=== PATIENT | female | born 1940 | race Caucasian/White ===

== ENCOUNTER 2017-09-25 08:08 | Outpatient (RCR) | payer MEDICARE, OTHER, SELFPAY ==
[2017-09-25 08:54] LABS: AST(SGOT) 23 U/L (15-37); Alanine Aminotransfer ALT/SGPT 28 U/L (13-56); Albumin, Serum 3.4 g/dL (3.2-5.0); Alkaline Phosphatase 61 U/L (45-117); Bilirubin, Direct 0.13 mg/dL (0.00-0.30); Cholesterol 127 mg/dL (200); Globulin 3.4 g/dL (2.2-4.2); High Density Lipoprotein 52 mg/dL; Protein, Total 6.8 g/dL (6.4-8.2); Triglycerides 181 mg/dL; Very Low Density Lipoprotein 36 mg/dL (5-40)
== END 2017-09-25 09:00 | disposition home or self-care (01) ==
LOC: LAB 08:08
PROVIDERS: Family Provider Family Medicine; PCP Family Medicine; Visit Provider Internal Medicine Cardiovascular Disease
DX: E78.5 Hyperlipidemia, unspecified (principal); Z79.899 Other long term (current) drug therapy
CPT/HCPCS: 36415; 80061; 80076

== ENCOUNTER → 2018-04-02 07:56 | Outpatient (CLI) | payer MEDICARE, OTHER, SELFPAY ==
[2018-04-02 09:03] LABS: AST(SGOT) 22 U/L (15-37); Alanine Aminotransfer ALT/SGPT 29 U/L (13-56); Albumin, Serum 3.4 g/dL (3.2-5.0); Alkaline Phosphatase 55 U/L (45-117); Bilirubin, Direct 0.14 mg/dL (0.00-0.30); Cholesterol 119 mg/dL (200); Globulin 3.1 g/dL (2.2-4.2); High Density Lipoprotein 54 mg/dL; Protein, Total 6.5 g/dL (6.4-8.2); Triglycerides 173 mg/dL; Very Low Density Lipoprotein 35 mg/dL (5-40)
== END ==
PROVIDERS: Family Provider Family Medicine; PCP Family Medicine; Referring Provider Internal Medicine Cardiovascular Disease; Visit Provider Internal Medicine Cardiovascular Disease
DX: E78.5 Hyperlipidemia, unspecified (principal)
CPT/HCPCS: 36415; 80061; 80076

== ENCOUNTER 2018-05-19 09:49 | Inpatient (IN) | payer MEDICARE, OTHER, SELFPAY ==
[2018-05-19] VITALS (12 sets, daily range): BP systolic 117–160; BP diastolic 43–78; PULSE 67–89; RESP 16–23; TEMP 36.7–38.6; O2SAT 89–95; BMI 34.3; BMI 37.5; BMI 37.6
--- NOTE | 2018-05-19 10:48 | RAD_ITS ---
STUDY: X-RAY CHEST REASON FOR EXAM: Female, 77 years old. Fever, UTI TECHNIQUE: AP COMPARISON: 11/21/2015 FINDINGS: The lungs are clear and expanded. There is no demonstrated pleural abnormality. There is mild cardiac enlargement. Sternal wires and mediastinal surgical clips compatible with prior CABG. Normal visualized pulmonary arteries. There is atherosclerotic calcification of the aortic arch with tortuosity. No acute bony process. There is no demonstrated abnormality of the visualized soft tissue structures of the upper abdomen. RAD/Chest 1 View (Portable) IMPRESSION: 1. No acute cardiopulmonary process. 2. Mild cardiomegaly. CABG. Electronically Signed: Nasim Cates MD at 11:09 EST , Service support ,
[2018-05-19 10:50] LABS: Absolute Lymphocyte Count 0.46 X10^3/ul (0.83-4.51); Absolute Neutrophil Count 9.7 X10^3/uL (2.0-7.7); Basophil# 0.01 X10^3/uL; Basophil% 0.1 % (0-1); Differential Indicated SCAN CRITERIA MET; Hematocrit 44.3 % (37-47); Hemoglobin 14.2 g/dl (12.0-15.0); Lymphocyte # 0.46 X10^3/ul (4.0); Lymphocyte % 4.5 % (19-41); Mean Corp Hgb Conc 32.1 g/gl (32-36); Mean Corpuscular Hgb 27.5 pg (27.0-32.0); Mean Corpuscular Volume 85.9 fL (81-99); Mean Platelet Vol. 11.3 fl (6.2-12.0); Neutrophil # 9.71 X10^3/uL (2.7-7.7); Neutrophil % 94.2 % (47-70); POSITIVE COUNT NO; POSITIVE DIFFERENTIAL YES; POSITIVE MORPHOLOGY NO; Platelet Count 200 K/mm3 (150-450); RBC Distribution Width CV 13.5 % (11.6-14.6); RBC Distribution Width SD 41.9 fl (35.1-43.9); Red Blood Count 5.16 M/mm3 (4.2-5.4); White Blood Count 10.3 K/mm3 (4.4-11.0)
[2018-05-19 10:52] LABS: International Normalized Ratio 2.9; Prothrombin Time (Protime)PT. 30.5 SECONDS (11.7-14.9)
[2018-05-19] MEDS: Ondansetron 4 MG/2 ML Vial IV (10:55)
[2018-05-19 11:09] LABS: Anion Gap 9 (5-15); BUN 21 mg/dL (7-18); BUN/Creat Ratio 20.2 RATIO (10-20); Calcium,Total 9.1 mg/dL (8.5-10.1); Chloride 107 mmol/L (98-107); Creatinine, Serum 1.04 mg/dL (0.55-1.02); EST Glomerular Filtration Rate 55 mL/min (>60); Est Glom Filt Rate - Afr Amer 66 mL/min (>60); Estimated Creatinine Clearance 39.12 ml/min; Glucose 111 mg/dL (74-106); Potassium 3.1 mmol/L (3.5-5.1); Sodium Level 142 mmol/L (136-145)
--- NOTE | 2018-05-19 11:22 | ED.VISSUMM ---
- ER Visit Summary Date of Service: 05/19/18 Chief Complaint: Generalized weakness History of Present Illness: The patient is a 77 F presenting with generalized weakness and fatigue. Patient went to urgent care this morning and sent into the ED for further evaluation. She was found to have a infection in urine at urgent care and was sent due to concern for pyelonephritis. She had a temperature up to 102.4 at urgent care. She complains of lower back pain. She has generalized weakness and fatigue. She has nausea. She has had diarrhea. She has shortness of breath and nonproductive cough. She denies chest pain. Physical Examination: Vitals are stable. Patient is afebrile. 89% on room air. Alert no acute distress. HEENT exam dry mucous membranes. Neck is supple. Lungs are clear and equal bilaterally. Heart is regular rate and rhythm. Abdomen is soft nontender nondistended. Back: right CVA tenderness Extremities are unremarkable. Skin is warm and dry. No focal neurologic deficit. Remainder of exam is unremarkable. Emergency Department Course and Treatment: Chest x-ray shows no acute process. EKG is sinus rate of 81 with LVH. CBC unremarkable. Chemistries show potassium 3.1, glucose 111, BUN 21, creatinine 1.04. INR is 2.9. Influenza negative. Lactic acid 2.5. She was given IV fluids. Urine culture was sent. She was given Rocephin IV. Discussed with the hospitalist for admission. Disposition: Admission Impression: Pyelonephritis This note was generated with [employer] dictation software. It may contain incorrect words, spelling, and punctuation that were not noted in review of the chart prior to signing ED Disposition - Plan for ED Patient: Chief Complaint: Complaint Referrals: Rolf Reyes MD [Primary Care Provider] -
[2018-05-19 11:40] LABS: Lactic Acid 2.5 mmol/L (0.4-2.0)
--- NOTE | 2018-05-19 11:40 | ED.RN ---
Lactic acid level of 2.5 called to this nurse from [facility] in lab. Dr Shayne carr.
[2018-05-19 11:51] LABS: Mucous, Urine 0 SEEN /hpf (<or=2+); Squamous Epithelial Cells - UA 0 SEEN /hpf (5-10)
[2018-05-19 11:52] LABS: Color, Urine Yellow (Yellow); Glucose, Dipstick Normal (Normal); Ketone-Dipstick Negative (Negative); Leukocyte Esterase-Dipstick 500 /ul (Negative); Nitrite-Dipstick Positive (Negative); Occult Blood-Urine 250 /ul (Negative); Protein-Dipstick 30 mg/dl (Negative); Urine Bilirubin Dipstick Negative (Negative); Urine Clarity Sl. Cloudy (Clear); Urine Urobilinogen Normal (Normal)
[2018-05-19 12:00] LABS: Bacteria 2+ /hpf (None Seen); Red Blood Cells-Urine 5-10 SEEN /hpf (0-5); White Blood Cells >100 SEEN /hpf (0-5)
[2018-05-19] MEDS: 0.9% Normal Saline 1,000 ML 999 ML IV (13:02)
[2018-05-19] MEDS: Ceftriaxone 1 GM/50 ML BAG IV (13:02)
--- NOTE | 2018-05-19 13:47 | HP.PCM_ITS ---
Problem List (1) Left-sided pyelonephritis Status: Acute (2) History of acute myocardial infarction of anterolateral wall Status: Chronic (3) History of pulmonary embolism Status: Chronic (4) History of DVT (deep vein thrombosis) Status: Chronic (5) Stented coronary artery Status: Chronic Comment: PTCA LAD X w stents 03/06/06, 10/18/07 (6) Paroxysmal atrial fibrillation Status: Chronic (7) Atherosclerotic heart disease of [place] coronary artery without angina pectoris Status: Chronic Qualifiers: Comment: S/P bypass surgery in 1999 with PATINO to LAD and SVG to diagonal; stenting x2 to LAD in February 2006 and September 2007; (8) H/O coronary artery bypass surgery Status: Chronic Comment: CABG PATINO graft LAD, pericardial drainage/window for pericardial effusion March 2000, saphenous vein graft to Diag 26 February 2000 (9) Ovarian cancer Status: Chronic (10) Wide-complex tachycardia Status: Chronic (11) Hypertension Status: Chronic Qualifiers: (12) GERD (gastroesophageal reflux disease) Status: Chronic (13) Hypothyroid Status: Chronic (14) Hyperlipidemia Status: Chronic Qualifiers: History of Present Illness Date of Admission: 05/19/18 Chief Complaint: Left-sided flank pain for about 3 days The patient is a 77 year old F with history of coronary artery disease status post CABG and stent, EF 65% as per stress echo on September 2015 paroxysmal A. fib on Coumadin came to ER with left-sided flank pain for 2-3 days. She also complains of burning micturition, increased frequency and urgency and dribbling of urine for about 2-3 days although she has chronic urinary incontinence. She went to urgent care today and was temperature noted 102.4 Fahrenheit. She has nausea but denies vomiting. She has mild shortness of breath and a chronic nonproductive cough mostly secondary to COPD. She has about 40 pack years of smoking and chronic cough for more than 6 months. Pulse ox in ER 89% on room air, 93% on 2 L of oxygen EKG shows normal sinus rhythm at 81 bpm with LVH and repolarization abnormality. Chest x-ray no acute abnormality [] Past Medical History Past Medical History (Chronic Problems): Chronic Problems (Last Reviewed 02/11/18 @ 13:42 by Alina Harris) 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) History of pulmonary embolism (Chronic) History of DVT (deep vein thrombosis) (Chronic) Stented coronary artery (Chronic 10/18/07) PTCA LAD X w stents 03/06/06, 10/18/07 Paroxysmal atrial fibrillation (Chronic) Atherosclerotic heart disease of [place] coronary artery without angina pectoris (Chronic) S/P bypass surgery in 1999 with PATINO to LAD and SVG to diagonal; stenting x2 to LAD in February 2006 and September 2007; H/O coronary artery bypass surgery (Chronic) CABG PATINO graft LAD, pericardial drainage/window for pericardial effusion March 2000, saphenous vein graft to Diag 26 February 2000 Ovarian cancer (Chronic) Wide-complex tachycardia (Chronic) Hypertension (Chronic) GERD (gastroesophageal reflux disease) (Chronic) Hypothyroid (Chronic) Hyperlipidemia (Chronic) Medical History: Medical History (Last Reviewed 02/11/18 @ 13:42 by Alina Harris) History of acute myocardial infarction of anterolateral wall (Chronic) Onset Date: 02/2000 I25.2 History of pulmonary embolism (Chronic) Z86.711 History of DVT (deep vein thrombosis) (Chronic) Z86.718 Paroxysmal atrial fibrillation (Chronic) I48.0 Atherosclerotic heart disease of [place] coronary artery without angina pectoris (Chronic) I25.10 S/P bypass surgery in 1999 with PATINO to LAD and SVG to diagonal; stenting x2 to LAD in February 2006 and September 2007; Wide-complex tachycardia (Chronic) I47.2 Hypertension (Chronic) I10 GERD (gastroesophageal reflux disease) (Chronic) K21.9 Hypothyroid (Chronic) E03.9 Hyperlipidemia (Chronic) E78.5 History of hysterectomy Z98.890, Z90.710 Other intermediate (current) drug therapy Z79.899 Ovarian cancer C56.9 Stress incontinence N39.3 ivc filter retreval Abnormal dobutamine stress echocardiogram R94.39 DVT (deep venous thrombosis) I82.409 Dyspnea on exertion (Resolved) R06.09 Pericardial effusion I31.3 s/p CABG march 2000 Pulmonary emboli (Resolved) I26.99 Allergies streptokinase [Streptokinase] Allergy (Verified 05/19/18 10:07) Hives Home Medications: Ambulatory Orders Medication Instructions Recorded Aspirin E.C. [Ecotrin] 81 mg PO DAILY@0800 04/03/13 Nitroglycerin [Nitrostat] 0.4 mg SUBLINGUAL Q5M PRN 04/03/13 Calcium (Elemental) [Os-Shalom 500] 500 mg PO BID 01/28/14 Sucralfate [Carafate] 1 gm PO 4X/DAY 01/28/14 Albuterol IH (ProAir) [Proair Hfa] 2 puff INHALATION Q6H PRN 11/09/15 ergocalciferol (vitamin D2) 50,000 50,000 unit PO QWEEK 07/17/17 unit capsule niacin ER 500 mg tablet,extended 500 mg PO BID #60 tab 10/19/17 release 24 hr ramipril 10 mg capsule 20 mg PO DAILY #60 cap 12/14/17 rosuvastatin 40 mg tablet 40 mg PO QHS #30 tab 12/14/17 atenolol 50 mg tablet 50 mg PO BID #60 tab 02/01/18 hydrochlorothiazide 12.5 mg capsule 12.5 mg PO DAILY #90 cap 02/11/18 warfarin 5 mg tablet 5 mg PO .COMPLEX 02/11/18 Lansoprazole [Prevacid] 30 mg PO DAILY 05/19/18 Levothyroxine [Synthroid] 112 mcg PO DAILY 05/19/18 [place]-3 Acid Ethyl Esters [Lovaza] 2 cap PO DAILY 05/19/18 Surgical History: Surgical History (Last Reviewed 02/11/18 @ 13:42 by Alina Harris) Stented coronary artery (Chronic) Onset Date: 10/18/07 Z95.5 PTCA LAD X w stents 03/06/06, 10/18/07 H/O coronary artery bypass surgery (Chronic) Z95.1 CABG PATINO graft LAD, pericardial drainage/window for pericardial effusion March 2000, saphenous vein graft to Diag 26 February 2000 History of back surgery Z98.890 History of thyroidectomy E89.0 Hx of appendectomy Z98.890, Z90.49 Smoking Status: Former smoker - *Family History Paternal Family History: Family History (Last Reviewed 02/11/18 @ 13:42 by Alina Harris) Brother Hypertension Cancer Mother CVA (cerebral vascular accident) Review of Systems Constitutional: Denies: Chills, Fever, Weight Change HEENT: Denies: Head Aches, Sinus Congestion, Sinus Drainage Cardiovascular: Denies: Chest Pain, Palpitations Respiratory: Reports: Cough, Shortness of Breath, Shortness of breath upon exertion. Denies: Shortness of breath at rest, Sputum production Gastrointestinal: Reports: Abdominal Pain, Nausea, - - Left flank pain. Denies: Vomiting Genitourinary: Reports: Dysuria, Frequency, Incontinence, Urgency Musculoskeletal: Reports: Back Pain, Joint Pain. Denies: Joint Tenderness Skin: Denies: Rash, Wounds Neurological: Denies: Numbness, Tingling, Focal weakness Psychiatric: Denies: Anxiety, Depression, Homicidal Ideations, Suicidal Ideations Hematologic/ Lymphatic: Denies: Easy Bruising, Easy Bleeding VTE Information - Inpt Only VTE Present on Admission: No Reason prophylaxis not ordered:: Procedure Not Indicated - On Coumadin Patient Problems: Active and Suspected Problems (Last Reviewed 02/11/18 @ 13:42 by Alina Harris) Left-sided pyelonephritis (Acute) - Physical Exam General: Alert, Oriented x3, Cooperative HEENT: Atraumatic, PERRLA, EOMI, Normocephalic Neck: Supple, No JVD, Negative Carotid Bruits Lungs: Clear to auscultation, No rales, Diminished, Rhonchi Cardiovascular: Normal S1, Normal S2, No murmurs, Irregular Rate, - - Multiple PVCs Abdomen: Bowel Sounds Present, Soft, Non-Distended, Tender - Tenderness over left renal angle and left flank. No guarding/rigidity Extremities: Capillary Refill Less than 3 Seconds, Edema Skin: No rashes, No breakdown Musculoskeletal: No Tenderness to Palpation of Joints or Extremities, Arthritic Changes, Muscle Wasting Neurological: Cranial nerves II-XII grossly intact Psych/Mental Status: Normal Affect, Appropriate Vital Signs Temp Pulse Resp BP Pulse Ox 98.1 F 71 18 137/71 H 93 05/19/18 13:30 05/19/18 13:30 05/19/18 13:30 05/19/18 10:53 05/19/18 13:30 Oxygen Flow Rate (L/min) 2 Oxygen Delivery Method Nasal Cannula Weight: 200 lb Body Mass Index (BMI) 34.3 Microbiology Past 72 Hours 05/19/18 10:55 Influenza Types A,B Direct FA ([facility]) - Final Mucosa - Nose Laboratory Tests Past 24 Hrs 05/19/18 05/19/18 05/19/18 10:34 10:34 10:34 WBC 10.3 RBC 5.16 Hgb 14.2 Hct 44.3 MCV 85.9 MCH 27.5 MCHC 32.1 RDW 13.5 RDW Differential 41.9 Plt Count 200 MPV 11.3 Immature Gran % (Auto) 0.200 Neut % (Auto) 94.2 H Lymph % (Auto) 4.5 L [place] % (Auto) 1.0 Eos % (Auto) 0.0 Baso % (Auto) 0.1 Absolute Neuts (auto) 9.7 H Absolute Lymphs (auto) 0.46 L Total Counted Not Reportable PT 30.5 H INR 2.9 Sodium 142 Potassium 3.1 L Chloride 107 Carbon Dioxide 26.0 Anion Gap 9 BUN 21 H Creatinine 1.04 H Estim Creat Clear Calc 39.12 Est GFR (MDRD) Af Amer 66 Est GFR (MDRD) Non-Af 55 L BUN/Creatinine Ratio 20.2 H Glucose 111 H Lactic Acid Calcium 9.1 Urine Color Urine Clarity Urine pH Ur Specific [place] Urine Protein Urine Glucose (UA) Urine Ketones Urine Occult Blood Urine Nitrite Urine Bilirubin Urine Urobilinogen Ur Leukocyte Esterase Urine RBC Urine WBC Ur Squamous Epith Cells Urine Bacteria Urine Mucus 05/19/18 05/19/18 10:34 11:45 WBC RBC Hgb Hct MCV MCH MCHC RDW RDW Differential Plt Count MPV Immature Gran % (Auto) Neut % (Auto) Lymph % (Auto) [place] % (Auto) Eos % (Auto) Baso % (Auto) Absolute Neuts (auto) Absolute Lymphs (auto) Total Counted PT INR Sodium Potassium Chloride Carbon Dioxide Anion Gap BUN Creatinine Estim Creat Clear Calc Est GFR (MDRD) Af Amer Est GFR (MDRD) Non-Af BUN/Creatinine Ratio Glucose Lactic Acid 2.5 H Calcium Urine Color Yellow Urine Clarity Sl. Cloudy Urine pH 6.0 Ur Specific [place] 1.010 Urine Protein 30 H Urine Glucose (UA) Normal Urine Ketones Negative Urine Occult Blood 250 H Urine Nitrite Positive H Urine Bilirubin Negative Urine Urobilinogen Normal Ur Leukocyte Esterase 500 H Urine RBC 5-10 SEEN Urine WBC >100 SEEN Ur Squamous Epith Cells 0 SEEN Urine Bacteria 2+ Urine Mucus 0 SEEN Assessment/Plan All Active Problems (Last Reviewed 02/11/18 @ 13:42 by Alina Harris) Left-sided pyelonephritis (Acute) Dyspnea on exertion (Resolved) Pulmonary emboli (Resolved) The patient is a 77 year old F with history of coronary artery disease status post CABG and stent, EF 65% as per stress echo on September 2015 paroxysmal A. fib on Coumadin came to ER with left-sided flank pain for 2-3 days. She also complains of burning micturition, increased frequency and urgency and dribbling of urine for about 2-3 days although she has chronic urinary incontinence. She went to urgent care today and was temperature noted 102.4 Fahrenheit. She has nausea but denies vomiting. She has mild shortness of breath and a chronic nonproductive cough mostly secondary to COPD. She has about 40 pack years of smoking and chronic cough for more than 6 months. Pulse ox in ER 89% on room air, 93% on 2 L of oxygen EKG shows normal sinus rhythm at 81 bpm with LVH and repolarization abnormality. Chest x-ray no acute abnormality. UA shows WBC more than 100 cells, bacteria 2+, LE and nitrite positive. Lactic acid 2.5 1. Severe sepsis secondary to left-sided pyelonephritis: Patient is being admitted on regular MedSurg floor. On IV fluid normal saline. Started on IV ceftriaxone. Monitor intake and output. Kidneys and bladder ultrasound tomorrow a.m. Urine culture and blood cultures ordered. Repeat lactic acid. 2. COPD: Continue bronchodilator every 6 hourly. At home, patient is on pro- air inhaler but no maintenance inhaler. Patient was suggested outpatient PFT in 3-4 weeks and maintenance inhaler. 3. Acute hypoxic respiratory failure secondary to COPD exacerbation: Patient pulse ox was 89% on room air with respiratory rate 23. Influenza test is negative. Chest x-ray shows chronic interstitial prominence but no acute infiltrate. Wean oxygen gradually. He also suspicion of possible obstructive sleep apnea with regard to morbid obesity. Outpatient sleep study. 4. Coronary artery status post CABG and stents: Continue cardiac medication. Patient had last stress test and then subsequent cardiac cath in October 2015. EF was noted 65%. Medical management was recommended at that time. Her web[employer] consultant is Dr. Gorman. 5. Other cardiovascular conditions: paroxysmal A. Fib, PVCs and history of wide-complex tachycardia, history of DVT and PE on Coumadin: INR is 2.9. Repeat INR tomorrow a.m. hold Coumadin if INR more than 2.5. 6. Hypothyroidism, dyslipidemia and morbid obesity: Multiple comorbidities complicates the present care and expect difficult and delay recovery Microbiology Past 72 Hours 05/19/18 10:55 Mucosa - Nose Influenza Types A,B Direct FA ([facility]) - Final Laboratory Results 05/19/18 10:34: WBC 10.3, RBC 5.16, Hgb 14.2, Hct 44.3, MCV 85.9, MCH 27.5, MCHC 32.1, RDW 13.5, RDW Differential 41.9, Plt Count 200, MPV 11.3, Immature Gran % (Auto) 0.200, Neut % (Auto) 94.2 H, Lymph % (Auto) 4.5 L, [place] % (Auto) 1.0, Eos % (Auto) 0.0, Baso % (Auto) 0.1, Absolute Neuts (auto) 9.7 H, Absolute Lymphs (auto) 0.46 L, Total Counted Not Reportable 05/19/18 10:34: PT 30.5 H, INR 2.9 05/19/18 10:34: Sodium 142, Potassium 3.1 L, Chloride 107, Carbon Dioxide 26.0, Anion Gap 9, BUN 21 H, Creatinine 1.04 H, Estim Creat Clear Calc 39.12, Est GFR (MDRD) Af Amer 66, Est GFR (MDRD) Non-Af 55 L, BUN/Creatinine Ratio 20.2 H, Glucose 111 H, Calcium 9.1 05/19/18 10:34: Lactic Acid 2.5 H 05/19/18 11:45: Urine Color Yellow, Urine Clarity Sl. Cloudy, Urine pH 6.0, Ur Specific [place] 1.010, Urine Protein 30 H, Urine Glucose (UA) Normal, Urine Ketones Negative, Urine Occult Blood 250 H, Urine Nitrite Positive H, Urine Bilirubin Negative, Urine Urobilinogen Normal, Ur Leukocyte Esterase 500 H, Urine RBC 5-10 SEEN, Urine WBC >100 SEEN, Ur Squamous Epith Cells 0 SEEN, Urine Bacteria 2+, Urine Mucus 0 SEEN Clinical Impression(s) from Imaging Studies Chest X-Ray 05/19/18 10:48 IMPRESSION: 1. No acute cardiopulmonary process. 2. Mild cardiomegaly. CABG. Code Visit Inpatient E&M: 01296 Init Hosp L3
[2018-05-19] MEDS: 0.9% Normal Saline 1,000 ML 75 ML IV (14:33)
[2018-05-19 14:38] LABS: Reflex Lactate? Y
[2018-05-19] MEDS: Sucralfate 1 GM Tablet PO ×2 (15:08→20:47)
[2018-05-19] MEDS: Calcium (Elemental) 500 MG Tablet PO (15:08)
[2018-05-19 15:57] LABS: Lactic Acid 2.3 mmol/L (0.4-2.0)
[2018-05-19] MEDS: Atorvastatin Calcium 80 MG Tablet PO (20:46)
[2018-05-19] MEDS: Atenolol 50 MG Tablet PO (20:46)
[2018-05-19] MEDS: Acetaminophen 325 MG Tablet 650 MG PO (20:47)
[2018-05-20] MEDS: 0.9% Normal Saline 1,000 ML 100 ML IV (02:05)
[2018-05-20 02:07] VITALS: BP 123/54; PULSE 66; RESP 20; TEMP 37.7; O2SAT 95
[2018-05-20 02:10] VITALS: PULSE 66; RESP 20; O2SAT 95
[2018-05-20] MEDS: Acetaminophen 325 MG Tablet 650 MG PO (02:53)
[2018-05-20 06:17] LABS: Absolute Lymphocyte Count 0.61 X10^3/ul (0.83-4.51); Absolute Neutrophil Count 9.3 X10^3/uL (2.0-7.7); Basophil# 0.01 X10^3/uL; Basophil% 0.1 % (0-1); Eosinophil# 0.01 X10^3/uL; Eosinophils% 0.1 % (0-5); Hematocrit 37.1 % (37-47); Hemoglobin 11.6 g/dl (12.0-15.0); Lymphocyte # 0.61 X10^3/ul (4.0); Lymphocyte % 5.8 % (19-41); Mean Corp Hgb Conc 31.3 g/gl (32-36); Mean Corpuscular Hgb 27.5 pg (27.0-32.0); Mean Corpuscular Volume 87.9 fL (81-99); Mean Platelet Vol. 11.9 fl (6.2-12.0); Monocyte# 0.55 X10^3/uL; Monocyte% 5.3 % (0-10); Neutrophil # 9.26 X10^3/uL (2.7-7.7); Neutrophil % 88.5 % (47-70); Platelet Count 162 K/mm3 (150-450); RBC Distribution Width CV 13.8 % (11.6-14.6); RBC Distribution Width SD 43.7 fl (35.1-43.9); Red Blood Count 4.22 M/mm3 (4.2-5.4); White Blood Count 10.5 K/mm3 (4.4-11.0)
[2018-05-20 06:18] LABS: International Normalized Ratio 2.6; Prothrombin Time (Protime)PT. 28.2 SECONDS (11.7-14.9)
[2018-05-20 06:28] LABS: POSITIVE COUNT NO; POSITIVE DIFFERENTIAL NO; POSITIVE MORPHOLOGY NO
[2018-05-20 06:30] LABS: Anion Gap 7 (5-15); BUN 21 mg/dL (7-18); BUN/Creat Ratio 24.3 RATIO (10-20); Calcium,Total 7.9 mg/dL (8.5-10.1); Chloride 110 mmol/L (98-107); Creatinine, Serum 0.86 mg/dL (0.55-1.02); EST Glomerular Filtration Rate 68 mL/min (>60); Est Glom Filt Rate - Afr Amer 82 mL/min (>60); Estimated Creatinine Clearance 47.31 ml/min; Glucose 91 mg/dL (74-106); Potassium 3.8 mmol/L (3.5-5.1); Sodium Level 141 mmol/L (136-145)
[2018-05-20] MEDS: Sucralfate 1 GM Tablet PO (06:48)
[2018-05-20] MEDS: Levothyroxine 112 MCG Tablet PO (06:48)
[2018-05-20 08:05] VITALS: BP 104/61; PULSE 60; RESP 18; TEMP 37.1; O2SAT 98
[2018-05-20] MEDS: Omega-3 Acid Ethyl Esters 1 GM Capsule 2 GM PO (08:09)
[2018-05-20] MEDS: Atenolol 50 MG Tablet PO (08:09)
[2018-05-20] MEDS: Aspirin E.C. 81 MG Tablet PO (08:09)
[2018-05-20] MEDS: Pantoprazole Sodium 40 MG Tablet PO (08:09)
[2018-05-20] MEDS: hydroCHLOROthiazide 12.5mg 12.5 MG PO (08:09)
[2018-05-20] MEDS: Ramipril 10 MG Capsule 20 MG PO (08:09)
--- NOTE | 2018-05-20 09:03 | DCINST_ITS ---
- Discharge Diagnoses Current Active Problems: Current Active and Chronic Problems (Last Reviewed 02/11/18 @ 13:42 by Alina Harris) Left-sided pyelonephritis (Acute) You will use the following diet at home:: Cardiac Your food should be the consistency of: Regular Your liquids should be the consistency of: Regular/Thin Discharge Activity: Return to Normal Activity, No Restrictions Call your doctor if you observe: Fever of 101 or Higher, Inability to urinate Pending Tests on Discharge: INR on Sunday or since on antibiotics. Allergies/Adverse Reactions: Allergies streptokinase [Streptokinase] Allergy (Verified 05/19/18 10:07) Hives Medications to take at Discharge Aspirin E.C. [Ecotrin] 81 mg PO DAILY@0800 04/03/13 Nitroglycerin [Nitrostat] 0.4 mg SUBLINGUAL Q5M PRN 04/03/13 Calcium (Elemental) [Os-Shalom 500] 500 mg PO BID 01/28/14 Sucralfate [Carafate] 1 gm PO 4X/DAY 01/28/14 Albuterol IH (ProAir) [Proair Hfa] 2 puff INHALATION Q6H PRN 11/09/15 ergocalciferol (vitamin D2) 50,000 unit capsule 50,000 unit PO QWEEK 07/17/17 niacin ER 500 mg tablet,extended release 24 hr 500 mg PO BID #60 tab 10/19/17 ramipril 10 mg capsule 20 mg PO DAILY #60 cap 12/14/17 rosuvastatin 40 mg tablet 40 mg PO QHS #30 tab 12/14/17 atenolol 50 mg tablet 50 mg PO BID #60 tab 02/01/18 hydrochlorothiazide 12.5 mg capsule 12.5 mg PO DAILY #90 cap 02/11/18 warfarin 5 mg tablet 5 mg PO .COMPLEX 02/11/18 Lansoprazole [Prevacid] 30 mg PO DAILY 05/19/18 Levothyroxine [Synthroid] 112 mcg PO DAILY 05/19/18 [place]-3 Acid Ethyl Esters [Lovaza] 2 cap PO DAILY 05/19/18 Cephalexin [Keflex] 500 mg PO Q6 #20 capsule 05/20/18 The following prescriptions were given: Cephalexin [Keflex] 500 mg PO Q6 #20 capsule Primary Care Physician: Rolf Reyes MD [Primary Care Provider] - Please follow up with your Primary Care Physician in: 3-5 days Test Results: Test results from this visit will be discussed in further detail at your follow- up appointment, if applicable.
--- NOTE | 2018-05-20 09:15 | DS.PCM_ITS ---
Discharge Date and Diagnosis - Problem List Patient Problems: Active and Suspected Problems (Last Reviewed 02/11/18 @ 13:42 by Alina Harris) Left-sided pyelonephritis (Acute) Date of Admission: 05/19/18 Date of Discharge: 05/20/18 - Primary Discharge Diagnosis Active and Suspected Problems (Last Reviewed 02/11/18 @ 13:42 by Alina Harris) Left-sided pyelonephritis (Acute) - Secondary Discharge Diagnosis Chronic Problems (Last Reviewed 02/11/18 @ 13:42 by Alina Harris) 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) History of pulmonary embolism (Chronic) History of DVT (deep vein thrombosis) (Chronic) Stented coronary artery (Chronic 10/18/07) PTCA LAD X w stents 03/06/06, 10/18/07 Paroxysmal atrial fibrillation (Chronic) Atherosclerotic heart disease of [place] coronary artery without angina pectoris (Chronic) S/P bypass surgery in 1999 with PATINO to LAD and SVG to diagonal; stenting x2 to LAD in February 2006 and September 2007; H/O coronary artery bypass surgery (Chronic) CABG PATINO graft LAD, pericardial drainage/window for pericardial effusion March 2000, saphenous vein graft to Diag 26 February 2000 Ovarian cancer (Chronic) Wide-complex tachycardia (Chronic) Hypertension (Chronic) GERD (gastroesophageal reflux disease) (Chronic) Hypothyroid (Chronic) Hyperlipidemia (Chronic) Hospital Course and Treatment Imaging Results: 05/20/18 05:55 Kidney and Bladder [US] AM (NON MEDS) Consults: None Operations: None Procedures: None Summary of Care Provided: Per HPI: The patient is a 77 year old F with history of coronary artery disease status post CABG and stent, EF 65% as per stress echo on September 2015 paroxysmal A. fib on Coumadin came to ER with left-sided flank pain for 2-3 days. She also complains of burning micturition, increased frequency and urgency and dribbling of urine for about 2-3 days although she has chronic urinary incontinence. She went to urgent care today and was temperature noted 102.4 Fahrenheit. She has nausea but denies vomiting. She has mild shortness of breath and a chronic nonproductive cough mostly secondary to COPD. She has about 40 pack years of smoking and chronic cough for more than 6 months. Pulse ox in ER 89% on room air, 93% on 2 L of oxygen EKG shows normal sinus rhythm at 81 bpm with LVH and repolarization abnormality. Chest x-ray no acute abnormality Vital Signs - 24 hr Temp Pulse Resp BP Pulse Ox 05/20/18 08:05 98.8 F 60 18 104/61 98 05/20/18 02:10 66 20 H 95 05/20/18 02:07 100 F H 66 20 H 123/54 H 95 05/19/18 20:58 83 20 H 95 05/19/18 20:40 101.5 F H 83 20 H 117/43 L 95 05/19/18 16:30 95 05/19/18 15:02 80 05/19/18 14:33 99.0 F 80 18 94 05/19/18 13:30 98.1 F 71 18 93 05/19/18 12:30 98.6 F 67 18 92 05/19/18 11:51 99.4 F H 82 22 H 94 05/19/18 10:53 79 23 H 137/71 H 89 05/19/18 10:50 98.5 F 79 23 H 95 05/19/18 10:04 92 05/19/18 09:50 98.9 F 89 16 160/78 H 95 General: Alert, Oriented x3, Cooperative, No apparent distress HEENT: Atraumatic, EOMI, Normocephalic Oral: Moist Mucosa Neck: Supple, No JVD Lungs: Clear to auscultation, Normal air movement, No rhonchi, No wheeze, No rales Cardiovascular: Regular rate, Regular Rhythm, Normal S1, Normal S2, No murmurs Abdomen: Soft, Non Tender, Non-Distended, No Hepato-splenomegaly Extremities: No edema, Capillary Refill Less than 3 Seconds Skin: No rashes, No breakdown Musculoskeletal: No Tenderness to Palpation of Joints or Extremities Neurological: Cranial nerves II-XII grossly intact, Motor Exam 5/5 strength throughout, Sensory exam intact to light touch and pain Psych/Mental Status: Normal Affect, Appropriate Hospital Course: 1. Sepsis secondary to UTI - On admission she was afebrile until about 8 pm. At that time she became diaphoretic and febrile to 101.5. She was continued on IVF and her lactate was trending down from 2.5 on admission. She was given a dose of rocephin and a urine culture was sent. She currently states that she feels great and has no flank pain, no dysuria, and wants to go home. Prelim urine culture with >100,000 E. coli. Since She is afebrile and has no leukocytosis and states that she wants to go home. I will discharge her on PO keflex and will follow-up her urine culture tomorrow incase a different abx has to be provided. I discussed with her that if she stayed until tomorrow, I would have final urine cultures and we could be sure, but she has a granddaughter flying in whom they do not see often and she would like to go home. I discussed with her the risks of going home and she is ok with it. She understands that she will need to follow-up her INR and she expressed understanding of the plan. She is to return to the hospital if her condition worsens. Of note, she states that she has been diaphoretic most nights for the last few years. 2. Her other diagnoses were assessed and her home medications were continued where appropriate Patient Problems: Active and Suspected Problems (Last Reviewed 02/11/18 @ 13:42 by Alina Harris) Left-sided pyelonephritis (Acute) - Physical Exam Vital Signs Temp Pulse Resp BP Pulse Ox 98.8 F 60 18 104/61 98 05/20/18 08:05 05/20/18 08:05 05/20/18 08:05 05/20/18 08:05 05/20/18 08:05 Oxygen Flow Rate (L/min) 2 Oxygen Delivery Method Room Air Weight: 220 lb 0.341 oz Body Mass Index (BMI) 37.5 Intake and Output for Last 24 Hours 05/18/18 05/19/18 05/20/18 23:59 23:59 23:59 Intake Total 1402 / 1402 954 / 954 Output Total 200 / 200 Balance 1202 / 1202 954 / 954 Microbiology Past 72 Hours 05/19/18 10:55 Influenza Types A,B Direct FA (LUBNA) - Final Mucosa - Nose Laboratory Tests Past 24 Hrs 05/19/18 05/19/18 05/19/18 10:34 10:34 10:34 WBC 10.3 RBC 5.16 Hgb 14.2 Hct 44.3 MCV 85.9 MCH 27.5 MCHC 32.1 RDW 13.5 RDW Differential 41.9 Plt Count 200 MPV 11.3 Immature Gran % (Auto) 0.200 Neut % (Auto) 94.2 H Lymph % (Auto) 4.5 L [place] % (Auto) 1.0 Eos % (Auto) 0.0 Baso % (Auto) 0.1 Absolute Neuts (auto) 9.7 H Absolute Lymphs (auto) 0.46 L Total Counted Not Reportable PT 30.5 H INR 2.9 Sodium 142 Potassium 3.1 L Chloride 107 Carbon Dioxide 26.0 Anion Gap 9 BUN 21 H Creatinine 1.04 H Estim Creat Clear Calc 39.12 Est GFR (MDRD) Af Amer 66 Est GFR (MDRD) Non-Af 55 L BUN/Creatinine Ratio 20.2 H Glucose 111 H Lactic Acid Calcium 9.1 Urine Color Urine Clarity Urine pH Ur Specific [place] Urine Protein Urine Glucose (UA) Urine Ketones Urine Occult Blood Urine Nitrite Urine Bilirubin Urine Urobilinogen Ur Leukocyte Esterase Urine RBC Urine WBC Ur Squamous Epith Cells Urine Bacteria Urine Mucus 05/19/18 05/19/18 05/19/18 10:34 11:45 14:51 WBC RBC Hgb Hct MCV MCH MCHC RDW RDW Differential Plt Count MPV Immature Gran % (Auto) Neut % (Auto) Lymph % (Auto) [place] % (Auto) Eos % (Auto) Baso % (Auto) Absolute Neuts (auto) Absolute Lymphs (auto) Total Counted PT INR Sodium Potassium Chloride Carbon Dioxide Anion Gap BUN Creatinine Estim Creat Clear Calc Est GFR (MDRD) Af Amer Est GFR (MDRD) Non-Af BUN/Creatinine Ratio Glucose Lactic Acid 2.5 H 2.3 H Calcium Urine Color Yellow Urine Clarity Sl. Cloudy Urine pH 6.0 Ur Specific [place] 1.010 Urine Protein 30 H Urine Glucose (UA) Normal Urine Ketones Negative Urine Occult Blood 250 H Urine Nitrite Positive H Urine Bilirubin Negative Urine Urobilinogen Normal Ur Leukocyte Esterase 500 H Urine RBC 5-10 SEEN Urine WBC >100 SEEN Ur Squamous Epith Cells 0 SEEN Urine Bacteria 2+ Urine Mucus 0 SEEN 05/20/18 05/20/18 05/20/18 05:35 05:35 05:35 WBC 10.5 RBC 4.22 Hgb 11.6 L Hct 37.1 MCV 87.9 MCH 27.5 MCHC 31.3 L RDW 13.8 RDW Differential 43.7 Plt Count 162 MPV 11.9 Immature Gran % (Auto) 0.200 Neut % (Auto) 88.5 H Lymph % (Auto) 5.8 L [place] % (Auto) 5.3 Eos % (Auto) 0.1 Baso % (Auto) 0.1 Absolute Neuts (auto) 9.3 H Absolute Lymphs (auto) 0.61 L Total Counted Not Reportable PT 28.2 H INR 2.6 Sodium 141 Potassium 3.8 Chloride 110 H Carbon Dioxide 24.0 Anion Gap 7 BUN 21 H Creatinine 0.86 Estim Creat Clear Calc 47.31 Est GFR (MDRD) Af Amer 82 Est GFR (MDRD) Non-Af 68 BUN/Creatinine Ratio 24.3 H Glucose 91 Lactic Acid Calcium 7.9 L Urine Color Urine Clarity Urine pH Ur Specific [place] Urine Protein Urine Glucose (UA) Urine Ketones Urine Occult Blood Urine Nitrite Urine Bilirubin Urine Urobilinogen Ur Leukocyte Esterase Urine RBC Urine WBC Ur Squamous Epith Cells Urine Bacteria Urine Mucus Discharge Activity: Return to Normal Activity, No Restrictions Call your doctor if you observe: Fever of 101 or Higher, Inability to urinate Home Medications: Medications to take at Discharge Aspirin E.C. [Ecotrin] 81 mg PO DAILY@0800 04/03/13 Nitroglycerin [Nitrostat] 0.4 mg SUBLINGUAL Q5M PRN 04/03/13 Calcium (Elemental) [Os-Shalom 500] 500 mg PO BID 01/28/14 Sucralfate [Carafate] 1 gm PO 4X/DAY 01/28/14 Albuterol IH (ProAir) [Proair Hfa] 2 puff INHALATION Q6H PRN 11/09/15 ergocalciferol (vitamin D2) 50,000 unit capsule 50,000 unit PO QWEEK 07/17/17 niacin ER 500 mg tablet,extended release 24 hr 500 mg PO BID #60 tab 10/19/17 ramipril 10 mg capsule 20 mg PO DAILY #60 cap 12/14/17 rosuvastatin 40 mg tablet 40 mg PO QHS #30 tab 12/14/17 atenolol 50 mg tablet 50 mg PO BID #60 tab 02/01/18 hydrochlorothiazide 12.5 mg capsule 12.5 mg PO DAILY #90 cap 02/11/18 warfarin 5 mg tablet 5 mg PO .COMPLEX 02/11/18 Lansoprazole [Prevacid] 30 mg PO DAILY 05/19/18 Levothyroxine [Synthroid] 112 mcg PO DAILY 05/19/18 [place]-3 Acid Ethyl Esters [Lovaza] 2 cap PO DAILY 05/19/18 Cephalexin [Keflex] 500 mg PO Q6 #20 capsule 05/20/18 Following Prescrptions Were Given to Patient: Cephalexin [Keflex] 500 mg PO Q6 #20 capsule Primary Care Physician: Rolf Reyes MD [Primary Care Provider] - Please follow up with your Primary Care Physician in: 3-5 days Disposition: Home Minutes spent on discharge:: 35 Patient Condition:: Good Medical Necessity - Tobacco Use Smoking Status: Former smoker Meaningful Use Info Meaningful Use Diagnoses (Choose all that apply): None applicable Code Visit Inpatient E&M: 10656 Disch Hosp
[2018-05-20] MEDS: Ceftriaxone 1 GM/50 ML BAG IV (09:22)
--- NOTE | 2018-05-20 09:50 | CASEMGMT ---
RN LIZ Face to Face with patient for initial transition planning/care coordination assessment. RN CM introduced self and role at [facility]. Patient lying in bed, alert and oriented, at bedside. Patient willing to participate in assessment and is able to answer all questions appropriately. Care providers, pharmacy, and demographics verified. Patient wishes to discharge home, denies need for home health at this time. Patient states she has no further needs or concerns at this time. CM to follow for discharge planning needs that may arise. PCP: Amy Specialists: None [facility]erred Pharmacy: [facility] Insurance: [facility] Prescription Benefit: Yes Living Will/HPOA: Yes LNOK: Living Arrangements: Patient lives with in 1 story home with 2 steps to enter home. Patient is independent at home. Transportation: Self/ DME/HHC: Patient has cane, denies further needs Disposition Plan: Patient to discharge home with family support and follow-up plans in place. Monse AGRAWAL, RN, CM
--- NOTE | 2018-05-20 10:42 | CASEMGMT ---
Social Work Note Advanced directives are not on pt's chart. SW met with pt. SW introduced self and role at [facility]. Pt is alert and orientated. Pt confirms that she has completed advanced directives but have not provided [facility] with a copy yet. Pt states that she is able to bring in copies. Monse Chow RN RENAL, PROPOSAL DIRECTOR
--- NOTE | 2018-05-22 11:57 | CASEMGMT ---
[facility] Discharge Follow-up Phone Call: RAUDEL: Grady Strata: 3 Call Date: 05/22/18 Discharge Date: 05/20/18 Time of Call: 1155 Duration: 3 minutes ? Admitting Diagnosis: sepsis due to pyelonephritis This [facility] contacted pt via phone regarding discharge follow-up. Pt states she is feeling much better than she was and reported that she had just had breakfast in [place] with her and had stopped at the store. She has gotten her antibiotic which she is continuing to take, has an appointment to get her blood drawn for her INR check tomorrow and an appointment with Dr. Reyes on Sunday. Pt denies any questions or concerns. Basilia Gayle RN
== END 2018-05-20 11:20 | disposition home or self-care (01) | DRG 871 ==
LOC: ED 11:02 → MS3 13:28
PROVIDERS: Admitting Provider Internal Medicine; Emergency Provider Emergency Medicine; Family Provider Family Medicine; PCP Family Medicine; Visit Provider Family Medicine
DX: A41.9 Sepsis, unspecified organism (principal); J96.01 Acute respiratory failure with hypoxia; J44.1 Chronic obstructive pulmonary disease with (acute) exacerbation; N12 Tubulo-interstitial nephritis, not specified as acute or chronic; R65.20 Severe sepsis without septic shock; Z87.891 Personal history of nicotine dependence; Z86.718 Personal history of other venous thrombosis and embolism; Z86.711 Personal history of pulmonary embolism; E66.01 Morbid (severe) obesity due to excess calories; E78.5 Hyperlipidemia, unspecified; I48.0 Paroxysmal atrial fibrillation; Z95.5 Presence of coronary angioplasty implant and graft; Z95.1 Presence of aortocoronary bypass graft; I25.10 Atherosclerotic heart disease of native coronary artery without angina pectoris; K21.9 Gastro-esophageal reflux disease without esophagitis; I10 Essential (primary) hypertension; B96.20 Unspecified Escherichia coli [E. coli] as the cause of diseases classified elsewhere; I25.2 Old myocardial infarction; Z79.899 Other long term (current) drug therapy; Z68.37 Body mass index [BMI] 37.0-37.9, adult
CPT/HCPCS: 36415; 71045; 80048; 81001; 83605; 85025; 85610; 87040; 87086; 87088; 87186; 87804; 93005; 99283; J7030; J7040; A4216; J2405

== ENCOUNTER → 2018-10-18 08:48 | Outpatient (CLI) | payer MEDICARE, OTHER, SELFPAY ==
[2018-08-26 14:00] VITALS: BMI 37.8
[2018-10-18 10:17] LABS: AST(SGOT) 24 U/L (15-37); Alanine Aminotransfer ALT/SGPT 26 U/L (13-56); Albumin, Serum 3.7 g/dL (3.2-5.0); Alkaline Phosphatase 55 U/L (45-117); Bilirubin, Direct 0.11 mg/dL (0.00-0.30); Cholesterol 136 mg/dL (200); High Density Lipoprotein 52 mg/dL; Protein, Total 6.7 g/dL (6.4-8.2); Triglycerides 191 mg/dL; Very Low Density Lipoprotein 38 mg/dL (5-40)
== END ==
PROVIDERS: Family Provider Family Medicine; PCP Family Medicine; Referring Provider Nurse Practitioner Family; Visit Provider Nurse Practitioner Family
DX: E78.5 Hyperlipidemia, unspecified (principal)
CPT/HCPCS: 36415; 80061; 80076

== ENCOUNTER 2019-01-02 21:22 | Observation (INO) | payer MEDICARE, OTHER, SELFPAY ==
[2018-08-26 14:00] VITALS: BMI 37.8
[2019-01-02 21:24] VITALS: BP 141/75; PULSE 51; RESP 15; TEMP 36.6; O2SAT 94; BMI 38.6
--- NOTE | 2019-01-02 21:34 | EKG12_ITS ---
Test Reason : CHEST PAIN Blood Pressure : / mmHG Vent. Rate : 049 BPM Atrial Rate : 049 BPM P-R Int : 164 ms QRS Dur : 098 ms QT Int : 452 ms P-R-T Axes : 018 002 081 degrees QTc Int : 408 ms Sinus bradycardia Left ventricular hypertrophy with repolarization abnormality Abnormal ECG Confirmed by SOPHIE RABAGO ([id number]), editor department BERNY HUMPHREYS ([id number]) on 01/06/2019 1:19:12 PM Referred By: PADDY Confirmed By:SOPHIE RABAGO
--- NOTE | 2019-01-02 21:39 | ED.VIS.GEN ---
History of Present Illness Chief Complaint: Chest Pain Detail of Chief Complaint: While watching the [employer] game Informant: Patient, Significant Other Onset: Today, Hours Context: Sudden Onset Timing: Continuous Quality: Tight pressure Location: Midsternal Current Severity: Mild Maximum Severity: Severe Worsened by: Nothing Relieved by: 60% reduction after first nitro Associated Symptoms: Nausea, dyspnea and no diaphoresis. Narrative: Patient is a 78-year-old woman with known coronary disease. She is status post two-vessel coronary bypass surgery. She has had 2 stents placed since her bypass surgery. She states this evening was the first time she took nitro. She states she was watching the [employer] game when she developed a midsternal tight heavy crushing sensation with nausea and diaphoresis. Pain was a 9. Pain reduced to a 1:03 nitro. She took aspirin this morning. She denies leg pain, swelling discoloration. She denies orthopnea or PND. She denies hematemesis, melena hematochezia. Prior similar symptoms: Yes Recent Illness/Hospitalization: No - Past Medical History (1) Atherosclerotic heart disease of [place] coronary artery without angina pectoris Status: Chronic Comment: S/P bypass surgery in 1999 with PATINO to LAD and SVG to diagonal; stenting x2 to LAD in February 2006 and September 2007; (2) GERD (gastroesophageal reflux disease) Status: Chronic (3) History of DVT (deep vein thrombosis) Status: Chronic (4) History of acute myocardial infarction of anterolateral wall Status: Chronic (5) History of pulmonary embolism Status: Chronic (6) Hyperlipidemia Status: Chronic (7) Hypertension Status: Chronic (8) Hypothyroid Status: Chronic (9) Ovarian cancer Status: Chronic (10) Paroxysmal atrial fibrillation Status: Chronic (11) Wide-complex tachycardia Status: Chronic Past Medical History - Allergies and Home Meds Allergies/Adverse Reactions: Allergies streptokinase [Streptokinase] Adverse Reaction (Severe, Verified 01/02/19 21:24) Hives Primary Care Physician: Rolf Reyes MD [Primary Care Provider] - Prior records reviewed: Yes Surgical History: coronary bypass surgery Lives: Spouse/ Significant Other Smoking Status: Former smoker Alcohol: None Drugs: None Review of Systems General: Denies: Chills, Fever, Malaise, Subjective, Sweats Eyes: Denies: Visual changes - bilaterally, Blurred Vision - bilaterally, Diplopia ENT: Denies: Rhinorrhea, Sore throat Cardiovascular: Reports: Chest pain. Denies: Palpitations, Heart racing, -, - Respiratory: Reports: Dyspnea. Denies: Cough, Sputum, Dyspnea on exertion, Orthopnea, Paroxysmal nocturnal dyspnea, -, - Gastrointestinal: Denies: Abdominal pain, Nausea, Vomiting, Diarrhea, Melena, Hematochezia Genitourinary: Denies: Dysuria, Hematuria, Frequency Musculoskeletal: Denies: Back pain, Extremity Pain Skin: Denies: Rash, Wounds Neurological: Denies: Headache, Weakness, Numbness Hematologic: Denies: Easy bruising, Easy bleeding Allergy: Denies: Uticaria, Swelling of the mouth Physical Exam Vital Signs/Narrative: Vital Signs Temp Pulse Resp BP Pulse Ox 01/02/19 21:24 97.9 F 51 L 15 141/75 H 94 Inital Vital Signs reviewed: Yes General: Well nourished, Well developed, Obese, No Acute Distress Head: Normocephalic, Atraumatic Eyes: Perrl, EOMI. Negative for: Pale conjunctiva, Scleral icterus, - ENT: Moist mucous membranes, No rhinorrhea Neck: Supple, Nontender. Negative for: No lymphadenopathy, No JVD, - Cardiovascular: Regular rhythm, No murmurs, Normal S1, Normal S2, Bradycardia Respiratory: No distress, CTA bilaterally, Chest nontender Abdomen: Soft, Nontender, Nondistended, Normal bowel sounds, No masses Rectal: Deferred Back: Nontender, Normal Inspection. Negative for: CVA tenderness Extremities: Nontender, No edema. Negative for: Calf Tenderness Skin: Normal color, No rash, No Trauma. Negative for: Cyanosis, Diaphoresis, Jaundice Neurological: Alert, Oriented x3, Cranial nerves II-XII grossly intact, Normal Strength, Normal Sensation Psychological: Normal affect, Normal Mood Diagnostic/Tx/Re-eval Chest X-Ray - ED: 1 View, Read by ED Physician, Normal, Heart, Lungs, Mediastinum, Bony Structures, No Acute Disease Impressions Chest X-Ray 01/02/19 21:50 IMPRESSION: No acute cardiopulmonary process. Electronically Signed: Isabella Suárez MD at 22:04 EDT Tel , Service support , 01/02/19 21:50 Chest 1 View (Portable) [RAD] Stat Laboratory Results 01/02/19 01/02/19 21:40 21:40 WBC 7.3 RBC 4.79 Hgb 13.5 Hct 42.3 MCV 88.3 MCH 28.2 MCHC 31.9 L RDW Std Deviation 42.6 RDW Coeff of [place] 13.1 Plt Count 238 MPV 10.9 Immature Gran % (Auto) 0.400 Neut % (Auto) 50.1 Lymph % (Auto) 37.0 [place] % (Auto) 10.7 H Eos % (Auto) 1.2 Baso % (Auto) 0.6 Absolute Neuts (auto) 3.6 Absolute Lymphs (auto) 2.69 Nucleated RBC % 0 Sodium 141 Potassium 3.5 Chloride 106 Carbon Dioxide 29.0 Anion Gap 6 BUN 15 Creatinine 1.02 Estim Creat Clear Calc 39.25 Est GFR (MDRD) Af Amer 67 Est GFR (MDRD) Non-Af 56 L BUN/Creatinine Ratio 14.7 Glucose 90 Calcium 9.2 Troponin I < 0.015 - Rhythm Strip Rhythm Strip: Sinus Rhythm Rate: 44 Ectopy: None - EKG Initial EKG Interpretation: Sinus Bradycardia - Ventricular rate 49. There is evidence of right ventricular hypertrophy with repolarization. [place] interval is 164 ms. QS duration 98 ms. QT duration 452 ms. QTc is 408 ms. [place] is normal. There is no evidence of acute ischemia. - Medical Decision Making With midsternal crushing tight sensation with significant improvement after nitro and history of coronary disease concerned this represents cardiac ischemia. Also the differential is noncardiac chest pain, GERD, pulmonary embolus especially since she has a history of GERD and pulmonary embolus. Would not expect pain to improve with nitro if pulmonary embolus. May have improvement with esophageal spasm. Nitro series was ordered. Aspirin was not ordered since she took aspirin this morning. Patient reports relief after nitro series. 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 Luis Fernando Gorman ED Disposition - Plan for ED Patient: Disposition: Acute Care Hospital [facility] Diagnosis: Chest pain due to CAD, Atherosclerotic heart disease of [place] coronary artery without angina pectoris, Hyperlipidemia, Hypertension Referrals: Rolf Reyes MD [Primary Care Provider] -
[2019-01-02] MEDS: Nitroglycerin SL (ED/IMG/CATH) 0.4 MG TABLET SUBLINGUAL (21:43)
[2019-01-02 21:48] LABS: Absolute Lymphocyte Count 2.69 X10^3/uL (0.83-4.51); Absolute Neutrophil Count 3.6 X10^3/uL (2.0-7.7); Basophil# 0.04 X10^3/uL; Basophil% 0.6 % (0-1); Eosinophil# 0.09 X10^3/uL; Eosinophils% 1.2 % (0-5); Hematocrit 42.3 % (37-47); Hemoglobin 13.5 g/dL (12.0-15.0); Lymphocyte # 2.69 X10^3/ul (4.0); Mean Corp Hgb Conc 31.9 g/dL (32-36); Mean Corpuscular Hgb 28.2 pg (27.0-32.0); Mean Corpuscular Volume 88.3 fL (81-99); Mean Platelet Vol. 10.9 fl (6.2-12.0); Monocyte# 0.78 X10^3/uL; Monocyte% 10.7 % (0-10); NRBC Flagged by Analyzer 0 % (0-5); Neutrophil # 3.64 X10^3/uL (2.7-7.7); Neutrophil % 50.1 % (47-70); Platelet Count 238 K/mm3 (150-450); RBC Distribution Width CV 13.1 % (11.6-14.6); RBC Distribution Width SD 42.6 fl (35.1-43.9); Red Blood Count 4.79 M/mm3 (4.2-5.4); White Blood Count 7.3 K/mm3 (4.4-11.0)
--- NOTE | 2019-01-02 21:50 | RAD_ITS ---
STUDY: X-RAY CHEST REASON FOR EXAM: Female, 78 years old. Chest pain. TECHNIQUE: Single frontal view of the chest. COMPARISON: October 28, 2015 and May 19, 2018 FINDINGS: There is no new focal consolidation. Sternal cerclage wires and vascular clips are present from a prior sternotomy and coronary artery bypass graft procedure (CABG). The cardiac silhouette is stable and within normal limits. Normal mediastinum and bertha. Normal visualized pulmonary arteries. Normal visualized aortic arch and descending thoracic aorta. Normal visualized thoracic spine. Normal visualized ribs, clavicles, and shoulders. There is no demonstrated abnormality of the visualized soft tissue structures of the upper abdomen. RAD/Chest 1 View (Portable) IMPRESSION: No acute cardiopulmonary process. Electronically Signed: Isabella Suárez MD at 22:04 EDT Tel , Service support ,
--- NOTE | 2019-01-02 21:50 | ED.RN ---
PT HAD ONE DOSE OF NITRO AT HOME. AFTER ADMINISTERING ONE DOSE, PT RATES CP 0/10. ADDISITONAL DOSE NOT GIVEN.
[2019-01-02 22:05] LABS: Anion Gap 6 (5-15); BUN 15 mg/dL (7-18); BUN/Creat Ratio 14.7 RATIO (10-20); Calcium,Total 9.2 mg/dL (8.5-10.1); Chloride 106 mmol/L (98-107); Creatinine, Serum 1.02 mg/dL (0.55-1.02); EST Glomerular Filtration Rate 56 mL/min (>60); Est Glom Filt Rate - Afr Amer 67 mL/min (>60); Estimated Creatinine Clearance 39.25 ml/min; Glucose 90 mg/dL (74-106); Potassium 3.5 mmol/L (3.5-5.1); Sodium Level 141 mmol/L (136-145)
--- NOTE | 2019-01-02 22:33 | PCM.HP.STD ---
Problem List (1) Chest pain Status: Acute History of Present Illness Date of Admission: 01/02/19 Chief Complaint: chest pain The patient is a 78 year old F with a significant history of previous tobacco abuse; double vessel CABG in 1999 and 2 coronary stents later on; DVT and PE with a prior IVC filter, and on current anticoagulation; paroxysmal A. fib; hypertension; and GERD who presented to the emergency department with excruciating substernal chest pain that started when she was about to watch TV. She described the pain as tight. She took nitroglycerin which helped the pain. Reportedly she has not taken nitroglycerin since the year 1999. Also the emergency department she was given nitroglycerin that helped with the pain. She denies any aggravating factor. She reports nausea without vomiting. She denies diaphoresis. She reported shortness of breath with her chest pain. Her chest pain radiated to her left shoulder. Past Medical History Past Medical History (Chronic Problems): Chronic Problems (Last Reviewed 01/02/19 @ 23:32 by Matias Carranza MD) Ovarian cancer (Chronic) 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) History of pulmonary embolism (Chronic) History of DVT (deep vein thrombosis) (Chronic) Stented coronary artery (Chronic 10/18/07) PTCA LAD X w stents 03/06/06, 10/18/07 Paroxysmal atrial fibrillation (Chronic) Atherosclerotic heart disease of [place] coronary artery without angina pectoris (Chronic) S/P bypass surgery in 1999 with PATINO to LAD and SVG to diagonal; stenting x2 to LAD in February 2006 and September 2007; H/O coronary artery bypass surgery (Chronic) CABG PATINO graft LAD, pericardial drainage/window for pericardial effusion March 2000, saphenous vein graft to Diag 26 February 2000 Wide-complex tachycardia (Chronic) Hypertension (Chronic) GERD (gastroesophageal reflux disease) (Chronic) Hypothyroid (Chronic) Hyperlipidemia (Chronic) Medical History: Medical History (Last Reviewed 01/03/19 @ 00:21 by Matias Carranza MD) History of acute myocardial infarction of anterolateral wall (Chronic) Onset Date: 02/2000 I25.2 History of pulmonary embolism (Chronic) Z86.711 History of DVT (deep vein thrombosis) (Chronic) Z86.718 Paroxysmal atrial fibrillation (Chronic) I48.0 Atherosclerotic heart disease of [place] coronary artery without angina pectoris (Chronic) I25.10 S/P bypass surgery in 1999 with PATINO to LAD and SVG to diagonal; stenting x2 to LAD in February 2006 and September 2007; Wide-complex tachycardia (Chronic) I47.2 Hypertension (Chronic) I10 GERD (gastroesophageal reflux disease) (Chronic) K21.9 Hypothyroid (Chronic) E03.9 Hyperlipidemia (Chronic) E78.5 History of hysterectomy Z98.890, Z90.710 Other intermediate frame tender (current) drug therapy Z79.899 Ovarian cancer C56.9 Stress incontinence N39.3 ivc filter retreval Abnormal dobutamine stress echocardiogram R94.39 DVT (deep venous thrombosis) I82.409 Dyspnea on exertion (Resolved) R06.09 Pericardial effusion I31.3 s/p CABG march 2000 Pulmonary emboli (Resolved) I26.99 UTI (urinary tract infection) N39.0 Allergies streptokinase [Streptokinase] Adverse Reaction (Severe, Verified 01/02/19 21:24) Hives Home Medications: Ambulatory Orders Medication Instructions Recorded Aspirin E.C. [Ecotrin] 81 mg PO DAILY@0800 04/03/13 Nitroglycerin (INPATIENT USE) 0.4 mg SUBLINGUAL Q5M PRN 04/03/13 [Nitrostat] Sucralfate [Carafate] 1 gm PO TID 01/28/14 Albuterol IH (ProAir) [Proair Hfa] 2 puff INHALATION Q6H PRN 11/09/15 atenolol 50 mg tablet 50 mg PO BID #60 tab 02/01/18 hydrochlorothiazide 12.5 mg capsule 12.5 mg PO DAILY #90 cap 02/11/18 warfarin 5 mg tablet 5 mg PO SUMOTUWEFRSA 02/11/18 Levothyroxine [Synthroid] 100 mcg PO DAILY 05/19/18 calcium carbonate-vitamin D3 250 1 tab PO DAILY tab 08/26/18 mg-125 unit tablet cholecalciferol (vitamin D3) 50,000 unit PO QWEEK 08/26/18 50,000 unit capsule niacin ER 500 mg tablet,extended 500 mg PO BID #60 tab 11/04/18 release 24 hr ramipril 10 mg capsule 20 mg PO DAILY #60 cap 11/15/18 omega-3 acid ethyl esters 1 gram 1 cap PO BID #60 cap 12/18/18 capsule rosuvastatin 40 mg tablet 40 mg PO QHS #30 tab 12/18/18 Calcium Carbonate [Calcium] 600 mg PO DAILY 01/02/19 Warfarin 2.5 mg PO TH 01/02/19 Surgical History: Surgical History (Last Reviewed 01/03/19 @ 00:18 by Matias Carranza MD) Stented coronary artery (Chronic) Onset Date: 10/18/07 Z95.5 PTCA LAD X w stents 03/06/06, 10/18/07 H/O coronary artery bypass surgery (Chronic) Z95.1 CABG PATINO graft LAD, pericardial drainage/window for pericardial effusion March 2000, saphenous vein graft to Diag 26 February 2000 History of back surgery Z98.890 History of thyroidectomy E89.0 Hx of appendectomy Z98.890, Z90.49 Surgical History: coronary bypass surgery Lives: Spouse/ Significant Other Smoking Status: Former smoker Alcohol: None Drugs: None Review of Systems Constitutional: Denies: Chills, Fever, Weight Change HEENT: Denies: Head Aches, Sinus Congestion, Sinus Drainage Cardiovascular: Reports: Chest Pain. Denies: Palpitations Respiratory: Reports: Shortness of Breath. Denies: Cough Gastrointestinal: Reports: Nausea. Denies: Abdominal Pain, Vomiting Genitourinary: Denies: Dysuria Musculoskeletal: Denies: Joint Pain, Joint Tenderness Skin: Denies: Rash, Wounds Neurological: Denies: Numbness, Tingling, Focal weakness Psychiatric: Denies: Anxiety, Depression, Homicidal Ideations, Suicidal Ideations Hematologic/ Lymphatic: Denies: Easy Bruising, Easy Bleeding VTE Information - Inpt Only VTE Present on Admission: No VTE Mechan Device Prophylaxis: SCD's VTE Pharm Prophylaxis ordered?: No Patient Problems: Active and Suspected Problems (Last Reviewed 01/02/19 @ 23:32 by Matias Carranza MD) Chest pain due to CAD (Acute) Chest pain (Acute) - Physical Exam General: Alert, Oriented x3, Cooperative HEENT: Atraumatic, PERRLA, EOMI, Normocephalic Neck: Supple, No JVD, Negative Carotid Bruits Lungs: Clear to auscultation, Normal air movement Cardiovascular: Normal S1, Normal S2, No murmurs, Bradycardic Abdomen: Bowel Sounds Present, Soft, Non Tender Extremities: No edema, Capillary Refill Less than 3 Seconds Skin: No rashes, No breakdown Musculoskeletal: No Tenderness to Palpation of Joints or Extremities Neurological: Cranial nerves II-XII grossly intact Psych/Mental Status: Normal Affect, Appropriate Vital Signs Temp Pulse Resp BP Pulse Ox 97.9 F 51 L 15 141/75 H 94 01/02/19 21:24 01/02/19 21:24 01/02/19 21:24 01/02/19 21:24 01/02/19 21:24 Oxygen Delivery Method Room Air Weight: 102 kg Body Mass Index (BMI) 38.6 Laboratory Tests Past 24 Hrs 01/02/19 01/02/19 21:40 21:40 WBC 7.3 RBC 4.79 Hgb 13.5 Hct 42.3 MCV 88.3 MCH 28.2 MCHC 31.9 L RDW Std Deviation 42.6 RDW Coeff of [place] 13.1 Plt Count 238 MPV 10.9 Immature Gran % (Auto) 0.400 Neut % (Auto) 50.1 Lymph % (Auto) 37.0 [place] % (Auto) 10.7 H Eos % (Auto) 1.2 Baso % (Auto) 0.6 Absolute Neuts (auto) 3.6 Absolute Lymphs (auto) 2.69 Nucleated RBC % 0 Sodium 141 Potassium 3.5 Chloride 106 Carbon Dioxide 29.0 Anion Gap 6 BUN 15 Creatinine 1.02 Estim Creat Clear Calc 39.25 Est GFR (MDRD) Af Amer 67 Est GFR (MDRD) Non-Af 56 L BUN/Creatinine Ratio 14.7 Glucose 90 Calcium 9.2 Troponin I < 0.015 Assessment/Plan All Active Problems (Last Reviewed 01/02/19 @ 23:32 by Matias Carranza MD) Chest pain due to CAD (Acute) Chest pain (Acute) Left-sided pyelonephritis (Acute) Dyspnea on exertion (Resolved) Pulmonary emboli (Resolved) The patient is a 78 year old F with a significant history of previous; tobacco abuse double vessel CABG in 1999 and 2 coronary stents later on; DVT and PE with a prior IVC filter, and on current anticoagulation; paroxysmal A. fib; hypertension; and GERD who presented to the emergency department with excruciating substernal chest pain that started when she was about to watch TV; and which was relieved with nitroglycerin. Chest pain JUSTIN score for unstable angina/non-STEMI is at least 4 (age more or equal to 65; known CAD; aspirin use in his past 7 days; severe angina of more recorded 2 episodes in 24 hours) Heart score of at least 5 points; moderate score (moderately suspicious; age more or equal to 65; more than 3 risk factors or history of atherosclerotic disease) Admit to a monitored bed on PCU CXR independently reviewed confirms no acute cardiopulmonary process. EKG independently reviewed confirms T wave inversions in V1 to V6. This was unchanged from previous.. Continue ASA 81 mg p.o. daily SL NTG 0.4 mg prn as needed for chest pain We will check lipid panel. Statin: High-intensity rosuvastatin continue Cardiac enzymes was unremarkable serial cardiac enzymes Stat EKG as needed for chest pain Atenolol continued at half dose because of bradycardia; and lisinopril continued. We will consult cardiology. Keep patient n.p.o. Hold Coumadin pending cardiology eval. Paroxysmal Afib On presentation patient was sinus bradycardia. Will cut and home atenolol dose into [address] parameters on heart rate. Coumadin on hold as above. Hypertension On presentation her blood pressure was stable in regard to age. Lisinopril continued. Atenolol dose reduced due to secondary to bradycardia. Bradycardia Sinus bradycardia on EKG. While in patient's room patient heart rate oscillated from high 40s to low 50s. Reduced dose of atenolol and place parameters as above. DVT prophylaxis INR therapeutic on Coumadin. Would hold Coumadin pending cardiology eval. SCD ordered. Code Visit OBSV E&M: 22896 Initial observation care L3
[2019-01-02 22:47] LABS: International Normalized Ratio 2.4; Prothrombin Time (Protime)PT. 26.5 SECONDS (11.7-14.9)
[2019-01-02 23:05] VITALS: BP 118/62; PULSE 56; RESP 19; O2SAT 96
[2019-01-02 23:32] VITALS: BP 146/58; BP 147/60; PULSE 45; RESP 18; TEMP 36.4; O2SAT 96
--- NOTE | 2019-01-02 23:38 | EKG12_ITS ---
Test Reason : CP ADMISSION Blood Pressure : / mmHG Vent. Rate : 044 BPM Atrial Rate : 044 BPM P-R Int : 168 ms QRS Dur : 094 ms QT Int : 496 ms P-R-T Axes : 033 000 051 degrees QTc Int : 424 ms Marked sinus bradycardia Voltage criteria for left ventricular hypertrophy ST & T wave abnormality, consider anterolateral ischemia Abnormal ECG When compared with ECG of 02-JAN-2019 21:26, MANUAL COMPARISON REQUIRED, DATA IS UNCONFIRMED Confirmed by SOPHIE RABAGO ([id number]), editorial manager BERNY HUMPHREYS ([id number]) on 01/09/2019 3:00:20 PM Referred By: NAIDA Confirmed By:SOPHIE RABAGO
[2019-01-02 23:39] VITALS: O2SAT 97
[2019-01-02 23:44] VITALS: PULSE 45; BMI 36.9
[2019-01-03] VITALS (12 sets, daily range): BP systolic 120–176; BP diastolic 61–90; PULSE 43–84; RESP 18; TEMP 36.4–37.2; O2SAT 96–100; BMI 37.0
[2019-01-03 04:57] LABS: Cholesterol 124 mg/dL (200); High Density Lipoprotein 47 mg/dL; Triglycerides 210 mg/dL; Very Low Density Lipoprotein 42 mg/dL (5-40)
--- NOTE | 2019-01-03 06:58 | STEWCON_ITS ---
Reason For Study: CHEST PAIN Stress Results Protocol: Dobutamine with definity Maximum Predicted HR: 142 bpm Target HR: 121 bpm % Maximum Predicted HR: 122 % DurationHeart Rate Stage (mm:ss) (bpm) BP Dose Comment BASELINE 51 170/74 2.5 CC DEFINITY STAGE 1 3:56 51 155/7310.000.5CC DEFINITY STAGE 2 3:00 75 127/6620.00 STAGE 3 3:00 107 167/5530.00 STAGE 4 3:00 173 / 40.00AFIB/FLUTTER, NO CHEST PAIN, BUT FEELS HEART THUMPING RECOVERY 75 127/82 2 CC DEFINITY Stress Duration: 12:56 mm:ss Maximum Stress HR: 173 bpm Baseline Echocardiogram Findings The estimated ejection fraction is 65 %. Stress Echo Wall motion Data Resting WM Intermediate WM Stress WM Resting Wall Motion Wall Motion Stress No regional wall motion No regional wall motion abnormalities noted. abnormalities noted. EKG Data The baseline ECG displays normal sinus rhythm. The patient was titrated from 10 mcg to a maximum of 40 mcg of dobutamine during the stress. The maximum heart rate attained was 179 beats per minute. This was 126% of maximum predicted heart rate. During dobutamine infusion, there were no ST or T wave changes noted to suggest ischemia. No clinical angina was noted. Interpretation Summary The estimated ejection fraction is 65 %. Normal, adequate, dobutamine echocardiogram. Negative for ischemia by EKG and echocardiographic criteria. No anginal symptoms noted. Patient converted from normal sinus rhythm to atrial fibrillation during dobutamine infusion. Despite IV Lopressor post procedure, she remained in atrial fibrillation. Rare PVCs noted. Appropriate blood pressure response to dobutamine. Decreased sensitivity due to poor echo windows requiring Definity agent. Final LVEF is 75%. No complications. Will recommend DC cardioversion if patient does not spontaneously convert on the floor after 2 hours. Patient compliant with Coumadin, INR is 2.4 today. The study was technically difficult. Contrast injection was performed. Ordering Physician: Gaurang Gorman Referring Physician: Gaurang Gorman MD Performed By: Ann Whipple RDCS
[2019-01-03] MEDS: Sucralfate 1 GM Tablet PO (07:04)
[2019-01-03] MEDS: Aspirin E.C. 81 MG Tablet PO (07:04)
[2019-01-03] MEDS: Levothyroxine 100 MCG Tablet PO (07:04)
--- NOTE | 2019-01-03 09:35 | PCM.CONS.C ---
Problem List (1) Chest pain due to CAD Status: Acute (2) History of pulmonary embolism Status: Chronic (3) Stented coronary artery Status: Chronic Comment: PTCA LAD X w stents 03/06/06, 10/18/07 (4) Paroxysmal atrial fibrillation Status: Chronic (5) Atherosclerotic heart disease of [place] coronary artery without angina pectoris Status: Chronic Qualifiers: [place] vs. transplanted heart: [place] heart Qualified Code(s): I25.10 - Atherosclerotic heart disease of [place] coronary artery without angina pectoris Comment: S/P bypass surgery in 1999 with PATINO to LAD and SVG to diagonal; stenting x2 to LAD in February 2006 and September 2007; (6) H/O coronary artery bypass surgery Status: Chronic Comment: CABG PATINO graft LAD, pericardial drainage/window for pericardial effusion March 2000, saphenous vein graft to Diag 26 February 2000 (7) Wide-complex tachycardia Status: Chronic (8) Hyperlipidemia Status: Chronic Qualifiers: Hyperlipidemia type: pure hypercholesterolemia Qualified Code(s): E78.00 - Pure hypercholesterolemia, unspecified; E78.0 - Pure hypercholesterolemia Reason for Consult Date of Consultation: 01/03/19 Reason for Consultation: Chest pain, coronary artery disease, paroxysmal atrial fibrillation, hypertension, hypercholesterolemia, previous bypass surgery, previous angioplasty and stenting to her LAD History of Present Illness: The patient is a 78 year old F, known patient of Brammo with a history of hypertension, hypercholesterolemia, coronary artery disease status post two-vessel bypass surgery in 1999 with a PATINO to the LAD, and a saphenous vein graft to the diagonal branch. The patient then underwent angioplasty and stenting of her LAD due to an atretic PATINO in September 2005 and again in 2007. Her most recent catheterization was by me here at [facility] in 2016 which demonstrated an atretic PATINO to the LAD, widely patent LAD stent, widely patent saphenous vein graft to the diagonal, and normal-appearing left circumflex and right coronary artery. No additional intervention was performed at that time. In addition the patient has a history of paroxysmal atrial fibrillation superimposed on previous pulmonary embolism and is on chronic Coumadin therapy. Patient has been asymptomatic from a cardiac standpoint since her last visit. Last evening after eating salad from [employer], and as she was about ready to watch the [employer] game, the patient developed severe substernal chest pressure as if an elephant was tap dancing on her chest, similar to her previous chest pain prior to her angioplasty and stenting. Patient took 1 sublingual nitroglycerin which almost completely resolved her chest pain. When her pain did not completely go away she sought medical attention [facility] ER. In the emergency room an EKG was performed which showed normal sinus rhythm with old T wave inversion, no acute changes. An additional sublingual nitroglycerin was given and her chest pain completely resolved. Patient ruled out for myocardial infarction and has remained in sinus rhythm overnight. She underwent a dobutamine echocardiogram for cardiac risk stratification which preliminarily appears to be negative. She had no chest pain symptoms during dobutamine infusion. However, during dobutamine she converted to atrial fibrillation with RVR. She received 1 IV dose of Lopressor which slowed her heart rate down but did not convert her back. Patient reports that she has been compliant with her Coumadin therapy and has been checked on a monthly basis. Her INR today is 2.4. Patient denies any recent exertional chest pain, angina, shortness of breath or decrease in exercise capacity. She has had no further chest pain symptoms since admission. [] Past Medical History Allergies/Adverse Reactions: Allergies streptokinase [Streptokinase] Adverse Reaction (Severe, Verified 01/02/19 21:24) Hives Home Medications: Ambulatory Orders Medication Instructions Recorded Aspirin E.C. [Ecotrin] 81 mg PO DAILY@0800 04/03/13 Nitroglycerin (INPATIENT USE) 0.4 mg SUBLINGUAL Q5M PRN 04/03/13 [Nitrostat] Sucralfate [Carafate] 1 gm PO TID 01/28/14 Albuterol IH (ProAir) [Proair Hfa] 2 puff INHALATION Q6H PRN 11/09/15 atenolol 50 mg tablet 50 mg PO BID #60 tab 02/01/18 hydrochlorothiazide 12.5 mg capsule 12.5 mg PO DAILY #90 cap 02/11/18 warfarin 5 mg tablet 5 mg PO SUMOTUWEFRSA 02/11/18 Levothyroxine [Synthroid] 100 mcg PO DAILY 05/19/18 calcium carbonate-vitamin D3 250 1 tab PO DAILY tab 08/26/18 mg-125 unit tablet cholecalciferol (vitamin D3) 50,000 unit PO QWEEK 08/26/18 50,000 unit capsule niacin ER 500 mg tablet,extended 500 mg PO BID #60 tab 11/04/18 release 24 hr ramipril 10 mg capsule 20 mg PO DAILY #60 cap 11/15/18 omega-3 acid ethyl esters 1 gram 1 cap PO BID #60 cap 12/18/18 capsule rosuvastatin 40 mg tablet 40 mg PO QHS #30 tab 12/18/18 Calcium Carbonate [Calcium] 600 mg PO DAILY 01/02/19 Warfarin 2.5 mg PO TH 01/02/19 Past Medical History (Chronic Problems): Chronic Problems (Last Reviewed 01/03/19 @ 00:21 by Matias Carranza MD) Ovarian cancer (Chronic) 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) History of pulmonary embolism (Chronic) History of DVT (deep vein thrombosis) (Chronic) Stented coronary artery (Chronic 10/18/07) PTCA LAD X w stents 03/06/06, 10/18/07 Paroxysmal atrial fibrillation (Chronic) Atherosclerotic heart disease of [place] coronary artery without angina pectoris (Chronic) S/P bypass surgery in 1999 with PATINO to LAD and SVG to diagonal; stenting x2 to LAD in February 2006 and September 2007; H/O coronary artery bypass surgery (Chronic) CABG PATINO graft LAD, pericardial drainage/window for pericardial effusion March 2000, saphenous vein graft to Diag 26 February 2000 Wide-complex tachycardia (Chronic) Hypertension (Chronic) GERD (gastroesophageal reflux disease) (Chronic) Hypothyroid (Chronic) Hyperlipidemia (Chronic) Surgical History: coronary bypass surgery Lives: Spouse/ Significant Other Smoking Status: Former smoker Alcohol: None Drugs: None Review of Systems - Review of Systems General: Denies: Fever, Night Sweats, Fatigue Cardiovascular: Reports: Chest Discomfort, Chest Discomfort at Rest, Chest Pressure. Denies: Shortness of Breath, Orthopnea, PND, Peripheral Edema, Palpitations, Lightheadedness, Dizziness, Near Syncope, Syncope Respiratory: Denies: Cough, Sputum Production, Hemoptysis Gastrointestinal: Denies: Hematemesis, Hematochezia, Melena Genitourinary: Denies: Dysuria, Hematuria Skin: Denies: Rash Subjectve: Patient resting comfortably, no acute distress. Objective: Vital Signs Temp Pulse Resp BP Pulse Ox 98.9 F 51 L 18 176/75 H 98 01/03/19 08:00 01/03/19 08:00 01/03/19 08:00 01/03/19 08:00 01/03/19 08:00 Oxygen Delivery Method Room Air Weight: 218 lb 11.177 oz Body Mass Index (BMI) 36.9 Intake and Output for Last 24 Hours 01/01/19 01/02/19 01/03/19 23:59 23:59 23:59 Output Total 0 / 0 Balance 0 / 0 General: Awake, Alert, Oriented x 3 HEENT: PERRL, EOMI, Sclera Non Icteric Neck: Supple, Good ROM, No Lymph Node Enlargement Lungs: Clear to auscultation Cardiovascular: Irregular Rhythm, Normal S1, Normal S2, No Murmurs, No Rubs, No Gallops Vascular: No Carotid Bruits, Normal Femoral Pulses, Normal Radial Pulses, Normal Dorsalis Pedal Pulse, Normal Posterior Tibial Pulses Abdomen: Bowel Sounds Present, Soft, Non Tender, No HSM, No Organomegaly Extremities: No Cyanosis, No Clubbing, No edema Neurological: No Focal Motor or Sensory Deficit 01/02/19 21:20: PT 26.5 H, INR 2.4 01/02/19 21:40: WBC 7.3, RBC 4.79, Hgb 13.5, Hct 42.3, MCV 88.3, MCH 28.2, MCHC 31.9 L, Plt Count 238, MPV 10.9, Immature Gran % (Auto) 0.400, Neut % (Auto) 50.1, Lymph % (Auto) 37.0, [place] % (Auto) 10.7 H, Eos % (Auto) 1.2, Baso % (Auto) 0.6, Absolute Neuts (auto) 3.6, Nucleated RBC % 0 01/02/19 21:40: Sodium 141, Potassium 3.5, Chloride 106, Carbon Dioxide 29.0, Anion Gap 6, BUN 15, Creatinine 1.02, Est GFR (MDRD) Af Amer 67, Est GFR (MDRD) Non-Af 56 L, BUN/Creatinine Ratio 14.7, Glucose 90, Calcium 9.2, Troponin I < 0.015 01/03/19 00:55: Troponin I < 0.015 01/03/19 04:05: Triglycerides 210 H, Cholesterol 124, LDL Cholesterol 35, VLDL Cholesterol 42 H, HDL Cholesterol 47 01/03/19 04:05: Troponin I < 0.015 Rhythm: EKG: ECHO: Stress Test: Cardiac Cath: PCI: CT Surgery: Holter monitor: EPS: PPM: CXR: Chest CT Scan: Assessment/Plan 1. Coronary artery disease: The patient had an episode of atypical substernal chest pressure which appeared to be somewhat severe, and according to the patient similar to her previous anginal symptoms. It was improved with sublingual nitroglycerin, however she is ruled out for myocardial infarction. Her EKG showed normal sinus rhythm with old T wave inversion, no acute changes. The patient underwent a dobutamine echocardiogram this morning which was negative for inducible ischemia by both EKG and echocardiographic criteria. However during the dobutamine infusion she converted from sinus rhythm to atrial fibrillation and did not convert back despite IV beta-chan therapy. The patient's INR is currently 2.4, I do not believe her symptoms are ischemic in nature given her negative stress test and lack of chest pain during dobutamine infusion. In any case we would not be able to do a heart catheterization anyhow as her INR is above 2.4. At this point I would recommend continuing the patient on baby aspirin, atenolol and ramipril. 2. Atrial fibrillation: The patient has a known history of paroxysmal atrial fibrillation as well as pulmonary embolism. Patient does not appear to have pulmonary embolism by clinical evaluation. Her INR is also therapeutic at 2.4. If the patient does not revert back to normal sinus rhythm in the next 2 hours on her own post dobutamine, I would recommend elective DC cardioversion this afternoon. Please keep patient n.p.o. 3. Hyperlipidemia: Her LDL and HDL cholesterol at goal. Continue Niaspan and Lipitor. 4. Thank you very much for the opportunity to participate in the cardiac care of your patient. Consultation took place between at 9:45 AM. Code Visit Inpatient E&M: 35440 Init Hosp L2
--- NOTE | 2019-01-03 09:47 | EKG12_ITS ---
Test Reason : PRE-CARDIOVERSION Blood Pressure : / mmHG Vent. Rate : 057 BPM Atrial Rate : 300 BPM P-R Int : 000 ms QRS Dur : 092 ms QT Int : 440 ms P-R-T Axes : 000 009 038 degrees QTc Int : 428 ms Atrial fibrillation with slow ventricular response Minimal voltage criteria for LVH, may be normal variant ST & T wave abnormality, consider anterior ischemia Abnormal ECG When compared with ECG of 02-JAN-2019 23:39, MANUAL COMPARISON REQUIRED, DATA IS UNCONFIRMED Confirmed by SOPHIE RABAGO ([id number]), editor book BERNY HUMPHREYS ([id number]) on 01/09/2019 3:02:11 PM Referred By: GEM Confirmed By:SOPHIE RABAGO
[2019-01-03] MEDS: dilTIAZem 25 MG/5 ML Vial 10 MG IV BOLUS (09:52)
--- NOTE | 2019-01-03 11:55 | CASEMGMT ---
[employer] CM to room to meet with patient for initial transition planning/care coordination assessment. RN LIZ introduced self and role at [facility]. Pt voices understanding and consents to assessment at this time. Pt resting in bed in no distress at this time. Pt is A/O at this time and answers all questions appropriately. Care providers, pharmacy, and demographics verified/updated at this time. PCP: Amy Specialists: Sherif--cardiology, Dillan-dermatology, Monserrat-oncology. Preferred Pharmacy: [facility] Insurance: [facility] Prescription Benefit: Yes Living Will/HPOA: Has both LW and HCPOA who is her , Jose Angel OLSENOK: Living Arrangements: Lives with her in one-story home. 1-2 steps to enter. Independent. Transportation: Pt states drives self and states no transportation concerns at this time. will drive her home @ d/c. DME: Has a cane she uses when ambulating longer distances Pt states no need for further DME at this time. HHC/SNF: No history of either and no needs identified. Pt wishes to return home and states has no concerns with going home at time of discharge. CM to follow for any further discharge planning/needs. Pt voices no further concerns/needs at this time. Advised pt to ask for CM if any further questions/concerns/needs arise. Voices understanding. PLAN: Home w/spousal support and discharge plans in place. Chris AGRAWAL RN, CM
[2019-01-03] MEDS: Propofol 200 MG/20 ML Vial 70 MG IV BOLUS (13:08)
--- NOTE | 2019-01-03 13:13 | EKG12_ITS ---
Test Reason : POST CARDIOVERSION Blood Pressure : / mmHG Vent. Rate : 069 BPM Atrial Rate : 202 BPM P-R Int : 000 ms QRS Dur : 092 ms QT Int : 436 ms P-R-T Axes : 000 -02 019 degrees QTc Int : 467 ms Atrial fibrillation Voltage criteria for left ventricular hypertrophy Nonspecific T wave abnormality Abnormal ECG No previous ECGs available Confirmed by SOPHIE RABAGO ([id number]), purchase request editor BERNY HUMPHREYS ([id number]) on 01/09/2019 3:02:34 PM Referred By: GEM Confirmed By:SOPHIE RABAGO
--- NOTE | 2019-01-03 13:13 | CARDIOVERS_ITS ---
Cardioversion Cardioversion: Cardioversion: Patient is a 78-year-old female, with a history of paroxysmal atrial fibrillation on chronic Coumadin therapy. The patient underwent a dobutamine echocardiogram this morning at the beginning of which she was in normal sinus rhythm. During the infusion the patient developed atrial fibrillation with rapid ventricular response. She was treated with IV Lopressor which improved her heart rate. Patient was given several hours to attempt spontaneous cardioversion however this was not successful. Patient's INR is 2.4. As the patient's been therapeutic on her Coumadin and the relatively short period of time when she has been in documented atrial fibrillation, DC cardioversion was recommended prior to discharge. Resting EKG: Patient has atrial fibrillation with controlled ventricular response. DC cardioversion: The risks/benefits of the procedure were thoroughly explained the patient and informed consent was obtained. With the assistance of Dr. Santiago Peña the patient was given 50 mg of IV propofol, and once adequate sedation was obtained the patient received sequential shocks of 200 J, 300 J, and finally 360 J of biphasic synchronized energy. Unfortunately none of these converted her to normal sinus rhythm. No additional shocks applied. Conclusions: Unsuccessful DC cardioversion utilizing 200 J, 300 J, and 360 J of biphasic energy. The patient will remain on Coumadin therapy and continue beta- chan therapy as an outpatient. Patient may spontaneously convert to normal s inus rhythm on her own and if she has symptoms related to atrial fibrillation we can consider either flecainide or amiodarone assisted DC cardioversion going forward. No complications. Many thanks Dr. Santiago Peña for his assistance.
--- NOTE | 2019-01-03 13:20 | NURSING ---
BEDSIDE ATTEMPT TO CARDIOVERSION. AND . PT WAS PLACED ON 2 L NC AND CHARGE NURSE PRESENT.PT IN SUPINE POSITION. DR OSEGUERA ADMINISTER 40 MG OF DIPRIVAN @ 1258HRS, 10 MG OF DIPRIVAN @1259HRS, 10 MG OF DIPRIVAN @1300HRS, AND 10 MG OF DIPRIVAN @1302. ADMINISTER 200J @ 1300, 250J @ 1301 AND 360J @1302. PT REMAINS AT DROWSY AND IS AWAKE, ALERT AND ORIENTED X 3. PT IS AWAKE AND TALKING AND HAVING SIPS OF WATER SPOUSE REMAINS AT BEDSIDE.
--- NOTE | 2019-01-03 14:11 | PCM.DC ---
- Discharge Diagnoses Current Active Problems: Current Active and Chronic Problems (Last Reviewed 01/03/19 @ 00:21 by Matias Carranza MD) Chest pain due to CAD (Acute) Chest pain (Acute) Atherosclerotic heart disease of [place] coronary artery without angina pectoris (Chronic) S/P bypass surgery in 1999 with PATINO to LAD and SVG to diagonal; stenting x2 to LAD in February 2006 and September 2007; Hypertension (Chronic) Hyperlipidemia (Chronic) You will use the following diet at home:: Cardiac Your food should be the consistency of: Regular Your liquids should be the consistency of: Regular/Thin Discharge Activity: Return to Normal Activity Allergies/Adverse Reactions: Allergies streptokinase [Streptokinase] Adverse Reaction (Severe, Verified 01/02/19 21:24) Hives Medications to take at Discharge Aspirin E.C. [Ecotrin] 81 mg PO DAILY@0800 04/03/13 Nitroglycerin (INPATIENT USE) [Nitrostat] 0.4 mg SUBLINGUAL Q5M PRN 04/03/13 Sucralfate [Carafate] 1 gm PO TID 01/28/14 Albuterol IH (ProAir) [Proair Hfa] 2 puff INHALATION Q6H PRN 11/09/15 atenolol 50 mg tablet 50 mg PO BID #60 tab 02/01/18 hydrochlorothiazide 12.5 mg capsule 12.5 mg PO DAILY #90 cap 02/11/18 warfarin 5 mg tablet 5 mg PO SUMOTUWEFRSA 02/11/18 Levothyroxine [Synthroid] 100 mcg PO DAILY 05/19/18 calcium carbonate-vitamin D3 250 mg-125 unit tablet 1 tab PO DAILY tab 08/26/18 cholecalciferol (vitamin D3) 50,000 unit capsule 50,000 unit PO QWEEK 08/26/18 niacin ER 500 mg tablet,extended release 24 hr 500 mg PO BID #60 tab 11/04/18 ramipril 10 mg capsule 20 mg PO DAILY #60 cap 11/15/18 omega-3 acid ethyl esters 1 gram capsule 1 cap PO BID #60 cap 12/18/18 rosuvastatin 40 mg tablet 40 mg PO QHS #30 tab 12/18/18 Calcium Carbonate [Calcium] 600 mg PO DAILY 01/02/19 Warfarin 2.5 mg PO TH 01/02/19 Primary Care Physician: Rolf Reyes MD [Primary Care Provider] - Please follow up with your Primary Care Physician in: 1-2 weeks Test Results: Test results from this visit will be discussed in further detail at your follow-up appointment, if applicable. Please Follow Up With: Gaurang Gorman MD When: as directed
--- NOTE | 2019-01-03 14:12 | PCM.DC.SUM ---
<Ed Ascencio - Last Filed: 01/03/19 14:12> Discharge Date and Diagnosis - Problem List Patient Problems: Active and Suspected Problems (Last Reviewed 01/03/19 @ 00:21 by Matias Carranza MD) Chest pain due to CAD (Acute) Chest pain (Acute) Date of Admission: 01/02/19 Date of Discharge: 01/03/19 - Primary Discharge Diagnosis Active and Suspected Problems (Last Reviewed 01/03/19 @ 00:21 by Matias Carranza MD) Chest pain - musculoskeletal Paroxysmal Afib Unsuccessful Cardioversion CAD with hx of CABG HTN HLD Hx PE - Secondary Discharge Diagnosis Chronic Problems (Last Reviewed 01/03/19 @ 00:21 by Matias Carranza MD) Ovarian cancer (Chronic) 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) History of pulmonary embolism (Chronic) History of DVT (deep vein thrombosis) (Chronic) Stented coronary artery (Chronic 10/18/07) PTCA LAD X w stents 03/06/06, 10/18/07 Paroxysmal atrial fibrillation (Chronic) Atherosclerotic heart disease of [place] coronary artery without angina pectoris (Chronic) S/P bypass surgery in 1999 with PATINO to LAD and SVG to diagonal; stenting x2 to LAD in February 2006 and September 2007; H/O coronary artery bypass surgery (Chronic) CABG PATINO graft LAD, pericardial drainage/window for pericardial effusion March 2000, saphenous vein graft to Diag 26 February 2000 Wide-complex tachycardia (Chronic) Hypertension (Chronic) GERD (gastroesophageal reflux disease) (Chronic) Hypothyroid (Chronic) Hyperlipidemia (Chronic) Hospital Course and Treatment Imaging Results: 01/03/19 06:58 Stress Test Echo W/Contrast [ECHO] Routine Interpretation Summary The estimated ejection fraction is 65 %. Normal, adequate, dobutamine echocardiogram. Negative for ischemia by EKG and echocardiographic criteria. No anginal symptoms noted. Patient converted from normal sinus rhythm to atrial fibrillation during dobutamine infusion. Despite IV Lopressor post procedure, she remained in atrial fibrillation. Rare PVCs noted. Appropriate blood pressure response to dobutamine. Decreased sensitivity due to poor echo windows requiring Definity agent. Final LVEF is 75%. No complications. Will recommend DC cardioversion if patient does not spontaneously convert on the floor after 2 hours. Patient compliant with Coumadin, INR is 2.4 today. The study was technically difficult. Contrast injection was performed. RAD/Chest 1 View (Portable) IMPRESSION: No acute cardiopulmonary process. Consults: Sherif - Harvey Operations: None Procedures: Cardioversion Summary of Care Provided: Hospital Course: The patient is a 78 year old F with past medical history of paroxysmal atrial fibrillation, CAD with prior CABG, hypertension, hyperlipidemia, PE with prior IVC filter, who presented to the emergency room with complaints of chest pain. This was described as feeling similar to past anginal events. It is described as a excruciating substernal tightness starting at rest. It was relieved by nitro. She presented to the emergency room and had a negative EKG, negative troponin, negative chest x-ray. She was admitted for chest pain work-up. Cardiology was consulted. Troponin was negative x3. She underwent a stress echo the following morning which did not demonstrate evidence of ischemia. During her stress echo she converted from sinus rhythm to atrial fibrillation. The patient has been therapeutic on Coumadin. She was taken for a cardioversion later that day. This was unsuccessful, however her rate remains well controlled. The patient was discharged home in stable condition. She will need to follow-up with her PCP in 1 to 2 weeks. She will also need to follow-up with cardiology as directed. This patient was seen by Ed Ascencio PA-C under the supervision of Doctor Sherif. [] Patient Problems: Active and Suspected Problems (Last Reviewed 01/03/19 @ 00:21 by Matias Carranza MD) Chest pain due to CAD (Acute) Chest pain (Acute) - Physical Exam General: Alert, Oriented x3, Cooperative HEENT: Atraumatic, PERRLA, EOMI, Normocephalic Neck: Supple, No JVD, Negative Carotid Bruits Lungs: Clear to auscultation, Normal air movement Cardiovascular: No murmurs, Irregular Rate Abdomen: Bowel Sounds Present, Soft, Non Tender Extremities: No edema, Capillary Refill Less than 3 Seconds Skin: No rashes, No breakdown Musculoskeletal: No Tenderness to Palpation of Joints or Extremities Neurological: Cranial nerves II-XII grossly intact Psych/Mental Status: Normal Affect, Appropriate, Alert and oriented to time, place, person, mood and affect Vital Signs Temp Pulse Resp BP Pulse Ox 98.3 F 68 18 139/75 H 100 01/03/19 13:13 01/03/19 13:13 01/03/19 13:13 01/03/19 13:13 01/03/19 13:13 Oxygen Flow Rate (L/min) 2 Oxygen Delivery Method Nasal Cannula Weight: 218 lb 11.177 oz Body Mass Index (BMI) 36.9 Intake and Output for Last 24 Hours 01/01/19 01/02/19 01/03/19 23:59 23:59 23:59 Intake Total 500 / 500 Output Total 0 / 0 Balance 500 / 500 Laboratory Tests Past 24 Hrs 01/02/19 01/02/19 01/02/19 21:20 21:40 21:40 WBC 7.3 RBC 4.79 Hgb 13.5 Hct 42.3 MCV 88.3 MCH 28.2 MCHC 31.9 L RDW Std Deviation 42.6 RDW Coeff of Burke 13.1 Plt Count 238 MPV 10.9 Immature Gran % (Auto) 0.400 Neut % (Auto) 50.1 Lymph % (Auto) 37.0 Redwood % (Auto) 10.7 H Eos % (Auto) 1.2 Baso % (Auto) 0.6 Absolute Neuts (auto) 3.6 Absolute Lymphs (auto) 2.69 Nucleated RBC % 0 PT 26.5 H INR 2.4 Sodium 141 Potassium 3.5 Chloride 106 Carbon Dioxide 29.0 Anion Gap 6 BUN 15 Creatinine 1.02 Estim Creat Clear Calc 39.25 Est GFR (MDRD) Af Amer 67 Est GFR (MDRD) Non-Af 56 L BUN/Creatinine Ratio 14.7 Glucose 90 Calcium 9.2 Troponin I < 0.015 Triglycerides Cholesterol LDL Cholesterol VLDL Cholesterol HDL Cholesterol 01/03/19 01/03/19 01/03/19 00:55 04:05 04:05 WBC RBC Hgb Hct MCV MCH MCHC RDW Std Deviation RDW Coeff of Burke Plt Count MPV Immature Gran % (Auto) Neut % (Auto) Lymph % (Auto) Redwood % (Auto) Eos % (Auto) Baso % (Auto) Absolute Neuts (auto) Absolute Lymphs (auto) Nucleated RBC % PT INR Sodium Potassium Chloride Carbon Dioxide Anion Gap BUN Creatinine Estim Creat Clear Calc Est GFR (MDRD) Af Amer Est GFR (MDRD) Non-Af BUN/Creatinine Ratio Glucose Calcium Troponin I < 0.015 < 0.015 Triglycerides 210 H Cholesterol 124 LDL Cholesterol 35 VLDL Cholesterol 42 H HDL Cholesterol 47 Discharge Diet: Low fat/ Low Cholesterol, 2000 mg Sodium Diet Discharge Activity: Return to Normal Activity Home Medications: Medications to take at Discharge Aspirin E.C. [Ecotrin] 81 mg PO DAILY@0800 04/03/13 Nitroglycerin (INPATIENT USE) [Nitrostat] 0.4 mg SUBLINGUAL Q5M PRN 04/03/13 Sucralfate [Carafate] 1 gm PO TID 01/28/14 Albuterol IH (ProAir) [Proair Hfa] 2 puff INHALATION Q6H PRN 11/09/15 atenolol 50 mg tablet 50 mg PO BID #60 tab 02/01/18 hydrochlorothiazide 12.5 mg capsule 12.5 mg PO DAILY #90 cap 02/11/18 warfarin 5 mg tablet 5 mg PO SUMOTUWEFRSA 02/11/18 Levothyroxine [Synthroid] 100 mcg PO DAILY 05/19/18 calcium carbonate-vitamin D3 250 mg-125 unit tablet 1 tab PO DAILY tab 08/26/18 cholecalciferol (vitamin D3) 50,000 unit capsule 50,000 unit PO QWEEK 08/26/18 niacin ER 500 mg tablet,extended release 24 hr 500 mg PO BID #60 tab 11/04/18 ramipril 10 mg capsule 20 mg PO DAILY #60 cap 11/15/18 omega-3 acid ethyl esters 1 gram capsule 1 cap PO BID #60 cap 12/18/18 rosuvastatin 40 mg tablet 40 mg PO QHS #30 tab 12/18/18 Calcium Carbonate [Calcium] 600 mg PO DAILY 01/02/19 Warfarin 2.5 mg PO TH 01/02/19 Primary Care Physician: Rolf Reyes MD [Primary Care Provider] - Please follow up with your Primary Care Physician in: 1-2 weeks Please Follow Up With: Gaurang Gorman MD When: as directed Disposition: Home Minutes spent on discharge:: 35 Patient Condition:: Stable Medical Necessity - Tobacco Use Smoking Status: Former smoker Meaningful Use Info Meaningful Use Diagnoses (Choose all that apply): None applicable <Calos Elliott - Last Filed: 01/03/19 15:51> Discharge Date and Diagnosis - Primary Discharge Diagnosis Active and Suspected Problems (Last Reviewed 01/03/19 @ 00:21 by Matias Carranza MD) Chest pain due to CAD (Acute) Chest pain (Acute) - Secondary Discharge Diagnosis Chronic Problems (Last Reviewed 01/03/19 @ 00:21 by Matias Carranza MD) Ovarian cancer (Chronic) 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) History of pulmonary embolism (Chronic) History of DVT (deep vein thrombosis) (Chronic) Stented coronary artery (Chronic 10/18/07) PTCA LAD X w stents 03/06/06, 10/18/07 Paroxysmal atrial fibrillation (Chronic) Atherosclerotic heart disease of [place] coronary artery without angina pectoris (Chronic) S/P bypass surgery in 1999 with PATINO to LAD and SVG to diagonal; stenting x2 to LAD in February 2006 and September 2007; H/O coronary artery bypass surgery (Chronic) CABG PATINO graft LAD, pericardial drainage/window for pericardial effusion March 2000, saphenous vein graft to Diag 26 February 2000 Wide-complex tachycardia (Chronic) Hypertension (Chronic) GERD (gastroesophageal reflux disease) (Chronic) Hypothyroid (Chronic) Hyperlipidemia (Chronic) Hospital Course and Treatment Imaging Results: 01/03/19 06:58 Stress Test Echo W/Contrast [ECHO] Routine Summary of Care Provided: The patient is a 78 year old F [] - Physical Exam Vital Signs Temp Pulse Resp BP Pulse Ox 98.3 F 68 18 139/75 H 100 01/03/19 13:13 01/03/19 14:00 01/03/19 13:13 01/03/19 13:13 01/03/19 13:13 Oxygen Flow Rate (L/min) 2 Oxygen Delivery Method Nasal Cannula Weight: 218 lb 11.177 oz Body Mass Index (BMI) 36.9 Intake and Output for Last 24 Hours 01/01/19 01/02/19 01/03/19 23:59 23:59 23:59 Intake Total 500 / 500 Output Total 0 / 0 Balance 500 / 500 Laboratory Tests Past 24 Hrs 01/02/19 01/02/19 01/02/19 21:20 21:40 21:40 WBC 7.3 RBC 4.79 Hgb 13.5 Hct 42.3 MCV 88.3 MCH 28.2 MCHC 31.9 L RDW Std Deviation 42.6 RDW Coeff of Burke 13.1 Plt Count 238 MPV 10.9 Immature Gran % (Auto) 0.400 Neut % (Auto) 50.1 Lymph % (Auto) 37.0 [place] % (Auto) 10.7 H Eos % (Auto) 1.2 Baso % (Auto) 0.6 Absolute Neuts (auto) 3.6 Absolute Lymphs (auto) 2.69 Nucleated RBC % 0 PT 26.5 H INR 2.4 Sodium 141 Potassium 3.5 Chloride 106 Carbon Dioxide 29.0 Anion Gap 6 BUN 15 Creatinine 1.02 Estim Creat Clear Calc 39.25 Est GFR (MDRD) Af Amer 67 Est GFR (MDRD) Non-Af 56 L BUN/Creatinine Ratio 14.7 Glucose 90 Calcium 9.2 Troponin I < 0.015 Triglycerides Cholesterol LDL Cholesterol VLDL Cholesterol HDL Cholesterol 01/03/19 01/03/19 01/03/19 00:55 04:05 04:05 WBC RBC Hgb Hct MCV MCH MCHC RDW Std Deviation RDW Coeff of Burke Plt Count MPV Immature Gran % (Auto) Neut % (Auto) Lymph % (Auto) [place] % (Auto) Eos % (Auto) Baso % (Auto) Absolute Neuts (auto) Absolute Lymphs (auto) Nucleated RBC % PT INR Sodium Potassium Chloride Carbon Dioxide Anion Gap BUN Creatinine Estim Creat Clear Calc Est GFR (MDRD) Af Amer Est GFR (MDRD) Non-Af BUN/Creatinine Ratio Glucose Calcium Troponin I < 0.015 < 0.015 Triglycerides 210 H Cholesterol 124 LDL Cholesterol 35 VLDL Cholesterol 42 H HDL Cholesterol 47 Code Visit Addendum: Dr. Elliott I personally examined the patient and reviewed the chart. I agree with the above. 78-year-old female with a history of coronary artery disease status post CABG presenting with chest pain. She is on Coumadin for previous history of DVT and PE this was held initially depending on evaluation by cardiology, fortunately her INR was 2.4 today. She underwent a stress test which was negative however during the stress test she went from being in normal sinus rhythm to A. fib. Cardiology proceeded with cardioversion which ultimately was unsuccessful however she is still anticoagulated and since her stress test was negative cardiology felt that she would be okay for discharge even though she remains in A. fib which she is currently asymptomatic from. OBSV E&M: [id number] Observation care discharge
--- NOTE | 2019-01-03 14:19 | PCM.OP.PRO ---
Problem List (1) Chest pain due to CAD Status: Acute (2) History of acute myocardial infarction of anterolateral wall Status: Chronic (3) History of pulmonary embolism Status: Chronic (4) History of DVT (deep vein thrombosis) Status: Chronic (5) Stented coronary artery Status: Chronic Comment: PTCA LAD X w stents 03/06/06, 10/18/07 (6) Paroxysmal atrial fibrillation Status: Chronic (7) Hypertension Status: Chronic Qualifiers: Hypertension type: essential hypertension Qualified Code(s): I10 - Essential (primary) hypertension (8) GERD (gastroesophageal reflux disease) Status: Chronic (9) Hypothyroid Status: Chronic (10) Hyperlipidemia Status: Chronic Qualifiers: Hyperlipidemia type: pure hypercholesterolemia Qualified Code(s): E78.00 - Pure hypercholesterolemia, unspecified; E78.0 - Pure hypercholesterolemia Procedure Report Date of Procedure: 01/03/19 - Conscious sedation CONSCIOUS SEDATION REPORT BRIEF HISTORY OF PRESENT ILLNESS: The patient is a 78-year-old female who presented to [facility] for chest pain and had a stress test. During stress test, patient developed atrial fibrillation. This did not resolve spontaneously, so a cardioversion was indicated. The patient reports no PO intake since midnight. The patient does not have a history of obstructive sleep apnea. The patient reports a history of smoking, but denies COPD. The patient denies any recent constitutional symptoms such as fevers, chills, nausea or vomiting. The patient denies previous anesthetic complications. Patient's INR was 2.4 on the day of testing. PHYSICAL EXAMINATION: VITAL SIGNS: Reviewed and were acceptable. GENERAL: The patient is a female, in no apparent distress, speaking in full sentences. HEENT: Normocephalic, atraumatic. Mucous membranes are moist and pink. Good mouth opening noted. Trachea is midline. Good neck mobility. MP IV CHEST: S1, S2 irregularly irregular. No murmurs, rubs or gallops were noted. LUNGS: Clear to auscultation bilaterally without appreciable wheezes, rales or rhonchi. ABDOMEN: Soft, nontender, nondistended. Positive bowel sounds. EXTREMITIES: There is no clubbing, cyanosis or edema. ASA Class: II DESCRIPTION OF PROCEDURE: After confirmation of informed consent, the patient's anesthesia plan was reviewed in detail. Propofol was chosen. Risks and benefits were reviewed and the patient agreed to proceed. At 12:58 PM, the patient was given 40 mg of propofol. The patient required a total of 70 mg of propofol throughout the procedure to achieve appropriate sedation. The patient achieved an appropriate level of sedation and received 3 attempt s synchronized cardioversion, at 200 J, 300 J and [address] Gorman at the bedside. This was unsuccessful in achieving normal sinus rhythm. The patient was monitored until 1:08 PM, at which time the patient reached their baseline mental status and function. The patient tolerated the procedure well. COMPLICATIONS: Unsuccessful cardioversion ESTIMATED BLOOD LOSS: None RECOMMENDATIONS: Okay to recover in usual fashion. Code Visit [id number]: Other Procedure See Report - [id number] - 10 minutes conscious sedation
[2019-01-03] MEDS: hydroCHLOROthiazide 12.5mg 12.5 MG PO (15:01)
[2019-01-03] MEDS: Omega-3 Acid Ethyl Esters 1 GM Capsule PO (15:01)
[2019-01-03] MEDS: Niacin SA 500 MG Tablet PO (15:01)
[2019-01-03] MEDS: Ramipril 10 MG Capsule 20 MG PO (15:01)
[2019-01-03] MEDS: Atenolol 25 MG Tablet PO (15:02)
== END 2019-01-03 16:15 | disposition home or self-care (01) ==
LOC: ED 22:23 → PCU 23:17
PROVIDERS: Admitting Provider Hospitalist; Emergency Provider Emergency Medicine; Family Provider Family Medicine; PCP Family Medicine; Visit Provider Family Medicine
DX: R07.89 Other chest pain (principal); R11.0 Nausea; I25.10 Atherosclerotic heart disease of native coronary artery without angina pectoris; K21.9 Gastro-esophageal reflux disease without esophagitis; Z86.718 Personal history of other venous thrombosis and embolism; I25.2 Old myocardial infarction; Z86.711 Personal history of pulmonary embolism; Z95.1 Presence of aortocoronary bypass graft; E78.5 Hyperlipidemia, unspecified; E03.9 Hypothyroidism, unspecified; I48.0 Paroxysmal atrial fibrillation; I10 Essential (primary) hypertension; Z79.899 Other long term (current) drug therapy; Z79.01 Long term (current) use of anticoagulants; Z79.82 Long term (current) use of aspirin; Z87.891 Personal history of nicotine dependence; R06.09 Other forms of dyspnea
CPT/HCPCS: 36415; 71045; 80048; 80061; 84484; 85025; 85610; 92960; 93005; 93017; 93350; 96374; 96375; 99218; 99285; J7040; Q9957; A4216; C8928; G0378

== ENCOUNTER → 2019-04-02 10:43 | Outpatient (CLI) | payer MEDICARE, OTHER, SELFPAY ==
[2019-03-31 12:55] VITALS: BMI 37.5
--- NOTE | 2019-04-02 10:44 | BI_ITS ---
MAMMOGRAPHY - BILATERAL SCREENING REASON FOR EXAM: Female, 78 years old. Routine annual screening examination. PERTINENT HISTORY: Non-contributory. History of prior ovarian carcinoma. TECHNIQUE: Digital bilateral breast glendy (3D mammographic acquisition) in the CC and MLO projections. 2-D mediolateral oblique (MLO) and craniocaudad (CC) views of both breasts were obtained. CAD: Full Field Digital Mammography with Computer Added Detection was performed. COMPARISON: Comparison is made with prior outside examination dated April 01, 2018. FINDINGS: Breast Composition: There are scattered areas of fibroglandular density. There are no dominant masses or suspicious calcifications. Stable benign-appearing bilateral axillary lymph nodes. No other significant abnormalities are identified. There has been no significant change since the prior study. BI/SCREEN MAMM (CAD) W/GLENDY BILAT IMPRESSION: Stable bilateral screening mammogram. Yearly follow-up mammogram recommended. (A) ASSESSMENT CATEGORY: BIRADS Category 2: Benign. A letter regarding these results will be sent to the patient by the facility within 30 days. Approximately 10% of breast cancers are not detected by mammography. A normal mammogram should not delay biopsy of a clinically suspicious abnormality. [id number] Electronically Signed: Mariano Blackmon, at 12:40 EST , Service support ,
== END ==
PROVIDERS: Family Provider Family Medicine; PCP Family Medicine; Referring Provider Internal Medicine Hematology & Oncology; Visit Provider Internal Medicine Hematology & Oncology
DX: Z12.31 Encounter for screening mammogram for malignant neoplasm of breast (principal); Z85.43 Personal history of malignant neoplasm of ovary
CPT/HCPCS: 77063; 77067

== ENCOUNTER 2019-07-13 21:43 | Inpatient (IN) | payer MEDICARE, OTHER, SELFPAY ==
[2019-07-07 12:49] VITALS: BMI 36.5
[2019-07-13 21:44] VITALS: BP 190/82; PULSE 57; RESP 18; TEMP 36.4; O2SAT 98; BMI 35.5
--- NOTE | 2019-07-13 22:09 | EKG12_ITS ---
Test Reason : ABD PAIN Blood Pressure : / mmHG Vent. Rate : 054 BPM Atrial Rate : 054 BPM P-R Int : 156 ms QRS Dur : 098 ms QT Int : 444 ms P-R-T Axes : -18 003 049 degrees QTc Int : 421 ms Sinus bradycardia Voltage criteria for left ventricular hypertrophy T wave abnormality, consider anterolateral ischemia Abnormal ECG Confirmed by MARCELINA ESCALANTE, XIOMARA ([id number]), managing editor BERNY HUMPHREYS ([id number]) on 07/16/2019 8:59:11 AM Referred By: ELLIOTT Confirmed By:XIOMARA HEWITT MD
--- NOTE | 2019-07-13 22:09 | CT_ITS ---
STUDY: CT ABDOMEN AND PELVIS WITHOUT CONTRAST REASON FOR EXAM: Female, 78 years old. ABD PAIN ALL OVER WITH EMESIS, HX ENDOMETRIAL, ADENCARCINOMA, OVARIAN CA IN THE PAST, HYSTERECTOMY, APPY RADIATION DOSAGE (If Supplied By Facility): CTDIvol = ( 20.28 ) mGy, DLP = ( 1068.93 ) mGycm TECHNIQUE: Transaxial images were obtained from the dome of the diaphragm to the symphysis pubis without oral contrast, and without intravenous contrast. Sagittal and coronal images were reconstructed. Individualized dose optimization techniques were used for this CT. COMPARISON: Oct [address] abdomen and pelvis FINDINGS: The visualized lung bases are unremarkable. Calcified mitral valve. Normal liver. Normal gallbladder and extrahepatic biliary system. Normal spleen. Normal pancreas. Normal bilateral adrenal glands. Normal right kidney. Normal left kidney. Normal visualized stomach. Multiple distended loops of small bowel with air-fluid levels. No bowel wall thickening or pneumatosis. There appears to be a significant caliber change distally. Oral contrast noted in the stomach and bowel. Increased stool is noted in the colon. Appendix not identified. Normal abdominal aorta. Normal inferior vena cava. Normal retroperitoneum. Normal urinary bladder. Ventral hernia contains a loop of bowel without evidence of obstruction. Small amount of free fluid in the pelvis. There is a small umbilical hernia containing fat. Moderate spondylosis and multilevel degenerative disc disease. Right hemilaminectomy at L5. CT/Abdomen/Pelvis without Cont IMPRESSION: Probable small bowel obstruction. Surgical consultation recommended. Electronically Signed: Derick Bee MD at 23:33 EST , Service support ,
[2019-07-13] MEDS: Morphine 4 MG/ML Syringe IV (22:21)
[2019-07-13] MEDS: Ondansetron 4 MG/2 ML Vial IV (22:21)
[2019-07-13] MEDS: 0.9% Normal Saline 1,000 ML 150 ML IV (22:29)
[2019-07-13 22:30] LABS: Absolute Lymphocyte Count 1.46 X10^3/uL (0.83-4.51); Basophil# 0.04 X10^3/uL; Basophil% 0.4 % (0-1); Eosinophil# 0.02 X10^3/uL; Eosinophils% 0.2 % (0-5); Hemoglobin 14.3 g/dL (12.0-15.0); Lymphocyte # 1.46 X10^3/ul (4.0); Mean Corp Hgb Conc 31.8 g/dL (32-36); Mean Corpuscular Hgb 27.8 pg (27.0-32.0); Mean Corpuscular Volume 87.4 fL (81-99); Mean Platelet Vol. 11.3 fl (6.2-12.0); Monocyte# 0.64 X10^3/uL; Monocyte% 5.7 % (0-10); NRBC Flagged by Analyzer 0 % (0-5); Neutrophil % 80.3 % (47-70); Platelet Count 276 K/mm3 (150-450); RBC Distribution Width CV 12.7 % (11.6-14.6); RBC Distribution Width SD 40.8 fl (35.1-43.9); Red Blood Count 5.15 M/mm3 (4.2-5.4); White Blood Count 11.2 K/mm3 (4.4-11.0)
[2019-07-13 22:43] LABS: International Normalized Ratio 1.3; Prothrombin Time (Protime)PT. 15.6 SECONDS (11.7-14.9)
[2019-07-13 22:48] LABS: AST(SGOT) 21 U/L (15-37); Alanine Aminotransfer ALT/SGPT 30 U/L (13-56); Albumin, Serum 3.7 g/dL (3.2-5.0); Alkaline Phosphatase 53 U/L (45-117); Anion Gap 8 (5-15); BUN 21 mg/dL (7-18); BUN/Creat Ratio 17.4 RATIO (10-20); Bilirubin, Direct 0.19 mg/dL (0.00-0.30); Calcium,Total 9.3 mg/dL (8.5-10.1); Chloride 103 mmol/L (98-107); Creatinine, Serum 1.21 mg/dL (0.55-1.02); EST Glomerular Filtration Rate 46 mL/min (>60); Est Glom Filt Rate - Afr Amer 55 mL/min (>60); Estimated Creatinine Clearance 33.09 ml/min; Globulin 3.2 g/dL (2.2-4.2); Glucose 134 mg/dL (74-106); Lipase 63 U/L (73-393); Potassium 3.5 mmol/L (3.5-5.1); Protein, Total 6.9 g/dL (6.4-8.2); Sodium Level 140 mmol/L (136-145)
--- NOTE | 2019-07-13 23:01 | ED.VIS.GEN ---
History of Present Illness Chief Complaint: Abd Pain Informant: Patient, Family Onset: Yesterday Current Severity: Mild Maximum Severity: Moderate Narrative: Patient presents for complaint of abdominal pain and vomiting. She states she had some mild abdominal pain yesterday but it seemed to worsen today. She points diffusely throughout her abdomen. She states she has not been urinating as much today and did have some vomiting as well. She has not noted a fever. She does report having a small bowel movement this morning and has been able to pass gas today. Prior abdominal surgeries include appendectomy and hysterectomy as well as oophorectomy. She denies having a abnormal colonoscopy in the past. - Past Medical History (1) Ovarian cancer Status: Chronic (2) History of acute myocardial infarction of anterolateral wall Status: Chronic (3) History of pulmonary embolism Status: Chronic (4) History of DVT (deep vein thrombosis) Status: Chronic (5) Stented coronary artery Status: Chronic Comment: PTCA LAD X w stents 03/06/06, 10/18/07 (6) Paroxysmal atrial fibrillation Status: Chronic (7) Atherosclerotic heart disease of [place] coronary artery without angina pectoris Status: Chronic Comment: S/P bypass surgery in 1999 with PATINO to LAD and SVG to diagonal; stenting x2 to LAD in February 2006 and September 2007; (8) H/O coronary artery bypass surgery Status: Chronic Comment: CABG PATINO graft LAD, pericardial drainage/window for pericardial effusion March 2000, saphenous vein graft to Diag 26 February 2000 (9) Hypertension Status: Chronic (10) GERD (gastroesophageal reflux disease) Status: Chronic (11) Hypothyroid Status: Chronic (12) Hyperlipidemia Status: Chronic Past Medical History - Allergies and Home Meds Allergies/Adverse Reactions: Allergies streptokinase [Streptokinase] Adverse Reaction (Severe, Verified 07/13/19 21:44) Hives Surgical History: appendectomy, coronary bypass surgery, hysterectomy Lives: Spouse/ Significant Other Smoking Status: Former smoker Review of Systems General: Denies: Chills, Fever Eyes: Denies: Visual changes - bilaterally ENT: Denies: Bilateral ear pain Cardiovascular: Denies: Chest pain Respiratory: Denies: Dyspnea, Cough Gastrointestinal: Reports: Abdominal pain, Nausea, Vomiting. Denies: Diarrhea Genitourinary: Reports: - - Decreased urine output. Denies: Dysuria Musculoskeletal: Denies: Extremity Pain Skin: Denies: Rash Neurological: Denies: Headache Allergy: Denies: Uticaria Physical Exam Vital Signs/Narrative: Vital Signs Temp Pulse Resp BP Pulse Ox 07/13/19 21:44 97.6 F L 57 L 18 190/82 H 98 Inital Vital Signs reviewed: Yes General: Well nourished, Well developed Head: Normocephalic ENT: Moist mucous membranes Neck: Supple Cardiovascular: Regular rate, Regular rhythm Respiratory: No distress, CTA bilaterally Abdomen: Soft, Tender - Mild diffuse tenderness with patient., Hypoactive bowel sounds. Negative for: Guarding, Rebound tenderness Extremities: Nontender Skin: Normal color Neurological: Alert, Oriented x3 Psychological: Normal affect Diagnostic/Tx/Re-eval Impressions Abdomen/Pelvis CT 07/13/19 22:09 IMPRESSION: Probable small bowel obstruction. Surgical consultation recommended. Electronically Signed: Derick Bee MD at 23:33 EST , Service support , 07/13/19 22:09 Abdomen/Pelvis without Cont [CT] Stat Laboratory Results 07/13/19 07/13/19 07/13/19 22:20 22:20 22:20 WBC 11.2 H RBC 5.15 Hgb 14.3 Hct 45.0 MCV 87.4 MCH 27.8 MCHC 31.8 L RDW Std Deviation 40.8 RDW Coeff of Burke 12.7 Plt Count 276 MPV 11.3 Immature Gran % (Auto) 0.400 Neut % (Auto) 80.3 H Lymph % (Auto) 13.0 L [place] % (Auto) 5.7 Eos % (Auto) 0.2 Baso % (Auto) 0.4 Absolute Neuts (auto) 9.0 H Absolute Lymphs (auto) 1.46 Nucleated RBC % 0 PT 15.6 H INR 1.3 Sodium 140 Potassium 3.5 Chloride 103 Carbon Dioxide 29.0 Anion Gap 8 BUN 21 H Creatinine 1.21 H Estim Creat Clear Calc 33.09 Est GFR (MDRD) Af Amer 55 L Est GFR (MDRD) Non-Af 46 L BUN/Creatinine Ratio 17.4 Glucose 134 H Calcium 9.3 Total Bilirubin 0.60 Direct Bilirubin 0.19 AST 21 ALT 30 Alkaline Phosphatase 53 Troponin I < 0.015 Total Protein 6.9 Albumin 3.7 Globulin 3.2 Lipase 63 L Urine Color Urine Clarity Urine pH Ur Specific [place] Urine Protein Urine Glucose (UA) Urine Ketones Urine Occult Blood Urine Nitrite Urine Bilirubin Urine Urobilinogen Ur Leukocyte Esterase Urine RBC Urine WBC Ur Squamous Epith Cells Urine Bacteria Hyaline Casts Urine Mucus 07/13/19 23:20 WBC RBC Hgb Hct MCV MCH MCHC RDW Std Deviation RDW Coeff of [place] Plt Count MPV Immature Gran % (Auto) Neut % (Auto) Lymph % (Auto) [place] % (Auto) Eos % (Auto) Baso % (Auto) Absolute Neuts (auto) Absolute Lymphs (auto) Nucleated RBC % PT INR Sodium Potassium Chloride Carbon Dioxide Anion Gap BUN Creatinine Estim Creat Clear Calc Est GFR (MDRD) Af Amer Est GFR (MDRD) Non-Af BUN/Creatinine Ratio Glucose Calcium Total Bilirubin Direct Bilirubin AST ALT Alkaline Phosphatase Troponin I Total Protein Albumin Globulin Lipase Urine Color Yellow Urine Clarity Sl. Cloudy Urine pH 5.0 Ur Specific [place] 1.020 Urine Protein 30 H Urine Glucose (UA) Normal Urine Ketones 5 H Urine Occult Blood 10 H Urine Nitrite Negative Urine Bilirubin Negative Urine Urobilinogen Normal Ur Leukocyte Esterase 500 H Urine RBC 0 SEEN Urine WBC 50-100 SEEN Ur Squamous Epith Cells 0 SEEN Urine Bacteria 0 SEEN Hyaline Casts 0-5 SEEN Urine Mucus 2+ - EKG Initial EKG Interpretation: Sinus Bradycardia - Sinus bradycardia 54 bpm. She has anterior T inversion with minimal ST depression. This is unchanged when compared to prior studies. - Medical Decision Making Patient was given morphine and Zofran for pain and nausea. Test results are discussed with her. I did discuss with her that her CT scan shows a probable small bowel obstruction. She was able to pass gas today but states not as much as normal. She had a small bowel movement early this morning. Patient has had some vomiting. Patient is known to Dr. Ogden. Dr. Clayton was able to review her CT images from home. She did request that we go ahead and place NG tube at this time. Hospitalist will admit. ED Disposition - Plan for ED Patient: Disposition: Acute Care Hospital [facility] Diagnosis: Small bowel obstruction
[2019-07-13 23:25] LABS: Bacteria 0 SEEN /hpf (None Seen); Red Blood Cells-Urine 0 SEEN /hpf (0-5); Squamous Epithelial Cells - UA 0 SEEN /hpf (5-10)
[2019-07-13 23:32] LABS: Color, Urine Yellow (Yellow); Glucose, Dipstick Normal (Normal); Ketone-Dipstick 5 mg/dl (Negative); Leukocyte Esterase-Dipstick 500 /ul (Negative); Nitrite-Dipstick Negative (Negative); Occult Blood-Urine 10 /ul (Negative); Protein-Dipstick 30 mg/dl (Negative); Urine Bilirubin Dipstick Negative (Negative); Urine Clarity Sl. Cloudy (Clear); Urine Urobilinogen Normal (Normal)
[2019-07-13 23:48] LABS: Mucous, Urine 2+ /hpf (<or=2+); White Blood Cells 50-100 SEEN /hpf (0-5)
[2019-07-13 23:49] LABS: Hyaline Cast 0-5 SEEN /lpf (0-5)
--- NOTE | 2019-07-13 23:56 | PCM.HP.STD ---
Problem List (1) Small bowel obstruction Status: Acute (2) Ovarian cancer Status: Chronic Qualifiers: Laterality: unspecified laterality Qualified Code(s): C56.9 - Malignant neoplasm of unspecified ovary (3) History of pulmonary embolism Status: Chronic (4) History of DVT (deep vein thrombosis) Status: Chronic (5) Paroxysmal atrial fibrillation Status: Chronic (6) Atherosclerotic heart disease of [place] coronary artery without angina pectoris Status: Chronic Qualifiers: [place] vs. transplanted heart: [place] heart Qualified Code(s): I25.10 - Atherosclerotic heart disease of [place] coronary artery without angina pectoris Comment: S/P bypass surgery in 1999 with PATINO to LAD and SVG to diagonal; stenting x2 to LAD in February 2006 and September 2007; (7) H/O coronary artery bypass surgery Status: Chronic Comment: CABG PATINO graft LAD, pericardial drainage/window for pericardial effusion March 2000, saphenous vein graft to Diag 26 February 2000 (8) Hypertension Status: Chronic Qualifiers: Hypertension type: essential hypertension Qualified Code(s): I10 - Essential (primary) hypertension (9) GERD (gastroesophageal reflux disease) Status: Chronic Qualifiers: Esophagitis presence: esophagitis presence not specified Qualified Code(s): K21.9 - Gastro-esophageal reflux disease without esophagitis (10) Hypothyroid Status: Chronic Qualifiers: Hypothyroidism type: unspecified Qualified Code(s): E03.9 - Hypothyroidism, unspecified (11) Hyperlipidemia Status: Chronic Qualifiers: Hyperlipidemia type: pure hypercholesterolemia Qualified Code(s): E78.00 - Pure hypercholesterolemia, unspecified; E78.0 - Pure hypercholesterolemia History of Present Illness Date of Admission: 07/13/19 Chief Complaint: Abdominal pain The patient is a 78 y/o F w/ PMHx: CAD s/p CABG x 2 w/ PATINO to LAD, SVG to diagonal and PCI LAD x 2, HTN, HLD, Hx DVT/PE s/p IVC Filter, GERD, Hx ovarian CA, PAF, Hypothyroidism who presents to the [facility] ED on 07/13/19 with history of progressively worsening mid abdominal pain x 48 hours, described as a dull ongoing discomfort with intermittent cramping noted to be 8-10 in severity out of 10 at its worse, currently 2-3 out of 10 in severity upon ED evaluation but notes that it had worsened on ED day of presentation with associated nausea and vomiting as well as abdominal distention with no associated fever or chills with reportedly a small bowel movement on day of ED presentation in the early a.m., more loose with her last good bowel movement noted the Sunday prior with ongoing supposed flatus prompting eventual ED presentation. Work-up in the ED included T 97.6, heart rate 57, BP 190/82, respiratory rate 18, 98% on room air, CBC with WBC 11.2, hemoglobin 14.3, platelet 276 with left shift, coags with PT 15.6, INR 1.3, CMP with BUN/creatinine 21/1.21, glucose 134, troponin less than 0.015, lipase 63, CT A/P with probable small bowel obstruction. In the ED patient ministered Zofran, morphine as well as normal saline. ED discussed case with general surgeon, Dr. Clayton who requested NG tube placement. Past Medical History Past Medical History (Chronic Problems): Chronic Problems (Last Reviewed 07/07/19 @ 12:47 by Teena Escalante) Ovarian cancer (Chronic) 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) History of pulmonary embolism (Chronic) History of DVT (deep vein thrombosis) (Chronic) Stented coronary artery (Chronic 10/18/07) PTCA LAD X w stents 03/06/06, 10/18/07 Paroxysmal atrial fibrillation (Chronic) Atherosclerotic heart disease of [place] coronary artery without angina pectoris (Chronic) S/P bypass surgery in 1999 with PATINO to LAD and SVG to diagonal; stenting x2 to LAD in February 2006 and September 2007; H/O coronary artery bypass surgery (Chronic) CABG PATINO graft LAD, pericardial drainage/window for pericardial effusion March 2000, saphenous vein graft to Diag 26 February 2000 Wide-complex tachycardia (Chronic) Hypertension (Chronic) GERD (gastroesophageal reflux disease) (Chronic) Hypothyroid (Chronic) Hyperlipidemia (Chronic) Medical History: Medical History (Last Reviewed 07/07/19 @ 12:47 by Teena Escalanet) History of acute myocardial infarction of anterolateral wall (Chronic) Onset Date: 02/2000 I25.2 History of pulmonary embolism (Chronic) Z86.711 History of DVT (deep vein thrombosis) (Chronic) Z86.718 Paroxysmal atrial fibrillation (Chronic) I48.0 Atherosclerotic heart disease of [place] coronary artery without angina pectoris (Chronic) I25.10 S/P bypass surgery in 1999 with PATINO to LAD and SVG to diagonal; stenting x2 to LAD in February 2006 and September 2007; Wide-complex tachycardia (Chronic) I47.2 Hypertension (Chronic) I10 GERD (gastroesophageal reflux disease) (Chronic) K21.9 Hypothyroid (Chronic) E03.9 Hyperlipidemia (Chronic) E78.5 Other home lending officer (current) drug therapy Z79.899 Ovarian cancer C56.9 Stress incontinence N39.3 ivc filter retreval Abnormal dobutamine stress echocardiogram R94.39 DVT (deep venous thrombosis) I82.409 Dyspnea on exertion (Resolved) R06.09 Pericardial effusion I31.3 s/p CABG march 2000 Pulmonary emboli (Resolved) I26.99 UTI (urinary tract infection) N39.0 Allergies streptokinase [Streptokinase] Adverse Reaction (Severe, Verified 07/13/19 21:44) Hives Home Medications: Ambulatory Orders Medication Instructions Recorded Aspirin E.C. [Ecotrin] 81 mg PO DAILY@0800 04/03/13 Sucralfate [Carafate] 1 gm PO TID 01/28/14 Albuterol IH (ProAir) [Proair Hfa] 2 puff INHALATION Q6H PRN 11/09/15 warfarin 5 mg tablet 5 mg PO SUMOTUWEFRSA 02/11/18 cholecalciferol (vitamin D3) 1,250 50,000 unit PO QWEEK 08/26/18 mcg (50,000 unit) capsule niacin 500 mg tablet,extended 500 mg PO BID #60 tab 11/04/18 release 24 hr rosuvastatin 40 mg tablet 40 mg PO QHS #30 tab 12/18/18 Calcium Carbonate [Calcium] 600 mg PO DAILY 01/02/19 atenolol 50 mg tablet 50 mg PO BID #60 tab 02/05/19 hydrochlorothiazide 12.5 mg capsule 12.5 mg PO DAILY #90 cap 02/21/19 nitroglycerin 0.4 mg sublingual 0.4 mg SUBLINGUAL Q5M PRN #25 tab 03/31/19 tablet Clobetasol Propionate/Emoll 30 gm TP DAILY PRN 07/07/19 [Clobetasol Emollient 0.05% Crm] Estradiol Cream 0.1 % TP DAILY PRN 07/07/19 Levothyroxine Sodium [Levoxyl] 125 mcg PO DAILY 07/07/19 Ramipril 20 mg PO DAILY 07/07/19 Trospium Chloride [Sanctura Xr] 60 mg PO DAILY 07/07/19 Surgical History: Surgical History (Last Reviewed 07/07/19 @ 12:47 by Teena Escalante) Stented coronary artery (Chronic) Onset Date: 10/18/07 Z95.5 PTCA LAD X w stents 03/06/06, 10/18/07 H/O coronary artery bypass surgery (Chronic) Z95.1 CABG PATINO graft LAD, pericardial drainage/window for pericardial effusion March 2000, saphenous vein graft to Diag 26 February 2000 History of back surgery Z98.890 History of hysterectomy Z98.890, Z90.710 History of thyroidectomy E89.0 Hx of appendectomy Z98.890, Z90.49 Surgical History: appendectomy, coronary bypass surgery, hysterectomy, - - CABG x2, PCI x2, back surgery, hysterectomy, thyroidectomy, appendectomy. Psychiatric History: No pertinent psych hx [employer] History: ovarian cancer Lives: Spouse/ Significant Other Smoking Status: Former smoker - Patient quit cigarette tobacco usage approximately 20 years prior with prior to this noting that 3 packs would last her about a week and noted to start when she was a teenager. Tobacco Use: Non-smoker Alcohol: None Drugs: None - *Family History Maternal Family History: Family History (Last Reviewed 07/07/19 @ 12:48 by Teena Escalante) Brother Hypertension Cancer Mother CVA (cerebral vascular accident) Hypertension History Items: Hypertension, Stroke Paternal Family History: Family History (Last Reviewed 07/07/19 @ 12:48 by Teena Escalante) Brother Hypertension Cancer Mother CVA (cerebral vascular accident) Hypertension History Items: - - Patient notes that she did not know her biological father nor any of his medical history. Review of Systems Constitutional: Reports: Anorexia, Weakness, Fatigue. Denies: Chills, Fever, Weight Change HEENT: Denies: Head Aches, Sinus Congestion, Sinus Drainage Cardiovascular: Denies: Chest Pain, Palpitations Respiratory: Denies: Cough, Shortness of breath at rest, Sputum production Gastrointestinal: Reports: Abdominal Pain, Diarrhea - More small loose stool in a.m. but not specifically diarrhea., Nausea, Vomiting Genitourinary: Denies: Dysuria Musculoskeletal: Reports: Back Pain, Joint Pain. Denies: Joint Tenderness Skin: Denies: Rash, Wounds Neurological: Denies: Numbness, Tingling, Focal weakness Psychiatric: Denies: Anxiety, Depression, Homicidal Ideations, Suicidal Ideations Hematologic/ Lymphatic: Reports: Easy Bruising, Easy Bleeding VTE Information - Inpt Only VTE Present on Admission: No VTE Mechan Device Prophylaxis: SCD's VTE Pharm Prophylaxis ordered?: Yes Patient Problems: Active and Suspected Problems (Last Reviewed 07/07/19 @ 12:47 by Teena Escalante) Small bowel obstruction (Acute) Subjective: Seated upright in ED bed, fatigued appearance, notes ongoing abdominal discomfort and distention, awaiting NG tube placement. Objective: Physical Examination: General: awake, alert, oriented x 3 and cooperative, seated upright in the ED bed, fatigued appearance, mildly uncomfortable. Skin: normal color, turgor, no icterus, cyanosis. HEENT: AT/NC, EOMI, PERRLA, dry MM, no carotid bruits or JVD noted; however, thickened neck makes examination difficult. Lungs: CTA bilaterally, moderate effort, moderate decrease BL bases, no rales, ronchi or wheezing. Heart: Regular rate and rhythm; no gallop, rub audible. Abdomen: soft, obese, generalized tenderness to palpation, distended, absent bowel sounds, difficult to assess HSM secondary to habitus and discomfort. Extremities: no cyanosis, clubbing, or edema. Neurological: patient awake, alert, oriented x 3; cognitive function intact; pupils equally reactive to light and accomodation; cranial nerves II-XII grossly normal, moving all 4 extremities, no focal deficits, strength moderately to severely global decrease secondary to acute presentation. Psychiatric: affect appears fatigued, mildly uncomfortable, no acute evidence of depressive or anxiety feelings. - Physical Exam Vitals/I&O's: Vital Signs Temp Pulse Resp BP Pulse Ox 97.6 F L 57 L 18 190/82 H 98 07/13/19 21:44 07/13/19 21:44 07/13/19 21:44 07/13/19 21:44 07/13/19 21:44 Oxygen Delivery Method Room Air Weight: 207 lb Body Mass Index (BMI) 35.5 Laboratory Results 07/13/19 22:20: WBC 11.2 H, RBC 5.15, Hgb 14.3, Hct 45.0, MCV 87.4, MCH 27.8, MCHC 31.8 L, RDW Std Deviation 40.8, RDW Coeff of [place] 12.7, Plt Count 276, MPV 11.3, Immature Gran % (Auto) 0.400, Neut % (Auto) 80.3 H, Lymph % (Auto) 13.0 L, [place] % (Auto) 5.7, Eos % (Auto) 0.2, Baso % (Auto) 0.4, Absolute Neuts (auto) 9.0 H, Absolute Lymphs (auto) 1.46, Nucleated RBC % 0 07/13/19 22:20: PT 15.6 H, INR 1.3 07/13/19 22:20: Sodium 140, Potassium 3.5, Chloride 103, Carbon Dioxide 29.0, Anion Gap 8, BUN 21 H, Creatinine 1.21 H, Estim Creat Clear Calc 33.09, Est GFR (MDRD) Af Amer 55 L, Est GFR (MDRD) Non-Af 46 L, BUN/Creatinine Ratio 17.4, Glucose 134 H, Calcium 9.3, Total Bilirubin 0.60, Direct Bilirubin 0.19, AST 21, ALT 30, Alkaline Phosphatase 53, Troponin I < 0.015, Total Protein 6.9, Albumin 3.7, Globulin 3.2, Lipase 63 L 07/13/19 23:20: Urine Color Yellow, Urine Clarity Sl. Cloudy, Urine pH 5.0, Ur Specific [place] 1.020, Urine Protein 30 H, Urine Glucose (UA) Normal, Urine Ketones 5 H, Urine Occult Blood 10 H, Urine Nitrite Negative, Urine Bilirubin Negative, Urine Urobilinogen Normal, Ur Leukocyte Esterase 500 H, Urine RBC 0 SEEN, Urine WBC 50-100 SEEN, Ur Squamous Epith Cells 0 SEEN, Urine Bacteria 0 SEEN, Hyaline Casts 0-5 SEEN, Urine Mucus 2+ Current Medications Sodium Chloride () 1,000 mls @ 150 mls/hr IV .Q6H40M [facility] Last Admin: 07/13/19 22:29 Dose: 150 mls/hr Documented by: Assessment/Plan All Active Problems (Last Reviewed 07/07/19 @ 12:47 by Teena Escalante) Chest pain due to CAD (Acute) Chest pain (Acute) Small bowel obstruction (Acute) Left-sided pyelonephritis (Acute) Dyspnea on exertion (Resolved) Pulmonary emboli (Resolved) The patient is a 78 y/o F w/ PMHx: CAD s/p CABG x 2 w/ PATINO to LAD, SVG to diagonal and PCI LAD x 2, HTN, HLD, Hx DVT/PE s/p IVC Filter, GERD, Hx ovarian CA, PAF, Hypothyroidism who presents to the [facility] ED on 07/13/19 with history of progressively worsening mid abdominal pain x 48 hours, described as a dull ongoing discomfort with intermittent cramping with associated nausea and vomiting as well as abdominal distention with no associated fever or chills. 1. Intractable abdominal pain, nausea and emesis secondary to SBO: Work-up in the ED included T 97.6, heart rate 57, BP 190/82, respiratory rate 18, 98% on room air, CBC with WBC 11.2, hemoglobin 14.3, platelet 276 with left shift, coags with PT 15.6, INR 1.3, CMP with BUN/creatinine 21/1.21, glucose 134, troponin less than 0.015, lipase 63, CT A/P with probable small bowel obstruction. In the ED patient ministered Zofran, morphine as well as normal saline. ED discussed case with general surgeon, Dr. Clayton who requested NG tube placement. Will admit to MS, maintain on IVFs, continue NGT to suction, strict I&Os, IV pain/anti-emetics PRN, serial KUB as needed to montior bowel function, Famotidine IV, maintain NPO on bowel rest. General surgery Dr. Clayton consulted, pending. 2. Mild renal insufficiency: Secondary to acute presentation #1 with GI losses and poor intake, admission BUN/creatinine 21/1.21, creatinine clearance 33, baseline creatinine normally 0.9, continue to hydrate, repeat BMP in AM. 3. CAD: s/p CABG x 2 w/ PATINO to LAD, SVG to diagonal and PCI LAD x 2, will temporarily hold home aspirin, atenolol, ramipril, statin therapy. 4. Hx DVT/PE: Patient s/p IVC Filter, given acute presentation will temporarily hold Coumadin and transition to therapeutic Lovenox. 5. PAF: We will temporarily hold patient atenolol as well as Coumadin, transition to therapeutic Lovenox. 6. Hypertension: We will temporarily hold home regimen including atenolol, lisinopril, hydrochlorothiazide given presentation with resumption once clinically improving, PRN hydralazine. 7. Hyperlipidemia: We will temporarily hold home statin regimen. 8. Hypothyroidism: We will temporarily hold home synthroid regimen. 9. History of ovarian cancer: Status post hysterectomy with bilateral salpingo-oophorectomy, remission. 10. DVT prophylaxis: SCDs, temporarily hold patient home Coumadin, subtherapeutic INR upon presentation, given current status as well as history of VTE will initiate overlapping therapeutic Lovenox. Code Visit Inpatient E&M: 45775 Init Hosp L3
[2019-07-14] VITALS (8 sets, daily range): BP systolic 129–183; BP diastolic 63–76; PULSE 52–80; RESP 16–19; TEMP 36.5–36.9; O2SAT 92–97; BMI 31.4
[2019-07-14] MEDS: Oxymetazoline 0.05% 1 SPRAY SPRAY.BTL 2 SPRAY NASAL (01:09)
--- NOTE | 2019-07-14 01:25 | RAD_ITS ---
STUDY: X-RAY - ABDOMEN/PELVIS REASON FOR EXAM: Female, 78 years old. Nasogastric tube placement. TECHNIQUE: AP supine abdomen. COMPARISON: [employer] view CT abdomen and pelvis July 13, 2011 FINDINGS: Normal visualized lung bases. Nasogastric tube tip in left upper quadrant in the region of the gastric fundus or proximal gastric body. Dilated loops of small bowel left abdomen partially visualized. There is no demonstrated free abdominal air. The visualized liver, spleen and kidneys are grossly normal in size and morphology. Normal soft tissue structures. Normal visualized osseous structures. Sternal wires are present. RAD/Abdomen Single View (Portable) IMPRESSION: Nasogastric tube tip in its expected location. Known small bowel obstruction. Electronically Signed: Frandy Anne MD at 2:23 EST , Service support ,
[2019-07-14] MEDS: Lidocaine 4% 5 ML Ampul 2 ML INHALATION (03:38)
[2019-07-14] MEDS: 0.9% Normal Saline 1,000 ML 125 ML IV ×3 (04:23→23:59)
--- NOTE | 2019-07-14 06:15 | RAD_ITS ---
STUDY: X-RAY - ABDOMEN/PELVIS REASON FOR EXAM: Female, 78 years old. SBO, NG TUBE, HX OF GALLBLADDER REMOVED and amp; HYSTERECTOMY TECHNIQUE: AP supine and upright views of the abdomen and pelvis. COMPARISON: Comparison is made with prior examination dated July 14, 2019. FINDINGS: A nasogastric tube is seen. The tip is in the body of the stomach. Gas and fecal material is seen in the colon. The small bowel is less distended at this time. There is no demonstrated free abdominal air. The visualized liver, spleen and kidneys are grossly normal in size and morphology. Normal soft tissue structures. There are diffuse degenerative changes of the visualized lumbar spine. RAD/Abd Decub and/or Erect(Portabl IMPRESSION: Gas and fecal material is seen throughout the colon. Less small bowel dilatation at this time. Electronically Signed: Mariano Blackmon, at 10:29 EST , Service support ,
[2019-07-14 06:32] LABS: Anion Gap 4 (5-15); BUN 18 mg/dL (7-18); BUN/Creat Ratio 19.3 RATIO (10-20); Calcium,Total 8.9 mg/dL (8.5-10.1); Chloride 106 mmol/L (98-107); Creatinine, Serum 0.93 mg/dL (0.55-1.02); EST Glomerular Filtration Rate 62 mL/min (>60); Est Glom Filt Rate - Afr Amer 75 mL/min (>60); Estimated Creatinine Clearance 43.05 ml/min; Glucose 89 mg/dL (74-106); Potassium 3.5 mmol/L (3.5-5.1); Sodium Level 140 mmol/L (136-145)
[2019-07-14 06:55] LABS: Absolute Lymphocyte Count 1.96 X10^3/uL (0.83-4.51); Absolute Neutrophil Count 6.3 X10^3/uL (2.0-7.7); Basophil# 0.03 X10^3/uL; Basophil% 0.3 % (0-1); Eosinophil# 0.04 X10^3/uL; Eosinophils% 0.4 % (0-5); Hematocrit 44.4 % (37-47); Hemoglobin 13.8 g/dL (12.0-15.0); Lymphocyte # 1.96 X10^3/ul (4.0); Lymphocyte % 21.5 % (19-41); Mean Corp Hgb Conc 31.1 g/dL (32-36); Mean Corpuscular Hgb 27.4 pg (27.0-32.0); Mean Corpuscular Volume 88.1 fL (81-99); Mean Platelet Vol. 11.9 fl (6.2-12.0); Monocyte# 0.78 X10^3/uL; Monocyte% 8.5 % (0-10); NRBC Flagged by Analyzer 0 % (0-5); Neutrophil # 6.28 X10^3/uL (2.7-7.7); Neutrophil % 68.9 % (47-70); Platelet Count 252 K/mm3 (150-450); RBC Distribution Width SD 41.5 fl (35.1-43.9); Red Blood Count 5.04 M/mm3 (4.2-5.4); White Blood Count 9.1 K/mm3 (4.4-11.0)
[2019-07-14 07:47] LABS: Hemoglobin A1c 5.7 % (4.2-6.3)
--- NOTE | 2019-07-14 08:16 | PCM.CONS.GEN ---
Reason for Consult Date of Consultation: 07/14/19 History of Present Illness: The patient is a 78 year old F presented to the ER due to abdominal pain which had been gone for a couple days but got worse yesterday. Patient states she has been passing flatus and states she normally has bowel movements about every day. Patient CT abdomen pelvis did show some fecal adjacent small bowel as well as a change in caliber consistent with a small bowel obstruction. Patient denies ever having a previous bowel obstruction in the past. Patient has had a total hysterectomy due to ovarian cancer which she is currently in remission and also an appendectomy in the past. Patient states her last colonoscopy was about 10 years ago they have been negative. Currently patient denies any abdominal pain did have an NG placed in the ER which only put about 150 cc for saliva/phlegm looking material, patient still states she is passing flatus. Patient's white blood count admission was 11.2 currently down to 9. Past Medical History Past Medical History (Chronic Problems): Chronic Problems (Last Reviewed 07/07/19 @ 12:47 by Teena Escalante) Ovarian cancer (Chronic) 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) History of pulmonary embolism (Chronic) History of DVT (deep vein thrombosis) (Chronic) Stented coronary artery (Chronic 10/18/07) PTCA LAD X w stents 03/06/06, 10/18/07 Paroxysmal atrial fibrillation (Chronic) Atherosclerotic heart disease of [place] coronary artery without angina pectoris (Chronic) S/P bypass surgery in 1999 with PATINO to LAD and SVG to diagonal; stenting x2 to LAD in February 2006 and September 2007; H/O coronary artery bypass surgery (Chronic) CABG PATINO graft LAD, pericardial drainage/window for pericardial effusion March 2000, saphenous vein graft to Diag 26 February 2000 Wide-complex tachycardia (Chronic) Hypertension (Chronic) GERD (gastroesophageal reflux disease) (Chronic) Hypothyroid (Chronic) Hyperlipidemia (Chronic) Medical History: Medical History (Last Reviewed 07/07/19 @ 12:47 by Teena Escalante) History of acute myocardial infarction of anterolateral wall (Chronic) Onset Date: 02/2000 I25.2 History of pulmonary embolism (Chronic) Z86.711 History of DVT (deep vein thrombosis) (Chronic) Z86.718 Paroxysmal atrial fibrillation (Chronic) I48.0 Atherosclerotic heart disease of [place] coronary artery without angina pectoris (Chronic) I25.10 S/P bypass surgery in 1999 with PATINO to LAD and SVG to diagonal; stenting x2 to LAD in February 2006 and September 2007; Wide-complex tachycardia (Chronic) I47.2 Hypertension (Chronic) I10 GERD (gastroesophageal reflux disease) (Chronic) K21.9 Hypothyroid (Chronic) E03.9 Hyperlipidemia (Chronic) E78.5 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 [Ecotrin] 81 mg PO DAILY@0800 04/03/13 Sucralfate [Carafate] 1 gm PO TID 01/28/14 Albuterol IH (ProAir) [Proair Hfa] 2 puff INHALATION Q6H PRN 11/09/15 warfarin 5 mg tablet 5 mg PO SUMOTUWEFRSA 02/11/18 cholecalciferol (vitamin D3) 1,250 50,000 unit PO QWEEK 08/26/18 mcg (50,000 unit) capsule Calcium Carbonate [Calcium] 600 mg PO DAILY 01/02/19 nitroglycerin 0.4 mg sublingual 0.4 mg SUBLINGUAL Q5M PRN #25 tab 03/31/19 tablet Clobetasol Propionate/Emoll 30 gm TP DAILY PRN 07/07/19 [Clobetasol Emollient 0.05% Crm] Estradiol Cream 0.1 % TP PRN PRN 07/07/19 Levothyroxine Sodium [Levoxyl] 125 mcg PO DAILY 07/07/19 Ramipril 20 mg PO DAILY 07/07/19 Trospium Chloride [Sanctura Xr] 60 mg PO DAILY 07/07/19 Atenolol [Tenormin (beta chan)] 50 mg PO BID 07/14/19 Hydrochlorothiazide 12.5 mg PO DAILY 07/14/19 Niacin SA [Niaspan] 500 mg PO QHS 07/14/19 Rosuvastatin Calcium 40 mg PO QHS 07/14/19 Surgical History: Surgical History (Last Reviewed 07/07/19 @ 12:47 by Teena Escalante) Stented coronary artery (Chronic) Onset Date: 10/18/07 Z95.5 PTCA LAD X w stents 03/06/06, 10/18/07 H/O coronary artery bypass surgery (Chronic) Z95.1 CABG PATINO graft LAD, pericardial drainage/window for pericardial effusion March 2000, saphenous vein graft to Diag 26 February 2000 History of back surgery Z98.890 History of hysterectomy Z98.890, Z90.710 History of thyroidectomy E89.0 Hx of appendectomy Z98.890, Z90.49 Surgical History: appendectomy, coronary bypass surgery, hysterectomy, - - CABG x2, PCI x2, back surgery, hysterectomy, thyroidectomy, appendectomy. 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 Lives: Spouse/ Significant Other Smoking Status: Former smoker Tobacco Use: Non-smoker Alcohol: None Drugs: None - *Family History Maternal Family History: Family History (Last Reviewed 07/07/19 @ 12:48 by Teena Escalante) Brother Hypertension Cancer Mother CVA (cerebral vascular accident) Hypertension History Items: Hypertension, Stroke Paternal Family History: Family History (Last Reviewed 07/07/19 @ 12:48 by Teena Escalante) Brother Hypertension Cancer Mother CVA (cerebral vascular accident) Hypertension History Items: - - Patient notes that she did not know her biological father nor any of his medical history. Review of Systems Constitutional: Denies: Fever Eyes: Denies: Blurred vision HEENT: Denies: Difficulty Swallowing Cardiovascular: Denies: Chest Pain Respiratory: Denies: Cough, Shortness of breath at rest Gastrointestinal: Reports: Abdominal Pain - None currently Genitourinary: Denies: Dysuria Skin: Denies: Rash Neurological: Denies: Balance problems Hematologic/ Lymphatic: Reports: Easy Bleeding Patient Problems: Active and Suspected Problems (Last Reviewed 07/07/19 @ 12:47 by Teena Escalante) Small bowel obstruction (Acute) - Physical Exam Vitals/I&O's: Vital Signs Temp Pulse Resp BP Pulse Ox 98.2 F 56 L 16 143/72 H 95 0217/20 06:42 07/14/19 06:42 07/14/19 06:42 07/14/19 06:42 07/14/19 07:51 Oxygen Delivery Method Room Air Weight: 186 lb 1.122 oz Body Mass Index (BMI) 31.4 Intake and Output for Last 24 Hours 07/12/19 07/13/19 07/14/19 23:59 23:59 23:59 Intake Total 1017.5 / 1017.5 Output Total 150 / 150 Balance 867.5 / 867.5 General: Alert, Oriented x3, Cooperative, No apparent distress HEENT: - - NG in place Lungs: Normal air movement Cardiovascular: Regular rate Abdomen: Soft, Non Tender, Non-Distended Extremities: No clubbing, No cyanosis, No edema Neurological: Cranial nerves II-XII grossly intact Psych/Mental Status: Normal Affect Laboratory Results 07/13/19 22:20: WBC 11.2 H, RBC 5.15, Hgb 14.3, Hct 45.0, MCV 87.4, MCH 27.8, MCHC 31.8 L, RDW Std Deviation 40.8, RDW Coeff of Burke 12.7, Plt Count 276, MPV 11.3, Immature Gran % (Auto) 0.400, Neut % (Auto) 80.3 H, Lymph % (Auto) 13.0 L, [place] % (Auto) 5.7, Eos % (Auto) 0.2, Baso % (Auto) 0.4, Absolute Neuts (auto) 9.0 H, Absolute Lymphs (auto) 1.46, Nucleated RBC % 0 07/13/19 22:20: PT 15.6 H, INR 1.3 07/13/19 22:20: Sodium 140, Potassium 3.5, Chloride 103, Carbon Dioxide 29.0, Anion Gap 8, BUN 21 H, Creatinine 1.21 H, Estim Creat Clear Calc 33.09, Est GFR (MDRD) Af Amer 55 L, Est GFR (MDRD) Non-Af 46 L, BUN/Creatinine Ratio 17.4, Glucose 134 H, Calcium 9.3, Total Bilirubin 0.60, Direct Bilirubin 0.19, AST 21, ALT 30, Alkaline Phosphatase 53, Troponin I < 0.015, Total Protein 6.9, Albumin 3.7, Globulin 3.2, Lipase 63 L 07/13/19 23:20: Urine Color Yellow, Urine Clarity Sl. Cloudy, Urine pH 5.0, Ur Specific [place] 1.020, Urine Protein 30 H, Urine Glucose (UA) Normal, Urine Ketones 5 H, Urine Occult Blood 10 H, Urine Nitrite Negative, Urine Bilirubin Negative, Urine Urobilinogen Normal, Ur Leukocyte Esterase 500 H, Urine RBC 0 SEEN, Urine WBC 50-100 SEEN, Ur Squamous Epith Cells 0 SEEN, Urine Bacteria 0 SEEN, Hyaline Casts 0-5 SEEN, Urine Mucus 2+ 07/14/19 05:15: WBC 9.1, RBC 5.04, Hgb 13.8, Hct 44.4, MCV 88.1, MCH 27.4, MCHC 31.1 L, RDW Std Deviation 41.5, RDW Coeff of [place] 13.0, Plt Count 252, MPV 11.9, Immature Gran % (Auto) 0.400, Neut % (Auto) 68.9, Lymph % (Auto) 21.5, [place] % (Auto) 8.5, Eos % (Auto) 0.4, Baso % (Auto) 0.3, Absolute Neuts (auto) 6.3, Absolute Lymphs (auto) 1.96, Nucleated RBC % 0 07/14/19 05:15: Sodium 140, Potassium 3.5, Chloride 106, Carbon Dioxide 30.0, Anion Gap 4 L, BUN 18, Creatinine 0.93, Estim Creat Clear Calc 43.05, Est GFR (MDRD) Af Amer 75, Est GFR (MDRD) Non-Af 62, BUN/Creatinine Ratio 19.3, Glucose 89, Calcium 8.9 07/14/19 05:15: Hemoglobin A1c 5.7 Current Medications Albuterol Sulfate (Ventolin Aerosols) 2.5 mg INHALATION Q2H PRN PRN PRN Reason: Shortness of Breath/Wheezing Enoxaparin Sodium (Lovenox) 90 mg SC Q12 [facility] Last Admin: 07/14/19 04:23 Dose: Not Given Documented by: Glucagon () 1 mg IM .X1 PRN PRN Reason: Hypoglycemia Hydralazine HCl (Apresoline Iv) 10 mg IV Q4H PRN PRN PRN Reason: SBP > 160 Sodium Chloride () 1,000 mls @ 125 mls/hr IV .Q8H [facility] Last Admin: 07/14/19 04:23 Dose: 125 mls/hr Documented by: Famotidine 20 mg/ Sodium (Chloride) 10 mls @ 300 mls/hr IV Q12 [facility] Dextrose (Dextrose 10%-Water) 250 mls @ 999 mls/hr IV .Q16M PRN; Protocol PRN Reason: HYPOGLYCEMIA Morphine Sulfate () 4 mg IV Q2H PRN PRN PRN Reason: Pain Score 6-10/10 Ondansetron HCl (Zofran) 4 mg IV Q8H PRN PRN PRN Reason: NAUSEA/VOMITING Prochlorperazine Edisylate (Compazine Iv) 5 mg IV Q4H PRN PRN PRN Reason: Breakthrough nausea/vomiting Assessment/Plan All Active Problems (Last Reviewed 07/07/19 @ 12:47 by Teena Escalante) Chest pain due to CAD (Acute) Chest pain (Acute) Small bowel obstruction (Acute) Left-sided pyelonephritis (Acute) Dyspnea on exertion (Resolved) Pulmonary emboli (Resolved) 78-year-old female with possible small bowel obstruction 1. Discussed with patient would plan to do small bowel follow-through with Gastrografin, patient states she is passing flatus and only had 150 out of her NG overnight. Did discuss with patient that the Gastrografin probably can be therapeutic as well as diagnostic. If it does not move through into the colon we would talk further about possible surgery which could include laparoscopy or even laparotomy. Patient understood and had no further questions this time. 2. Continue to hold Coumadin currently. Nanette Clayton M.D. Pager: [phone] [facility] [address] [place] [address], [facility], [address] [place] [address] Office: [phone] Code Visit Inpatient E&M: 88199 Init Hosp L2
--- NOTE | 2019-07-14 08:17 | RAD_ITS ---
STUDY: GASTROGRAFIN SMALL BOWEL FOLLOW-THROUGH EXAMINATION. REASON FOR EXAM: Female, 78 years old. Small bowel obstruction -- abd pain and bloating x several days -- used gastrografin per Dr. Clayton TECHNIQUE: Gastrografin was introduced through the indwelling nasogastric tube. The small bowel follow-through examination was then obtained. COMPARISON: Comparison is made with prior radiograph of the abdomen dated July 14, 2021 earlier in the day. FINDINGS: Mild dilatation of the small bowel loops. There is delayed transit into the colon. A small amount of Gastrografin is seen within the right hemicolon at 230 minutes following the start of the examination. RAD/Small Bowel Series Only IMPRESSION: Findings suggestive of partial small bowel obstruction. Electronically Signed: Mariano Blackmon, at 15:41 EST , Service support ,
--- NOTE | 2019-07-14 10:17 | PCM.PN.HOSP ---
Patient Problems: Active and Suspected Problems (Last Reviewed 07/07/19 @ 12:47 by Teena Escalante) Small bowel obstruction (Acute) Reason for Visit: Follow-up on small bowel obstruction. Subjective: Patient was seen and examined. She has been passing flatus. Denies abdominal pain no nausea vomiting. NG tube remains in situ; drained 350mls. Denies any fever or chills. Objective: Physical exam: Vitals/I&O's: Vital Signs Temp Pulse Resp BP Pulse Ox 98.2 F 56 L 16 143/72 H 95 07/14/19 06:42 07/14/19 06:42 07/14/19 06:42 07/14/19 06:42 07/14/19 07:51 Oxygen Delivery Method Room Air Weight: 84.4 kg Body Mass Index (BMI) 31.4 Intake and Output for Last 24 Hours 07/12/19 07/13/19 07/14/19 23:59 23:59 23:59 Intake Total 1017.5 / 1017.5 Output Total 150 / 150 Balance 867.5 / 867.5 General: Alert, Oriented x3, Cooperative, No apparent distress, - - NG tube in situ, bilous fluid HEENT: Atraumatic, PERRLA, EOMI, Normocephalic Oral: Moist Mucosa Neck: Supple Lungs: Clear to auscultation, Normal air movement Cardiovascular: Regular rate, Regular Rhythm, Normal S1, Normal S2, No murmurs Abdomen: Bowel Sounds Present, Soft, Non Tender, Non-Distended, No Hepato-splenomegaly Extremities: No edema Skin: No rashes, No breakdown Musculoskeletal: No Tenderness to Palpation of Joints or Extremities Lymphatic: No Cervical, Supraclavicular, or Inguinal Adenopathy Neurological: Cranial nerves II-XII grossly intact, Neuro grossly intact Psych/Mental Status: Normal Affect, Appropriate Laboratory Results 07/13/19 22:20: WBC 11.2 H, RBC 5.15, Hgb 14.3, Hct 45.0, MCV 87.4, MCH 27.8, MCHC 31.8 L, RDW Std Deviation 40.8, RDW Coeff of [place] 12.7, Plt Count 276, MPV 11.3, Immature Gran % (Auto) 0.400, Neut % (Auto) 80.3 H, Lymph % (Auto) 13.0 L, [place] % (Auto) 5.7, Eos % (Auto) 0.2, Baso % (Auto) 0.4, Absolute Neuts (auto) 9.0 H, Absolute Lymphs (auto) 1.46, Nucleated RBC % 0 07/13/19 22:20: PT 15.6 H, INR 1.3 07/13/19 22:20: Sodium 140, Potassium 3.5, Chloride 103, Carbon Dioxide 29.0, Anion Gap 8, BUN 21 H, Creatinine 1.21 H, Estim Creat Clear Calc 33.09, Est GFR (MDRD) Af Amer 55 L, Est GFR (MDRD) Non-Af 46 L, BUN/Creatinine Ratio 17.4, Glucose 134 H, Calcium 9.3, Total Bilirubin 0.60, Direct Bilirubin 0.19, AST 21, ALT 30, Alkaline Phosphatase 53, Troponin I < 0.015, Total Protein 6.9, Albumin 3.7, Globulin 3.2, Lipase 63 L 07/13/19 23:20: Urine Color Yellow, Urine Clarity Sl. Cloudy, Urine pH 5.0, Ur Specific [place] 1.020, Urine Protein 30 H, Urine Glucose (UA) Normal, Urine Ketones 5 H, Urine Occult Blood 10 H, Urine Nitrite Negative, Urine Bilirubin Negative, Urine Urobilinogen Normal, Ur Leukocyte Esterase 500 H, Urine RBC 0 SEEN, Urine WBC 50-100 SEEN, Ur Squamous Epith Cells 0 SEEN, Urine Bacteria 0 SEEN, Hyaline Casts 0-5 SEEN, Urine Mucus 2+ 07/14/19 05:15: WBC 9.1, RBC 5.04, Hgb 13.8, Hct 44.4, MCV 88.1, MCH 27.4, MCHC 31.1 L, RDW Std Deviation 41.5, RDW Coeff of [place] 13.0, Plt Count 252, MPV 11.9, Immature Gran % (Auto) 0.400, Neut % (Auto) 68.9, Lymph % (Auto) 21.5, [place] % (Auto) 8.5, Eos % (Auto) 0.4, Baso % (Auto) 0.3, Absolute Neuts (auto) 6.3, Absolute Lymphs (auto) 1.96, Nucleated RBC % 0 07/14/19 05:15: Sodium 140, Potassium 3.5, Chloride 106, Carbon Dioxide 30.0, Anion Gap 4 L, BUN 18, Creatinine 0.93, Estim Creat Clear Calc 43.05, Est GFR (MDRD) Af Amer 75, Est GFR (MDRD) Non-Af 62, BUN/Creatinine Ratio 19.3, Glucose 89, Calcium 8.9 07/14/19 05:15: Hemoglobin A1c 5.7 Current Medications Albuterol Sulfate (Ventolin Aerosols) 2.5 mg INHALATION Q2H PRN PRN PRN Reason: Shortness of Breath/Wheezing Enoxaparin Sodium (Lovenox) 90 mg SC Q12 [facility] Last Admin: 07/14/19 04:23 Dose: Not Given Documented by: Glucagon () 1 mg IM .X1 PRN PRN Reason: Hypoglycemia Hydralazine HCl (Apresoline Iv) 10 mg IV Q4H PRN PRN PRN Reason: SBP > 160 Sodium Chloride () 1,000 mls @ 125 mls/hr IV .Q8H JOSE Last Admin: 07/14/19 04:23 Dose: 125 mls/hr Documented by: Famotidine 20 mg/ Sodium (Chloride) 10 mls @ 300 mls/hr IV Q12 JOSE Dextrose (Dextrose 10%-Water) 250 mls @ 999 mls/hr IV .Q16M PRN; Protocol PRN Reason: HYPOGLYCEMIA Morphine Sulfate () 4 mg IV Q2H PRN PRN PRN Reason: Pain Score 6-10/10 Ondansetron HCl (Zofran) 4 mg IV Q8H PRN PRN PRN Reason: NAUSEA/VOMITING Prochlorperazine Edisylate (Compazine Iv) 5 mg IV Q4H PRN PRN PRN Reason: Breakthrough nausea/vomiting STROKE Vital Signs/Narrative: Vital Signs Temp Pulse Resp BP Pulse Ox 07/14/19 07:51 95 07/14/19 06:42 98.2 F 56 L 16 143/72 H 95 Medical Necessity - Tobacco Use Smoking Status: Former smoker Tobacco Use: Non-smoker Assessment/Plan All Active Problems (Last Reviewed 07/07/19 @ 12:47 by Teena Escalante) Chest pain due to CAD (Acute) Chest pain (Acute) Small bowel obstruction (Acute) Left-sided pyelonephritis (Acute) Dyspnea on exertion (Resolved) Pulmonary emboli (Resolved) 78-year-old female with multiple comorbidities including hypertension, hypothyroidism, hyperlipidemia who comes in with complaints of abdominal pain has been managed as acute small bowel obstruction 1. Acute small bowel obstruction, being managed conservatively, kept NPO General surgery following, status post NG tube placement KUB this morning shows gas and feces in the colon. Patient underwent small bowel follow-through; results pending Continue to monitor 2. Acute kidney injury, pre-renal secondary to dehydration, Admitted with creatinine of 1.21, creatinine today 0.93, continue on IV fluids, repeat blood work in a.m. 3. CAD status post CABG,) stents/hypertension/hyperlipidemia - home atenolol, hydrochlorothiazide, rosuvastatin on hold on account of NPO status 4. History of DVT/PE status post IVC, on Lovenox therapeutic dosingy, Warfarin on hold Will restart Coumadin prior to discharge 5. Hypothyroidism, home levothyroxine on hold on account of NPO 6. Paroxysmal atrial fibrillation, in NSR, will continue to monitor 7. DVT PPX -on therapeutic Lovenox subcu Code Visit Inpatient E&M: 24117 Subs Hosp L2
[2019-07-14] MEDS: Enoxaparin 100 MG/ML Syringe 90 MG SC ×2 (12:18→21:08)
[2019-07-14] MEDS: Famotidine 200 MG/20 ML MDV 20 MG in 0.9% Normal Saline (Pres. free 8 ML 300 MG IV ×2 (12:21→21:08)
[2019-07-14] MEDS: Ondansetron 4 MG/2 ML Vial IV (12:40)
--- NOTE | 2019-07-14 13:10 | CASEMGMT ---
RN CM attempted to complete face to face assessment at this time. Patient is out of room for testing. RN CM will attempt assessment at later time.
[2019-07-14] MEDS: Bisacodyl 10 MG Suppository RECTAL ×2 (13:32→16:40)
--- NOTE | 2019-07-14 15:43 | CPS ---
patient has already been started on the incentive.
[2019-07-14] MEDS: proCHLORPERazine 10 MG/2 ML Vial 5 MG IV (19:49)
--- NOTE | 2019-07-14 21:00 | NURSING ---
Soap suds enema given. Patient able to tolerate half of the enema. Small results noted.
[2019-07-15] VITALS (7 sets, daily range): BP systolic 134–146; BP diastolic 57–81; PULSE 64–71; RESP 16–18; TEMP 36.6–36.9; O2SAT 92–96
[2019-07-15 05:27] LABS: Absolute Lymphocyte Count 1.87 X10^3/uL (0.83-4.51); Absolute Neutrophil Count 5.5 X10^3/uL (2.0-7.7); Basophil# 0.04 X10^3/uL; Basophil% 0.5 % (0-1); Eosinophil# 0.06 X10^3/uL; Eosinophils% 0.7 % (0-5); Hematocrit 40.8 % (37-47); Hemoglobin 12.4 g/dL (12.0-15.0); Lymphocyte # 1.87 X10^3/ul (4.0); Lymphocyte % 22.5 % (19-41); Mean Corp Hgb Conc 30.4 g/dL (32-36); Mean Corpuscular Hgb 26.7 pg (27.0-32.0); Mean Corpuscular Volume 87.7 fL (81-99); Monocyte# 0.82 X10^3/uL; Monocyte% 9.9 % (0-10); NRBC Flagged by Analyzer 0 % (0-5); Neutrophil % 66.2 % (47-70); Platelet Count 201 K/mm3 (150-450); RBC Distribution Width CV 13.2 % (11.6-14.6); RBC Distribution Width SD 42.5 fl (35.1-43.9); Red Blood Count 4.65 M/mm3 (4.2-5.4); White Blood Count 8.3 K/mm3 (4.4-11.0)
[2019-07-15 05:49] LABS: AST(SGOT) 19 U/L (15-37); Alanine Aminotransfer ALT/SGPT 20 U/L (13-56); Albumin, Serum 2.8 g/dL (3.2-5.0); Alkaline Phosphatase 42 U/L (45-117); Anion Gap 7 (5-15); BUN 17 mg/dL (7-18); BUN/Creat Ratio 21.9 RATIO (10-20); Chloride 111 mmol/L (98-107); Creatinine, Serum 0.78 mg/dL (0.55-1.02); EST Glomerular Filtration Rate 76 mL/min (>60); Est Glom Filt Rate - Afr Amer 92 mL/min (>60); Estimated Creatinine Clearance 40.04 ml/min; Globulin 2.9 g/dL (2.2-4.2); Glucose 79 mg/dL (74-106); Potassium 3.5 mmol/L (3.5-5.1); Protein, Total 5.7 g/dL (6.4-8.2); Sodium Level 143 mmol/L (136-145)
--- NOTE | 2019-07-15 05:55 | RAD_ITS ---
STUDY: X-RAY - ABDOMEN/PELVIS REASON FOR EXAM: Female, 78 years old. Partial small bowel obstruction TECHNIQUE: Single AP view of the abdomen / pelvis. COMPARISON: Comparison is made with prior examination dated July 14, 2019. FINDINGS: A nasogastric tube is seen within the body of the stomach. Oral contrast is seen within the colon. RAD/Abdomen Single View (Portable) IMPRESSION: Oral contrast is seen within the colon. Electronically Signed: Mariano Blackmon, at 9:53 EST , Service support ,
[2019-07-15] MEDS: 0.9% Normal Saline 1,000 ML 125 ML IV (06:34)
--- NOTE | 2019-07-15 09:06 | PCM.PN.SRG ---
Patient Problems: Active and Suspected Problems (Last Reviewed 07/07/19 @ 12:47 by Teena Escalante) Small bowel obstruction (Acute) Subjective: Patient's KUB from this morning shows contrast throughout the colon patient is having bowel movements as well as flatus. Denies abdominal pain, NG currently clamped for clamping trial - Physical Exam Vitals/I&O's: Vital Signs Temp Pulse Resp BP Pulse Ox 98.5 F 65 18 140/57 H 92 07/15/19 07:52 07/15/19 07:52 07/15/19 07:52 07/15/19 07:52 07/15/19 07:52 Oxygen Delivery Method Room Air Weight: 186 lb 1.122 oz Body Mass Index (BMI) 31.4 Intake and Output for Last 24 Hours 07/13/19 07/14/19 07/15/19 23:59 23:59 23:59 Intake Total 3716.67 / 3746.67 977.92 / 977.92 Output Total 875 / 1675 1000 / 1000 Balance 2841.67 / 2071.67 -22.08 / -22.08 General: Alert, Oriented x3, Cooperative, No apparent distress HEENT: Atraumatic Lungs: Normal air movement Cardiovascular: Regular rate Abdomen: Soft, Non Tender, Non-Distended Extremities: No clubbing, No cyanosis Neurological: Cranial nerves II-XII grossly intact Psych/Mental Status: Normal Affect Laboratory Results 07/15/19 04:50: WBC 8.3, RBC 4.65, Hgb 12.4, Hct 40.8, MCV 87.7, MCH 26.7 L, MCHC 30.4 L, RDW Std Deviation 42.5, RDW Coeff of Burke 13.2, Plt Count 201, MPV 12.0, Immature Gran % (Auto) 0.200, Neut % (Auto) 66.2, Lymph % (Auto) 22.5, [place] % (Auto) 9.9, Eos % (Auto) 0.7, Baso % (Auto) 0.5, Absolute Neuts (auto) 5.5, Absolute Lymphs (auto) 1.87, Nucleated RBC % 0 07/15/19 04:50: Sodium 143, Potassium 3.5, Chloride 111 H, Carbon Dioxide 25.0, Anion Gap 7, BUN 17, Creatinine 0.78, Estim Creat Clear Calc 40.04, Est GFR (MDRD) Af Amer 92, Est GFR (MDRD) Non-Af 76, BUN/Creatinine Ratio 21.9 H, Glucose 79, Calcium 8.0 L, Total Bilirubin 0.60, AST 19, ALT 20, Alkaline Phosphatase 42 L, Total Protein 5.7 L, Albumin 2.8 L, Globulin 2.9, Albumin/Globulin Ratio 1.0 Current Medications Albuterol Sulfate (Ventolin Aerosols) 2.5 mg INHALATION Q2H PRN PRN PRN Reason: Shortness of Breath/Wheezing Enoxaparin Sodium (Lovenox) 90 mg SC Q12 [facility] Last Admin: 07/14/19 21:08 Dose: 90 mg Documented by: Glucagon () 1 mg IM .X1 PRN PRN Reason: Hypoglycemia Hydralazine HCl (Apresoline Iv) 10 mg IV Q4H PRN PRN PRN Reason: SBP > 160 Sodium Chloride () 1,000 mls @ 125 mls/hr IV .Q8H [facility] Last Admin: 07/15/19 06:34 Dose: 125 mls/hr Documented by: Famotidine 20 mg/ Sodium (Chloride) 10 mls @ 300 mls/hr IV Q12 [facility] Last Infusion: 07/14/19 21:10 Dose: Infused Documented by: Dextrose (Dextrose 10%-Water) 250 mls @ 999 mls/hr IV .Q16M PRN; Protocol PRN Reason: HYPOGLYCEMIA Ondansetron HCl (Zofran) 4 mg IV Q8H PRN PRN PRN Reason: NAUSEA/VOMITING Last Admin: 07/14/19 12:40 Dose: 4 mg Documented by: Prochlorperazine Edisylate (Compazine Iv) 5 mg IV Q4H PRN PRN PRN Reason: Breakthrough nausea/vomiting Last Admin: 07/14/19 19:49 Dose: 5 mg Documented by: Medical Necessity - Tobacco Use Smoking Status: Former smoker Tobacco Use: Non-smoker Assessment/Plan All Active Problems (Last Reviewed 07/07/19 @ 12:47 by Teena Escalante) Chest pain due to CAD (Acute) Chest pain (Acute) Small bowel obstruction (Acute) Left-sided pyelonephritis (Acute) Dyspnea on exertion (Resolved) Pulmonary emboli (Resolved) 78-year-old female with partial small bowel obstruction?resolving 1. Gastrografin did take a while yesterday to get into the colon, currently KUB shows contrast breath: Patient has been having multiple bowel movements as well as passing flatus. We will do an NG clamping trial x5 hours and check the residual 2. Continue to hold Coumadin currently. Nanette Clayton M.D. Pager: [phone] [facility] [address] [place] [address], [facility] [place], [address] [place] [address] Office: [phone] Code Visit Inpatient E&M: 75932 Subs Hosp L1
[2019-07-15] MEDS: Famotidine 200 MG/20 ML MDV 20 MG in 0.9% Normal Saline (Pres. free 8 ML 300 MG IV ×2 (10:55→21:27)
[2019-07-15] MEDS: Enoxaparin 100 MG/ML Syringe 90 MG SC ×2 (10:56→21:26)
--- NOTE | 2019-07-15 12:42 | NURSING ---
Student documentation reviewed.
--- NOTE | 2019-07-15 14:17 | CASEMGMT ---
RN CM Face to Face with patient for initial transition planning/care coordination assessment. RN CM introduced self and role at [facility]. Patient lying in bed, alert and oriented. Patient willing to participate in assessment and is able to answer all questions appropriately. Care providers, pharmacy, and demographics verified. Patient wishes to discharge home, denies need for home health at this time. Patient states she has no further needs or concerns at this time. CM to follow for discharge planning needs that may arise. PCP: Amy Specialists: Sherif mogul operator; Monserrat, hematology Preferred Pharmacy: [facility] Insurance: [facility] Prescription Benefit: yes Living Will/HPOA: yes, Jose Angel Scott LNOK: Living Arrangements: Patient lives with in 1 story home with 2 steps to enter the home. Patient independent at home. Transportation: self/ DME/HHC: Patient has cane at home. Patient denies HHC. Disposition Plan: Patient to discharge home with family support and follow-up plans in place. Monse AGRAWAL, RN, CM
[2019-07-15] MEDS: 0.9% Normal Saline 1,000 ML 100 ML IV (15:02)
--- NOTE | 2019-07-15 16:05 | PN_ITS ---
Patient Problems: Active and Suspected Problems (Last Reviewed 07/07/19 @ 12:47 by Teena Escalante) Small bowel obstruction (Acute) Reason for Visit: Follow-up on small bowel obstruction. Subjective: Patient was seen and examined. She has had multiple bowel movements. She is undergoing NG clamping. Denies abdominal pain, nausea or vomiting Objective: Physical exam: General: Alert, Oriented x3, Cooperative, No apparent distress, - - NG tube in situ, bilous fluid HEENT: Atraumatic, PERRLA, EOMI, Normocephalic Oral: Moist Mucosa Neck: Supple Lungs: Clear to auscultation, Normal air movement Cardiovascular: Regular rate, Regular Rhythm, Normal S1, Normal S2, No murmurs Abdomen: Bowel Sounds Present, Soft, Non Tender, Non-Distended, No Hepato- splenomegaly Extremities: No edema Skin: No rashes, No breakdown Musculoskeletal: No Tenderness to Palpation of Joints or Extremities Lymphatic: No Cervical, Supraclavicular, or Inguinal Adenopathy Neurological: Cranial nerves II-XII grossly intact, Neuro grossly intact Psych/Mental Status: Normal Affect, Appropriate Vitals/I&O's: Vital Signs Temp Pulse Resp BP Pulse Ox 97.9 F 71 18 146/81 H 94 07/15/19 15:06 07/15/19 15:06 07/15/19 15:06 07/15/19 15:06 07/15/19 15:06 Oxygen Delivery Method Room Air Weight: 84.4 kg Body Mass Index (BMI) 31.4 Intake and Output for Last 24 Hours 07/13/19 07/14/19 07/15/19 23:59 23:59 23:59 Intake Total 3716.67 / 3746.67 2029.59 / 2029.59 Output Total 875 / 1675 1000 / 1000 Balance 2841.67 / 2071.67 1029.59 / 1029.59 Microbiology Past 72 Hours 07/13/19 23:20 Urine, Catheterized Urine Culture - Preliminary Culture exhibits no growth. Laboratory Results 07/15/19 04:50: WBC 8.3, RBC 4.65, Hgb 12.4, Hct 40.8, MCV 87.7, MCH 26.7 L, MCHC 30.4 L, RDW Std Deviation 42.5, RDW Coeff of Burke 13.2, Plt Count 201, MPV 12.0, Immature Gran % (Auto) 0.200, Neut % (Auto) 66.2, Lymph % (Auto) 22.5, [place] % (Auto) 9.9, Eos % (Auto) 0.7, Baso % (Auto) 0.5, Absolute Neuts (auto) 5.5, Absolute Lymphs (auto) 1.87, Nucleated RBC % 0 07/15/19 04:50: Sodium 143, Potassium 3.5, Chloride 111 H, Carbon Dioxide 25.0, Anion Gap 7, BUN 17, Creatinine 0.78, Estim Creat Clear Calc 40.04, Est GFR (MDRD) Af Amer 92, Est GFR (MDRD) Non-Af 76, BUN/Creatinine Ratio 21.9 H, Glucose 79, Calcium 8.0 L, Total Bilirubin 0.60, AST 19, ALT 20, Alkaline Phosphatase 42 L, Total Protein 5.7 L, Albumin 2.8 L, Globulin 2.9, Albumin/Globulin Ratio 1.0 Current Medications Albuterol Sulfate (Ventolin Aerosols) 2.5 mg INHALATION Q2H PRN PRN PRN Reason: Shortness of Breath/Wheezing Enoxaparin Sodium (Lovenox) 90 mg SC Q12 [facility] Last Admin: 07/15/19 10:56 Dose: 90 mg Documented by: Glucagon () 1 mg IM .X1 PRN PRN Reason: Hypoglycemia Hydralazine HCl (Apresoline Iv) 10 mg IV Q4H PRN PRN PRN Reason: SBP > 160 Sodium Chloride () 1,000 mls @ 100 mls/hr IV .Q10H [facility] Last Admin: 07/15/19 15:02 Dose: 100 mls/hr Documented by: Famotidine 20 mg/ Sodium (Chloride) 10 mls @ 300 mls/hr IV Q12 [facility] Last Infusion: 07/15/19 11:02 Dose: Infused Documented by: Dextrose (Dextrose 10%-Water) 250 mls @ 999 mls/hr IV .Q16M PRN; Protocol PRN Reason: HYPOGLYCEMIA Ondansetron HCl (Zofran) 4 mg IV Q8H PRN PRN PRN Reason: NAUSEA/VOMITING Last Admin: 07/14/19 12:40 Dose: 4 mg Documented by: Prochlorperazine Edisylate (Compazine Iv) 5 mg IV Q4H PRN PRN PRN Reason: Breakthrough nausea/vomiting Last Admin: 07/14/19 19:49 Dose: 5 mg Documented by: STROKE Vital Signs/Narrative: Vital Signs Temp Pulse Resp BP Pulse Ox 07/15/19 15:06 97.9 F 71 18 146/81 H 94 Medical Necessity - Tobacco Use Smoking Status: Former smoker Tobacco Use: Non-smoker Assessment/Plan All Active Problems (Last Reviewed 07/07/19 @ 12:47 by Teena Escalante) Chest pain due to CAD (Acute) Chest pain (Acute) Small bowel obstruction (Acute) Left-sided pyelonephritis (Acute) Dyspnea on exertion (Resolved) Pulmonary emboli (Resolved) 78-year-old female with multiple comorbidities including hypertension, hypothyroidism, hyperlipidemia who comes in with complaints of abdominal pain has been managed as acute small bowel obstruction 1. Acute small bowel obstruction, being managed conservatively, NPO, NG tube insitu Status post gastrograffin small bowel follow-through, KUB this morning shows oral contrast in colon General surgery following, will obtain recommendations 2. Acute kidney injury, pre-renal secondary to dehydration, resolved, Admitted with creatinine of 1.21, creatinine 0.78, continue on decreased IV fluid 3. CAD status post CABG,) stents/hypertension/hyperlipidemia - home atenolol, hydrochlorothiazide, rosuvastatin on hold on account of NPO status 4. History of DVT/PE status post IVC, on Lovenox therapeutic dosing, Warfarin on hold Will restart Coumadin prior to discharge 5. Hypothyroidism, home levothyroxine on hold on account of NPO 6. Paroxysmal atrial fibrillation, in NSR, will continue to monitor 7. DVT PPX -on therapeutic Lovenox subcu Code Visit Inpatient E&M: 17930 Subs Hosp L2
[2019-07-16] MEDS: 0.9% Normal Saline 1,000 ML 100 ML IV (01:15)
[2019-07-16 02:20] VITALS: BP 150/71; PULSE 67; RESP 18; TEMP 36.9; O2SAT 94
[2019-07-16 09:29] VITALS: BP 143/83; PULSE 68; RESP 18; TEMP 36.9; O2SAT 95
[2019-07-16] MEDS: Enoxaparin 100 MG/ML Syringe 90 MG SC (09:35)
--- NOTE | 2019-07-16 09:39 | DCINST_ITS ---
- Discharge Diagnoses Current Active Problems: Current Active and Chronic Problems (Last Reviewed 07/07/19 @ 12:47 by Teena Escalante) Small bowel obstruction (Acute) Reason(s) for Visit for Discharge Instructions: Small bowel obstruction You will use the following diet at home:: Cardiac Your food should be the consistency of: Regular Your liquids should be the consistency of: Regular/Thin Discharge Activity: Return to Normal Activity Instructions: Small Bowel Obstruction, Enoxaparin Sodium (Porcine) Solution for injection Additional Instructions: You should be on coumadin and Lovenox together until your INR gets between 2-3. Repeat your INR in 3 days. Keep yourself hydrated. You need repeat blood work within 1 week to check on your kidneys. Allergies/Adverse Reactions: Allergies streptokinase [Streptokinase] Adverse Reaction (Severe, Verified 07/13/19 21:44) Hives Medications to take at Discharge Aspirin E.C. [Ecotrin] 81 mg PO DAILY@0800 04/03/13 Sucralfate [Carafate] 1 gm PO TID 01/28/14 Albuterol IH (ProAir) [Proair Hfa] 2 puff INHALATION Q6H PRN 11/09/15 warfarin 5 mg tablet 5 mg PO SUMOTUWEFRSA 02/11/18 cholecalciferol (vitamin D3) 1,250 mcg (50,000 unit) capsule 50,000 unit PO QWEEK 08/26/18 Calcium Carbonate [Calcium] 600 mg PO DAILY 01/02/19 nitroglycerin 0.4 mg sublingual tablet 0.4 mg SUBLINGUAL Q5M PRN #25 tab 03/31/19 Clobetasol Propionate/Emoll [Clobetasol Emollient 0.05% Crm] 30 gm TP DAILY PRN 07/07/19 Estradiol Cream 0.1 % TP PRN PRN 07/07/19 Levothyroxine Sodium [Levoxyl] 125 mcg PO DAILY 07/07/19 Ramipril 20 mg PO DAILY 07/07/19 Trospium Chloride [Sanctura Xr] 60 mg PO DAILY 07/07/19 Atenolol [Tenormin (beta chan)] 50 mg PO BID 07/14/19 Hydrochlorothiazide 12.5 mg PO DAILY 07/14/19 Niacin SA [Niaspan] 500 mg PO QHS 07/14/19 Rosuvastatin Calcium 40 mg PO QHS 07/14/19 Enoxaparin [Lovenox] 90 mg SUBCUT Q12 7 Days #14 syringe 07/16/19 The following prescriptions were given: Enoxaparin [Lovenox] 90 mg SUBCUT Q12 7 Days #14 syringe Transmission Status: Received by [facility]/pharmacy #[id number] Primary Care Physician: Rolf Reyes MD [Primary Care Provider] - Please follow up with your Primary Care Physician in: within 1-2 weeks Test Results: Test results from this visit will be discussed in further detail at your follow- up appointment, if applicable. Please Follow Up With: Nanette Clayton MD When: as scheduled Proposed Discharge Date: 07/16/19
--- NOTE | 2019-07-16 09:42 | PCM.DC.SUM ---
Discharge Date and Diagnosis Date of Admission: 07/13/19 Date of Discharge: 07/16/19 - Primary Discharge Diagnosis Active and Suspected Problems (Last Reviewed 07/07/19 @ 12:47 by Teena Escalante) Small bowel obstruction (Acute) Acute kidney injury, pre-renal - Secondary Discharge Diagnosis Chronic Problems (Last Reviewed 07/07/19 @ 12:47 by Teena Escalante) Ovarian cancer (Chronic) 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) History of pulmonary embolism (Chronic) History of DVT (deep vein thrombosis) (Chronic) Stented coronary artery (Chronic 10/18/07) PTCA LAD X w stents 03/06/06, 10/18/07 Paroxysmal atrial fibrillation (Chronic) Atherosclerotic heart disease of [place] coronary artery without angina pectoris (Chronic) S/P bypass surgery in 1999 with PATINO to LAD and SVG to diagonal; stenting x2 to LAD in February 2006 and September 2007; H/O coronary artery bypass surgery (Chronic) CABG PATINO graft LAD, pericardial drainage/window for pericardial effusion March 2000, saphenous vein graft to Diag 26 February 2000 Wide-complex tachycardia (Chronic) Hypertension (Chronic) GERD (gastroesophageal reflux disease) (Chronic) Hypothyroid (Chronic) Hyperlipidemia (Chronic) Hospital Course and Treatment Imaging Results: Clinical Impression(s) from Imaging Studies Abdomen/Pelvis CT 07/13/19 22:09 IMPRESSION: Probable small bowel obstruction. Surgical consultation recommended. Electronically Signed: Derick Bee MD at 23:33 EST , Service support , KUB X-Ray 07/14/19 01:25 IMPRESSION: Nasogastric tube tip in its expected location. Known small bowel obstruction. Electronically Signed: Frandy Anne MD at 2:23 EST , Service support , Abdomen X-Ray 07/14/19 06:15 IMPRESSION: Gas and fecal material is seen throughout the colon. Less small bowel dilatation at this time. Electronically Signed: Mariano Blackmon at 10:29 EST , Service support , Small Bowel X-Ray 07/14/19 08:17 IMPRESSION: Findings suggestive of partial small bowel obstruction. Electronically Signed: Mariano Blackmon, at 15:41 EST , Service support , KUB X-Ray 07/15/19 05:55 IMPRESSION: Oral contrast is seen within the colon. Electronically Signed: Mariano Blackmon, at 9:53 EST , Service support , General surgery Operations: None Procedures: None Summary of Care Provided: 78-year-old female with multiple comorbidities including hypertension, hypothyroidism, hyperlipidemia who comes in with complaints of abdominal pain has been managed as acute small bowel obstruction. Her management was as follows: 1. Acute small bowel obstruction, managed conservatively, kept NPO, NG tube inserted. Kept on IVF. General surgery was consulted. She improved with gastro-graffin small bowel follow-through with bowel movements. She tolerated an advancement in her diet 2. Acute kidney injury, pre-renal secondary to dehydration, resolved with IVF. Admitted with creatinine of 1.21, Cr was back to normal at discharge. 3. CAD status post CABG,) stents/hypertension/hyperlipidemia, continued on atenolol, hydrochlorothiazide, rosuvastatin 4. History of DVT/PE status post IVC, on Lovenox therapeutic dosing. Warfarin was on hold during the hospital stay. She was discharged on Lovenox and coumadin overlap. She will follow-up closely with her PCP for close INR monitoring. 5. Hypothyroidism, continue on home levothyroxine 6. Paroxysmal atrial fibrillation, in NSR Subjective: On the day of discharge, patient was seen and examined. She tolerated her diet of eggs and muffin. Denied any abdominal pain. Objective: Physical exam: General: Alert, Oriented x3, Cooperative, No apparent distress HEENT: Atraumatic, PERRLA, EOMI, Normocephalic Oral: Moist Mucosa Neck: Supple Lungs: Clear to auscultation, Normal air movement Cardiovascular: Regular rate, Regular Rhythm, Normal S1, Normal S2, No murmurs Abdomen: Bowel Sounds Present, Soft, Non Tender, Non-Distended, No Hepato-splenomegaly Extremities: No edema Skin: No rashes, No breakdown Musculoskeletal: No Tenderness to Palpation of Joints or Extremities Lymphatic: No Cervical, Supraclavicular, or Inguinal Adenopathy Neurological: Cranial nerves II-XII grossly intact, Neuro grossly intact Psych/Mental Status: Normal Affect, Appropriate - Physical Exam Vitals/I&O's: Vital Signs Temp Pulse Resp BP Pulse Ox 98.5 F 68 18 143/83 H 95 07/16/19 09:29 07/16/19 09:29 07/16/19 09:29 07/16/19 09:29 07/16/19 09:29 Oxygen Delivery Method Room Air Weight: 84.4 kg Body Mass Index (BMI) 31.4 Intake and Output for Last 24 Hours 07/14/19 07/15/19 07/16/19 23:59 23:59 23:59 Intake Total 3716.67 / 3746.67 2039.59 / 2039.59 1805 / 1805 Output Total 875 / 1675 1000 / 1000 Balance 2841.67 / 2071.67 1039.59 / 1039.59 1805 / 1805 Microbiology Past 72 Hours 07/13/19 23:20 Urine, Catheterized Urine Culture - Final Culture exhibits no growth. Current Medications Albuterol Sulfate (Ventolin Aerosols) 2.5 mg INHALATION Q2H PRN PRN PRN Reason: Shortness of Breath/Wheezing Enoxaparin Sodium (Lovenox) 90 mg SC Q12 [facility] Last Admin: 07/16/19 09:35 Dose: 90 mg Documented by: Glucagon () 1 mg IM .X1 PRN PRN Reason: Hypoglycemia Hydralazine HCl (Apresoline Iv) 10 mg IV Q4H PRN PRN PRN Reason: SBP > 160 Dextrose (Dextrose 10%-Water) 250 mls @ 999 mls/hr IV .Q16M PRN; Protocol PRN Reason: HYPOGLYCEMIA Ondansetron HCl (Zofran) 4 mg IV Q8H PRN PRN PRN Reason: NAUSEA/VOMITING Last Admin: 07/14/19 12:40 Dose: 4 mg Documented by: Prochlorperazine Edisylate (Compazine Iv) 5 mg IV Q4H PRN PRN PRN Reason: Breakthrough nausea/vomiting Last Admin: 07/14/19 19:49 Dose: 5 mg Documented by: Warfarin Sodium (Coumadin (Pbkc)) 5 mg PO X1 ONE Stop: 07/16/19 09:40 Discharge Diet: Low fat/ Low Cholesterol, 2000 mg Sodium Diet Discharge Activity: Return to Normal Activity Home Medications: Medications to take at Discharge Aspirin E.C. [Ecotrin] 81 mg PO DAILY@0800 04/03/13 Sucralfate [Carafate] 1 gm PO TID 01/28/14 Albuterol IH (ProAir) [Proair Hfa] 2 puff INHALATION Q6H PRN 11/09/15 warfarin 5 mg tablet 5 mg PO SUMOTUWEFRSA 02/11/18 cholecalciferol (vitamin D3) 1,250 mcg (50,000 unit) capsule 50,000 unit PO QWEEK 08/26/18 Calcium Carbonate [Calcium] 600 mg PO DAILY 01/02/19 nitroglycerin 0.4 mg sublingual tablet 0.4 mg SUBLINGUAL Q5M PRN #25 tab 03/31/19 Clobetasol Propionate/Emoll [Clobetasol Emollient 0.05% Crm] 30 gm TP DAILY PRN 07/07/19 Estradiol Cream 0.1 % TP PRN PRN 07/07/19 Levothyroxine Sodium [Levoxyl] 125 mcg PO DAILY 07/07/19 Ramipril 20 mg PO DAILY 07/07/19 Trospium Chloride [Sanctura Xr] 60 mg PO DAILY 07/07/19 Atenolol [Tenormin (beta chan)] 50 mg PO BID 07/14/19 Hydrochlorothiazide 12.5 mg PO DAILY 07/14/19 Niacin SA [Niaspan] 500 mg PO QHS 07/14/19 Rosuvastatin Calcium 40 mg PO QHS 07/14/19 Enoxaparin [Lovenox] 90 mg SUBCUT Q12 7 Days #14 syringe 07/16/19 Following Prescrptions Were Given to Patient: Enoxaparin [Lovenox] 90 mg SUBCUT Q12 7 Days #14 syringe Transmission Status: Received by [facility]pharmacy #[id number] Primary Care Physician: Rolf Reyes MD [Primary Care Provider] - Please follow up with your Primary Care Physician in: within 1-2 weeks Please Follow Up With: Nanette Clayton MD When: as scheduled Patient Instructions: Enoxaparin Sodium (Porcine) Solution for injection, Small Bowel Obstruction Disposition: Home Minutes spent on discharge:: 40 Patient Condition:: Stable Medical Necessity - Tobacco Use Smoking Status: Former smoker Tobacco Use: Non-smoker Meaningful Use Info Meaningful Use Diagnoses (Choose all that apply): None applicable Code Visit Inpatient E&M: 57741 Disch Hosp
--- NOTE | 2019-07-16 10:22 | PN.SURG_ITS ---
Patient Problems: Active and Suspected Problems (Last Reviewed 07/07/19 @ 12:47 by Teena Escalante) Small bowel obstruction (Acute) Subjective: Patient tolerating low residual diet, having bowel function denies any abdominal pain - Physical Exam Vitals/I&O's: Vital Signs Temp Pulse Resp BP Pulse Ox 98.5 F 68 18 143/83 H 95 07/16/19 09:29 07/16/19 09:29 07/16/19 09:29 07/16/19 09:29 07/16/19 09:29 Oxygen Delivery Method Room Air Weight: 186 lb 1.122 oz Body Mass Index (BMI) 31.4 Intake and Output for Last 24 Hours 07/14/19 07/15/19 07/16/19 23:59 23:59 23:59 Intake Total 3716.67 / 3746.67 2039.59 / 2039.59 1805 / 1805 Output Total 875 / 1675 1000 / 1000 Balance 2841.67 / 2071.67 1039.59 / 1039.59 1805 / 1805 General: Alert, Oriented x3, Cooperative, No apparent distress HEENT: Atraumatic Lungs: Normal air movement Cardiovascular: Regular rate Abdomen: Soft, Non Tender, Non-Distended Microbiology Past 72 Hours 07/13/19 23:20 Urine, Catheterized Urine Culture - Final Culture exhibits no growth. Laboratory Results 07/16/19 09:50: PT Pending, INR Pending Current Medications Albuterol Sulfate (Ventolin Aerosols) 2.5 mg INHALATION Q2H PRN PRN PRN Reason: Shortness of Breath/Wheezing Enoxaparin Sodium (Lovenox) 90 mg SC Q12 [facility] Last Admin: 07/16/19 09:35 Dose: 90 mg Documented by: Glucagon () 1 mg IM .X1 PRN PRN Reason: Hypoglycemia Hydralazine HCl (Apresoline Iv) 10 mg IV Q4H PRN PRN PRN Reason: SBP > 160 Dextrose (Dextrose 10%-Water) 250 mls @ 999 mls/hr IV .Q16M PRN; Protocol PRN Reason: HYPOGLYCEMIA Ondansetron HCl (Zofran) 4 mg IV Q8H PRN PRN PRN Reason: NAUSEA/VOMITING Last Admin: 07/14/19 12:40 Dose: 4 mg Documented by: Prochlorperazine Edisylate (Compazine Iv) 5 mg IV Q4H PRN PRN PRN Reason: Breakthrough nausea/vomiting Last Admin: 07/14/19 19:49 Dose: 5 mg Documented by: Medical Necessity - Tobacco Use Smoking Status: Former smoker Tobacco Use: Non-smoker Assessment/Plan All Active Problems (Last Reviewed 07/07/19 @ 12:47 by Teena Escalante) Chest pain due to CAD (Acute) Chest pain (Acute) Small bowel obstruction (Acute) Left-sided pyelonephritis (Acute) Dyspnea on exertion (Resolved) Pulmonary emboli (Resolved) 78-year-old female with partial small bowel obstruction?resolved 1. Tolerating low residual diet will keep on for a couple days and okay to go back to regular diet follow-up in 2 weeks. 2. Bridge Coumadin with Lovenox per primary Nanette Clayton M.D. Pager: [phone] [facility] [address] [place] [address], [facility], [address] [place] [address] Office: [phone] Code Visit Inpatient E&M: 11187 Subs Hosp L1
[2019-07-16 11:06] LABS: International Normalized Ratio 1.6; Prothrombin Time (Protime)PT. 18.7 SECONDS (11.7-14.9)
--- NOTE | 2019-07-17 13:18 | CASEMGMT ---
[place] Discharge Follow-Up Phone Call. Lacpam: Carlie Strata: 3 Discharge Date: 07/16/19 Adm Dx: SBO Call to pt to inquire about how she has been doing since being discharged from the hospital. Pt stated, Not too bad at all. Pt stated she is still on a softer diet and is trying to advance slowly. She denies having any abdominal pain or nausea. She states she was able to cloth picker the Lovenox injections from the pharmacy and denies having any questions about them or the other medications. She states Everything was explained very well. She denies having any questions about the d/c instructions and is aware of the follow-up appts. [place] [facility] thanked pt for choosing [facility]. Chris AGRAWAL RN, CM
== END 2019-07-16 10:57 | disposition home or self-care (01) | DRG 389 ==
LOC: ED 22:19 → MS3 07-14 00:11
PROVIDERS: Admitting Provider Family Medicine; Emergency Provider Emergency Medicine; PCP Family Medicine; Visit Provider Internal Medicine
DX: K56.600 Partial intestinal obstruction, unspecified as to cause (principal); N17.9 Acute kidney failure, unspecified; K21.9 Gastro-esophageal reflux disease without esophagitis; I25.10 Atherosclerotic heart disease of native coronary artery without angina pectoris; I10 Essential (primary) hypertension; E78.5 Hyperlipidemia, unspecified; I48.0 Paroxysmal atrial fibrillation; E89.0 Postprocedural hypothyroidism; E86.0 Dehydration; Z86.711 Personal history of pulmonary embolism; Z79.01 Long term (current) use of anticoagulants; Z90.710 Acquired absence of both cervix and uterus; Z90.722 Acquired absence of ovaries, bilateral; Z95.828 Presence of other vascular implants and grafts; Z85.43 Personal history of malignant neoplasm of ovary; Z95.1 Presence of aortocoronary bypass graft; Z90.79 Acquired absence of other genital organ(s); Z95.5 Presence of coronary angioplasty implant and graft; Z86.718 Personal history of other venous thrombosis and embolism; Z79.82 Long term (current) use of aspirin; Z87.891 Personal history of nicotine dependence
CPT/HCPCS: 36415; 74018; 74019; 74176; 74250; 80048; 80053; 80076; 81001; 83036; 83690; 84484; 85025; 85610; 87086; 93005; 99251; 99285; J7030; A4216; G0463; J2405; J3490

== ENCOUNTER → 2019-07-18 | Outpatient (CLI) | payer MEDICARE, OTHER, SELFPAY ==
[2019-07-14 01:44] VITALS: BMI 31.4
[2019-07-18 13:29] LABS: International Normalized Ratio 1.6
== END | disposition home or self-care (01) ==
LOC: LABSPEC 12:38
PROVIDERS: PCP Family Medicine; Referring Provider Nurse Practitioner Family; Visit Provider Nurse Practitioner Family
DX: Z86.718 Personal history of other venous thrombosis and embolism (principal)
CPT/HCPCS: 85610

== ENCOUNTER → 2019-10-16 09:44 | Outpatient (CLI) | payer MEDICARE, OTHER, SELFPAY ==
[2019-07-30 08:51] VITALS: BMI 31.4
[2019-10-16 12:02] LABS: AST(SGOT) 24 U/L (15-37); Alanine Aminotransfer ALT/SGPT 33 U/L (13-56); Albumin, Serum 3.5 g/dL (3.2-5.0); Alkaline Phosphatase 57 U/L (45-117); Bilirubin, Direct 0.12 mg/dL (0.00-0.30); Cholesterol 144 mg/dL (200); Globulin 3.5 g/dL (2.2-4.2); High Density Lipoprotein 56 mg/dL; Triglycerides 191 mg/dL; Very Low Density Lipoprotein 38 mg/dL (5-40)
== END ==
PROVIDERS: PCP Family Medicine; Referring Provider Internal Medicine Cardiovascular Disease; Visit Provider Internal Medicine Cardiovascular Disease
DX: E78.5 Hyperlipidemia, unspecified (principal); I48.0 Paroxysmal atrial fibrillation; I10 Essential (primary) hypertension; E78.00 Pure hypercholesterolemia, unspecified; I25.10 Atherosclerotic heart disease of native coronary artery without angina pectoris
CPT/HCPCS: 36415; 80061; 80076

== ENCOUNTER → 2020-06-01 | Outpatient (CLI) | payer MEDICARE, OTHER, SELFPAY ==
[2020-05-06 13:45] VITALS: BMI 39.3
[2020-06-01 09:22] LABS: International Normalized Ratio 1.9; Prothrombin Time (Protime)PT. 20.9 SECONDS (11.7-14.9)
== END | disposition home or self-care (01) ==
LOC: LABSPEC 09:00
PROVIDERS: PCP Family Medicine; Referring Provider Family Medicine; Visit Provider Family Medicine
DX: Z86.718 Personal history of other venous thrombosis and embolism (principal)
CPT/HCPCS: 85610

== ENCOUNTER → 2020-08-30 14:12 | Outpatient (CLI) | payer MEDICARE, OTHER, SELFPAY ==
[2020-05-06 13:45] VITALS: BMI 39.3
--- NOTE | 2020-08-30 14:15 | BI_ITS ---
MAMMOGRAPHY - BILATERAL SCREENING 3-D TOMOSYNTHESIS REASON FOR EXAM: Female, 80 years old. ANNUAL SCREENING PERTINENT HISTORY: No significant family history. TECHNIQUE: 2-D mammograms and 3-D Tomosynthesis of the breast (s) were performed. CAD was performed. COMPARISON: None. FINDINGS: The breast composition is almost entirely fatty. There are radiopaque discs marking the location of moles on both breasts. Scattered benign calcifications are seen. No dense spiculated masses or suspicious microcalcifications are identified. No architectural distortion is identified. There is no skin thickening or retraction. There has been no significant change since the prior study. BI/SCRN MAMM (CAD)W/GLENDY BILAT IMPRESSION: No mammographic signs of malignancy. Routine yearly mammograms recommended. ASSESSMENT CATEGORY: BIRADS Category 2: Benign. A letter regarding these results will be sent to the patient by the facility within 30 days. FOLLOW UP RECOMMENDATION: Yearly follow up mammogram recommended. (A) Approximately 10% of breast cancers are not detected by mammography. A normal mammogram should not delay biopsy of a clinically suspicious abnormality. Electronically Signed: Yohan Liao MD at 15:36 EDT Tel , Service support ,
== END ==
PROVIDERS: PCP Family Medicine; Referring Provider Internal Medicine Hematology & Oncology; Visit Provider Internal Medicine Hematology & Oncology
DX: Z12.31 Encounter for screening mammogram for malignant neoplasm of breast (principal)
CPT/HCPCS: 77063; 77067

== ENCOUNTER 2021-08-31 09:06 | Outpatient (CLI) | payer MEDICARE, OTHER, SELFPAY ==
--- NOTE | 2021-08-31 09:08 | BI_ITS ---
MAMMOGRAPHY - BILATERAL SCREENING REASON FOR EXAM: Female, 81 years old. Routine annual screening examination. PERTINENT HISTORY: Non-contributory. TECHNIQUE: Digital bilateral breast glendy (3D mammographic acquisition) in the CC and MLO projections. 2-D mediolateral oblique (MLO) and craniocaudad (CC) views of both breasts were obtained. CAD: Full Field Digital Mammography with Computer Added Detection was performed. COMPARISON: Comparison is made with prior study dated 08/30/2020 and 04/02/2019. FINDINGS: Breast Composition: The breasts are almost entirely fatty. There are no dominant masses or suspicious calcifications. No other significant abnormalities are identified. There has been no significant change since the prior study. BI/SCRN MAMM (CAD)W/GLENDY BILAT IMPRESSION: Stable bilateral screening mammogram. Yearly follow-up mammogram recommended. (A) ASSESSMENT CATEGORY: BIRADS Category 1: Negative. A letter regarding these results will be sent to the patient by the facility within 30 days. Approximately 10% of breast cancers are not detected by mammography. A normal mammogram should not delay biopsy of a clinically suspicious abnormality. [id number] Electronically Signed: Mariano Blackmon MD at 10:10 EDT ,
== END 2021-08-31 23:59 | disposition home or self-care (01) ==
LOC: OPBI 09:07
PROVIDERS: PCP Family Medicine; Visit Provider Internal Medicine Hematology & Oncology
DX: Z12.31 Encounter for screening mammogram for malignant neoplasm of breast (principal)
CPT/HCPCS: 77063; 77067

== ENCOUNTER 2021-09-09 10:38 | Outpatient (CLI) | payer MEDICARE, OTHER, SELFPAY ==
[2021-09-09 11:02] LABS: International Normalized Ratio 1.4; Prothrombin Time (Protime)PT. 17.2 SECONDS (11.7-14.9)
== END 2021-09-09 23:59 | disposition home or self-care (01) ==
LOC: LABSPEC 10:40
PROVIDERS: PCP Family Medicine; Visit Provider Family Medicine
DX: Z86.718 Personal history of other venous thrombosis and embolism (principal)
CPT/HCPCS: 85610

== ENCOUNTER → 2021-10-04 | Outpatient (CLI) | payer MEDICARE, OTHER, SELFPAY ==
[2021-10-04 12:03] LABS: Absolute Lymphocyte Count 2.28 X10^3/uL (0.83-4.51); Absolute Neutrophil Count 5.9 X10^3/uL (2.0-7.7); Basophil# 0.05 X10^3/uL; Basophil% 0.5 % (0-1); Eosinophil# 0.08 X10^3/uL; Eosinophils% 0.9 % (0-5); Hematocrit 43.7 % (37-47); Hemoglobin 13.6 g/dL (12.0-15.0); Lymphocyte # 2.28 X10^3/ul (0.83-4.51); Mean Corp Hgb Conc 31.1 g/dL (32-36); Mean Corpuscular Hgb 28.3 pg (27.0-32.0); Mean Corpuscular Volume 90.9 fL (81-99); Mean Platelet Vol. 11.1 fl (6.2-12.0); Monocyte# 0.82 X10^3/uL; NRBC Flagged by Analyzer 0 % (0-5); Neutrophil # 5.85 X10^3/uL (2.7-7.7); Neutrophil % 64.1 % (47-70); Platelet Count 292 K/mm3 (150-450); RBC Distribution Width CV 12.7 % (11.6-14.6); RBC Distribution Width SD 42.6 fl (35.1-43.9); Red Blood Count 4.81 M/mm3 (4.2-5.4); White Blood Count 9.1 K/mm3 (4.4-11.0)
[2021-10-04 12:39] LABS: BNP,B-Type NATRIURETIC PEPTIDE 336.3 pg/mL (0-100)
[2021-10-04 12:41] LABS: Anion Gap 6 (5-15); BUN 20 mg/dL (7-18); BUN/Creat Ratio 20.2 RATIO (10-20); Calcium,Total 9.6 mg/dL (8.5-10.1); Chloride 105 mmol/L (98-107); Creatinine, Serum 0.99 mg/dL (0.55-1.02); EST Glomerular Filtration Rate 57 mL/min (>60); Est Glom Filt Rate - Afr Amer 69 mL/min (>60); Glucose 100 mg/dL (74-106); Potassium 4.1 mmol/L (3.5-5.1); Sodium Level 141 mmol/L (136-145); Thyroid Stim Hormone (TSH) 0.73 uIU/mL (0.358-3.74)
== END | disposition home or self-care (01) ==
LOC: LAB 11:35
PROVIDERS: PCP Family Medicine; Referring Provider Nurse Practitioner Gerontology; Visit Provider Nurse Practitioner Gerontology
DX: R06.00 Dyspnea, unspecified (principal); R53.83 Other fatigue
CPT/HCPCS: 36415; 80048; 83880; 84443; 85025

== ENCOUNTER → 2021-10-11 | Outpatient (CLI) | payer MEDICARE, OTHER, SELFPAY ==
--- NOTE | 2021-10-11 10:01 | RAD_ITS ---
STUDY: X-RAY CHEST REASON FOR EXAM: Female, 81 years old. Dyspnea TECHNIQUE: PA and lateral views of the chest. COMPARISON: 01/02/2019 FINDINGS: Status post median sternotomy. There is hyperinflation of the lungs consistent with chronic obstructive lung disease (COPD). There is no demonstrated pleural abnormality. Normal size heart. Normal mediastinum and bertha. Normal visualized pulmonary arteries. Normal visualized aortic arch and descending thoracic aorta. Normal visualized thoracic spine. Normal visualized ribs, clavicles, and shoulders. There is no demonstrated abnormality of the visualized soft tissue structures of the upper abdomen. RAD/Chest PA and Lateral IMPRESSION: Emphysema without pneumonia or atelectasis. Electronically Signed: Glenroy Saucedo MD at 16:53 EDT ,
[2021-10-11 10:33] LABS: Anion Gap 5 (5-15); BUN 23 mg/dL (7-18); BUN/Creat Ratio 22.3 RATIO (10-20); Calcium,Total 9.2 mg/dL (8.5-10.1); Chloride 105 mmol/L (98-107); Creatinine, Serum 1.03 mg/dL (0.55-1.02); EST Glomerular Filtration Rate 55 mL/min (>60); Est Glom Filt Rate - Afr Amer 66 mL/min (>60); Glucose 102 mg/dL (74-106); Potassium 3.2 mmol/L (3.5-5.1); Sodium Level 142 mmol/L (136-145)
[2021-10-11 10:34] LABS: BNP,B-Type NATRIURETIC PEPTIDE 272.9 pg/mL (0-100)
== END | disposition home or self-care (01) ==
LOC: LAB 09:39
PROVIDERS: PCP Family Medicine; Referring Provider Nurse Practitioner Gerontology; Visit Provider Nurse Practitioner Gerontology
DX: R06.00 Dyspnea, unspecified (principal)
CPT/HCPCS: 36415; 71046; 80048; 83880

== ENCOUNTER → 2021-11-02 | Outpatient (CLI) | payer MEDICARE, OTHER, SELFPAY ==
--- NOTE | 2021-11-02 06:27 | ECHOCS_ITS ---
Reason For Study: Dyspnea/SOB Procedure This was a 2D Doppler, Color Flow transthoracic echocardiogram. The study was technically difficult. Contrast injection was performed. Exam performed in department. Left Ventricle Mild concentric left ventricular hypertrophy. Based upon the 2D echocardiographic and contrast enhanced images obtained there appears to be grossly normal left ventricular size, wall motion, and systolic function. The estimated ejection fraction is 55 %. Unable to assess diastolic dysfunction. Right Ventricle Normal RV size. Normal systolic function. Atria The left atrium is moderately enlarged. The right atrium is mildly enlarged. No doppler evidence for ASD. Mitral Valve There is mild to moderate mitral annular calcification. Extension of the mitral annular calcification onto the base of the posterior mitral valve leaflet. Mild (1+) mitral valve insufficiency. Tricuspid Valve Normal tricuspid valve. Mild tricuspid valve insufficiency. Right ventricular systolic pressure estimated to be 27 mmHg. Aortic Valve Trisinus/trileaflet aortic valve. Mild diffuse aortic valve thickening. Mild focal aortic valve calcification. Trivial aortic valve insufficiency. Pulmonic Valve The pulmonic valve is not well visualized. Great Vessels Normal sized aortic root. Calcified aortic root. Pericardium/Pleural No pericardial effusion. Medication 22 gauge I.V. with prn adaptor inserted into right arm. Diluted definity 2ml given slow IV push to enhance endocardial definition. MMode/2D Measurements & Calculations LVIDd: 5.1 cm IVSd: 1.3 cm Ao root diam: 3.2 cm LVIDs: 3.4 cm LVPWd: 1.3 cm LA dimension: 4.7 cm FS: 33.8 % LAV(MOD-bp): 84.5 ml LA A4 area: 25.8 cm2 RA A4 area: 23.0 cm2 LAV(MOD-bp) Indexed: 41.9 ml/m2 LAV(MOD-sp2): 71.9 ml LAV(MOD-sp4): 88.9 ml Doppler Measurements & Calculations MV E max liang: 115.8 cm/sec Ao V2 max: 106.2 cm/sec LV V1 max: 73.9 cm/sec Ao max P.5 mmHg LV V1 max P.2 mmHg MR max liang: 424.3 cm/sec PA V2 max: 62.3 cm/sec TR max liang: 244.1 cm/sec MR max P.0 mmHg TR max P.8 mmHg ECHO/Echo Complete W/ Contrast Interpretation Summary The study was technically difficult. Contrast injection was performed. Based upon the 2D echocardiographic and contrast enhanced images obtained there appears to be grossly normal left ventricular size, wall motion, and systolic function. The estimated ejection fraction is 55 %. Mild concentric left ventricular hypertrophy. The left atrium is moderately enlarged. The right atrium is mildly enlarged. There is mild to moderate mitral annular calcification. Extension of the mitral annular calcification onto the base of the posterior mi tral valve leaflet. Mild (1+) mitral valve insufficiency. Mild tricuspid valve insufficiency. Mild diffuse aortic valve thickening. Mild focal aortic valve calcification. Trivial aortic valve insufficiency. Calcified aortic root. Right ventricular systolic pressure estimated to be 27 mmHg. Unable to assess diastolic dysfunction. Ordering Physician: Shirin Hurtado Referring Physician: MD Rolf Reyes Performed By: Estevan Worley RCS
--- NOTE | 2021-11-02 08:42 | STRESSREP ---
Stress Test Report Date: 11-02-2021 Procedure: Pharmacologic stress nuclear imaging study Indications: Chest pain; shortness of breath/dyspnea; CAD; PCI; CABG; PAF; hyperlipidemia; hypertension Consent: Per the patient Procedure: The patient underwent pharmacologic (Regadenoson 0.4mg ) evaluation with a peak heart rate of 93 beats per minute (66%predicted maximal heart rate) and a peak blood pressure of 130/72 mmHg. The baseline ECG demonstrated atrial fibrillation with nonspecific ST/T wave abnormality. The peak pharmacologic ECG demonstrated continued atrial fibrillation with nonspecific ST/T wave abnormality. There were no cardiac dysrhythmias pretest, during pharmacologic infusion, or recovery. There was no complaint of chest discomfort during pharmacologic infusion or recovery. The examination was discontinued secondary to completion of protocol. Impression: 1. Pharmacologic (Regadenoson) evaluation 2. Peak pharmacologic ECG with continued atrial fibrillation with nonspecific ST/T wave abnormality. 3. There were no cardiac dysrhythmias pretest, during pharmacologic infusion, or recovery. 4. Nuclear images pending Myocardial perfusion imaging study: Technique: The patient was injected with 13.9 millicuries of technetium 99m Cardiolite and subsequently rest SPECT Cardiolite nuclear imaging was obtained in the horizontal long, vertical long, and short axis views. The patient underwent pharmacologic (Regadenoson) evaluation with a peak heart rate of 93 beats per minute (66% percent predicted maximal heart rate) and a peak blood pressure of 130/72 mmHg. The patient was injected with 44.1 millicuries of technetium 99m Cardiolite and subsequently stress SPECT Cardiolite nuclear imaging was obtained in the horizontal long, vertical long, and short axis views. A gated Cardiolite study at peak stress was obtained. Interpretation: Rest and stress SPECT Cardiolite nuclear imaging status post realignment, normalization, and attenuation correction demonstrate the appearance of body motion during image acquisition and otherwise the appearance of relative uniform tracer uptake and myocardial perfusion appearing within normal limits. There is end systolic thickening and brightening. The gated Cardiolite study demonstrates myocardial thickening and inward wall motion. The reported LVEF is 63%. Impression: 1. Rest and stress SPECT Cardiolite nuclear imaging demonstrate relative uniform tracer uptake and myocardial perfusion appearing within normal limits. 2. The gated Cardiolite study reports an LVEF of 63%. This note was generated with [employer] software. It may contain incorrect words, spelling, and punctuation that were not noted in checking the note before signing.
== END | disposition home or self-care (01) ==
LOC: CVS 06:25
PROVIDERS: PCP Family Medicine; Referring Provider Nurse Practitioner Gerontology; Visit Provider Nurse Practitioner Gerontology
DX: R07.89 Other chest pain (principal); R06.00 Dyspnea, unspecified; I25.10 Atherosclerotic heart disease of native coronary artery without angina pectoris
CPT/HCPCS: 78452; 93017; 93306; A9500; Q9957; A4216; C8929; J2785

== ENCOUNTER 2021-11-10 22:53 | Emergency (ER) | payer MEDICARE, OTHER, SELFPAY ==
[2021-11-10 22:54] VITALS: TEMP 36.9; BMI 37.5
[2021-11-10 23:00] VITALS: BP 114/73; PULSE 81; RESP 20; O2SAT 93
--- NOTE | 2021-11-10 23:20 | EDS_ITS ---
HPI History of Present Illness Chief Complaint: Chest Pain Onset/Context/Timing Onset: Hours (1) Activity at onset: sudden, onset and activity on onset (Lying down see below) Current Severity: Gone Maximum Severity: Moderate Worsened By: Nothing; Not Worsened By Movement of Arm, Movement of Torso or Breathing Relieved By: NTG Associated Symptoms: Positive for Dyspnea and Lightheadedness; Negative for Nausea, Vomiting or Palpitations Narrative Narrative: Patient laid down to bed tonight, she was feeling well before that and then she started having chest pressure that developed into svitlana substernal pain without radiation. 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 This was within the past month. She denies any recent leg swelling, coughing, fevers, or other illness/symptoms. [facility] Medical History Abnormal dobutamine stress echocardiogram Atherosclerotic heart disease of [place] coronary artery without angina pectoris Chest pain Chest pain due to CAD DVT (deep venous thrombosis) Dyspnea on exertion Essential hypertension GERD (gastroesophageal reflux disease) History of acute myocardial infarction of anterolateral wall (02/2000) History of DVT (deep vein thrombosis) History of pulmonary embolism Hypothyroid ivc filter retreval Left-sided pyelonephritis Other shelter (current) drug therapy Ovarian cancer Ovarian cancer Overactive bladder Paroxysmal atrial fibrillation Pericardial effusion Pulmonary emboli Pure hypercholesterolemia Small bowel obstruction Stress incontinence UTI (urinary tract infection) Wide-complex tachycardia Home Medications aspirin 81 mg tablet,delayed release 81 mg PO DAILY@0800 Heart Health 04/03/13 [History Last Taken 07/13/19 08:00 81 mg] sucralfate 1 gram tablet 1 g PO TID gerd 01/28/14 [History Last Taken 07/13/19 22:00 1 gerd] albuterol sulfate 90 mcg/actuation aerosol inhaler 2 puff inhalation Q6H PRN Wheezing 11/09/15 [History Last Taken Unknown] cholecalciferol (vitamin D3) 1,250 mcg (50,000 unit) capsule 50,000 unit PO QWEEK supplement 08/26/18 [History Last Taken 07/09/19 17:00 50,000 unit] nitroglycerin 0.4 mg sublingual tablet 0.4 mg sublingual Q5M PRN Chest Pain #25 tabs 03/31/19 [Rx Last Taken Unknown] levothyroxine 50 mcg tablet 125 mcg PO DAILY Thyroid 07/07/19 [History Last Taken 07/13/19 06:00 125 mcg] trospium 60 mg capsule,extended release 24 hr 60 mg PO DAILY overactive bladder 07/07/19 [History Last Taken 07/13/19 08:00 60 mg] niacin 500 mg tablet,extended release 500 mg PO QHS supplement 07/14/19 [History Last Taken 07/13/19 22:00 500 mg] rosuvastatin 40 mg tablet 40 mg PO QHS cholesterol 07/14/19 [History Last Taken 07/13/19 22:00 40 mg] ramipril 10 mg capsule 20 mg PO DAILY Check with primary doctor #180 caps 11/27/19 [Rx Last Taken Unknown] hydrochlorothiazide 12.5 mg capsule 12.5 mg PO DAILY bp #30 caps 03/19/20 [Rx Last Taken Unknown] calcium carbonate 500 mg calcium (1,250 mg) tablet 500 mg PO DAILY 10/06/20 [History Last Taken Unknown] atenolol 50 mg tablet 50 mg PO BID Heart/BP #180 tabs 03/18/21 [Rx Last Taken Unknown] warfarin 5 mg tablet 5 mg PO SUMOTUWEFRSA blood thinner 07/07/21 [History Last Taken Unknown] mirabegron 50 mg tablet,extended release 24 hr 50 mg PO DAILY 10/04/21 [History Last Taken Unknown] furosemide 40 mg tablet (Lasix) 40 mg PO DAILY #30 tabs 10/11/21 [Rx Last Taken Unknown] potassium chloride 20 mEq tablet,extended release 20 meq PO DAILY #30 tabs 10/11/21 [Rx Last Taken Unknown] Allergy/AdvReac Type Severity Reaction Status Date / Time streptokinase [Streptokinase] AdvReac Severe Hives Verified 11/10/21 22:58 Family History Brother Hypertension Cancer Mother CVA (cerebral vascular accident) Hypertension Surgical History H/O coronary artery bypass surgery (~02/2000) History of back surgery History of hysterectomy History of thyroidectomy Hx of appendectomy Stented coronary artery (10/18/07) Social History Smoking Status: Former smoker how long ago did patient quit smokin years ago alcohol intake: current alcohol intake frequency: holidays/special occasions only Alcohol type: wine substance use type: does not use caffeine: No what type of physical activity do you participate in: none seatbelt use: always ROS ROS ED Constitutional Constitutional ED: Denies chills or fever(s) Eyes Eyes: Denies change in vision or diplopia ENT ENT ED: Denies rhinorrhea or sore throat Cardiovascular Cardiovascular: Reports chest pain and lightheadedness; Denies palpitations Respiratory/Chest Respiratory/Chest: Reports dyspnea; Denies cough Gastrointestinal Gastrointestinal: Denies abdominal pain, diarrhea, nausea or vomiting Genitourinary Genitourinary ED: Denies dysuria or hematuria Musculoskeletal Musculoskeletal: Denies back pain or neck pain Integumentary Denies abscess or rash Neurologic Neurologic: Denies headache(s), paresthesias or weakness Psychiatric Psychiatric: Denies anxiety or suicidal thoughts EXAM Physical Exam Const Vital Signs: 11/10/21 22:54 11/10/21 22:58 11/10/21 23:00 Temperature 98.5 F Temperature Source Oral Pulse Rate 81 Respiratory Rate 20 H Respiratory Effort Normal Blood Pressure 114/73 Blood Pressure Mean 86 Pulse Ox 93 Oxygen Delivery Method Room Air Oxygen Flow Rate (L/min) 11/10/21 23:24 11/11/21 00:19 11/11/21 01:13 Temperature Temperature Source Pulse Rate 79 64 Respiratory Rate 16 17 Respiratory Effort Blood Pressure 95/53 L 120/73 Blood Pressure Mean 67 88 Pulse Ox 97 98 96 Oxygen Delivery Method Room Air Nasal Cannula Nasal Cannula Oxygen Flow Rate (L/min) 2 2 2 Positive well nourished, well developed and obese General Appearance ED: well developed and NAD Nutritional Appearance: obese HEENT Reports moist mucous membranes normocephalic and atraumatic Eyes PERRL and EOMs intact bilaterally Neck full ROM and supple Resp normal respiratory effort and clear to auscultation bilaterally Cardio no murmurs Rate: Negative for tachycardic Rhythm: abnormal rhythm irregularly irregular GI non-tender and non-distended Auscultation: normoactive bowel sounds Palpation: soft Back/Spine no CVA tenderness General Back: other FROM Extremity normal to inspection and no calf tenderness General Extremety ED: Negative for edema, pulses abnormal or tenderness General Extremity: Negative for edema or pulses abnormal Neuro oriented x3, CN's II-XII intact bilaterally and no sensory deficits noted Sensorium / Orientation: awake and alert Motor Exam: strength 5/5 throughout Skin no rashes or lesions noted and no wounds Heart Score History: Slightly/Non-Suspicious ECG: Nonspecific Repolarization Age: >/= 65 years Risk Factors: >/= 3 Risk Factors or History of CAD Troponin: </= Normal Limit Score: 5 MDM MDM MDM Narrative Medical decision making narrative: I did review the patient's records, 9 days ago she had an exercise stress test that was negative. It appears that the indications for it were the fact that the patient had chest discomfort and dyspnea, feeling like something sitting on my chest. Her enzymes are negative here, we did a 2-hour delta, they were actually lower, from 10 to 7. Patient is reassured, she is not on a PPI so I will put her on a 2-week course to see if that changes any of her symptoms and have her follow-up. Lab Data Attestation: I reviewed the patient's lab results. Labs: Laboratory Results - last 24 hr 11/10/21 11/10/21 11/11/21 23:20 23:20 01:25 WBC 10.0 RBC 5.14 Hgb 14.2 Hct 45.7 MCV 88.9 MCH 27.6 MCHC 31.1 L RDW Std Deviation 42.0 RDW Coeff of Burke 12.7 Plt Count 313 MPV 11.6 Immature Gran % (Auto) 0.400 Neut % (Auto) 60.5 Lymph % (Auto) 28.6 Wilson % (Auto) 9.0 Eos % (Auto) 0.9 Baso % (Auto) 0.6 Absolute Neuts (auto) 6.1 Absolute Lymphs (auto) 2.87 Nucleated RBC % 0 Sodium 139 Potassium 3.3 L Chloride 104 Carbon Dioxide 28.0 Anion Gap 7 BUN 33 H Creatinine 1.86 H Estim Creat Clear Calc 20.48 Est GFR (MDRD) Af Amer 33 L Est GFR (MDRD) Non-Af 28 L BUN/Creatinine Ratio 17.7 Glucose 114 H Calcium 9.9 Troponin I High Sens 10 7 Radiography Chest X-Ray - ED: 1 View, Read by ED Physician, No Acute Disease and Chronic Changes Diagnostic Testing: Clinical Impression(s) from Imaging Studies Chest X-Ray 11/10/21 23:20 IMPRESSION: No specific acute abnormality. Postoperative changes. Old granulomatous disease. COPD. Stable mildly tortuous aorta. Electronically Signed: Ashley Carreon MD at 0:11 EDT , Rhythm Strip Rhythm Strip: A-fib Rate: 85 Ectopy: None EKG Initial EKG: Attestation: I personally reviewed and interpreted this EKG as follows: Interpretation: No Acute Injury Pattern, Atrial Fibrillation and Inverted T-Waves (V3-V6, 1, aVL, 2, 3, aVF) Prior EKG tracings: available for review Prior: Unchanged (No marked changes compared with 07/13/2019) Discharge Plan Triage Chief Complaint: Chest Pain ED Provider: Valdez Toney Dx/Rx/DC Orders Clinical Impression: Chest pain, unspecified, STARK (dyspnea on exertion) Instructions: ED Chest Pain, Uncertain Cause Prescriptions: No Action cholecalciferol (vitamin D3) 50,000 unit capsule 50,000 unit PO QWEEK nitroglycerin 0.4 mg tablet, sublingual 0.4 mg SUBLINGUAL Q5M PRN (Reason: Chest Pain) Qty: 25 3RF calcium carbonate 500 mg calcium (1,250 mg) tablet 500 mg PO DAILY Myrbetriq 50 mg tablet extended release 24 hr 50 mg PO DAILY Label Comments: TAKE 1 TABLET BY MOUTH EVERY DAY aspirin 81 MG tablet 81 mg PO DAILY@0800 Label Comments: antithrombotic on hold for surgery warfarin 5 mg tablet 5 mg PO SUMOTUWEFRSA Label Comments: 2.5mg 3 days per week; 5mg all other days of the week sucralfate 1 GM tablet 1 g PO TID Label Comments: gerd albuterol sulfate 1 PUFF inhaler 2 puff INHALATION Q6H PRN (Reason: Wheezing) trospium 60 MG capsule,extended release 24hr 60 mg PO DAILY levothyroxine 50 MCG tablet 125 mcg PO DAILY rosuvastatin 40 MG tablet 40 mg PO QHS niacin 500 MG tablet 500 mg PO QHS ramipril 10 mg capsule 20 mg PO DAILY Qty: 180 3RF hydrochlorothiazide 12.5 mg capsule 12.5 mg PO DAILY Qty: 30 11RF atenolol 50 mg tablet 50 mg PO BID Qty: 180 3RF furosemide [Lasix] 40 mg tablet 40 mg PO DAILY Qty: 30 1RF potassium chloride 20 mEq tablet extended release 20 meq PO DAILY Qty: 30 6RF Primary Care Provider: Rolf Reyes Referrals: oRlf Reyes MD [Primary Care Provider] - (Next week call for appointment) Disposition Disposition: Home, Self Care
--- NOTE | 2021-11-10 23:20 | EKG12_ITS ---
Test Reason : CP Blood Pressure : / mmHG Vent. Rate : 075 BPM Atrial Rate : 394 BPM P-R Int : 000 ms QRS Dur : 098 ms QT Int : 372 ms P-R-T Axes : 000 011 198 degrees QTc Int : 415 ms Atrial fibrillation T wave abnormality, consider inferior ischemia T wave abnormality, consider anterolateral ischemia Abnormal ECG Confirmed by MARCELINA ESCALANTE, XIOMARA ([id number]), newspaper managing editor BERNY HUMPHREYS ([id number]) on 11/11/2021 9:04:33 AM Referred By: PRAVEENA Confirmed By:XIOMARA HEWITT MD
--- NOTE | 2021-11-10 23:20 | RAD_ITS ---
EXAM: XR CHEST, 1 VIEW CLINICAL INDICATION: chest pain TECHNIQUE: Frontal view of the chest. This report was created using [employer] report generation technology. COMPARISON: October 11, 2021, January 02, 2019, May 19, 2018. FINDINGS: LUNGS AND PLEURAL SPACES: Chronic lung changes including lucency in the mid to upper lung salazar and mild increased markings in the lung bases. No convincing infiltrate or effusion other than possibly slight hazy right basilar opacity but it is similar similar to January 02, 2019, probable summation shadow of overlapping ribs and lung markings. Scattered tiny calcified granulomas in both lungs are again noted. No pneumothorax. HEART: Stable normal heart size. MEDIASTINUM: Similar mediastinal and aortic contours, mildly ectatic contour of the descending thoracic aorta but stable. Stable hilar configurations. BONES/JOINTS: Median sternotomy wires again noted. SOFT TISSUES: Unremarkable. RAD/Chest 1 View (Portable) IMPRESSION: No specific acute abnormality. Postoperative changes. Old granulomatous disease. COPD. Stable mildly tortuous aorta. Electronically Signed: Ashley Carreon MD at 0:11 EDT ,
[2021-11-10 23:24] VITALS: O2SAT 97
[2021-11-10 23:32] LABS: Absolute Lymphocyte Count 2.87 X10^3/uL (0.83-4.51); Absolute Neutrophil Count 6.1 X10^3/uL (2.0-7.7); Basophil# 0.06 X10^3/uL; Basophil% 0.6 % (0-1); Eosinophil# 0.09 X10^3/uL; Eosinophils% 0.9 % (0-5); Hematocrit 45.7 % (37-47); Hemoglobin 14.2 g/dL (12.0-15.0); Lymphocyte # 2.87 X10^3/ul (0.83-4.51); Lymphocyte % 28.6 % (19-41); Mean Corp Hgb Conc 31.1 g/dL (32-36); Mean Corpuscular Hgb 27.6 pg (27.0-32.0); Mean Corpuscular Volume 88.9 fL (81-99); Mean Platelet Vol. 11.6 fl (6.2-12.0); NRBC Flagged by Analyzer 0 % (0-5); Neutrophil # 6.08 X10^3/uL (2.7-7.7); Neutrophil % 60.5 % (47-70); Platelet Count 313 K/mm3 (150-450); RBC Distribution Width CV 12.7 % (11.6-14.6); Red Blood Count 5.14 M/mm3 (4.2-5.4)
[2021-11-11] LABS: Anion Gap 7 (5-15); BUN 33 mg/dL (7-18); BUN/Creat Ratio 17.7 RATIO (10-20); Calcium,Total 9.9 mg/dL (8.5-10.1); Chloride 104 mmol/L (98-107); Creatinine, Serum 1.86 mg/dL (0.55-1.02); EST Glomerular Filtration Rate 28 mL/min (>60); Est Glom Filt Rate - Afr Amer 33 mL/min (>60); Estimated Creatinine Clearance 20.48 ml/min; Glucose 114 mg/dL (74-106); Potassium 3.3 mmol/L (3.5-5.1); Sodium Level 139 mmol/L (136-145); Troponin-I HS (w/2H Reflex) 10 pg/mL (3.0-54.0)
[2021-11-11 00:19] VITALS: BP 95/53; PULSE 79; RESP 16; O2SAT 98
[2021-11-11 01:13] VITALS: BP 120/73; PULSE 64; RESP 17; O2SAT 96
[2021-11-11 01:29] LABS: Reflex Troponin-HS? (from REC) Y
[2021-11-11 01:53] LABS: Troponin-I HS 7 pg/mL (3.0-54.0)
[2021-11-11 02:09] VITALS: BP 117/71; PULSE 71; RESP 16; O2SAT 97
== END 2021-11-11 02:10 | disposition home or self-care (01) ==
PROVIDERS: Emergency Provider Emergency Medicine; PCP Family Medicine; Visit Provider Emergency Medicine
DX: R07.9 Chest pain, unspecified (principal); I48.0 Paroxysmal atrial fibrillation; R06.09 Other forms of dyspnea; I25.10 Atherosclerotic heart disease of native coronary artery without angina pectoris; I25.2 Old myocardial infarction; I10 Essential (primary) hypertension; E78.00 Pure hypercholesterolemia, unspecified; E03.9 Hypothyroidism, unspecified; E66.9 Obesity, unspecified; Z68.37 Body mass index [BMI] 37.0-37.9, adult; Z95.5 Presence of coronary angioplasty implant and graft; Z79.01 Long term (current) use of anticoagulants; Z79.82 Long term (current) use of aspirin; Z79.899 Other long term (current) drug therapy; Z86.711 Personal history of pulmonary embolism; Z86.718 Personal history of other venous thrombosis and embolism; Z87.891 Personal history of nicotine dependence
CPT/HCPCS: 71045; 80048; 84484; 85025; 93005; 99285; A4216

== ENCOUNTER → 2022-01-04 | Outpatient (CLI) | payer MEDICARE, OTHER, SELFPAY ==
[2022-01-04 12:33] LABS: Absolute Lymphocyte Count 2.58 X10^3/uL (0.83-4.51); Absolute Neutrophil Count 5.4 X10^3/uL (2.0-7.7); Basophil# 0.04 X10^3/uL; Basophil% 0.4 % (0-1); Eosinophil# 0.05 X10^3/uL; Eosinophils% 0.6 % (0-5); Hematocrit 41.5 % (37-47); Hemoglobin 13.5 g/dL (12.0-15.0); Lymphocyte # 2.58 X10^3/ul (0.83-4.51); Lymphocyte % 28.8 % (19-41); Mean Corp Hgb Conc 32.5 g/dL (32-36); Mean Corpuscular Hgb 28.4 pg (27.0-32.0); Mean Corpuscular Volume 87.2 fL (81-99); Mean Platelet Vol. 11.2 fl (6.2-12.0); Monocyte# 0.86 X10^3/uL; Monocyte% 9.6 % (0-10); NRBC Flagged by Analyzer 0 % (0-5); Neutrophil % 60.2 % (47-70); Platelet Count 270 K/mm3 (150-450); RBC Distribution Width CV 13.2 % (11.6-14.6); RBC Distribution Width SD 42.5 fl (35.1-43.9); Red Blood Count 4.76 M/mm3 (4.2-5.4)
[2022-01-04 13:00] LABS: Anion Gap 5 (5-15); BUN 19 mg/dL (7-18); BUN/Creat Ratio 17.6 RATIO (10-20); Calcium,Total 9.3 mg/dL (8.5-10.1); Chloride 105 mmol/L (98-107); Creatinine, Serum 1.08 mg/dL (0.55-1.02); EST Glomerular Filtration Rate 52 mL/min (>60); Est Glom Filt Rate - Afr Amer 63 mL/min (>60); Glucose 102 mg/dL (74-106); Potassium 3.6 mmol/L (3.5-5.1); Sodium Level 140 mmol/L (136-145)
[2022-01-04 13:36] LABS: BNP,B-Type NATRIURETIC PEPTIDE 428.6 pg/mL (0-100)
== END | disposition home or self-care (01) ==
LOC: LAB 11:39
PROVIDERS: PCP Family Medicine; Visit Provider Nurse Practitioner Gerontology
DX: R06.00 Dyspnea, unspecified (principal)
CPT/HCPCS: 36415; 80048; 83880; 85025

== ENCOUNTER → 2022-01-11 | Outpatient (CLI) | payer MEDICARE, OTHER, SELFPAY ==
[2022-01-11 11:57] LABS: Anion Gap 6 (5-15); BUN 27 mg/dL (7-18); BUN/Creat Ratio 22.7 RATIO (10-20); Calcium,Total 9.6 mg/dL (8.5-10.1); Chloride 103 mmol/L (98-107); Creatinine, Serum 1.19 mg/dL (0.55-1.02); EST Glomerular Filtration Rate 46 mL/min (>60); Est Glom Filt Rate - Afr Amer 56 mL/min (>60); Glucose 109 mg/dL (74-106); Potassium 3.6 mmol/L (3.5-5.1); Sodium Level 141 mmol/L (136-145)
== END | disposition home or self-care (01) ==
LOC: LAB 10:01
PROVIDERS: PCP Family Medicine; Visit Provider Nurse Practitioner Gerontology
DX: R06.00 Dyspnea, unspecified (principal)
CPT/HCPCS: 36415; 80048

== ENCOUNTER → 2022-01-18 | Outpatient (CLI) | payer MEDICARE, OTHER, SELFPAY ==
--- NOTE | 2022-01-19 10:22 | PFT ---
INTRODUCTION: The patient is a 81-year-old female that presents for pulmonary function studies secondary to a diagnosis of dyspnea. Respiratory therapy reported good patient effort. Bronchodilators were used during testing. INTERPRETATION: Forced expiration spirometry demonstrates no evidence of a large airways obstructive ventilatory defect. There was no significant response to aerosolized bronchodilators. Spirograms are of good quality and plateau normally. Body plethysmography was performed and revealed lung volumes to be within normal limits. Diffusing capacity by single breath CO was reduced to 48% of predicted. IMPRESSION: Isolated moderate reduction in diffusing capacity, which could be related to an underlying pulmonary vascular disorder such as pulmonary hypertension. Clinical correlation is recommended.
== END | disposition home or self-care (01) ==
LOC: PSN 10:28
PROVIDERS: PCP Family Medicine; Referring Provider Nurse Practitioner Gerontology; Visit Provider Nurse Practitioner Gerontology
DX: R06.00 Dyspnea, unspecified (principal); I48.0 Paroxysmal atrial fibrillation
CPT/HCPCS: 93225; 93226; 94060; 94726; 94729

== ENCOUNTER 2022-02-03 11:05 | Emergency (ER) | payer MEDICARE, OTHER, SELFPAY ==
[2022-02-03 11:06] VITALS: BP 129/72; PULSE 89; RESP 16; TEMP 36.6; O2SAT 98; BMI 36.6
[2022-02-03 11:24] VITALS: O2SAT 96
--- NOTE | 2022-02-03 11:47 | EX.ED.DYSGE1 ---
HPI History of Present Illness Chief Complaint: Shortness of Breath Narrative Narrative: 81-year-old female presenting with generalized weakness. She states she was diagnosed with a UTI couple of days ago and is on antibiotic but she does not know which antibiotic. She does still have urinary symptoms. Patient also admits to a slight cough without production of sputum. She not had a fever. She states I cannot get all of my chores done. She states that she is trying to mop and clean the house for family and she keeps having to sit down because she is fatigued. She has not specifically noted if she is short of breath she just feels rundown. She not having chest pain or palpitations. No nausea or vomiting. No abdominal pain. 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 Ovarian cancer Ovarian cancer Overactive bladder Paroxysmal atrial fibrillation Pericardial effusion Pulmonary emboli Pure hypercholesterolemia Small bowel obstruction Stress incontinence UTI (urinary tract infection) Wide-complex tachycardia Home Medications sucralfate 1 gram tablet 1 g PO TID gerd 01/28/14 [History Last Taken 07/13/19 22:00 1 gerd] cholecalciferol (vitamin D3) 1,250 mcg (50,000 unit) capsule 50,000 unit PO QWEEK supplement 08/26/18 [History Last Taken 07/09/19 17:00 50,000 unit] nitroglycerin 0.4 mg sublingual tablet 0.4 mg sublingual Q5M PRN Chest Pain #25 tabs 03/31/19 [Rx Last Taken Unknown] levothyroxine 50 mcg tablet 125 mcg PO DAILY Thyroid 07/07/19 [History Last Taken 07/13/19 06:00 125 mcg] trospium 60 mg capsule,extended release 24 hr 60 mg PO DAILY overactive bladder 07/07/19 [History Last Taken 07/13/19 08:00 60 mg] niacin 500 mg tablet,extended release 500 mg PO QHS supplement 07/14/19 [History Last Taken 07/13/19 22:00 500 mg] rosuvastatin 40 mg tablet 40 mg PO QHS cholesterol 07/14/19 [History Last Taken 07/13/19 22:00 40 mg] ramipril 10 mg capsule 20 mg PO DAILY Check with primary doctor #180 caps 11/27/19 [Rx Last Taken Unknown] hydrochlorothiazide 12.5 mg capsule 12.5 mg PO DAILY bp #30 caps 03/19/20 [Rx Last Taken Unknown] atenolol 50 mg tablet 50 mg PO BID Heart/BP #180 tabs 03/18/21 [Rx Last Taken Unknown] warfarin 5 mg tablet 5 mg PO SUMOTUWEFRSA blood thinner 07/07/21 [History Last Taken Unknown] mirabegron 50 mg tablet,extended release 24 hr 50 mg PO DAILY 10/04/21 [History Last Taken Unknown] furosemide 40 mg tablet (Lasix) 40 mg PO DAILY #30 tabs 10/11/21 [Rx Last Taken Unknown] potassium chloride 20 mEq tablet,extended release 20 meq PO DAILY #30 tabs 10/11/21 [Rx Last Taken Unknown] lansoprazole 30 mg capsule,delayed release 30 mg PO DAILY 02/03/22 [History Last Taken Unknown] Allergy/AdvReac Type Severity Reaction Status Date / Time poison niya extract Allergy Itching Verified 02/03/22 11:30 poison oak extract Allergy Itching Verified 02/03/22 11:30 streptokinase [Streptokinase] AdvReac Severe Hives Verified 02/03/22 11:30 Family History Brother Hypertension Cancer Mother CVA (cerebral vascular accident) Hypertension Surgical History H/O coronary artery bypass surgery (~02/2000) History of back surgery History of hysterectomy History of thyroidectomy Hx of appendectomy Stented coronary artery (10/18/07) Social History Smoking Status: Former smoker how long ago did patient quit smokin years ago alcohol intake: current alcohol intake frequency: holidays/special occasions only Alcohol type: wine substance use type: does not use caffeine: No what type of physical activity do you participate in: none seatbelt use: always ROS ROS ED Constitutional Constitutional ED: Reports other Details: Generalized fatigue ; Denies chills or fever(s) ENT ENT ED: Denies rhinorrhea or sore throat Cardiovascular Cardiovascular: Denies chest pain or palpitations Respiratory/Chest Respiratory/Chest: Reports cough Gastrointestinal Gastrointestinal: Denies abdominal pain, diarrhea, nausea or vomiting Genitourinary Genitourinary ED: Reports dysuria and urinary frequency Musculoskeletal Musculoskeletal: Denies arthralgias or back pain Integumentary Denies abscess Neurologic Neurologic: Denies headache(s) or paresthesias Psychiatric Psychiatric: Denies anxiety or depression EXAM Physical Exam Const Vital Signs: 02/03/22 11:06 02/03/22 11:24 02/03/22 13:13 Temperature 97.9 F Temperature Source Temporal Pulse Rate 89 83 Respiratory Rate 16 16 Respiratory Effort Normal Non-Labored Short of Breath Respiratory Depth Normal Respiratory Pattern Normal Blood Pressure 129/72 H 103/61 Blood Pressure Mean 91 75 Pulse Ox 98 95 Oxygen Delivery Method Room Air Room Air Room Air Positive well nourished General Appearance ED: NAD; Negative for pallor HEENT Reports moist mucous membranes Eyes PERRL and EOMs intact bilaterally Chest Wall inspection of chest normal and palpation of chest normal Resp normal respiratory effort and clear to auscultation bilaterally Auscultation: Negative for rales, rhonchi or wheezes Cardio regular rate and regular rhythm GI normal to inspection, nondistended, normoactive bowel sounds Back/Spine no CVA tenderness Neuro oriented x3 and CN's II-XII intact bilaterally Sensorium / Orientation: alert Motor Exam: strength 5/5 throughout Psych mental status grossly normal Skin no wounds and skin turgor normal General Skin Exam: Negative for jaundice or pallor MDM MDM MDM Narrative Medical decision making narrative: Patient is generally well-appearing. She has normal vital signs. Because of her UTI symptoms I will recheck her urinalysis. I will obtain basic lab work as well. Patient is on Coumadin for history of DVT/PE and I will check an INR level. Patient does report a cough so I will check a rapid COVID antigen and a chest x-ray. Rapid COVID is negative. Chest x-ray on my interpretation shows no acute cardiopulmonary process. Radiology does agree. CBC unremarkable. INR is slightly subtherapeutic at 1.7. Patient does have history of PE. However she is not tachycardic, tachypneic, hypoxic. I do not believe she needs a CTA. Renal function at baseline. Potassium slightly low 3.3. Urinalysis negative for infection. At this point I did not find a source of the patient's weakness. I did encourage her to continue take her Coumadin and follow-up with her PCP to ensure that this is therapeutic for the future. Impression: 1. Generalized weakness 2. Dyspnea 3. Dysuria Lab Data Attestation: I reviewed the patient's lab results. Labs: Laboratory Results - last 24 hr 02/03/22 02/03/22 02/03/22 11:55 11:55 11:55 WBC 9.5 RBC 4.62 Hgb 12.7 Hct 40.7 MCV 88.1 MCH 27.5 MCHC 31.2 L RDW Std Deviation 42.0 RDW Coeff of [place] 13.2 Plt Count 250 MPV 10.9 Immature Gran % (Auto) 0.400 Neut % (Auto) 76.7 H Lymph % (Auto) 13.1 L [place] % (Auto) 9.0 Eos % (Auto) 0.6 Baso % (Auto) 0.2 Absolute Neuts (auto) 7.3 Absolute Lymphs (auto) 1.25 Nucleated RBC % 0 PT 19.7 H INR 1.7 Sodium 139 Potassium 3.3 L Chloride 102 Carbon Dioxide 30.0 Anion Gap 7 BUN 25 H Creatinine 1.28 H Estim Creat Clear Calc 29.77 Est GFR (MDRD) Af Amer 51 L Est GFR (MDRD) Non-Af 43 L BUN/Creatinine Ratio 19.5 Glucose 124 H Calcium 9.7 Total Bilirubin 0.60 AST 34 ALT 50 Alkaline Phosphatase 96 Total Protein 6.6 Albumin 3.3 Globulin 3.3 Albumin/Globulin Ratio 1.0 Urine Color Urine Clarity Urine pH Ur Specific [place] Urine Protein Urine Glucose (UA) Urine Ketones Urine Occult Blood Urine Nitrite Urine Bilirubin Urine Urobilinogen Ur Leukocyte Esterase Urine RBC Urine WBC Ur Squamous Epith Cells Urine Bacteria Urine Mucus 02/03/22 13:24 WBC RBC Hgb Hct MCV MCH MCHC RDW Std Deviation RDW Coeff of [place] Plt Count MPV Immature Gran % (Auto) Neut % (Auto) Lymph % (Auto) [place] % (Auto) Eos % (Auto) Baso % (Auto) Absolute Neuts (auto) Absolute Lymphs (auto) Nucleated RBC % PT INR Sodium Potassium Chloride Carbon Dioxide Anion Gap BUN Creatinine Estim Creat Clear Calc Est GFR (MDRD) Af Amer Est GFR (MDRD) Non-Af BUN/Creatinine Ratio Glucose Calcium Total Bilirubin AST ALT Alkaline Phosphatase Total Protein Albumin Globulin Albumin/Globulin Ratio Urine Color Yellow Urine Clarity Clear Urine pH 6.0 Ur Specific [place] 1.010 Urine Protein Negative Urine Glucose (UA) Normal Urine Ketones Negative Urine Occult Blood Negative Urine Nitrite Negative Urine Bilirubin Negative Urine Urobilinogen Normal Ur Leukocyte Esterase 25 H Urine RBC 0 SEEN Urine WBC 0-5 SEEN Ur Squamous Epith Cells 0 SEEN Urine Bacteria 0 SEEN Urine Mucus 0 SEEN Radiography Diagnostic Testing: Clinical Impression(s) from Imaging Studies Chest X-Ray 02/03/22 12:01 IMPRESSION: Stable mild degree of increased linear markings at the lung bases suggestive of scarring. Electronically Signed: Mariano Blackmon MD at 12:35 EDT , Discharge Plan Triage Chief Complaint: Shortness of Breath ED Provider: Carlos Freire Dx/Rx/DC Orders Instructions: ED Dysuria, Uncertain Cause (Adult), ED Weakness (Uncertain Cause) Prescriptions: No Action cholecalciferol (vitamin D3) 50,000 unit capsule 50,000 unit PO QWEEK nitroglycerin 0.4 mg tablet, sublingual 0.4 mg SUBLINGUAL Q5M PRN (Reason: Chest Pain) Qty: 25 3RF Myrbetriq 50 mg tablet extended release 24 hr 50 mg PO DAILY Label Comments: TAKE 1 TABLET BY MOUTH EVERY DAY warfarin 5 mg tablet 5 mg PO SUMOTUWEFRSA Label Comments: 2.5mg 3 days per week; 5mg all other days of the week sucralfate 1 GM tablet 1 g PO TID Label Comments: gerd trospium 60 MG capsule,extended release 24hr 60 mg PO DAILY levothyroxine 50 MCG tablet 125 mcg PO DAILY rosuvastatin 40 MG tablet 40 mg PO QHS niacin 500 MG tablet 500 mg PO QHS lansoprazole 30 mg capsule,delayed release(DR/EC) 30 mg PO DAILY Label Comments: TAKE 1 CAPSULE BY MOUTH DAILY BEFORE BREAKFAST. 1/2 HR BEFORE MEAL. ramipril 10 mg capsule 20 mg PO DAILY Qty: 180 3RF hydrochlorothiazide 12.5 mg capsule 12.5 mg PO DAILY Qty: 30 11RF atenolol 50 mg tablet 50 mg PO BID Qty: 180 3RF furosemide [Lasix] 40 mg tablet 40 mg PO DAILY Qty: 30 1RF potassium chloride 20 mEq tablet extended release 20 meq PO DAILY Qty: 30 6RF Primary Care Provider: Rolf Reyes Referrals: Rolf Reyes MD [Primary Care Provider] - Disposition Disposition: Home, Self Care
--- NOTE | 2022-02-03 12:01 | RAD_ITS ---
STUDY: X-RAY CHEST REASON FOR EXAM: Female, 81 years old. Cough TECHNIQUE: Single AP portable view of the chest. COMPARISON: Comparison is made with prior study dated 11/10/2021. FINDINGS: Mild degree of increased interstitial markings at the lung bases suggestive of bibasilar scarring. No acute infiltrate is seen. There is no demonstrated pleural abnormality. Sternal cerclage wires and vascular clips are present from a prior sternotomy and coronary artery bypass graft procedure (CABG). Normal mediastinum and bertha. Normal visualized pulmonary arteries. There is atherosclerotic calcification of the aortic arch with tortuosity. There are degenerative changes of the visualized thoracic spine. Normal visualized ribs, clavicles, and shoulders. There is no demonstrated abnormality of the visualized soft tissue structures of the upper abdomen. RAD/Chest 1 View (Portable) IMPRESSION: Stable mild degree of increased linear markings at the lung bases suggestive of scarring. Electronically Signed: Mariano Blackmon MD at 12:35 EDT ,
[2022-02-03 12:11] LABS: Absolute Lymphocyte Count 1.25 X10^3/uL (0.83-4.51); Absolute Neutrophil Count 7.3 X10^3/uL (2.0-7.7); Basophil# 0.02 X10^3/uL; Basophil% 0.2 % (0-1); Eosinophil# 0.06 X10^3/uL; Eosinophils% 0.6 % (0-5); Hematocrit 40.7 % (37-47); Hemoglobin 12.7 g/dL (12.0-15.0); Lymphocyte # 1.25 X10^3/ul (0.83-4.51); Lymphocyte % 13.1 % (19-41); Mean Corp Hgb Conc 31.2 g/dL (32-36); Mean Corpuscular Hgb 27.5 pg (27.0-32.0); Mean Corpuscular Volume 88.1 fL (81-99); Mean Platelet Vol. 10.9 fl (6.2-12.0); Monocyte# 0.86 X10^3/uL; NRBC Flagged by Analyzer 0 % (0-5); Neutrophil # 7.28 X10^3/uL (2.7-7.7); Neutrophil % 76.7 % (47-70); Platelet Count 250 K/mm3 (150-450); RBC Distribution Width CV 13.2 % (11.6-14.6); Red Blood Count 4.62 M/mm3 (4.2-5.4); White Blood Count 9.5 K/mm3 (4.4-11.0)
[2022-02-03 12:19] LABS: International Normalized Ratio 1.7; Prothrombin Time (Protime)PT. 19.7 SECONDS (11.7-14.9)
[2022-02-03 12:26] LABS: AST(SGOT) 34 U/L (15-37); Alanine Aminotransfer ALT/SGPT 50 U/L (13-56); Albumin, Serum 3.3 g/dL (3.2-5.0); Alkaline Phosphatase 96 U/L (45-117); Anion Gap 7 (5-15); BUN 25 mg/dL (7-18); BUN/Creat Ratio 19.5 RATIO (10-20); Calcium,Total 9.7 mg/dL (8.5-10.1); Chloride 102 mmol/L (98-107); Creatinine, Serum 1.28 mg/dL (0.55-1.02); EST Glomerular Filtration Rate 43 mL/min (>60); Est Glom Filt Rate - Afr Amer 51 mL/min (>60); Estimated Creatinine Clearance 29.77 ml/min; Globulin 3.3 g/dL (2.2-4.2); Glucose 124 mg/dL (74-106); Potassium 3.3 mmol/L (3.5-5.1); Protein, Total 6.6 g/dL (6.4-8.2); Sodium Level 139 mmol/L (136-145)
[2022-02-03 13:13] VITALS: BP 103/61; PULSE 83; RESP 16; O2SAT 95
[2022-02-03 13:30] LABS: Bacteria 0 SEEN /hpf (None Seen); Mucous, Urine 0 SEEN /hpf (<or=2+); Red Blood Cells-Urine 0 SEEN /hpf (0-5); Squamous Epithelial Cells - UA 0 SEEN /hpf (5-10)
[2022-02-03 13:49] LABS: Color, Urine Yellow (Yellow); Glucose, Dipstick Normal (Normal); Ketone-Dipstick Negative (Negative); Leukocyte Esterase-Dipstick 25 /ul (Negative); Nitrite-Dipstick Negative (Negative); Occult Blood-Urine Negative /ul (Negative); Protein-Dipstick Negative (Negative); Urine Bilirubin Dipstick Negative (Negative); Urine Clarity Clear (Clear); Urine Urobilinogen Normal (Normal)
[2022-02-03 13:54] LABS: White Blood Cells 0-5 SEEN /hpf (0-5)
[2022-02-03 14:15] VITALS: BP 128/57; PULSE 87; RESP 16; O2SAT 95
== END 2022-02-03 14:20 | disposition home or self-care (01) ==
PROVIDERS: Emergency Provider Student in an Organized Health Care Education/Training Program; PCP Family Medicine; Visit Provider Student in an Organized Health Care Education/Training Program
DX: R53.1 Weakness (principal); I48.0 Paroxysmal atrial fibrillation; R06.00 Dyspnea, unspecified; R30.0 Dysuria; I25.10 Atherosclerotic heart disease of native coronary artery without angina pectoris; E78.00 Pure hypercholesterolemia, unspecified; I10 Essential (primary) hypertension; I25.2 Old myocardial infarction; Z86.711 Personal history of pulmonary embolism; Z79.01 Long term (current) use of anticoagulants; Z79.899 Other long term (current) drug therapy; Z87.891 Personal history of nicotine dependence; Z86.718 Personal history of other venous thrombosis and embolism
CPT/HCPCS: 71045; 80053; 81001; 85025; 85610; 87811; 99283; A4216

== ENCOUNTER → 2022-02-03 | Outpatient (CLI) | payer MEDICARE, OTHER, SELFPAY ==
[2022-02-03 09:21] LABS: International Normalized Ratio 1.7; Prothrombin Time (Protime)PT. 19.4 SECONDS (11.7-14.9)
== END | disposition home or self-care (01) ==
LOC: LAB.FUTURE 08:56 → LABSPEC 08:57
PROVIDERS: PCP Family Medicine; Visit Provider Family Medicine
DX: Z86.718 Personal history of other venous thrombosis and embolism (principal)
CPT/HCPCS: 85610

== ENCOUNTER → 2022-02-09 | Outpatient (CLI) | payer MEDICARE, OTHER, SELFPAY ==
[2022-02-09 11:22] LABS: BNP,B-Type NATRIURETIC PEPTIDE 379.4 pg/mL (0-100)
[2022-02-09 11:31] LABS: Anion Gap 8 (5-15); BUN 22 mg/dL (7-18); Calcium,Total 9.7 mg/dL (8.5-10.1); Chloride 104 mmol/L (98-107); Creatinine, Serum 1.16 mg/dL (0.55-1.02); EST Glomerular Filtration Rate 48 mL/min (>60); Est Glom Filt Rate - Afr Amer 58 mL/min (>60); Glucose 104 mg/dL (74-106); Magnesium 1.9 mg/dL (1.6-2.6); Sodium Level 141 mmol/L (136-145); Thyroid Stim Hormone (TSH) 0.17 uIU/mL (0.358-3.74)
== END | disposition home or self-care (01) ==
PROVIDERS: PCP Family Medicine; Visit Provider Nurse Practitioner Gerontology
DX: R06.00 Dyspnea, unspecified (principal); I48.0 Paroxysmal atrial fibrillation
CPT/HCPCS: 80048; 83735; 83880; 84443

== ENCOUNTER → 2022-03-21 | Day surgery (SDC) | payer MEDICARE, OTHER, SELFPAY ==
[2022-03-13 09:52] LABS: Absolute Lymphocyte Count 1.91 X10^3/uL (0.83-4.51); Absolute Neutrophil Count 6.4 X10^3/uL (2.0-7.7); Basophil# 0.05 X10^3/uL; Basophil% 0.5 % (0-1); Eosinophil# 0.05 X10^3/uL; Eosinophils% 0.5 % (0-5); Hematocrit 40.5 % (37-47); Hemoglobin 12.5 g/dL (12.0-15.0); Lymphocyte # 1.91 X10^3/ul (0.83-4.51); Lymphocyte % 19.8 % (19-41); Mean Corp Hgb Conc 30.9 g/dL (32-36); Mean Corpuscular Hgb 28.1 pg (27.0-32.0); Mean Platelet Vol. 11.2 fl (6.2-12.0); Monocyte# 1.15 X10^3/uL; Monocyte% 11.9 % (0-10); NRBC Flagged by Analyzer 0 % (0-5); Neutrophil # 6.43 X10^3/uL (2.7-7.7); Neutrophil % 66.9 % (47-70); Platelet Count 239 K/mm3 (150-450); RBC Distribution Width CV 13.3 % (11.6-14.6); RBC Distribution Width SD 44.4 fl (35.1-43.9); Red Blood Count 4.45 M/mm3 (4.2-5.4); White Blood Count 9.6 K/mm3 (4.4-11.0)
[2022-03-13 09:56] LABS: International Normalized Ratio 2.2; Prothrombin Time (Protime)PT. 24.4 SECONDS (11.7-14.9)
[2022-03-13 10:15] LABS: BNP,B-Type NATRIURETIC PEPTIDE 378.6 pg/mL (0-100)
[2022-03-13 10:30] LABS: Anion Gap 7 (5-15); BUN 19 mg/dL (7-18); Chloride 105 mmol/L (98-107); Creatinine, Serum 1.12 mg/dL (0.55-1.02); EST Glomerular Filtration Rate 50 mL/min (>60); Est Glom Filt Rate - Afr Amer 60 mL/min (>60); Glucose 103 mg/dL (74-106); Potassium 3.6 mmol/L (3.5-5.1); Sodium Level 141 mmol/L (136-145); T4 Free Direct 1.41 ng/dL (0.76-1.46); Thyroid Stim Hormone (TSH) 0.23 uIU/mL (0.358-3.74)
[2022-03-20 07:48] VITALS: BMI 36.3
[2022-03-20 10:46] LABS: Anion Gap 4 (5-15); BUN 17 mg/dL (7-18); BUN/Creat Ratio 16.2 RATIO (10-20); Calcium,Total 9.7 mg/dL (8.5-10.1); Chloride 108 mmol/L (98-107); Creatinine, Serum 1.05 mg/dL (0.55-1.02); EST Glomerular Filtration Rate 53 mL/min (>60); Est Glom Filt Rate - Afr Amer 65 mL/min (>60); Estimated Creatinine Clearance 36.29 ml/min; Glucose 101 mg/dL (74-106); Potassium 4.4 mmol/L (3.5-5.1); Sodium Level 142 mmol/L (136-145)
--- NOTE | 2022-03-20 12:47 | HP.PCM_ITS ---
History and Physical Date of Admission: 03/21/22 [facility] [address] [place], [place] [address] OFFICE VISIT Date of Service:? 03/13/22 MR#: [id number] Acct: [id number] Name:? SANDRINE RIVERS Rep #: [id number] : 1940 ?Provider: ?RAMSES Hurtado Age/Sex:? 81/F ?Location: [facility] Status: Signed HPI HPI History of Present Illness Surgical H&P: Yes Details: This is an 81-year-old white female who presents today for outpatient cardiovascular follow-up visit. She has a history of underlying CAD, CABG (1999 with a PATINO to the LAD and an SVG to the diagonal branch), PTCA/stent to the LAD (2015 2007), paroxysmal atrial fibrillation, hyperlipidemia, and hypertension. Her most recent Holter monitor demonstrated atrial fibrillation 99.9% of the time. Her stress test from 11/02/2021 was negative, and her Echocardiogram from 11/02/2021 demonstrated an ejection fraction of 55%, and moderately enlarged left atrium, and mildly enlarged right atrium. From a cardiac standpoint, the patient is doing well. She denies any palpitations. She denies any chest pain. She does have occasional chest pressure. She states this is when she is lying down, and she turns over on her side and this relieves the pressure. She continues to have SOB with exertion and at rest. This is nothing new or worsening. She does have occasional Orthopnea. She denies PND. She does not have bleeding issues; no blood in urine, stool or nosebleeds. She denies any decrease in energy level, myalgias, or claudication.? She does not have edema, or sudden weight gain. She does have occasional dizziness with positional changes. She denies lightheadedness, syncopal or near syncopal episodes, and headaches. She states that her INR has been therapeutic over the last 4 weeks. Intake Vital Signs ? 02/10/2208:52 03/13/2208:25 03/13/2208:25 03/13/2208:32 Height 5 ft 4 in 5 ft 4 in 5 ft 4 in 5 ft 4 in Weight: ? 212 lb ? ? BMI ? 36.3 ? 36.3 BP ? 134/82 H ? ? Blood Pressure Location ? Lt brachial ? ? Position ? Sitting ? ? Respiration ? 20 H ? ? Pulse ? 76 ? ? Pulse Source ? Monitor ? ? Pulse Oximetry (%) ? 98 ? ? 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 Is patient in pain?: No Allergies poison niya extract Allergy (Verified 03/13/22 08:54) Itchingpoison oak extract Allergy (Verified 03/13/22 08:54) Itchingstreptokinase [Streptokinase] Adverse Reaction (Severe, Verified 03/13/22 08:54) Hives Medications cholecalciferol (vitamin D3) 1,250 mcg (50,000 unit) capsule 50,000 unit PO QWEEK supplement 08/26/18 [History Confirmed 03/13/22] nitroglycerin 0.4 mg sublingual tablet 0.4 mg sublingual Q5M PRN Chest Pain #25 tabs 03/31/19 [Rx Confirmed 03/13/22] trospium 60 mg capsule,extended release 24 hr 60 mg PO DAILY overactive bladder 07/07/19 [History Confirmed 03/13/22] rosuvastatin 40 mg tablet 40 mg PO QHS cholesterol 07/14/19 [History Confirmed 03/13/22] hydrochlorothiazide 12.5 mg capsule 12.5 mg PO DAILY bp #30 caps 03/19/20 [Rx Confirmed 03/13/22] atenolol 50 mg tablet 50 mg PO BID Heart/BP #180 tabs 03/18/21 [Rx Confirmed 03/13/22] warfarin 5 mg tablet 5 mg PO SUMOTUWEFRSA blood thinner 07/07/21 [History Confirmed 03/13/22] mirabegron 50 mg tablet,extended release 24 hr 50 mg PO DAILY 10/04/21 [History Confirmed 03/13/22] furosemide 40 mg tablet (Lasix) 40 mg PO DAILY #30 tabs 10/11/21 [Rx Confirmed 03/13/22] potassium chloride 20 mEq tablet,extended release 20 meq PO DAILY #30 tabs 10/11/21 [Rx Confirmed 03/13/22] lansoprazole 30 mg capsule,delayed release 30 mg PO DAILY 02/03/22 [History Confirmed 03/13/22] niacin 500 mg tablet,extended release 24 hr 500 mg PO BID 02/09/22 [History Confirmed 03/13/22] levothyroxine 137 mcg tablet 124 mcg PO DAILY 03/13/22 [History Confirmed 03/13/22] ramipril 10 mg capsule 10 mg PO DAILY Check with primary doctor 03/13/22 [History Confirmed 03/13/22] PFSH Medical History?(Reviewed 03/13/22 @ 08:54 by Shirin Hurtado MEDIATION COMMISSIONER, MEDIATION COMMISSIONER-C) Abnormal dobutamine stress echocardiogram Atherosclerotic heart disease of [place] coronary artery without angina pectoris Chest pain Chest pain due to CAD DVT (deep venous thrombosis) Dyspnea on exertion Essential hypertension GERD (gastroesophageal reflux disease) History of acute myocardial infarction of anterolateral wall (02/2000) History of DVT (deep vein thrombosis) History of pulmonary embolism Hypothyroid ivc filter retreval Left-sided pyelonephritis Other mcc (current) drug therapy Ovarian cancer Ovarian cancer Overactive bladder Paroxysmal atrial fibrillation Pericardial effusion Pulmonary emboli Pure hypercholesterolemia Small bowel obstruction Stress incontinence UTI (urinary tract infection) Wide-complex tachycardia Surgical History? H/O coronary artery bypass surgery (~02/2000) History of back surgery History of hysterectomy History of thyroidectomy Hx of appendectomy Stented coronary artery (10/18/07) Family History? Brother Hypertension CancerMother CVA (cerebral vascular accident) Hypertension Social History? Smoking Status:? Former smoker how long ago did patient quit smoking:? 19 years ago alcohol intake:? current alcohol intake frequency: holidays/special occasions only Alcohol type: wine substance use type:? does not use caffeine:? No what type of physical activity do you participate in:? none seatbelt use:? always ROS Const Const: Negative for fatigue, fever(s), chills, weight gain or weight loss Eyes Eyes: Negative for blind spots, loss of peripheral vision, transient loss of vision, change in vision, floaters or tunnel vision ENT ENT: Positive for dizziness (occasional with positional changes); Negative for Nosebleed/epistaxis, balance problems or neck pain Cardio Chest Pain: Yes Frequency: other (occasional when lying down) Character: other (pressure) Onset: positional Duration: brief Exacerbation: positional Relieving: positional Palpitations: No Edema: None Muscle aches with walking: None Resp Respiratory: Positive for SOB with activity, SOB at rest and SOB orthopnea\SOB lying down (occasional) GI GI: Negative nausea, vomiting, heartburn, bloating, vomiting blood/hematemesis, bright, red blood in stools or black,tarry stools Musc Musc: Negative for muscle aches/ myalgia, muscle weakness, joint pain or balance problems Neuro Neuro: Positive for dizziness (occasional with positional changes) [place] Hematologic/Lymphatic: Negative for easy bleeding or easy bruising Endo Endo: Negative for fatigue Cardiology Exam Const Appearance: cooperative and no acute distress Nutritional Appearance: obese Orientation: alert and oriented x3 Head Head: normal to inspection Ears: hearing grossly normal bilaterally Nose: external nose normal Face and Sinus: face symmetric Eyes General: appearance normal, both eyes and all related structures Eyelids: eyelids normal Conjunctivae: conjunctivae normal Pupils: PERRL and pupil size EOM: EOM intact bilaterally Neck Neck: normal visual inspection Carotids: Negative bruit Chest Chest inspection: normal inspection of the chest and normal respiratory effort Auscultation: Bilateral: Clear to Auscultation Cardio Palpation: normal PMI Rate: regular rate Rhythm: irregularly irregular Heart sounds: S1 normal and S2 normal; Negative rub, gallop or murmur GI GI: normal to inspection, soft and obese; Negative no hepatosplenomegaly Neuro General: patient alert, patient oriented x3 and CN's II-XI intact bilaterally Skin Skin: no rashes or lesions noted Extremities Pulses: Normal: Right Posterior Tibial Pulse, Left Posterior Tibial Pulse, Right Radial Pulse and Left Radial Pulse Lower Extremity Edema: None: Bilateral Psych Psychological: normal affect Supplemental Info Supplemental Information Echocardiogram 11/02/2021: The study was technically difficult. Contrast injection was performed. ? Based upon the 2D echocardiographic and contrast enhanced images obtained there appears to be grossly normal left ventricular size, wall motion, and systolic function. The estimated ejection fraction is 55 %. Mild concentric left ventricular hypertrophy. The left atrium is moderately enlarged. The right atrium is mildly enlarged. There is mild to moderate mitral annular calcification. Extension of the mitral annular calcification onto the base of the posterior mitral valve leaflet. Mild (1+) mitral valve insufficiency. Mild tricuspid valve insufficiency. Mild diffuse aortic valve thickening. Mild focal aortic valve calcification. Trivial aortic valve insufficiency. Calcified aortic root. Right ventricular systolic pressure estimated to be 27 mmHg. Unable to assess diastolic dysfunction. ? Stress test 11/02/2021: Interpretation: Rest and stress SPECT Cardiolite nuclear imaging status post realignment, normalization, and attenuation correction demonstrate the appearance of body motion during image acquisition and otherwise the appearance of relative uniform tracer uptake and myocardial perfusion appearing within normal limits.? There is end systolic thickening and brightening.? The gated Cardiolite study demonstrates myocardial thickening and inward wall motion.? The reported LVEF is 63%. Impression: 1.? Rest and stress SPECT Cardiolite nuclear imaging demonstrate relative uniform tracer uptake and myocardial perfusion appearing within normal limits. 2.? The gated Cardiolite study reports an LVEF of 63%. Stress Test Report: Date: 03/22/2017 Procedure: Hologic stress nuclear imaging study Indications: Atrial fibrillation; CAD; status post PCI; status post CABG; preoperative cardiovascular evaluation Sent: Per the patient Procedure: The patient underwent pharmacologic (Regadenoson) evaluation with a peak heart rate of 60 bpm (41% predicted maximal heart rate) with a peak blood pressure 128/80 mmHg. The baseline ECG demonstrated sinus bradycardia with nonspecific ST and T-wave abnormality.? The peak pharmacologic ECG demonstrated no obvious ECG changes. There were no obvious cardiac dysrhythmias pretest, during pharmacologic infusion, or recovery. There was no report of chest discomfort during pharmacologic infusion or recovery. The examination was discontinued secondary to completion of protocol. Impression: 1.? Pharmacologic (Regadenoson) UA núñez 2.? Peak pharmacologic ECG with continued nonspecific ST and T-wave abnormality 3.? Nuclear images pending Myocardial perfusion imaging study: Technique: The patient was injected with 14.9 mCi of technetium 99m Cardiolite and subsequently rest SPECT Cardiolite nuclear imaging was obtained in the horizontal long, vertical long, and short axis views. The patient underwent pharmacologic (Regadenoson) evaluation with a peak heart rate of 60 bpm (41% predicted maximal heart rate) with a peak blood pressure 128/80 mmHg and the patient was injected with 45.0 mCi of technetium 99m Cardiolite and subsequently stress SPECT cardio light nuclear imaging was obtained in the horizontal long, vertical long, and short axis views.? He did Cardiolite study at peak stress was obtained. Interpretation: Rest and stress SPECT cardiac nuclear imaging that is post realignment, normalization, and attenuation correction, demonstrate the appearance of relative uniform tracer uptake and myocardial perfusion appearing within normal limits.? There is end systolic thickening and brightening.? The gated Cardiolite study demonstrates myocardial thickening and inward wall motion.? The reported LVEF is 67%. Impression: 1.? Rest and stress SPECT Cardiolite nuclear imaging demonstrate relative uniform tracer uptake and myocardial perfusion appearing within normal limits. 2.? The gated Cardiolite study reports an LVEF of 67%. Stress Echo: 01/03/2019 Reason For Study: CHEST PAIN Stress Results ? Protocol:? Dobutamine with definity? Maximum Predicted HR: ? 142 bpm ? Target HR: 121 bpm ? % Maximum Predicted HR: 122 % ? DurationHeart Rate ? ? ? Stage? (mm:ss) ? (bpm) ? ? BP? Dose? Comment ?? ? BASELINE? 51? ? 170/74 ? ? 2.5 CC DEFINITY ?? ? STAGE 1 ? 3:56? ? ? 51? ? 155/7310.000.5CC DEFINITY ?? ? STAGE 2 ? 3:00? ? ? 75? ? 127/6620.00 ?? ? STAGE 3 ? 3:00 ? ? 107? ? 167/5530.00 ?? ? STAGE 4 ? 3:00 ? ? 173? ? ? / ? 40.00AFIB/FLUTTER, NO CHEST PAIN, BUT FEELS HEART THUMPING ?? ? RECOVERY? 75? ? 127/82 ? ? 2 CC DEFINITY ? Stress Duration: ? 12:56 mm:ss ? Maximum Stress HR: 173 bpm Baseline Echocardiogram Findings The estimated ejection fraction is 65 %. ? Stress Echo Wall motion Data ? Resting WM ? Intermediate WM ? Stress WM ? Resting Wall Motion? Wall Motion Stress No regional wall motion? No regional wall motion abnormalities noted. ? abnormalities noted. EKG Data The baseline ECG displays normal sinus rhythm. The patient was titrated from 10 mcg to a maximum of 40 mcg of dobutamine during the stress. The maximum heart rate attained was 179 beats per minute. This was 126% of maximum predicted heart rate. During dobutamine infusion, there were no ST or T wave changes noted to suggest ischemia. No clinical angina was noted. Interpretation Summary The estimated ejection fraction is 65 %. Normal, adequate, dobutamine echocardiogram. Negative for ischemia by EKG and echocardiographic criteria. No anginal symptoms noted. Patient converted from normal sinus rhythm to atrial fibrillation during dobutamine infusion. Despite IV Lopressor post procedure, she remained in atrial fibrillation. Rare PVCs noted. Appropriate blood pressure response to dobutamine. Decreased sensitivity due to poor echo windows requiring Definity agent. Final LVEF is 75%. No complications. Will recommend DC cardioversion if patient does not spontaneously convert on the floor after 2 hours. Patient compliant with Coumadin, INR is 2.4 today. The study was technically difficult. Contrast injection was performed. Cardiac cath: DATE OF PROCEDURE: November 10, 2015. HISTORY OF PRESENT ILLNESS: The patient is a very pleasant 75-year-old non-diabetic female with a history of hypertension, hypercholesterolemia, coronary artery disease, status post 2- vessel bypass surgery in 1999.? At that time, she received a PATINO to the LAD and a saphenous vein graft to the diagonal.? She also had stenting to her LAD x2 in February 2006 and then again in September of 2007 for a failed PATINO to the LAD.? The last catheterization was in 2011, which demonstrated an atretic PATINO, and a widely patent saphenous vein graft to the diagonal. At that time, her LAD stents were widely patent. The patient underwent a stress echocardiogram for chest discomfort and shortness of breath.? During this time, she developed wide complex tachycardia and was referred for left heart catheterization to evaluate her stents and [place] coronaries. The risks and benefits of the procedure were thoroughly explained to the patient and informed consent was obtained.? The patient was brought to the environmental laboratory technician in the fasting state.? She was prepped and draped in usual sterile fashion.? Under fluoroscopic guidance, the right femoral artery was anesthetized with 1% lidocaine followed by access with a single anterior stick of a Cook needle, followed by placement of an exchange length J-wire.? Next, a 4-Vietnamese sheath was placed without complications and flushed with heparinized saline.? Next, a 4-Vietnamese JL5 catheter was easily engaged into the left main coronary artery.? There was no dampening or ventricularization upon engagement. LEFT MAIN: The left main is a very large vessel and bifurcates into an LAD and left circumflex artery.? There are no significant lesions seen in the left main. LEFT ANTERIOR DESCENDING: The LAD is a large vessel with several visible stents seen in its proximal mid portion. All the stents are widely patent and have no significant in-stent restenosis.? The remainder of the LAD is somewhat tortuous and wraps around the apex of the heart.? There are no other significant lesions seen in the LAD system. LEFT CIRCUMFLEX: The left circumflex is a nondominant vessel, which consists of a large AV circumflex and terminates into 2 moderately sized obtuse marginal branches.? Obtuse marginal #1 is a large vessel, which is free of significant disease. Obtuse marginal #2 is a moderate-sized vessel, which is also free of significant disease. Her [place] AV circumflex is also free of significant disease. The JL5 catheter was exchanged over a wire for a 4-Vietnamese 3DRC catheter.? This was easily engaged into the right coronary artery.? There was no dampening or ventricularization upon engagement. RIGHT CORONARY ARTERY: The RCA is a large and dominant vessel, which terminates into a PDA.? It is fairly tortuous.? It is angiographically normal and has no significant lesions that require intervention at this time. Next, the 3DRC catheter was manipulated into the saphenous vein graft to the diagonal. There was no dampening or ventricularization upon engagement.? The SVG to the diagonal is a large vessel, which terminates into a very small diagonal branch.? There are no significant lesions seen in the saphenous vein graft.? The diagonal branch is fairly small, but has JUSTIN 3 flow through it.? There are no lesions, which require intervention at this time. Next, the 3DRC catheter was exchanged over a wire for a 4-Vietnamese angled pigtail catheter. This was easily engaged into the left ventricular chamber.? 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 The overall ejection fraction was approximately 65%.? No significant mitral regurgitation noted.? No significant gradient seen. CONCLUSIONS: 1.? A widely patent LAD stent. 2.? Widely patent saphenous vein graft to diagonal. 3.? Previously noted atretic PATINO to the LAD. 4.? Angiographically normal left circumflex, obtuse marginals and right coronary artery. RECOMMENDATIONS: At this point, her wide complex tachycardia was most likely a product of her conduction abnormality and probably an aberrant finding during her dobutamine echocardiogram.? There are no significant lesions, which require intervention at this time.? Recommend continuing medical management in the form of aspirin, beta-blockers.? She will resume her Coumadin tomorrow evening once her groin has been deemed to be stable.? She will follow up with me in the office going forward. The sheath was removed in the environmental laboratory technician and hemostasis obtained.? The patient tolerated the procedure well with no complications. Labs: ?? ? LDL Cholesterol 50 mg/dL (0-130) ?? ? HDL Cholesterol 56 mg/dL (40-) ?? ? Triglycerides 191 mg/dL (-199) ?? ? VLDL Cholesterol 38 mg/dL (5-40) Diagnostics: ?? ? Electrocardiogram ? Echocardiogram ? Stress Echocardiogram ? Stress Test NM ? Stress Test ? Cardiac Catheterization ? Chest X-Ray ? Pulmonary: ?? ? Pulmonary Function Test ? Assessment and Plan Assessment and Plan (1) Atherosclerotic heart disease of [place] coronary artery without angina pectoris: ?Status:?Chronic ?Qualifiers: ?[place] vs. transplanted heart:?[place] heart? Qualified Code(s):?I25.10 - Atherosclerotic heart disease of [place] coronary artery without angina pectoris ?Comment: S/P bypass surgery in 1999 with PATINO to LAD and SVG to diagonal; stenting x2 to LAD in February 2006 and September 2007; ?Plan: Patient has a history of coronary artery disease with bypass surgery in 1999, and stent placement in 2007 and 2015. Her most recent stress test from 11/02/2021 was negative for ischemia. This was reviewed with patient.? At this time, she will continue with her current medical therapy, along with aggressive risk factor and lifestyle modifications. (2) Paroxysmal atrial fibrillation: ?Status:?Chronic ?Plan: Patient has a history of paroxysmal atrial fibrillation. Her echocardiogram from 10/2021 demonstrated moderately enlarged left atrium, and mildly enlarged right atrium.? Her most recent Holter monitor demonstrated atrial fibrillation 99.9%. She does have complaints of dyspnea with exertion and at rest, and occasional chest pressure. Her EKG from today demonstrates atrial fibrillation, heart rate 80bpm. Her INR's have been therapeutic over the last 4 weeks. She will undergo a cardioversion on 03/21/[address] Waite. Cardioversion instructions given to patient, and she verbalizes understanding.? At this time, she will continue atenolol 50 mg twice daily, and warfarin.? She will maintain a therapeutic INR of 2.0-3.0, this is monitored by her PCP. She will send us the results. (3) Essential hypertension: ?Status:?Chronic ?Plan: Patient has a history of hypertension.? Her blood pressure is well controlled at this time.? She will continue with her current medical therapy, along with monitoring her blood pressures at home. She will notify our office of any persistent high or low blood pressure readings. (4) Pure hypercholesterolemia: ?Status:?Chronic ?Plan: Patient has a history of hypercholesterolemia.? Patient states her PCP monitors this.? She will continue with rosuvastatin 40 mg daily, along with aggressive risk factor and lifestyle modifications. (5) Dyspnea: ?Status:?Acute ?Plan: Patient has complaints of increased dyspnea with exertion and at rest. Her most recent echocardiogram from 10/2021 demonstrated an ejection fraction of 55%. We will obtain lab work to evaluate for fluid overload. If deemed appropriate, we may need to increase patient's Lasix therapy. ? ? ? Orders: Orders 12 Lead EKG performed by [facility] Today I10 - Essential (primary) hypertension, I48.0 - Paroxysmal atrial fibrillation ? Cardioversion 03/21/22 I48.0 - Paroxysmal atrial fibri llation ? Basic Metabolic Profile (BMP) Today I48.0 - Paroxysmal atrial fibrillation ? T4 Free Direct Today I48.0 - Paroxysmal atrial fibrillation ? Thyroid Stim Hormone (TSH) Today I48.0 - Paroxysmal atrial fibrillation ? Prothrombin Time w/INR Today I25.10 - Atherosclerotic heart disease of [place] coronary artery without angina pectoris ? CBC W/Diff, Automated Today R06.00 - Dyspnea, unspecified ? BNP,B-Type NATRIURETIC PEPTIDE Today R06.00 - Dyspnea, unspecified ? Medications: Changed From ramipril 20 mg (2 x 10 mg) PO DAILY 180 caps 3RF Check with primary doctor ? ? To ramipril 10 mg? PO DAILY Check with primary docto r ? ? Plan Details Additional Comments: Patient will follow up in 2 months, or sooner if needed. Thank you for allowing me to participate in the care of your patient. Please don't hesitate to call if any issues arise. This note was generated using a voice recognition system and there may be incorrect words, spelling, or punctuation that were not noted when reviewing the office note prior to saving. Portions of this documentation were copied and pasted from previous office visit notes to provide a cohesive continuity of the history. The note has been reviewed, edited, and updated, as necessary. Follow Up: ? ? Keep as is? (KRR) ? ? 1 week post cardioversion EKG COVID (Procedure Consent) Procedure Criteria Procedure Criteria: Yes Elective The surgeon/proceduralist and patient have discussed in detail the risk of exposure to and/or potential harm posed by the COVID-19 virus with having a surgery/procedure at this time versus the risk of? delaying the surgery/procedure. It is not possible to know either the risk of delaying the surgery or procedure or chance of getting an infection with perfect accuracy, bu t a joint decision was made between the patient and the surgeon/proceduralist ?to proceed at this time with the scheduled surgery/procedure as indicated on the consent form. Coding Level of Care Code Off vis,est,level 4 Diagnoses Atherosclerotic heart disease of [place] coronary artery without angina pectoris? I25.10 ? ? ? [place] vs. transplanted heart: [place] heart Paroxysmal atrial fibrillation? I48.0 Essential hypertension? I10 Pure hypercholesterolemia? E78.00 Dyspnea? R06.00 Coding Level of Care Code Off vis,est,level 4 Diagnoses Atherosclerotic heart disease of [place] coronary artery without angina pectoris? I25.10 ? ? ? [place] vs. transplanted heart: [place] heart Paroxysmal atrial fibrillation? I48.0 Essential hypertension? I10 Pure hypercholesterolemia? E78.00 Dyspnea? R06.00 03/13/2217 <Electronically signed by Shirin HENDERSONC> Date Shirin HENDERSONC Cosigner Signature: Date (if applicable) CC:? Dr. Rolf Reyes MD ~
[2022-03-21 11:31] LABS: INR Fingerstick 1.9; Prothrombin Time Fingerstick 22.2 SEC (11.7-14.9)
== END | disposition home or self-care (01) ==
LOC: CLSP 10:51
PROVIDERS: Nurse Practitioner Gerontology; PCP Family Medicine; Referring Provider Internal Medicine Cardiovascular Disease; Visit Provider Internal Medicine Cardiovascular Disease
DX: I25.10 Atherosclerotic heart disease of native coronary artery without angina pectoris (principal); I48.0 Paroxysmal atrial fibrillation; I10 Essential (primary) hypertension; I47.29 Other ventricular tachycardia; I34.0 Nonrheumatic mitral (valve) insufficiency; I25.2 Old myocardial infarction; E78.00 Pure hypercholesterolemia, unspecified; E03.9 Hypothyroidism, unspecified; R06.02 Shortness of breath; Z95.1 Presence of aortocoronary bypass graft; Z95.5 Presence of coronary angioplasty implant and graft; Z79.01 Long term (current) use of anticoagulants; Z79.899 Other long term (current) drug therapy; Z86.711 Personal history of pulmonary embolism; Z86.718 Personal history of other venous thrombosis and embolism; Z87.891 Personal history of nicotine dependence; Z53.8 Procedure and treatment not carried out for other reasons
CPT/HCPCS: 36415; 36416; 80048; 83880; 84439; 84443; 85025; 85610

== ENCOUNTER → 2022-03-28 | Outpatient (CLI) | payer MEDICARE, OTHER, SELFPAY ==
[2022-03-28 10:06] LABS: INR Fingerstick 1.8; Prothrombin Time Fingerstick 21.9 SEC (11.7-14.9)
== END | disposition home or self-care (01) ==
LOC: LAB 09:52
PROVIDERS: PCP Family Medicine; Referring Provider Internal Medicine Cardiovascular Disease; Visit Provider Internal Medicine Cardiovascular Disease
DX: I48.0 Paroxysmal atrial fibrillation (principal); Z79.01 Long term (current) use of anticoagulants; Z86.718 Personal history of other venous thrombosis and embolism
CPT/HCPCS: 36416; 85610

== ENCOUNTER → 2022-04-04 | Outpatient (CLI) | payer MEDICARE, OTHER, SELFPAY ==
[2022-04-04 10:06] LABS: INR Fingerstick 2.4
== END | disposition home or self-care (01) ==
LOC: LAB 10:00
PROVIDERS: PCP Family Medicine; Visit Provider Internal Medicine Cardiovascular Disease
DX: I48.0 Paroxysmal atrial fibrillation (principal); Z86.718 Personal history of other venous thrombosis and embolism; Z79.01 Long term (current) use of anticoagulants
CPT/HCPCS: 36416; 85610

== ENCOUNTER 2022-04-25 09:05 | Outpatient (RCR) | payer MEDICARE, OTHER, SELFPAY ==
[2022-04-11 09:51] LABS: INR Fingerstick 2.5; Prothrombin Time Fingerstick 28.5 SEC (11.7-14.9)
[2022-04-18 09:30] LABS: INR Fingerstick 2.1; Prothrombin Time Fingerstick 24.6 SEC (11.7-14.9)
[2022-04-25 12:14] LABS: INR Fingerstick 1.7; Prothrombin Time Fingerstick 20.6 SEC (11.7-14.9)
== END 2022-04-26 18:00 | disposition home or self-care (01) ==
LOC: LAB 09:05
PROVIDERS: PCP Family Medicine; Referring Provider Internal Medicine Cardiovascular Disease; Visit Provider Internal Medicine Cardiovascular Disease
DX: I48.0 Paroxysmal atrial fibrillation (principal); Z86.718 Personal history of other venous thrombosis and embolism; Z79.01 Long term (current) use of anticoagulants
CPT/HCPCS: 36416; 85610

== ENCOUNTER 2022-05-15 14:53 | Outpatient (RCR) | payer MEDICARE, OTHER, SELFPAY ==
[2022-05-01 09:20] LABS: INR Fingerstick 2.5; Prothrombin Time Fingerstick 29.2 SEC (11.7-14.9)
[2022-05-15 15:00] LABS: INR Fingerstick 2.6; Prothrombin Time Fingerstick 29.9 SEC (11.7-14.9)
== END 2022-05-15 18:00 | disposition home or self-care (01) ==
LOC: LAB 14:53
PROVIDERS: PCP Family Medicine; Referring Provider Internal Medicine Cardiovascular Disease; Visit Provider Internal Medicine Cardiovascular Disease
DX: I48.0 Paroxysmal atrial fibrillation (principal); Z79.01 Long term (current) use of anticoagulants; Z86.718 Personal history of other venous thrombosis and embolism
CPT/HCPCS: 36416; 85610

== ENCOUNTER → 2022-06-13 | Outpatient (CLI) | payer MEDICARE, OTHER, SELFPAY ==
[2022-06-13 15:12] LABS: Absolute Lymphocyte Count 2.25 X10^3/uL (0.83-4.51); Absolute Neutrophil Count 5.5 X10^3/uL (2.0-7.7); Basophil# 0.03 X10^3/uL; Basophil% 0.4 % (0-1); Eosinophil# 0.07 X10^3/uL; Eosinophils% 0.8 % (0-5); Hemoglobin 12.8 g/dL (12.0-15.0); Lymphocyte # 2.25 X10^3/ul (0.83-4.51); Lymphocyte % 26.5 % (19-41); Mean Corp Hgb Conc 30.5 g/dL (32-36); Mean Corpuscular Hgb 27.2 pg (27.0-32.0); Mean Corpuscular Volume 89.2 fL (81-99); Mean Platelet Vol. 11.2 fl (6.2-12.0); Monocyte# 0.63 X10^3/uL; Monocyte% 7.4 % (0-10); NRBC Flagged by Analyzer 0 % (0-5); Neutrophil # 5.48 X10^3/uL (2.7-7.7); Neutrophil % 64.5 % (47-70); Platelet Count 297 K/mm3 (150-450); RBC Distribution Width CV 12.7 % (11.6-14.6); RBC Distribution Width SD 41.3 fl (35.1-43.9); Red Blood Count 4.71 M/mm3 (4.2-5.4); White Blood Count 8.5 K/mm3 (4.4-11.0)
[2022-06-13 15:52] LABS: Anion Gap 9 (5-15); BUN 24 mg/dL (7-18); BUN/Creat Ratio 19.5 RATIO (10-20); Calcium,Total 9.6 mg/dL (8.5-10.1); Chloride 102 mmol/L (98-107); Creatinine, Serum 1.23 mg/dL (0.55-1.02); EST Glomerular Filtration Rate 45 mL/min (>60); Est Glom Filt Rate - Afr Amer 54 mL/min (>60); Glucose 119 mg/dL (74-106); Potassium 3.7 mmol/L (3.5-5.1); Sodium Level 142 mmol/L (136-145)
[2022-06-13 15:54] LABS: BNP,B-Type NATRIURETIC PEPTIDE 253.9 pg/mL (0-100)
== END | disposition home or self-care (01) ==
LOC: LAB 14:32
PROVIDERS: PCP Family Medicine; Visit Provider Nurse Practitioner Gerontology
DX: R06.00 Dyspnea, unspecified (principal)
CPT/HCPCS: 36415; 80048; 83880; 85025

== ENCOUNTER → 2022-06-20 | Outpatient (CLI) | payer MEDICARE, OTHER, SELFPAY ==
[2022-06-20 11:24] LABS: Anion Gap 8 (5-15); BUN 27 mg/dL (7-18); BUN/Creat Ratio 21.8 RATIO (10-20); Calcium,Total 9.9 mg/dL (8.5-10.1); Chloride 100 mmol/L (98-107); Creatinine, Serum 1.24 mg/dL (0.55-1.02); EST Glomerular Filtration Rate 44 mL/min (>60); Est Glom Filt Rate - Afr Amer 53 mL/min (>60); Glucose 127 mg/dL (74-106); Potassium 3.6 mmol/L (3.5-5.1); Sodium Level 140 mmol/L (136-145)
== END | disposition home or self-care (01) ==
LOC: LAB 10:19
PROVIDERS: PCP Family Medicine; Visit Provider Nurse Practitioner Gerontology
DX: I10 Essential (primary) hypertension (principal); R06.00 Dyspnea, unspecified
CPT/HCPCS: 36415; 80048

== ENCOUNTER → 2022-07-03 | Outpatient (CLI) | payer MEDICARE, OTHER, SELFPAY ==
[2022-07-03 16:35] LABS: Absolute Lymphocyte Count 2.18 X10^3/uL (0.83-4.51); Absolute Neutrophil Count 6.5 X10^3/uL (2.0-7.7); Basophil# 0.04 X10^3/uL; Basophil% 0.4 % (0-1); Eosinophil# 0.06 X10^3/uL; Eosinophils% 0.6 % (0-5); Hematocrit 42.2 % (37-47); Hemoglobin 13.2 g/dL (12.0-15.0); Lymphocyte # 2.18 X10^3/ul (0.83-4.51); Lymphocyte % 22.4 % (19-41); Mean Corp Hgb Conc 31.3 g/dL (32-36); Mean Corpuscular Hgb 27.3 pg (27.0-32.0); Mean Corpuscular Volume 87.2 fL (81-99); Mean Platelet Vol. 11.6 fl (6.2-12.0); Monocyte# 0.96 X10^3/uL; Monocyte% 9.8 % (0-10); NRBC Flagged by Analyzer 0 % (0-5); Neutrophil # 6.49 X10^3/uL (2.7-7.7); Neutrophil % 66.6 % (47-70); Platelet Count 250 K/mm3 (150-450); RBC Distribution Width CV 12.8 % (11.6-14.6); RBC Distribution Width SD 40.5 fl (35.1-43.9); Red Blood Count 4.84 M/mm3 (4.2-5.4); White Blood Count 9.8 K/mm3 (4.4-11.0)
[2022-07-03 17:18] LABS: ALB/GLOB Ratio 1.2 RATIO (0.9-2.4); AST(SGOT) 16 U/L (15-37); Alanine Aminotransfer ALT/SGPT 17 U/L (13-56); Albumin, Serum 3.6 g/dL (3.2-5.0); Alkaline Phosphatase 52 U/L (45-117); Anion Gap 8 (5-15); BUN 26 mg/dL (7-18); BUN/Creat Ratio 18.1 RATIO (10-20); Calcium,Total 9.9 mg/dL (8.5-10.1); Chloride 105 mmol/L (98-107); Creatinine, Serum 1.44 mg/dL (0.55-1.02); EST Glomerular Filtration Rate 37 mL/min (>60); Est Glom Filt Rate - Afr Amer 45 mL/min (>60); Globulin 3.1 g/dL (2.2-4.2); Glucose 99 mg/dL (74-106); Potassium 4.3 mmol/L (3.5-5.1); Protein, Total 6.7 g/dL (6.4-8.2); Sodium Level 143 mmol/L (136-145)
== END | disposition home or self-care (01) ==
LOC: LAB 15:05
PROVIDERS: PCP Family Medicine; Visit Provider Internal Medicine Hematology & Oncology
DX: Z85.43 Personal history of malignant neoplasm of ovary (principal)
CPT/HCPCS: 36415; 80053; 85025

== ENCOUNTER 2022-07-11 10:25 | Day surgery (SDC) | payer MEDICARE, OTHER, SELFPAY ==
[2022-07-10 10:10] VITALS: BMI 36.2
--- NOTE | 2022-07-10 16:55 | PCM.HP.BLA ---
History and Physical Date of Admission: 07/11/22 [facility] [address] [place], [place] [id number] OFFICE VISIT Date of Service:? 06/13/22 MR#: [id number] Acct: [id number] Name:SANDRINE SCHULZ Rep #: [id number] : 1940 Provider: ?RAMSES Hurtado Age/Sex:? 81/F ?Location: [facility] Status: Signed HPI HPI History of Present Illness Surgical H&P: Yes Details: This is an 81-year-old white female who presents today for outpatient cardiovascular follow-up visit. She has a history of underlying CAD, CABG (1999 with a PATINO to the LAD and an SVG to the diagonal branch), PTCA/stent to the LAD (2015 2007), paroxysmal atrial fibrillation, hyperlipidemia, and hypertension. Her most recent Holter monitor demonstrated atrial fibrillation 99.9% of the time. Her stress test from 11/02/2021 was negative, and her Echocardiogram from 11/02/2021 demonstrated an ejection fraction of 55%, and moderately enlarged left atrium, and mildly enlarged right atrium. From a cardiac standpoint, the patient is doing well. She does have an occasional palpitation-she describes this as a pounding sensation. She does have an occasional chest pain. She describes this as a brief stabbing pain. This is located midsternal. She does have SOB with exertion and occasional at rest. She denies Orthopnea, and PND. She does not have bleeding issues; no blood in urine, stool or nosebleeds. She does acknowledge fatigue. She denies myalgias, or claudication.? She does not have edema, or sudden weight gain. She does have an occasional dizziness/lightheadedness with positional changes. She denies syncopal or near syncopal episodes, and headaches. She has not missed any doses of Eliquis over the last month. Intake Vital Signs ? 06/13/2312:47 06/13/2313:05 Height 5 ft 4 in 5 ft 4 in Weight: ? 211 lb BMI ? 36.2 BP ? 122/72 H Blood Pressure Location ? Lt brachial Position ? Sitting Respiration ? 18 Pulse ? 81 Pulse Source ? Monitor Pulse Oximetry (%) ? 98 Oxygen Delivery Method ? room air Intake Visit Reasons:?1 MO (UPDATE H&P) Allergies poison niya extract Allergy (Verified 06/13/22 14:10) Itchingpoison oak extract Allergy (Verified 06/13/22 14:10) Itchingstreptokinase [Streptokinase] Adverse Reaction (Severe, Verified 06/13/22 14:10) Hives Medications cholecalciferol (vitamin D3) 1,250 mcg (50,000 unit) capsule 50,000 unit PO QWEEK supplement 08/26/18 [History Confirmed 06/13/22] nitroglycerin 0.4 mg sublingual tablet 0.4 mg sublingual Q5M PRN Chest Pain #25 tabs 03/31/19 [Rx Confirmed 06/13/22] trospium 60 mg capsule,extended release 24 hr 60 mg PO DAILY overactive bladder 07/07/19 [History Confirmed 06/13/22] rosuvastatin 40 mg tablet 40 mg PO QHS cholesterol 07/14/19 [History Confirmed 06/13/22] hydrochlorothiazide 12.5 mg capsule 12.5 mg PO DAILY bp #30 caps 03/19/20 [Rx Confirmed 06/13/22] mirabegron 50 mg tablet,extended release 24 hr 50 mg PO DAILY 10/04/21 [History Confirmed 06/13/22] furosemide 40 mg tablet (Lasix) 40 mg PO DAILY #30 tabs 10/11/21 [Rx Confirmed 06/13/22] lansoprazole 30 mg capsule,delayed release 30 mg PO DAILY 02/03/22 [History Confirmed 06/13/22] niacin 500 mg tablet,extended release 24 hr 500 mg PO BID 02/09/22 [History Confirmed 06/13/22] atenolol 50 mg tablet 50 mg PO BID Heart/BP #180 tabs 03/13/22 [Rx Confirmed 06/13/22] ramipril 10 mg capsule 10 mg PO DAILY Check with primary doctor 03/13/22 [History Confirmed 06/13/22] potassium chloride 20 mEq tablet,extended release 20 meq PO DAILY #30 tabs 05/11/22 [Rx Confirmed 06/13/22] apixaban 5 mg tablet (Eliquis) 5 mg PO BID #60 tabs 05/15/22 [Rx Confirmed 01/17/23] levothyroxine 137 mcg tablet 137 mcg PO DAILY 05/15/22 [History Confirmed 06/13/22] PFSH Medical History?(Reviewed 06/13/22 @ 13:46 by Shirin Hurtado CURRENCY EXCHANGE SPECIALIST, CURRENCY EXCHANGE SPECIALIST-C) Abnormal dobutamine stress echocardiogram Atherosclerotic heart disease of [place] coronary artery without angina pectoris Chest pain Chest pain due to CAD DVT (deep venous thrombosis) Dyspnea on exertion Essential hypertension GERD (gastroesophageal reflux disease) History of acute myocardial infarction of anterolateral wall (02/2000) History of DVT (deep vein thrombosis) History of pulmonary embolism Hypothyroid ivc filter retreval Left-sided pyelonephritis Other mcc (current) drug therapy Ovarian cancer Ovarian cancer Overactive bladder Paroxysmal atrial fibrillation Pericardial effusion Pulmonary emboli Pure hypercholesterolemia Small bowel obstruction Stress incontinence UTI (urinary tract infection) Wide-complex tachycardia Surgical History? H/O coronary artery bypass surgery (~02/2000) History of back surgery History of hysterectomy History of thyroidectomy Hx of appendectomy Stented coronary artery (10/18/07) Family History? Brother Hypertension CancerMother CVA (cerebral vascular accident) Hypertension Social History? Smoking Status:? Former smoker how long ago did patient quit smoking:? 19 years ago alcohol intake:? current alcohol intake frequency: holidays/special occasions only Alcohol type: wine substance use type:? does not use caffeine:? No what type of physical activity do you participate in:? none seatbelt use:? always ROS Const Const: Positive for fatigue; Negative for weakness, fever(s), headache(s), chills, frequent falls, weight gain or weight loss Eyes Eyes: Negative for blind spots, loss of peripheral vision, transient loss of vision, blurry vision, change in vision, double vision, floaters or tunnel vision ENT ENT: Positive for dizziness (occasional with positional changes); Negative for headache(s), Nosebleed/epistaxis, balance problems or neck pain Cardio Chest Pain: Yes Frequency: other (occasional) Character: sharp (stabbing) Onset: at rest and exercise Location: mid sternal Duration: brief Palpitations: Yes (occasional ) feels like its: pounding (and brief chest pain) Edema: None Muscle aches with walking: None Resp Respiratory: Positive for SOB with activity and SOB at rest; Negative for SOB orthopnea\SOB lying down GI GI: Negative nausea, vomiting, heartburn, bloating, vomiting blood/hematemesis, bright, red blood in stools or black,tarry stools Musc Musc: Negative for muscle aches/ myalgia, muscle weakness, joint pain or balance problems Neuro Neuro: Positive for dizziness (occasional with positional changes) and lightheadedness; Negative for near syncope, syncope, orthostatic symptoms, frequent falls, headache(s), weakness, blurry vision or double vision [place] Hematologic/Lymphatic: Negative for easy bleeding or easy bruising Endo Endo: Positive for fatigue Cardiology Exam Const Appearance: cooperative and no acute distress Nutritional Appearance: obese Orientation: alert and oriented x3 Head Head: normal to inspection Ears: hearing grossly normal bilaterally Nose: external nose normal Face and Sinus: face symmetric Eyes General: appearance normal, both eyes and all related structures Eyelids: eyelids normal Conjunctivae: conjunctivae normal Pupils: PERRL and pupil size EOM: EOM intact bilaterally Neck Neck: normal visual inspection Carotids: Negative bruit Chest Chest inspection: normal inspection of the chest and normal respiratory effort Auscultation: Bilateral: Clear to Auscultation Cardio Palpation: normal PMI Rate: regular rate Rhythm: irregularly irregular Heart sounds: S1 normal and S2 normal; Negative rub, gallop or murmur GI GI: normal to inspection and obese Neuro General: patient alert, patient oriented x3 and CN's II-XI intact bilaterally Skin Skin: no rashes or lesions noted Extremities Pulses: Normal: Right Posterior Tibial Pulse, Left Posterior Tibial Pulse, Right Radial Pulse and Left Radial Pulse Lower Extremity Edema: None: Bilateral Psych Psychological: normal affect Supplemental Info Supplemental Information Echocardiogram 11/02/2021: The study was technically difficult. Contrast injection was performed. ? Based upon the 2D echocardiographic and contrast enhanced images obtained there appears to be grossly normal left ventricular size, wall motion, and systolic function. The estimated ejection fraction is 55 %. Mild concentric left ventricular hypertrophy. The left atrium is moderately enlarged. The right atrium is mildly enlarged. There is mild to moderate mitral annular calcification. Extension of the mitral annular calcification onto the base of the posterior mitral valve leaflet. Mild (1+) mitral valve insufficiency. Mild tricuspid valve insufficiency. Mild diffuse aortic valve thickening. Mild focal aortic valve calcification. Trivial aortic valve insufficiency. Calcified aortic root. Right ventricular systolic pressure estimated to be 27 mmHg. Unable to assess diastolic dysfunction. ? Stress test 11/02/2021: Interpretation: Rest and stress SPECT Cardiolite nuclear imaging status post realignment, normalization, and attenuation correction demonstrate the appearance of body motion during image acquisition and otherwise the appearance of relative uniform tracer uptake and myocardial perfusion appearing within normal limits.? There is end systolic thickening and brightening.? The gated Cardiolite study demonstrates myocardial thickening and inward wall motion.? The reported LVEF is 63%. Impression: 1.? Rest and stress SPECT Cardiolite nuclear imaging demonstrate relative uniform tracer uptake and myocardial perfusion appearing within normal limits. 2.? The gated Cardiolite study reports an LVEF of 63%. Stress Test Report: Date: 03/22/2017 Procedure: Hologic stress nuclear imaging study Indications: Atrial fibrillation; CAD; status post PCI; status post CABG; preoperative cardiovascular evaluation Sent: Per the patient Procedure: The patient underwent pharmacologic (Regadenoson) evaluation with a peak heart rate of 60 bpm (41% predicted maximal heart rate) with a peak blood pressure 128/80 mmHg. The baseline ECG demonstrated sinus bradycardia with nonspecific ST and T-wave abnormality.? The peak pharmacologic ECG demonstrated no obvious ECG changes. There were no obvious cardiac dysrhythmias pretest, during pharmacologic infusion, or recovery. There was no report of chest discomfort during pharmacologic infusion or recovery. The examination was discontinued secondary to completion of protocol. Impression: 1.? Pharmacologic (Regadenoson) UA núñez 2.? Peak pharmacologic ECG with continued nonspecific ST and T-wave abnormality 3.? Nuclear images pending Myocardial perfusion imaging study: Technique: The patient was injected with 14.9 mCi of technetium 99m Cardiolite and subsequently rest SPECT Cardiolite nuclear imaging was obtained in the horizontal long, vertical long, and short axis views. The patient underwent pharmacologic (Regadenoson) evaluation with a peak heart rate of 60 bpm (41% predicted maximal heart rate) with a peak blood pressure 128/80 mmHg and the patient was injected with 45.0 mCi of technetium 99m Cardiolite and subsequently stress SPECT cardio light nuclear imaging was obtained in the horizontal long, vertical long, and short axis views.? He did Cardiolite study at peak stress was obtained. Interpretation: Rest and stress SPECT cardiac nuclear imaging that is post realignment, normalization, and attenuation correction, demonstrate the appearance of relative uniform tracer uptake and myocardial perfusion appearing within normal limits.? There is end systolic thickening and brightening.? The gated Cardiolite study demonstrates myocardial thickening and inward wall motion.? The reported LVEF is 67%. Impression: 1.? Rest and stress SPECT Cardiolite nuclear imaging demonstrate relative uniform tracer uptake and myocardial perfusion appearing within normal limits. 2.? The gated Cardiolite study reports an LVEF of 67%. Stress Echo: 01/03/2019 Reason For Study: CHEST PAIN Stress Results ? Protocol:? Dobutamine with definity? Maximum Predicted HR: ? 142 bpm ? Target HR: 121 bpm ? % Maximum Predicted HR: 122 % ? DurationHeart Rate ? ? ? Stage? (mm:ss) ? (bpm) ? ? BP? Dose? Comment ?? ? BASELINE? 51? ? 170/74 ? ? 2.5 CC DEFINITY ?? ? STAGE 1 ? 3:56? ? ? 51? ? 155/7310.000.5CC DEFINITY ?? ? STAGE 2 ? 3:00? ? ? 75? ? 127/6620.00 ?? ? STAGE 3 ? 3:00 ? ? 107? ? 167/5530.00 ?? ? STAGE 4 ? 3:00 ? ? 173? ? ? / ? 40.00AFIB/FLUTTER, NO CHEST PAIN, BUT FEELS HEART THUMPING ?? ? RECOVERY? 75? ? 127/82 ? ? 2 CC DEFINITY ? Stress Duration: ? 12:56 mm:ss ? Maximum Stress HR: 173 bpm Baseline Echocardiogram Findings The estimated ejection fraction is 65 %. ? Stress Echo Wall motion Data ? Resting WM ? Intermediate WM ? Stress WM ? Resting Wall Motion? Wall Motion Stress No regional wall motion? No regional wall motion abnormalities noted. ? abnormalities noted. EKG Data The baseline ECG displays normal sinus rhythm. The patient was titrated from 10 mcg to a maximum of 40 mcg of dobutamine during the stress. The maximum heart rate attained was 179 beats per minute. This was 126% of maximum predicted heart rate. During dobutamine infusion, there were no ST or T wave changes noted to suggest ischemia. No clinical angina was noted. Interpretation Summary The estimated ejection fraction is 65 %. Normal, adequate, dobutamine echocardiogram. Negative for ischemia by EKG and echocardiographic criteria. No anginal symptoms noted. Patient converted from normal sinus rhythm to atrial fibrillation during dobutamine infusion. Despite IV Lopressor post procedure, she remained in atrial fibrillation. Rare PVCs noted. Appropriate blood pressure response to dobutamine. Decreased sensitivity due to poor echo windows requiring Definity agent. Final LVEF is 75%. No complications. Will recommend DC cardioversion if patient does not spontaneously convert on the floor after 2 hours. Patient compliant with Coumadin, INR is 2.4 today. The study was technically difficult. Contrast injection was performed. Cardiac cath: DATE OF PROCEDURE: November 10, 2015. HISTORY OF PRESENT ILLNESS: The patient is a very pleasant 75-year-old non-diabetic female with a history of hypertension, hypercholesterolemia, coronary artery disease, status post 2-vessel bypass surgery in 1999.? At that time, she received a PATINO to the LAD and a saphenous vein graft to the diagonal.? She also had stenting to her LAD x2 in February 2006 and then again in September of 2007 for a failed PATINO to the LAD.? The last catheterization was in 2011, which demonstrated an atretic PATINO, and a widely patent saphenous vein graft to the diagonal. At that time, her LAD stents were widely patent. The patient underwent a stress echocardiogram for chest discomfort and shortness of breath.? During this time, she developed wide complex tachycardia and was referred for left heart catheterization to evaluate her stents and [place] coronaries. The risks and benefits of the procedure were thoroughly explained to the patient and informed consent was obtained.? The patient was brought to the rn lab in the fasting state.? She was prepped and draped in usual sterile fashion.? Under fluoroscopic guidance, the right femoral artery was anesthetized with 1% lidocaine followed by access with a single anterior stick of a Cook needle, followed by placement of an exchange length J-wire.? Next, a 4-[place] sheath was placed without complications and flushed with heparinized saline.? Next, a 4-[place] JL5 catheter was easily engaged into the left main coronary artery.? There was no dampening or ventricularization upon engagement. LEFT MAIN: The left main is a very large vessel and bifurcates into an LAD and left circumflex artery.? There are no significant lesions seen in the left main. LEFT ANTERIOR DESCENDING: The LAD is a large vessel with several visible stents seen in its proximal mid portion. All the stents are widely patent and have no significant in-stent restenosis.? The remainder of the LAD is somewhat tortuous and wraps around the apex of the heart.? There are no other significant lesions seen in the LAD system. LEFT CIRCUMFLEX: The left circumflex is a nondominant vessel, which consists of a large AV circumflex and terminates into 2 moderately sized obtuse marginal branches.? Obtuse marginal #1 is a large vessel, which is free of significant disease. Obtuse marginal #2 is a moderate-sized vessel, which is also free of significant disease. Her [place] AV circumflex is also free of significant disease. The JL5 catheter was exchanged over a wire for a 4-[place] 3DRC catheter.? This was easily engaged into the right coronary artery.? There was no dampening or ventricularization upon engagement. RIGHT CORONARY ARTERY: The RCA is a large and dominant vessel, which terminates into a PDA.? It is fairly tortuous.? It is angiographically normal and has no significant lesions that require intervention at this time. Next, the 3DRC catheter was manipulated into the saphenous vein graft to the diagonal. There was no dampening or ventricularization upon engagement.? The SVG to the diagonal is a large vessel, which terminates into a very small diagonal branch.? There are no significant lesions seen in the saphenous vein graft.? The diagonal branch is fairly small, but has JUSTIN 3 flow through it.? There are no lesions, which require intervention at this time. Next, the 3DRC catheter was exchanged over a wire for a 4-[place] angled pigtail catheter. This was easily engaged into the left ventricular chamber.? 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 The overall ejection fraction was approximately 65%.? No significant mitral regurgitation noted.? No significant gradient seen. CONCLUSIONS: 1.? A widely patent LAD stent. 2.? Widely patent saphenous vein graft to diagonal. 3.? Previously noted atretic PATINO to the LAD. 4.? Angiographically normal left circumflex, obtuse marginals and right coronary artery. RECOMMENDATIONS: At this point, her wide complex tachycardia was most likely a product of her conduction abnormality and probably an aberrant finding during her dobutamine echocardiogram.? There are no significant lesions, which require intervention at this time.? Recommend continuing medical management in the form of aspirin, beta-blockers.? She will resume her Coumadin tomorrow evening once her groin has been deemed to be stable.? She will follow up with me in the office going forward. The sheath was removed in the rn lab and hemostasis obtained.? The patient tolerated the procedure well with no complications. Labs: ?? ? LDL Cholesterol 50 mg/dL (0-130) ?? ? HDL Cholesterol 56 mg/dL (40-) ?? ? Triglycerides 191 mg/dL (-199) ?? ? VLDL Cholesterol 38 mg/dL (5-40) Diagnostics: ?? ? Electrocardiogram ? Echocardiogram ? Stress Echocardiogram ? Stress Test NM ? Stress Test ? Cardiac Catheterization ? Chest X-Ray ? Pulmonary: ?? ? Pulmonary Function Test ? Assessment and Plan Assessment and Plan (1) Atherosclerotic heart disease of [place] coronary artery without angina pectoris: ?Status:?Chronic ?Qualifiers: ?[place] vs. transplanted heart:?[place] heart? Qualified Code(s):?I25.10 - Atherosclerotic heart disease of [place] coronary artery without angina pectoris ?Comment: S/P bypass surgery in 1999 with PATINO to LAD and SVG to diagonal; stenting x2 to LAD in February 2006 and September 2007; ?Plan: Patient has a history of coronary artery disease with bypass surgery in 1999, and stent placement in 2007 and 2015. Her most recent stress test from 11/02/2021 was negative for ischemia. This was reviewed with patient.? At this time, she will continue with her current medical therapy, along with aggressive risk factor and lifestyle modifications. She will continue to monitor for any concerning symptoms. (2) Paroxysmal atrial fibrillation: ?Status:?Chronic ?Plan: Patient has a history of paroxysmal atrial fibrillation. This is more persistent. Her echocardiogram from 10/2021 demonstrated an ejection fraction of 55%, moderately enlarged left atrium, and mildly enlarged right atrium.? Her most recent Holter monitor demonstrated atrial fibrillation 99.9%. She does have complaints of fatigue, dyspnea with exertion and at rest, and occasional chest pressure. Her EKG from today demonstrates atrial fibrillation?flutter, heart rate of 72 bpm. She has not missed any doses of Eliquis over the last 4 weeks. She will be scheduled for a cardioversion with Dr. Waite on 07/11/2022. Cardioversion instructions were given to patient, and she verbalized understanding. She will continue atenolol 50 mg twice daily, and Eliquis 5mg twice daily.? (3) Essential hypertension: ?Status:?Chronic ?Plan: Patient has a history of hypertension.? Her blood pressure is well controlled at this time. She will continue with her current medical therapy, along with monitoring her blood pressures at home. She will notify our office of any persistent high or low blood pressure readings.? (4) Pure hypercholesterolemia: ?Status:?Chronic ?Plan: Patient has a history of hypercholesterolemia. Her PCP monitors this.? She will continue with rosuvastatin 40 mg daily, along with aggressive risk factor and lifestyle modifications. (5) Dyspnea: ?Status:?Acute ?Plan: Patient has complaints of increased dyspnea with exertion and at rest-this is nothing new or worsening. I believe this is related to her atrial fibrillation. We will obtain lab work to assess for fluid overload. Depending on results, further recommendations will be made. At this time, she will continue Lasix 40mg daily, along with monitoring for any worsening symptoms. ? ? ? Orders: Orders 12 Lead EKG performed by [facility] Today I48.0 - Paroxysmal atrial fibrillation ? Cardioversion 07/11/22 I48.0 - Paroxysmal atrial fibrillation ? Basic Metabolic Profile (BMP) Today I48.0 - Paroxysmal atrial fibrillation ? CBC W/Diff, Automated Today R06.00 - Dyspnea, unspecified ? BNP,B-Type NATRIURETIC PEPTIDE Today R06.00 - Dyspnea, unspecified ? Plan Details Additional Comments: Patient will follow up in 6-8 weeks, or sooner if needed. Thank you for allowing me to participate in the care of your patient. Please don't hesitate to call if any issues arise. This note was generated using a voice recognition system and there may be incorrect words, spelling, or punctuation that were not noted when reviewing the office note prior to saving. Portions of this documentation were copied and pasted from previous office visit notes to provide a cohesive continuity of the history. The note has been reviewed, edited, and updated, as necessary. Follow Up: ? ? 6-8 weeks (CURRENCY EXCHANGE SPECIALIST/PA) ? ? 1 week post cardioversion EKG (07/18/2022) COVID (Procedure Consent) Procedure Criteria Procedure Criteria: Yes Elective The surgeon/proceduralist and patient have discussed in detail the risk of exposure to and/or potential harm posed by the COVID-19 virus with having a surgery/procedure at this time versus the risk of? delaying the surgery/procedure. It is not possible to know either the risk of delaying the surgery or procedure or chance of getting an infection with perfect accuracy, but a joint decision was made between the patient and the surgeon/proceduralist ?to proceed at this time with the scheduled surgery/procedure as indicated on the consent form. Coding Level of Care Code Off vis,est,level 4 Diagnoses Atherosclerotic heart disease of [place] coronary artery without angina pectoris? I25.10 ? ? ? [place] vs. transplanted heart: [place] heart Paroxysmal atrial fibrillation? I48.0 Essential hypertension? I10 Pure hypercholesterolemia? E78.00 Dyspnea? R06.00 Coding Level of Care Code Off vis,est,level 4 Diagnoses Atherosclerotic heart disease of [place] coronary artery without angina pectoris? I25.10 ? ? ? [place] vs. transplanted heart: [place] heart Paroxysmal atrial fibrillation? I48.0 Essential hypertension? I10 Pure hypercholesterolemia? E78.00 Dyspnea? R06.00 06/13/22 1438 <Electronically signed by Shirin Hurtado NP CURRENCY EXCHANGE SPECIALIST-C> Date Shirin Lazo Signature: Date (if applicable) CC:? Dr. Rolf Reyes MD ~ Assessment & Plan Addt'l Comments Addendum: 07-11-2022: I have examined the patient and the H&P has been reviewed. There are no clinical changes since date of exam. This note was generated using a voice recognition system and there may be incorrect words, spelling or punctuation that were not noted when reviewing the office note prior to saving.
--- NOTE | 2022-07-11 13:52 | CARDIOVERS ---
Cardioversion Cardioversion: Date: ?2022 Procedure: Synchronized Biphasic DC Cardioversion Indications: Atrial fibrillation Consent: Per the Patient Anesthesia: per Dr. Peña of pulmonology and critical care medicine with propofol 50 mg IV push total Procedure: Synchronized Biphasic DC Cardioversion: 200 J x 1: Result: Sinus rhythm/sinus bradycardia Complications: no apparent complications This note was generated with [employer] software. It may contain incorrect words, spelling, and punctuation that were not noted in checking the note before signing.
--- NOTE | 2022-07-11 15:05 | PCM.OP.PRO ---
Assessment & Plan Assessment/Plan (1) Paroxysmal atrial fibrillation: Procedure Report Date of Procedure: 07/11/22 CONSCIOUS SEDATION REPORT BRIEF HISTORY OF PRESENT ILLNESS: The patient is an 81-year-old female who presented to [facility] for an elective outpatient cardioversion due to underlying atrial fibrillation. The patient reports no PO intake since midnight, but is currently therapeutic on anticoagulation. The patient does not have a history of BECK or COPD. The patient reports no complication with previous cardioversion. The patient denies any recent constitutional symptoms such as fevers, chills, nausea or vomiting. The patient denies previous applicable anesthetic complications. Patient's last known ejection fraction was 55%. Patient did take Eliquis on the day of the procedure. Patient's previous cardioversion took 70 mg of propofol. PHYSICAL EXAMINATION: VITAL SIGNS: Reviewed and were acceptable. GENERAL: The patient is a female, in no apparent distress, speaking in full sentences. HEENT: Normocephalic, atraumatic. Mucous membranes are moist and pink. Good mouth opening noted. Trachea is midline. Good neck mobility. MP IV CHEST: S1, S2 irregularly irregular. No murmurs, rubs or gallops were noted. LUNGS: Clear to auscultation bilaterally without appreciable wheezes, rales or rhonchi. ABDOMEN: Soft, nontender, nondistended. Positive bowel sounds. EXTREMITIES: There is no clubbing, cyanosis or edema. ASA Class: II DESCRIPTION OF PROCEDURE: After confirmation of informed consent, the patient's anesthesia plan was reviewed in detail. Propofol was chosen. Risks and benefits were reviewed and the patient agreed to proceed. At 11:49 AM, the patient was given 40 mg of propofol. The patient required a total of 50 mg of propofol throughout the procedure to achieve appropriate sedation. The patient achieved an appropriate level of sedation and received 1 attempt synchronized cardioversion, at [address] Gant at the bedside. This was successful in achieving normal sinus rhythm. The patient was monitored until 12:05 PM, at which time the patient reached their baseline mental status and function. The patient tolerated the procedure well. COMPLICATIONS: None ESTIMATED BLOOD LOSS: None RECOMMENDATIONS: Okay to recover in usual fashion. Procedures Pulmonary 9xxxx: [id number] Con Sedation
== END 2022-07-11 13:05 | disposition home or self-care (01) ==
LOC: CLSP 10:28
PROVIDERS: PCP Family Medicine; Referring Provider Internal Medicine Cardiovascular Disease; Visit Provider Internal Medicine Cardiovascular Disease
DX: I48.0 Paroxysmal atrial fibrillation (principal); I10 Essential (primary) hypertension; I25.10 Atherosclerotic heart disease of native coronary artery without angina pectoris; E78.00 Pure hypercholesterolemia, unspecified; E66.9 Obesity, unspecified; K21.9 Gastro-esophageal reflux disease without esophagitis; Z86.718 Personal history of other venous thrombosis and embolism; Z86.711 Personal history of pulmonary embolism; Z95.1 Presence of aortocoronary bypass graft; Z95.5 Presence of coronary angioplasty implant and graft; Z79.899 Other long term (current) drug therapy; Z79.01 Long term (current) use of anticoagulants; Z87.891 Personal history of nicotine dependence
CPT/HCPCS: 92960; 93005; J7040

== ENCOUNTER → 2022-07-18 | Outpatient (CLI) | payer MEDICARE, OTHER, SELFPAY ==
[2022-07-18 11:15] LABS: Absolute Lymphocyte Count 2.05 X10^3/uL (0.83-4.51); Absolute Neutrophil Count 4.2 X10^3/uL (2.0-7.7); Basophil# 0.06 X10^3/uL; Basophil% 0.8 % (0-1); Eosinophil# 0.05 X10^3/uL; Eosinophils% 0.7 % (0-5); Hematocrit 42.2 % (37-47); Lymphocyte # 2.05 X10^3/ul (0.83-4.51); Lymphocyte % 28.5 % (19-41); Mean Corp Hgb Conc 30.8 g/dL (32-36); Mean Corpuscular Hgb 27.2 pg (27.0-32.0); Mean Corpuscular Volume 88.3 fL (81-99); Mean Platelet Vol. 11.5 fl (6.2-12.0); Monocyte# 0.78 X10^3/uL; Monocyte% 10.8 % (0-10); NRBC Flagged by Analyzer 0 % (0-5); Neutrophil # 4.22 X10^3/uL (2.7-7.7); Neutrophil % 58.8 % (47-70); Platelet Count 269 K/mm3 (150-450); RBC Distribution Width CV 12.8 % (11.6-14.6); RBC Distribution Width SD 41.8 fl (35.1-43.9); Red Blood Count 4.78 M/mm3 (4.2-5.4); White Blood Count 7.2 K/mm3 (4.4-11.0)
[2022-07-18 11:35] LABS: Anion Gap 5 (5-15); BUN 21 mg/dL (7-18); BUN/Creat Ratio 19.1 RATIO (10-20); Calcium,Total 9.7 mg/dL (8.5-10.1); Chloride 105 mmol/L (98-107); EST Glomerular Filtration Rate 51 mL/min (>60); Est Glom Filt Rate - Afr Amer 61 mL/min (>60); Glucose 89 mg/dL (74-106); Potassium 3.7 mmol/L (3.5-5.1); Sodium Level 140 mmol/L (136-145)
[2022-07-18 11:39] LABS: BNP,B-Type NATRIURETIC PEPTIDE 224.6 pg/mL (0-100)
== END | disposition home or self-care (01) ==
LOC: LAB 10:26
PROVIDERS: PCP Family Medicine; Visit Provider Nurse Practitioner Gerontology
DX: R06.00 Dyspnea, unspecified (principal)
CPT/HCPCS: 36415; 80048; 83880; 85025

== ENCOUNTER → 2022-07-25 | Outpatient (CLI) | payer MEDICARE, OTHER, SELFPAY ==
[2022-07-25 11:44] LABS: Anion Gap 6 (5-15); BUN 32 mg/dL (7-18); BUN/Creat Ratio 21.6 RATIO (10-20); Chloride 100 mmol/L (98-107); Creatinine, Serum 1.48 mg/dL (0.55-1.02); EST Glomerular Filtration Rate 36 mL/min (>60); Est Glom Filt Rate - Afr Amer 43 mL/min (>60); Glucose 126 mg/dL (74-106); Potassium 3.4 mmol/L (3.5-5.1); Sodium Level 138 mmol/L (136-145)
== END | disposition home or self-care (01) ==
LOC: LAB 11:09
PROVIDERS: PCP Family Medicine; Visit Provider Nurse Practitioner Gerontology
DX: R06.00 Dyspnea, unspecified (principal)
CPT/HCPCS: 36415; 80048

== ENCOUNTER → 2022-08-01 | Outpatient (CLI) | payer MEDICARE, OTHER, SELFPAY ==
[2022-08-01 12:01] LABS: Anion Gap 8 (5-15); BUN 27 mg/dL (7-18); BUN/Creat Ratio 25.5 RATIO (10-20); Calcium,Total 10.1 mg/dL (8.5-10.1); Chloride 101 mmol/L (98-107); Creatinine, Serum 1.06 mg/dL (0.55-1.02); EST Glomerular Filtration Rate 53 mL/min (>60); Est Glom Filt Rate - Afr Amer 64 mL/min (>60); Glucose 108 mg/dL (74-106); Potassium 3.6 mmol/L (3.5-5.1); Sodium Level 139 mmol/L (136-145)
== END | disposition home or self-care (01) ==
LOC: LAB 10:37
PROVIDERS: PCP Family Medicine; Referring Provider Nurse Practitioner Gerontology; Visit Provider Nurse Practitioner Gerontology
DX: R06.00 Dyspnea, unspecified (principal)
CPT/HCPCS: 36415; 80048

== ENCOUNTER → 2022-08-11 | Outpatient (CLI) | payer MEDICARE, OTHER, SELFPAY ==
[2022-08-11 11:17] LABS: Anion Gap 9 (5-15); BUN 24 mg/dL (7-18); BUN/Creat Ratio 19.8 RATIO (10-20); Calcium,Total 9.9 mg/dL (8.5-10.1); Chloride 102 mmol/L (98-107); Creatinine, Serum 1.21 mg/dL (0.55-1.02); EST Glomerular Filtration Rate 45 mL/min (>60); Est Glom Filt Rate - Afr Amer 55 mL/min (>60); Glucose 110 mg/dL (74-106); Potassium 3.4 mmol/L (3.5-5.1); Sodium Level 142 mmol/L (136-145)
[2022-08-11 11:29] LABS: BNP,B-Type NATRIURETIC PEPTIDE 265.2 pg/mL (0-100)
== END | disposition home or self-care (01) ==
LOC: LAB 10:45
PROVIDERS: PCP Family Medicine; Referring Provider Nurse Practitioner Gerontology; Visit Provider Nurse Practitioner Gerontology
DX: R06.00 Dyspnea, unspecified (principal); I10 Essential (primary) hypertension
CPT/HCPCS: 36415; 80048; 83880

== ENCOUNTER → 2023-02-02 | Outpatient (CLI) | payer MEDICARE, OTHER, SELFPAY ==
[2023-02-02 10:01] LABS: AST(SGOT) 16 U/L (15-37); Alanine Aminotransfer ALT/SGPT 18 U/L (13-56); Albumin, Serum 3.4 g/dL (3.2-5.0); Alkaline Phosphatase 48 U/L (45-117); Anion Gap 4 (5-15); BUN 23 mg/dL (7-18); BUN/Creat Ratio 18.1 RATIO (10-20); CPK Total, Creatine Kinase 111 U/L (26-192); Calcium,Total 9.7 mg/dL (8.5-10.1); Chloride 105 mmol/L (98-107); Cholesterol 126 mg/dL (200); Creatinine, Serum 1.27 mg/dL (0.55-1.02); EST Glomerular Filtration Rate 43 mL/min (>60); Est Glom Filt Rate - Afr Amer 52 mL/min (>60); Globulin 3.4 g/dL (2.2-4.2); Glucose 99 mg/dL (74-106); High Density Lipoprotein 51 mg/dL; Potassium 3.7 mmol/L (3.5-5.1); Protein, Total 6.8 g/dL (6.4-8.2); Sodium Level 139 mmol/L (136-145); Triglycerides 177 mg/dL; Very Low Density Lipoprotein 35 mg/dL (5-40)
== END | disposition home or self-care (01) ==
LOC: LAB 09:09
PROVIDERS: PCP Family Medicine; Referring Provider Internal Medicine Cardiovascular Disease; Visit Provider Internal Medicine Cardiovascular Disease
DX: E03.9 Hypothyroidism, unspecified (principal); I48.91 Unspecified atrial fibrillation; E78.5 Hyperlipidemia, unspecified; I10 Essential (primary) hypertension; I25.10 Atherosclerotic heart disease of native coronary artery without angina pectoris; R06.00 Dyspnea, unspecified
CPT/HCPCS: 36415; 80053; 80061; 82550

== ENCOUNTER 2023-03-21 09:25 | Emergency (ER) | payer MEDICARE, OTHER, SELFPAY ==
[2023-03-21] VITALS (12 sets, daily range): BP systolic 99–123; BP diastolic 56–88; PULSE 60–77; RESP 16–22; TEMP 36.1; O2SAT 94–100; BMI 34.0
--- NOTE | 2023-03-21 09:47 | RAD_ITS ---
HISTORY: SOB. TECHNIQUE: XR Chest 1 View. COMPARISON: 02/03/2022. FINDINGS: CARDIOMEDIASTINAL BORDERS: Cardiac silhouette within normal limits in size. Mediastinal contour unremarkable with midline sternotomy and calcification of the aorta. LUNGS: Small calcified granulomas and mild linear bibasilar scarring again seen. PLEURA: No pleural effusion or pneumothorax seen. OSSEOUS STRUCTURES: Mild degenerative change. RAD/Chest 1 View (Portable) IMPRESSION: No acute cardiopulmonary process identified. Electronically Signed: Shell Rodriguez MD at 10:29 EDT ,
--- NOTE | 2023-03-21 09:49 | ED.VIS.DYS ---
HPI History of Present Illness Chief Complaint: Shortness of Breath Informant: patient and family Narrative Narrative: Patient presents with concern for being in atrial fibrillation again. Patient has a long history of intermittent A-fib. She has been cardioverted many times. But she states it never takes. She is on Eliquis. She is taking it as prescribed. She is also on atenolol for rate control. She states the last couple days she has noticed that she has decreased energy especially with activity. She gets a little short of breath with exertion. But sitting still she feels fine. She does not feel palpitations or chest pain or pressure. No fevers or chills. No coughing. She does not feel sick at all but she does have dyspnea on exertion which is her typical symptom of atrial fibrillation [facility] Medical History (Updated 03/21/23 @ 14:[address] Patrick Schneider MD) Anticoagulant long-term use Atherosclerotic heart disease of [place] coronary artery without angina pectoris Chest pain DVT (deep venous thrombosis) Dyspnea on exertion Essential hypertension Fatigue GERD (gastroesophageal reflux disease) History of acute myocardial infarction of anterolateral wall (02/2000) History of cardioversion History of DVT (deep vein thrombosis) Hypothyroid ivc filter retreval Left-sided pyelonephritis Other custodial (current) drug therapy Ovarian cancer Overactive bladder Paroxysmal atrial fibrillation Pericardial effusion Pulmonary emboli Pure hypercholesterolemia Small bowel obstruction Stress incontinence Wide-complex tachycardia Home Medications mirabegron 50 mg tablet,extended release 24 hr 50 mg PO DAILY 10/04/21 [History Last Taken Unknown] lansoprazole 30 mg capsule,delayed release 30 mg PO DAILY 02/03/22 [History Last Taken Unknown] aspirin 81 mg tablet,delayed release (Adult Low Dose Aspirin) 81 mg PO DAILY 08/11/22 [History Last Taken Unknown] niacin 500 mg tablet,extended release 24 hr 500 mg PO BID #180 tabs 01/19/23 [Rx Last Taken Unknown] cholecalciferol (vitamin D3) 1,250 mcg (50,000 unit) capsule 1,250 mcg PO QMONTH 02/01/23 [History Last Taken Unknown] levothyroxine 125 mcg tablet 125 mcg PO DAILY 02/01/23 [History Last Taken Unknown] oxybutynin chloride 10 mg tablet,extended release 24 hr 10 mg PO DAILY 02/01/23 [History Last Taken Unknown] sucralfate 1 gram tablet 1 g PO [facility] 02/01/23 [History Last Taken Unknown] apixaban 5 mg tablet (Eliquis) 5 mg PO BID #60 tabs 03/15/23 [Rx Last Taken Unknown] atenolol 50 mg tablet 50 mg PO BID Heart/BP #180 tabs 03/15/23 [Rx Last Taken Unknown] furosemide 40 mg tablet (Lasix) 40 mg PO DAILY PRN edema #90 tabs 03/15/23 [Rx Last Taken Unknown] hydrochlorothiazide 25 mg tablet 25 mg PO DAILY this is a dose increase #90 tabs 03/15/23 [Rx Last Taken Unknown] nitroglycerin 0.4 mg sublingual tablet 0.4 mg sublingual Q5M PRN Chest Pain #25 tabs 03/15/23 [Rx Last Taken Unknown] potassium chloride 20 mEq tablet,extended release 20 meq PO DAILY #90 tabs 03/15/23 [Rx Last Taken Unknown] ramipril 10 mg capsule 10 mg PO DAILY Check with primary doctor #90 caps 03/15/23 [Rx Last Taken Unknown] rosuvastatin 40 mg tablet 40 mg PO QHS cholesterol #90 tabs 03/15/23 [Rx Last Taken Unknown] Allergy/AdvReac Type Severity Reaction Status Date / Time poison niya extract Allergy Itching Verified 03/21/23 09:28 poison oak extract Allergy Itching Verified 03/21/23 09:28 streptokinase [Streptokinase] AdvReac Severe Hives Verified 03/21/23 09:28 Family History Brother Hypertension Cancer Mother CVA (cerebral vascular accident) Hypertension Surgical History H/O coronary artery bypass surgery (~02/2000) History of back surgery History of hysterectomy History of thyroidectomy Hx of appendectomy Stented coronary artery (10/18/07) Social History Smoking Status: Former smoker how long ago did patient quit smokin years ago alcohol intake: current alcohol intake frequency: holidays/special occasions only Alcohol type: wine substance use type: does not use caffeine: No what type of physical activity do you participate in: none seatbelt use: always ROS ROS ED ROS Narrative A complete review of systems was performed and is negative except as documented in the history of present illness. Some specific details below. Constitutional: No recent fevers or chills. Malaise. EYE: No discharge, visual complaints, or pain. ENT: No difficulty swallowing. No swelling. No pain. No reflux symptoms. CV: 3 of atrial fibrillation. But she has no chest pain. She does not actually have palpitations Respiratory: See history of present illness. Coughing. At rest she feels fine. GI: No abdominal pain. No nausea vomiting diarrhea. No blood in stool. : No frequency dysuria or hematuria. Musculoskeletal: No recent trauma. No pains. No swelling. Skin: No rash. Nondiaphoretic. Neuro: No focal weakness or numbness. Endocrine: No polyuria or polydipsia. EXAM Physical Exam Narrative Exam Narrative: CONSTITUTIONAL: Patient is nontoxic in appearance. The patient looks comfortable. Work of breathing looks normal. HEENT: No notable trauma. Mucous membranes moist. EYES: No conjunctival injection. No proptosis. No pallor NECK:No JVD. No stridor. CARDIOVASCULAR: Regular rate. Irregularly irregular rhythm. No notable murmur. No JVD. The monitor, she appears to be in atrial fibrillation with an overall rate at about 75?80. No ventricular ectopy is noted. RESPIRATORY: No respiratory distress. Breathing is unlabored. No wheezes. No rhonchi. No rales. No pain with a deep breath. No chest wall tenderness. Overall, her lungs sound very clear and normal. Saturations are normal at 99% on room air showing no hypoxia GASTROINTESTINAL: Not distended. Bowel sounds are normal. No tenderness. No guarding. No rebound. No palpable mass. No bruit is heard. GENITOURINARY: No tenderness over the bladder. No CVA tenderness. MUSCULOSKELETAL: Atraumatic. No peripheral edema. NEUROLOGICAL: Patient is alert and appropriate. No focal deficit noted. SKIN: No noted rashes. No diaphoresis. PSYCHIATRIC: Patient is calm. Mood is appropriate. Const Vital Signs: 03/21/23 09:26 03/21/23 09:38 03/21/23 09:38 Temperature 97.0 F L Temperature Source Temporal Pulse Rate 77 75 Pulse Rate [1 (Initial Baseline)] Pulse Rate [2] Respiratory Rate 18 20 H Respiratory Rate [1 (Initial Baseline)] Respiratory Rate [2] Respiratory Effort Short of Breath Labored Respiratory Depth Normal Respiratory Pattern Normal Blood Pressure 110/71 Blood Pressure [1 (Initial Baseline)] Blood Pressure [2] Blood Pressure Mean 84 Pulse Ox 99 95 Oxygen Delivery Method Room Air Room Air Room Air Oxygen Delivery Method [1 (Initial Baseline)] Oxygen Delivery Method [2] Oxygen Flow Rate (L/min) [2] 03/21/23 09:56 03/21/23 13:19 03/21/23 13:19 Temperature Temperature Source Pulse Rate 73 Pulse Rate [1 (Initial Baseline)] 73 Pulse Rate [2] 64 Respiratory Rate 22 H Respiratory Rate [1 (Initial Baseline)] 19 H Respiratory Rate [2] 20 H Respiratory Effort Respiratory Depth Respiratory Pattern Blood Pressure 123/70 H Blood Pressure [1 (Initial Baseline)] 117/88 H Blood Pressure [2] 120/65 Blood Pressure Mean Pulse Ox 95 98 Oxygen Delivery Method Room Air Nasal Cannula Oxygen Delivery Method [1 (Initial Baseline)] Nasal Cannula Oxygen Delivery Method [2] Nasal Cannula Oxygen Flow Rate (L/min) [2] 3 03/21/23 10:26 03/21/23 11:26 03/21/23 12:26 Temperature Temperature Source Pulse Rate 72 64 Pulse Rate [1 (Initial Baseline)] Pulse Rate [2] Respiratory Rate 18 Respiratory Rate [1 (Initial Baseline)] Respiratory Rate [2] Respiratory Effort Respiratory Depth Respiratory Pattern Blood Pressure Blood Pressure [1 (Initial Baseline)] Blood Pressure [2] Blood Pressure Mean Pulse Ox Oxygen Delivery Method Oxygen Delivery Method [1 (Initial Baseline)] Oxygen Delivery Method [2] Oxygen Flow Rate (L/min) [2] 03/21/23 13:26 03/21/23 13:35 03/21/23 13:40 Temperature Temperature Source Pulse Rate Pulse Rate [1 (Initial Baseline)] Pulse Rate [2] Respiratory Rate Respiratory Rate [1 (Initial Baseline)] Respiratory Rate [2] Respiratory Effort Respiratory Depth Respiratory Pattern Blood Pressure 120/65 Blood Pressure [1 (Initial Baseline)] Blood Pressure [2] Blood Pressure Mean 83 Pulse Ox Oxygen Delivery Method Room Air Room Air Oxygen Delivery Method [1 (Initial Baseline)] Oxygen Delivery Method [2] Oxygen Flow Rate (L/min) [2] MDM MDM MDM Narrative Medical decision making narrative: My independent interpretation of the patient's single view AP chest x-ray shows prior surgery but no acute process. Final reading is no acute cardiopulmonary process identified. Patient CBC is overall normal. Patient's electrolytes show some mildly low potassium at 3.4. BUN and creatinine are slightly up but not markedly above her baseline. She is given some IV fluids here. Her BUN to creatinine ratio was higher than normal consistent with some dehydration. His troponin is normal at 14. Patient is still in atrial fibrillation. She states she has been shocked multiple times. We discussed this as an option. She is not tachycardic but she is very symptomatic with her atrial fibrillation. She is on Eliquis and has been taking it regularly twice a day for over a year. We discussed risk benefits and options and proceeded to agree with the cardioversion as a plan. Last meal was last night. She has not ate or even drank coffee today. No history of allergies or complications with anesthesia or cardioversion. She has a Mallampati of 1?2. She does have dentures. See procedure note regarding cardioversion and procedural sedation. I discussed the case with Dr. Naik. He will follow-up with the patient. Lab Data Attestation: I reviewed the patient's lab results. Labs: Laboratory Results - last 24 hr 03/21/23 09:40 WBC 7.5 RBC 4.46 Hgb 12.3 Hct 39.2 MCV 87.9 MCH 27.6 MCHC 31.4 L RDW Std Deviation 40.0 RDW Coeff of Burke 12.5 Plt Count 269 MPV 11.0 Immature Gran % (Auto) 0.300 Neut % (Auto) 47.0 Lymph % (Auto) 42.2 H Ford % (Auto) 9.0 Eos % (Auto) 1.1 Baso % (Auto) 0.4 Absolute Neuts (auto) 3.5 Absolute Lymphs (auto) 3.16 Nucleated RBC % 0 Sodium 141 Potassium 3.4 L Chloride 107 Carbon Dioxide 26.0 Anion Gap 8 BUN 46 H Creatinine 1.44 H Estim Creat Clear Calc 26.01 Est GFR (MDRD) Af Amer 45 L Est GFR (MDRD) Non-Af 37 L BUN/Creatinine Ratio 31.9 H Glucose 115 H Calcium 10.2 H Troponin I High Sens 14 Radiography Diagnostic Testing: Clinical Impression(s) from Imaging Studies Chest X-Ray 03/21/23 09:47 IMPRESSION: No acute cardiopulmonary process identified. Electronically Signed: Shell Rodriguez MD at 10:29 EDT , EKG Initial EKG: Comments: My independent interpretation of the patient's EKG shows atrial fibrillation with controlled rate at 69. No ventricular ectopy. QRS duration and QTc are normal. Procedures Procedural Sedation 1 (Initial Baseline): Consent Signed: Yes Any Problems With Anesthesia: No You/Your family experience fever (hyperthermia) w/anesthesia: No Sedation medication: Propofol Dose: 50 Route: IV (50 mg propofol total IV.) Total Moderate Sedation Units: 7 Maliampati Score: Class II ASA Classification: II Comment:: Patient was sedated with 50 of Diprivan. We discussed risk benefits options. and daughter stayed in the room. She was cardioverted on synchronized cardioversion with 200 J a single time. She went back into normal sinus rhythm. She tolerated the procedure well. I stayed in the room until she was awake. Discharge Plan Triage Chief Complaint: Shortness of Breath ED Provider: Patrick Schneider Dx/Rx/DC Orders Clinical Impression: Dyspnea on exertion, Atrial fibrillation, Elevated serum creatinine, Dehydration, Encounter for cardioversion procedure Instructions: ED AFIB, ED Cardioversion, Electrical Prescriptions: No Action Myrbetriq 50 mg tablet extended release 24 hr 50 mg PO DAILY Patient Comments: TAKE 1 TABLET BY MOUTH EVERY DAY aspirin [Adult Low Dose Aspirin] 81 mg tablet,delayed release (DR/EC) 81 mg PO DAILY oxybutynin chloride 10 mg tablet extended release 24hr 10 mg PO DAILY Patient Comments: TAKE 1 TABLET BY MOUTH EVERY DAY sucralfate 1 gram tablet 1 g PO QACHS Patient Comments: TAKE 1 TABLET BY MOUTH BEFORE MEALS AND AT BEDTIME cholecalciferol (vitamin D3) 1,250 mcg (50,000 unit) capsule 1,250 mcg PO QMONTH levothyroxine 125 mcg tablet 125 mcg PO DAILY Patient Comments: TAKE 1 TABLET BY MOUTH ONCE DAILY. TAKE ON EMPTY STOMACH. FOR THYROID. lansoprazole 30 mg capsule,delayed release(DR/EC) 30 mg PO DAILY Patient Comments: TAKE 1 CAPSULE BY MOUTH DAILY BEFORE BREAKFAST. 1/2 HR BEFORE MEAL. niacin 500 mg tablet extended release 24 hr 500 mg PO BID Qty: 180 3RF Eliquis 5 mg tablet 5 mg PO BID Qty: 60 11RF atenolol 50 mg tablet 50 mg PO BID Qty: 180 3RF furosemide [Lasix] 40 mg tablet 40 mg PO DAILY PRN (Reason: edema) Qty: 90 3RF hydrochlorothiazide 25 mg tablet 25 mg PO DAILY Qty: 90 3RF potassium chloride 20 mEq tablet extended release 20 meq PO DAILY Qty: 90 3RF ramipril 10 mg capsule 10 mg PO DAILY Qty: 90 3RF rosuvastatin 40 mg tablet 40 mg PO QHS Qty: 90 3RF nitroglycerin 0.4 mg tablet, sublingual 0.4 mg SUBLINGUAL Q5M PRN (Reason: Chest Pain) Qty: 25 3RF Primary Care Provider: Rolf Reyes Referrals: Gorge Naik MD [Med Staff - Active Staff] - 3-5 Days Rolf Reyes MD [Primary Care Provider] - Disposition Disposition: Home, Self Care
[2023-03-21 10:05] LABS: Absolute Lymphocyte Count 3.16 X10^3/uL (0.83-4.51); Absolute Neutrophil Count 3.5 X10^3/uL (2.0-7.7); Basophil# 0.03 X10^3/uL; Basophil% 0.4 % (0-1); Eosinophil# 0.08 X10^3/uL; Eosinophils% 1.1 % (0-5); Hematocrit 39.2 % (37-47); Hemoglobin 12.3 g/dL (12.0-15.0); Lymphocyte # 3.16 X10^3/ul (0.83-4.51); Lymphocyte % 42.2 % (19-41); Mean Corp Hgb Conc 31.4 g/dL (32-36); Mean Corpuscular Hgb 27.6 pg (27.0-32.0); Mean Corpuscular Volume 87.9 fL (81-99); Monocyte# 0.67 X10^3/uL; NRBC Flagged by Analyzer 0 % (0-5); Neutrophil # 3.52 X10^3/uL (2.7-7.7); Platelet Count 269 K/mm3 (150-450); RBC Distribution Width CV 12.5 % (11.6-14.6); Red Blood Count 4.46 M/mm3 (4.2-5.4); White Blood Count 7.5 K/mm3 (4.4-11.0)
[2023-03-21] MEDS: 0.9% Normal Saline (500mL Bag) 500 ML 999 ML IV (10:12)
[2023-03-21 10:19] LABS: Anion Gap 8 (5-15); BUN 46 mg/dL (7-18); BUN/Creat Ratio 31.9 RATIO (10-20); Calcium,Total 10.2 mg/dL (8.5-10.1); Chloride 107 mmol/L (98-107); Creatinine, Serum 1.44 mg/dL (0.55-1.02); EST Glomerular Filtration Rate 37 mL/min (>60); Est Glom Filt Rate - Afr Amer 45 mL/min (>60); Estimated Creatinine Clearance 26.01 ml/min; Glucose 115 mg/dL (74-106); Potassium 3.4 mmol/L (3.5-5.1); Sodium Level 141 mmol/L (136-145); Troponin-I HS 14 pg/mL (3.0-54.0)
[2023-03-21] MEDS: Propofol 200 MG/20 ML Vial IV BOLUS (13:18)
== END 2023-03-21 14:34 | disposition home or self-care (01) ==
PROVIDERS: Emergency Provider Emergency Medicine; PCP Family Medicine; Visit Provider Emergency Medicine
DX: R06.09 Other forms of dyspnea (principal); I48.0 Paroxysmal atrial fibrillation; I25.10 Atherosclerotic heart disease of native coronary artery without angina pectoris; E86.0 Dehydration; Z79.01 Long term (current) use of anticoagulants; Z86.718 Personal history of other venous thrombosis and embolism; Z86.711 Personal history of pulmonary embolism; Z95.1 Presence of aortocoronary bypass graft; Z95.5 Presence of coronary angioplasty implant and graft; Z87.891 Personal history of nicotine dependence
CPT/HCPCS: 71045; 80048; 84484; 85025; 92960; 93005; 96360; 96361; 99284; J7030; J7040; A4216

== ENCOUNTER 2023-04-08 20:28 | Emergency (ER) | payer MEDICARE, OTHER, SELFPAY ==
--- NOTE | 2023-04-08 19:55 | RAD_ITS ---
STUDY: XR Chest 1 View 04/08/2023 8:59 PM REASON FOR EXAM: Female, 82 years old. chest pain COMPARISON: 03.21.23 TECHNIQUE: XR Chest 1 View FINDINGS: There is no demonstrated pleural abnormality. There are multiple median sternotomy wires. Normal heart size. Normal mediastinum. Normal bertha. Prominent appearing increased interstitial lung markings. Normal visualized pulmonary arteries. There is atherosclerotic calcification of the aortic arch with tortuosity. There are diffuse degenerative changes of the visualized thoracic spine. There is degenerative osteoarthritis of the bilateral shoulders. There are no acute findings of the upper abdomen. RAD/Chest 1 View (Portable) IMPRESSION: There are no acute findings. Electronically Signed: Vladimir Loza MD at 21:16 EST ,
[2023-04-08 20:29] VITALS: BP 129/52; PULSE 59; RESP 16; TEMP 36.6; O2SAT 97; BMI 34.3
[2023-04-08 20:47] VITALS: O2SAT 95
--- NOTE | 2023-04-08 20:47 | EKG12_ITS ---
Test Reason : CP Blood Pressure : / mmHG Vent. Rate : 059 BPM Atrial Rate : 059 BPM P-R Int : 174 ms QRS Dur : 090 ms QT Int : 404 ms P-R-T Axes : 041 010 088 degrees QTc Int : 399 ms Sinus bradycardia Minimal voltage criteria for LVH, may be normal variant ( R in aVL ) T wave abnormality, consider anterior ischemia Abnormal ECG Confirmed by MELISSA ESCALANTE, LAUREN ([id number]), online editor BERNY HUMPHREYS ([id number]) on 04/17/2023 2:13:26 PM Referred By: Confirmed By:LAUREN TORRES MD
[2023-04-08 21:11] LABS: Absolute Lymphocyte Count 2.72 X10^3/uL (0.83-4.51); Absolute Neutrophil Count 3.4 X10^3/uL (2.0-7.7); Basophil# 0.04 X10^3/uL; Basophil% 0.6 % (0-1); Eosinophils% 1.4 % (0-5); Hematocrit 38.2 % (37-47); Hemoglobin 11.9 g/dL (12.0-15.0); Lymphocyte # 2.72 X10^3/ul (0.83-4.51); Lymphocyte % 38.8 % (19-41); Mean Corp Hgb Conc 31.2 g/dL (32-36); Mean Corpuscular Volume 89.9 fL (81-99); Mean Platelet Vol. 10.7 fl (6.2-12.0); NRBC Flagged by Analyzer 0 % (0-5); Neutrophil # 3.43 X10^3/uL (2.7-7.7); Neutrophil % 48.9 % (47-70); Platelet Count 269 K/mm3 (150-450); RBC Distribution Width CV 12.3 % (11.6-14.6); RBC Distribution Width SD 40.6 fl (35.1-43.9); Red Blood Count 4.25 M/mm3 (4.2-5.4)
--- NOTE | 2023-04-08 21:28 | ED.VIS.CHEST ---
HPI History of Present Illness Chief Complaint: Chest Pain Informant: patient Onset/Context/Timing Onset: Today Narrative Narrative: Patient presents secondary to chest pain. She states she was puttering around the house today and had some intermittent chest pain but did not think much of it. About an hour and a half prior to arrival she got rather sharp significant pain in the lower sternal area. She states it started to ease up slightly but then worsened again. She asked her to get her nitro for her. After taking 1 sublingual nitro symptoms seem to improve. She did feel slightly short of breath at the time. She has a history of pulmonary embolism and is on Eliquis. She denies missing any doses. She also has a history of coronary disease with prior bypass surgery and cardiac stent. Patient does note that she has had increased gas and increased reflux today. [facility] Medical History (Updated 04/08/23 @ 23:[address] Marizol Frey MD) Anticoagulant long-term use Atherosclerotic heart disease of [place] coronary artery without angina pectoris Chest pain Dyspnea on exertion Essential hypertension Fatigue GERD (gastroesophageal reflux disease) History of acute myocardial infarction of anterolateral wall (02/2000) History of cardioversion History of DVT (deep vein thrombosis) Hypothyroid ivc filter retreval Left-sided pyelonephritis Other assisted (current) drug therapy Ovarian cancer Overactive bladder Paroxysmal atrial fibrillation Pericardial effusion Pulmonary emboli Pure hypercholesterolemia Small bowel obstruction Stress incontinence Wide-complex tachycardia Home Medications mirabegron 50 mg tablet,extended release 24 hr 50 mg PO DAILY 10/04/21 [History Last Taken Unknown] lansoprazole 30 mg capsule,delayed release 30 mg PO DAILY 02/03/22 [History Last Taken Unknown] aspirin 81 mg tablet,delayed release (Adult Low Dose Aspirin) 81 mg PO DAILY 08/11/22 [History Last Taken Unknown] niacin 500 mg tablet,extended release 24 hr 500 mg PO BID #180 tabs 01/19/23 [Rx Last Taken Unknown] cholecalciferol (vitamin D3) 1,250 mcg (50,000 unit) capsule 1,250 mcg PO QMONTH 02/01/23 [History Last Taken Unknown] levothyroxine 125 mcg tablet 125 mcg PO DAILY 02/01/23 [History Last Taken Unknown] oxybutynin chloride 10 mg tablet,extended release 24 hr 10 mg PO DAILY 02/01/23 [History Last Taken Unknown] sucralfate 1 gram tablet 1 g PO QACHS 02/01/23 [History Last Taken Unknown] apixaban 5 mg tablet (Eliquis) 5 mg PO BID #60 tabs 03/15/23 [Rx Last Taken Unknown] atenolol 50 mg tablet 50 mg PO BID Heart/BP #180 tabs 03/15/23 [Rx Last Taken Unknown] furosemide 40 mg tablet (Lasix) 40 mg PO DAILY PRN edema #90 tabs 03/15/23 [Rx Last Taken Unknown] hydrochlorothiazide 25 mg tablet 25 mg PO DAILY this is a dose increase #90 tabs 03/15/23 [Rx Last Taken Unknown] nitroglycerin 0.4 mg sublingual tablet 0.4 mg sublingual Q5M PRN Chest Pain #25 tabs 03/15/23 [Rx Last Taken Unknown] potassium chloride 20 mEq tablet,extended release 20 meq PO DAILY #90 tabs 03/15/23 [Rx Last Taken Unknown] ramipril 10 mg capsule 10 mg PO DAILY Check with primary doctor #90 caps 03/15/23 [Rx Last Taken Unknown] rosuvastatin 40 mg tablet 40 mg PO QHS cholesterol #90 tabs 03/15/23 [Rx Last Taken Unknown] Allergy/AdvReac Type Severity Reaction Status Date / Time poison niya extract Allergy Itching Verified 04/08/23 20:30 poison oak extract Allergy Itching Verified 04/08/23 20:30 streptokinase [Streptokinase] AdvReac Severe Hives Verified 04/08/23 20:30 Family History Brother Hypertension Cancer Mother CVA (cerebral vascular accident) Hypertension Surgical History H/O coronary artery bypass surgery (~02/2000) History of back surgery History of hysterectomy History of thyroidectomy Hx of appendectomy Stented coronary artery (10/18/07) Social History Smoking Status: Former smoker how long ago did patient quit smokin years ago alcohol intake: current alcohol intake frequency: holidays/special occasions only Alcohol type: wine substance use type: does not use caffeine: No what type of physical activity do you participate in: none seatbelt use: always ROS ROS ED Constitutional Constitutional ED: Denies chills or fever(s) Eyes Eyes: Denies change in vision or discharge from eye(s) ENT ENT ED: Denies discharge from eye(s), rhinorrhea or sore throat Cardiovascular Cardiovascular: Reports chest pain; Denies palpitations Respiratory/Chest Respiratory/Chest: Reports dyspnea; Denies cough Gastrointestinal Gastrointestinal: Denies abdominal pain, nausea or vomiting Genitourinary Genitourinary ED: Denies dysuria Musculoskeletal Musculoskeletal: Denies back pain or extremity pain Integumentary Denies Abrasions or rash Neurologic Neurologic: Denies headache(s) or weakness Psychiatric Psychiatric: Denies anxiety or depression Allergic/Immunologic Allergic/Immunologic ED: Denies lip swelling or urticaria EXAM Physical Exam Const Vital Signs: 04/08/23 20:29 04/08/23 20:47 04/08/23 21:52 Temperature 97.9 F Temperature Source Temporal Pulse Rate 59 L Respiratory Rate 16 Respiratory Effort Normal Non-Labored Blood Pressure 129/52 H Blood Pressure Mean 77 Pulse Ox 97 95 Oxygen Delivery Method Room Air Venturi Mask 04/08/23 21:52 Temperature Temperature Source Pulse Rate 52 L Respiratory Rate 17 Respiratory Effort Blood Pressure 121/57 H Blood Pressure Mean 78 Pulse Ox 95 Oxygen Delivery Method Room Air Positive well nourished and well developed General Appearance ED: well developed HEENT Reports moist mucous membranes Eyes EOMs intact bilaterally Chest Wall inspection of chest normal and palpation of chest normal Resp normal respiratory effort and clear to auscultation bilaterally Cardio regular rate and regular rhythm GI soft to palpation and non-tender Extremity normal to inspection Neuro oriented x3 and no sensory deficits noted Sensorium / Orientation: alert Motor Exam: strength 5/5 throughout Psych mental status grossly normal Skin no rashes or lesions noted MDM MDM MDM Narrative Medical decision making narrative: Patient placed on phototypesetting equipment monitor. IV line established. Patient did take 1 baby aspirin this morning. 3 additional baby aspirin given at this time. Labwork obtained to evaluate for leukocytosis, anemia, and electrolyte derangement. EKG obtained to evaluate for cardiac arrhythmia/ischemia. Chest x-ray obtained to evaluate for acute lung pathology, cardiac size, or mediastinal abnormality. History & Record Review Discussion w/independent historian: Patient and Significant other Additional record(s) reviewed:: Prior ED visit and Prior labs Lab Data Attestation: I reviewed the patient's lab results. Labs: Laboratory Results - last 24 hr 04/08/23 04/08/23 20:45 23:10 WBC 7.0 RBC 4.25 Hgb 11.9 L Hct 38.2 MCV 89.9 MCH 28.0 MCHC 31.2 L RDW Std Deviation 40.6 RDW Coeff of [place] 12.3 Plt Count 269 MPV 10.7 Immature Gran % (Auto) 0.300 Neut % (Auto) 48.9 Lymph % (Auto) 38.8 [place] % (Auto) 10.0 Eos % (Auto) 1.4 Baso % (Auto) 0.6 Absolute Neuts (auto) 3.4 Absolute Lymphs (auto) 2.72 Nucleated RBC % 0 Sodium 139 Potassium 3.5 Chloride 105 Carbon Dioxide 32.0 Anion Gap 2 L BUN 25 H Creatinine 1.19 H Estim Creat Clear Calc 31.47 Est GFR (MDRD) Af Amer 56 L Est GFR (MDRD) Non-Af 46 L BUN/Creatinine Ratio 21.0 H Glucose 100 Calcium 9.5 Troponin I High Sens 14 13 Radiography Chest X-Ray - ED: 1 View, Read by ED Physician and Chronic Changes Diagnostic Testing: Clinical Impression(s) from Imaging Studies Chest X-Ray 04/08/23 19:55 IMPRESSION: There are no acute findings. Electronically Signed: Vladimir Loza MD at 21:16 EST Reading Location ID and State: [facility] / [place] , Service support , EKG Initial EKG: Attestation: I personally reviewed and interpreted this EKG as follows: Interpretation: Sinus Bradycardia (Sinus bradycardia 59 bpm. Chronic changes noted, no acute change when compared to prior study March 21, 2023) Treatment and Re-Evaluation :: Patient has been comfortable with no recurrent chest pain here. CBC was normal white count at 7.0 with a hemoglobin 11.9. Chemistry studies unremarkable with a BUN of 25 and a creatinine 1.19. Initial troponin is 14 with a 2-hour repeat of 13. Portable chest x-ray per my interpretation was chronic changes with no acute findings. EKG reveals no ischemia with chronic changes. At this time patient will be discharged to home with close follow-up instructions. Return instructions given. Patient is comfortable with the plan. Discharge Plan Triage Chief Complaint: Chest Pain ED Provider: Marizol Frey Dx/Rx/DC Orders Clinical Impression: Chest pain Instructions: ED Chest Pain, Uncertain Cause Prescriptions: No Action Myrbetriq 50 mg tablet extended release 24 hr 50 mg PO DAILY Patient Comments: TAKE 1 TABLET BY MOUTH EVERY DAY aspirin [Adult Low Dose Aspirin] 81 mg tablet,delayed release (DR/EC) 81 mg PO DAILY oxybutynin chloride 10 mg tablet extended release 24hr 10 mg PO DAILY Patient Comments: TAKE 1 TABLET BY MOUTH EVERY DAY sucralfate 1 gram tablet 1 g PO QACHS Patient Comments: TAKE 1 TABLET BY MOUTH BEFORE MEALS AND AT BEDTIME cholecalciferol (vitamin D3) 1,250 mcg (50,000 unit) capsule 1,250 mcg PO QMONTH levothyroxine 125 mcg tablet 125 mcg PO DAILY Patient Comments: TAKE 1 TABLET BY MOUTH ONCE DAILY. TAKE ON EMPTY STOMACH. FOR THYROID. lansoprazole 30 mg capsule,delayed release(DR/EC) 30 mg PO DAILY Patient Comments: TAKE 1 CAPSULE BY MOUTH DAILY BEFORE BREAKFAST. 1/2 HR BEFORE MEAL. niacin 500 mg tablet extended release 24 hr 500 mg PO BID Qty: 180 3RF Eliquis 5 mg tablet 5 mg PO BID Qty: 60 11RF atenolol 50 mg tablet 50 mg PO BID Qty: 180 3RF furosemide [Lasix] 40 mg tablet 40 mg PO DAILY PRN (Reason: edema) Qty: 90 3RF hydrochlorothiazide 25 mg tablet 25 mg PO DAILY Qty: 90 3RF potassium chloride 20 mEq tablet extended release 20 meq PO DAILY Qty: 90 3RF ramipril 10 mg capsule 10 mg PO DAILY Qty: 90 3RF rosuvastatin 40 mg tablet 40 mg PO QHS Qty: 90 3RF nitroglycerin 0.4 mg tablet, sublingual 0.4 mg SUBLINGUAL Q5M PRN (Reason: Chest Pain) Qty: 25 3RF Primary Care Provider: Rolf Reyes Referrals: Rolf Reyes MD [Primary Care Provider] - 1-2 Weeks Disposition Disposition: Home, Self Care
[2023-04-08 21:29] LABS: Anion Gap 2 (5-15); BUN 25 mg/dL (7-18); Calcium,Total 9.5 mg/dL (8.5-10.1); Chloride 105 mmol/L (98-107); Creatinine, Serum 1.19 mg/dL (0.55-1.02); EST Glomerular Filtration Rate 46 mL/min (>60); Est Glom Filt Rate - Afr Amer 56 mL/min (>60); Estimated Creatinine Clearance 31.47 ml/min; Glucose 100 mg/dL (74-106); Potassium 3.5 mmol/L (3.5-5.1); Sodium Level 139 mmol/L (136-145); Troponin-I HS (w/2H Reflex) 14 pg/mL (3.0-54.0)
[2023-04-08] MEDS: Aspirin 81 MG TAB.CHEW 243 MG PO (21:34)
[2023-04-08 21:52] VITALS: BP 121/57; PULSE 52; RESP 17; O2SAT 95
[2023-04-08 23:07] LABS: Reflex Troponin-HS? (from REC) Y
[2023-04-08 23:37] LABS: Troponin-I HS 13 pg/mL (3.0-54.0)
[2023-04-08 23:48] VITALS: BP 142/60; PULSE 57; RESP 20; O2SAT 95
== END 2023-04-08 23:56 | disposition home or self-care (01) ==
PROVIDERS: Physician Assistant; Emergency Provider Emergency Medicine; PCP Family Medicine; Visit Provider Emergency Medicine
DX: R07.9 Chest pain, unspecified (principal); I25.10 Atherosclerotic heart disease of native coronary artery without angina pectoris; Z79.01 Long term (current) use of anticoagulants; Z86.711 Personal history of pulmonary embolism; Z86.718 Personal history of other venous thrombosis and embolism; Z95.1 Presence of aortocoronary bypass graft; Z95.5 Presence of coronary angioplasty implant and graft; Z87.891 Personal history of nicotine dependence
CPT/HCPCS: 71045; 80048; 84484; 85025; 93005; 99284; A4216

== ENCOUNTER → 2023-08-11 | Outpatient (CLI) | payer MEDICARE, OTHER, SELFPAY ==
--- OUTSIDE RECORDS SUMMARY | 2023-08-11 10:25 | XMS RPT_ITS | CCD ---
Author Name Unknown Address [address] [place] [address] Organization [facility] Care Team Providers Care Manager Services Name Role Phone Bernice Valero Y Unavailable Unavailable Nathaniel, ESCOBAR, Yaima Ann Unavailable UnavailBernice Ascencio Unavailable Unavailable ESCOBAR Armstrong, Yaima Ann Unavailable Unavailami Knight RN, Shila Smyth Unavailable Renate Issa Unavailable Unavailable Renate Issa Unavailable Unavailable Samantha Reyes MD Primary Care Provider Samantha Reyes MD Primary Care Provider Samantha Reyes MD Primary Care Provider Samantha Reyes MD Primary Care Provider SAMANTHA REYES Primary Care Unavailable SAMANTHA REYES Primary Care Unavailable SAMANTHA REYES Attending Unavailable SAMANTHA REYES Referring Unavailable SAMANTHA REYES Primary Care Unavailable ATHY, DAVINA R Referring Unavailable SAMANTHA REYES Primary Care Unavailable SAMANTHA REYES Primary Care Unavailable SAMANTHA REYES Primary Care Unavailable BARLEY, RADHA Attending Unavailable SAMANTHA REYES Primary Care Unavailable BARLEY, RADHA Referring Unavailable SAMANTHA REYES Primary Care Unavailable SAMANTHA REYES Referring Unavailable SAMANTHA REYES Primary Care Unavailable SAMANTHA REYES Attending Unavailable SAMANTHA REYES Primary Care Unavailable SAMANTHA REYES Referring Unavailable Allergies Allergy Classification Reported Allergen(s) Allergy Type Date of Onset Reaction(s) Facility (20 sources) streptokinase; Translations: [STREPTOKINASE] drug allergy 8 [facility] Work Phone: (20 sources) POISON ARACELI EXTRACT; Translations: [POISON ARACELI] Drug Allergy 5 [facility] Work Phone: (20 sources) STREPTOKINESIS [Other] Propensity to adverse reactions 5 [facility] (20 sources) Poison [place] Extract; Translations: [POISON [place] EXTRACT] Drug Allergy 2 Itching [facility] (1 source) OTHER; Translations: [OTHER] Propensity to adverse reactions (disorder) 5 [facility] Repository Medications Current Medications Medication Drug Class(es) Dates Sig (Normalized) Sig (Original) cephalexin 500 mg oral capsule (12 sources) Cephalosporin Antibacterial Start: 02-21-2022 End: 02-28-2022 take 1 capsule by mouth twice daily cephALEXin (KEFLEX) 500 mg capsule Take 1 capsule by mouth twice daily for 7 days. 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] Onset: 09-02-2014 08-30-2012 Chronic Cardiac dysrhythmias (20 sources) Paroxysmal atrial fibrillation; Translations: [Atrial fibrillation] Onset: 09-15-2010 09-29-2015 Chronic Chronic kidney disease (8 sources) Chronic kidney disease stage 3A ; Translations: [Chronic kidney disease, stage 3a] Onset: 10-05-2022 10-05-2022 Chronic Chronic kidney disease (1 source) Chronic kidney disease; Translations: [Chronic kidney disease, stage 3a (HCC)] Onset: 10-05-2022 Coronary atherosclerosis and other heart disease (20 sources) Atherosclerotic heart disease of [place] coronary artery without angina pectoris; Translations: [Coronary arteriosclerosis] Onset: 03-20-2005 Resolved: 04-05-2015 09-29-2015 Chronic Disorders of lipid metabolism (10 sources) Hyperlipidemia; Translations: [Hyperlipidemia, unspecified] Onset: 09-15-2010 09-15-2010 Chronic E Codes: Fall (1 source) Fall; Translations: [Unspecified fall, initial encounter] Episodic Esophageal disorders (20 sources) Gastroesophageal reflux disease; Translations: [Gastro-esophageal reflux disease without esophagitis] Onset: 09-08-2013 09-08-2013 Chronic Essential hypertension (20 sources) Hypertensive disorder; Translations: [Benign essential hypertension] Onset: 03-20-2005 09-15-2010 Chronic Genitourinary symptoms and ill-defined conditions (4 sources) Urge incontinence of urine; Translations: [Urge incontinence] Chronic Genitourinary symptoms and ill-defined conditions (6 sources) Dysuria; Translations: [Dysuria] Episodic Nutritional deficiencies (2 sources) Vitamin D deficiency; Translations: [Vitamin D deficiency, unspecified] Onset: 09-30-2022 04-10-2023 Chronic Other aftercare (1 source) Patient encounter status; Translations: [Other ch[facility] (current) drug therapy] Episodic Other lower respiratory disease (19 sources) Dyspnea; Translations: [Dyspnea on exertion] Onset: 10-08-2013 Resolved: 04-05-2015 10-08-2013 Episodic Other nervous system disorders (20 sources) Ulnar neuropathy of left arm; Translations: [Lesion of ulnar nerve, left upper limb] Onset: 09-08-2014 09-08-2014 Chronic Other nutritional; endocrine; and metabolic disorders (9 sources) Body mass index (BMI) 40.0-44.9, adult; Translations: [Body mass index (BMI) 39.0-39.9, adult] Onset: 03-04-2013 04-05-2015 Chronic Other nutritional; endocrine; and metabolic disorders (5 sources) Body mass index (BMI) 39.0-39.9, adult; Translations: [Body mass index (BMI) 39.0-39.9, adult] Onset: 03-04-2013 03-04-2013 Chronic Other nutritional; endocrine; and metabolic disorders (20 sources) Obesity; Translations: [Obesity, unspecified] Onset: 09-02-2014 09-02-2014 Chronic Other nutritional; endocrine; and metabolic disorders (20 sources) Obese class II; Translations: [Obesity, unspecified] Onset: 04-29-2019 04-29-2019 Chronic Other skin disorders (20 sources) Localized scleroderma; 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]] Onset: 12-27-2005 12-27-2005 Chronic Thyroid disorders (20 sources) Hypothyroidism; Translations: [Hypothyroidism, unspecified] Onset: 03-20-2005 04-23-2017 Chronic Unclassified (4 sources) Placement of stent in coronary artery ; Translations: [Presence of coronary angioplasty implant and graft] Onset: 09-15-2010 09-29-2015 Unclassified (5 sources) Long-term drug therapy; Translations: [Other chcf (current) drug therapy] Onset: 09-15-2010 09-15-2010 Urinary tract infections (1 source) Acute cystitis; Translations: [Acute cystitis with hematuria] Episodic Viral infection (1 source) Disease caused by 2019-nCoV; Translations: [COVID-19] Episodic Past or Other Problems Problem Classification Problem Date Documented Da te Episodic/Chronic Abdominal hernia (20 sources) Ventral incisional hernia; Translations: [Incisional hernia without obstruction or gangrene] Onset: 7 06-15-2016 Episodic Conditions associated with dizziness or vertigo (14 sources) Dizziness and giddiness; Translations: [Dizziness and giddiness] Onset: 2 Resolved: 5 07-03-2011 Episodic Coronary atherosclerosis and other heart disease (7 sources) Coronary angioplasty status; Translations: [Coronary angioplasty status] Onset: 1 09-15-2010 Episodic Esophageal disorders (20 sources) Esophagitis; Translations: [Esophagitis, unspecified] Onset: 2 01-23-2012 Episodic Fracture of lower limb (20 sources) Fracture of lateral malleolus; Translations: [Displaced fracture of lateral malleolus of right fibula, initial encounter for closed fracture] Onset: 3 08-27-2012 Episodic Fracture of upper limb (20 sources) Fracture of triquetral bone of wrist; Translations: [Nondisplaced fracture of triquetrum [cuneiform] bone, right wrist, initial encounter for closed fracture] Onset: 3 08-27-2012 Episodic Gastritis and duodenitis (20 sources) Acute gastritis; Translations: [Acute gastritis without bleeding] Onset: 2 01-23-2012 Episodic Nonspecific chest pain (20 sources) Chest pain, unspecified; Translations: [Chest pain] Onset: 1 Resolved: 6 03-30-2015 Episodic Other aftercare (3 sources) Other termite helper (current) drug therapy; Translations: [Other chcf (current) drug therapy] Onset: 1 09-15-2010 Episodic Other circulatory disease (13 sources) Abnormal cardiovascular function; Translations: [Abnormal result of other cardiovascular function study] Onset: 3 Resolved: 5 10-22-2015 Episodic Other lower respiratory disease (3 sources) Dyspnea on exertion; Translations: [Other forms of dyspnea] Onset: 5 04-05-2015 Episodic Other non-traumatic joint disorders (7 sources) Hip pain; Translations: [Pain in left hip] Onset: 6 06-10-2015 Episodic Other screening for suspected conditions (not mental disorders or infectious disease) (15 sources) Abnormal result of other cardiovascular function study; Translations: [Abnormal electrocardiogram [ECG] [EKG]] Onset: 3 Resolved: 5 04-05-2015 Episodic Other upper respiratory infections (2 sources) Viral upper respiratory tract infection; Translations: [Acute upper respiratory infection, unspecified] Onset: 3 Episodic Phlebitis; thrombophlebitis and thromboembolism (20 sources) History of thromboembolism of vein; Translations: [Personal history of other venous thrombosis and embolism] Onset: 5 Episodic Spondylosis; intervertebral disc disorders; other back problems (7 sources) Low back pain; Translations: [Low back pain] Onset: 6 06-10-2015 Episodic Unclassified (14 sources) Family history of stroke; Translations: [Family history of stroke] Resolved: 5 06-03-2014 Episodic Results Test Name Value Interpretation Reference Range Facil ity Vital Signs Date Time Vital Sign Value Performing Clinician Faci sonja 04-10-2023 15:04-0500 Body weight 90.63 kg Samantha Reyes MD Work Phone: [facility] 04-10-2023 15:04-0500 Diastolic blood pressure 70 mm[Hg] Samantha Reyes MD Work Phone: [facility] 04-10-2023 15:04-0500 Heart rate 60 /min Samantha Reyes MD Work Phone: [facility] 04-10-2023 15:04-0500 Respiratory rate 18 /min Samantha Reyes MD Work Phone: [facility] 04-10-2023 15:04-0500 Systolic blood pressure 114 mm[Hg] Samantha Reyes MD Work Phone: [facility] 02-09-2023 09:01-0400 Body temperature 96.91 [degF] Derick Atkins MD Work Phone: [facility] 02-09-2023 09:01-0400 Body weight 91.17 kg Derick Atkins MD Work Phone: [facility] 02-09-2023 09:01-0400 Diastolic blood pressure 78 mm[Hg] Derick Atkins MD Work Phone: [facility] 02-09-2023 09:01-0400 Heart rate 86 /min Derick Atkins MD Work Phone: [facility] 02-09-2023 09:01-0400 Respiratory rate 16 /min Derick Atkins MD Work Phone: [facility] 02-09-2023 09:01-0400 SaO2% (BldA) [Mass fraction] 96 % Derick Atkins MD Work Phone: [facility] 02-09-2023 09:01-0400 Systolic blood pressure 132 mm[Hg] Derick Atkins MD Work Phone: [facility] 08-25-2022 09:33-0400 Body temperature 98.6 [degF] Davina Athy PA-C Work Phone: [facility] 08-25-2022 09:33-0400 Body weight 94.71 kg Davina Athy PA-C Work Phone: [facility] 08-25-2022 09:33-0400 Diastolic blood pressure 74 mm[Hg] Davina Athy PA-C Work Phone: [facility] 08-25-2022 09:33-0400 Heart rate 78 /min Davina Athy PA-C Work Phone: [facility] 08-25-2022 09:33-0400 Respiratory rate 16 /min Davinaawa Laney PA-C Work Phone: [facility] 08-25-2022 09:33-0400 SaO2% (BldA) [Mass fraction] 96 % Davinaawa Laney PA-C Work Phone: [facility] 08-25-2022 09:33-0400 Systolic blood pressure 126 mm[Hg] Davina Athy PA-C Work Phone: [facility] 08-21-2022 13:05-0400 Body height 162.6 cm Radha Barley DIRECTOR OF QUANTITATIVE RESEARCH.INSTRUMENT INSTALLER Work Phone (unformatted): [phone] [facility] 08-21-2022 13:05-0400 Body weight 93.89 kg Radha Barley DIRECTOR OF QUANTITATIVE RESEARCH.INSTRUMENT INSTALLER Work Phone (unformatted): [phone] [facility] 08-21-2022 13:05-0400 Diastolic blood pressure 70 mm[Hg] Radha Barley DIRECTOR OF QUANTITATIVE RESEARCH.INSTRUMENT INSTALLER Work Phone (unformatted): [phone] [facility] 08-21-2022 13:05-0400 Heart rate 61 /min Radha Barley DIRECTOR OF QUANTITATIVE RESEARCH.INSTRUMENT INSTALLER Work Phone (unformatted): [phone] [facility] 08-21-2022 13:05-0400 Respiratory rate 16 /min Radha Barley DIRECTOR OF QUANTITATIVE RESEARCH.INSTRUMENT INSTALLER Work Phone (unformatted): [phone] [facility] 08-21-2022 13:05-0400 SaO2% (BldA) [Mass fraction] 98 % Radha Barley DIRECTOR OF QUANTITATIVE RESEARCH.INSTRUMENT INSTALLER Work Phone (unformatted): [phone] [facility] 08-21-2022 13:05-0400 Systolic blood pressure 122 mm[Hg] Radha Barley DIRECTOR OF QUANTITATIVE RESEARCH.INSTRUMENT INSTALLER Work Phone (unformatted): [phone] [facility] 02-21-2022 11:58-0400 Body temperature 98.4 [degF] Avtar Mccartney DIRECTOR OF QUANTITATIVE RESEARCH.INSTRUMENT INSTALLER Work Phone: [facility] 02-21-2022 11:58-0400 Body weight 95.71 kg Avtar Pendlebury DIRECTOR OF QUANTITATIVE RESEARCH.INSTRUMENT INSTALLER Work Phone: [facility] 02-21-2022 11:58-0400 Diastolic blood pressure 68 mm[Hg] Avtar Pendlebury DIRECTOR OF QUANTITATIVE RESEARCH.INSTRUMENT INSTALLER Work Phone: [facility] 02-21-2022 11:58-0400 Heart rate 84 /min Avtar Pendlebury DIRECTOR OF QUANTITATIVE RESEARCH.INSTRUMENT INSTALLER Work Phone: [facility] 02-21-2022 11:58-0400 Respiratory rate 18 /min Avtar Pendlebury DIRECTOR OF QUANTITATIVE RESEARCH.INSTRUMENT INSTALLER Work Phone: [facility] 02-21-2022 11:58-0400 SaO2% (BldA) [Mass fraction] 97 % Avtar Patellebury DIRECTOR OF QUANTITATIVE RESEARCH.INSTRUMENT INSTALLER Work Phone: [facility] 02-21-2022 11:58-0400 Systolic blood pressure 120 mm[Hg] Avtar Pendlebury DIRECTOR OF QUANTITATIVE RESEARCH.INSTRUMENT INSTALLER Work Phone: [facility] 02-01-2022 11:10-0400 Body temperature 97.11 [degF] Derick Atkins MD Work Phone: [facility] 02-01-2022 11:10-0400 Body weight 96.62 kg Derick Atkins MD Work Phone: [facility] 02-01-2022 11:10-0400 Diastolic blood pressure 72 mm[Hg] Derick Atkins MD Work Phone: [facility] 02-01-2022 11:10-0400 Heart rate 72 /min Derick Atkins MD Work Phone: [facility] 02-01-2022 11:10-0400 Respiratory rate 16 /min Derick Atkins MD Work Phone: [facility] 02-01-2022 11:10-0400 SaO2% (BldA) [Mass fraction] 97 % Derick Atkins MD Work Phone: [facility] 02-01-2022 11:10-0400 Systolic blood pressure 112 mm[Hg] Derick Atkins MD Work Phone: [facility] 01-19-2022 13:17-0400 Body temperature 97.59 [degF] Sylwia Mcleod APRN.INSTRUMENT INSTALLER Work Phone: [facility] 01-19-2022 13:17-0400 Body weight 95.07 kg Sylwia Mcleod APRN.INSTRUMENT INSTALLER Work Phone: [facility] 01-19-2022 13:17-0400 Diastolic blood pressure 78 mm[Hg] Sylwia Mcleod APRN.INSTRUMENT INSTALLER Work Phone: [facility] 01-19-2022 13:17-0400 Heart rate 68 /min Sylwia Mcleod APRN.INSTRUMENT INSTALLER Work Phone: [facility] 01-19-2022 13:17-0400 Respiratory rate 18 /min Sylwia Mcleod APRN.INSTRUMENT INSTALLER Work Phone: [facility] 01-19-2022 13:17-0400 SaO2% (BldA) [Mass fraction] 97 % Sylwia Mcleod APRN.INSTRUMENT INSTALLER Work Phone: [facility] 01-19-2022 13:17-0400 Systolic blood pressure 126 mm[Hg] Sylwia Mcleod APRN.INSTRUMENT INSTALLER Work Phone: [facility] 01-02-2022 09:00-0400 Body weight 95.98 kg Samantha Reyes MD Work Phone: [facility] 01-02-2022 09:00-0400 Diastolic blood pressure 70 mm[Hg] Samantha Reyes MD Work Phone: [facility] 01-02-2022 09:00-0400 Heart rate 72 /min Samantha Reyes MD Work Phone: [facility] 01-02-2022 09:00-0400 Respiratory rate 16 /min Samantha Reyes MD Work Phone: [facility] 01-02-2022 09:00-0400 Systolic blood pressure 122 mm[Hg] Samantha Reyes MD Work Phone: [facility] 11-21-2021 11:15-0400 Body temperature 97.3 [degF] Odessa Praisler-Wood DIRECTOR OF QUANTITATIVE RESEARCH.INSTRUMENT INSTALLER Work Phone: [facility] 11-21-2021 11:15-0400 Body weight 96.71 kg Odessa Praisler-Wood DIRECTOR OF QUANTITATIVE RESEARCH.INSTRUMENT INSTALLER Work Phone: [facility] 11-21-2021 11:15-0400 Diastolic blood pressure 78 mm[Hg] Odessa Praisler-Wood DIRECTOR OF QUANTITATIVE RESEARCH.INSTRUMENT INSTALLER Work Phone: [facility] 11-21-2021 11:15-0400 Heart rate 78 /min Odessa Praisler-Wood DIRECTOR OF QUANTITATIVE RESEARCH.INSTRUMENT INSTALLER Work Phone: [facility] 11-21-2021 11:15-0400 Respiratory rate 21 /min Odessa Praisler-Wood DIRECTOR OF QUANTITATIVE RESEARCH.INSTRUMENT INSTALLER Work Phone: [facility] 11-21-2021 11:15-0400 SaO2% (BldA) [Mass fraction] 98 % Odessa Praisler-Wood DIRECTOR OF QUANTITATIVE RESEARCH.INSTRUMENT INSTALLER Work Phone: [facility] 11-21-2021 11:15-0400 Systolic blood pressure 118 mm[Hg] Odessa Praisler-Wood DIRECTOR OF QUANTITATIVE RESEARCH.INSTRUMENT INSTALLER Work Phone: [facility] 10-17-2021 16:31-0400 Body weight 98.07 kg Samantha Reyes MD Work Phone: [facility] 10-17-2021 16:31-0400 Diastolic blood pressure 78 mm[Hg] Samantha Reyes MD Work Phone: [facility] 10-17-2021 16:31-0400 Heart rate 88 /min Samantha Reyes MD Work Phone: [facility] 10-17-2021 16:31-0400 Respiratory rate 20 /min Samantha Reyes MD Work Phone: [facility] 10-17-2021 16:31-0400 SaO2% (BldA) [Mass fraction] 95 % Samantha Reyes MD Work Phone: [facility] 10-17-2021 16:31-0400 Systolic blood pressure 118 mm[Hg] Samantha Reyes MD Work Phone: [facility] 09-09-2021 10:28-0400 Body temperature 97 [degF] Davina Athy PA-C Work Phone: [facility] 09-09-2021 10:28-0400 Body weight 98.7 kg Davina Athy PA-C Work Phone: [facility] 09-09-2021 10:28-0400 Diastolic blood pressure 102 mm[Hg] Davina Athy PA-C Work Phone: [facility] 09-09-2021 10:28-0400 Heart rate 89 /min Davina Athy PA-C Work Phone: [facility] 09-09-2021 10:28-0400 Respiratory rate 26 /min Davina Athy PA-C Work Phone: [facility] 09-09-2021 10:28-0400 SaO2% (BldA) [Mass fraction] 94 % Davina Athy PA-C Work Phone: [facility] 09-09-2021 10:28-0400 Systolic blood pressure 156 mm[Hg] Davina Athy PA-C Work Phone: [facility] 01-11-2017 12:40-0400 BMI (Body Mass Index) 39.99 kg/m2 Renate Issa [facility] Work Phone: 01-11-2017 12:40-0400 BP Diastolic 60 mm[Hg] Renateyash Issa [facility] Work Phone: 01-11-2017 12:40-0400 BP Systolic 124 mm[Hg] Renate Issa [facility] Work Phone: 01-11-2017 12:40-0400 Height 162.56 cm Renateyash Issa [facility] Work Phone: 01-11-2017 12:40-0400 Pulse (Heart Rate) 60 /min Renate [facility] Work Phone: 01-11-2017 12:40-0400 Respiratory Rate 18 /min Renate [facility] Work Phone: 01-11-2017 12:40-0400 Weight 105.69 kg Renate [facility] Work Phone: 07-06-2016 14:54-0500 BMI (Body Mass Index) 40.85 kg/m2 ESCOBAR [facility] Work Phone: 07-06-2016 14:54-0500 BP Diastolic 70 mm[Hg] ESCOBAR [facility] Work Phone: 07-06-2016 14:54-0500 BP Systolic 130 mm[Hg] ESCOBAR [facility] Work Phone: 07-06-2016 14:54-0500 BSA (Body Surface Area) 2.11 m2 ESCOBAR [facility] Work Phone: 07-06-2016 14:54-0500 Height 162.56 cm ESCOBAR [facility] Work Phone: 07-06-2016 14:54-0500 Pulse (Heart Rate) 54 /min [facility] Work Phone: 07-06-2016 14:54-0500 Respiratory Rate 18 /min [facility]OB[facility] Work Phone: 07-06-2016 14:54-0500 Weight 107.96 kg ESCOBAR [facility] Work Phone: 06-26-2016 12:50-0500 Body Temperature 98.2 [degF] ESCOBAR [facility] Work Phone: 06-26-2016 12:50-0500 Height 162.56 cm ESCOBAR [facility] Work Phone: 06-26-2016 12:50-0500 Pulse Oximetry 96 % [facility] Work Phone: 06-26-2016 12:50-0500 Weight 109.09 kg Yaima Armstrong RN [facility] Work Phone: 10-28-2015 11:40-0400 Heart rate 50 /min [facility] Work Phone: 10-13-2013 15:24-0400 Heart rate 428 ms [facility] Work Phone: Encounters Encounter Date Encounter Type Care Provider Facility Start: 04-27-2023 End: 04-27-2023 ambulatory SAMANTHA REYES Facility:[facility] Start: 04-27-2023 End: 04-27-2023 ambulatory [facility] Nurse [place] Work Phone: [facility] Start: 04-10-2023 End: 04-10-2023 ambulatory SAMANTHA REYES Facility:[facility] Start: 04-10-2023 End: 04-10-2023 Patient encounter procedure Samantha Reyes MD Work Phone: [facility] Procedures Date Procedure Procedure Detail Performing Clinician Start: 04-27-2023 PFIZER-BIONTECH COVID-19 VACCINE (2022- SEASON) AGE 12+ YR Elroy Nguyen MD Work Phone: Start: 02-09-2023 Urnls dip stick/tablet rgnt auto w/o microscopy Sylwia Mcleod DIRECTOR OF QUANTITATIVE RESEARCH.INSTRUMENT INSTALLER Work Phone: Start: 03-28-2022 PROTHROMBIN TIME/PT Reed Waite Work Phone: Start: 02-21-2022 Urnls dip stick/tablet rgnt auto w/o microscopy Avtar Mccartney DIRECTOR OF QUANTITATIVE RESEARCH.INSTRUMENT INSTALLER Work Phone: Start: 02-03-2022 PROTHROMBIN TIME/PT [facility] Provider Start: 02-01-2022 Urnls dip stick/tablet rgnt auto w/o microscopy Davina Quarles PA-C Work Phone: Start: 01-02-2022 Prothrombin time Samantha Reyes MD Work Phone: Start: 11-21-2021 Urnls dip stick/tablet rgnt auto w/o microscopy Nata CUETOC Work Phone: Start: 09-09-2021 PROTHROMBIN TIME/PT [facility] Provider Start: 09-09-2021 Urnls dip stick/tablet rgnt auto w/o microscopy Davina Quarles PANeelamC Work Phone: Start: 03-28-2017 End: 03-28-2017 *Hepatic Function Panel Gaurang Gorman MD Work Phone: Start: 03-28-2017 End: 03-28-2017 Lipid 1996 panel - Serum or Plasma Gaurang Gorman MD Work Phone: Start: 03-19-2017 End: 03-22-2017 Nuclear stress test -Lexiscan Gaurang Gorman MD Work Phone: Start: 01-11-2017 End: 01-11-2017 LORENZO Gorman MD Work Phone: Start: 01-11-2017 End: 01-11-2017 Follow Up Appt 6 months Gaurang Gorman MD Work Phone: Start: 01-11-2017 End: 01-11-2017 LORENZO Gorman MD Work Phone: Start: 01-11-2017 End: 01-11-2017 Follow Up Appt 6 months Gaurang Gorman MD Work Phone: Start: 07-06-2016 End: 07-06-2016 Dietary management education, guidance, and counseling Renate Issa Start: 07-06-2016 End: 09-25-2016 *Hepatic Function Panel Gaurang Gorman MD Work Phone: Start: 07-06-2016 End: 07-06-2016 LORENZO Gorman MD Work Phone: Start: 07-06-2016 End: 07-06-2016 Follow Up Appt 6 months Gaurang Gorman MD Work Phone: Start: 07-06-2016 End: 09-25-2016 Lipid 1996 panel - Serum or Plasma Gaurang Gorman MD Work Phone: Start: 07-06-2016 End: 09-25-2016 *Hepatic Function Panel Gaurang Gorman MD Work Phone: Start: 07-06-2016 End: 07-06-2016 DJN Gaurang Gorman MD Work Phone: Start: 07-06-2016 End: 07-06-2016 Follow Up Appt 6 months Gaurang Gorman MD Work Phone: Start: 07-06-2016 End: 09-25-2016 Lipid panel [AGGREGATE] Gaurang Gorman MD Work Phone: Start: 04-14-2016 End: 07-06-2016 *Hepatic Function Panel Gaurang Gorman MD Work Phone: Start: 04-14-2016 End: 07-06-2016 Lipid 1996 panel - Serum or Plasma Gaurang Gorman MD Work Phone: Start: 04-14-2016 End: 07-06-2016 *Hepatic Function Panel Gaurang Gorman MD Work Phone: Start: 04-14-2016 End: 07-06-2016 Lipid panel [AGGREGATE] Gaurang Gorman MD Work Phone: Start: 11-30-2015 End: 11-30-2015 *CBC with Differential [place] M Alam Work Phone: Start: 11-30-2015 End: 11-30-2015 *CMP Complete Metabolic Panel Matamoros M Alam Work Phone: Start: 11-30-2015 End: 12-01-2015 Cancer Ag 125 [Units/volume] in Serum or Plasma Matamoros M Alam Work Phone: Start: 11-30-2015 End: 11-30-2015 Lactate dehydrogenase [Enzymatic activity/volume] in Serum or Plasma Matamoros M Alam Work Phone: Start: 11-30-2015 End: 11-30-2015 Urate [Mass/volume] in Serum or Plasma Saturnino Thomas Work Phone: Start: 11-30-2015 End: 11-30-2015 *CBC with Differential Saturnino Thomas Work Phone: Start: 11-30-2015 End: 11-30-2015 *CMP Complete Metabolic Panel Saturnino Thomas Work Phone: Start: 11-30-2015 End: 12-01-2015 Cancer antigen 125 Saturnino Thomas Work Phone: Start: 11-30-2015 End: 11-30-2015 Lactate dehydrogenase (LDH) Saturnino Thomas Work Phone: Start: 11-30-2015 End: 11-30-2015 Urate Saturnino Thomas Work Phone: Start: 11-10-2015 End: 11-11-2015 Left Heart Cath W/Grafts Gaurang Gorman MD Work Phone: Start: 11-10-2015 End: 11-11-2015 Left Heart Cath W/Grafts Gaurang Gorman MD Work Phone: Start: 11-08-2015 End: 11-08-2015 LORENZO Michael PA-C Work Phone: Start: 11-08-2015 End: 11-08-2015 Follow Up Appt 6 months Shila devine PA-C Work Phone: Start: 11-08-2015 End: 11-08-2015 LORENZO Michael PA-C Work Phone: Start: 11-08-2015 End: 11-08-2015 Follow Up Appt 6 months Shila devine PA-C Work Phone: Start: 10-28-2015 End: 10-28-2015 *BMP Gaurang Gorman MD Work Phone: Start: 10-28-2015 End: 10-28-2015 aPTT in Platelet poor plasma by Coagulation assay Gaurang Gorman MD Work Phone: Start: 10-28-2015 End: 10-28-2015 CBC W Auto Differential panel - Blood Gaurang Gorman MD Work Phone: Start: 10-28-2015 End: 05-26-2016 Chest x-ray Gaurang Gorman MD Work Phone: Start: 10-28-2015 End: 10-28-2015 Ecg routine ecg w/least 12 lds w/i&r Gaurang Gorman MD Work Phone: Start: 10-28-2015 End: 10-28-2015 INR in Platelet poor plasma by Coagulation assay Gaurang Gorman MD Work Phone: Start: 10-28-2015 End: 10-28-2015 Nurse, Teaching, Wound Check (no charge) Gaurang Gorman MD Work Phone: Start: 10-28-2015 End: 10-28-2015 *BMP Gaurang Gorman MD Work Phone: Start: 10-28-2015 End: 10-28-2015 aPTT Gaurang Gorman MD Work Phone: Start: 10-28-2015 End: 10-28-2015 CBC W Auto Differential panel - Blood Gaurang Gorman MD Work Phone: Start: 10-28-2015 End: 05-26-2016 Chest x-ray Gaurang Gorman MD Work Phone: Start: 10-28-2015 End: 10-28-2015 Coagulation factor induced.INR assay in platelet poor plasma Gaurang Gorman MD Work Phone: Start: 10-28-2015 End: 10-28-2015 Electrocardiogram, complete Gaurang Gorman MD Work Phone: Start: 10-28-2015 End: 10-28-2015 Nurse, Teaching, Wound Check (no charge) Gaurang Gorman MD Work Phone: Start: 10-05-2015 End: 10-05-2015 LORENZO Gorman MD Work Phone: Start: 10-05-2015 End: 10-05-2015 Follow Up Appt 6 months Gaurang Gorman MD Work Phone: Start: 10-05-2015 End: 10-22-2015 Stress Echocardiogram - Dobutamine Gaurang Gorman MD Work Phone: Start: 10-05-2015 End: 10-05-2015 LORENZO Gorman MD Work Phone: Start: 10-05-2015 End: 10-05-2015 Follow Up Appt 6 months Gaurang Gorman MD Work Phone: Start: 10-05-2015 End: 10-22-2015 Stress Echocardiogram - Dobutamine Gaurang Gorman MD Work Phone: Start: 09-08-2015 End: 10-13-2015 *Hepatic Function Panel Gaurang Gorman MD Work Phone: Start: 09-08-2015 End: 10-13-2015 Lipid 1996 panel - Serum or Plasma Gaurang Gorman MD Work Phone: Start: 09-08-2015 End: 10-13-2015 *Hepatic Function Panel Gaurang Gorman MD Work Phone: Start: 09-08-2015 End: 10-13-2015 Lipid panel [AGGREGATE] Gaurang Gorman MD Work Phone: Start: 06-02-2015 End: 11-30-2015 *CBC with Differential Matamoros M Alam Work Phone: Start: 06-02-2015 End: 06-02-2015 *CMP Complete Metabolic Panel Matamoros M Alam Work Phone: Start: 06-02-2015 End: 06-03-2015 Cancer Ag 125 [Units/volume] in Serum or Plasma Matamoros M Alam Work Phone: Start: 06-02-2015 End: 06-02-2015 Lactate dehydrogenase [Enzymatic activity/volume] in Serum or Plasma Matamoros M Alam Work Phone: Start: 06-02-2015 End: 06-02-2015 Urate [Mass/volume] in Serum or Plasma Saturnino Thomas Work Phone: Start: 06-02-2015 End: 11-30-2015 *CBC with Differential Saturnino Thomas Work Phone: Start: 06-02-2015 End: 06-02-2015 *CMP Complete Metabolic Panel Saturnino Thomas Work Phone: Start: 06-02-2015 End: 06-03-2015 Cancer antigen 125 Saturnino Thomas Work Phone: Start: 06-02-2015 End: 06-02-2015 Lactate dehydrogenase (LDH) Saturnino Thomas Work Phone: Start: 06-02-2015 End: 06-02-2015 Urate Saturnino Thomas Work Phone: Start: 04-05-2015 End: 04-05-2015 LORENZO Gorman MD Work Phone: Start: 04-05-2015 End: 04-05-2015 Follow Up Appt 6 months Gaurang Gorman MD Work Phone: Start: 04-05-2015 End: 04-05-2015 LORENZO Gorman MD Work Phone: Start: 04-05-2015 End: 04-05-2015 Follow Up Appt 6 months Gaurang Gorman MD Work Phone: Start: 03-03-2015 End: 03-07-2015 *Hepatic Function Panel Gaurang Gorman MD Work Phone: Start: 03-03-2015 End: 03-09-2015 Lipid 1996 panel - Serum or Plasma Gaurang Gorman MD Work Phone: Start: 03-03-2015 End: 03-07-2015 *Hepatic Function Panel Gaurang Gorman MD Work Phone: Start: 03-03-2015 End: 03-09-2015 Lipid panel [AGGREGATE] Gaurang Gorman MD Work Phone: Start: 11-25-2014 End: 11-30-2015 *CBC with Differential Matamoros M Alam Work Phone: Start: 11-25-2014 End: 11-30-2014 *CMP Complete Metabolic Panel Matamoros M Alam Work Phone: Start: 11-25-2014 End: 12-02-2014 Cancer Ag 125 [Units/volume] in Serum or Plasma Matamoros M Alam Work Phone: Start: 11-25-2014 End: 11-30-2014 Lactate dehydrogenase [Enzymatic activity/volume] in Serum or Plasma Matamoros M Alam Work Phone: Start: 11-25-2014 End: 11-30-2014 Urate [Mass/volume] in Serum or Plasma Matamoros M Alam Work Phone: Start: 11-25-2014 End: 11-30-2015 *CBC with Differential Matamoros M Alam Work Phone: Start: 11-25-2014 End: 11-30-2014 *CMP Complete Metabolic Panel Matamoros M Alam Work Phone: Start: 11-25-2014 End: 12-02-2014 Cancer antigen 125 Matamoros M Alam Work Phone: Start: 11-25-2014 End: 11-30-2014 Lactate dehydrogenase (LDH) Matamoros M Alam Work Phone: Start: 11-25-2014 End: 11-30-2014 Urate Matamoros M Alam Work Phone: Start: 09-07-2014 End: 09-07-2014 LORENZO Gorman MD Work Phone: Start: 09-07-2014 End: 09-07-2014 Follow Up Appt 6 months Gaurang Gorman MD Work Phone: Start: 09-07-2014 End: 09-07-2014 LORENZO Gorman MD Work Phone: Start: 09-07-2014 End: 09-07-2014 Follow Up Appt 6 months Gaurang Gorman MD Work Phone: Start: 08-31-2014 End: 08-31-2014 *Hepatic Function Panel Gaurang Gorman MD Work Phone: Start: 08-31-2014 End: 08-31-2014 Lipid 1996 panel - Serum or Plasma Gaurang Gorman MD Work Phone: Start: 08-31-2014 End: 08-31-2014 *Hepatic Function Panel Gaurang Gorman MD Work Phone: Start: 08-31-2014 End: 08-31-2014 Lipid panel [AGGREGATE] Gaurang Gorman MD Work Phone: Start: 05-25-2014 End: 11-30-2015 *CBC with Differential Matamoros M Alam Work Phone: Start: 05-25-2014 End: 11-30-2015 *Creatinine, Serum Matamoros M Alam Work Phone: Start: 05-25-2014 End: 11-30-2015 Cancer Ag 125 [Units/volume] in Serum or Plasma Matamoros M Alam Work Phone: Start: 05-25-2014 End: 11-30-2015 Urea nitrogen [Mass/volume] in Serum or Plasma Matamoros M Alam Work Phone: Start: 05-25-2014 End: 11-30-2015 *CBC with Differential Matamoros M Alam Work Phone: Start: 05-25-2014 End: 11-30-2015 *Creatinine, Serum Matamoros M Alam Work Phone: Start: 05-25-2014 End: 11-30-2015 Cancer antigen 125 Matamoros M Alam Work Phone: Start: 05-25-2014 End: 11-30-2015 Urea nitrogen Matamoros M Alam Work Phone: Start: 01-26-2014 End: 02-27-2014 *Hepatic Function Panel Gaurang Gorman MD Work Phone: Start: 01-26-2014 End: 02-27-2014 Lipid 1996 panel - Serum or Plasma Gaurang Gorman MD Work Phone: Start: 01-26-2014 End: 02-27-2014 *Hepatic Function Panel Gaurang Gorman MD Work Phone: Start: 01-26-2014 End: 02-27-2014 Lipid panel [AGGREGATE] Gaurang Gorman MD Work Phone: Start: 10-13-2013 End: 10-22-2013 Ct abdomen w/o & w/contrast material Gaurang Gorman MD Work Phone: Start: 10-13-2013 End: 10-22-2013 Ct thorax w/o & w/contrast material Gaurang Gorman MD Work Phone: Start: 10-13-2013 End: 10-13-2013 SHAINAN Gaurang Gorman MD Work Phone: Start: 10-13-2013 End: 10-13-2013 Follow Up Appt 1 year Marissa Epps Work Phone: Start: 10-13-2013 End: 09-07-2014 Pulmonary Fuction Test - complete Gaurang Gorman MD Work Phone: Start: 10-13-2013 End: 10-22-2013 Ct abdomen w/o & w/dye Gaurang Gorman MD Work Phone: Start: 10-13-2013 End: 10-22-2013 Ct thorax w/o & w/dye Marissa Epps Work Phone: Start: 10-13-2013 End: 10-13-2013 LORENZO Gorman MD Work Phone: Start: 10-13-2013 End: 10-13-2013 Follow Up Appt 1 year Marissa Epps Work Phone: Start: 10-13-2013 End: 09-07-2014 Pulmonary Fuction Test - complete Gaurang Gorman MD Work Phone: Start: 10-08-2013 End: 10-09-2013 *BMP Gaurang Gorman MD Work Phone: Start: 10-08-2013 End: 10-09-2013 *CBC with Differential Gaurang Gorman MD Work Phone: Start: 10-08-2013 End: 10-09-2013 INR in Platelet poor plasma by Coagulation assay Gaurang Gorman MD Work Phone: Start: 10-08-2013 End: 10-09-2013 *BMP Gaurang Gorman MD Work Phone: Start: 10-08-2013 End: 10-09-2013 *CBC with Differential Gaurang Gorman MD Work Phone: Start: 10-08-2013 End: 10-09-2013 Coagulation factor induced.INR assay in platelet poor plasma Gaurang Gorman MD Work Phone: Start: 07-26-2013 End: 08-16-2013 *Hepatic Function Panel Reed Waite MD Start: 07-26-2013 End: 08-16-2013 Lipid 1996 panel - Serum or Plasma Reed Waite MD Start: 07-26-2013 End: 08-16-2013 *Hepatic Function Panel Reed Waite MD Start: 07-26-2013 End: 08-16-2013 Lipid panel [AGGREGATE] Reed Waite MD Start: 04-09-2013 End: 04-09-2013 *DERIAN Gorman MD Work Phone: Start: 04-09-2013 End: 04-09-2013 INR in Platelet poor plasma by Coagulation assay Gaurang Gorman MD Work Phone: Start: 04-09-2013 End: 04-09-2013 *DERIAN Gorman MD Work Phone: Start: 04-09-2013 End: 04-09-2013 Coagulation factor induced.INR assay in platelet poor plasma Gaurang Gorman MD Work Phone: Start: 04-03-2013 End: 04-03-2013 Ecg routine ecg w/least 12 lds w/i&r Shila Michael PA-C Work Phone: Start: 04-03-2013 End: 04-03-2013 Follow Up Appt Other Shila smyth PA-C Work Phone: Start: 04-03-2013 End: 04-03-2013 Follow Up Appt Other Shila smyth PA-C Work Phone: Start: 04-02-2013 End: 04-03-2013 *BMP Gaurang Gorman MD Work Phone: Start: 04-02-2013 End: 04-03-2013 aPTT in Platelet poor plasma by Coagulation assay Gaurang Gorman MD Work Phone: Start: 04-02-2013 End: 04-03-2013 CBC W Auto Differential panel - Blood Gaurang Gorman MD Work Phone: Start: 04-02-2013 End: 10-08-2013 Chest x-ray Gaurang Gorman MD Work Phone: Start: 04-02-2013 End: 04-03-2013 Electrocardiogram, complete Shila Michael PA-C Work Phone: Start: 04-02-2013 End: 04-03-2013 INR in Platelet poor plasma by Coagulation assay Gaurang Gorman MD Work Phone: Start: 04-02-2013 End: 10-08-2013 Left Heart Cath W/Grafts Gaurang Gorman MD Work Phone: Start: 04-02-2013 End: 04-03-2013 *BMP Gaurang Gorman MD Work Phone: Start: 04-02-2013 End: 04-03-2013 aPTT Gaurang Gorman MD Work Phone: Start: 04-02-2013 End: 04-03-2013 CBC W Auto Differential panel - Blood Gaurang Gorman MD Work Phone: Start: 04-02-2013 End: 10-08-2013 Chest x-ray Gaurang Gorman MD Work Phone: Start: 04-02-2013 End: 04-03-2013 Coagulation factor induced.INR assay in platelet poor plasma Gaurang Gorman MD Work Phone: Start: 04-02-2013 End: 04-03-2013 Electrocardiogram, complete Gaurang Gorman MD Work Phone: Start: 04-02-2013 End: 10-08-2013 Left Heart Cath W/Grafts Gaurang Gorman MD Work Phone: Start: 03-04-2013 End: 04-03-2013 *CBC with Differential Gaurang Gorman MD Work Phone: Start: 03-04-2013 End: 03-04-2013 SHAINAN Gaurang Gorman MD Work Phone: Start: 03-04-2013 End: 04-03-2013 Echocardiography Gaurang Gorman MD Work Phone: Start: 03-04-2013 End: 03-04-2013 Follow Up Appt 1 year Marissa Epps Work Phone: Start: 03-04-2013 End: 04-03-2013 INR in Platelet poor plasma by Coagulation assay Gaurang Gorman MD Work Phone: Start: 03-04-2013 End: 04-03-2013 Stress Echocardiogram (treadmill) Gaurang Gorman MD Work Phone: Start: 03-04-2013 End: 04-03-2013 Thyrotropin [Units/volume] in Serum or Plasma Gaurang Gorman MD Work Phone: Start: 03-04-2013 End: 04-03-2013 *CBC with Differential Gaurang Gorman MD Work Phone: Start: 03-04-2013 End: 04-03-2013 Coagulation factor induced.INR assay in platelet poor plasma Gaurang Gorman MD Work Phone: Start: 03-04-2013 End: 03-04-2013 LORENZO Gorman MD Work Phone: Start: 03-04-2013 End: 04-03-2013 Echocardiography Gaurang Gorman MD Work Phone: Start: 03-04-2013 End: 03-04-2013 Follow Up Appt 1 year Marissa Epps Work Phone: Start: 03-04-2013 End: 04-03-2013 Stress Echocardiogram (treadmill) Gaurang Gorman MD Work Phone: Start: 03-04-2013 End: 04-03-2013 Thyroid stimulating hormone (TSH) Gaurang Gorman MD Work Phone: Start: 02-19-2013 End: 02-26-2013 Lipid 1996 panel - Serum or Plasma Derrick Ang MD Start: 02-19-2013 End: 02-26-2013 Lipid panel [AGGREGATE] Derrick Ang MD Start: 01-31-2013 End: 01-31-2013 *Hepatic Function Panel Derrick Ang MD Start: 01-31-2013 End: 01-31-2013 *Hepatic Function Panel Derrick Ang MD Start: 08-20-2012 End: 08-20-2012 eRx Transmitted during this visit (Medicare only) Derrick Ang MD Start: 08-20-2012 End: 08-20-2012 Follow Up Appt 6 months Derrick Ang MD Start: 08-20-2012 End: 08-20-2012 eRx Transmitted during this visit (Medicare only) Derrick Ang MD Start: 08-20-2012 End: 08-20-2012 Follow Up Appt 6 months Derrick Ang MD Start: 02-19-2012 End: 02-25-2012 *Hepatic Function Panel Derrick Ang MD Start: 02-19-2012 End: 02-19-2012 Follow Up Appt 6 months Derrick Ang MD Start: 02-19-2012 End: 02-25-2012 Lipid 1996 panel - Serum or Plasma Derrick Agn MD Start: 02-19-2012 End: 02-25-2012 *Hepatic Function Panel Derrick Ang MD Start: 02-19-2012 End: 02-19-2012 Follow Up Appt 6 months Derrick Ang MD Start: 02-19-2012 End: 02-25-2012 Lipid panel [AGGREGATE] Derrick Ang MD Start: 09-26-2011 End: 09-26-2011 *Hepatic Function Panel Derrick Ang MD Start: 09-26-2011 End: 09-26-2011 Lipid 1996 panel - Serum or Plasma Derrick Ang MD Start: 09-26-2011 End: 09-26-2011 *Hepatic Function Panel Derrick Ang MD Start: 09-26-2011 End: 09-26-2011 Lipid panel [AGGREGATE] Derrick Ang MD Start: 08-25-2011 End: 08-25-2011 Follow Up Appt 6 months Derrick Ang MD Start: 08-25-2011 End: 08-25-2011 Follow Up Appt 6 months Derrick Ang MD Start: 07-03-2011 End: 09-26-2011 24 hour holter monitor Derrick Ang MD Start: 07-03-2011 End: 09-26-2011 Carotid duplex Derrick Ang MD Start: 07-03-2011 End: 07-10-2011 Echocardiography Derrick Ang MD Start: 07-03-2011 End: 07-03-2011 Follow Up Appt 6 weeks Derrick Ang MD Start: 07-03-2011 End: 07-10-2011 Nuclear stress test -adenosine Derrick Ang MD Start: 07-03-2011 End: 09-26-2011 24 hour holter monitor Derrick Ang MD Start: 07-03-2011 End: 09-26-2011 Carotid duplex Derrick Ang MD Start: 07-03-2011 End: 07-10-2011 Echocardiography Derrick Ang MD Start: 07-03-2011 End: 07-03-2011 Follow Up Appt 6 weeks Derrick Ang MD Start: 07-03-2011 End: 07-10-2011 Nuclear stress test -adenosine Derrick Ang MD Start: 09-15-2010 Placement of stent in coronary artery Status post cardiac stent placement Shila Knight RN Start: 09-15-2010 Placement of stent in coronary artery Status post cardiac stent placement Renate Issa Start: 03-20-2005 History of coronary artery bypass grafting Postsurgical aortocoronary bypass status Samantha Reyes MD Work Phone: Plan of Treatment Date Care Activity Detail Author Start: 07-13-2026 Urine microalbumin profile [facility] Start: 04-05-2026 Diabetes Screening Diabetes Screening [facility] Start: 09-30-2025 DIABETES SCREEN DIABETES SCREEN [facility] Start: 09-30-2025 Diabetes Screening Diabetes Screening [facility] Start: 03-28-2025 DIABETES SCREEN DIABETES SCREEN [facility] Start: 09-09-2024 DIABETES SCREEN DIABETES SCREEN [facility] Start: 07-04-2024 DIABETES SCREEN DIABETES SCREEN [facility] Start: 04-05-2024 Hepatitis B surface antibody level LDL Cholesterol [facility] Start: 10-09-2023 End: 01-08-2024 25-hydroxyvitamin D3 [Mass/volume] in Serum or Plasma VITAMIN D 25 HYDROXY Lab Routine Vitamin D deficiency Expected: 10/09/2023 (Approximate), Expires: 01/08/2024 [facility] Work Phone: Immunizations Immunization Date Immunization Notes Care Provider Fa cili 04-27-2023 COVID-19 vaccine, ag e 12+ yr, season (PFIZER-BIONTECH) Immunization Ulises Work Phone: [facility] Work Phone: 02-15-2023 influenza (aIIV4) vaccine, age 65+ yr, quadrivalent, PF (FLUAD QUAD) Samantha Reyes MD Work Phone: [facility] 05-05-2022 COVID-19 booster vaccine, age 12+ yr, bivalent (PFIZER-BIONTECH) Samantha Reyes MD Work Phone: [facility] 04-13-2022 influenza virus vaccine, unspecified formulation Derick Atkins MD Work Phone: [facility] 06-16-2020 COVID-19 vaccine (UNSPECIFIED) Samantha Reyes MD Work Phone: [facility] 02-27-2020 influenza, high-dose , quadrivalent vaccine (FLUZONE HIGH DOSE QUADRIVALENT) Samantha Reyes MD Work Phone: [facility] 03-13-2019 influenza, seasonal, injectable, preservative free Samantha Reyes MD Work Phone: [facility] 02-11-2019 influenza, high dose seasonal, preservative-free Samantha Reyes MD Work Phone: [facility] 02-11-2019 pneumococcal conjuga te vaccine, 13 valent Samantha Reyes MD Work Phone: [facility] 03-13-2018 influenza, seasonal, injectable, preservative free Samantha Reyes MD Work Phone: [facility] 02-25-2018 influenza, high dose seasonal, preservative-free Samantha Reyes MD Work Phone: [facility] 04-23-2017 pneumococcal polysaccharide vaccine, 23 valent Samantha Reyes MD Work Phone: [facility] 03-15-2017 influenza, high dose seasonal, preservative-free Samantha Reyes MD Work Phone: [facility] 03-02-2017 influenza, seasonal, injectable, preservative free Samantha Reyes MD Work Phone: [facility] 07-13-2016 tetanus toxoid, redu ezekiel diphtheria toxoid, and acellular pertussis vaccine, adsorbed Samantha Reyes MD Work Phone: [facility] 04-06-2015 pneumococcal conjuga te vaccine, 13 valent Samantha Reyes MD Work Phone: [facility] Work Phone: 02-24-2015 influenza, high dose seasonal, preservative-free Samantha Reyes MD Work Phone: [facility] Work Phone: 03-06-2014 influenza, high dose seasonal, preservative-free Samantha Reyes MD Work Phone: [facility] 03-07-2013 influenza virus vaccine, unspecified formulation Samantha Reyes MD Work Phone: [facility] 03-11-2012 influenza virus vaccine, unspecified formulation Samantha Reyes MD Work Phone: [facility] 12-15-2011 zoster vaccine, live Samantha mora MD Work Phone: [facility] 02-25-2011 influenza virus vaccine, unspecified formulation Samantha Reyes MD Work Phone: [facility] Work Phone: 03-15-2009 influenza virus vaccine, unspecified formulation Samantha Reyes MD Work Phone: [facility] Work Phone: 03-20-2005 influenza virus vaccine, whole virus Samantha Reyes MD Work Phone: [facility] Work Phone: 03-20-2005 pneumococcal polysaccharide vaccine, 23 valent Samantha Reyes MD Work Phone: [facility] Work Phone: 12-03-2004 diphtheria and tetan us toxoids, adsorbed for pediatric use Samantha Reyes MD Work Phone: [facility] Payers Date Payer Category Payer Private Health Insurance [facility] CHOICE PLUS [id number] 2018-Present [phone] [address] [place] [address] O [id number] 2018 Private Health Insurance [facility] CHOICE PLUS [id number] 2018-Present [phone] [address] [place] [id number] [facility] [id number] 2018 Unknown [id number] 2005 Medicare MEDICARE MEDICAR E A AND B [id number] 2005-Present [phone] [place] [address] Medicare [id number] 2005 Medicare MEDICARE MEDICAR E A AND B [id number] 2005-Present [phone] [place] [address] Medicare [id number] 2005 Medicare [id number] Social History Date Type Detail Facility Start: 01-02-2022 Tobacco smoking stat [facility] Ex-smoker [facility] Work Phone: End: 03-14-2000 History of tobacco use Current smoker [facility] Work Phone: End: 03-14-2000 History of tobacco use Cigarette Smoker [facility] Work Phone: Start: 07-04-2021 End: 04-10-2023 Alcohol intake Current drinker of alcohol (finding) [facility] Start: 10-28-2013 History SDOH Alcohol Comment Rarely. [facility] Start: 10-28-2013 End: 01-02-2022 Tobacco Comment Parents smoked in childhood home. Spouse smoked pipe and cigar occasionally in home. [facility] Start: 1940 Sex Assigned At Not on file [facility] Start: 08-23-2021 End: 04-04-2022 Exposure to SARS-CoV-2 (event) Not sure [facility] Start: 09-04-2021 End: 09-14-2021 Exposure to SARS-CoV-2 (event) Unable to assess [facility] Start: 05-02-2020 End: 01-02-2022 Cigarettes smoked current (pack per day) - Reported 0.5 [facility] Work Phone: Start: 01-02-2022 Tobacco use and exposure Smokeless tobacco non-user [facility] Start: 05-02-2020 End: 10-05-2022 Tobacco use panel [facility] Work Phone: Adult Depression Screening Assessment 0 [facility] Work Phone: Start: 10-05-2022 Sexual orientation Heterosexual (eddie larsen) [facility] Clinical Notes 09-02-2021 to 04-10-2023 Samantha Reyes MD - 04/10/2023 3:00 PM ESTTelephone Encounter - Ame Donohue LPN - 03/15/2023 8:47 AM EDTTelephone Encounter - Samantha Reyes MD - 03/15/2023 8:46 AM EDT Note Date & Type Note Facility 04-10-2023 Note HNO ID: [id number] Author: Samantha Reyes MD Service: ? Author Type: Physician Type: Progress Notes Filed: 04/10/2023 4:12 PM Note Text: Chief Complaint Patient presents with: F/U 6 Month HPI Sandrine Rivers is a 82 year old female who presents here today for 6 month follow up. No bowel, gi, or urinary issues. Taking Carafate 1 gram QID and Prevacid 30 mg daily to control GERD sx. Has some incontinence issues, taking Mybetriq 50 mg daily and Ditropan XL 10 mg once daily. Follows with Dr. Parks. Hem/Onc: Previously followed with Dr. Landers for ovarian cancer, follow up as she is cancer free . Monitoring CBC. HTN: Taking Altace 10 mg 2 pills once daily and HCTZ 12.5 mg daily. Notes no chest pain today, did have on 04/08/23. Occasional dizziness and sob when moving too quickly. Has appt with [facility] this week for follow up. Checks BP occ at home, reports it's been doing real good. Also taking Lasix 40 mg daily (0.5 tab bid) and Potassium 20 mEq once daily. CKD - Stable, slightly elevated. Monitoring through routine labs. Thyroid: Taking Synthroid 125 mcg daily. No missed dosages. A-fib/PE/DVT: Taking Eliquis 5 mg BID. Cardioversion done in Jun and doing well since. Also had cardioversion done on 03/21/23. Overall feels that she's doing well. Did go to ED on 04/08/23 for chest pain. Lipid/CAD: Follows with [employer] at [facility]. Tries to watch diet but denies much exercise. Taking Crestor 40 mg daily and Niacin ER 500 mg BID. Has lost weight since her last visit. Vit D - Taking Vit D3 50,000 international unit(s) once weekly. Pt also seen at [facility] ED on 04/08/23 for chest pain, which may have been related to reflux which pt felt she may have had. Also seen in ED on 03/21/23 for afib and had to be converted. Just changed Drug Stores to [facility]. HM - Will be getting Covid vaccines through Pharmacy. Shingles/RSV through Pharmacy due to Medicare insurance. Past medical history, appointments, medications, allergies reviewed. Previous Medical History PAST MEDICAL HISTORY Diagnosis Date Diarrhea Diverticulosis of small intestine (without mention of hemorrhage) DVT of leg (deep venous thrombosis) (HCC) Essential hypertension, benign FH: atrial fibrillation Heart attack (HCC) 2000 Hernia Internal hemorrhoids without mention of complication Malignant neoplasm of ovary (HCC) Other and unspecified hyperlipidemia Other pulmonary embolism and infarction Other specified acquired hypothyroidism Postsurgical aortocoronary bypass status Pulmonary embolism (HCC) hx in Sn[place] Symptomatic menopausal or female climacteric states Unspecified cardiovascular disease Urinary incontinence Previous Surgical History PAST SURGICAL HISTORY Procedure Laterality Date ANESTHESIA LUMBAR REGION NOS disc procedure, 2 levels APPENDECTOMY CABG, ARTERIAL, FOUR+ 02/26/2000 COLONOSCOPY 09/27/2004 COLONOSCOPY FLX DX W/COLLJ SPEC WHEN PFRMD 12/07/2014 Colonoscopy ESOPHAGOGASTRODUODENOSCOPY TRANSORAL DIAGNOSTIC 01/23/2012 EGD HEART SURGERY HX LIG/TRNSXJ FLP TUBE ABDL/VAG APPR UNI/BI NEUROPLASTY AND/TRANSPOS MEDIAN NRV CARPAL TUNNE 09/11/2014 Left CTR NEUROPLASTY AND/TRANSPOSITION ULNAR NERVE ELBOW 09/11/2014 Ulnar nerve decompression left elbow OOPHORECTOMY PARTIAL/TOTAL UNI/BI 10/19/2007 Ovarian cancer, [facility] PAST SURGICAL HISTORY OF 05/28/1973 first rib on the left side removed. RETRIEV INTRAVASC FOREGN BODY 02/26/2012 IVC REMOVAL S SLING BLADR PELVI TOTL 4821 10/26/2005 Obtyrex midurethral sling STENT PLACEMENT 2005 approx per pt cardiac x 2 THYROIDECTOMY TOTAL/COMPLETE 02/02/2014 TOTAL - percancerous. TONSILLECTOMY PRIMARY/SECONDARY AGE 12/> TOTAL ABDOMINAL HYSTERECT W/WO RMVL TUBE OVARY 10/19/2007 for ovarian cancer URODYNAMICS 09/09/[address] Shea Family History FAMILY HISTORY Problem Relation Age of Onset Hypertension Mother Stroke Mother other (ceribral hemorige) Maternal Grandfather other (htn) Maternal Grandfather Lipids Sister Lipids Brother Hypertension Sister Hypertension Brother Patient Allergies ALLERGIES Allergen Reactions Streptokinase Hives Poison Araceli Poison [place] Extract Itching Streptokinesis [Oth* hives Current Medications Current Outpatient Medications on File Prior to Visit Medication Sig sucralfate (CARAFATE) 1 gram tablet Take 1 tablet by mouth before meals and at bedtime. rosuvastatin (CRESTOR) 40 mg tablet Take 1 tablet by mouth once daily. niacin ER (NIASPAN) 500 mg tablet Take 1 tablet by mouth two times a day. furosemide (LASIX) 40 mg tablet Take 1 tablet by mouth once daily. hydroCHLOROthiazide (MICROZIDE) 12.5 mg capsule Take 1 capsule by mouth once daily. potassium chloride 20 mEq TbER Take 1 tablet by mouth once daily. ramipril (ALTACE) 10 mg capsule Take two (2) by mouth once daily. lansoprazo (more content not included)... [facility] 04-10-2023 History of Presen t illness Narrative Chief Complaint Patient presents with: F/U 6 Month HPI Sandrine Rivers is a 82 year old female who presents here today for 6 month follow up. No bowel, gi, or urinary issues. Taking Carafate 1 gram QID and Prevacid 30 mg daily to control GERD sx. Has some incontinence issues, taking Mybetriq 50 mg daily and Ditropan XL 10 mg once daily. Follows with Dr. Parks. Hem/Onc: Previously followed with Dr. Landers for ovarian cancer, follow up as she is cancer free . Monitoring CBC. HTN: Taking Altace 10 mg 2 pills once daily and HCTZ 12.5 mg daily. Notes no chest pain today, did have on 04/08/23. Occasional dizziness and sob when moving too quickly. Has appt with [facility] this week for follow up. Checks BP occ at home, reports it's been doing real good. Also taking Lasix 40 mg daily (0.5 tab bid) and Potassium 20 mEq once daily. CKD - Stable, slightly elevated. Monitoring through routine labs. Thyroid: Taking Synthroid 125 mcg daily. No missed dosages. A-fib/PE/DVT: Taking Eliquis 5 mg BID. Cardioversion done in Jun and doing well since. Also had cardioversion done on 03/21/23. Overall feels that she's doing well. Did go to ED on 04/08/23 for chest pain. Lipid/CAD: Follows with [employer]. Tries to watch diet but denies much exercise. Taking Crestor 40 mg daily and Niacin ER 500 mg BID. Has lost weight since her last visit. Vit D - Taking Vit D3 50,000 international unit(s) once weekly. Pt also seen at [facility] ED on 04/08/23 for chest pain, which may have been related to reflux which pt felt she may have had. Also seen in ED on 03/21/23 for afib and had to be converted. Just changed Drug Stores to [facility]. HM - Will be getting Covid vaccines through Pharmacy. Shingles/RSV through Pharmacy due to Medicare insurance. Past medical history, appointments, medications, allergies reviewed. Previous Medical History PAST MEDICAL HISTORY Diagnosis Date Diarrhea Diverticulosis of small intestine (without mention of hemorrhage) DVT of leg (deep venous thrombosis) (HCC) Essential hypertension, benign FH: atrial fibrillation Heart attack (HCC) 1999 Hernia Internal hemorrhoids without mention of complication Malignant neoplasm of ovary (HCC) Other and unspecified hyperlipidemia Other pulmonary embolism and infarction Other specified acquired hypothyroidism Postsurgical aortocoronary bypass status Pulmonary embolism (HCC) hx in [place] Symptomatic menopausal or female climacteric states Unspecified cardiovascular disease Urinary incontinence Previous Surgical History PAST SURGICAL HISTORY Procedure Laterality Date ANESTHESIA LUMBAR REGION NOS disc procedure, 2 levels APPENDECTOMY CABG, ARTERIAL, FOUR+ 02/26/2000 COLONOSCOPY 09/27/2004 COLONOSCOPY FLX DX W/COLLJ SPEC WHEN PFRMD 12/07/2014 Colonoscopy ESOPHAGOGASTRODUODENOSCOPY TRANSORAL DIAGNOSTIC 01/23/2012 EGD HEART SURGERY HX LIG/TRNSXJ FLP TUBE ABDL/VAG APPR UNI/BI NEUROPLASTY &/TRANSPOS MEDIAN NRV CARPAL TUNNE 09/11/2014 Left CTR NEUROPLASTY &/TRANSPOSITION ULNAR NERVE ELBOW 09/11/2014 Ulnar nerve decompression left elbow OOPHORECTOMY PARTIAL/TOTAL UNI/BI 10/19/2007 Ovarian cancer, [facility] PAST SURGICAL HISTORY OF 05/28/1973 first rib on the left side removed. RETRIEV INTRAVASC FOREGN BODY 02/26/2012 IVC REMOVAL S SLING BLADR PELVI TOTL 4821 10/26/2005 Obtyrex midurethral sling STENT PLACEMENT 2004 approx per pt cardiac x 2 THYROIDECTOMY TOTAL/COMPLETE 02/02/2014 TOTAL - percancerous. TONSILLECTOMY PRIMARY/SECONDARY AGE 12/> TOTAL ABDOMINAL HYSTERECT W/WO RMVL TUBE OVARY 10/19/2007 for ovarian cancer URODYNAMICS 09/09/[address] Shea Family History FAMILY HISTORY Problem Relation Age of Onset Hypertension Mother Stroke Mother other (ceribral hemorige) Maternal Grandfather other (htn) Maternal Grandfather Lipids Sister Lipids Brother Hypertension Sister Hypertension Brother Patient Allergies ALLERGIES Allergen Reactions Streptokinase Hives Poison Araceli Poison [place] Extract Itching Streptokinesis [Oth* hives Current Medications Current Outpatient Medications on File Prior to Visit Medication Sig sucralfate (CARAFATE) 1 gram tablet Take 1 tablet by mouth before meals and at bedtime. rosuvastatin (CRESTOR) 40 mg tablet Take 1 tablet by mouth once daily. niacin ER (NIASPAN) 500 mg tablet Take 1 tablet by mouth two times a day. furosemide (LASIX) 40 mg tablet Take 1 tablet by mouth once daily. hydroCHLOROthiazide (MICROZIDE) 12.5 mg capsule Take 1 capsule by mouth once daily. potassium chloride 20 mEq TbER Take 1 tablet by mouth once daily. ramipril (ALTACE) 10 mg capsule Take two (2) by mouth once daily. lansoprazole (PREVACID) 30 mg capsule Take 1 capsule by mouth daily before breakfast. 1/2 hr before meal. levothyroxine (LEVOXYL) 125 mcg tablet Take 1 tablet by mouth once daily. Take on empty stomach. For thyroid. cholecalciferol, Vitamin D3, (VITAMIN D3) 1,250 mcg (50,000 unit) cap capsule Take 1 capsule by mouth one time a week. benzonatate (TESSALON PERLES) 100 mg capsule Take 2 capsules by mouth three times daily as needed. apixaban (ELIQUIS) 5 mg tab(s) Take 5 mg by mouth twice daily. mirabegron (MYRBETRIQ) 50 mg Tb24 Take 1 tablet by mouth once daily. albuterol HFA (PROAIR HFA) 90 mcg/actuation inhaler Inhale 2 Puffs as instructed every 6 hours as needed. nitroglycerin(NITROQUICK 0.4 MG SUBLINGUAL TAB) ASPIRIN 81 MG TAB Take one(1) tablet daily. CALCIUM 500 MG TAB Take one(1) tablet two(2) times daily. TYLENOL PM 25 MG-500 MG TAB Take two(2) at bedtime ATENOLOL 50 MG TAB Take one(1) tablet two(2) times daily. No current facility-administered medications on file prior to visit. Social History Social History Tobacco Use Smoking status: Former Packs/day: 0.50 Years: 30.00 Additional pack years: 0.00 Total pack years: 15.00 Types: Cigarettes Quit date: 03/14/2000 Years since quittin.0 Smokeless tobacco: Never Tobacco comments: Parents smoked in childhood home. Spouse smoked pipe and cigar occasionally in home. Vaping Use Vaping Use: Never used Substance Use Topics Alcohol use: Yes Comment: Rarely. Drug use: No EXAM: BP 114/70 (BP Site: Left Arm, BP Position: Sitting, BP Cuff Size: Large Adult) Pulse 60 Resp 18 Wt 90.6 kg (199 lb 12.8 oz) LMP 05/28/1990 BMI 34.30 kg/m General Appearance: Well appearing, alert, in no acute distress, well-hydrated, well nourished. and Obese. Neck: Supple, no adenopathy; thyroid symmetric, normal size, no bruits. Lungs: Lungs clear to auscultation. No wheezing, rhonchi, rales.. Heart: RRR without murmur, gallop, or rubs. No ectopy. Health Maintenance List RSV Vaccine(1 - 1-dose 60+ series) Never done Shingrix Vaccine(2 of 3) due on 02/09/2012 Covid-19 Vaccine( season) due on 01/26/2023 LDL Cholesterol due on 10/01/2023 Diabetes Screening due on 09/30/2025 DTaP,Tdap,Td Vaccine(3 - Td or Tdap) due on 07/13/2026 Bone Density Screening Completed Influenza Vaccine Completed Advance Directive Discussion Completed Depression Assessment Completed Pneumococcal Vaccine: 65+ Completed HPV Vaccine Aged Out Colorectal Cancer Screening Discontinued Data reviewed Appointment on 04/05/2023 Component Date Value Protein, Total 04/05/2023 6.1 (L) Albumin 04/05/2023 4.1 Calcium, Total 04/05/2023 10.1 Bilirubin, Total 04/05/2023 0.3 Alkaline Phosphatase 04/05/2023 38 AST 04/05/2023 17 ALT 04/05/2023 12 Glucose 04/05/2023 102 (H) BUN 04/05/2023 31 (H) Creatinine 04/05/2023 1.43 (H) Sodium 04/05/2023 142 Potassium 04/05/2023 3.8 Chloride 04/05/2023 103 CO2 04/05/2023 26 Anion Gap 04/05/2023 13 Estimated Glomerular Sylvain* 04/05/2023 37 (L) Cholesterol, Total 04/05/2023 129 Triglyceride 04/05/2023 218 (H) HDL Cholesterol 04/05/2023 42 Non HDL Cholesterol 04/05/2023 87 Fasting Time 04/05/2023 16 VLDL Cholesterol 04/05/2023 44 (H) TC:HDL Ratio 04/05/2023 3.07 LDL Cholesterol 04/05/2023 43 LDL:HDL Ratio 04/05/2023 1.02 TSH 04/05/2023 0.576 WBC 04/05/2023 7.05 RBC 04/05/2023 4.00 Hemoglobin 04/05/2023 11.2 (L) Hematocrit 04/05/2023 36.2 MCV 04/05/2023 90.5 MCH 04/05/2023 28.0 MCHC 04/05/2023 30.9 RDW-CV 04/05/2023 12.1 Platelet Count 04/05/2023 257 MPV 04/05/2023 11.1 Absolute nRBC 04/05/2023 <0.01 Office Visit on 02/09/2023 Component Date Value GLUCOSE UA (POCT) 02/09/2023 Negative BILIRUBIN UA (POCT) 02/09/2023 Negative KETONE UA (POCT) 02/09/2023 Negative SPECIFIC GRAVITY UA (POC* 02/09/2023 1.010 HEMOGLOBIN/BLOOD UA (PO* 02/09/2023 Small (A) PH UA (POCT) 02/09/2023 6.5 PROTEIN UA (POCT) 02/09/2023 Trace (A) UROBILINOGEN UA (POCT) 02/09/2023 0.2 NITRITE UA (POCT) 02/09/2023 Negative LEUKOCYTES UA (POCT) 02/09/2023 Moderate (A) COLOR UA (POCT) 02/09/2023 Yellow CLARITY UA (POCT) 02/09/2023 Clear Culture, Urine 02/09/2023 Mixed microbiota, including predominantly: Culture, Urine 02/09/2023 >=100,000 CFU/ml Streptococcus agalactiae (group b streptococcus) (A) ASSESSMENT/PLAN: 1. Essential hypertension, benign - ICD9: 401.1, ICD10: I10 (primary diagnosis) - Controlled - Continue current medications - Recommend home blood pressure monitoring, to bring results to next visit - Encouraged sodium restriction, DASH or Mediterranean diet - Recommend regular aerobic exercise - COMP METABOLIC PANEL - LIPID PANEL BASIC - CBC + DIFF 2. Hyperlipidemia, unspecified hyperlipidemia type - ICD9: 272.4, ICD10: E78.5 - Controlled - Continue current medications - Counseled on healthy diet and regular exercise - COMP METABOLIC PANEL - LIPID PANEL BASIC 3. Chronic kidney disease, stage 3a (HCC) - ICD9: 585.3, ICD10: N18.31 - Slight elevated, continue to monitor with labs - COMP METABOLIC PANEL 4. Hypothyroidism, unspecified type - ICD9: 244.9, ICD10: E03.9 - Instructed patient on importance of taking on an empty stomach either first thing in the morning or at bedtime. - TSH BLD in 6 months 5. Gastroesophageal reflux disease, unspecified whether esophagitis present - ICD9: 530.81, ICD10: K21.9 - Continue current medication regimen. 6. Vitamin D deficiency - ICD9: 268.9, ICD10: E55.9 - Continue current medication regimen. - check labs in 6 months - VITAMIN D 25 HYDROXY 7. Urinary incontinence, unspecified type - ICD9: 788.30, ICD10: R32 - Cont f/u with Urology - Continue current medication regimen. 8. Atherosclerosis of [place] coronary artery of [place] heart without angina pectoris - ICD9: 414.01, ICD10: I25.10 - Continue current medication regimen. 9. Atrial fibrillation, unspecified type (HCC) - ICD9: 427.31, ICD10: I48.91 - Recent cardioversion - Cont f/u with Cardio - Continue current medication regimen. 10. Deep vein thrombosis (DVT) of lower extremity, unspecified chronicity, unspecified laterality, unspecified vein (HCC) - ICD9: 453.40, ICD10: I82.409 - Continue current medication regimen. 11. Malignant neoplasm of ovary, unspecified laterality (HCC) - ICD9: 183.0, ICD10: C56.9 - Cont to monitor - CBC + DIFF 6 mo f/u with labs. I agree with the Chief Complaint, ROS, and Past Histories independently gathered by the clinical pharmacy retail support specialist and the remaining scribed note accurately describes my personal service to the patient. Medical Decision Making: Problems: Moderate: 2+ stable chronic illnesses Data: Unique test result(s) reviewed: 3+ Unique test(s) ordered: 3+ Risk: Moderate: Drug management Medical Decision Making Level: 4 - Moderate Samantha Reyes MD The documentation for this note was completed by Deborah Carlisle Ma acting as scribe for Samantha Reyes MD. April 10, 2023 3:16 PM. Deborah Carlisle Ma documented in this encounter [facility] 03-15-2023 Miscellaneous Notes Spoke with pt and information listed below given. Pt verbalizes understanding. Ame Donohue LPN OK to refill as ordered Samantha Reyes MD Patient has been identified by name and date of : Yes, Provider Date Time Patient phones for refill(s): Requested Prescriptions Pending Prescriptions Disp Refills sucralfate (CARAFATE) 1 gram tablet 120 tablet 11 Sig: Take 1 tablet by mouth before meals and at bedtime. rosuvastatin (CRESTOR) 40 mg tablet 30 tablet 11 Sig: Take 1 tablet by mouth once daily. niacin ER (NIASPAN) 500 mg tablet 60 tablet 11 Sig: Take 1 tablet by mouth two times a day. furosemide (LASIX) 40 mg tablet 90 tablet 3 Sig: Take 1 tablet by mouth once daily. hydroCHLOROthiazide (MICROZIDE) 12.5 mg capsule 90 capsule 3 Sig: Take 1 capsule by mouth once daily. potassium chloride 20 mEq TbER 90 tablet 4 Sig: Take 1 tablet by mouth once daily. ramipril (ALTACE) 10 mg capsule 60 capsule 11 Sig: Take two (2) by mouth once daily. lansoprazole (PREVACID) 30 mg capsule 30 capsule 11 Sig: Take 1 capsule by mouth daily before breakfast. 1/2 hr before meal. levothyroxine (LEVOXYL) 125 mcg tablet 30 tablet 11 Sig: Take 1 tablet by mouth once daily. Take on empty stomach. For thyroid. cholecalciferol, Vitamin D3, (VITAMIN D3) 1,250 mcg (50,000 unit) cap capsule 12 capsule 3 Sig: Take 1 capsule by mouth one time a week. Patient requests scripts to [facility], [facility]. Date of last office visit in primary care: 10/05/2022 Date of next office visit in primary care: 04/10/2023 Last 2 Encounter Wt Readings: Date: Wt: 02/09/2023 91.2 kg (201 lb) 10/05/2022 94.8 kg (209 lb) Previous labs/tests for medication: Thyroid: TSH Date Value 09/30/2022 0.981 mIU/L 07/04/2021 3.280 uU/mL Cholesterol: HDL Cholesterol (mg/dL) Date Value 09/30/2022 44 07/04/2021 56 LDL Cholesterol (mg/dL) Date Value 09/30/2022 47 07/04/2021 55 ALT (U/L) Date Value 09/30/2022 13 07/04/2021 25 Non HDL Cholesterol (mg/dL) Date Value 09/30/2022 94 07/04/2021 100 Blood Pressure: BUN (mg/dL) Date Value 09/30/2022 19 07/04/2021 18 Sodium (mmol/L) Date Value 09/30/2022 143 07/04/2021 141 Last 1 Encounter BP Readings: Date: BP: 02/09/2023 132/78 Please advise. Thank you. Sandrine Vincent RN. documented in this encounter [facility] 02-14-2023 Miscellaneous Notes Reach out and speak with patient. She states she feels 110 percent better. Patient encouraged to follow up with PCP if sx return. Urine culture reveals bacterial growth. Initial sensitivity does not make notion related to macrobid. A request was made, and returned same result. Please call patient and inquire as to whether her sx are improving. Ensure she has follow up with Dr. Reyes or one of cohorts. documented in this encounter [facility] 02-09-2023 Note HNO ID: [id number] Author: Derick Atkins MD Service: ? Author Type: Physician Type: Progress Notes Filed: 02/09/2023 9:21 AM Note Text: Patient presents with: Urinary Frequency: burning with urination x 2 days HPI: Symptoms for a couple days. Dysuria: Yes Frequency: Yes Hematuria: No Nausea: No Fever or chills: chills and felt lousy and tired yesterday Back pain: Yes Abdominal pain: No Prior UTI: Yes Personal history of kidney stones: No Family history of kidney stones: brother Urologist (Charly) recently added a new overactive bladder medicine. MEDICATIONS: Current Outpatient Medications Medication Sig levothyroxine (LEVOXYL) 125 mcg tablet Take 1 tablet by mouth once daily. Take on empty stomach. For thyroid. cholecalciferol, Vitamin D3, (VITAMIN D3) 1,250 mcg (50,000 unit) cap capsule Take 1 capsule by mouth one time a week. benzonatate (TESSALON PERLES) 100 mg capsule Take 2 capsules by mouth three times daily as needed. apixaban (ELIQUIS) 5 mg tab(s) Take 5 mg by mouth twice daily. mirabegron (MYRBETRIQ) 50 mg Tb24 Take 1 tablet by mouth once daily. potassium chloride 20 mEq TbER Take 1 tablet by mouth once daily. hydroCHLOROthiazide (MICROZIDE) 12.5 mg capsule Take 1 capsule by mouth once daily. (Patient taking differently: Take 25 mg by mouth once daily.) rosuvastatin (CRESTOR) 40 mg tablet Take 1 tablet by mouth once daily. ramipril (ALTACE) 10 mg capsule Take two (2) by mouth once daily. sucralfate (CARAFATE) 1 gram tablet Take 1 tablet by mouth before meals and at bedtime. lansoprazole (PREVACID) 30 mg capsule Take 1 capsule by mouth daily before breakfast. 1/2 hr before meal. niacin ER (NIASPAN) 500 mg tablet Take 1 tablet by mouth twice daily. furosemide (LASIX) 40 mg tablet Take 1 tablet by mouth once daily. (Patient taking differently: Take 20 mg by mouth once daily.) albuterol HFA (PROAIR HFA) 90 mcg/actuation inhaler Inhale 2 Puffs as instructed every 6 hours as needed. nitroglycerin(NITROQUICK 0.4 MG SUBLINGUAL TAB) ASPIRIN 81 MG TAB Take one(1) tablet daily. CALCIUM 500 MG TAB Take one(1) tablet two(2) times daily. TYLENOL PM 25 MG-500 MG TAB Take two(2) at bedtime ATENOLOL 50 MG TAB Take one(1) tablet two(2) times daily. No current facility-administered medications for this visit. ALLERGIES: ALLERGIES Allergen Reactions Streptokinase Hives Poison Araceli Poison [place] Extract Itching Streptokinesis [Oth* hives VITALS: BP 132/78 Pulse 86 Temp 36.1 ?C (96.9 ?F) Resp 16 Wt 91.2 kg (201 lb) LMP 05/28/1990 SpO2 96% BMI 34.50 kg/m? PHYSICAL EXAM: GEN: NAD HEENT: EOMI, conjunctiva clear, HEART: regular rate and rhythm, no murmurs LUNGS: clear to auscultation, no wheezes or crackles, no increased WOB ABDOMEN: Soft, nondistended, no masses, no suprapubic tenderness BACK: No CVA tenderness Component Latest Ref Rng AND Units 09/30/2022 eGFR >=60 mL/min/1.73mA? 51 (L) ASSESSMENT/PLAN: 1. Urinary frequency - ICD9: 788.41, ICD10: R35.0 - UA positive for jose daniel esterase, hematuria, and proteinuria - UA DIP, URINE (POC) - URINE CULTURE - will notify if no clear infection or resistance. - NITROFURANTOIN MONOHYDRATE AND MACROCRYSTAL 100 MG ORAL CAP Derick Atkins MD [facility] 02-09-2023 History of Presen t illness Narrative Patient presents with: Urinary Frequency: burning with urination x 2 days HPI: Symptoms for a couple days. Dysuria: Yes Frequency: Yes Hematuria: No Nausea: No Fever or chills: chills and felt lousy and tired yesterday Back pain: Yes Abdominal pain: No Prior UTI: Yes Personal history of kidney stones: No Family history of kidney stones: brother Urologist (Charly) recently added a new overactive bladder medicine. MEDICATIONS: Current Outpatient Medications Medication Sig levothyroxine (LEVOXYL) 125 mcg tablet Take 1 tablet by mouth once daily. Take on empty stomach. For thyroid. cholecalciferol, Vitamin D3, (VITAMIN D3) 1,250 mcg (50,000 unit) cap capsule Take 1 capsule by mouth one time a week. benzonatate (TESSALON PERLES) 100 mg capsule Take 2 capsules by mouth three times daily as needed. apixaban (ELIQUIS) 5 mg tab(s) Take 5 mg by mouth twice daily. mirabegron (MYRBETRIQ) 50 mg Tb24 Take 1 tablet by mouth once daily. potassium chloride 20 mEq TbER Take 1 tablet by mouth once daily. hydroCHLOROthiazide (MICROZIDE) 12.5 mg capsule Take 1 capsule by mouth once daily. (Patient taking differently: Take 25 mg by mouth once daily.) rosuvastatin (CRESTOR) 40 mg tablet Take 1 tablet by mouth once daily. ramipril (ALTACE) 10 mg capsule Take two (2) by mouth once daily. sucralfate (CARAFATE) 1 gram tablet Take 1 tablet by mouth before meals and at bedtime. lansoprazole (PREVACID) 30 mg capsule Take 1 capsule by mouth daily before breakfast. 1/2 hr before meal. niacin ER (NIASPAN) 500 mg tablet Take 1 tablet by mouth twice daily. furosemide (LASIX) 40 mg tablet Take 1 tablet by mouth once daily. (Patient taking differently: Take 20 mg by mouth once daily.) albuterol HFA (PROAIR HFA) 90 mcg/actuation inhaler Inhale 2 Puffs as instructed every 6 hours as needed. nitroglycerin(NITROQUICK 0.4 MG SUBLINGUAL TAB) ASPIRIN 81 MG TAB Take one(1) tablet daily. CALCIUM 500 MG TAB Take one(1) tablet two(2) times daily. TYLENOL PM 25 MG-500 MG TAB Take two(2) at bedtime ATENOLOL 50 MG TAB Take one(1) tablet two(2) times daily. No current facility-administered medications for this visit. ALLERGIES: ALLERGIES Allergen Reactions Streptokinase Hives Poison Araceli Poison [place] Extract Itching Streptokinesis [Oth* hives VITALS: BP 132/78 Pulse 86 Temp 36.1 C (96.9 F) Resp 16 Wt 91.2 kg (201 lb) LMP 05/28/1990 SpO2 96% BMI 34.50 kg/m PHYSICAL EXAM: GEN: NAD HEENT: EOMI, conjunctiva clear, HEART: regular rate and rhythm, no murmurs LUNGS: clear to auscultation, no wheezes or crackles, no increased WOB ABDOMEN: Soft, nondistended, no masses, no suprapubic tenderness BACK: No CVA tenderness Component Latest Ref Rng & Units 09/30/2022 eGFR >=60 mL/min/1.73m 51 (L) ASSESSMENT/PLAN: 1. Urinary frequency - ICD9: 788.41, ICD10: R35.0 - UA positive for jose daniel esterase, hematuria, and proteinuria - UA DIP, URINE (POC) - URINE CULTURE - will notify if no clear infection or resistance. - NITROFURANTOIN MONOHYDRATE & MACROCRYSTAL 100 MG ORAL CAP Derick Atkins MD documented in this encounter [facility] 01-26-2023 Miscellaneous Notes The following approved medication requests have been transmitted electronically. Requested Prescriptions Pending Prescriptions Disp Refills levothyroxine (LEVOXYL) 125 mcg tablet 30 tablet 11 Sig: Take 1 tablet by mouth once daily. Take on empty stomach. For thyroid. Charles Chavez APRN.MIKA Patient has been identified by name and date of : Yes Last office visit in this department: 10/05/2022 Labs-09/30/22 NOV-04/10/23 RX INSTRUCTIONS: Patient aware RX will be sent to pharmacy. No need to notify patient. Patient phones requesting refills as follows: Requested Prescriptions Pending Prescriptions Disp Refills levothyroxine (LEVOXYL) 125 mcg tablet 30 tablet 11 Sig: Take 1 tablet by mouth once daily. Take on empty stomach. For thyroid. Please review and advise. Anita Proctor documented in this encounter [facility] 12-04-2022 Miscellaneous Notes Order & face sheet printed & faxed to Dr. Parks's office. Patient notified. Yee Montalvo MA Please let the patient know that I have placed a referral. She will need to call to schedule appointment. Charles Chavez APRN.CNP Patient calls and states that she had previously seen a urologist that has moved up to [place]. Patient states that she does not want to travel that far. Patient asking if provider can write a urology referral. Patient would like referral to be sent to Dr. Parks's office. Please review and advise, Ruby Morris RN documented in this encounter [facility] 10-05-2022 Note HNO ID: [id number] Author: Samantha Reyes MD Service: ? Author Type: Physician Type: Progress Notes Filed: 10/05/2022 5:22 PM Note Text: Chief Complaint Patient presents with: F/U 6 Month HPI Sandrine Rivers is a 82 year old female who presents here today for a 6 month follow up. Pt here today for her routine visit. GI/Uro - Denies any stomach or bowel issues. Taking Carafate 1 gram with meals and at bedtime. Follows with [employer] for incontinence issues, on Mybetriq 50 mg daily. GERD - Stable with use of Carafate 1 gram daily and Prevacid 30 mg once daily. Thyroid - On current regimen of Synthroid 125 mcg once daily. Doing well on this dosage. Lipid/CAD - Tries to watch diet. Not able to exercise a whole lot, but is improving with having cardioversion done in June. Follows with Cardio, Dr. Waite routinely, every 6 months. On current regimen of Crestor 40 mg daily and Nicacin ER 500 mg bid. Does well with medication. HTN - Checks BP at home, stable. Denies any chest pain, sob, dizziness or lower leg edema. On current regimen of Ramipril 10 mg 2 caps once daily, HTZ 12.5 mg once daily, Potassium Chloride 20 meq once daily and Lasix 40 mg daily. Afib/DVT/PE - Currently taking Eliquis 5 mg bid, formerly on Coumadin and managed by [employer]. Had Cardioversion done in June, doing well since that time. Starting to regain energy. Hem/Onc - Previously followed with Dr. Landers for ovarian cancer. Recently dismissed as she is cancer free . Pt is able to f/u if needed at any time. Mammogram to be completed every other year. HM - Shingles discussed, pt to obtain at Pharmacy due to Medicare. Declines feeling down, depressed or hopeless. Depression screening tool completed and reviewed. Based on score and interview, patient is not at risk for depression. Screening tool discussed with patient, and I recommended no further intervention at this time Has living will. Past medical history, appointments, medications, allergies reviewed. Previous Medical History PAST MEDICAL HISTORY Diagnosis Date Diarrhea Diverticulosis of small intestine (without mention of hemorrhage) DVT of leg (deep venous thrombosis) (HCC) Essential hypertension, benign FH: atrial fibrillation Heart attack (HCC) 1999 Hernia Internal hemorrhoids without mention of complication Malignant neoplasm of ovary (HCC) Other and unspecified hyperlipidemia Other pulmonary embolism and infarction Other specified acquired hypothyroidism Postsurgical aortocoronary bypass status Pulmonary embolism (HCC) hx in [place] Symptomatic menopausal or female climacteric states Unspecified cardiovascular disease Urinary incontinence Previous Surgical History PAST SURGICAL HISTORY Procedure Laterality Date ANESTHESIA LUMBAR REGION NOS disc procedure, 2 levels APPENDECTOMY CABG, ARTERIAL, FOUR+ 02/26/2000 COLONOSCOPY 09/27/2004 COLONOSCOPY FLX DX W/COLLJ SPEC WHEN PFRMD 12/07/2014 Colonoscopy ESOPHAGOGASTRODUODENOSCOPY TRANSORAL DIAGNOSTIC 01/23/2012 EGD HEART SURGERY HX LIG/TRNSXJ FLP TUBE ABDL/VAG APPR UNI/BI NEUROPLASTY AND/TRANSPOS MEDIAN NRV CARPAL TUNNE 09/11/2014 Left CTR NEUROPLASTY AND/TRANSPOSITION ULNAR NERVE ELBOW 09/11/2014 Ulnar nerve decompression left elbow OOPHORECTOMY PARTIAL/TOTAL UNI/BI 10/19/2007 Ovarian cancer, [facility] PAST SURGICAL HISTORY OF 05/28/1973 first rib on the left side removed. RETRIEV INTRAVASC FOREGN BODY 02/26/2012 IVC REMOVAL S SLING RUSSELL MCNEIL TOTL 4821 10/26/2005 Obtyrex midurethral sling STENT PLACEMENT 2004 approx per pt cardiac x 2 THYROIDECTOMY TOTAL/COMPLETE 02/02/2014 TOTAL - percancerous. TONSILLECTOMY PRIMARY/SECONDARY AGE 12/> TOTAL ABDOMINAL HYSTERECT W/WO RMVL TUBE OVARY 10/19/2007 for ovarian cancer URODYNAMICS 09/09/[address] Shea Family History FAMILY HISTORY Problem Relation Age of Onset Hypertension Mother Stroke Mother other (ceribral hemorige) Maternal Grandfather other (htn) Maternal Grandfather Lipids Sister Lipids Brother Hypertension Sister Hypertension Brother Patient Allergies ALLERGIES Allergen Reactions Streptokinase Hives Poison Araceli Poison [place] Extract Itching Streptokinesis [Oth* hives Current Medications Current Outpatient Medications on File Prior to Visit Medication Sig benzonatate (TESSALON PERLES) 100 mg capsule Take 2 capsules by mouth three times daily as needed. apixaban (ELIQUIS) 5 mg tab(s) Take 5 mg by mouth twice daily. mirabegron (MYRBETRIQ) 50 mg Tb24 Take 1 tablet by mouth once daily. potassium chloride 20 mEq TbER Take 1 tablet by mouth once daily. hydroCHLOROthiazide (MICROZIDE) 12.5 mg capsule Take 1 capsule by mouth once daily. (Patient taking differently: Take 25 mg by mouth once daily.) rosuvastatin (CRESTOR) 40 mg tablet Take 1 tablet by mouth once daily. ramipril (ALTACE) 10 mg capsule Take two (2) by mouth (more content not included)... [facility] 09-22-2022 Miscellaneous Notes Patient had appt with Radha Toscano on 08/21/2022. Thank you. Lani Goff Calculated Creatinine Clearance, 47 mL/min. Will need follow up appointment in next 6 months. Radha Toscano APRN.CNP Requested Prescriptions Pending Prescriptions Disp Refills mirabegron (MYRBETRIQ) 50 mg Tb24 30 tablet 5 Sig: Take 1 tablet by mouth once daily. Patient was calling wanting the above medication refilled at [facility] in [place]. Please advise. Thank you. Lani Goff documented in this encounter [facility] 08-26-2022 Note HNO ID: [id number] Author: Kyree Mckinnon MD Service: ? Author Type: Physician Type: Progress Notes Filed: 08/26/2022 10:24 AM Note Text: Chief Complaint Patient presents with: Covid Positive In lieu of an in person visit due to coronavirus 19 pandemic concerns, a phone visit was performed with patient. Patient is aware that I am not fully able to assess symptoms and do a full physical exam including vital signs at this time. Patient consents to the visit I have communicated my name and active licensure. The patient's identity and physical location were verified at the time of this visit. Either the patient or their legal order entry representative has been informed of the risks and benefits of -- and alternatives to -- treatment through a remote evaluation and consents to proceed with the evaluation remotely. OLY Rivers is a 82 year old female who presents here today for Above Complaints. Patient has been fully vaccinated for COVID. Considered high risk based on age, heart disease, HTN. Patient evaluated in [facility] yesterday for 3 days of cough, sore throat, congestion, chills, rhinorrhea. Tested positive for COVID and was discharged home with tessalon for her cough. Was contacted and advised to quarantine. Patient wanted appointment today to discuss anti-viral treatment. Patient has been isolating at home with her who has had similar symptoms, but has not been tested for COVID. Feels better today, but still has sore throat, sneezing, rhinorrhea, chills, fatigue, myalgias, loose stools and dry cough. Denies fever, SOB, wheezing, chest pain, headache, new loss of taste/smell, nausea, vomiting. Taking the tessalon which is helping with her cough. Past medical history, appointments, medications, allergies reviewed. Previous Medical History PAST MEDICAL HISTORY Diagnosis Date Diarrhea Diverticulosis of small intestine (without mention of hemorrhage) DVT of leg (deep venous thrombosis) (HCC) Essential hypertension, benign FH: atrial fibrillation Heart attack (HCC) 1999 Hernia Internal hemorrhoids without mention of complication Malignant neoplasm of ovary (HCC) Other and unspecified hyperlipidemia Other pulmonary embolism and infarction Other specified acquired hypothyroidism Postsurgical aortocoronary bypass status Pulmonary embolism (HCC) hx in [place] Symptomatic menopausal or female climacteric states Unspecified cardiovascular disease Urinary incontinence Previous Surgical History PAST SURGICAL HISTORY Procedure Laterality Date ANESTHESIA LUMBAR REGION NOS disc procedure, 2 levels APPENDECTOMY CABG, ARTERIAL, FOUR+ 02/26/2000 COLONOSCOPY 09/27/2004 COLONOSCOPY FLX DX W/COLLJ SPEC WHEN PFRMD 12/07/2014 Colonoscopy ESOPHAGOGASTRODUODENOSCOPY TRANSORAL DIAGNOSTIC 01/23/2012 EGD HEART SURGERY HX LIG/TRNSXJ FLP TUBE ABDL/VAG APPR UNI/BI NEUROPLASTY AND/TRANSPOS MEDIAN NRV CARPAL TUNNE 09/11/2014 Left CTR NEUROPLASTY AND/TRANSPOSITION ULNAR NERVE ELBOW 09/11/2014 Ulnar nerve decompression left elbow OOPHORECTOMY PARTIAL/TOTAL UNI/BI 10/19/2007 Ovarian cancer, [facility] PAST SURGICAL HISTORY OF 05/28/1973 first rib on the left side removed. RETRIEV INTRAVASC FOREGN BODY 02/26/2012 IVC REMOVAL S SLING BLA PELVI TOTL 4821 10/26/2005 Obtyrex midurethral sling STENT PLACEMENT 2004 approx per pt cardiac x 2 THYROIDECTOMY TOTAL/COMPLETE 02/02/2014 TOTAL - percancerous. TONSILLECTOMY PRIMARY/SECONDARY AGE 12/> TOTAL ABDOMINAL HYSTERECT W/WO RMVL TUBE OVARY 10/19/2007 for ovarian cancer URODYNAMICS 09/09/[address] Shea Family History FAMILY HISTORY Problem Relation Age of Onset Hypertension Mother Stroke Mother other (ceribral hemorige) Maternal Grandfather other (htn) Maternal Grandfather Lipids Sister Lipids Brother Hypertension Sister Hypertension Brother Patient Allergies ALLERGIES Allergen Reactions Streptokinase Hives Poison Araceli Poison [place] Extract Itching Streptokinesis [Oth* hives Current Medications Current Outpatient Medications on File Prior to Visit Medication Sig benzonatate (TESSALON PERLES) 100 mg capsule Take 2 capsules by mouth three times daily as needed. apixaban (ELIQUIS) 5 mg tab(s) Take 5 mg by mouth twice daily. mirabegron (MYRBETRIQ) 50 mg Tb24 Take 1 tablet by mouth once daily. potassium chloride 20 mEq TbER Take 1 tablet by mouth once daily. hydroCHLOROthiazide (MICROZIDE) 12.5 mg capsule Take 1 capsule by mouth once daily. (Patient taking differently: Take 25 mg by mouth once daily.) rosuvastatin (CRESTOR) 40 mg tablet Take 1 tablet by mouth once daily. ramipril (ALTACE) 10 mg capsule Take two (2) by mouth once daily. levothyroxine (LEVOXYL) 125 mcg tablet Take 1 tablet by mouth once daily. Take on empty stomach. For thyroid. sucralfate (CARAFATE) 1 gram tablet Take 1 tablet by mouth before meals and at bedtime. lansoprazo (more content not included)... [facility] 08-26-2022 History of Presen t illness Narrative Chief Complaint Patient presents with: Covid Positive In lieu of an in person visit due to coronavirus 19 pandemic concerns, a phone visit was performed with patient. Patient is aware that I am not fully able to assess symptoms and do a full physical exam including vital signs at this time. Patient consents to the visit I have communicated my name and active licensure. The patient's identity and physical location were verified at the time of this visit. Either the patient or their legal order entry representative has been informed of the risks and benefits of -- and alternatives to -- treatment through a remote evaluation and consents to proceed with the evaluation remotely. HPI Sandrine Rivers is a 82 year old female who presents here today for Above Complaints. Patient has been fully vaccinated for COVID. Considered high risk based on age, heart disease, HTN. Patient evaluated in yesterday for 3 days of cough, sore throat, congestion, chills, rhinorrhea. Tested positive for COVID and was discharged home with marlaon for her cough. Was contacted and advised to quarantine. Patient wanted appointment today to discuss anti-viral treatment. Patient has been isolating at home with her who has had similar symptoms, but has not been tested for COVID. Feels better today, but still has sore throat, sneezing, rhinorrhea, chills, fatigue, myalgias, loose stools and dry cough. Denies fever, SOB, wheezing, chest pain, headache, new loss of taste/smell, nausea, vomiting. Taking the tessalon which is helping with her cough. Past medical history, appointments, medications, allergies reviewed. Previous Medical History PAST MEDICAL HISTORY Diagnosis Date Diarrhea Diverticulosis of small intestine (without mention of hemorrhage) DVT of leg (deep venous thrombosis) (HCC) Essential hypertension, benign FH: atrial fibrillation Heart attack (HCC) 1999 Hernia Internal hemorrhoids without mention of complication Malignant neoplasm of ovary (HCC) Other and unspecified hyperlipidemia Other pulmonary embolism and infarction Other specified acquired hypothyroidism Postsurgical aortocoronary bypass status Pulmonary embolism (HCC) hx in [place] Symptomatic menopausal or female climacteric states Unspecified cardiovascular disease Urinary incontinence Previous Surgical History PAST SURGICAL HISTORY Procedure Laterality Date ANESTHESIA LUMBAR REGION NOS disc procedure, 2 levels APPENDECTOMY CABG, ARTERIAL, FOUR+ 02/26/2000 COLONOSCOPY 09/27/2004 COLONOSCOPY FLX DX W/COLLJ SPEC WHEN PFRMD 12/07/2014 Colonoscopy ESOPHAGOGASTRODUODENOSCOPY TRANSORAL DIAGNOSTIC 01/23/2012 EGD HEART SURGERY HX LIG/TRNSXJ FLP TUBE ABDL/VAG APPR UNI/BI NEUROPLASTY &/TRANSPOS MEDIAN NRV CARPAL TUNNE 09/11/2014 Left CTR NEUROPLASTY &/TRANSPOSITION ULNAR NERVE ELBOW 09/11/2014 Ulnar nerve decompression left elbow OOPHORECTOMY PARTIAL/TOTAL UNI/BI 10/19/2007 Ovarian cancer, [facility] PAST SURGICAL HISTORY OF 05/28/1973 first rib on the left side removed. RETRIEV INTRAVASC FOREGN BODY 02/26/2012 IVC REMOVAL S SLING BLADR PELVI TOTL 4821 10/26/2005 Obtyrex midurethral sling STENT PLACEMENT 2004 approx per pt cardiac x 2 THYROIDECTOMY TOTAL/COMPLETE 02/02/2014 TOTAL - percancerous. TONSILLECTOMY PRIMARY/SECONDARY AGE 12/> TOTAL ABDOMINAL HYSTERECT W/WO RMVL TUBE OVARY 10/19/2007 for ovarian cancer URODYNAMICS 09/09/[address] Shea Family History FAMILY HISTORY Problem Relation Age of Onset Hypertension Mother Stroke Mother other (ceribral hemorige) Maternal Grandfather other (htn) Maternal Grandfather Lipids Sister Lipids Brother Hypertension Sister Hypertension Brother Patient Allergies ALLERGIES Allergen Reactions Streptokinase Hives Poison Araceli Poison [place] Extract Itching Streptokinesis [Oth* hives Current Medications Current Outpatient Medications on File Prior to Visit Medication Sig benzonatate (TESSALON PERLES) 100 mg capsule Take 2 capsules by mouth three times daily as needed. apixaban (ELIQUIS) 5 mg tab(s) Take 5 mg by mouth twice daily. mirabegron (MYRBETRIQ) 50 mg Tb24 Take 1 tablet by mouth once daily. potassium chloride 20 mEq TbER Take 1 tablet by mouth once daily. hydroCHLOROthiazide (MICROZIDE) 12.5 mg capsule Take 1 capsule by mouth once daily. (Patient taking differently: Take 25 mg by mouth once daily.) rosuvastatin (CRESTOR) 40 mg tablet Take 1 tablet by mouth once daily. ramipril (ALTACE) 10 mg capsule Take two (2) by mouth once daily. levothyroxine (LEVOXYL) 125 mcg tablet Take 1 tablet by mouth once daily. Take on empty stomach. For thyroid. sucralfate (CARAFATE) 1 gram tablet Take 1 tablet by mouth before meals and at bedtime. lansoprazole (PREVACID) 30 mg capsule Take 1 capsule by mouth daily before breakfast. 1/2 hr before meal. niacin ER (NIASPAN) 500 mg tablet Take 1 tablet by mouth twice daily. cholecalciferol, Vitamin D3, (VITAMIN D3) 1,250 mcg (50,000 unit) cap capsule TAKE 1 CAPSULE BY MOUTH ONCE A WEEK furosemide (LASIX) 40 mg tablet Take 1 tablet by mouth once daily. (Patient taking differently: Take 20 mg by mouth once daily.) albuterol HFA (PROAIR HFA) 90 mcg/actuation inhaler Inhale 2 Puffs as instructed every 6 hours as needed. nitroglycerin(NITROQUICK 0.4 MG SUBLINGUAL TAB) ASPIRIN 81 MG TAB Take one(1) tablet daily. CALCIUM 500 MG TAB Take one(1) tablet two(2) times daily. TYLENOL PM 25 MG-500 MG TAB Take two(2) at bedtime ATENOLOL 50 MG TAB Take one(1) tablet two(2) times daily. No current facility-administered medications on file prior to visit. Social History Social History Tobacco Use Smoking status: Former Packs/day: 0.50 Years: 30.00 Pack years: 15.00 Types: Cigarettes Quit date: 03/14/2000 Years since quittin.4 Smokeless tobacco: Never Tobacco comments: Parents smoked in childhood home. Spouse smoked pipe and cigar occasionally in home. Vaping Use Vaping Use: Never used Substance Use Topics Alcohol use: Yes Comment: Rarely. Drug use: No Review of Symptoms REVIEW OF SYSTEMS See HPI EXAM: LMP 05/28/1990 General Appearance: Patient able to talk in complete sentences without SOB, cough, or audible wheezing. AOx3. Health Maintenance List SHINGRIX VACCINE(2 of 3) due on 02/09/2012 ADVANCE DIRECTIVE DISCUSSION due on 05/28/2022 DEPRESSION ASSESSMENT due on 05/28/2022 LDL CHOLESTEROL due on 03/28/2023 DIABETES SCREEN due on 03/28/2025 DTAP,TDAP,TD(3 - Td or Tdap) due on 07/13/2026 BONE DENSITY Completed INFLUENZA Completed COVID-19 VACCINE Completed PNEUMOCOCCAL: 65+ Completed Data reviewed Component Latest Ref Rng & Units 08/25/2022 COVID 19 Result See comment Detected (A) Influenza A PCR Not Detected Not detected Influenza B PCR Not Detected Not detected ASSESSMENT/PLAN: 1. COVID-19 - ICD9: 079.89, ICD10: U07.1 Day 4 of symptoms. Symptoms improving. Recommend rest, supportive care, and should isolate until: At least 5 days have passed since symptoms first appeared and At least 24 hours have passed since last fever without the use of fever-reducing medications and Symptoms (e.g., cough, shortness of breath) have improved. Should wear mask for at least 5 days after he ends isolation to prevent spread to others. Red flags for re-assessment reviewed with patient in detail. Discussed anti-viral options of Paxlovid and Lagevrio which she is refusing after reviewing interactions with other meds and side effects. Patient states she will let us know if she changes her mind today or tomorrow. I spent a total of 22 minutes on the date of the service which included preparing to see the patient, completing clinical documentation, obtaining and/or reviewing separately obtained history, performing a medically appropriate examination, counseling and educating the patient/family/caregiver, and ordering medications, tests, or procedures. Kyree Mckinnon MD documented in this encounter [facility] 08-25-2022 Note HNO ID: [id number] Author: Davina Quarles PA-C Service: ? Author Type: Physician Cooker Mechanic Type: Progress Notes Filed: 08/25/2022 10:08 AM Note Text: This note was created using Toskriter. Subjective Sandrine Rivers is a 82 year old female. HPI Patient presents with cough, sore throat, congestion for 3 days. She has had some chills. No temp taken at home. Her had a cold recently. Cough seems to be about the same. Denies chest pain or shortness of breath. No vomiting or diarrhea. No home COVID test done. She has not had COVID previously. Is fully vaccinated. She has tried some Carranza's cough drops [id number]. Review of Systems Constitutional: Positive for chills. Negative for fever. HENT: Positive for congestion, rhinorrhea, sneezing and sore throat. Negative for ear pain. Respiratory: Positive for cough. Negative for shortness of breath and wheezing. Cardiovascular: Negative. Gastrointestinal: Negative. Genitourinary: Negative. Musculoskeletal: Negative. All other systems reviewed and are negative. PAST MEDICAL HISTORY Diagnosis Date Diarrhea Diverticulosis of small intestine (without mention of hemorrhage) DVT of leg (deep venous thrombosis) (HCC) Essential hypertension, benign FH: atrial fibrillation Heart attack (HCC) 1999 Hernia Internal hemorrhoids without mention of complication Malignant neoplasm of ovary (HCC) Other and unspecified hyperlipidemia Other pulmonary embolism and infarction Other specified acquired hypothyroidism Postsurgical aortocoronary bypass status Pulmonary embolism (HCC) hx in [place] Symptomatic menopausal or female climacteric states Unspecified cardiovascular disease Urinary incontinence Current Outpatient Medications Medication Sig Dispense Refill apixaban (ELIQUIS) 5 mg tab(s) Take 5 mg by mouth twice daily. mirabegron (MYRBETRIQ) 50 mg Tb24 Take 1 tablet by mouth once daily. 30 tablet 5 potassium chloride 20 mEq TbER Take 1 tablet by mouth once daily. 90 tablet 4 hydroCHLOROthiazide (MICROZIDE) 12.5 mg capsule Take 1 capsule by mouth once daily. (Patient taking differently: Take 25 mg by mouth once daily.) 90 capsule 3 rosuvastatin (CRESTOR) 40 mg tablet Take 1 tablet by mouth once daily. 30 tablet 11 ramipril (ALTACE) 10 mg capsule Take two (2) by mouth once daily. 60 capsule 11 levothyroxine (LEVOXYL) 125 mcg tablet Take 1 tablet by mouth once daily. Take on empty stomach. For thyroid. 30 tablet 11 sucralfate (CARAFATE) 1 gram tablet Take 1 tablet by mouth before meals and at bedtime. 120 tablet 11 lansoprazole (PREVACID) 30 mg capsule Take 1 capsule by mouth daily before breakfast. 1/2 hr before meal. 30 capsule 11 niacin ER (NIASPAN) 500 mg tablet Take 1 tablet by mouth twice daily. 60 tablet 11 cholecalciferol, Vitamin D3, (VITAMIN D3) 1,250 mcg (50,000 unit) cap capsule TAKE 1 CAPSULE BY MOUTH ONCE A WEEK 12 capsule 3 furosemide (LASIX) 40 mg tablet Take 1 tablet by mouth once daily. (Patient taking differently: Take 20 mg by mouth once daily.) 90 tablet 3 albuterol HFA (PROAIR HFA) 90 mcg/actuation inhaler Inhale 2 Puffs as instructed every 6 hours as needed. 6.7 g 5 nitroglycerin(NITROQUICK 0.4 MG SUBLINGUAL TAB) 0 ASPIRIN 81 MG TAB Take one(1) tablet daily. 0 0 CALCIUM 500 MG TAB Take one(1) tablet two(2) times daily. 0 0 TYLENOL PM 25 MG-500 MG TAB Take two(2) at bedtime 0 0 ATENOLOL 50 MG TAB Take one(1) tablet two(2) times daily. 0 0 benzonatate (TESSALON PERLES) 100 mg capsule Take 2 capsules by mouth three times daily as needed. 30 capsule 0 No current facility-administered medications for this visit. PAST SURGICAL HISTORY Procedure Laterality Date ANESTHESIA LUMBAR REGION NOS disc procedure, 2 levels APPENDECTOMY CABG, ARTERIAL, FOUR+ 02/26/2000 COLONOSCOPY 09/27/2004 COLONOSCOPY FLX DX W/COLLJ SPEC WHEN PFRMD 12/07/2014 Colonoscopy ESOPHAGOGASTRODUODENOSCOPY TRANSORAL DIAGNOSTIC 01/23/2012 EGD HEART SURGERY HX LIG/TRNSXJ FLP TUBE ABDL/VAG APPR UNI/BI NEUROPLASTY AND/TRANSPOS MEDIAN NRV CARPAL TUNNE 09/11/2014 Left CTR NEUROPLASTY AND/TRANSPOSITION ULNAR NERVE ELBOW 09/11/2014 Ulnar nerve decompression left elbow OOPHORECTOMY PARTIAL/TOTAL UNI/BI 10/19/2007 Ovarian cancer, [facility] PAST SURGICAL HISTORY OF 05/28/1973 first rib on the left side removed. RETRIEV INTRAVASC FOREGN BODY 02/26/2012 IVC REMOVAL S SLING RUSSELL MCNEIL TOTL 4821 10/26/2005 Obtyrex midurethral sling STENT PLACEMENT 2004 approx per pt cardiac x 2 THYROIDECTOMY TOTAL/COMPLETE 02/02/2014 TOTAL - percancerous. TONSILLECTOMY PRIMARY/SECONDARY AGE 12/> TOTAL ABDOMINAL HYSTERECT W/WO RMVL TUBE OVARY 10/19/2007 for ovarian cancer URODYNAMICS 09/09/[address] Shea FAMILY HISTORY Problem Relation Age of Onset Hypertension Mother Stroke Mother other (ceribral hemorige) Maternal Grandfather other (htn) Maternal Grandfather Lipids (more content not included)... [facility] 08-25-2022 Note HNO ID: [id number] Author: RT Barron(R) Service: Nuclear Medicine Author Type: Technologist Type: Progress Notes Filed: 08/25/2022 9:59 AM Note Text: Radiology Service Progress Note PATIENT NAME: Sandrine Rivers DATE OF SERVICE: August 25, 2022 TIME: 9:50 AM PATIENT IDENTITY VERIFICATION COMPLETED USING TWO (2) IDENTIFIERS: Name and Date of confirmed by patient verbally. FALL SCREENING: Has the patient had 2 falls in the last year or 1 fall with injury or currently using an Ambulatory Assistive Device (Walker, Cane, Wheelchair, Crutches, etc.)? No PATIENT GENDER DATA: Female. status: : No status: NO. PATIENT RELEVANT IMPLANT DATA REVIEWED: Not Applicable RADIOLOGY DEPARTMENT: General X-ray: Exam(s) Completed: Chest X-Ray PERIPHERAL IV DATA: Not applicable SIGNED BY: RT Barron(R) August 25, 2022 9:[address] [facility] 08-25-2022 History of Presen t illness Narrative This note was created using NoteWriter. Subjective Sandrine Rivers is a 82 year old female. HPI Patient presents with cough, sore throat, congestion for 3 days. She has had some chills. No temp taken at home. Her had a cold recently. Cough seems to be about the same. Denies chest pain or shortness of breath. No vomiting or diarrhea. No home COVID test done. She has not had COVID previously. Is fully vaccinated. She has tried some Carranza's cough drops [id number]. Review of Systems Constitutional: Positive for chills. Negative for fever. HENT: Positive for congestion, rhinorrhea, sneezing and sore throat. Negative for ear pain. Respiratory: Positive for cough. Negative for shortness of breath and wheezing. Cardiovascular: Negative. Gastrointestinal: Negative. Genitourinary: Negative. Musculoskeletal: Negative. All other systems reviewed and are negative. PAST MEDICAL HISTORY Diagnosis Date Diarrhea Diverticulosis of small intestine (without mention of hemorrhage) DVT of leg (deep venous thrombosis) (HCC) Essential hypertension, benign FH: atrial fibrillation Heart attack (HCC) 1999 Hernia Internal hemorrhoids without mention of complication Malignant neoplasm of ovary (HCC) Other and unspecified hyperlipidemia Other pulmonary embolism and infarction Other specified acquired hypothyroidism Postsurgical aortocoronary bypass status Pulmonary embolism (HCC) hx in Snoring Symptomatic menopausal or female climacteric states Unspecified cardiovascular disease Urinary incontinence Current Outpatient Medications Medication Sig Dispense Refill apixaban (ELIQUIS) 5 mg tab(s) Take 5 mg by mouth twice daily. mirabegron (MYRBETRIQ) 50 mg Tb24 Take 1 tablet by mouth once daily. 30 tablet 5 potassium chloride 20 mEq TbER Take 1 tablet by mouth once daily. 90 tablet 4 hydroCHLOROthiazide (MICROZIDE) 12.5 mg capsule Take 1 capsule by mouth once daily. (Patient taking differently: Take 25 mg by mouth once daily.) 90 capsule 3 rosuvastatin (CRESTOR) 40 mg tablet Take 1 tablet by mouth once daily. 30 tablet 11 ramipril (ALTACE) 10 mg capsule Take two (2) by mouth once daily. 60 capsule 11 levothyroxine (LEVOXYL) 125 mcg tablet Take 1 tablet by mouth once daily. Take on empty stomach. For thyroid. 30 tablet 11 sucralfate (CARAFATE) 1 gram tablet Take 1 tablet by mouth before meals and at bedtime. 120 tablet 11 lansoprazole (PREVACID) 30 mg capsule Take 1 capsule by mouth daily before breakfast. 1/2 hr before meal. 30 capsule 11 niacin ER (NIASPAN) 500 mg tablet Take 1 tablet by mouth twice daily. 60 tablet 11 cholecalciferol, Vitamin D3, (VITAMIN D3) 1,250 mcg (50,000 unit) cap capsule TAKE 1 CAPSULE BY MOUTH ONCE A WEEK 12 capsule 3 furosemide (LASIX) 40 mg tablet Take 1 tablet by mouth once daily. (Patient taking differently: Take 20 mg by mouth once daily.) 90 tablet 3 albuterol HFA (PROAIR HFA) 90 mcg/actuation inhaler Inhale 2 Puffs as instructed every 6 hours as needed. 6.7 g 5 nitroglycerin(NITROQUICK 0.4 MG SUBLINGUAL TAB) 0 ASPIRIN 81 MG TAB Take one(1) tablet daily. 0 0 CALCIUM 500 MG TAB Take one(1) tablet two(2) times daily. 0 0 TYLENOL PM 25 MG-500 MG TAB Take two(2) at bedtime 0 0 ATENOLOL 50 MG TAB Take one(1) tablet two(2) times daily. 0 0 benzonatate (TESSALON PERLES) 100 mg capsule Take 2 capsules by mouth three times daily as needed. 30 capsule 0 No current facility-administered medications for this visit. PAST SURGICAL HISTORY Procedure Laterality Date ANESTHESIA LUMBAR REGION NOS disc procedure, 2 levels APPENDECTOMY CABG, ARTERIAL, FOUR+ 02/26/2000 COLONOSCOPY 09/27/2004 COLONOSCOPY FLX DX W/COLLJ SPEC WHEN PFRMD 12/07/2014 Colonoscopy ESOPHAGOGASTRODUODENOSCOPY TRANSORAL DIAGNOSTIC 01/23/2012 EGD HEART SURGERY HX LIG/TRNSXJ FLP TUBE ABDL/VAG APPR UNI/BI NEUROPLASTY &/TRANSPOS MEDIAN NRV CARPAL TUNNE 09/11/2014 Left CTR NEUROPLASTY &/TRANSPOSITION ULNAR NERVE ELBOW 09/11/2014 Ulnar nerve decompression left elbow OOPHORECTOMY PARTIAL/TOTAL UNI/BI 10/19/2007 Ovarian cancer, [facility] PAST SURGICAL HISTORY OF 05/28/1973 first rib on the left side removed. RETRIEV INTRAVASC FOREGN BODY 02/26/2012 IVC REMOVAL S SLING BLADR PELVI TOTL 4821 10/26/2005 Obtyrex midurethral sling STENT PLACEMENT 2004 approx per pt cardiac x 2 THYROIDECTOMY TOTAL/COMPLETE 02/02/2014 TOTAL - percancerous. TONSILLECTOMY PRIMARY/SECONDARY AGE 12/> TOTAL ABDOMINAL HYSTERECT W/WO RMVL TUBE OVARY 10/19/2007 for ovarian cancer URODYNAMICS 09/09/[address] Shea FAMILY HISTORY Problem Relation Age of Onset Hypertension Mother Stroke Mother other (ceribral hemorige) Maternal Grandfather other (htn) Maternal Grandfather Lipids Sister Lipids Brother Hypertension Sister Hypertension Brother Social History Tobacco Use Smoking status: Former Packs/day: 0.50 Years: 30.00 Pack years: 15.00 Types: Cigarettes Quit date: 03/14/2000 Years since quittin.4 Smokeless tobacco: Never Tobacco comments: Parents smoked in childhood home. Spouse smoked pipe and cigar occasionally in home. Vaping Use Vaping Use: Never used Substance Use Topics Alcohol use: Yes Comment: Rarely. Drug use: No Objective BP 126/74 Pulse 78 Temp 37 C (98.6 F) (Tympanic) Resp 16 Wt 94.7 kg (208 lb 12.8 oz) LMP 05/28/1990 SpO2 96% BMI 35.84 kg/m Physical Exam Vitals reviewed. Constitutional: Appearance: Normal appearance. HENT: Head: Normocephalic and atraumatic. Right Ear: Tympanic membrane, ear canal and external ear normal. Left Ear: Tympanic membrane, ear canal and external ear normal. Nose: Congestion present. Mouth/Throat: Mouth: Mucous membranes are moist. Pharynx: Oropharynx is clear. Cardiovascular: Rate and Rhythm: Normal rate and regular rhythm. Heart sounds: Normal heart sounds. Pulmonary: Effort: Pulmonary effort is normal. Breath sounds: Normal breath sounds. Musculoskeletal: Cervical back: Neck supple. Lymphadenopathy: Cervical: No cervical adenopathy. Skin: General: Skin is warm and dry. Findings: No rash. Neurological: General: No focal deficit present. Mental Status: She is alert and oriented to person, place, and time. Assessment and Plan ASSESSMENT/PLAN: 1. Viral URI with cough - ICD9: 465.9, ICD10: J06.9 - Discussed viral etiology and rationale for treatment. Chest x-ray clear on my read, pending radiology read. Given Tessalon for cough. - Symptomatic treatment with prn analgesia - Supportive care with fluids and rest - Follow up in 3-5 days if symptoms persist or sooner if worsening of symptoms - COVID WITH FLUA+B, ROUTINE - XR CHEST 2V FRONTAL/LAT Davina Quarles PA-C documented in this encounter [facility] 08-21-2022 Note HNO ID: [id number] Author: Radha Toscano APRN.MIKA Service: ? Author Type: Nurse Practitioner Type: Progress Notes Filed: 08/21/2022 3:05 PM Note Text: Female Pelvic Medicine AND Reconstructive Surgery Follow-Up Sandrine Rivers is a 81 year old female, who presents for a follow-up of urinary incontinence, urinary urgency, urinary frequency. LVV on 09/14/2021 with Marlen Busch CNP: Assessment: (N39.41) Urge incontinence (primary encounter diagnosis) resolved on myrbetriq Plan: Continue Myrbetriq, check BP twice/week and notify office if elevated. Warning signs warranting eval reviewed. F/U 6 months or sooner PRN History since last visit: Myrbetriq was working well until she start a 2nd diuretic. Was started on lasix twice daily, and her urinary symptoms worsened. States she has recently been reduced to lasix once daily and her urinary symptoms improved but are still bothersome. States she is unsure of how long she is supposed to take the lasix and is inquiring with cardiology to find out. Takes lasix at breakfast. Voids every hour, sometimes able to go less frequently. States she can go longer between voids at the end of the day. Has rare episodes of urinary leakage, especially if she waits to use restroom. Is up about 2 times a night. For right now, she does not want to make any changes, as she was very happy with symptoms before lasix. Drinks 2-4 cups of decaf of coffee, 16 oz of iced tea, 8-12 oz water CrCl calucated based off external labs from 08/11/2022, 55 mL/min. GFR 45. 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 She has no history of an abnormal mammogram LMP: Patient's last menstrual period was 05/28/1990.; Menopause yes: Menstrual history: Menarche: 13; Deliveries: I have confirmed and edited as necessary, the PFSH obtained by others. Radha Toscano APRN.INSTRUMENT INSTALLER Sheetmetal Worker offered: Patient declines. OBJECTIVE: BP 122/70 Pulse 61 Resp 16 Ht 5' 4 (1.63m) Wt 207 lb (93.9kg) SpO2 98% LMP 05/28/1990 BMI 35.51 kg/(m2). General: Well appearing, alert, in no acute distress, well-hydrated, well nourished. Impression: Sandrine Rivers is a 81 year old female with TORSTEN. 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 08-21-2022 History of Presen t illness Narrative Female Pelvic Medicine & Reconstructive Surgery Follow-Up Sandrine Rivers is a 81 year old female, who presents for a follow-up of urinary incontinence, urinary urgency, urinary frequency. LVV on 09/14/2021 with Marlen Busch CNP: Assessment: (N39.41) Urge incontinence (primary encounter diagnosis) resolved on myrbetriq Plan: Continue Myrbetriq, check BP twice/week and notify office if elevated. Warning signs warranting eval reviewed. F/U 6 months or sooner PRN History since last visit: Isaías was working well until she start a 2nd diuretic. Was started on lasix twice daily, and her urinary symptoms worsened. States she has recently been reduced to lasix once daily and her urinary symptoms improved but are still bothersome. States she is unsure of how long she is supposed to take the lasix and is inquiring with cardiology to find out. Takes lasix at breakfast. Voids every hour, sometimes able to go less frequently. States she can go longer between voids at the end of the day. Has rare episodes of urinary leakage, especially if she waits to use restroom. Is up about 2 times a night. For right now, she does not want to make any changes, as she was very happy with symptoms before lasix. Drinks 2-4 cups of decaf of coffee, 16 oz of iced tea, 8-12 oz water CrCl calucated based off external labs from 08/11/2022, 55 mL/min. GFR 45. 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 She has no history of an abnormal mammogram LMP: Patient's last menstrual period was 05/28/1990.; Menopause yes: Menstrual history: Menarche: 13; Deliveries: I have confirmed and edited as necessary, the PFSH obtained by others. Radha Toscano APRN.INSTRUMENT INSTALLER Sheetmetal Worker offered: Patient declines. OBJECTIVE: BP 122/70 Pulse 61 Resp 16 Ht 5' 4 (1.63m) Wt 207 lb (93.9kg) SpO2 98% LMP 05/28/1990 BMI 35.51 kg/(m^2). General: Well appearing, alert, in no acute distress, well-hydrated, well nourished. Impression: Sandrine Rivers is a 81 year old female with TORSTEN. Plan: - Discussed with patient that OAB treatment cannot always negate intended effects of diuretics - Patient to inquire with cardiology [facility] plans for diuretic use and will contact office if she would like to change therapy - Continue 50 mg myrbetriq as she was very happy with symptoms before addition of lasix - Expectant management for OWEN - Follow up in 1 year or sooner as needed Medical Decision Making: Problems: Moderate: 2+ stable chronic illnesses Risk: Moderate: Drug management Medical Decision Making Level: 4 - Moderate Radha Toscano APRN.CNP documented in this encounter [facility] 08-14-2022 Miscellaneous Notes Patient advised of need for lab work, she verbalized understanding and will go to [facility] lab tomorrow. Chart reviewed. Labs obtained on 08/11/2022. CrCl calculated to be 55 mL/min. In need of LFTs. Order placed. Radha Toscano APRN.CNP Last encounter, Myrbetriq refill 02/08/22: Calculated Creatinine Clearance, 47 mL/min. Will need follow up appointment in next 6 months. Radha Toscano APRN.CNP No appts scheduled. Phone call placed to patient- advised of need for f/u appt prior to refill. Patient accepts appointment on 08/21 at 2:00. Message routed to [facility] to schedule. Message routed to Radha Toscano CNP to advise if labs needed prior to visit. Patient phones requesting refills as follows: Requested Prescriptions Pending Prescriptions Disp Refills mirabegron (MYRBETRIQ) 50 mg Tb24 30 tablet 5 Sig: Take 1 tablet by mouth once daily. Please review and advise. Nalini Ernandez documented in this encounter [facility] 05-11-2022 Miscellaneous Notes The following approved medication requests have been transmitted electronically. Requested Prescriptions Pending Prescriptions Disp Refills potassium chloride 20 mEq TbER 90 tablet 4 Sig: Take 1 tablet by mouth once daily. Charles Chavez APRN.CNP DEANN 04/04/22 Appointment scheduled 10/05/22 Please advise. Thank you. ADALBERTO Lang Summary: Refill Patient has been identified by name and date of : Yes Last office visit in this department: 04/04/2022 RX INSTRUCTIONS: Patient aware RX will be sent to pharmacy. No need to notify patient. Patient phones requesting refills as follows: Requested Prescriptions Pending Prescriptions Disp Refills potassium chloride 20 mEq TbER Sig: Take 1 tablet by mouth once daily. Please review and advise. Faby Nicole documented in this encounter [facility] 03-28-2022 Miscellaneous Notes Pt called and notified of message below. Pt states that Dr. Waite gave her the exact instructions and advised her to have rechecked in 1 week. She plans on getting this done at [facility]. Asked pt who's managing her INR and she's uncertain who is. Dr. Waite is carefully watching her so she can be cardioverted. Notified pt that she needs to talk to there office and make sure they are taking over managing her INR. Order today was from there office, but was routed to PCP since we've managed in the past month. Pt states she has a follow up with him and will check with him and notify the office. CARDIO MANAGING INR PRESENTLY. Deborah Carlisle Ma INR low at 1.8 Go to 5 mg //Sunday and 2.5 mg all other days Recheck in 1 week aSmantha Reyes MD Last INR: INR (POCT) 1.8 03/28/2022 Current dose of coumadin is: 5 mg /Sunday and 2.5 mg all other days. Last date of dose change: 02/03/22. Previous INR (date and result): 2.6 on 03/07/22 Additional Clinical Information or narrative: yes: pt had recent cardioversion procedure. This INR test was ordered by Dr. Waite. Deborah Carlisle Ma documented in this encounter [facility] 03-10-2022 Miscellaneous Notes Patient has been identified by name and date of : Yes Patient phones for refill(s): Requested Prescriptions Pending Prescriptions Disp Refills warfarin (COUMADIN) 5 mg tablet 30 tablet 11 Si mg Mon, Wed, Fri, Sat, 2.5 mg all other days or as directed Date of last office visit in primary care: 02/28/22 Last 2 Encounter Wt Readings: Date: Wt: 02/21/2022 95.7 kg (211 lb) 02/01/2022 96.6 kg (213 lb) Previous labs/tests for medication: Not applicable Please advise. Thank you. Faby Pastrana documented in this encounter [facility] 03-08-2022 Miscellaneous Notes The following approved medication requests have been transmitted electronically. Requested Prescriptions Signed Prescriptions Disp Refills warfarin (COUMADIN) 5 mg tablet 30 tablet 11 Si mg Mon, Wed, Fri, Sat, 2.5 mg all other days or as directed Authorizing Provider: SAMANTHA REYES MA OK to refill as ordered Samantha Reyes MD [facility] reports patient is out of coumadin and needs refill, but pcp office tells them they sent an rx for a years supply. Noted on chart, the only coumadin listed, appears as historical med and was not sent. Re-pended. documented in this encounter [facility] 03-07-2022 History of Presen t illness Narrative patient had inr completed at [facility] patients inr is 2.6 (patients inr range is 2.0-3.0) patient is currently taking 5mg Thurs Fri and 2.5mg all other days patients last dose change was on 02/03/22 due to a low level of 1.7 (dose at that time was 5mg Thurs and 2.5mg all other days) patient has had no changes in medication and no missed doses and no change in diet information called to dr blackmon office spoke with shila as he is currently handling inr as they are trying to get patient scheduled for a cardioversion. patient has been scheduled for a 1 week follow up inr on 03/14/22 documented in this encounter [facility] 02-28-2022 History of Presen t illness Narrative patient had inr completed at [facility] patients inr is 3.0 (patients inr range is 2.0-3.0) patient is currently taking 5mg Thurs Fri and 2.5mg all other days patients last dose change was on 02/03/22 due to a low level of 1.7 (dose at that time was 5mg Thurs and 2.5mg all other days) patient has had no changes in medication and no missed doses and no change in diet Advised patient to continue on the same dose(s) and that they would only be contacted regarding dosage and follow up instructions after review with provider, if a change is needed. Written instructions given and patient verbalized understanding. Presently scheduled in 1 week (03/07/22) for follow up INR. results called to Dr waite spoke to nurse Shila as he is currently handling coumadin due to trying to schedule patient for cardioversion documented in this encounter [facility] 02-23-2022 Miscellaneous Notes Patient is feeling better and I told her if symptoms get worse to follow up with her PCP.Shannon Leung LPN Patient is on the correct antibiotic according to culture please make sure symptoms are getting better if not patient needs to follow-up thank you documented in this encounter [facility] 02-22-2022 History of Presen t illness Narrative I agree with the advice given; stay same and recheck in 1 week Samantha Reyes MD patient had inr completed at [facility] patients inr is 2.5 (patients inr range is 2.0-3.0) patient is currently taking 5mg Thurs,Fri and 2.5mg all other days patients last dose change was on 02/03/22 due to a low level of 1.7 (dose at that time was 5mg Thurs and 2.5mg all other days) patient has had no changes in medication and no missed doses and no change in diet results being sent to Dr Waite at this time to review and advise on as they are trying to get patient scheduled for cardioversion. patient has been scheduled for a 1 week follow up inr on 02/28/22 documented in this encounter [facility] 02-21-2022 Instructions Avtar Mccartney APRN.INSTRUMENT INSTALLER - 02/21/2022 12:27 PM EDT URINARY TRACT INFECTION GENERAL INFORMATION: A urinary tract infection (UTI) is an infection of the bladder or kidneys. A bladder infection, called cystitis, is the more common type. If the infection travels up to the kidneys, it is called pyelonephritis. This can be more serious. UTIs are a common problem in women. Having sexual relations can leave a woman more susceptible to developing a UTI, but it is not sexually transmitted like gonorrhea. Some women have a problem with recurrent UTIs. INSTRUCTIONS: 1. Your doctor prescribed an antibiotic to treat the UTI. Take exactly as directed. Be sure to take all the medication prescribed, even if your symptoms disappear. If you stop treatment early, the infection may not be fully treated and the symptoms could come back again. 2. Get plenty of rest. You may take acetaminophen for fever and aches. 3. Drink 6 to 8 glasses of fluids, especially water, every day. This helps wash out germs from your urinary tract. Cranberry juice or other sources of vitamin C are also good for you. 4. Urinate often, as soon as you feel the urge. Empty your bladder completely. Urinate before and after you have sex. 5. Always wipe from front to back after going to the bathroom. This pushes germs away from your bladder, rather than towards it. 6. Showers are better than baths, and you should wash the genital area daily. Avoid bubble bath or bath oils if you do take a bath. 7. Wear underwear and pantyhose with a cotton crotch. CONTACT YOUR DOCTOR: 1. You have a temperature over 102F (38.8C) after 48 hours on medication. 2. You notice blood in your urine. 3. Your symptoms don't improve in 2 days. 4. You develop nausea, vomiting, diarrhea, or a rash. 5. You develop new or unexplained symptoms. These may be related to the medication you are taking. 6. Your symptoms return after you finish treatment. RETURN TO THE EMERGENCY DEPARTMENT IF: You develop vomiting and can't keep your medication or fluids down. documented in this encounter [facility] 02-21-2022 History of Presen t illness Narrative Subjective HPI A nontoxic appearing female presents to urgent care with chief complaint of possible UTI. Duration of symptoms 1 day. Associated symptoms dysuria, frequency, and urgency. Patient has history of UTIs in past with similar signs and symptoms. Positive urine cultures were E. coli and Enterococcus faecalis. patient denies the use of any [id number] medications or home remedies for symptom management. Patient states pain is a 2/10. Patient denies any fevers, flank pain, abdominal pain, nausea, vomiting, vaginal discharge, or urological abnormalities. Past medical history prescription medication use allergies reviewed. .Patient presents with: Urinary Problem: Frequency, burning x1 day. PAST MEDICAL HISTORY Diagnosis Date Diarrhea Diverticulosis of small intestine (without mention of hemorrhage) DVT of leg (deep venous thrombosis) (HCC) Essential hypertension, benign FH: atrial fibrillation Heart attack (HCC) 1999 Hernia Internal hemorrhoids without mention of complication Malignant neoplasm of ovary (HCC) Other and unspecified hyperlipidemia Other pulmonary embolism and infarction Other specified acquired hypothyroidism Postsurgical aortocoronary bypass status Pulmonary embolism (HCC) hx in Snoring Symptomatic menopausal or female climacteric states Unspecified cardiovascular disease Urinary incontinence PAST SURGICAL HISTORY Procedure Laterality Date ANESTHESIA LUMBAR REGION NOS disc procedure, 2 levels APPENDECTOMY CABG, ARTERIAL, FOUR+ 02/26/2000 COLONOSCOPY 09/27/2004 COLONOSCOPY FLX DX W/COLLJ SPEC WHEN PFRMD 12/07/2014 Colonoscopy ESOPHAGOGASTRODUODENOSCOPY TRANSORAL DIAGNOSTIC 01/23/2012 EGD HEART SURGERY HX LIG/TRNSXJ FLP TUBE ABDL/VAG APPR UNI/BI NEUROPLASTY &/TRANSPOS MEDIAN NRV CARPAL TUNNE 09/11/2014 Left CTR NEUROPLASTY &/TRANSPOSITION ULNAR NERVE ELBOW 09/11/2014 Ulnar nerve decompression left elbow OOPHORECTOMY PARTIAL/TOTAL UNI/BI 10/19/2007 Ovarian cancer, [facility] PAST SURGICAL HISTORY OF 05/28/1973 first rib on the left side removed. RETRIEV INTRAVASC FOREGN BODY 02/26/2012 IVC REMOVAL S SLING RUSSELL MCNEIL TOTL 4821 10/26/2005 Obtyrex midurethral sling STENT PLACEMENT 2004 approx per pt cardiac x 2 THYROIDECTOMY TOTAL/COMPLETE 02/02/2014 TOTAL - percancerous. TONSILLECTOMY PRIMARY/SECONDARY AGE 12/> TOTAL ABDOMINAL HYSTERECT W/WO RMVL TUBE OVARY 10/19/2007 for ovarian cancer URODYNAMICS 09/09/[address] Shea ALLERGIES Streptokinase, Poison Araceli, Poison [place] Extract, and Streptokinesis [Other] MEDICATIONS levothyroxine (LEVOXYL) 125 mcg tablet Take 1 tablet by mouth once daily. Take on empty stomach. For thyroid. mirabegron (MYRBETRIQ) 50 mg Tb24 Take 1 tablet by mouth once daily. sucralfate (CARAFATE) 1 gram tablet Take 1 tablet by mouth before meals and at bedtime. lansoprazole (PREVACID) 30 mg capsule Take 1 capsule by mouth daily before breakfast. 1/2 hr before meal. niacin ER (NIASPAN) 500 mg tablet Take 1 tablet by mouth twice daily. cholecalciferol, Vitamin D3, (VITAMIN D3) 1,250 mcg (50,000 unit) cap capsule TAKE 1 CAPSULE BY MOUTH ONCE A WEEK warfarin (COUMADIN) 5 mg tablet 5 mg Mon, Wed, Sun, Sat, 2.5 mg all other days or as directed furosemide (LASIX) 40 mg tablet Take 1 tablet by mouth once daily. potassium chloride 20 mEq TbER Take 1 tablet by mouth once daily. ramipril (ALTACE) 10 mg capsule Take two (2) by mouth once daily. rosuvastatin (CRESTOR) 40 mg tablet Take 1 tablet by mouth once daily. hydroCHLOROthiazide (MICROZIDE) 12.5 mg capsule Take 1 capsule by mouth once daily. albuterol HFA (PROAIR HFA) 90 mcg/actuation inhaler Inhale 2 Puffs as instructed every 6 hours as needed. nitroglycerin(NITROQUICK 0.4 MG SUBLINGUAL TAB) ASPIRIN 81 MG TAB Take one(1) tablet daily. CALCIUM 500 MG TAB Take one(1) tablet two(2) times daily. TYLENOL PM 25 MG-500 MG TAB Take two(2) at bedtime ATENOLOL 50 MG TAB Take one(1) tablet two(2) times daily. FAMILY HISTORY Problem Relation Age of Onset Hypertension Mother Stroke Mother other (ceribral hemorige) Maternal Grandfather other (htn) Maternal Grandfather Lipids Sister Lipids Brother Hypertension Sister Hypertension Brother Social History Tobacco Use Smoking status: Former Packs/day: 0.50 Years: 30.00 Pack years: 15.00 Types: Cigarettes Quit date: 03/14/2000 Years since quittin.9 Smokeless tobacco: Never Tobacco comments: Parents smoked in childhood home. Spouse smoked pipe and cigar occasionally in home. Vaping Use Vaping Use: Never used Substance Use Topics Alcohol use: Yes Comment: Rarely. Drug use: No BP 120/68 Pulse 84 Temp 36.9 C (98.4 F) Resp 18 Wt 95.7 kg (211 lb) LMP 05/28/1990 SpO2 97% BMI 36.22 kg/m Review of Systems Constitutional: Negative for chills, fever and malaise/fatigue. HENT: Negative for congestion, ear discharge, ear pain, sinus pain and sore throat. Eyes: Negative for blurred vision, pain, discharge and redness. Respiratory: Negative for cough, hemoptysis, sputum production, shortness of breath, wheezing and stridor. Cardiovascular: Negative for chest pain. Gastrointestinal: Negative for abdominal pain, diarrhea, nausea and vomiting. Genitourinary: Positive for dysuria, frequency and urgency. Negative for flank pain and hematuria. Musculoskeletal: Negative for myalgias. Skin: Negative for itching and rash. Neurological: Negative for dizziness and headaches. Objective Physical Exam Constitutional: General: She is not in acute distress. Appearance: She is not diaphoretic. HENT: Head: Normocephalic. Eyes: Conjunctiva/sclera: Conjunctivae normal. Pupils: Pupils are equal, round, and reactive to light. Cardiovascular: Rate and Rhythm: Normal rate and regular rhythm. Heart sounds: Normal heart sounds. Pulmonary: Effort: Pulmonary effort is normal. No tachypnea, accessory muscle usage or respiratory distress. Breath sounds: Normal breath sounds. No stridor. No wheezing, rhonchi or rales. Abdominal: General: There is no distension. Palpations: Abdomen is soft. Tenderness: There is no abdominal tenderness. There is no right CVA tenderness, left CVA tenderness, guarding or rebound. Musculoskeletal: Cervical back: Normal range of motion. Skin: General: Skin is warm and dry. Neurological: Mental Status: She is alert and oriented to person, place, and time. ASSESSMENT/PLAN: 1. Urinary frequency - ICD9: 788.41, ICD10: R35.0 - UA DIP, URINE (POC) - URINE CULTURE Leukocytes and blood noted on urine culture. Most prominent bacteria noted on positive urine cultures was E. coli. Will start Keflex today due to creatinine clearance of 40. Patient was educated on supportive therapies. Patient will contact Coumadin clinic regarding starting antibiotics. Patient will follow up with primary care provider as needed. Patient was instructed to immediately proceed to emergency room for any new, worsening, or symptoms lasting longer than anticipated. The patient's clinical presentation is otherwise unremarkable at this time. Based on exam and clinical finding, the patient is stable for discharge. Plan of care was discussed with patient. Patient verbalizes understanding and agrees to plan of care. This note was generated using [employer] software. It may contain errors in wording, punctuation, or spelling. Avtar Mccartney APRN.MIKA documented in this encounter [facility] 02-14-2022 History of Presen t illness Narrative Noted I agree with the advice given Samantha Reyes MD patient had inr completed at [facility] patients inr is 2.6 (patients inr range is 2.0-3.0) patient is currently taking 5mg Thurs,Fri and 2.5mg all other days patients last dose change was on 02/03/22 due to a low level of 1.7 (dose at that time was 5mg Thurs and 2.5mg all other days) patient has had no changes in medication except for coumadin and no missed doses and no change in diet FYI- information is being sent to Dr Waite at this time to handle inr results as they are trying to get patient scheduled for cardioversion. patient has been scheduled for a 1 week follow up inr on 9/27/22 documented in this encounter [facility] 02-14-2022 Miscellaneous Notes Patient notified of new dosage instructions with understanding. She will keep her upcoming appointment. Asha Moore Ma Her TSH is low at 0.17, which indicates that her dose of thyroid medicine is too high. I would like to change her to levothyroxine 125 mcg daily; order done. She has appt on 04/04, so we can discuss it further at that time Samantha Reyes MD Patient calling to request PCP review lab results done @ [facility] on 02/09. Results in Epic. Dr. Waite's office told her that her TSH was off and she needs to talk to her PCP about this. Sandrine Vincent RN documented in this encounter [facility] 02-03-2022 Miscellaneous Notes Pt. informed. Laurie Hills LPN Increase dose of coumadin to 5 mg on , Sunday and 2.5 mg other days of the week, recheck INR 1 week Gabe Matthews DO Last INR: INR (POCT) 1.7 02/03/2022 Current dose of coumadin is: 5 mg Thurs, 2.5 mg all other days. Last date of dose change: 01/02/22. Previous INR (date and result): 02/01/22 INR: 1.7 Additional Clinical Information or narrative: no documented in this encounter [facility] 02-02-2022 Miscellaneous Notes Addended by: AVTAR GARCIA on: 02/02/2022 04:12 PM Modules accepted: Orders documented in this encounter [facility] 02-02-2022 History of Presen t illness Narrative Contacted patient and advise to come to lab to have blood drawn for INR. She voiced understanding. Josefina Mcleod MA Patient notified and voiced understanding. Tried to scheduled with coumadin nurse for Sunday would not allow. Was going to check with nurse. Coumadin nurse is out. Patient will need to come to the lab. Will need order. I will advise patient to come early so that we can get results back earlier in the day. Josefina Mcleod MA Let patient know Macrobid can cause her INR ti increase. I do not want to change her dosing at this time. However I want her to get a repeat INR this Sunday. patient had inr completed at [facility] patients inr is 1.7 (patients inr range is 2.0-3.0) patient is currently taking 5mg Thurs and 2.5mg all other days patients last dose change was on 01/23/22 due to a high level of 3.2 (dose at that time was 5mg Mon,Thurs and 2.5mg all other days) patient has had a change in medication as pt will be starting macrobid today and no missed doses and no change in diet Advised patient that they would be contacted regarding medication dose and when to follow up after information is reviewed by provider. After provider review please contact the patient with information and schedule follow up appointment with coumadin clinic. ok to leave a detailed message if no answer FYI- patient has been scheduled for a 2 week follow up inr on 02/14/22 documented in this encounter [facility] 02-01-2022 History of Presen t illness Narrative Patient presents with: Urinary Frequency: burning with urination x 1 day HPI: Symptoms since yesterday. Dysuria: Yes Frequency: Yes, only able to accomplish dribbles when she gets to the bathroom Hematuria: No Nausea: Yes Fever or chills: chills/sweat from pain Back pain: Yes, midline lower Abdominal pain: bladder area Prior UTI: Yes Personal history of kidney stones: No Family history of kidney stones: brother PAST MEDICAL HISTORY Diagnosis Date Diarrhea Diverticulosis of small intestine (without mention of hemorrhage) DVT of leg (deep venous thrombosis) (HCC) Essential hypertension, benign FH: atrial fibrillation Heart attack (HCC) 1999 Hernia Internal hemorrhoids without mention of complication Malignant neoplasm of ovary (HCC) Other and unspecified hyperlipidemia Other pulmonary embolism and infarction Other specified acquired hypothyroidism Postsurgical aortocoronary bypass status Pulmonary embolism (HCC) hx in Snoring Symptomatic menopausal or female climacteric states Unspecified cardiovascular disease Urinary incontinence PAST SURGICAL HISTORY Procedure Laterality Date ANESTHESIA LUMBAR REGION NOS disc procedure, 2 levels APPENDECTOMY CABG, ARTERIAL, FOUR+ 02/26/2000 COLONOSCOPY 09/27/2004 COLONOSCOPY FLX DX W/COLLJ SPEC WHEN PFRMD 12/07/2014 Colonoscopy ESOPHAGOGASTRODUODENOSCOPY TRANSORAL DIAGNOSTIC 01/23/2012 EGD HEART SURGERY HX LIG/TRNSXJ FLP TUBE ABDL/VAG APPR UNI/BI NEUROPLASTY &/TRANSPOS MEDIAN NRV CARPAL TUNNE 09/11/2014 Left CTR NEUROPLASTY &/TRANSPOSITION ULNAR NERVE ELBOW 09/11/2014 Ulnar nerve decompression left elbow OOPHORECTOMY PARTIAL/TOTAL UNI/BI 10/19/2007 Ovarian cancer, [facility] PAST SURGICAL HISTORY OF 05/28/1973 first rib on the left side removed. RETRIEV INTRAVASC FOREGN BODY 02/26/2012 IVC REMOVAL S SLING BLADR PELVI TOTL 4821 10/26/2005 Obtyrex midurethral sling STENT PLACEMENT 2004 approx per pt cardiac x 2 THYROIDECTOMY TOTAL/COMPLETE 02/02/2014 TOTAL - percancerous. TONSILLECTOMY PRIMARY/SECONDARY AGE 12/> TOTAL ABDOMINAL HYSTERECT W/WO RMVL TUBE OVARY 10/19/2007 for ovarian cancer URODYNAMICS 09/09/[address] Shea MEDICATIONS: Current Outpatient Medications Medication Sig sucralfate (CARAFATE) 1 gram tablet Take 1 tablet by mouth before meals and at bedtime. lansoprazole (PREVACID) 30 mg capsule Take 1 capsule by mouth daily before breakfast. 1/2 hr before meal. niacin ER (NIASPAN) 500 mg tablet Take 1 tablet by mouth twice daily. cholecalciferol, Vitamin D3, (VITAMIN D3) 1,250 mcg (50,000 unit) cap capsule TAKE 1 CAPSULE BY MOUTH ONCE A WEEK warfarin (COUMADIN) 5 mg tablet 5 mg Mon, Wed, Fri, Sat, 2.5 mg all other days or as directed furosemide (LASIX) 40 mg tablet Take 1 tablet by mouth once daily. potassium chloride 20 mEq TbER Take 1 tablet by mouth once daily. mirabegron (MYRBETRIQ) 50 mg Tb24 Take 1 tablet by mouth once daily. levothyroxine 137 mcg cap Take 1 capsule by mouth daily before breakfast. ramipril (ALTACE) 10 mg capsule Take two (2) by mouth once daily. rosuvastatin (CRESTOR) 40 mg tablet Take 1 tablet by mouth once daily. hydroCHLOROthiazide (MICROZIDE) 12.5 mg capsule Take 1 capsule by mouth once daily. albuterol HFA (PROAIR HFA) 90 mcg/actuation inhaler Inhale 2 Puffs as instructed every 6 hours as needed. nitroglycerin(NITROQUICK 0.4 MG SUBLINGUAL TAB) ASPIRIN 81 MG TAB Take one(1) tablet daily. CALCIUM 500 MG TAB Take one(1) tablet two(2) times daily. TYLENOL PM 25 MG-500 MG TAB Take two(2) at bedtime ATENOLOL 50 MG TAB Take one(1) tablet two(2) times daily. No current facility-administered medications for this visit. ALLERGIES: ALLERGIES Allergen Reactions Streptokinase Hives Poison Araceli Streptokinesis [Oth* hives VITALS: BP 112/72 Pulse 72 Temp 36.2 C (97.1 F) Resp 16 Wt 96.6 kg (213 lb) LMP 05/28/1990 SpO2 97% BMI 36.56 kg/m PHYSICAL EXAM: GEN: NAD HEENT: EOMI, conjunctiva clear, moist mucous membranes HEART: regular rate and rhythm, no murmurs LUNGS: clear to auscultation, no wheezes or crackles, no increased WOB ABDOMEN: Soft, nondistended, no masses, no suprapubic tenderness BACK: No CVA tenderness Component Latest Ref Rng & Units 09/09/2021 eGFR >=60 mL/min/1.73m 37 (L) ASSESSMENT/PLAN: 1. Urinary frequency - ICD9: 788.41, ICD10: R35.0 (primary diagnosis) 2. Burning with urination - ICD9: 788.1, ICD10: R30.0 - UA DIP, URINE (POC) trace blood, small LE - URINE CULTURE Treat UTI with - NITROFURANTOIN MONOHYDRATE & MACROCRYSTAL 100 MG ORAL CAP Derick Atkins MD documented in this encounter [facility] 01-19-2022 History of Presen t illness Narrative Images from the original note were not included. Subjective Patient came in with complaints of falling on her left knee. She tripped over a cord her had in front of the door. She does have some bruising due to being on blood thinners. She is having no pain at all. Family is concerned about injury. Patient is okay with getting xray to rule out any fractures. The history is provided by the patient. No grip boss was used. Fall Review of Systems Constitutional: Negative. Skin: Negative. Objective Physical Exam Constitutional: Appearance: Normal appearance. Pulmonary: Effort: Pulmonary effort is normal. Musculoskeletal: Legs: Comments: Bruising in this area on different stages of healing. No swelling or warmth noted. No erythema noted. Neurological: Mental Status: She is alert. PAST MEDICAL HISTORY Diagnosis Date Diarrhea Diverticulosis of small intestine (without mention of hemorrhage) DVT of leg (deep venous thrombosis) (HCC) Essential hypertension, benign FH: atrial fibrillation Heart attack (HCC) 2000 Hernia Internal hemorrhoids without mention of complication Malignant neoplasm of ovary (HCC) Other and unspecified hyperlipidemia Other pulmonary embolism and infarction Other specified acquired hypothyroidism Postsurgical aortocoronary bypass status Pulmonary embolism (HCC) hx in Snoring Symptomatic menopausal or female climacteric states Unspecified cardiovascular disease Urinary incontinence PAST SURGICAL HISTORY Procedure Laterality Date ANESTHESIA LUMBAR REGION NOS disc procedure, 2 levels APPENDECTOMY CABG, ARTERIAL, FOUR+ 02/26/2000 COLONOSCOPY 09/27/2004 COLONOSCOPY FLX DX W/COLLJ SPEC WHEN PFRMD 12/07/2014 Colonoscopy ESOPHAGOGASTRODUODENOSCOPY TRANSORAL DIAGNOSTIC 01/23/2012 EGD HEART SURGERY HX LIG/TRNSXJ FLP TUBE ABDL/VAG APPR UNI/BI NEUROPLASTY &/TRANSPOS MEDIAN NRV CARPAL TUNNE 09/11/2014 Left CTR NEUROPLASTY &/TRANSPOSITION ULNAR NERVE ELBOW 09/11/2014 Ulnar nerve decompression left elbow OOPHORECTOMY PARTIAL/TOTAL UNI/BI 10/19/2007 Ovarian cancer, [facility] PAST SURGICAL HISTORY OF 05/28/1973 first rib on the left side removed. RETRIEV INTRAVASC FOREGN BODY 02/26/2012 IVC REMOVAL S SLING BLADR PELVI TOTL 4821 10/26/2005 Obtyrex midurethral sling STENT PLACEMENT 2004 approx per pt cardiac x 2 THYROIDECTOMY TOTAL/COMPLETE 02/02/2014 TOTAL - percancerous. TONSILLECTOMY PRIMARY/SECONDARY AGE 12/> TOTAL ABDOMINAL HYSTERECT W/WO RMVL TUBE OVARY 10/19/2007 for ovarian cancer URODYNAMICS 09/09/[address] Shea ALLERGIES Streptokinase, Poison Araceli, and Streptokinesis [Other] MEDICATIONS sucralfate (CARAFATE) 1 gram tablet Take 1 tablet by mouth before meals and at bedtime. lansoprazole (PREVACID) 30 mg capsule Take 1 capsule by mouth daily before breakfast. 1/2 hr before meal. niacin ER (NIASPAN) 500 mg tablet Take 1 tablet by mouth twice daily. cholecalciferol, Vitamin D3, (VITAMIN D3) 1,250 mcg (50,000 unit) cap capsule TAKE 1 CAPSULE BY MOUTH ONCE A WEEK warfarin (COUMADIN) 5 mg tablet 5 mg Mon, Wed, Fri, Sat, 2.5 mg all other days or as directed furosemide (LASIX) 40 mg tablet Take 1 tablet by mouth once daily. potassium chloride 20 mEq TbER Take 1 tablet by mouth once daily. mirabegron (MYRBETRIQ) 50 mg Tb24 Take 1 tablet by mouth once daily. levothyroxine 137 mcg cap Take 1 capsule by mouth daily before breakfast. ramipril (ALTACE) 10 mg capsule Take two (2) by mouth once daily. rosuvastatin (CRESTOR) 40 mg tablet Take 1 tablet by mouth once daily. hydroCHLOROthiazide (MICROZIDE) 12.5 mg capsule Take 1 capsule by mouth once daily. albuterol HFA (PROAIR HFA) 90 mcg/actuation inhaler Inhale 2 Puffs as instructed every 6 hours as needed. nitroglycerin(NITROQUICK 0.4 MG SUBLINGUAL TAB) ASPIRIN 81 MG TAB Take one(1) tablet daily. CALCIUM 500 MG TAB Take one(1) tablet two(2) times daily. TYLENOL PM 25 MG-500 MG TAB Take two(2) at bedtime ATENOLOL 50 MG TAB Take one(1) tablet two(2) times daily. FAMILY HISTORY Problem Relation Age of Onset Hypertension Mother Stroke Mother other (ceribral hemorige) Maternal Grandfather other (htn) Maternal Grandfather Lipids Sister Lipids Brother Hypertension Sister Hypertension Brother Social History Tobacco Use Smoking status: Former Packs/day: 0.50 Years: 30.00 Pack years: 15.00 Types: Cigarettes Quit date: 03/14/2000 Years since quittin.8 Smokeless tobacco: Never Tobacco comments: Parents smoked in childhood home. Spouse smoked pipe and cigar occasionally in home. Vaping Use Vaping Use: Never used Substance Use Topics Alcohol use: Yes Comment: Rarely. Drug use: No ASSESSMENT/PLAN: 1. Fall, initial encounter - ICD9: E888.9, ICD10: W19.XXXA - XR KNEE GENERAL 4V AP BOTH/PA BOTH/LAT/MERC LEFT RESULT: Standing frontal radiographs of the bilateral knees with bilateral PA flexion views, sunrise views and a lateral view of the left knee show no acute osseous or articular process. No evidence of fracture or dislocation. There is pancompartmental degenerative change present with periarticular osteophytosis and narrowing of the left medial tibiofemoral joint compartment. There is intercondylar and patellar spurring with mild narrowing of the bilateral lateral patellofemoral joint spaces, right greater than left. Small amount of left suprapatellar joint fluid. The soft tissues demonstrate mild prepatellar and infrapatellar soft tissue swelling. No evidence of radiopaque foreign body. IMPRESSION IMPRESSION: Small amount of left joint fluid and prepatellar and infrapatellar soft tissue swelling.. Degenerative changes as detailed in report. No evidence of fracture or dislocation. Guest House Manager: CHAPINCITO Transcribe Date/Time: Jan 19 2022 1:58P Dictated by : NICK DE PAZ MD Patient was updated and will follow up if anything changes. Sylwia Mcleod APRN.INSTRUMENT INSTALLER documented in this encounter [facility] 01-09-2022 History of Presen t illness Narrative Call to pt and notified her of message below. Pt verbalized understanding. Tracker updated. Deborah Carlisle Ma Stay on 5mg Mon,Thurs and 2.5mg all other days Recheck in 2 weeks as planned Samantha Reyes MD patient had inr completed at [facility] patients inr is 1.4 (patients inr range is 2.0-3.0) patient is currently taking 5mg Mon,Thurs and 2.5mg all other days patients last dose change was on 01/02/22 due to a high level of 4.5 (dose at that time was 5mg Mon,Wed,Fri and 2.5mg all other days) patient has had no changes in medication except for coumadin and no uninstructed missed doses and no change in diet FYI- patient has instructed to hold 3 doses last week Advised patient that they would be contacted regarding medication dose and when to follow up after information is reviewed by provider. After provider review please contact the patient with information and schedule follow up appointment with coumadin clinic. ok to leave a detailed message if no answer FYI- patient has been scheduled for a 2 week follow up inr on 01/23/22 documented in this encounter [facility] 01-02-2022 History of Presen t illness Narrative Tracker updated. Deborah Carlisle Ma Discussed at appt; hold for three days, then go to 5 mg Mon and Thurs, 2.5 mg all other days Recheck in 1 week as planned Samantha Reyes MD patient had inr completed at [facility] patients inr is 4.5 (patients inr range is 2.0-3.0) patient is currently taking 5mg Mon,Wed,Fri and 2.5mg all other days patients last dose change was on 12/15/21 due to a low level of 1.5 (dose at that time was 5mg Mon,Wed and 2.5mg all other days) patient has had no changes in medication except for coumadin and no missed doses and no change in diet patient has appt with pcp and has been instructed to discuss results at [facility] patient has been scheduled for a 1 week inr follow up on 01/09/22 documented in this encounter [facility] 01-02-2022 History of Presen t illness Narrative Chief Complaint Patient presents with: 6 Month Exam HPI Sandrine Rivers is a 81 year old female who presents here today for a 6 month follow up. Pt here today for a 6 month follow up. Was seen in September for an acute visit. Follows with Dr. Freire for eye exams. Denies any stomach or bowel issues. Does follow with [employer] due to incontinence. See's Dr. Sheba Cortez. Pt on current regimen of Mybetriq 50 mg daily. GERD: Stable with use of current regimen of Carafate 1 gram with meals. No longer taking Prevacid because she felt that the Carafate was working well for her. Thyroid: Denies any missed dosages of her current regimen of Synthroid 137 mcg once daily. Feels she's stable on this dosage. Lipid/CAD: Does try to watch her diet, eating fruits and vegetables. Denies any formal exercise, but does do chores around the home. Has to be careful due to fall risk, legs feeling weak. On current regimen of Crestor 40 mg daily, tolerating well. HTN: Checking BP at home, stable. Does have chest pain, sob and dizziness, but this is chronic for her. Follows with Dr. Waite at [facility]. Was seen on 10/17/21 due to sob with exertion. If cardiac testing normal that pt was ordered to complete, consider PFT's. Pt on current regimen of Lasix 40 mg once daily, Potassium 20 meq once daily, Altace 10 mg 2 caps po once daily and HCTZ 12.5 mg once daily. Had stress test and echo done in November which were OK. Afib: INR managed by this office, on daily Coumadin. She was in the [facility] [facility] [facility] in November for chest pains, was in a-fib. She was told her heart was fine. Was sent home. INR today 4.5, changed dosage to: Hold coumadin x 3 days then go back to 5 mg Sun & , 2.5 mg all other days. Pain: Having some issues with abdominal pain off and on x 3-4 months but more constant the past 2-3 weeks. Feels pressure in the mid upper abdomen, a bloating sensation. Does use Carafate. She states she is not taking Prevacid any longer. No nausea, vomiting, diarrhea, or constipation. No urinary sx. Eating tends to flare up the abdominal discomfort. Having more SOB, with walking, laying down, sitting, has to sit down a lot when up making supper due to the SOB. She feels like her legs get weak or don't want to move. No swelling in the legs. She does take Lasix. Past medical history, appointments, medications, allergies reviewed. Previous Medical History PAST MEDICAL HISTORY Diagnosis Date Diarrhea Diverticulosis of small intestine (without mention of hemorrhage) DVT of leg (deep venous thrombosis) (HCC) Essential hypertension, benign FH: atrial fibrillation Heart attack (HCC) 1999 Hernia Internal hemorrhoids without mention of complication Malignant neoplasm of ovary (HCC) Other and unspecified hyperlipidemia Other pulmonary embolism and infarction Other specified acquired hypothyroidism Postsurgical aortocoronary bypass status Pulmonary embolism (HCC) hx in Snoring Symptomatic menopausal or female climacteric states Unspecified cardiovascular disease Urinary incontinence Previous Surgical History PAST SURGICAL HISTORY Procedure Laterality Date ANESTHESIA LUMBAR REGION NOS disc procedure, 2 levels APPENDECTOMY CABG, ARTERIAL, FOUR+ 02/26/2000 COLONOSCOPY 09/27/2004 COLONOSCOPY FLX DX W/COLLJ SPEC WHEN PFRMD 12/07/2014 Colonoscopy ESOPHAGOGASTRODUODENOSCOPY TRANSORAL DIAGNOSTIC 01/23/2012 EGD HEART SURGERY HX LIG/TRNSXJ FLP TUBE ABDL/VAG APPR UNI/BI NEUROPLASTY &/TRANSPOS MEDIAN NRV CARPAL TUNNE 09/11/2014 Left CTR NEUROPLASTY &/TRANSPOSITION ULNAR NERVE ELBOW 09/11/2014 Ulnar nerve decompression left elbow OOPHORECTOMY PARTIAL/TOTAL UNI/BI 10/19/2007 Ovarian cancer, [facility] PAST SURGICAL HISTORY OF 05/28/1973 first rib on the left side removed. RETRIEV INTRAVASC FOREGN BODY 02/26/2012 IVC REMOVAL S SLING BLADR PELVI TOTL 4821 10/26/2005 Obtyrex midurethral sling STENT PLACEMENT 2005 approx per pt cardiac x 2 THYROIDECTOMY TOTAL/COMPLETE 02/02/2014 TOTAL - percancerous. TONSILLECTOMY PRIMARY/SECONDARY AGE 12/> TOTAL ABDOMINAL HYSTERECT W/WO RMVL TUBE OVARY 10/19/2007 for ovarian cancer URODYNAMICS 09/09/[address] Shea Family History FAMILY HISTORY Problem Relation Age of Onset Hypertension Mother Stroke Mother other (ceribral hemorige) Maternal Grandfather other (htn) Maternal Grandfather Lipids Sister Lipids Brother Hypertension Sister Hypertension Brother Patient Allergies ALLERGIES Allergen Reactions Streptokinase Hives Poison Araceli Streptokinesis [Oth* hives Current Medications Current Outpatient Medications on File Prior to Visit Medication Sig warfarin (COUMADIN) 5 mg tablet 5 mg Mon, Wed, Fri, Sat, 2.5 mg all other days or as directed furosemide (LASIX) 40 mg tablet Take 1 tablet by mouth once daily. potassium chloride 20 mEq TbER Take 1 tablet by mouth once daily. mirabegron (MYRBETRIQ) 50 mg Tb24 Take 1 tablet by mouth once daily. levothyroxine 137 mcg cap Take 1 capsule by mouth daily before breakfast. ramipril (ALTACE) 10 mg capsule Take two (2) by mouth once daily. rosuvastatin (CRESTOR) 40 mg tablet Take 1 tablet by mouth once daily. sucralfate (CARAFATE) 1 gram tablet Take 1 tablet by mouth before meals and at bedtime. hydroCHLOROthiazide (MICROZIDE) 12.5 mg capsule Take 1 capsule by mouth once daily. niacin ER (NIASPAN) 500 mg tablet Take 1 tablet by mouth twice daily. cholecalciferol, Vitamin D3, (VITAMIN D3) 1,250 mcg (50,000 unit) cap capsule Take 1 capsule by mouth one time a week. albuterol HFA (PROAIR HFA) 90 mcg/actuation inhaler Inhale 2 Puffs as instructed every 6 hours as needed. lansoprazole (PREVACID) 30 mg capsule Take 1 capsule by mouth daily before breakfast. 1/2 hr before meal. nitroglycerin(NITROQUICK 0.4 MG SUBLINGUAL TAB) ASPIRIN 81 MG TAB Take one(1) tablet daily. CALCIUM 500 MG TAB Take one(1) tablet two(2) times daily. TYLENOL PM 25 MG-500 MG TAB Take two(2) at bedtime ATENOLOL 50 MG TAB Take one(1) tablet two(2) times daily. No current facility-administered medications on file prior to visit. Social History Social History Tobacco Use Smoking status: Former Packs/day: 0.50 Years: 30.00 Pack years: 15.00 Types: Cigarettes Quit date: 03/14/2000 Years since quittin.8 Smokeless tobacco: Never Tobacco comments: Parents smoked in childhood home. Spouse smoked pipe and cigar occasionally in home. Vaping Use Vaping Use: Never used Substance Use Topics Alcohol use: Yes Comment: Rarely. Drug use: No EXAM: BP 122/70 Pulse 72 Resp 16 Wt 96 kg (211 lb 9.6 oz) LMP 05/28/1990 BMI 36.32 kg/m General Appearance: Well appearing, alert, in no acute distress, well-hydrated, well nourished. and Obese. Lungs: Lungs clear to auscultation. No wheezing, rhonchi, rales.. Heart: RRR without murmur, gallop, or rubs. No ectopy. Abdomen: Normal abdominal exam, Abdomen soft, non-tender. Bowel sounds normal. No masses, organomegaly. Health Maintenance List SHINGRIX VACCINE(2 of 3) due on 02/09/2012 ADVANCE DIRECTIVE DISCUSSION Never done COVID-19 VACCINE(4 - Booster) due on 08/10/2021 INFLUENZA(1) due on 01/26/2022 LDL CHOLESTEROL due on 09/09/2022 DIABETES SCREEN due on 09/09/2024 DTAP,TDAP,TD(3 - Td or Tdap) due on 07/13/2026 BONE DENSITY Completed PNEUMOCOCCAL: 65+ Completed Data reviewed None ASSESSMENT/PLAN: 1. Essential hypertension, benign - ICD9: 401.1, ICD10: I10 (primary diagnosis) - good control - Continue current medication(s) - Recommended regular aerobic exercise. - Recommend home blood pressure monitoring, to bring results in on next visit - Goal of BP <130/80 2. Atherosclerosis of [place] coronary artery of [place] heart without angina pectoris - ICD9: 414.01, ICD10: I25.10 Continue current medications. Continue with Dog [employer] Dough Mixer-Dr. Waite 3. Atrial fibrillation, unspecified type (HCC) - ICD9: 427.31, ICD10: I48.91 INR high today Hold coumadin x 3 days then go back to 5 mg M/TH, 2.5 mg all other days. 4. Gastroesophageal reflux disease, unspecified whether esophagitis present - ICD9: 530.81, ICD10: K21.9 - Discussed lifestyle modifications including losing weight, limiting caffeine, no meals three hours before sleep, and head of bed elevation - Begin treatment with Prevacid 30 mg QD - Continue treatment with carafate QID with meals 5. Hypothyroidism, unspecified type - ICD9: 244.9, ICD10: E03.9 - Instructed patient on importance of taking on an empty stomach either first thing in the morning or at bedtime. Continue current medications. 6. Obesity, Class II, BMI 35-39.9 - ICD9: 278.00, ICD10: E66.9 Weight decreasing Recommend healthy diet and regular exercise Follow up in 3 months with fasting labs prior. Call if stomach does nto improve with prevacid. I agree with the Chief Complaint, ROS, and Past Histories independently gathered by the clinical pharmacy retail support specialist and the remaining scribed note accurately describes my personal service to the patient. Medical Decision Making: Problems: Moderate: 2+ stable chronic illnesses Data: Unique test result(s) reviewed: 1 Unique test(s) ordered: 3+ Risk: Moderate: Drug management Medical Decision Making Level: 4 - Moderate Samantha Reyes MD The documentation for this note was completed by Julia Patel Ma acting as scribe for Samantha Reyes MD. January 02, 2022 9:07 AM. Julia Patel Ma documented in this encounter [facility] 12-30-2021 Miscellaneous Notes Filled in other TE. Charles Chavez APRN.CNP documented in this encounter [facility] 12-30-2021 Miscellaneous Notes The following approved medication requests have been transmitted electronically. Pending Prescriptions Disp Refills NIACIN ER 500 MG TABLET,EXTENDED RELEASE 24 HR 60 tablet 11 Sig: Take 1 tablet by mouth twice daily. KATELYN: No Charles Chavez APRN.CNP Patient has been identified by name and date of : Yes Pending Prescriptions Disp Refills NIACIN ER 500 MG TABLET,EXTENDED RELEASE 24 HR 60 tablet 11 Sig: Take 1 tablet by mouth twice daily. KATELYN: No DEANN-10/17/21 Labs- NOV-01/02/22 med filled 12/17/20 RX INSTRUCTIONS: Patient aware RX will be sent to pharmacy. No need to notify patient. Jenna Donohue Pss documented in this encounter [facility] 12-23-2021 Miscellaneous Notes The following approved medication requests have been transmitted electronically. Pending Prescriptions Disp Refills CHOLECALCIFEROL (VITAMIN D3) 1,250 MCG (50,000 UNIT) CAPSULE 12 capsule 3 Sig: TAKE 1 CAPSULE BY MOUTH ONCE A WEEK KATELYN: Yes Charles Chavez APRN.CNP Patient has been identified by name and date of : Yes Pending Prescriptions Disp Refills CHOLECALCIFEROL (VITAMIN D3) 1,250 MCG (50,000 UNIT) CAPSULE 12 capsule 3 Sig: TAKE 1 CAPSULE BY MOUTH ONCE A WEEK KATELYN: Yes DEANN-10/17/21 Labs-10/18/21 NOV-01/02/22 med filled 10/22/20 RX INSTRUCTIONS: Patient aware RX will be sent to pharmacy. No need to notify patient. Latoya Chapa [id number] documented in this encounter [facility] 12-23-2021 Miscellaneous Notes This was a duplicate request for a refill Opened in error documented in this encounter [facility] 12-15-2021 History of Presen t illness Narrative Pt notified and repeated instructions back. Tracker and med list updated. Julia Patel Ma Go to 5 mg Mon, Wed, Fri, Sat; 2.5mg all other days Recheck as planned on 01/02 Samantha Reyes MD patient had inr completed at [facility] patients inr is 1.5 (patients inr range is 2.0-3.0) patient is currently taking 5mg Mon,Wed,Fri and 2.5mg all other days patients last dose change was on 10/25/21 due to a high level of 3.3 (dose at that time was 5mg Mon,Wed,Fri and 2.5mg all other days) patient has had no changes in medication and no missed doses and no change in diet Advised patient that they would be contacted regarding medication dose and when to follow up after information is reviewed by provider. After provider review please contact the patient with information and schedule follow up appointment with coumadin clinic. ok to leave a detailed message if no answer FYI- patient has been scheduled for an inr follow up on 01/02/22 - pt has appt with pcp also this day documented in this encounter [facility] 12-09-2021 Miscellaneous Notes The following approved medication requests have been transmitted electronically. Pending Prescriptions Disp Refills FUROSEMIDE 40 MG TABLET 90 tablet 3 Sig: Take 1 tablet by mouth once daily. KATELYN: No Charles Chavez APRN.INSTRUMENT INSTALLER Patient phones requesting refills as follows: Pending Prescriptions Disp Refills FUROSEMIDE 40 MG TABLET 90 tablet 3 Sig: Take 1 tablet by mouth once daily. KATELYN: No DEANN-10/17/21 Lab-10/18/2101/02/22 med filled 10/11/21 Please review and advise. Jaylin Berkowitz LPN Put in dispensing and refills documented in this encounter [facility] 11-23-2021 Miscellaneous Notes Pt dropped of disc that had chest imaging done at [facility]. Records printed off and sent to scanning. Message left notifying pt that disc is at [facility] for pick up man. Julia Patel Ma documented in this encounter [facility] 11-22-2021 Miscellaneous Notes Spoke with pt and information listed below given. Pt verbalizes understanding. Pt states the medication is helping and she already has a follow up scheduled. Ame Donohue LPN Left message for patient to return call. Anila Wilkes ----- Message from Odessa Sanchez APRN.INSTRUMENT INSTALLER sent at 11/22/2021 12:17 PM EDT ----- Urine culture did not show clear evidence of infection. The sample may have been contaminated with skin bacteria during collection. She may continue to take antibiotic if it has been helpful. Recommend follow up with PCP to ensure hematuria has resolved. Odessa Sanchez CNP documented in this encounter [facility] 11-21-2021 History of Presen t illness Narrative Subjective Sandrine Rivers is an 81 year old female who presents with urinary frequency, urgency, and burning for 3 days. Denies fever, chills, flank pain, or abdominal pain. Denies taking any medications for her symptoms. Review of Systems Constitutional: Negative for chills and fever. Respiratory: Negative for shortness of breath. Cardiovascular: Negative for chest pain and palpitations. Gastrointestinal: Negative for abdominal pain, constipation, diarrhea, nausea and vomiting. Genitourinary: Positive for dysuria, frequency and urgency. Negative for flank pain. Neurological: Negative for weakness. BP 118/78 Pulse 78 Temp 36.3 C (97.3 F) Resp 21 Wt 96.7 kg (213 lb 3.2 oz) LMP 05/28/1990 SpO2 98% BMI 36.60 kg/m PAST MEDICAL HISTORY Diagnosis Date Diarrhea Diverticulosis of small intestine (without mention of hemorrhage) DVT of leg (deep venous thrombosis) (HCC) Essential hypertension, benign FH: atrial fibrillation Heart attack (HCC) 1999 Hernia Internal hemorrhoids without mention of complication Malignant neoplasm of ovary (HCC) Other and unspecified hyperlipidemia Other pulmonary embolism and infarction Other specified acquired hypothyroidism Postsurgical aortocoronary bypass status Pulmonary embolism (HCC) hx in Snoring Symptomatic menopausal or female climacteric states Unspecified cardiovascular disease Urinary incontinence PAST SURGICAL HISTORY Procedure Laterality Date ANESTHESIA LUMBAR REGION NOS disc procedure, 2 levels APPENDECTOMY CABG, ARTERIAL, FOUR+ 02/26/2000 COLONOSCOPY 09/27/2004 COLONOSCOPY FLX DX W/COLLJ SPEC WHEN PFRMD 12/07/2014 Colonoscopy ESOPHAGOGASTRODUODENOSCOPY TRANSORAL DIAGNOSTIC 01/23/2012 EGD HEART SURGERY HX LIG/TRNSXJ FLP TUBE ABDL/VAG APPR UNI/BI NEUROPLASTY &/TRANSPOS MEDIAN NRV CARPAL TUNNE 09/11/2014 Left CTR NEUROPLASTY &/TRANSPOSITION ULNAR NERVE ELBOW 09/11/2014 Ulnar nerve decompression left elbow OOPHORECTOMY PARTIAL/TOTAL UNI/BI 10/19/2007 Ovarian cancer, [facility] PAST SURGICAL HISTORY OF 05/28/1973 first rib on the left side removed. RETRIEV INTRAVASC FOREGN BODY 02/26/2012 IVC REMOVAL S SLING BLADR PELVI TOTL 4821 10/26/2005 Obtyrex midurethral sling STENT PLACEMENT 2004 approx per pt cardiac x 2 THYROIDECTOMY TOTAL/COMPLETE 02/02/2014 TOTAL - percancerous. TONSILLECTOMY PRIMARY/SECONDARY AGE 12/> TOTAL ABDOMINAL HYSTERECT W/WO RMVL TUBE OVARY 10/19/2007 for ovarian cancer URODYNAMICS 09/09/[address] Shea ALLERGIES Streptokinase, Poison Araceli, and Streptokinesis [Other] MEDICATIONS furosemide (LASIX) 40 mg tablet Take 40 mg by mouth once daily. potassium chloride 20 mEq TbER Take 1 tablet by mouth once daily. warfarin (COUMADIN) 5 mg tablet 5 mg Mon/Thurs, 2.5 mg all other days or as directed mirabegron (MYRBETRIQ) 50 mg Tb24 Take 1 tablet by mouth once daily. levothyroxine 137 mcg cap Take 1 capsule by mouth daily before breakfast. ramipril (ALTACE) 10 mg capsule Take two (2) by mouth once daily. rosuvastatin (CRESTOR) 40 mg tablet Take 1 tablet by mouth once daily. sucralfate (CARAFATE) 1 gram tablet Take 1 tablet by mouth before meals and at bedtime. hydroCHLOROthiazide (MICROZIDE) 12.5 mg capsule Take 1 capsule by mouth once daily. niacin ER (NIASPAN) 500 mg tablet Take 1 tablet by mouth twice daily. cholecalciferol, Vitamin D3, (VITAMIN D3) 1,250 mcg (50,000 unit) cap capsule Take 1 capsule by mouth one time a week. albuterol HFA (PROAIR HFA) 90 mcg/actuation inhaler Inhale 2 Puffs as instructed every 6 hours as needed. lansoprazole (PREVACID) 30 mg capsule Take 1 capsule by mouth daily before breakfast. 1/2 hr before meal. nitroglycerin(NITROQUICK 0.4 MG SUBLINGUAL TAB) ASPIRIN 81 MG TAB Take one(1) tablet daily. CALCIUM 500 MG TAB Take one(1) tablet two(2) times daily. TYLENOL PM 25 MG-500 MG TAB Take two(2) at bedtime ATENOLOL 50 MG TAB Take one(1) tablet two(2) times daily. cephALEXin (KEFLEX) 500 mg capsule Take 1 capsule by mouth twice daily for 7 days. FAMILY HISTORY Problem Relation Age of Onset Hypertension Mother Stroke Mother other (ceribral hemorige) Maternal Grandfather other (htn) Maternal Grandfather Lipids Sister Lipids Brother Hypertension Sister Hypertension Brother Social History Tobacco Use Smoking status: Former Smoker Packs/day: 0.50 Years: 30.00 Pack years: 15.00 Types: Cigarettes Quit date: 03/14/2000 Years since quittin.7 Smokeless tobacco: Never Used Tobacco comment: Parents smoked in childhood home. Spouse smoked pipe and cigar occasionally in home. Vaping Use Vaping Use: Never used Substance Use Topics Alcohol use: Yes Comment: Rarely. Drug use: No Objective Physical Exam Vitals and nursing note reviewed. Constitutional: Appearance: Normal appearance. Cardiovascular: Rate and Rhythm: Normal rate and regular rhythm. Pulmonary: Effort: Pulmonary effort is normal. Breath sounds: Normal breath sounds. Abdominal: Palpations: Abdomen is soft. Tenderness: There is no abdominal tenderness. There is no right CVA tenderness or left CVA tenderness. Neurological: Mental Status: She is alert and oriented to person, place, and time. ASSESSMENT/PLAN: 1. Painful urination - ICD9: 788.1, ICD10: R30.9 (primary diagnosis) acute - UA positive for jose daniel esterase and hematuria - Send urine for culture - Begin treatment with Keflex for 7 days - Patient education for prevention given - UA DIP, URINE (POC) - URINE CULTURE - CEPHALEXIN 500 MG CAPSULE 2. Acute cystitis with hematuria - ICD9: 595.0, ICD10: N30.01 - CEPHALEXIN 500 MG CAPSULE DENZEL Goldsmith student TEACHING PROVIDER (Physician/PA/DIRECTOR OF QUANTITATIVE RESEARCH) NOTE OF PERSONAL INVOLVEMENT IN CARE: I have personally seen and examined the patient and performed the medical decision-making components. I have reviewed the Advanced Practice Registered Nurse (DIRECTOR OF QUANTITATIVE RESEARCH) Student's documentation and verified the findings in the note as written. Any additions or changes are noted in bold/italics. Signature: Odessa Sanchez Date: 11/21/2021 Time: 11:40 AM documented in this encounter [facility] 11-21-2021 Instructions Marce Palmer - 11/21/2021 11:31 AM EDT ASSESSMENT/PLAN: 1. Painful urination - ICD9: 788.1, ICD10: R30.9 (primary diagnosis) acute - UA positive for jose daniel esterase and hematuria - Send urine for culture - Begin treatment with Keflex for 7 days - Patient education for prevention given - UA DIP, URINE (POC) - URINE CULTURE 2. Acute cystitis with hematuria - ICD9: 595.0, ICD10: N30.01 - CEPHALEXIN 500 MG CAPSULE DENZEL Goldsmith student Patient Education for Female Urinary Tract Infections Possible complications: Pyelonehritis Renal abscess Expected course/prognosis: * symptoms resolve within 2-3 days after starting treatment in almost all patients * one-fourth of women with simple UTI experience a second UTI within 6 months, and half at some time during lifetime. * patients with multiple recurrent UTI and no underlying urinary tract abnormality may receive long-term prophylactic antibioitic treatment. Trimethoprim-sulfamethoxazole and nitrofurantoin common used. * women with frequent or intercourse-related UTI should empty bladder immediately before and following intercourse and consider postcoital antibiotic treament Instructions: * Maintain good hydration * Avoid sexual intercourse when symptoms present *Take antibiotic as directed * Return if symptoms not resolved or markedly improved within 48 hours * Return if fever, chills, or flank pain develop * If taking prophylactic antiobiotics, take at bedtime * Take showers instead of tub baths * Avoid feminine hygiene sprays and scented douches * Wipe urethra from front to back documented in this encounter [facility] 11-14-2021 Miscellaneous Notes TC to patient who verbalizes understanding of providers message below. ADALBERTO Lang I would suggest that she take both the Carafate and the Protonix Samantha Reyes MD Pt called in and reports she was at the hospital over the weekend she was having such chest pain she thought it was her heart. She reports they told her it could be her acid reflux or asthma or COPD, and they added Protonix 40 mg for her but she hasn't had a chance to pick it up yet. Pt wanted to know if she should stop taking the Carafate, take the two together, or take them at different times. Pt was asked if she wanted to make and ER f/u, and she said she has an appointment in December. Please call and advise. documented in this encounter [facility] 11-10-2021 History of Presen t illness Narrative I agree with the advice given; stay same and recheck in 2 weeks Samantha Reyes MD patient had inr completed at [facility] patients inr is 2.6 (patients inr range is 2.0-3.0) patient is currently taking 5mg Mon,Wed,Fri and 2.5mg all other days patients last dose change was on 10/25/21 due to a high level of 3.3 (dose at that time was 5mg Mon,Wed,Fri and 2.5mg all other days) patient has had no changes in medication except for coumadin and no missed doses and no change in diet Advised patient to continue on the same dose(s) and that they would only be contacted regarding dosage and follow up instructions after review with provider, if a change is needed. Written instructions given and patient verbalized understanding. Presently scheduled in 2 weeks (11/24/21) for follow up INR since this is the first normal reading since dose change documented in this encounter [facility] 10-17-2021 History of Presen t illness Narrative Chief Complaint Patient presents with: Shortness of Breath HPI Sandrine Rivers is a 81 year old female who presents here today for SOB. Pt here today for a same day visit with her due to shortness of breath. Pt asking what medications should she not take prior to her Stress Test and Echo that is scheduled for 11/02/21. C/o new onset of SOB with exertion. She had CXR done 10/11/21 at [facility], Dr. Gorman told pt that the xr results showed COPD and advised her to follow up with PCP. Pt has not smoked in 22 years. She is scheduled for an Echo and stress test on 11/02/21 as ordered by Cardiology. Pt has been using Albuterol inhaler prn, but denies this really helping her. Pt today states that this has been ongoing for quite some time but worse over the past couple months constantly. She can experience this with sitting and reading, doing nothing and worse when exerting herself. At times feels like she is going to collapse from standing and cooking supper and makes her need to sit down. At night when she's lying on her back she feels she can't breathe and feels as though someone is sitting on her. Better with rolling over on her side in bed. Notes coughing a lot. Denies any noticeable swelling in extremities. Does have some abdominal pain/soreness when trying to take a deep breath. Denies any wheezing. Cardiology added Lasix 40 mg once daily and Potassium 20 meq once daily. Denies any improvement with breathing in medication changes. Is urinating often. Past medical history, appointments, medications, allergies reviewed. Previous Medical History PAST MEDICAL HISTORY Diagnosis Date Diarrhea Diverticulosis of small intestine (without mention of hemorrhage) DVT of leg (deep venous thrombosis) (HCC) Essential hypertension, benign FH: atrial fibrillation Heart attack (HCC) 1999 Hernia Internal hemorrhoids without mention of complication Malignant neoplasm of ovary (HCC) Other and unspecified hyperlipidemia Other pulmonary embolism and infarction Other specified acquired hypothyroidism Postsurgical aortocoronary bypass status Pulmonary embolism (HCC) hx in Snoring Symptomatic menopausal or female climacteric states Unspecified cardiovascular disease Urinary incontinence Previous Surgical History PAST SURGICAL HISTORY Procedure Laterality Date ANESTHESIA LUMBAR REGION NOS disc procedure, 2 levels APPENDECTOMY CABG, ARTERIAL, FOUR+ 02/26/2000 COLONOSCOPY 09/27/2004 COLONOSCOPY FLX DX W/COLLJ SPEC WHEN PFRMD 12/07/2014 Colonoscopy ESOPHAGOGASTRODUODENOSCOPY TRANSORAL DIAGNOSTIC 01/23/2012 EGD HEART SURGERY HX LIG/TRNSXJ FLP TUBE ABDL/VAG APPR UNI/BI NEUROPLASTY &/TRANSPOS MEDIAN NRV CARPAL TUNNE 09/11/2014 Left CTR NEUROPLASTY &/TRANSPOSITION ULNAR NERVE ELBOW 09/11/2014 Ulnar nerve decompression left elbow OOPHORECTOMY PARTIAL/TOTAL UNI/BI 10/19/2007 Ovarian cancer, [facility] PAST SURGICAL HISTORY OF 05/28/1973 first rib on the left side removed. RETRIEV INTRAVASC FOREGN BODY 02/26/2012 IVC REMOVAL S SLING BLADR PELVI TOTL 4821 10/26/2005 Obtyrex midurethral sling STENT PLACEMENT 2004 approx per pt cardiac x 2 THYROIDECTOMY TOTAL/COMPLETE 02/02/2014 TOTAL - percancerous. TONSILLECTOMY PRIMARY/SECONDARY AGE 12/> TOTAL ABDOMINAL HYSTERECT W/WO RMVL TUBE OVARY 10/19/2007 for ovarian cancer URODYNAMICS 09/09/[address] Shea Family History FAMILY HISTORY Problem Relation Age of Onset Hypertension Mother Stroke Mother other (ceribral hemorige) Maternal Grandfather other (htn) Maternal Grandfather Lipids Sister Lipids Brother Hypertension Sister Hypertension Brother Patient Allergies ALLERGIES Allergen Reactions Streptokinase Hives Poison Araceli Streptokinesis [Oth* hives Current Medications Current Outpatient Medications on File Prior to Visit Medication Sig warfarin (COUMADIN) 5 mg tablet 5 mg Mon/Thurs, 2.5 mg all other days or as directed mirabegron (MYRBETRIQ) 50 mg Tb24 Take 1 tablet by mouth once daily. levothyroxine 137 mcg cap Take 1 capsule by mouth daily before breakfast. ramipril (ALTACE) 10 mg capsule Take two (2) by mouth once daily. rosuvastatin (CRESTOR) 40 mg tablet Take 1 tablet by mouth once daily. sucralfate (CARAFATE) 1 gram tablet Take 1 tablet by mouth before meals and at bedtime. hydroCHLOROthiazide (MICROZIDE) 12.5 mg capsule Take 1 capsule by mouth once daily. niacin ER (NIASPAN) 500 mg tablet Take 1 tablet by mouth twice daily. cholecalciferol, Vitamin D3, (VITAMIN D3) 1,250 mcg (50,000 unit) cap capsule Take 1 capsule by mouth one time a week. albuterol HFA (PROAIR HFA) 90 mcg/actuation inhaler Inhale 2 Puffs as instructed every 6 hours as needed. lansoprazole (PREVACID) 30 mg capsule Take 1 capsule by mouth daily before breakfast. 1/2 hr before meal. nitroglycerin(NITROQUICK 0.4 MG SUBLINGUAL TAB) ASPIRIN 81 MG TAB Take one(1) tablet daily. CALCIUM 500 MG TAB Take one(1) tablet two(2) times daily. TYLENOL PM 25 MG-500 MG TAB Take two(2) at bedtime ATENOLOL 50 MG TAB Take one(1) tablet two(2) times daily. No current facility-administered medications on file prior to visit. Social History Social History Tobacco Use Smoking status: Former Smoker Packs/day: 0.50 Years: 30.00 Pack years: 15.00 Types: Cigarettes Quit date: 03/14/2000 Years since quittin.6 Smokeless tobacco: Never Used Tobacco comment: Parents smoked in childhood home. Spouse smoked pipe and cigar occasionally in home. Vaping Use Vaping Use: Never used Substance Use Topics Alcohol use: Yes Comment: Rarely. Drug use: No EXAM: BP 118/78 (BP Site: Left Arm, BP Position: Sitting, BP Cuff Size: Regular Adult) Pulse 88 Resp 20 Wt 98.1 kg (216 lb 3.2 oz) LMP 05/28/1990 SpO2 95% BMI 37.11 kg/m General Appearance: Well appearing, alert, in no acute distress, well-hydrated, well nourished. and Obese. Lungs: Lungs clear to auscultation. No wheezing, rhonchi, rales.. Heart: irregular Extremities: Edema: Minimal on exam today. Health Maintenance List SHINGRIX VACCINE(2 of 3) due on 02/09/2012 ADVANCE DIRECTIVE DISCUSSION Never done COVID-19 VACCINE(4 - Booster) due on 08/10/2021 LDL CHOLESTEROL due on 09/09/2022 DIABETES SCREEN due on 09/09/2024 DTAP,TDAP,TD(3 - Td or Tdap) due on 07/13/2026 BONE DENSITY Completed INFLUENZA Completed PNEUMOVAX AGE 65 AND OVER WITH 5YR LOOKBACK Completed MENINGOCOCCAL CONJUGATE Aged Out Data reviewed Outside labs from [facility] - Cardio ASSESSMENT/PLAN: 1. SOB (shortness of breath) - ICD9: 786.05, ICD10: R06.02 (primary diagnosis) - Advised pt that she should continue with appt for additional cardiac testing - If these are normal would consider pulm function testing 2. Atrial fibrillation, unspecified type (HCC) - ICD9: 427.31, ICD10: I48.91 - Continue current medication regimen. Follow up as scheduled. Keep appt for 11/02/21. I agree with the Chief Complaint, ROS, and Past Histories independently gathered by the clinical pharmacy retail support specialist and the remaining scribed note accurately describes my personal service to the patient. Medical Decision Making: Problems: Moderate: New problem with uncertain prognosis and 2+ stable chronic illnesses Data: Unique test result(s) reviewed: 2 Risk: Moderate: Drug management Medical Decision Making Level: 4 - Moderate Samantha Reyes MD The documentation for this note was completed by Deborah Carlisle Ma acting as scribe for Samantha Reyes MD. October 17, 2021 4:50 PM. 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 Gaurang Gorman for new onset shortness of breath with exertion. She had a CXR done on 10/11 @ [facility]. She states Dr. Gorman notified her of result showing COPD and instructed her to follow up with PCP. She says she is also scheduled for ECHO and stress test in October. Appointment scheduled with PCP on Sunday, 10/17 for follow up. Sandrine Vincent RN documented in this encounter [facility] 10-10-2021 History of Presen t illness Narrative I agree with the advice given; stay same and recheck in 2 weeks Samantha Reyes MD patient had inr completed at [facility] patients inr is 2.9 (patients inr range is 2.0-3.0) patient is currently taking 5mg Mon,Wed,Fri and 2.5mg all other days patients last dose change was on 09/26/21 due to a low level of 1.8 (dose at that time was 5mg Mon,Thurs and 2.5mg all other days) patient has had no changes in medication except for coumadin and no missed doses and no change in diet Advised patient to continue on the same dose(s) and that they would only be contacted regarding dosage and follow up instructions after review with provider, if a change is needed. Written instructions given and patient verbalized understanding. Presently scheduled in 2 weeks (10/25/21) for follow up INR since this is the first normal reading since dose change documented in this encounter [facility] 10-06-2021 Miscellaneous Notes Patient notified of results, verbalizes understanding of instructions. Jaylin Berkowitz LPN Please notify patient that her lab work from last month looks OK; follow up in Dec as scheduled Samantha Reyes MD documented in this encounter [facility] 09-26-2021 History of Presen t illness Narrative Pt called and notified of PCP's recommendation below and verbalized understanding. Tracker updated. Deborah Carlisle Ma Go to 5mg Mon,Weds, Fri; 2.5mg all other days Recheck in 2 weeks as planned Samantha Reyes MD patient had inr completed at [facility] patients inr is 1.8 (patients inr range is 2.0-3.0) patient is currently taking 5mg Mon,Thurs and 2.5mg all other days patients last dose change was on 09/19/21 due to a low level of 1.7 (dose at that time was 5mg Mon and 2.5mg all other days) patient has had no changes in medication except for coumadin and no missed doses and no change in diet Advised patient that they would be contacted regarding medication dose and when to follow up after information is reviewed by provider. After provider review please contact the patient with information and schedule follow up appointment with coumadin clinic. ok to leave a detailed message if no answer FYI- patient has been scheduled for a 2 week follow up inr on 10/10/21 documented in this encounter [facility] 09-19-2021 History of Presen t illness Narrative Pt notified and voiced understanding, repeated instructions back. Tracker and med list updated. Julia Patel Ma Go to 5 mg on Mon and Thurs; 2.5 mg all other days Recheck in 1 week as planned Samantha Reyes MD patient had inr completed at [facility] patients inr is 1.7 (patients inr range is 2.0-3.0) patient is currently taking 5mg Mon and 2.5mg all other days patients last dose change was on 09/12/21 due to a low level of 1.8 (dose at that time was 5mg Fri and 2.5mg Sat Sun only due high level on 09/02/21 for 5.3 and dose was 5mg Mon,Wed,Sun and 2.5mg all other days) patient has had no changes in medication except for coumadin and no missed doses and no change in diet Advised patient that they would be contacted regarding medication dose and when to follow up after information is reviewed by provider. After provider review please contact the patient with information and schedule follow up appointment with coumadin clinic. ok to leave a detailed message if no answer FYI- patient has been scheduled for a 1 week follow up inr on 09/26/21 documented in this encounter [facility] 09-14-2021 History of Presen t illness Narrative UROGYN TELEPHONE VISIT PROGRESS NOTE This is a telephone encounter initiated for an established patient, parent or guardian not originating from a related Evaluation & Management service provided within the previous 7 days nor leading to an Evaluation & Management service or procedure within the next 24 hours or soonest available appointment. Patient identified by and name. Sandrine Rivers has consented to this telephone encounter. Persons Present: patient Chief Complaint/Reason: OAB medication follow up HPI: She is currently taking Myrbetriq 50 mg PO daily and is doing great on this medication. It has resolved her incontinence. Denies UI, urgency or frequency at the current time. Denies side effects from medication. Denies voiding dysfunction (She did have recent UTI which caused some emptying issues, but flow has returned to normal after taking antibiotics). When pt requested Myrbetriq refill, I declined to refill it because last BP on file in epic from 09/09/21 was 156/102. Pt had UTI at that time and states she was in pain. She has HTN typically well controlled on Meds. She has been checking her BP at home, this week's readings are as follows: 144/70 135/87 144/84 Pt denies headache or visual disturbance. Data Reviewed: vital signs, progress notes Assessment: (N39.41) Urge incontinence (primary encounter diagnosis) resolved on myrbetriq Plan: Continue Myrbetriq, check BP twice/week and notify office if elevated. Warning signs warranting eval reviewed. F/U 6 months or sooner PRN The following approved medication requests have been transmitted electronically. Signed Prescriptions Disp Refills mirabegron (MYRBETRIQ) 50 mg Tb24 30 tablet 5 Sig: Take 1 tablet by mouth once daily. KATELYN: No Total Time Spent: 5-10 minutes Rachel Busch APRN.MIKA documented in this encounter [facility] 09-12-2021 History of Presen t illness Narrative Pt notified of results, new coumadin dose, and recheck date. Appt scheduled. Anticoag tracker updated. Zunilda Baker LPN Go to 5 mg on Sunday; 2.5 mg all other days Recheck in 1 week rather than 2 weeks Samantha Reyes MD patient had inr completed at [facility] patients inr is 1.8 (patients inr range is 2.0-3.0) patient is currently taking 5mg Fri and 2.5mg Sat,Sun only at this time patients last dose change was on 09/02/21 due to a high level of 5.3 (dose at that time was 5mg Mon,Wed,Sun and 2.5mg all other days) patient has had no changes in medication except for coumadin and no uninstructed missed doses and no change in diet FYI- patient had blood draw completed on 09/09/21 and level was 1.4 on provider instructed patient to take 5mg Sunday and 2.5mg SatSun and recheck today for further dosing information Advised patient that they would be contacted regarding medication dose and when to follow up after information is reviewed by provider. After provider review please contact the patient with information and schedule follow up appointment with coumadin clinic. FYI- patient has been scheduled for a 2 week follow up inr on 09/26/21 documented in this encounter [facility] 09-12-2021 Nurse Note Pt notified of new dose and recheck date. Appt scheduled for same. Zunilda Baker LPN documented in this encounter [facility] 09-09-2021 Miscellaneous Notes Patient notified and voiced her understanding. Left vm for patient to call office back Ana Rosa Barnhart Ma Advise patient to take 5 mg of coumadin today and 2.5 mg Sun and Sunday. Needs INR on Sunday09/12/2021 Last INR: INR (POCT) 1.4 09/09/2021 Current dose of coumadin is: pt was holding coumadin for 3 days (09/02-09/04) and then 2.5 mg daily. Last date of dose change: 09/02/21. Previous INR (date and result): 5.3 on 09/02/21 Additional Clinical Information or narrative: no Pt's pcp out this afternoon, will send to DOC. documented in this encounter [facility] 09-09-2021 Miscellaneous Notes Attempted to reach patient x 2. Phone hangs up. Laurie Moody RN Nurse triage VM - Patient of [place] needs refill, did not mention what one. documented in this encounter [facility] 09-09-2021 History of Presen t illness Narrative This note was created using [employer]osk[employer]. Subjective Sandrine Rivers is a 81 year old female. HPI Patient presents with a chief complaint of urinary frequency and pain. She has had some suprapubic discomfort as well. This had started 3 or 4 days ago. She denies vomiting or fever. She has had UTIs previously and this feels similar. She has some lower back pain but thinks maybe it is from arthritis. Review of Systems Genitourinary: Positive for dysuria, frequency and urgency. Negative for hematuria. All other systems reviewed and are negative. PAST MEDICAL HISTORY Diagnosis Date Diarrhea Diverticulosis of small intestine (without mention of hemorrhage) DVT of leg (deep venous thrombosis) (HCC) Essential hypertension, benign FH: atrial fibrillation Heart attack (HCC) 1999 Hernia Internal hemorrhoids without mention of complication Malignant neoplasm of ovary (HCC) Other and unspecified hyperlipidemia Other pulmonary embolism and infarction Other specified acquired hypothyroidism Postsurgical aortocoronary bypass status Pulmonary embolism (HCC) hx in [place] Symptomatic menopausal or female climacteric states Unspecified cardiovascular disease Urinary incontinence Current Outpatient Medications Medication Sig Dispense Refill warfarin (COUMADIN) 5 mg tablet 2.5 mg daily or as directed 30 tablet 11 levothyroxine 137 mcg cap Take 1 capsule by mouth daily before breakfast. 30 capsule 11 ramipril (ALTACE) 10 mg capsule Take two (2) by mouth once daily. 60 capsule 11 rosuvastatin (CRESTOR) 40 mg tablet Take 1 tablet by mouth once daily. 30 tablet 11 sucralfate (CARAFATE) 1 gram tablet Take 1 tablet by mouth before meals and at bedtime. 120 tablet 5 hydroCHLOROthiazide (MICROZIDE) 12.5 mg capsule Take 1 capsule by mouth once daily. 90 capsule 3 mirabegron (MYRBETRIQ) 50 mg Tb24 Take 1 tablet by mouth once daily. 30 tablet 5 niacin ER (NIASPAN) 500 mg tablet Take 1 tablet by mouth twice daily. 60 tablet 11 cholecalciferol, Vitamin D3, (VITAMIN D3) 1,250 mcg (50,000 unit) cap capsule Take 1 capsule by mouth one time a week. 12 capsule 3 albuterol HFA (PROAIR HFA) 90 mcg/actuation inhaler Inhale 2 Puffs as instructed every 6 hours as needed. 6.7 g 5 lansoprazole (PREVACID) 30 mg capsule Take 1 capsule by mouth daily before breakfast. 1/2 hr before meal. 30 capsule 5 nitroglycerin(NITROQUICK 0.4 MG SUBLINGUAL TAB) 0 ASPIRIN 81 MG TAB Take one(1) tablet daily. 0 0 CALCIUM 500 MG TAB Take one(1) tablet two(2) times daily. 0 0 TYLENOL PM 25 MG-500 MG TAB Take two(2) at bedtime 0 0 ATENOLOL 50 MG TAB Take one(1) tablet two(2) times daily. 0 0 cephALEXin (KEFLEX) 500 mg capsule Take 1 capsule by mouth twice daily for 7 days. 14 capsule 0 No current facility-administered medications for this visit. PAST SURGICAL HISTORY Procedure Laterality Date ANESTHESIA LUMBAR REGION NOS disc procedure, 2 levels APPENDECTOMY CABG, ARTERIAL, FOUR+ 02/26/2000 COLONOSCOPY 09/27/2004 COLONOSCOPY FLX DX W/COLLJ SPEC WHEN PFRMD 12/07/2014 Colonoscopy ESOPHAGOGASTRODUODENOSCOPY TRANSORAL DIAGNOSTIC 01/23/2012 EGD HEART SURGERY HX LIG/TRNSXJ FLP TUBE ABDL/VAG APPR UNI/BI NEUROPLASTY &/TRANSPOS MEDIAN NRV CARPAL TUNNE 09/11/2014 Left CTR NEUROPLASTY &/TRANSPOSITION ULNAR NERVE ELBOW 09/11/2014 Ulnar nerve decompression left elbow OOPHORECTOMY PARTIAL/TOTAL UNI/BI 10/19/2007 Ovarian cancer, [facility] PAST SURGICAL HISTORY OF 05/28/1973 first rib on the left side removed. RETRIEV INTRAVASC FOREGN BODY 02/26/2012 IVC REMOVAL S SLING RUSSELL MCNEIL TOTL 4821 10/26/2005 Obtyrex midurethral sling STENT PLACEMENT 2004 approx per pt cardiac x 2 THYROIDECTOMY TOTAL/COMPLETE 02/02/2014 TOTAL - percancerous. TONSILLECTOMY PRIMARY/SECONDARY AGE 12/> TOTAL ABDOMINAL HYSTERECT W/WO RMVL TUBE OVARY 10/19/2007 for ovarian cancer URODYNAMICS 09/09/[address] Shea FAMILY HISTORY Problem Relation Age of Onset Hypertension Mother Stroke Mother other (ceribral hemorige) Maternal Grandfather other (htn) Maternal Grandfather Lipids Sister Lipids Brother Hypertension Sister Hypertension Brother Social History Tobacco Use Smoking status: Former Smoker Packs/day: 0.50 Years: 30.00 Pack years: 15.00 Types: Cigarettes Quit date: 03/14/2000 Years since quittin.5 Smokeless tobacco: Never Used Tobacco comment: Parents smoked in childhood home. Spouse smoked pipe and cigar occasionally in home. Vaping Use Vaping Use: Never used Substance Use Topics Alcohol use: Yes Comment: Rarely. Drug use: No Objective BP 156/102 Pulse 89 Temp 36.1 C (97 F) Resp 26 Wt 98.7 kg (217 lb 9.6 oz) LMP 05/28/1990 SpO2 94% BMI 37.35 kg/m Physical Exam Vitals reviewed. Constitutional: Appearance: Normal appearance. HENT: Head: Normocephalic and atraumatic. Cardiovascular: Rate and Rhythm: Normal rate and regular rhythm. Heart sounds: Normal heart sounds. Pulmonary: Effort: Pulmonary effort is normal. Breath sounds: Normal breath sounds. Abdominal: General: Abdomen is flat. Palpations: Abdomen is soft. Tenderness: There is no abdominal tenderness. There is no right CVA tenderness, left CVA tenderness or guarding. Musculoskeletal: Cervical back: Neck supple. Skin: General: Skin is warm and dry. Neurological: Mental Status: She is alert. Assessment and Plan ASSESSMENT/PLAN: 1. Dysuria - ICD9: 788.1, ICD10: R30.0 acute - UA positive for jose daniel esterase, hematuria and proteinuria - Send urine for culture - Begin treatment with keflex for 7 days - UA DIP, URINE (POC) - URINE CULTURE Davina Quarles PA-C documented in this encounter [facility] 09-02-2021 History of Presen t illness Narrative Pt notified and voiced understanding. Tracker and med list updated. Julia Patel Ma Hold coumadin for 3 days, then go to 2.5 mg daily Recheck in 1 week as planned Samantha Reyes MD patient had inr completed at [facility] patients inr is 5.3 (patients inr range is 2.0-3.0) patient is currently taking 5mg Mon,Wed,Fri and 2.5mg all other days patients last dose change was on 08/08/21 due to a low level of 1.7 (dose at that time was 5mg Mon,Fri and 2.5mg all other days) patient has had no changes in medication except for coumadin and no missed doses and no change in diet FYI- patient has been instructed to hold coumadin until contacted Advised patient that they would be contacted regarding medication dose and when to follow up after information is reviewed by provider. After provider review please contact the patient with information and schedule follow up appointment with coumadin clinic. ok to leave a detailed message if no answer FYI - patient has been scheduled for a 1 week follow up inr via blood drawl on 09/09/21 due to the cc is closed next week documented in this encounter [facility] 09-02-2021 Miscellaneous Notes Order filed Samantha Reyes MD patients orders for coumadin clinic inr's has at this time. new order has been pended for approval if possible so that patient can continue to get inr's completed thru the coumadin clinic. coumadin clinic nurse only needs called if order can not be approved. documented in this encounter [facility] Personal history of venous thrombosis and embolism Atrial fibrillation, unspecified type (HCC) [facility] Diagnosis Dysuria- Primary [facility] Diagnosis Personal history of venous thrombosis and embolism [facility] Diagnosis Personal history of venous thrombosis and embolism [facility] Diagnosis Urge incontinence- Primary [facility] Diagnosis Personal history of venous thrombosis and embolism [facility] Diagnosis Personal history of venous thrombosis and embolism [facility] Diagnosis SOB (shortness of breath)- Primary Shortness of breath Atrial fibrillation, unspecified type (HCC) Atherosclerosis of [place] coronary artery of [place] heart without angina pectoris Essential hypertension, benign Hypothyroidism, unspecified type [facility] Diagnosis Painful urination- Primary Dysuria Acute cystitis with hematuria Acute cystitis [facility] Diagnosis Personal history of venous thrombosis and embolism Atrial fibrillation, unspecified type (HCC) [facility] Diagnosis Essential hypertension, benign- Primary Atherosclerosis of [place] coronary artery of [place] heart without angina pectoris Atrial fibrillation, unspecified type (HCC) Gastroesophageal reflux disease, unspecified whether esophagitis present Hypothyroidism, unspecified type Obesity, Class II, BMI 35-39.9 Obesity, unspecified [facility] Diagnosis Fall, initial encounter- Primary [facility] Diagnosis Urinary frequency- Primary Burning with urination Dysuria [facility] Diagnosis Hypothyroidism, unspecified type [facility] Diagnosis Personal history of venous thrombosis and embolism [facility] Diagnosis Urinary frequency- Primary documented in this encounter [facility] note* Diagnosis Personal history of venous thrombosis and embolism documented in this encounter [facility] note* Diagnosis Personal history of venous thrombosis and embolism Atrial fibrillation, unspecified type (HCC) documented in this encounter [facility] note* Diagnosis Encounter for long-term (current) use of medications- Primary Encounter for long-term (current) use of other medications documented in this encounter [facility] note* Diagnosis 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 Mixed incontinence urge and stress (male)(female) documented in this encounter [facility] note* Diagnosis Viral URI with cough- Primary Acute upper respiratory infections of unspecified site documented in this encounter [facility] note* Diagnosis COVID-19- Primary documented in this encounter [facility] note* Diagnosis Urinary incontinence, unspecified type- Primary documented in this encounter [facility] note* Diagnosis Urinary frequency- Primary documented in this encounter [facility] note* Diagnosis Atherosclerosis of [place] coronary artery of [place] heart without angina pectoris Hyperlipidemia, unspecified hyperlipidemia type Essential hypertension, benign documented in this encounter [facility] note* Diagnosis Essential hypertension, benign- Primary Hyperlipidemia, unspecified hyperlipidemia type Chronic kidney disease, stage 3a (HCC) Hypothyroidism, unspecified type Gastroesophageal reflux disease, unspecified whether esophagitis present Vitamin D deficiency Unspecified vitamin D deficiency Urinary incontinence, unspecified type Atherosclerosis of [place] coronary artery of [place] heart without angina pectoris Atrial fibrillation, unspecified type (HCC) Deep vein thrombosis (DVT) of lower extremity, unspecified chronicity, unspecified laterality, unspecified vein (HCC) Malignant neoplasm of ovary, unspecified laterality (HCC) documented in this encounter [facility] for referral (narrative)* Diagnostic Procedure Only (Urgent) - Closed Specialty Diagnoses / Procedures Referred By Contac t Referred To Contact XR IMAGING Diagnoses Fall, initial encounter Procedures XR KNEE GENERAL 4V AP BOTH/PA BOTH/LAT/MERC LEFT RADIOLOGIC EXAM KNEE COMPLETE 4/MORE VIEWS Sylwia Mcleod APRN.INSTRUMENT INSTALLER [address] [place] [address] Xr Imaging Referral ID Status Reason Start Date Expiration Date V isits Requested Visits Authorized [id number] Closed Auto-Generate d Referral 01/19/2022 02/18/2023 1 1 [facility] Summary Purpose Family History No Family History Records FoundNo Family History Records FoundNo Family History Records FoundNo Family History Records Found Advance Directives No Advanced Directives Records FoundNo Advanced Directives Records FoundNo Advanced Directives Records FoundNo Advanced Directives Records Found Health Concerns Infection Onset Date Last Indicated Resolved Time COVID-19 Rule-Out 08/25/2022 08/25/2022 Infection Onset Date Last Indicated Resolved Time COVID-19 Confirmed 08/25/2022 08/25/2022 Infection Onset Date Last Indicated Resolved Time COVID-19 Rule-Out 08/25/2022 08/25/2022 08/25/2022 7:29 PM EDT COVID-19 Confirmed 08/25/2022 08/25/2022 8:52 PM EDT Reason for Referral Specialty Diagnoses / Procedures Referred By Serene vidales Referred To Contact Urology Diagnoses Urinary incontinence, unspecified type Procedures CONSULT TO UROLOGY Charles Chavez APRN.INSTRUMENT INSTALLER [address] [place] [address] Referral ID Status Reason Start Date Expiration Date Visits Requested Visits Authorized [id number] Ref Not Required PCP Requested Referral 12/04/2022 12/04/2023 1 1 Additional Source Comments INFORMATION SOURCE (unrecogn ized section and content) DATE CREATED AUTHOR AUTHOR'S ORGANIZ ATION 08/21/2019 [facility] DATE CREATED AUTHOR AUTHOR'S ORGANIZ ATION 04/08/2020 [facility] DATE CREATED AUTHOR AUTHOR'S ORGANIZ ATION 04/29/[address] [facility] Source Comments (unrecognize d section and content) In the event this informatio n is protected by the Federal Confidentiality of Alcohol and Drug Abuse Patient Records regulations: The Federal rules restrict any use of the information to criminally investigate or prosecute any alcohol or drug abuse patient.[facility] the event this information is protected by the Federal Confidentiality of Alcohol and Drug Abuse Patient Records regulations: The Federal rules restrict any use of the information to criminally investigate or prosecute any alcohol or drug abuse patient.[facility] CenterIn the event this information is protected by the Federal Confidentiality of Alcohol and Drug Abuse Patient Records regulations: The Federal rules restrict any use of the information to criminally investigate or prosecute any alcohol or drug abuse patient.[facility] CenterIn the event this information is protected by the Federal Confidentiality of Alcohol and Drug Abuse Patient Records regulations: The Federal rules restrict any use of the information to criminally investigate or prosecute any alcohol or drug abuse patient.[facility] CenterIn the event this information is protected by the Federal Confidentiality of Alcohol and Drug Abuse Patient Records regulations: The Federal rules restrict any use of the information to criminally investigate or prosecute any alcohol or drug abuse patient.[facility] CenterIn the event this information is protected by the Federal Confidentiality of Alcohol and Drug Abuse Patient Records regulations: The Federal rules restrict any use of the information to criminally investigate or prosecute any alcohol or drug abuse patient.[facility] CenterIn the event this information is protected by the Federal Confidentiality of Alcohol and Drug Abuse Patient Records regulations: The Federal rules restrict any use of the information to criminally investigate or prosecute any alcohol or drug abuse patient.[facility] CenterIn the event this information is protected by the Federal Confidentiality of Alcohol and Drug Abuse Patient Records regulations: The Federal rules restrict any use of the information to criminally investigate or prosecute any alcohol or drug abuse patient.[facility] CenterIn the event this information is protected by the Federal Confidentiality of Alcohol and Drug Abuse Patient Records regulations: The Federal rules restrict any use of the information to criminally investigate or prosecute any alcohol or drug abuse patient.[facility] CenterIn the event this information is protected by the Federal Confidentiality of Alcohol and Drug Abuse Patient Records regulations: The Federal rules restrict any use of the information to criminally investigate or prosecute any alcohol or drug abuse patient.[facility] CenterIn the event this information is protected by the Federal Confidentiality of Alcohol and Drug Abuse Patient Records regulations: The Federal rules restrict any use of the information to criminally investigate or prosecute any alcohol or drug abuse patient.[facility] CenterIn the event this information is protected by the Federal Confidentiality of Alcohol and Drug Abuse Patient Records regulations: The Federal rules restrict any use of the information to criminally investigate or prosecute any alcohol or drug abuse patient.[facility] CenterIn the event this information is protected by the Federal Confidentiality of Alcohol and Drug Abuse Patient Records regulations: The Federal rules restrict any use of the information to criminally investigate or prosecute any alcohol or drug abuse patient.[facility] CenterIn the event this information is protected by the Federal Confidentiality of Alcohol and Drug Abuse Patient Records regulations: The Federal rules restrict any use of the information to criminally investigate or prosecute any alcohol or drug abuse patient.[facility] CenterIn the event this information is protected by the Federal Confidentiality of Alcohol and Drug Abuse Patient Records regulations: The Federal rules restrict any use of the information to criminally investigate or prosecute any alcohol or drug abuse patient.[facility] CenterIn the event this information is protected by the Federal Confidentiality of Alcohol and Drug Abuse Patient Records regulations: The Federal rules restrict any use of the information to criminally investigate or prosecute any alcohol or drug abuse patient.[facility] CenterIn the event this information is protected by the Federal Confidentiality of Alcohol and Drug Abuse Patient Records regulations: The Federal rules restrict any use of the information to criminally investigate or prosecute any alcohol or drug abuse patient.[facility] CenterIn the event this information is protected by the Federal Confidentiality of Alcohol and Drug Abuse Patient Records regulations: The Federal rules restrict any use of the information to criminally investigate or prosecute any alcohol or drug abuse patient.[facility] CenterIn the event this information is protected by the Federal Confidentiality of Alcohol and Drug Abuse Patient Records regulations: The Federal rules restrict any use of the information to criminally investigate or prosecute any alcohol or drug abuse patient.[facility] CenterIn the event this information is protected by the Federal Confidentiality of Alcohol and Drug Abuse Patient Records regulations: The Federal rules restrict any use of the information to criminally investigate or prosecute any alcohol or drug abuse patient.[facility] CenterIn the event this information is protected by the Federal Confidentiality of Alcohol and Drug Abuse Patient Records regulations: The Federal rules restrict any use of the information to criminally investigate or prosecute any alcohol or drug abuse patient.[facility] CenterIn the event this information is protected by the Federal Confidentiality of Alcohol and Drug Abuse Patient Records regulations: The Federal rules restrict any use of the information to criminally investigate or prosecute any alcohol or drug abuse patient.[facility] CenterIn the event this information is protected by the Federal Confidentiality of Alcohol and Drug Abuse Patient Records regulations: The Federal rules restrict any use of the information to criminally investigate or prosecute any alcohol or drug abuse patient.[facility] CenterIn the event this information is protected by the Federal Confidentiality of Alcohol and Drug Abuse Patient Records regulations: The Federal rules restrict any use of the information to criminally investigate or prosecute any alcohol or drug abuse patient.[facility] CenterIn the event this information is protected by the Federal Confidentiality of Alcohol and Drug Abuse Patient Records regulations: The Federal rules restrict any use of the information to criminally investigate or prosecute any alcohol or drug abuse patient.[facility] CenterIn the event this information is protected by the Federal Confidentiality of Alcohol and Drug Abuse Patient Records regulations: The Federal rules restrict any use of the information to criminally investigate or prosecute any alcohol or drug abuse patient.[facility] CenterIn the event this information is protected by the Federal Confidentiality of Alcohol and Drug Abuse Patient Records regulations: The Federal rules restrict any use of the information to criminally investigate or prosecute any alcohol or drug abuse patient.[facility] CenterIn the event this information is protected by the Federal Confidentiality of Alcohol and Drug Abuse Patient Records regulations: The Federal rules restrict any use of the information to criminally investigate or prosecute any alcohol or drug abuse patient.[facility] CenterIn the event this information is protected by the Federal Confidentiality of Alcohol and Drug Abuse Patient Records regulations: The Federal rules restrict any use of the information to criminally investigate or prosecute any alcohol or drug abuse patient.[facility] CenterIn the event this information is protected by the Federal Confidentiality of Alcohol and Drug Abuse Patient Records regulations: The Federal rules restrict any use of the information to criminally investigate or prosecute any alcohol or drug abuse patient.[facility] CenterIn the event this information is protected by the Federal Confidentiality of Alcohol and Drug Abuse Patient Records regulations: The Federal rules restrict any use of the information to criminally investigate or prosecute any alcohol or drug abuse patient.[facility] CenterIn the event this information is protected by the Federal Confidentiality of Alcohol and Drug Abuse Patient Records regulations: The Federal rules restrict any use of the information to criminally investigate or prosecute any alcohol or drug abuse patient.[facility] CenterIn the event this information is protected by the Federal Confidentiality of Alcohol and Drug Abuse Patient Records regulations: The Federal rules restrict any use of the information to criminally investigate or prosecute any alcohol or drug abuse patient.[facility] CenterIn the event this information is protected by the Federal Confidentiality of Alcohol and Drug Abuse Patient Records regulations: The Federal rules restrict any use of the information to criminally investigate or prosecute any alcohol or drug abuse patient.[facility] CenterIn the event this information is protected by the Federal Confidentiality of Alcohol and Drug Abuse Patient Records regulations: The Federal rules restrict any use of the information to criminally investigate or prosecute any alcohol or drug abuse patient.[facility] CenterIn the event this information is protected by the Federal Confidentiality of Alcohol and Drug Abuse Patient Records regulations: The Federal rules restrict any use of the information to criminally investigate or prosecute any alcohol or drug abuse patient.[facility] CenterIn the event this information is protected by the Federal Confidentiality of Alcohol and Drug Abuse Patient Records regulations: The Federal rules restrict any use of the information to criminally investigate or prosecute any alcohol or drug abuse patient.[facility] CenterIn the event this information is protected by the Federal Confidentiality of Alcohol and Drug Abuse Patient Records regulations: The Federal rules restrict any use of the information to criminally investigate or prosecute any alcohol or drug abuse patient.[facility] CenterIn the event this information is protected by the Federal Confidentiality of Alcohol and Drug Abuse Patient Records regulations: The Federal rules restrict any use of the information to criminally investigate or prosecute any alcohol or drug abuse patient.[facility] CenterIn the event this information is protected by the Federal Confidentiality of Alcohol and Drug Abuse Patient Records regulations: The Federal rules restrict any use of the information to criminally investigate or prosecute any alcohol or drug abuse patient.[facility] CenterIn the event this information is protected by the Federal Confidentiality of Alcohol and Drug Abuse Patient Records regulations: The Federal rules restrict any use of the information to criminally investigate or prosecute any alcohol or drug abuse patient.[facility] CenterIn the event this information is protected by the Federal Confidentiality of Alcohol and Drug Abuse Patient Records regulations: The Federal rules restrict any use of the information to criminally investigate or prosecute any alcohol or drug abuse patient.[facility] CenterIn the event this information is protected by the Federal Confidentiality of Alcohol and Drug Abuse Patient Records regulations: The Federal rules restrict any use of the information to criminally investigate or prosecute any alcohol or drug abuse patient.[facility] CenterIn the event this information is protected by the Federal Confidentiality of Alcohol and Drug Abuse Patient Records regulations: The Federal rules restrict any use of the information to criminally investigate or prosecute any alcohol or drug abuse patient.[facility] CenterIn the event this information is protected by the Federal Confidentiality of Alcohol and Drug Abuse Patient Records regulations: The Federal rules restrict any use of the information to criminally investigate or prosecute any alcohol or drug abuse patient.[facility] CenterIn the event this information is protected by the Federal Confidentiality of Alcohol and Drug Abuse Patient Records regulations: The Federal rules restrict any use of the information to criminally investigate or prosecute any alcohol or drug abuse patient.[facility] CenterIn the event this information is protected by the Federal Confidentiality of Alcohol and Drug Abuse Patient Records regulations: The Federal rules restrict any use of the information to criminally investigate or prosecute any alcohol or drug abuse patient.[facility] CenterIn the event this information is protected by the Federal Confidentiality of Alcohol and Drug Abuse Patient Records regulations: The Federal rules restrict any use of the information to criminally investigate or prosecute any alcohol or drug abuse patient.[facility] CenterIn the event this information is protected by the Federal Confidentiality of Alcohol and Drug Abuse Patient Records regulations: The Federal rules restrict any use of the information to criminally investigate or prosecute any alcohol or drug abuse patient.[facility] CenterIn the event this information is protected by the Federal Confidentiality of Alcohol and Drug Abuse Patient Records regulations: The Federal rules restrict any use of the information to criminally investigate or prosecute any alcohol or drug abuse patient.[facility] CenterIn the event this information is protected by the Federal Confidentiality of Alcohol and Drug Abuse Patient Records regulations: The Federal rules restrict any use of the information to criminally investigate or prosecute any alcohol or drug abuse patient.[facility] CenterIn the event this information is protected by the Federal Confidentiality of Alcohol and Drug Abuse Patient Records regulations: The Federal rules restrict any use of the information to criminally investigate or prosecute any alcohol or drug abuse patient.[facility] CenterIn the event this information is protected by the Federal Confidentiality of Alcohol and Drug Abuse Patient Records regulations: The Federal rules restrict any use of the information to criminally investigate or prosecute any alcohol or drug abuse patient.[facility] CenterIn the event this information is protected by the Federal Confidentiality of Alcohol and Drug Abuse Patient Records regulations: The Federal rules restrict any use of the information to criminally investigate or prosecute any alcohol or drug abuse patient.[facility] CenterIn the event this information is protected by the Federal Confidentiality of Alcohol and Drug Abuse Patient Records regulations: The Federal rules restrict any use of the information to criminally investigate or prosecute any alcohol or drug abuse patient.[facility] Reason for Visit (unrecogniz ed section and content) Reason Comments Anticoagulation Reason Comments Refill Request Reason Comments UTI pain with urination, dysuria x2 days Reason Onset Date Comments Anticoagulation 09/09/2021 Reason Comments Patient Question Reason Comments Follow Up Reason Comments Patient Update Reason Comments Shortness of Breath Reason Comments Patient Update Medication Question Reason Comments UTI painful, frequent ur ination x 3 days Reason Comments Results Reason Comments FYI-No Action Needed disc with med recor ds Reason Onset Date Comments Refill Request 12/09/2021 Reason Comments Opened In Error Reason Comments Prescription Refills Reason Comments 6 Month Exam Reason Comments Fall Pt reported fall at home x1 day prior, denied pain. Reason Comments Urinary Frequency burning with urinati on x 1 day Reason Comments Urinary Problem Frequency, burning x 1 day. Reason Comments Coumadin Rx Reason Onset Date Comments Refill Request 03/10/2022 Refill Request 04/05/2022 Reason Onset Date Comments Refill Request 05/11/2022 Reason Onset Date Comments Refill Request 08/11/2022 Reason Comments Follow Up Established Patient Reason Comments Cough Pt reported throat p ain, chills, x4 days. Reason Comments Covid Positive Reason Onset Date Comments Refill Request Refill Request 09/22/2022 Reason Comments Referral Request Reason Onset Date Comments Refill Request 01/26/2023 Reason Comments Urinary Frequency burning with urinati on x 2 days Reason Onset Date Comments Refill Request 03/14/2023 Reason Comments F/U 6 Month Care Teams (unrecognized sec tion and content) Manager Services Relationship Specialty Start Date End Date Samantha Reyes MD [address] [place], [place] [id number] PCP - General 12/04/07 Manager Services Relationship Specialty Start Date End Date Samantha Reyes MD [address] [place], [place] [id number] PCP - General 12/04/07 Manager Services Relationship Specialty Start Date End Date Samantha Reyes MD [address] [facility] [place] [address] PCP - General 12/04/07 Manager Services Relationship Specialty Start Date End Date Samantha Reyes MD [address] [facility] [place] [address] PCP - General 12/04/07 Manager Services Relationship Specialty Start Date End Date Samantha Reyes MD [address] [facility] [place] [address] PCP - General 12/04/07 Manager Services Relationship Specialty Start Date End Date Samantha Reyes MD [address] [place] [address] [place] [address] PCP - General 12/04/07 Manager Services Relationship Specialty Start Date End Date Samantha Reyes MD [address] [place] [address], [place] [address] PCP - General 12/04/07 Manager Services Relationship Specialty Start Date End Date Samantha Reyes MD [facility] [place] [address] PCP - General 12/04/07 Manager Services Relationship Specialty Start Date End Date Samantha Reyes MD [address] [place] [address], [place] [address] PCP - General 12/04/07 Manager Services Relationship Specialty Start Date End Date Samantha Reyes MD [address] [facility] [place] [address] PCP - General 12/04/07 Manager Services Relationship Specialty Start Date End Date Samantha Reyes MD [address] [place] [address], [place] [address] PCP - General 12/04/07 Manager Services Relationship Specialty Start Date End Date Samantha Reyes MD [address] [place] [address], [place] [address] PCP - General 12/04/07 Manager Services Relationship Specialty Start Date End Date Samantha Reyes MD [address] [place] [address] PCP - General 12/04/07 Manager Services Relationship Specialty Start Date End Date Samantha Reyes MD [address] [place] [address] PCP - General 12/04/07 Manager Services Relationship Specialty Start Date End Date Samantha Reyes MD [address] [place] [address] PCP - General 12/04/07 Manager Services Relationship Specialty Start Date End Date Samantha Reyes MD [address] [place] [address] PCP - General 12/04/07 Manager Services Relationship Specialty Start Date End Date Samantha Reyes MD [address] [place] [address] PCP - General 12/04/07 Manager Services Relationship Specialty Start Date End Date Samantha Reyes MD [address] [place] [address] PCP - General 12/04/07 Manager Services Relationship Specialty Start Date End Date Samantha Reyes MD [address] [place] [address] PCP - General 12/04/07 Manager Services Relationship Specialty Start Date End Date Samantha Reyes MD [address] [place] [address] PCP - General 12/04/07 FOR RECORDS PERTAINING TO PATIENTS WHO ARE OR HAVE BEEN ENROLLED IN A CHEMICAL DEPENDENCY/SUBSTANCEABUSE PROGRAM, SOME INFORMATION MAY BE OMITTED. This clinical summary was aggregated from multiple sources. Caution should be exercised in using it in the provision of clinical care. This summary normalizes information from multiple sources, and as a consequence, information in this document may materially change the coding, format and clinical context of patient data. In addition, data may be omitted in some cases. CLINICAL DECISIONS SHOULD BE BASED ON THE PRIMARY CLINICAL RECORDS. [facility] [employer] [facility]. provides no warranty or guarantee of the accuracy or completeness of information in this document.
[2023-08-11 11:34] LABS: AST(SGOT) 19 U/L (15-37); Alanine Aminotransfer ALT/SGPT 18 U/L (13-56); Albumin, Serum 3.8 g/dL (3.2-5.0); Alkaline Phosphatase 45 U/L (45-117); Bilirubin, Direct 0.12 mg/dL (0.00-0.30); Cholesterol 155 mg/dL (200); Globulin 2.9 g/dL (2.2-4.2); High Density Lipoprotein 54 mg/dL; Protein, Total 6.7 g/dL (6.4-8.2); Triglycerides 214 mg/dL; Very Low Density Lipoprotein 43 mg/dL (5-40)
== END | disposition home or self-care (01) ==
PROVIDERS: PCP Family Medicine; Referring Provider Physician Assistant Medical; Visit Provider Physician Assistant Medical
DX: E78.00 Pure hypercholesterolemia, unspecified (principal)
CPT/HCPCS: 36415; 80061; 80076

== ENCOUNTER → 2023-11-05 | Outpatient (CLI) | payer MEDICARE, OTHER, SELFPAY ==
[2023-11-05 09:53] LABS: ALB/GLOB Ratio 1.2 RATIO (0.9-2.4); AST(SGOT) 18 U/L (15-37); Alanine Aminotransfer ALT/SGPT 19 U/L (13-56); Albumin, Serum 3.6 g/dL (3.2-5.0); Alkaline Phosphatase 50 U/L (45-117); Anion Gap 6 (5-15); BUN 20 mg/dL (7-18); BUN/Creat Ratio 17.4 RATIO (10-20); Calcium,Total 10.1 mg/dL (8.5-10.1); Chloride 106 mmol/L (98-107); Cholesterol 140 mg/dL (200); Creatinine, Serum 1.15 mg/dL (0.55-1.02); EST Glomerular Filtration Rate 48 mL/min (>60); Est Glom Filt Rate - Afr Amer 58 mL/min (>60); Glucose 98 mg/dL (74-106); High Density Lipoprotein 52 mg/dL; Potassium 3.7 mmol/L (3.5-5.1); Protein, Total 6.6 g/dL (6.4-8.2); Sodium Level 139 mmol/L (136-145); Triglycerides 232 mg/dL; Very Low Density Lipoprotein 46 mg/dL (5-40)
== END | disposition home or self-care (01) ==
LOC: LAB 07:54
PROVIDERS: PCP Family Medicine; Referring Provider Internal Medicine Cardiovascular Disease; Visit Provider Internal Medicine Cardiovascular Disease
DX: I25.10 Atherosclerotic heart disease of native coronary artery without angina pectoris (principal); E78.00 Pure hypercholesterolemia, unspecified
CPT/HCPCS: 36415; 80053; 80061

== ENCOUNTER → 2024-02-14 | Outpatient (CLI) | payer MEDICARE, OTHER, SELFPAY ==
[2024-02-14 13:35] LABS: AST(SGOT) 18 U/L (15-37); Alanine Aminotransfer ALT/SGPT 20 U/L (13-56); Albumin, Serum 3.5 g/dL (3.2-5.0); Alkaline Phosphatase 53 U/L (45-117); Bilirubin, Direct 0.13 mg/dL (0.00-0.30); Cholesterol 148 mg/dL (200); Globulin 3.1 g/dL (2.2-4.2); High Density Lipoprotein 52 mg/dL; Protein, Total 6.6 g/dL (6.4-8.2); Triglycerides 246 mg/dL; Very Low Density Lipoprotein 49 mg/dL (5-40)
== END | disposition home or self-care (01) ==
PROVIDERS: PCP Family Medicine; Referring Provider Physician Assistant Medical; Visit Provider Physician Assistant Medical
DX: E78.00 Pure hypercholesterolemia, unspecified (principal)
CPT/HCPCS: 36415; 80061; 80076

== ENCOUNTER → 2024-04-04 | Outpatient (CLI) | payer MEDICARE, OTHER, SELFPAY | END | disposition home or self-care (01) | LOC: CVS 09:51 | PROVIDERS: PCP Family Medicine; Referring Provider Internal Medicine Cardiovascular Disease; Visit Provider Internal Medicine Cardiovascular Disease | DX: R42 Dizziness and giddiness (principal) | CPT/HCPCS: 93880 ==

== ENCOUNTER → 2024-04-10 | Outpatient (CLI) | payer MEDICARE, OTHER, SELFPAY ==
--- NOTE | 2024-04-10 06:44 | ECHOCS_ITS ---
Reason For Study: ATRIAL FIBRILLATION Procedure This was a 2D Doppler, Color Flow transthoracic echocardiogram. Contrast injection was performed. Exam performed in department. Left Ventricle Normal LV size. Mild concentric left ventricular hypertrophy. Borderline LV systolic function. Estimated EF 45 to 50%.. Unable to assess diastolic dysfunction due to arrhythmia. Right Ventricle Normal right ventricle. Atria The left atrium is severely enlarged. Normal right atrium. Mitral Valve Moderate mitral annular calcification. Mild-Moderate (1-2+) mitral valve insufficiency. Tricuspid Valve Mild (1+) tricuspid valve insufficiency. Right ventricular systolic pressure estimated to be 46 mmHg. Aortic Valve Moderately calcified the right coronary cusp of the aortic valve. Aortic valve sclerosis without stenosis. Mild aortic valve regurgitation. Pulmonic Valve The pulmonic valve is not well visualized. Great Vessels Normal sized aortic root. Pericardium/Pleural Trivial pericardial effusion. Medication 22 gauge I.V. with prn adaptor inserted into right arm. Diluted definity 2ml given slow IV push to enhance endocardial definition. MMode/2D Measurements & Calculations LVIDd: 4.6 cm IVSd: 1.4 cm LVOT diam: 2.2 cm LVIDs: 2.8 cm LVPWd: 1.1 cm RVDd: 2.8 cm FS: 38.8 % LVOT area: 3.7 cm2 asc Aorta Diam: 3.6 cm LAV(MOD-bp): 48.2 ml LVAd ap4: 23.8 cm2 LAV(MOD-bp) Indexed: 25.3 ml/m2 LVLd ap4: 6.3 cm LAV(MOD-sp2): 43.2 ml EDV(MOD-sp4): 75.6 ml LAV(MOD-sp4): 52.9 ml EDV(sp4-el): 76.2 ml LVAs ap4: 14.2 cm2 LVLs ap4: 5.5 cm ESV(MOD-sp4): 30.8 ml ESV(sp4-el): 31.0 ml EF(MOD-sp4): 59.2 % EF(sp4-el): 59.4 % LVAd ap2: 22.4 cm2 SV(MOD-sp4): 44.8 ml SV(MOD-sp2): 31.3 ml LVLd ap2: 7.0 cm SI(MOD-sp4): 23.5 ml/m2 SI(MOD-sp2): 16.4 ml/m2 EDV(MOD-sp2): 59.9 ml EDV(sp2-el): 61.3 ml LVAs ap2: 13.4 cm2 LVLs ap2: 5.8 cm ESV(MOD-sp2): 28.6 ml ESV(sp2-el): 26.2 ml EF(MOD-sp2): 52.3 % SV(sp4-el): 45.2 ml Ao sinus diam: 3.[address] Junction: 2.5 cm LA dimension(2D): 4.4 cm LA A4 area: 19.4 cm2 RA A4 area: 10.7 cm2 TAPSE: 1.3 cm Time Measurements MV dec time: 0.13 sec Doppler Measurements & Calculations MV E max edin: 94.0 cm/sec Lat Peak E' Edin: 11.8 cm/sec Med Peak E' Edin: 5.6 cm/sec E/E' lat: 8.0 E/E' med: 16.7 Ao V2 max: 142.8 cm/sec LV V1 max: 75.5 cm/sec SV(LVOT): 48.7 ml Ao max P.2 mmHg LV V1 max P.3 mmHg Ao V2 mean: 97.9 cm/sec LV V1 mean P.2 mmHg Ao mean P.3 mmHg LV V1 mean: 53.0 cm/sec Ao V2 VTI: 27.2 cm LV V1 VTI: 13.1 cm AV (velocity ratio): 0.48 TERRI(I,D): 1.8 cm2 TERRI(V,D): 2.0 cm2 PA V2 max: 92.7 cm/sec TR max edin: 278.8 cm/sec TR max P.1 mmHg ECHO/Echo Complete W/ Contrast Interpretation Summary Mild concentric left ventricular hypertrophy. Borderline LV systolic function. Estimated EF 45 to 50%.. The left atrium is severely enlarged. Moderate mitral annular calcification. Mild-Moderate (1-2+) mitral valve insufficiency. Mild (1+) tricuspid valve insufficiency. Right ventricular systolic pressure estimated to be 46 mmHg. Moderately calcified the right coronary cusp of the aortic valve. Aortic valve sclerosis without stenosis. Mild aortic valve regurgitation. Ordering Physician: Gorge Naik Referring Physician: MD Amy Rolf Performed By: Marce Joseph KEVIN
--- NOTE | 2024-04-10 12:57 | STRESSREP ---
Stress Test Report Date: 04/10/2024 Procedure: Pharmacologic stress nuclear imaging study Indications: Atrial fibrillation Consent: Per the patient Procedure: The patient underwent pharmacologic (Regadenoson 0.4mg ) evaluation with a peak heart rate of 93 beats per minute (67%predicted maximal heart rate) and a peak blood pressure of 126/70 mmHg. The baseline ECG demonstrated atrial fibrillation. The peak pharmacologic ECG demonstrated no diagnostic ischemic changes. Baseline atrial fibrillation. There was no complaint of chest discomfort during pharmacologic infusion or recovery. The patient was injected with 11.4 millicuries of technetium 99m Cardiolite and subsequently rest SPECT Cardiolite nuclear imaging was obtained in the horizontal long, vertical long, and short axis views. The patient underwent pharmacologic (Regadenoson) evaluation. The patient was injected with 34.2 millicuries of technetium 99m Cardiolite and subsequently stress SPECT Cardiolite nuclear imaging was obtained in the horizontal long, vertical long, and short axis views. A gated Cardiolite study at peak stress was obtained. The examination was stopped secondary to completion of protocol. Rest and stress SPECT Cardiolite nuclear imaging status post realignment, normalization, and attenuation correction demonstrate no fixed or reversible perfusion defects. There is end systolic thickening and brightening. The gated Cardiolite study demonstrates myocardial thickening and inward wall motion. The reported LVEF is 63%. Impression: 1. Pharmacologic (Regadenoson) evaluation 2. Peak pharmacologic ECG with no diagnostic ischemic changes. 3. Baseline atrial fibrillation. 5. Rest and stress SPECT Cardiolite nuclear imaging demonstrate relative uniform tracer uptake and myocardial perfusion appearing within normal limits. 6. The gated Cardiolite study reports an LVEF of 63%. This note was generated with Audiosocket[employer] software. It may contain incorrect words, spelling, and punctuation that were not noted in checking the note before signing.
== END | disposition home or self-care (01) ==
LOC: CVS 06:43
PROVIDERS: PCP Family Medicine; Referring Provider Internal Medicine Cardiovascular Disease; Visit Provider Internal Medicine Cardiovascular Disease
DX: I48.0 Paroxysmal atrial fibrillation (principal); R07.9 Chest pain, unspecified; R42 Dizziness and giddiness; I25.2 Old myocardial infarction; Z95.1 Presence of aortocoronary bypass graft; Z95.5 Presence of coronary angioplasty implant and graft
CPT/HCPCS: 78452; 93017; 93306; A9500; Q9957; A4216; C8929; J2785

== ENCOUNTER → 2024-05-12 | Outpatient (CLI) | payer MEDICARE, OTHER, SELFPAY ==
[2024-05-12 13:05] LABS: Anion Gap 4 (5-15); BUN 20 mg/dL (7-18); BUN/Creat Ratio 14.8 RATIO (10-20); Calcium,Total 10.3 mg/dL (8.5-10.1); Chloride 106 mmol/L (98-107); Creatinine, Serum 1.35 mg/dL (0.55-1.02); EST Glomerular Filtration Rate 40 mL/min (>60); Est Glom Filt Rate - Afr Amer 48 mL/min (>60); Glucose 112 mg/dL (74-106); Potassium 4.7 mmol/L (3.5-5.1); Sodium Level 138 mmol/L (136-145)
== END | disposition home or self-care (01) ==
LOC: LAB 12:17
PROVIDERS: PCP Family Medicine; Referring Provider Nurse Practitioner Gerontology; Visit Provider Nurse Practitioner Gerontology
DX: Z51.81 Encounter for therapeutic drug level monitoring (principal); Z79.899 Other long term (current) drug therapy
CPT/HCPCS: 36415; 80048

== ENCOUNTER → 2024-09-16 | Day surgery (SDC) | payer MEDICARE, OTHER, SELFPAY ==
--- NOTE | 2024-09-15 08:14 | RAD_ITS ---
PROCEDURE: CHEST PA AND LATERAL 09/15/2024 REASON FOR EXAM: PRE-PROCEDURE DIAGNOSTIC EXAM TECHNIQUE: Frontal and lateral views of the chest. COMPARISON: None. FINDINGS: Hardware: Prior median sternotomy and CABG. Heart: Heart size is mildly enlarged. Mediastinum: There are atherosclerotic calcifications of the thoracic aorta. Lungs: Bibasilar atelectasis. Scattered calcified granulomas. No focal consolidation, pleural effusion or pneumothorax. Bones: Degenerative changes are identified within the thoracic spine. RAD/Chest PA and Lateral IMPRESSION: Mild cardiomegaly with prior median sternotomy and CABG. Reading Location: [id number]
[2024-09-15 08:22] VITALS: BMI 31.2
[2024-09-15 08:27] LABS: Absolute Lymphocyte Count 2.61 X10^3/uL (0.83-4.51); Absolute Neutrophil Count 4.9 X10^3/uL (2.0-7.7); Basophil# 0.05 X10^3/uL; Basophil% 0.6 % (0-1); Eosinophil# 0.14 X10^3/uL; Eosinophils% 1.7 % (0-5); Hematocrit 38.4 % (37-47); Hemoglobin 12.4 g/dL (12.0-15.0); Lymphocyte # 2.61 X10^3/ul (0.83-4.51); Lymphocyte % 30.9 % (19-41); Mean Corp Hgb Conc 32.3 g/dL (32-36); Mean Corpuscular Hgb 28.1 pg (27.0-32.0); Mean Corpuscular Volume 87.1 fL (81-99); Mean Platelet Vol. 11.2 fl (6.2-12.0); Monocyte# 0.74 X10^3/uL; Monocyte% 8.7 % (0-10); NRBC Flagged by Analyzer 0 % (0-5); Neutrophil # 4.89 X10^3/uL (2.7-7.7); Neutrophil % 57.7 % (47-70); Platelet Count 246 K/mm3 (150-450); RBC Distribution Width CV 12.5 % (11.6-14.6); RBC Distribution Width SD 39.8 fl (35.1-43.9); Red Blood Count 4.41 M/mm3 (4.2-5.4); White Blood Count 8.5 K/mm3 (4.4-11.0)
[2024-09-15 08:35] LABS: International Normalized Ratio 1.4; Prothrombin Time (Protime)PT. 17.1 SECONDS (11.7-14.9)
[2024-09-15 08:54] LABS: Anion Gap 10 (5-15); BUN 24 mg/dL (4-19); BUN/Creat Ratio 16.4 RATIO (10-20); Calcium,Total 10.4 mg/dL (7.6-11.0); Chloride 105 mmol/L (98-108); Creatinine, Serum 1.49 mg/dL (0.70-1.20); EST Glomerular Filtration Rate 34 (>60); Estimated Creatinine Clearance 29.21 ml/min (50-250); Glucose 106 mg/dL (70-99); Potassium 4.5 mmol/L (3.3-5.1); Sodium Level 139 mmol/L (133-145)
== END | disposition home or self-care (01) ==
LOC: CLSP 07:25
PROVIDERS: PCP Family Medicine; Referring Provider Internal Medicine Cardiovascular Disease; Visit Provider Internal Medicine Cardiovascular Disease
DX: R07.9 Chest pain, unspecified (principal); I48.0 Paroxysmal atrial fibrillation; I47.29 Other ventricular tachycardia; I10 Essential (primary) hypertension; R53.83 Other fatigue; R42 Dizziness and giddiness
CPT/HCPCS: 36415; 71046; 80048; 85025; 85610

== ENCOUNTER → 2024-10-01 | Outpatient (CLI) | payer MEDICARE, OTHER, SELFPAY ==
--- NOTE | 2024-10-01 13:17 | ECHOCS_ITS ---
Reason For Study Reason For Study: CHEST PAIN Procedure This was a 2D Doppler, Color Flow transthoracic echocardiogram. The study was technically difficult. Due to body habitus. Contrast injection was performed. Left Ventricle Normal LV size. Mild concentric left ventricular hypertrophy. Moderate to severe generalized LV hypokinesis. Estimated LVEF 35-40%. Diastolic dysfunction. Right Ventricle Normal right ventricle. Atria The left atrium is severely enlarged. The right atrium is moderately enlarged. Mitral Valve There is Mild focal posterior mitral annular calcification. Mild (1+) mitral valve insufficiency. Tricuspid Valve Moderately severe (3+) tricuspid valve insufficiency. Normal pulmonary artery pressure. Aortic Valve Aortic valve right coronary cusp mildly calcified with restricted leaflet excursion. Valve area 2.2 cm?? by planimetry. Trivial to mild regurgitation. Pulmonic Valve The pulmonic valve is not well visualized. Trivial pulmonic valve insufficiency. Great Vessels Normal sized aortic root. Pericardium/Pleural No pericardial effusion. Medication 22 gauge I.V. with prn adaptor inserted into right arm. Diluted definity 3.0ml given slow IV push to enhance endocardial definition. MMode/2D Measurements & Calculations LVIDd: 4.7 cm IVSd: 1.1 cm Ao root diam: 3.6 cm LVIDs: 3.7 cm LVPWd: 1.3 cm RVDd: 3.3 cm FS: 22.2 % LAV(MOD-bp): 97.2 ml LVAd ap4: 22.7 cm2 LVAd ap2: 18.0 cm2 LAV(MOD-bp) Indexed: 51.7 ml/m2 LVLd ap4: 6.5 cm LVLd ap2: 6.3 cm LAV(MOD-sp2): 84.2 ml EDV(MOD-sp4): 69.2 ml EDV(MOD-sp2): 44.0 ml LAV(MOD-sp4): 99.8 ml EDV(sp4-el): 67.6 ml EDV(sp2-el): 43.6 ml LVAs ap4: 14.8 cm2 LVAs ap2: 12.2 cm2 LVLs ap4: 5.5 cm LVLs ap2: 5.6 cm ESV(MOD-sp4): 35.1 ml ESV(MOD-sp2): 21.9 ml ESV(sp4-el): 33.8 ml ESV(sp2-el): 22.4 ml EF(MOD-sp4): 49.3 % EF(MOD-sp2): 50.3 % EF(sp4-el): 49.9 % SV(MOD-sp4): 34.1 ml SV(MOD-sp2): 22.1 ml SV(sp4-el): 33.7 ml SI(MOD-sp4): 18.1 ml/m2 SI(MOD-sp2): 11.8 ml/m2 Aortic Valve Planimetry: 2.2 cm2 LA A4 area: 27.9 cm2 LA dimension(2D): 5.1 cm TAPSE: 1.4 cm RA A4 area: 17.4 cm2 Doppler Measurements & Calculations MV E max liang: 109.6 cm/sec Ao V2 max: 120.7 cm/sec LV V1 max: 59.5 cm/sec Ao max P.8 mmHg LV V1 max P.4 mmHg Ao V2 mean: 82.8 cm/sec LV V1 mean P.78 mmHg Ao mean P.1 mmHg LV V1 mean: 41.5 cm/sec Ao V2 VTI: 24.0 cm LV V1 VTI: 13.2 cm AV (velocity ratio): 0.55 PA V2 max: 69.6 cm/sec TR max liang: 261.9 cm/sec PA V2 mean: 44.3 cm/sec TR max P.4 mmHg ECHO/Echo Complete W/ Contrast Interpretation Summary Mild concentric left ventricular hypertrophy. Moderate to severe generalized LV hypokinesis. Estimated LVEF 35-40%. Diastolic dysfunction. The left atrium is severely enlarged. The right atrium is moderately enlarged. Mild (1+) mitral valve insufficiency. Moderately severe (3+) tricuspid valve insufficiency. Aortic valve right coronary cusp mildly calcified with restricted leaflet excur petey. Valve area 2.2 cm?? by planimetry. Trivial to mild regurgitation. Ordering Physician: Gorge Naik Referring Physician: Rolf Reyes Performed By: Rebecca Orozco, SIMBA, RVT
== END | disposition home or self-care (01) ==
LOC: CVS 13:13
PROVIDERS: PCP Family Medicine; Referring Provider Internal Medicine Cardiovascular Disease; Visit Provider Internal Medicine Cardiovascular Disease
DX: R07.9 Chest pain, unspecified (principal)
CPT/HCPCS: 93306; Q9957; A4216; C8929

== ENCOUNTER 2024-10-02 07:12 | Day surgery (SDC) | payer MEDICARE, OTHER, SELFPAY ==
[2024-10-01 07:48] VITALS: BMI 31.2
== END 2024-10-02 11:00 | disposition home or self-care (01) ==
PROVIDERS: PCP Family Medicine; Referring Provider Internal Medicine Cardiovascular Disease; Visit Provider Internal Medicine Cardiovascular Disease
DX: I25.10 Atherosclerotic heart disease of native coronary artery without angina pectoris (principal); I11.0 Hypertensive heart disease with heart failure; I50.20 Unspecified systolic (congestive) heart failure; I48.0 Paroxysmal atrial fibrillation; E78.00 Pure hypercholesterolemia, unspecified; I25.2 Old myocardial infarction; Z79.51 Long term (current) use of inhaled steroids; Z79.899 Other long term (current) drug therapy; Z79.01 Long term (current) use of anticoagulants; Z79.82 Long term (current) use of aspirin
CPT/HCPCS: 93455; 99152; 99153; Q9967; C1769; C1894

== ENCOUNTER 2024-10-06 12:09 | Emergency (ER) | payer MEDICARE, OTHER, SELFPAY ==
[2024-10-06] VITALS (9 sets, daily range): BP systolic 105–135; BP diastolic 63–100; PULSE 71–92; RESP 12–28; TEMP 36.6–37.1; O2SAT 94–98; BMI 31.3
--- NOTE | 2024-10-06 12:15 | EKG12_ITS ---
Test Reason : HEART RATE Blood Pressure : */* mmHG Vent. Rate : 91 BPM Atrial Rate : * BPM P-R Int : * ms QRS Dur : 78 ms QT Int : 334 ms P-R-T Axes : * 8 193 degrees QTcB Int : 410 ms Atrial fibrillation with premature ventricular or aberrantly conducted complexes ST & T wave abnormality, consider anterolateral ischemia Abnormal ECG Confirmed by Azar Cedillo ([id number]), continuity editor BERNY HUMPHREYS ([id number]) on 10/07/2024 9:12:27 AM Referred By: Confirmed By: Azar Cedillo
[2024-10-06 12:56] LABS: Absolute Lymphocyte Count 2.28 X10^3/uL (0.83-4.51); Absolute Neutrophil Count 4.4 X10^3/uL (2.0-7.7); Basophil# 0.05 X10^3/uL; Basophil% 0.7 % (0-1); Eosinophil# 0.15 X10^3/uL; Hematocrit 37.6 % (37-47); Hemoglobin 11.9 g/dL (12.0-15.0); Lymphocyte # 2.28 X10^3/ul (0.83-4.51); Mean Corp Hgb Conc 31.6 g/dL (32-36); Mean Corpuscular Hgb 28.1 pg (27.0-32.0); Mean Corpuscular Volume 88.9 fL (81-99); Monocyte# 0.72 X10^3/uL; Monocyte% 9.5 % (0-10); NRBC Flagged by Analyzer 0 % (0-5); Neutrophil # 4.37 X10^3/uL (2.7-7.7); Neutrophil % 57.3 % (47-70); Platelet Count 240 K/mm3 (150-450); RBC Distribution Width CV 12.6 % (11.6-14.6); RBC Distribution Width SD 41.1 fl (35.1-43.9); Red Blood Count 4.23 M/mm3 (4.2-5.4); White Blood Count 7.6 K/mm3 (4.4-11.0)
[2024-10-06 14:02] LABS: Anion Gap 9 (5-15); BUN 24 mg/dL (4-19); BUN/Creat Ratio 17.9 RATIO (10-20); Calcium,Total 10.3 mg/dL (7.6-11.0); Carbon Dioxide 23.5 mmol/L (21.0-32.0); Chloride 104 mmol/L (98-108); Creatinine, Serum 1.35 mg/dL (0.70-1.20); EST Glomerular Filtration Rate 39 (>60); Estimated Creatinine Clearance 32.27 ml/min (50-250); Glucose 100 mg/dL (70-99); Potassium 4.7 mmol/L (3.3-5.1); Sodium Level 137 mmol/L (133-145); Troponin T High Sensitivity 20 ng/L (<=14)
--- NOTE | 2024-10-06 14:45 | EDS_ITS ---
HPI History of Present Illness Chief Complaint: Shortness of Breath Informant: patient Narrative Narrative: Patient has a history of congestive heart failure and paroxysmal atrial fibrillation, she states she is chronically dyspneic with exertion, but it was worse this morning and every time she would stand up or exert herself she would feel lightheaded sometimes near syncopal but never had syncopal episode. No chest discomfort or heaviness. No palpitations or headache. She states he has felt like this when she is in A-fib before, she did not know she was in A-fib and that she came here to the ER and had an EKG that showed that, she states she typically feels it and knows when she is in A-fib. She states she felt fine yesterday, walking around did not make her nearly as dyspneic as she has been today. She denies any leg edema. She states she is supposed to be sent to [facility] at some point for a valve replacement, according to her progressive die maker Dr. Naik. She is not sure which valve. [facility] Medical History Aortic stenosis Atrial fibrillation Dyslipidemia Hypertension Coronary artery disease History of cardioversion Anticoagulant long-term use Fatigue Chest heaviness Dyspnea Overactive bladder Pure hypercholesterolemia Essential hypertension Small bowel obstruction Chest pain Chest pain due to CAD Left-sided pyelonephritis History of acute myocardial infarction of anterolateral wall (02/2000) History of pulmonary embolism History of DVT (deep vein thrombosis) Paroxysmal atrial fibrillation Atherosclerotic heart disease of lime coronary artery without angina pectoris Ovarian cancer ivc filter retreval Pericardial effusion Hypothyroid GERD (gastroesophageal reflux disease) Stress incontinence Pulmonary emboli Other long-term (current) drug therapy Ovarian cancer Dyspnea on exertion Wide-complex tachycardia Home Medications ?Medication ?Instructions ?Recorded ?Last Taken ?Type mirabegron 50 mg tablet,extended 50 mg PO DAILY Unknown History release 24 hr lansoprazole 30 mg capsule,delayed 30 mg PO DAILY 02/16 Unknown History release aspirin 81 mg tablet,delayed 81 mg PO DAILY 08/11/22 0 10/02/24 History release (Adult Low Dose Aspirin) niacin 500 mg tablet,extended 500 mg PO BID #180 tabs 01/19/23 Unknown Rx release 24 hr levothyroxine 125 mcg tablet 125 mcg PO DAILY 09/07/23 Unknown History sucralfate 1 gram tablet 1 g PO QACHS 02/01/23 Unknow n History nitroglycerin 0.4 mg sublingual 0.4 mg sublingual Q5M PRN Chest 03/15/23 Unknown Rx tablet Pain #25 tabs potassium chloride 20 mEq 20 meq PO DAILY #90 tabs Unknown Rx tablet,extended release calcium carbonate (Calcium 600) 600 mg PO DAILY Unknown History acetaminophen 500 mg capsule 500 mg PO Q6H PRN fever o r pain 08/22/23 Unknown History albuterol sulfate 90 mcg/actuation 2 puff inhalation Q 6H PRN 08/22/23 Unknown History aerosol inhaler shortness of breath or wheez ing oxybutynin chloride 10 mg 10 mg PO QDAY 08/22/23 Unkno wn History tablet,extended release 24 hr cholecalciferol (vitamin D3) 1,250 1,250 mcg PO QWEEK 03/24/24 Unknown History mcg (50,000 unit) capsule rosuvastatin 20 mg tablet 20 mg PO BID 03/24/24 Unknow n History spironolactone 25 mg tablet 25 mg PO QDAY #30 tabs Unknown Rx amlodipine 2.5 mg tablet 2.5 mg PO QDAY #90 tabs 08/26 10/19 Unknown Rx hydrochlorothiazide 12.5 mg tablet 12.5 mg PO QDAY Unknown History ramipril 5 mg capsule 5 mg PO QDAY #90 caps Unknown Rx apixaban 5 mg tablet (Eliquis) 5 mg PO BID 10/02/24 History carvedilol 6.25 mg tablet 6.25 mg PO BID #60 tabs 05/0 01/19 Unknown Rx Allergy/AdvReac Type Severity Reaction Status Date / Time poison niya extract Allergy Itching Verified 10/06/24 12:10 poison oak extract Allergy Itching Verified 10/06/24 12:10 streptokinase (Streptokinase) AdvReac Severe Hives Verified 10/06/24 12:10 Family History Brother Hypertension Cancer Mother CVA (cerebral vascular accident) Hypertension
--- NOTE | 2024-10-06 14:45 | ED.VIS.DYS ---
HPI History of Present Illness Chief Complaint: Shortness of Breath Informant: patient Narrative Narrative: Patient has a history of congestive heart failure and paroxysmal atrial fibrillation, she states she is chronically dyspneic with exertion, but it was worse this morning and every time she would stand up or exert herself she would feel lightheaded sometimes near syncopal but never had syncopal episode. No chest discomfort or heaviness. No palpitations or headache. She states he has felt like this when she is in A-fib before, she did not know she was in A-fib and that she came here to the ER and had an EKG that showed that, she states she typically feels it and knows when she is in A-fib. She states she felt fine yesterday, walking around did not make her nearly as dyspneic as she has been today. She denies any leg edema. She states she is supposed to be sent to [place] at some point for a valve replacement, according to her mitten stitcher Dr. Naik. She is not sure which valve. [facility] Medical History Aortic stenosis Atrial fibrillation Dyslipidemia Hypertension Coronary artery disease History of cardioversion Anticoagulant long-term use Fatigue Chest heaviness Dyspnea Overactive bladder Pure hypercholesterolemia Essential hypertension Small bowel obstruction Chest pain Chest pain due to CAD Left-sided pyelonephritis History of acute myocardial infarction of anterolateral wall (02/2000) History of pulmonary embolism History of DVT (deep vein thrombosis) Paroxysmal atrial fibrillation Atherosclerotic heart disease of [place] coronary artery without angina pectoris Ovarian cancer ivc filter retreval Pericardial effusion Hypothyroid GERD (gastroesophageal reflux disease) Stress incontinence Pulmonary emboli Other long term acute care registered nurse (current) drug therapy Ovarian cancer Dyspnea on exertion Wide-complex tachycardia Home Medications ?Medication ?Instructions ?Recorded ?Last Taken ?Type mirabegron 50 mg tablet,extended 50 mg PO DAILY 10/04/21 Unknown History release 24 hr lansoprazole 30 mg capsule,delayed 30 mg PO DAILY 02/03/22 Unknown History release aspirin 81 mg tablet,delayed 81 mg PO DAILY 08/11/22 10/02/24 History release (Adult Low Dose Aspirin) niacin 500 mg tablet,extended 500 mg PO BID #180 tabs 01/19/23 Unknown Rx release 24 hr levothyroxine 125 mcg tablet 125 mcg PO DAILY 02/01/23 Unknown History sucralfate 1 gram tablet 1 g PO QACHS 02/01/23 Unknown History nitroglycerin 0.4 mg sublingual 0.4 mg sublingual Q5M PRN Chest 03/15/23 Unknown Rx tablet Pain #25 tabs potassium chloride 20 mEq 20 meq PO DAILY #90 tabs 03/15/23 Unknown Rx tablet,extended release calcium carbonate (Calcium 600) 600 mg PO DAILY 04/13/23 Unknown History acetaminophen 500 mg capsule 500 mg PO Q6H PRN fever or pain 08/22/23 Unknown History albuterol sulfate 90 mcg/actuation 2 puff inhalation Q6H PRN 08/22/23 Unknown History aerosol inhaler shortness of breath or wheezing oxybutynin chloride 10 mg 10 mg PO QDAY 08/22/23 Unknown History tablet,extended release 24 hr cholecalciferol (vitamin D3) 1,250 1,250 mcg PO QWEEK 03/24/24 Unknown History mcg (50,000 unit) capsule rosuvastatin 20 mg tablet 20 mg PO BID 03/24/24 Unknown History spironolactone 25 mg tablet 25 mg PO QDAY #30 tabs 04/22/24 Unknown Rx amlodipine 2.5 mg tablet 2.5 mg PO QDAY #90 tabs 09/09/24 Unknown Rx hydrochlorothiazide 12.5 mg tablet 12.5 mg PO QDAY 09/09/24 Unknown History ramipril 5 mg capsule 5 mg PO QDAY #90 caps 09/09/24 Unknown Rx apixaban 5 mg tablet (Eliquis) 5 mg PO BID 10/02/24 09/29/24 History carvedilol 6.25 mg tablet 6.25 mg PO BID #60 tabs 10/02/24 Unknown Rx Allergy/AdvReac Type Severity Reaction Status Date / Time poison niya extract Allergy Itching Verified 10/06/24 12:10 poison oak extract Allergy Itching Verified 10/06/24 12:10 streptokinase (Streptokinase) AdvReac Severe Hives Verified 10/06/24 12:10 Family History Brother Hypertension Cancer Mother CVA (cerebral vascular accident) Hypertension Surgical History Stented coronary artery (10/18/07) H/O coronary artery bypass surgery (~02/2000) History of back surgery Hx of appendectomy History of hysterectomy History of thyroidectomy Social History Smoking Status: Former smoker how long ago did patient quit smokin years ago alcohol intake: current alcohol intake frequency: holidays/special occasions only Alcohol type: wine substance use type: does not use caffeine: No what type of physical activity do you participate in: none seatbelt use: always ROS ROS ED Constitutional Constitutional ED: Denies chills or fever(s) Eyes Eyes: Denies change in vision or diplopia ENT ENT ED: Denies rhinorrhea or sore throat Cardiovascular Cardiovascular: Reports easily tiring during activity, lightheadedness and orthostatic symptoms; Denies chest pain, leg edema, palpitations, racing heartbeat or syncope Respiratory/Chest Respiratory/Chest: Reports dyspnea and dyspnea on exertion; Denies cough Gastrointestinal Gastrointestinal: Denies abdominal pain, diarrhea, nausea or vomiting Genitourinary Genitourinary ED: Denies dysuria or hematuria Musculoskeletal Musculoskeletal: Denies back pain or neck pain Integumentary Denies abscess or rash Neurologic Neurologic: Denies headache(s), paresthesias or weakness Psychiatric Psychiatric: Denies anxiety or suicidal thoughts EXAM Physical Exam Const Vital Signs: 10/06/24 12:10 10/06/24 12:15 10/06/24 13:26 Temperature 97.8 F Temperature Source Oral Pulse Rate 79 79 Respiratory Rate 15 19 H Respiratory Effort Blood Pressure 135/82 H 125/100 H Blood Pressure Mean 99 108 Pulse Ox 98 96 Oxygen Delivery Method Room Air Room Air Room Air 10/06/24 13:28 10/06/24 14:00 10/06/24 15:00 Temperature Temperature Source Pulse Rate 73 76 Respiratory Rate 19 H 24 H Respiratory Effort Normal Blood Pressure 107/63 105/63 Blood Pressure Mean 77 77 Pulse Ox 95 98 Oxygen Delivery Method Room Air Room Air Room Air 10/06/24 16:00 10/06/24 17:00 10/06/24 17:18 Temperature 98.7 F Temperature Source Pulse Rate 91 92 71 Respiratory Rate 12 28 H 20 H Respiratory Effort Blood Pressure 113/67 120/68 120/68 Blood Pressure Mean 82 85 85 Pulse Ox 97 95 94 Oxygen Delivery Method Room Air Positive well nourished and well developed Constitutional Narrative: Well-appearing conversive in full sentences General Appearance ED: well developed and NAD HEENT Reports moist mucous membranes normocephalic and atraumatic Eyes PERRL and EOMs intact bilaterally Neck full ROM, supple and no JVD Resp normal respiratory effort and clear to auscultation bilaterally Cardio Rhythm: abnormal rhythm irregularly irregular GI non-tender and non-distended Auscultation: normoactive bowel sounds Palpation: soft Back/Spine no CVA tenderness General Back: other FROM Extremity normal to inspection General Extremety ED: Negative for edema, pulses abnormal or tenderness General Extremity: Negative for edema or pulses abnormal Neuro oriented x3, CN's II-XII intact bilaterally and no sensory deficits noted Sensorium / Orientation: awake and alert Motor Exam: strength 5/5 throughout Psych mental status grossly normal Skin no rashes or lesions noted and no wounds MDM MDM MDM Narrative Medical decision making narrative: Patient had a cardiology visit in the office in August, then this past week she had an echo and a cath, but there are no documented recommendations after the updated echocardiogram and catheterization results. It seems that her aortic regurgitation does not appear severe but her tricuspid regurgitation is, mitral regurgitation is mild as well. She has a couple of 40% coronary lesions and a patent graft. Right now her vital signs are normal and she is in rate controlled atrial fibrillation. With her orthostatic symptoms, and labs showing a little prerenal azotemia, I think she may benefit from a small amount of IV fluids I gave her 500 cc while we were waiting for the delta troponin. The deltas are lower. In the meantime after the fluids, she had some dyspnea after exerting herself but did not become hypoxic, and states she thinks she felt a little better than she did before coming to the ER. She did feel little lightheaded but not presyncopal/syncopal. She denies any exertional chest discomfort. I discussed this case with Dr. Cedillo who is on the cardiology. We reviewed her recent heart cath and echocardiogram, and it is unclear what type of specialty referral she requires from these. Patient states she had her atenolol changed to carvedilol less than 1 week ago. He would not recommend changing that based on her vital signs which are all normal; her pulse is in the 70s, blood pressure 120/68, respirations between 15-20, and right now her pulse ox is 94% on room air. She is conversing in full sentences. She wants to go home and I think it is reasonable to allow this, cardiology advised her to call Dr. Naik's office tomorrow for further instructions. History & Record Review Additional record(s) reviewed:: Other (Echo ejection fraction 35-40% with diastolic dysfunction and moderate to severe generalized LV hypokinesis.) Lab Data Attestation: I reviewed the patient's lab results. Labs: Laboratory Results - last 24 hr 10/06/24 10/06/24 10/06/24 12:43 15:23 16:33 WBC 7.6 RBC 4.23 Hgb 11.9 L Hct 37.6 MCV 88.9 MCH 28.1 MCHC 31.6 L RDW Std Deviation 41.1 RDW Coeff of Burke 12.6 Plt Count 240 MPV 11.0 Immature Gran % (Auto) 0.500 Neut % (Auto) 57.3 Lymph % (Auto) 30.0 [place] % (Auto) 9.5 Eos % (Auto) 2.0 Baso % (Auto) 0.7 Absolute Neuts (auto) 4.4 Absolute Lymphs (auto) 2.28 Nucleated RBC % 0 Sodium 137 Potassium 4.7 Chloride 104 Carbon Dioxide 23.5 Anion Gap 9 BUN 24 H Creatinine 1.35 H Estim Creat Clear Calc 32.27 L Est GFR (MDRD) Non-Af 39 L BUN/Creatinine Ratio 17.9 Glucose 100 H Calcium 10.3 Troponin T High Sens 20 H Troponin T Hi Sens 2 Hr 17 H Troponin T Hi Sens 4Hr 18 H Rhythm Strip Rhythm Strip: A-fib Rate: 70 Ectopy: None EKG Initial EKG: Attestation: I personally reviewed and interpreted this EKG as follows: Interpretation: No Acute Injury Pattern, Atrial Fibrillation and Non-Specific ST Changes Management Discussion w/another healthcare provider: Data Processing Systems Consultant (Cardiology Dr. Cedillo) Discharge Plan Triage Chief Complaint: Shortness of Breath ED Provider: Valdez Toney Dx/Rx/DC Orders Clinical Impression: Dyspnea on exertion, Atrial fibrillation, Lightheadedness, Anticoagulated, Cardiomyopathy Instructions: Cardiomyopathy Dc, ED Dyspnea Prescriptions: No Action Myrbetriq 50 mg tablet extended release 24 hr 50 mg PO DAILY Patient Comments: TAKE 1 TABLET BY MOUTH EVERY DAY aspirin [Adult Low Dose Aspirin] 81 mg tablet,delayed release (DR/EC) 81 mg PO DAILY sucralfate 1 gram tablet 1 g PO QACHS Patient Comments: TAKE 1 TABLET BY MOUTH BEFORE MEALS AND AT BEDTIME levothyroxine 125 mcg tablet 125 mcg PO DAILY Patient Comments: TAKE 1 TABLET BY MOUTH ONCE DAILY. TAKE ON EMPTY STOMACH. FOR THYROID. cholecalciferol (vitamin D3) 1,250 mcg (50,000 unit) capsule 1,250 mcg PO QWEEK calcium carbonate [Calcium 600] 600 mg calcium (1,500 mg) tablet 600 mg PO DAILY oxybutynin chloride 10 mg tablet extended release 24hr 10 mg PO QDAY albuterol sulfate 90 mcg/actuation HFA aerosol inhaler 2 puff inhalation Q6H PRN (Reason: shortness of breath or wheezing) acetaminophen 500 mg capsule 500 mg PO Q6H PRN (Reason: fever or pain) rosuvastatin 20 mg tablet 20 mg PO BID hydrochlorothiazide 12.5 mg tablet 12.5 mg PO QDAY ramipril 5 mg capsule 5 mg PO QDAY Qty: 90 3RF amlodipine 2.5 mg tablet 2.5 mg PO QDAY Qty: 90 3RF lansoprazole 30 mg capsule,delayed release(DR/EC) 30 mg PO DAILY Patient Comments: TAKE 1 CAPSULE BY MOUTH DAILY BEFORE BREAKFAST. 1/2 HR BEFORE MEAL. Eliquis 5 mg tablet 5 mg PO BID Rx Instructions: restart tomorrow 10/03/24 niacin 500 mg tablet extended release 24 hr 500 mg PO BID Qty: 180 3RF potassium chloride 20 mEq tablet extended release 20 meq PO DAILY Qty: 90 3RF nitroglycerin 0.4 mg tablet, sublingual 0.4 mg SUBLINGUAL Q5M PRN (Reason: Chest Pain) Qty: 25 3RF spironolactone 25 mg tablet 25 mg PO QDAY Qty: 30 11RF carvedilol 6.25 mg tablet 6.25 mg PO BID Qty: 60 6RF Rx Instructions: must administer with a meal/food Primary Care Provider: Rolf Reyes Referrals: Gorge Naik MD [Med Staff - Active Staff] - (Call tomorrow for further instructions and/or referral information) Print Language: [place] Disposition Disposition: Home, Self Care
[2024-10-06] MEDS: 0.9% Normal Saline (500mL Bag) 500 ML 999 ML IV (15:20)
[2024-10-06 15:54] LABS: Troponin T High Sens 2 HR 17 ng/L (<=14)
--- NOTE | 2024-10-06 16:45 | RAD_ITS ---
PROCEDURE: CHEST 1 VIEW (PORTABLE) 10/06/2024 REASON FOR EXAM: SOB TECHNIQUE: Frontal view of the chest. COMPARISON: Chest x-ray 09/15/2024. RAD/Chest 1 View (Portable) IMPRESSION: The cardiomediastinal silhouette is stable, with postsurgical changes again not ed. Lungs appear clear of acute disease. No pleural effusion or pneumothorax is evident. No interval osseous changes seen. No evidence of acute cardiopulmonary disease. Reading Location: [place] [id number]
[2024-10-06 17:01] LABS: Troponin T High Sens 4 HR 18 ng/L (<=14)
== END 2024-10-06 17:31 | disposition home or self-care (01) ==
PROVIDERS: Emergency Provider Emergency Medicine; PCP Family Medicine; Visit Provider Emergency Medicine
DX: R06.09 Other forms of dyspnea (principal); I50.32 Chronic diastolic (congestive) heart failure; I11.0 Hypertensive heart disease with heart failure; I48.91 Unspecified atrial fibrillation; I42.9 Cardiomyopathy, unspecified; I25.10 Atherosclerotic heart disease of native coronary artery without angina pectoris; R42 Dizziness and giddiness; Z87.891 Personal history of nicotine dependence; Z79.01 Long term (current) use of anticoagulants; Z86.718 Personal history of other venous thrombosis and embolism; Z86.711 Personal history of pulmonary embolism
CPT/HCPCS: 71045; 80048; 84484; 85025; 93005; 94760; 99282; A4216

== ENCOUNTER 2024-11-17 08:29 | Outpatient (CLI) | payer MEDICARE, OTHER, SELFPAY ==
[2024-11-17 11:11] LABS: Anion Gap 15 (5-15); BUN 33 mg/dL (4-19); BUN/Creat Ratio 16.1 RATIO (10-20); Calcium,Total 10.5 mg/dL (7.6-11.0); Chloride 104 mmol/L (98-108); Creatinine, Serum 2.04 mg/dL (0.70-1.20); EST Glomerular Filtration Rate 24 (>60); Glucose 110 mg/dL (70-99); Potassium 4.8 mmol/L (3.3-5.1); Sodium Level 136 mmol/L (133-145)
[2024-11-17 11:13] LABS: Pro- Brain NATRIURETIC PEPTIDE 1269 pg/mL (<=1800)
== END 2024-11-17 23:59 | disposition home or self-care (01) ==
LOC: LAB 08:34
PROVIDERS: PCP Family Medicine
DX: I48.3 Typical atrial flutter (principal)
CPT/HCPCS: 36415; 80048; 83880

== ENCOUNTER 2025-02-08 17:50 | Inpatient (IN) | payer MEDICARE, OTHER, SELFPAY ==
[2025-02-08 17:50] VITALS: BP 95/67; PULSE 86; RESP 16; TEMP 36.6; O2SAT 98
--- NOTE | 2025-02-08 18:02 | EKG12_ITS ---
Test Reason : WEAKNESS Blood Pressure : */* mmHG Vent. Rate : 83 BPM Atrial Rate : 366 BPM P-R Int : * ms QRS Dur : 88 ms QT Int : 396 ms P-R-T Axes : * 15 234 degrees QTcB Int : 465 ms Atrial flutter with variable A-V block ST & T wave abnormality, consider anterolateral ischemia Abnormal ECG Confirmed by Azar Cedillo ([id number]), city editor DUKE CAMPBELL ([id number]) on 02/09/2025 1:22:35 PM Referred By: Confirmed By: Azar Cedillo
--- NOTE | 2025-02-08 18:13 | EX.ED.DYSGE1 ---
HPI History of Present Illness Chief Complaint: Weakness Informant: patient Onset/Context/Timing Onset: Weeks Context: Sudden Onset Timing: Intermittent Current Severity: Mild Maximum Severity: Mild Narrative Narrative: 84-year-old female extensive past history of aortic stenosis, A-fib on blood thinner Eliquis, CABG, hypertension, CAD, prior DVT and PE) kidney disease. States he has been weak over the last month has had multiple falls falling almost once daily. Denies any head injury. There today she fell in her pantry narrative paramedics come and help her up but she did not come in at that time. She denies any recent illness. She denies any nausea, vomiting or diarrhea. She denies any fever or chills. She denies any discharge urea. Denies any recent medication changes. In February she is going to go to [facility] for possible cardiac ablation. Prior similar symptoms: Yes Recent Illness/Hospitalization: No [facility] Medical History Aortic stenosis Atrial fibrillation Dyslipidemia Hypertension Coronary artery disease History of cardioversion Anticoagulant long-term use Fatigue Chest heaviness Dyspnea Overactive bladder Pure hypercholesterolemia Essential hypertension Small bowel obstruction Chest pain Chest pain due to CAD Left-sided pyelonephritis History of acute myocardial infarction of anterolateral wall (02/2000) History of pulmonary embolism History of DVT (deep vein thrombosis) Paroxysmal atrial fibrillation Atherosclerotic heart disease of [place] coronary artery without angina pectoris Ovarian cancer ivc filter retreval Pericardial effusion Hypothyroid GERD (gastroesophageal reflux disease) Stress incontinence Pulmonary emboli Other assisted (current) drug therapy Ovarian cancer Dyspnea on exertion Wide-complex tachycardia Home Medications ?Medication ?Instructions ?Recorded ?Last Taken ?Type mirabegron 50 mg tablet,extended 50 mg PO DAILY 10/04/21 Unknown History release 24 hr aspirin 81 mg tablet,delayed 81 mg PO DAILY 08/11/22 10/02/24 History release (Adult Low Dose Aspirin) niacin 500 mg tablet,extended 500 mg PO BID #180 tabs 01/19/23 Unknown Rx release 24 hr levothyroxine 125 mcg tablet 125 mcg PO DAILY 02/01/23 Unknown History sucralfate 1 gram tablet 1 g PO QACHS 02/01/23 Unknown History nitroglycerin 0.4 mg sublingual 0.4 mg sublingual Q5M PRN Chest 03/15/23 Unknown Rx tablet Pain #25 tabs calcium carbonate (Calcium 600) 600 mg PO DAILY 04/13/23 Unknown History acetaminophen 500 mg capsule 500 mg PO Q6H PRN fever or pain 08/22/23 Unknown History albuterol sulfate 90 mcg/actuation 2 puff inhalation Q6H PRN 08/22/23 Unknown History aerosol inhaler shortness of breath or wheezing oxybutynin chloride 10 mg 10 mg PO QDAY 08/22/23 Unknown History tablet,extended release 24 hr cholecalciferol (vitamin D3) 1,250 1,250 mcg PO QWEEK 03/24/24 Unknown History mcg (50,000 unit) capsule spironolactone 25 mg tablet 25 mg PO QDAY #30 tabs 04/22/24 Unknown Rx amlodipine 2.5 mg tablet 2.5 mg PO QDAY #90 tabs 09/09/24 Unknown Rx apixaban 5 mg tablet (Eliquis) 5 mg PO BID 10/02/24 09/29/24 History amiodarone 200 mg tablet 200 mg PO BID 02/08/25 Unknown History metoprolol tartrate 25 mg tablet 25 mg PO BID 02/08/25 Unknown History potassium chloride 20 mEq 20 meq PO DAILY nausea 02/08/25 Unknown History tablet,extended release(part/cryst) ramipril 1.25 mg capsule 1.25 mg PO DAILY 02/08/25 Unknown History rosuvastatin 40 mg tablet 40 mg PO DAILY 02/08/25 Unknown History Allergy/AdvReac Type Severity Reaction Status Date / Time poison niya extract Allergy Itching Verified 02/08/25 17:51 poison oak extract Allergy Itching Verified 02/08/25 17:51 streptokinase (Streptokinase) AdvReac Severe Hives Verified 02/08/25 17:51 Family History Brother Hypertension Cancer Mother CVA (cerebral vascular accident) Hypertension Other Anticoagulant long-term use Atherosclerotic heart disease of [place] coronary artery without angina pectoris Atrial fibrillation H/O coronary artery bypass surgery History of acute myocardial infarction of anterolateral wall Lightheadedness Paroxysmal atrial fibrillation Stented coronary artery Surgical History Stented coronary artery (10/18/07) H/O coronary artery bypass surgery (~02/2000) History of back surgery Hx of appendectomy History of hysterectomy History of thyroidectomy Social History Smoking Status: Former smoker how long ago did patient quit smokin years ago alcohol intake: current alcohol intake frequency: holidays/special occasions only Alcohol type: wine substance use type: does not use caffeine: No what type of physical activity do you participate in: none seatbelt use: always ROS ROS ED ROS Narrative Generalized weakness. Falls. Denies recent illness. Constitutional Constitutional ED: Denies chills or fever(s) Eyes Eyes: Denies blurry vision ENT ENT ED: Denies ear pain Cardiovascular Cardiovascular: Denies chest pain Respiratory/Chest Respiratory/Chest: Denies cough or dyspnea Gastrointestinal Gastrointestinal: Denies abdominal pain Genitourinary Genitourinary ED: Denies dysuria or hematuria Musculoskeletal Musculoskeletal: Denies arthralgias or back pain Integumentary Denies abscess or Abrasions Neurologic Neurologic: Denies headache(s) Psychiatric Psychiatric: Denies anxiety or depression Endocrine Endocrinology: Denies cold intolerance Hematologic/Lymphatic Hematologic/Lymphatic: Reports none Allergic/Immunologic Allergic/Immunologic ED: Denies mouth swelling, tongue swelling or urticaria EXAM Physical Exam Narrative Exam Narrative: 84-year-old female sitting upright in bed. at bedside. Vital signs stable except blood pressure 95/67. She does not look septic toxic. She is in no acute distress. She is tolerating it well. H EENT exam pupils round react light. Moist mucous membranes. Lungs clear to auscultation bilaterally. Heart A-fib rate in the 80s. Chest wall ribs nontender. Abdomen soft nontender. Nondistended no peritoneal signs. No tenderness. Moving all 4 extremities. Mild bruising minimal swelling left knee. Recent fall and injury to the knee. Able to do flexion extension. Extensor mechanism intact. Both upper extremities right lower extremity nontender. Normal dorsi plantarflexion. 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 Neurologically she is awake alert. Answering questions following commands. No focal motor deficits. Const Vital Signs: 02/08/25 17:50 02/08/25 18:55 02/08/25 19:50 Temperature 97.8 F Temperature Source Oral Pulse Rate 86 79 Respiratory Rate 16 16 Respiratory Effort Normal Respiratory Pattern Normal Blood Pressure 95/67 Blood Pressure Mean 76 Pulse Ox 98 100 Oxygen Delivery Method Room Air Room Air Positive well nourished and well developed; Negative for obese, cachectic, contractures or unkempt General Appearance ED: well developed and NAD; Negative for unkempt, cachectic, contractures, cyanotic, diaphoretic or pallor Nutritional Appearance: Negative for cachectic or obese HEENT Reports moist mucous membranes Negative for trauma or tenderness Eyes PERRL and EOMs intact bilaterally Neck no lymphadenopathy, supple and no JVD Chest Wall inspection of chest normal and palpation of chest normal Resp normal respiratory effort and clear to auscultation bilaterally Cardio S1 normal heart sound, S2 normal heart sound and no murmurs; Negative for regular rate or regular rhythm GI normal to inspection, nondistended, normoactive bowel sounds, non-tender, non-distended and no masses Inspection: Negative for abdominal distention Auscultation: normoactive bowel sounds Palpation: soft; Negative for tender, guarding, splenomegaly, mass or rebound tenderness present Back/Spine no CVA tenderness General Back: Negative for CVA tenderness or other Cervical Spine: Negative for cervical spine tenderness Thoracic Spine / Upper Back: Negative for thoracic spinal tenderness or paraspinal muscle tenderness Lumbar Spine / Lower Back: Negative for lumbar spinal tenderness Extremity Negative for normal to inspection Extremity Narrative: Mild tenderness to left knee. Bruising. Recent fall. Normal flexion extension. No significant effusion. General Extremety ED: Yes tenderness Neuro oriented x3 and CN's II-XII intact bilaterally Sensorium / Orientation: alert Motor Exam: strength 5/5 throughout Psych Appearance: Negative for unkempt Skin no rashes or lesions noted, no wounds and skin turgor normal Skin Narrative: Left knee abrasion contusion. General Skin Exam: elasticity normal; Negative for jaundice or pallor Trauma: abrasion MDM MDM MDM Narrative Medical decision making narrative: 84-year-old female hypotensive history of A-fib on Eliquis. Has had multiple recent falls my guess is she is getting lightheaded from her hypotension. Differential would include anemia, dehydration, A-fib which she has a known history of, infectious etiology versus other. Screening labs will be obtained. Along with x-ray of her knee. Repeat exam around 8:24 PM patient was able to walk but had to sit down because she got weak. I think given her hypotension, chronic A-fib flutter, acute kidney injury and dehydration she warrants admission. I am giving her IV fluids. I did review most recent echo in October of this year showed an EF of 35 to 40%. I have the hospitalist on page for admission. On repeat exam patient is resting comfortably in bed around 8:30 PM. I discussed all this with the family and are comfortable with the plan. History & Record Review Discussion w/independent historian: Patient and Family Additional record(s) reviewed:: Prior inpatient record, Prior outpatient record, Prior ED visit and Prior labs Lab Data Attestation: I reviewed the patient's lab results. Lab results narrative: CBC shows a white can 8.4. H&H 12 and 39. Platelets 256. Electrolytes showed hyponatremia sodium 130. Anion gap 15. BUN and creatinine of 36 and 2.5. Patient's creatinine is significantly higher than recent labs. Glucose 135. Calcium is elevated 11.4. Liver enzymes are mildly elevated. Troponin 44. Chest x-ray chronic changes. Labs: Laboratory Results - last 24 hr 02/08/25 02/08/25 18:55 19:40 WBC 8.4 RBC 4.41 Hgb 12.3 Hct 39.5 MCV 89.6 MCH 27.9 MCHC 31.1 L RDW Std Deviation 46.4 H RDW Coeff of [place] 14.1 Plt Count 256 MPV 11.4 Immature Gran % (Auto) 1.000 H Neut % (Auto) 66.5 Lymph % (Auto) 18.4 L [place] % (Auto) 12.1 H Eos % (Auto) 1.3 Baso % (Auto) 0.7 Absolute Neuts (auto) 5.6 Absolute Lymphs (auto) 1.55 Nucleated RBC % 0 Sodium 130 L Potassium 4.5 Chloride 98 Carbon Dioxide 16.9 L Anion Gap 15 BUN 36 H Creatinine 2.52 H Estim Creat Clear Calc 15.92 L Est GFR (MDRD) Non-Af 18 L BUN/Creatinine Ratio 14.2 Glucose 135 H Lactic Acid 1.6 Calcium 11.4 H Total Bilirubin 0.51 AST 50 H ALT 55 H Alkaline Phosphatase 55 Troponin T High Sens 44 H D Total Protein 6.3 Albumin 3.7 Globulin 2.6 Albumin/Globulin Ratio 1.4 Urine Color Yellow Urine Clarity Turbid Urine pH 6.0 Ur Specific [place] 1.015 Urine Protein 100 H Urine Glucose (UA) Normal Urine Ketones Negative Urine Occult Blood 150 H Urine Nitrite Negative Urine Bilirubin Negative Urine Urobilinogen Normal Ur Leukocyte Esterase 500 H Radiography Chest X-Ray - ED: 2 View, Read by ED Physician, Heart, Lungs, Mediastinum, Bony Structures, No Acute Disease and Chronic Changes Diagnostic Testing: Clinical Impression(s) from Imaging Studies Chest X-Ray 02/08/25 19:15 IMPRESSION: NO ACUTE FINDINGS. Reading Location: [facility] Knee X-Ray 02/08/25 19:15 IMPRESSION: DEGENERATIVE OSTEOARTHROSIS. NO ACUTE FINDINGS. Reading Location: [facility] Chest x-ray, 2 views, AP and lateral, interpreted by myself shows normal cardiac silhouette. Mediastinum. No pneumonia. No effusions. Prior sternotomy with sternal wires. Left knee x-ray, 4 views, interpreted by myself and the radiologist. Shows chronic changes. No acute fracture. No dislocation. Rhythm Strip Rhythm Strip: Atrial flutter Rate: 83 Ectopy: None EKG Initial EKG: Attestation: I personally reviewed and interpreted this EKG as follows: Interpretation: Atrial Flutter Comments: Atrial flutter rate of 83. Discharge Plan Dx/Rx/DC Orders Clinical Impression: Acute hypotension, Hx of coronary artery bypass graft, Chronic anticoagulation, Generalized weakness, Acute dehydration, Acute kidney injury, Atrial flutter, chronic, Acute hyponatremia, History of aortic stenosis Disposition Disposition: [facility]
--- OUTSIDE RECORDS SUMMARY | 2025-02-08 18:36 | XMS RPT_ITS | CCD ---
Author Organization [facility]iniSyn[facility] Care Team Providers Care Non Destructive Evaluation Technician Name Role Phone Bernice Valero Unavailable Unavailable Nathaniel, RN, Yaima Ann Unavailable Unavailabl e Bernice Valero Unavailable Unavailable Nathaniel RN, Yaima Ann Unavailable Unavailabl e Antonia CODY, Shila Cline Unavailable [phone] Renate Issa Unavailable Unavailable Renate Issa Unavailable Unavailable Samantha Reyes MD Primary Care Provider [phone] Dr. Samantha Reyes Primary Care Provider [phone] Dr. Samantha Reyes Referring Provider [phone] Dr. Keegan German Attending Provider Bryant NETWORK OPERATIONS ANALYST, NETWORK OPERATIONS ANALYST-C Doe Attending Provider Dr. Samantha Reyes Primary Care Provider [phone] Dr. Samantha Reyes Referring Provider [phone] Dr. Reed Waite Attending Provider [phone] Samantha Reyes MD Primary Care Provider Bryant NETWORK OPERATIONS ANALYST, NETWORK OPERATIONS ANALYST-C Doe Referring Provider Bryant NETWORK OPERATIONS ANALYST, NETWORK OPERATIONS ANALYST-C Doe Other Provider [phone] Dr. Jesus Snyder Attending Provider Dr. Samantha Reyes Primary Care Provider [phone] Dr. Samantha Reyes Referring Provider [phone] Bryant LONGORIA, NETWORK OPERATIONS ANALYST-C Doe Attending Provider Samantha Reyes MD Primary Care Provider [phone] Dr. Samantha Reyes Primary Care Provider [phone] Dr. Samantha Reyes Attending Provider [phone] Dr. Samantha Reyes Primary Care Provider Dr. Samantha Reyes Referring Provider Bryant NETWORK OPERATIONS ANALYST, NETWORK OPERATIONS ANALYST-C Doe Attending Provider Bryant NETWORK OPERATIONS ANALYST, NETWORK OPERATIONS ANALYST-C Doe Referring Provider Bryant NETWORK OPERATIONS ANALYST, NETWORK OPERATIONS ANALYST-C Doe Other Provider Dr. Jesus Snyder Attending Provider Dr. Samantha Reyes Attending Provider Samantha Reyes MD Primary Care Provider Dr. Samantha Reyes Primary Care Provider Dr. Samantha Reyes Referring Provider Bryant NETWORK OPERATIONS ANALYST, NETWORK OPERATIONS ANALYST-C Doe Attending Provider Dr. Samantha Reyes Primary Care Provider Dr. Samantha Reyes Attending Provider [phone] Dr. Samantha Reyes Referring Provider Bryant NETWORK OPERATIONS ANALYST, NETWORK OPERATIONS ANALYST-C Doe Attending Provider Dr. Samantha Reyes Primary Care Provider Dr. Samantha Reyes Referring Provider Bryant NETWORK OPERATIONS ANALYST, NETWORK OPERATIONS ANALYST-C Doe Attending Provider Dr. Keegan German Attending Provider Dr. Reed Waite Attending Provider Dr. Reed Waite Referring Provider Dr. Reed Waite Other Provider Dr. Santiago Peña Attending Provider Nancy Leblanc Attending Provider Unavailable Dr. Samantha Reyes Primary Care Provider Dr. Samantha Reyes Referring Provider Bryant LONG[place], NETWORK OPERATIONS ANALYST-C Doe Attending Provider Dr. Keegan German Attending Provider Dr. Reed Waite Attending Provider Dr. Reed Waite Referring Provider Dr. Reed Waite Other Provider Dr. Santiago Peña Attending Provider Nancy Leblanc Attending Provider Unavailable Dr. Samantha Reyes Primary Care Provider Dr. Samantha Reyes Referring Provider Gumaro, Dr. Pennington Attending Provider Dr. Samantha Reyes Primary Care Provider Dr. Samantha Reyes Referring Provider Gumaro, Dr. Pennington Attending Provider Samantha Reyes MD Primary Care Provider Tannhoasha CARTON CATCHER.COMMUNICATION SIGNALS INTELLIGENCE, Faby Unavailable Scott CARTON CATCHER.COMMUNICATION SIGNALS INTELLIGENCE, Charles Unavailable Dr. Samantha Reyes MD Primary Care Provider [phone] Amy ESCALANTE, Dr. Bansal Referring Provider Gumaro ESCALANTE, Dr. Pennington Attending Provider Gumaro ESCALANTE, Dr. Pennington Referring Provider Tannho CARTON CATCHER.COMMUNICATION SIGNALS INTELLIGENCE, Faby Unavailable Samantha Reyes Primary Care Provider Feng ESCALANTE, Dr. Kellogg Attending Provider Dr. Valdez Toney MD Emergency Provider ORASANU, MAGGIE Attending Provider ORASANU, MAGGIE Referring Provider YUDY, MAGGIE Attending Unavailable SAMANTHA REYES Primary Care Unavailable KRYS CEDILLO Referring Unavailable SAMANTHA REYES Primary Care Unavailable SAMANTHA REYES Primary Care Unavailable BARBARA, RICHIE Attending Unavailable BARBARA, RICHIE Admitting Unavailable SAMANTHA REYES Primary Care Unavailable SAMANTHA DAVID Referring Unavailable OH AGUIRRE Attending Unavailable ELDERBROCK, SAMANTHA Primary Care Unavailable ORASANU, MAGGIE Referring Unavailable JACQUESOH Referring Unavailable ELDERBROCK, SAMANTHA Primary Care Unavailable ORASANU, MAGGIE Attending Unavailable ELDERBROCK, SAMANTHA Primary Care Unavailable Unavailable Primary Care Provider Unavailabl e Gumaro, Gorge Attending Unavailable Gumaro, Gorge Referring Unavailable Elderbrock, Samantha Primary Care Unavailable Bryant NETWORK OPERATIONS ANALYST, Doe Referring Unavailable Bryant NETWORK OPERATIONS ANALYST, Doe Attending Unavailable Elderbrock, Samantha Primary Care Unavailable Gumaro, Gorge Attending Unavailable Elderbrock, Samantha Primary Care Unavailable Gumaro, Gorge Attending Unavailable Elderbrock, Samantha Referring Unavailable Elderbrock, Samantha Primary Care Unavailable Gumaro, Gorge Referring Unavailable Gavin Story Attending Unavailable Elderbrock, Samantha Primary Care Unavailable Bryant NETWORK OPERATIONS ANALYST, Doe Attending Unavailable Elderbrock, Samantha Primary Care Unavailable Bryant NETWORK OPERATIONS ANALYST, Doe Attending Unavailable Elderbrock, Samantha Primary Care Unavailable Gumaro, Gorge Attending Unavailable Elderbrock, Samantha Referring Unavailable Elderbrock, Samantha Primary Care Unavailable Gumaro, Gorge Attending Unavailable Elderbrock, Samantha Primary Care Unavailable Elderbrock, Samantha Referring Unavailable Gumaro, Gorge Attending Unavailable Elderbrock, Samantha Primary Care Unavailable Gumaro, Gorge Attending Unavailable Gumaro, Gorge Referring Unavailable Elderbrock, Samantha Primary Care Unavailable Gumaro, Gorge Attending Unavailable Gumaro, Gorge Referring Unavailable Elderbrock, Samantha Primary Care Unavailable Valdez Toney Attending Unavailable Elderbrock, Samantha Primary Care Unavailable Gumaro, Gorge Attending Unavailable Gumaro, Gorge Referring Unavailable Elderbrock, Samantha Primary Care Unavailable Elderbrock, Samantha Primary Care Unavailable Shila Biggs Referring Unavail able Shila Biggs Attending Unavail able JEAN MARIE, MATTHIEU Referring Unavailable JEAN MARIE, MATTHIEU Attending Unavailable Elderbrock, Samantha Primary Care Unavailable Gumaro, Gorge Attending Unavailable Gumaro, Gorge Referring Unavailable Elderbrock, Samantha Primary Care Unavailable ELDERCUCO SAMANTHA D Referring Unavailable ELDERBROCK, SAMANTHA D Primary Care Unavailable ELDERSAMANTHA NORWOOD Attending Unavailable ELDERSAMANTHA NORWOOD Primary Care Unavailable SAMANTHA REYES Referring Unavailable ELDERSAMANTHA NORWOOD Primary Care Unavailable SAMANTHA REYES Attending Unavailable SAMANTHA REYES Primary Care Unavailable SELF Referring Unavailable ELDERSAMANTHA NORWOOD Primary Care Unavailable Samantha Reyes MD Primary Care Provider DAY, DAVIDA WARREN Admitting Unavailable URADU, MIRYAM ALVAREZ Attending Unavailable SAMANTHA REYES Primary Care Unavailable DAY, DAVIDA WARREN Referring Unavailable DAY, DAVIDA WARREN Attending Unavailable SYSTEM, PROVIDER NOT IN Referring Unavaila ble SYSTEM, PROVIDER NOT IN Admitting Unavaila ble SAMANTHA REYES Primary Care Unavailable INES JAVED Attending Unavailable SAMANTHA REYES Primary Care Unavailable URADU, MIRYAM ALVAREZ Referring Unavailable URADU, MIRYAM ALVAREZ Attending Unavailable URADU, MIRYAM UGOCHI Admitting Unavailable SAMANTHA REYES Primary Care Unavailable URADU, MIRYAM ALVAREZ Attending Unavailable Allergies Allergy Classification Reported Allergen(s) Allergy Type Date of Onset Reaction(s) Facility (20 sources) streptokinase; Translations: [streptokinase] drug allergy 8 [facility] Work Phone: (20 sources) POISON ARACELI EXTRACT; Translations: [POISON ARACELI] Drug Allergy 5 Itching [facility] Work Phone: (20 sources) STREPTOKINESIS [Other] Propensity to adverse reactions 5 [facility] (20 sources) poison oak extract; Translations: [poison oak extract] Allergy to substance 2 Itching [facility] (3 sources) poison araceli extract; Translations: [POISON ARACELI EXTRACT] Drug allergy (disorder) 5 [facility] [place] [facility] Medications Current Medications Medication Drug Class(es) Dates Sig (Normalized) Sig (Original) acetaminophen 500 mg oral capsule (20 sources) Start: 2023 take 1 capsule by mouth every six hours as needed for pain Acetaminophen 500 mg capsule Active 500 mg PO EVERY 6 HOURS as needed for fever or pain 2023 12:00am Start: 03-20-2005 TYLENOL PM 25 MG-500 MG TAB Take two(2) at bedtime 0 0 03/20/2005 Active take 1 tablet by jesica th every four hours as needed for pain acetaminophen (TYLENOL) 500 MG tablet Take 1 (one) tablet (500 mg total) by mouth every 4 (four) hours as needed for pain . Active Comment on above: Take two(2) at bedti ga [id number] 200 actuat albuterol 0.09 mg/actuat metered dose inhaler (20 sources) beta2-Adrenergic Agonist Start: 2023 Albuterol Sulfate 90 mcg/actuation HFA aerosol inhaler Active 2 NMA INHALATION EVERY 6 HOURS as needed for shortness of breath or wheezing 2023 12:00am Start: 06-25-2020 take 2 puff(s) by in halation every six hours as needed albuterol HFA (PROAIR HFA) 90 mcg/actuation inhaler Inhale 2 Puffs as instructed every 6 hours as needed. 6.7 g 5 06/25/2020 Active Start: 11-09-2015 take 1 puff(s) by in halation every six hours Albuterol Sulfate Active 2 PUFF INHALATION EVERY 6 HOURS November 09, 2015 12:00am Start: 04-05-2015 take 2 puff(s) by in halation twice daily PROAIR HFA 108 (90 Base) MCG/ACT AERS Two puffs inhalation twice daily ALBUTEROL SULFATE [id number] Gaurang Gorman MD Start: 04-05-2015 take 2 puff(s) by in halation twice daily PROAIR HFA 108 (90 Base) MCG/ACT AERS Two puffs inhalation twice daily ALBUTEROL SULFATE [id number] Gaurang Gorman MD Comment on above: Inhale 2 Puffs as in structed every 6 hours as needed. amiodarone hydrochloride 200 mg oral tablet (20 sources) Antiarrhythmic Start: 11-12-19 End: 05-10-20 take 1 tablet by mouth twice daily amiodarone (Pacerone) 200 MG tablet Take 1 tablet (200 mg) by mouth 2 times daily. 180 tablet 3 11/11/2024 05/10/2025 Active amLODIPine 2.5 mg oral tablet (3 sources) Dihydropyridine Calcium Channel Chan Start: 09-10-19 take 1 tablet by mouth once daily Amlodipine 2.5 mg tablet Active 2.5 mg PO daily September 09, 2024 12:00am apixaban 5 mg oral tablet (20 sources) Factor Xa Inhibitor Start: 05-15-20 End: 10-03-19 take 1 tablet by mouth twice daily apixaban (ELIQUIS) 5 mg tab(s) Take 5 mg by mouth twice daily. 05/15/2022 Active Comment on above: Take 5 mg by mouth t wice daily. aspirin 81 mg delayed release oral tablet (20 sources) Nonsteroidal Anti-inflammatory Drug Start: 09-16-19 11 Aspirin (Adult Low Dose Aspirin) 81 mg tablet,delayed release (DR/EC) Active 81 mg PO DAILY August 11, 2022 12:00am Start: 09-15-2010 take 1 tablet by jesica th once daily ECOTRIN LOW STRENGTH 81 MG TBEC One tablet by mouth daily ASPIRIN [id number] Michelle Hough Start: 03-20-2005 ASPIRIN 81 MG TAB Take one(1) tablet daily. 0 0 03/20/2005 Active Comment on above: Take one(1) tablet d dina. calcium carbonate 1500 mg oral tablet (20 sources) Start: 04-13-2023 take 1 tablet by mouth once daily Calcium Carbonate (Calcium 600) 600 mg calcium (1,500 mg) tablet Active 600 mg PO DAILY April 13, 2023 1:00am Start: 10-06-2020 take 500 mg by mouth once kemal y Calcium Carbonate Active 500 MG PO DAILY October 06, 2020 12:00am Start: 01-02-2019 End: 10-06-2020 take 1 tablet by mouth once daily Calcium Carbonate 600 MG tablet Discontinued 600 mg PO DAILY January 02, 2019 12:00am October 06, 2020 1:48pm Start: 01-28-2014 End: 08-26-2018 take 1 tablet by mouth twice daily Calcium Carbonate 500 MG tablet Discontinued 500 mg PO TWICE A DAY January 28, 2014 12:00am August 26, 2018 2:12pm Start: 09-15-2010 take 1 tablet by jesica th once daily CALCIUM 500 MG TABS One tablet by mouth daily CALCIUM [id number] Michelle Hough take 600 mg by mouth once daily Calcium Carbonate (CALCIUM 600 PO) Take 600 mg by mouth daily. Active carvedilol 6.25 mg oral tablet (5 sources) alpha-Adrenergic Chan, beta-Adrenergic Chan Start: 10-02-2024 End: 11-11-2024 take 1 tablet by mouth twice daily at mealtime carvedilol (COREG) 6.25 mg tablet Take 6.25 mg by mouth two times a day with meals. Prescribed by Cardio at [facility] 10/02/2024 Active cholecalciferol 1.25 mg oral capsule (20 sources) Vitamin D Start: 03-24-2024 take 1 capsule by mouth every week Cholecalciferol (Vitamin D3) 1,250 mcg (50,000 unit) capsule Active 1250 ug PO EVERY WEEK March 24, 2024 1:31pm Start: 02-01-2023 End: 03-24-2024 take 1 capsule by mouth every month Cholecalciferol (Vitamin D3) 1,250 mcg (50,000 unit) capsule Discontinued 1250 ug PO EVERY MONTH February 01, 2023 12:00am March 24, 2024 1:34pm Start: 08-26-2018 End: 03-20-2024 take 1 capsule by mouth every week cholecalciferol, Vitamin D3, (VITAMIN D3) 1,250 mcg (50,000 unit) cap capsule Take 1 capsule by mouth one time a week. 12 capsule 3 03/20/2024 Active Start: 01-28-2014 End: 02-06-2018 take 1 capsule by mouth every week Cholecalciferol (Vitamin D3) 50,000 UNIT capsule Discontinued 18889 U PO EVERY WEEK January 28, 2014 12:00am February 06, 2018 2:48pm Comment on above: Take 1 capsule by mo ut one time a week. TAKE 1 CAPSULE BY MO UT ONCE A WEEK cholecalciferol, vitamin D3, (VITAMIN D3 ORAL) (5 sources) cholecalciferol, vitamin D3, (VITAMIN D3 ORAL) Take by mouth . Active ciprofloxacin 500 mg oral tablet (1 source) Quinolone Antimicrobial Start: 05-19-20 End: 05-24-20 take 1 tablet by mouth twice daily ciprofloxacin HCl (CIPRO) 500 mg tablet Take 1 tablet by mouth two times a day for 5 days. 10 tablet 05/19/2024 05/24/2024 Active furosemide 40 mg oral tablet (20 sources) Loop Diuretic Start: 08-22-19 End: 09-10-19 Furosemide (Lasix) 40 mg tablet Discontinued 20 mg PO TWICE A DAY 2023 3:02pm September 09, 2024 2:14pm Start: 08-23-2022 End: 02-01-2023 take 0.5 tablet by mouth once daily Furosemide (Lasix) 40 mg tablet Discontinued 40 mg PO .COMPLEX August 23, 2022 11:59am February 01, 2023 1:41pm 40 mg orally 1/2 tablet (20mg) every day; Start: 08-23-2022 End: 08-23-2022 Furosemide (Lasix) 40 mg tab let Discontinued 20 mg PO DAILY August 23, 2022 10:01am August 23, 2022 11:59am Start: 08-11-2022 End: 08-11-2022 take 1 tablet by mouth twice daily Furosemide (Lasix) 40 mg tablet Discontinued 40 mg PO TWICE A DAY August 11, 2022 10:08am August 11, 2022 2:15pm Start: 07-18-2022 End: 07-25-2022 take 1 tablet by mouth twice daily Furosemide (Lasix) 40 mg tablet Discontinued 40 mg PO TWICE A DAY 60 July 18, 2022 12:52pm July 25, 2022 3:32pm Start: 10-06-2021 End: 04-03-2024 take 1 tablet by mouth once daily furosemide (LASIX) 40 mg tablet Take 1 tablet by mouth once daily. 90 tablet 3 04/03/2024 Active Comment on above: Take 40 mg by mouth once daily. [facility]. hydroCHLOROthiazide 12.5 mg oral capsule (20 sources) Thiazide Diuretic Start: 023 End: take 1 tablet by mouth once daily Hydrochlorothiazide 25 mg tablet Discontinued 25 mg PO DAILY March 15, 2023 12:29pm 2023 2:34pm Start: 01-28-2014 End: 04-03-2024 take 1 capsule by mouth once daily hydroCHLOROthiazide (MICROZIDE) 12.5 mg capsule Indications: Essential hypertension, benign Take 1 capsule by mouth once daily. 90 capsule 3 04/03/2024 Active Start: 04-04-2013 End: 11-11-2024 take 1 tablet by mouth once daily Hydrochlorothiazide 12.5 mg tablet Discontinued 12.5 mg PO DAILY April 03, 2024 9:45am April 22, 2024 12:24pm Comment on above: Take 1 capsule by mo [facility] once daily. lansoprazole 30 mg delayed release oral capsule (20 sources) Proton Pump Inhibitor Start: 2 End: 4 take 1 capsule by mouth once daily before breakfast lansoprazole (PREVACID) 30 mg capsule Take 1 capsule by mouth daily before breakfast. 1/2 hr before meal. 30 capsule 11 04/03/2024 Active Start: 07-03-2011 End: 02-19-2012 take 1 tablet by mouth once daily LANSOPRAZOLE 30 MG TBDP One tablet by mouth daily LANSOPRAZOLE [id number] Derrick Ang MD Start: 07-03-2011 End: 04-05-2015 take 1 tablet by mouth once daily LANSOPRAZOLE 30 MG TBDP One tablet by mouth daily LANSOPRAZOLE [id number] Derrick Ang MD Comment on above: Take 1 capsule by mo [facility] daily before breakfast. 1/2 hr before meal. metoprolol tartrate 25 mg oral tablet (5 sources) beta-Adrenergic Chan Start: 5 End: 6 take 1 tablet by mouth twice daily metoprolol tartrate (LOPRESSOR) 25 MG tablet Take 1 (one) tablet (25 mg total) by mouth 2 (two) times a day . 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 30 tablet 5 08/21/2022 Active Comment on above: Take [facility]. 24 hr niacin 500 mg extended release oral tablet (20 sources) Nicotinic Acid Start: 0 End: 4 take 1 tablet by mouth twice daily niacin ER (NIASPAN) 500 mg tablet Take 1 tablet by mouth two times a day. 60 tablet 11 04/03/2024 Active Start: 11-04-2018 End: 02-09-2022 take 1 tablet by mouth at bedtime Niacin 500 MG tablet Discontinued 500 mg PO AT BEDTIME July 14, 2019 3:14am February 09, 2022 9:00am Start: 04-03-2013 End: 11-04-2018 take 1 tablet by mouth twice daily Niacin 500 mg tablet extended release 24 hr Discontinued 500 mg PO TWICE A DAY 60 October 19, 2017 1:05pm November 04, 2018 1:29pm Start: 09-15-2010 take 1 tablet by jesica th twice daily NIASPAN 500 MG CR-TABS One tablet by mouth twice daily NIACIN (ANTIHYPERLIPIDEMIC) [id number] Shila Michael PA-C Start: 09-15-2010 take 1 tablet by jesica th twice daily NIASPAN 500 MG CR-TABS One tablet by mouth twice daily NIACIN (ANTIHYPERLIPIDEMIC) [id number] Shila Michael PA-C Comment on above: Take 1 tablet by jesica th twice daily. Take 1 tablet by jesica th two times a day. nitrofurantoin, macrocrystals 25 mg / nitrofurantoin, monohydrate 75 mg oral capsule (4 sources) Nitrofuran Antibacterial Start: 02-10-20 End: 02-15-20 take 1 capsule by mouth twice daily nitrofurantoin monohydrate and macrocrystal (MACROBID) 100 mg capsule Indications: Urinary frequency Take 1 capsule by mouth twice daily for 5 days. 10 capsule 0 02/09/2023 02/14/2023 Active Start: 02-01-2022 End: 02-06-2022 take 1 capsule by mouth twice daily nitrofurantoin monohydrate and macrocrystal (MACROBID) 100 mg capsule Indications: Urinary frequency , Burning with urination Take 1 capsule by mouth twice daily for 5 days. 10 capsule 0 02/01/2022 02/06/2022 Active Comment on above: Take 1 capsule by mo [facility] twice daily for 5 days. nitroglycerin 0.4 mg sublingual tablet (20 sources) Nitrate Vasodilator Start: 8 End: 3 nitroglycerin(NITROQ UICK 0.4 MG SUBLINGUAL TAB) 0 10/11/2007 Active 24 hr oxybutynin chloride 10 mg extended release oral tablet (20 sources) Cholinergic Muscarinic Antagonist Start: 3 End: 3 take 1 tablet by mouth once daily Oxybutynin Chloride 10 mg tablet extended release 24hr Active 10 mg PO daily 2023 12:00am Comment on above: Take 1 tablet by jesica th once daily. pantoprazole 40 mg delayed release oral tablet (10 sources) Proton Pump Inhibitor Start: 2 take 40 mg by mouth once daily Pantoprazole Active 40 MG PO DAILY November 11, 2021 12:00am Start: 02-19-2012 take 1 tablet by jesica th once daily PANTOPRAZOLE SODIUM 40 MG TBEC One tablet by mouth daily PANTOPRAZOLE SODIUM [id number] Derrick Ang MD potassium chloride 20 meq extended release oral tablet (20 sources) Start: 10-11-2021 End: 03-20-2024 take 1 tablet by mouth once daily potassium chloride 20 mEq TbER Take 1 tablet by mouth once daily. 90 tablet 4 03/20/2024 Active take 1 tablet by mouth twice crystal ly potassium chloride SA (K-DUR,KLOR-CON) 20 MEQ tablet Take 1 (one) tablet (20 mEq total) by mouth 2 (two) times a day . Active potassium chlori de CR (Klor-Con M20) 20 MEQ ER tablet Take 20 mEq by mouth daily. Do not crush or chew. Active Comment on above: Take 1 tablet by jesica th once daily. ramipril 1.25 mg oral capsule (20 sources) Angiotensin Converting Enzyme Inhibitor Start: 12-02-2024 End: 12-02-2025 take 1 capsule by mouth once daily ramipril (Altace) 1.25 MG capsule Take 1 capsule (1.25 mg) by mouth daily. 90 capsule 3 12/02/2024 12/02/2025 Active Start: 10-11-2023 End: 09-09-2024 take 1 capsule by mouth once daily Ramipril 10 mg capsule Discontinued 10 mg PO daily May 29, 2024 10:41am September 09, 2024 2:34pm Start: 2023 End: 11-19-2025 ramipril (ALTACE) 5 mg garland juarez Indications: Essential hypertension, benign Take by mouth once daily. 10/14/2024 Active Start: 03-13-2022 End: 08-31-2023 take 1 capsule by mouth once daily Ramipril 10 mg capsule Discontinued 10 mg PO DAILY 90 March 15, 2023 12:29pm August 31, 2023 8:54am Start: 04-03-2013 End: 03-13-2022 take 20 mg by mouth once daily Ramipril Discontinued 2 0 MG PO DAILY 180 November 27, 2019 3:51pm March 13, 2022 8:31am Start: 09-15-2010 take 2 capsules by m out once daily ALTACE 10 MG CAPS Two capsules by mouth daily RAMIPRIL [id number] Shila Michael PA-C Start: 03-20-2005 End: 03-24-2024 take 2 capsules by mouth once daily Ramipril 10 mg capsule Discontinued 20 mg PO DAILY 180 August 31, 2023 8:52am March 24, 2024 1:55pm Comment on above: Take two (2) by mout h once daily. rosuvastatin calcium 40 mg oral tablet (20 sources) HMG-CoA Reductase Inhibitor Start: take 1 tablet by mouth twice daily Rosuvastatin 20 mg tablet Active 20 mg PO TWICE A DAY March 24, 2024 1:33pm Start: 2023 End: 2023 Rosuvastatin 40 mg tablet Di scontinued 20 mg PO AT BEDTIME 2023 3:01pm 2023 3:30pm Start: 2023 End: 03-24-2024 take 1 tablet by mouth once daily Rosuvastatin 20 mg tablet Discontinued 20 mg PO DAILY 2023 12:00am March 24, 2024 1:34pm Start: 09-15-2010 End: 04-03-2024 take 1 tablet by mouth once daily rosuvastatin (CRESTOR) 40 mg tablet Indications: Atherosclerosis of 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 coronary artery of 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 angina pectoris , Hyperlipidemia, unspecified hyperlipidemia type Take 1 tablet by mouth once daily. 30 tablet 11 04/03/2024 Active Comment on above: Take 1 tablet by jesica th once daily. spironolactone 25 mg oral tablet (20 sources) Aldosterone Antagonist Start: 04-22-20 spironolactone (ALDACTONE) 25 mg tablet once daily. 04/22/2024 Active sucralfate 1000 mg oral tablet (20 sources) Aluminum Complex Start: 02-02-20 take 1 tablet by mouth at bedtime Sucralfate 1 gram tablet Active 1 g PO before meals and at bedtime February 01, 2023 12:00am Start: 02-01-2023 take 1 g by mouth at bedtime S ucralfate Active 1 GM PO before meals and at bedtime January 31, 2023 11:00pm Start: 02-01-2023 take 1 g by mouth at bedtime S ucralfate Active 1 GM PO before meals and at bedtime February 01, 2023 12:00am Start: 01-16-2022 End: 04-03-2024 take 1 tablet by mouth at bedtime sucralfate (CARAFATE) 1 gram tablet Take 1 tablet by mouth before meals and at bedtime. 120 tablet 11 04/03/2024 Active Start: 08-17-2020 End: 04-22-2021 take 1 tablet by mouth at bedtime sucralfate (CARAFATE) 1 gram tablet Take 1 tablet by mouth before meals and at bedtime. 120 tablet 5 08/17/2020 04/22/2021 Discontinued Start: 11-08-2015 End: 07-06-2016 take 1 tablet by mouth four times daily CARAFATE 1 GM TABS One tablet by mouth four times daily SUCRALFATE [id number] Gaurang Gorman MD Start: 11-08-2015 take 1 tablet by jesica th four times daily CARAFATE 1 GM TABS One tablet by mouth four times daily SUCRALFATE [id number] Shila Michael PA-C Start: 09-07-2014 End: 07-06-2016 take 1 tablet by mouth four times daily CARAFATE 1 GM TABS One tablet by mouth four times daily SUCRALFATE [id number] Gaurang Gorman MD Start: 09-07-2014 take 1 tablet by jesica four times daily CARAFATE 1 GM TABS One tablet by mouth four times daily SUCRALFATE [id number] Gaurang Gorman MD Start: 01-28-2014 End: 03-13-2022 take 1 tablet by mouth three times daily Sucralfate 1 GM tablet Discontinued 1 g PO THREE TIMES A DAY January 28, 2014 12:00am March 13, 2022 8:31am take 1 tablet by jesica th once daily sucralfate (CARAFATE) 1 gram tablet Take 1 (one) tablet (1 g total) by mouth daily . Active Comment on above: Take 1 tablet by jesica th before meals and at bedtime. levothyroxine sodium 0.125 mg oral tablet (20 sources) l-Thyroxine Start: 08-11-2022 End: 02-01-2023 Levothyroxine 137 mcg tablet Discontinued 125 ug PO DAILY August 11, 2022 10:08am February 01, 2023 1:40pm Start: 08-11-2022 End: 02-01-2023 take 125 ug by mouth once daily Levothyroxine Disconti nued 125 MCG PO DAILY August 11, 2022 10:08am February 01, 2023 1:40pm Start: 05-15-2022 End: 08-11-2022 take 1 tablet by mouth once daily Levothyroxine 137 mc g tablet Discontinued 137 ug PO DAILY May 15, 2022 4:09pm August 11, 2022 10:10am Start: 03-13-2022 End: 05-15-2022 Levothyroxine 137 mcg tablet Discontinued 124 ug PO DAILY March 13, 2022 8:55am May 15, 2022 4:10pm Start: 03-13-2022 End: 05-15-2022 take 124 ug by mouth once daily Levothyroxine Disconti nued 124 MCG PO DAILY March 13, 2022 8:55am May 15, 2022 4:10pm Start: 02-13-2022 End: 04-03-2024 take 1 tablet by mouth once daily for thyroid dysfunction levothyroxine (LEVOXYL) 125 mcg tablet Take 1 tablet by mouth once daily. Take on empty stomach. For thyroid. 30 tablet 11 04/03/2024 Active Start: 02-09-2022 End: 03-13-2022 take 1 tablet by mouth once daily Levothyroxine 137 mc g tablet Discontinued 137 ug PO DAILY February 09, 2022 9:30am March 13, 2022 8:55am Start: 02-09-2022 End: 02-09-2022 Levothyroxine 137 mcg tablet Discontinued NMA PO February 09, 2022 12:00am February 09, 2022 9:30am Start: 02-09-2022 End: 02-09-2022 Levothyroxine Discontinued T AB PO February 09, 2022 12:00am February 09, 2022 9:30am Start: 06-22-2020 End: 02-13-2022 take 1 capsule by mouth once daily before breakfast levothyroxine 137 mcg cap Indications: Hypothyroidism, unspecified type Take 1 capsule by mouth daily before breakfast. 30 capsule 11 06/22/2020 07/01/2021 Discontinued Start: 07-07-2019 End: 02-09-2022 Levothyroxine 50 MCG tablet Discontinued 125 ug PO DAILY July 07, 2019 1:00am February 09, 2022 8:57am Start: 07-07-2019 End: 02-09-2022 take 125 ug by mouth once daily Levothyroxine Disconti nued 125 MCG PO DAILY July 07, 2019 1:00am February 09, 2022 8:57am Start: 05-19-2018 End: 03-31-2019 Levothyroxine 112 MCG tablet Discontinued 100 ug PO DAILY May 19, 2018 1:00am March 31, 2019 2:00pm Start: 05-19-2018 End: 03-31-2019 take 100 ug by mouth once daily Levothyroxine Disconti nued 100 MCG PO DAILY May 19, 2018 1:00am March 31, 2019 2:00pm Start: 04-03-2013 End: 07-19-2017 Levothyroxine 50 MCG tablet Discontinued 75 ug PO DAILY April 03, 2013 1:00am July 19, 2017 4:37pm Start: 04-03-2013 End: 07-19-2017 take 75 ug by mouth once daily Levothyroxine Discontin ued 75 MCG PO DAILY April 03, 2013 1:00am July 19, 2017 4:37pm Start: 09-15-2010 take 1 tablet by mouth once da maggie LEVOXYL 50 MCG TABS One tablet by mouth daily LEVOTHYROXINE SODIUM [id number] Michelle Hough Start: 09-15-2010 take 1 tablet by mouth once da maggie LEVOXYL 75 MCG TABS One tablet by mouth daily (0.075) LEVOTHYROXINE SODIUM [id number] Gaurang Gorman MD Start: 09-15-2010 take 1 tablet by mouth once da maggie LEVOXYL 50 MCG TABS One tablet by mouth daily LEVOTHYROXINE SODIUM [id number] Michelle Hough Comment on above: Take 1 capsule by [facility] daily before breakfast. Take 1 tablet by jesica once daily. Take on empty stomach. For thyroid. tiZANidine 4 mg oral tablet (12 sources) Central alpha-2 Adrenergic Agonist Start: 08-24-2023 take 1 tablet by mouth every eight hours as needed for muscle spasms tiZANidine (ZANAFLEX) 4 mg tablet Indications: Acute midline low back pain with bilateral sciatica Take 1 tablet by mouth every 8 hours as needed (muscle spasms). 30 tablet 1 08/24/2023 Active Completed/Discontinued Medications Medication Drug Class(es) Dates Sig (Normalized) Sig (Original) acetaminophen 325 mg / HYDROcodone bitartrate 5 mg oral tablet (20 sources) Opioid Agonist Start: 04-13-2017 End: 02-06-2018 Hydrocodone-Acetami nophen 1 TABLET tablet Discontinued 1 - 2 {tbl} PO EVERY 6 HOURS NEEDED as needed for Mild-moderate pain (scale 1-5) April 13, 2017 1:00am February 06, 2018 2:50pm Start: 04-13-2017 End: 02-06-2018 take 1 tablet by mouth every six hours as needed Hydrocodone-Acetaminophen Discontinued 1 - 2 TABLET PO EVERY 6 HOURS NEEDED April 13, 2017 1:00am February 06, 2018 2:50pm atenolol 50 mg oral tablet (20 sources) beta-Adrenergic Chan Start: 09-15-2010 End: 10-02-2024 take 1 tablet by mouth twice daily Atenolol 50 mg tablet Discontinued 50 mg PO TWICE A DAY 180 April 03, 2024 9:45am October 02, 2024 9:51am Start: 03-20-2005 ATENOLOL 50 MG TAB Take one(1) tablet two(2) times daily. 0 0 03/20/2005 Active Comment on above: Take one(1) tablet t wo(2) times daily. benzonatate 100 mg oral capsule (20 sources) Non-narcotic Antitussive Start: 3 End: 3 take 2 capsules by mouth every eight hours as needed benzonatate (TESSALON PERLES) 100 mg capsule Take 2 capsules by mouth three times daily as needed. 30 capsule 0 08/25/2022 04/10/2023 Discontinued Start: 09-07-2014 End: 04-05-2015 take 1 tablet by mouth three times daily as needed BENZONATATE 200 MG CAPS One tablet by mouth three times daily as needed BENZONATATE [id number] Gaurang Gorman MD Start: 10-13-2013 End: 09-07-2014 TESSALON PERLES 100 MG CAPS as needed BENZONATATE [id number] Gaurang Gorman MD Comment on above: Take 2 capsules by [facility] three times daily as needed. calcium (20 sources) Phosphate Binder, Calcium Start: 09-15-2010 take 1 tablet by mouth once daily CALCIUM 500 MG TABS One tablet by mouth daily CALCIUM [id number] Michelle Hough Start: 09-15-2010 take 1 tablet by jesica once daily CALCIUM 500 MG TABS One tablet by mouth daily CALCIUM [id number] Michelle Hough Start: 03-20-2005 CALCIUM 500 MG TAB Take one(1) tablet two(2) times daily. 0 0 03/20/2005 Active Comment on above: Take one(1) tablet t wo(2) times daily. cephalexin 500 mg oral capsule (20 sources) Cephalosporin Antibacterial Start: 4 End: 4 take 1 capsule by mouth twice daily cephALEXin (KEFLEX) 500 mg capsule Take 1 capsule by mouth two times a day for 7 days. 14 capsule 05/17/2024 05/19/2024 Discontinued Start: 02-21-2022 End: 02-28-2022 take 1 capsule by mouth twice daily cephALEXin (KEFLEX) 500 mg capsule Take 1 capsule by mouth twice daily for 7 days. 14 capsule 0 02/21/2022 02/28/2022 Active Start: 11-21-2021 End: 11-28-2021 take 1 capsule by mouth twice daily cephALEXin (KEFLEX) 500 mg capsule Indications: Acute cystitis with hematuria Take 1 capsule by mouth twice daily for 7 days. 14 capsule 0 11/21/2021 11/28/2021 Active Start: 09-09-2021 End: 09-16-2021 take 1 capsule by mouth twice daily cephALEXin (KEFLEX) 500 mg capsule Take 1 capsule by mouth twice daily for 7 days. 14 capsule 0 09/09/2021 09/16/2021 Active Start: 05-20-2018 End: 08-26-2018 take 1 capsule by mouth every six hours Cephalexin 500 MG capsule Discontinued 500 mg PO EVERY 6 HOURS May 20, 2018 1:00am August 26, 2018 2:12pm Comment on above: Take 1 capsule by [facility] twice daily for 7 days. cetirizine hydrochloride 10 mg oral tablet (7 sources) Histamine-1 Receptor Antagonist Start: 09-15-2010 ZYRTEC ALLERGY 10 MG TABS As needed CETIRIZINE HCL [id number] Michelle Hough clobetasol propionate 0.0005 mg/mg topical ointment (20 sources) Corticosteroid Start: 07-07-2021 End: 10-04-2021 Clobetasol 0.05 % ointment Discontinued 1 NMA TOPICAL TWICE A DAY as needed July 07, 2021 12:32pm October 04, 2021 11:01am Start: 10-13-2020 End: 10-04-2021 Clobetasol 0.05 % ointment D iscontinued 1 NMA TOPICAL TWICE A DAY October 13, 2020 12:00am July 07, 2021 12:32pm Start: 03-02-2020 End: 07-04-2021 clobetasol (TEMOVATE) 0.05 % ointment Use thin coat over affected area BID x 6 weeks then 2-3 times weekly for maintenance. 30 g 1 11/09/2020 07/04/2021 Discontinued Clobetasol Propionate/Emoll (Clobetasol Emollient 0.05% Crm) 15 GM Cream..G. (20 sources) Start: 07-07-2019 End: 10-13-2020 Clobetasol Propionate/Emoll (Clobetasol Emollient 0.05% Crm) 15 GM Cream..G. Discontinued 30 GM TP DAILY July 07, 2019 2:33pm October 13, 2020 2:26pm Start: 07-07-2019 End: 10-13-2020 apply 1 dose topically once daily as needed Clobetasol Propionate/Emoll (Clobetasol Emollient 0.05% Crm) 15 GM Cream..G. Discontinued 30 g TP DAILY as needed for Rash/Topical Irritation July 07, 2019 1:00am October 13, 2020 2:26pm Start: 07-07-2019 End: 10-13-2020 Clobetasol Propionate/Emoll (Clobetasol Emollient 0.05% Crm) 15 GM Cream..G. Discontinued 30 GM TP DAILY July 07, 2019 12:00am October 13, 2020 1:26pm Start: 07-07-2019 End: 10-13-2020 Clobetasol Propionate/Emoll (Clobetasol Emollient 0.05% Crm) 15 GM Cream..G. Discontinued 30 GM TP DAILY July 07, 2019 1:00am October 13, 2020 2:26pm 1 ml enoxaparin sodium 100 mg/ml prefilled syringe (20 sources) Low Molecular Weight Heparin Start: 07-16-2019 End: 07-23-2019 Enoxaparin 100 MG/ML syringe Discontinued 90 mg SC EVERY 12 HOURS 14 7 July 16, 2019 1:00am July 22, 2019 1:00am July 23, 2019 1:08am Start: 07-16-2019 End: 07-23-2019 Enoxaparin Discontinued 90 M G SC EVERY 12 HOURS 14 7 July 16, 2019 1:00am July 23, 2019 1:08am ergocalciferol 1.25 mg oral capsule (20 sources) Provitamin D2 Compound Start: 07-17-2017 End: 08-26-2018 Ergocalciferol (Vitamin D2) 50,000 unit capsule Discontinued 85937 U PO EVERY WEEK July 17, 2017 1:00am August 26, 2018 2:13pm Start: 09-07-2014 VITAMIN D (ERG OCALCIFEROL) 09180 UNIT CAPS one capsule weekly ERGOCALCIFEROL [id number] Gaurang Gorman MD Start: 09-07-2014 VITAMIN D (ERG OCALCIFEROL) 95341 UNIT CAPS one capsule weekly ERGOCALCIFEROL [id number] Gaurang Gorman MD Start: 09-07-2014 take 1 capsule by [facility] every week VITAMIN D (ERGOCALCIFEROL) 88848 UNIT CAPS one capsule by mouth weekly ERGOCALCIFEROL [id number] Gaurang Gorman MD Start: 09-07-2014 VITAMIN D (ERG OCALCIFEROL) 23582 UNIT CAPS one capsule weekly ERGOCALCIFEROL [id number] Gaurang Gorman MD Start: 09-07-2014 take 1 capsule by mo ut every week VITAMIN D (ERGOCALCIFEROL) 19213 UNIT CAPS one capsule by mouth weekly ERGOCALCIFEROL [id number] Gaurang Gorman MD estradiol 0.1 mg/ml vaginal cream (20 sources) Estrogen Start: 10-13-2020 End: 07-07-2021 Estradiol 0.01 % (0.1 mg/gram) cream Discontinued 1 NMA VAGINAL ONCE as needed October 13, 2020 12:00am July 07, 2021 12:32pm Start: 10-13-2020 End: 07-07-2021 Estradiol Discontinued 1 STEVEN FUL VAGINAL ONCE October 13, 2020 12:00am July 07, 2021 12:32pm Start: 07-07-2019 End: 10-13-2020 Estradiol Cream Discontinued 0.1 % TP NEEDED July 07, 2019 2:33pm October 13, 2020 2:25pm Start: 07-07-2019 End: 10-13-2020 Estradiol Cream Discontinued 0.1 % TP NEEDED as needed for Rash/Topical Irritation July 07, 2019 1:00am October 13, 2020 2:25pm Start: 07-07-2019 End: 10-13-2020 Estradiol Cream Discontinued 0.1 % TP NEEDED July 07, 2019 12:00am October 13, 2020 1:25pm Start: 07-07-2019 End: 10-13-2020 Estradiol Cream Discontinued 0.1 % TP NEEDED July 07, 2019 1:00am October 13, 2020 2:25pm Start: 05-01-2019 End: 12-30-2020 estradiol (ESTRACE) 0.01 % ( 0.1 mg/gram) vaginal cream Use 1 g vaginally once daily for 14 days, THEN 1 g two times a week. 42.5 g 2 05/01/2019 12/30/2020 Discontinued osmotic 24 hr NIFEdipine 60 mg extended release oral tablet (14 sources) Dihydropyridine Calcium Channel Chan Start: 09-15-2010 End: 03-04-2013 take 1 tablet by mouth once daily PROCARDIA XL 60 MG [id number] One tablet by mouth daily NIFEDIPINE [id number] Gaurang Gorman MD Start: 09-15-2010 take 1 tablet by jesica th once daily PROCARDIA XL 60 MG [id number] One tablet by mouth daily NIFEDIPINE [id number] Reed Waite MD Start: 09-15-2010 End: 03-04-2013 take 1 tablet by mouth once daily PROCARDIA XL 60 MG [id number] One tablet by mouth daily NIFEDIPINE [id number] Gaurang Gorman MD omega-3 acid ethyl esters (snf) 1000 mg oral capsule (20 sources) Start: 08-26-2018 End: 07-01-2019 Sterling-3 Acid Ethyl Esters 1 gram capsule Discontinued 1 NMA PO TWICE A DAY 60 December 18, 2018 9:04am July 01, 2019 6:35pm Start: 05-19-2018 End: 08-26-2018 Sterling-3 Acid Ethyl Esters 1 GM capsule Discontinued 2 NMA PO DAILY May 19, 2018 11:11am August 26, 2018 2:11pm Start: 05-19-2018 End: 08-26-2018 take 2 capsules by mouth once daily Sterling-3 Acid Ethyl Esters Discontinued 2 CAP PO DAILY May 19, 2018 11:11am August 26, 2018 2:11pm Start: 12-17-2017 End: 05-19-2018 Sterling-3 Acid Ethyl Esters 1 gram capsule Discontinued 1 NMA PO TWICE A DAY 60 December 17, 2017 4:51pm May 19, 2018 11:11am Start: 12-15-2011 take 1 tablet by jesica th twice daily LOVAZA 1 GM CAPS One tablet by mouth twice daily [id number] ETHYL ESTERS [id number] Shila Michael PA-C Start: 09-15-2010 take 1 tablet by jesica th twice daily LOVAZA CAPS ethyl esters 1000mg, One tablet by mouth twice daily [id number] ETHYL ESTERS CAPS [id number] Michelle Hough Start: 09-15-2010 take 1 tablet by jesica th twice daily LOVAZA CAPS ethyl esters 1000mg, One tablet by mouth twice daily [id number] ETHYL ESTERS CAPS [id number] Michelle Hough Start: 09-15-2010 take 1 tablet by jesica th twice daily LOVAZA CAPS ethyl esters 1000mg, One tablet by mouth twice daily [id number] ETHYL ESTERS CAPS [id number] Michelle Hough Start: 01-28-2010 End: 12-30-2020 take 1 capsule by mouth twice daily Sterling-3 Acid Ethyl Esters 1 GM capsule Discontinued 1 g PO TWICE A DAY January 28, 2014 12:00am December 17, 2017 4:52pm omeprazole 20 mg delayed release oral capsule (14 sources) Proton Pump Inhibitor End: 09-07-2014 take 1 tablet by mouth once daily OMEPRAZOLE 20 MG CPDR One tablet by mouth daily OMEPRAZOLE [id number] Gaurang Gorman MD sacubitril 24 mg / valsartan 26 mg oral tablet (4 sources) Angiotensin 2 Receptor Chan Start: 11-13-2024 End: 11-08-2025 take 1 tablet by mouth twice daily sacubitril-valsartan (Entresto) 24-26 MG tablet Take 1 tablet by mouth 2 times daily. Do not start before November 13, 2024. 180 tablet 3 11/13/2024 11/19/2024 Discontinued (Therapy completed) 50 ml sodium chloride 9 mg/ml injection (2 sources) Start: 12-01-2024 End: 12-01-2024 500 mL, IntraVENous, at 500 mL/hr, Administer over 1 Hours, Once, On Sun12/01/24 at 1810, For 1 dose 24 hr trospium chloride 60 mg extended release oral capsule (20 sources) Cholinergic Muscarinic Antagonist Start: 07-07-2019 End: 08-11-2022 take 1 capsule by mouth once daily Trospium 60 MG capsule,extended release 24hr Discontinued 60 mg PO DAILY July 07, 2019 1:00am August 11, 2022 10:10am CHOLECALCIFEROL TABS (7 sources) Start: 09-07-2014 VITAMIN D TABS 1.25mg weekly CHOLECALCIFEROL TABS [id number] Gaurang Gorman MD Start: 09-07-2014 VITAMIN D TABS 1.25mg weekly CHOLECALCIFEROL TABS [id number] Gaurang Gorman MD warfarin sodium 5 mg oral tablet (20 sources) Vitamin K Antagonist Start: 09-02-2021 End: 09-19-2021 warfarin (COUMADIN) 5 mg tablet Indications: Personal history of venous thrombosis and embolism , Atrial fibrillation, unspecified type (HCC) 2.5 mg daily or as directed 30 tablet 11 09/02/2021 09/19/2021 Discontinued Start: 02-04-2021 End: 08-02-2021 warfarin (COUMADIN) 5 mg tab let Indications: Personal history of venous thrombosis and embolism , Atrial fibrillation, unspecified type (HCC) 2.5 mg T/TH/Sat/Sun, 5 mg all other days or as directed 30 tablet 11 02/04/2021 08/02/2021 Discontinued Start: 06-29-2020 End: 11-09-2020 COUMADIN 5 mg tablet Indicat ions: Personal history of venous thrombosis and embolism , Atrial fibrillation, unspecified type (HCC) 2.5 mg Tues, Thurs, Sat and 5 mg all all other days or as directed 30 tablet 11 06/29/2020 11/09/2020 Discontinued Start: 09-15-2010 End: 08-21-2022 Warfarin 5 mg tablet Discont inued 5 mg PO SUMOTUWEFRSA July 07, 2021 12:22pm May 15, 2022 4:41pm Please contact the information source for Protocol details. Comment on above: 5 mg M/W/F and 2.5 m g all other days or as directed 2.5 mg daily or as d irected 5 mg Mon/Thurs, 2.5 mg all other days or as directed 5 mg Mon, Wed, Fri, Sat, 2.5 mg all other days or as directed Problems Active Problems Problem Classification Problem Date Documented Date Episodic/Chronic Cardiac dysrhythmias (20 sources) Paroxysmal atrial fibrillation; Translations: [Atrial fibrillation] Onset: 1 09-29-2015 Chronic Cardiac dysrhythmias (20 sources) Tachycardia; Translations: [Tachycardia, unspecified] Onset: 5 07-03-2018 Episodic Chronic kidney disease (20 sources) Chronic kidney disease stage 3A ; Translations: [Chronic kidney disease, stage 3a] Onset: 3 10-05-2022 Chronic Chronic kidney disease (1 source) Chronic kidney disease; Translations: [Chronic kidney disease, stage 3a (HCC)] Onset: 3 Congestive heart failure; nonhypertensive (9 sources) Chronic diastolic heart failure; Translations: [Chronic diastolic (congestive) heart failure] Onset: 5 11-12-2024 Chronic Coronary atherosclerosis and other heart disease (20 sources) Atherosclerotic heart disease of 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 coronary artery without angina pectoris; Translations: [Coronary arteriosclerosis] Onset: 0 Resolved: 5 09-29-2015 Chronic Comment on above: S/P bypass surgery i n 1999 with PATINO to LAD and SVG to diagonal; stenting x2 to LAD in February 2006 and September 2007; Disorders of lipid metabolism (20 sources) Hyperlipidemia; Translations: [Pure hypercholesterolemia] Onset: 1 09-15-2010 Chronic E Codes: Fall (2 sources) Fall; Translations: [Unspecified fall, initial encounter] Episodic Esophageal disorders (20 sources) Gastroesophageal reflux disease; Translations: [Gastro-esophageal reflux disease without esophagitis] Onset: 4 09-08-2013 Chronic Essential hypertension (20 sources) Hypertensive disorder; Translations: [Benign essential hypertension] Onset: 5 09-15-2010 Chronic Fluid and electrolyte disorders (10 sources) Dehydration; Translations: [Dehydration] Onset: 5 03-21-2023 Episodic Genitourinary symptoms and ill-defined conditions (5 sources) Urge incontinence of urine; Translations: [Urge incontinence] Chronic Genitourinary symptoms and ill-defined conditions (6 sources) Dysuria; Translations: [Dysuria] Episodic Heart valve disorders (20 sources) Aortic valve stenosis; Translations: [Nonrheumatic aortic (valve) stenosis] Onset: 5 10-02-2024 Chronic Comment on above: Mild per echo 5 Severe per echo September 2024 Immunizations and screening for infectious disease (1 source) Vaccination needed; Translations: [Encounter for immunization] 10-11-2023 Episodic Intestinal obstruction without hernia (20 sources) Small bowel obstruction; Translations: [Unspecified intestinal obstruction, unspecified as to partial versus complete obstruction] Onset: 5 07-30-2019 Episodic Malaise and fatigue (20 sources) Fatigue; Translations: [Other fatigue] Episodic Nonspecific chest pain (20 sources) Chest pain, unspecified; Translations: [Chest pain] Onset: 1 Resolved: 6 03-30-2015 Episodic Nutritional deficiencies (4 sources) Vitamin D deficiency; Translations: [Vitamin D deficiency, unspecified] Onset: 5 04-10-2023 Chronic Other aftercare (18 sources) Long-term current use of anticoagulant; 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] 02-14-2022 Episodic Other aftercare (1 source) Patient encounter status; Translations: [Other [facility] (current) drug therapy] Episodic Other aftercare (3 sources) Long-term current use of diuretic; Translations: [Encounter for therapeutic drug level monitoring] 04-22-2024 Episodic Other aftercare (1 source) Drug therapy finding; Translations: [[facility] (current) use of anticoagulants] 10-14-2024 Episodic Other and ill-defined heart disease (1 source) Left ventricular hypertrophy; Translations: [Cardiomegaly] 11-12-2024 Chronic Other and ill-defined heart disease (2 sources) Cardiomegaly; Translations: [Cardiomegaly] Onset: 5 Chronic Other lower respiratory disease (20 sources) Dyspnea; Translations: [Dyspnea on exertion] Onset: 4 Resolved: 5 10-08-2013 Episodic Other lower respiratory disease (20 sources) Dyspnea, unspecified; Translations: [Other respiratory abnormalities] Episodic Other lower respiratory disease (1 source) Shortness of breath; Translations: [Shortness of breath] Onset: 5 Episodic Other nervous system disorders (20 sources) Ulnar neuropathy of left arm; Translations: [Lesion of ulnar nerve, left upper limb] Onset: 5 09-08-2014 Chronic Other non-traumatic joint disorders (1 source) Pain in right shoulder; Translations: [Pain in joint, shoulder region] 09-14-2020 Episodic Other nutritional; endocrine; and metabolic disorders (9 sources) Body mass index (BMI) 40.0-44.9, adult; Translations: [Body mass index (BMI) 39.0-39.9, adult] Onset: 3 04-05-2015 Chronic Other nutritional; endocrine; and metabolic disorders (5 sources) Body mass index (BMI) 39.0-39.9, adult; Translations: [Body mass index (BMI) 39.0-39.9, adult] Onset: 3 03-04-2013 Chronic Other nutritional; endocrine; and metabolic disorders (20 sources) Obesity; Translations: [Obesity, unspecified] Onset: 5 09-02-2014 Chronic Other nutritional; endocrine; and metabolic disorders (20 sources) Obese class II; Translations: [Obesity, unspecified] Onset: 9 04-29-2019 Chronic Other screening for suspected conditions (not mental disorders or infectious disease) (20 sources) Abnormal result of other cardiovascular function study; Translations: [Abnormal electrocardiogram [ECG] [EKG]] Onset: 3 Resolved: 5 04-05-2015 Episodic Other skin disorders (20 sources) Localized scleroderma; 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]] Onset: 6 12-27-2005 Chronic Other upper respiratory infections (2 sources) Viral upper respiratory tract infection; Translations: [Acute upper respiratory infection, unspecified] Episodic Carito-; endo-; and myocarditis; cardiomyopathy (except that caused by tuberculosis or sexually transmitted disease) (1 source) Cardiomyopathy; Translations: [Cardiomyopathy, unspecified] 10-14-2024 Chronic Comment on above: EF 35% per echo 10/02 Pulmonary heart disease (20 sources) Pulmonary embolism; Translations: [Other pulmonary embolism without acute cor pulmonale] 07-03-2018 Episodic Screening and history of mental health and substance abuse codes (2 sources) Encounter for screening for depression; Translations: [Encounter for screening examination for other mental health and behavioral disorders] Onset: 5 Episodic Thyroid disorders (20 sources) Hypothyroidism; Translations: [Hypothyroidism, unspecified] Onset: 5 04-23-2017 Chronic Unclassified (4 sources) Placement of stent in coronary artery ; Translations: [Presence of coronary angioplasty implant and graft] Onset: 1 09-29-2015 Unclassified (5 sources) Long-term drug therapy; 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] Onset: 1 09-15-2010 Unclassified (1 source) Call tomorrow for further instructions and/or referral information Unclassified (1 source) Obesity, Class II, BMI 35-39.9; Translations: [Obesity, Class II, BMI 35-39.9] Onset: 9 Unclassified (4 sources) Other persistent atrial fibrillation; Translations: [Other persistent atrial fibrillation] Onset: 5 Urinary tract infections (2 sources) Acute cystitis; Translations: [Acute cystitis with hematuria] Episodic Viral infection (1 source) Disease caused by 2019-nCoV; Translations: [COVID-19] Episodic Past or Other Problems Problem Classification Problem Date Documented Da te Episodic/Chronic Abdominal hernia (20 sources) Ventral incisional hernia; Translations: [Incisional hernia without obstruction or gangrene] Onset: 06-15-2016 06-15-2016 Episodic Cancer of ovary (20 sources) Malignant epithelial tumor of ovary; Translations: [Malignant tumor of ovary] Onset: 09-02-2014 Resolved: 10-11-2023 08-30-2012 Chronic Conditions associated with dizziness or vertigo (18 sources) Dizziness and giddiness; Translations: [Lightheadedness] Onset: 07-03-2011 Resolved: 04-05-2015 07-03-2011 Episodic Coronary atherosclerosis and other heart disease (20 sources) Coronary angioplasty status; Translations: [Stented coronary artery] Onset: 05-28-1999 09-15-2010 Episodic Comment on above: PTCA LAD X w stents 03/06/06, 10/18/07 Esophageal disorders (20 sources) Esophagitis; Translations: [Esophagitis, unspecified] Onset: 01-23-2012 01-23-2012 Episodic Fracture of lower limb (20 sources) Fracture of lateral malleolus; Translations: [Displaced fracture of lateral malleolus of right fibula, initial encounter for closed fracture] Onset: 08-27-2012 08-27-2012 Episodic Fracture of upper limb (20 sources) Fracture of triquetral bone of wrist; Translations: [Nondisplaced fracture of triquetrum [cuneiform] bone, right wrist, initial encounter for closed fracture] Onset: 08-27-2012 08-27-2012 Episodic Gastritis and duodenitis (20 sources) Acute gastritis; Translations: [Acute gastritis without bleeding] Onset: 01-23-2012 01-23-2012 Episodic Other aftercare (2 sources) 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; 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] Onset: 09-15-2010 09-15-2010 Episodic Other aftercare (1 source) Encounter for therapeutic drug level monitoring; Translations: [Encounter for therapeutic drug level monitoring] Onset: 06-10-2024 Episodic Other circulatory disease (13 sources) Abnormal cardiovascular function; Translations: [Abnormal result of other cardiovascular function study] Onset: 04-02-2013 Resolved: 04-05-2015 10-22-2015 Episodic Other lower respiratory disease (20 sources) Dyspnea on exertion; Translations: [Dyspnea, unspecified] Onset: 04-05-2015 04-05-2015 Episodic Other non-traumatic joint disorders (7 sources) Hip pain; Translations: [Pain in left hip] Onset: 06-09-2015 06-10-2015 Episodic Phlebitis; thrombophlebitis and thromboembolism (20 sources) History of thromboembolism of vein; Translations: [Personal history of other venous thrombosis and embolism] Onset: 03-20-2005 Resolved: 10-11-2023 Episodic Spondylosis; intervertebral disc disorders; other back problems (7 sources) Low back pain; Translations: [Low back pain] Onset: 06-09-2015 06-10-2015 Episodic Unclassified (14 sources) Family history of stroke; Translations: [Family history of stroke] Resolved: 04-05-2015 06-03-2014 Episodic Unclassified (20 sources) Left-sided pyelonephritis 12-15-2021 Unclassified (20 sources) ivc filter retreval 12-15-2021 Results Test Name Value Interpretation Reference Range Facility ECHOCARDIOGRAM LIMITEDon ECHOCARDIOGRAM LIMITED Summary 1. A Limited transthoracic echocardiographic study was performed to reassess LV function. Complete Doppler exam was not performed. 2. Normal LV chamber size. Normal wall thickness. Systolic function is low normal with no regional wall motion abnormalities. Ejection fraction by biplane method of discs of 50%. 3. RV systolic pressure could not be accurately estimated. Ordering Physician: Miryam Tejeda Referring Physician: Miryam Tejeda Clay Structure Builder And Servicer: Saritha Cohen Attending Physician: Miryam Tejeda Patient Info Site Location: Exam Location: [facility] [place] Name: Sandrine Rivers Age: 84 years : 1940 Gender: Female Ht: 163 cm Wt: 72 kg BSA: 1.82 m2 HR: 61 bpm BP: 108 / 68 mmHg Technical Quality: Fair Exam Date: 01/22/2025 1:41 PM Patient Status: OUTPATIENT Exam Type: ECHOCARDIOGRAM LIMITED Study Info Indications R94.31 - Abnormal electrocardiogram (ECG) (EKG) [id number] BMI: 27.29 kg/m2 Procedure(s): A Limited transthoracic echocardiographic study was performed to reassess LV function. Complete Doppler exam was not performed. Left Ventricle Normal LV chamber size. Normal wall thickness. Systolic function is low normal with no regional wall motion abnormalities. Ejection fraction by biplane method of discs of 50%. Indeterminate diastolic function. Left Atria Left atrial chamber is mildly enlarged with a left atrial volume index of 40 ml/m2 by BP MOD. Mitral Valve Thickened mitral valve leaflets. There is mitral annular calcification. Tricuspid Valve RV systolic pressure could not be accurately estimated. trace tricuspid regurgitation. Mitral Valve Name Value Normal MV Doppler MV Decel Craven 891 cm/s2 MV PHT 37 ms MV Area (PHT) 6.0 cm2 4.0-5.0 MV Diastolic Function MV E Peak Velocity 1.12 m/s MV A Peak Velocity 0.38 m/s MV E/A 3.0 MV Decel Time 126 ms MV Annular TDI MV Septal e' Velocity 8.2 cm/s MV E/e' (Septal) 13.7 MV Lateral e' Velocity 11.9 cm/s >=9.5 MV E/e' (Lateral) 9.4 MV e' Average 10.07 cm/s MV E/e' (Average) 11.6 <=13.5 Tricuspid Valve Name Value Normal TV Regurgitation Doppler TR Peak Velocity 2.93 m/s <=2.80 TR Peak Gradient 34 mmHg TV Annular TDI RV s' Velocity 0.1 m/s >=0.1 Ventricles Name Value Normal LV Dimensions 2D/MM IVS Diastolic Thickness (2D) 1.0 cm 0.6-0.9 LVID Diastole (2D) 4.6 cm 3.8-5.2 LVIW Diastolic Thickness (2D) 1.1 cm 0.6-0.9 LVID Systole (2D) 3.5 cm 2.2-3.5 LV Mass (2D Cubed) 165.69 g 67.00-162.00 LV Mass Index (2D Cubed) 91 g/m2 43-95 Relative Wall Thickness (2D) 0.47 <=0.42 LV Fractional Shortening/Ejection Fraction 2D/MM LV Fractional Shortening (2D) 25 % 27-45 LV EF (2D Teichholz) 50 % LV Diastolic Volume (4C MOD) 59 ml LV Systolic Volume (4C MOD) 31 ml LV EF (4C MOD) 47 % LV Diastolic Volume (2C MOD) 65 ml LV Systolic Volume (2C MOD) 31 ml LV EF (2C MOD) 52 % LV Diastolic Volume (BP MOD) 65 ml 46-106 LV Diastolic Volume Index (BP MOD) 35 ml/m2 29-61 LV Systolic Volume (BP MOD) 32 ml 14-42 LV Systolic Volume Index (BP MOD) 18 ml/m2 8-24 LV EF (BP MOD) 50 % 54-74 LV Diastolic Length (4C) 5.9 cm LV Systolic Length (4C) 5.5 cm LV Stroke Volume (4C MOD) 27 ml LV Stroke Index (4C MOD) 14.99 ml/m2 RV Systolic Function RV s' Velocity 0.08 m/s >=0.10 Diastology TR Peak Velocity 2.93 m/s <=2.80 MV Septal e' Velocity 8.2 cm/s LA Volume Index (BP A-L) 42 ml/m2 16-34 LA Volume Index (2C MOD) 38 ml/m2 LA Volume Index (4C MOD) 41 ml/m2 LA Volume Index (BP MOD) 40 ml/m2 16-34 MV Lateral e' Velocity 11.9 cm/s >=9.5 MV E/e' (Average) 11.6 <=13.5 MV E/A 3.0 MV E/e' (Lateral) 9.4 MV E/e' (Septal) 13.7 MV e' Average 10.07 cm/s Atria (more content not included)... Normal [facility] ECG 12 Leadon 01-21-2025 Atrial fibrillation -irregular conduction -Extensive T-abnormality -Possible Anterior/lateral and inferior ischemia. ABNORMAL [facility] ECG 12-LEADon 01-21-2025 ECG 12-LEAD Atrial fibrillation -irregular conduction -Extensive T-abnormality -Possible Anterior/lateral and inferior ischemia. ABNORMAL Normal [facility] Ambulatory 36on 12-03-2024 36 FYI.... [facility] called stating pt will transfer her care to their offices in either [place] or [place]. Requested face sheet, office note and cardiac work up faxed to [phone] Thank you [facility] 12-03-2024 [facility]VIB[facility] -- SANDRINE RIVERS ([id number]) 1940 F Date Time Provider Department 12/03/24 [facility] During your visit today, we recorded the following information about you: Amara Ramesh LPN 12/03/2024 2:58 PM Signed Patient calling requesting a handicap placard renewal rx, she has one. Patient would like to pick out hand rx when ready. Please advise Charles Chavez APRN.CNP 12/05/2024 1:15 PM Signed Printed. Charles Chavez APRN.Julia Goodman MA 12/05/2024 1:36 PM Signed Detailed message left notifying pt that benitez is ready for pick out hand at [facility]. Julia Patel MA Allergies As of Date: 12/03/2024 Noted Allergy Reaction STREPTOKINASE 05/19/2018 4 - Hives POISON ARACELI 03/13/2005 POISON OAK EXTRACT 02/03/2022 9 - Itching Date Reviewed: 10/14/2024 Reviewed by: Julia Patel MA - Fully Assessed Reason for Visit: handicap placard renewal rx [Other] Prescriptions as of 12/05/2024 - carvedilol (COREG) 6.25 mg tablet Take 6.25 mg by mouth two times a day with meals. Prescribed by Cardio at [facility] - ramipril (ALTACE) 5 mg capsule Take by mouth once daily. - spironolactone (ALDACTONE) 25 mg tablet once daily. - sucralfate (CARAFATE) 1 gram tablet Take 1 tablet by mouth before meals and at bedtime. - rosuvastatin (CRESTOR) 40 mg tablet Take 1 tablet by mouth once daily. - levothyroxine (LEVOXYL) 125 mcg tablet Take 1 tablet by mouth once daily. Take on empty stomach. For thyroid. - furosemide (LASIX) 40 mg tablet Take 1 tablet by mouth once daily. - niacin ER (NIASPAN) 500 mg tablet Take 1 tablet by mouth two times a day. - hydroCHLOROthiazide (MICROZIDE) 12.5 mg capsule Take 1 capsule by mouth once daily. - lansoprazole (PREVACID) 30 mg capsule Take 1 capsule by mouth daily before breakfast. 1/2 hr before meal. - potassium chloride 20 mEq TbER Take 1 tablet by mouth once daily. - cholecalciferol, Vitamin D3, (VITAMIN D3) 1,250 mcg (50,000 unit) cap capsule Take 1 capsule by mouth one time a week. - tiZANidine (ZANAFLEX) 4 mg tablet Take 1 tablet by mouth every 8 hours as needed (muscle spasms). - oxybutynin ER (DITROPAN XL) 10 mg 24 hr tablet Take 1 tablet by mouth once daily. - apixaban (ELIQUIS) 5 mg tab(s) Take 5 mg by mouth twice daily. - mirabegron (MYRBETRIQ) 50 mg Tb24 Take 1 tablet by mouth once daily. - albuterol HFA (PROAIR HFA) 90 mcg/actuation inhaler Inhale 2 Puffs as instructed every 6 hours as needed. - nitroglycerin(NITROQUICK 0.4 MG SUBLINGUAL TAB) - ASPIRIN 81 MG TAB Take one(1) tablet daily. - CALCIUM 500 MG TAB Take one(1) tablet two(2) times daily. - TYLENOL PM 25 MG-500 MG TAB Take two(2) at bedtime Problem List As Of Date 12/03/2024 Noted Resolved Coronary atherosclerosis [I25.10] 03/20/2005 AORTOCORONARY BYPASS STATUS [Z95.1] 03/20/2005 BENIGN HYPERTENSION [I10] 03/20/2005 PERS HX VENOUS THROMB/EMBOLISM [Z86.718] 03/20/2005 Hypothyroidism [E03.9] 03/20/2005 CIRCUMSCRIBE SCLERODERMA [L94.0] 12/27/2005 Acute gastritis without mention of hemorrhage [*01/23/2012 Esophagitis, unspecified [K20.90] 01/23/2012 Fracture of lateral malleolus of right ankle [S*08/27/2012 Nondisplaced fracture of triquetral bone of rig*08/27/2012 GERD (gastroesophageal reflux disease) [K21.9] 09/08/2013 Multiple thyroid nodules [E04.2] 12/22/2013 Colloid thyroid nodule [E04.1] 02/11/2014 Atrial fibrillation (HCC) [I48.91] 09/02/2014 Ovarian cancer (HCC) [C56.9] 09/02/2014 10/11/2023 Obesity [E66.9] 09/02/2014 DVT (deep venous thrombosis) (HCC) [I82.409] 09/02/2014 10/11/2023 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 LMO VM to reduce Ramipril to 1.25mg from 5mg. Update sent to pharmacy for patient. Notified patient that team will call patient with EP scheduled OV. Normal [facility] 36 ----- Message from Maggie Huggins MD sent at 12/02/2024 9:05 AM EDT ----- I recommend to reduce the ramipril to 1.25 mg daily. I sent it to the pharmacy. Also I referred patient to electrophysiology for management of A-fib a flutter. She left from ED AMA. Please make a follow-up with STEVEN in a week if EP does not see her in the next 1 to 2 weeks. Thank you [facility] 36on 12-01-2024 36 Patient scheduled fo r urgent OV Normal [facility] 36 Patient called in. S he reports worsening dizziness, lightheadedness, extreme fatigue, unsteadiness on her feet (she had a fall over the weekend, denies hitting her head). She notes that 24-36 hours after her DCC she started having these symptoms and believes that she is back in AF. Her vitals are 104/68 HR 99. Early was 96/49 with HR 91 she does report that her BP at times has been slightly lower. She reports that she has been compliant with her medications and has not missed any doses. She does feel her heart rate when she is laying in bed but she is not tachycardic. Patient scheduled 12/08 for follow-up. Normal [facility] 36 error Normal [facility] COMPREHENSIVE METABOLIC PANE Paulo 12-01-2024 Albumin [Mass/Vol] 3.8 g/dL Normal 3.4-4.8 [facility] Comment on above: Performed By: #### L [id number], [id number], [id number], LAB17 #### Softball Player: INDIA MERCER ([id number]) [facility] ([facility]) [address] [place] [address] ALP [Catalytic activity/Vol] 47 U/L Normal 40-150 [facility] Comment on above: Performed By: #### L [id number], [id number], [id number], LAB17 #### Softball Player: INDIA MERCER ([id number]) [facility] ([facility]) [address] [place] [address] ALT [Catalytic activity/Vol] 16 U/L Normal <30 [facility] Comment on above: Performed By: #### L [id number], [id number], [id number], LAB17 #### Softball Player: INDIA MERCER ([id number]) [facility] ([facility]) [address] [place] [address] Anion gap [Moles/Vol] 10 mmol/L Normal 3-13 [facility] Comment on above: Performed By: #### L [id number], [id number], [id number], LAB17 #### Softball Player: INDIA MERCER ([id number]) [facility] ([facility]) [address] [place] [address] AST [Catalytic activity/Vol] 25 U/L Normal <34 [facility] Comment on above: Performed By: #### L [id number], [id number], [id number], LAB17 #### Softball Player: INDIA MERCER ([id number]) [facility] ([facility]) [address] [place] [address] Bilirubin [Mass/Vol] 0.7 mg/dL Normal <1.2 [facility] Comment on above: Performed By: #### L [id number], [id number], [id number], LAB17 #### Softball Player: INDIA MERCER ([id number]) [facility] ([facility]) [address] [place] [address] Calcium [Mass/Vol] 10.8 mg/dL High 8.8-10.0 [facility] Comment on above: Performed By: #### L [id number], [id number], [id number], LAB17 #### Softball Player: INDIA MERCER ([id number]) [facility] ([facility]) [address] [place] [address] [place] Chloride [Moles/Vol] 97 mmol/L Low 98-107 [facility] Comment on above: Performed By: #### L [id number], [id number], [id number], LAB17 #### Softball Player: INDIA MERCER ([id number]) [facility] [address] [place] [address] CO2 [Moles/Vol] 21 mmol/L Low 23-31 [facility] Comment on above: Performed By: #### L [id number], [id number], [id number], LAB17 #### Softball Player: INDIA MERCER ([id number]) [facility] [address] [place] [address] Creatinine [Mass/Vol] 1.95 mg/dL High 0.57-1.11 [facility] Comment on above: Performed By: #### L [id number], [id number], [id number], LAB17 #### Softball Player: INDIA MERCER ([id number]) [facility] ([facility]) [address] [place] [address] GLOMERULAR FILTRATION RATE ML/MIN/1.73 SQ M.PREDICTED 25.0 mL/min/1.73m*2 Low >60.0 [facility] Comment on above: Result Comment: Calc ulation based on the Chronic Kidney Disease Epidemiology Collaboration (CKD-EPI) equation refit without adjustment for race Performed By: #### L [id number], [id number], [id number], LAB17 #### Softball Player: INDIA MERCER ([id number]) [facility] [address] [place] [address] Glucose [Mass/Vol] 106 mg/dL Normal 82-115 [facility] Comment on above: Performed By: #### L [id number], [id number], [id number], LAB17 #### Softball Player: INDIA MERCER ([id number]) [facility]) [address] [place] [address] Potassium [Moles/Vol] 4.6 mmol/L Normal 3.5-5.1 [facility] Comment on above: Result Comment: [facility] potassium values may be up to 0.5 mmol/L lower than serum values. Performed By: #### L [id number], [id number], [id number], LAB17 #### Softball Player: INDIA MERCER ([id number]) [facility] ([facility]) [address] [place] [address] Protein [Mass/Vol] 6.8 g/dL Normal 6.4-8.3 [facility] Comment on above: Performed By: #### L [id number], [id number], [id number], LAB17 #### Softball Player: INDIA MERCER ([id number]) [facility] [address] [place] [address] Sodium [Moles/Vol] 128 mmol/L Low 136-145 [facility] Comment on above: Performed By: #### L [id number], [id number], [id number], LAB17 #### Softball Player: INDIA MERCER ([id number]) [facility] [address] [place] [address] Urea nitrogen [Mass/Vol] 26 mg/dL High 9-23 [facility] Comment on above: Performed By: #### L [id number], [id number], [id number], LAB17 #### Softball Player: INDIA MERCER ([id number]) [facility] [address] [place] [address] Comprehensive metabolic 1998 panelon 12-01-2024 Albumin [Mass/Vol] 3.8 g/dL 3.4 - 4.8 g/dL [facility] ALP [Catalytic activity/Vol] 47 U/L 40 - 150 U/L [facility] ALT [Catalytic activity/Vol] 16 U/L NINF - 30 U/L [facility] Anion gap [Moles/Vol] 10 mmol/L 3 - 13 mmol/L [facility] AST [Catalytic activity/Vol] 25 U/L NINF - 34 U/L [facility] Bilirubin [Mass/Vol] 0.7 mg/dL NINF - 1.2 mg/dL [facility] Calcium [Mass/Vol] 10.8 mg/dL High 8.8 - 10. 0 mg/dL [facility] Chloride [Moles/Vol] 97 mmol/L Low 98 - 10 7 mmol/L [facility] CO2 [Moles/Vol] 21 mmol/L Low 23 - 31 mmol/L [facility] Creatinine [Mass/Vol] 1.95 mg/dL High 0.57 - 1.11 mg/dL [facility] GFR/1.73 sq M.predicted (S/P/Bld) [Vol rate/Area] 25 mL/min Low - PINF [facility] Comment on above: Calculation based on the Chronic Kidney Disease Epidemiology Collaboration (CKD-EPI) equation refit without adjustment for race Glucose [Mass/Vol] 106 mg/dL 82 - 115 mg/dL [facility] Interpretation and review of laboratory results Abnormal [facility] Potassium [Moles/Vol] 4.6 mmol/L 3.5 - 5.1 mmol/L [facility] Comment on above: Plasma potassium macario ues may be up to 0.5 mmol/L lower than serum values. Protein [Mass/Vol] 6.8 g/dL 6.4 - 8.3 g/dL [facility] Sodium [Moles/Vol] 128 mmol/L Low 136 - 145 mmol/L [facility] Urea nitrogen [Mass/Vol] 26 mg/dL High 9 - 23 mg/dL [facility] ECG 12-LEADon 12-01-2024 ECG 12-LEAD IMPRESSION: Atrial fibrillation Abnormal T, consider ischemia, diffuse leads Electronically Signed On 12-01-2024 17:10:10 EDT by Charles Teixeira [facility] ED Nursing Noteon 12-01-2024 ED Nursing Note Daisy VANN and Dr Ra oro made aware of patient leaving. Normal [facility] ED Nursing Note Patient and family c blanquita to this nurse demanding her IV be removed because she was leaving. Patient began cussing at this nurse because she was not in a room. This nurse explained to the patient we are just waiting for a room in the back and asked patient if she would speak with a provider. Patient still demanding to leave. SOO made aware. [facility] ED Nursing Note Pt and family came u p to window and said We are fucking leaving! Due to not wanting to wait for a room in the hospital or the ER. ER rooms are full at this time and pt has not been assigned a bed on the floor. Normal [facility] ED Nursing Note Pt son expressed frustration to this nurse asking how long it will take for patient to get a room. Son was under the impression from the lens inspector she was already admitted to the hospital. Provided education that the patient just had lab work done and it is unknown at this time wether or not she was admitted as we have no information. Patient son stated this is crazy. Normal [facility] ED Provider Noteon ED Provider Note Emergency Department Encounter [facility] EMERGENCY DEPT Patient: Sandrine Rivers : 1940 Date of Evaluation: 12/01/2024 ED Supervising Physician: Krys Torres MD I personally evaluated Sandrine Rivers and made/approved the management plan and take responsibility for the patient management. This will serve as my Supervisory note and shared attestation. I did perform a substantive portion of the visit including all aspects of the Medical Decision Making. I wore appropriate PPE for the entirety of this encounter. In brief, Sandrine Rivers is a 84 y.o. that presents to the emergency department for arrhythmia. Patient with history of A-fib on amiodarone, Eliquis, heart failure with reduced ejection fraction, prior failed cardioversion, cardiomyopathy with prior CABG and PCI, CKD and hypothyroidism presented to the heart failure clinic today with fatigue, palpitations, orthopnea and sent here to be admitted. She was recently cardioverted about 1 week ago and had recurrence of symptoms. Reports compliance with her medications. Denies any nausea vomiting cough any chest pain any bloody stools. Denies any focal weakness numbness tingling. Focused exam: Vitals borderline low blood pressure otherwise stable no distress Heart sounds are regular lungs clear bilaterally Lower extremities without edema Brief ED course/MDM: 84-year-old female here with palpitations fatigue generalized weakness shortness of breath on exertion. Differential symptomatic A-fib, heart failure, anemia, electrolyte derangement, infection. Medical history impacting this visit includes heart failure and A-fib. EKG shows A-fib rate is controlled. Labs pending. Will admit to the hospitalist for evaluation by cardiology for further treatment options. I reviewed outpatient office visit from 12/01/2024 highlighting her care regarding her heart failure and atrial fib. Diagnostics interpreted by me: Xray(s) chest x-ray without acute infiltrate I personally discussed the patient's management with other clinicians: none All diagnostic, treatment, and disposition decisions were made by myself in conjunction with the STEV[facility]. For all further details of the patient's emergency department visit, please see their documentation. (Comment: Please note this report has been produced using speech recognition software and may contain errors related to that system including errors in grammar, punctuation, and spelling, as well as words and phrases that may be inappropriate. If there are any questions or concerns please feel free to contact the dictating provider for clarification.) Krys Torres MD Acute Care [facility] Krys Torres MD 12/01/242007 [facility] ED Provider Note EMERGENCY DEPARTMENT ENCOUNTER Pt Name: Sandrine Rivers Birthdate 1940 Date of evaluation: 12/01/2024 ED Provider: Harsha Huerta PA-C CHIEF COMPLAINT Chief Complaint Patient presents with Irregular Heart Beat Pt was at dr. Office and having an episode of afib. Hx of afib, takes blood thinner, recent cardioversion HISTORY OF PRESENT ILLNESS (Location/Symptom, Timing/Onset, Context/Setting, Quality, Duration, Modifying Factors, Severity) Note limiting factors. I wore appropriate PPE for the entirety of this encounter. HPI Sandrine Rivers is a 84 y.o. who presents to the emergency department with chief complaint of Patient is a pleasant 84-year-old female reportedly sent in from lens inspector office for consideration for treatment for her A-fib. She has not had long-term paroxysmal A-fib for which she is anticoagulated rate controlled as well as on amiodarone as an antiarrhythmic. At time of my exam patient denies chest pain difficulty breathing shortness of breath nausea vomiting lightheadedness or any other complaints. There is a cardiology note from earlier today, notes the patient has been feeling worse with NYHA class III fatigue palpitations orthopnea but no chest pain PND or syncopal episodes. Previously had DCCV for A-fib to NSR. Chart makes mention of cardioversion scheduled in 2 weeks but does not state patient was told to go to the emergency department. Prescribed medications include amiodarone ramipril Eliquis Synthroid Myrbetriq Nitrostat Ditropan Klor-Con Crestor spironolactone and Carafate with streptokinase allergy noted. Documented medical history includes prior SBO coronary artery disease status post stenting hypothyroidism hyperlipidemia GERD esophagitis STARK stage III kidney disease persistent A-fib aortic valve stenosis. Nursing Notes were reviewed. Limitations to history: None Outside historians: None REVIEW OF SYSTEMS Review of Systems Pertinent positives and negatives as per HPI. PAST MEDICAL HISTORY Medical History[1] SURGICAL HISTORY Surgical History[2] CURRENT MEDICATIONS Previous Medications ACETAMINOPHEN (TYLENOL) 500 MG TABLET Take 500 mg by mouth every 4 hours as needed for mild pain (1-3). AMIODARONE (PACERONE) 200 MG TABLET Take 1 tablet (200 mg) by mouth 2 times daily. APIXABAN (ELIQUIS) 5 MG TABLET Take 5 mg by mouth 2 times daily. ASPIRIN 81 MG EC TABLET Take 81 mg by mouth daily. CALCIUM CARBONATE (CALCIUM 600 PO) Take 600 mg by mouth daily. CHOLECALCIFEROL (VITAMIN D-3) 1.25 MG (68708 UT) CAPSULE Take 50,000 Units by mouth 1 (one) time per week. LEVOTHYROXINE (SYNTHROID, LEVOXYL) 125 MCG TABLET Take 125 mcg by mouth every morning (before breakfast). MIRABEGRON ER (MYRBETRIQ) 50 MG 24 HR TABLET Take 50 mg by mouth Nightly. Do not crush, chew, or split. NIACIN 500 MG TABLET Take 500 mg by mouth 2 times daily (with meals). NITROGLYCERIN (NITROSTAT) 0.[address] 0.4 mg under the tongue every 5 minutes as needed for chest pain. OXYBUTYNIN XL (DITROPAN-XL) 10 MG 24 HR TABLET Take 10 mg by mouth daily. Do not crush, chew, or split. POTASSIUM CHLORIDE CR (KLOR-CON M20) 20 MEQ ER TABLET Take 20 mEq by mouth daily. Do not crush or chew. RAMIPRIL (ALTACE) 5 MG CAPSULE Take 1 capsule (5 mg) by mouth daily. ROSUVASTATIN (CRESTOR) 40 MG TABLET Take 40 mg by mouth daily. SPIRONOLACTONE (ALDACTONE) 25 MG TABLET Take 25 mg by mouth daily. SUCRALFATE (CARAFATE) 1 G TABLET Take 1 g by mouth daily. ALLERGIES Streptokinase and Poison araceli extract FAMILY HISTORY Family History[3] SOCIAL HISTORY Social History[4] SCREENINGS PHYSICAL EXAM ED Triage Vitals [12/01/24 1725] Temp Heart Rate Resp BP 36.9 ?C (98.5 ?F) 83 16 98/62 SpO2 Temp Source Heart Rate Source Patient Position 100 % Temporal Monitor -- BP Location FiO2 (%) -- -- General: Alert, no acute distress Skin: Warm, dry, intact Head: Normocephalic, atraumatic Eye: Normal conjunctiva, ENMT: Oral mucosa moist, trachea midline without tenderness or crepitus Cardiovascular: Irregularly irregular peripheral heart rate in the 80s with palpation of the right radial artery, normal peripheral perfusion, no edema calf tenderness or venous cords bilaterally Respiratory: Lungs clear to auscultation, nonlabored respirations, breath sounds equal, symmetrical expansion Chest wall: No tenderness, no deformity Gastrointestinal: Soft, nontender ?4 quadrants with no rebound or guarding Back: Nontender midline thoracic and lumbar spines without step-off deformities or crepitus, no flank tenderness noted bilaterally MSK: No swelling, No deformity, no tenderness all extremities other than noted above Neuro: GCS 15 Psych: Cooperative, appropriate mood and affect Physical Exam DIAGNOSTIC RESULTS Procedures/EKG: EKG was reviewed by myself. Physician EKG interpretation can be found in [facility] RADIOLOGY (Per Emergency Physician): (more content not included)... Normal [facility] HIGH SENSITIVITY TROPONIN, S ERIAL BASELINEon 12-01-2024 TROPONIN HS SERIAL BASELINE 21 ng/L High <=14 [facility] Comment on above: Result Comment: In i ndividuals presenting with symptoms > 2h, a baseline troponin <= 5 ng/L suggests acute cardiac injury is unlikely and further serial testing is generally not indicated. Performed By: #### L [id number], [id number], [id number], [id number] ####Softball Player: INDIA MERCER ([id number])[facility] ([address] Laboratory - Chemistry and C hemistry - challengeon 12-01-2024 Magnesium [Mass/Vol] 1.6 mg/dL 1.6 - 2 .6 mg/dL [facility] MAGNESIUMon 12-01-2024 Magnesium [Mass/Vol] 1.6 mg/dL Normal 1.6-2.6 [facility] Comment on above: Result Comment: ORDE R COMMENTS: Higher values can be expected in females during menses. Performed By: #### L [id number], [id number], [id number], LAB17 #### Softball Player: INDIA MERCER ([id number]) [facility] ([facility]) [address] [place] [address] Magnesium [Mass/Vol]on 12-01 Interpretation and review of laboratory results Normal [facility] Higher values can be expected in females during menses. [employer] NT PRO BNPon 12-01-2024 Natriuretic peptide B (Bld) [Mass/Vol] 2740 pg/mL High <450 [facility] [place] [facility] Comment on above: Performed By: #### L [id number], [id number], [id number], LAB17 ####Softball Player: INDIA MERCER ([id number])[facility] ([facility])[address] [place] [address] Natriuretic peptide B [Mass/ Vol]on 12-01-2024 Interpretation and review of laboratory results Abnormal [facility] [place] Natriuretic peptide B (Bld) [Mass/Vol] 2740 pg/mL High NINF - 450 pg/mL [facility] No Panel Informationon 12-01 Interpretation and review of laboratory results Abnormal [facility] [place] Troponin HS Serial Baseline 21 ng/L High NINF - 14 ng/L [facility] [place] Comment on above: In individuals prese nting with symptoms > 2h, a baseline troponin <= 5 ng/L suggests acute cardiac injury is unlikely and further serial testing is generally not indicated. [facility] Atrial fibrillation Abnormal T, consider ischemia, diffuse leads Electronically Signed On 12-01-2024 17:10:10 EDT by Charles Teixeira CV Charles Ibarra MD - 12/01/2024 IMPRESSION: Atrial fibrillation Abnormal T, consider ischemia, diffuse leads Electronically Signed On 12-01-2024 17:10:10 EDT by Charles Teixeira [facility] [place] No Panel InformationOrdered By: Charles Teixeira on 12-01-2024 P [place] 0 degrees [employer] Work Phone: NC Interval 0 ms Givey Phone: QRS [place] 33 degrees Givey Phone: QRSD Interval 101 ms Give[employer] Phone: QT Interval 365 ms Give[employer] Phone: QTC Interval 416 ms Give[employer] Phone: T Wave [place] 176 degrees Givey Phone: Givey Phone: Office Visiton 12-01-2024 Follow-up visit [id number] Blaze Rivers Haja 1940 F Date Provider Department Center 12/01/2024 [id number] HUGGINS [facility] 95 Ar Family History Problem Relation Age of Onset Hypertension Mother Stroke Mother Hyperlipidemia Mother Alzheimer's disease Mother No Known Problems Father Comments: Unknown Heart attack Sister Stroke Sister Family Status - Relation Status Age at Mother Father Sister Brother Brother Level of Service:09045 [place] OFFICE/OUTPATIENT ESTABLISHED MOD [facility] 30 MIN Reason for Visit and Comments: Follow-up [254100] Atrial Fibrillation [80] Congestive Heart Failure [127] [facility] Vital signsOrdered By: Charles Teixeira on 12-01-2024 Heart rate 80 /min bpm Give[employer] Phone: XR Chest 2 Viewson [facility] SANDR[facility]IV[facility] 1940 [id number] Exam Date/Time: 12/01/2024 19:53 Procedure: XR CHEST 2 VIEWS Ordering Provider: TORRES MICHAEL Reason For Exam: orthopnea, history of heart failure Chest two views HISTORY: Short of breath Cardiomegaly. Sternal wires and mediastinal clips. No significant lung infiltrates or pleural effusions. Report Dictated on Electronically Signed By: Peter Urias MD Electronically Signed Date/Time: 12/01/2024 8:19 PM T [facility] Peter Urias MD - 12/01/2024 Patient Name: SANDRNIE RIVERS : 1940 [id number] Exam Date/Time: 12/01/2024 19:53 Procedure: XR CHEST 2 VIEWS Ordering Provider: TORRES MICHAEL Reason For Exam: orthopnea, history of heart failure Chest two views HISTORY: Short of breath Cardiomegaly. Sternal wires and mediastinal clips. No significant lung infiltrates or pleural effusions. Report Dictated on Electronically Signed By: Peter Urias MD Electronically Signed Date/Time: 12/01/2024 8:19 PM EDT [facility] Radiology Study observation (narrative) [facility] XR Chest 2 ViewsOrdered By: Peter Urias on 12-01-2024 [facility] Work Phone: 36on 11-28-2024 36 S Patient calling concerned that cardioversion was not affective B cardioversion Sunday A Patient of Dr Huggins calling. Had cardioversion Sunday with Dr Aguirre. Calling today with return of previous symptoms. Was fine Sunday following cardioversion but by Sunday was having fatigue, dizziness/lightheadedness, increased SOB and activity intolerance. Is back to using her walker for stability. Intermittent forceful heart beat but does not persist. Denies CP or feeling like passing out. Patient asked about HR - BP Currently 104/68 HR 99. Early was 96/49 with HR 91 R Paged AAYZ Jackson communications officer. He advised it could be BP related. Was advised to monitor increase fluids and call back if HR goes above 120 Patient updated. Advised to call back with the above and if anything like increased SOB CP or feeling like passing out. Advised ED for severe symptoms. Reason for Disposition Patient sounds very sick or weak to the triager Protocols used: Dizziness - Epvwdiohpnylyvg-GUPTG-CG [facility] ECG 12-LEADon 11-24-2024 ECG 12-LEAD IMPRESSION: Sinus rhythm Low voltage, precordial leads Nonspecific T abnrm, anterolateral leads No previous ECG available for comparison Electronically Signed On 11-24-2024 19:00:12 EDT by Luis Eduardo Graves [facility] No Panel InformationOrdered By: Luis Eduardo Graves on 11-24-2024 P [place] 27 degrees Givey Phone: NC Interval 189 ms Givey Phone: QRS [place] -4 degrees Givey Phone: QRSD Interval 102 ms Givey Phone: QT Interval 382 ms Givey Phone: QTC Interval 417 ms Givey Phone: T Wave [place] 158 degrees Givey Phone: Givey Phone: No Panel Informationon 11-24 Sinus rhythm Low voltage, precordial leads Nonspecific T abnrm, anterolateral leads No previous ECG available for comparison Electronically Signed On 11-24-2024 19:00:12 EDT by Luis Eduardo Ramirez M D - 11/24/2024 IMPRESSION: Sinus rhythm Low voltage, precordial leads Nonspecific T abnrm, anterolateral leads No previous ECG available for comparison Electronically Signed On 11-24-2024 19:00:12 EDT by Luis Eduardo Graves [facility] Op Noteon 11-24-2024 Op Note Date: 11/24/2024 Loca tion: [facility] Cardiology Thin Log Name: Sandrine Rivers, : 1940, Diagnosis Persistent atrial fibrillation. CV: 200 J biphasic shock AP pads Afib -> NSR [place] [employer] [facility] Vital signsOrdered By: Luis Eduardo Graves on 11-24-2024 Heart rate 71 /min bpm [employer] Phone: 36on 11-19-2024 36 Requested to see pat ient today given worsening lightheadedness after starting Entresto. +positional pre-syncope. No syncope. Renal function has worsened this week, Scr 1.5 -> 2.0. BP 100/60 sitting and 82/50 with standing. She tries to stay hydrated with crystal light and armor drinks. No edema or JVD on exam. At this point, I think she needs to stop Entresto. Can restart ramipril 5mg daily on Sunday. Recheck labs in 2 weeks. Normal [facility] 36 Patient coming in to day 11/19 for EKG check. Will complete teach during visit. Normal [facility] 36on 11-17-2024 36 Pt called to report she completed her labs at [facility]. Thank you. Will have to request copy. Thank you Normal [facility] Anion gap in Serum or Plasma on 11-17-2024 Anion gap [Moles/Vol] 15 mmol/L 10-09 [facility] BUN/creatinine ratioon 11-17 Urea nitrogen/Creatinine [Mass ratio] 16.1 mg/mg 03-16 [facility] Basic Metabolic Profile (BMP )on 11-17-2024 BUN/CRE 16.1 RATIO Normal 03-16 [facility] Comment on above: Performed By: #### L 503.7505, L500.2500 #### [facility] [address] [place], [address] Calcium [Mass/Vol] 10.5 mg/dL Normal 7.6-11.0 [facility] Comment on above: Performed By: #### L 503.7505, L500.2500 #### [facility] [address] [place], [address] Chloride [Moles/Vol] 104 mmol/L Normal 98-108 [facility] Comment on above: Performed By: #### L 503.7505, L500.2500 #### [facility] [address] [place], [address] CO2 [Moles/Vol] 18.0 mmol/L Low 21.0-32.0 [facility] Comment on above: Performed By: #### L 503.7505, L500.2500 #### [facility] [address] [place], [address] Creatinine [Mass/Vol] 2.04 mg/dL High 0.70-1.20 [facility] Comment on above: Performed By: #### L 503.7505, L500.2500 #### [facility] [address] [place], [address] GAP 15 Normal 5-15 [facility] Comment on above: Performed By: #### L 503.7505, L500.2500 #### [facility] [address] [place], [address] GFR/1.73 sq M.predicted among non-blacks MDRD (S/P/Bld) [Vol rate/Area] 24 mL/min/{1.73_m2} Low >60 [facility] Comment on above: Result Comment: mL/m in/1.73m2 CKD-EPI Creatinine Equation (2020) Performed By: #### L 503.7505, L500.2500 #### [facility] [address] [place], [address] Glucose [Mass/Vol] 110 mg/dL High 70-99 [facility] Comment on above: Performed By: #### L 503.7505, L500.2500 #### [facility] [address] [place], [address] Potassium [Moles/Vol] 4.8 mmol/L Normal 3.3-5.1 [facility] Comment on above: Performed By: #### L 503.7505, L500.2500 #### [facility] [address] [place], [address] Sodium [Moles/Vol] 136 mmol/L Normal 133-145 [facility] Comment on above: Performed By: #### L 503.7505, L500.2500 #### [facility] [address] [place], [address] Urea nitrogen [Mass/Vol] 33 mg/dL High 4-19 [facility] Comment on above: Performed By: #### L 503.7505, L500.2500 #### [facility] [address] [place], [place], [address] Carbon dioxide, total [Moles /volume] in Central venous bloodon 11-17-2024 CO2 [Moles/Vol] 18.0 mmol/L Low 21.0-32.0 [facility] Chloride assayon 11-17-2024 Chloride [Moles/Vol] 104 mmol/L 98-108 [facility] Glomerular filtration rate ( GFR) estimation/1.73 sq m using serum, plasma, or whole bon 11-17-2024 GFR/1.73 sq M.predicted among non-blacks MDRD (S/P/Bld) [Vol rate/Area] 24 mL/min/{1.73_m2} Low >60 [facility] Comment on above: mL/min/1.73m2 CKD-EP I Creatinine Equation (2020) L503.7505on 11-17-2024 Natriuretic peptide B (Bld) [Mass/Vol] 1269 pg/mL Normal <=1800 [facility] Comment on above: Result Comment: Hear t Failure Unlikely: < 300 pg/mL Heart Failure Likely < 50 Years: > 450 pg/mL 50-75 Years: > 900 pg/mL >75 Years: > 1800 pg/mL Performed By: #### L 503.7505, L500.2500 ####[facility] [id number] [place], [place], [address] Natriuretic peptide.B prohor tamir N-Terminal [Mass/volume] in Serum or Plasmaon 11-17-2024 Natriuretic peptide.B prohormone N-Terminal [Mass/Vol] 1269 pg/mL <1800 [facility] Comment on above: Heart Failure Unlike ly: < 300 pg/mLHeart Failure Likely< 50 Years: > 450 pg/mL50-75 Years: > 900 pg/mL>75 Years: > 1800 pg/mL Potassium measurement (mass/ volume)on 11-17-2024 Potassium (Unsp spec) [Mass/Vol] 4.8 mmol/L 3.3-5.1 [facility] Serum creatinine measurement (mass/volume)on 11-17-2024 Creatinine [Mass/Vol] 2.04 mg/dL High 0.70-1.20 [facility] Serum glucose measurement (m ass/volume)on 11-17-2024 Glucose [Mass/Vol] 110 mg/dL High 70-99 [facility] Serum or plasma calcium nanyc urement (mass/volume)on 11-17-2024 Calcium [Mass/Vol] 10.5 mg/dL 7.6-11.0 [facility] Serum or plasma urea nitroge n measurement (mass/volume)on 11-17-2024 Urea nitrogen [Mass/Vol] 33 mg/dL High 4-19 [facility] Sodium levelon 11-17-2024 Sodium [Moles/Vol] 136 mmol/L 133-145 [facility] 36on 11-11-2024 36 Pt scheduled for DCC with Dr Aguirre on 11/24 @ . Ravinder will call pt with teach. Pt has lab order slip & will get done at [facility] OP lab. Please call daughter, Leeroy, with instructions at [phone] [facility] 37on 11-11-2024 37 Stop taking Ramipril Stop taking Hydrochlorothiazide Stop taking Carvedilol Start Entresto 24-26mg twice a day on (wash-out of ramipril for 48 hours) Start Amiodarone 200mg twice a day for 2 weeks then reduce to once a day Cardioversion in 2 weeks [facility] Office Visiton 11-11-2024 Follow-up visit [id number] Blaze Rivers 1940 F Date Provider Department Center 11/11/2024 [id number] HUGGINS [facility] [address] Ar Family History Problem Relation Age of Onset Hypertension Mother Stroke Mother Hyperlipidemia Mother Alzheimer's disease Mother No Known Problems Father Comments: Unknown Heart attack Sister Stroke Sister Family Status - Relation Status Age at Mother Father Sister Brother Brother Level of Service:84984 [place] OFFICE/OUTPATIENT NEW HIGH MDM 60 MINUTES Reason for Visit and Comments: Follow-up [649379] Cardiomyopathy [104] Normal [facility] CNPNon 10-16-2024 CNPN Telephone (AGCARDPOB ) -- SANDRINE RIVERS ([id number]) 1940 F Date Time Provider Department 10/16/24 ANILA CAMARA AGCCEDRICK During your visit today, we recorded the following information about you: Anila Camara APRN.CNP 10/16/2024 2:20 PM Signed Received notification from [facility] of TAVR referral that was sent to their office. Chart reviewed. PMHX of HTN, CAD, CABG 1999 PATINO-> LAD, SVG-> D1, PCI x 2 (, ), GERD, hypothyroidism, atrial fibrillation on Eliquis, CKD. Follows wit Dr. Naik (cardiology [place]). ECHO 10/01/24 at [place] EF 35-40%, DD 1+ MR, 3+ TR, mild AR TERRI 2.2 (no mention of ?) CATH 10/02/24 at [place] 30 distal LM, circ/ramus/Rca normal. ? No mention of graft patency Unclear why referral sent this way? Appears NETWORK OPERATIONS ANALYST at [facility] had conversation with patient yesterday during which pt stated she would like to go to [facility] for her tricuspid work up, has appt in October. Called Dr. Naik's office [phone] for clarification on referral, ?. Awaiting call back from referring PA Shila Camara APRN.Anila Rodriguez APRN.CNP 10/17/2024 12:54 PM Signed Received phone call back from Rosemarie VANN at [facility]/Dr. Naik who placed original referral. States she had intended the referral to go to [facility] and [facility] clnic. I advised her that we were a TAVR clinic here. Pt does not have . Offered to get her in touch with our CHF clinic and physicians. She declined, and is already establishing pt at [facility]. Anila A. Naima, CARTON CATCHER.[employer] Allergies As of Date: 10/16/2024 Noted Allergy Reaction STREPTOKINASE 05/19/2018 4 - Hives POISON ARACELI 03/13/2005 POISON OAK EXTRACT 02/03/2022 9 - Itching Date Reviewed: 10/14/2024 Reviewed by: Julia Patel MA - Fully Assessed Prescriptions as of 10/17/2024 - carvedilol (COREG) 6.25 mg tablet Take 6.25 mg by mouth two times a day with meals. Prescribed by Cardio at [facility] - ramipril (ALTACE) 5 mg capsule Take by mouth once daily. - spironolactone (ALDACTONE) 25 mg tablet once daily. - sucralfate (CARAFATE) 1 gram tablet Take 1 tablet by mouth before meals and at bedtime. - rosuvastatin (CRESTOR) 40 mg tablet Take 1 tablet by mouth once daily. - levothyroxine (LEVOXYL) 125 mcg tablet Take 1 tablet by mouth once daily. Take on empty stomach. For thyroid. - furosemide (LASIX) 40 mg tablet Take 1 tablet by mouth once daily. - niacin ER (NIASPAN) 500 mg tablet Take 1 tablet by mouth two times a day. - hydroCHLOROthiazide (MICROZIDE) 12.5 mg capsule Take 1 capsule by mouth once daily. - lansoprazole (PREVACID) 30 mg capsule Take 1 capsule by mouth daily before breakfast. 1/2 hr before meal. - potassium chloride 20 mEq TbER Take 1 tablet by mouth once daily. - cholecalciferol, Vitamin D3, (VITAMIN D3) 1,250 mcg (50,000 unit) cap capsule Take 1 capsule by mouth one time a week. - tiZANidine (ZANAFLEX) 4 mg tablet Take 1 tablet by mouth every 8 hours as needed (muscle spasms). - oxybutynin ER (DITROPAN XL) 10 mg 24 hr tablet Take 1 tablet by mouth once daily. - apixaban (ELIQUIS) 5 mg tab(s) Take 5 mg by mouth twice daily. - mirabegron (MYRBETRIQ) 50 mg Tb24 Take 1 tablet by mouth once daily. - albuterol HFA (PROAIR HFA) 90 mcg/actuation inhaler Inhale 2 Puffs as instructed every 6 hours as needed. - nitroglycerin(NITROQUICK 0.4 MG SUBLINGUAL TAB) - ASPIRIN 81 MG TAB Take one(1) tablet daily. - CALCIUM 500 MG TAB Take one(1) tablet two(2) times daily. - TYLENOL PM 25 MG-500 MG TAB Take two(2) at bedtime Problem List As Of Date 10/16/2024 Noted Resolved Coronary atherosclerosis [I25.10] 03/20/2005 AORTOCORONARY BYPASS STATUS [Z95.1] 03/20/2005 BENIGN HYPERTENSION [I10] 03/20/2005 PERS HX VENOUS THROMB/EMBOLISM [Z86.718] 03/20/2005 Hypothyroidism [E03.9] 03/20/2005 CIRCUMSCRIBE SCLERODERMA [L94.0] 12/27/2005 Acute gastritis without mention of hemorrhage [*01/23/2012 Esophagitis, unspecified [K20.90] 01/23/2012 Fracture of lateral malleolus of right ankle [S*08/27/2012 Nondisplaced fracture of triquetral bone of rig*08/27/2012 GERD (gastroesophageal reflux disease) [K21.9] 09/08/2013 Multiple thyroid nodules [E04.2] 12/22/2013 Colloid thyroid nodule [E04.1] 02/11/2014 Atrial fibrillation (HCC) [I48.91] 09/02/2014 Ovarian cancer (HCC) [C56.9] 09/02/2014 10/11/2023 Obesity [E66.9] 09/02/2014 DVT (deep venous thrombosis) (HCC) [I82.409] 09/02/2014 10/11/2023 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*09/08/2014 Ventral incisional hernia [K43.2] 06/15/2016 Obesity, Class II, BMI 35-39.9 [E66.812] 04/29/2019 Chronic kidney disease, stage 3a (HCC) [N18.31] 10/05/2022 Encounter Status:Closed by ANILA CAMARA on 10/17/24 [facility] [place] 10-14-2024 CNOV Office Visit (FAMPWS ) -- SANDRINE RIVERS ([id number]) 1940 F Date Time Provider Department 10/14/24 9:40 AM SAMANTHA REYES During your visit today, we recorded the following information about you: Pulse Respiration Blood pressure Weight 68/minute 16/minute 122/74 81.6 kg Samantha Reyes MD 10/14/2024 10:05 AM Signed Chief Complaint Patient presents with: 6 Month Exam HPI Sandrine Rivers is a 84 year old female who presents here today for a 6 month follow up. Uses cane to ambulate, denies any falls. No bowel, gi, or urinary concerns. Currently taking Carafate 1 gram QID and Prevacid 30 mg daily for GERD and ongoing GI issues. Taking Mybetriq 50 mg mg daily and Ditropan XL 10 mg daily for urinary incontinence. Follows with Urology, Dr. Parks. Hem/Onc: Hx of ovarian cancer, cancer free. Previously followed with Dr. Landers. Thyroid: Taking Synthroid 125 mcg once daily. Stable on this dosage and denies missing dosages often, maybe occasional. HTN: Checking BP at home, reports her readings vary. Last night her reading was 139/73, earlier that day 109-60's. Has been dealing with issues with chest pain, sob and dizziness. Have some issues with a-fib. Follows with [facility], who's been doing cardiac testing on her. Is on Altace 10 mg daily, HCTZ 12.5 mg daily, Lasix 40 mg half pill BID and Potassium 20 mEq daily. She is no longer on Atenolol, changed to Coreg 6.25 mg 1 pill BID. In Cardio notes she was to decrease Ramipril to 5 mg daily. Was admitted in August and September for dizziness and SOB to [facility]. Had heart cath done in September for angina. She is scheduled to see Cardio in [place] for further evaluation. CKD: monitored with labs. Vit D: Deficient, monitoring through routine labs. Takes Vit D 50,000 international unit(s) once weekly. Lipid/CAD: Recent heart cath done at [facility] by Cardiology on 10/02/24. Taking Crestor 40 mg daily and Niacin ER 500 mg BID. Per last OV from Cardio she was to decrease her regimen to 20 mg daily. Tries to watch diet, working on losing weight. Started out at 220 lbs over a year ago, now 190 lbs. Denies much exercise due to her back and arthritis pain. Does try to walk as much as she can. A-fib/PE/DVT: Currently on Eliquis 5 mg 1 pill BID. Notes some issues with afib acting up. Is following with Cardiology due to ongoing issues of feeling tired and pressure in her head. Arthritis/Back pain: Reports increased arthritis pain. Also has back issues. Taking Tizanidine 4 mg prn and Tylenol 500 mg 2 tabs po prn. Using a cane with ambulating. Bump: to finger of left hand, no pain or drainage. Past medical history, appointments, medications, allergies reviewed. [...] 2 levels APPENDECTOMY CABG, ARTERIAL, FOUR+ 02/26/2000 CARDIOVERSION N/A 03/21/2023 COLONOSCOPY 09/27/2004 COLONOSCOPY FLX DX W/COLLJ SPEC WHEN PFRMD 12/07/2014 Colonoscopy ESOPHAGOGASTRODUODENOSCOPY TRANSORAL DIAGNOSTIC 01/23/2012 EGD HEART SURGERY HX LIG/TRNSXJ FLP TUBE ABDL/VAG APPR UNI/BI NEUROPLASTY AND/TRANSPOS MEDIAN NRV CARPAL TUNNE 09/11/2014 Left CTR NEUROPLASTY AND/TRANSPOSITION ULNAR NERVE ELBOW 09/11/2014 Ulnar nerve decompression left elbow OOPHORECTOMY PARTIAL/TOTAL UNI/BI 10/19/2007 Ovarian cancer, [place] [facility] PAST SURGICAL HISTORY OF 05/28/1973 first rib on the left side removed. RETRIEV INTRAVASC FOREGN BODY 02/26/2012 IVC REMOVAL S SLING BLADR MCNEIL TOTL 4821 10/26/2005 Obtyrex midurethral sling [...] Hypertension Sister Hypertension Brother Patient Allergies ALLERGIES All (more content not included)... Normal [facility] 25(OH)D3 SerPl-ncon 2024 25-hydroxyvitamin D3 [Mass/Vol] 82.6 ng/mL High 31.0-80.0 [facility] Comment on above: Order Comment: Speci men Type: BLOOD SPECIMEN Ordering Facility: [facility] Address: [address] [place] [address] Performed By: #### 1 989-3 #### [facility] CLIA [id number] [address] [place] [address] [place] Comprehensive metabolic 2000 panelon 10-13-2024 Albumin [Mass/Vol] 4.3 g/dL Normal 3.9-4.9 [facility] Comment on above: Order Comment: Speci men Type: BLOOD SPECIMEN Ordering Facility: [facility] Address: [address] [place] [address] Performed By: #### 2 4323-8, 61769-1, 3016-3 #### [facility] CLIA [id number] [address] [place] [address] [place] ALP [Catalytic activity/Vol] 54 U/L Normal 34-123 [facility] Comment on above: Order Comment: Speci men Type: BLOOD SPECIMEN Ordering Facility: [facility] Address: [address] [place] [address] Performed By: #### 2 4323-8, 20641-8, 3016-3 #### [facility] CLIA [id number] [address] [address] [place] ALT [Catalytic activity/Vol] 15 U/L Normal 7-38 [facility] Comment on above: Order Comment: Speci men Type: BLOOD SPECIMEN Ordering Facility: [facility] Address: [address] [place] [address] Performed By: #### 2 4323-8, 62519-4, 3015-3 #### [facility] CLIA [id number] [address] [address] [place] Anion gap [Moles/Vol] 10 mmol/L Normal 8-15 [facility] Comment on above: Order Comment: Speci men Type: BLOOD SPECIMEN Ordering Facility: [facility] Address: [address] [place] [address] Performed By: #### 2 4323-8, 05790-0, 3 #### [facility] CLIA [id number] [address] [place] [id number] [place] AST [Catalytic activity/Vol] 21 U/L Normal 13-35 [facility] Comment on above: Order Comment: Speci men Type: BLOOD SPECIMEN Ordering Facility: [facility] Address: [address] [place] [address] Performed By: #### 2 4323-8, 51009-2, 3 #### [facility] CLIA [id number] [address] [place] [place] [id number] [place] Bilirubin [Mass/Vol] 0.6 mg/dL Normal 0.2-1.3 [facility] Comment on above: Order Comment: Speci men Type: BLOOD SPECIMEN Ordering Facility: [facility] Address: [address] [place], [place] [id number] Performed By: #### 2 4323-8, 12425-3, 3015-3 #### [facility] CLIA [id number] [address] [place] [address] [place] Calcium [Mass/Vol] 10.9 mg/dL High 8.5-10.2 [facility] Comment on above: Order Comment: Speci men Type: BLOOD SPECIMEN Ordering Facility: [facility] Address: [address] [place] [address] Performed By: #### 2 4323-8, 11189-9, 3016-3 #### [facility] CLIA [id number] [address] [place] [address] [place] Chloride [Moles/Vol] 101 mmol/L Normal 98-107 [facility] Comment on above: Order Comment: Speci men Type: BLOOD SPECIMEN Ordering Facility: [facility] Address: [address] [place] [address] Performed By: #### 2 4323-8, 75926-6, 3015-3 #### [facility] CLIA [id number] [address] [place] [address] [place] CO2 [Moles/Vol] 26 mmol/L Normal 22-30 [facility] Comment on above: Order Comment: Speci men Type: BLOOD SPECIMEN Ordering Facility: [facility] Address: [address] [place] [address] Performed By: #### 2 4323-8, 20931-9, 6-3 #### [facility] CLIA [id number] [address] [place] [address] [place] Creatinine [Mass/Vol] 1.58 mg/dL High 0.58-0.96 [facility] Comment on above: Order Comment: Speci men Type: BLOOD SPECIMEN Ordering Facility: [facility] Address: [address] [place] [address] Performed By: #### 2 4323-8, 49811-0, 3016-3 #### [facility] CLIA [id number] [address] [place], [place] [id number] [place] Creatinine and Glomerular filtration rate.predicted panel (S/P/Bld) 32 mL/min/1.73m??? Low >=60 [facility] Comment on above: Order Comment: Steph wiggins Type: BLOOD SPECIMEN Ordering Facility: [facility] Address: [address] [place] [address] Result Comment: Mary mated Glomerular Filtration Rate (eGFR) is calculated using the 2020 CKD-EPI creatinine equation. This equation utilizes serum creatinine, sex, and age as parameters. The creatinine assay has traceable calibration to isotope dilution-mass spectrometry. Refer to KDIGO guidelines for clinical interpretation. In patients with unstable renal function, e.g. those with acute kidney injury, the eGFR may not accurately reflect actual GFR. Performed By: #### 2 4323-8, 91545-7, 6-3 #### [facility] CLIA [id number] [address] [place] [address] [place] Glucose [Mass/Vol] 99 mg/dL Normal 74-99 [facility] Comment on above: Order Comment: Steph wiggins Type: BLOOD SPECIMEN Ordering Facility: [facility] Address: [address] [place] [address] Result Comment: The [place] Diabetes Association (ADA) provides guidance for cutoff values for fasting glucose and random glucose. The ADA defines fasting as no caloric intake for at least 8 hours. Fasting plasma glucose results between 100 to 125 mg/dL indicate increased risk for diabetes (prediabetes). Fasting plasma glucose results greater than or equal to 126 mg/dL meet the criteria for diagnosis of diabetes. In the absence of unequivocal hyperglycemia, results should be confirmed by repeat testing. In a patient with classic symptoms of hyperglycemia or hyperglycemic crisis, random plasma glucose results greater than or equal to 200 mg/dL meet the criteria for diagnosis of diabetes. Reference: Standards of Medical Care in Diabetes 2016, [place] Diabetes Association. Diabetes Care. 2016.39(Suppl 1). Performed By: #### 2 4323-8, 49964-7, 6-3 #### [facility] CLIA [id number] [address] [place] [address] [place] Potassium [Moles/Vol] 5.0 mmol/L Normal 3.7-5.1 [facility] Comment on above: Order Comment: Speci men Type: BLOOD SPECIMEN Ordering Facility: [facility] Address: [address] [place] [address] Performed By: #### 2 4323-8, 45337-1, 3015-3 #### [facility] CLIA [id number] [address] [place] [address] [place] Protein [Mass/Vol] 6.6 g/dL Normal 6.3-8.0 [facility] Comment on above: Order Comment: Speci men Type: BLOOD SPECIMEN Ordering Facility: [facility] Address: [address] [place] [address] Performed By: #### 2 4323-8, 02724-3, 3015-3 #### [facility] CLIA [id number] [address] [place] [address] [place] Sodium [Moles/Vol] 137 mmol/L Normal 136-144 [facility] Comment on above: Order Comment: Speci men Type: BLOOD SPECIMEN Ordering Facility: [facility] Address: [address] [place] [address] Performed By: #### 2 4323-8, 82241-6, 3015-3 #### [facility] CLIA [id number] [address] [place] [address] [place] Urea nitrogen [Mass/Vol] 25 mg/dL High 7-21 [facility] Comment on above: Order Comment: Speci men Type: BLOOD SPECIMEN Ordering Facility: [facility] Address: [address] [place], [place] [id number] Performed By: #### 2 4323-8, 41767-2, 3015-3 #### [facility] CLIA [id number] [address] [place] [address] [place] Lipid 1996 panelon 5 Cholesterol [Mass/Vol] 135 mg/dL Normal <200 [facility] Comment on above: Order Comment: Alanai men Type: BLOOD SPECIMEN Ordering Facility: [facility] Address: [address] [place] [address] Result Comment: <200 mg/dL, Desirable 200-239 mg/dL, Borderline high >239 mg/dL, High Performed By: #### 2 4323-8, 30955-6, 3015-3 #### [facility] CLIA [id number] [address] [place] [address] [place] Cholesterol in HDL [Mass/Vol] 50 mg/dL Normal >39 [facility] Comment on above: Order Comment: Steph wiggins Type: BLOOD SPECIMEN Ordering Facility: [facility] Address: [address] [place] [address] Result Comment: 40-5 9 mg/dL, Acceptable >59 mg/dL, High: Negative risk factor for coronary heart disease <40 mg/dL, Low: Positive risk factor for coronary heart disease Performed By: #### 2 4323-8, 40670-5, 3015-3 #### [facility] CLIA [id number] [address] [place] [address] [place] Cholesterol in LDL [Mass/Vol] 57 mg/dL Normal <100 [facility] Comment on above: Order Comment: Steph wiggins Type: BLOOD SPECIMEN Ordering Facility: [facility] Address: [address] [place] [address] Result Comment: <100 mg/dL, Optimal 100-129 mg/dL, Near optimal/above optimal 130-159 mg/dL, Borderline high 160-189 mg/dL, High >189 mg/dL, Very high Secondary prevention optimal LDL Cholesterol levels are recommended to be <70 mg/dL LDL cholesterol is calculated using the Vanegas-NIH equation. Performed By: #### 2 4323-8, 86929-3, 3015-3 #### [facility] CLIA [id number] [address] [place] [id number] [place] Cholesterol in LDL/Cholesterol in HDL [Mass ratio] 1.14 {ratio} Normal <2.54 [facility] Comment on above: Order Comment: Steph wiggins Type: BLOOD SPECIMEN Ordering Facility: [facility] Address: [address] [place] [address] Result Comment: Albina costello: 1. National Cholesterol Education Program ATP III Guideline At-A-Glance Quick Desk Reference: National Heart, Lung, and Blood [place]. National Institutes of Health. 2001: NIH Publication No. 01-3305. 2. An International Atherosclerosis Society position paper: global recommendations for the management of dyslipidemia: executive summary, Atherosclerosis. 2014: 232(2):410-413. Performed By: #### 2 4323-8, 36204-6, 3016-3 #### [facility] CLIA [id number] [address] [place] [address] [place] Cholesterol in VLDL [Mass/Vol] 24 mg/dL Normal <30 [facility] Comment on above: Order Comment: Steph wiggins Type: BLOOD SPECIMEN Ordering Facility: [facility] Address: [address] [place] [address] Performed By: #### 2 4323-8, 93463-2, 3016-3 #### [facility] CLIA [id number] [address] [place] [address] [place] Cholesterol non HDL [Mass/Vol] 85 mg/dL Normal <130 [facility] Comment on above: Order Comment: Steph wiggins Type: BLOOD SPECIMEN Ordering Facility: [facility] Address: [address] [place] [address] Result Comment: <130 mg/dL, Optimal 130-159 mg/dL, Near optimal/above optimal 160-189 mg/dL, Borderline high 190-219 mg/dL, High >219 mg/dL, Very high Secondary prevention optimal non HDL Cholesterol levels are recommended to be <100 mg/dL Performed By: #### 2 4323-8, 52751-8, 3016-3 #### [facility] CLIA [id number] [address] [place] [address] [place] Cholesterol.total/Chol esterol in HDL [Mass ratio] 2.70 {ratio} Normal <5.10 [facility] Comment on above: Order Comment: Speci men Type: BLOOD SPECIMEN Ordering Facility: [facility] Address: [address] [place] [address] Performed By: #### 2 4323-8, 87108-9, 3015-3 #### [facility] CLIA [id number] [address] [place] [address] [place] FASTING TIME 12 hrs Normal [facility] Comment on above: Order Comment: Speci men Type: BLOOD SPECIMEN Ordering Facility: [facility] Address: [address] [place] [address] Performed By: #### 2 4323-8, 43084-6, 3 #### [facility] CLIA [id number] [address] [place] [address] [place] Triglyceride [Mass/Vol] 170 mg/dL High <150 [facility] Comment on above: Order Comment: Speci men Type: BLOOD SPECIMEN Ordering Facility: [facility] Address: [address] [place] [address] Result Comment: <150 mg/dL, Normal 150-199 mg/dL, Borderline high 200-499 mg/dL, High >499 mg/dL, Very high Performed By: #### 2 4323-8, 59816-6, 3 #### [facility] CLIA [id number] [address] [place] [address] [place] TSH SerPl-aCncon 10-13-2024 TSH Qn 0.690 m[IU]/L Normal 0.270-4.20 0 [facility] Comment on above: Order Comment: Speci men Type: BLOOD SPECIMEN Ordering Facility: [facility] Address: [address] [place] [address] Performed By: #### 2 4323-8, 94115-7, 3 #### [facility] CLIA [id number] [address] [place] [address] [place] 12 Lead EKGon 10-06-2024 12 Lead EKG [facility] [address] [place] [address] 12 Lead EKG 10/06/24 1221 MR#: [id number] Acct: [id number] Name: SANDRINE RIVERS Rep #: [id number] : 1940 84 From: Krys Cedillo MD Attending Dr: Status: DEP ER Ordering Dr: Valdez Toney MD Date: 10/06/24 Location: ED Sex: F C Admitted: Test Reason : HEART RATE Blood Pressure : */* mmHG Vent. Rate : 91 BPM Atrial Rate : * BPM P-R Int : * ms QRS Dur : 78 ms QT Int : 334 ms P-R-T Axes : * 8 193 degrees QTcB Int : 410 ms Atrial fibrillation with premature ventricular or aberrantly conducted complexes ST T wave abnormality, consider anterolateral ischemia Abnormal ECG Confirmed by Krys Cedillo ([id number]), legal editor INDIRA HUMPHREYS ([id number]) on 10/07/2024 9:12:27 AM Referred By: Confirmed By: Krys Cedillo 10/07/24 0912 Date Krys Cedillo MD CC: Dr. Valdez Toney MD; Dr. Samantha Reyes MD Signed Normal [facility] Absolute lymphocyte countOrd ered By: ED PROVIDER on 10-06-2024 Lymphocytes Auto (Unsp spec) [#/Vol] 2.28 10*3/uL 0.83-4.51 [facility] Absolute neutrophil countOrd ered By: ED PROVIDER on 10-06-2024 Neutrophils (Bld) [#/Vol] 4.4 10*3/uL 2.0-7.7 [facility] Anion gap in Serum or Plasma Ordered By: ED PROVIDER on 10-06-2024 Anion gap [Moles/Vol] 9 mmol/L 5-15 [facility] Automated lymphocyte count a s percentage of total leukocytesOrdered By: ED PROVIDER on 10-06-2024 Lymphocytes/100 WBC Auto (Unsp spec) 30.0 % 19-41 [facility] BUN/creatinine ratioOrdered By: ED PROVIDER on 10-06-2024 Urea nitrogen/Creatinine [Mass ratio] 17.9 mg/mg - [facility] Basic Metabolic Profile (BMP )on 10-06-2024 BUN/CRE 17.9 RATIO Normal 03-16 [facility] Comment on above: Performed By: #### L 501.4021, L500.2500, L100.0100 ####[facility] [address] [place], [address] Calcium [Mass/Vol] 10.3 mg/dL Normal 7.6-11.0 [facility] Comment on above: Performed By: #### L 501.4021, L500.2500, L100.0100 ####[facility] [address] [place], [address] Chloride [Moles/Vol] 104 mmol/L Normal 98-108 [facility] Comment on above: Performed By: #### L 501.4021, L500.2500, L100.0100 ####[facility] [address] [place], [address] CO2 [Moles/Vol] 23.5 mmol/L Normal 21.0-32.0 [facility] Comment on above: Performed By: #### L 501.4021, L500.2500, L100.0100 ####[facility] [address] [place], [address] Creatinine [Mass/Vol] 1.35 mg/dL High 0.70-1.20 [facility] Comment on above: Performed By: #### L 501.4021, L500.2500, L100.0100 ####[facility] [address] [place], [address] ECRCL 32.27 ml/min Low 50-250 [facility] Comment on above: Performed By: #### L 501.4021, L500.2500, L100.0100 ####[facility] [address] [place], [address] GAP 9 Normal 5-15 [facility] Comment on above: Performed By: #### L 501.4021, L500.2500, L100.0100 ####[facility] [address] [place], [address] GFR/1.73 sq M.predicted among non-blacks MDRD (S/P/Bld) [Vol rate/Area] 39 mL/min/{1.73_m2} Low >60 [facility] Comment on above: Result Comment: mL/m in/1.73m2 CKD-EPI Creatinine Equation (2020) Performed By: #### L 501.4021, L500.2500, L100.0100 ####[facility] [address] [place], [address] Glucose [Mass/Vol] 100 mg/dL High 70-99 [facility] Comment on above: Performed By: #### L 501.4021, L500.2500, L100.0100 ####[facility] [address] [place], [address] Potassium [Moles/Vol] 4.7 mmol/L Normal 3.3-5.1 [facility] Comment on above: Performed By: #### L 501.4021, L500.2500, L100.0100 ####[facility] [address] [place], [address] Sodium [Moles/Vol] 137 mmol/L Normal 133-145 [facility] Comment on above: Performed By: #### L 501.4021, L500.2500, L100.0100 ####[facility] [address] [place], [address] Urea nitrogen [Mass/Vol] 24 mg/dL High 4-19 [facility] Comment on above: Performed By: #### L 501.4021, L500.2500, L100.0100 ####[facility] [address] [place], [address] Basophil percentageOrdered B y: ED PROVIDER on 10-06-2024 Basophils/100 WBC (Bld) 0.7 % 0-1 [facility] CBC W/Diff, Automatedon 09-25 Absolute Lymph 2.28 X10 3/uL Normal 0.83-4.51 [facility] Comment on above: Performed By: #### L 501.4021, L500.2500, L100.0100 ####[facility] [address] [place], [address] Absolute Neut 4.4 X10 3/uL Normal 2.0-7.7 [facility] Comment on above: Performed By: #### L 501.4021, L500.2500, L100.0100 ####[facility] [address] [place], [address] Basophils/100 WBC (Bld) 0.7 % Normal 0-1 [facility] Comment on above: Performed By: #### L 501.4021, L500.2500, L100.0100 ####[facility] [address] [place], [address] Eosinophils/100 WBC (Bld) 2.0 % Normal 0-5 [facility] Comment on above: Performed By: #### L 501.4021, L500.2500, L100.0100 ####[facility] [address] [place], [address] Erythrocyte distribution width (RBC) [Ratio] 12.6 % Normal 11.6-14.6 [facility] Comment on above: Performed By: #### L 501.4021, L500.2500, L100.0100 ####[facility] [address] [place], [address] Hematocrit (Bld) [Volume fraction] 37.6 % Normal 37-47 [facility] Comment on above: Performed By: #### L 501.4021, L500.2500, L100.0100 ####[facility] [address] [place], [address] Hemoglobin (Bld) [Mass/Vol] 11.9 g/dL Low 12.0-15.0 [facility] Comment on above: Performed By: #### L 501.4021, L500.2500, L100.0100 ####[facility] [address] [place], [address] IG% 0.500 Normal 0.0-0.9 [facility] Comment on above: Result Comment: IG% - Immature Granulocytes (promyelocytes, myelocytes and metamyelocytes) > 1% indicates that a LEFT SHIFT is Present. Performed By: #### L 501.4021, L500.2500, L100.0100 ####[facility] [address] [place], [address] Lymphocytes/100 WBC (Bld) 30.0 % Normal 19-41 [facility] Comment on above: Performed By: #### L 501.4021, L500.2500, L100.0100 ####[facility] [address] [place], [address] MCH (RBC) [Entitic mass] 28.1 pg Normal 27.0-32.0 [facility] Comment on above: Performed By: #### L 501.4021, L500.2500, L100.0100 ####[facility] [address] [place], [address] MCHC (RBC) [Mass/Vol] 31.6 g/dL Low 32-36 [facility] Comment on above: Performed By: #### L 501.4021, L500.2500, L100.0100 ####[facility] [address] [place], [address] MCV (RBC) [Entitic vol] 88.9 fL Normal 81-99 [facility] Comment on above: Performed By: #### L 501.4021, L500.2500, L100.0100 ####[facility] [address] [place], [address] Monocytes/100 WBC (Bld) 9.5 % Normal 0-10 [facility] Comment on above: Performed By: #### L 501.4021, L500.2500, L100.0100 ####[facility] [address] [place], [address] Neutrophils/100 WBC (Bld) 57.3 % Normal 47-70 [facility] Comment on above: Performed By: #### L 501.4021, L500.2500, L100.0100 ####[facility] [address] [place], [address] Nucleated RBC (Bld) [#/Vol] 0 10*3/uL Normal 0-5 [facility] Comment on above: Performed By: #### L 501.4021, L500.2500, L100.0100 ####[facility] [address] [place], [address] Platelet mean volume (Bld) [Entitic vol] 11.0 fL Normal 6.2-12.0 [facility] Comment on above: Performed By: #### L 501.4021, L500.2500, L100.0100 ####[facility] [address] [place], [address] Platelets (Bld) [#/Vol] 240 10*3/uL Normal 150-450 [facility] Comment on above: Performed By: #### L 501.4021, L500.2500, L100.0100 ####[facility] [address] [place], [address] RBC (Bld) [#/Vol] 4.23 10*6/uL Normal 4.2-5.4 [facility] Comment on above: Performed By: #### L 501.4021, L500.2500, L100.0100 ####[facility] [address] [place], [address] RDW SD 41.1 fl Normal 35.1-43.9 [facility] Comment on above: Performed By: #### L 501.4021, L500.2500, L100.0100 ####[facility] [address] [place], [address] WBC (Bld) [#/Vol] 7.6 10*3/uL Normal 4.4-11.0 [facility] Comment on above: Performed By: #### L 501.4021, L500.2500, L100.0100 ####[facility] [address] [place], [address] Carbon dioxide, total [Moles /volume] in Central venous bloodOrdered By: ED PROVIDER on 10-06-2024 CO2 [Moles/Vol] 23.5 mmol/L 21.0-32.0 [facility] Chest 1 View (Portable)on Chest 1 View (Portable) [facility] Imaging Services [address] [place] [address] Chest 1 View (Portable) MR#: [id number] Acct: [id number] Name: SANDRINE RIVERS Rep #: [id number] : 1940 F 84 From: Mervin Michelle PCP: Dr. Samantha Reyes MD Status: DEP ER Study: Chest 1 View (Portable) Date of Exam: 10/06/24 Exam# [id number] Ordering Dr: Valdez Toney MD PROCEDURE: CHEST 1 VIEW (PORTABLE) 10/06/2024 REASON FOR EXAM: SOB TECHNIQUE: Frontal view of the chest. COMPARISON: Chest x-ray 09/15/2024. RAD/Chest 1 View (Portable) IMPRESSION: The cardiomediastinal silhouette is stable, with postsurgical changes again noted. Lungs appear clear of acute disease. No pleural effusion or pneumothorax is evident. No interval osseous changes seen. No evidence of acute cardiopulmonary disease. Reading Location: [place] [address] CC: Dr. Valdez Toney MD; Dr. Samantha Reyes MD Chief Vendor Quality: Signed Normal [facility] Chloride assayOrdered By: ED PROVIDER on 10-06-2024 Chloride [Moles/Vol] 104 mmol/L 98-108 [facility] Emergency Department Summary on 10-06-2024 Emergency Department Summary [facility] Medical Records Department [address] [place] [address] Emergency Department Summary 10/06/24 MR#: [id number] Acct: [id number] Name: SANDRINE RIVERS Rep #: [id number] : 1940 84 From: Valdez Toney MD PCP: Dr. Samantha Reyes MD Status:REG ER Location: ED HPI History of Present Illness Chief Complaint: Shortness of Breath Informant: patient Narrative Narrative: Patient has a history of congestive heart failure and paroxysmal atrial fibrillation, she states she is chronically dyspneic with exertion, but it was worse this morning and every time she would stand up or exert herself she would feel lightheaded sometimes near syncopal but never had syncopal episode. No chest discomfort or heaviness. No palpitations or headache. She states he has felt like this when she is in A-fib before, she did not know she was in A-fib and that she came here to the ER and had an EKG that showed that, she states she typically feels it and knows when she is in A-fib. She states she felt fine yesterday, walking around did not make her nearly as dyspneic as she has been today. She denies any leg edema. She states she is supposed to be sent to [facility] at some point for a valve replacement, according to her lens inspector Dr. Naik. She is not sure which valve. [facility] Medical History Aortic stenosis Atrial fibrillation Dyslipidemia Hypertension Coronary artery disease History of cardioversion Anticoagulant long-term use Fatigue Chest heaviness Dyspnea Overactive bladder Pure hypercholesterolemia Essential hypertension Small bowel obstruction Chest pain Chest pain due to CAD Left-sided pyelonephritis History of acute myocardial infarction of anterolateral wall (02/2000) History of pulmonary embolism History of DVT (deep vein thrombosis) Paroxysmal atrial fibrillation Atherosclerotic heart disease of 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 coronary artery without angina pectoris Ovarian cancer ivc filter retreval Pericardial effusion Hypothyroid GERD (gastroesophageal reflux disease) Stress incontinence Pulmonary emboli Other mcc (current) drug therapy Ovarian cancer Dyspnea on exertion Wide-complex tachycardia Home Medications ???Medication ???Instructions ???Recorded ???Last Taken ???Type mirabegron 50 mg tablet,extended 50 mg PO DAILY 10/04/21 Unknown Hi story release 24 hr lansoprazole 30 mg capsule,delayed 30 mg PO DAILY 02/03/22 Unknown History release aspirin 81 mg tablet,delayed 81 mg PO DAILY 08/11/22 10/02/24 H istory release (Adult Low Dose Aspirin) niacin 500 mg tablet,extended 500 mg PO BID #180 tabs 01/19/23 U nknown Rx release 24 hr levothyroxine 125 mcg tablet 125 mcg PO DAILY 02/01/23 Unknown History sucralfate 1 gram tablet 1 g PO QACHS 02/01/23 Unknown Hist ory nitroglycerin 0.4 mg sublingual 0.4 mg sublingual Q5M PRN Chest Unknown Rx tablet Pain #25 tabs potassium chloride 20 mEq 20 meq PO DAILY #90 tabs 03/15/23 Unknown Rx tablet,extended release calcium carbonate (Calcium 600) 600 mg PO DAILY 04/13/23 Unknown H istory acetaminophen 500 mg capsule 500 mg PO Q6H PRN fever or pain Unknown History albuterol sulfate 90 mcg/actuation 2 puff inhalation Q6H PRN Unknown History aerosol inhaler shortness of breath or wheezing oxybutynin chloride 10 mg 10 mg PO QDAY 08/22/23 Unknown His tory tablet,extended release 24 hr cholecalciferol (vitamin D3) 1,250 1,250 mcg PO QWEEK 03/24/24 Unkn own History mcg (50,000 unit) capsule rosuvastatin 20 mg tablet 20 mg PO BID 03/24/24 Unknown Hist ory spironolactone 25 mg tablet 25 mg PO QDAY #30 tabs 04/22/24 Un known Rx amlodipine 2.5 mg tablet 2.5 mg PO QDAY #90 tabs 09/09/24 U nknown Rx hydrochlorothiazide 12.5 mg tablet 12.5 mg PO QDAY 09/09/24 Unknown History ramipril 5 mg capsule 5 mg PO QDAY #90 caps 09/09/24 Unk nown Rx apixaban 5 mg tablet (Eliquis) 5 mg PO BID 10/02/24 09/29/24 Hist ory carvedilol 6.25 mg tablet 6.25 mg PO BID #60 tabs 10/02/24 U nknown Rx Allergy/AdvReac Type Severity Reaction Status Date / Time poison araceli extract Allergy Itching Verified 10/06/24 12:10 poison oak extract Allergy Itching Verified 10/06/24 12:10 streptokinase (Streptokinase) AdvReac Severe Hives Verified 10/06/24 12:10 Family History Brother Hypertension Cancer Mother CVA (cerebral vascular accident) Hypertension Surgical History Stented coronary artery (10/18/07) H/O coronary artery bypass surgery ( 02/2000) History of back surgery Hx of appendectomy History of hysterectomy History of thyroidectomy Social His (more content not included)... Normal [facility] Eosinophil percentageOrdered By: ED PROVIDER on 10-06-2024 Eosinophils/100 WBC (Bld) 2.0 % 0-5 [facility] Erythrocyte distribution wid th ratioOrdered By: ED PROVIDER on 10-06-2024 Erythrocyte distribution width (RBC) [Ratio] 12.6 % 11.6-14.6 [facility] Erythrocyte distribution wid th standard deviationOrdered By: ED PROVIDER on 10-06-2024 Erythrocyte distribution width (RBC) [Ratio] 41.1 fl 35.1-43.9 [facility] Glomerular filtration rate ( GFR) estimation/1.73 sq m using serum, plasma, or whole bOrdered By: ED PROVIDER on 10-06-2024 GFR/1.73 sq M.predicted among non-blacks MDRD (S/P/Bld) [Vol rate/Area] 39 mL/min/{1.73_m2} Low >60 [facility] Comment on above: mL/min/1.73m2 CKD-EP I Creatinine Equation (2020) Hematocrit Auto (Bld) [Volum e fraction]Ordered By: ED PROVIDER on 10-06-2024 Hematocrit (Bld) [Volume fraction] 37.6 % 37-47 [facility] Hemoglobin measurementOrdere d By: ED PROVIDER on 10-06-2024 Hemoglobin (Bld) [Mass/Vol] 11.9 g/dL Low 12.0-15.0 [facility] Immature granulocytes/100 WB C Auto (Bld)Ordered By: ED PROVIDER on 10-06-2024 Immature granulocytes/100 WBC (Bld) 0.500 % 0.0-0.9 [facility] Comment on above: IG% - Immature Granu locytes (promyelocytes, myelocytes and metamyelocytes) > 1% indicates that a LEFT SHIFT is Present. L499.0042on 10-06-2024 Trop T High Sen 17 ng/L High <=14 [facility] Comment on above: Performed By: #### L 499.0042 #### [facility] Laboratory [address] [facility] [place], [address] L499.0043on 10-06-2024 Trop T High Sen 18 ng/L High <=14 [facility] Comment on above: Performed By: #### L 499.0043 ####[facility] [address] [place], [address] L501.4021on 10-06-2024 Trop T High Sen 20 ng/L High <=14 [facility] Comment on above: Performed By: #### L 501.4021, L500.2500, L100.0100 ####[facility] [address] [place], [address] MCV (mean corpuscular volume ) determinationOrdered By: ED PROVIDER on 10-06-2024 MCV (RBC) [Entitic vol] 88.9 fL 81-99 [facility] Mean corpuscular hemoglobin (MCH) determinationOrdered By: ED PROVIDER on 10-06-2024 MCH (RBC) [Entitic mass] 28.1 pg 27.0-32.0 [facility] Mean corpuscular hemoglobin concentration (MCHC) determinationOrdered By: ED PROVIDER on 10-06-2024 MCHC (RBC) [Mass/Vol] 31.6 g/dL Low 32-36 [facility] Mean platelet volume determi nationOrdered By: ED PROVIDER on 10-06-2024 Platelet mean volume (Bld) [Entitic vol] 11.0 fL 6.2-12.0 [facility] Monocyte percentageOrdered B y: ED PROVIDER on 10-06-2024 Monocytes/100 WBC (Bld) 9.5 % 0-10 [facility] Neutrophil percentageOrdered By: ED PROVIDER on 10-06-2024 Neutrophils/100 WBC (Bld) 57.3 % 47-70 [facility] Nucleated red blood cell per centageOrdered By: ED PROVIDER on 10-06-2024 Nucleated RBC/100 WBC (Bld) [Ratio] 0 % 0-5 [facility] Platelet countOrdered By: ED PROVIDER on 10-06-2024 Platelets (Bld) [#/Vol] 240 10*3/uL 150-450 [facility] Potassium measurement (mass/ volume)Ordered By: ED PROVIDER on 10-06-2024 Potassium (Unsp spec) [Mass/Vol] 4.7 mmol/L 3.3-5.1 [facility] RBC Auto (Bld) [#/Vol]Ordere d By: ED PROVIDER on 10-06-2024 RBC (Bld) [#/Vol] 4.23 10*6/uL 4.2-5.4 [facility] Serum creatinine measurement (mass/volume)Ordered By: ED PROVIDER on 10-06-2024 Creatinine [Mass/Vol] 1.35 mg/dL High 0.70-1.20 [facility] Serum glucose measurement (m ass/volume)Ordered By: ED PROVIDER on 10-06-2024 Glucose [Mass/Vol] 100 mg/dL High 70-99 [facility] Serum or plasma calcium nancy urement (mass/volume)Ordered By: ED PROVIDER on 10-06-2024 Calcium [Mass/Vol] 10.3 mg/dL 7.6-11.0 [facility] Serum or plasma urea nitroge n measurement (mass/volume)Ordered By: ED PROVIDER on 10-06-2024 Urea nitrogen [Mass/Vol] 24 mg/dL High 4-19 [facility] Sodium levelOrdered By: ED P ROVIDER on 10-06-2024 Sodium [Moles/Vol] 137 mmol/L 133-145 [facility] Troponin T.cardiac [Mass/vol ume] in Serum or Plasma by High sensitivity methodOrdered By: Valdez Toney on 10-06-2024 Troponin T.cardiac High sensitivity method [Mass/Vol] 18 ng/L High <14 [facility] Troponin T.cardiac High sensitivity method [Mass/Vol] 17 ng/L High <14 [facility] Troponin T.cardiac [Mass/vol ume] in Serum or Plasma by High sensitivity methodOrdered By: ED PROVIDER on 10-06-2024 Troponin T.cardiac High sensitivity method [Mass/Vol] 20 ng/L High <14 [facility] White blood cell (WBC) count Ordered By: ED PROVIDER on 10-06-2024 WBC (Bld) [#/Vol] 7.6 10*3/uL 4.4-11.0 [facility] Cardiac Cath Diagnosticon Cardiac Cath Diagnostic [facility] Imaging Services [address] [place] [address] Cardiac Cath Diagnostic MR#: [id number] Acct: [id number] Name: SANDRINE RIVERS Rep #: [id number] : 1940 84 From: Gorge Naik MD PCP: Dr. Samantha Reyes MD Status:[facility] Patient Name: SANDRINE RIVERS Study Date: 10/02/2024 Performing: Gorge Naik MD Ht: 64 inches 162.56 cm : 1940 Wt: 181.99 lbs 82.55 kg Age: 84 Gender: female BSA: 1.88 PROCEDURE(S) PERFORMED DC04-(62737)LHC/COR/CABG CLINICAL PROFILE AND INDICATIONS Indications: Worsening Angina Heart Failure: NYHA Class: 2, Newly Diagnosed: Yes, Heart Failure Type: Systolic Stress/Imaging Stress Test w/SPECT MPI: Yes Result: NegativeStress Test with SPECT MPI: Negative CAD Presentations: Other: Dyspnea CONCLUSIONS 40% ISR Mid LAD. Proz stent widely patent: SVG to D1 patent RECOMMENDATIONS Medical therapy Risk factor modification DESCRIPTION OF PROCEDURE The patient arrived to the procedure lab. The risks and benefits of the procedure as well as a full description of our services here and current unavailability of surgical backup were fully explained to the patient and/or their significant other prior to the catheterization. The Timeout was completed, verifying the correct patient and procedure. The patient's procedural site was prepped and draped in the usual fashion. Local anesthetic was given subcutaneously to right radial region with Lidocaine 2%. Using a modified Seldinger technique, arterial access was obtained via the right radial artery, a 6Fr sheath was inserted. Left Coronary Artery selective angiography was performed in multiple views using a 5 Fr. 4.0 [place] catheter. Right Coronary Artery selective angiography was then performed in multiple views using a 5 Fr. 4.0 [place] catheter. Saphenous Vein graft to the DIAG 1 selective angiography was performed in multiple views using a 5 Fr. 4.0 [place] catheter.The arterial sheath was pulled and a TR Band was applied for hemostasis. 14cc of air CORONARY ANGIOGRAPHY DOMINANCE: Right Dominant LEFT MAIN: Tubular 30% Distal lesion in LMCA LEFT ANTERIOR DESCENDING ARTERY: LAD: Tubular 40% Mid lesion in LAD CIRCUMFLEX ARTERY: Angiographically normal RAMUS: Angiographically normal RIGHT CORONARY ARTERY: Angiographically normal GRAFTS: SVG Graft to DIAG1 COMPLICATIONS No Complications PROCEDURE MEDICATIONS Fentanyl 50 mcg IV Versed 1 mg IV Oxygen: 2 L/min via nasal cannula Heparin given IA 10/02/2024 08:50:43 Verapamil 2.5mg, Ntg 200mcgs, 2000 units of Heparin given IA 10/02/2024 08:50:43 SUMMARY OF HEMODYNAMIC DATA Time AIR REST ECG 07:34:04 AO 112/63 (79) SA 08:59:43 09:23:51 Signed By Gorge Naik MD On 10/02/2024 09:24:12 Gorge Naik MD 10/02/24923 Date Gorge Naik MD Cosigner Signature: Date (if indicated) CC: Dr. Gorge Naik MD; Dr. Samantha Reyes MD Date Dictated: 10/02/24842 Date Transcribed: 10/02/24923 Chief Vendor Quality: BONILLA Horner [facility] Cardiac catheterization repo rtOrdered By: Gorge Naik on 10-02-2024 [address] study [facility] Imaging Services [address] [place] [address] Cardiac Cath Diagnostic MR#: [id number] Acct: [id number] Name: SANDRINE RIVERS Rep #:[id number] : 1940 84 From: Gorge Naik MD PCP: Dr. Samantha Reyes MD Status:[facility] Patient Name: SANDRINE RIVERS Study Date: 10/02/2024 Performing: Gorge Naik MD Ht: 64 inches 162.56 cm : 1940 Wt: 181.99 lbs 82.55 kg Age: 84 Gender: female BSA: 1.88 PROCEDURE(S) PERFORMED DC04-(71975)LHC/COR/CABG CLINICAL PROFILE AND INDICATIONS Indications: Worsening Angina Heart Failure: NYHA Class: 2, Newly Diagnosed: Yes, Heart Failure Type: Systolic Stress/Imaging Stress Test w/SPECT MPI: Yes Result: NegativeStress Test with SPECT MPI: Negative CAD Presentations: Other: Dyspnea CONCLUSIONS 40% ISR Mid LAD. Proz stent widely patent: SVG to D1 patent RECOMMENDATIONS Medical therapy Risk factor modification DESCRIPTION OF PROCEDURE The patient arrived to the procedure lab. The risks and benefits of the procedure as well as a full description of our services here and current unavailability of surgical backup were fully explained to the patient and/or their significant other prior to the catheterization. The Timeout was completed, verifying the correct patient and procedure. The patient's procedural site was prepped and draped in the usual fashion. Local anesthetic was given subcutaneously to right radial region with Lidocaine 2%. Using a modified Seldinger technique, arterial access was obtained via the right radial artery, a 6Fr sheath was inserted. Left Coronary Artery selective angiography was performed in multiple views using a 5 Fr. 4.0 [place] catheter. Right Coronary Artery selective angiography was then performed in multiple views using a 5 Fr. 4.0 [place] catheter. Saphenous Vein graft to the DIAG 1 selective angiography was performed in multiple views using a 5 Fr. 4.0 [place] catheter.The arterial sheath was pulled and a TR Band was applied for hemostasis. 14cc of air CORONARY ANGIOGRAPHY DOMINANCE: Right Dominant LEFT MAIN: Tubular 30% Distal lesion in LMCA LEFT ANTERIOR DESCENDING ARTERY: LAD: Tubular 40% Mid lesion in LAD CIRCUMFLEX ARTERY: Angiographically normal RAMUS: Angiographically normal RIGHT CORONARY ARTERY: Angiographically normal GRAFTS: SVG Graft to DIAG1 COMPLICATIONS No Complications PROCEDURE MEDICATIONS Fentanyl 50 mcg IV Versed 1 mg IV Oxygen: 2 L/min via nasal cannula Heparin given IA 10/02/2024 08:50:43 Verapamil 2.5mg, Ntg 200mcgs, 2000 units of Heparin given IA 10/02/2024 08:50:43 SUMMARY OF HEMODYNAMIC DATA Time AIR REST ECG 07:34:04 AO 112/63 (79) SA 08:59:43 09:23:51 Signed By Gorge Naik MD On 10/02/2024 09:24:12 Gorge Naik MD 10/02/24 0924 Date _ Gorge Naik MD Cosigner Signature: Date (if indicated) CC: Dr. Gorge Naik MD; Dr. Samantha Reyes MD ~ Date Dictated: 10/02/24842 Date Transcribed: 10/02/24923 Chief Vendor Quality: BONILLA Guillen [facility] Work Phone: Echo Complete W/ Contraston 10-01-2024 Echo Complete W/ Contrast [facility] Cardiovascular Services [address] [place] [address] Echo Complete W/ Contrast 10/01/24 1352 MR#: [id number] Acct: [id number] Name: SANDRINE RIVERS Rep #: [id number] : 1940 84 From: Gorge Naik MD Attending Dr: Dr. Gorge Naik MD Status: REG CLI Ordering Dr: Gorge Naik MD Date: 10/01/24 Location: [facility] Sex: F C Admitted: Reason For Study Reason For Study: CHEST PAIN Procedure This was a 2D Doppler, Color Flow transthoracic echocardiogram. The study was technically difficult. Due to body habitus. Contrast injection was performed. Left Ventricle Normal LV size. Mild concentric left ventricular hypertrophy. Moderate to severe generalized LV hypokinesis. Estimated LVEF 35-40%. Diastolic dysfunction. Right Ventricle Normal right ventricle. Atria The left atrium is severely enlarged. The right atrium is moderately enlarged. Mitral Valve There is Mild focal posterior mitral annular calcification. Mild (1+) mitral valve insufficiency. Tricuspid Valve Moderately severe (3+) tricuspid valve insufficiency. Normal pulmonary artery pressure. Aortic Valve Aortic valve right coronary cusp mildly calcified with restricted leaflet excursion. Valve area 2.2 cm?? by planimetry. Trivial to mild regurgitation. Pulmonic Valve The pulmonic valve is not well visualized. Trivial pulmonic valve insufficiency. Great Vessels Normal sized aortic root. Pericardium/Pleural No pericardial effusion. Medication 22 gauge I.V. with prn adaptor inserted into right arm. Diluted definity 3.0ml given slow IV push to enhance endocardial definition. MMode/2D Measurements Calculations LVIDd: 4.7 cm IVSd: 1.1 cm Ao root diam: 3.6 cm LVIDs: 3.7 cm LVPWd: 1.3 cm RVDd: 3.3 cm FS: 22.2 % LAV(MOD-bp): 97.2 ml LVAd ap4: 22.7 cm2 LVAd ap2: 18.0 cm2 LAV(MOD-bp) Indexed: 51.7 ml/m2 LVLd ap4: 6.5 cm LVLd ap2: 6.3 cm LAV(MOD-sp2): 84.2 ml EDV(MOD-sp4): 69.2 ml EDV(MOD-sp2): 44.0 ml LAV(MOD-sp4): 99.8 ml EDV(sp4-el): 67.6 ml EDV(sp2-el): 43.6 ml LVAs ap4: 14.8 cm2 LVAs ap2: 12.2 cm2 LVLs ap4: 5.5 cm LVLs ap2: 5.6 cm ESV(MOD-sp4): 35.1 ml ESV(MOD-sp2): 21.9 ml ESV(sp4-el): 33.8 ml ESV(sp2-el): 22.4 ml EF(MOD-sp4): 49.3 % EF(MOD-sp2): 50.3 % EF(sp4-el): 49.9 % SV(MOD-sp4): 34.1 ml SV(MOD-sp2): 22.1 ml SV(sp4-el): 33.7 ml SI(MOD-sp4): 18.1 ml/m2 SI(MOD-sp2): 11.8 ml/m2 Aortic Valve Planimetry: 2.2 cm2 LA A4 area: 27.9 cm2 LA dimension(2D): 5.1 cm TAPSE: 1.4 cm RA A4 area: 17.4 cm2 Doppler Measurements Calculations MV E max liang: 109.6 cm/sec Ao V2 max: 120.7 cm/sec LV V1 max: 59.5 cm/sec Ao max P.8 mmHg LV V1 max P.4 mmHg Ao V2 mean: 82.8 cm/sec LV V1 mean P.78 mmHg Ao mean P.1 mmHg LV V1 mean: 41.5 cm/sec Ao V2 VTI: 24.0 cm LV V1 VTI: 13.2 cm AV (velocity ratio): 0.55 PA V2 max: 69.6 cm/sec TR max liang: 261.9 cm/sec PA V2 mean: 44.3 cm/sec TR max P.4 mmHg ECHO/Echo Complete W/ Contrast Interpretation Summary Mild concentric left ventricular hypertrophy. Moderate to severe generalized LV hypokinesis. Estimated LVEF 35-40%. Diastolic dysfunction. The left atrium is severely enlarged. The right atrium is moderately enlarged. Mild (1+) mitral valve insufficiency. Moderately severe (3+) tricuspid valve insufficiency. Aortic valve right coronary cusp mildly calcified with restricted leaflet excursion. Valve area 2.2 cm?? by planimetry. Trivial to mild regurgitation. Ordering Physician: Gorge Naik Referring Physician: Samantha Reyes Performed By: Rebecca Orozco, SIMBA, RVT 10/01/24 1527 Date Gorge Naik MD CC: Dr. Gorge Naik MD; Dr. Samantha Reyes MD Date Dictated: 10/01/24 1352 Date Transcribed: 10/01/24 1527 Chief Vendor Quality: Signed Normal [facility] Echocardiogram study reportO rdered By: Gorge Naik on 10-01-2024 Study report [facility] Cardiovascular Services [address] [place] [address] Echo Complete W/ Contrast 10/01/24 1352 MR#: [id number] Acct: [id number] Name: SANDRINE RIVERS Rep #:[id number] : 1940 84 From: Gorge aNik MD Attending Dr: Dr. Gorge Naik MD Status: REG CLI Ordering Dr: Gorge Naik MD Date: Location: [facility] Sex: F C Admitted: Reason For Study Reason For Study: CHEST PAIN Procedure This was a 2D Doppler, Color Flow transthoracic echocardiogram. The study was technically difficult. Due to body habitus. Contrast injection was performed. Left Ventricle Normal LV size. Mild concentric left ventricular hypertrophy. Moderate to severegeneralized LV hypokinesis. Estimated LVEF 35-40%. Diastolic dysfunction. Right Ventricle Normal right ventricle. Atria The left atrium is severely enlarged. The right atrium is moderately enlarged. Mitral Valve There is Mild focal posterior mitral annular calcification. Mild (1+) mitral valve insufficiency. Tricuspid Valve Moderately severe (3+) tricuspid valve insufficiency. Normal pulmonary artery pressure. Aortic Valve Aortic valve right coronary cusp mildly calcified with restricted leaflet excursion. Valve area 2.2 cm?? by planimetry. Trivial to mild regurgitation. Pulmonic Valve The pulmonic valve is not well visualized. Trivial pulmonic valve insufficiency. Great Vessels Normal sized aortic root. Pericardium/Pleural No pericardial effusion. Medication 22 gauge I.V. with prn adaptor inserted into right arm. Diluted definity 3.0ml given slow IV push to enhance endocardial definition. MMode/2D Measurements & Calculations LVIDd: 4.7 cm IVSd: 1.1 cm Ao root diam: 3.6 cm LVIDs: 3.7 cm LVPWd: 1.3 cm RVDd: 3.3 cm FS: 22.2 % __ LAV(MOD-bp): 97.2 ml LVAd ap4: 22.7 cm2 LVAd ap2: 18.0 cm2 LAV(MOD-bp) Indexed: 51.7 ml/m2 LVLd ap4: 6.5 cm LVLd ap2: 6.3 cm LAV(MOD-sp2): 84.2 ml EDV(MOD-sp4): 69.2 ml EDV(MOD-sp2): 44.0 ml LAV(MOD-sp4): 99.8 ml EDV(sp4-el): 67.6 ml EDV(sp2-el): 43.6 ml LVAs ap4: 14.8 cm2 LVAs ap2: 12.2 cm2 LVLs ap4: 5.5 cm LVLs ap2: 5.6 cm ESV(MOD-sp4): 35.1 ml ESV(MOD-sp2): 21.9 ml ESV(sp4-el): 33.8 ml ESV(sp2-el): 22.4 ml EF(MOD-sp4): 49.3 % EF(MOD-sp2): 50.3 % EF(sp4-el): 49.9 % SV(MOD-sp4): 34.1 ml SV(MOD-sp2): 22.1 ml SV(sp4-el): 33.7 ml SI(MOD-sp4): 18.1 ml/m2 SI(MOD-sp2): 11.8 ml/m2 __ Aortic Valve Planimetry: 2.2 cm2 LA A4 area: 27.9 cm2 LA dimension(2D): 5.1 cm __ TAPSE: 1.4 cm RA A4 area: 17.4 cm2 Doppler Measurements & Calculations MV E max liang: 109.6 cm/sec Ao V2 max: 120.7 cm/sec LV V1 max: 59.5 cm/sec Ao max P.8 mmHg LV V1 max P.4 mmHg Ao V2 mean: 82.8 cm/sec LV V1 mean P.78 mmHg Ao mean P.1 mmHg LV V1 mean: 41.5 cm/sec Ao V2 VTI: 24.0 cm LV V1 VTI: 13.2 cm AV (velocity ratio): 0.55 __ PA V2 max: 69.6 cm/sec TR max liang: 261.9 cm/sec PA V2 mean: 44.3 cm/sec TR max P.4 mmHg ECHO/Echo Complete W/ Contrast Interpretation Summary Mild concentric left ventricular hypertrophy. Moderate to severe generalized LV hypokinesis. Estimated LVEF 35-40%. Diastolic dysfunction. The left atrium is severely enlarged. The right atrium is moderately enlarged. Mild (1+) mitral valve insufficiency. Moderately severe (3+) tricuspid valve insufficiency. Aortic valve right coronary cusp mildly calcified with restricted leaflet excursion. Valve area 2.2 cm?? by planimetry. Trivial to mild regurgitation. Ordering Physician: Gorge Naik Referring Physician: Samantha Reyes Performed By: Rebecca Orozco SIMBA, RVT 10/01/24 1527 Date _ Gorge Naik MD CC: Dr. Gorge Naik MD; Dr. Samantha Reyes MD ~ Date Dictated: 10/01/24 1352 Date Transcribed: 10/01/24 1527 Chief Vendor Quality: Signed [facility] Work Phone: Absolute lymphocyte countOrd ered By: Gorge Naik on 09-15-2024 Lymphocytes Auto (Unsp spec) [#/Vol] 2.61 10*3/uL 0.83-4.51 [facility] Absolute neutrophil countOrd ered By: Gorge Naik on 09-15-2024 Neutrophils (Bld) [#/Vol] 4.9 10*3/uL 2.0-7.7 [facility] Anion gap in Serum or Plasma Ordered By: Gorge Naik on 09-15-2024 Anion gap [Moles/Vol] 10 mmol/L 5-15 [facility] Automated lymphocyte count a s percentage of total leukocytesOrdered By: Gorge Naik on 09-15-2024 Lymphocytes/100 WBC Auto (Unsp spec) 30.9 % 19-41 [facility] BUN/creatinine ratioOrdered By: Gorge Naik on 09-15-2024 Urea nitrogen/Creatinine [Mass ratio] 16.4 mg/mg 10- [facility] Basic Metabolic Profile (BMP )on 09-15-2024 BUN/CRE 16.4 RATIO Normal - [facility] Comment on above: Performed By: #### L 100.0100, L500.2500, L300.3900 #### [facility] [address] [place], [address] Calcium [Mass/Vol] 10.4 mg/dL Normal 7.6-11.0 [facility] Comment on above: Performed By: #### L 100.0100, L500.2500, L300.3900 #### [facility] [address] [place], [address] Chloride [Moles/Vol] 105 mmol/L Normal 98-108 [facility] Comment on above: Performed By: #### L 100.0100, L500.2500, L300.3900 #### [facility] [address] [place], [address] CO2 [Moles/Vol] 24.0 mmol/L Normal 21.0-32.0 [facility] Comment on above: Performed By: #### L 100.0100, L500.2500, L300.3900 #### [facility] [address] [place], [address] Creatinine [Mass/Vol] 1.49 mg/dL High 0.70-1.20 [facility] Comment on above: Performed By: #### L 100.0100, L500.2500, L300.3900 #### [facility] [address] [place], [address] ECRCL 29.21 ml/min Low 50-250 [facility] Comment on above: Performed By: #### L 100.0100, L500.2500, L300.3900 #### [facility] [address] [place], [address] GAP 10 Normal 5-15 [facility] Comment on above: Performed By: #### L 100.0100, L500.2500, L300.3900 #### [facility] [address] [place], [address] GFR/1.73 sq M.predicted among non-blacks MDRD (S/P/Bld) [Vol rate/Area] 34 mL/min/{1.73_m2} Low >60 [facility] Comment on above: Result Comment: mL/m in/1.73m2 CKD-EPI Creatinine Equation (2020) Performed By: #### L 100.0100, L500.2500, L300.3900 #### [facility] [address] [place], [address] Glucose [Mass/Vol] 106 mg/dL High 70-99 [facility] Comment on above: Performed By: #### L 100.0100, L500.2500, L300.3900 #### [facility] [address] [place], [address] Potassium [Moles/Vol] 4.5 mmol/L Normal 3.3-5.1 [facility] Comment on above: Performed By: #### L 100.0100, L500.2500, L300.3900 #### [facility] [address] [place], [address] Sodium [Moles/Vol] 139 mmol/L Normal 133-145 [facility] Comment on above: Performed By: #### L 100.0100, L500.2500, L300.3900 #### [facility] [address] [place], [address] Urea nitrogen [Mass/Vol] 24 mg/dL High 4-19 [facility] Comment on above: Performed By: #### L 100.0100, L500.2500, L300.3900 #### [facility] [address] [place], [address] Basophil percentageOrdered B y: Gorge Gumaro on 09-15-2024 Basophils/100 WBC (Bld) 0.6 % 0-1 [facility] CBC W/Diff, Automatedon 08-27 Absolute Lymph 2.61 X10 3/uL Normal 0.83-4.51 [facility] Comment on above: Performed By: #### L 100.0100, L500.2500, L300.3900 #### [facility] [address] [place], [address] Absolute Neut 4.9 X10 3/uL Normal 2.0-7.7 [facility] Comment on above: Performed By: #### L 100.0100, L500.2500, L300.3900 #### [facility] [address] [place], [address] Basophils/100 WBC (Bld) 0.6 % Normal 0-1 [facility] Comment on above: Performed By: #### L 100.0100, L500.2500, L300.3900 #### [facility] [address] [place], [address] Eosinophils/100 WBC (Bld) 1.7 % Normal 0-5 [facility] Comment on above: Performed By: #### L 100.0100, L500.2500, L300.3900 #### [facility] [address] [place], [address] Erythrocyte distribution width (RBC) [Ratio] 12.5 % Normal 11.6-14.6 [facility] Comment on above: Performed By: #### L 100.0100, L500.2500, L300.3900 #### [facility] [address] [place], [address] Hematocrit (Bld) [Volume fraction] 38.4 % Normal 37-47 [facility] Comment on above: Performed By: #### L 100.0100, L500.2500, L300.3900 #### [facility] [address] [place], [address] Hemoglobin (Bld) [Mass/Vol] 12.4 g/dL Normal 12.0-15.0 [facility] Comment on above: Performed By: #### L 100.0100, L500.2500, L300.3900 #### [facility] [address] [place], [address] IG% 0.400 Normal 0.0-0.9 [facility] Comment on above: Result Comment: IG% - Immature Granulocytes (promyelocytes, myelocytes and metamyelocytes) > 1% indicates that a LEFT SHIFT is Present. Performed By: #### L 100.0100, L500.2500, L300.3900 #### [facility] [address] [place], [address] Lymphocytes/100 WBC (Bld) 30.9 % Normal 19-41 [facility] Comment on above: Performed By: #### L 100.0100, L500.2500, L300.3900 #### [facility] [address] [place], [address] MCH (RBC) [Entitic mass] 28.1 pg Normal 27.0-32.0 [facility] Comment on above: Performed By: #### L 100.0100, L500.2500, L300.3900 #### [facility] [address] [place], [address] MCHC (RBC) [Mass/Vol] 32.3 g/dL Normal 32-36 [facility] Comment on above: Performed By: #### L 100.0100, L500.2500, L300.3900 #### [facility] [address] [place], [address] MCV (RBC) [Entitic vol] 87.1 fL Normal 81-99 [facility] Comment on above: Performed By: #### L 100.0100, L500.2500, L300.3900 #### [facility] [address] [place], [address] Monocytes/100 WBC (Bld) 8.7 % Normal 0-10 [facility] Comment on above: Performed By: #### L 100.0100, L500.2500, L300.3900 #### [facility] [address] [place], [address] Neutrophils/100 WBC (Bld) 57.7 % Normal 47-70 [facility] Comment on above: Performed By: #### L 100.0100, L500.2500, L300.3900 #### [facility] [address] [place], [address] Nucleated RBC (Bld) [#/Vol] 0 10*3/uL Normal 0-5 [facility] Comment on above: Performed By: #### L 100.0100, L500.2500, L300.3900 #### [facility] [address] [place], [address] Platelet mean volume (Bld) [Entitic vol] 11.2 fL Normal 6.2-12.0 [facility] Comment on above: Performed By: #### L 100.0100, L500.2500, L300.3900 #### [facility] [address] [place], [address] Platelets (Bld) [#/Vol] 246 10*3/uL Normal 150-450 [facility] Comment on above: Performed By: #### L 100.0100, L500.2500, L300.3900 #### [facility] [address] [place], [address] RBC (Bld) [#/Vol] 4.41 10*6/uL Normal 4.2-5.4 [facility] Comment on above: Performed By: #### L 100.0100, L500.2500, L300.3900 #### [facility] [address] [place], [address] RDW SD 39.8 fl Normal 35.1-43.9 [facility] Comment on above: Performed By: #### L 100.0100, L500.2500, L300.3900 #### [facility] [address] [place], [address] WBC (Bld) [#/Vol] 8.5 10*3/uL Normal 4.4-11.0 [facility] Comment on above: Performed By: #### L 100.0100, L500.2500, L300.3900 #### [facility] [address] [place], [address] Carbon dioxide, total [Moles /volume] in Central venous bloodOrdered By: Gorge Naik on 09-15-2024 CO2 [Moles/Vol] 24.0 mmol/L 21.0-32.0 [facility] Chest PA and Lateralon 09-15 Chest PA and Lateral [facility] [address] [place], [place] [address] Chest PA and Lateral MR#: [id number] Acct: [id number] Name: SANDRINE RIVERS Rep #: [id number] : 1940 F 84 From: Rylie Aburto nd, MD PCP: Dr. Samantha Reyes MD [place] [facility] [place] Chest PA and Lateral Date of Exam: 09/15/24 Exam# [id number] Ordering Dr: Gorge Naik MD PROCEDURE: CHEST PA AND LATERAL 09/15/2024 REASON FOR EXAM: PRE-PROCEDURE DIAGNOSTIC EXAM TECHNIQUE: Frontal and lateral views of the chest. COMPARISON: None. FINDINGS: Hardware: Prior median sternotomy and CABG. Heart: Heart size is mildly enlarged. Mediastinum: There are atherosclerotic calcifications of the thoracic aorta. Lungs: Bibasilar atelectasis. Scattered calcified granulomas. No focal consolidation, pleural effusion or pneumothorax. Bones: Degenerative changes are identified within the thoracic spine. RAD/Chest PA and Lateral IMPRESSION: Mild cardiomegaly with prior median sternotomy and CABG. Reading Location: [facility] CC: Dr. Gorge Naik MD; Dr. Samantha Reyes MD Chief Vendor Quality: Signed Normal [facility] Chloride assayOrdered By: Bonilla Naik on 09-15-2024 Chloride [Moles/Vol] 105 mmol/L 98-108 [facility] Eosinophil percentageOrdered By: Gorgeviviana Naik on 09-15-2024 Eosinophils/100 WBC (Bld) 1.7 % 0-5 [facility] Erythrocyte distribution wid th ratioOrdered By: Gorgeviviana Naik on 09-15-2024 Erythrocyte distribution width (RBC) [Ratio] 12.5 % 11.6-14.6 [facility] Erythrocyte distribution wid th standard deviationOrdered By: Gorgeviviana Naik on 09-15-2024 Erythrocyte distribution width (RBC) [Ratio] 39.8 fl 35.1-43.9 [facility] Glomerular filtration rate ( GFR) estimation/1.73 sq m using serum, plasma, or whole bOrdered By: Gorge Naik on 09-15-2024 GFR/1.73 sq M.predicted among non-blacks MDRD (S/P/Bld) [Vol rate/Area] 34 mL/min/{1.73_m2} Low >60 [facility] Comment on above: mL/min/1.73m2 CKD-EP I Creatinine Equation (2020) Hematocrit Auto (Bld) [Volum e fraction]Ordered By: Gorge Gumaro on 09-15-2024 Hematocrit (Bld) [Volume fraction] 38.4 % 37-47 [facility] Hemoglobin measurementOrdere d By: Gorge Naik on 09-15-2024 Hemoglobin (Bld) [Mass/Vol] 12.4 g/dL 12.0-15.0 [facility] Immature granulocytes/100 WB C Auto (Bld)Ordered By: Gorge Naik 09-15-2024 Immature granulocytes/100 WBC (Bld) 0.400 % 0.0-0.9 [facility] Comment on above: IG% - Immature Granu locytes (promyelocytes, myelocytes and metamyelocytes) > 1% indicates that a LEFT SHIFT is Present. International normalized rat io (INR) calculationOrdered By: Gorge Naik on 09-15-2024 INR Coag (Bld) [Relative time] 1.4 {INR} [facility] MCV (mean corpuscular volume ) determinationOrdered By: Gorge Naik 09-15-2024 MCV (RBC) [Entitic vol] 87.1 fL 81-99 [facility] Mean corpuscular hemoglobin (MCH) determinationOrdered By: Gorge Naik on 09-15-2024 MCH (RBC) [Entitic mass] 28.1 pg 27.0-32.0 [facility] Mean corpuscular hemoglobin concentration (MCHC) determinationOrdered By: Gorgeviviana Naik on 09-15-2024 MCHC (RBC) [Mass/Vol] 32.3 g/dL 32-36 [facility] Mean platelet volume determi nationOrdered By: Gorge Naik on 09-15-2024 Platelet mean volume (Bld) [Entitic vol] 11.2 fL 6.2-12.0 [facility] Monocyte percentageOrdered B y: Gorgeviviana Naik on 09-15-2024 Monocytes/100 WBC (Bld) 8.7 % 0-10 [facility] Neutrophil percentageOrdered By: Gorgeviviana Naik on 09-15-2024 Neutrophils/100 WBC (Bld) 57.7 % 47-70 [facility] Nucleated red blood cell per centageOrdered By: Gorgeviviana Naik on 09-15-2024 Nucleated RBC/100 WBC (Bld) [Ratio] 0 % 0-5 [facility] Platelet countOrdered By: Bonilla Naik on 09-15-2024 Platelets (Bld) [#/Vol] 246 10*3/uL 150-450 [facility] Potassium measurement (mass/ volume)Ordered By: Gorgeviviana Naik on 09-15-2024 Potassium (Unsp spec) [Mass/Vol] 4.5 mmol/L 3.3-5.1 [facility] Prothrombin Time w/INRon INR Coag (PPP) [Relative time] 1.4 {INR} Normal [facility] Comment on above: Performed By: #### L 100.0100, L500.2500, L300.3900 #### [facility] [address] [place], [place], [id number] PT Coag (PPP) [Time] 17.1 s High 11.7-14.9 [facility] Comment on above: Performed By: #### L 100.0100, L500.2500, L300.3900 #### [facility] [address] [place], [address] Prothrombin timeOrdered By: Gorge Naik on 09-15-2024 PT Coag (PPP) [Time] 17.1 s High 11.7-14.9 [facility] RBC Auto (Bld) [#/Vol]Ordere d By: Gorge Naik on 09-15-2024 RBC (Bld) [#/Vol] 4.41 10*6/uL 4.2-5.4 [facility] Serum creatinine measurement (mass/volume)Ordered By: Gorge Naik on 09-15-2024 Creatinine [Mass/Vol] 1.49 mg/dL High 0.70-1.20 [facility] Serum glucose measurement (m ass/volume)Ordered By: Gorgeviviana Naik on 09-15-2024 Glucose [Mass/Vol] 106 mg/dL High 70-99 [facility] Serum or plasma calcium nancy urement (mass/volume)Ordered By: Gorgeviviana Naik on 09-15-2024 Calcium [Mass/Vol] 10.4 mg/dL 7.6-11.0 [facility] Serum or plasma urea nitroge n measurement (mass/volume)Ordered By: Gorge Naik on 09-15-2024 Urea nitrogen [Mass/Vol] 24 mg/dL High 4-19 [facility] Sodium levelOrdered By: Javier Naik on 09-15-2024 Sodium [Moles/Vol] 139 mmol/L 133-145 [facility] White blood cell (WBC) count Ordered By: Gorge Naik on 09-15-2024 WBC (Bld) [#/Vol] 8.5 10*3/uL 4.4-11.0 [facility] Cardiology Visit Reporton Cardiology Visit Report [facility] [address] [place] [address] OFFICE VISIT Date of Service: 09/09/24 MR#: [id number] Acct: [id number] Name: SANDRINE RIVERS Rep #: [id number] : 1940 Provider: Dr. Gorge Naik MD Age/Sex: 84/F [place] [facility] [place] Status: Signed HPI HPI History of Present Illness Details: This lady with history of coronary artery disease status post CABG to the PATINO and LAD, noted to have atretic PATINO on subsequent angiography and therefore percutaneous intervention to the LAD, is here for follow-up visit. According to the patient, lately she has been having anterior chest tightness. This sometimes occurs with exertion but other times it does not. She has also been feeling more short of breath with exertion. Denies any orthopnea or PND. No ankle edema. Intake Vital Signs 03/24/24 08:43 09/09/24 08:40 Height 5 ft 4 in 5 ft 4 in Weight: 182 lb BMI 31.2 BP 115/75 Blood Pressure Location Lt brachial Position Sitting Respiration 18 Pulse 67 Pulse Source NIBP Intake Visit Reasons: 6 M [employer] Required: No Accompanied by: Is patient in pain?: Yes (arthritis; chronic) Allergies poison araceli extract Allergy (Verified 09/09/24 14:11) Itching poison oak extract Allergy (Verified 09/09/24 14:11) Itching streptokinase (Streptokinase) Adverse Reaction (Severe, Verified 09/09/24 14:11) Hives Medications ???Medication ???Instructions ???Recorded ???Confirmed ???Type mirabegron 50 mg tablet,extended 50 mg PO DAILY 10/04/21 09/09/24 H istory release 24 hr lansoprazole 30 mg capsule,delayed 30 mg PO DAILY 02/03/22 09/09/24 History release aspirin 81 mg tablet,delayed 81 mg PO DAILY 08/11/22 09/09/24 H istory release (Adult Low Dose Aspirin) niacin 500 mg tablet,extended 500 mg PO BID #180 tabs 01/19/23 0 09/09/24 Rx release 24 hr levothyroxine 125 mcg tablet 125 mcg PO DAILY 02/01/23 09/09/24 History sucralfate 1 gram tablet 1 g PO QACHS 02/01/23 09/09/24 His tory nitroglycerin 0.4 mg sublingual 0.4 mg sublingual Q5M PRN Chest 09/09/24 Rx tablet Pain #25 tabs potassium chloride 20 mEq 20 meq PO DAILY #90 tabs 03/15/23 09/09/24 Rx tablet,extended release calcium carbonate (Calcium 600) 600 mg PO DAILY 04/13/23 09/09/24 History acetaminophen 500 mg capsule 500 mg PO Q6H PRN 08/22/23 5 History albuterol sulfate 90 mcg/actuation 2 puff inhalation Q6H PRN 09/09/24 History aerosol inhaler oxybutynin chloride 10 mg 10 mg PO QDAY 08/22/23 09/09/24 Hi story tablet,extended release 24 hr cholecalciferol (vitamin D3) 1,250 1,250 mcg PO QWEEK 03/24/2408/26 History mcg (50,000 unit) capsule rosuvastatin 20 mg tablet 20 mg PO BID 03/24/24 09/09/24 His tory apixaban 5 mg tablet (Eliquis) 5 mg PO BID #60 tabs 03/27/2408/26 Rx atenolol 50 mg tablet 50 mg PO BID Heart/BP #180 tabs 09/09/24 Rx spironolactone 25 mg tablet 25 mg PO QDAY #30 tabs 04/22/24 Rx ramipril 10 mg capsule 10 mg PO QDAY #90 caps 05/29/24 Rx hydrochlorothiazide 12.5 mg tablet 12.5 mg PO QDAY 09/09/24 5 History Ejection fraction %: 63 Have you fallen in the past year?: No PFSH Medical History Anticoagulant long-term use Atherosclerotic heart disease of 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 coronary artery without angina pectoris Atrial fibrillation Chest heaviness Chest pain Chest pain due to CAD Coronary artery disease Dyslipidemia Dyspnea Dyspnea on exertion Essential hypertension Fatigue GERD (gastroesophageal reflux disease) History of acute myocardial infarction of anterolateral wall (02/2000) History of cardioversion History of DVT (deep vein thrombosis) History of pulmonary embolism Hypertension Hypothyroid ivc filter retreval Left-sided pyelonephritis Other mcc (current) drug therapy Ovarian cancer Ovarian cancer Overactive bladder Paroxysmal atrial fibrillation Pericardial effusion Pulmonary emboli Pure hypercholesterolemia Small bowel obstruction Stress incontinence Wide-complex tachycardia Surgical History H/O coronary artery bypass surgery ( 02/2000) History of back surgery History of hysterectomy History of thyroidectomy Hx of appendectomy Stented coronary artery (10/18/07) Family History Brother Hypertension Cancer Mother CVA (cerebral vascular accident) Hypertension Social History Smoking Status: Former smoker how long ago did patient quit smokin years ago alcohol intake: current alcohol intake jordyn (more content not included)... [facility] SANDRNIE RIVERS ([id number]) 1940 F Date Time Provider Department 05/19/24 ODESSA SANCHEZ [facility] During your visit today, we recorded the following information about you: Odessa Sanchez APRN.MIKA 05/19/2024 11:55 AM Signed I left a message for patient to return call to office. Culture showed bacterial growth which is resistant to the prescribed antibiotic. I sent a new prescription to her pharmacy-Cipro- which she should take twice a day x 5 times. She should stop taking the cephalexin. Odessa Sanchez APRN.Sharath Almendarez LPN 05/19/2024 12:06 PM Signed Patient notified with results. Patient verbalizes understanding. Sharath Donohue LPN Allergies As of Date: 05/19/2024 Noted Allergy Reaction STREPTOKINASE 05/19/2018 4 - Hives POISON ARACELI 03/13/2005 POISON OAK EXTRACT 02/03/2022 9 - Itching Date Reviewed: 05/17/2024 Reviewed by: Karishma Crawford MA - Fully Assessed Reason for Visit: Results [95] Order(s):ciprofloxacin HCl (CIPRO) 500 mg tabletTake 1 tablet by mouth two times a day for 5 days.Disp: 10 tabletRfl: 0 Prescriptions as of 05/19/2024 - ciprofloxacin HCl (CIPRO) 500 mg tablet Take 1 tablet by mouth two times a day for 5 days. - spironolactone (ALDACTONE) 25 mg tablet once daily. - sucralfate (CARAFATE) 1 gram tablet Take 1 tablet by mouth before meals and at bedtime. - rosuvastatin (CRESTOR) 40 mg tablet Take 1 tablet by mouth once daily. - levothyroxine (LEVOXYL) 125 mcg tablet Take 1 tablet by mouth once daily. Take on empty stomach. For thyroid. - furosemide (LASIX) 40 mg tablet Take 1 tablet by mouth once daily. - niacin ER (NIASPAN) 500 mg tablet Take 1 tablet by mouth two times a day. - hydroCHLOROthiazide (MICROZIDE) 12.5 mg capsule Take 1 capsule by mouth once daily. - lansoprazole (PREVACID) 30 mg capsule Take 1 capsule by mouth daily before breakfast. 1/2 hr before meal. - potassium chloride 20 mEq TbER Take 1 tablet by mouth once daily. - cholecalciferol, Vitamin D3, (VITAMIN D3) 1,250 mcg (50,000 unit) cap capsule Take 1 capsule by mouth one time a week. - ramipril (ALTACE) 10 mg capsule Take by mouth once daily. - tiZANidine (ZANAFLEX) 4 mg tablet Take 1 tablet by mouth every 8 hours as needed (muscle spasms). - oxybutynin ER (DITROPAN XL) 10 mg 24 hr tablet Take 1 tablet by mouth once daily. - apixaban (ELIQUIS) 5 mg tab(s) Take 5 mg by mouth twice daily. - mirabegron (MYRBETRIQ) 50 mg Tb24 Take 1 tablet by mouth once daily. - albuterol HFA (PROAIR HFA) 90 mcg/actuation inhaler Inhale 2 Puffs as instructed every 6 hours as needed. - nitroglycerin(NITROQUICK 0.4 MG SUBLINGUAL TAB) - ASPIRIN 81 MG TAB Take one(1) tablet daily. - CALCIUM 500 MG TAB Take one(1) tablet two(2) times daily. - TYLENOL PM 25 MG-500 MG TAB Take two(2) at bedtime - ATENOLOL 50 MG TAB Take one(1) tablet two(2) times daily. Problem List As Of Date 05/19/2024 Noted Resolved Coronary atherosclerosis [I25.10] 03/20/2005 AORTOCORONARY BYPASS STATUS [Z95.1] 03/20/2005 BENIGN HYPERTENSION [I10] 03/20/2005 PERS HX VENOUS THROMB/EMBOLISM [Z86.718] 03/20/2005 Hypothyroidism [E03.9] 03/20/2005 CIRCUMSCRIBE SCLERODERMA [L94.0] 12/27/2005 Acute gastritis without mention of hemorrhage [*01/23/2012 Esophagitis, unspecified [K20.90] 01/23/2012 Fracture of lateral malleolus of right ankle [S*08/27/2012 Nondisplaced fracture of triquetral bone of rig*08/27/2012 GERD (gastroesophageal reflux disease) [K21.9] 09/08/2013 Multiple thyroid nodules [E04.2] 12/22/2013 Colloid thyroid nodule [E04.1] 02/11/2014 Atrial fibrillation (HCC) [I48.91] 09/02/2014 Ovarian cancer (HCC) [C56.9] 09/02/2014 10/11/2023 Obesity [E66.9] 09/02/2014 DVT (deep venous thrombosis) (HCC) [I82.409] 09/02/2014 10/11/2023 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 Medications Discontinued During This Encounter Prescriptions - cephALEXin (KEFLEX) 500 mg capsule (Discontinued) Take 1 capsule by mouth two times a day for 7 days. Encounter Status:Closed by SHARATH DONOHUE on 05/19/24 Normal [facility] Bacteria Ur Culton 4 Bacteria identified Cx Nom (U) ORGANISM ID: 1 >=100,000 CFU/ml Serratia marcescens ORGANISM ID: 1 (SERRATIA MARCESCENS) ANTIBIOTIC INTERPRETATION LUBNA STATUS REFERENCE RANGE Ampicillin R >=32 F Susceptible <=8 , Intermediate >8 , Resistant >16 Cefazolin R >=64 F Susceptible 0-16 , Intermediate <0 or >16 , Resistant >16 For uncomplicated urinary tract infections, cefazolin results can be used to predict susceptibility or resistance to cephalexin. Ceftriaxone S <=1 F Susceptible <=1 , Intermediate >1 , Resistant >=4 Cefepime S <=1 F Susceptible <=2 , Susceptible-Dose Dependent >2 , Resistant >=16 Ertapenem S <=0.5 F Susceptible <=0.5 , Intermediate >.5 , Resistant >1 Meropenem S <=0.25 F Susceptible <=1 , Intermediate >1 , Resistant >2 Ampicillin/Sulbact R >=32 F Susceptible <=8 , Intermediate >8 , Resistant >16 Piperacillin/Tazobac Testing F Call lab within 72 hours if susceptibility results are needed for this antimicrobial. Gentamicin S <=1 F Susceptible <=2 , Intermediate >2 , Resistant >=8 Tobramycin S 2 F Susceptible <4 , Intermediate >=4 , Resistant >=8 Trimeth sulfameth S <=20 F Susceptible <=40 , Resistant >40 Ciprofloxacin S <=0.25 F Susceptible <0.5 , Intermediate >=.5 , Resistant >=1 Nitrofurantoin R 128 F Susceptible <=32 , Intermediate >32 , Resistant >64 Abnormal [facility] Comment on above: Performed By: #### 2 4323-8, 39397-3, 3016-3 #### [facility] CLIA [id number] [address] [place] [address] OF [facility] CNOVon 05-17-2024 CNOV Office Visit (UCWSTR ) -- SANDRINE RIVERS ([id number]) 1940 F Date Time Provider Department 05/17/24 10:00 AM DAVINA FLOWERS WS During your visit today, we recorded the following information about you: Temperature Pulse Respiration Blood pressure 97.3 degrees 71/minute 18/minute 124/60 Weight 84.6 kg Davina Flowers PA-C 05/17/2024 11:23 AM Signed This note was created using [employer]. Subjective Sandrine Rivers is a 83 year old female. HPI Patient presents with a chief complaint of urinary frequency, urgency and dysuria since yesterday. She has had some low back pain. No abdominal pain. No fevers or chills. No nausea or vomiting. No vaginal complaints. Has a history of recurrent UTIs. She has seen urology for this previously. Review of Systems Constitutional: Negative for fatigue and fever. HENT: Negative. Respiratory: Negative. Cardiovascular: Negative. Gastrointestinal: Negative. Genitourinary: Positive for dysuria, frequency and urgency. Negative for flank pain, hematuria and pelvic pain. Musculoskeletal: Positive for back pain. All other systems reviewed and are negative. [...] Current Outpatient Medications Medication Sig Dispense Refill spironolactone (ALDACTONE) 25 mg tablet once daily. cephALEXin (KEFLEX) 500 mg capsule Take 1 capsule by mouth two times a day for 7 days. 14 capsule 0 sucralfate (CARAFATE) 1 gram tablet Take 1 tablet by mouth before meals and at bedtime. 120 tablet 11 rosuvastatin (CRESTOR) 40 mg tablet Take 1 tablet by mouth once daily. 30 tablet 11 levothyroxine (LEVOXYL) 125 mcg tablet Take 1 tablet by mouth once daily. Take on empty stomach. For thyroid. 30 tablet 11 furosemide (LASIX) 40 mg tablet Take 1 tablet by mouth once daily. (Patient not taking: Reported on 05/17/2024) 90 tablet 3 niacin ER (NIASPAN) 500 mg tablet Take 1 tablet by mouth two times a day. 60 tablet 11 hydroCHLOROthiazide (MICROZIDE) 12.5 mg capsule Take 1 capsule by mouth once daily. 90 capsule 3 lansoprazole (PREVACID) 30 mg capsule Take 1 capsule by mouth daily before breakfast. 1/2 hr before meal. 30 capsule 11 potassium chloride 20 mEq TbER Take 1 tablet by mouth once daily. 90 tablet 4 cholecalciferol, Vitamin D3, (VITAMIN D3) 1,250 mcg (50,000 unit) cap capsule Take 1 capsule by mouth one time a week. 12 capsule 3 ramipril (ALTACE) 10 mg capsule Take by mouth once daily. 60 capsule 0 tiZANidine (ZANAFLEX) 4 mg tablet Take 1 tablet by mouth every 8 hours as needed (muscle spasms). 30 tablet 1 oxybutynin ER (DITROPAN XL) 10 mg 24 hr tablet Take 1 tablet by mouth once daily. apixaban (ELIQUIS) 5 mg tab(s) Take 5 mg by mouth twice daily. mirabegron (MYRBETRIQ) 50 mg Tb24 Take 1 tablet by mouth once daily. 30 tablet 5 albuterol HFA (PROAIR HFA) 90 mcg/actuation inhaler [...] one(1) tablet two(2) times daily. 0 0 No current facility-administered medications for this visit. PAST SURGICAL HISTORY Procedure Laterality Date ANESTHESIA LUMBAR REGION NOS disc procedure, 2 levels APPENDECTOMY CABG, ARTERIAL, FOUR+ 02/26/2000 CARDIOVERSION N/A 03/21/2023 COLONOSCOPY 09/27/2004 COLONOSCOPY FLX DX W/COLLJ SPEC WHEN PFRMD 12/07/2014 Colonoscopy ESOPHAGOGASTRODUODENOSCOPY TRANSORAL DIAGNOSTIC 01/23/2012 EGD HEART SURGERY HX LIG/TRNSXJ FLP TUBE ABDL/VAG APPR UNI/BI NEUROPLASTY AND/TRANSPOS MEDIAN NRV CARPAL TUNNE 09/11/2014 Left CTR NEUROPLASTY AND/TRANSPOSITION ULNAR NERVE ELBOW 09/11/2014 Ulnar nerve decompression left elbow OOPHORECTOMY PARTIAL/TOTAL UNI/BI 10/19/2007 Ovarian cancer, [facility] PAST SURGICAL HISTORY OF 05/28/1973 first rib on the left side removed. RETRIEV INTRAVASC FOREGN BODY 02/26/2012 IVC REMOVAL S SLING BLADR PELVI TOTL 4821 10/26/2005 Obtyrex midurethral sling STENT PLACEMENT 2004 approx per pt cardiac x 2 THYROIDECTOMY TOTAL/COMPLETE 02/02/2014 TOTAL - percancerous. TON (more content not included)... Normal [facility] UA DIP, URINE (POC)on 2023 BILIRUBIN UA (POCT) Negative Negative [facility] CLARITY UA (POCT) Cloudy [facility] COLOR UA (POCT) Yellow [facility] GLUCOSE UA (POCT) Negative Negative mg/dL [facility] Hemoglobin Ql (U) Moderate Abnormal Negative [facility] Interpretation and review of laboratory results Abnormal [facility] KETONE UA (POCT) Negative Negative mg/dL [facility] LEUKOCYTES UA (POCT) Small Abnormal Negative [facility] NITRITE UA (POCT) Negative Negative [facility] PH UA (POCT) 5.5 4.5 - 8.0 [facility] Protein Ql (U) >=300 Abnormal Negative mg/dL [facility] SPECIFIC GRAVITY UA (POCT) 1.020 1.005 - 1.030 [facility] UROBILINOGEN UA (POCT) 0.2 Donna l E.U./dL [facility] Location:[address], [place], [place], [id number] [place] [address] POINT OF CARE [facility] Basic Metabolic Profile (BMP )on 05-12-2024 BUN/CRE 14.8 RATIO Normal 10-20 [facility] Comment on above: Performed By: #### L 500.2500 ####[facility] [address] [place], [address] CA,Total 10.3 mg/dL High 8.5-10.1 [facility] Comment on above: Performed By: #### L 500.2500 ####[facility] [address] [place], [address] Chloride [Moles/Vol] 106 mmol/L Normal 98-107 [facility] Comment on above: Performed By: #### L 500.2500 ####[facility] [address] [place], [address] CO2 [Moles/Vol] 29.0 mmol/L Normal 21.0-32.0 [facility] Comment on above: Performed By: #### L 500.2500 ####[facility] [address] [place], [address] Creatinine [Mass/Vol] 1.35 mg/dL High 0.55-1.02 [facility] Comment on above: Result Comment: The validity of the calculated GFR GFRAA in patients over 70 years has not been determined. Clinical correlation is essential. Performed By: #### L 500.2500 ####[facility] [address] [place], [address] EST GFR - AA 48 mL/min Low >60 [facility] Comment on above: Result Comment: Afri can [place] GFR Calc Performed By: #### L 500.2500 ####[facility] [address] [place], [address] GAP 4 Low 5-15 [facility] Comment on above: Performed By: #### L 500.2500 ####[facility] [address] [place], [address] GFR/1.73 sq M.predicted among non-blacks MDRD (S/P/Bld) [Vol rate/Area] 40 mL/min/{1.73_m2} Low >60 [facility] Comment on above: Result Comment: Non- GFR Calc Performed By: #### L 500.2500 ####[facility] [address] [place], [address] Glucose [Mass/Vol] 112 mg/dL High 74-106 [facility] Comment on above: Result Comment: Fast ing Glucose result from 100 to 125 mg/dL suggests IMPAIRED HOMEOSTASIS per A.D.A. criteria. Performed By: #### L 500.2500 ####[facility] [address] [place], [address] Potassium [Moles/Vol] 4.7 mmol/L Normal 3.5-5.1 [facility] Comment on above: Performed By: #### L 500.2500 ####[facility] [address] [place], [address] Sodium [Moles/Vol] 138 mmol/L Normal 136-145 [facility] Comment on above: Performed By: #### L 500.2500 ####[facility] [address] [place], [address] Urea nitrogen [Mass/Vol] 20 mg/dL High 7-18 [facility] Comment on above: Performed By: #### L 500.2500 ####[facility] [address] [place], [address] 25([place])D3 [facility] 2023 25-hydroxyvitamin D3 [Mass/Vol] 80.6 ng/mL High 31.0-80.0 [facility] Comment on above: Order Comment: Speci men Type: BLOOD SPECIMEN Ordering Facility: [facility] Address: [address] [place] [address] Result Comment: Clas sification of 25 [place] Vitamin D status: Deficiency/Insufficiency: < or = 30 ng/ml. Sufficiency/Optimal Levels: 31-80 ng/mL Toxicity: > 100 ng/mL. Test performed by chemiluminescent immunoassay. Performed By: #### 2 4323-8, 25262-4, 3 #### [facility] CLIA [id number] [address] [place] [address] [place] CBC W Auto Differential pane l (Bld)on 04-14-2024 Basophils (Bld) [#/Vol] 0.03 10*3/uL Normal <0.11 [facility] Comment on above: Order Comment: Speci men Type: BLOOD SPECIMEN Ordering Facility: [facility] Address: [address] [place] [address] Performed By: #### 2 4323-8, 20560-2, 3 #### [facility] CLIA [id number] [address] [place] [address] [place] Basophils/100 WBC (Bld) 0.3 % Normal [facility] Comment on above: Order Comment: Speci men Type: BLOOD SPECIMEN Ordering Facility: [facility] Address: [address] [place] [address] Performed By: #### 2 4323-8, 12354-2, 3 #### [facility] CLIA [id number] [address] [place] [address] [place] Differential cell count method Nom (Bld) Auto Normal [facility] Comment on above: Order Comment: Speci men Type: BLOOD SPECIMEN Ordering Facility: [facility] Address: [address] [place] [address] Performed By: #### 2 4323-8, 60707-2, 6-3 #### [facility] CLIA [id number] [address] [place] [address] [place] Eosinophils (Bld) [#/Vol] 0.08 10*3/uL Normal <0.46 [facility] Comment on above: Order Comment: Speci men Type: BLOOD SPECIMEN Ordering Facility: [facility] Address: [address] [place] [address] Performed By: #### 2 4323-8, 77862-0, 3015-3 #### [facility] CLIA [id number] [address] [place] [address] [place] Eosinophils/100 WBC (Bld) 0.9 % Normal [facility] Comment on above: Order Comment: Speci men Type: BLOOD SPECIMEN Ordering Facility: [facility] Address: [address] [place] [address] Performed By: #### 2 4323-8, 94550-8, 3015-3 #### [facility] CLIA [id number] [address] [place] [address] [place] Erythrocyte distribution width (RBC) [Ratio] 13.2 % Normal 11.5-15.0 [facility] Comment on above: Order Comment: Speci men Type: BLOOD SPECIMEN Ordering Facility: [facility] Address: [address] [place] [address] Performed By: #### 2 4323-8, 89961-6, 3015-3 #### [facility] CLIA [id number] [address] [place] [address] [place] Hematocrit (Bld) [Volume fraction] 37.6 % Normal 36.0-46.0 [facility] Comment on above: Order Comment: Speci men Type: BLOOD SPECIMEN Ordering Facility: [facility] Address: [address] [place] [address] Performed By: #### 2 4323-8, 78299-5, 3016-3 #### [facility] CLIA [id number] [address] [place] [address] [place] Hemoglobin (Bld) [Mass/Vol] 11.5 g/dL Normal 11.5-15.5 [facility] Comment on above: Order Comment: Speci men Type: BLOOD SPECIMEN Ordering Facility: [facility] Address: [address] [place] [address] Performed By: #### 2 4323-8, 14258-1, 6-3 #### [facility] CLIA [id number] [address] [place] [address] [place] Immature granulocytes (Bld) [#/Vol] 0.03 10*3/uL Normal <0.10 [facility] Comment on above: Order Comment: Speci men Type: BLOOD SPECIMEN Ordering Facility: [facility] Address: [address] [place] [address] Performed By: #### 2 4323-8, 16585-1, 6-3 #### [facility] CLIA [id number] [address] [place] [address] [place] Immature granulocytes/100 WBC (Bld) 0.3 % Normal [facility] Comment on above: Order Comment: Speci men Type: BLOOD SPECIMEN Ordering Facility: [facility] Address: [address] [place] [address] Performed By: #### 2 4323-8, 78880-7, 6-3 #### [facility] CLIA [id number] [address] [place] [address] [place] Lymphocytes (Bld) [#/Vol] 3.03 10*3/uL Normal 1.00-4.00 [facility] Comment on above: Order Comment: Speci men Type: BLOOD SPECIMEN Ordering Facility: [facility] Address: [address] [place] [address] Performed By: #### 2 4323-8, 05056-8, 3016-3 #### [facility] CLIA [id number] [address] [place] [address] [place] Lymphocytes/100 WBC (Bld) 34.9 % Normal [facility] Comment on above: Order Comment: Speci men Type: BLOOD SPECIMEN Ordering Facility: [facility] Address: [address] [place] [address] Performed By: #### 2 4323-8, 91314-6, 6-3 #### [facility] CLIA [id number] [address] [place] [address] [place] MCH (RBC) [Entitic mass] 27.2 pg Normal 26.0-34.0 [facility] Comment on above: Order Comment: Speci men Type: BLOOD SPECIMEN Ordering Facility: [facility] Address: [address] [place] [address] Performed By: #### 2 4323-8, 08702-5, 6-3 #### [facility] CLIA [id number] [address] [place] [address] [place] MCHC (RBC) [Mass/Vol] 30.6 g/dL Normal 30.5-36.0 [facility] Comment on above: Order Comment: Speci men Type: BLOOD SPECIMEN Ordering Facility: [facility] Address: [address] [place] [address] Performed By: #### 2 4323-8, 28406-7, 6-3 #### [facility] CLIA [id number] [address] [place] [address] [place] MCV (RBC) [Entitic vol] 88.9 fL Normal 80.0-100.0 [facility] Comment on above: Order Comment: Speci men Type: BLOOD SPECIMEN Ordering Facility: [facility] Address: [address] [place] [address] Performed By: #### 2 4323-8, 73114-8, 3015-3 #### [facility] CLIA [id number] [address] [place] [address] [place] Monocytes (Bld) [#/Vol] 0.75 10*3/uL Normal <0.87 [facility] Comment on above: Order Comment: Speci men Type: BLOOD SPECIMEN Ordering Facility: [facility] Address: [address] [place] [address] Performed By: #### 2 4323-8, 72720-3, 3015-3 #### [facility] CLIA [id number] [address] [place] [address] [place] Monocytes/100 WBC (Bld) 8.7 % Normal [facility] Comment on above: Order Comment: Speci men Type: BLOOD SPECIMEN Ordering Facility: [facility] Address: [address] [place] [address] Performed By: #### 2 4323-8, 23992-7, 3 #### [facility] CLIA [id number] [address] [place] [address] [place] Neutrophils (Bld) [#/Vol] 4.75 10*3/uL Normal 1.45-7.50 [facility] Comment on above: Order Comment: Speci men Type: BLOOD SPECIMEN Ordering Facility: [facility] Address: [address] [place] [address] Performed By: #### 2 4323-8, 56052-8, 3 #### [facility] CLIA [id number] [address] [place] [address] [place] Neutrophils/100 WBC (Bld) 54.9 % Normal [facility] Comment on above: Order Comment: Speci men Type: BLOOD SPECIMEN Ordering Facility: [facility] Address: [address] [place] [address] Performed By: #### 2 4323-8, 60138-9, 3015-3 #### [facility] CLIA [id number] [address] [place] [address] [place] Nucleated RBC (Bld) [#/Vol] 10*3/uL Normal <0.01 [facility] Comment on above: Order Comment: Speci men Type: BLOOD SPECIMEN Ordering Facility: [facility] Address: [address] [place] [address] Performed By: #### 2 4323-8, 64741-8, 3015-3 #### [facility] CLIA [id number] [address] [place] [address] [place] Nucleated RBC/100 WBC (Bld) [Ratio] 0.0 /100 WBC Normal [facility] Comment on above: Order Comment: Speci men Type: BLOOD SPECIMEN Ordering Facility: [facility] Address: [address] [place] [address] Performed By: #### 2 4323-8, 12298-6, 3 #### [facility] CLIA [id number] [address] [place] [address] [place] Platelet mean volume (Bld) [Entitic vol] 11.3 fL Normal 9.0-12.7 [facility] Comment on above: Order Comment: Speci men Type: BLOOD SPECIMEN Ordering Facility: [facility] Address: [address] [place] [address] Performed By: #### 2 4323-8, 45080-3, 3 #### [facility] CLIA [id number] [address] [place] [address] [place] Platelets (Bld) [#/Vol] 253 10*3/uL Normal 150-400 [facility] Comment on above: Order Comment: Speci men Type: BLOOD SPECIMEN Ordering Facility: [facility] Address: [address] [place] [address] Performed By: #### 2 4323-8, 14139-5, 3015-3 #### [facility] CLIA [id number] [address] [place] [address] [place] RBC (Bld) [#/Vol] 4.23 10*6/uL Normal 3.90-5.20 [facility] Comment on above: Order Comment: Speci men Type: BLOOD SPECIMEN Ordering Facility: [facility] Address: [address] [place] [address] Performed By: #### 2 4323-8, 31679-1, 3016-3 #### [facility] CLIA [id number] [address] [place] [address] [place] WBC (Bld) [#/Vol] 8.67 10*3/uL Normal 3.70-11.00 [facility] Comment on above: Order Comment: Speci men Type: BLOOD SPECIMEN Ordering Facility: [facility] Address: [address] [place] [address] Performed By: #### 2 4323-8, 01872-1, 3016-3 #### [facility] CLIA [id number] [address] [place] [address] [place] CNOVon 04-14-2024 CNOV Office Visit (FAMPWS ) -- SILVESTRESANDRINE SEQUEIRA Haja ([id number]) 1940 F Date Time Provider Department 04/14/24 1:40 PM SAMANTHA REYES FAMPWS During your visit today, we recorded the following information about you: Pulse Respiration Blood pressure Weight 88/minute 18/minute 108/62 86.2 kg Samantha Reyes MD 04/14/2024 6:45 PM Signed Chief Complaint Patient presents with: F/U 6 Month HPI Sandrine Cline Silvestre is a 83 year old female who presents here today for 6 month follow up. Uses cane, denies any falls. Taking Carafate 1 gram QID and Prevacid 30 mg daily for GERD and Gi issues. Taking Mybetriq 50 mg mg daily and Ditropan xl 10 mg daily for urinary incontinence. Follows with Urologist Dr. Parks. Hem/Onc: Hx of ovarian cancer. Previously followed with Dr. Landers, but is cancer free. Thyroid: Taking Synthroid 125 mcg once daily. Stable on this dosage and denies missing dosages often, maybe occasional. HTN: Checking BP at home, reports her readings vary. Last night her reading was 139/73, earlier that day 109-60's. Has been dealing with issues with chest pain, sob and dizziness. Have some issues with a-fib. Follows with [facility], who's been doing cardiac testing on her. Is on Altace 10 mg daily, HCTZ 12.5 mg daily, Lasix 40 mg half pill BID and Potassium 20 mEq daily. In Cardio notes she was to decrease Ramipril to 5 mg daily. CKD: monitored with labs. Vit D: Deficient, monitoring through routine labs. Takes Vit D 50,000 international unit(s) once weekly. Lipid/CAD: Taking Crestor 40 mg daily and niacin er 500 mg BID. Per last OV from Cardio she was to decrease her regimen to 20 mg daily. Tries to watch diet, working on losing weight. Started out at 220 lbs over a year ago, now 190 lbs. Denies much exercise due to her back and arthritis pain. Does try to walk as much as she can. A-fib/PE/DVT: Is on Eliquis 5 mg 1 pill BID. Notes some issues with afib acting up. Notes feeling tired and a pressure on the top/back of her head. Is following with Cardiology on her recent cardiac test results, has not yet heard from them in regards to this. Arthritis/Back pain - Reports increased arthritis pain. Also has back issues. Taking Tizanidine 4 mg prn and Tylenol 500 mg 2 tabs po prn. Using a cane with ambulating. HM - Shingles and RSV through Pharmacy due to Medicare Insurance. Past medical history, appointments, medications, allergies reviewed. [...] 2 levels APPENDECTOMY CABG, ARTERIAL, FOUR+ 02/26/2000 CARDIOVERSION N/A 03/21/2023 COLONOSCOPY 09/27/2004 COLONOSCOPY FLX DX W/COLLJ SPEC WHEN PFRMD 12/07/2014 Colonoscopy ESOPHAGOGASTRODUODENOSCOPY TRANSORAL DIAGNOSTIC 01/23/2012 EGD HEART SURGERY HX LIG/TRNSXJ FLP TUBE ABDL/VAG APPR UNI/BI NEUROPLASTY AND/TRANSPOS MEDIAN NRV CARPAL TUNNE 09/11/2014 Left CTR NEUROPLASTY AND/TRANSPOSITION ULNAR NERVE ELBOW 09/11/2014 Ulnar nerve decompression left elbow OOPHORECTOMY PARTIAL/TOTAL UNI/BI 10/19/2007 Ovarian cancer, [facility] PAST SURGICAL HISTORY OF 05/28/1973 first [...] Allergen Reactions Streptokinase Hives Poison Araceli Poison [place] Extract Itching Current Medications Current Outpatient Medications on File Prior to Visit Medication Sig potassium chloride 20 mEq TbER Take 1 tablet by mouth once daily. cholecalciferol (more content not included)... Normal [facility] Comprehensive metabolic 2000 panelon 04-14-2024 Albumin [Mass/Vol] 4.1 g/dL Normal 3.9-4.9 [facility] Comment on above: Order Comment: Speci men Type: BLOOD SPECIMEN Ordering Facility: [facility] Address: [address] [place] [address] Performed By: #### 2 4323-8, 20759-2, 3015-3 #### [facility] CLIA [id number] [address] [place] [address] [place] ALP [Catalytic activity/Vol] 52 U/L Normal 34-123 [facility] Comment on above: Order Comment: Speci men Type: BLOOD SPECIMEN Ordering Facility: [facility] Address: [address] [place] [address] Performed By: #### 2 4323-8, 45013-8, 3015-3 #### [facility] CLIA [id number] [address] [place] [address] [place] ALT [Catalytic activity/Vol] 14 U/L Normal 7-38 [facility] Comment on above: Order Comment: Speci men Type: BLOOD SPECIMEN Ordering Facility: [facility] Address: [address] [place] [address] Performed By: #### 2 4323-8, 47620-8, 3 #### [facility] CLIA [id number] [address] [place] [address] [place] Anion gap [Moles/Vol] 12 mmol/L Normal 8-15 [facility] Comment on above: Order Comment: Speci men Type: BLOOD SPECIMEN Ordering Facility: [facility] Address: [address] [place] [address] Performed By: #### 2 4323-8, 56629-7, 3015-3 #### [facility] CLIA [id number] [address] [place] [address] [place] AST [Catalytic activity/Vol] 20 U/L Normal 13-35 [facility] Comment on above: Order Comment: Speci men Type: BLOOD SPECIMEN Ordering Facility: [facility] Address: [address] [place] [address] Performed By: #### 2 4323-8, 13071-0, 6-3 #### [facility] CLIA [id number] [address] [place] [address] [place] Bilirubin [Mass/Vol] 0.5 mg/dL Normal 0.2-1.3 [facility] Comment on above: Order Comment: Speci men Type: BLOOD SPECIMEN Ordering Facility: [facility] Address: [address] [place], [place] [address] Performed By: #### 2 4323-8, 28696-8, 3015-3 #### [facility] CLIA [id number] [address] [place], [place] [address] [place] Calcium [Mass/Vol] 10.0 mg/dL Normal 8.5-10.2 [facility] Comment on above: Order Comment: Speci men Type: BLOOD SPECIMEN Ordering Facility: [facility] Address: [address] [place], [place] [address] Performed By: #### 2 4323-8, 35013-0, 3015-3 #### [facility] CLIA [id number] [address] [place], [place] [address] [place] Chloride [Moles/Vol] 104 mmol/L Normal 98-107 [facility] Comment on above: Order Comment: Speci men Type: BLOOD SPECIMEN Ordering Facility: [facility] Address: [address] [place] [address] Performed By: #### 2 4323-8, 37198-8, 3015-3 #### [facility] CLIA [id number] [address] [place] [address] [place] CO2 [Moles/Vol] 26 mmol/L Normal 22-30 [facility] Comment on above: Order Comment: Speci men Type: BLOOD SPECIMEN Ordering Facility: [facility] Address: [address] [place] [address] Performed By: #### 2 4323-8, 69625-1, 6-3 #### [facility] CLIA [id number] [address] [place] [address] [place] Creatinine [Mass/Vol] 1.17 mg/dL High 0.58-0.96 [facility] Comment on above: Order Comment: Steph wiggins Type: BLOOD SPECIMEN Ordering Facility: [facility] Address: [address] [place] [address] Performed By: #### 2 4323-8, 94833-1, 6-3 #### [facility] CLIA [id number] [address] [place] [address] [place] Creatinine and Glomerular filtration rate.predicted panel (S/P/Bld) 46 mL/min/1.73m??? Low >=60 [facility] Comment on above: Order Comment: Steph wiggins Type: BLOOD SPECIMEN Ordering Facility: [facility] Address: [address] [place] [address] Result Comment: Mary mated Glomerular Filtration Rate (eGFR) is calculated using the 2020 CKD-EPI creatinine equation. This equation utilizes serum creatinine, sex, and age as parameters. The creatinine assay has traceable calibration to isotope dilution-mass spectrometry. Refer to KDIGO guidelines for clinical interpretation. In patients with unstable renal function, e.g. those with acute kidney injury, the eGFR may not accurately reflect actual GFR. Performed By: #### 2 4323-8, 22958-1, 3015-3 #### [facility] CLIA [id number] [address] [place] [address] [place] Glucose [Mass/Vol] 103 mg/dL High 74-99 [facility] Comment on above: Order Comment: Steph wiggins Type: BLOOD SPECIMEN Ordering Facility: [facility] Address: [address] [place] [address] Result Comment: The [place] Diabetes Association (ADA) provides guidance for cutoff values for fasting glucose and random glucose. The ADA defines fasting as no caloric intake for at least 8 hours. Fasting plasma glucose results between 100 to 125 mg/dL indicate increased risk for diabetes (prediabetes). Fasting plasma glucose results greater than or equal to 126 mg/dL meet the criteria for diagnosis of diabetes. In the absence of unequivocal hyperglycemia, results should be confirmed by repeat testing. In a patient with classic symptoms of hyperglycemia or hyperglycemic crisis, random plasma glucose results greater than or equal to 200 mg/dL meet the criteria for diagnosis of diabetes. Reference: Standards of Medical Care in Diabetes 2016, [place] Diabetes Association. Diabetes Care. 2016.39(Suppl 1). Performed By: #### 2 4323-8, 29840-9, 3015-3 #### [facility] CLIA [id number] [address] [place] [address] [place] Potassium [Moles/Vol] 3.7 mmol/L Normal 3.7-5.1 [facility] Comment on above: Order Comment: Speci men Type: BLOOD SPECIMEN Ordering Facility: [facility] Address: [address] [place] [address] Performed By: #### 2 4323-8, 71753-4, 3 #### [facility] CLIA [id number] [address] [place] [address] [place] Protein [Mass/Vol] 6.2 g/dL Low 6.3-8.0 [facility] Comment on above: Order Comment: Speci men Type: BLOOD SPECIMEN Ordering Facility: [facility] Address: [address] [place], [place] [address] Performed By: #### 2 4323-8, 34641-8, 3 #### [facility] CLIA [id number] [address] [place] [address] [place] Sodium [Moles/Vol] 142 mmol/L Normal 136-144 [facility] Comment on above: Order Comment: Speci men Type: BLOOD SPECIMEN Ordering Facility: [facility] Address: [address] [place], [place] [address] Performed By: #### 2 4323-8, 36282-8, 3016-3 #### [facility] CLIA [id number] [address] [place] [address] [place] Urea nitrogen [Mass/Vol] 20 mg/dL Normal 7-21 [facility] Comment on above: Order Comment: Speci men Type: BLOOD SPECIMEN Ordering Facility: [facility] Address: [address] [place] [address] Performed By: #### 2 4323-8, 54963-7, 3015-3 #### [facility] CLIA [id number] [facility] [place] [address] [place] Lipid 1996 panelon 4 Cholesterol [Mass/Vol] 147 mg/dL Normal <200 [facility] Comment on above: Order Comment: Speci men Type: BLOOD SPECIMEN Ordering Facility: [facility] Address: [address] [place] [address] Result Comment: <200 mg/dL, Desirable 200-239 mg/dL, Borderline high >239 mg/dL, High Performed By: #### 2 4323-8, 28364-5, 3015-3 #### [facility] CLIA [id number] [address] [place] [address] [place] Cholesterol in HDL [Mass/Vol] 43 mg/dL Normal >39 [facility] Comment on above: Order Comment: Speci men Type: BLOOD SPECIMEN Ordering Facility: [facility] Address: [address] [place] [address] Result Comment: 40-5 9 mg/dL, Acceptable >59 mg/dL, High: Negative risk factor for coronary heart disease <40 mg/dL, Low: Positive risk factor for coronary heart disease Performed By: #### 2 4323-8, 82115-8, 3015-3 #### [facility] CLIA [id number] [address] [place], [place] [address] [place] Cholesterol in LDL [Mass/Vol] 47 mg/dL Normal <100 [facility] Comment on above: Order Comment: Speci men Type: BLOOD SPECIMEN Ordering Facility: [facility] Address: [address] [place] [address] Result Comment: <100 mg/dL, Optimal 100-129 mg/dL, Near optimal/above optimal 130-159 mg/dL, Borderline high 160-189 mg/dL, High >189 mg/dL, Very high Secondary prevention optimal LDL Cholesterol levels are recommended to be < 70 mg/dL Performed By: #### 2 4323-8, 74973-5, 3015-3 #### [facility] CLIA [id number] [address] [facility] [place] [address] [place] Cholesterol in LDL/Cholesterol in HDL [Mass ratio] 1.09 {ratio} Normal <2.54 [facility] Comment on above: Order Comment: Steph wiggins Type: BLOOD SPECIMEN Ordering Facility: [facility] Address: [address] [place] [address] Result Comment: Refe pravin: 1. National Cholesterol Education Program ATP III Guideline At-A-Glance Quick Desk Reference: National Heart, Lung, and Blood [place]. National Institutes of Health. 2001: NIH Publication No. 01-3305. 2. An International Atherosclerosis Society position paper: global recommendations for the management of dyslipidemia: executive summary, Atherosclerosis. 2014: 232(2):410-413. Performed By: #### 2 4323-8, 10651-6, 3015-3 #### [facility] CLIA [id number] [address] [place], [place] [address] [place] [id number] [place] Cholesterol in VLDL [Mass/Vol] 57 mg/dL High <30 [facility] Comment on above: Order Comment: Steph wiggins Type: BLOOD SPECIMEN Ordering Facility: [facility] Address: [address] [place] [address] Performed By: #### 2 4323-8, 23487-4, 3015-3 #### [facility] CLIA [id number] [address] [facility] [address] [address] [place] Cholesterol non HDL [Mass/Vol] 104 mg/dL Normal <130 [facility] Comment on above: Order Comment: Speci men Type: BLOOD SPECIMEN Ordering Facility: [facility] Address: [address] [place] [address] Result Comment: <130 mg/dL, Optimal 130-159 mg/dL, Near optimal/above optimal 160-189 mg/dL, Borderline high 190-219 mg/dL, High >219 mg/dL, Very high Secondary prevention optimal non HDL Cholesterol levels are recommended to be <100 mg/dL Performed By: #### 2 4323-8, 97618-9, 6-3 #### [facility] CLIA [id number] [address] [place] [address] [place] Cholesterol.total/Chol esterol in HDL [Mass ratio] 3.42 {ratio} Normal <5.10 [facility] Comment on above: Order Comment: Speci men Type: BLOOD SPECIMEN Ordering Facility: [facility] Address: [address] [place] [address] Performed By: #### 2 4323-8, 79710-0, 3015-3 #### [facility] CLIA [id number] [address] [place] [address] [place] FASTING TIME 12 hrs Normal [facility] Comment on above: Order Comment: Alanai men Type: BLOOD SPECIMEN Ordering Facility: [facility] Address: [address] [place] [address] Performed By: #### 2 4323-8, 10352-1, 3015-3 #### [facility] CLIA [id number] [address] [place] [address] [place] Triglyceride [Mass/Vol] 284 mg/dL High <150 [facility] Comment on above: Order Comment: Speci men Type: BLOOD SPECIMEN Ordering Facility: [facility] Address: [address] [place] [address] Result Comment: <150 mg/dL, Normal 150-199 mg/dL, Borderline high 200-499 mg/dL, High >499 mg/dL, Very high Performed By: #### 2 4323-8, 33878-5, 3015-3 #### [facility] CLIA [id number] [address] [place], [place] [address] [place] TSH SerPl-aCncon 04-14-2024 TSH Qn 0.522 m[IU]/L Normal 0.270-4.20 0 [facility] Comment on above: Order Comment: Speci men Type: BLOOD SPECIMEN Ordering Facility: [facility] Address: [address] [place] [address] Performed By: #### 2 4323-8, 46245-7, 3016-3 #### [facility] CLIA [id number] [address] [place] [address] [place] Echo Complete W/ Contraston 04-10-2024 Echo Complete W/ Contrast [facility] [address] [facility] [place] [address] Echo Complete W/ Contrast 04/10/24 0916 MR#: [id number] Acct: [id number] Name: SANDRINE RIVERS Rep #: [id number] : 1940 83 From: Gorge Naik MD Attending Dr: Dr. Gorge Naik MD Status: REG CLI Ordering Dr: Gorge Naik MD Date: 04/10/24 Location: CVS Sex: F C Admitted: Reason For Study: ATRIAL FIBRILLATION Procedure This was a 2D Doppler, Color Flow transthoracic echocardiogram. Contrast injection was performed. Exam performed in department. Left Ventricle Normal LV size. Mild concentric left ventricular hypertrophy. Borderline LV systolic function. Estimated EF 45 to 50%.. Unable to assess diastolic dysfunction due to arrhythmia. Right Ventricle Normal right ventricle. Atria The left atrium is severely enlarged. Normal right atrium. Mitral Valve Moderate mitral annular calcification. Mild-Moderate (1-2+) mitral valve insufficiency. Tricuspid Valve Mild (1+) tricuspid valve insufficiency. Right ventricular systolic pressure estimated to be 46 mmHg. Aortic Valve Moderately calcified the right coronary cusp of the aortic valve. Aortic valve sclerosis without stenosis. Mild aortic valve regurgitation. Pulmonic Valve The pulmonic valve is not well visualized. Great Vessels Normal sized aortic root. Pericardium/Pleural Trivial pericardial effusion. Medication 22 gauge I.V. with prn adaptor inserted into right arm. Diluted definity 2ml given slow IV push to enhance endocardial definition. MMode/2D Measurements Calculations LVIDd: 4.6 cm IVSd: 1.4 cm LVOT diam: 2.2 cm LVIDs: 2.8 cm LVPWd: 1.1 cm RVDd: 2.8 cm FS: 38.8 % LVOT area: 3.7 cm2 ___ asc Aorta Diam: 3.6 cm LAV(MOD-bp): 48.2 ml LVAd ap4: 23.8 cm2 LAV(MOD-bp) Indexed: 25.3 ml/m2 LVLd ap4: 6.3 cm LAV(MOD-sp2): 43.2 ml EDV(MOD-sp4): 75.6 ml LAV(MOD-sp4): 52.9 ml EDV(sp4-el): 76.2 ml LVAs ap4: 14.2 cm2 LVLs ap4: 5.5 cm ESV(MOD-sp4): 30.8 ml ESV(sp4-el): 31.0 ml EF(MOD-sp4): 59.2 % EF(sp4-el): 59.4 % ___ LVAd ap2: 22.4 cm2 SV(MOD-sp4): 44.8 ml SV(MOD-sp2): 31.3 ml LVLd ap2: 7.0 cm SI(MOD-sp4): 23.5 ml/m2 SI(MOD-sp2): 16.4 ml/m2 EDV(MOD-sp2): 59.9 ml EDV(sp2-el): 61.3 ml LVAs ap2: 13.4 cm2 LVLs ap2: 5.8 cm ESV(MOD-sp2): 28.6 ml ESV(sp2-el): 26.2 ml EF(MOD-sp2): 52.3 % ___ SV(sp4-el): 45.2 ml Ao sinus diam: 3.[address] Junction: 2.5 cm ___ LA dimension(2D): 4.4 cm LA A4 area: 19.4 cm2 RA A4 area: 10.7 cm2 ___ TAPSE: 1.3 cm Time Measurements MV dec time: 0.13 sec Doppler Measurements Calculations MV E max liang: 94.0 cm/sec Lat Peak E' Liang: 11.8 cm/sec Med Peak E' Liang: 5.6 cm/sec E/E' lat: 8.0 E/E' med: 16.7 ___ Ao V2 max: 142.8 cm/sec LV V1 max: 75.5 cm/sec SV(LVOT): 48.7 ml Ao max P.2 mmHg LV V1 max P.3 mmHg Ao V2 mean: 97.9 cm/sec LV V1 mean P.2 mmHg Ao mean P.3 mmHg LV V1 mean: 53.0 cm/sec Ao V2 VTI: 27.2 cm LV V1 VTI: 13.1 cm AV (velocity ratio): 0.48 TERRI(I,D): 1.8 cm2 TERRI(V,D): 2.0 cm2 ___ PA V2 max: 92.7 cm/sec TR max liang: 278.8 cm/sec TR max P.1 mmHg ECHO/Echo Complete W/ Contrast Interpretation Summary Mild concentric left ventricular hypertrophy. Borderline LV systolic function. Estimated EF 45 to 50%.. The left atrium is severely enlarged. Moderate mitral annular calcification. Mild-Moderate (1-2+) mitral valve insufficiency. Mild (1+) tricuspid valve insufficiency. Right ventricular systolic pressure estimated to be 46 mmHg. Moderately calcified the right coronary cusp of the aortic valve. Aortic valve sclerosis without stenosis. Mild aortic valve regurgitation. Ordering Physician: Gorge Naik Referring Physician: MD Samantha Reyes Performed By: Marce Joseph, KEVIN 11/14/24 1213 Date Gorge Naik MD CC: Dr. Gorge Naik MD; Dr. Samantha Reyes MD Date Dictated: 04/10/24915 Date Transcribed: 04/10/241212 Chief Vendor Quality: Signed Normal [facility] Stress Reporton 04-10-2024 Stress Report [facility] [address] [place] [address] MR#: [id number] Acct: [id number] Name: SANDRINE RIVERS Rep #: [id number] : 1940 83 From: Gorge Naik MD Primary Care: Dr. Samantha Reyes MD Status: REG CLI Referring Dr: Gorge Naik MD Sex: F C Stress Test Report Date: 04/10/2024 Procedure: Pharmacologic stress nuclear imaging study Indications: Atrial fibrillation Consent: Per the patient Procedure: The patient underwent pharmacologic (Regadenoson 0.4mg ) evaluation with a peak heart rate of 93 beats per minute (67%predicted maximal heart rate) and a peak blood pressure of 126/70 mmHg. The baseline ECG demonstrated atrial fibrillation. The peak pharmacologic ECG demonstrated no diagnostic ischemic changes. Baseline atrial fibrillation. There was no complaint of chest discomfort during pharmacologic infusion or recovery. The patient was injected with 11.4 millicuries of technetium 99m Cardiolite and subsequently rest SPECT Cardiolite nuclear imaging was obtained in the horizontal long, vertical long, and short axis views. The patient underwent pharmacologic (Regadenoson) evaluation. The patient was injected with 34.2 millicuries of technetium 99m Cardiolite and subsequently stress SPECT Cardiolite nuclear imaging was obtained in the horizontal long, vertical long, and short axis views. A gated Cardiolite study at peak stress was obtained. The examination was stopped secondary to completion of protocol. Rest and stress SPECT Cardiolite nuclear imaging status post realignment, normalization, and attenuation correction demonstrate no fixed or reversible perfusion defects. There is end systolic thickening and brightening. The gated Cardiolite study demonstrates myocardial thickening and inward wall motion. The reported LVEF is 63%. Impression: 1. Pharmacologic (Regadenoson) evaluation 2. Peak pharmacologic ECG with no diagnostic ischemic changes. 3. Baseline atrial fibrillation. 5. Rest and stress SPECT Cardiolite nuclear imaging demonstrate relative uniform tracer uptake and myocardial perfusion appearing within normal limits. 6. The gated Cardiolite study reports an LVEF of 63%. This note was generated with [employer] software. It may contain incorrect words, spelling, and punctuation that were not noted in checking the note before signing. 04/10/24 1258 Date Gorge Naik MD CC: Dr. Gorge Naik MD; Dr. Samantha Reyes MD Date Dictated: 04/10/24 1257 Date Transcribed: 04/10/24 1257 Chief Vendor Quality: BONILLA Signed Normal [facility] Carotid Duplex Ultrasoundon 04-04-2024 Carotid Duplex Ultrasound [facility] [address] [facility] [place] [address] Carotid Duplex Ultrasound 04/04/24 0957 MR#: [id number] Acct: [id number] Name: SANDRINE RIVERS Rep #: [id number] : 1940 83 From: Gavin Story MD Attending Dr: Dr. Gorge Naik MD Status: REG CLI Ordering Dr: Gorge Naik MD Date: 04/04/24 Location: CVS Sex: F C Admitted: Reason For Study: Lightheadedness Rt. Velocities/BP Lt. Velocities/BP Prox CCA 44.7/11.6 cm/sec. Prox CCA 64.2/12.6 cm/sec. Mid CCA 47.5/12.6 cm/sec. Mid CCA 66.7/20 cm/sec. Dist CCA 46.6/15.4 cm/sec. Dist CCA 46.6/14.5 cm/sec. Prox ICA 54.1/22 cm/sec. Prox ICA 53.1/24.5 cm/sec. Mid ICA 62.6/19.2 cm/sec. Mid ICA 60.8/17.9 cm/sec. Dist ICA 55.4/17.1 cm/sec. Dist ICA 49.5/20.6 cm/sec. Rt. ICA/CCA = 1.32. Lt. ICA/CCA = 0.92. Prox ECA 55.1/8.8 cm/sec. Prox ECA 115.6/9.7 cm/sec. Rt. Vert. 66.7/20 cm/sec. Lt. Vert. 50.9/14.6 cm/sec. Right Extracranial There is homogeneous, smooth atherosclerotic plaque noted in the right common carotid artery. There is heterogeneous, irregular atherosclerotic plaque noted in the right internal carotid artery. There is heterogeneous, irregular atherosclerotic plaque noted in the right external carotid artery. Antegrade flow is noted in the right vertebral artery. Left Extracranial There is intimal thickening but no significant atherosclerotic plaque noted in the left common carotid artery. There is heterogeneous, irregular atherosclerotic plaque noted in the left internal carotid artery. There is heterogeneous, irregular atherosclerotic plaque noted in the left external carotid artery. The left external carotid artery is not well visualized. Antegrade flow is noted in the left vertebral artery. Procedure Carotid Duplex 56119. This is a Carotid Duplex examination using B-mode, color flow and specral Doppler. Exam performed in department. VL/Carotid Duplex Ultrasound Interpretation Summary Mild (<50%) stenosis right extracranial internal carotid. Mild (<50%) stenosis left extracranial internal carotid. Patent and antegrade vertebrals bilaterally. Ordering Physician: Gorge Naik Referring Physician: MD Amy Samantha Performed By: Monse Mcdonough RVT 04/07/242019 Date Gavin Story MD CC: Dr. Gorge Naik MD; Dr. Samantha Reyes MD Date Dictated: 04/04/24956 Date Transcribed: 04/07/242019 Chief Vendor Quality: Signed Normal [facility] Cardiology Visit Reporton Cardiology Visit Report [facility] [address] [place] [address] OFFICE VISIT Date of Service: 03/24/24 MR#: [id number] Acct: [id number] Name: SANDRINE RIVERS Rep #: [id number] : 1940 Provider: Dr. Gorge Naik MD Age/Sex: 83/F [place] [facility] [place] Status: Signed [facility] History of Present Illness Details: This pleasant 83-year-old lady comes in for regular follow-up visit. Denies any chest pains either at rest or with exertion. She does have some shortness of breath with exertion. Denies any palpitations. No orthopnea or PND. She occasionally feels lightheaded. No syncope or presyncope. Intake Vital Signs 08/22/23 14:28 03/24/24 08:43 Height 5 ft 4 in 5 ft 4 in Weight: 189 lb BMI 32.4 BP 112/66 Blood Pressure Location Lt brachial Position Sitting Respiration 16 Pulse 55 L Pulse Source NIBP Intake Visit Reasons: 6 M FU [employer]ery [employer] Required: No Accompanied by: Self Is patient in pain?: Yes (chronic; arthritis) Allergies poison araceli extract Allergy (Verified 03/24/24 13:28) Itching poison oak extract Allergy (Verified 03/24/24 13:28) Itching streptokinase (Streptokinase) Adverse Reaction (Severe, Verified 03/24/24 13:28) Hives Medications ???Medication ???Instructions ???Recorded ???Confirmed ???Type mirabegron 50 mg tablet,extended 50 mg PO DAILY 10/04/21 03/24/24 History release 24 hr lansoprazole 30 mg capsule,delayed 30 mg PO DAILY 02/03/22 03/24/24 History release aspirin 81 mg tablet,delayed 81 mg PO DAILY 08/11/22 03/24/24 History release (Adult Low Dose Aspirin) niacin 500 mg tablet,extended 500 mg PO BID #180 tabs 01/19/23 03/24/24 Rx release 24 hr levothyroxine 125 mcg tablet 125 mcg PO DAILY 02/01/23 03/24/24 History sucralfate 1 gram tablet 1 g PO QACHS 02/01/23 03/24/24 History nitroglycerin 0.4 mg sublingual 0.4 mg sublingual Q5M PRN Chest 03/15/23 03/24/24 Rx tablet Pain #25 tabs potassium chloride 20 mEq 20 meq PO DAILY #90 tabs 03/15/23 03/24/24 Rx tablet,extended release calcium carbonate (Calcium 600) 600 mg PO DAILY 04/13/23 03/24/24 History acetaminophen 500 mg capsule 500 mg PO Q6H PRN 08/22/23 03/24/24 History albuterol sulfate 90 mcg/actuation 2 puff inhalation Q6H PRN 08/22/23 03/24/24 History aerosol inhaler furosemide 40 mg tablet (Lasix) 20 mg PO BID edema 08/22/23 03/24/24 History oxybutynin chloride 10 mg 10 mg PO QDAY 08/22/23 03/24/24 History tablet,extended release 24 hr cholecalciferol (vitamin D3) 1,250 1,250 mcg PO QWEEK 03/24/24 03/24/24 History mcg (50,000 unit) capsule rosuvastatin 20 mg tablet 20 mg PO BID 03/24/24 03/24/24 History apixaban 5 mg tablet (Eliquis) 5 mg PO BID #60 tabs 03/27/24 Rx atenolol 50 mg tablet 50 mg PO BID Heart/BP #180 tabs 04/03/24 Rx hydrochlorothiazide 12.5 mg tablet 12.5 mg PO DAILY #90 tabs 04/03/24 Rx ramipril 10 mg capsule 10 mg PO QDAY #90 caps 04/03/24 Rx Ejection fraction %: 55 Have you fallen in the past year?: No PFSH Medical History Anticoagulant long-term use Atherosclerotic heart disease of 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 coronary artery without angina pectoris Atrial fibrillation Chest heaviness Chest pain Chest pain due to CAD Coronary artery disease Dyslipidemia Dyspnea Dyspnea on exertion Essential hypertension Fatigue GERD (gastroesophageal reflux disease) History of acute myocardial infarction of anterolateral wall (02/2000) History of cardioversion History of DVT (deep vein thrombosis) History of pulmonary embolism Hypertension Hypothyroid ivc filter retreval Left-sided pyelonephritis Other mcc (current) drug therapy Ovarian cancer Ovarian cancer Overactive bladder Paroxysmal atrial fibrillation Pericardial effusion Pulmonary emboli Pure hypercholesterolemia Small bowel obstruction Stress incontinence Wide-complex tachycardia Surgical History H/O coronary artery bypass surgery ( 02/2000) History of back surgery History of hysterectomy History of thyroidectomy Hx of appendectomy Stented coronary artery (10/18/07) Family History Brother Hypertension Cancer Mother CVA (cerebral vascular accident) Hypertension Social History Smoking Status: Former smoker how long ago did patient quit smokin years ago alcohol intake: current alcohol intake frequency: holidays/special occasions only Alcohol type: wine substance use type: does not use caffeine: No what type of physical activity do you participate in: none seatbelt use: always ROS Const Const: Positive for fatigue and headache(s) (pressure (more content not included)... Normal [facility] 02-28-2024 [facility] Telephone (VIBHAWS) -- SANDRINE RIVERS ([id number]) 1940 F Date Time Provider Department 02/28/24 [facility] During your visit today, we recorded the following information about you: Alina Sanon LPN 02/28/2024 12:44 PM Signed Pt calling with concerns about her BP. She reports the following readings: 02/26/24 121/65 02/27/24 108/61 AM 117/64 PM 02/28/24 112/62 Pt states she feels fine no concerns. Explained to pt that I did not see anything abnormal readings. Pt states understanding. Pt reports that her temp was 88.8, we discussed the accuracy of her thermometer AND she states she has had it for some time now. Pt has an appt 04/14/24 with pcp. Pt will monitor her BP AND will call with any concerns. Pt received covid AND flu vaccines 02/26/24 at the pharmacy. Pt's imms record updated in chart. EVELINA Boogie Mark D, MD 02/28/2024 4:35 PM Signed Noted Samantha Reyes MD Allergies As of Date: 02/28/2024 Noted Allergy Reaction STREPTOKINASE 05/19/2018 4 - Hives POISON ARACELI 03/13/2005 POISON OAK EXTRACT 02/03/2022 9 - Itching Date Reviewed: 10/11/2023 Reviewed by: Julia Patel MA - Fully Assessed Reason for Visit: Patient Update [1234] Prescriptions as of 02/28/2024 - ramipril (ALTACE) 10 mg capsule Take by mouth once daily. - tiZANidine (ZANAFLEX) 4 mg tablet Take 1 tablet by mouth every 8 hours as needed (muscle spasms). - oxybutynin ER (DITROPAN XL) 10 mg 24 hr tablet Take 1 tablet by mouth once daily. - sucralfate (CARAFATE) 1 gram tablet Take 1 tablet by mouth before meals and at bedtime. - rosuvastatin (CRESTOR) 40 mg tablet Take 1 tablet by mouth once daily. - niacin ER (NIASPAN) 500 mg tablet Take 1 tablet by mouth two times a day. - furosemide (LASIX) 40 mg tablet Take 1 tablet by mouth once daily. - hydroCHLOROthiazide (MICROZIDE) 12.5 mg capsule Take 1 capsule by mouth once daily. - potassium chloride 20 mEq TbER Take 1 tablet by mouth once daily. - lansoprazole (PREVACID) 30 mg capsule Take 1 capsule by mouth daily before breakfast. 1/2 hr before meal. - levothyroxine (LEVOXYL) 125 mcg tablet Take 1 tablet by mouth once daily. Take on empty stomach. For thyroid. - cholecalciferol, Vitamin D3, (VITAMIN D3) 1,250 mcg (50,000 unit) cap capsule Take 1 capsule by mouth one time a week. - apixaban (ELIQUIS) 5 mg tab(s) Take 5 mg by mouth twice daily. - mirabegron (MYRBETRIQ) 50 mg Tb24 Take 1 tablet by mouth once daily. - albuterol HFA (PROAIR HFA) 90 mcg/actuation inhaler Inhale 2 Puffs as instructed every 6 hours as needed. - nitroglycerin(NITROQUICK 0.4 MG SUBLINGUAL TAB) - ASPIRIN 81 MG TAB Take one(1) tablet daily. - CALCIUM 500 MG TAB Take one(1) tablet two(2) times daily. - TYLENOL PM 25 MG-500 MG TAB Take two(2) at bedtime - ATENOLOL 50 MG TAB Take one(1) tablet two(2) times daily. Meds Comments as of 04/10/2023: Using [facility] pharmacy. Problem List As Of Date 02/28/2024 Noted Resolved Coronary atherosclerosis [I25.10] 03/20/2005 AORTOCORONARY BYPASS STATUS [Z95.1] 03/20/2005 BENIGN HYPERTENSION [I10] 03/20/2005 PERS HX VENOUS THROMB/EMBOLISM [Z86.718] 03/20/2005 Hypothyroidism [E03.9] 03/20/2005 CIRCUMSCRIBE SCLERODERMA [L94.0] 12/27/2005 Acute gastritis without mention of hemorrhage [*01/23/2012 Esophagitis, unspecified [K20.90] 01/23/2012 Fracture of lateral malleolus of right ankle [S*08/27/2012 Nondisplaced fracture of triquetral bone of rig*08/27/2012 GERD (gastroesophageal reflux disease) [K21.9] 09/08/2013 Multiple thyroid nodules [E04.2] 12/22/2013 Colloid thyroid nodule [E04.1] 02/11/2014 Atrial fibrillation (HCC) [I48.91] 09/02/2014 Ovarian cancer (HCC) [C56.9] 09/02/2014 10/11/2023 Obesity [E66.9] 09/02/2014 DVT (deep venous thrombosis) (HCC) [I82.409] 09/02/2014 10/11/2023 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, [address] Cholesterol in HDL [Mass/Vol] 52 mg/dL Normal [facility] Comment on above: Result Comment: The drugs N-Acetylcysteine and Metamizole may falsely depress this assay. Reference Range HDL <40 mg/dL Low HDL Cholesterol HDL >or= 60 mg/dL High HDL Cholesterol Performed By: #### L 500.3400, L500.4100 ####[facility] [address] [place], [address] Cholesterol in LDL [Mass/Vol] 47 mg/dL Normal 0-130 [facility] Comment on above: Performed By: #### L 500.3400, L500.4100 ####[facility] [address] [place], [address] Cholesterol in VLDL [Mass/Vol] 49 mg/dL High 5-40 [facility] Comment on above: Performed By: #### L 500.3400, L500.4100 ####[facility] [address] [place], [address] Triglyceride [Mass/Vol] 246 mg/dL High [facility] Comment on above: Result Comment: The drugs N-Acetylcysteine and Metamizole may falsely depress this assay. Serum Triglycerides Reference Interval Normal <150 mg/dL Borderline high 150 - 199 mg/dL High 200 - 499 mg/dL Very High > or = 500 mg/dL Performed By: #### L 500.3400, L500.4100 ####[facility] [address] [place], [address] Liver Profileon 02-14-2024 Albumin [Mass/Vol] 3.5 g/dL Normal 3.2-5.0 [facility] Comment on above: Performed By: #### L 500.3400, L500.4100 ####[facility] [address] [place], [address] ALK P 53 U/L Normal 45-117 [facility] Comment on above: Performed By: #### L 500.3400, L500.4100 ####[facility] [address] [place], [address] ALT [Catalytic activity/Vol] 20 U/L Normal 13-56 [facility] Comment on above: Performed By: #### L 500.3400, L500.4100 ####[facility] [address] [place], [address] AST [Catalytic activity/Vol] 18 U/L Normal 15-37 [facility] Comment on above: Performed By: #### L 500.3400, L500.4100 ####[facility] [address] [place], [address] Bilirubin [Mass/Vol] 0.50 mg/dL Normal 0.20-1.00 [facility] Comment on above: Result Comment: For patients on eltrombopag therapy, use of Dimension [place] TBIL is not recommended. Performed By: #### L 500.3400, L500.4100 ####[facility] [address] [place], [address] Bilirubin.direct [Mass/Vol] 0.13 mg/dL Normal 0.00-0.30 [facility] Comment on above: Performed By: #### L 500.3400, L500.4100 ####[facility] [address] [place], [address] Globulin (S) [Mass/Vol] 3.1 g/dL Normal 2.2-4.2 [facility] Comment on above: Performed By: #### L 500.3400, L500.4100 ####[facility] [address] [place], [address] T PROT 6.6 g/dL Normal 6.4-8.2 [facility] Comment on above: Performed By: #### L 500.3400, L500.4100 ####[facility] [address] [place], [address] Basophil percentageOrdered B y: Shila Michael on 08-11-2023 Bilirubin [Mass/Vol] 0.40 mg/dL 0.20-1.00 [facility] Comment on above: For patients on eltr ombopag therapy, use of Dimension [place] TBIL is not recommended. Cholesterol [Mass/Vol] 155 mg/dL <200 [facility] Comment on above: <200 mg/dL Desirable 200-240 mg/dL Borderline >240 mg/dL High Risk Protein [Mass/Vol] 6.7 g/dL 6.4-8.2 [facility] Triglyceride [Mass/Vol] 214 mg/dL <199 [facility] Comment on above: The drugs N-Acetylcy steine and Metamizole may falsely depress this assay.Serum Triglycerides Reference Interval Normal <150 mg/dL Borderline high 150 - 199 mg/dL High 200 - 499 mg/dL Very High > or = 500 mg/dL Direct bilirubinOrdered By: Shila Michael on 08-11-2023 Bilirubin.direct [Mass/Vol] 0.12 mg/dL 0.00-0.30 [facility] Laboratory - Chemistry and C hemistry - challengeOrdered By: Shila Michael on 08-11-2023 ALP [Catalytic activity/Vol] 45 U/L 45-117 [facility] ALT [Catalytic activity/Vol] 18 U/L 13-56 [facility] Cholesterol in HDL [Mass/Vol] 54 mg/dL >40 [facility] Comment on above: The drugs N-Acetylcy steine and Metamizole may falsely depress this assay. Reference Range HDL <40 mg/dL Low HDL Cholesterol HDL >or= 60 mg/dL High HDL Cholesterol Cholesterol in LDL [Mass/Vol] 58 mg/dL 0-130 [facility] Globulin (S) [Mass/Vol] 2.9 g/dL 2.2-4.2 [facility] No Panel InformationOrdered By: Shila Michael on 08-11-2023 VLDL Cholesterol 43 mg/dL 5-40 [facility] Thin prep Papanicolaou smear with manual screeningOrdered By: Shila Michael on 08-11-2023 Thin prep Papanicolaou smear with manual screening 3.8 g/dL 3.2-5.0 [facility] Thin prep Papanicolaou smear with manual screening 19 U/L 15-37 [facility] Absolute lymphocyte countOrd ered By: Asha Her on 04-08-2023 Lymphocytes Auto (Unsp spec) [#/Vol] 2.72 10*3/uL 0.83-4.51 [facility] Basophil percentageOrdered B y: Asha Her on 04-08-2023 Basophils/100 WBC (Bld) 0.6 % 0-1 [facility] Chloride [Moles/Vol] 105 mmol/L 98-107 [facility] Eosinophils/100 WBC (Bld) 1.4 % 0-5 [facility] Glucose [Mass/Vol] 100 mg/dL 74-106 [facility] Comment on above: Fasting Glucose resu lt from 100 to 125 mg/dL suggests IMPAIRED HOMEOSTASIS per A.D.A. criteria. Neutrophils (Bld) [#/Vol] 3.4 10*3/uL 2.0-7.7 [facility] Neutrophils/100 WBC (Bld) 48.9 % 47-70 [facility] Potassium [Moles/Vol] 3.5 mmol/L 3.5-5.1 [facility] Sodium [Moles/Vol] 139 mmol/L 136-145 [facility] WBC (Bld) [#/Vol] 7.0 10*3/uL 4.4-11.0 [facility] Blood erythrocytes count (nu mber/volume)Ordered By: Asha Her on 04-08-2023 RBC (Bld) [#/Vol] 4.25 10*6/uL 4.2-5.4 [facility] Blood hemoglobin measurement (mass/volume)Ordered By: Asha Her on 04-08-2023 Hemoglobin (Bld) [Mass/Vol] 11.9 g/dL 12.0-15.0 [facility] Blood lymphocytes/100 leukoc ytesOrdered By: Asha Her on 04-08-2023 Lymphocytes/100 WBC (Bld) 38.8 % 19-41 [facility] Blood monocytes/100 leukocyt esOrdered By: Asha Her on 04-08-2023 Monocytes/100 WBC (Bld) 10.0 % 0-10 [facility] Blood platelet mean volumeOr dered By: Asha Her on 04-08-2023 Platelet mean volume (Bld) [Entitic vol] 10.7 fL 6.2-12.0 [facility] Determination of erythrocyte mean corpuscular volume (MCV)Ordered By: Asha Her on 04-08-2023 MCV (RBC) [Entitic vol] 89.9 fL 81-99 [facility] Hematocrit Auto (Bld) [Volum e fraction]Ordered By: Asha Her on 04-08-2023 Hematocrit (Bld) [Volume fraction] 38.2 % 37-47 [facility] Laboratory - Chemistry and C hemistry - challengeOrdered By: Asha Her on 04-08-2023 CO2 [Moles/Vol] 32.0 mmol/L 21.0-32.0 [facility] Urea nitrogen/Creatinine [Mass ratio] 21.0 mg/mg 10-20 [facility] Laboratory - Hematology and Cell countsOrdered By: Asha Her on 04-08-2023 Erythrocyte distribution width (RBC) [Entitic vol] 40.6 fL 35.1-43.9 [facility] Erythrocyte distribution width (RBC) [Ratio] 12.3 % 11.6-14.6 [facility] Immature granulocytes/100 WBC (Bld) 0.300 % 0.0-0.9 [facility] Comment on above: IG% - Immature Granu locytes (promyelocytes, myelocytes and metamyelocytes) > 1% indicates that a LEFT SHIFT is Present. MCH (RBC) [Entitic mass] 28.0 pg 27.0-32.0 [facility] Nucleated RBC/100 WBC (Bld) [Ratio] 0 % 0-5 [facility] MCHC Auto (RBC) [Mass/Vol]Or dered By: Asha Her on 04-08-2023 MCHC (RBC) [Mass/Vol] 31.2 g/dL 32-36 [facility] No Panel InformationOrdered By: Asha Her on 04-08-2023 Troponin I High Sensitivity 13 pg/mL 3.0-54.0 [facility] Comment on above: Please Note: New Suzie t Units and Gender Specific Reference Ranges. For more information see Policy Stat Procedure [place] High Sensitivity Troponin (TNIH) and attachments. Estimated Creatinine Clearance Calc 31.47 ml/min [facility] Estimated GFR (MDRD) Amer 56 mL/min >60 [facility] Comment on above: GFR Calc Estimated GFR (MDRD) Non-Af Amer 46 mL/min >60 [facility] Comment on above: Non- GFR Calc Platelets bldOrdered By: Heidi Her on 04-08-2023 Platelets (Bld) [#/Vol] 269 10*3/uL 150-450 [facility] Serum or plasma calcium nancy urement (mass/volume)Ordered By: Asha Her on 04-08-2023 Calcium [Mass/Vol] 9.5 mg/dL 8.5-10.1 [facility] Serum or plasma creatinine m easurement (mass/volume)Ordered By: Asha Her on 04-08-2023 Creatinine [Mass/Vol] 1.19 mg/dL 0.55-1.02 [facility] Comment on above: The validity of the calculated GFR & GFRAA in patients over 70 years has not been determined. Clinical correlation is essential. Serum or plasma urea nitroge n measurement (mass/volume)Ordered By: Asha Her on 04-08-2023 Urea nitrogen [Mass/Vol] 25 mg/dL 7-18 [facility] Thin prep Papanicolaou smear with manual screeningOrdered By: Asha Her on 04-08-2023 Thin prep Papanicolaou smear with manual screening 2 5-15 [facility] Absolute lymphocyte countOrd ered By: Patrick Schneider on 03-21-2023 Lymphocytes Auto (Unsp spec) [#/Vol] 3.16 10*3/uL 0.83-4.51 [facility] Basophil percentageOrdered B y: Patrick Schneider on 03-21-2023 Basophils/100 WBC (Bld) 0.4 % 0-1 [facility] Chloride [Moles/Vol] 107 mmol/L 98-107 [facility] Eosinophils/100 WBC (Bld) 1.1 % 0-5 [facility] Glucose [Mass/Vol] 115 mg/dL 74-106 [facility] Comment on above: Fasting Glucose resu lt from 100 to 125 mg/dL suggests IMPAIRED HOMEOSTASIS per A.D.A. criteria. Neutrophils (Bld) [#/Vol] 3.5 10*3/uL 2.0-7.7 [facility] Neutrophils/100 WBC (Bld) 47.0 % 47-70 [facility] Potassium [Moles/Vol] 3.4 mmol/L 3.5-5.1 [facility] Sodium [Moles/Vol] 141 mmol/L 136-145 [facility] WBC (Bld) [#/Vol] 7.5 10*3/uL 4.4-11.0 [facility] Blood erythrocytes count (nu mber/volume)Ordered By: Patrick Schneider on 03-21-2023 RBC (Bld) [#/Vol] 4.46 10*6/uL 4.2-5.4 [facility] Blood hemoglobin measurement (mass/volume)Ordered By: Patrick Schneider on 03-21-2023 Hemoglobin (Bld) [Mass/Vol] 12.3 g/dL 12.0-15.0 [facility] Blood lymphocytes/100 leukoc ytesOrdered By: Patrick Schneider on 03-21-2023 Lymphocytes/100 WBC (Bld) 42.2 % 19-41 [facility] Blood monocytes/100 leukocyt esOrdered By: Patrick Schneider on 03-21-2023 Monocytes/100 WBC (Bld) 9.0 % 0-10 [facility] Blood platelet mean volumeOr dered By: Patrick Schneider on 03-21-2023 Platelet mean volume (Bld) [Entitic vol] 11.0 fL 6.2-12.0 [facility] Determination of erythrocyte mean corpuscular volume (MCV)Ordered By: Patrick Schneider on 03-21-2023 MCV (RBC) [Entitic vol] 87.9 fL 81-99 [facility] Hematocrit Auto (Bld) [Volum e fraction]Ordered By: Patrick Schneider on 03-21-2023 Hematocrit (Bld) [Volume fraction] 39.2 % 37-47 [facility] Laboratory - Chemistry and C hemistry - challengeOrdered By: Patrick Schneider on 03-21-2023 CO2 [Moles/Vol] 26.0 mmol/L 21.0-32.0 [facility] Urea nitrogen/Creatinine [Mass ratio] 31.9 mg/mg 10-20 [facility] Laboratory - Hematology and Cell countsOrdered By: Patrick Schneider on 03-21-2023 Erythrocyte distribution width (RBC) [Entitic vol] 40.0 fL 35.1-43.9 [facility] Erythrocyte distribution width (RBC) [Ratio] 12.5 % 11.6-14.6 [facility] Immature granulocytes/100 WBC (Bld) 0.300 % 0.0-0.9 [facility] Comment on above: IG% - Immature Granu locytes (promyelocytes, myelocytes and metamyelocytes) > 1% indicates that a LEFT SHIFT is Present. MCH (RBC) [Entitic mass] 27.6 pg 27.0-32.0 [facility] Nucleated RBC/100 WBC (Bld) [Ratio] 0 % 0-5 [facility] MCHC Auto (RBC) [Mass/Vol]Or dered By: Patrick Schneider on 03-21-2023 MCHC (RBC) [Mass/Vol] 31.4 g/dL 32-36 [facility] No Panel InformationOrdered By: Patrick Schneider on 03-21-2023 Estimated Creatinine Clearance Calc 26.01 ml/min [facility] Estimated GFR (MDRD) Amer 45 mL/min >60 [facility] Comment on above: GFR Calc Estimated GFR (MDRD) Non-Af Amer 37 mL/min >60 [facility] Comment on above: Non- GFR Calc Troponin I High Sensitivity 14 pg/mL 3.0-54.0 [facility] Comment on above: Please Note: New Suzie t Units and Gender Specific Reference Ranges. For more information see Policy Stat Procedure [place] High Sensitivity Troponin (TNIH) and attachments. Platelets bldOrdered By: Pet krystal Schneider on 03-21-2023 Platelets (Bld) [#/Vol] 269 10*3/uL 150-450 [facility] Serum or plasma calcium nancy urement (mass/volume)Ordered By: Patrick Schneider on 03-21-2023 Calcium [Mass/Vol] 10.2 mg/dL 8.5-10.1 [facility] Serum or plasma creatinine m easurement (mass/volume)Ordered By: Patrick Schneider on 03-21-2023 Creatinine [Mass/Vol] 1.44 mg/dL 0.55-1.02 [facility] Comment on above: The validity of the calculated GFR & GFRAA in patients over 70 years has not been determined. Clinical correlation is essential. Serum or plasma urea nitroge n measurement (mass/volume)Ordered By: Patrick Schneider on 03-21-2023 Urea nitrogen [Mass/Vol] 46 mg/dL 7-18 [facility] Thin prep Papanicolaou smear with manual screeningOrdered By: Patrick Schneider on 03-21-2023 Thin prep Papanicolaou smear with manual screening 8 10-09 [facility] UA DIP, URINE (POC)on 2022 BILIRUBIN UA (POCT) Negative Negative [facility] CLARITY UA (POCT) [facility] COLOR [facility]A ([facility]) Yellow [facility] GLUCOSE UA (POCT) Negative Negative mg/dL [facility] Hemoglobin Ql (U) Small Abnormal Negative [facility] KETONE UA (POCT) Negative Negative mg/dL [facility] LEUKOCYTES UA (POCT) Moderate Abnormal Negative [facility] NITRITE UA (POCT) Negative Negative [facility] PH UA (POCT) 6.5 4.5 - 8.0 [facility] Protein Ql (U) Trace Abnormal Negative mg/dL [facility] SPECIFIC GRAVITY UA (POCT) 1.010 1.005 - 1.030 [facility] UROBILINOGEN UA (POCT) 0.2 E.U./dL Donna l E.U./dL [facility] Basophil percentageOrdered B y: Gorge Naik on 02-02-2023 Bilirubin [Mass/Vol] 0.50 mg/dL 0.20-1.00 [facility] Comment on above: For patients on eltr ombopag therapy, use of Dimension [place] TBIL is not recommended. Chloride [Moles/Vol] 105 mmol/L 98-107 [facility] Cholesterol [Mass/Vol] 126 mg/dL <200 [facility] Comment on above: <200 mg/dL Desirable 200-240 mg/dL Borderline >240 mg/dL High Risk Glucose [Mass/Vol] 99 mg/dL 74-106 [facility] Potassium [Moles/Vol] 3.7 mmol/L 3.5-5.1 [facility] Protein [Mass/Vol] 6.8 g/dL 6.4-8.2 [facility] Sodium [Moles/Vol] 139 mmol/L 136-145 [facility] Triglyceride [Mass/Vol] 177 mg/dL <199 [facility] Comment on above: The drugs N-Acetylcy steine and Metamizole may falsely depress this assay.Serum Triglycerides Reference Interval Normal <150 mg/dL Borderline high 150 - 199 mg/dL High 200 - 499 mg/dL Very High > or = 500 mg/dL Laboratory - Chemistry and C hemistry - challengeOrdered By: Gorge Naik on 02-02-2023 ALP [Catalytic activity/Vol] 48 U/L 45-117 [facility] ALT [Catalytic activity/Vol] 18 U/L 13-56 [facility] CK [Catalytic activity/Vol] 111 U/L 26-192 [facility] CO2 [Moles/Vol] 30.0 mmol/L 21.0-32.0 [facility] Globulin (S) [Mass/Vol] 3.4 g/dL 2.2-4.2 [facility] Urea nitrogen/Creatinine [Mass ratio] 18.1 mg/mg 10-20 [facility] No Panel InformationOrdered By: Gorge Naik on 02-02-2023 Estimated GFR (MDRD) Amer 52 mL/min >60 [facility] Comment on above: GFR Calc Estimated GFR (MDRD) Non-Af Amer 43 mL/min >60 [facility] Comment on above: Non- GFR Calc Serum or plasma albumin nancy urement (mass/volume)Ordered By: Gorge Naik on 02-02-2023 Albumin [Mass/Vol] 3.4 g/dL 3.2-5.0 [facility] Serum or plasma albumin/glob ulin mass ratioOrdered By: Gorge Naik on 02-02-2023 Albumin/Globulin [Mass ratio] 1.0 {ratio} 0.9-2.4 [facility] Serum or plasma calcium nancy urement (mass/volume)Ordered By: Gorge Naik on 02-02-2023 Calcium [Mass/Vol] 9.7 mg/dL 8.5-10.1 [facility] Serum or plasma cholesterol in HDL measurement (mass/volume)Ordered By: Goreg Naik on 02-02-2023 Cholesterol in HDL [Mass/Vol] 51 mg/dL >40 [facility] Comment on above: The drugs N-Acetylcy steine and Metamizole may falsely depress this assay. Reference Range HDL <40 mg/dL Low HDL Cholesterol HDL >or= 60 mg/dL High HDL Cholesterol Serum or plasma cholesterol in VLDL measurement (mass/volume)Ordered By: Gorge Naik on 02-02-2023 Cholesterol in VLDL [Mass/Vol] 35 mg/dL 5-40 [facility] Serum or plasma creatinine m easurement (mass/volume)Ordered By: Gorge Naik on 02-02-2023 Creatinine [Mass/Vol] 1.27 mg/dL 0.55-1.02 [facility] Comment on above: The validity of the calculated GFR & GFRAA in patients over 70 years has not been determined. Clinical correlation is essential. Serum or plasma low density lipoprotein (LDL) cholesterol measurement (mass/volume)Ordered By: Gorge Naik on 02-02-2023 Cholesterol in LDL [Mass/Vol] 40 mg/dL 0-130 [facility] Serum or plasma urea nitroge n measurement (mass/volume)Ordered By: Gorge Naik on 02-02-2023 Urea nitrogen [Mass/Vol] 23 mg/dL 7-18 [facility] Thin prep Papanicolaou smear with manual screeningOrdered By: Gorge Naik on 02-02-2023 Thin prep Papanicolaou smear with manual screening 16 U/L 15-37 [facility] Thin prep Papanicolaou smear with manual screening 4 5-15 [facility] XR CHEST 2V FRONTAL/LATon [facility] XR Chest PA and Lateralon IMPRESSION: No acute radiographic abnormality. Chief Vendor Quality: PSCMattie Transcribe Date/Time: Aug 25 2022 10:02A Dictated by : GHAZALA SELF MD This examination was interpreted and the report reviewed and electronically signed by: GHAZALA SELF MD on Aug 25 2022 10:03AM [facility] DIVISION OF RADIOLOGY * * *Final Report* * * DATE OF EXAM: Aug 25 2022 9:58AM WOX [id number] - XR CHEST 2V FRONTAL/LAT / PROCEDURE REASON: Viral URI with cough * * * * Physician Interpretation * * * * EXAMINATION: CHEST RADIOGRAPH (2 VIEW FRONTAL & LATERAL) CLINICAL HISTORY: Viral URI with cough MQ: XC2_6 EXAM DATE/TIME: 08/25/2022 9:58 AM COMPARISON: Chest x-ray 10/19/2007 RESULT: Lines, tubes, and devices: None. Lungs and pleura: No consolidation. Again noted are multiple small calcified pulmonary nodules. No lung mass. No pleural effusion. No pneumothorax. Cardiomediastinal silhouette: Normal cardiomediastinal silhouette. Bones and soft tissues: Median sternotomy wires are noted. DIVISION OF RADIOLOGY Provider, [facility] - 08/25/2022 * * *Final Report* * * DATE OF EXAM: Aug 25 2022 9:58AM WOX [id number] - XR CHEST 2V FRONTAL/LAT / PROCEDURE REASON: Viral URI with cough * * * * Physician Interpretation * * * * EXAMINATION: CHEST RADIOGRAPH (2 VIEW FRONTAL & LATERAL) CLINICAL HISTORY: Viral URI with cough MQ: XC2_6 EXAM DATE/TIME: 08/25/2022 9:58 AM COMPARISON: Chest x-ray 10/19/2007 RESULT: Lines, tubes, and devices: None. Lungs and pleura: No consolidation. Again noted are multiple small calcified pulmonary nodules. No lung mass. No pleural effusion. No pneumothorax. Cardiomediastinal silhouette: Normal cardiomediastinal silhouette. Bones and soft tissues: Median sternotomy wires are noted. IMPRESSION IMPRESSION: No acute radiographic abnormality. Chief Vendor Quality: CHAPIN[employer]O Transcribe Date/Time: Aug 25 2022 10:02A Dictated by : GHAZALA SELF MD This examination was interpreted and the report reviewed and electronically signed by: GHAZALA SELF MD on Aug 25 2022 10:03AM EST [facility] Radiology Study observation (narrative) [facility] XR Chest PA and LateralOrder ed By: [facility] Provider on 08-25-2022 [facility] Basophil percentageOrdered B y: Doe Martinez on 08-11-2022 Chloride [Moles/Vol] 102 mmol/L 98-107 [facility] Glucose [Mass/Vol] 110 mg/dL 74-106 [facility] Comment on above: Fasting Glucose resu lt from 100 to 125 mg/dL suggests IMPAIRED HOMEOSTASIS per A.D.A. criteria. Potassium [Moles/Vol] 3.4 mmol/L 3.5-5.1 [facility] Sodium [Moles/Vol] 142 mmol/L 136-145 [facility] Laboratory - Chemistry and C hemistry - challengeOrdered By: Doe Martinez on 08-11-2022 CO2 [Moles/Vol] 31.0 mmol/L 21.0-32.0 [facility] Natriuretic peptide B (Bld) [Mass/Vol] 265.2 pg/mL 0-100 [facility] Urea nitrogen/Creatinine [Mass ratio] 19.8 mg/mg 10-20 [facility] No Panel InformationOrdered By: Doe Martinez on 08-11-2022 Estimated GFR (MDRD) Amer 55 mL/min >60 [facility] Comment on above: GFR Calc Estimated GFR (MDRD) Non-Af Amer 45 mL/min >60 [facility] Comment on above: Non- GFR Calc Serum or plasma calcium nancy urement (mass/volume)Ordered By: Doe Martinez on 08-11-2022 Calcium [Mass/Vol] 9.9 mg/dL 8.5-10.1 [facility] Serum or plasma creatinine m easurement (mass/volume)Ordered By: Doe Martinez on 08-11-2022 Creatinine [Mass/Vol] 1.21 mg/dL 0.55-1.02 [facility] Comment on above: The validity of the calculated GFR & GFRAA in patients over 70 years has not been determined. Clinical correlation is essential. Serum or plasma urea nitroge n measurement (mass/volume)Ordered By: Doe Martinez on 08-11-2022 Urea nitrogen [Mass/Vol] 24 mg/dL 7-18 [facility] Thin prep Papanicolaou smear with manual screeningOrdered By: Doe Martinez on 08-11-2022 Thin prep Papanicolaou smear with manual screening 9 5-15 [facility] Basophil percentageOrdered B y: Doe Martinez on 08-01-2022 Chloride [Moles/Vol] 101 mmol/L 98-107 [facility] Glucose [Mass/Vol] 108 mg/dL 74-106 [facility] Comment on above: Fasting Glucose resu lt from 100 to 125 mg/dL suggests IMPAIRED HOMEOSTASIS per A.D.A. criteria. Potassium [Moles/Vol] 3.6 mmol/L 3.5-5.1 [facility] Sodium [Moles/Vol] 139 mmol/L 136-145 [facility] Laboratory - Chemistry and C hemistry - challengeOrdered By: Doe Martinez on 08-01-2022 CO2 [Moles/Vol] 30.0 mmol/L 21.0-32.0 [facility] Urea nitrogen/Creatinine [Mass ratio] 25.5 mg/mg 10-20 [facility] No Panel InformationOrdered By: Doe Martinez on 08-01-2022 Estimated GFR (MDRD) Amer 64 mL/min >60 [facility] Comment on above: GFR Calc Estimated GFR (MDRD) Non-Af Amer 53 mL/min >60 [facility] Comment on above: Non- GFR Calc Serum or plasma calcium nancy urement (mass/volume)Ordered By: Doe Martinez on 08-01-2022 Calcium [Mass/Vol] 10.1 mg/dL 8.5-10.1 [facility] Serum or plasma creatinine m easurement (mass/volume)Ordered By: Doe Martinez on 08-01-2022 Creatinine [Mass/Vol] 1.06 mg/dL 0.55-1.02 [facility] Comment on above: The validity of the calculated GFR & GFRAA in patients over 70 years has not been determined. Clinical correlation is essential. Serum or plasma urea nitroge n measurement (mass/volume)Ordered By: Doe Martinez on 08-01-2022 Urea nitrogen [Mass/Vol] 27 mg/dL 7-18 [facility] Thin prep Papanicolaou smear with manual screeningOrdered By: Doe Martinez on 08-01-2022 Thin prep Papanicolaou smear with manual screening 8 5-15 [facility] Basophil percentageOrdered B y: Doe Martinez on 07-25-2022 Chloride [Moles/Vol] 100 mmol/L 98-107 [facility] Glucose [Mass/Vol] 126 mg/dL 74-106 [facility] Comment on above: Fasting Glucose resu lt greater than or equal to 126 mg/dL suggests DIABETES MELLITUS per A.D.A. criteria. Potassium [Moles/Vol] 3.4 mmol/L 3.5-5.1 [facility] Sodium [Moles/Vol] 138 mmol/L 136-145 [facility] Laboratory - Chemistry and C hemistry - challengeOrdered By: Doe Martinez on 07-25-2022 CO2 [Moles/Vol] 32.0 mmol/L 21.0-32.0 [facility] Urea nitrogen/Creatinine [Mass ratio] 21.6 mg/mg 10-20 [facility] No Panel InformationOrdered By: Doe Martinez on 07-25-2022 Estimated GFR (MDRD) Amer 43 mL/min >60 [facility] Comment on above: GFR Calc Estimated GFR (MDRD) Non-Af Amer 36 mL/min >60 [facility] Comment on above: Non- GFR Calc Serum or plasma calcium nancy urement (mass/volume)Ordered By: Doe Martinez on 07-25-2022 Calcium [Mass/Vol] 10.0 mg/dL 8.5-10.1 [facility] Serum or plasma creatinine m easurement (mass/volume)Ordered By: Doe Martinez on 07-25-2022 Creatinine [Mass/Vol] 1.48 mg/dL 0.55-1.02 [facility] Comment on above: The validity of the calculated GFR & GFRAA in patients over 70 years has not been determined. Clinical correlation is essential. Serum or plasma urea nitroge n measurement (mass/volume)Ordered By: Doe Martinez on 07-25-2022 Urea nitrogen [Mass/Vol] 32 mg/dL 7-18 [facility] Thin prep Papanicolaou smear with manual screeningOrdered By: Doe Martinez on 07-25-2022 Thin prep Papanicolaou smear with manual screening 6 5-15 [facility] Absolute lymphocyte countOrd ered By: Doe Martinez on 07-18-2022 Lymphocytes Auto (Unsp spec) [#/Vol] 2.05 10*3/uL 0.83-4.51 [facility] Basophil percentageOrdered B y: Doe Martinez on 07-18-2022 Basophils/100 WBC (Bld) 0.8 % 0-1 [facility] Chloride [Moles/Vol] 105 mmol/L 98-107 [facility] Eosinophils/100 WBC (Bld) 0.7 % 0-5 [facility] Glucose [Mass/Vol] 89 mg/dL 74-106 [facility] Neutrophils (Bld) [#/Vol] 4.2 10*3/uL 2.0-7.7 [facility] Neutrophils/100 WBC (Bld) 58.8 % 47-70 [facility] Potassium [Moles/Vol] 3.7 mmol/L 3.5-5.1 [facility] Sodium [Moles/Vol] 140 mmol/L 136-145 [facility] WBC (Bld) [#/Vol] 7.2 10*3/uL 4.4-11.0 [facility] Blood erythrocytes count (nu mber/volume)Ordered By: Doe Martinez on 07-18-2022 RBC (Bld) [#/Vol] 4.78 10*6/uL 4.2-5.4 [facility] Blood hemoglobin measurement (mass/volume)Ordered By: Doe Martinez on 07-18-2022 Hemoglobin (Bld) [Mass/Vol] 13.0 g/dL 12.0-15.0 [facility] Blood lymphocytes/100 leukoc ytesOrdered By: Doe Martinez on 07-18-2022 Lymphocytes/100 WBC (Bld) 28.5 % 19-41 [facility] Blood monocytes/100 leukocyt esOrdered By: Doe Martinez on 07-18-2022 Monocytes/100 WBC (Bld) 10.8 % 0-10 [facility] Blood platelet mean volumeOr dered By: Doe Martinez on 07-18-2022 Platelet mean volume (Bld) [Entitic vol] 11.5 fL 6.2-12.0 [facility] Determination of erythrocyte mean corpuscular volume (MCV)Ordered By: Doe Martinez on 07-18-2022 MCV (RBC) [Entitic vol] 88.3 fL 81-99 [facility] Hematocrit Auto (Bld) [Volum e fraction]Ordered By: Doe Martinez on 07-18-2022 Hematocrit (Bld) [Volume fraction] 42.2 % 37-47 [facility] Laboratory - Chemistry and C hemistry - challengeOrdered By: Doe Martinez on 07-18-2022 CO2 [Moles/Vol] 30.0 mmol/L 21.0-32.0 [facility] Natriuretic peptide B (Bld) [Mass/Vol] 224.6 pg/mL 0-100 [facility] Urea nitrogen/Creatinine [Mass ratio] 19.1 mg/mg 10-20 [facility] Laboratory - Hematology and Cell countsOrdered By: Doe Martinez on 07-18-2022 Erythrocyte distribution width (RBC) [Entitic vol] 41.8 fL 35.1-43.9 [facility] Erythrocyte distribution width (RBC) [Ratio] 12.8 % 11.6-14.6 [facility] Immature granulocytes/100 WBC (Bld) 0.400 % 0.0-0.9 [facility] Comment on above: IG% - Immature Granu locytes (promyelocytes, myelocytes and metamyelocytes) > 1% indicates that a LEFT SHIFT is Present. MCH (RBC) [Entitic mass] 27.2 pg 27.0-32.0 [facility] Nucleated RBC/100 WBC (Bld) [Ratio] 0 % 0-5 [facility] MCHC Auto (RBC) [Mass/Vol]Or dered By: Doe Martinez on 07-18-2022 MCHC (RBC) [Mass/Vol] 30.8 g/dL 32-36 [facility] No Panel InformationOrdered By: Doe Martinez on 07-18-2022 Estimated GFR (MDRD) Amer 61 mL/min >60 [facility] Comment on above: GFR Calc Estimated GFR (MDRD) Non-Af Amer 51 mL/min >60 [facility] Comment on above: Non- GFR Calc Platelets bldOrdered By: Clem Mratinez on 07-18-2022 Platelets (Bld) [#/Vol] 269 10*3/uL 150-450 [facility] Serum or plasma calcium nancy urement (mass/volume)Ordered By: Doe Martinez on 07-18-2022 Calcium [Mass/Vol] 9.7 mg/dL 8.5-10.1 [facility] Serum or plasma creatinine m easurement (mass/volume)Ordered By: Doe Martinez on 07-18-2022 Creatinine [Mass/Vol] 1.10 mg/dL 0.55-1.02 [facility] Comment on above: The validity of the calculated GFR & GFRAA in patients over 70 years has not been determined. Clinical correlation is essential. Serum or plasma urea nitroge n measurement (mass/volume)Ordered By: Doe Martinez on 07-18-2022 Urea nitrogen [Mass/Vol] 21 mg/dL 7-18 [facility] Thin prep Papanicolaou smear with manual screeningOrdered By: Doe Martinez on 07-18-2022 Thin prep Papanicolaou smear with manual screening 5 5-15 [facility] Absolute lymphocyte countOrd ered By: Dr. German on 07-03-2022 Lymphocytes Auto (Unsp spec) [#/Vol] 2.18 10*3/uL 0.83-4.51 [facility] Basophil percentageOrdered B y: Dr. German on 07-03-2022 Basophils/100 WBC (Bld) 0.4 % 0-1 [facility] Bilirubin [Mass/Vol] 0.70 mg/dL 0.20-1.00 [facility] Comment on above: For patients on eltr ombopag therapy, use of Dimension [place] TBIL is not recommended. Chloride [Moles/Vol] 105 mmol/L 98-107 [facility] Eosinophils/100 WBC (Bld) 0.6 % 0-5 [facility] Glucose [Mass/Vol] 99 mg/dL 74-106 [facility] Neutrophils (Bld) [#/Vol] 6.5 10*3/uL 2.0-7.7 [facility] Neutrophils/100 WBC (Bld) 66.6 % 47-70 [facility] Potassium [Moles/Vol] 4.3 mmol/L 3.5-5.1 [facility] Protein [Mass/Vol] 6.7 g/dL 6.4-8.2 [facility] Sodium [Moles/Vol] 143 mmol/L 136-145 [facility] WBC (Bld) [#/Vol] 9.8 10*3/uL 4.4-11.0 [facility] Blood erythrocytes count (nu mber/volume)Ordered By: Dr. German on 07-03-2022 RBC (Bld) [#/Vol] 4.84 10*6/uL 4.2-5.4 [facility] Blood hemoglobin measurement (mass/volume)Ordered By: Dr. German on 07-03-2022 Hemoglobin (Bld) [Mass/Vol] 13.2 g/dL 12.0-15.0 [facility] Blood lymphocytes/100 leukoc ytesOrdered By: Dr. German on 07-03-2022 Lymphocytes/100 WBC (Bld) 22.4 % 19-41 [facility] Blood monocytes/100 leukocyt esOrdered By: Dr. German on 07-03-2022 Monocytes/100 WBC (Bld) 9.8 % 0-10 [facility] Blood platelet mean volumeOr dered By: Dr. German on 07-03-2022 Platelet mean volume (Bld) [Entitic vol] 11.6 fL 6.2-12.0 [facility] Determination of erythrocyte mean corpuscular volume (MCV)Ordered By: Dr. German on 07-03-2022 MCV (RBC) [Entitic vol] 87.2 fL 81-99 [facility] Hematocrit Auto (Bld) [Volum e fraction]Ordered By: Dr. German on 07-03-2022 Hematocrit (Bld) [Volume fraction] 42.2 % 37-47 [facility] Laboratory - Chemistry and C hemistry - challengeOrdered By: Dr. German on 07-03-2022 ALP [Catalytic activity/Vol] 52 U/L 45-117 [facility] ALT [Catalytic activity/Vol] 17 U/L 13-56 [facility] CO2 [Moles/Vol] 30.0 mmol/L 21.0-32.0 [facility] Globulin (S) [Mass/Vol] 3.1 g/dL 2.2-4.2 [facility] Urea nitrogen/Creatinine [Mass ratio] 18.1 mg/mg 10-20 [facility] Laboratory - Hematology and Cell countsOrdered By: Dr. German on 07-03-2022 Erythrocyte distribution width (RBC) [Entitic vol] 40.5 fL 35.1-43.9 [facility] Erythrocyte distribution width (RBC) [Ratio] 12.8 % 11.6-14.6 [facility] Immature granulocytes/100 WBC (Bld) 0.200 % 0.0-0.9 [facility] Comment on above: IG% - Immature Granu locytes (promyelocytes, myelocytes and metamyelocytes) > 1% indicates that a LEFT SHIFT is Present. MCH (RBC) [Entitic mass] 27.3 pg 27.0-32.0 [facility] Nucleated RBC/100 WBC (Bld) [Ratio] 0 % 0-5 [facility] MCHC Auto (RBC) [Mass/Vol]Or dered By: Dr. German on 07-03-2022 MCHC (RBC) [Mass/Vol] 31.3 g/dL 32-36 [facility] No Panel InformationOrdered By: Dr. German on 07-03-2022 Estimated GFR (MDRD) Amer 45 mL/min >60 [facility] Comment on above: GFR Calc Estimated GFR (MDRD) Non-Af Amer 37 mL/min >60 [facility] Comment on above: Non- GFR Calc Platelets bldOrdered By: Dr. German on 07-03-2022 Platelets (Bld) [#/Vol] 250 10*3/uL 150-450 [facility] Serum or plasma albumin nancy urement (mass/volume)Ordered By: Dr. German on 07-03-2022 Albumin [Mass/Vol] 3.6 g/dL 3.2-5.0 [facility] Serum or plasma albumin/glob ulin mass ratioOrdered By: Dr. German on 07-03-2022 Albumin/Globulin [Mass ratio] 1.2 {ratio} 0.9-2.4 [facility] Serum or plasma calcium nancy urement (mass/volume)Ordered By: Dr. German on 07-03-2022 Calcium [Mass/Vol] 9.9 mg/dL 8.5-10.1 [facility] Serum or plasma creatinine m easurement (mass/volume)Ordered By: Dr. German on 07-03-2022 Creatinine [Mass/Vol] 1.44 mg/dL 0.55-1.02 [facility] Comment on above: The validity of the calculated GFR & GFRAA in patients over 70 years has not been determined. Clinical correlation is essential. Serum or plasma urea nitroge n measurement (mass/volume)Ordered By: Dr. German on 07-03-2022 Urea nitrogen [Mass/Vol] 26 mg/dL 7-18 [facility] Thin prep Papanicolaou smear with manual screeningOrdered By: Dr. German on 07-03-2022 Thin prep Papanicolaou smear with manual screening 16 U/L 15-37 [facility] Thin prep Papanicolaou smear with manual screening 8 5-15 [facility] Basophil percentageOrdered B y: Doe Martinez on 06-20-2022 Chloride [Moles/Vol] 100 mmol/L 98-107 [facility] Glucose [Mass/Vol] 127 mg/dL 74-106 [facility] Comment on above: Fasting Glucose resu lt greater than or equal to 126 mg/dL suggests DIABETES MELLITUS per A.D.A. criteria. Potassium [Moles/Vol] 3.6 mmol/L 3.5-5.1 [facility] Sodium [Moles/Vol] 140 mmol/L 136-145 [facility] Laboratory - Chemistry and C hemistry - challengeOrdered By: Doe Martinez on 06-20-2022 CO2 [Moles/Vol] 32.0 mmol/L 21.0-32.0 [facility] Urea nitrogen/Creatinine [Mass ratio] 21.8 mg/mg 10-20 [facility] No Panel InformationOrdered By: Doe Martinez on 06-20-2022 Estimated GFR (MDRD) Amer 53 mL/min >60 [facility] Comment on above: GFR Calc Estimated GFR (MDRD) Non-Af Amer 44 mL/min >60 [facility] Comment on above: Non- GFR Calc Serum or plasma calcium nancy urement (mass/volume)Ordered By: Doe Martinez on 06-20-2022 Calcium [Mass/Vol] 9.9 mg/dL 8.5-10.1 [facility] Serum or plasma creatinine m easurement (mass/volume)Ordered By: Doe Martinez on 06-20-2022 Creatinine [Mass/Vol] 1.24 mg/dL 0.55-1.02 [facility] Comment on above: The validity of the calculated GFR & GFRAA in patients over 70 years has not been determined. Clinical correlation is essential. Serum or plasma urea nitroge n measurement (mass/volume)Ordered By: Doe Martinez on 06-20-2022 Urea nitrogen [Mass/Vol] 27 mg/dL 7-18 [facility] Thin prep Papanicolaou smear with manual screeningOrdered By: Doe Martinez on 06-20-2022 Thin prep Papanicolaou smear with manual screening 8 5-15 [facility] Absolute lymphocyte countOrd ered By: Doe Martinez on 06-13-2022 Lymphocytes Auto (Unsp spec) [#/Vol] 2.25 10*3/uL 0.83-4.51 [facility] Basophil percentageOrdered B y: Doe Martienz on 06-13-2022 Basophils/100 WBC (Bld) 0.4 % 0-1 [facility] Chloride [Moles/Vol] 102 mmol/L 98-107 [facility] Eosinophils/100 WBC (Bld) 0.8 % 0-5 [facility] Glucose [Mass/Vol] 119 mg/dL 74-106 [facility] Comment on above: Fasting Glucose resu lt from 100 to 125 mg/dL suggests IMPAIRED HOMEOSTASIS per A.D.A. criteria. Neutrophils (Bld) [#/Vol] 5.5 10*3/uL 2.0-7.7 [facility] Neutrophils/100 WBC (Bld) 64.5 % 47-70 [facility] Potassium [Moles/Vol] 3.7 mmol/L 3.5-5.1 [facility] Sodium [Moles/Vol] 142 mmol/L 136-145 [facility] WBC (Bld) [#/Vol] 8.5 10*3/uL 4.4-11.0 [facility] Blood erythrocytes count (nu mber/volume)Ordered By: Doe Martinez on 06-13-2022 RBC (Bld) [#/Vol] 4.71 10*6/uL 4.2-5.4 [facility] Blood hemoglobin measurement (mass/volume)Ordered By: Doe Martinez on 06-13-2022 Hemoglobin (Bld) [Mass/Vol] 12.8 g/dL 12.0-15.0 [facility] Blood lymphocytes/100 leukoc ytesOrdered By: Doe Martinez on 06-13-2022 Lymphocytes/100 WBC (Bld) 26.5 % 19-41 [facility] Blood monocytes/100 leukocyt esOrdered By: Doe Martinez on 06-13-2022 Monocytes/100 WBC (Bld) 7.4 % 0-10 [facility] Blood platelet mean volumeOr dered By: Doe Martinez on 06-13-2022 Platelet mean volume (Bld) [Entitic vol] 11.2 fL 6.2-12.0 [facility] Determination of erythrocyte mean corpuscular volume (MCV)Ordered By: Doe Martinez on 06-13-2022 MCV (RBC) [Entitic vol] 89.2 fL 81-99 [facility] Hematocrit Auto (Bld) [Volum e fraction]Ordered By: Doe Martinez on 06-13-2022 Hematocrit (Bld) [Volume fraction] 42.0 % 37-47 [facility] Laboratory - Chemistry and C hemistry - challengeOrdered By: Doe Martinez on 06-13-2022 CO2 [Moles/Vol] 31.0 mmol/L 21.0-32.0 [facility] Natriuretic peptide B (Bld) [Mass/Vol] 253.9 pg/mL 0-100 [facility] Urea nitrogen/Creatinine [Mass ratio] 19.5 mg/mg 10-20 [facility] Laboratory - Hematology and Cell countsOrdered By: Doe Martinez on 06-13-2022 Erythrocyte distribution width (RBC) [Entitic vol] 41.3 fL 35.1-43.9 [facility] Erythrocyte distribution width (RBC) [Ratio] 12.7 % 11.6-14.6 [facility] Immature granulocytes/100 WBC (Bld) 0.400 % 0.0-0.9 [facility] Comment on above: IG% - Immature Granu locytes (promyelocytes, myelocytes and metamyelocytes) > 1% indicates that a LEFT SHIFT is Present. MCH (RBC) [Entitic mass] 27.2 pg 27.0-32.0 [facility] Nucleated RBC/100 WBC (Bld) [Ratio] 0 % 0-5 [facility] MCHC Auto (RBC) [Mass/Vol]Or dered By: Doe Martinez on 06-13-2022 MCHC (RBC) [Mass/Vol] 30.5 g/dL 32-36 [facility] No Panel InformationOrdered By: Doe Martinez on 06-13-2022 Estimated GFR (MDRD) Amer 54 mL/min >60 [facility] Comment on above: GFR Calc Estimated GFR (MDRD) Non-Af Amer 45 mL/min >60 [facility] Comment on above: Non- GFR Calc Platelets bldOrdered By: Clem Martinez on 06-13-2022 Platelets (Bld) [#/Vol] 297 10*3/uL 150-450 [facility] Serum or plasma calcium nancy urement (mass/volume)Ordered By: Doe Martinez on 06-13-2022 Calcium [Mass/Vol] 9.6 mg/dL 8.5-10.1 [facility] Serum or plasma creatinine m easurement (mass/volume)Ordered By: Doe Martinez on 06-13-2022 Creatinine [Mass/Vol] 1.23 mg/dL 0.55-1.02 [facility] Comment on above: The validity of the calculated GFR & GFRAA in patients over 70 years has not been determined. Clinical correlation is essential. Serum or plasma urea nitroge n measurement (mass/volume)Ordered By: Doe Martinez on 06-13-2022 Urea nitrogen [Mass/Vol] 24 mg/dL 7-18 [facility] Thin prep Papanicolaou smear with manual screeningOrdered By: Doe Martinez on 06-13-2022 Thin prep Papanicolaou smear with manual screening 9 5-15 [facility] Laboratory - CoagulationOrde red By: Dr. Waite on 05-15-2022 INR Coag (Bld) [Relative time] 2.6 {INR} [facility] Comment on above: Critical Value > 4.0 Whole blood prothrombin time Ordered By: Dr. Waite on 05-15-2022 PT Coag (Bld) [Time] 29.9 s 11.7-14.9 [facility] Laboratory - CoagulationOrde red By: Dr. Waite on 04-25-2022 INR Coag (Bld) [Relative time] 1.7 {INR} [facility] Comment on above: Critical Value > 4.0 Whole blood prothrombin time Ordered By: Dr. Waite on 04-25-2022 PT Coag (Bld) [Time] 20.6 s 11.7-14.9 [facility] Laboratory - CoagulationOrde red By: Dr. Waite on 04-04-2022 INR Coag (Bld) [Relative time] 2.4 {INR} [facility] Comment on above: Critical Value > 4.0 Whole blood prothrombin time Ordered By: Dr. Waite on 04-04-2022 PT Coag (Bld) [Time] 28.0 s 11.7-14.9 [facility] Laboratory - CoagulationOrde red By: Dr. Waite on 03-28-2022 INR Coag (Bld) [Relative time] 1.8 {INR} [facility] Comment on above: Critical Value > 4.0 Whole blood prothrombin time Ordered By: Dr. Waite on 03-28-2022 PT Coag (Bld) [Time] 21.9 s 11.7-14.9 [facility] Laboratory - CoagulationOrde red By: Dr. Waite on 03-21-2022 INR Coag (Bld) [Relative time] 1.9 {INR} [facility] Comment on above: Critical Value > 4.0 Whole blood prothrombin time Ordered By: Dr. Waite on 03-21-2022 PT Coag (Bld) [Time] 22.2 s 11.7-14.9 [facility] Basophil percentageOrdered B y: Doe Martinez on 03-20-2022 Chloride [Moles/Vol] 108 mmol/L 98-107 [facility] Glucose [Mass/Vol] 101 mg/dL 74-106 [facility] Comment on above: Fasting Glucose resu lt from 100 to 125 mg/dL suggests IMPAIRED HOMEOSTASIS per A.D.A. criteria. Potassium [Moles/Vol] 4.4 mmol/L 3.5-5.1 [facility] Sodium [Moles/Vol] 142 mmol/L 136-145 [facility] Laboratory - Chemistry and C hemistry - challengeOrdered By: Doe Martinez on 03-20-2022 CO2 [Moles/Vol] 30.0 mmol/L 21.0-32.0 [facility] Urea nitrogen/Creatinine [Mass ratio] 16.2 mg/mg 03-16 [facility] No Panel InformationOrdered By: Doe Martinez on 03-20-2022 Estimated Creatinine Clearance Calc 36.29 ml/min [facility] Estimated GFR (MDRD) Amer 65 mL/min >60 [facility] Comment on above: GFR Calc Estimated GFR (MDRD) Non-Af Amer 53 mL/min >60 [facility] Comment on above: Non- GFR Calc Serum or plasma calcium nancy urement (mass/volume)Ordered By: Doe Martinez on 03-20-2022 Calcium [Mass/Vol] 9.7 mg/dL 8.5-10.1 [facility] Serum or plasma creatinine m easurement (mass/volume)Ordered By: Doe Martinez on 03-20-2022 Creatinine [Mass/Vol] 1.05 mg/dL 0.55-1.02 [facility] Comment on above: The validity of the calculated GFR & GFRAA in patients over 70 years has not been determined. Clinical correlation is essential. Serum or plasma urea nitroge n measurement (mass/volume)Ordered By: Doe Martinez on 03-20-2022 Urea nitrogen [Mass/Vol] 17 mg/dL 7-18 [facility] Thin prep Papanicolaou smear with manual screeningOrdered By: Doe Martinez on 03-20-2022 Thin prep Papanicolaou smear with manual screening 4 5-15 [facility] Absolute lymphocyte countOrd ered By: Doe Martinez on 03-13-2022 Lymphocytes Auto (Unsp spec) [#/Vol] 1.91 10*3/uL 0.83-4.51 [facility] Basophil percentageOrdered B y: Doe Martinez on 03-13-2022 Basophils/100 WBC (Bld) 0.5 % 0-1 [facility] Eosinophils/100 WBC (Bld) 0.5 % 0-5 [facility] Neutrophils (Bld) [#/Vol] 6.4 10*3/uL 2.0-7.7 [facility] Neutrophils/100 WBC (Bld) 66.9 % 47-70 [facility] WBC (Bld) [#/Vol] 9.6 10*3/uL 4.4-11.0 [facility] Blood erythrocytes count (nu mber/volume)Ordered By: Doe Martinez on 03-13-2022 RBC (Bld) [#/Vol] 4.45 10*6/uL 4.2-5.4 [facility] Blood hemoglobin measurement (mass/volume)Ordered By: Doe Martinez on 03-13-2022 Hemoglobin (Bld) [Mass/Vol] 12.5 g/dL 12.0-15.0 [facility] Blood lymphocytes/100 leukoc ytesOrdered By: Doe Martinez on 03-13-2022 Lymphocytes/100 WBC (Bld) 19.8 % 19-41 [facility] Blood monocytes/100 leukocyt esOrdered By: Doe Martinez on 03-13-2022 Monocytes/100 WBC (Bld) 11.9 % 0-10 [facility] Blood platelet mean volumeOr dered By: Doe Martinez on 03-13-2022 Platelet mean volume (Bld) [Entitic vol] 11.2 fL 6.2-12.0 [facility] Determination of erythrocyte mean corpuscular volume (MCV)Ordered By: Doe Martinez on 03-13-2022 MCV (RBC) [Entitic vol] 91.0 fL 81-99 [facility] Hematocrit Auto (Bld) [Volum e fraction]Ordered By: Doe Martinez on 03-13-2022 Hematocrit (Bld) [Volume fraction] 40.5 % 37-47 [facility] Laboratory - Chemistry and C hemistry - challengeOrdered By: Doe Martinez on 03-13-2022 Free T4 [Mass/Vol] 1.41 ng/dL 0.76-1.46 [facility] Natriuretic peptide B (Bld) [Mass/Vol] 378.6 pg/mL 0-100 [facility] Laboratory - CoagulationOrde red By: Doe Martinez on 03-13-2022 PT Coag (PPP) [Time] 24.4 s 11.7-14.9 [facility] Laboratory - Hematology and Cell countsOrdered By: Doe Martinez on 03-13-2022 Erythrocyte distribution width (RBC) [Entitic vol] 44.4 fL 35.1-43.9 [facility] Erythrocyte distribution width (RBC) [Ratio] 13.3 % 11.6-14.6 [facility] Immature granulocytes/100 WBC (Bld) 0.400 % 0.0-0.9 [facility] Comment on above: IG% - Immature Granu locytes (promyelocytes, myelocytes and metamyelocytes) > 1% indicates that a LEFT SHIFT is Present. MCH (RBC) [Entitic mass] 28.1 pg 27.0-32.0 [facility] Nucleated RBC/100 WBC (Bld) [Ratio] 0 % 0-5 [facility] MCHC Auto (RBC) [Mass/Vol]Or dered By: Doe Martinez on 03-13-2022 MCHC (RBC) [Mass/Vol] 30.9 g/dL 32-36 [facility] No Panel InformationOrdered By: Doe Martinez on 03-13-2022 Thyroid Stimulating Hormone (TSH) 0.23 uIU/mL 0.358-3.74 [facility] Platelets bldOrdered By: Clem Martinez on 03-13-2022 Platelets (Bld) [#/Vol] 239 10*3/uL 150-450 [facility] No Panel Informationon 03-07 INR International Normalized Ratio 2.6 [facility] No Panel Informationon 02-28 INR International Normalized Ratio 3.0 [facility] No Panel Informationon 02-21 INR International Normalized Ratio 2.5 [facility] Work Phone: UA DIP, URINE (POC)on 2021 BILIRUBIN UA (POCT) Negative Negative [facility] CLARITY UA (POCT) Cloudy [facility] COLOR UA (POCT) Yellow [facility] GLUCOSE UA (POCT) Negative Negative mg/dL [facility] HEMOGLOBIN/BLOOD UA (POCT) Small Abnormal Negative [facility] KETONE UA (POCT) Negative Negative mg/dL [facility] LEUKOCYTES UA (POCT) Moderate Abnormal Negative [facility] NITRITE UA (POCT) Negative Negative [facility] PH UA (POCT) 6.0 4.5 - 8.0 [facility] Protein Ql (U) 30 mg/dL Abnormal Negative mg/dL [facility] SPECIFIC GRAVITY UA (POCT) 1.015 1.005 - 1.030 [facility] UROBILINOGEN UA (POCT) 0.2 E.U./dL Donna l E.U./dL [facility] No Panel Informationon 02-14 INR International Normalized Ratio 2.6 [facility] Work Phone: Basophil percentageon 2021 Chloride [Moles/Vol] 104 mmol/L 98-107 [facility] Work Phone: Glucose [Mass/Vol] 104 mg/dL 74-106 [facility] Work Phone: Comment on above: Fasting Glucose resu lt from 100 to 125 mg/dL suggests IMPAIRED HOMEOSTASIS per A.D.A. criteria. Potassium [Moles/Vol] 4.0 mmol/L 3.5-5.1 [facility] Work Phone: Sodium [Moles/Vol] 141 mmol/L 136-145 [facility] Work Phone: Laboratory - Chemistry and C hemistry - challengeon 02-09-2022 CO2 [Moles/Vol] 29.0 mmol/L 21.0-32.0 [facility] Work Phone: Magnesium [Mass/Vol] 1.9 mg/dL 1.6-2.6 [facility] Work Phone: Natriuretic peptide B (Bld) [Mass/Vol] 379.4 pg/mL 0-100 [facility] Work Phone: Urea nitrogen/Creatinine [Mass ratio] 19.0 mg/mg 10-20 [facility] Work Phone: No Panel Informationon 02-09 Estimated GFR (MDRD) Amer 58 mL/min >60 [facility] Work Phone: Comment on above: GFR Calc Estimated GFR (MDRD) Non-Af Amer 48 mL/min >60 [facility] Work Phone: Comment on above: Non- GFR Calc Thyroid Stimulating Hormone (TSH) 0.17 uIU/mL 0.358-3.74 [facility] Work Phone: Serum or plasma calcium nancy urement (mass/volume)on 02-09-2022 Calcium [Mass/Vol] 9.7 mg/dL 8.5-10.1 [facility] Work Phone: Serum or plasma creatinine m easurement (mass/volume)on 02-09-2022 Creatinine [Mass/Vol] 1.16 mg/dL 0.55-1.02 [facility] Work Phone: Comment on above: The validity of the calculated GFR & GFRAA in patients over 70 years has not been determined. Clinical correlation is essential. Serum or plasma urea nitroge n measurement (mass/volume)on 02-09-2022 Urea nitrogen [Mass/Vol] 22 mg/dL 7-18 [facility] Work Phone: Thin prep Papanicolaou smear with manual screeningon 02-09-2022 Thin prep Papanicolaou smear with manual screening 8 5-15 [facility] Work Phone: Absolute lymphocyte counton 02-03-2022 Lymphocytes Auto (Unsp spec) [#/Vol] 1.25 10*3/uL 0.83-4.51 [facility] Work Phone: Basophil percentageon 2021 Basophil percentage 0-5 SEEN /hpf 0-5 [facility] Work Phone: Basophils/100 WBC (Bld) 0.2 % 0-1 [facility] Work Phone: Bilirubin [Mass/Vol] 0.60 mg/dL 0.20-1.00 [facility] Work Phone: Comment on above: For patients on eltr ombopag therapy, use of Dimension [place] TBIL is not recommended. Chloride [Moles/Vol] 102 mmol/L 98-107 [facility] Work Phone: Eosinophils/100 WBC (Bld) 0.6 % 0-5 [facility] Work Phone: Glucose [Mass/Vol] 124 mg/dL 74-106 [facility] Work Phone: Comment on above: Fasting Glucose resu lt from 100 to 125 mg/dL suggests IMPAIRED HOMEOSTASIS per A.D.A. criteria. Neutrophils (Bld) [#/Vol] 7.3 10*3/uL 2.0-7.7 [facility] Work Phone: [phone] Neutrophils/100 WBC (Bld) 76.7 % 47-70 [facility] Work Phone: Potassium [Moles/Vol] 3.3 mmol/L 3.5-5.1 [facility] Work Phone: Protein [Mass/Vol] 6.6 g/dL 6.4-8.2 [facility] Work Phone: Sodium [Moles/Vol] 139 mmol/L 136-145 [facility] Work Phone: WBC (Bld) [#/Vol] 9.5 10*3/uL 4.4-11.0 [facility] Work Phone: Bilirubin Test strip Ql (U)o n 02-03-2022 Bilirubin Ql (U) Negative Negative [facility] Work Phone: Blood erythrocytes count (nu mber/volume)on 02-03-2022 RBC (Bld) [#/Vol] 4.62 10*6/uL 4.2-5.4 [facility] Work Phone: Blood hemoglobin measurement (mass/volume)on 02-03-2022 Hemoglobin (Bld) [Mass/Vol] 12.7 g/dL 12.0-15.0 [facility] Work Phone: Blood lymphocytes/100 leukoc yteson 02-03-2022 Lymphocytes/100 WBC (Bld) 13.1 % 19-41 [facility] Work Phone: Blood monocytes/100 leukocyt eson 02-03-2022 Monocytes/100 WBC (Bld) 9.0 % 0-10 [facility] Work Phone: Blood platelet mean volumeon 02-03-2022 Platelet mean volume (Bld) [Entitic vol] 10.9 fL 6.2-12.0 [facility] Work Phone: Determination of erythrocyte mean corpuscular volume (MCV)on 02-03-2022 MCV (RBC) [Entitic vol] 88.1 fL 81-99 [facility] Work Phone: Hematocrit Auto (Bld) [Volum e fraction]on 02-03-2022 Hematocrit (Bld) [Volume fraction] 40.7 % 37-47 [facility] Work Phone: INR in Blood by Coagulation assayon 02-03-2022 INR Coag (Bld) [Relative time] 1.7 {INR} [facility] Work Phone: INR Coag (Bld) [Relative time] 1.7 {INR} [facility] Work Phone: Ketones Test strip Ql (U)on 02-03-2022 Ketones Ql (U) Negative Negative [facility] Work Phone: Laboratory - Chemistry and C hemistry - challengeon 02-03-2022 ALP [Catalytic activity/Vol] 96 U/L 45-117 [facility] Work Phone: ALT [Catalytic activity/Vol] 50 U/L 13-56 [facility] Work Phone: CO2 [Moles/Vol] 30.0 mmol/L 21.0-32.0 [facility] Work Phone: Globulin (S) [Mass/Vol] 3.3 g/dL 2.2-4.2 [facility] Work Phone: Urea nitrogen/Creatinine [Mass ratio] 19.5 mg/mg 10-20 [facility] Work Phone: Laboratory - Coagulationon 0 02-03-2022 PT Coag (PPP) [Time] 19.4 s 11.7-14.9 [facility] Work Phone: PT Coag (PPP) [Time] 19.7 s 11.7-14.9 [facility] Work Phone: Laboratory - Hematology and Cell countson 02-03-2022 Erythrocyte distribution width (RBC) [Entitic vol] 42.0 fL 35.1-43.9 [facility] Work Phone: Erythrocyte distribution width (RBC) [Ratio] 13.2 % 11.6-14.6 [facility] Work Phone: Immature granulocytes/100 WBC (Bld) 0.400 % 0.0-0.9 [facility] Work Phone: Comment on above: IG% - Immature Granu locytes (promyelocytes, myelocytes and metamyelocytes) > 1% indicates that a LEFT SHIFT is Present. MCH (RBC) [Entitic mass] 27.5 pg 27.0-32.0 [facility] Work Phone: Nucleated RBC/100 WBC (Bld) [Ratio] 0 % 0-5 [facility] Work Phone: MCHC Auto (RBC) [Mass/Vol]on 02-03-2022 MCHC (RBC) [Mass/Vol] 31.2 g/dL 32-36 [facility] Work Phone: Mucus LM Ql (Urine sed)on Mucus Ql (Urine sed) 0 SEEN /hpf [facility] Work Phone: Nitrite Test strip Ql (U)on 02-03-2022 Nitrite Ql (U) Negative Negative [facility] Work Phone: No Panel Informationon 02-03 Estimated Creatinine Clearance Calc 29.77 ml/min [facility] Work Phone: Estimated GFR (MDRD) Amer 51 mL/min >60 [facility] Work Phone: Comment on above: GFR Calc Estimated GFR (MDRD) Non-Af Amer 43 mL/min >60 [facility] Work Phone: Comment on above: Non- GFR Calc Platelets bldon 02-03-2022 Platelets (Bld) [#/Vol] 250 10*3/uL 150-450 [facility] Work Phone: Protein Test strip Ql (U)on 02-03-2022 Protein Ql (U) Negative Negative [facility] Work Phone: Serum or plasma albumin nancy urement (mass/volume)on 02-03-2022 Albumin [Mass/Vol] 3.3 g/dL 3.2-5.0 [facility] Work Phone: Serum or plasma albumin/glob ulin mass ratioon 02-03-2022 Albumin/Globulin [Mass ratio] 1.0 {ratio} 0.9-2.4 [facility] Work Phone: Serum or plasma calcium nancy urement (mass/volume)on 02-03-2022 Calcium [Mass/Vol] 9.7 mg/dL 8.5-10.1 [facility] Work Phone: Serum or plasma creatinine m easurement (mass/volume)on 02-03-2022 Creatinine [Mass/Vol] 1.28 mg/dL 0.55-1.02 [facility] Work Phone: Comment on above: The validity of the calculated GFR & GFRAA in patients over 70 years has not been determined. Clinical correlation is essential. Serum or plasma urea nitroge n measurement (mass/volume)on 02-03-2022 Urea nitrogen [Mass/Vol] 25 mg/dL 7-18 [facility] Work Phone: Squamous epithelial cells de tection in urine sediment by light microscopyon 02-03-2022 Epithelial cells.squamous LM Ql (Urine sed) 0 SEEN /hpf 5-10 [facility] Work Phone: Thin prep Papanicolaou smear with manual screeningon 02-03-2022 Thin prep Papanicolaou smear with manual screening 34 U/L 15-37 [facility] Work Phone: Thin prep Papanicolaou smear with manual screening 7 5-15 [facility] Work Phone: Urine blood detectionon RBC Ql (U) Negative Negative [facility] Work Phone: RBC Ql (U) 0 SEEN /hpf 0-5 [facility] Work Phone: Urine clarityon 02-03-2022 Clarity (U) Clear Clear [facility] Work Phone: Urine color determinationon 02-03-2022 Color (U) Yellow Yellow [facility] Work Phone: Urine glucose detectionon Glucose Ql (U) Normal mg/dl Normal [facility] Work Phone: Urine leukocyte esterase det ection by dipstickon 02-03-2022 Leukocyte esterase Test strip Ql (U) 25 /ul Negative [facility] Work Phone: Urine pHon 02-03-2022 pH (U) 6.0 [pH] 5.0 - 8.0 [facility] Work Phone: Urine sediment bacteria coun t by microscopy (number/high power field)on 02-03-2022 Bacteria LM.HPF (Urine sed) [#/Area] 0 /[HPF] None Seen [facility] Work Phone: Urine specific gravity measu rementon 02-03-2022 Specific gravity (U) [Rel density] 1.010 1.002-1.03 0 [facility] Work Phone: Urobilinogen Auto test strip Ql (U)on 02-03-2022 Urobilinogen Ql (U) Normal mg/dl Normal [facility] Work Phone: UA DIP, URINE (POC)on 2021 BILIRUBIN UA (POCT) Negative Negative [facility] CLARITY UA (POCT) Slightly Cloudy [facility] COLOR UA (POCT) Yellow [facility] GLUCOSE UA (POCT) Negative Negative mg/dL [facility] HEMOGLOBIN/BLOOD UA (POCT) Trace-intact Abnormal Negative [facility] KETONE UA (POCT) Negative Negative mg/dL [facility] LEUKOCYTES UA (POCT) Small Abnormal Negative [facility] NITRITE UA (POCT) Negative Negative [facility] PH UA (POCT) 6.5 4.5 - 8.0 [facility] Protein Ql (U) Negative Negative mg/dL [facility] SPECIFIC GRAVITY UA (POCT) 1.010 1.005 - 1.030 [facility] UROBILINOGEN UA (POCT) 0.2 E.U./dL Donna l E.U./dL [facility] XR KNEE GENERAL 4V AP BOTH/P A BOTH/LAT/MERC LEFTon 01-19-2022 [facility] XR Knee - left 4 Viewson IMPRESSION: Small am ount of left joint fluid and prepatellar and infrapatellar soft tissue swelling.. Degenerative changes as detailed in report. No evidence of fracture or dislocation. Chief Vendor Quality: [employer]IN[employer]O Transcribe Date/Time: Jan 19 2022 1:58P Dictated by : AMARA DE PAZ MD This examination was interpreted and the report reviewed and electronically signed by: AMARA DE PAZ MD on Jan 19 2022 2:01PM [facility] DIVISION OF RADIOLOGY * * *Final Report* * * DATE OF EXAM: Jan 19 2022 1:51PM WOX 5202 - XR KNEE 4V AP/PA BOTH+LAT/JOSEPH LT / PROCEDURE REASON: Fall, initial encounter * * * * Physician Interpretation * * * * EXAMINATION: XR KNEE 4V AP/PA BOTH+LAT/JOSEPH LT HISTORY: Left knee pain. Fall, initial encounter . TECHNIQUE: XR KNEE 4V AP/PA BOTH+LAT/JOSEPH LT Laterality: LEFT Number of different views (projections): 4 M: XB_1 COMPARISON: Comparison is made to prior knee study dated 04 April 2021 RESULT: Standing frontal radiographs of the bilateral [...] swelling. No evidence of radiopaque foreign body. DIVISION OF RADIOLOGY Provider, [facility] - 01/19/2022 * * *Final Report* * * DATE OF EXAM: Jan 19 2022 1:51PM WOX 5202 - XR KNEE 4V AP/PA BOTH+LAT/JOSEPH LT / PROCEDURE REASON: Fall, initial encounter * * * * Physician Interpretation * * * * EXAMINATION: XR KNEE 4V AP/PA BOTH+LAT/JOSEPH LT HISTORY: Left knee pain. Fall, initial encounter . TECHNIQUE: XR KNEE 4V AP/PA BOTH+LAT/JOSEPH LT Laterality: LEFT Number of different views (projections): 4 M: XB_1 COMPARISON: Comparison is made to prior knee study dated 04 April 2021 RESULT: Standing frontal radiographs of the bilateral [...] report. No evidence of fracture or dislocation. Chief Vendor Quality: [employer] Transcribe Date/Time: Jan 19 2022 1:58P Dictated by : AMARA DE PAZ MD This examination was interpreted and the report reviewed and electronically signed by: AMARA DE PAZ MD on Jan 19 2022 2:01PM EST [facility] Radiology Study observation (narrative) [facility] XR Knee - left 4 ViewsOrdere d By: [facility] Provider on 01-19-2022 [facility] Basophil percentageon 2021 Chloride [Moles/Vol] 103 mmol/L 98-107 [facility] Work Phone: Glucose [Mass/Vol] 109 mg/dL 74-106 [facility] Work Phone: Comment on above: Fasting Glucose resu lt from 100 to 125 mg/dL suggests IMPAIRED HOMEOSTASIS per A.D.A. criteria. Potassium [Moles/Vol] 3.6 mmol/L 3.5-5.1 [facility] Work Phone: Sodium [Moles/Vol] 141 mmol/L 136-145 [facility] Work Phone: Laboratory - Chemistry and C hemistry - challengeon 01-11-2022 CO2 [Moles/Vol] 32.0 mmol/L 21.0-32.0 [facility] Work Phone: Urea nitrogen/Creatinine [Mass ratio] 22.7 mg/mg 10-20 [facility] Work Phone: No Panel Informationon 01-11 Estimated GFR (MDRD) Amer 56 mL/min >60 [facility] Work Phone: Comment on above: GFR Calc Estimated GFR (MDRD) Non-Af Amer 46 mL/min >60 [facility] Work Phone: Comment on above: Non- GFR Calc Serum or plasma calcium nancy urement (mass/volume)on 01-11-2022 Calcium [Mass/Vol] 9.6 mg/dL 8.5-10.1 [facility] Work Phone: Serum or plasma creatinine m easurement (mass/volume)on 01-11-2022 Creatinine [Mass/Vol] 1.19 mg/dL 0.55-1.02 [facility] Work Phone: Comment on above: The validity of the calculated GFR & GFRAA in patients over 70 years has not been determined. Clinical correlation is essential. Serum or plasma urea nitroge n measurement (mass/volume)on 01-11-2022 Urea nitrogen [Mass/Vol] 27 mg/dL 7-18 [facility] Work Phone: Thin prep Papanicolaou smear with manual screeningon 01-11-2022 Thin prep Papanicolaou smear with manual screening 6 5-15 [facility] Work Phone: Absolute lymphocyte counton 01-04-2022 Lymphocytes Auto (Unsp spec) [#/Vol] 2.58 10*3/uL 0.83-4.51 [facility] Work Phone: Basophil percentageon 2021 Basophils/100 WBC (Bld) 0.4 % 0-1 [facility] Work Phone: Chloride [Moles/Vol] 105 mmol/L 98-107 [facility] Work Phone: Eosinophils/100 WBC (Bld) 0.6 % 0-5 [facility] Work Phone: Glucose [Mass/Vol] 102 mg/dL 74-106 [facility] Work Phone: Comment on above: Fasting Glucose resu lt from 100 to 125 mg/dL suggests IMPAIRED HOMEOSTASIS per A.D.A. criteria. Neutrophils (Bld) [#/Vol] 5.4 10*3/uL 2.0-7.7 [facility] Work Phone: Neutrophils/100 WBC (Bld) 60.2 % 47-70 [facility] Work Phone: Potassium [Moles/Vol] 3.6 mmol/L 3.5-5.1 [facility] Work Phone: Sodium [Moles/Vol] 140 mmol/L 136-145 [facility] Work Phone: WBC (Bld) [#/Vol] 9.0 10*3/uL 4.4-11.0 [facility] Work Phone: Blood erythrocytes count (nu mber/volume)on 01-04-2022 RBC (Bld) [#/Vol] 4.76 10*6/uL 4.2-5.4 [facility] Work Phone: Blood hemoglobin measurement (mass/volume)on 01-04-2022 Hemoglobin (Bld) [Mass/Vol] 13.5 g/dL 12.0-15.0 [facility] Work Phone: Blood lymphocytes/100 leukoc yteson 01-04-2022 Lymphocytes/100 WBC (Bld) 28.8 % 19-41 [facility] Work Phone: Blood monocytes/100 leukocyt eson 01-04-2022 Monocytes/100 WBC (Bld) 9.6 % 0-10 [facility] Work Phone: Blood platelet mean volumeon 01-04-2022 Platelet mean volume (Bld) [Entitic vol] 11.2 fL 6.2-12.0 [facility] Work Phone: Determination of erythrocyte mean corpuscular volume (MCV)on 01-04-2022 MCV (RBC) [Entitic vol] 87.2 fL 81-99 [facility] Work Phone: Hematocrit Auto (Bld) [Volum e fraction]on 01-04-2022 Hematocrit (Bld) [Volume fraction] 41.5 % 37-47 [facility] Work Phone: Laboratory - Chemistry and C hemistry - challengeon 01-04-2022 CO2 [Moles/Vol] 30.0 mmol/L 21.0-32.0 [facility] Work Phone: Natriuretic peptide B (Bld) [Mass/Vol] 428.6 pg/mL 0-100 [facility] Work Phone: Urea nitrogen/Creatinine [Mass ratio] 17.6 mg/mg 10-20 [facility] Work Phone: Laboratory - Hematology and Cell countson 01-04-2022 Erythrocyte distribution width (RBC) [Entitic vol] 42.5 fL 35.1-43.9 [facility] Work Phone: Erythrocyte distribution width (RBC) [Ratio] 13.2 % 11.6-14.6 [facility] Work Phone: Immature granulocytes/100 WBC (Bld) 0.400 % 0.0-0.9 [facility] Work Phone: Comment on above: IG% - Immature Granu locytes (promyelocytes, myelocytes and metamyelocytes) > 1% indicates that a LEFT SHIFT is Present. MCH (RBC) [Entitic mass] 28.4 pg 27.0-32.0 [facility] Work Phone: Nucleated RBC/100 WBC (Bld) [Ratio] 0 % 0-5 [facility] Work Phone: MCHC Auto (RBC) [Mass/Vol]on 01-04-2022 MCHC (RBC) [Mass/Vol] 32.5 g/dL 32-36 [facility] Work Phone: No Panel Informationon 01-04 Estimated GFR (MDRD) Amer 63 mL/min >60 [facility] Work Phone: Comment on above: GFR Calc Estimated GFR (MDRD) Non-Af Amer 52 mL/min >60 [facility] Work Phone: Comment on above: Non- GFR Calc Platelets bldon 01-04-2022 Platelets (Bld) [#/Vol] 270 10*3/uL 150-450 [facility] Work Phone: Serum or plasma calcium nancy urement (mass/volume)on 01-04-2022 Calcium [Mass/Vol] 9.3 mg/dL 8.5-10.1 [facility] Work Phone: Serum or plasma creatinine m easurement (mass/volume)on 01-04-2022 Creatinine [Mass/Vol] 1.08 mg/dL 0.55-1.02 [facility] Work Phone: Comment on above: The validity of the calculated GFR & GFRAA in patients over 70 years has not been determined. Clinical correlation is essential. Serum or plasma urea nitroge n measurement (mass/volume)on 01-04-2022 Urea nitrogen [Mass/Vol] 19 mg/dL 7-18 [facility] Work Phone: Thin prep Papanicolaou smear with manual screeningon 01-04-2022 Thin prep Papanicolaou smear with manual screening 5 5-15 [facility] Work Phone: INR (POC)on 01-02-2022 INR Coag (PPP) [Relative time] 4.5 {INR} High 0.8 - 1.2 [facility] Internal Quality Check Acceptable Cl [facility] UA DIP, URINE (POC)on 2021 BILIRUBIN UA (POCT) Negative Negative [facility] CLARITY UA (POCT) Clear [facility] COLOR UA (POCT) Yellow [facility] GLUCOSE UA (POCT) Negative Negative mg/dL [facility] HEMOGLOBIN/BLOOD UA (POCT) Trace-intact Abnormal Negative [facility] KETONE UA (POCT) Negative Negative mg/dL [facility] LEUKOCYTES UA (POCT) Moderate Abnormal Negative [facility] NITRITE UA (POCT) Negative Negative [facility] PH UA (POCT) 6.0 4.5 - 8.0 [facility] Protein Ql (U) Negative Negative mg/dL [facility] SPECIFIC GRAVITY UA (POCT) 1.010 1.005 - 1.030 [facility] UROBILINOGEN UA (POCT) 0.2 E.U./dL Donna l E.U./dL [facility] No Panel Informationon 11-11 Troponin I High Sensitivity 7 pg/mL 3.0-54.0 [facility] Work Phone: Comment on above: Please Note: New Suzie t Units and Gender Specific Reference Ranges. For more information see Policy Stat Procedure [place] High Sensitivity Troponin (TNIH) and attachments. Absolute lymphocyte counton 11-10-2021 Lymphocytes Auto (Unsp spec) [#/Vol] 2.87 10*3/uL 0.83-4.51 [facility] Work Phone: Basophil percentageon 2021 Basophils/100 WBC (Bld) 0.6 % 0-1 [facility] Work Phone: Chloride [Moles/Vol] 104 mmol/L 98-107 [facility] Work Phone: Eosinophils/100 WBC (Bld) 0.9 % 0-5 [facility] Work Phone: Glucose [Mass/Vol] 114 mg/dL 74-106 [facility] Work Phone: [phone] Comment on above: Fasting Glucose resu lt from 100 to 125 mg/dL suggests IMPAIRED HOMEOSTASIS per A.D.A. criteria. Neutrophils (Bld) [#/Vol] 6.1 10*3/uL 2.0-7.7 [facility] Work Phone: Neutrophils/100 WBC (Bld) 60.5 % 47-70 [facility] Work Phone: Potassium [Moles/Vol] 3.3 mmol/L 3.5-5.1 [facility] Work Phone: Sodium [Moles/Vol] 139 mmol/L 136-145 [facility] Work Phone: [phone] WBC (Bld) [#/Vol] 10.0 10*3/uL 4.4-11.0 [facility] Work Phone: [phone] Blood erythrocytes count (nu mber/volume)on 11-10-2021 RBC (Bld) [#/Vol] 5.14 10*6/uL 4.2-5.4 [facility] Work Phone: Blood hemoglobin measurement (mass/volume)on 11-10-2021 Hemoglobin (Bld) [Mass/Vol] 14.2 g/dL 12.0-15.0 [facility] Work Phone: [phone] Blood lymphocytes/100 leukoc yteson 11-10-2021 Lymphocytes/100 WBC (Bld) 28.6 % 19-41 [facility] Work Phone: Blood monocytes/100 leukocyt eson 11-10-2021 Monocytes/100 WBC (Bld) 9.0 % 0-10 [facility] Work Phone: Blood platelet mean volumeon 11-10-2021 Platelet mean volume (Bld) [Entitic vol] 11.6 fL 6.2-12.0 [facility] Work Phone: Determination of erythrocyte mean corpuscular volume (MCV)on 11-10-2021 MCV (RBC) [Entitic vol] 88.9 fL 81-99 [facility] Work Phone: Hematocrit Auto (Bld) [Volum e fraction]on 11-10-2021 Hematocrit (Bld) [Volume fraction] 45.7 % 37-47 [facility] Work Phone: Laboratory - Chemistry and C hemistry - challengeon 11-10-2021 CO2 [Moles/Vol] 28.0 mmol/L 21.0-32.0 [facility] Work Phone: Urea nitrogen/Creatinine [Mass ratio] 17.7 mg/mg 10-20 [facility] Work Phone: Laboratory - Hematology and Cell countson 11-10-2021 Erythrocyte distribution width (RBC) [Entitic vol] 42.0 fL 35.1-43.9 [facility] Work Phone: Erythrocyte distribution width (RBC) [Ratio] 12.7 % 11.6-14.6 [facility] Work Phone: Immature granulocytes/100 WBC (Bld) 0.400 % 0.0-0.9 [facility] Work Phone: Comment on above: IG% - Immature Granu locytes (promyelocytes, myelocytes and metamyelocytes) > 1% indicates that a LEFT SHIFT is Present. MCH (RBC) [Entitic mass] 27.6 pg 27.0-32.0 [facility] Work Phone: Nucleated RBC/100 WBC (Bld) [Ratio] 0 % 0-5 [facility] Work Phone: MCHC Auto (RBC) [Mass/Vol]on 11-10-2021 MCHC (RBC) [Mass/Vol] 31.1 g/dL 32-36 [facility] Work Phone: No Panel Informationon 11-10 Estimated Creatinine Clearance Calc 20.48 ml/min [facility] Work Phone: Estimated GFR (MDRD) Amer 33 mL/min >60 [facility] Work Phone: Comment on above: GFR Calc Estimated GFR (MDRD) Non-Af Amer 28 mL/min >60 [facility] Work Phone: Comment on above: Non- GFR Calc Platelets bldon 11-10-2021 Platelets (Bld) [#/Vol] 313 10*3/uL 150-450 [facility] Work Phone: Serum or plasma calcium nancy urement (mass/volume)on 11-10-2021 Calcium [Mass/Vol] 9.9 mg/dL 8.5-10.1 [facility] Work Phone: Serum or plasma creatinine m easurement (mass/volume)on 11-10-2021 Creatinine [Mass/Vol] 1.86 mg/dL 0.55-1.02 [facility] Work Phone: Comment on above: The validity of the calculated GFR & GFRAA in patients over 70 years has not been determined. Clinical correlation is essential. Serum or plasma urea nitroge n measurement (mass/volume)on 11-10-2021 Urea nitrogen [Mass/Vol] 33 mg/dL 7-18 [facility] Work Phone: Thin prep Papanicolaou smear with manual screeningon 11-10-2021 Thin prep Papanicolaou smear with manual screening 7 5-15 [facility] Work Phone: Basophil percentageon 2021 Chloride [Moles/Vol] 105 mmol/L 98-107 [facility] Work Phone: Glucose [Mass/Vol] 102 mg/dL 74-106 [facility] Work Phone: Comment on above: Fasting Glucose resu lt from 100 to 125 mg/dL suggests IMPAIRED HOMEOSTASIS per A.D.A. criteria. Potassium [Moles/Vol] 3.2 mmol/L 3.5-5.1 [facility] Work Phone: Sodium [Moles/Vol] 142 mmol/L 136-145 [facility] Work Phone: Laboratory - Chemistry and C hemistry - challengeon 10-11-2021 CO2 [Moles/Vol] 32.0 mmol/L 21.0-32.0 [facility] Work Phone: Natriuretic peptide B (Bld) [Mass/Vol] 272.9 pg/mL 0-100 [facility] Work Phone: Urea nitrogen/Creatinine [Mass ratio] 22.3 mg/mg 10-20 [facility] Work Phone: No Panel Informationon 10-11 Estimated GFR (MDRD) Amer 66 mL/min >60 [facility] Work Phone: Comment on above: GFR Calc Estimated GFR (MDRD) Non-Af Amer 55 mL/min >60 [facility] Work Phone: Comment on above: Non- GFR Calc Serum or plasma calcium nancy urement (mass/volume)on 10-11-2021 Calcium [Mass/Vol] 9.2 mg/dL 8.5-10.1 [facility] Work Phone: Serum or plasma creatinine m easurement (mass/volume)on 10-11-2021 Creatinine [Mass/Vol] 1.03 mg/dL 0.55-1.02 [facility] Work Phone: Comment on above: The validity of the calculated GFR & GFRAA in patients over 70 years has not been determined. Clinical correlation is essential. Serum or plasma urea nitroge n measurement (mass/volume)on 10-11-2021 Urea nitrogen [Mass/Vol] 23 mg/dL 7-18 [facility] Work Phone: Thin prep Papanicolaou smear with manual screeningon 10-11-2021 Thin prep Papanicolaou smear with manual screening 5 5-15 [facility] Work Phone: Absolute lymphocyte counton 10-04-2021 Lymphocytes Auto (Unsp spec) [#/Vol] 2.28 10*3/uL 0.83-4.51 [facility] Work Phone: Basophil percentageon 2021 Basophils/100 WBC (Bld) 0.5 % 0-1 [facility] Work Phone: Chloride [Moles/Vol] 105 mmol/L 98-107 [facility] Work Phone: Eosinophils/100 WBC (Bld) 0.9 % 0-5 [facility] Work Phone: Glucose [Mass/Vol] 100 mg/dL 74-106 [facility] Work Phone: Comment on above: Fasting Glucose resu lt from 100 to 125 mg/dL suggests IMPAIRED HOMEOSTASIS per A.D.A. criteria. Neutrophils (Bld) [#/Vol] 5.9 10*3/uL 2.0-7.7 [facility] Work Phone: Neutrophils/100 WBC (Bld) 64.1 % 47-70 [facility] Work Phone: Potassium [Moles/Vol] 4.1 mmol/L 3.5-5.1 [facility] Work Phone: Sodium [Moles/Vol] 141 mmol/L 136-145 [facility] Work Phone: WBC (Bld) [#/Vol] 9.1 10*3/uL 4.4-11.0 [facility] Work Phone: Blood erythrocytes count (nu mber/volume)on 10-04-2021 RBC (Bld) [#/Vol] 4.81 10*6/uL 4.2-5.4 [facility] Work Phone: Blood hemoglobin measurement (mass/volume)on 10-04-2021 Hemoglobin (Bld) [Mass/Vol] 13.6 g/dL 12.0-15.0 [facility] Work Phone: Blood lymphocytes/100 leukoc yteson 10-04-2021 Lymphocytes/100 WBC (Bld) 25.0 % 19-41 [facility] Work Phone: Blood monocytes/100 leukocyt eson 10-04-2021 Monocytes/100 WBC (Bld) 9.0 % 0-10 [facility] Work Phone: Blood platelet mean volumeon 10-04-2021 Platelet mean volume (Bld) [Entitic vol] 11.1 fL 6.2-12.0 [facility] Work Phone: Determination of erythrocyte mean corpuscular volume (MCV)on 10-04-2021 MCV (RBC) [Entitic vol] 90.9 fL 81-99 [facility] Work Phone: Hematocrit Auto (Bld) [Volum e fraction]on 10-04-2021 Hematocrit (Bld) [Volume fraction] 43.7 % 37-47 [facility] Work Phone: Laboratory - Chemistry and C hemistry - challengeon 10-04-2021 CO2 [Moles/Vol] 30.0 mmol/L 21.0-32.0 [facility] Work Phone: Natriuretic peptide B (Bld) [Mass/Vol] 336.3 pg/mL 0-100 [facility] Work Phone: Urea nitrogen/Creatinine [Mass ratio] 20.2 mg/mg 10-20 [facility] Work Phone: Laboratory - Hematology and Cell countson 10-04-2021 Erythrocyte distribution width (RBC) [Entitic vol] 42.6 fL 35.1-43.9 [facility] Work Phone: Erythrocyte distribution width (RBC) [Ratio] 12.7 % 11.6-14.6 [facility] Work Phone: Immature granulocytes/100 WBC (Bld) 0.500 % 0.0-0.9 [facility] Work Phone: Comment on above: IG% - Immature Granu locytes (promyelocytes, myelocytes and metamyelocytes) > 1% indicates that a LEFT SHIFT is Present. MCH (RBC) [Entitic mass] 28.3 pg 27.0-32.0 [facility] Work Phone: Nucleated RBC/100 WBC (Bld) [Ratio] 0 % 0-5 [facility] Work Phone: MCHC Auto (RBC) [Mass/Vol]on 10-04-2021 MCHC (RBC) [Mass/Vol] 31.1 g/dL 32-36 [facility] Work Phone: No Panel Informationon 10-04 Estimated GFR (MDRD) Amer 69 mL/min >60 [facility] Work Phone: Comment on above: GFR Calc Estimated GFR (MDRD) Non-Af Amer 57 mL/min >60 [facility] Work Phone: Comment on above: Non- GFR Calc Thyroid Stimulating Hormone (TSH) 0.73 uIU/mL 0.358-3.74 [facility] Work Phone: Platelets bldon 10-04-2021 Platelets (Bld) [#/Vol] 292 10*3/uL 150-450 [facility] Work Phone: Serum or plasma calcium nancy urement (mass/volume)on 10-04-2021 Calcium [Mass/Vol] 9.6 mg/dL 8.5-10.1 [facility] Work Phone: Serum or plasma creatinine m easurement (mass/volume)on 10-04-2021 Creatinine [Mass/Vol] 0.99 mg/dL 0.55-1.02 [facility] Work Phone: Comment on above: The validity of the calculated GFR & GFRAA in patients over 70 years has not been determined. Clinical correlation is essential. Serum or plasma urea nitroge n measurement (mass/volume)on 10-04-2021 Urea nitrogen [Mass/Vol] 20 mg/dL 7-18 [facility] Work Phone: Thin prep Papanicolaou smear with manual screeningon 10-04-2021 Thin prep Papanicolaou smear with manual screening 6 5-15 [facility] Work Phone: INR in Blood by Coagulation assayon 09-09-2021 INR Coag (Bld) [Relative time] 1.4 {INR} [facility] Laboratory - Coagulationon 0 09-09-2021 PT Coag (PPP) [Time] 17.2 s 11.7-14.9 [facility] Work Phone: UA DIP, URINE (POC)on 2021 BILIRUBIN UA (POCT) Negative Negative [facility] CLARITY UA (POCT) Clear [facility] COLOR UA (POCT) Yellow [facility] GLUCOSE UA (POCT) Negative Negative mg/dL [facility] HEMOGLOBIN/BLOOD UA (POCT) Large Abnormal Negative [facility] KETONE UA (POCT) Negative Negative mg/dL [facility] LEUKOCYTES UA (POCT) Small Abnormal Negative [facility] NITRITE UA (POCT) Negative Negative [facility] PH UA (POCT) 7.0 4.5 - 8.0 [facility] Protein Ql (U) >=300 Abnormal Negative mg/dL [facility] SPECIFIC GRAVITY UA (POCT) 1.020 1.005 - 1.030 [facility] UROBILINOGEN UA (POCT) 0.2 E.U./dL Donna l E.U./dL [facility] Absolute lymphocyte counton 07-07-2021 Lymphocytes Auto (Unsp spec) [#/Vol] 2.63 10*3/uL 0.83-4.51 [facility] Work Phone: Basophil percentageon 2021 Basophils/100 WBC (Bld) 0.4 % 0-1 [facility] Work Phone: Bilirubin [Mass/Vol] 0.50 mg/dL 0.20-1.00 [facility] Work Phone: Comment on above: For patients on eltr ombopag therapy, use of Dimension [place] TBIL is not recommended. Chloride [Moles/Vol] 108 mmol/L 98-107 [facility] Work Phone: Eosinophils/100 WBC (Bld) 0.7 % 0-5 [facility] Work Phone: Glucose [Mass/Vol] 89 mg/dL 74-106 [facility] Work Phone: Neutrophils (Bld) [#/Vol] 5.3 10*3/uL 2.0-7.7 [facility] Work Phone: Neutrophils/100 WBC (Bld) 59.4 % 47-70 [facility] Work Phone: Potassium [Moles/Vol] 4.1 mmol/L 3.5-5.1 [facility] Work Phone: [phone] Protein [Mass/Vol] 6.7 g/dL 6.4-8.2 [facility] Work Phone: Sodium [Moles/Vol] 142 mmol/L 136-145 [facility] Work Phone: WBC (Bld) [#/Vol] 8.9 10*3/uL 4.4-11.0 [facility] Work Phone: Blood erythrocytes count (nu mber/volume)on 07-07-2021 RBC (Bld) [#/Vol] 4.84 10*6/uL 4.2-5.4 [facility] Work Phone: Blood hemoglobin measurement (mass/volume)on 07-07-2021 Hemoglobin (Bld) [Mass/Vol] 13.6 g/dL 12.0-15.0 [facility] Work Phone: Blood lymphocytes/100 leukoc yteson 07-07-2021 Lymphocytes/100 WBC (Bld) 29.5 % 19-41 [facility] Work Phone: Blood monocytes/100 leukocyt eson 07-07-2021 Monocytes/100 WBC (Bld) 9.4 % 0-10 [facility] Work Phone: Blood platelet mean volumeon 07-07-2021 Platelet mean volume (Bld) [Entitic vol] 10.6 fL 6.2-12.0 [facility] Work Phone: Determination of erythrocyte mean corpuscular volume (MCV)on 07-07-2021 MCV (RBC) [Entitic vol] 90.3 fL 81-99 [facility] Work Phone: Hematocrit Auto (Bld) [Volum e fraction]on 07-07-2021 Hematocrit (Bld) [Volume fraction] 43.7 % 37-47 [facility] Work Phone: Laboratory - Chemistry and C hemistry - challengeon 07-07-2021 ALP [Catalytic activity/Vol] 50 U/L 45-117 [facility] Work Phone: ALT [Catalytic activity/Vol] 29 U/L 13-56 [facility] Work Phone: CO2 [Moles/Vol] 30.0 mmol/L 21.0-32.0 [facility] Work Phone: Globulin (S) [Mass/Vol] 3.3 g/dL 2.2-4.2 [facility] Work Phone: Urea nitrogen/Creatinine [Mass ratio] 20.8 mg/mg 10-20 [facility] Work Phone: Laboratory - Hematology and Cell countson 07-07-2021 Erythrocyte distribution width (RBC) [Entitic vol] 45.2 fL 35.1-43.9 [facility] Work Phone: Erythrocyte distribution width (RBC) [Ratio] 13.6 % 11.6-14.6 [facility] Work Phone: Immature granulocytes/100 WBC (Bld) 0.600 % 0.0-0.9 [facility] Work Phone: Comment on above: IG% - Immature Granu locytes (promyelocytes, myelocytes and metamyelocytes) > 1% indicates that a LEFT SHIFT is Present. MCH (RBC) [Entitic mass] 28.1 pg 27.0-32.0 [facility] Work Phone: Nucleated RBC/100 WBC (Bld) [Ratio] 0 % 0-5 [facility] Work Phone: MCHC Auto (RBC) [Mass/Vol]on 07-07-2021 MCHC (RBC) [Mass/Vol] 31.1 g/dL 32-36 [facility] Work Phone: No Panel Informationon 07-07 Estimated Creatinine Clearance Calc 40.36 ml/min [facility] [place] Work Phone: Estimated GFR (MDRD) Amer 72 mL/min >60 [facility] [place] Work Phone: Comment on above: GFR Calc Estimated GFR (MDRD) Non-Af Amer 59 mL/min >60 [facility] [place] Work Phone: Comment on above: Non- GFR Calc Platelets bldon 07-07-2021 Platelets (Bld) [#/Vol] 308 10*3/uL 150-450 [facility] [place] Work Phone: Serum or plasma albumin nancy urement (mass/volume)on 07-07-2021 Albumin [Mass/Vol] 3.4 g/dL 3.2-5.0 [facility] Work Phone: Serum or plasma albumin/glob ulin mass ratioon 07-07-2021 Albumin/Globulin [Mass ratio] 1.0 {ratio} 0.9-2.4 [facility] [place] Work Phone: Serum or plasma calcium nancy urement (mass/volume)on 07-07-2021 Calcium [Mass/Vol] 9.4 mg/dL 8.5-10.1 [facility] Work Phone: Serum or plasma creatinine m easurement (mass/volume)on 07-07-2021 Creatinine [Mass/Vol] 0.96 mg/dL 0.55-1.02 [facility] Work Phone: Comment on above: The validity of the calculated GFR & GFRAA in patients over 70 years has not been determined. Clinical correlation is essential. Serum or plasma urea nitroge n measurement (mass/volume)on 07-07-2021 Urea nitrogen [Mass/Vol] 20 mg/dL 7-18 [facility] [place] Work Phone: Thin prep Papanicolaou smear with manual screeningon 07-07-2021 Thin prep Papanicolaou smear with manual screening 16 U/L 15-37 [facility] [place] Work Phone: Thin prep Papanicolaou smear with manual screening 4 5-15 [facility] [place] Work Phone: XR Knee - left 4 Viewson IMPRESSION: No acute osseous abnormality. Left knee osteoarthritis, mild to moderate in the patellofemoral compartment. Chief Vendor Quality: [employer] Transcribe Date/Time: Apr 04 2021 11:14A Dictated by : QUINTIN MORALES MD This examination was interpreted and the report reviewed and electronically signed by: QUINTIN MORALES MD on Apr 04 2021 11:17AM [facility] DIVISION OF RADIOLOGY * * *Final Report* * * DATE OF EXAM: Apr 04 2021 11:06AM WOX 5202 - XR KNEE 4V AP/PA BOTH+LAT/JOSEPH LT / PROCEDURE REASON: Acute pain of left knee * * * * Physician Interpretation * * * * EXAMINATION / TECHNIQUE: XR KNEE 4V AP/PA BOTH+LAT/JOSEPH LT PATIENT/TECHNOLOGIST PROVIDED HISTORY: Was just standing on Sunday and turned and felt immediate pain and is worsening, pain on medial nd lateral sides of left knee no inj CLINICAL INFORMATION ( PROVIDED BY ORDERING CLINICIAN) : Acute pain of left knee COMPARISON: None RESULT: No acute fracture or dislocation. And moderate patellofemoral joint space narrowing with mild medial compartment joint space narrowing. The lateral compartment is grossly preserved. Tricompartmental osteophytes, bulky in the patellofemoral compartment. Small knee joint effusion. Vascular calcifications. DIVISION OF RADIOLOGY Provider, [facility] - 04/04/2021 * * *Final Report* * * DATE OF EXAM: Apr 04 2021 11:06AM WOX 5202 - XR KNEE 4V AP/PA BOTH+LAT/JOSEPH LT / PROCEDURE REASON: Acute pain of left knee * * * * Physician Interpretation * * * * EXAMINATION / TECHNIQUE: XR KNEE 4V AP/PA BOTH+LAT/JOSEPH LT PATIENT/TECHNOLOGIST PROVIDED HISTORY: Was just standing on Sunday and turned and felt immediate pain and is worsening, pain on medial nd lateral sides of left knee no inj CLINICAL INFORMATION ( PROVIDED BY ORDERING CLINICIAN) : Acute pain of left knee COMPARISON: None RESULT: No acute fracture or dislocation. And moderate patellofemoral joint space narrowing with mild medial compartment joint space narrowing. The lateral compartment is grossly preserved. Tricompartmental osteophytes, bulky in the patellofemoral compartment. Small knee joint effusion. Vascular calcifications. IMPRESSION IMPRESSION: No acute osseous abnormality. Left knee osteoarthritis, mild to moderate in the patellofemoral compartment. 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 Chief Vendor Quality: MAYANKB Transcribe Date/Time: Sep 14 2020 11:32A Dictated by : CHELY NAPIER MD This examination was interpreted and the report reviewed and electronically signed by: CHELY NAPIER MD on Sep 14 2020 11:34AM EST DIVISION OF RADIOLOGY Radiology Study observation (narrative) [facility] No Panel InformationOrdered By: [facility] Provider on 09-14-2020 [facility] XR Cervical spine AP and Lat eral and obliqueon 09-14-2020 * * *Final Report* * * DATE OF EXAM: Sep 14 2020 11:07AM WOX 5311 - XR CERVICAL 4V AP/LAT/OBL / PROCEDURE REASON: Acute pain of right shoulder * * * * Physician Interpretation * * * * Cervical spine and right shoulder radiographs HISTORY: 80 years old Clinical information: Acute pain of right shoulder Posterior right shoulder pain x 3 days without injury (accession [id number]), Posterior neck pain that radiates to the right shoulder x 3 days without injury. (accession [id number]) TECHNIQUE: Images: XR SHOULDER 2V AP/TRUE AP RT, XR CERVICAL 4V AP/LAT/OBL Comparison: None. Right shoulder RESULT: Glenohumeral joint space is maintained. Narrowing of the acromioclavicular joint with mild adjacent osteophyte formation. Inferior down pointing of the lateral acromion. No fracture or dislocation. No soft tissue abnormality identified. Cervical spine RESULT: No gross malalignment. Endplate osteophytes at multiple levels in the cervical spine. Facet hypertrophy at multiple levels. No fracture. Suboptimal evaluation of the right neural foramina secondary to patient rotation. Mild left-sided C2-3, C3-4, C4-5 neural foraminal stenosis. The prevertebral soft tissues are within normal limits. Imaged lung apices are clear. Vascular calcifications in the neck. DIVISION OF RADIOLOGY Provider, [facility] - 09/14/2020 * * *Final Report* * * DATE OF EXAM: Sep 14 2020 11:07AM WOX 5311 - XR CERVICAL 4V AP/LAT/OBL / PROCEDURE REASON: Acute pain of right shoulder * * * * Physician Interpretation * * * * Cervical spine and right shoulder radiographs HISTORY: 80 years old Clinical information: Acute pain of right shoulder Posterior right shoulder pain x 3 days without injury (accession [id number]), Posterior neck pain that radiates to the right shoulder x 3 days without injury. (accession [id number]) TECHNIQUE: Images: XR SHOULDER 2V AP/TRUE AP RT, XR CERVICAL 4V AP/LAT/OBL Comparison: None. Right shoulder RESULT: Glenohumeral joint space is maintained. Narrowing of the acromioclavicular joint with mild adjacent osteophyte formation. Inferior down pointing of the lateral acromion. No fracture or dislocation. No soft tissue abnormality identified. Cervical spine RESULT: No gross malalignment. Endplate osteophytes at multiple levels in the cervical spine. Facet hypertrophy at multiple levels. No fracture. Suboptimal evaluation of the right neural foramina secondary to patient rotation. Mild left-sided C2-3, C3-4, C4-5 neural foraminal stenosis. The prevertebral soft tissues are within normal limits. Imaged lung apices are clear. Vascular calcifications in the neck. 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 Chief Vendor Quality: [employer] Transcribe Date/Time: Sep 14 2020 11:32A Dictated by : CHELY NAPIER MD This examination was interpreted and the report reviewed and electronically signed by: CHELY NAPIER MD on Sep 14 2020 11:34AM EST [facility] XR Shoulder - right 2 Viewso n 09-14-2020 * * *Final Report* * * DATE OF EXAM: Sep 14 2020 11:07AM WOX 5255 - XR SHOULDER 2V AP/TRUE AP RT / PROCEDURE REASON: Acute pain of right shoulder * * * * Physician Interpretation * * * * Cervical spine and right shoulder radiographs HISTORY: 80 years old Clinical information: Acute pain of right shoulder Posterior right shoulder pain x 3 days without injury (accession [id number]), Posterior neck pain that radiates to the right shoulder x 3 days without injury. (accession [id number]) TECHNIQUE: Images: XR SHOULDER 2V AP/TRUE AP RT, XR CERVICAL 4V AP/LAT/OBL Comparison: None. Right shoulder RESULT: Glenohumeral joint space is maintained. Narrowing of the acromioclavicular joint with mild adjacent osteophyte formation. Inferior down pointing of the lateral acromion. No fracture or dislocation. No soft tissue abnormality identified. Cervical spine RESULT: No gross malalignment. Endplate osteophytes at multiple levels in the cervical spine. Facet hypertrophy at multiple levels. No fracture. Suboptimal evaluation of the right neural foramina secondary to patient rotation. Mild left-sided C2-3, C3-4, C4-5 neural foraminal stenosis. The prevertebral soft tissues are within normal limits. Imaged lung apices are clear. Vascular calcifications in the neck. DIVISION OF RADIOLOGY Provider, [facility] - 09/14/2020 * * *Final Report* * * DATE OF EXAM: Sep 14 2020 11:07AM WOX 5255 - XR SHOULDER 2V AP/TRUE AP RT / PROCEDURE REASON: Acute pain of right shoulder * * * * Physician Interpretation * * * * Cervical spine and right shoulder radiographs HISTORY: 80 years old Clinical information: Acute pain of right shoulder Posterior right shoulder pain x 3 days without injury (accession [id number]), Posterior neck pain that radiates to the right shoulder x 3 days without injury. (accession [id number]) TECHNIQUE: Images: XR SHOULDER 2V AP/TRUE AP RT, XR CERVICAL 4V AP/LAT/OBL Comparison: None. Right shoulder RESULT: Glenohumeral joint space is maintained. Narrowing of the acromioclavicular joint with mild adjacent osteophyte formation. Inferior down pointing of the lateral acromion. No fracture or dislocation. No soft tissue abnormality identified. Cervical spine RESULT: No gross malalignment. Endplate osteophytes at multiple levels in the cervical spine. Facet hypertrophy at multiple levels. No fracture. Suboptimal evaluation of the right neural foramina secondary to patient rotation. Mild left-sided C2-3, C3-4, C4-5 neural foraminal stenosis. The prevertebral soft tissues are within normal limits. Imaged lung apices are clear. Vascular calcifications in the neck. 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 [facility] Transcribe Date/Time: Sep 14 2020 11:32A Dictated by : CHELY NAPIER MD This examination was interpreted and the report reviewed and electronically signed by: CHELY NAPIER MD on Sep 14 2020 11:34AM EST [facility] CT ABDOMEN/PELVIS WITHOUT CO NTRASTon 03-30-2020 CT ABDOMEN/PELVIS WITHOUT CONTRAST EXAMINATION: CT ABDOMEN/PELVIS WITHOUT CONTRAST HISTORY: Frequent UTI, history of ovarian cancer. COMPARISON: None. TECHNIQUE: CT examination of the abdomen and pelvis without IV contrast. Coronal and sagittal reformations were performed. Dose reduction techniques were achieved by using automated exposure control and/or adjustment of mA and/or kV according to patient size and/or use of iterative reconstruction technique. FINDINGS: The visualized portion of the lung base demonstrates ill-defined consolidative opacities in the bilateral lower lobes. Findings are likely related to underlying infectious/inflammatory process. The heart size is enlarged. No pericardial effusion. Diffuse thickening of the distal esophagus is likely related to underdistention. Superimposed mild esophagitis cannot be excluded. Small sliding-type hiatal hernia. Evaluation of the visceral organs is limited due to lack of IV contrast. There are a few subcentimeter low-density lesions in the liver, incompletely evaluated in this single phase study. The it sales representative low-density lesion in the subcapsular region of the right hepatic lobe measures 8 x 8 mm (series 2, image 21). The it sales representative hypodense lesion in the hepatic dome measures 12 x 9.5 mm (series 2, image 14). If desired, this can be further evaluated with nonemergent right upper quadrant ultrasound. If the right upper quadrant ultrasound is inconclusive, this can be further evaluated with CT/MRI using liver mass protocol. The gallbladder, spleen, pancreas, bilateral adrenal glands appear normal in contour. There is mild thickening of the right adrenal gland, suggestive of hyperplasia. There is a punctate hyperdensity in the left distal ureter, which may represent a tiny ureteral stone (series 2, image 113). There is no significant left-sided hydronephrosis/hydroureter . No right-sided hydronephrosis/hydroureter /nephrolithiasis. Tiny hypodense lesion in the midpole of the right kidney is too small to further characterize. The bladder is incompletely distended. The uterus is surgically absent. The ovaries could not be confidently identified. There is mild relaxation of the pelvic floor. There is a large pannus with portion of the sigmoid colon, portion of the bladder and a small portion of small bowel loop in it. There is no true ventral wall hernia. Diastasis of the rectus abdominis with a portion of the transverse colon is abutting the diastasis. Small fat-containing umbilical hernia. There is no intraperitoneal free air or free fluid. The abdominal aorta is normal in caliber with severe calcified plaque. Mild ectasia of the infrarenal abdominal aorta, measuring 4.4 cm in AP dimension. No bulky pelvic sidewall, inguinal lymph nodes. There is no abnormal soft tissue nodularity along the peritoneal reflection or the paracolic gutter. A tiny nodularity along the right paracolic gutter is likely a tiny vessel with volume averaging. No gross abnormalities of the abdominal wall. Evaluation of the GI tract is limited due to lack of oral contrast. There is also superimposed underdistention of the bowel loops. Given the limitation of the study, the small and large bowel are grossly normal in caliber. No bowel obstruction. The appendix is normal in caliber. There is a large amount of stool burden. The stomach and duodenum appears unremarkable. Ingested debris are seen in the stomach. The small bowel loops are collapsed, limiting the evaluation. 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 There is moderate sacroiliac joint arthrosis. No suspicious osseous lesion is evident. There is severe spondylotic changes in the lower lumbar spine with associated vacuum phenomenon and endplate sclerosis. IMPRESSION: Punctate hyperdensity along the left distal ureter may represent a tiny ureteral stone. No significant hydronephrosis/hydroureter . No right-sided hydronephrosis/hydroureter /nephrolithiasis. No evidence of bowel obstruction. The appendix is normal in caliber. Large amount of stool burden. The uterus is surgically absent. The ovaries cannot be confidently identified, likely surgically absent. Few scattered low-density lesions in the liver, incompletely evaluated in this study. If desired, this can be further evaluated with nonemergent right upper quadrant ultrasound. If the right upper quadrant ultrasound is inconclusive, this can be further evaluated with nonemergent CT/MRI using liver mass protocol. Normal [facility] Surgical Tissue Examon 05-30 Surgical Tissue Exam Test performed at [place] [address] NAME: SANDRINE RIVERS REQUESTING: RICH CONNELL M.D. (UROL) FINAL DIAGNOSIS: RIGHT VULVA, BIOPSY - SPONGIOTIC DERMATITIS. COMMENT: Sections demonstrate benign skin with chronic inflammation, spongiosis, and mild ortho and parakeratosis. There is no evidence of atypia or malignancy identified. OPERATIVE PROCEDURE: Vulva, biopsy CLINICAL INFORMATION: Vulvar itching [L29.2], vulvar irritation [N90.89] GROSS DESCRIPTION: Right vulvar biopsy Received in formalin labeled vulvar biopsy is one romero irregular soft tissue fragment measuring 0.4 x 0.2 x 0.2 cm. A definitive resection margin is not identified. The specimen is submitted entirely in one cassette. OLS:teto MOLINA M.D., PATHOLOGIST (Electronic signature on file) Signed out: 06/03/2019 15:05 PRINTED: 06/03/2019 Page 1 of 1 Normal [facility] Comment on above: Performed By: #### S URG #### [facility] [address] [place], [place] [address] Erythrocyte distribution wid th standard deviationon 06-19-2018 Erythrocyte distribution width (RBC) [Entitic vol] 43.1 fL 35.1-43.9 [facility] [place] Work Phone: Laboratory - Hematology and Cell countson 06-19-2018 Erythrocyte distribution width (RBC) [Ratio] 13.5 % 11.6-14.6 [facility] [place] Work Phone: No Panel Informationon 06-19 CA 125 Antigen 27.2 U/mL [facility] [place] Work Phone: Comment on above: [facility] El ectrochemiluminescence Immunoassay(ECLIA)Values obtained with different assay methods or kits cannotbe used interchangeably. Results cannot be interpreted asabsolute evidence of the presence or absence of malignantdisease.Performed at: [facility] [id number] Director: Leonardo Rivera PhD, Phone: [phone] Total cell counton 9 Cells counted [employer] (Bld/Tiss) [#] Not Reportable [facility] [place] Work Phone: Lab Report: Lipid Profileon 03-28-2017 Cholesterol 122 mg/dL Invalid Interpretation Code 200 [facility] Work Phone: [phone] HDL Cholesterol 58 mg/dL Invalid Interpretation Code [facility] Work Phone: [phone] LDL Cholesterol 25 mg/dL Invalid Interpretation Code 0-130 [facility] Work Phone: [phone] Triglyceride 194 mg/dL Invalid Interpretation Code [facility] Work Phone: [phone] very low density lipoproteins 39 mg/dL Invalid Interpretation Code 5-40 [facility] Work Phone: [phone] Lab Report: Liver Profileon 03-28-2017 Alanine aminotransferase (ALT) 28 U/L Invalid Interpretation Code 12-78 [facility] Work Phone: [phone] Albumin 3.4 g/dL Invalid Interpretation Code 3.4-5.0 [facility] Work Phone: [phone] Alkaline phosphatase (ALP) 51 U/L Invalid Interpretation Code 45-117 [facility] Work Phone: [phone] Aspartate aminotransferase (AST) 22 U/L Invalid Interpretation Code 15-37 [employer] Phone: [phone] Bilirubin (direct) 0.11 mg/dL Invalid Interpretation Code 0.00-0.30 [facility] Work Phone: [phone] Bilirubin (total) 0.40 mg/dL Invalid Interpretation Code 0.20-1.00 [employer] Phone: [phone] Globulin 3.2 g/dL Invalid Interpretation Code 2.2-4.2 [facility] [employer] Phone: [phone] Protein 6.6 g/dL Invalid Interpretation Code 6.4-8.2 [facility] Phone: [phone] Office Visiton 01-11-2017 Documentation of current medications (procedure) Done Invalid Interpretation Code [employer] Phone: [phone] Fall risk assessment Yes Invalid Interpretation Code [employer] Phone: [phone] Protein mass conc Done Invalid Interpretation Code [employer] Phone: [phone] Lab Report: Lipid Profileon 09-25-2016 Cholesterol 128 mg/dL Invalid Interpretation Code 200 [employer] Phone: [phone] HDL Cholesterol 57 mg/dL Invalid Interpretation Code [employer] Phone: [phone] LDL Cholesterol 35 mg/dL Invalid Interpretation Code 0-130 [facility] Work Phone: [phone] Triglyceride 180 mg/dL Invalid Interpretation Code [employer] Phone: [phone] very low density lipoproteins 36 mg/dL Invalid Interpretation Code 5-40 [employer] Phone: [phone] Lab Report: Liver Profileon 09-25-2016 Alanine aminotransferase (ALT) 36 U/L Invalid Interpretation Code 12-78 [facility] Work Phone: [phone] Albumin 3.5 g/dL Invalid Interpretation Code 3.4-5.0 [facility] Work Phone: Alkaline phosphatase (ALP) 49 U/L Invalid Interpretation Code 45-117 [facility] Work Phone: [phone] ALP enzyme act/vol (Bld) 49 U/L Invalid Interpretation Code 45-117 [facility] Work Phone: [phone] Aspartate aminotransferase (AST) 26 U/L Invalid Interpretation Code 15-37 [facility] Work Phone: [phone] Bilirubin (direct) 0.13 mg/dL Invalid Interpretation Code 0.00-0.30 [facility] Work Phone: [phone] Bilirubin (total) 0.40 mg/dL Invalid Interpretation Code 0.20-1.00 [facility] Work Phone: [phone] Globulin 3.3 g/dL Invalid Interpretation Code 2.3-3.5 [facility] Work Phone: [phone] Globulin mass conc (S) 3.3 g/dL 2.3-3.5 [facility] Work Phone: [phone] Protein 6.8 g/dL Invalid Interpretation Code 6.4-8.2 [facility] Work Phone: [phone] Office Visiton 07-06-2016 Dietary management education, guidance, and counseling (procedure) yes Invalid Interpretation Code [facility] Work Phone: [phone] Documentation of current medications (procedure) Done Invalid Interpretation Code [facility] [employer] Phone: [phone] Office Visit: 6 month f/u (O varian ca dx 2007) PHQ9 Completeon 06-26-2016 Adolescent depression screening assessment Adolescent depression screening assessment Invalid Interpretation Code [facility] Work Phone: [phone] Adult depression screening assessment Adult depression screening assessment Invalid Interpretation Code [facility] Work Phone: [phone] PHQ-9 quick depression assessment panel [Reported.PHQ] Adult depression screening assessment Invalid Interpretation Code [facility] Work Phone: [phone] Tobacco smoking status NHIS Former smoker Invalid Interpretation Code [facility] Work Phone: [phone] Tobacco use CPHS Former smoker Invalid Interpretation Code [facility] Work Phone: [phone] Lab Report: Cancer Antigen 1 25on 06-23-2016 cancer 125 antigen 21.5 U/mL Invalid Interpretation Code 0.0-38.1 [facility] Work Phone: [phone] Lab Report: CBC W/Diff, Auto - EPLAB Onlyon 06-22-2016 Basophils/100 leukocytes 0.7 % Invalid Interpretation Code 0-1 [facility] Work Phone: [phone] Basophils/100 WBC (Bld) 0.7 % 0-1 [facility] Work Phone: [phone] Eosinophils/100 leukocytes 1.0 % Invalid Interpretation Code 0-5 [facility] Work Phone: [phone] Eosinophils/100 WBC (Bld) 1.0 % 0-5 [facility] Work Phone: [phone] Erythrocytes (RBC) 4.88 10*6/uL Invalid Interpretation Code 4.2-5.4 [facility] Work Phone: [phone] Hematocrit (HCT) 44.5 % Invalid Interpretation Code 37-47 [facility] Work [phone] Hematocrit Volume Fraction (Bld) 44.5 % 37-47 [facility] Work [phone] Hemoglobin (HGB) 13.8 g/dL Invalid Interpretation Code 12.0-15.0 [facility] Work Phone: [phone] Lymphocytes/100 leukocytes 25.1 % Invalid Interpretation Code 19-41 [facility] Work Phone: [phone] Lymphocytes/100 WBC (Bld) 25.1 % 19-41 [facility] Work [phone] MCH 28.2 pg Invalid Interpretation Code 27.0-32.0 [facility] Work [phone] Entitic mass (RBC) 28.2 pg 27.0-32.0 [facility] Work Phone: [phone] MCHC 30.9 g/dL Low 32-36 [facility] Work Phone: [phone] MCHC mass conc (RBC) 30.9 g/dL Low 32-[address] [facility] Work Phone: [phone] MCV 91.3 fL Invalid Interpretation Code 81-99 [facility] Work Phone: MCV Entitic volume (RBC) 91.3 fL 81-99 [facility] Work Phone: Monocytes/100 leukocytes 7.2 % Invalid Interpretation Code 0-10 [facility] Work Phone: Monocytes/100 WBC (Bld) 7.2 % 0-10 [facility] Work Phone: [phone] Neutrophils/100 leukocytes 66.0 % Invalid Interpretation Code 47-70 [facility] Work Phone: Neutrophils/100 WBC (Bld) 66.0 % 47-70 [facility] Work Phone: [phone] Platelets 254 10*3/mm3 Invalid Interpretation Code 150-450 [facility] Work Phone: Platelets #/vol (Bld) 254 10*3/mm3 150-450 [facility] Phone: [phone] RBC #/vol (Bld) 4.88 10*6/uL 4.2-5.4 [facility] Work Phone: WBC #/vol (Bld) 8.6 10*3/uL 4.4-11.0 [facility] Work Phone: [phone] WBC (Leukocytes) 8.6 10*3/uL Invalid Interpretation Code 4.4-11.0 [facility] Work Phone: [phone] Absolute Neut 5.7 X10 3/UL Invalid Interpretation Code 2.0-7.7 [facility] Work Phone: [phone] Erythrocyte distribution width Ratio (RBC) 12.8 % 11.6-14.6 [facility] Work Phone: Lymphocytes 2.16 X10 3/UL Invalid Interpretation Code 0.83-4.51 [facility] Work Phone: Lymphocytes #/vol (Bld) 2.16 X10 3/UL 0.83-4.51 [facility] Work Phone: [phone] neutrophil count, blood 5.7 X10 3/UL Invalid Interpretation Code 2.0-7.7 [facility] Work Phone: Neutrophils #/vol (Bld) 5.7 X10 3/UL 2.0-7.7 [facility] Work Phone: [phone] Neutrophils Auto #/vol (Bld) 5.7 X10 3/UL Invalid Interpretation Code 2.0-7.7 [facility] Work Phone: [phone] Platelet mean volume Entitic volume (Bld) 7.9 fL 6.2-12.0 [facility] Work Phone: [phone] PMV by Dulce 7.9 fL Invalid Interpretation Code 6.2-12.0 [facility] Work Phone: [phone] RDW-CA 12.8 % Invalid Interpretation Code 11.6-14.6 [facility] Work Phone: [phone] Lab Report: Comprehensive [facility] Profilon 06-22-2016 Albumin/Globulin Ratio 1.1 {ratio} Invalid Interpretation Code 0.9-2.4 [facility] Work Phone: [phone] Anion gap 9 mmol/L Invalid Interpretation Code 5-15 [facility] Work Phone: [phone] Anion gap 4 molar conc 9 Invalid Interpretation Code 5-15 [facility] Work Phone: [phone] Anion gap molar conc 9 mmol/L 5-[address] [facility] Work Phone: [phone] BUN/Creatinine Ratio 14.7 RATIO Invalid Interpretation Code 10-20 [facility] Work Phone: [phone] Calcium 8.8 mg/dL Invalid Interpretation Code 8.5-10.1 [facility] Work Phone: [phone] Chloride 110 mmol/L High 98-107 [facility] Work Phone: [phone] CO2 28.0 mmol/L Invalid Interpretation Code 21.0-32.0 [facility] Work Phone: [phone] CO2 ppres (BldV) 28.0 mmol/L Invalid Interpretation Code 21.0-32.0 [facility] Work Phone: [phone] Creatinine 1.02 mg/dL Invalid Interpretation Code 0.55-1.02 [facility] Work Phone: [phone] eGFR (non-black) 56 mL/min/{1.73_m2} Low >60 [facility] Work Phone: [phone] eGFR (non-black) 68 mL/min/{1.73_m2} Invalid Interpretation Code >60 [facility] Work Phone: [phone] EST GFR - AA 68 mL/min Invalid Interpretation Code >60 [facility] Work Phone: [phone] Glucose 101 mg/dL Invalid Interpretation Code 70-110 [facility] Work Phone: [phone] Glucose mass conc 101 mg/dL Invalid Interpretation Code 70-110 [facility] Work Phone: [phone] Potassium 3.4 mmol/L Low 3.5-5.1 [facility] Work Phone: [phone] Sodium 147 mmol/L High 136-145 [facility] Work Phone: [phone] Urea nitrogen 15 mg/dL Invalid Interpretation Code 7-18 [facility] Work Phone: [phone] Lab Report: LDHon 06-22-2016 lactate dehydrogenase - serum 253 U/L High 84-246 [facility] Work Phone: [phone] LDH 253 U/L High 84-246 [facility] Work Phone: [phone] Lab Report: Uric Acidon 05-29 Urate 5.0 mg/dL Invalid Interpretation Code 2.6-6.0 [facility] Work Phone: [phone] Clinical Lists Update: Prelo verse writer 05-26-2016 Left ventricular Ejection fraction 50 % Invalid Interpretation Code [facility] Work Phone: [phone] Lab Report: CBC-Complete Blo od Cnt No Diffon 10-28-2015 Erythrocyte distribution width Auto Ratio (RBC) 45.1 fL High 35.1-43.9 [facility] Work Phone: [phone] Erythrocyte distribution width Ratio (RBC) 45.1 fL High 35.1-43.9 [facility] Work Phone: [phone] RDW SD 45.1 fL High 35.1-43.9 [facility] Work Phone: [phone] red blood cell distribution width, size density 45.1 fL High 35.1-43.9 [facility] Work Phone: [phone] Lab Report: Partial Thrombop last Timeon 10-28-2015 aPTT 40.4 s High 24.1-36.2 [facility] Work Phone: [phone] Lab Report: Prothrombin Time w/INRon 10-28-2015 Coagulation tissue factor induced in platelet poor plasma 24 s High 11.7-14.9 [facility] Work Phone: [phone] INR Coag RelTime (PPP) 2.2 {INR} Invalid Interpretation Code [facility] Work Phone: [phone] INR in blood by coagulation 2.2 {INR} Invalid Interpretation Code [facility] Work Phone: [phone] Replaced Document: Paco GALVAN Observationson 10-28-2015 EKG QRS axis 11 deg Invalid Interpretation Code [facility] Work Phone: [phone] electrocardiogram interpretation Sinus Bradycardia Low voltage in precordial leads. - Diffuse nonspecific T-abnormality. ABNORMAL Invalid Interpretation Code [facility] Work Phone: [phone] GE use only - for [employer] import when terms are not otherwise specified 415 ms Invalid Interpretation Code [facility] Work Phone: [phone] Interpretation Sinus Bradycardia Lo w voltage in precordial leads. - Diffuse nonspecific T-abnormality. ABNORMAL Invalid Interpretation Code [facility] Work Phone: [phone] P [place] 35 deg Invalid Interpretation Code [facility] Work Phone: [phone] P wave axis, electrocardiogram 35 deg Invalid Interpretation Code [facility] Work Phone: [phone] NC Interval 170 ms Invalid Interpretation Code [facility] Work Phone: [phone] NC interval, electrocardiogram 170 ms Invalid Interpretation Code [facility] Work Phone: [phone] Pulse (Heart Rate) 50 /min Invalid Interpretation Code [facility] Work Phone: [phone] QRS axis, electrocardiogram 11 deg Invalid Interpretation Code [facility] Work Phone: [phone] QRS Duration 100 ms Invalid Interpretation Code [facility] Work Phone: [phone] QRS duration, electrocardiogram 100 ms Invalid Interpretation Code [employer] [facility] Phone: [phone] QT Interval new path ms Invalid Interpretation Code [employer] [facility] Phone: [phone] QT interval, electrocardiogram new path ms Invalid Interpretation Code [employer] Phone: [phone] QTc Lopez 415 ms Invalid Interpretation Code [employer] Phone: [phone] T [place] 180 deg Invalid Interpretation Code [facility] Work Phone: [phone] T wave axis, electrocardiogram 180 deg Invalid Interpretation Code [employer] Phone: [phone] Office [facility] 08-27-2015 Colonoscopy (procedure) Colonoscopy (procedure) Invalid Interpretation Code [employer] Phone: [phone] Protein mass conc Colonoscopy (procedure) Invali d Interpretation Code [employer] Phone: [phone] [facility] 04-05-2015 Protein mass conc yes Invalid Interpretation Code [employer] Phone: [phone] Smoking cessation education (procedure) yes Invalid Interpretation Code [employer] Phone: [phone] [facility] 02-25-2015 General categories [interpretation] of Cervical or vaginal smear or scraping by Cyto stain Normal Invalid Interpretation Code [employer] Phone: [phone] Breast Mammogram screening Normal Bilateral Invalid Interpretation Code [employer] Phone: [phone] Lab Report: CBC W/Diff, Auto - EPLAB Onlyon 11-30-2014 Absolute Neut 3.3 X10 3/UL Invalid Interpretation Code 2.0-7.7 [employer] Phone: [phone] Absolute Neutrophil count 3.3 X10 3/UL Invalid Interpretation Code 2.0-7.7 [employer] Phone: [phone] Lab Report: LDHon 11-30-2014 Lactate dehydrogenase (LDH) 257 U/L High 87-241 [employer] Phone: [phone] External Other: Preferred Me thod of Contacton 09-07-2014 methcontact phone Invalid Interpretation Code [employer] Phone: [phone] Patient's prefered method of contact phone Invalid Interpretation Code [facility] Work Phone: Office Visiton 09-07-2014 cardiac risk group C Invalid Interpretation Code [facility] Work Phone: General cardiovascular disease 10Y risk [#] [place].Viviana'Flaquita N/A Invalid Interpretation Code [facility] Work Phone: Lab Report: T4on 02-27-2014 Thyroxine (T4) 6.6 ug/dL Normal 4.8-13.9 [facility] Work Phone: [phone] Lab Report: TSHon 02-27-2014 Thyroid stimulating hormone (TSH) 29.20 u[iU]/mL High 0.358-3.74 [facility] Work Phone: Replaced Document: Paco Love CG Observationson 10-13-2013 Pulse (Heart Rate) 428 ms Invalid Interpretation Code [facility] Work Phone: COVID-19 virus antigen assay SARS-CoV-2 (COVID-19) Ag IA.rapid Ql (Resp) [facility] Work Phone: Vital Signs Date Time Vital Sign Value Performing Clinician Faci lity 01-21-2025 09:03-0400 Body height 163.8 cm Miryam Tejeda MD Work Phone: [facility] 01-21-2025 09:03-0400 Body mass index (BMI) [Ratio] 26.87 kg/m2 Miryam Tejeda MD Work Phone: [facility] 01-21-2025 09:03-0400 Body weight 72.12 kg Miryam Tejeda MD Work Phone: [facility] 01-21-2025 09:03-0400 Diastolic blood pressure 76 mm[Hg] Miryam Tejeda MD Work Phone: [facility] 01-21-2025 09:03-0400 Heart rate 76 /min Miryam Tejeda MD Work Phone: [facility] 01-21-2025 09:03-0400 SaO2% (BldA) [Mass fraction] 94 % Miryam Tejeda MD Work Phone: [facility] 01-21-2025 09:03-0400 Systolic blood pressure 123 mm[Hg] Miryam Tejeda MD Work Phone: [facility] 01-05-2025 11:02-0400 Body height 163.8 cm Davida Rosa MD Work Phone: [facility] 01-05-2025 11:02-0400 Body mass index (BMI) [Ratio] 26.94 kg/m2 Davida Rosa MD Work Phone: [facility] 01-05-2025 11:02-0400 Body weight 72.3 kg Davida Rosa MD Work Phone: [facility] 01-05-2025 11:02-0400 Diastolic blood pressure 68 mm[Hg] Davida Rosa MD Work Phone: [facility] 01-05-2025 11:02-0400 Heart rate 71 /min Davida Rosa MD Work Phone: [facility] 01-05-2025 11:02-0400 SaO2% (BldA) [Mass fraction] 95 % Davida Rosa MD Work Phone: [facility] 01-05-2025 11:02-0400 Systolic blood pressure 108 mm[Hg] Davida Rosa MD Work Phone: [facility] 12-01-2024 20:23-0400 Body temperature 98.49 [degF] Krys Torres MD Work Phone: [facility] 12-01-2024 20:23-0400 Diastolic blood pressure 65 mm[Hg] Krys Torres MD Work Phone: [facility] 12-01-2024 20:23-0400 Heart rate 51 /min Krys Torres MD Work Phone: [facility] 12-01-2024 20:23-0400 Respiratory rate 19 /min Krys Torres MD Work Phone: [facility] 12-01-2024 20:23-0400 SaO2% (BldA) [Mass fraction] 83 % Krys Torres MD Work Phone: [facility] 12-01-2024 20:23-0400 Systolic blood pressure 103 mm[Hg] Krys Torres MD Work Phone: [facility] 12-01-2024 15:36-0400 Body height 163.8 cm Maggie Huggins MD Work Phone: [facility] 12-01-2024 15:36-0400 Body mass index (BMI) [Ratio] 28.86 kg/m2 Maggie Huggins MD Work Phone: [facility] 12-01-2024 15:36-0400 Body weight 77.47 kg Maggie Huggins MD Work Phone: [facility] 12-01-2024 15:36-0400 Diastolic blood pressure 60 mm[Hg] Maggie Huggins MD Work Phone: [facility] 12-01-2024 15:36-0400 Heart rate 79 /min Maggie Huggins MD Work Phone: [facility] 12-01-2024 15:36-0400 SaO2% (BldA) [Mass fraction] 95 % Maggie Huggins MD Work Phone: [facility] 12-01-2024 15:36-0400 Systolic blood pressure 92 mm[Hg] Maggie Huggins MD Work Phone: [facility] 11-24-2024 13:31-0400 Body temperature 96.49 [degF] Oh Aguirre MD Work Phone: [facility] 11-24-2024 13:31-0400 Diastolic blood pressure 51 mm[Hg] Oh Aguirre MD Work Phone: [facility] 11-24-2024 13:31-0400 Heart rate 76 /min Oh Aguirre MD Work Phone: [facility] [place] 11-24-2024 13:31-0400 Respiratory rate 16 /min Oh Aguirre MD Work Phone: [facility] 11-24-2024 13:31-0400 SaO2% (BldA) [Mass fraction] 97 % Oh Aguirre MD Work Phone: [facility] 11-24-2024 13:31-0400 Systolic blood pressure 86 mm[Hg] Oh Aguirre MD Work Phone: [facility] 11-24-2024 12:16-0400 Body height 162.6 cm Oh Aguirre MD Work Phone: [facility] 11-24-2024 12:16-0400 Body mass index (BMI) [Ratio] 29.52 kg/m2 Oh Aguirre MD Work Phone: [facility] 11-24-2024 12:16-0400 Body weight 78.02 kg Oh Aguirre MD Work Phone: [facility] 11-11-2024 10:36-0400 Body height 162.6 cm Maggie Huggins MD Work Phone: [facility] 11-11-2024 10:36-0400 Body mass index (BMI) [Ratio] 29.59 kg/m2 Maggie Huggins MD Work Phone: [facility] 11-11-2024 10:36-0400 Body weight 78.2 kg Maggie Huggins MD Work Phone: [facility] 11-11-2024 10:36-0400 Diastolic blood pressure 60 mm[Hg] Maggie Huggins MD Work Phone: [facility] 11-11-2024 10:36-0400 Heart rate 68 /min Maggie Huggins MD Work Phone: [facility] 11-11-2024 10:36-0400 SaO2% (BldA) [Mass fraction] 96 % Maggie Huggins MD Work Phone: [facility] 11-11-2024 10:36-0400 Systolic blood pressure 98 mm[Hg] Maggie Huggins MD Work Phone: [facility] 10-06-2024 17:18-0400 Body temperature 98.7 [degF] Dr. Samantha Reyes MD Work Phone: 2(788)898-637419 [place] [address] 10-06-2024 17:18-0400 Diastolic blood pressure 68 mm[Hg] Dr. Samantha Reyes MD Work Phone: 4(022)930-836319 [place] [address] 10-06-2024 17:18-0400 Heart rate 71 /min Dr. Samantha Reyes MD Work Phone: 1(623)735-887319 [place] [address] 10-06-2024 17:18-0400 Respiratory rate 20 /min Dr. Samantha Reyes MD Work Phone: 1(751)150-461819 [place] [address] 10-06-2024 17:18-0400 SaO2% (BldA) [Mass fraction] 94 % Dr. Samantha Reyes MD Work Phone: 2(681)731-536119 [place] [address] 10-06-2024 17:18-0400 Systolic blood pressure 120 mm[Hg] Dr. Samantha Reyes MD Work Phone: 5(097)458-631719 [place] [address] 10-06-2024 12:14-0400 Body mass index (BMI) [Ratio] 31.3 kg/m2 Dr. Samantha Reyes MD Work Phone: 2(939)279-008519 [place] [address] 10-06-2024 12:14-0400 Body weight 82.[address] Samantha Reyes MD Work Phone: 6(139)444-102219 [place] [address] 10-06-2024 12:10-0400 Body height 162.[address] Samantha Reyes MD Work Phone: 9(514)026-115219 [place] [address] 10-02-2024 07:31-0400 Body height 162.[address] Samantha Reyes MD Work Phone: 8(940)183-506619 [place] [address] 10-02-2024 07:31-0400 Body weight 82.[address] Samantha Reyes MD Work Phone: 9(979)987-537319 [place] [address] 10-01-2024 07:48-0400 Body mass index (BMI) [Ratio] 31.2 kg/m2 Dr. Samantha Reyes MD Work Phone: [facility] 09-15-2024 08:29-0400 Body weight 82.[address] Samantha Reyes MD Work Phone: 4(365)025-471619 [place] [address] 09-15-2024 08:22-0400 Body mass index (BMI) [Ratio] 31.2 kg/m2 Dr. Samantha Reyes MD Work Phone: 2(715)462-968119 [place] [address] 09-09-2024 08:40-0400 Body mass index (BMI) [Ratio] 31.2 kg/m2 Dr. Samantha Reyes MD Work Phone: 1(489)010-44[address] [place] [address] 09-09-2024 08:40-0400 Body weight 82.[address] Samantha Reyes MD Work Phone: 5(577)077-129019 [place] [address] 09-09-2024 08:40-0400 Diastolic blood pressure 75 mm[Hg] Dr. Samantha Reyes MD Work Phone: 1(235)957-720719 [place] [address] 09-09-2024 08:40-0400 Heart rate 67 /min Dr. Samantha Reyes MD Work Phone: 1(022)284-557119 [place] [address] 09-09-2024 08:40-0400 Respiratory rate 18 /min Dr. Samantha Reyes MD Work Phone: 1(264)347-918719 [place] [address] 09-09-2024 08:40-0400 Systolic blood pressure 115 mm[Hg] Dr. Samantha Reyes MD Work Phone: [facility] 05-17-2024 10:10-0500 Body mass index (BMI) [Ratio] 32.01 kg/m2 Davina Athy PA-C Work Phone: [facility] 05-17-2024 10:10-0500 Body temperature 97.3 [degF] Davina Athy PA-C Work Phone: [facility] 05-17-2024 10:10-0500 Body weight 84.6 kg Davina Athy PA-C Work Phone: [facility] 05-17-2024 10:10-0500 Diastolic blood pressure 60 mm[Hg] Davina Athy PA-C Work Phone: [facility] 05-17-2024 10:10-0500 Heart rate 71 /min Davina Athy PA-C Work Phone: [facility] 05-17-2024 10:10-0500 Respiratory rate 18 /min Davina Athy PA-C Work Phone: [facility] 05-17-2024 10:10-0500 SaO2% (BldA) [Mass fraction] 98 % Davina Athy PA-C Work Phone: [facility] 05-17-2024 10:10-0500 Systolic blood pressure 124 mm[Hg] Davina Athy PA-C Work Phone: [facility] 04-14-2024 13:23-0500 Body mass index (BMI) [Ratio] 32.62 kg/m2 Samantha Reyes MD Work Phone: [facility] 04-14-2024 13:23-0500 Body weight 86.2 kg Samantha Reyes MD Work Phone: [facility] 04-14-2024 13:23-0500 Diastolic blood pressure 62 mm[Hg] Samantha Reyes MD Work Phone: [facility] 04-14-2024 13:23-0500 Heart rate 88 /min Samantha Reyes MD Work Phone: [facility] 04-14-2024 13:23-0500 Respiratory rate 18 /min Samantha Reyes MD Work Phone: [facility] 04-14-2024 13:23-0500 Systolic blood pressure 108 mm[Hg] Samantha Reyes MD Work Phone: [facility] 10-11-2023 09:34-0400 Body mass index (BMI) [Ratio] 33.06 kg/m2 Samantha Reyes MD Work Phone: [facility] 10-11-2023 09:34-0400 Body weight 87.36 kg Samantha Reyes MD Work Phone: [facility] 10-11-2023 09:34-0400 Diastolic blood pressure 74 mm[Hg] Samantha Reyes MD Work Phone: [facility] 10-11-2023 09:34-0400 Heart rate 68 /min Samantha Reyes MD Work Phone: [facility] 10-11-2023 09:34-0400 Respiratory rate 16 /min Samantha Reyes MD Work Phone: [facility] 10-11-2023 09:34-0400 Systolic blood pressure 124 mm[Hg] Samantha Reyes MD Work Phone: [facility] 04-10-2023 15:04-0500 Body weight 90.63 kg Samantha Reyes MD Work Phone: [facility] 04-10-2023 15:04-0500 Diastolic blood pressure 70 mm[Hg] Samantha Reyes MD Work Phone: [facility] 04-10-2023 15:04-0500 Heart rate 60 /min Samantha Reyes MD Work Phone: [facility] 04-10-2023 15:04-0500 Respiratory rate 18 /min Samantha Reyes MD Work Phone: [facility] 04-10-2023 15:04-0500 Systolic blood pressure 114 mm[Hg] Samantha Reyes MD Work Phone: [facility] 04-08-2023 23:48-0500 Diastolic blood pressure 60 mm[Hg] Dr. Samantha Reyes Work Phone: [facility] 04-08-2023 23:48-0500 Heart rate 57 /min Dr. Samantha Reyes Work Phone: [facility] 04-08-2023 23:48-0500 Respiratory rate 20 /min Dr. Samantha Reyes Work Phone: [facility] 04-08-2023 23:48-0500 SaO2% (BldA) [Mass fraction] 95 % Dr. Samantha Reyes Work Phone: 2(299)288-584120 [address] 04-08-2023 23:48-0500 Systolic blood pressure 142 mm[Hg] Dr. Samantha Reyes Work Phone: 6(125)821-756619 [place] [address] 04-08-2023 20:29-0500 Body height 162.[address] Samantha Reyes Work Phone: 6(219)956-110719 [place] [address] 04-08-2023 20:29-0500 Body mass index (BMI) [Ratio] 34.3 kg/m2 Dr. Samantha Reyes Work Phone: 5(709)973-025719 [place] [address] 04-08-2023 20:29-0500 Body temperature 97.9 [degF] Dr. Samantha Reyes Work Phone: 7(527)448-515619 [place] [address] 04-08-2023 20:29-0500 Body weight 90.[address] Samantha Reyes Work Phone: 7(285)290-616519 [place] [address] 03-21-2023 14:17-0400 Diastolic blood pressure 56 mm[Hg] Dr. Samantha Reyes Work Phone: 3(573)391-231519 [place] [address] 03-21-2023 14:17-0400 Heart rate 60 /min Dr. Samantha Reyes Work Phone: 5(070)397-684519 [place] [address] 03-21-2023 14:17-0400 Respiratory rate 16 /min Dr. Samantha Reyes Work Phone: 3(636)283-344119 [place] [address] 03-21-2023 14:17-0400 SaO2% (BldA) [Mass fraction] 98 % Dr. Samantha Reyes Work Phone: 8(583)344-868419 [place] [address] 03-21-2023 14:17-0400 Systolic blood pressure 99 mm[Hg] Dr. Samantha Reyes Work Phone: 9(449)682-139519 [place] [address] 03-21-2023 13:19-0400 Inhaled oxygen flow rate 3 L/min Dr. Samantha Reyes Work Phone: 8(291)336-169419 [place] [address] 03-21-2023 09:38-0400 Body mass index (BMI) [Ratio] 34 kg/m2 Dr. Samantha Reyes Work Phone: 1(980)909-937219 [place] [address] 03-21-2023 09:38-0400 Body weight [address] Samantha Reyes Work Phone: [facility] 03-21-2023 09:26-0400 Body height 162.[address] Samantha Reyes Work Phone: [facility] 03-21-2023 09:26-0400 Body temperature 97 [degF] Dr. Samantha Reyes Work Phone: [facility] 02-09-2023 09:01-0400 Body temperature 96.91 [degF] Derick Atkins MD Work Phone: [facility] 02-09-2023 09:01-0400 Body weight 91.17 kg Derick Atkins MD Work Phone: [facility] 02-09-2023 09:01-0400 Diastolic blood pressure 78 mm[Hg] Derick Atkins MD Work Phone: [facility] 02-09-2023 09:01-0400 Heart rate 86 /min Derick Atkins MD Work Phone: [facility] 02-09-2023 09:01-0400 Respiratory rate 16 /min Derick Atkins MD Work Phone: [facility] 02-09-2023 09:01-0400 SaO2% (BldA) [Mass fraction] 96 % Derick Atkins MD Work Phone: [facility] 02-09-2023 09:01-0400 Systolic blood pressure 132 mm[Hg] Derick Atkins MD Work Phone: [facility] 02-01-2023 13:32-0400 Body height 162.[address] Samantha Reyes Work Phone: [facility] 02-01-2023 13:32-0400 Body mass index (BMI) [Ratio] 34.7 kg/m2 Dr. Samantha Reyes Work Phone: [facility] 02-01-2023 13:32-0400 Body weight 91.[address] Samantha Reyes Work Phone: [facility] 02-01-2023 13:32-0400 Diastolic blood pressure 66 mm[Hg] Dr. Samantha Reyes Work Phone: [facility] 02-01-2023 13:32-0400 Heart rate 70 /min Dr. Samantha Reyes Work Phone: [facility] 02-01-2023 13:32-0400 Respiratory rate 18 /min Dr. Samantha Reyes Work Phone: [facility] 02-01-2023 13:32-0400 Systolic blood pressure 100 mm[Hg] Dr. Samantha Reyes Work Phone: [facility] 08-25-2022 09:33-0400 Body temperature 98.6 [degF] Davina Athy PA-C Work Phone: [facility] 08-25-2022 09:33-0400 Body weight 94.71 kg Davina Athy PA-C Work Phone: [facility] 08-25-2022 09:33-0400 Diastolic blood pressure 74 mm[Hg] Davina Athy PA-C Work Phone: [facility] 08-25-2022 09:33-0400 Heart rate 78 /min Davina Athy PA-C Work Phone: [facility] 08-25-2022 09:33-0400 Respiratory rate 16 /min Davina Athy PA-C Work Phone: [facility] [facility] 08-25-2022 09:33-0400 SaO2% (BldA) [Mass fraction] 96 % Davina Athy PA-C Work Phone: [facility] 08-25-2022 09:33-0400 Systolic blood pressure 126 mm[Hg] Davina Athy PA-C Work Phone: [facility] 08-21-2022 13:05-0400 Body height 162.6 cm La Nena Toscano APRN.CNP Work Phone (unformatted): [phone] [facility] 08-21-2022 13:05-0400 Body weight 93.89 kg La Nena Barley [employer] C[employer]ER[employer] Work Phone (unformatted): [phone] [facility] 08-21-2022 13:05-0400 Diastolic blood pressure 70 mm[Hg] La Nena Barley [employer] C[employer]ER[employer] Work Phone (unformatted): [phone] [facility] 08-21-2022 13:05-0400 Heart rate 61 /min La Nena Barley [employer] C[employer]ER[employer] Work Phone (unformatted): [phone] [facility] 08-21-2022 13:05-0400 Respiratory rate 16 /min La Nena Barley C[employer] C[employer]ER[employer] Work Phone (unformatted): [phone] [facility] 08-21-2022 13:05-0400 SaO2% (BldA) [Mass fraction] 98 % La Nena Barley C[employer] CATCHER.[employer] Work Phone (unformatted): [phone] [facility] 08-21-2022 13:05-0400 Systolic blood pressure 122 mm[Hg] La Nena Barley C[employer]ON CATCHER.[employer] Work Phone (unformatted): [phone] [facility] 08-11-2022 10:03-0400 Body height 162.[address] Samantha Reyes Work Phone: [facility] 08-11-2022 10:03-0400 Body mass index (BMI) [Ratio] 36 kg/m2 Dr. Samantha Reyes Work Phone: [facility] 08-11-2022 10:03-0400 Body weight 95.[address] Samantha Reyes Work Phone: [facility] 08-11-2022 10:03-0400 Diastolic blood pressure 76 mm[Hg] Dr. Samantha Reyes Work Phone: [facility] 08-11-2022 10:03-0400 Heart rate 56 /min Dr. Samantha Reyes Work Phone: [facility] 08-11-2022 10:03-0400 Respiratory rate 18 /min Dr. Samantha Reyes Work Phone: 6(647)086-952064 [place] [address] 08-11-2022 10:03-0400 SaO2% (BldA) [Mass fraction] 95 % Dr. Samantha Reyes Work Phone: 2(459)595-339819 [place] [address] 08-11-2022 10:03-0400 Systolic blood pressure 119 mm[Hg] Dr. Samantha Reyes Work Phone: 8(409)660-211119 [place] [address] 07-11-2022 10:58-0500 Body height 162.[address] Samantha Reyes Work Phone: 4(483)274-491319 [place] [address] 07-11-2022 10:58-0500 Body weight 95.[address] Samantha Reyes Work Phone: 9(270)228-600619 [place] [address] 07-10-2022 10:10-0500 Body mass index (BMI) [Ratio] 36.2 kg/m2 Dr. Samantha Reyes Work Phone: 8(512)918-195919 [place] [address] 07-04-2022 13:27-0500 Body mass index (BMI) [Ratio] 36.4 kg/m2 Dr. Samantha Reyes Work Phone: 3(583)048-760519 [place] [address] 07-04-2022 13:27-0500 Body temperature 97 [degF] Dr. Samantha Reyes Work Phone: 8(128)316-836319 [place] [address] 07-04-2022 13:27-0500 Body weight 96.[address] Samantha Reyes Work Phone: 0(862)798-150819 [place] [address] 07-04-2022 13:27-0500 Diastolic blood pressure 86 mm[Hg] Dr. Samantha Reyes Work Phone: 9(970)046-231319 [place] [address] 07-04-2022 13:27-0500 Heart rate 80 /min Dr. Samantha Reyes Work Phone: 4(143)787-065419 [place] [address] 07-04-2022 13:27-0500 Respiratory rate 18 /min Dr. Samantha Reyes Work Phone: 9(553)663-907319 [place] [address] 07-04-2022 13:27-0500 SaO2% (BldA) [Mass fraction] 98 % Dr. Samantha Reyes Work Phone: [facility] 07-04-2022 13:27-0500 Systolic blood pressure 141 mm[Hg] Dr. Samantha Reyes Work Phone: 4(864)490-704020 [address] 06-13-2022 14:05-0500 Body height 162.[address] Samantha Reyes Work Phone: 2(048)663-810520 [address] 06-13-2022 14:05-0500 Body mass index (BMI) [Ratio] 36.2 kg/m2 Dr. Samantha Reyes Work Phone: 3(413)633-424620 [address] 06-13-2022 14:05-0500 Body weight 95.[address] Samantha Reyes Work Phone: 1(925)982-674919 [place] [address] 06-13-2022 14:05-0500 Diastolic blood pressure 72 mm[Hg] Dr. Samantha Reyes Work Phone: 4(157)501-939719 [place] [address] 06-13-2022 14:05-0500 Heart rate 81 /min Dr. Samantha Reyes Work Phone: 6(049)702-016620 [address] 06-13-2022 14:05-0500 Respiratory rate 18 /min Dr. Samantha Reyes Work Phone: 6(161)328-934819 [place] [address] 06-13-2022 14:05-0500 SaO2% (BldA) [Mass fraction] 98 % Dr. Samantha Reyes Work Phone: 7(932)791-964564 [place] [address] 06-13-2022 14:05-0500 Systolic blood pressure 122 mm[Hg] Dr. Samantha Reyes Work Phone: [facility] 05-15-2022 15:06-0500 Body height 162.[address] Samantha Reyes Work Phone: [facility] Work Phone: 05-15-2022 15:06-0500 Body mass index (BMI) [Ratio] 35.9 kg/m2 Dr. Samantha Reyes Work Phone: 0(695)577-261764 [place] [address] 05-15-2022 15:06-0500 Body weight 94.[address] Samantha Reyes Work Phone: [facility] 05-15-2022 15:06-0500 Diastolic blood pressure 86 mm[Hg] Dr. Samantha Reyes Work Phone: 4(460)163-996664 [place] [address] 05-15-2022 15:06-0500 Heart rate 95 /min Dr. Samantha Reyes Work Phone: 8(630)249-719919 [place] [address] 05-15-2022 15:06-0500 Respiratory rate 18 /min Dr. Samantha Reyes Work Phone: 7(239)325-406920 [address] 05-15-2022 15:06-0500 Systolic blood pressure 140 mm[Hg] Dr. Samantha Reyes Work Phone: 9(942)333-947420 [address] 03-20-2022 07:53-0400 Body height 162.[address] Samanhta Reyes Work Phone: 0(129)185-265720 [address] Work Phone: 03-20-2022 07:53-0400 Body weight 96.[address] Samantha Reyes Work Phone: 3(687)622-821320 [address] 03-20-2022 07:48-0400 Body mass index (BMI) [Ratio] 36.3 kg/m2 Dr. Samantha Reyes Work Phone: 9(384)137-434120 [address] 03-13-2022 08:32-0400 Body mass index (BMI) [Ratio] 36.3 kg/m2 Dr. Samantha Reyes Work Phone: 7(700)384-564619 [place] [address] 03-13-2022 08:25-0400 Body weight 96.[address] Samantha Reyes Work Phone: 6(238)171-475420 [address] 03-13-2022 08:25-0400 Diastolic blood pressure 82 mm[Hg] Dr. Samantha Reyes Work Phone: 7(846)304-057620 [address] 03-13-2022 08:25-0400 Heart rate 76 /min Dr. Samantha Reyes Work Phone: 8(731)523-502620 [address] 03-13-2022 08:25-0400 Respiratory rate 20 /min Dr. Samantha Reyes Work Phone: [facility] 03-13-2022 08:25-0400 SaO2% (BldA) [Mass fraction] 98 % Dr. Samantha Reyes Work Phone: [facility] 03-13-2022 08:25-0400 Systolic blood pressure 134 mm[Hg] Dr. Samantha Reyes Work Phone: [facility] 02-21-2022 11:58-0400 Body temperature 98.4 [degF] Avtar Pendlebury C[employer] CATCHER[employer] Work Phone: [facility] 02-21-2022 11:58-0400 Body weight 95.71 kg Avtar Pendlebury C[employer]ON CATCHER[employer] Work Phone: [facility] 02-21-2022 11:58-0400 Diastolic blood pressure 68 mm[Hg] Avtar Pendlebury C[employer]ON CATCHER.[employer] Work Phone: [facility] 02-21-2022 11:58-0400 Heart rate 84 /min Avtar Pendlebury C[employer]ON CATCHER.[employer] Work Phone: [facility] 02-21-2022 11:58-0400 Respiratory rate 18 /min Avtar Pendlebury C[employer]ON CATCHER.[employer] Work Phone: [facility] 02-21-2022 11:58-0400 SaO2% (BldA) [Mass fraction] 97 % Avtar Pendlebury C[employer]ON CATCHER.[employer] Work Phone: [facility] 02-21-2022 11:58-0400 Systolic blood pressure 120 mm[Hg] Avtar Pendlebury C[employer]ON CATCHER.[employer] Work Phone: [facility] 02-09-2022 08:52-0400 Body height 162.[address] Samantha Reyes Work Phone: [facility] Work Phone: 02-09-2022 08:52-0400 Body mass index (BMI) [Ratio] 36.2 kg/m2 Dr. Samantha Reyes Work Phone: [facility] Work Phone: 02-09-2022 08:52-0400 Body weight 95.[address] Samantha Reyes Work Phone: [facility] Work Phone: 02-09-2022 08:52-0400 Diastolic blood pressure 70 mm[Hg] Dr. Samantha Reyes Work Phone: [facility] Work Phone: 02-09-2022 08:52-0400 Heart rate 82 /min Dr. Samantha Reyes Work Phone: [facility] Work Phone: 02-09-2022 08:52-0400 Respiratory rate 18 /min Dr. Samantha Reyes Work Phone: [facility] Work Phone: 02-09-2022 08:52-0400 Systolic blood pressure 126 mm[Hg] Dr. Samantha Reyes Work Phone: [facility] Work Phone: 02-03-2022 14:15-0400 Diastolic blood pressure 57 mm[Hg] Dr. Samantha Reyes Work Phone: [facility] Work Phone: 02-03-2022 14:15-0400 Heart rate 87 /min Dr. Samantha Reyes Work Phone: [facility] Work Phone: 02-03-2022 14:15-0400 Respiratory rate 16 /min Dr. Samantha Reyes Work Phone: [facility] Work Phone: 02-03-2022 14:15-0400 SaO2% (BldA) [Mass fraction] 95 % Dr. Samantha Reyes Work Phone: [facility] Work Phone: 02-03-2022 14:15-0400 Systolic blood pressure 128 mm[Hg] Dr. Samantha Reyes Work Phone: [facility] Work Phone: 02-03-2022 11:06-0400 Body height 162.[address] Samantha Reyes Work Phone: [facility] Work Phone: 02-03-2022 11:06-0400 Body mass index (BMI) [Ratio] 36.6 kg/m2 Dr. Samantha Reyes Work Phone: [facility] Work Phone: 02-03-2022 11:06-0400 Body temperature 97.9 [degF] Dr. Samantha Reyes Work Phone: [facility] Work Phone: 02-03-2022 11:06-0400 Body weight 96.[address] Samantha Reyes Work Phone: [facility] Work Phone: 02-01-2022 11:10-0400 Body temperature 97.11 [degF] Derick Atkins MD Work Phone: [facility] 02-01-2022 11:10-0400 Body weight 96.62 kg Derick Atkins MD Work Phone: [facility] 02-01-2022 11:10-0400 Diastolic blood pressure 72 mm[Hg] Derick Atkins MD Work Phone: [facility] 02-01-2022 11:10-0400 Heart rate 72 /min Derick Atkins MD Work Phone: [facility] 02-01-2022 11:10-0400 Respiratory rate 16 /min Derick Atkins MD Work Phone: [facility] 02-01-2022 11:10-0400 SaO2% (BldA) [Mass fraction] 97 % Derick Atkins MD Work Phone: [facility] 02-01-2022 11:10-0400 Systolic blood pressure 112 mm[Hg] Derick Atkins MD Work Phone: [facility] 01-19-2022 13:17-0400 Body temperature 97.59 [degF] Sylwia Mcleod APRN.[employer] Work Phone: [facility] 01-19-2022 13:17-0400 Body weight 95.07 kg Sylwia Mcleod APRN.[employer] Work Phone: [facility] 01-19-2022 13:17-0400 Diastolic blood pressure 78 mm[Hg] Sylwia Mcleod APRN.[employer] Work Phone: [facility] 01-19-2022 13:17-0400 Heart rate 68 /min Sylwia Mcleod APRN.[employer] Work Phone: [facility] 01-19-2022 13:17-0400 Respiratory rate 18 /min Sylwia Mcleod APRN.[employer] Work Phone: [facility] 01-19-2022 13:17-0400 SaO2% (BldA) [Mass fraction] 97 % Sylwia Mcleod APRN.[employer] Work Phone: [facility] 01-19-2022 13:17-0400 Systolic blood pressure 126 mm[Hg] Sylwia Mcleod APRN.[employer] Work Phone: [facility] 01-04-2022 11:02-0400 Body height 162.[address] Samantha Reyes Work Phone: [facility] Work Phone: 01-04-2022 11:02-0400 Body mass index (BMI) [Ratio] 36.2 kg/m2 Dr. Samantha Reyes Work Phone: [facility] Work Phone: 01-04-2022 11:02-0400 Body weight 95.[address] Samantha Reyes Work Phone: [facility] Work Phone: 01-04-2022 11:02-0400 Diastolic blood pressure 81 mm[Hg] Dr. Samantha Reyes Work Phone: [facility] Work Phone: 01-04-2022 11:02-0400 Heart rate 53 /min Dr. Samantha Reyes Work Phone: [facility] Work Phone: 01-04-2022 11:02-0400 Respiratory rate 18 /min Dr. Samantha Reyes Work Phone: [facility] Work Phone: 01-04-2022 11:02-0400 SaO2% (BldA) [Mass fraction] 96 % Dr. Samantha Reyes Work Phone: [facility] Work Phone: 01-04-2022 11:02-0400 Systolic blood pressure 132 mm[Hg] Dr. Samantha Reyes Work Phone: [facility] Work Phone: 01-02-2022 09:00-0400 Body weight 95.98 kg Samantha Reyes MD Work Phone: [facility] 01-02-2022 09:00-0400 Diastolic blood pressure 70 mm[Hg] Samantha Reyes MD Work Phone: [facility] 01-02-2022 09:00-0400 Heart rate 72 /min Samantha Reyes MD Work Phone: [facility] 01-02-2022 09:00-0400 Respiratory rate 16 /min Samantha Reyes MD Work Phone: [facility] 01-02-2022 09:00-0400 Systolic blood pressure 122 mm[Hg] Samantha Reyes MD Work Phone: [facility] 11-21-2021 11:15-0400 Body temperature 97.3 [degF] Odessa Sanchez APRN.[employer] Work Phone: [facility] 11-21-2021 11:15-0400 Body weight 96.71 kg Odessa Sanchez APRN.[employer] Work Phone: [facility] 11-21-2021 11:15-0400 Diastolic blood pressure 78 mm[Hg] Odessa Praisler-Wood C[employer] CATCHER.[employer] Work Phone: [facility] 11-21-2021 11:15-0400 Heart rate 78 /min Odessa Praisler-Wood C[employer]ON CATCHER.[employer] Work Phone: [facility] 11-21-2021 11:15-0400 Respiratory rate 21 /min Odessa Praisler-Wood C[employer] CATCHER.[employer] Work Phone: [facility] 11-21-2021 11:15-0400 SaO2% (BldA) [Mass fraction] 98 % Odessa Praisler-Wood C[employer] CATCHER.[employer] Work Phone: [facility] 11-21-2021 11:15-0400 Systolic blood pressure 118 mm[Hg] Odessa Praisler-Wood CARTON CATCHER.[facility] Work Phone: [facility] 11-11-2021 02:09-0400 Diastolic blood pressure 71 mm[Hg] Dr. Samantha Reyes Work Phone: [facility] Work Phone: 11-11-2021 02:09-0400 Heart rate 71 /min Dr. Samantha Reyes Work Phone: [facility] Work Phone: 11-11-2021 02:09-0400 Respiratory rate 16 /min Dr. Samantha Reyes Work Phone: [facility] Work Phone: 11-11-2021 02:09-0400 SaO2% (BldA) [Mass fraction] 97 % Dr. Samantha Reyes Work Phone: [facility] Work Phone: 11-11-2021 02:09-0400 Systolic blood pressure 117 mm[Hg] Dr. Samantha Reyes Work Phone: [facility] Work Phone: 11-11-2021 01:13-0400 Inhaled oxygen flow rate 2 L/min Dr. Samantha Reyes Work Phone: [facility] Work Phone: 11-10-2021 22:54-0400 Body mass index (BMI) [Ratio] 37.5 kg/m2 Dr. Samantha eRyes Work Phone: [facility] Work Phone: 11-10-2021 22:54-0400 Body temperature 98.5 [degF] Dr. Samantha Reyes Work Phone: [facility] Work Phone: 11-10-2021 22:54-0400 Body weight 99.[address] Samantha Reyes Work Phone: [facility] Work Phone: 10-17-2021 16:31-0400 Body weight 98.07 kg Samantha Reyes MD Work Phone: [facility] 10-17-2021 16:31-0400 Diastolic blood pressure 78 mm[Hg] Samantha Reyes MD Work Phone: [facility] 10-17-2021 16:31-0400 Heart rate 88 /min Samantha Reyes MD Work Phone: [facility] 10-17-2021 16:31-0400 Respiratory rate 20 /min Samantha Reyes MD Work Phone: [facility] 10-17-2021 16:31-0400 SaO2% (BldA) [Mass fraction] 95 % Samantha Reyes MD Work Phone: [facility] 10-17-2021 16:31-0400 Systolic blood pressure 118 mm[Hg] Samantha Reyes MD Work Phone: [facility] 10-04-2021 10:48-0400 Body mass index (BMI) [Ratio] 37.4 kg/m2 Dr. Samantha Reyes Work Phone: [facility] Work Phone: 10-04-2021 10:48-0400 Body weight 98.[address] Samantha Reyes Work Phone: [facility] Work Phone: 10-04-2021 10:48-0400 Diastolic blood pressure 75 mm[Hg] Dr. Samantha Reyes Work Phone: [facility] Work Phone: 10-04-2021 10:48-0400 Heart rate 91 /min Dr. Samantha Reyes Work Phone: [facility] Work Phone: 10-04-2021 10:48-0400 Respiratory rate 24 /min Dr. Samantha Reyes Work Phone: [facility] Work Phone: 10-04-2021 10:48-0400 Systolic blood pressure 137 mm[Hg] Dr. Samantha Reyes Work Phone: [facility] Work Phone: 10-04-2021 10:48-0400 Body height 162.[address] Samantha Reyes Work Phone: [facility] Work Phone: 10-04-2021 10:48-0400 Body mass index (BMI) [Ratio] 37.4 kg/m2 Dr. Samantha Reyes Work Phone: [facility] Work Phone: 10-04-2021 10:48-0400 Body weight 98.[address] Samantha Reyes Work Phone: [facility] Work Phone: 10-04-2021 10:48-0400 Diastolic blood pressure 75 mm[Hg] Dr. Samantha Reyes Work Phone: [facility] Work Phone: 10-04-2021 10:48-0400 Heart rate 91 /min Dr. Samantha Reyes Work Phone: [facility] Work Phone: 10-04-2021 10:48-0400 Respiratory rate 24 /min Dr. Samantha Reyes Work Phone: [facility] Work Phone: 10-04-2021 10:48-0400 Systolic blood pressure 137 mm[Hg] Dr. Samantha Reyes Work Phone: [facility] Work Phone: 09-09-2021 10:28-0400 Body temperature 97 [degF] Davina Athy PA-C Work Phone: [facility] 09-09-2021 10:28-0400 Body weight 98.7 kg Davina Athy PA-C Work Phone: [facility] 09-09-2021 10:28-0400 Diastolic blood pressure 102 mm[Hg] Davina Athy PA-C Work Phone: [facility] 09-09-2021 10:28-0400 Heart rate 89 /min Davina Athy PA-C Work Phone: [facility] 09-09-2021 10:28-0400 Respiratory rate 26 /min Davina Athy PA-C Work Phone: [facility] 09-09-2021 10:28-0400 SaO2% (BldA) [Mass fraction] 94 % Davina Athy PA-C Work Phone: [facility] 09-09-2021 10:28-0400 Systolic blood pressure 156 mm[Hg] Davina Athy PA-C Work Phone: [facility] 07-07-2021 10:23-0500 Body height 162.[address] Samantha Reyes Work Phone: [facility] Work Phone: 07-07-2021 10:23-0500 Body mass index (BMI) [Ratio] 35.2 kg/m2 Dr. Samantha Reyes Work Phone: [facility] Work Phone: 07-07-2021 10:23-0500 Body temperature 97 [degF] Dr. Samantha Reyes Work Phone: [facility] Work Phone: 07-07-2021 10:23-0500 Body weight 93.[address] Samantha Reyes Work Phone: [facility] Work Phone: 07-07-2021 10:23-0500 Diastolic blood pressure 80 mm[Hg] Dr. Samantha Reyes Work Phone: [facility] Work Phone: 07-07-2021 10:23-0500 Heart rate 80 /min Dr. Samantah Reyes Work Phone: [facility] Work Phone: 07-07-2021 10:23-0500 Respiratory rate 16 /min Dr. Samantha Reyes Work Phone: [facility] Work Phone: 07-07-2021 10:23-0500 SaO2% (BldA) [Mass fraction] 97 % Dr. Samantha Reyes Work Phone: [facility] Work Phone: 07-07-2021 10:23-0500 Systolic blood pressure 132 mm[Hg] Dr. Samantha Reyes Work Phone: [facility] Work Phone: 07-08-2020 11:58-0500 Body temperature 97.2 [degF] Dr. Samantha Reyes Work Phone: [facility] Work Phone: 07-08-2020 11:58-0500 Body weight 103.[address] Samantha Reyes Work Phone: [facility] Work Phone: 07-08-2020 11:58-0500 Diastolic blood pressure 83 mm[Hg] Dr. Samantha Reyes Work Phone: [facility] Work Phone: 07-08-2020 11:58-0500 Heart rate 56 /min Dr. Samantha Reyes Work Phone: [facility] Work Phone: 07-08-2020 11:58-0500 Respiratory rate 14 /min Dr. Samantha Reyes Work Phone: [facility] Work Phone: 07-08-2020 11:58-0500 SaO2% (BldA) [Mass fraction] 98 % Dr. Samantha Reyes Work Phone: [facility] Work Phone: 07-08-2020 11:58-0500 Systolic blood pressure 140 mm[Hg] Dr. Samantha Reyes Work Phone: [facility] Work Phone: 07-07-2019 11:49-0500 Body mass index (BMI) [Ratio] 36.5 kg/m2 Dr. Samantha Reyes Work Phone: [facility] Work Phone: 01-11-2017 12:40-0400 BMI (Body Mass Index) 39.99 kg/m2 [facility] Work Phone: 01-11-2017 12:40-0400 BP Diastolic 60 mm[Hg] [facility] Work Phone: 01-11-2017 12:40-0400 BP Systolic 124 mm[Hg] [facility] Work Phone: 01-11-2017 12:40-0400 Height 162.56 cm [facility] Work Phone: 01-11-2017 12:40-0400 Pulse (Heart Rate) 60 /min [facility] Work Phone: 01-11-2017 12:40-0400 Respiratory Rate 18 /min [facility] Work Phone: 01-11-2017 12:40-0400 Weight 105.69 kg Renate Issa [facility] Work Phone: 07-06-2016 14:54-0500 BMI [...] 06-26-2016 12:50-0500 Pulse Oximetry 96 % [facility] Work Phone: 06-26-2016 12:50-0500 Weight 109.09 kg [facility] Work Phone: 10-28-2015 11:40-0400 Heart rate 50 /min [facility] Work Phone: 10-13-2013 15:24-0400 Heart rate 428 ms [facility] Work Phone: Encounters Encounter Date Encounter Type Care Provider Facility Start: 01-23-2025 End: 01-27-2025 Follow-up encounter Miryam Tejeda MD Work Phone: [facility] Comment on above: Echocardiogram limit ed Start: 01-22-2025 End: 01-22-2025 ambulatory [facility] Start: 01-21-2025 End: 01-21-2025 Office outpatient new 60 minutes Davida Rosa MD Work Phone: [facility] Comment on above: Abnormal EKG (Primar y Dx); Persistent atrial fibrillation (HCC) Start: 01-21-2025 End: 01-21-2025 ambulatory DAVIDA BRIANA [facility] Start: 01-21-2025 ambulatory MIRYAM TEJEDA [facility] Start: 01-15-2025 End: 01-15-2025 Orders Only Miryam Tejeda MD Work Phone: [facility] Comment on above: Persistent atrial fi brillation (HCC) (Primary Dx) Start: 01-05-2025 End: 01-05-2025 Office outpatient new 45 minutes Provider Not In System [facility] Comment on above: Persistent atrial fi brillation (HCC) (Primary Dx); Palpitation; Systolic heart failure, chronic (HCC); 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 Start: 01-05-2025 End: 01-05-2025 ambulatory DAVIDA BRIANA TIEN [facility] Start: 12-10-2024 End: 12-10-2024 Chart abstracting Ines Javed MA [facility] Start: 12-10-2024 ambulatory INES JAVED [facility] Ambulatory Start: 12-08-2024 End: 12-08-2024 Transcribe Orders Maggie Huggins MD Work Phone: [facility] Comment on above: Palpitation (Primary Dx) Start: 12-03-2024 End: 12-05-2024 Telephone encounter Maggie Huggins MD Work Phone: [facility] Comment on above: Other (Transfer of c are) handicap plactrista river ewal rx Start: 12-01-2024 End: 12-01-2024 Evaluation and management of inpatient Krys Torres MD Work Phone: [facility] EMERGENCY DEPT Comment on above: Atrial fibrillation, unspecified type (HCC) (Primary Dx); Hyponatremia Start: 12-01-2024 End: 12-01-2024 Emergency department patient visit [facility] Start: 12-01-2024 End: 12-01-2024 Subsequent hospital visit by physician [facility] Non-Invasive Cardiology Start: 12-01-2024 End: 12-01-2024 Office outpatient visit 25 minutes Maggie Huggins MD Work Phone: [facility] Comment on above: Persistent atrial fi brillation (HCC) (Primary Dx); Acute on chronic systolic heart failure (HCC); Atrial flutter, unspecified type (HCC); Chronic HFrEF (heart failure with reduced ejection fraction) (HCC); Essential hypertension; 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; S/P CABG (coronary artery bypass graft) Start: 12-01-2024 End: 12-01-2024 ambulatory MAGGIE HUGGINS [facility] Start: 12-01-2024 End: 12-01-2024 Telephone encounter Maggie Huggins MD Work Phone: [facility] Start: 11-28-2024 End: 11-28-2024 ambulatory Catie Cedillo RN [facility] Clinical Communication Start: 11-28-2024 End: 11-28-2024 Patient encounter procedure Catie Cedillo RN [facility] Clinical Communication Start: 11-28-2024 End: 11-29-2024 Telephone encounter Rakesh Jackson MD Work Phone: [facility] Start: 11-24-2024 End: 11-24-2024 Subsequent hospital visit by physician [facility] Non-Invasive Cardiology Comment on above: Arrived Start: 11-24-2024 End: 11-24-2024 ambulatory [facility] Start: 11-24-2024 End: 11-24-2024 Subsequent hospital visit by physician Oh Aguirre MD Work Phone: [facility] Cath/EP Lab Comment on above: Typical atrial flutt er (HCC) Start: 11-24-2024 End: 11-24-2024 ambulatory [facility] Start: 11-19-2024 End: 11-19-2024 ambulatory [facility] Start: 11-17-2024 End: 11-17-2024 Telephone encounter Maggie Huggins MD Work Phone: [facility] Comment on above: Labs Only (Labs comp leted) Start: 11-17-2024 End: 11-17-[address] Samantha Reyes MD Work Phone: [facility] Work Phone: Start: 11-17-2024 End: 11-17-[address] Samantha Reyes MD Work Phone: -Laboratory Work Phone: Start: 11-17-2024 End: 11-17-2024 ambulatory [facility] Facility:[facility] Start: 11-11-2024 End: 11-19-2024 Telephone encounter Maggie Huggins MD Work Phone: [facility] Comment on above: Procedure Start: 11-11-2024 End: 11-11-2024 Office outpatient new 60 minutes Maggie Huggins MD Work Phone: [facility] Comment on above: Acute on chronic sys tolic heart failure (HCC) (Primary Dx); Left ventricular hypertrophy; Typical atrial flutter (HCC); Essential hypertension; 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; Paroxysmal atrial fibrillation (HCC); Chronic diastolic heart failure (HCC); S/P CABG (coronary artery bypass graft); Mixed hyperlipidemia Start: 11-11-2024 End: 11-11-2024 ambulatory [facility] Start: 10-14-2024 End: 10-14-2024 ambulatory [facility] Facility:[facility] Start: 10-13-2024 End: 10-13-2024 ambulatory [facility] Facility:[facility] Start: 10-07-2024 End: 10-07-2024 Orders Only João Navarro MD Work Phone: Cardiology Comment on above: Nonrheumatic aortic (valve) stenosis (Primary Dx) Start: 10-06-2024 End: 10-06-2024 Emergency department patient visit Dr. Vadlez Toney MD -Emergency Department Work Phone: Start: 10-02-2024 End: 10-02-2024 Admission to same day surgery center Dr. Gorge Naik MD -Raised Printer/Special Procedures Work Phone: Start: 10-02-2024 End: 10-02-[address] Samantha Reyes MD Work Phone: [facility] Work Phone: Start: 10-01-2024 Non-patient / Non-visit Dr. Gorge gómez MD -[facility] Start: 10-01-2024 End: 10-01-[address] Samantha Reyes MD Work Phone: [facility] Work Phone: Start: 10-01-2024 End: 10-01-[address] Gorge Naik MD -Cardiovascular Services Work Phone: Start: 10-01-2024 End: 10-01-2024 ambulatory Gorge Naik Facility:[facility] Start: 09-16-2024 End: 09-16-2024 Admission to same day surgery [facility] Gorge Naik MD -Raised Printer/Special Procedures Work Phone: Start: 09-16-2024 End: 09-16-2024 ambulatory [facility] Facility:[facility] Start: 09-09-2024 End: 09-09-[address] Gorge Naik MD -[facility] Work Phone: Start: 09-09-2024 End: 09-09-2024 [facility] Start: 05-19-2024 End: 05-19-2024 Telephone encounter Odessa Sanchez APRN.CNP Work Phone: [facility] [employer] [facility] Comment on above: Results Start: 05-17-2024 End: 05-17-2024 ambulatory SELF Facility:[facility] Start: 05-17-2024 End: 05-17-2024 Patient encounter procedure Davina Flowers PA-C Work Phone: [facility] Comment on above: Acute UTI (Primary D x) Start: 05-12-2024 End: 05-12-2024 ambulatory Doe Martinez NETWORK OPERATIONS ANALYST Facility:[facility] Start: 04-14-2024 End: 04-14-2024 ambulatory Doe Martinez NETWORK OPERATIONS ANALYST [facility] Start: 04-14-2024 End: 04-14-2024 Patient encounter procedure Samantha Reyes MD Work Phone: [facility] Comment on above: Essential hypertensi on, benign (Primary Dx); Hyperlipidemia, unspecified hyperlipidemia type; Atrial fibrillation, unspecified type (HCC); Deep vein thrombosis (DVT) of lower extremity, unspecified chronicity, unspecified laterality, unspecified vein (HCC); Atherosclerosis of 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 coronary artery of 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 angina pectoris; Hypothyroidism, unspecified type; Chronic kidney disease, stage 3a (HCC); Gastroesophageal reflux disease, unspecified whether esophagitis present; Urinary incontinence, unspecified type; Vitamin D deficiency Start: 04-14-2024 End: 04-14-2024 ambulatory SAMANTHA REYES Facility:[facility] Start: 04-10-2024 ambulatory Gorge Gumaro Facility:[facility] Start: 04-10-2024 End: 04-10-2024 ambulatory Gorge Gumaro Facility:[facility] Start: 04-04-2024 ambulatory Gorge Gumaro [facility] Start: 04-03-2024 End: 04-04-2024 Refill Samantha Reyes MD Work Phone: [facility] [place] Comment on above: Refill Request Start: 03-27-2024 End: 03-27-2024 Refill Samantha Reyes MD Work Phone: [facility] Start: 03-24-2024 End: 03-24-2024 ambulatory Gorge Gumaro Facility:[facility] Start: 03-20-2024 End: 03-20-2024 Refill Samantha Reyes MD Work Phone: [facility] [place] Comment on above: Refill Request Start: 02-28-2024 End: 02-28-2024 Telephone encounter Samantha Reyes MD Work Phone: [facility] Comment on above: Patient Update Start: 02-20-2024 ambulatory Gorge Gumaro Facility:[facility] Start: 02-14-2024 End: 02-14-2024 ambulatory Samantha Reyes Facility:[facility] Start: 10-12-2023 Documentation procedure Mammog chelita Coordinator [facility] Start: 10-12-2023 Letter encounter Mammography Coordinator [facility] Start: 10-11-2023 End: 10-11-2023 Subsequent hospital visit by physician Screen Mammo [facility] Mammogram Comment on above: Encounter for screen ing mammogram for malignant neoplasm of breast [Z12.31] Start: 10-11-2023 End: 10-11-2023 Patient encounter procedure Samantha Reyes MD Work Phone: [facility] [place] Comment on above: Essential hypertensi on, benign (Primary Dx); Atrial fibrillation, unspecified type (HCC); Chronic kidney disease, stage 3a (HCC); Need for vaccination; Encounter for screening mammogram for malignant neoplasm of breast; Atherosclerosis of 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 coronary artery of 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 angina pectoris; Gastroesophageal reflux disease, unspecified whether esophagitis present; Hypothyroidism, unspecified type; Obesity, Class II, BMI 35-39.9; Vitamin D deficiency Start: 08-11-2023 End: 08-11-2023 ambulatory [facility] Work Phone: Start: 08-11-2023 End: 08-11-2023 Patient encounter procedure [facility]Labor[facility] Work Phone: Start: 04-27-2023 End: 04-27-2023 ambulatory [facility] Work Phone: [facility] Start: 04-10-2023 End: 04-10-2023 Patient encounter procedure Samantha Reyes MD Work Phone: [facility] Comment on above: Essential hypertensi on, benign (Primary Dx); Hyperlipidemia, unspecified hyperlipidemia type; Chronic kidney disease, stage 3a (HCC); Hypothyroidism, unspecified type; Gastroesophageal reflux disease, unspecified whether esophagitis present; Vitamin D deficiency; Urinary incontinence, unspecified type; Atherosclerosis of 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 coronary artery of 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 angina pectoris; Atrial fibrillation, unspecified type (HCC); Deep vein thrombosis (DVT) of lower extremity, unspecified chronicity, unspecified laterality, unspecified vein (HCC); Malignant neoplasm of ovary, unspecified laterality (HCC) Start: 04-08-2023 End: 04-08-2023 Emergency department patient visit Dr. Samantha Reyes Work Phone: [facility]-Emergency Department Work Phone: Start: 03-21-2023 Follow-up status Dr. Samantha cox Work Phone: [facility] Start: 03-21-2023 End: 03-21-2023 Emergency department patient visit Dr. Samantha Reyes Work Phone: [facility]-Emergency Department Work Phone: Start: 03-14-2023 Refill Samantha castorena MD Work Phone: [facility] Comment on above: Refill Request Start: 02-13-2023 Telephone encounter Dulce Maria casey CARTON CATCHER.[employer]TELL[employer] Work Phone: [facility] Comment on above: Results Start: 02-09-2023 End: 02-09-2023 Office outpatient visit 25 minutes Derick Atkins MD Work Phone: [facility] Comment on above: Urinary frequency (P rimary Dx) Start: 02-02-2023 End: 02-02-[address] Samantha Reyes Work Phone: [facility] Work Phone: Start: 02-02-2023 End: 02-02-[address] Samantha Reyes Work Phone: [facility]-Laboratory Work Phone: Start: 02-01-2023 End: 02-01-[address] Samantha Reyes Work Phone: [facility] Work Phone: Start: 01-26-2023 Refill Samantha castorena MD Work Phone: [facility] Comment on above: Refill Request Start: 12-04-2022 Telephone encounter Samantha guillermo MD Work Phone: [facility] [place] Comment on above: Referral Request Start: 08-26-2022 End: 08-26-2022 ambulatory Kyree Mckinnon MD Work Phone: [facility] [place] Comment on above: COVID-19 (Primary Dx ) Start: 08-26-2022 End: 08-26-2022 Telemedicine consultation with patient Kyree Mckinnon MD Work Phone: [facility] Start: 08-25-2022 End: 08-25-2022 Subsequent hospital visit by physician Xr [facility] Work Phone: Radiology Comment on above: Viral URI with cough [J06.9] Start: 08-25-2022 End: 08-25-2022 Patient encounter procedure Davina Flowers PA-C Work Phone: [facility] Comment on above: Viral URI with cough (Primary Dx) Start: 08-21-2022 End: 08-21-2022 Patient encounter procedure La Nena Toscano APRN.[employer]NALS INTELLIGENCE Work Phone (unformatted): [phone] HUMAN RESOURCES OFFICE ASSISTANT UROL GUZMAN [facility] Comment on above: 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 Samantha Reyes Work Phone: [facility] Start: 08-01-2022 End: 08-01-[address] Samantha Reyes Work Phone: [facility] Work Phone: Start: 08-01-2022 End: 08-01-[address] Samantha Reyes Work Phone: [facility]Labor[facility] Start: 07-25-2022 End: 07-25-[address] Samantha Reyes Work Phone: [facility] Work Phone: Start: 07-25-2022 End: 07-25-[address] Samantha Reyes Work Phone: [facility] Start: 07-18-2022 End: 07-18-[address] Samantha Reyes Work Phone: [facility] Work Phone: Start: 07-18-2022 End: 07-18-[address] Samantha Reyes Work Phone: [facility] Start: 07-11-2022 Non-patient / Non-visit Dr. Rosemarie Reyes Work Phone: [facility] Start: 07-11-2022 Non-patient / Non-visit Dr. Rosemarie Reyes Work Phone: [facility] Start: 07-11-2022 End: 07-11-2022 Admission to same day surgery center Dr. Samantha Reyes Work Phone: [facility]-[employer]/Special Procedures Start: 07-10-2022 Non-patient / Non-visit Dr. Rsoemarie Reyes Work Phone: [facility] Start: 07-04-2022 End: 07-04-[address] Samantha Reyes Work Phone: [facility] Start: 07-03-2022 End: 07-03-[address] Samantha Reyes Work Phone: [facility] Work Phone: Start: 07-03-2022 End: 07-03-[address] Samantha Reyes Work Phone: [facility] Start: 06-20-2022 End: 06-20-[address] [facility] Start: 06-13-2022 End: 06-13-[address] Samantha Reyes Work Phone: [facility] Work Phone: Start: 06-13-2022 End: 06-13-[address] Samantha Reyes Work Phone: [facility] Start: 05-15-2022 End: 05-15-[address] Samantha Reyes Work Phone: [facility] Start: 05-15-2022 End: 05-15-[address] Samantha Reyes Work Phone: [facility] Work Phone: Start: 05-15-2022 End: 05-15-[address] Samantha Reyes Work Phone: [facility] Start: 05-11-2022 Refill Samantha castorena MD Work Phone: [facility] Comment on above: Refill Request Start: 04-25-2022 End: 04-26-[address] Samantha Reyes Work Phone: [facility] Work Phone: Start: 04-25-2022 End: 04-26-[address] Samantha Reyes Work Phone: [facility] Start: 04-04-2022 End: 04-04-[address] Samantha Reyes Work Phone: [facility] Work Phone: Start: 04-04-2022 End: 04-04-[address] Samantha Reyes Work Phone: [facility] Start: 03-28-2022 Telephone encounter Samantha guillermo MD Work Phone: [facility] Comment on above: Anticoagulation Start: 03-28-2022 End: 03-28-[address] Samantha Reyes Work Phone: [facility] Work Phone: Start: 03-28-2022 End: 03-28-[address] Samantha Reyes Work Phone: [facility] Start: 03-21-2022 End: 03-21-2022 Admission to same day surgery center Dr. Samantha Reyes Work Phone: [facility]/Special Procedures Start: 03-21-2022 End: 03-21-[address] Samantha Reyes Work Phone: [facility] Work Phone: Start: 03-13-2022 End: 03-13-[address] Samantha Reyes Work Phone: [facility] Start: 03-10-2022 Refill Samantha castorena MD Work Phone: [facility] Comment on above: Refill Request; Refi ll Request Start: 03-07-2022 Non-patient / Non-visit Dr. Rosemarie Reyes Work Phone: [facility] Start: 03-07-2022 End: 03-07-2022 Anticoagulant drug monitoring [facility] Work Phone: [facility] Comment on above: Personal history of venous thrombosis and embolism Start: 03-03-2022 Telephone encounter Samantha guillermo MD Work Phone: [facility] Comment on above: Coumadin Rx Start: 02-28-2022 Non-patient / Non-visit Dr. Rosemarie Reyes Work Phone: [facility] Start: 02-28-2022 End: 02-28-2022 Anticoagulant drug monitoring [facility] Comment on above: Personal history of venous thrombosis and embolism Start: 02-23-2022 Telephone encounter Sylwia Mcleod APRN.[employer]TELLIGENCE Work Phone: [facility] Comment on above: Results Start: 02-21-2022 Non-patient / Non-visit Dr. Rosemarie Reyes Work Phone: [facility] Start: 02-21-2022 End: 02-21-2022 Anticoagulant drug monitoring [facility] Comment on above: Personal history of venous thrombosis and embolism Start: 02-21-2022 End: 02-21-2022 Patient encounter procedure Avtar Mccartney APRN.[employer]LS INTELLIGENCE Work Phone: [facility] Comment on above: Urinary frequency (P rimary Dx) Start: 02-14-2022 Non-patient / Non-visit Dr. Rosemarie Reyes Work Phone: [facility] Start: 02-14-2022 End: 02-14-2022 Anticoagulant drug monitoring [facility] Work Phone: [facility] Comment on above: Personal history of venous thrombosis and embolism Start: 02-09-2022 Telephone encounter Samantha guillermo MD Work Phone: [facility] Comment on above: Patient Update Start: 02-09-2022 End: 02-09-[address] Samantha Reyes Work Phone: [facility] Work Phone: Start: 02-09-2022 End: 02-09-[address] Samantha Reyes Work Phone: [facility] Start: 02-08-2022 Refill Sheba love MD Work Phone: HUMAN RESOURCES OFFICE ASSISTANT UROL GUZMAN [facility] Comment on above: Refill Request; Refi ll Request Start: 02-03-2022 Telephone encounter Samantha guillermo MD Work Phone: [facility] Comment on above: Anticoagulation Start: 02-03-2022 End: 02-03-2022 Emergency department patient visit Dr. Samantha Reyes Work Phone: [facility] Start: 02-03-2022 End: 02-03-[address] Samantha Reyes Work Phone: [facility] Work Phone: Start: 02-03-2022 End: 02-03-[address] Samantha Reyes Work Phone: [facility]-Laboratory, Specimen Start: 02-01-2022 End: 02-01-2022 Patient encounter procedure Derick Atkins MD Work Phone: [facility] Comment on above: Urinary frequency (P rimary Dx); Burning with urination Start: 02-01-2022 End: 02-01-2022 Anticoagulant drug monitoring [facility] Work Phone: [facility] Comment on above: Personal history of venous thrombosis and embolism Start: 01-19-2022 End: 01-19-2022 Subsequent hospital visit by physician Xr [facility] Work Phone: Radiology Comment on above: Fall, initial encoun ter [W19.XXXA] Start: 01-19-2022 End: 01-19-2022 Patient encounter procedure Sylwia Mcleod APRN.[employer]NALS INTELLIGENCE Work Phone: [facility] Comment on above: Fall, initial encoun ter (Primary Dx) Start: 01-19-2022 Non-patient / Non-visit Dr. Rosemarie Reyes Work Phone: [facility] Start: 01-18-2022 End: 01-18-[address] Samantha Reyes Work Phone: [facility] Work Phone: Start: 01-18-2022 End: 01-18-[address] Samantha Reyes Work Phone: [facility]Pulmonary Services/Neurology Start: 01-11-2022 End: 01-11-[address] Samantha Reyes Work Phone: [facility] Work Phone: Start: 01-11-2022 End: 01-11-[address] Samantha Reyes Work Phone: [facility] Start: 01-09-2022 End: 01-09-2022 [facility] Comment on above: Personal history of venous thrombosis and embolism Start: 01-04-2022 End: 01-04-[address] Samantha Reyes Work Phone: [facility] Start: 01-02-2022 End: 01-02-2022 Patient encounter procedure Samantha Reyes MD Work Phone: [facility] Comment on above: Essential hypertensi on, benign (Primary Dx); Atherosclerosis of 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 coronary artery of 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 angina pectoris; Atrial fibrillation, unspecified type (HCC); Gastroesophageal reflux disease, unspecified whether esophagitis present; Hypothyroidism, unspecified type; Obesity, Class II, BMI 35-39.9 Start: 01-02-2022 End: 01-02-2022 Anticoagulant drug monitoring [facility] Work Phone: [facility] Comment on above: Personal history of venous thrombosis and embolism Start: 12-30-2021 Refill Samantha castorena MD Work Phone: [facility] Comment on above: Prescription Refills Start: 12-30-2021 Refill Charles PATTERSON RN.[facility] Work Phone: [facility] Comment on above: Refill Request Start: 12-23-2021 Refill Charles PATTERSON RN.[facility] Work Phone: [facility] Comment on above: Refill Request Start: 12-23-2021 Telephone encounter Samantha guillermo MD Work Phone: [facility] Comment on above: Opened In Error Start: 12-15-2021 End: 12-15-2021 Anticoagulant drug monitoring [facility] Work Phone: [facility] [place] Comment on above: Personal history of venous thrombosis and embolism; Atrial fibrillation, unspecified type ([facility]) Start: 12-09-2021 Refill Samantha castorena MD Work Phone: [facility] Comment on above: Refill Request Start: 11-23-2021 Telephone encounter Samantha guillermo MD Work Phone: [facility] Comment on above: FYI-No Action Needed (disc with med records) Start: 11-22-2021 Telephone encounter Odessa Cuellar APRN.[facility] Work Phone: [facility] Comment on above: Results Start: 11-21-2021 End: 11-21-2021 Patient encounter procedure Odessa Sanchez APRN.[facility] Work Phone: [facility] Comment on above: Painful urination (P rimary Dx); Acute cystitis with hematuria Start: 11-14-2021 Telephone encounter Samantha guillermo MD Work Phone: [facility] Comment on above: Patient Update; Medi cation Question Start: 11-10-2021 End: 11-11-2021 Emergency department patient visit Dr. Samantha Reyes Work Phone: [facility]Emergency Department Start: 11-10-2021 End: 11-10-2021 Anticoagulant drug monitoring [facility] Work Phone: [facility] Comment on above: Personal history of venous thrombosis and embolism Start: 11-02-2021 Non-patient / Non-visit Dr. Rosemarie Reyes Work Phone: [facility] Start: 11-02-2021 End: 11-02-[address] Samantha Reyes Work Phone: [facility] [place]-Cardiovascula r Services Start: 10-17-2021 End: 10-17-2021 Patient encounter procedure Samantha Reyes MD Work Phone: [facility] Comment on above: SOB (shortness of br eath) (Primary Dx); Atrial fibrillation, unspecified type (HCC); Atherosclerosis of 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 coronary artery of 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 angina pectoris; Essential hypertension, benign; Hypothyroidism, unspecified type Start: 10-13-2021 Telephone encounter Samantha guillermo MD Work Phone: [facility] Comment on above: Patient Update Start: 10-11-2021 End: 10-11-[address] Samantha Reyes Work Phone: [facility]-Laboratory Start: 10-10-2021 End: 10-10-2021 Anticoagulant drug monitoring [facility] Work Phone: [facility] Comment on above: Personal history of venous thrombosis and embolism Start: 10-06-2021 Telephone encounter Samantha guillermo MD Work Phone: [facility] Comment on above: Results Start: 10-04-2021 End: 10-04-[address] Samantha Reyes Work Phone: [facility] Start: 09-26-2021 End: 09-26-2021 Anticoagulant drug monitoring [facility] Work Phone: [facility] Comment on above: Personal history of venous thrombosis and embolism Start: 09-19-2021 End: 09-19-2021 Anticoagulant drug monitoring [facility] Work Phone: [facility] Comment on above: Personal history of venous thrombosis and embolism; Atrial fibrillation, unspecified type (HCC) Start: 09-14-2021 End: 09-14-2021 ambulatory Rachel Narayan SMART.[employer] Work Phone: Urogynecology Comment on above: Urge incontinence (P rimary Dx) Start: 09-14-2021 End: 09-14-2021 Telemedicine consultation with patient Rachel Busch CARTON CATCHER.[employer] Work Phone[facility] Start: 09-12-2021 End: 09-12-2021 Anticoagulant drug monitoring [facility] Work Phone: [facility] Comment on above: Personal history of venous thrombosis and embolism Start: 09-09-2021 Telephone encounter Samantha guillermo MD Work Phone: [facility] Comment on above: Anticoagulation Patient Question Start: 09-09-2021 End: 09-09-2021 Patient encounter procedure Davina Flowers PA-C Work Phone: [facility] Comment on above: Dysuria (Primary Dx) Start: 09-08-2021 Refill Sheba love MD Work Phone: [employer]IST[facility] Comment on above: Refill Request Start: 09-02-2021 Telephone encounter Samantha guillermo MD Work Phone: [facility] Comment on above: Orders (protime) Start: 09-02-2021 End: 09-02-2021 Anticoagulant drug monitoring [facility] Work Phone: [facility] Comment on above: Personal history of venous thrombosis and embolism; Atrial fibrillation, unspecified type (HCC) Start: 08-31-2021 End: 08-31-[address] Samantha Reyes Work Phone: [facility]-Outpatient Breast Imaging Start: 07-07-[address] Samantha Reyes Work Phone: [facility] Start: 07-07-2021 End: 07-07-[address] Samantha Reyes Work Phone: [facility] Start: 04-04-2021 End: 04-04-2021 Subsequent hospital visit by physician [facility] Work Phone: Radiology Comment on above: Acute pain of left k nee [M25.562] Start: 09-14-2020 End: 09-14-2020 Subsequent hospital visit by physician [facility] Work Phone: Radiology Comment on above: Acute pain of right shoulder [M25.511] Procedures Date Procedure Procedure Detail Performing Clinician Start: 01-21-2025 Ecg routine ecg w/le ast 12 lds w/i&r Miryam Tejeda MD Work Phone: Start: 12-01-2024 Radiologic exam ches t 2 views Krys Torres MD Work Phone: Start: 12-01-2024 Comprehensive metabo lic panel Harsha Huerta PA-C Work Phone: Start: 12-01-2024 Ecg routine ecg w/le ast 12 lds trcg only w/o i&r Krys Torres MD Work Phone: Start: 12-01-2024 Ecg routine ecg w/le ast 12 lds trcg only w/o i&r Maggie Huggins MD Work Phone: Start: 11-24-2024 Ecg routine ecg w/le ast 12 lds trcg only w/o i&r Oh Aguirre MD Work Phone: Start: 11-11-2024 Ecg routine ecg w/le ast 12 lds trcg only w/o i&r Maggie Huggins MD Work Phone: Start: 10-14-2024 Adult depression scr eening assessment Samantha Reyes MD Work Phone: Start: 10-13-2024 Thyrotropin [Units/v olume] in Serum or Plasma Maggie Huggins MD Work Phone: Start: 10-06-2024 Plain chest X-ray Dr. Kera Reyes MD Work Phone: Start: 10-06-[address] Samantha Reyes MD Work Phone: Start: 09-15-2024 X-ray of chest, PA a nd lateral views Dr. Samantha Reyes MD Work Phone: Start: 09-15-[address] Samantha Reyes MD Work Phone: Start: 05-17-2024 Urnls dip stick/tabl et rgnt auto w/o microscopy Odessa Sanchez APRN.CNP Work Phone: Start: 10-11-2023 PFIZER-BIONTECH COVI D-19 VACCINE ( SEASON) AGE 12+ YR Samantha Reyes MD Work Phone: Start: 10-11-2023 Adult depression scr eening assessment [facility] Work Phone: Start: 04-27-2023 PFIZER-BIONTECH COVI D-19 VACCINE ( SEASON) AGE 12+ YR Elroy Nguyen MD Work Phone: Start: 04-08-2023 Plain chest X-ray Dr. Kera Reyes Work Phone: Start: 03-21-2023 Plain chest X-ray Dr. Kera Reyes Work Phone: Start: 02-09-2023 Urnls dip stick/tabl et rgnt auto w/o microscopy Sylwia Mcleod CARTON CATCHER.[employer] Work Phone: Start: 08-25-2022 Radiologic exam ches t 2 views Davina CUETOC Work Phone: Start: 03-28-2022 PROTHROMBIN TIME/PT Apple haja Harrisw Work Phone: Start: 02-21-2022 Urnls dip stick/tabl et rgnt auto w/o microscopy Avtar Bib CARTON CATCHER.[employer] Work Phone: Start: 02-03-2022 PROTHROMBIN TIME/PT [facility] Provider Start: 02-03-2022 Plain chest X-ray Dr. Kera Reyes Work Phone: Start: 02-01-2022 Urnls dip stick/tabl et rgnt auto w/o microscopy Davina CUETOC Work Phone: Start: 01-19-2022 Radiologic exam knee complete 4/more views Sylwia Mcleod CARTON CATCHER.[employer] Work Phone: Start: 01-02-2022 Prothrombin time Samantha Reyes MD Work Phone: Start: 11-21-2021 Urnls dip stick/tabl et rgnt auto w/o microscopy Nata Akbar PA-C Work Phone: Start: 11-10-2021 Plain chest X-ray Dr. Kera Reyes Work Phone: Start: 11-02-2021 Cardiovascular stres s test using pharmacologic stress agent Dr. Samantha Reyes Work Phone: Start: 10-11-2021 Plain chest X-ray Dr. Kera Reyes Work Phone: Start: 09-09-2021 PROTHROMBIN TIME/PT [facility] Provider Start: 09-09-2021 Urnls dip stick/tabl et rgnt auto w/o microscopy Davina Flowers PA-C Work Phone: Start: 08-31-2021 Screening mammography D r. Samantha Elderbrock Work Phone: Start: 04-04-2021 Radiologic exam knee complete 4/more views Liss Rucker PA-C Work Phone: Start: 09-14-2020 Radex spine cervical 4 or 5 views Derick Atkins MD Work Phone: Start: 03-28-2017 End: 03-28-2017 *Hepatic [...] 11-30-2015 Urate [Mass/volume] in Serum or Plasma Matamoros M Alam Work Phone: Start: 11-30-2015 End: 11-30-2015 *CBC [...] 11-08-2015 Follow Up Appt 6 months Shila Michael PA-C Work Phone: Start: 11-08-2015 End: 11-08-2015 LORENZO Michael PA-C Work Phone: Start: 11-08-2015 End: 11-08-2015 Follow Up Appt 6 months Shila Michael PA-C Work Phone: Start: 10-28-2015 End: 10-28-2015 [...] MD Work Phone: Start: 10-05-2015 End: 10-05-2015 DJN Gaurang Gorman MD Work Phone: Start: 10-05-2015 End: 10-05-2015 Follow Up Appt 6 months Gaurang Gorman MD Work Phone: Start: 10-05-2015 End: 10-22-2015 Stress Echocardiogram - Dobutamine Gaurang Gorman MD Work Phone: Start: 10-05-2015 End: 10-05-2015 DJN Gaurang Gorman MD Work Phone: Start: 10-05-2015 [...] End: 06-02-2015 *CMP Complete Metabolic Panel Saturnino Ann Alam Work Phone: Start: 06-02-2015 End: 06-03-2015 Cancer Ag 125 [Units/volume] in Serum or Plasma Matamoros M Alam Work Phone: Start: 06-02-2015 End: 06-02-2015 Lactate dehydrogenase [Enzymatic activity/volume] in Serum or Plasma Matamoros M Alam Work Phone: Start: 06-02-2015 End: 06-02-2015 Urate [Mass/volume] in Serum or Plasma Matamoros Kera Alam Work Phone: Start: 06-02-2015 End: 11-30-2015 *CBC with Differential Matamoros Kera Alakera Work Phone: Start: 06-02-2015 End: 06-02-2015 *CMP [...] 11-25-2014 End: 11-30-2015 *CBC with Differential Matamoros Kera Alam Work Phone: Start: 11-25-2014 End: 11-30-2014 *CMP Complete Metabolic Panel Saturnino Thomas Work Phone: Start: 11-25-2014 End: 12-02-2014 Cancer Ag 125 [Units/volume] in Serum or Plasma Saturnino Ann Alam Work Phone: Start: 11-25-2014 End: 11-30-2014 Lactate dehydrogenase [Enzymatic activity/volume] in Serum or Plasma Saturnino Thomas Work Phone: Start: 11-25-2014 End: 11-30-2014 Urate [Mass/volume] in Serum or Plasma Saturnino Thomas Work Phone: Start: 11-25-2014 End: 11-30-2015 *CBC with Differential Saturnino Thomas Work Phone: Start: 11-25-2014 End: 11-30-2014 *CMP Complete Metabolic Panel Saturnino Thomas Work Phone: Start: 11-25-2014 End: 12-02-2014 Cancer antigen 125 Saturnino Thomas Work Phone: Start: 11-25-2014 End: 11-30-2014 Lactate dehydrogenase (LDH) Saturnino Thomas Work Phone: Start: 11-25-2014 End: 11-30-2014 Urate Saturnino Thomas Work Phone: Start: 09-07-2014 End: 09-07-2014 LORENZO [...] End: 10-13-2013 Follow Up Appt 1 year Kera Epps Work Phone: Start: 10-13-2013 End: 09-07-2014 Pulmonary Fuction Test - complete Gaurang Gorman MD Work Phone: Start: 10-13-2013 End: 10-22-2013 Ct abdomen w/o & w/dye Gaurang Gorman MD Work Phone: Start: 10-13-2013 End: 10-22-2013 Ct thorax w/o & w/dye Kera Epps Work Phone: Start: 10-13-2013 End: 10-13-2013 LORENZO Gorman MD Work Phone: Start: 10-13-2013 End: 10-13-2013 Follow Up Appt 1 year Kera Epps Work Phone: Start: 10-13-2013 End: 09-07-2014 [...] Reed Waite MD Start: 04-09-2013 End: 04-09-2013 *BMP Gaurang Gorman MD Work Phone: Start: 04-09-2013 [...] End: 04-03-2013 Follow Up Appt Other Shila Michael PA-C Work Phone: Start: 04-03-2013 End: 04-03-2013 Follow Up Appt Other Shila Michael PA-C Work Phone: Start: 04-02-2013 [...] MD Work Phone: Start: 03-04-2013 End: 03-04-2013 DJN Gaurang Gorman MD Work Phone: Start: 03-04-2013 End: 04-03-2013 Echocardiography Gaurang Gorman MD Work Phone: Start: 03-04-2013 End: 03-04-2013 Follow Up Appt 1 year Kera Epps Work Phone: Start: 03-04-2013 End: 04-03-2013 [...] MD Work Phone: Start: 03-04-2013 End: 03-04-2013 LOREZNO Gorman MD Work Phone: Start: 03-04-2013 End: 04-03-2013 Echocardiography Gaurang Gorman MD Work Phone: Start: 03-04-2013 End: 03-04-2013 Follow Up Appt 1 year Kera Epps Work Phone: Start: 03-04-2013 End: 04-03-2013 [...] Serum or Plasma Derrick Ang MD Start: 02-19-2012 End: 02-25-2012 [...] test -adenosine Derrick Ang MD Start: 09-15-2010 History of placement of stent for coronary artery disease Status post coronary artery stent placement Ach Ecg Start: 09-15-2010 Placement of stent i n coronary artery Status post cardiac stent placement Shila Knight RN Start: 09-15-2010 Placement of stent i n coronary artery Status post cardiac stent placement Renate Issa Start: 03-20-2005 History of coronary artery bypass grafting Postsurgical aortocoronary bypass status Samantha Reyes MD Work Phone: Start: 05-28-1999 History of coronary artery bypass grafting H/O coronary artery bypass surgery Dr. Samantha Reyes Work Phone: Comment on above: CABG PATINO graft LAD, pericardial drainage/window for pericardial effusion March 2000, saphenous vein graft to Diag 26 February 2000 History of coronary artery bypass grafting S/P CABG (coronary artery bypass graft) Maggie Huggins MD Work Phone: History of coronary artery bypass grafting S/P CABG (coronary artery bypass graft) Maggie Huggins MD Work Phone: Viral antigen assay Dr. Samantha Reyes Work Phone: Plan of Treatment Date Care Activity Detail Author Start: 12-02-2027 Diabetes Screening Diabetes Screening [facility] Start: 04-14-2027 Diabetes Screening Diabetes Screening [facility] Start: 10-01-2026 Diabetes Screening Diabetes Screening [facility] Start: 07-13-2026 DTaP/Tdap/Td Vaccines (3 - Td or Tdap) DTaP/Tdap/Td Vaccines (3 - Td or Tdap) [facility] Start: 07-13-2026 Tetanus vaccination Tetanus: Every 10yrs [facility] Start: 07-13-2026 Urine microalbumin profile [facility] Start: 04-05-2026 Diabetes Screening Diabetes Screening [facility] Start: 01-21-2026 CLASS III : EKG CLASS III : EKG [facility] Start: 12-01-2025 Creatinine measurement Creatinine Level [facility] Start: 12-01-2025 Potassium measurement Potassium Level [facility] Start: 10-14-2025 Anxiety Screening Anxiety Screening [facility] Start: 10-14-2025 Depression Screening Depression Screening [facility] Start: 10-13-2025 Hepatitis B surface antibody level LDL Cholesterol [facility] Start: 10-13-2025 Thyroid stimulating hormone measurement TSH Level [facility] Start: 09-30-2025 DIABETES SCREEN DIABETES SCREEN [facility] Start: 09-30-2025 Diabetes Screening Diabetes Screening [facility] Start: 04-20-2025 End: 04-20-2025 Patient encounter procedure 04/20/2025 9:00 AM EST Office Visit [facility] [address] [place], [place] [phone] Kyree Mckinnon MD [address] [place], [place] [phone] transfer from [facility]/6 month follow up [facility] Comment on above: transfer from [facility]/6 month follow up Start: 04-14-2025 Hepatitis B surface antibody level LDL Cholesterol [facility] Start: 04-14-2025 End: 04-14-2025 Patient encounter procedure 04/14/2025 11:20 AM EST Office Visit [facility] [address] [place] [phone] Davida Rosa MD [address] [place] [address] [facility] Start: 03-28-2025 DIABETES SCREEN DIABETES SCREEN [facility] Start: 02-02-2025 End: 02-02-2025 Admission to same day surgery center 02/02/2025 8:00 AM EDT - 02/02/2025 11:00 AM EDT Surgery [facility] [address] [place] [phone] Miryam Tejeda MD [address] [place] [phone] RF Ablation Afib and Aflutter With Mapping [facility] Comment on above: RF Ablation Afib and Aflutter With Mappi ng Start: 02-02-2025 Subsequent hospital visit by physician 02/02/2025 8:00 AM EDT Hospital Encounter [facility] Procedural Care Unit [address] [place], [place] [phone] Miryam Tejeda MD [address] [place] [phone] [facility] Start: 01-26-2025 COVID-19 Vaccine ( season) COVID-19 Vaccine ( season) [facility] Start: 01-26-2025 Influenza vaccination Influenza Vaccine (#1) [facility] Start: 01-22-2025 End: 01-22-2025 Patient encounter procedure 01/22/2025 2:15 PM EDT Appointment [facility] [address] [place], [place] [address]pam, 3rd [place] [phone] Miryam Tejeda MD [address] [place] [address] [facility] Start: 01-21-2025 End: 03-23-2026 Echocardiogram limited Echocardiogram limited Echocardiography Routine Abnormal EKG Expected: 01/21/2025, Expires: 03/23/2026 [facility] Work Phone: Comment on above: Expected: 01/21/2025, Expires: Start: 01-21-2025 End: 01-21-2025 Patient encounter procedure 01/21/2025 8:40 AM EDT Office Visit [facility] [address] [facility], 3rd [place] [phone] Davida Rosa MD [address] [place] [address] Miryam Tejeda MD [address] [place] [address] [facility] Start: 01-05-2025 End: 01-05-2025 Patient encounter procedure 01/05/2025 11:00 AM EDT Office Visit [facility] [address] [place] [address] System, Provider Not In [place], Krys Ann MD [address] [place] [phone] Davida Rosa MD [address] [place] [address] [facility] Start: 12-08-2024 End: 12-08-2024 Patient encounter procedure 12/08/2024 9:30 AM EDT Office Visit [facility] [place] [address] [place] [phone] Shila Uribe PA-C [address] [address] [address] [facility] Start: 12-03-2024 End: 11-19-2025 Basic metabolic 1998 panel - Serum or Plasma Basic metabolic panel Lab Routine Chronic HFrEF (heart failure with reduced ejection fraction) (HCC) Expected: 12/03/2024 (Approximate), Expires: 11/19/2025 [facility] Work Phone: Comment on above: Expected: 12/03/2024 (Approximate), Expi res: 11/19/2025 Start: 11-25-2024 End: 11-11-2026 Cardioversion external Cardioversion external [facility] Cardiac Services Routine Typical atrial flutter (HCC) Expected: 11/25/2024 (Approximate), Expires: 11/11/2026 [facility] Work Phone: Comment on above: Expected: 11/25/2024 (Approximate), Expi res: 11/11/2026 Start: 11-24-2024 End: 11-24-2024 Patient encounter procedure 11/24/2024 1:00 PM EDT Appointment [facility] [address] [place] [phone] Oh Aguirre MD [address] [place] [id number] [facility] Start: 11-19-2024 End: 11-19-2024 Clinical Support 11/19/2024 10:00 AM EDT Clinical Support [facility] [address] [place] [phone] [facility] Start: 11-18-2024 End: 11-11-2025 Basic metabolic 1998 panel - Serum or Plasma Basic metabolic panel Lab Routine Typical atrial flutter (HCC) Expected: 11/18/2024 (Approximate), Expires: 11/11/2025 [facility] Comment on above: Expected: 11/18/2024 (Approximate), Expi res: 11/11/2025 Start: 11-18-2024 End: 11-11-2025 Natriuretic peptide B [Mass/volume] in Blood NT PRO BNP Lab Routine Typical atrial flutter (HCC) Expected: 11/18/2024 (Approximate), Expires: 11/11/2025 [facility] Comment on above: Expected: 11/18/2024 (Approximate), Expi res: 11/11/2025 Start: 10-14-2024 End: 10-14-2024 Patient encounter procedure 10/14/2024 9:40 AM EDT Office Visit [facility] [address] [place] [address] Samantha Reyes MD [address] [place] [address] 6 mo f/u [facility] Comment on above: 6 mo f/u Start: 10-13-2024 End: 10-13-2024 ambulatory 10/13/2024 9:00 AM EDT Results Only [facility] [address] [place] [address] [facility] Start: 10-12-2024 End: 01-11-2025 25-hydroxyvitamin D3 [Mass/volume] in Serum or Plasma VITAMIN D 25 HYDROXY Lab Routine Vitamin D deficiency Expected: 10/12/2024 (Approximate), Expires: 01/11/2025 [facility] Comment on above: Expected: 10/12/2024 (Approximate), Expi res: 01/11/2025 Start: 10-12-2024 End: 01-11-2025 Comprehensive metabolic 2000 panel - Serum or Plasma COMPREHENSIVE METABOLIC PANEL Lab Routine Essential hypertension, benign Hyperlipidemia, unspecified hyperlipidemia type Chronic kidney disease, stage 3a (HCC) Expected: 10/12/2024 (Approximate), Expires: 01/11/2025 [facility] Work Phone: Comment on above: Expected: 10/12/2024 (Approximate), Expi res: 01/11/2025 Start: 10-12-2024 End: 01-11-2025 Lipid 1996 panel - Serum or Plasma LIPID PANEL BASIC Lab Routine Essential hypertension, benign Hyperlipidemia, unspecified hyperlipidemia type Atherosclerosis of 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 coronary artery of 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 angina pectoris Expected: 10/12/2024 (Approximate), Expires: 01/11/2025 [facility] Comment on above: Expected: 10/12/2024 (Approximate), Expi res: 01/11/2025 Start: 10-12-2024 End: 01-11-2025 Thyrotropin [Units/volume] in Serum or Plasma THYROID STIMULATING HORMONE Lab Routine Hypothyroidism, unspecified type Expected: 10/12/2024 (Approximate), Expires: 01/11/2025 [facility] Comment on above: Expected: 10/12/2024 (Approximate), Expi res: 01/11/2025 Start: 10-10-2024 Anxiety Screening Anxiety Screening [facility] Start: 10-10-2024 Depression Screening Depression Screening [facility] Start: 10-06-2024 [facility] Start: 10-06-2024 [facility] Start: 10-02-2024 Patient discharge [facility] Start: 10-01-2024 Hepatitis B surface antibody level LDL Cholesterol [facility] Start: 09-09-2024 DIABETES SCREEN DIABETES SCREEN [facility] Start: 08-26-2024 COVID-19 Vaccine () COVID-19 Vaccine () [facility] Start: 07-04-2024 DIABETES SCREEN DIABETES SCREEN [facility] Start: 05-28-2024 Advance Directive Discussion Advance Directive Discussion [facility] Start: 05-28-2024 Medicare Advantage Annual Wellness Visit Medicare Advantage Annual Wellness Visit [facility] Start: 04-22-2024 Covid-19 Vaccine () Covid-19 Vaccine () [facility] Start: 04-14-2024 End: 04-14-2024 Patient encounter procedure 04/14/2024 1:40 PM EST Office Visit [facility] [place] [address] [facility] [place] [address] Samantha Reyes MD [address] [place] [address] 6 month follow up [facility] Comment on above: 6 month follow up Start: 04-12-2024 End: 07-12-2024 25-hydroxyvitamin D3 [Mass/volume] in Serum or Plasma VITAMIN D 25 HYDROXY Lab Routine Vitamin D deficiency Expected: 04/12/2024 (Approximate), Expires: 07/12/2024 [facility] Comment on above: Expected: 04/12/2024 (Approximate), Expi res: 07/12/2024 Start: 04-12-2024 End: 07-12-2024 CBC W Auto Differential panel - Blood COMPLETE BLOOD COUNT AND DIFFERENTIAL Lab Routine Gastroesophageal reflux disease, unspecified whether esophagitis present Expected: 04/12/2024 (Approximate), Expires: 07/12/2024 [facility] Comment on above: Expected: 04/12/2024 (Approximate), Expi res: 07/12/2024 Start: 04-12-2024 End: 07-12-2024 Comprehensive metabolic 2000 panel - Serum or Plasma COMPREHENSIVE METABOLIC PANEL Lab Routine Atherosclerosis of 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 coronary artery of 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 angina pectoris Expected: 04/12/2024 (Approximate), Expires: 07/12/2024 [facility] Comment on above: Expected: 04/12/2024 (Approximate), Expi res: 07/12/2024 Start: 04-12-2024 End: 07-12-2024 Lipid 1996 panel - Serum or Plasma LIPID PANEL BASIC Lab Routine Atherosclerosis of 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 coronary artery of 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 angina pectoris Expected: 04/12/2024 (Approximate), Expires: 07/12/2024 [facility] Comment on above: Expected: 04/12/2024 (Approximate), Expi res: 07/12/2024 Start: 04-12-2024 End: 07-12-2024 Thyrotropin [Units/volume] in Serum or Plasma THYROID STIMULATING HORMONE Lab Routine Hypothyroidism, unspecified type Expected: 04/12/2024 (Approximate), Expires: 07/12/2024 [facility] Comment on above: Expected: 04/12/2024 (Approximate), Expi res: 07/12/2024 Start: 04-05-2024 Hepatitis B surface antibody level LDL Cholesterol [facility] Start: 01-27-2024 COVID-19 Vaccine ( season) COVID-19 Vaccine () [facility] Start: 01-27-2024 Covid-19 Vaccine ( season) Covid-19 Vaccine () [facility] Start: 01-27-2024 Influenza vaccination Influenza Vaccine (#1) [facility] Start: 10-09-2023 End: 01-08-2024 25-hydroxyvitamin D3 [Mass/volume] in Serum or Plasma VITAMIN D 25 HYDROXY Lab Routine Vitamin D deficiency Expected: 10/09/2023 (Approximate), Expires: 01/08/2024 [facility] Work Phone: Comment on above: Expected: 10/09/2023 (Approximate), Expi res: 01/08/2024 Start: 10-09-2023 End: 01-08-2024 CBC W Auto Differential panel - Blood CBC + DIFF Lab Routine Essential hypertension, benign Malignant neoplasm of ovary, unspecified laterality (HCC) Expected: 10/09/2023 (Approximate), Expires: 01/08/2024 [facility] Work Phone: Comment on above: Expected: 10/09/2023 (Approximate), Expi res: 01/08/2024 Start: 10-09-2023 End: 01-08-2024 Comprehensive metabolic 2000 panel - Serum or Plasma COMP METABOLIC PANEL Lab Routine Essential hypertension, benign Hyperlipidemia, unspecified hyperlipidemia type Chronic kidney disease, stage 3a (HCC) Expected: 10/09/2023 (Approximate), Expires: 01/08/2024 [facility] Work Phone: Comment on above: Expected: 10/09/2023 (Approximate), Expi res: 01/08/2024 Start: 10-09-2023 End: 01-08-2024 Lipid 1996 panel - Serum or Plasma LIPID PANEL BASIC Lab Routine Essential hypertension, benign Hyperlipidemia, unspecified hyperlipidemia type Expected: 10/09/2023 (Approximate), Expires: 01/08/2024 [facility] Work Phone: Comment on above: Expected: 10/09/2023 (Approximate), Expi res: 01/08/2024 Start: 10-09-2023 End: 01-08-2024 Thyrotropin [Units/volume] in Serum or Plasma TSH BLD Lab Routine Hypothyroidism, unspecified type Expected: 10/09/2023 (Approximate), Expires: 01/08/2024 [facility] Work Phone: Comment on above: Expected: 10/09/2023 (Approximate), Expi res: 01/08/2024 Start: 10-01-2023 Hepatitis B surface antibody level LDL CHOLESTEROL [facility] Start: 04-08-2023 [facility] Start: 04-08-2023 [facility] Start: 03-28-2023 Hepatitis B surface antibody level LDL CHOLESTEROL [facility] Start: 03-21-2023 [facility] Start: 03-21-2023 [facility] Start: 01-26-2023 Covid-19 Vaccine () Covid-19 Vaccine () [facility] Start: 01-26-2023 Influenza vaccination [facility] Start: 09-09-2022 Hepatitis B surface antibody level LDL CHOLESTEROL [facility] Start: 09-03-2022 COVID-19 VACCINE (5 - Mixed Product series) COVID-19 VACCINE (5 - Mixed Product series) [facility] Start: 08-25-2022 End: 09-08-2022 Influenza virus A and B RNA and SARS-CoV-2 (COVID-19) N gene panel - Respiratory specimen by MELISSA with probe detection [facility] Work Phone: Comment on above: Expected: 08/25/2022, Expires: 3 Start: 08-14-2022 End: 10-14-2022 Hepatic function 2000 panel - Serum or Plasma HEPATIC FUNCTION PNL Lab Routine Encounter for long-term (current) use of medications Expected: 08/14/2022, Expires: 10/14/2022 [facility] Work Phone (unformatted): [phone] Comment on above: Expected: 08/14/2022, Expires: 3 Start: 07-04-2022 Hepatitis B surface antibody level LDL CHOLESTEROL [facility] Start: 05-28-2022 ADVANCE DIRECTIVE DISCUSSION ADVANCE DIRECTIVE DISCUSSION [facility] Start: 05-28-2022 DEPRESSION ASSESSMENT DEPRESSION ASSESSMENT [facility] Start: 04-04-2022 End: 06-04-2022 CBC panel - Blood by Automated count CBC Lab Routine Essential hypertension, benign Atrial fibrillation, unspecified type (HCC) Hypothyroidism, unspecified type Expected: 04/04/2022, Expires: 06/04/2022 [facility] Work Phone: Comment on above: Expected: 04/04/2022, Expires: 3 Start: 04-04-2022 End: 06-04-2022 Comprehensive metabolic 2000 panel - Serum or Plasma COMP METABOLIC PANEL Lab Routine Atherosclerosis of 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 coronary artery of 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 angina pectoris Expected: 04/04/2022 (Approximate), Expires: 06/04/2022 [facility] Work Phone: Comment on above: Expected: 04/04/2022 (Approximate), Expi res: 06/04/2022 Start: 04-04-2022 End: 06-04-2022 Lipid 1996 panel - Serum or Plasma LIPID PANEL BASIC Lab Routine Atherosclerosis of 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 coronary artery of 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 angina pectoris Expected: 04/04/2022 (Approximate), Expires: 06/04/2022 [facility] Work Phone: Comment on above: Expected: 04/04/2022 (Approximate), Expi res: 06/04/2022 Start: 04-04-2022 End: 06-04-2022 Thyrotropin [Units/volume] in Serum or Plasma TSH BLD Lab Routine Hypothyroidism, unspecified type Expected: 04/04/2022 (Approximate), Expires: 06/04/2022 [facility] Work Phone: Comment on above: Expected: 04/04/2022 (Approximate), Expi res: 06/04/2022 Start: 03-28-2022 Lipid panel Lipid Panel [facility] Start: 02-02-2022 End: 04-04-2022 PT panel - Platelet poor plasma by Coagulation assay PROTHROMBIN TIME/PT Lab Routine Personal history of venous thrombosis and embolism Expected: 02/02/2022, Expires: 04/04/2022 [facility] Work Phone: Comment on above: Expected: 02/02/2022, Expires: 2 Start: 01-26-2022 Influenza vaccination INFLUENZA (#1) [facility] Start: 11-10-2021 [facility] [place] Work Phone: Start: 08-10-2021 COVID-19 VACCINE (4 - Booster) COVID-19 VACCINE (4 - Booster) [facility] Start: 06-07-2021 COVID-19 VACCINE (4 - Booster) COVID-19 VACCINE (4 - Booster) [facility] Start: 05-28-2021 ADVANCE DIRECTIVE DISCUSSION ADVANCE DIRECTIVE DISCUSSION [facility] Start: 05-28-2021 DEPRESSION ASSESSMENT DEPRESSION ASSESSMENT [facility] Start: 09-25-2017 End: 03-30-2017 *Hepatic Function Panel *Hepatic Function Panel [facility] Work Phone: Start: 09-25-2017 End: 03-30-2017 Lipid panel [AGGREGATE] *Lipid Profile CC PCP [facility] Work Phone: Start: 07-19-2017 End: 07-19-2017 Appointment Appointment [facility] Work Phone: Start: 03-28-2017 End: 03-28-2017 *Hepatic Function Panel *Hepatic Function Panel [facility] Work Phone: Start: 03-28-2017 End: 03-28-2017 Lipid panel [AGGREGATE] *Lipid Profile CC PCP [facility] Work Phone: Start: 03-28-2017 End: 10-05-2016 *Hepatic Function Panel *Hepatic Function Panel [facility] Work Phone: Start: 03-28-2017 End: 10-05-2016 Lipid panel [AGGREGATE] *Lipid Profile CC PCP [facility] Work Phone: Start: 03-19-2017 End: 03-19-2017 Nuclear stress test -Lexiscan Nuclear stress test -Lexiscan [facility] Work Phone: Start: 01-11-2017 End: 01-11-2017 DJN DJN [facility] Work Phone: Start: 01-11-2017 End: 01-11-2017 Follow Up Appt 6 months Follow Up Appt 6 months [facility] Work Phone: Start: 01-11-2017 End: 01-11-2017 Appointment Appointment [facility] Work Phone: Start: 01-11-2017 End: 01-11-2017 Appointment Appointment [facility] Work Phone: Start: 01-11-2017 End: 01-11-2017 DJTyler MERRITTN [facility] Work Phone: Start: 01-11-2017 End: 01-11-2017 Follow Up Appt 6 months Follow Up Appt 6 months [facility] Work Phone: Start: 07-06-2016 End: 09-25-2016 *Hepatic Function Panel *Hepatic Function Panel [facility] Work Phone: Start: 07-06-2016 End: 07-06-2016 LORENZO MERRITTN [facility] Work Phone: Start: 07-06-2016 End: 07-06-2016 Follow Up Appt 6 months Follow Up Appt 6 months [facility] Work Phone: Start: 07-06-2016 End: 09-25-2016 Lipid panel [AGGREGATE] *Lipid Profile CC PCP [facility] Work Phone: Start: 07-06-2016 End: 09-25-2016 *Hepatic Function Panel *Hepatic Function Panel [facility] Work Phone: Start: 07-06-2016 End: 07-06-2016 DJTyler SHAINAN [facility] Work Phone: Start: 07-06-2016 End: 07-06-2016 Follow Up Appt 6 months Follow Up Appt 6 months [facility] Work Phone: Start: 07-06-2016 End: 09-25-2016 Lipid panel [AGGREGATE] *Lipid Profile CC PCP [facility] Work Phone: Start: 06-26-2016 End: 06-26-2016 Office outpatient visit 25 minutes [id number] Ofc Vst, Est Level IV [facility] Work Phone: Start: 06-26-2016 End: 06-26-2016 Office/outpatient visit, est, level 4 [id number] Ofc Vst, Est Level IV [facility] Work Phone: Start: 05-30-2016 End: 12-06-2015 *CBC with Differential *CBC with Differential [facility] Work Phone: Start: 05-30-2016 End: 12-06-2015 *CMP Complete Metabolic Panel *CMP Complete Metabolic Panel [facility] Work Phone: Start: 05-30-2016 End: 12-06-2015 Cancer antigen 125 *CA125 - Cancer Antigen (CA) 125 [facility] Work Phone: Start: 05-30-2016 End: 12-06-2015 Lactate dehydrogenase (LDH) *LDH -LDH (Lactate Dehydrogenase) [facility] Work Phone: Start: 05-30-2016 End: 12-06-2015 Urate *Uric Acid Blood [facility] Work Phone: Start: 05-30-2016 End: 12-06-2015 *CBC with Differential *CBC with Differential [facility] Work Phone: Start: 05-30-2016 End: 12-06-2015 *CMP Complete Metabolic Panel *CMP Complete Metabolic Panel [facility] Work Phone: Start: 05-30-2016 End: 12-06-2015 Cancer antigen 125 *CA125 - Cancer Antigen (CA) 125 [facility] Work Phone: Start: 05-30-2016 End: 12-06-2015 Lactate dehydrogenase (LDH) *LDH -LDH (Lactate Dehydrogenase) [facility] Work Phone: Start: 05-30-2016 End: 12-06-2015 Urate *Uric Acid Blood [facility] Work Phone: Start: 04-14-2016 End: 07-06-2016 *Hepatic Function Panel *Hepatic Function Panel [facility] Work Phone: Start: 04-14-2016 End: 07-06-2016 Lipid panel [AGGREGATE] *Lipid Profile CC PCP [facility] Work Phone: Start: 04-14-2016 End: 07-06-2016 *Hepatic Function Panel *Hepatic Function Panel [facility] Work Phone: Start: 04-14-2016 End: 07-06-2016 Lipid panel [AGGREGATE] *Lipid Profile CC PCP [facility] Work Phone: Start: 11-30-2015 End: 11-30-2015 *CBC with Differential *CBC with Differential [facility] Work Phone: Start: 11-30-2015 End: 11-30-2015 *CMP Complete Metabolic Panel *CMP Complete Metabolic Panel [facility] Work Phone: Start: 11-30-2015 End: 11-30-2015 Cancer antigen 125 *CA125 - Cancer Antigen (CA) 125 [facility] Work Phone: Start: 11-30-2015 End: 11-30-2015 Lactate dehydrogenase (LDH) *LDH -LDH (Lactate Dehydrogenase) [facility] Work Phone: Start: 11-30-2015 End: 11-30-2015 Urate *Uric Acid Blood [facility] Work Phone: Start: 11-30-2015 End: 11-30-2015 *CBC with Differential *CBC with Differential [facility] Work Phone: Start: 11-30-2015 End: 11-30-2015 *CMP Complete Metabolic Panel *CMP Complete Metabolic Panel [facility] Work Phone: Start: 11-30-2015 End: 11-30-2015 Cancer antigen 125 *CA125 - Cancer Antigen (CA) 125 [facility] Work Phone: Start: 11-30-2015 End: 11-30-2015 Lactate dehydrogenase (LDH) *LDH -LDH (Lactate Dehydrogenase) [facility] Work Phone: Start: 11-30-2015 End: 11-30-2015 Urate *Uric Acid Blood [facility] Work Phone: Start: 11-10-2015 End: 10-28-2015 Left Heart Cath W/Grafts Left Heart Cath W/Grafts [facility] Work Phone: Start: 11-10-2015 End: 10-28-2015 Left Heart Cath W/Grafts Left Heart Cath W/Grafts [facility] Work Phone: Start: 11-08-2015 End: 11-08-2015 LORENZO MERRITTN [facility] Work Phone: Start: 11-08-2015 End: 11-08-2015 Follow Up Appt 6 months Follow Up Appt 6 months [facility] Work Phone: Start: 11-08-2015 End: 11-08-2015 SHAINAN SHAINAN [facility] Work Phone: Start: 11-08-2015 End: 11-08-2015 Follow Up Appt 6 months Follow Up Appt 6 months [facility] Work Phone: Start: 10-28-2015 End: 10-28-2015 *BMP *BMP [facility] Work Phone: Start: 10-28-2015 End: 10-28-2015 aPTT *PTT-Partial Thromboplastin Time [facility] Work Phone: Start: 10-28-2015 End: 10-28-2015 CBC W Auto Differential panel - Blood *CBC without Diff [facility] Work Phone: Start: 10-28-2015 End: 05-26-2016 Chest x-ray X-Ray, Chest, PA & Lateral [facility] Work Phone: Start: 10-28-2015 End: 10-28-2015 Ecg routine ecg w/least 12 lds w/i&r EKG (In office) [facility] Work Phone: Start: 10-28-2015 End: 10-28-2015 INR Coag RelTime (PPP) *PT/INR [facility] Work Phone: Start: 10-28-2015 End: 10-28-2015 *BMP *BMP [facility] Work Phone: Start: 10-28-2015 End: 10-28-2015 aPTT *PTT-Partial Thromboplastin Time [facility] Work Phone: Start: 10-28-2015 End: 10-28-2015 aPTT Coag time (PPP) *PTT-Partial Thromboplastin Time [facility] Work Phone: Start: 10-28-2015 End: 10-28-2015 CBC W Auto Differential panel - Blood *CBC without Diff [facility] Work Phone: Start: 10-28-2015 End: 05-26-2016 Chest x-ray X-Ray, Chest, PA & Lateral [facility] Work Phone: Start: 10-28-2015 End: 10-28-2015 Coagulation factor induced.INR assay in platelet poor plasma *PT/INR [facility] Work Phone: Start: 10-28-2015 End: 10-28-2015 Electrocardiogram, complete EKG (In office) [facility] Work Phone: Start: 10-05-2015 End: 10-05-2015 LORENZO VENTURA [facility] Work Phone: Start: 10-05-2015 End: 10-05-2015 Follow Up Appt 6 months Follow Up Appt 6 months [facility] Work Phone: Start: 10-05-2015 End: 10-05-2015 Stress Echocardiogram - Dobutamine Stress Echocardiogram - Dobutamine [facility] Work Phone: Start: 10-05-2015 End: 10-05-2015 LORENZO VENTURA [facility] Work Phone: Start: 10-05-2015 End: 10-05-2015 Follow Up Appt 6 months Follow Up Appt 6 months [facility] Work Phone: Start: 10-05-2015 End: 10-05-2015 Stress Echocardiogram - Dobutamine Stress Echocardiogram - Dobutamine [facility] Work Phone: Start: 09-08-2015 End: 10-13-2015 *Hepatic Function Panel *Hepatic Function Panel [facility] Work Phone: Start: 09-08-2015 End: 10-13-2015 Lipid panel [AGGREGATE] *Lipid Profile CC PCP [facility] Work Phone: Start: 09-08-2015 End: 10-13-2015 *Hepatic Function Panel *Hepatic Function Panel [facility] Work Phone: Start: 09-08-2015 End: 10-13-2015 Lipid panel [AGGREGATE] *Lipid Profile CC PCP [facility] Work Phone: Start: 08-23-2015 Respiratory Syncytial Virus Immunization: Risk, 60-74 Risk, or 75+ (1 - 1-dose 75+ series) Respiratory Syncytial Virus Immunization: Risk, 60-74 Risk, or 75+ (1 - 1-dose 75+ series) [facility] Start: 08-23-2015 RSV Immunization for Adults (1 - 1-dose 75+ series) RSV Immunization for Adults (1 - 1-dose 75+ series) [facility] Start: 08-23-2015 RSV Vaccine (1 - 1-dose 75+ series) RSV Vaccine (1 - 1-dose 75+ series) [facility] Start: 06-10-2015 End: 06-10-2015 Orthopedic Referral Orthopedic Referral Paco Hanks MD, [facility], [facility] [address], [place], [address] [facility] Work Phone: Start: 06-10-2015 End: 06-10-2015 Orthopedic Referral Orthopedic Referral Paco Hanks MD, [facility], [facility] [address], [place], [address] [facility] Work Phone: Start: 06-02-2015 End: 11-30-2015 *CBC with Differential *CBC with Differential [facility] Work Phone: Start: 06-02-2015 End: 06-02-2015 *CMP Complete Metabolic Panel *CMP Complete Metabolic Panel [facility] Work Phone: Start: 06-02-2015 End: 06-03-2015 Cancer antigen 125 *CA125 - Cancer Antigen (CA) 125 [facility] Work Phone: Start: 06-02-2015 End: 06-02-2015 Lactate dehydrogenase (LDH) *LDH -LDH (Lactate Dehydrogenase) [facility] Work Phone: Start: 06-02-2015 End: 06-02-2015 Urate *Uric Acid Blood [facility] Work Phone: Start: 06-02-2015 End: 11-30-2015 *CBC with Differential *CBC with Differential [facility] Work Phone: Start: 06-02-2015 End: 06-02-2015 *CMP Complete Metabolic Panel *CMP Complete Metabolic Panel [facility] Work Phone: Start: 06-02-2015 End: 06-03-2015 Cancer antigen 125 *CA125 - Cancer Antigen (CA) 125 [facility] Work Phone: Start: 06-02-2015 End: 06-02-2015 Lactate dehydrogenase (LDH) *LDH -LDH (Lactate Dehydrogenase) [facility] Work Phone: Start: 06-02-2015 End: 06-02-2015 Urate *Uric Acid Blood [facility] Work Phone: Start: 04-05-2015 End: 04-05-2015 DJTyler DJN [facility] Work Phone: Start: 04-05-2015 End: 04-05-2015 Follow Up Appt 6 months Follow Up Appt 6 months [facility] Work Phone: Start: 04-05-2015 End: 04-05-2015 DJN SHAINAN [facility] Work Phone: Start: 04-05-2015 End: 04-05-2015 Follow Up Appt 6 months Follow Up Appt 6 months [facility] Work Phone: Start: 03-03-2015 End: 03-07-2015 *Hepatic Function Panel *Hepatic Function Panel [facility] Work Phone: Start: 03-03-2015 End: 03-09-2015 Lipid panel [AGGREGATE] *Lipid Profile CC PCP [facility] Work Phone: Start: 03-03-2015 End: 03-07-2015 *Hepatic Function Panel *Hepatic Function Panel [facility] Work Phone: Start: 03-03-2015 End: 03-09-2015 Lipid panel [AGGREGATE] *Lipid Profile CC PCP [facility] Work Phone: Start: 11-25-2014 End: 11-30-2015 *CBC with Differential *CBC with Differential [facility] Work Phone: Start: 11-25-2014 End: 11-30-2014 *CMP Complete Metabolic Panel *CMP Complete Metabolic Panel [facility] Work Phone: Start: 11-25-2014 End: 12-02-2014 Cancer antigen 125 *CA125 - Cancer Antigen (CA) 125 [facility] Work Phone: Start: 11-25-2014 End: 11-30-2014 Lactate dehydrogenase (LDH) *LDH -LDH (Lactate Dehydrogenase) [facility] Work Phone: Start: 11-25-2014 End: 11-30-2014 Urate *Uric Acid Blood [facility] Work Phone: Start: 11-25-2014 End: 11-30-2015 *CBC with Differential *CBC with Differential [facility] Work Phone: Start: 11-25-2014 End: 11-30-2014 *CMP Complete Metabolic Panel *CMP Complete Metabolic Panel [facility] Work Phone: Start: 11-25-2014 End: 12-02-2014 Cancer antigen 125 *CA125 - Cancer Antigen (CA) 125 [facility] Work Phone: Start: 11-25-2014 End: 11-30-2014 Lactate dehydrogenase (LDH) *LDH -LDH (Lactate Dehydrogenase) [facility] Work Phone: Start: 11-25-2014 End: 11-30-2014 Urate *Uric Acid Blood [facility] Work Phone: Start: 09-07-2014 End: 09-07-2014 DJN DJN [facility] Work Phone: Start: 09-07-2014 End: 09-07-2014 Follow Up Appt 6 months Follow Up Appt 6 months [facility] Work Phone: Start: 09-07-2014 End: 09-07-2014 DJN DJN [facility] Work Phone: Start: 09-07-2014 End: 09-07-2014 Follow Up Appt 6 months Follow Up Appt 6 months [facility] Work Phone: Start: 08-31-2014 End: 08-31-2014 *Hepatic Function Panel *Hepatic Function Panel [facility] Work Phone: Start: 08-31-2014 End: 08-31-2014 Lipid panel [AGGREGATE] *Lipid Profile CC PCP [facility] Work Phone: Start: 08-31-2014 End: 08-31-2014 *Hepatic Function Panel *Hepatic Function Panel [facility] Work Phone: Start: 08-31-2014 End: 08-31-2014 Lipid panel [AGGREGATE] *Lipid Profile CC PCP [facility] Work Phone: Start: 05-25-2014 End: 11-30-2015 *CBC with Differential *CBC with Differential [facility] Work Phone: Start: 05-25-2014 End: 11-30-2015 *Creatinine, Serum *Creatinine, Serum [facility] Work Phone: Start: 05-25-2014 End: 11-30-2015 Cancer antigen 125 *CA125 - Cancer Antigen (CA) 125 [facility] Work Phone: Start: 05-25-2014 End: 11-30-2015 Urea nitrogen *BUN [facility] Work Phone: Start: 05-25-2014 End: 11-30-2015 *CBC with Differential *CBC with Differential [facility] Work Phone: Start: 05-25-2014 End: 11-30-2015 *Creatinine, Serum *Creatinine, Serum [facility] Work Phone: Start: 05-25-2014 End: 11-30-2015 Cancer antigen 125 *CA125 - Cancer Antigen (CA) 125 [facility] Work Phone: Start: 05-25-2014 End: 11-30-2015 Urea nitrogen *BUN [facility] Work Phone: Start: 01-26-2014 End: 02-27-2014 *Hepatic Function Panel *Hepatic Function Panel [facility] Work Phone: Start: 01-26-2014 End: 02-27-2014 Lipid panel [AGGREGATE] *Lipid Profile CC PCP [facility] Work Phone: Start: 01-26-2014 End: 02-27-2014 *Hepatic Function Panel *Hepatic Function Panel [facility] Work Phone: Start: 01-26-2014 End: 02-27-2014 Lipid panel [AGGREGATE] *Lipid Profile CC PCP [facility] Work Phone: Start: 10-13-2013 End: 10-13-2013 Ct abdomen w/o & w/contrast material CT Abdomen with and without Contrast [facility] Work Phone: Start: 10-13-2013 End: 10-13-2013 Ct thorax w/o & w/contrast material CT Chest with and without Contrast [facility] Work Phone: Start: 10-13-2013 End: 10-13-2013 LORENZO VENTURA [facility] Work Phone: Start: 10-13-2013 End: 10-13-2013 Follow Up Appt 1 year Follow Up Appt 1 year [facility] Work Phone: Start: 10-13-2013 End: 10-13-2013 Pulmonary Fuction Test - complete Pulmonary Fuction Test - complete [facility] Work Phone: Start: 10-13-2013 End: 10-13-2013 Ct abdomen w/o & w/dye CT Abdomen with and without Contrast [facility] Work Phone: Start: 10-13-2013 End: 10-13-2013 Ct thorax w/o & w/dye CT Chest with and without Contrast [facility] Work Phone: Start: 10-13-2013 End: 10-13-2013 LORENZO VENTURA [facility] Work Phone: Start: 10-13-2013 End: 10-13-2013 Follow Up Appt 1 year Follow Up Appt 1 year [facility] Work Phone: Start: 10-13-2013 End: 10-13-2013 Pulmonary Fuction Test - complete Pulmonary Fuction Test - complete [facility] Work Phone: Start: 10-08-2013 End: 10-09-2013 *BMP *BMP [facility] Work Phone: Start: 10-08-2013 End: 10-09-2013 *CBC with Differential *CBC with Differential [facility] Work Phone: Start: 10-08-2013 End: 10-09-2013 INR Coag RelTime (PPP) *PT/INR [facility] Work Phone: Start: 10-08-2013 End: 10-09-2013 *BMP *BMP [facility] Work Phone: Start: 10-08-2013 End: 10-09-2013 *CBC with Differential *CBC with Differential [facility] Work Phone: Start: 10-08-2013 End: 10-09-2013 Coagulation factor induced.INR assay in platelet poor plasma *PT/INR [facility] Work Phone: Start: 07-26-2013 End: 08-16-2013 *Hepatic Function Panel *Hepatic Function Panel [facility] Work Phone: Start: 07-26-2013 End: 08-16-2013 Lipid panel [AGGREGATE] *Lipid Profile CC PCP [facility] Work Phone: Start: 07-26-2013 End: 08-16-2013 *Hepatic Function Panel *Hepatic Function Panel [facility] Work Phone: Start: 07-26-2013 End: 08-16-2013 Lipid panel [AGGREGATE] *Lipid Profile CC PCP [facility] Work Phone: Start: 04-09-2013 End: 04-09-2013 *BMP *BMP [facility] Work Phone: Start: 04-09-2013 End: 04-09-2013 INR Coag RelTime (PPP) *PT/INR [facility] Work Phone: Start: 04-09-2013 End: 04-09-2013 *BMP *BMP [facility] Work Phone: Start: 04-09-2013 End: 04-09-2013 Coagulation factor induced.INR assay in platelet poor plasma *PT/INR [facility] Work Phone: Start: 04-03-2013 End: 04-03-2013 Ecg routine ecg w/least 12 lds w/i&r EKG (In office) [facility] Work Phone: Start: 04-03-2013 End: 04-03-2013 Follow Up Appt Other Follow Up Appt Other [facility] Work Phone: Start: 04-03-2013 End: 04-03-2013 Follow Up Appt Other Follow Up Appt Other [facility] Work Phone: Start: 04-02-2013 End: 04-03-2013 *BMP *BMP [facility] Work Phone: Start: 04-02-2013 End: 04-03-2013 aPTT *PTT-Partial Thromboplastin Time [facility] Work Phone: Start: 04-02-2013 End: 04-03-2013 CBC W Auto Differential panel - Blood *CBC without Diff [facility] Work Phone: Start: 04-02-2013 End: 10-08-2013 Chest x-ray X-Ray, Chest, PA & Lateral [facility] Work Phone: Start: 04-02-2013 End: 04-03-2013 Electrocardiogram, complete EKG (In office) [facility] Work Phone: Start: 04-02-2013 End: 04-03-2013 INR Coag RelTime (PPP) *PT/INR [facility] Work Phone: Start: 04-02-2013 End: 04-02-2013 Left Heart Cath W/Grafts Left Heart Cath W/G[facility] Work Phone: Start: 04-02-2013 End: 04-03-2013 *BMP *BMP [facility] Work Phone: Start: 04-02-2013 End: 04-03-2013 aPTT *PTT-Partial Thromboplastin Time [facility] Work Phone: Start: 04-02-2013 End: 04-03-2013 aPTT Coag time (PPP) *PTT-Partial Thromboplastin Time [facility] Work Phone: Start: 04-02-2013 End: 04-03-2013 CBC W Auto Differential panel - Blood *CBC without Diff [facility] Work Phone: Start: 04-02-2013 End: 10-08-2013 Chest x-ray X-Ray, Chest, PA & Lateral [facility] Work Phone: Start: 04-02-2013 End: 04-03-2013 Coagulation factor induced.INR assay in platelet poor plasma *PT/INR [facility] Work Phone: Start: 04-02-2013 End: 04-03-2013 Electrocardiogram, complete EKG (In office) [facility] Work Phone: Start: 04-02-2013 End: 04-02-2013 Left Heart Cath W/Grafts Left Heart Cath W/Grafts [facility] Work Phone: Start: 03-18-2013 End: 10-08-2013 Office outpatient visit 5 minutes Nurse Visit (fee charged) [facility] Work Phone: Start: 03-18-2013 End: 10-08-2013 Office/outpatient visit, est, level 1 Nurse Visit (fee charged) [facility] Work Phone: Start: 03-04-2013 End: 04-03-2013 *CBC with Differential *CBC with Differential [facility] Work Phone: Start: 03-04-2013 End: 03-04-2013 DJN DJN [facility] Work Phone: Start: 03-04-2013 End: 03-04-2013 Echocardiography Echocardiogram (complete) [facility] Work Phone: Start: 03-04-2013 End: 03-04-2013 Follow Up Appt 1 year Follow Up Appt 1 year [facility] Work Phone: Start: 03-04-2013 End: 03-04-2013 INR Coag RelTime (PPP) *PT/INR - Standing Order [facility] Work Phone: Start: 03-04-2013 End: 03-04-2013 Stress Echocardiogram (treadmill) Stress Echocardiogram (treadmill) [facility] Work Phone: Start: 03-04-2013 End: 04-03-2013 Thyroid stimulating hormone (TSH) *TSH [facility] Work Phone: Start: 03-04-2013 End: 04-03-2013 *CBC with Differential *CBC with Differential [facility] Work Phone: Start: 03-04-2013 End: 03-04-2013 Coagulation factor induced.INR assay in platelet poor plasma *PT/INR - Standing Order [facility] Work Phone: Start: 03-04-2013 End: 03-04-2013 SHAINAN DJN [facility] Work Phone: Start: 03-04-2013 End: 03-04-2013 Echocardiography Echocardiogram (complete) [facility] Work Phone: Start: 03-04-2013 End: 03-04-2013 Follow Up Appt 1 year Follow Up Appt 1 year [facility] Work Phone: Start: 03-04-2013 End: 03-04-2013 Stress Echocardiogram (treadmill) Stress Echocardiogram (treadmill) [facility] Work Phone: Start: 03-04-2013 End: 04-03-2013 Thyroid stimulating hormone (TSH) *TSH [facility] Work Phone: Start: 02-19-2013 End: 01-31-2013 *Hepatic Function Panel *Hepatic Function Panel [facility] Work Phone: Start: 02-19-2013 End: 02-26-2013 Lipid panel [AGGREGATE] *Lipid Profile [facility] Work Phone: Start: 02-19-2013 End: 01-31-2013 *Hepatic Function Panel *Hepatic Function Panel [facility] Work Phone: Start: 02-19-2013 End: 02-26-2013 Lipid panel [AGGREGATE] *Lipid Profile [facility] Work Phone: Start: 08-20-2012 End: 08-20-2012 Follow Up Appt 6 months Follow Up Appt 6 months [facility] Work Phone: Start: 08-20-2012 End: 08-20-2012 Follow Up Appt 6 months Follow Up Appt 6 months [facility] Work Phone: Start: 02-19-2012 End: 02-19-2012 *Hepatic Function Panel *Hepatic Function Panel [facility] Work Phone: Start: 02-19-2012 End: 02-19-2012 Follow Up Appt 6 months Follow Up Appt 6 months [facility] Work Phone: Start: 02-19-2012 End: 02-25-2012 Lipid panel [AGGREGATE] *Lipid Profile [facility] Work Phone: Start: 02-19-2012 End: 02-19-2012 *Hepatic Function Panel *Hepatic Function Panel [facility] Work Phone: Start: 02-19-2012 End: 02-19-2012 Follow Up Appt 6 months Follow Up Appt 6 months [facility] Work Phone: Start: 02-19-2012 End: 02-25-2012 Lipid panel [AGGREGATE] *Lipid Profile [facility] Work Phone: Start: 02-09-2012 Administration of herpes zoster vaccine Zoster Vaccines (2 of 3) [facility] Start: 02-09-2012 SHINGRIX VACCINE (1 of 2) SHINGRIX VACCINE (1 of 2) [facility] Start: 02-09-2012 SHINGRIX VACCINE (2 of 3) SHINGRIX VACCINE (2 of 3) [facility] Start: 02-09-2012 Zoster Vaccines (2 of 3) Zoster Vaccines (2 of 3) [facility] Start: 09-27-2011 End: 09-26-2011 *Hepatic Function Panel *Hepatic Function Panel [facility] Work Phone: Start: 09-27-2011 End: 09-26-2011 Lipid panel [AGGREGATE] *Lipid Profile [facility] Work Phone: Start: 09-27-2011 End: 09-26-2011 *Hepatic Function Panel *Hepatic Function Panel [facility] Work Phone: Start: 09-27-2011 End: 09-26-2011 Lipid panel [AGGREGATE] *Lipid Profile [facility] Work Phone: Start: 08-25-2011 End: 08-25-2011 Follow Up Appt 6 months Follow Up Appt 6 months [facility] Work Phone: Start: 08-25-2011 End: 08-25-2011 Follow Up Appt 6 months Follow Up Appt 6 months [facility] Work Phone: Start: 07-03-2011 End: 07-03-2011 24 hour holter monitor 24 hour holter monitor [facility] Work Phone: Start: 07-03-2011 End: 07-03-2011 Carotid duplex Carotid duplex [facility] Work Phone: Start: 07-03-2011 End: 07-03-2011 Echocardiography Echocardiogram (complete) [facility] Work Phone: Start: 07-03-2011 End: 07-03-2011 Follow Up Appt 6 weeks Follow Up Appt 6 weeks [facility] Work Phone: Start: 07-03-2011 End: 07-03-2011 Nuclear stress test -adenosine Nuclear stress test -adenosine [facility] Work Phone: Start: 07-03-2011 End: 07-03-2011 24 hour holter monitor 24 hour holter monitor [facility] Work Phone: Start: 07-03-2011 End: 07-03-2011 Carotid duplex Carotid duplex [facility] Work Phone: Start: 07-03-2011 End: 07-03-2011 Echocardiography Echocardiogram (complete) [facility] Work Phone: Start: 07-03-2011 End: 07-03-2011 Follow Up Appt 6 weeks Follow Up Appt 6 weeks [facility] Work Phone: Start: 07-03-2011 End: 07-03-2011 Nuclear stress test -adenosine Nuclear stress test -adenosine [facility] Work Phone: Start: 2005 Fall risk assessment Falls Risk Assessment [facility] Start: 07-26-2005 Medicare Annual Wellness Visit Medicare Annual Wellness Visit [facility] Start: 2000 RSV Vaccine (1 - 1-dose 60+ series) RSV Vaccine (1 - 1-dose 60+ series) [facility] Start: 1990 Administration of herpes zoster vaccine Zoster Vaccines (1 of 2) [facility] Start: 1990 Pneumococcal Vaccine: Age 50+ (1 of 1 - PCV) Pneumococcal Vaccine: Age 50+ (1 of 1 - PCV) [facility] Start: 1952 Depression Screening [facility] Start: 08-23-1943 Medicare Wellness Visit Medicare Wellness Visit [facility] Start: 1940 Alanine aminotransferase measurement CLASS III : ALT [facility] Start: 1940 CLASS III : AST CLASS III : AST [facility] Start: 1940 CLASS III : Chest Radiograph CLASS III : Chest Radiograph [facility] Start: 1940 CLASS III : EKG CLASS III : EKG [facility] Start: 1940 Creatinine measurement Creatinine Level [facility] Start: 1940 Echocardiography Echocardiogram [facility] Start: 1940 Medicare Annual Wellness (AWV) Medicare Annual Wellness (AWV) [facility] Start: 1940 Potassium measurement Potassium Level [facility] Start: 1940 Screening for osteoporosis [facility] Start: 1940 Tetanus vaccination Tetanus: Every 10yrs [facility] Start: 1940 Thyroid stimulating hormone measurement Class III : TSH [facility] End: 01-15-2029 12 lead ECG ECG 12 Lead ECG Routine Persistent atrial fibrillation (HCC) 15 Occurrences starting 01/15/2025 until 01/15/2029 [facility] Work Phone: Comment on above: 15 Occurrences starting 01/15/2025 until 01/15/[address] [facility] Work Phone: Bacteria identified in Urine by Culture URINE CULTURE Microbiology Routine Dysuria 09/09/2021 10:54 AM EDT [facility] Work Phone: Bacteria identified in Urine by Culture URINE CULTURE Microbiology Routine Painful urination 11/21/2021 11:52 AM EDT [facility] Work Phone: Bacteria identified in Urine by Culture URINE CULTURE Microbiology Routine Urinary frequency Burning with urination 02/01/2022 11:35 AM EDT [facility] Work Phone: Bacteria identified in Urine by Culture URINE CULTURE Microbiology Routine Urinary frequency Ordered: 02/21/2022 [facility] Work Phone: Comment on above: Ordered: 02/21/2022 Bacteria identified in Urine by Culture URINE CULTURE Microbiology Routine Urinary frequency Ordered: 02/09/2023 [facility] Work Phone: Comment on above: Ordered: 02/09/2023 Bacteria identified in Urine by Culture URINE CULTURE Microbiology Routine Acute UTI Ordered: 05/17/2024 [facility] Work Phone: Comment on above: Ordered: 05/17/2024 End: 01-21-2026 Basic metabolic 2000 panel - Serum or Plasma Basic metabolic panel Lab Routine Persistent atrial fibrillation (HCC) 1 Occurrences starting 01/21/2025 until 01/21/2026 [facility] Comment on above: 1 Occurrences starting 01/21/2025 until 01/21/2026 Blood chemistry [facility] Work Phone: Cardioversion [facility] Work Phone: Cardioversion [facility] Cardioversion [facility] End: 11-24-2024 Cardioversion external [facility] Work Phone: Comment on above: Once for 1 Occurrences starting 11/25/19 until 11/24/2024 Catheterization of l eft heart [facility] End: 01-21-2026 Complete blood count with white cell differential, manual CBC and differential Lab Routine Persistent atrial fibrillation (HCC) 1 Occurrences starting 01/21/2025 until 01/21/2026 [facility] Comment on above: 1 Occurrences starting 01/21/2025 until 01/21/2026 ECG 12 lead - CLINIC PERFORMED ECG 12 lead - CLINIC PERFORMED CV ECG Routine Left ventricular hypertrophy 11/11/2024 10:46 AM EDT [facility] ECG 12 lead - CLINIC PERFORMED ECG 12 lead - CLINIC PERFORMED CV ECG Routine Acute on chronic systolic heart failure (HCC) 12/01/2024 3:52 PM EDT [facility] Work Phone: End: 09-02-2022 INR in Platelet poor plasma by Coagulation assay INR (POC) Lab Routine Personal history of venous thrombosis and embolism Once per month for 99 Occurrences starting 09/02/2021 until 09/02/2022 [facility] Work Phone: Comment on above: Once per month for 99 Occurrences starti ng 09/02/2021 until 09/02/2022 Measurement of respiratory function [facility] Work Phone: End: 11-09-2024 MG Breast Screening HERMELINDA SCREENING Radiology Routine Encounter for screening mammogram for malignant neoplasm of breast 1 Occurrences starting 10/11/2023 until 11/09/2024 [facility] Work Phone: Comment on above: 1 Occurrences starting 10/11/2023 until 11/09/2024 MG Breast Screening HERMELINDA SCREENIN G Radiology Routine Encounter for screening mammogram for malignant neoplasm of breast 10/11/2023 11:34 AM EDT [facility] Patient Education [facility] Work Phone: Patient referral [facility] Work Phone: End: 09-02-2022 PT panel - Platelet poor plasma by Coagulation assay PROTHROMBIN TIME/PT Lab STAT Personal history of venous thrombosis and embolism Once per month for 99 Occurrences starting 09/02/2021 until 09/02/2022 [facility] Work Phone: Comment on above: Once per month for 99 Occurrences starti ng 09/02/2021 until 09/02/2022 [facility] Immunizations Immunization Date Immunization Notes Care Provider Fa [facility] 02-26-2024 COVID-19 vaccine, ag e 12+ yr, bivalent (PFIZER-BIONTECH) Samantha Reyes MD Work Phone: [facility] 02-26-2024 influenza, high dose seasonal, preservative-free Samantha Reyes MD Work Phone: [facility] 02-26-2024 influenza virus vaccine, unspecified formulation [facility] 10-11-2023 COVID-19 vaccine, ag e 12+ yr, season (PFIZER-BIONTECH) Samantha Reyes MD Work Phone: [facility] 04-27-2023 COVID-19 vaccine, ag e 12+ yr, season (PFIZER-BIONTECH) Immunization [facility] Work Phone: [facility] Work Phone: 02-15-2023 influenza (aIIV4) vaccine, age 65+ yr, quadrivalent, PF (FLUAD QUAD) Samantha Reyes MD Work Phone: [facility] 02-15-2023 influenza virus vaccine, unspecified formulation Xr [facility] Work Phone: [facility] 05-05-2022 COVID-19 booster vaccine, age 12+ yr, bivalent (PFIZER-BIONTECH) Samantha Reyes MD Work Phone: [facility] 04-13-2022 influenza virus vaccine, unspecified formulation Derick Atkins MD Work Phone: [facility] 06-16-2020 COVID-19 vaccine (UNSPECIFIED) Samantha Reyes MD Work Phone: [facility] 02-27-2020 influenza, high-dose , quadrivalent vaccine (FLUZONE HIGH DOSE QUADRIVALENT) Samantha Reyes MD Work Phone: [facility] 03-13-[address] Samantha Reyes Work Phone: [facility] [place] 03-13-2019 influenza, seasonal, injectable, preservative free Samantha Reyes MD Work Phone: [facility] 02-11-2019 influenza, high dose seasonal, preservative-free Samantha Reyes MD Work Phone: [facility] 02-11-2019 pneumococcal conjuga te vaccine, 13 valent Samantha Reyes MD Work Phone: [facility] 03-13-[address] Samantha Reyes Work Phone: [facility] 03-13-2018 influenza, seasonal, injectable, preservative free Samantha Reyes MD Work Phone: [facility] 02-25-2018 influenza, high dose seasonal, preservative-free Samantha Reyes MD Work Phone: [facility] 04-23-2017 pneumococcal polysaccharide vaccine, 23 valent Samantha Reyes MD Work Phone: [facility] 03-15-2017 influenza, high dose seasonal, preservative-free Samantha Reyes MD Work Phone: [facility] 03-02-[address] Samantha Reyes Work Phone: [facility] 03-02-2017 influenza, seasonal, injectable, preservative free Samantha Reyes MD Work Phone: [facility] 07-13-2016 tetanus toxoid, redu ezekiel diphtheria toxoid, and acellular pertussis vaccine, adsorbed Samantha Reyes MD Work Phone: [facility] 04-06-2015 pneumococcal conjuga te vaccine, 13 valent Samantha Reyes MD Work Phone: [facility] Work Phone: 02-24-2015 influenza, high dose seasonal, preservative-free Samantha Reyes MD Work Phone: [facility] Work Phone: 03-06-2014 influenza, high dose seasonal, preservative-free Samantha Reyes MD Work Phone: [facility] 03-07-2013 influenza virus vaccine, unspecified formulation Samantha Reeys MD Work Phone: [facility] 03-11-2012 influenza virus vaccine, unspecified formulation Samantha Reyes MD Work Phone: [facility] 12-15-2011 zoster vaccine, live Samantha mora MD Work Phone: [facility] 02-25-2011 influenza virus vaccine, unspecified formulation Samantha Reyes MD Work Phone: [facility] Work Phone: 03-15-2009 influenza virus vaccine, unspecified formulation Samantha Reyes MD Work Phone: [facility] Work Phone: 03-20-2005 influenza virus vaccine, whole virus Samantha Reyes MD Work Phone: [facility] Work Phone: 03-20-2005 pneumococcal polysaccharide vaccine, 23 valent Samantha Reyes MD Work Phone: [facility] Work Phone: 12-03-2004 diphtheria and tetan us toxoids, adsorbed for pediatric use Samantha Reyes MD Work Phone: [facility] Payers Date Payer Category Payer Commercial Managed C are - [place] [facility] [id number] 2024 Managed Care HMO (unspecified) [id number] 2024 Medicare HMO [id number] 2024 Self-pay [id number] [address] [facility] CHOICE PLUS [id number] 2018-Present [phone] [address] [place] [address] HMO [id number] 2018 Private Health Insurance [id number] 2018 Private Health Insurance [id number] 2012 Unknown [id number] 2005 Medicare MEDICARE MEDICAR E A AND B [id number] 2005-Present [phone] [place] [address] Medicare [id number] 2005 Medicare [id number] 2005 Medicare [id number] 1940 Unknown [id number]. 2.903 1940 Unknown [id number]. 2.903 1940 Unknown [id number] 2.16.840.1.106355.3.579. 2.903 1940 Unknown [id number] 2.16.840.1.300996.3.579. 2.903 1940 Unknown [id number] 2.16.840.1.069933.3.579. 2.903 Unknown [id number] 2.840.1.031768.3.579. 2.462 Unknown [id number] 2.16.840.1.649004.3.579. 2.462 Unknown [id number] 2.16.840.1.943682.3.579. 2.462 Unknown [id number] 2.16.840.1.049522.3.579. 2.462 Unknown [id number]. 2.462 Unknown [id number] 2.16.840.1.071818.3.579. 2.462 Unknown [id number] 2.16840.1.629692.3.579. 2.462 Unknown [id number] 2.16.840.1.972858.3.579. 2.462 Unknown [id number] 2.16.840.1.244058.3.579. 2.462 Unknown [id number] 2.16.840.1.454584.3.579. 2.462 Unknown [id number] 2.16.840.1.985144.3.579. 2.462 Unknown [id number] 2.16.840.1.586367.3.579. 2.462 Unknown [id number] 2.16.840.1.922579.3.579. 2.462 Unknown [id number] 2.16.840.1.280913.3.579. 2.462 Unknown [id number] 2.16.840.1.312776.3.579. 2.462 Unknown [id number] 2.16.840.1.524644.3.579. 2.462 Unknown [id number] [id number]. 2.462 Unknown [id number]. 2.462 Social History Date Type Detail Facility Start: 01-02-2022 End: 01-05-2025 Tobacco smoking status DEIS Ex-smoker [facility] Work Phone: Start: 03-14-1970 End: 03-14-2000 History of tobacco use Current smoker [facility] Work Phone: Start: 03-14-1970 End: 03-14-2000 History of tobacco use Cigarette Smoker [facility] Work Phone: Start: 07-04-2021 End: 01-21-2025 Alcohol intake Current drinker of alcohol (finding) [facility] Start: 10-28-2013 History SDOH Alcohol Comment Rarely. [facility] Start: 10-28-2013 End: 01-02-2022 Tobacco Comment Parents smoked in childhood home. Spouse smoked pipe and cigar occasionally in home. [facility] Start: 1940 Sex Assigned At Not on file [facility] Start: 08-15-2020 End: 04-04-2022 Exposure to SARS-CoV-2 (event) Not sure [facility] Start: 09-04-2021 End: 09-14-2021 Exposure to SARS-CoV-2 (event) Unable to assess [facility] Start: 04-07-2021 End: 04-13-2023 Tobacco smoking status NHIS Unknown if ever smoked [facility] Start: 07-14-2019 None [facility] Start: 07-13-2019 Spouse/ Signif icant Other [facility] Start: 07-08-2020 Cigarettes [facility] Start: 1940 Sex Assigned At Female [facility] Start: 01-02-2022 End: 01-21-2025 Cigarettes smoked current (pack per day) - Reported 0.5 [facility] Work Phone: Start: 01-02-2022 End: 01-05-2025 Tobacco use and exposure Smokeless tobacco non-user [facility] Start: 10-05-2022 End: 01-21-2025 Tobacco use panel [facility] Work Phone: Adult Depression Screening Assessment 0 [facility] Work Phone: Start: 10-05-2022 Sexual orientation Heterosexual (fin ding) [facility] Start: 11-11-2024 [facility] Start: 10-10-2024 Sex Female (finding) [facility] Start: 10-10-2024 Gender identity Identifies as female gender (finding) [facility] How often to you hav e a drink containing alcohol? Never [facility] Goals Date Patient Goal Desired Activity /State Personal health goal Functional Status Date Assessment Result Facility 12-01-2024 Total score [AUDIT-C] 0 12/02/19 25 5:02 PM EDT Ana Rosa Blackmon RN [facility] 11-10-2014 Are you deaf, or do you have serious difficulty hearing No 11/10/2014 2:51 PM EDT Asia Smith MA No [facility] 11-10-2014 Are you blind, or do you have serious difficulty seeing, even when wearing glasses No 11/10/2014 2:51 PM EDT Asia Smith MA No [facility] 11-10-2014 Do you have serious difficulty walking or climbing stairs No 11/10/2014 2:51 PM EDT Asia Smith MA No [facility] 11-10-2014 Do you have difficul ty dressing or bathing No 11/10/2014 2:51 PM EDT Asia Smith MA No [facility] 11-10-2014 Because of a physica l, mental, or emotional condition, do you have difficulty doing errands alone such as visiting a physician's office or shopping No 11/10/2014 2:51 PM EDT SarahAsiaROSEMARIE [facility] Mental Status Date Assessment Result Facility 04-08-2023 Cognitive function Voice/Name [facility] Work Phone: 03-21-2023 Cognitive function Awake;Alert;A ppropriate;Fol lows Commands [facility] Work Phone: 11-10-2021 Cognitive function Level Of Cons ciousness Awake;Alert;Appropriate;Fol lows Commands [facility] Work Phone: 11-10-2014 Because of a physica l, mental, or emotional condition, do you have serious difficulty concentrating, remembering, or making decisions No 11/10/2014 2:51 PM EDT Miguel SmithathROSEMARIE billings [facility] Clinical Notes 09-14-2020 to 01-27-2025 Telephone Encounter - Maya Blum RN - 01/27/2025 11:19 AM EDTTelephone Encounter - Maya Blum RN - 01/27/2025 11:19 AM EDTMiryam Tejeda MD - 01/21/2025 9:32 AM EDT Note Date & Type Note Facility 01-27-2025 Telephone encounter Note Spoke with patient. Reviewed echocardiogram results. Moved ablation up to 02/02 (cancellation spot). Preprocedure instructions reviewed. Patient is going to go get lab work done this week. All questions answered. Patient verbalized understanding and denied further assistance [facility] 01-27-2025 Miscellaneous Notes Spoke with patient. Reviewed echocardiogram results. Moved ablation up to Sumit 9/8 0600/0800 (cancellation spot). Preprocedure instructions reviewed. Patient is going to go get lab work done this week. All questions answered. Patient verbalized understanding and denied further assistance documented in this encounter [facility] 01-21-2025 Note Heart & Vascular Cli essie Note [facility] Visit Date: 01/21/2025 Patient Name: Sandrine Rivers : 1940 Reason for Visit: Initial Visit (Intake) (Afib discuss Rhythm control ) ASSESSMENT: #Paroxysmal A.fib/Flutter : s/p DCCV x 2 and has been on amiodarone. Unfortunately, still has paroxysms of A.fib/flutter. Was in sinus in November and felt significantly better. Only lasted a day. She complains of SOB, palpitations. I discussed treatment options with her including trying a Class III agent vs pursuing an ablation. I also explained the risks of the pulmonary vein isolation which includes a 2% risk of adverse events most commonly bleeding and/or vascular injury, but also less commonly renal injury, thromboembolism, cardiac perforation requiring emergent surgery or carito-cardiocentesis, PV stenosis, esophageal injury or fistula, phrenic nerve injury, stroke, myocardial infarction and/or . The patient wishes to proceed with catheter ablation. #CAD s/p CABG, s/p PCI to LAD. #HFrEF LVEF-35-40%. #Moderate to severe TR. #Hypothyroidism #CKD #ECHO: Pending. PLAN: --Pursue an RF ablation for A.Fib/flutter --c/w amiodarone for now. --c/w apixaban --obtain an echo to eval LVEF. HPI: Sandrine Rivers is a 84 y.o. female who presents today to discuss management of A.fib. She has a h/o HTN, HLD, CAD s/p CABG, s/p PCI to LAD, h/o ovarian cancer. She followed with [facility] prior (Dr. Huggins) and has been cardioverted 4x. Has also been maintained on amiodarone. Last cardioversion was in November and she noted this lasted for 1 day before the A.fib recurred. She reports feeling significantly better in normal sinus and could tell when the A.fib recurred. Histories Past Medical History: Diagnosis Date A-fib (HCC) CHF (congestive heart failure) (HCC) Coronary artery disease DVT (deep venous thrombosis) (HCC) Hyperlipidemia Hypertension Ovarian cancer (HCC) Past Surgical History: Procedure Laterality Date APPENDECTOMY CARDIAC CATHETERIZATION x2 CARDIOVERSION 2 CORONARY ARTERY BYPASS GRAFT [facility] HYSTERECTOMY Family History Problem Relation Age of Onset Hyperlipidemia Mother Stroke Mother Hypertension Mother Alzheimer's disease Mother No Known Problems Father Stroke Natural Sister Heart attack Natural Sister Social History[1] Streptokinase and Poison araceli extract Patient's Medications New Prescriptions No medications on file Previous Medications ACETAMINOPHEN (TYLENOL) 500 MG TABLET Take 1 (one) tablet (500 mg total) by mouth every 4 (four) hours as needed for pain . AMIODARONE (CORDARONE) 200 MG TABLET Take 1 (one) tablet (200 mg total) by mouth 2 (two) times a day . APIXABAN 5 MG TAB Take 1 (one) tablet (5 mg total) by mouth 2 (two) times a day . ASPIRIN 81 MG EC TABLET Take 1 (one) tablet (81 mg total) by mouth daily . CALCIUM CARBONATE (OS-ANJALI) 600 MG CALCIUM (1,500 MG) TABLET Take 1 (one) tablet (600 mg total) by mouth daily . CHOLECALCIFEROL, VITAMIN D3, (VITAMIN D3 ORAL) Take by mouth . LEVOTHYROXINE (SYNTHROID, LEVOTHROID) 125 MCG TABLET Take 1 (one) tablet (125 mcg total) by mouth once daily . METOPROLOL TARTRATE (LOPRESSOR) 25 MG TABLET Take 1 (one) tablet (25 mg total) by mouth 2 (two) times a day . MIRABEGRON (MYRBETRIQ) 50 MG TB24 Take 1 (one) tablet (50 mg total) by mouth nightly . NIACIN 500 MG TABLET Take 1 (one) tablet (500 mg total) by mouth 2 (two) times a day with meals . NITROGLYCERIN (NITROSTAT) 0.[address] 1 (one) tablet (0.4 mg total) under the tongue every 5 (five) minutes as needed for chest pain , if no relief after 3 doses call 911 . OXYBUTYNIN (DITROPAN-XL) 10 MG 24 HR TABLET Take 1 (one) tablet (10 mg total) by mouth daily . POTASSIUM CHLORIDE SA (K-DUR,KLOR-CON) 20 MEQ TABLET Take 1 (one) tablet (20 mEq total) by mouth 2 (two) times a day . RAMIPRIL (ALTACE) 1.25 MG CAPSULE Take 1 (one) capsule (1.25 mg total) by mouth daily . ROSUVASTATIN (CRESTOR) 40 MG TABLET Take 1 (one) tablet (40 mg total) by mouth daily . SPIRONOLACTONE (ALDACTONE) 25 MG TABLET Take 1 (one) tablet (25 mg total) by mouth daily . SUCRALFATE (CARAFATE) 1 GRAM TABLET Take 1 (one) tablet (1 g total) by mouth daily . Modified Medications No medications on file Discontinued Medications No medications on file Allergies[2] Review of Systems All system(s) were reviewed. Pertinent positive and negative findings are noted in the HPI. All system negative unless otherwise noted in the HPI PACU Vitals 01/21/25 0903 BP: 123/76 Pulse: 76 SpO2: 94% G: NAD HEENT: Anicteric Chest/Lung: CTA c/l, no wheezes, rubs, or rales CVS: S1 S2 no S3,4, no galops, rubs or murmurs (more content not included)... [facility] 01-21-2025 History of Present illness Narrative Heart & Vascular Clinic Note [facility] Visit Date: 01/21/2025 Patient Name: Sandrine Rivers : 1940 Reason for Visit: Initial Visit (Intake) (Afib discuss Rhythm control ) ASSESSMENT: #Paroxysmal A.fib/Flutter : s/p DCCV x 2 and has been on amiodarone. Unfortunately, still has paroxysms of A.fib/flutter. Was in sinus in November and felt significantly better. Only lasted a day. She complains of SOB, palpitations. I discussed treatment options with her including trying a Class III agent vs pursuing an ablation. I also explained the risks of the pulmonary vein isolation which includes a 2% risk of adverse events most commonly bleeding and/or vascular injury, but also less commonly renal injury, thromboembolism, cardiac perforation requiring emergent surgery or carito-cardiocentesis, PV stenosis, esophageal injury or fistula, phrenic nerve injury, stroke, myocardial infarction and/or . The patient wishes to proceed with catheter ablation. #CAD s/p CABG, s/p PCI to LAD. #HFrEF LVEF-35-40%. #Moderate to severe TR. #Hypothyroidism #CKD #ECHO: Pending. PLAN: --Pursue an RF ablation for A.Fib/flutter --c/w amiodarone for now. --c/w apixaban --obtain an echo to eval LVEF. HPI: Sandrine Rivers is a 84 y.o. female who presents today to discuss management of A.fib. She has a h/o HTN, HLD, CAD s/p CABG, s/p PCI to LAD, h/o ovarian cancer. She followed with [facility] prior (Dr. Huggins) and has been cardioverted 4x. Has also been maintained on amiodarone. Last cardioversion was in November and she noted this lasted for 1 day before the A.fib recurred. She reports feeling significantly better in normal sinus and could tell when the A.fib recurred. Histories Past Medical History: Diagnosis Date A-fib (HCC) CHF (congestive heart failure) (HCC) Coronary artery disease DVT (deep venous thrombosis) (HCC) Hyperlipidemia Hypertension Ovarian cancer (HCC) Past Surgical History: Procedure Laterality Date APPENDECTOMY CARDIAC CATHETERIZATION x2 CARDIOVERSION 2 CORONARY ARTERY BYPASS GRAFT [facility] HYSTERECTOMY Family History Problem Relation Age of Onset Hyperlipidemia Mother Stroke Mother Hypertension Mother Alzheimer's disease Mother No Known Problems Father Stroke Natural Sister Heart attack Natural Sister Social History[1] Streptokinase and Poison araceli extract Patient's Medications New Prescriptions No medications on file Previous Medications ACETAMINOPHEN (TYLENOL) 500 MG TABLET Take 1 (one) tablet (500 mg total) by mouth every 4 (four) hours as needed for pain . AMIODARONE (CORDARONE) 200 MG TABLET Take 1 (one) tablet (200 mg total) by mouth 2 (two) times a day . APIXABAN 5 MG TAB Take 1 (one) tablet (5 mg total) by mouth 2 (two) times a day . ASPIRIN 81 MG EC TABLET Take 1 (one) tablet (81 mg total) by mouth daily . CALCIUM CARBONATE (OS-ANJALI) 600 MG CALCIUM (1,500 MG) TABLET Take 1 (one) tablet (600 mg total) by mouth daily . CHOLECALCIFEROL, VITAMIN D3, (VITAMIN D3 ORAL) Take by mouth . LEVOTHYROXINE (SYNTHROID, LEVOTHROID) 125 MCG TABLET Take 1 (one) tablet (125 mcg total) by mouth once daily . METOPROLOL TARTRATE (LOPRESSOR) 25 MG TABLET Take 1 (one) tablet (25 mg total) by mouth 2 (two) times a day . MIRABEGRON (MYRBETRIQ) 50 MG TB24 Take 1 (one) tablet (50 mg total) by mouth nightly . NIACIN 500 MG TABLET Take 1 (one) tablet (500 mg total) by mouth 2 (two) times a day with meals . NITROGLYCERIN (NITROSTAT) 0.[address] 1 (one) tablet (0.4 mg total) under the tongue every 5 (five) minutes as needed for chest pain , if no relief after 3 doses call 911 . OXYBUTYNIN (DITROPAN-XL) 10 MG 24 HR TABLET Take 1 (one) tablet (10 mg total) by mouth daily . POTASSIUM CHLORIDE SA (K-DUR,KLOR-CON) 20 MEQ TABLET Take 1 (one) tablet (20 mEq total) by mouth 2 (two) times a day . RAMIPRIL (ALTACE) 1.25 MG CAPSULE Take 1 (one) capsule (1.25 mg total) by mouth daily . ROSUVASTATIN (CRESTOR) 40 MG TABLET Take 1 (one) tablet (40 mg total) by mouth daily . SPIRONOLACTONE (ALDACTONE) 25 MG TABLET Take 1 (one) tablet (25 mg total) by mouth daily . SUCRALFATE (CARAFATE) 1 GRAM TABLET Take 1 (one) tablet (1 g total) by mouth daily . Modified Medications No medications on file Discontinued Medications No medications on file Allergies[2] Review of Systems All system(s) were reviewed. Pertinent positive and negative findings are noted in the HPI. All system negative unless otherwise noted in the HPI PACU Vitals 01/21/25 0903 BP: 123/76 Pulse: 76 SpO2: 94% G: NAD HEENT: Anicteric Chest/Lung: CTA c/l, no wheezes, rubs, or rales CVS: S1 S2 no S3,4, no galops, rubs or murmurs Ab: Soft, NT, ND no guarding or rigidity LE: No edema Skin: Intact Neuro: non Focal Psychiatric: non Suicidal, non homicidal No results found for: GLUCOSE, CALCIUM, NA, K, CL, BUN, CREATININE No results found for: INR, PROTIME Diagnostic tests, personally reviewed: ECG: Aflutter Holter monitor: none. Echocardiogram: reviewed Other workup reviewed ASSESSMENT & PLAN: See above Miryam Tejeda [1] Social History Socioeconomic History Marital status: Tobacco Use Smoking status: Former Types: Cigarettes Start date: 1999 Quit date: 1979 Years since quittin.6 Smokeless tobacco: Never Substance and Sexual Activity Alcohol use: Yes Drug use: Never [2] Allergies Allergen Reactions Streptokinase Hives Poison Araceli Extract Itching documented in this encounter [facility] 01-09-2025 Instructions Maya Blum RN - 01/09/2025 2:38 PM EDT Images from the original note were not included. It was our pleasure to see you in EP Clinic today. Please contact: ESCOBAR Trejo [phone] KEYONA Kaur RMA with questions, concerns, or if you need prescription refills before your next appointment. Learning About Catheter Ablation for Atrial Fibrillation What is catheter ablation? Catheter ablation is a procedure that treats heart rhythm problems, such as atrial fibrillation. Your heart should have a strong, steady beat. That beat is controlled by the heart's electrical system. Sometimes that system misfires. This causes a heartbeat that is too fast and isn't steady. Catheter ablation is a way to get into your heart and fix the problem. Ablation is not surgery. How is catheter ablation done? Your doctor inserts thin tubes called catheters into a blood vessel in your groin. Then your doctor feeds them into the heart. Wires in the catheters help the doctor find the problem areas. Then he or she uses the wires to send energy to destroy the tiny areas of heart tissue that are causing the problems. It may seem like a bad idea to destroy parts of your heart on purpose. But the areas that are destroyed are very tiny. They should not affect your heart's ability to do its job. Due to the length and complexity, this ablation is done under general anesthesia. This procedure usually takes 2 to 6 hours. In rare cases, it can take longer. You will be admitted overnight in the hospital for observation. Most people can go back to work and their normal routine in 1 or 2 days. What can you expect after catheter ablation? Do not exercise hard or lift anything heavy for a week. You will probably be able to go back to work and to your normal routine in 1 or 2 days. You may have swelling, bruising, or a small lump around the site where the catheters went into your body. These should go away in 3 to 4 weeks. You may still have to continue anti arrthymic and/or anti-coagulant (blood thinner) medications after the procedure. This is determined case by case basis by your physician. Pre-Procedure Instructions CHECK-IN DATE/TIME: Monday March 10, 2025 at 6:00 AM Location: [facility]: [address] [place], [place] [id number] You will then be taken to short term care where the nurses will prepare you for your procedure. The check-in time allows for adequate preparation time prior to your procedure and is not the actual time of your procedure. You may park in the parking garage or use the film sound engineer at the hospital entrance. Medications: You may take your scheduled morning medications with a small sip of water. Please bring an accurate medication list or all medications in original bottles to the hospital with you. Please do not assume an accurate list of medication is on file. Blood Thinners Eliquis: HOLD your morning dose the day of your ablation. If you miss any doses of your blood thinner within 30 days of your procedure, please contact our office RUBA If you are Diabetic: Do not take any oral or pill form diabetic medication the morning of the procedure. Do not take any insulin the morning of the procedure If you take Levemir or Glargine (Lantus) only take half the scheduled dose the night before the procedure. Canagliflozin (Canaglif), Dapagliflozin (Farxiga), Empagliflozin (Jardiance)- hold for 3 days prior to your procedure Ertugliflozin (Steglatro)- hold for 4 days prior to your procedure. Dulagutide (Trulicity), Exenatide (Byduren/Byetta), Liraglutide (Saxenda/Victoza), Lixisenatide (Adlyxin), Semaglutide (Ozempic, Wegovy, Rybelsus) Daily dosing- hold the day of your procedure Weekly dosing- hold one week prior to your procedure. Please take Prilosec OTC (Omeprazole) 20 mg tablet daily starting 3 days prior to your ablation and continue to take for 30 days after, unless you are already taking an acid reducing medicine such as Nexium, Prevacid, Protonix, Aciphex or Zantac. Additional Instructions: Bring photo ID and insurance card No smoking or products containing nicotine for 24 hours prior to your procedure. Please do not eat or drink anything after midnight the night before your procedure. You may have up to 2 family members with you the day of the procedure. This is subject to change due to COVID restrictions. If you have sleep apnea and wear a CPAP or BIPAP, please bring your machine for overnight use. You may be admitted overnight for observation or be discharged the same day. You will not be permitted to drive yourself home. Please arrange to have a class a regional truck driver upon discharge. Additional Pre-Procedure Testing: Blood Work: will need to be completed within 30 days of your procedure. This is a requirement of the hospital. (BMP, CBC) Our office staff can assist you in making arrangements with other facilities if needed. Please provide us with the desired facility so that we may fax these orders do them. Please make sure the results are faxed back to our office at [phone] After Discharge Have someone available to drive you home after the procedure Due to the sedation, you are not permitted to drive for 48 hours. Do not lift more than 10 pounds for 7 days after the procedure. For the first 24 hours after the procedure , limit or avoid stair climbing. Keep the puncture site in the groin covered with a dry band-aid for 24 hours. The band-aid can then be removed and the site left open to air. You may shower 24 hours after your procedure. Do not take a tub bath, use a hot tub or swimming pool until the puncture site is healed, usually 3-4 days. Most people can be back to work after 24-48 hours unless otherwise advised by the doctor. Do not exercise hard or do any activity that could strain your blood vessels, specifically at the assess puncture site in your groin for 7 days after your procedure. You may have swelling, bruising, or a small lump around the puncture site. This should go away in 3-4 weeks. documented in this encounter [facility] 01-05-2025 History of Present illness Narrative General Cardiology New Patient Clinic Consult [facility], Heart & Vascular 01/05/2025 Davida Rosa MD [address] [facility] [id number] Patient: Sandrine Rivers Date of : 1940 (84 y.o.) Referring Provider: System, Provider Not In PCP: Samantha Reyes MD Date of Service: 01/05/2025 Chief Complaint: Initial Visit (Intake) Assessment and Plan: Persistent atrial fibrillation [id number] score equals 5 currently on Eliquis 5 mg twice daily Patient on amiodarone with failed cardioversion x 2 Given the fact that she has persistent atrial fibrillation and concern for side effects of amiodarone, we will hold that medication at this time As needed beta-blockade given for elevated heart rates Referral to EP for discussion of ablation either atrial fibrillation ablation versus AV node ablation, patient does state that she is very symptomatic with her A-fib Dizziness/hypotension Fatigue Differential diagnosis is broad Available blood work reviewed, she has not had a CBC in a few months however has not had any concerns for bleeding, anemia would be on the differential Obstructive coronary disease excluded She is not on any fatiguing medications She does not have obstructive sleep apnea Recommend increase hydration Atrial fibrillation may be contributing as above Coronary artery disease (s/p CABG 2000 PATINO-LAD (atretic), SVG - D1 patent) and PCI to LAD Stable, asymptomatic Currently on aspirin, high intensity statin Total cholesterol 135, triglycerides 170, HDL 50, LDL 57, LDL is at target Recent left heart catheterization with patent arteries Systolic heart failure Ejection fraction 35 to 40% Patient believes symptomatic due to atrial fibrillation, not having any heart failure symptoms at this time. [place] Heart Association class II, ACC stage C Currently on spironolactone, ramipril Reports she has never been on a beta-chan Has never heard about SGLT2 inhibitors Given her borderline hypotension and orthostatic symptoms, limited room to advanced therapy at this time We will stop amiodarone though and if heart rates increase, she has been given a trial of Lopressor which can transition to extended release metoprolol should she tolerate hesitant to start beta-blockers at this time given ongoing fatigue Moderate to severe tricuspid regurgitation Clinically euvolemic at this time, will continue to monitor with echocardiogram annually It has been a pleasure caring for this patient. Please don't hesitate to reach out to my office directly with any questions or concerns. Follow-up: Return in about 3 months (around 04/07/2025). Davida Rosa MD, [facility] Non-Invasive Cardiology [facility] P:[phone] F:[phone] History of Present Illness: Sandrine Rivers is a 84 y.o. woman with a past medical history of atrial fibrillation longstanding on amiodarone, presumed nonischemic cardiomyopathy, coronary artery disease status post CABG and PCI who presents today to establish care. Previously following with [facility]. Patient presenting for second opinion after multiple episodes of recurrent atrial fibrillation. She states that since she went back into [facility] several weeks ago her energy has been zapped. She is fatigued. She is dizzy and lightheaded particularly when she stands up, she is endorsing dizziness with walking. No orthopnea or paroxysmal nocturnal dyspnea, no lower extremity edema. Drinks about 1 quart of water a day. 1 episode she described getting up in the middle of the night to use the bathroom, on her way back was very dizzy and lightheaded, slid down, tunnel vision, did not fall. Objective Review of Systems: All systems were reviewed and are noted to be negative unless otherwise stated in HPI. Past Medical History: Diagnosis Date A-fib (HCC) CHF (congestive heart failure) (HCC) Coronary artery disease DVT (deep venous thrombosis) (HCC) Hyperlipidemia Hypertension Ovarian cancer (HCC) Past Surgical History: Procedure Laterality Date APPENDECTOMY CARDIAC CATHETERIZATION x2 CARDIOVERSION 2 CORONARY ARTERY BYPASS GRAFT [facility] HYSTERECTOMY Family History Problem Relation Age of Onset Hyperlipidemia Mother Stroke Mother Hypertension Mother Alzheimer's disease Mother No Known Problems Father Stroke Natural Sister Heart attack Natural Sister Tobacco Use History[1] Allergies: Streptokinase and Poison araceli extract All of the information has been reviewed at today's visit and modified if necessary. Home Medications: Current Medications[2] Physical Exam: BP 108/68 (BP Location: Left arm, Patient Position: Sitting, BP Cuff Size: Adult) Pulse 71 Ht 5' 4.5 Wt 72.3 kg (159 lb 6.4 oz) SpO2 95% BMI 26.94 kg/m Constitutional: Well appearing female, no acute distress Head: Normocephalic and atraumatic. Eyes: Conjunctivae are normal, no scleral icterus, no corneal arcus Neck: No acanthosis nigricans, no elevated jugular venous distension, no hepatojugular reflux Cardiovascular: Irregular rate and rhythm, soft holosystolic murmur appreciated on today's exam, normal S1 and S2, no rubs or gallops, PMI is midline Pulses: +2 dorsalis pedis pulses bilaterally Musculoskeletal: Normal range of motion. No cyanosis. No peripheral Edema Neurological: AOx3, moving all extremities normally Skin: Skin is warm and dry, normal hair pattern Psychiatric: Normal mood and affect, appropriate conversation Cardiovascular Studies: Reviewed documents from [employer] ECG: a flutter with variable block, controlled rate at 75 bpm DCC 11/24/2024 Successful DCCV from Afib to NSR. Cardiac Cath 10/02/2024 40% Mid LAD lesion Stent widely patent SVG to Diag patent Echo 10/01/2024 Mild Concentric left ventricular hypertrophy Moderate to severe generalized LV hypokinesis LVEF 35-40% Left atrium is severely enlarged. Right atrium is moderately enlarged Mild Mitral valve insufficiency (1+) Moderately Severe (3+) tricuspid valve insufficiency Aortic valve right coronary cusp mildly calcified with restricted leaflet excursion Trivial MR Nuclear Stress Test 04/10/2024 Baseline Atrial Fib Rest and Stress nuclear imagine with uniform tracer uptake and myocardial perfusion LVEF 63% Cardiac Cath 11/10/2015 Widely patent LAD Stent Widely patient saphenous vein graft to diagonal Atretic PATINO to the LAD Normal left circumflex, OM, and RCA Labs: Reviewed October 13, 2024 located in Care Everywhere The ASCVD Risk score (Estefani SAINZ, et al., 2019) failed to calculate for the following reasons: The 2019 ASCVD risk score is only valid for ages 40 to 79 [1] Social History Tobacco Use Smoking Status Former Types: Cigarettes Start date: 1999 Quit date: 1980 Years since quittin.6 Smokeless Tobacco Never [2] Current Outpatient Medications: acetaminophen (TYLENOL) 500 MG tablet, Take 1 (one) tablet (500 mg total) by mouth every 4 (four) hours as needed for pain ., Disp: , Rfl: amiodarone (CORDARONE) 200 MG tablet, Take 1 (one) tablet (200 mg total) by mouth 2 (two) times a day ., Disp: , Rfl: apixaban 5 mg Tab, Take 1 (one) tablet (5 mg total) by mouth 2 (two) times a day ., Disp: , Rfl: aspirin 81 MG EC tablet, Take 1 (one) tablet (81 mg total) by mouth daily ., Disp: , Rfl: calcium carbonate (OS-ANJALI) 600 mg calcium (1,500 mg) tablet, Take 1 (one) tablet (600 mg total) by mouth daily ., Disp: , Rfl: cholecalciferol, vitamin D3, (VITAMIN D3 ORAL), Take by mouth ., Disp: , Rfl: levothyroxine (SYNTHROID, LEVOTHROID) 125 MCG tablet, Take 1 (one) tablet (125 mcg total) by mouth once daily ., Disp: , Rfl: mirabegron (MYRBETRIQ) 50 mg Tb24, Take 1 (one) tablet (50 mg total) by mouth nightly ., Disp: , Rfl: niacin 500 MG tablet, Take 1 (one) tablet (500 mg total) by mouth 2 (two) times a day with meals ., Disp: , Rfl: nitroGLYCERIN (NITROSTAT) 0.4 MG SL tablet, Place 1 (one) tablet (0.4 mg total) under the tongue every 5 (five) minutes as needed for chest pain , if no relief after 3 doses call 911 ., Disp: , Rfl: oxyBUTYnin (DITROPAN-XL) 10 MG 24 hr tablet, Take 1 (one) tablet (10 mg total) by mouth daily ., Disp: , Rfl: potassium chloride SA (K-DUR,KLOR-CON) 20 MEQ tablet, Take 1 (one) tablet (20 mEq total) by mouth 2 (two) times a day ., Disp: , Rfl: ramipriL (ALTACE) 1.25 MG capsule, Take 1 (one) capsule (1.25 mg total) by mouth daily ., Disp: , Rfl: rosuvastatin (CRESTOR) 40 MG tablet, Take 1 (one) tablet (40 mg total) by mouth daily ., Disp: , Rfl: spironolactone (ALDACTONE) 25 MG tablet, Take 1 (one) tablet (25 mg total) by mouth daily ., Disp: , Rfl: sucralfate (CARAFATE) 1 gram tablet, Take 1 (one) tablet (1 g total) by mouth daily ., Disp: , Rfl: metoprolol tartrate (LOPRESSOR) 25 MG tablet, Take 1 (one) tablet (25 mg total) by mouth 2 (two) times a day ., Disp: 60 tablet, Rfl: 11 documented in this encounter [facility] 01-05-2025 Note General Cardiology N ew Patient Clinic Consult [facility], Heart & Vascular 01/05/2025 Davida Rosa MD [address] [place] [id number] Patient: Sandrine Rivers Date of : 1940 (84 y.o.) Referring Provider: System, Provider Not In PCP: Samantha Reyes MD Date of Service: 01/05/2025 Chief Complaint: Initial Visit (Intake) Assessment and Plan: Persistent atrial fibrillation [id number] score equals 5 currently on Eliquis 5 mg twice daily Patient on amiodarone with failed cardioversion x 2 Given the fact that she has persistent atrial fibrillation and concern for side effects of amiodarone, we will hold that medication at this time As needed beta-blockade given for elevated heart rates Referral to EP for discussion of ablation either atrial fibrillation ablation versus AV node ablation, patient does state that she is very symptomatic with her A-fib Dizziness/hypotension Fatigue Differential diagnosis is broad Available blood work reviewed, she has not had a CBC in a few months however has not had any concerns for bleeding, anemia would be on the differential Obstructive coronary disease excluded She is not on any fatiguing medications She does not have obstructive sleep apnea Recommend increase hydration Atrial fibrillation may be contributing as above Coronary artery disease (s/p CABG 2000 PATINO-LAD (atretic), SVG - D1 patent) and PCI to LAD Stable, asymptomatic Currently on aspirin, high intensity statin Total cholesterol 135, triglycerides 170, HDL 50, LDL 57, LDL is at target Recent left heart catheterization with patent arteries Systolic heart failure Ejection fraction 35 to 40% Patient believes symptomatic due to atrial fibrillation, not having any heart failure symptoms at this time. [place] Heart [employer] class II, ACC stage C Currently on spironolactone, ramipril Reports she has never been on a beta-chan Has never heard about SGLT2 inhibitors Given her borderline hypotension and orthostatic symptoms, limited room to advanced therapy at this time We will stop amiodarone though and if heart rates increase, she has been given a trial of Lopressor which can transition to extended release metoprolol should she tolerate hesitant to start beta-blockers at this time given ongoing fatigue Moderate to severe tricuspid regurgitation Clinically euvolemic at this time, will continue to monitor with echocardiogram annually It has been a pleasure caring for this patient. Please don't hesitate to reach out to my office directly with any questions or concerns. Follow-up: Return in about 3 months (around 04/07/2025). Davida Rosa MD, [facility] Non-Invasive Cardiology [facility] P:[phone] F:[phone] ----- History of Present Illness: Sandrine Rivers is a 84 y.o. woman with a past medical history of atrial fibrillation longstanding on amiodarone, presumed nonischemic cardiomyopathy, coronary artery disease status post CABG and PCI who presents today to [facility] care. Previously following with [facility]. Patient presenting for second opinion after multiple episodes of recurrent atrial fibrillation. She states that since she went back into [facility] several weeks ago her energy has been zapped. She is fatigued. She is dizzy and lightheaded particularly when she stands up, she is endorsing dizziness with walking. No orthopnea or paroxysmal nocturnal dyspnea, no lower extremity edema. Drinks about 1 quart of water a day. 1 episode she described getting up in the middle of the night to use the bathroom, on her way back was very dizzy and lightheaded, slid down, tunnel vision, did not fall. Objective Review of Systems: All systems were reviewed and are noted to be negative unless otherwise stated in HPI. Past Medical History: Diagnosis Date A-fib (HCC) CHF (congestive heart failure) (HCC) Coronary artery disease DVT (deep venous thrombosis) (HCC) Hyperlipidemia Hypertension Ovarian cancer (HCC) Past Surgical History: Procedure Laterality Date APPENDECTOMY CARDIAC CATHETERIZATION x2 CARDIOVERSION 2 CORONARY ARTERY BYPASS GRAFT [facility] HYSTERECTOMY Family History Problem Relation Age of Onset Hyperlipidemia Mother Stroke Mother Hypertension Mother Alzheimer's disease Mother No Known Problems Father Stroke Natural Sister Heart attack Natural Sister Tobacco Use History[1] Allergies: Streptokinase and Poison araceli extract All of the information has been reviewed at today's visit and modified if necessary. Home Medications: Current Medications[2] Physical Exam: BP 108/68 (BP Location: Left arm, Patient Position: Sitting, BP Cuff Size: Adult) Pulse 71 Ht 5' 4.5 Wt 72.3 kg (159 lb 6.4 oz) S (more content not included)... [facility] Ambulatory 01-05-2025 Instructions Davida Rosa MD - 01/05/2025 10:54 AM EDT How to Contact your Care Team: Provider: Dr. Davida Rosa MD Clinic MA: ROSEMARIE Malone REFILLS: When in need for refills please call your care team or the office at [phone]. Please include medication name, pharmacy name, and specify 30-day or 90-day supply. Please check with your pharmacy within 24 hours of request for your refill. You must follow up as directed to continue current refills. Thank you! Patient Instructions So great to see you today! Please do not hesitate to call me if you have any questions! Here are the things we talked about... Increase water to 60-70oz Stop amiodarone documented in this encounter [facility] 12-05-2024 Telephone encounter Note Detailed message left notifying pt that placard is ready for pick out hand at med rec. Julia Patel MA [facility] 12-05-2024 Miscellaneous Notes Detailed message left notifying pt that placard is ready for pick out hand at med rec. Julia Patel MA Printed. Charles Chavez APRN.MIKA Patient calling requesting a handicap placard renewal rx, she has one. Patient would like to pick out hand rx when ready. Please advise documented in this encounter [facility] 12-05-2024 Telephone encounter Note Printed. Charles Chavez APRN.MIKA [facility] 12-03-2024 Telephone encounter Note Patient calling requesting a handicap placard renewal rx, she has one. Patient would like to pick out hand rx when ready. Please advise [facility] 12-03-2024 Telephone encounter Note FYI.... [facility] called stating pt will transfer her care to their offices in either [place] or [place]. Requested face sheet, office note and cardiac work up faxed to [phone] Thank you [facility] 12-03-2024 Miscellaneous Notes FYI.... [facility] called stating pt will transfer her care to their offices in either [place] or [place]. Requested face sheet, office note and cardiac work up faxed to [phone] Thank you documented in this encounter [facility] 12-01-2024 Emergency department Note Daisy VANN and Dr Whitney made aware of patient leaving. [facility] 12-01-2024 Emergency department Note Daisy VANN and Dr Whitney made aware of patient leaving. Patient and family came to this nurse demanding her IV be removed because she was leaving. Patient began cussing at this nurse because she was not in a room. This nurse explained to the patient we are just waiting for a room in the back and asked patient if she would speak with a provider. Patient still demanding to leave. SOO made aware. Pt and family came up to window and said We are fucking leaving! Due to not wanting to wait for a room in the hospital or the ER. ER rooms are full at this time and pt has not been assigned a bed on the floor. Pt son expressed frustration to this nurse asking how long it will take for patient to get a room. Son was under the impression from the lens inspector she was already admitted to the hospital. Provided education that the patient just had lab work done and it is unknown at this time wether or not she was admitted as we have no information. Patient son stated this is crazy. Emergency Department Encounter [facility] EMERGENCY DEPT Patient: Sandrine Rivers : 1940 Date of Evaluation: 12/01/2024 ED Supervising Physician: Krys Torres MD I personally evaluated Sandrine Rivers and made/approved the management plan and take responsibility for the patient management. This will serve as my Supervisory note and shared attestation. I did perform a substantive portion of the visit including all aspects of the Medical Decision Making. I wore appropriate PPE for the entirety of this encounter. In brief, Sandrine Rivers is a 84 y.o. that presents to the emergency department for arrhythmia. Patient with history of A-fib on amiodarone, Eliquis, heart failure with reduced ejection fraction, prior failed cardioversion, cardiomyopathy with prior CABG and PCI, CKD and hypothyroidism presented to the heart failure clinic today with fatigue, palpitations, orthopnea and sent here to be admitted. She was recently cardioverted about 1 week ago and had recurrence of symptoms. Reports compliance with her medications. Denies any nausea vomiting cough any chest pain any bloody stools. Denies any focal weakness numbness tingling. Focused exam: Vitals borderline low blood pressure otherwise stable no distress Heart sounds are regular lungs clear bilaterally Lower extremities without edema Brief ED course/MDM: 84-year-old female here with palpitations fatigue generalized weakness shortness of breath on exertion. Differential symptomatic A-fib, heart failure, anemia, electrolyte derangement, infection. Medical history impacting this visit includes heart failure and A-fib. EKG shows A-fib rate is controlled. Labs pending. Will admit to the hospitalist for evaluation by cardiology for further treatment options. I reviewed outpatient office visit from 12/01/2024 highlighting her care regarding her heart failure and atrial fib. Diagnostics interpreted by me: Xray(s) chest x-ray without acute infiltrate I personally discussed the patient's management with other clinicians: none All diagnostic, treatment, and disposition decisions were made by myself in conjunction with the [facility]. For all further details of the patient's emergency department visit, please see their documentation. (Comment: Please note this report has been produced using speech recognition software and may contain errors related to that system including errors in grammar, punctuation, and spelling, as well as words and phrases that may be inappropriate. If there are any questions or concerns please feel free to contact the dictating provider for clarification.) Krys Torres MD Acute [facility] Krys Torres MD 12/01/242007 EMERGENCY DEPARTMENT ENCOUNTER Pt Name: Sandrine Rivers Birthdate 1940 Date of evaluation: 12/01/2024 ED Provider: Harsha Huerta PA-C CHIEF COMPLAINT Chief Complaint Patient presents with Irregular Heart Beat Pt was at dr. Office and having an episode of afib. Hx of afib, takes blood thinner, recent cardioversion HISTORY OF PRESENT ILLNESS (Location/Symptom, Timing/Onset, Context/Setting, Quality, Duration, Modifying Factors, Severity) Note limiting factors. I wore appropriate PPE for the entirety of this encounter. HPI Sandrine Rivers is a 84 y.o. who presents to the emergency department with chief complaint of Patient is a pleasant 84-year-old female reportedly sent in from lens inspector office for consideration for treatment for her A-fib. She has not had long-term paroxysmal A-fib for which she is anticoagulated rate controlled as well as on amiodarone as an antiarrhythmic. At time of my exam patient denies chest pain difficulty breathing shortness of breath nausea vomiting lightheadedness or any other complaints. There is a cardiology note from earlier today, notes the patient has been feeling worse with NYHA class III fatigue palpitations orthopnea but no chest pain PND or syncopal episodes. Previously had DCCV for A-fib to NSR. Chart makes mention of cardioversion scheduled in 2 weeks but does not state patient was told to go to the emergency department. Prescribed medications include amiodarone ramipril Eliquis Synthroid Myrbetriq Nitrostat Ditropan Klor-Con Crestor spironolactone and Carafate with streptokinase allergy noted. Documented medical history includes prior SBO coronary artery disease status post stenting hypothyroidism hyperlipidemia GERD esophagitis STARK stage III kidney disease persistent A-fib aortic valve stenosis. Nursing Notes were reviewed. Limitations to history: None Outside historians: None REVIEW OF SYSTEMS Review of Systems Pertinent positives and negatives as per HPI. PAST MEDICAL HISTORY Medical History[1] SURGICAL HISTORY Surgical History[2] CURRENT MEDICATIONS Previous Medications ACETAMINOPHEN (TYLENOL) 500 MG TABLET Take 500 mg by mouth every 4 hours as needed for mild pain (1-3). AMIODARONE (PACERONE) 200 MG TABLET Take 1 tablet (200 mg) by mouth 2 times daily. APIXABAN (ELIQUIS) 5 MG TABLET Take 5 mg by mouth 2 times daily. ASPIRIN 81 MG EC TABLET Take 81 mg by mouth daily. CALCIUM CARBONATE (CALCIUM 600 PO) Take 600 mg by mouth daily. CHOLECALCIFEROL (VITAMIN D-3) 1.25 MG (45654 UT) CAPSULE Take 50,000 Units by mouth 1 (one) time per week. LEVOTHYROXINE (SYNTHROID, LEVOXYL) 125 MCG TABLET Take 125 mcg by mouth every morning (before breakfast). MIRABEGRON ER (MYRBETRIQ) 50 MG 24 HR TABLET Take 50 mg by mouth Nightly. Do not crush, chew, or split. NIACIN 500 MG TABLET Take 500 mg by mouth 2 times daily (with meals). NITROGLYCERIN (NITROSTAT) 0.[address] 0.4 mg under the tongue every 5 minutes as needed for chest pain. OXYBUTYNIN XL (DITROPAN-XL) 10 MG 24 HR TABLET Take 10 mg by mouth daily. Do not crush, chew, or split. POTASSIUM CHLORIDE CR (KLOR-CON M20) 20 MEQ ER TABLET Take 20 mEq by mouth daily. Do not crush or chew. RAMIPRIL (ALTACE) 5 MG CAPSULE Take 1 capsule (5 mg) by mouth daily. ROSUVASTATIN (CRESTOR) 40 MG TABLET Take 40 mg by mouth daily. SPIRONOLACTONE (ALDACTONE) 25 MG TABLET Take 25 mg by mouth daily. SUCRALFATE (CARAFATE) 1 G TABLET Take 1 g by mouth daily. ALLERGIES Streptokinase and Poison araceli extract FAMILY HISTORY Family History[3] SOCIAL HISTORY Social History[4] SCREENINGS PHYSICAL EXAM ED Triage Vitals [12/01/24 1725] Temp Heart Rate Resp BP 36.9 C (98.5 F) 83 16 98/62 SpO2 Temp Source Heart Rate Source Patient Position 100 % Temporal Monitor -- BP Location FiO2 (%) -- -- General: Alert, no acute distress Skin: Warm, dry, intact Head: Normocephalic, atraumatic Eye: Normal conjunctiva, ENMT: Oral mucosa moist, trachea midline without tenderness or crepitus Cardiovascular: Irregularly irregular peripheral heart rate in the 80s with palpation of the right radial artery, normal peripheral perfusion, no edema calf tenderness or venous cords bilaterally Respiratory: Lungs clear to auscultation, nonlabored respirations, breath sounds equal, symmetrical expansion Chest wall: No tenderness, no deformity Gastrointestinal: Soft, nontender 4 quadrants with no rebound or guarding Back: Nontender midline thoracic and lumbar spines without step-off deformities or crepitus, no flank tenderness noted bilaterally MSK: No swelling, No deformity, no tenderness all extremities other than noted above Neuro: GCS 15 Psych: Cooperative, appropriate mood and affect Physical Exam DIAGNOSTIC RESULTS Procedures/EKG: EKG was reviewed by myself. Physician EKG interpretation can be found in [facility] RADIOLOGY (Per Emergency Physician): Interpretation per the Radiologist below, if available at the time of this note: XR chest 2 views (Results Pending) ED BEDSIDE ULTRASOUND: Performed by ED Physician - none LABS: Labs Reviewed NT PRO BNP - Abnormal Result Value NT PRO BNP 2,740 (*) COMPREHENSIVE METABOLIC PANEL - Abnormal SODIUM 128 (*) POTASSIUM 4.6 CHLORIDE 97 (*) CARBON DIOXIDE 21 (*) ANION GAP 10 UREA NITROGEN 26 (*) CREATININE 1.95 (*) GLUCOSE 106 CALCIUM 10.8 (*) AST (SGOT) 25 ALT 16 ALKALINE PHOSPHATASE 47 ALBUMIN 3.8 BILIRUBIN, TOTAL 0.7 TOTAL PROTEIN 6.8 eGFR 25.0 (*) HIGH SENSITIVITY TROPONIN, SERIAL BASELINE - Abnormal Troponin HS Serial Baseline 21 (*) MAGNESIUM - Normal MAGNESIUM 1.6 Narrative: Higher values can be expected in females during menses. HIGH SENSITIVITY TROPONIN, SERIAL, SECOND TEST CBC WITH AUTO DIFFERENTIAL All other labs were within normal range or not returned as of this dictation. EMERGENCY DEPARTMENT COURSE and DIFFERENTIAL DIAGNOSIS/MDM: Vitals: Vitals: 12/01/24 1725 BP: 98/62 Pulse: 83 Resp: 16 Temp: 36.9 C (98.5 F) TempSrc: Temporal SpO2: 100% Discussed history and physical exam, results, and medical decision making and disposition plan with my supervising physician Dr. Torres who is in agreement with this plan but did not personally see the patient prior to disposition. 84-year-old female reportedly sent in by the cardiology/heart failure team for consideration for cardioversion versus alternate method to get her out of A-fib. Here in the emergency department she had a slightly soft blood pressure at 98/62 with otherwise unremarkable vital signs. She had no complaints. She had a irregularly irregular nontachycardic heart rate. Workup here in the emergency department Showed mag of 1.6 BNP 2740 without prior for comparison troponin mildly elevated at 21. Sodium of 128 previously 136 2 weeks ago. Creatinine is baseline for her at 1.95. EKG showed A-fib without RVR. Discussed with [facility], they tell me because the [facility] attending is not part of the heart failure team they are declining the admission. They tell me that patient needs to be admitted to the medicine service with heart failure team consultation. Subsequently discussed with the medicine team who accepted the patient. Diagnoses as of 12/01/242000 Atrial fibrillation, unspecified type (HCC) Hyponatremia Medications sodium chloride 0.9 % bolus 500 mL (500 mL IntraVENous New Bag 12/01/24 1833) REVAL: 1939: 1942: Patient discussed with Dr. Amador with cardiology.. Tells me as this patient is currently established with the heart failure clinic and the [facility] attending lens inspector who is on duty this week is not part of the heart failure team they have been told to decline these patients. Her recommendation is to reach out to the medicine service for admission with subsequent heart failure team consultation by the medicine team. 1957: Accept by Dr Whitney with medicine. CRITICAL CARE TIME CONSULTS: None PROCEDURES: Unless otherwise noted below, none Procedures Patients symptoms are consistent with sepsis, severe sepsis, or septic shock (If yes use .sepsiscoremeasure): FINAL IMPRESSION 1. Atrial fibrillation, unspecified type (HCC) 2. Hyponatremia DISPOSITION Admit 12/01/2024 07:59:46 PM PATIENT REFERRED TO: No follow-up provider specified. DISCHARGE MEDICATIONS: New Prescriptions No medications on file (Comment: Please note this report has been produced using speech recognition software and may contain errors related to that system including errors in grammar, punctuation, and spelling, as well as words and phrases that may be inappropriate. If there are any questions or concerns please feel free to contact the dictating provider for clarification.) Harsha Huerta PA-C (electronically signed) Emergency Medicine Provider [1] Past Medical History: Diagnosis Date Atrial fibrillation (HCC) Atrial flutter (HCC) CHF (congestive heart failure) (HCC) Coronary artery disease DVT (deep venous thrombosis) (HCC) Hyperlipidemia Hypertension Hypothyroid Ovarian cancer (HCC) [2] Past Surgical History: Procedure Laterality Date APPENDECTOMY CARDIAC CATHETERIZATION FIRST RIB REMOVAL HYSTERECTOMY [3] Family History Problem Relation Name Age of Onset Hypertension Mother Stroke Mother Hyperlipidemia Mother Alzheimer's disease Mother No Known Problems Father Unknown Heart attack Sister Stroke Sister [4] Social History Socioeconomic History Marital status: Tobacco Use Smoking status: Former Current packs/day: 0.00 Average packs/day: 1 pack/day for 20.0 years (20.0 ttl pk-yrs) Types: Cigarettes Start date: 1979 Quit date: 1999 Years since quittin.5 Smokeless tobacco: Never Substance and Sexual Activity Alcohol use: Yes Comment: occasional Drug use: Never Harsha Huerta PA-C 12/01/242000 documented in this encounter [facility] 12-01-2024 Emergency department Note Patient and family came to this nurse demanding her IV be removed because she was leaving. Patient began cussing at this nurse because she was not in a room. This nurse explained to the patient we are just waiting for a room in the back and asked patient if she would speak with a provider. Patient still demanding to leave. SOO made aware. [facility] 12-01-2024 Emergency department Note Pt and family came up to window and said We are fucking leaving! Due to not wanting to wait for a room in the hospital or the ER. ER rooms are full at this time and pt has not been assigned a bed on the floor. T [facility] 12-01-2024 History and physical note Attending History and Physical Admit Date: 12/01/2024 PCP: Samantha Reyes CHIEF COMPLAINT: Atrial fibrillation Reason for Admission: Atrial fibrillation History Obtained From: patient HISTORY OF PRESENT ILLNESS: Sandrine is a 84 y.o. female with past medical history significant for atrial fibrillation, CHF, CAD, hypertension, hyperlipidemia, hypothyroidism. Patient has a history of paroxysmal atrial fibrillation and is on amiodarone, Eliquis. Patient has been doing fairly well. Patient went to see the lens inspector today and was not feeling good. Patient was feeling weak and had associated palpitation. Patient was getting short of breath while laying down. Denied any active chest pain. Patient was evaluated by lens inspector and was found to have atrial fibrillation with rapid ventricular rhythm. Patient was sent to the hospital for further treatment management. Past Medical History: Medical History[1] Past Surgical History: Surgical History[2] Social History: Social History Socioeconomic History Marital status: Spouse name: Not on file Number of children: Not on file Years of education: Not on file Highest education level: Not on file Occupational History Not on file Tobacco Use Smoking status: Former Current packs/day: 0.00 Average packs/day: 1 pack/day for 20.0 years (20.0 ttl pk-yrs) Types: Cigarettes Start date: 1979 Quit date: 2000 Years since quittin.5 Smokeless tobacco: Never Substance and Sexual Activity Alcohol use: Yes Comment: occasional Drug use: Never Sexual activity: Not on file Other Topics Concern Not on file Social History Narrative Not on file Social Drivers of Health Financial Resource Strain: Not on file Food Insecurity: Not on file Transportation Needs: Not on file Physical Activity: Not on file Stress: Not on file Social Connections: Not on file Intimate Partner Violence: Not on file Housing Stability: Not on file Family History: Family History[3] Medications Prior to Admission: Current Medications[4] - Medications Reconciliation: Medication were reviewed and verified as accurate with patient. Allergies: Allergies[5] REVIEW OF SYSTEMS: Constitutional: Negative for fever, chills, activity change and unexpected weight change. Generalized weakness HEENT: Negative for congestion, postnasal drip and sneezing. Eyes: Negative for itching and visual disturbance. Respiratory: Negative for apnea, cough, choking, chest tightness, shortness of breath, wheezing and stridor. Cardiovascular: Negative for chest pain. Positive for palpitation, orthopnea Gastrointestinal: Negative for nausea, vomiting, abdominal pain, diarrhea and blood in stool. Genitourinary: Negative for dysuria, frequency and flank pain. Musculoskeletal: Negative for myalgias and joint swelling. Skin: Negative for rash. Neurological: Negative for dizziness, tremors, seizures, syncope, facial asymmetry, speech difficulty, weakness, numbness and headaches. Hematological: Negative for adenopathy. Psychiatric/Behavioral: Negative for suicidal ideas, behavioral problems, self-injury and dysphoric mood. Vitals: BP 98/62 Pulse 83 Temp 36.9 C (98.5 F) (Temporal) Resp 16 SpO2 100% BMI Classification: Pulse Ox: SpO2 Av.5 % Min: 95 % Max: 100 % Supplemental O2: PHYSICAL EXAM: Constitutional: General: Patient is not in acute distress. Appearance: Frail looking elderly female HENT: Head: Normocephalic and atraumatic. Right Ear: External ear normal. Left Ear: External ear normal. Mouth/Throat: Mouth: Mucous membranes are moist. Pharynx: Oropharynx is clear. Eyes: Extraocular Movements: Extraocular movements intact. Conjunctiva/sclera: Conjunctivae normal. Pupils: Pupils are equal, round, and reactive to light. Cardiovascular: Comments: Irregular rhythm, normal S1-S2, no murmurs noted. Radial pulses 2+ and symmetric. Pulmonary: Effort: Pulmonary effort is normal. No respiratory distress. Breath sounds: Normal breath sounds. No stridor. No wheezing or rhonchi. Abdominal: Comments: The abdomen is soft, nondistended and nontender. There is no rebound tenderness or guarding. Bowel sounds are normal. Skin: General: Skin is warm and dry. Capillary Refill: Capillary refill takes less than 2 seconds. Coloration: Skin is not jaundiced or pale. Findings: No bruising or erythema. Neurological: General: No focal deficit present. Mental Status: Patient is alert and oriented to person, place, and time. Mental status is at baseline. Cranial Nerves: No cranial nerve deficit. Sensory: No sensory deficit. Motor: No weakness. Coordination: Coordination normal. Psychiatric: Mood and Affect: Mood normal. Musculoskeletal: NO edema DATA: CBC: No results for input(s): WBC, RBC, HGB, HCT, MCV, RDW, PLT in the last 72 hours. BMP: Recent Labs 12/01/24 1828 NA 128* K 4.6 CL 97* CO2 21* BUN 26* CREATININE 1.95* GLUCOSE 106 CALCIUM 10.8* ANIONGAP 10 LIVER PROFILE: Recent Labs 12/01/24 1828 AST 25 ALT 16 BILITOT 0.7 ALKPHOS 47 PROT 6.8 PT/INR: No results for input(s): PROTIME, INR in the last 72 hours. CARDIAC ENZYMES: No results for input(s): TROPONINI in the last 72 hours. Procalcitonin: No results found for: PROCAL Urine Culture: No results found for this or any previous visit. COVID-19 PCR: No results for input(s): COVID19 in the last 72 hours. I reviewed: [x] laboratory results [x] radiographic results At the time of today's encounter. Pt was advised of the results. Data: (CAT1) Reviewed 3 or more labs/studies ordered by another provider not previously counted (each=1, panels count as 1). (LOW: 2x CAT1 or independent historian MOD: 3x CAT1 or 1x CAT3 EXTENSIVE: 3x CAT1 and 1x CAT3) Assessment Discussed management with the ED provider and agree with hospitalization. Acute, acute on chronic, unstable/uncontrolled chronic problems/diagnoses: Atrial fibrillation Hyponatremia Hypotension Hypoxemia Stable chronic problems affecting care, new non-acute diagnoses: Chronic kidney disease stage IV Congestive heart failure, chronic Plan As a result of the above findings & factors, the following mgmt was pursued: - Plan to admit the patient to the telemetry floor Will consult cardiology Continue with the amiodarone for rate control with holding parameters Continue Eliquis for anticoagulation Patient appears to be slightly volume depleted. Will do gentle hydration while monitoring signs of volume overload Resume rest of medications from home Check urine and serum osmolality, TSH, uric acid level - am labs, replace lytes prn - PT/OT/CM/SW - delirium precautions: increase activity and limit nighttime disturbances - DVT prophylaxis: encourage ambulation and already anticoagulated Complexity: Chronic illness with severe exacerbation, progression, or side effect of tx (HIGH). Acute illness with systemic symptoms (MOD). Risk: Admission to hospital-level care was considered or occurred (HIGH). Advance Directive: No Order Anticipated Discharge - Date - 12/03/2024 - Location - Home - Pending the following -cardiology evaluation Total time spent (which include face to face and non face to face encounters) : 60minutes. Toxic drug monitoring/narrow therapeutic index drug monitoring : # Drug name : Eliquis # Route administered : Oral # Method of monitoring : CBC Extended Emergency Contact Information Primary Emergency Contact: Jamir Rivers Mobile Relation: Spouse Preferred language: [place] Bakery Helper needed? No Secondary Emergency Contact: AjvierTracey Mobile Relation: Daughter Preferred language: [place] Bakery Helper needed? No ADVANCED CARE PLANNING Sandrine Cline Silvestre : 1940 Primary Care Physician: Samantha Reyes The patient and/or family/surrogate voluntarily agreed to participate in ACP services. Patient s cognitive capacity: Alert, Orientedx3 Code Status: [x_] [FULL CODE - Continue all advanced life support: CPR,intubation,invasive procedures] [_] [DNR-CCA - DO NOT do CPR, intubation] [_] [DNR-CONCRETE RUBBER - Comfort care only] [_] DNR form [was/was not] signed Summary of discussion: The patient health care POA/ surrogate is the following: Patient. [Condition that instigated the ACP on this DOS, relevant PMH, functional status, goals of care, and whom this was discussed with including names and relationship to the patient, and any relevant advance care documentation discussion] I answered all the patient/family questions that I could within the range and scope of the current medical situation. We discussed the medical conditions, risks, benefits, outcomes, and goals of care at this time for the patient's medical issues at hand in the face of the patient's chronic issues and current presentation. Total time spent: 4 minutes were spent discussing the patient's resuscitation status, advance care planning, and end of life care, with patient and/or family/surrogate. Richie Whitney MD Division of Hospitalist Medicine [facility] [1] Past Medical History: Diagnosis Date Atrial fibrillation (HCC) Atrial flutter (HCC) CHF (congestive heart failure) (HCC) Coronary artery disease DVT (deep venous thrombosis) (HCC) Hyperlipidemia Hypertension Hypothyroid Ovarian cancer (HCC) [2] Past Surgical History: Procedure Laterality Date APPENDECTOMY CARDIAC CATHETERIZATION FIRST RIB REMOVAL HYSTERECTOMY [3] Family History Problem Relation Name Age of Onset Hypertension Mother Stroke Mother Hyperlipidemia Mother Alzheimer's disease Mother No Known Problems Father Unknown Heart attack Sister Stroke Sister [4] No current facility-administered medications for this encounter. Current Outpatient Medications: acetaminophen (Tylenol) 500 MG tablet, Take 500 mg by mouth every 4 hours as needed for mild pain (1-3)., Disp: , Rfl: amiodarone (Pacerone) 200 MG tablet, Take 1 tablet (200 mg) by mouth 2 times daily., Disp: 180 tablet, Rfl: 3 apixaban (Eliquis) 5 MG tablet, Take 5 mg by mouth 2 times daily., Disp: , Rfl: aspirin 81 MG EC tablet, Take 81 mg by mouth daily., Disp: , Rfl: Calcium Carbonate (CALCIUM 600 PO), Take 600 mg by mouth daily., Disp: , Rfl: cholecalciferol (Vitamin D-3) 1.25 MG (55881 UT) capsule, Take 50,000 Units by mouth 1 (one) time per week., Disp: , Rfl: levothyroxine (Synthroid, Levoxyl) 125 MCG tablet, Take 125 mcg by mouth every morning (before breakfast)., Disp: , Rfl: mirabegron ER (Myrbetriq) 50 MG 24 hr tablet, Take 50 mg by mouth Nightly. Do not crush, chew, or split., Disp: , Rfl: niacin 500 MG tablet, Take 500 mg by mouth 2 times daily (with meals)., Disp: , Rfl: nitroglycerin (Nitrostat) 0.4 MG SL tablet, Place 0.4 mg under the tongue every 5 minutes as needed for chest pain., Disp: , Rfl: oxybutynin XL (Ditropan-XL) 10 MG 24 hr tablet, Take 10 mg by mouth daily. Do not crush, chew, or split., Disp: , Rfl: potassium chloride CR (Klor-Con M20) 20 MEQ ER tablet, Take 20 mEq by mouth daily. Do not crush or chew., Disp: , Rfl: ramipril (Altace) 5 MG capsule, Take 1 capsule (5 mg) by mouth daily., Disp: , Rfl: rosuvastatin (Crestor) 40 MG tablet, Take 40 mg by mouth daily., Disp: , Rfl: spironolactone (Aldactone) 25 MG tablet, Take 25 mg by mouth daily., Disp: , Rfl: sucralfate (Carafate) 1 g tablet, Take 1 g by mouth daily., Disp: , Rfl: [5] Allergies Allergen Reactions Streptokinase Hives Poison Araceli Extract Itching [employer] Work Phone: 12-01-2024 Note Attending History an d Physical Admit Date: 12/01/2024 PCP: Samantha Reyes CHIEF COMPLAINT: Atrial fibrillation Reason for Admission: Atrial fibrillation History Obtained From: patient HISTORY OF PRESENT ILLNESS: Sandrine is a 84 y.o. female with past medical history significant for atrial fibrillation, CHF, CAD, hypertension, hyperlipidemia, hypothyroidism. Patient has a history of paroxysmal atrial fibrillation and is on amiodarone, Eliquis. Patient has been doing fairly well. Patient went to see the lens inspector today and was not feeling good. Patient was feeling weak and had associated palpitation. Patient was getting short of breath while laying down. Denied any active chest pain. Patient was evaluated by lens inspector and was found to have atrial fibrillation with rapid ventricular rhythm. Patient was sent to the hospital for further treatment management. Past Medical History: Medical History[1] Past Surgical History: Surgical History[2] Social History: Social History Socioeconomic History Marital status: Spouse name: Not on file Number of children: Not on file Years of education: Not on file Highest education level: Not on file Occupational History Not on file Tobacco Use Smoking status: Former Current packs/day: 0.00 Average packs/day: 1 pack/day for 20.0 years (20.0 ttl pk-yrs) Types: Cigarettes Start date: 1979 Quit date: 1999 Years since quittin.5 Smokeless tobacco: Never Substance and Sexual Activity Alcohol use: Yes Comment: occasional Drug use: Never Sexual activity: Not on file Other Topics Concern Not on file Social History Narrative Not on file Social Drivers of Health Financial Resource Strain: Not on file Food Insecurity: Not on file Transportation Needs: Not on file Physical Activity: Not on file Stress: Not on file Social Connections: Not on file Intimate Partner Violence: Not on file Housing Stability: Not on file Family History: Family History[3] Medications Prior to Admission: Current Medications[4] - Medications Reconciliation: Medication were reviewed and verified as accurate with patient. Allergies: Allergies[5] REVIEW OF SYSTEMS: Constitutional: Negative for fever, chills, activity change and unexpected weight change. Generalized weakness HEENT: Negative for congestion, postnasal drip and sneezing. Eyes: Negative for itching and visual disturbance. Respiratory: Negative for apnea, cough, choking, chest tightness, shortness of breath, wheezing and stridor. Cardiovascular: Negative for chest pain. Positive for palpitation, orthopnea Gastrointestinal: Negative for nausea, vomiting, abdominal pain, diarrhea and blood in stool. Genitourinary: Negative for dysuria, frequency and flank pain. Musculoskeletal: Negative for myalgias and joint swelling. Skin: Negative for rash. Neurological: Negative for dizziness, tremors, seizures, syncope, facial asymmetry, speech difficulty, weakness, numbness and headaches. Hematological: Negative for adenopathy. Psychiatric/Behavioral: Negative for suicidal ideas, behavioral problems, self-injury and dysphoric mood. Vitals: BP 98/62 Pulse 83 Temp 36.9 ?C (98.5 ?F) (Temporal) Resp 16 SpO2 100% BMI Classification: Pulse Ox: SpO2 Av.5 % Min: 95 % Max: 100 % Supplemental O2: PHYSICAL EXAM: Constitutional: General: Patient is not in acute distress. Appearance: Frail looking elderly female HENT: Head: Normocephalic and atraumatic. Right Ear: External ear normal. Left Ear: External ear normal. Mouth/Throat: Mouth: Mucous membranes are moist. Pharynx: Oropharynx is clear. Eyes: Extraocular Movements: Extraocular movements intact. Conjunctiva/sclera: Conjunctivae normal. Pupils: Pupils are equal, round, and reactive to light. Cardiovascular: Comments: Irregular rhythm, normal S1-S2, no murmurs noted. Radial pulses 2+ and symmetric. Pulmonary: Effort: Pulmonary effort is normal. No respiratory distress. Breath sounds: Normal breath sounds. No stridor. No wheezing or rhonchi. Abdominal: Comments: The abdomen is soft, nondistended and nontender. There is no rebound tenderness or guarding. Bowel sounds are normal. Skin: General: Skin is warm and dry. Capillary Refill: Capillary refill takes less than 2 seconds. Coloration: Skin is not jaundiced or pale. Findings: No bruising or erythema. Neurological: General: No focal deficit present. Mental Status: Patient is alert and oriented to person, place, and time. Mental status is at baseline. Cranial Nerves: No cranial nerve deficit. Sensory: No sensory deficit. Motor: No weakness. Coordination: Coordination normal. Psychiatric: Mood and Affect: Mood normal. Musculoskeletal: NO edema DATA: CBC: No results for input(s): WBC, RBC, HGB, HCT, MCV, RDW, PLT in the last 72 hours. BMP: Recent Labs 12/01/24 1828 NA 128* K 4.6 (more content not included)... [facility] 12-01-2024 History and physical note Attending History and Physical Admit Date: 12/01/2024 PCP: Samantha Reyes CHIEF COMPLAINT: Atrial fibrillation Reason for Admission: Atrial fibrillation History Obtained From: patient HISTORY OF PRESENT ILLNESS: Sandrine is a 84 y.o. female with past medical history significant for atrial fibrillation, CHF, CAD, hypertension, hyperlipidemia, hypothyroidism. Patient has a history of paroxysmal atrial fibrillation and is on amiodarone, Eliquis. Patient has been doing fairly well. Patient went to see the lens inspector today and was not feeling good. Patient was feeling weak and had associated palpitation. Patient was getting short of breath while laying down. Denied any active chest pain. Patient was evaluated by lens inspector and was found to have atrial fibrillation with rapid ventricular rhythm. Patient was sent to the hospital for further treatment management. Past Medical History: Medical History[1] Past Surgical History: Surgical History[2] Social History: Social History Socioeconomic History Marital status: Spouse name: Not on file Number of children: Not on file Years of education: Not on file Highest education level: Not on file Occupational History Not on file Tobacco Use Smoking status: Former Current packs/day: 0.00 Average packs/day: 1 pack/day for 20.0 years (20.0 ttl pk-yrs) Types: Cigarettes Start date: 1979 Quit date: 2000 Years since quittin.5 Smokeless tobacco: Never Substance and Sexual Activity Alcohol use: Yes Comment: occasional Drug use: Never Sexual activity: Not on file Other Topics Concern Not on file Social History Narrative Not on file Social Drivers of Health Financial Resource Strain: Not on file Food Insecurity: Not on file Transportation Needs: Not on file Physical Activity: Not on file Stress: Not on file Social Connections: Not on file Intimate Partner Violence: Not on file Housing Stability: Not on file Family History: Family History[3] Medications Prior to Admission: Current Medications[4] - Medications Reconciliation: Medication were reviewed and verified as accurate with patient. Allergies: Allergies[5] REVIEW OF SYSTEMS: Constitutional: Negative for fever, chills, activity change and unexpected weight change. Generalized weakness HEENT: Negative for congestion, postnasal drip and sneezing. Eyes: Negative for itching and visual disturbance. Respiratory: Negative for apnea, cough, choking, chest tightness, shortness of breath, wheezing and stridor. Cardiovascular: Negative for chest pain. Positive for palpitation, orthopnea Gastrointestinal: Negative for nausea, vomiting, abdominal pain, diarrhea and blood in stool. Genitourinary: Negative for dysuria, frequency and flank pain. Musculoskeletal: Negative for myalgias and joint swelling. Skin: Negative for rash. Neurological: Negative for dizziness, tremors, seizures, syncope, facial asymmetry, speech difficulty, weakness, numbness and headaches. Hematological: Negative for adenopathy. Psychiatric/Behavioral: Negative for suicidal ideas, behavioral problems, self-injury and dysphoric mood. Vitals: BP 98/62 Pulse 83 Temp 36.9 C (98.5 F) (Temporal) Resp 16 SpO2 100% BMI Classification: Pulse Ox: SpO2 Av.5 % Min: 95 % Max: 100 % Supplemental O2: PHYSICAL EXAM: Constitutional: General: Patient is not in acute distress. Appearance: Frail looking elderly female HENT: Head: Normocephalic and atraumatic. Right Ear: External ear normal. Left Ear: External ear normal. Mouth/Throat: Mouth: Mucous membranes are moist. Pharynx: Oropharynx is clear. Eyes: Extraocular Movements: Extraocular movements intact. Conjunctiva/sclera: Conjunctivae normal. Pupils: Pupils are equal, round, and reactive to light. Cardiovascular: Comments: Irregular rhythm, normal S1-S2, no murmurs noted. Radial pulses 2+ and symmetric. Pulmonary: Effort: Pulmonary effort is normal. No respiratory distress. Breath sounds: Normal breath sounds. No stridor. No wheezing or rhonchi. Abdominal: Comments: The abdomen is soft, nondistended and nontender. There is no rebound tenderness or guarding. Bowel sounds are normal. Skin: General: Skin is warm and dry. Capillary Refill: Capillary refill takes less than 2 seconds. Coloration: Skin is not jaundiced or pale. Findings: No bruising or erythema. Neurological: General: No focal deficit present. Mental Status: Patient is alert and oriented to person, place, and time. Mental status is at baseline. Cranial Nerves: No cranial nerve deficit. Sensory: No sensory deficit. Motor: No weakness. Coordination: Coordination normal. Psychiatric: Mood and Affect: Mood normal. Musculoskeletal: NO edema DATA: CBC: No results for input(s): WBC, RBC, HGB, HCT, MCV, RDW, PLT in the last 72 hours. BMP: Recent Labs 12/01/24 1828 NA 128* K 4.6 CL 97* CO2 21* BUN 26* CREATININE 1.95* GLUCOSE 106 CALCIUM 10.8* ANIONGAP 10 LIVER PROFILE: Recent Labs 12/01/24 1828 AST 25 ALT 16 BILITOT 0.7 ALKPHOS 47 PROT 6.8 PT/INR: No results for input(s): PROTIME, INR in the last 72 hours. CARDIAC ENZYMES: No results for input(s): TROPONINI in the last 72 hours. Procalcitonin: No results found for: PROCAL Urine Culture: No results found for this or any previous visit. COVID-19 PCR: No results for input(s): COVID19 in the last 72 hours. I reviewed: [x] laboratory results [x] radiographic results At the time of today's encounter. Pt was advised of the results. Data: (CAT1) Reviewed 3 or more labs/studies ordered by another provider not previously counted (each=1, panels count as 1). (LOW: 2x CAT1 or independent historian MOD: 3x CAT1 or 1x CAT3 EXTENSIVE: 3x CAT1 and 1x CAT3) Assessment Discussed management with the ED provider and agree with hospitalization. Acute, acute on chronic, unstable/uncontrolled chronic problems/diagnoses: Atrial fibrillation Hyponatremia Hypotension Hypoxemia Stable chronic problems affecting care, new non-acute diagnoses: Chronic kidney disease stage IV Congestive heart failure, chronic Plan As a result of the above findings & factors, the following mgmt was pursued: - Plan to admit the patient to the telemetry floor Will consult cardiology Continue with the amiodarone for rate control with holding parameters Continue Eliquis for anticoagulation Patient appears to be slightly volume depleted. Will do gentle hydration while monitoring signs of volume overload Resume rest of medications from home Check urine and serum osmolality, TSH, uric acid level - am labs, replace lytes prn - PT/OT/CM/SW - delirium precautions: increase activity and limit nighttime disturbances - DVT prophylaxis: encourage ambulation and already anticoagulated Complexity: Chronic illness with severe exacerbation, progression, or side effect of tx (HIGH). Acute illness with systemic symptoms (MOD). Risk: Admission to hospital-level care was considered or occurred (HIGH). Advance Directive: No Order Anticipated Discharge - Date - 12/03/2024 - Location - Home - Pending the following -cardiology evaluation Total time spent (which include face to face and non face to face encounters) : 60minutes. Toxic drug monitoring/narrow therapeutic index drug monitoring : # Drug name : Eliquis # Route administered : Oral # Method of monitoring : CBC Extended Emergency Contact Information Primary Emergency Contact: Jamir Rivers Mobile Relation: Spouse Preferred language: [place] Bakery Helper needed? No Secondary Emergency Contact: Tracey Herrera Mobile Relation: Daughter Preferred language: [place] Bakery Helper needed? No ADVANCED CARE PLANNING Sandrine Watsonan : 1940 Primary Care Physician: Samantha Reyes The patient and/or family/surrogate voluntarily agreed to participate in ACP services. Patient s cognitive capacity: Alert, Orientedx3 Code Status: [x_] [FULL CODE - Continue all advanced life support: CPR,intubation,invasive procedures] [_] [DNR-CCA - DO NOT do CPR, intubation] [_] [DNR-CONCRETE RUBBER - Comfort care only] [_] DNR form [was/was not] signed Summary of discussion: The patient health care POA/ surrogate is the following: Patient. [Condition that instigated the ACP on this DOS, relevant PMH, functional status, goals of care, and whom this was discussed with including names and relationship to the patient, and any relevant advance care documentation discussion] I answered all the patient/family questions that I could within the range and scope of the current medical situation. We discussed the medical conditions, risks, benefits, outcomes, and goals of care at this time for the patient's medical issues at hand in the face of the patient's chronic issues and current presentation. Total time spent: 4 minutes were spent discussing the patient's resuscitation status, advance care planning, and end of life care, with patient and/or family/surrogate. Richie Whitney MD [facility] [1] Past Medical History: Diagnosis Date Atrial fibrillation (HCC) Atrial flutter (HCC) CHF (congestive heart failure) (HCC) Coronary artery disease DVT (deep venous thrombosis) (HCC) Hyperlipidemia Hypertension Hypothyroid Ovarian cancer (HCC) [2] Past Surgical History: Procedure Laterality Date APPENDECTOMY CARDIAC CATHETERIZATION FIRST RIB REMOVAL HYSTERECTOMY [3] Family History Problem Relation Name Age of Onset Hypertension Mother Stroke Mother Hyperlipidemia Mother Alzheimer's disease Mother No Known Problems Father Unknown Heart attack Sister Stroke Sister [4] No current facility-administered medications for this encounter. Current Outpatient Medications: acetaminophen (Tylenol) 500 MG tablet, Take 500 mg by mouth every 4 hours as needed for mild pain (1-3)., Disp: , Rfl: amiodarone (Pacerone) 200 MG tablet, Take 1 tablet (200 mg) by mouth 2 times daily., Disp: 180 tablet, Rfl: 3 apixaban (Eliquis) 5 MG tablet, Take 5 mg by mouth 2 times daily., Disp: , Rfl: aspirin 81 MG EC tablet, Take 81 mg by mouth daily., Disp: , Rfl: Calcium Carbonate (CALCIUM 600 PO), Take 600 mg by mouth daily., Disp: , Rfl: cholecalciferol (Vitamin D-3) 1.25 MG (05687 UT) capsule, Take 50,000 Units by mouth 1 (one) time per week., Disp: , Rfl: levothyroxine (Synthroid, Levoxyl) 125 MCG tablet, Take 125 mcg by mouth every morning (before breakfast)., Disp: , Rfl: mirabegron ER (Myrbetriq) 50 MG 24 hr tablet, Take 50 mg by mouth Nightly. Do not crush, chew, or split., Disp: , Rfl: niacin 500 MG tablet, Take 500 mg by mouth 2 times daily (with meals)., Disp: , Rfl: nitroglycerin (Nitrostat) 0.4 MG SL tablet, Place 0.4 mg under the tongue every 5 minutes as needed for chest pain., Disp: , Rfl: oxybutynin XL (Ditropan-XL) 10 MG 24 hr tablet, Take 10 mg by mouth daily. Do not crush, chew, or split., Disp: , Rfl: potassium chloride CR (Klor-Con M20) 20 MEQ ER tablet, Take 20 mEq by mouth daily. Do not crush or chew., Disp: , Rfl: ramipril (Altace) 5 MG capsule, Take 1 capsule (5 mg) by mouth daily., Disp: , Rfl: rosuvastatin (Crestor) 40 MG tablet, Take 40 mg by mouth daily., Disp: , Rfl: spironolactone (Aldactone) 25 MG tablet, Take 25 mg by mouth daily., Disp: , Rfl: sucralfate (Carafate) 1 g tablet, Take 1 g by mouth daily., Disp: , Rfl: [5] Allergies Allergen Reactions Streptokinase Hives Poison Araceli Extract Itching documented in this encounter [facility] 12-01-2024 Emergency department Note Pt son expressed frustration to this nurse asking how long it will take for patient to get a room. Son was under the impression from the lens inspector she was already admitted to the hospital. Provided education that the patient just had lab work done and it is unknown at this time wether or not she was admitted as we have no information. Patient son stated this is crazy. [facility] 12-01-2024 Physician Emergency department Note Emergency Department Encounter [facility] EMERGENCY DEPT Patient: Sandrine Rivers : 1940 Date of Evaluation: 12/01/2024 ED Supervising Physician: Krys Torres MD I personally evaluated Sandrine Rivers and made/approved the management plan and take responsibility for the patient management. This will serve as my Supervisory note and shared attestation. I did perform a substantive portion of the visit including all aspects of the Medical Decision Making. I wore appropriate PPE for the entirety of this encounter. In brief, Sandrine Rivers is a 84 y.o. that presents to the emergency department for arrhythmia. Patient with history of A-fib on amiodarone, Eliquis, heart failure with reduced ejection fraction, prior failed cardioversion, cardiomyopathy with prior CABG and PCI, CKD and hypothyroidism presented to the heart failure clinic today with fatigue, palpitations, orthopnea and sent here to be admitted. She was recently cardioverted about 1 week ago and had recurrence of symptoms. Reports compliance with her medications. Denies any nausea vomiting cough any chest pain any bloody stools. Denies any focal weakness numbness tingling. Focused exam: Vitals borderline low blood pressure otherwise stable no distress Heart sounds are regular lungs clear bilaterally Lower extremities without edema Brief ED course/MDM: 84-year-old female here with palpitations fatigue generalized weakness shortness of breath on exertion. Differential symptomatic A-fib, heart failure, anemia, electrolyte derangement, infection. Medical history impacting this visit includes heart failure and A-fib. EKG shows A-fib rate is controlled. Labs pending. Will admit to the hospitalist for evaluation by cardiology for further treatment options. I reviewed outpatient office visit from 12/01/2024 highlighting her care regarding her heart failure and atrial fib. Diagnostics interpreted by me: Xray(s) chest x-ray without acute infiltrate I personally discussed the patient's management with other clinicians: none All diagnostic, treatment, and disposition decisions were made by myself in conjunction with the [facility]. For all further details of the patient's emergency department visit, please see their documentation. (Comment: Please note this report has been produced using speech recognition software and may contain errors related to that system including errors in grammar, punctuation, and spelling, as well as words and phrases that may be inappropriate. If there are any questions or concerns please feel free to contact the dictating provider for clarification.) Krys Torres MD [employer] Krys Torres MD 12/01/242007 [facility] Phone: 12-01-2024 Physician Emergency department Note EMERGENCY DEPARTMENT ENCOUNTER Pt Name: Sandrine Rivers Birthdate 1940 Date of evaluation: 12/01/2024 ED Provider: Harsha Huerta PA-C CHIEF COMPLAINT Chief Complaint Patient presents with Irregular Heart Beat Pt was at [facility] Office and having an episode of afib. Hx of afib, takes blood thinner, recent cardioversion HISTORY OF PRESENT ILLNESS (Location/Symptom, Timing/Onset, Context/Setting, Quality, Duration, Modifying Factors, Severity) Note limiting factors. I wore appropriate PPE for the entirety of this encounter. HPI Sandrine Rivers is a 84 y.o. who presents to the emergency department with chief complaint of Patient is a pleasant 84-year-old female reportedly sent in from lens inspector office for consideration for treatment for her A-fib. She has not had long-term paroxysmal A-fib for which she is anticoagulated rate controlled as well as on amiodarone as an antiarrhythmic. At time of my exam patient denies chest pain difficulty breathing shortness of breath nausea vomiting lightheadedness or any other complaints. There is a cardiology note from earlier today, notes the patient has been feeling worse with NYHA class III fatigue palpitations orthopnea but no chest pain PND or syncopal episodes. Previously had DCCV for A-fib to NSR. Chart makes mention of cardioversion scheduled in 2 weeks but does not state patient was told to go to the emergency department. Prescribed medications include amiodarone ramipril Eliquis Synthroid Myrbetriq Nitrostat Ditropan Klor-Con Crestor spironolactone and Carafate with streptokinase allergy noted. Documented medical history includes prior SBO coronary artery disease status post stenting hypothyroidism hyperlipidemia GERD esophagitis STARK stage III kidney disease persistent A-fib aortic valve stenosis. Nursing Notes were reviewed. Limitations to history: None Outside historians: None REVIEW OF SYSTEMS Review of Systems Pertinent positives and negatives as per HPI. PAST MEDICAL HISTORY Medical History[1] SURGICAL HISTORY Surgical History[2] CURRENT MEDICATIONS Previous Medications ACETAMINOPHEN (TYLENOL) 500 MG TABLET Take 500 mg by mouth every 4 hours as needed for mild pain (1-3). AMIODARONE (PACERONE) 200 MG TABLET Take 1 tablet (200 mg) by mouth 2 times daily. APIXABAN (ELIQUIS) 5 MG TABLET Take 5 mg by mouth 2 times daily. ASPIRIN 81 MG EC TABLET Take 81 mg by mouth daily. CALCIUM CARBONATE (CALCIUM 600 PO) Take 600 mg by mouth daily. CHOLECALCIFEROL (VITAMIN D-3) 1.25 MG (57634 UT) CAPSULE Take 50,000 Units by mouth 1 (one) time per week. LEVOTHYROXINE (SYNTHROID, LEVOXYL) 125 MCG TABLET Take 125 mcg by mouth every morning (before breakfast). MIRABEGRON ER (MYRBETRIQ) 50 MG 24 HR TABLET Take 50 mg by mouth Nightly. Do not crush, chew, or split. NIACIN 500 MG TABLET Take 500 mg by mouth 2 times daily (with meals). NITROGLYCERIN (NITROSTAT) 0.[address] 0.4 mg under the tongue every 5 minutes as needed for chest pain. OXYBUTYNIN XL (DITROPAN-XL) 10 MG 24 HR TABLET Take 10 mg by mouth daily. Do not crush, chew, or split. POTASSIUM CHLORIDE CR (KLOR-CON M20) 20 MEQ ER TABLET Take 20 mEq by mouth daily. Do not crush or chew. RAMIPRIL (ALTACE) 5 MG CAPSULE Take 1 capsule (5 mg) by mouth daily. ROSUVASTATIN (CRESTOR) 40 MG TABLET Take 40 mg by mouth daily. SPIRONOLACTONE (ALDACTONE) 25 MG TABLET Take 25 mg by mouth daily. SUCRALFATE (CARAFATE) 1 G TABLET Take 1 g by mouth daily. ALLERGIES Streptokinase and Poison araceli extract FAMILY HISTORY Family History[3] SOCIAL HISTORY Social History[4] SCREENINGS PHYSICAL EXAM ED Triage Vitals [12/01/24 1725] Temp Heart Rate Resp BP 36.9 C (98.5 F) 83 16 98/62 SpO2 Temp Source Heart Rate Source Patient Position 100 % Temporal Monitor -- BP Location FiO2 (%) -- -- General: Alert, no acute distress Skin: Warm, dry, intact Head: Normocephalic, atraumatic Eye: Normal conjunctiva, ENMT: Oral mucosa moist, trachea midline without tenderness or crepitus Cardiovascular: Irregularly irregular peripheral heart rate in the 80s with palpation of the right radial artery, normal peripheral perfusion, no edema calf tenderness or venous cords bilaterally Respiratory: Lungs clear to auscultation, nonlabored respirations, breath sounds equal, symmetrical expansion Chest wall: No tenderness, no deformity Gastrointestinal: Soft, nontender 4 quadrants with no rebound or guarding Back: Nontender midline thoracic and lumbar spines without step-off deformities or crepitus, no flank tenderness noted bilaterally MSK: No swelling, No deformity, no tenderness all extremities other than noted above Neuro: GCS 15 Psych: Cooperative, appropriate mood and affect Physical Exam DIAGNOSTIC RESULTS Procedures/EKG: EKG was reviewed by myself. Physician EKG interpretation can be found in [facility] RADIOLOGY (Per Emergency Physician): Interpretation per the Radiologist below, if available at the time of this note: XR chest 2 views (Results Pending) ED BEDSIDE ULTRASOUND: Performed by ED Physician - none LABS: Labs Reviewed NT PRO BNP - Abnormal Result Value NT PRO BNP 2,740 (*) COMPREHENSIVE METABOLIC PANEL - Abnormal SODIUM 128 (*) POTASSIUM 4.6 CHLORIDE 97 (*) CARBON DIOXIDE 21 (*) ANION GAP 10 UREA NITROGEN 26 (*) CREATININE 1.95 (*) GLUCOSE 106 CALCIUM 10.8 (*) AST (SGOT) 25 ALT 16 ALKALINE PHOSPHATASE 47 ALBUMIN 3.8 BILIRUBIN, TOTAL 0.7 TOTAL PROTEIN 6.8 eGFR 25.0 (*) HIGH SENSITIVITY TROPONIN, SERIAL BASELINE - Abnormal Troponin HS Serial Baseline 21 (*) MAGNESIUM - Normal MAGNESIUM 1.6 Narrative: Higher values can be expected in females during menses. HIGH SENSITIVITY TROPONIN, SERIAL, SECOND TEST CBC WITH AUTO DIFFERENTIAL All other labs were within normal range or not returned as of this dictation. EMERGENCY DEPARTMENT COURSE and DIFFERENTIAL DIAGNOSIS/MDM: Vitals: Vitals: 12/01/24 1725 BP: 98/62 Pulse: 83 Resp: 16 Temp: 36.9 C (98.5 F) TempSrc: Temporal SpO2: 100% Discussed history and physical exam, results, and medical decision making and disposition plan with my supervising physician Dr. Torres who is in agreement with this plan but did not personally see the patient prior to disposition. 84-year-old female reportedly sent in by the cardiology/heart failure team for consideration for cardioversion versus alternate method to get her out of A-fib. Here in the emergency department she had a slightly soft blood pressure at 98/62 with otherwise unremarkable vital signs. She had no complaints. She had a irregularly irregular nontachycardic heart rate. Workup here in the emergency department Showed mag of 1.6 BNP 2740 without prior for comparison troponin mildly elevated at 21. Sodium of 128 previously 136 2 weeks ago. Creatinine is baseline for her at 1.95. EKG showed A-fib without RVR. Discussed with [facility], they tell me because the [facility] attending is not part of the heart failure team they are declining the admission. They tell me that patient needs to be admitted to the medicine service with heart failure team consultation. Subsequently discussed with the medicine team who accepted the patient. Diagnoses as of 12/01/242000 Atrial fibrillation, unspecified type (HCC) Hyponatremia Medications sodium chloride 0.9 % bolus 500 mL (500 mL IntraVENous New Bag 12/01/24 1833) REVAL: 1939: 1942: Patient discussed with Dr. Amador with cardiology.. Tells me as this patient is currently established with the heart failure clinic and the [facility]CS attending lens inspector who is on duty this week is not part of the heart failure team they have been told to decline these patients. Her recommendation is to reach out to the medicine service for admission with subsequent heart failure team consultation by the medicine team. 1957: Accept by Dr Whitney with medicine. CRITICAL CARE TIME CONSULTS: None PROCEDURES: Unless otherwise noted below, none Procedures Patients symptoms are consistent with sepsis, severe sepsis, or septic shock (If yes use .sepsiscoremeasure): FINAL IMPRESSION 1. Atrial fibrillation, unspecified type (HCC) 2. Hyponatremia DISPOSITION Admit 12/01/2024 07:59:46 PM PATIENT REFERRED TO: No follow-up provider specified. DISCHARGE MEDICATIONS: New Prescriptions No medications on file (Comment: Please note this report has been produced using speech recognition software and may contain errors related to that system including errors in grammar, punctuation, and spelling, as well as words and phrases that may be inappropriate. If there are any questions or concerns please feel free to contact the dictating provider for clarification.) Harsha Huerta PA-C (electronically signed) Emergency Medicine Provider [1] Past Medical History: Diagnosis Date Atrial fibrillation (HCC) Atrial flutter (HCC) CHF (congestive heart failure) (HCC) Coronary artery disease DVT (deep venous thrombosis) (HCC) Hyperlipidemia Hypertension Hypothyroid Ovarian cancer (HCC) [2] Past Surgical History: Procedure Laterality Date APPENDECTOMY CARDIAC CATHETERIZATION FIRST RIB REMOVAL HYSTERECTOMY [3] Family History Problem Relation Name Age of Onset Hypertension Mother Stroke Mother Hyperlipidemia Mother Alzheimer's disease Mother No Known Problems Father Unknown Heart attack Sister Stroke Sister [4] Social History Socioeconomic History Marital status: Tobacco Use Smoking status: Former Current packs/day: 0.00 Average packs/day: 1 pack/day for 20.0 years (20.0 ttl pk-yrs) Types: Cigarettes Start date: 1979 Quit date: 1999 Years since quittin.5 Smokeless tobacco: Never Substance and Sexual Activity Alcohol use: Yes Comment: occasional Drug use: Never Harsha Huerta PA-C 12/01/242000 [facility] 12-01-2024 History of Present illness Narrative CARDIOLOGY HF PROGRESS NOTE Today's Date: 12/01/2024 Chart and interval events reviewed. Chief Complaint Chief Complaint Patient presents with Follow-up Atrial Fibrillation Congestive Heart Failure Subjective: Sandrine Rivers is a 84 y.o. female with recently diagnosed HFrEF 35-40%, Stage C, NYHA class III, 2/2 ICM s/p CABG and remote PCI, +3 TR, afib/aflutter s/p failed 2 x DCCV (last about 1 year ago) presented for an urgent follow-up appointment. Patient had a cardioversion done on November 24 while on amiodarone for at least 2 weeks but now is back in a flutter/A-fib with rate controlled. Patient is feeling worse again with NYHA class III, fatigue, palpitations. She has had a syncopal episodes while standing up when she felt dizzy lightheaded but she did not hit her head. ECG: a flutter with variable block, controlled rate at 75 bpm DCC 11/24/2024 Successful DCCV from Afib to NSR. Cardiac Cath 10/02/2024 40% Mid LAD lesion Stent widely patent SVG to Diag patent Echo 10/01/2024 Mild Concentric left ventricular hypertrophy Moderate to severe generalized LV hypokinesis LVEF 35-40% Left atrium is severely enlarged. Right atrium is moderately enlarged Mild Mitral valve insufficiency (1+) Moderately Severe (3+) tricuspid valve insufficiency Aortic valve right coronary cusp mildly calcified with restricted leaflet excursion Trivial MR Nuclear Stress Test 04/10/2024 Baseline Atrial Fib Rest and Stress nuclear imagine with uniform tracer uptake and myocardial perfusion LVEF 63% Cardiac Cath 11/10/2015 Widely patent LAD Stent Widely patient saphenous vein graft to diagonal Atretic PATINO to the LAD Normal left circumflex, OM, and RCA Past Medical History: Medical History[1] Past Surgical History Surgical History[2] Family History Family History[3] Social History Social History[4] Allergies: Allergies[5] Current Medications: Current Medications[6] Review of Systems: Review of Systems Constitutional: Positive for fatigue. Respiratory: Positive for chest tightness and shortness of breath. Cardiovascular: Positive for palpitations. Negative for chest pain and leg swelling. Gastrointestinal: Positive for abdominal distention. Neurological: Positive for dizziness and light-headedness. Negative for syncope. Vital Signs: Vitals: 12/01/24 1536 BP: 92/60 BP Location: Left arm Patient Position: Sitting BP Cuff Size: Adult Pulse: 79 SpO2: 95% Weight: 170 lb 12.8 oz (77.5 kg) Height: 5' 4.5 (1.638 m) Body mass index is 28.86 kg/m . Wt Readings from Last 3 Encounters: 12/01/24 170 lb 12.8 oz (77.5 kg) 11/24/24 172 lb (78 kg) 11/11/24 172 lb 6.4 oz (78.2 kg) Physical Exam Vitals reviewed. Constitutional: Appearance: Normal appearance. HENT: Head: Normocephalic and atraumatic. Nose: Nose normal. Mouth/Throat: Mouth: Mucous membranes are moist. Eyes: General: No scleral icterus. Conjunctiva/sclera: Conjunctivae normal. Neck: Comments: Mildly elevated JVD Cardiovascular: Rate and Rhythm: Normal rate. Rhythm irregular. Pulses: Normal pulses. Heart sounds: Normal heart sounds. Pulmonary: Effort: Pulmonary effort is normal. Breath sounds: Normal breath sounds. Abdominal: General: Abdomen is flat. There is distension. Palpations: Abdomen is soft. Musculoskeletal: General: Normal range of motion. Cervical back: Normal range of motion and neck supple. Skin: General: Skin is warm and dry. Neurological: General: No focal deficit present. Mental Status: She is alert. Psychiatric: Mood and Affect: Mood normal. Behavior: Behavior normal. CBC: No results for input(s): WBC, HGB, HCT, PLT in the last 72 hours. BMP: Recent Labs 12/01/24 1828 NA 128* K 4.6 CL 97* CO2 21* BUN 26* CREATININE 1.95* CMP: Lab Results Component Value Date NA 128 (L) 12/01/2024 K 4.6 12/01/2024 CL 97 (L) 12/01/2024 CO2 21 (L) 12/01/2024 BUN 26 (H) 12/01/2024 CREATININE 1.95 (H) 12/01/2024 GLUCOSE 106 12/01/2024 CALCIUM 10.8 (H) 12/01/2024 PROT 6.8 12/01/2024 BILITOT 0.7 12/01/2024 ALKPHOS 47 12/01/2024 AST 25 12/01/2024 ALT 16 12/01/2024 Magnesium: Lab Results Component Value Date MG 1.6 12/01/2024 LFT: Lab Results Component Value Date ALT 16 12/01/2024 AST 25 12/01/2024 ALKPHOS 47 12/01/2024 BILITOT 0.7 12/01/2024 INR: Lab Results Component Value Date INR 2.6 (H) 03/07/2022 INR 3 (H) 02/28/2022 INR 2.5 (H) 02/21/2022 PRO-BNP: No components found for: NTPROBNP TROPONIN: No results found for: TROPONINI TSH: No results found for: TSH Lipid Profile: No results found for: TRIG, HDL, LDLCALC, CHOL Hemoglobin A1C: No results found for: HGBA1C PEGGY: No results found for: PEGGY Ferritin: No results found for: FERRITIN HIV: No results found for: [id number] EKG: See Report Echo: See Report EF: No components found for: LVEF, LVEFMODE Diagnosis Plan 1. Persistent atrial fibrillation (HCC) [facility]rophys[facility] ACH 2. Acute on chronic systolic heart failure ([facility]) ECG 12 lead - CLINIC PERFORMED 3. Atrial flutter, unspecified type ([facility]) [facility] Electrophysiology ACH 4. Chronic HFrEF (heart failure with reduced ejection fraction) ([facility]) 5. Essential hypertension 6. 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 7. S/P CABG (coronary artery bypass graft) Heart Failure Assessment NYHA class III-A - There is limitation of physical activity. The patient is comfortable at rest, but ordinary activity causes fatigue, palpitations or shortness of breath. This patient's heart failure is best characterized as acute on chronic systolic heart failure This patient's heart failure is due to ischemic cardiomyopathy Plan Heart failure care plan: up-titrate HF medications The patient has received education on the following topics: dietary sodium restriction, heart failure medications, minimizing or avoiding NSAIDs, the importance of physical activity, minimizing alcohol intake, prognosis and end of life issues, referral for education program, smoking cessation, symptom management and weight monitoring Next planned office visit is in one month Acute on chronic HFrEF, 35-40%, Stage C, NYHA class III. Patient is close to euvolemic on exam and cool to touch. Discussed with patient and her family ( and son-in-law) my recommendation to be admitted to the hospital given recent syncopal episode and now back in atrial fibrillation/atrial flutter likely in low cardiac output; patient is agreeable to go to emergency room for further workup - Reduce ramipril to 1.25 mg daily due to hypotension -Continue spironolactone -Cannot be on SGLT2 due to - Patient will benefit from being in a normal sinus rhythm; inpatient will consult electrophysiology for further workup? AV node ablation with upgrade to [employer]-P -poor prognosis Aflutter/afib; patient will benefit from being in NSR; failed 3 DCCV 1 as recent as 2 weeks while on amiodarone -Recommended to be admitted to the hospital for rate control and EP evaluation for possible [employer]-P - Continue amiodarone -continue Eliquis CAD s/p recent [facility] that showed stable CAD -aspirin, rosuvastatin, Eliquis HTN stable -continue as above Subjective / Objective Symptoms include dizziness, fatigue and dyspnea I, Maggie Huggins MD, provided Sandrine Rivers ongoing care for their single serious or complex condition described above including HFrEF, CAD, afib/aflutter. I assume responsibility for the patient's ongoing medical care for this condition(s). [1] Past Medical History: Diagnosis Date Atrial fibrillation (HCC) Atrial flutter (HCC) CHF (congestive heart failure) (HCC) Coronary artery disease DVT (deep venous thrombosis) (HCC) Hyperlipidemia Hypertension Hypothyroid Ovarian cancer (HCC) [2] Past Surgical History: Procedure Laterality Date APPENDECTOMY CARDIAC CATHETERIZATION FIRST RIB REMOVAL HYSTERECTOMY [3] Family History Problem Relation Name Age of Onset Hypertension Mother Stroke Mother Hyperlipidemia Mother Alzheimer's disease Mother No Known Problems Father Unknown Heart attack Sister Stroke Sister [4] Social History Tobacco Use Smoking status: Former Current packs/day: 0.00 Average packs/day: 1 pack/day for 20.0 years (20.0 ttl pk-yrs) Types: Cigarettes Start date: 1979 Quit date: 1999 Years since quittin.5 Smokeless tobacco: Never Substance Use Topics Alcohol use: Yes Comment: occasional Drug use: Never [5] Allergies Allergen Reactions Streptokinase Hives Poison Araceli Extract Itching [6] Current Outpatient Medications Medication Sig Dispense Refill acetaminophen (Tylenol) 500 MG tablet Take 500 mg by mouth every 4 hours as needed for mild pain (1-3). amiodarone (Pacerone) 200 MG tablet Take 1 tablet (200 mg) by mouth 2 times daily. 180 tablet 3 apixaban (Eliquis) 5 MG tablet Take 5 mg by mouth 2 times daily. aspirin 81 MG EC tablet Take 81 mg by mouth daily. Calcium Carbonate (CALCIUM 600 PO) Take 600 mg by mouth daily. cholecalciferol (Vitamin D-3) 1.25 MG (64360 UT) capsule Take 50,000 Units by mouth 1 (one) time per week. levothyroxine (Synthroid, Levoxyl) 125 MCG tablet Take 125 mcg by mouth every morning (before breakfast). mirabegron ER (Myrbetriq) 50 MG 24 hr tablet Take 50 mg by mouth Nightly. Do not crush, chew, or split. niacin 500 MG tablet Take 500 mg by mouth 2 times daily (with meals). nitroglycerin (Nitrostat) 0.[address] 0.4 mg under the tongue every 5 minutes as needed for chest pain. oxybutynin XL (Ditropan-XL) 10 MG 24 hr tablet Take 10 mg by mouth daily. Do not crush, chew, or split. potassium chloride CR (Klor-Con M20) 20 MEQ ER tablet Take 20 mEq by mouth daily. Do not crush or chew. rosuvastatin (Crestor) 40 MG tablet Take 40 mg by mouth daily. spironolactone (Aldactone) 25 MG tablet Take 25 mg by mouth daily. sucralfate (Carafate) 1 g tablet Take 1 g by mouth daily. ramipril (Altace) 1.25 MG capsule Take 1 capsule (1.25 mg) by mouth daily. 90 capsule 3 No current facility-administered medications for this visit. documented in this encounter [facility] 12-01-2024 Note CARDIOLOGY HF PROGRE SS NOTE Today's Date: 12/01/2024 Chart and interval events reviewed. Chief Complaint Chief Complaint Patient presents with Follow-up Atrial Fibrillation Congestive Heart Failure Subjective: Sandrine Rivers is a 84 y.o. female with recently diagnosed HFrEF 35-40%, Stage C, NYHA class III, 2/2 ICM s/p CABG and remote PCI, +3 TR, afib/aflutter s/p failed 2 x DCCV (last about 1 year ago) presented for an urgent follow-up appointment. Patient had a cardioversion done on November 24 while on amiodarone for at least 2 weeks but now is back in a flutter/A-fib with rate controlled. Patient is feeling worse again with NYHA class III, fatigue, palpitations. She has had a syncopal episodes while standing up when she felt dizzy lightheaded but she did not hit her head. ECG: a flutter with variable block, controlled rate at 75 bpm DCC 11/24/2024 Successful DCCV from Afib to NSR. Cardiac Cath 10/02/2024 40% Mid LAD lesion Stent widely patent SVG to Diag patent Echo 10/01/2024 Mild Concentric left ventricular hypertrophy Moderate to severe generalized LV hypokinesis LVEF 35-40% Left atrium is severely enlarged. Right atrium is moderately enlarged Mild Mitral valve insufficiency (1+) Moderately Severe (3+) tricuspid valve insufficiency Aortic valve right coronary cusp mildly calcified with restricted leaflet excursion Trivial MR Nuclear Stress Test 04/10/2024 Baseline Atrial Fib Rest and Stress nuclear imagine with uniform tracer uptake and myocardial perfusion LVEF 63% Cardiac Cath 11/10/2015 Widely patent LAD Stent Widely patient saphenous vein graft to diagonal Atretic PATINO to the LAD Normal left circumflex, OM, and RCA Past Medical History: Medical History[1] Past Surgical History Surgical History[2] Family History Family History[3] Social History Social History[4] Allergies: Allergies[5] Current Medications: Current Medications[6] Review of Systems: Review of Systems Constitutional: Positive for fatigue. Respiratory: Positive for chest tightness and shortness of breath. Cardiovascular: Positive for palpitations. Negative for chest pain and leg swelling. Gastrointestinal: Positive for abdominal distention. Neurological: Positive for dizziness and light-headedness. Negative for syncope. Vital Signs: Vitals: 12/01/24 1536 BP: 92/60 BP Location: Left arm Patient Position: Sitting BP Cuff Size: Adult Pulse: 79 SpO2: 95% Weight: 170 lb 12.8 oz (77.5 kg) Height: 5' 4.5 (1.638 m) Body mass index is 28.86 kg/m?. Wt Readings from Last 3 Encounters: 12/01/24 170 lb 12.8 oz (77.5 kg) 11/24/24 172 lb (78 kg) 11/11/24 172 lb 6.4 oz (78.2 kg) Physical Exam Vitals reviewed. Constitutional: Appearance: Normal appearance. HENT: Head: Normocephalic and atraumatic. Nose: Nose normal. Mouth/Throat: Mouth: Mucous membranes are moist. Eyes: General: No scleral icterus. Conjunctiva/sclera: Conjunctivae normal. Neck: Comments: Mildly elevated JVD Cardiovascular: Rate and Rhythm: Normal rate. Rhythm irregular. Pulses: Normal pulses. Heart sounds: Normal heart sounds. Pulmonary: Effort: Pulmonary effort is normal. Breath sounds: Normal breath sounds. Abdominal: General: Abdomen is flat. There is distension. Palpations: Abdomen is soft. Musculoskeletal: General: Normal range of motion. Cervical back: Normal range of motion and neck supple. Skin: General: Skin is warm and dry. Neurological: General: No focal deficit present. Mental Status: She is alert. Psychiatric: Mood and Affect: Mood normal. Behavior: Behavior normal. CBC: No results for input(s): WBC, HGB, HCT, PLT in the last 72 hours. BMP: Recent Labs 12/01/24 1828 NA 128* K 4.6 CL 97* CO2 21* BUN 26* CREATININE 1.95* CMP: Lab Results Component Value Date NA 128 (L) 12/01/2024 K 4.6 12/01/2024 CL 97 (L) 12/01/2024 CO2 21 (L) 12/01/2024 BUN 26 (H) 12/01/2024 CREATININE 1.95 (H) 12/01/2024 GLUCOSE 106 12/01/2024 CALCIUM 10.8 (H) 12/01/2024 PROT 6.8 12/01/2024 BILITOT 0.7 12/01/2024 ALKPHOS 47 12/01/2024 AST 25 12/01/2024 ALT 16 12/01/2024 Magnesium: Lab Results Component Value Date MG 1.6 12/01/2024 LFT: Lab Results Component Value Date ALT 16 12/01/2024 AST 25 12/01/2024 ALKPHOS 47 12/01/2024 BILITOT 0.7 12/01/2024 INR: Lab Results Component Value Date INR 2.6 (H) 03/07/2022 INR 3 (H) 02/28/2022 INR 2.5 (H) 02/21/2022 PRO-BNP: No components found for: NTPROBNP TROPONIN: No results found for: TROPONINI TSH: No results found for: TSH Lipid Profile: No results found for: TRIG, HDL, LDLCALC, CHOL Hemoglobin A1C: No results found for: HGBA1C PEGGY: No results found for: PEGGY Ferritin: No results found for: FERRITIN HIV: No results found for: [id number] EKG: See Report Echo: See Report EF: No components found for: LVEF, LVEF (more content not included)... [facility] 12-01-2024 Telephone encounter Note Patient scheduled for urgent OV [facility] 12-01-2024 Miscellaneous Notes Patient scheduled for urgent OV Patient called in. She reports worsening dizziness, lightheadedness, extreme fatigue, unsteadiness on her feet (she had a fall over the weekend, denies hitting her head). She notes that 24-36 hours after her DCC she started having these symptoms and believes that she is back in AF. Her vitals are 104/68 HR 99. Early was 96/49 with HR 91 she does report that her BP at times has been slightly lower. She reports that she has been compliant with her medications and has not missed any doses. She does feel her heart rate when she is laying in bed but she is not tachycardic. Patient scheduled 12/08 for follow-up. S Patient calling concerned that cardioversion was not affective B cardioversion Sunday A Patient of Dr Huggins calling. Had cardioversion Sunday with Dr Aguirre. Calling today with return of previous symptoms. Was fine Sunday following cardioversion but by Sunday was having fatigue, dizziness/lightheadedness, increased SOB and activity intolerance. Is back to using her walker for stability. Intermittent forceful heart beat but does not persist. Denies CP or feeling like passing out. Patient asked about HR - BP Currently 104/68 HR 99. Early was 96/49 with HR 91 R Paged AYAZ Jackson communications officer. He advised it could be BP related. Was advised to monitor increase fluids and call back if HR goes above 120 Patient updated. Advised to call back with the above and if anything like increased SOB CP or feeling like passing out. Advised ED for severe symptoms. Reason for Disposition Patient sounds very sick or weak to the triager Protocols used: Dizziness - [id number] documented in this encounter [facility] 12-01-2024 Telephone encounter Note Patient called in. She reports worsening dizziness, lightheadedness, extreme fatigue, unsteadiness on her feet (she had a fall over the weekend, denies hitting her head). She notes that 24-36 hours after her DCC she started having these symptoms and believes that she is back in AF. Her vitals are 104/68 HR 99. Early was 96/49 with HR 91 she does report that her BP at times has been slightly lower. She reports that she has been compliant with her medications and has not missed any doses. She does feel her heart rate when she is laying in bed but she is not tachycardic. Patient scheduled 12/08 for follow-up. [facility] 12-01-2024 Telephone encounter Note error [facility] 12-01-2024 Miscellaneous Notes error documented in this encounter [facility] 11-28-2024 Telephone encounter Note S Patient calling concerned that cardioversion was not affective B cardioversion Sunday A Patient of Dr Huggins calling. Had cardioversion Sunday with Dr Aguirre. Calling today with return of previous symptoms. Was fine Sunday following cardioversion but by Sunday was having fatigue, dizziness/lightheadedness, increased SOB and activity intolerance. Is back to using her walker for stability. Intermittent forceful heart beat but does not persist. Denies CP or feeling like passing out. Patient asked about HR - BP Currently 104/68 HR 99. Early was 96/49 with HR 91 R Paged AYAZ Jackosn communications officer. He advised it could be BP related. Was advised to monitor increase fluids and call back if HR goes above 120 Patient updated. Advised to call back with the above and if anything like increased SOB CP or feeling like passing out. Advised ED for severe symptoms. Reason for Disposition Patient sounds very sick or weak to the triager Protocols used: Dizziness - [id number]-NE [facility] 11-28-2024 Miscellaneous Notes S Patient calling concerned that cardioversion was not affective B cardioversion Sunday A Patient of Dr Huggins calling. Had cardioversion Sunday with Dr Aguirre. Calling today with return of previous symptoms. Was fine Sunday following cardioversion but by Sunday was having fatigue, dizziness/lightheadedness, increased SOB and activity intolerance. Is back to using her walker for stability. Intermittent forceful heart beat but does not persist. Denies CP or feeling like passing out. Patient asked about HR - BP Currently 104/68 HR 99. Early was 96/49 with HR 91 R Paged NEOKEVIN Jackson communications officer. He advised it could be BP related. Was advised to monitor increase fluids and call back if HR goes above 120 Patient updated. Advised to call back with the above and if anything like increased SOB CP or feeling like passing out. Advised ED for severe symptoms. Reason for Disposition Patient sounds very sick or weak to the triager Protocols used: Dizziness - [id number] documented in this encounter [facility] 11-24-2024 Note Patient: Sandrine Bennett joy Procedure Summary Date: 11/24/24 Room / Location: [facility] Cath/EP Lab Anesthesia Start: 1303 Anesthesia Stop: 132 Procedure: CARDIOVERSION EXTERNAL Diagnosis: Typical atrial flutter (HCC) Scheduled Providers: Oh Aguirre MD Responsible Provider: Mendoza Johnston MD Anesthesia Type: MAC ASA Status: 3 Anesthesia Type: MAC Vitals Value Taken Time BP 86/47 11/24/24 13:45 Temp 35.8 ?C (96.5 ?F) 11/24/24 13:31 Pulse 74 11/24/24 13:54 Resp 21 11/24/24 13:54 SpO2 100 % 11/24/24 13:54 Vitals shown include unfiled device data. Anesthesia Post Evaluation Patient participation: complete - patient participated Level of consciousness: alert and awake Pain management: satisfactory to patient Multimodal analgesia pain management approach Airway patency: patent Two or more strategies used to mitigate risk of obstructive sleep apnea Respiratory status: acceptable Cardiovascular status: acceptable Hydration status: acceptable No notable events documented. MIPS #[id number] PONV Patient did not receive an inhalational anesthetic ([id number]) MIPS # 424 Perioperative Temperature Management Anesthesia time was less than 60 minutes (4256F) MIPS #477 Multimodal Pain Management Not emergent case Patient was administered multimodal pain management (two or more drugs and/or interventions excluding systemic opioids) in the periopeartive period occurring at some time between 6 hours prior to anesthesia start time until discharged from PACU ([id number]) MIPS #404 Anesthesiology Smoking Abstinence The patient is not a current smoker (e.g. cigarette, cigar, pipe, e-cigarette/vaping/marijuana) If no stop here (XX404) I completed my handoff to the receiving clinician during which we: 1. Identified the patient 2. Identified the responsible provider 3. Reviewed the pertinent medical history 4. Discussed the surgical course 5. Reviewed intra-op anesthesia management and issues during anesthesia 6. Set expectations for post-procedure period 7. Allowed opportunity for questions and acknowledgement of understanding. [facility] 11-24-2024 Note Airway Date/Time: 11/24/2024 1:15 PM Reason: scheduled Airway not difficult General Information and Staff Patient location during procedure: Procedural Resident/SHAGGER: Samantha Mena APRN - SHAGGER Performed: SHAGGER Patient Condition Indications for airway management: anesthesia Patient position: sniffing MILS maintained throughout Sedation level: Asleep Final Airway Details Preoxygenated: yes Final airway type: mask ETT size (mm): 7.0 Ventilation between attempts: none Number of attempts at approach: 1 Number of other approaches attempted: 0 [facility] 11-24-2024 Note Patient: Sandrine Bennett joy Procedure Summary Date: 11/24/24 Room / Location: [facility] Cath/EP Lab Anesthesia Start: 1303 Anesthesia Stop: 1326 Procedure: CARDIOVERSION EXTERNAL Diagnosis: Typical atrial flutter (HCC) Scheduled Providers: Oh Aguirre MD Responsible Provider: Mendoza Johnston MD Anesthesia Type: MAC ASA Status: 3 Anesthesia Type: No value filed. Vitals Macario/86ue Taken Time BP 86/55 11/24/24 13:26 Temp 37 11/24/24 13:26 Pulse 74 11/24/24 13:26 Resp 14 11/24/24 13:26 SpO2 98 11/24/24 13:26 Anesthesia Post Evaluation Patient location during evaluation: PACU Patient participation: complete - patient participated Level of consciousness: awake and alert Pain management: satisfactory to patient Airway patency: patent Dental Injury: no Cardiovascular status: acceptable, blood pressure returned to baseline and hemodynamically stable Respiratory status: acceptable and spontaneous ventilation Hydration status: euvolemic Nausea/Vomiting: controlled No notable events documented. Patient can be discharged once all PACU criteria has been met. [facility] 11-24-2024 Note Patient: Sandrine hamilton Procedure Information Anesthesia Start Date/Time: 11/24/24 1303 Scheduled providers: Oh Aguirre MD Procedure: CARDIOVERSION EXTERNAL Location: [facility] Cath/EP Lab Relevant Problems No relevant active problems Past Medical History: Past Medical History: No date: Atrial fibrillation (HCC) No date: Atrial flutter (HCC) No date: CHF (congestive heart failure) (HCC) No date: Coronary artery disease No date: DVT (deep venous thrombosis) (HCC) No date: Hyperlipidemia No date: Hypertension No date: Hypothyroid No date: Ovarian cancer (HCC) Past Surgical History: Past Surgical History: No date: APPENDECTOMY No date: CARDIAC CATHETERIZATION No date: FIRST RIB REMOVAL No date: HYSTERECTOMY Social History: TOBACCO: reports that she quit smoking about 25 years ago. Her smoking use included cigarettes. She started smoking about 45 years ago. She has a 20 pack-year smoking history. She has never used smokeless tobacco. ETOH: reports current alcohol use. Social History Substance and Sexual Activity Drug Use Never Family History: Family History[1] Screening: unknown Clinical information reviewed: Allergies Meds Physical Exam Airway Mallampati: II TM distance: >3 FB Neck ROM: full Mouth Open: normalendotracheal tube not in place Cardiovascular - normal exam Dental dentition normal Pulmonary - normal exam Abdominal Anesthesia Plan patient is NPO appropriate Any family history or previous problems with anesthesia no ASA 3 MAC Any family history or previous problems with anesthesia no The patient is not a current smoker. Patient was not previously instructed to abstain from smoking on day of procedure. Patient did not smoke on day of procedure. Anesthetic plan and risks discussed with patient. Use of blood products discussed with who consented to blood products. BECK Screening Labs: No results found for: WBC, HGB, HCT, MCV, PLT Lab Results Component Value Date NA 136 11/17/2024 K 4.8 11/17/2024 CL 104 11/17/2024 CO2 18 (A) 11/17/2024 BUN 33 (A) 11/17/2024 CREATININE 2.04 (A) 11/17/2024 GLUCOSE 110 11/17/2024 CALCIUM 10.5 (A) 11/17/2024 EGFR 24.0 (A) 11/17/2024 No echocardiogram results found for the past 14 days 11/11/24 ECG 12-LEAD (Preliminary) Equipment Requests: Additional Equipment Requests [1] Family History Problem Relation Name Age of Onset Hypertension Mother Stroke Mother Hyperlipidemia Mother Alzheimer's disease Mother No Known Problems Father Unknown Heart attack Sister Stroke Sister [facility] 11-24-2024 Attending History and physical note H&P reviewed. The patient was examined and there are no changes to the H&P. Source Note - Maggie Huggins MD - 11/11/2024 10:30 AM EDT CARDIOLOGY HF PROGRESS NOTE Today's Date: 11/11/2024 Chart and interval events reviewed. Chief Complaint Chief Complaint Patient presents with Follow-up Cardiomyopathy Subjective: Sandrine Rivers is a 84 y.o. female with recently diagnosed HFrEF 35-40%, Stage C, NYHA class III, 2/2 ICM s/p CABG and remote PCI, +3 TR, afib/aflutter s/p failed 2 x DCCV (last about 1 year ago) presented to establish care in HF Clinic. Patient is feeling worse with NYHA class III, fatigue, palpitations, orthopnea but denies CP, PND or syncopal episodes. ECG: aflutter with controlled rate Cardiac Cath 10/02/2024 40% Mid LAD lesion Stent widely patent SVG to Diag patent Echo 10/01/2024 Mild Concentric left ventricular hypertrophy Moderate to severe generalized LV hypokinesis LVEF 35-40% Left atrium is severely enlarged. Right atrium is moderately enlarged Mild Mitral valve insufficiency (1+) Moderately Severe (3+) tricuspid valve insufficiency Aortic valve right coronary cusp mildly calcified with restricted leaflet excursion Trivial MR Nuclear Stress Test 04/10/2024 Baseline Atrial Fib Rest and Stress nuclear imagine with uniform tracer uptake and myocardial perfusion LVEF 63% Cardiac Cath 11/10/2015 Widely patent LAD Stent Widely patient saphenous vein graft to diagonal Atretic PATINO to the LAD Normal left circumflex, OM, and RCA Past Medical History: Medical History[1] Past Surgical History Surgical History[2] Family History Family History[3] Social History Social History[4] Allergies: Allergies[5] Current Medications: Current Medications[6] Review of Systems: Review of Systems Constitutional: Positive for fatigue. Respiratory: Positive for chest tightness and shortness of breath. Cardiovascular: Positive for palpitations. Negative for chest pain and leg swelling. Gastrointestinal: Positive for abdominal distention. Neurological: Positive for dizziness and light-headedness. Negative for syncope. Vital Signs: Vitals: 11/11/24 1036 BP: 98/60 BP Location: Left arm Patient Position: Sitting BP Cuff Size: Adult Pulse: 68 SpO2: 96% Weight: 172 lb 6.4 oz (78.2 kg) Height: 5' 4 (1.626 m) Body mass index is 29.59 kg/m . Wt Readings from Last 3 Encounters: 11/11/24 172 lb 6.4 oz (78.2 kg) Physical Exam Vitals reviewed. Constitutional: Appearance: Normal appearance. HENT: Head: Normocephalic and atraumatic. Nose: Nose normal. Mouth/Throat: Mouth: Mucous membranes are moist. Eyes: General: No scleral icterus. Conjunctiva/sclera: Conjunctivae normal. Neck: Comments: Mildly elevated JVD Cardiovascular: Rate and Rhythm: Normal rate. Rhythm irregular. Pulses: Normal pulses. Heart sounds: Normal heart sounds. Pulmonary: Effort: Pulmonary effort is normal. Breath sounds: Normal breath sounds. Abdominal: General: Abdomen is flat. There is distension. Palpations: Abdomen is soft. Musculoskeletal: General: Normal range of motion. Cervical back: Normal range of motion and neck supple. Skin: General: Skin is warm and dry. Neurological: General: No focal deficit present. Mental Status: She is alert. Psychiatric: Mood and Affect: Mood normal. Behavior: Behavior normal. CBC: No results for input(s): WBC, HGB, HCT, PLT in the last 72 hours. BMP:No results for input(s): NA, K, CL, CO2, BUN, CREATININE, GLU, LABGLOM in the last 72 hours. No lab exists for component: CA CMP: No results found for: NA, K, CL, CO2, BUN, CREATININE, GLUCOSE, CALCIUM, PROT, BILITOT, ALKPHOS, AST, ALT, LABGLOM, AGRATIO, GLOB Magnesium: No results found for: MG LFT: No results found for: ALT, AST, GGT, ALKPHOS, BILITOT INR:No results found for: INR, PROTIME PRO-BNP: No components found for: NTPROBNP TROPONIN: No results found for: TROPONINI TSH: No results found for: TSH Lipid Profile: No results found for: TRIG, HDL, LDLCALC, CHOL Hemoglobin A1C: No results found for: HGBA1C PEGGY: No results found for: PEGGY Ferritin: No results found for: FERRITIN HIV: No results found for: [id number] EKG: See Report Echo: See Report EF: No components found for: LVEF, LVEFMODE Diagnosis Plan 1. Acute on chronic systolic heart failure (HCC) 2. Left ventricular hypertrophy ECG 12 lead - CLINIC PERFORMED 3. Typical atrial flutter (HCC) Cardioversion external Basic metabolic panel NT PRO BNP Basic metabolic panel NT PRO BNP 4. Essential hypertension 5. 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 6. Paroxysmal atrial fibrillation (HCC) 7. Chronic diastolic heart failure (HCC) 8. S/P CABG (coronary artery bypass graft) 9. Mixed hyperlipidemia Heart Failure Assessment NYHA class III-A - There is limitation of physical activity. The patient is comfortable at rest, but ordinary activity causes fatigue, palpitations or shortness of breath. This patient's heart failure is best characterized as acute on chronic systolic heart failure This patient's heart failure is due to ischemic cardiomyopathy Plan Heart failure care plan: up-titrate HF medications The patient has received education on the following topics: dietary sodium restriction, heart failure medications, minimizing or avoiding NSAIDs, the importance of physical activity, minimizing alcohol intake, prognosis and end of life issues, referral for education program, smoking cessation, symptom management and weight monitoring Next planned office visit is in one week Acute on chronic HFrEF, 35-40%, Stage C, NYHA class III. Patient is mildly volume overaloled on exam and cool to touch. -Stop taking Ramipril -Stop taking Hydrochlorothiazide -Stop taking Carvedilol -Start Entresto 24-26mg twice a day on (wash-out of ramipril for 48 hours) -Start Amiodarone 200mg twice a day for 2 weeks then reduce to once a day -Cardioversion in 2 weeks -poor prognosis Aflutter/afib; patient will benefit from being in NSR; failed 2 DCCV -Start Amiodarone 200mg twice a day for 2 weeks then reduce to once a day -Stop taking Carvedilol -Cardioversion in 2 weeks -continue Eliquis -patient will come for a RN visit for ECG in 1 week and a follow-up with STEVEN/MD in 2 weeks CAD s/p recent [facility] that showed stable CAD -aspirin, rosuvastatin, Eliquis HTN stable -continue as above I spent a total time of 40 minutes caring for this patient today. The patient was seen and examined. A full chart review including tests and operative reports, labs, pathology, and imaging results was performed. I have also spent time communicating results to the patient, counseling/educating the patient, documenting in the medical record and ordering the necessary tests, procedures, medications, referrals, and requesting previous records. I discussed the diagnosis and importance of compliance with the treatment plan. Subjective / Objective Symptoms include dizziness, fatigue and dyspnea I, Maggie Huggins MD, provided Sandrine Haja Rivers ongoing care for their single serious or complex condition described above including HFrEF, CAD, afib/aflutter. I assume responsibility for the patient's ongoing medical care for this condition(s). [1] Past Medical History: Diagnosis Date Atrial fibrillation (HCC) Atrial flutter (HCC) CHF (congestive heart failure) (HCC) Coronary artery disease DVT (deep venous thrombosis) (HCC) Hyperlipidemia Hypertension Hypothyroid Ovarian cancer (HCC) [2] Past Surgical History: Procedure Laterality Date APPENDECTOMY CARDIAC CATHETERIZATION FIRST RIB REMOVAL HYSTERECTOMY [3] Family History Problem Relation Name Age of Onset Hypertension Mother Stroke Mother Hyperlipidemia Mother Alzheimer's disease Mother No Known Problems Father Unknown Heart attack Sister Stroke Sister [4] Social History Tobacco Use Smoking status: Former Current packs/day: 0.00 Average packs/day: 1 pack/day for 20.0 years (20.0 ttl pk-yrs) Types: Cigarettes Start date: 1979 Quit date: 2000 Years since quittin.4 Smokeless tobacco: Never Substance Use Topics Alcohol use: Yes Comment: occasional Drug use: Never [5] Allergies Allergen Reactions Streptokinase [6] Current Outpatient Medications Medication Sig Dispense Refill acetaminophen (Tylenol) 500 MG tablet Take 500 mg by mouth every 4 hours as needed for mild pain (1-3). apixaban (Eliquis) 5 MG tablet Take 5 mg by mouth 2 times daily. aspirin 81 MG EC tablet Take 81 mg by mouth daily. Calcium Carbonate (CALCIUM 600 PO) Take 600 mg by mouth daily. cholecalciferol (Vitamin D-3) 1.25 MG (67285 UT) capsule Take 50,000 Units by mouth 1 (one) time per week. levothyroxine (Synthroid, Levoxyl) 125 MCG tablet Take 125 mcg by mouth every morning (before breakfast). mirabegron ER (Myrbetriq) 50 MG 24 hr tablet Take 50 mg by mouth Nightly. Do not crush, chew, or split. niacin 500 MG tablet Take 500 mg by mouth 2 times daily (with meals). nitroglycerin (Nitrostat) 0.[address] 0.4 mg under the tongue every 5 minutes as needed for chest pain. oxybutynin XL (Ditropan-XL) 10 MG 24 hr tablet Take 10 mg by mouth daily. Do not crush, chew, or split. potassium chloride CR (Klor-Con M20) 20 MEQ ER tablet Take 20 mEq by mouth daily. Do not crush or chew. rosuvastatin (Crestor) 40 MG tablet Take 40 mg by mouth daily. spironolactone (Aldactone) 25 MG tablet Take 25 mg by mouth daily. sucralfate (Carafate) 1 g tablet Take 1 g by mouth daily. amiodarone (Pacerone) 200 MG tablet Take 1 tablet (200 mg) by mouth 2 times daily. 180 tablet 3 [START ON 11/13/2024] sacubitril-valsartan (Entresto) 24-26 MG tablet Take 1 tablet by mouth 2 times daily. Do not start before November 13, 2024. 180 tablet 3 No current facility-administered medications for this visit. [facility] 11-24-2024 History and physical note H&P reviewed. The patient was examined and there are no changes to the H&P. Source Note - Maggie Huggins MD - 11/11/2024 10:30 AM EDT CARDIOLOGY HF PROGRESS NOTE Today's Date: 11/11/2024 Chart and interval events reviewed. Chief Complaint Chief Complaint Patient presents with Follow-up Cardiomyopathy Subjective: Sandrine Rivers is a 84 y.o. female with recently diagnosed HFrEF 35-40%, Stage C, NYHA class III, 2/2 ICM s/p CABG and remote PCI, +3 TR, afib/aflutter s/p failed 2 x DCCV (last about 1 year ago) presented to establish care in HF Clinic. Patient is feeling worse with NYHA class III, fatigue, palpitations, orthopnea but denies CP, PND or syncopal episodes. ECG: aflutter with controlled rate Cardiac Cath 10/02/2024 40% Mid LAD lesion Stent widely patent SVG to Diag patent Echo 10/01/2024 Mild Concentric left ventricular hypertrophy Moderate to severe generalized LV hypokinesis LVEF 35-40% Left atrium is severely enlarged. Right atrium is moderately enlarged Mild Mitral valve insufficiency (1+) Moderately Severe (3+) tricuspid valve insufficiency Aortic valve right coronary cusp mildly calcified with restricted leaflet excursion Trivial MR Nuclear Stress Test 04/10/2024 Baseline Atrial Fib Rest and Stress nuclear imagine with uniform tracer uptake and myocardial perfusion LVEF 63% Cardiac Cath 11/10/2015 Widely patent LAD Stent Widely patient saphenous vein graft to diagonal Atretic PATINO to the LAD Normal left circumflex, OM, and RCA Past Medical History: Medical History[1] Past Surgical History Surgical History[2] Family History Family History[3] Social History Social History[4] Allergies: Allergies[5] Current Medications: Current Medications[6] Review of Systems: Review of Systems Constitutional: Positive for fatigue. Respiratory: Positive for chest tightness and shortness of breath. Cardiovascular: Positive for palpitations. Negative for chest pain and leg swelling. Gastrointestinal: Positive for abdominal distention. Neurological: Positive for dizziness and light-headedness. Negative for syncope. Vital Signs: Vitals: 11/11/24 1036 BP: 98/60 BP Location: Left arm Patient Position: Sitting BP Cuff Size: Adult Pulse: 68 SpO2: 96% Weight: 172 lb 6.4 oz (78.2 kg) Height: 5' 4 (1.626 m) Body mass index is 29.59 kg/m . Wt Readings from Last 3 Encounters: 11/11/24 172 lb 6.4 oz (78.2 kg) Physical Exam Vitals reviewed. Constitutional: Appearance: Normal appearance. HENT: Head: Normocephalic and atraumatic. Nose: Nose normal. Mouth/Throat: Mouth: Mucous membranes are moist. Eyes: General: No scleral icterus. Conjunctiva/sclera: Conjunctivae normal. Neck: Comments: Mildly elevated JVD Cardiovascular: Rate and Rhythm: Normal rate. Rhythm irregular. Pulses: Normal pulses. Heart sounds: Normal heart sounds. Pulmonary: Effort: Pulmonary effort is normal. Breath sounds: Normal breath sounds. Abdominal: General: Abdomen is flat. There is distension. Palpations: Abdomen is soft. Musculoskeletal: General: Normal range of motion. Cervical back: Normal range of motion and neck supple. Skin: General: Skin is warm and dry. Neurological: General: No focal deficit present. Mental Status: She is alert. Psychiatric: Mood and Affect: Mood normal. Behavior: Behavior normal. CBC: No results for input(s): WBC, HGB, HCT, PLT in the last 72 hours. BMP:No results for input(s): NA, K, CL, CO2, BUN, CREATININE, GLU, LABGLOM in the last 72 hours. No lab exists for component: CA CMP: No results found for: NA, K, CL, CO2, BUN, CREATININE, GLUCOSE, CALCIUM, PROT, BILITOT, ALKPHOS, AST, ALT, LABGLOM, AGRATIO, GLOB Magnesium: No results found for: MG LFT: No results found for: ALT, AST, GGT, ALKPHOS, BILITOT INR:No results found for: INR, PROTIME PRO-BNP: No components found for: NTPROBNP TROPONIN: No results found for: TROPONINI TSH: No results found for: TSH Lipid Profile: No results found for: TRIG, HDL, LDLCALC, CHOL Hemoglobin A1C: No results found for: HGBA1C PEGGY: No results found for: PEGGY Ferritin: No results found for: FERRITIN HIV: No results found for: [id number] EKG: See Report Echo: See Report EF: No components found for: LVEF, LVEFMODE Diagnosis Plan 1. Acute on chronic systolic heart failure (HCC) 2. Left ventricular hypertrophy ECG 12 lead - CLINIC PERFORMED 3. Typical atrial flutter (HCC) Cardioversion external Basic metabolic panel NT PRO BNP Basic metabolic panel NT PRO BNP 4. Essential hypertension 5. 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 6. Paroxysmal atrial fibrillation (HCC) 7. Chronic diastolic heart failure (HCC) 8. S/P CABG (coronary artery bypass graft) 9. Mixed hyperlipidemia Heart Failure Assessment NYHA class III-A - There is limitation of physical activity. The patient is comfortable at rest, but ordinary activity causes fatigue, palpitations or shortness of breath. This patient's heart failure is best characterized as acute on chronic systolic heart failure This patient's heart failure is due to ischemic cardiomyopathy Plan Heart failure care plan: up-titrate HF medications The patient has received education on the following topics: dietary sodium restriction, heart failure medications, minimizing or avoiding NSAIDs, the importance of physical activity, minimizing alcohol intake, prognosis and end of life issues, referral for education program, smoking cessation, symptom management and weight monitoring Next planned office visit is in one week Acute on chronic HFrEF, 35-40%, Stage C, NYHA class III. Patient is mildly volume overaloled on exam and cool to touch. -Stop taking Ramipril -Stop taking Hydrochlorothiazide -Stop taking Carvedilol -Start Entresto 24-26mg twice a day on (wash-out of ramipril for 48 hours) -Start Amiodarone 200mg twice a day for 2 weeks then reduce to once a day -Cardioversion in 2 weeks -poor prognosis Aflutter/afib; patient will benefit from being in NSR; failed 2 DCCV -Start Amiodarone 200mg twice a day for 2 weeks then reduce to once a day -Stop taking Carvedilol -Cardioversion in 2 weeks -continue Eliquis -patient will come for a RN visit for ECG in 1 week and a follow-up with STEVEN/MD in 2 weeks CAD s/p recent [facility] that showed stable CAD -aspirin, rosuvastatin, Eliquis HTN stable -continue as above I spent a total time of 40 minutes caring for this patient today. The patient was seen and examined. A full chart review including tests and operative reports, labs, pathology, and imaging results was performed. I have also spent time communicating results to the patient, counseling/educating the patient, documenting in the medical record and ordering the necessary tests, procedures, medications, referrals, and requesting previous records. I discussed the diagnosis and importance of compliance with the treatment plan. Subjective / Objective Symptoms include dizziness, fatigue and dyspnea IMaggie MD, provided Sandrine Haja Rivers ongoing care for their single serious or complex condition described above including HFrEF, CAD, afib/aflutter. I assume responsibility for the patient's ongoing medical care for this condition(s). [1] Past Medical History: Diagnosis Date Atrial fibrillation (HCC) Atrial flutter (HCC) CHF (congestive heart failure) (HCC) Coronary artery disease DVT (deep venous thrombosis) (HCC) Hyperlipidemia Hypertension Hypothyroid Ovarian cancer (HCC) [2] Past Surgical History: Procedure Laterality Date APPENDECTOMY CARDIAC CATHETERIZATION FIRST RIB REMOVAL HYSTERECTOMY [3] Family History Problem Relation Name Age of Onset Hypertension Mother Stroke Mother Hyperlipidemia Mother Alzheimer's disease Mother No Known Problems Father Unknown Heart attack Sister Stroke Sister [4] Social History Tobacco Use Smoking status: Former Current packs/day: 0.00 Average packs/day: 1 pack/day for 20.0 years (20.0 ttl pk-yrs) Types: Cigarettes Start date: 1979 Quit date: 1999 Years since quittin.4 Smokeless tobacco: Never Substance Use Topics Alcohol use: Yes Comment: occasional Drug use: Never [5] Allergies Allergen Reactions Streptokinase [6] Current Outpatient Medications Medication Sig Dispense Refill acetaminophen (Tylenol) 500 MG tablet Take 500 mg by mouth every 4 hours as needed for mild pain (1-3). apixaban (Eliquis) 5 MG tablet Take 5 mg by mouth 2 times daily. aspirin 81 MG EC tablet Take 81 mg by mouth daily. Calcium Carbonate (CALCIUM 600 PO) Take 600 mg by mouth daily. cholecalciferol (Vitamin D-3) 1.25 MG (50397 UT) capsule Take 50,000 Units by mouth 1 (one) time per week. levothyroxine (Synthroid, Levoxyl) 125 MCG tablet Take 125 mcg by mouth every morning (before breakfast). mirabegron ER (Myrbetriq) 50 MG 24 hr tablet Take 50 mg by mouth Nightly. Do not crush, chew, or split. niacin 500 MG tablet Take 500 mg by mouth 2 times daily (with meals). nitroglycerin (Nitrostat) 0.[address] 0.4 mg under the tongue every 5 minutes as needed for chest pain. oxybutynin XL (Ditropan-XL) 10 MG 24 hr tablet Take 10 mg by mouth daily. Do not crush, chew, or split. potassium chloride CR (Klor-Con M20) 20 MEQ ER tablet Take 20 mEq by mouth daily. Do not crush or chew. rosuvastatin (Crestor) 40 MG tablet Take 40 mg by mouth daily. spironolactone (Aldactone) 25 MG tablet Take 25 mg by mouth daily. sucralfate (Carafate) 1 g tablet Take 1 g by mouth daily. amiodarone (Pacerone) 200 MG tablet Take 1 tablet (200 mg) by mouth 2 times daily. 180 tablet 3 [START ON 11/13/2024] sacubitril-valsartan (Entresto) 24-26 MG tablet Take 1 tablet by mouth 2 times daily. Do not start before November 13, 2024. 180 tablet 3 No current facility-administered medications for this visit. documented in this encounter [facility] 11-24-2024 Miscellaneous Notes Date: 11/24/2024 Location: [facility] Cardiology Thin Log Name: Sandrine Rivers, : 1940, Diagnosis Persistent atrial fibrillation. CV: 200 J biphasic shock AP pads Afib -> NSR documented in this encounter [facility] 11-24-2024 Note H&P reviewed. The pa tient was examined and there are no changes to the H&P. [facility] 11-24-2024 Procedure note Date: 11/24/2024 Location: [facility] Cardiology Thin Log Name: Sandrine Rivers, : 1940, Diagnosis Persistent atrial fibrillation. CV: 200 J biphasic shock AP pads Afib -> NSR [facility] 11-19-2024 Note INSTRUCTIONS FOR PRO CEDURE Type of Procedure: CARDIOVERSION Date of Procedure: 11/24 Time of Procedure: 1:00PM CHECK IN TIME: 11:30AM Procedure Cyber Intel Planner: Dr. Aguirre Please report to [address] [facility]. You may use film sound engineer parking at this entrance or use the parking deck. The charge is $6-7. [place] [facility] Prep for Procedure Nothing to eat or drink for 8 hours prior to arrival Bring a list of your medications (be sure to include the dosages) If on Bi-Pap or C-Pap bring unit with you (be sure to empty water out) Bring a designated class a regional truck driver to drive you home Please leave unnecessary valuables at home Please wear loose fitting, 2-piece, comfortable clothing Medications May take regular AM medications with sip of water 2 hours prior to arrival Please HOLD medications: Spironolactone Please call office with any questions! [facility] 11-19-2024 Telephone encounter Note INSTRUCTIONS FOR PROCEDURE Type of Procedure: CARDIOVERSION Date of Procedure: 11/24 Time of Procedure: 1:00PM CHECK IN TIME: 11:30AM Procedure [employer] Planner: Dr. Aguirre Please report to [address] [facility]. You may use film sound engineer parking at this entrance or use the parking deck. The charge is $6-7. Report to the registration desk at the [facility]. Prep for Procedure Nothing to eat or drink for 8 hours prior to arrival Bring a list of your medications (be sure to include the dosages) If on Bi-Pap or C-Pap bring unit with you (be sure to empty water out) Bring a designated class a regional truck driver to drive you home Please leave unnecessary valuables at home Please wear loose fitting, 2-piece, comfortable clothing Medications May take regular AM medications with sip of water 2 hours prior to arrival Please HOLD medications: Spironolactone Please call office with any questions! [facility] 11-19-2024 Miscellaneous Notes INSTRUCTIONS FOR PROCEDURE Type of Procedure: CARDIOVERSION Date of Procedure: 11/24 Time of Procedure: 1:00PM CHECK IN TIME: 11:30AM Procedure Cyber [employer] Planner: Dr. Aguirre Please report to [address] [place] [address]. You may use [employer] parking at this entrance or use the parking deck. The charge is $6-7. Report to the [place] [facility] Prep for Procedure Nothing to eat or drink for 8 hours prior to arrival Bring a list of your medications (be sure to include the dosages) If on Bi-Pap or C-Pap bring unit with you (be sure to empty water out) Bring a designated class a regional truck driver to drive you home Please leave unnecessary valuables at home Please wear loose fitting, 2-piece, comfortable clothing Medications May take regular AM medications with sip of water 2 hours prior to arrival Please HOLD medications: Spironolactone Please call office with any questions! Requested to see patient today given worsening lightheadedness after starting Entresto. +positional pre-syncope. No syncope. Renal function has worsened this week, Scr 1.5 -> 2.0. BP 100/60 sitting and 82/50 with standing. She tries to stay hydrated with crystal light and armor drinks. No edema or JVD on exam. At this point, I think she needs to stop Entresto. Can restart ramipril 5mg daily on Sunday. Recheck labs in 2 weeks. Patient coming in today 11/19 for EKG check. Will complete teach during visit. Pt scheduled for DCC with Dr Aguirre on 11/24 @ 1p. Ravinder will call pt with teach. Pt has lab order slip & will get done at [facility] OP lab. Please call daughter, Leeroy, with instructions at [phone] documented in this encounter [facility] 11-19-2024 Telephone encounter Note Requested to see patient today given worsening lightheadedness after starting Entresto. +positional pre-syncope. No syncope. Renal function has worsened this week, Scr 1.5 -> 2.0. BP 100/60 sitting and 82/50 with standing. She tries to stay hydrated with crystal light and armor drinks. No edema or JVD on exam. At this point, I think she needs to stop Entresto. Can restart ramipril 5mg daily on Sunday. Recheck labs in 2 weeks. [facility] 11-19-2024 Telephone encounter Note Patient coming in today 11/19 for EKG check. Will complete teach during visit. [facility] 11-17-2024 Telephone encounter Note Pt called to report she completed her labs at [facility]. Thank you. Will have to request copy. Thank you [facility] 11-17-2024 Miscellaneous Notes Pt called to report she completed her labs at [facility]. Thank you. Will have to request copy. Thank you documented in this encounter [facility] 11-11-2024 Telephone encounter Note Pt scheduled for DCC with Dr Aguirre on 11/24 @ 1p. Ravinder will call pt with teach. Pt has lab order slip & will get done at [facility] OP lab. Please call daughter, Leeroy, with instructions at [phone] [facility] 11-11-2024 History of Present illness Narrative CARDIOLOGY HF PROGRESS NOTE Today's Date: 11/11/2024 Chart and interval events reviewed. Chief Complaint Chief Complaint Patient presents with Follow-up Cardiomyopathy Subjective: Snadrine Rivers is a 84 y.o. female with recently diagnosed HFrEF 35-40%, Stage C, NYHA class III, 2/2 ICM s/p CABG and remote PCI, +3 TR, afib/aflutter s/p failed 2 x DCCV (last about 1 year ago) presented to establish care in HF Clinic. Patient is feeling worse with NYHA class III, fatigue, palpitations, orthopnea but denies CP, PND or syncopal episodes. ECG: aflutter with controlled rate Cardiac Cath 10/02/2024 40% Mid LAD lesion Stent widely patent SVG to Diag patent Echo 10/01/2024 Mild Concentric left ventricular hypertrophy Moderate to severe generalized LV hypokinesis LVEF 35-40% Left atrium is severely enlarged. Right atrium is moderately enlarged Mild Mitral valve insufficiency (1+) Moderately Severe (3+) tricuspid valve insufficiency Aortic valve right coronary cusp mildly calcified with restricted leaflet excursion Trivial MR Nuclear Stress Test 04/10/2024 Baseline Atrial Fib Rest and Stress nuclear imagine with uniform tracer uptake and myocardial perfusion LVEF 63% Cardiac Cath 11/10/2015 Widely patent LAD Stent Widely patient saphenous vein graft to diagonal Atretic PATINO to the LAD Normal left circumflex, OM, and RCA Past Medical History: Medical History[1] Past Surgical History Surgical History[2] Family History Family History[3] Social History Social History[4] Allergies: Allergies[5] Current Medications: Current Medications[6] Review of Systems: Review of Systems Constitutional: Positive for fatigue. Respiratory: Positive for chest tightness and shortness of breath. Cardiovascular: Positive for palpitations. Negative for chest pain and leg swelling. Gastrointestinal: Positive for abdominal distention. Neurological: Positive for dizziness and light-headedness. Negative for syncope. Vital Signs: Vitals: 11/11/24 1036 BP: 98/60 BP Location: Left arm Patient Position: Sitting BP Cuff Size: Adult Pulse: 68 SpO2: 96% Weight: 172 lb 6.4 oz (78.2 kg) Height: 5' 4 (1.626 m) Body mass index is 29.59 kg/m . Wt Readings from Last 3 Encounters: 11/11/24 172 lb 6.4 oz (78.2 kg) Physical Exam Vitals reviewed. Constitutional: Appearance: Normal appearance. HENT: Head: Normocephalic and atraumatic. Nose: Nose normal. Mouth/Throat: Mouth: Mucous membranes are moist. Eyes: General: No scleral icterus. Conjunctiva/sclera: Conjunctivae normal. Neck: Comments: Mildly elevated JVD Cardiovascular: Rate and Rhythm: Normal rate. Rhythm irregular. Pulses: Normal pulses. Heart sounds: Normal heart sounds. Pulmonary: Effort: Pulmonary effort is normal. Breath sounds: Normal breath sounds. Abdominal: General: Abdomen is flat. There is distension. Palpations: Abdomen is soft. Musculoskeletal: General: Normal range of motion. Cervical back: Normal range of motion and neck supple. Skin: General: Skin is warm and dry. Neurological: General: No focal deficit present. Mental Status: She is alert. Psychiatric: Mood and Affect: Mood normal. Behavior: Behavior normal. CBC: No results for input(s): WBC, HGB, HCT, PLT in the last 72 hours. BMP:No results for input(s): NA, K, CL, CO2, BUN, CREATININE, GLU, LABGLOM in the last 72 hours. No lab exists for component: CA CMP: No results found for: NA, K, CL, CO2, BUN, CREATININE, GLUCOSE, CALCIUM, PROT, BILITOT, ALKPHOS, AST, ALT, LABGLOM, AGRATIO, GLOB Magnesium: No results found for: MG LFT: No results found for: ALT, AST, GGT, ALKPHOS, BILITOT INR:No results found for: INR, PROTIME PRO-BNP: No components found for: NTPROBNP TROPONIN: No results found for: TROPONINI TSH: No results found for: TSH Lipid Profile: No results found for: TRIG, HDL, LDLCALC, CHOL Hemoglobin A1C: No results found for: HGBA1C PEGGY: No results found for: PEGGY Ferritin: No results found for: FERRITIN HIV: No results found for: [id number] EKG: See Report Echo: See Report EF: No components found for: LVEF, LVEFMODE Diagnosis Plan 1. Acute on chronic systolic heart failure (HCC) 2. Left ventricular hypertrophy ECG 12 lead - CLINIC PERFORMED 3. Typical atrial flutter (HCC) Cardioversion external Basic metabolic panel NT PRO BNP Basic metabolic panel NT PRO BNP 4. Essential hypertension 5. 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 6. Paroxysmal atrial fibrillation (HCC) 7. Chronic diastolic heart failure (HCC) 8. S/P CABG (coronary artery bypass graft) 9. Mixed hyperlipidemia Heart Failure Assessment NYHA class III-A - There is limitation of physical activity. The patient is comfortable at rest, but ordinary activity causes fatigue, palpitations or shortness of breath. This patient's heart failure is best characterized as acute on chronic systolic heart failure This patient's heart failure is due to ischemic cardiomyopathy Plan Heart failure care plan: up-titrate HF medications The patient has received education on the following topics: dietary sodium restriction, heart failure medications, minimizing or avoiding NSAIDs, the importance of physical activity, minimizing alcohol intake, prognosis and end of life issues, referral for education program, smoking cessation, symptom management and weight monitoring Next planned office visit is in one week Acute on chronic HFrEF, 35-40%, Stage C, NYHA class III. Patient is mildly volume overaloled on exam and cool to touch. -Stop taking Ramipril -Stop taking Hydrochlorothiazide -Stop taking Carvedilol -Start Entresto 24-26mg twice a day on (wash-out of ramipril for 48 hours) -Start Amiodarone 200mg twice a day for 2 weeks then reduce to once a day -Cardioversion in 2 weeks -poor prognosis Aflutter/afib; patient will benefit from being in NSR; failed 2 DCCV -Start Amiodarone 200mg twice a day for 2 weeks then reduce to once a day -Stop taking Carvedilol -Cardioversion in 2 weeks -continue Eliquis -patient will come for a RN visit for ECG in 1 week and a follow-up with STEVEN/MD in 2 weeks CAD s/p recent [facility] that showed stable CAD -aspirin, rosuvastatin, Eliquis HTN stable -continue as above I spent a total time of 40 minutes caring for this patient today. The patient was seen and examined. A full chart review including tests and operative reports, labs, pathology, and imaging results was performed. I have also spent time communicating results to the patient, counseling/educating the patient, documenting in the medical record and ordering the necessary tests, procedures, medications, referrals, and requesting previous records. I discussed the diagnosis and importance of compliance with the treatment plan. Subjective / Objective Symptoms include dizziness, fatigue and dyspnea IMaggie MD, provided Sandrine Rivers ongoing care for their single serious or complex condition described above including HFrEF, CAD, afib/aflutter. I assume responsibility for the patient's ongoing medical care for this condition(s). [1] Past Medical History: Diagnosis Date Atrial fibrillation (HCC) Atrial flutter (HCC) CHF (congestive heart failure) (HCC) Coronary artery disease DVT (deep venous thrombosis) (HCC) Hyperlipidemia Hypertension Hypothyroid Ovarian cancer (HCC) [2] Past Surgical History: Procedure Laterality Date APPENDECTOMY CARDIAC CATHETERIZATION FIRST RIB REMOVAL HYSTERECTOMY [3] Family History Problem Relation Name Age of Onset Hypertension Mother Stroke Mother Hyperlipidemia Mother Alzheimer's disease Mother No Known Problems Father Unknown Heart attack Sister Stroke Sister [4] Social History Tobacco Use Smoking status: Former Current packs/day: 0.00 Average packs/day: 1 pack/day for 20.0 years (20.0 ttl pk-yrs) Types: Cigarettes Start date: 1979 Quit date: 2000 Years since quittin.4 Smokeless tobacco: Never Substance Use Topics Alcohol use: Yes Comment: occasional Drug use: Never [5] Allergies Allergen Reactions Streptokinase [6] Current Outpatient Medications Medication Sig Dispense Refill acetaminophen (Tylenol) 500 MG tablet Take 500 mg by mouth every 4 hours as needed for mild pain (1-3). apixaban (Eliquis) 5 MG tablet Take 5 mg by mouth 2 times daily. aspirin 81 MG EC tablet Take 81 mg by mouth daily. Calcium Carbonate (CALCIUM 600 PO) Take 600 mg by mouth daily. cholecalciferol (Vitamin D-3) 1.25 MG (29881 UT) capsule Take 50,000 Units by mouth 1 (one) time per week. levothyroxine (Synthroid, Levoxyl) 125 MCG tablet Take 125 mcg by mouth every morning (before breakfast). mirabegron ER (Myrbetriq) 50 MG 24 hr tablet Take 50 mg by mouth Nightly. Do not crush, chew, or split. niacin 500 MG tablet Take 500 mg by mouth 2 times daily (with meals). nitroglycerin (Nitrostat) 0.[address] 0.4 mg under the tongue every 5 minutes as needed for chest pain. oxybutynin XL (Ditropan-XL) 10 MG 24 hr tablet Take 10 mg by mouth daily. Do not crush, chew, or split. potassium chloride CR (Klor-Con M20) 20 MEQ ER tablet Take 20 mEq by mouth daily. Do not crush or chew. rosuvastatin (Crestor) 40 MG tablet Take 40 mg by mouth daily. spironolactone (Aldactone) 25 MG tablet Take 25 mg by mouth daily. sucralfate (Carafate) 1 g tablet Take 1 g by mouth daily. amiodarone (Pacerone) 200 MG tablet Take 1 tablet (200 mg) by mouth 2 times daily. 180 tablet 3 [START ON 11/13/2024] sacubitril-valsartan (Entresto) 24-26 MG tablet Take 1 tablet by mouth 2 times daily. Do not start before November 13, 2024. 180 tablet 3 No current facility-administered medications for this visit. documented in this encounter [facility] 11-11-2024 Instructions Maggie Huggins MD - 11/11/2024 10:30 AM EDT Stop taking Ramipril Stop taking Hydrochlorothiazide Stop taking Carvedilol Start Entresto 24-26mg twice a day on (wash-out of ramipril for 48 hours) Start Amiodarone 200mg twice a day for 2 weeks then reduce to once a day Cardioversion in 2 weeks documented in this encounter [facility] 11-11-2024 Note CARDIOLOGY HF PROGRE SS NOTE Today's Date: 11/11/2024 Chart and interval events reviewed. Chief Complaint Chief Complaint Patient presents with Follow-up Cardiomyopathy Subjective: Sandrine Rivers is a 84 y.o. female with recently diagnosed HFrEF 35-40%, Stage C, NYHA class III, 2/2 ICM s/p CABG and remote PCI, +3 TR, afib/aflutter s/p failed 2 x DCCV (last about 1 year ago) presented to establish care in HF Clinic. Patient is feeling worse with NYHA class III, fatigue, palpitations, orthopnea but denies CP, PND or syncopal episodes. ECG: aflutter with controlled rate Cardiac Cath 10/02/2024 40% Mid LAD lesion Stent widely patent SVG to Diag patent Echo 10/01/2024 Mild Concentric left ventricular hypertrophy Moderate to severe generalized LV hypokinesis LVEF 35-40% Left atrium is severely enlarged. Right atrium is moderately enlarged Mild Mitral valve insufficiency (1+) Moderately Severe (3+) tricuspid valve insufficiency Aortic valve right coronary cusp mildly calcified with restricted leaflet excursion Trivial MR Nuclear Stress Test 04/10/2024 Baseline Atrial Fib Rest and Stress nuclear imagine with uniform tracer uptake and myocardial perfusion LVEF 63% Cardiac Cath 11/10/2015 Widely patent LAD Stent Widely patient saphenous vein graft to diagonal Atretic PATINO to the LAD Normal left circumflex, OM, and RCA Past Medical History: Medical History[1] Past Surgical History Surgical History[2] Family History Family History[3] Social History Social History[4] Allergies: Allergies[5] Current Medications: Current Medications[6] Review of Systems: Review of Systems Constitutional: Positive for fatigue. Respiratory: Positive for chest tightness and shortness of breath. Cardiovascular: Positive for palpitations. Negative for chest pain and leg swelling. Gastrointestinal: Positive for abdominal distention. Neurological: Positive for dizziness and light-headedness. Negative for syncope. Vital Signs: Vitals: 11/11/24 1036 BP: 98/60 BP Location: Left arm Patient Position: Sitting BP Cuff Size: Adult Pulse: 68 SpO2: 96% Weight: 172 lb 6.4 oz (78.2 kg) Height: 5' 4 (1.626 m) Body mass index is 29.59 kg/m?. Wt Readings from Last 3 Encounters: 11/11/24 172 lb 6.4 oz (78.2 kg) Physical Exam Vitals reviewed. Constitutional: Appearance: Normal appearance. HENT: Head: Normocephalic and atraumatic. Nose: Nose normal. Mouth/Throat: Mouth: Mucous membranes are moist. Eyes: General: No scleral icterus. Conjunctiva/sclera: Conjunctivae normal. Neck: Comments: Mildly elevated JVD Cardiovascular: Rate and Rhythm: Normal rate. Rhythm irregular. Pulses: Normal pulses. Heart sounds: Normal heart sounds. Pulmonary: Effort: Pulmonary effort is normal. Breath sounds: Normal breath sounds. Abdominal: General: Abdomen is flat. There is distension. Palpations: Abdomen is soft. Musculoskeletal: General: Normal range of motion. Cervical back: Normal range of motion and neck supple. Skin: General: Skin is warm and dry. Neurological: General: No focal deficit present. Mental Status: She is alert. Psychiatric: Mood and Affect: Mood normal. Behavior: Behavior normal. CBC: No results for input(s): WBC, HGB, HCT, PLT in the last 72 hours. BMP:No results for input(s): NA, K, CL, CO2, BUN, CREATININE, GLU, LABGLOM in the last 72 hours. No lab exists for component: CA CMP: No results found for: NA, K, CL, CO2, BUN, CREATININE, GLUCOSE, CALCIUM, PROT, BILITOT, ALKPHOS, AST, ALT, LABGLOM, AGRATIO, GLOB Magnesium: No results found for: MG LFT: No results found for: ALT, AST, GGT, ALKPHOS, BILITOT INR:No results found for: INR, PROTIME PRO-BNP: No components found for: NTPROBNP TROPONIN: No results found for: TROPONINI TSH: No results found for: TSH Lipid Profile: No results found for: TRIG, HDL, LDLCALC, CHOL Hemoglobin A1C: No results found for: HGBA1C PEGGY: No results found for: PEGGY Ferritin: No results found for: FERRITIN HIV: No results found for: [id number] EKG: See Report Echo: See Report EF: No components found for: LVEF, LVEFMODE Diagnosis Plan 1. Acute on chronic systolic heart failure (HCC) 2. Left ventricular hypertrophy ECG 12 lead - CLINIC PERFORMED 3. Typical atrial flutter (HCC) Cardioversion external Basic metabolic panel NT PRO BNP Basic metabolic panel NT PRO BNP 4. Essential hypertension 5. 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 6. Paroxysmal atrial fibrillation (HCC) 7. Chronic diastolic heart failure (HCC) 8. S/P CABG (coronary artery bypass graft) 9. Mixed hyperlipidemia Heart Failure Assessment NYHA class III-A - There is limitation of physical activity. The patient is comfortable at rest, but ord (more content not included)... [facility] 11-11-2024 Note CARDIOLOGY HF PROGRE SS NOTE Today's Date: 11/11/2024 Chart and interval events reviewed. Chief Complaint Chief Complaint Patient presents with Follow-up Cardiomyopathy Subjective: Sandrine Rivers is a 84 y.o. female with recently diagnosed HFrEF 35-40%, Stage C, NYHA class III, 2/2 ICM s/p CABG and remote PCI, +3 TR, afib/aflutter s/p failed 2 x DCCV (last about 1 year ago) presented to establish care in HF Clinic. Patient is feeling worse with NYHA class III, fatigue, palpitations, orthopnea but denies CP, PND or syncopal episodes. ECG: aflutter with controlled rate Cardiac Cath 10/02/2024 40% Mid LAD lesion Stent widely patent SVG to Diag patent Echo 10/01/2024 Mild Concentric left ventricular hypertrophy Moderate to severe generalized LV hypokinesis LVEF 35-40% Left atrium is severely enlarged. Right atrium is moderately enlarged Mild Mitral valve insufficiency (1+) Moderately Severe (3+) tricuspid valve insufficiency Aortic valve right coronary cusp mildly calcified with restricted leaflet excursion Trivial MR Nuclear Stress Test 04/10/2024 Baseline Atrial Fib Rest and Stress nuclear imagine with uniform tracer uptake and myocardial perfusion LVEF 63% Cardiac Cath 11/10/2015 Widely patent LAD Stent Widely patient saphenous vein graft to diagonal Atretic PATINO to the LAD Normal left circumflex, OM, and RCA Past Medical History: Medical History[1] Past Surgical History Surgical History[2] Family History Family History[3] Social History Social History[4] Allergies: Allergies[5] Current Medications: Current Medications[6] Review of Systems: Review of Systems Constitutional: Positive for fatigue. Respiratory: Positive for chest tightness and shortness of breath. Cardiovascular: Positive for palpitations. Negative for chest pain and leg swelling. Gastrointestinal: Positive for abdominal distention. Neurological: Positive for dizziness and light-headedness. Negative for syncope. Vital Signs: Vitals: 11/11/24 1036 BP: 98/60 BP Location: Left arm Patient Position: Sitting BP Cuff Size: Adult Pulse: 68 SpO2: 96% Weight: 172 lb 6.4 oz (78.2 kg) Height: 5' 4 (1.626 m) Body mass index is 29.59 kg/m?. Wt Readings from Last 3 Encounters: 11/11/24 172 lb 6.4 oz (78.2 kg) Physical Exam Vitals reviewed. Constitutional: Appearance: Normal appearance. HENT: Head: Normocephalic and atraumatic. Nose: Nose normal. Mouth/Throat: Mouth: Mucous membranes are moist. Eyes: General: No scleral icterus. Conjunctiva/sclera: Conjunctivae normal. Neck: Comments: Mildly elevated JVD Cardiovascular: Rate and Rhythm: Normal rate. Rhythm irregular. Pulses: Normal pulses. Heart sounds: Normal heart sounds. Pulmonary: Effort: Pulmonary effort is normal. Breath sounds: Normal breath sounds. Abdominal: General: Abdomen is flat. There is distension. Palpations: Abdomen is soft. Musculoskeletal: General: Normal range of motion. Cervical back: Normal range of motion and neck supple. Skin: General: Skin is warm and dry. Neurological: General: No focal deficit present. Mental Status: She is alert. Psychiatric: Mood and Affect: Mood normal. Behavior: Behavior normal. CBC: No results for input(s): WBC, HGB, HCT, PLT in the last 72 hours. BMP:No results for input(s): NA, K, CL, CO2, BUN, CREATININE, GLU, LABGLOM in the last 72 hours. No lab exists for component: CA CMP: No results found for: NA, K, CL, CO2, BUN, CREATININE, GLUCOSE, CALCIUM, PROT, BILITOT, ALKPHOS, AST, ALT, LABGLOM, AGRATIO, GLOB Magnesium: No results found for: MG LFT: No results found for: ALT, AST, GGT, ALKPHOS, BILITOT INR:No results found for: INR, PROTIME PRO-BNP: No components found for: NTPROBNP TROPONIN: No results found for: TROPONINI TSH: No results found for: TSH Lipid Profile: No results found for: TRIG, HDL, LDLCALC, CHOL Hemoglobin A1C: No results found for: HGBA1C PEGGY: No results found for: PEGGY Ferritin: No results found for: FERRITIN HIV: No results found for: [id number] EKG: See Report Echo: See Report EF: No components found for: LVEF, LVEFMODE Diagnosis Plan 1. Acute on chronic systolic heart failure (HCC) 2. Left ventricular hypertrophy ECG 12 lead - CLINIC PERFORMED 3. Typical atrial flutter (HCC) Cardioversion external Basic metabolic panel NT PRO BNP Basic metabolic panel NT PRO BNP 4. Essential hypertension 5. 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 6. Paroxysmal atrial fibrillation (HCC) 7. Chronic diastolic heart failure (HCC) 8. S/P CABG (coronary artery bypass graft) 9. Mixed hyperlipidemia Heart Failure Assessment NYHA class III-A - There is limitation of physical activity. The patient is comfortable at rest, but ord (more content not included)... [facility] 10-15-2024 Note HNO ID: [id number] Author: KALEN ANN APRN.MIKA Service: ? Author Type: Nurse Practitioner Type: Progress Notes Filed: 10/15/2024 10:02 Note Text: -Spoke with the patient in detail, she prefers to go to [place] for her tricuspid work up at this time, she has an apt. In October. I told her to let us know if she needs to come back, we can process her referral accordingly for her TR. She verbalized understanding. Kalen Ann APRN.[employer] [facility] 10-14-2024 Note HNO ID: [id number] Author: SAMANTHA REYES MD Service: ? Author Type: Physician Type: Progress Notes Filed: 10/14/2024 10:05 Note Text: Chief Complaint Patient presents with: 6 Month Exam HPI Sandrine Rivers is a 84 year old female who presents here today for a 6 month follow up. Uses cane to ambulate, denies any falls. No bowel, gi, or urinary concerns. Currently taking Carafate 1 gram QID and Prevacid 30 mg daily for GERD and ongoing GI issues. Taking Mybetriq 50 mg mg daily and Ditropan XL 10 mg daily for urinary incontinence. Follows with Urology, Dr. Parks. Hem/Onc: Hx of ovarian cancer, cancer free. Previously followed with Dr. Landers. Thyroid: Taking Synthroid 125 mcg once daily. Stable on this dosage and denies missing dosages often, maybe occasional. HTN: Checking BP at home, reports her readings vary. Last night her reading was 139/73, earlier that day 109-60's. Has been dealing with issues with chest pain, sob and dizziness. Have some issues with a-fib. Follows with [facility], who's been doing cardiac testing on her. Is on Altace 10 mg daily, HCTZ 12.5 mg daily, Lasix 40 mg half pill BID and Potassium 20 mEq daily. She is no longer on Atenolol, changed to Coreg 6.25 mg 1 pill BID. In Cardio notes she was to decrease Ramipril to 5 mg daily. Was admitted in August and September for dizziness and SOB to [facility]. Had heart cath done in September for angina. She is scheduled to see Cardio in [place] for further evaluation. CKD: monitored with labs. Vit D: Deficient, monitoring through routine labs. Takes Vit D 50,000 international unit(s) once weekly. Lipid/CAD: Recent heart cath done at [facility] by Cardiology on 10/02/24. Taking Crestor 40 mg daily and Niacin ER 500 mg BID. Per last OV from Cardio she was to decrease her regimen to 20 mg daily. Tries to watch diet, working on losing weight. Started out at 220 lbs over a year ago, now 190 lbs. Denies much exercise due to her back and arthritis pain. Does try to walk as much as she can. A-fib/PE/DVT: Currently on Eliquis 5 mg 1 pill BID. Notes some issues with afib acting up. Is following with Cardiology due to ongoing issues of feeling tired and pressure in her head. Arthritis/Back pain: Reports increased arthritis pain. Also has back issues. Taking Tizanidine 4 mg prn and Tylenol 500 mg 2 tabs po prn. Using a cane with ambulating. Bump: to finger of left hand, no pain or drainage. Past medical history, appointments, medications, allergies reviewed. [...] 2 levels APPENDECTOMY CABG, ARTERIAL, FOUR+ 02/26/2000 CARDIOVERSION N/A 03/21/2023 COLONOSCOPY 09/27/2004 COLONOSCOPY FLX DX W/COLLJ SPEC WHEN PFRMD 12/07/2014 Colonoscopy ESOPHAGOGASTRODUODENOSCOPY TRANSORAL DIAGNOSTIC 01/23/2012 EGD HEART SURGERY HX LIG/TRNSXJ FLP TUBE ABDL/VAG APPR UNI/BI NEUROPLASTY AND/TRANSPOS MEDIAN NRV CARPAL TUNNE 09/11/2014 Left CTR NEUROPLASTY AND/TRANSPOSITION ULNAR NERVE ELBOW 09/11/2014 Ulnar nerve decompression left elbow OOPHORECTOMY PARTIAL/TOTAL UNI/BI 10/19/2007 Ovarian cancer, [place] [facility] PAST SURGICAL HISTORY OF 05/28/1973 first [...] Allergen Reactions Streptokinase Hives Poison Araceli Poison [place] Extract Itching Current Medications Current Outpatient Medications on File Prior to Visit Medication Sig spironolactone (ALDACTONE) 25 mg tablet once daily. sucralfate (CARAFATE) 1 gram tablet Take 1 tab (more content not included)... 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 Patient verbalizes understanding. Sharath Donohue LPN [facility]12-23-2024 Miscellaneous Notes* Telephone Encounter - Sharath Donohue LPN - 05/19/2024 12:06 PM EST Patient notified with results. Patient verbalizes understanding. Sharath Donohue LPN * Telephone Encounter - Odessa Sanchez APRN.CNP - 05/19/2024 11:48 AM EST I left a message for patient to return call to office. Culture showed bacterial growth which is resistant to the prescribed antibiotic. I sent a new prescription to her pharmacy-Cipro- which she should take twice a day x 5 times. She should stop taking the cephalexin. Odessa Sanchez APRN.MIKA [facility] Telephone encounter Note * Telephone Encounter - Odessa Sanchez APRN.CNP - 05/19/2024 11:48 AM EST I left a message for patient to return call to office. Culture showed bacterial growth which is resistant to the prescribed antibiotic. I sent a new prescription to her pharmacy-Cipro- which she should take twice a day x 5 times. She should stop taking the cephalexin. Odessa Sanchez APRN.MIKA [facility]12-21-2024 NoteHNO ID: [id number] Author: DAVINA FLOWERS PA-C Service: ? Author Type: Physician Bolt Header Type: Progress Notes Filed: 05/17/2024 11:23 Note Text: This note was created using [employer] [place]. Subjective Sandrine Rivers is a 83 year old female. HPI Patient presents with a chief complaint of urinary frequency, urgency and dysuria since yesterday. She has had some low back pain. No abdominal pain. No fevers or chills. No nausea or vomiting. No vaginal complaints. Has a history of recurrent UTIs. She has seen urology for this previously. Review of Systems Constitutional: Negative for fatigue and fever. HENT: Negative. Respiratory: Negative. Cardiovascular: Negative. Gastrointestinal: Negative. Genitourinary: Positive for dysuria, frequency and urgency. Negative for flank pain, hematuria and pelvic pain. Musculoskeletal: Positive for back pain. All other systems reviewed and are negative. PAST MEDICAL HISTORY Diagnosis Date Diarrhea Diverticulosis of small intestine (without mention of hemorrhage) DVT of leg (deep venous thrombosis) ([facility]) Essential hypertension, benign FH: atrial fibrillation Heart attack (HCC) 1999 Hernia Internal hemorrhoids without mention of complication Malignant neoplasm of ovary (HCC) Other and unspecified hyperlipidemia Other pulmonary embolism and infarction Other specified acquired hypothyroidism Postsurgical aortocoronary bypass status Pulmonary embolism (HCC) hx in [place] Symptomatic menopausal or female climacteric states Unspecified cardiovascular disease Urinary incontinence Current Outpatient Medications Medication Sig Dispense Refill spironolactone (ALDACTONE) 25 mg tablet once daily. cephALEXin (KEFLEX) 500 mg capsule Take 1 capsule by mouth two times a day for 7 days. 14 capsule 0 sucralfate (CARAFATE) 1 gram tablet Take 1 tablet by mouth before meals and at bedtime. 120 tablet 11 rosuvastatin (CRESTOR) 40 mg tablet Take 1 tablet by mouth once daily. 30 tablet 11 levothyroxine (LEVOXYL) 125 mcg tablet Take 1 tablet by mouth once daily. Take on empty stomach. For thyroid. 30 tablet 11 furosemide (LASIX) 40 mg tablet Take 1 tablet by mouth once daily. (Patient not taking: Reported on 05/17/2024) 90 tablet 3 niacin ER (NIASPAN) 500 mg tablet Take 1 tablet by mouth two times a day. 60 tablet 11 hydroCHLOROthiazide (MICROZIDE) 12.5 mg capsule Take 1 capsule by mouth once daily. 90 capsule 3 lansoprazole (PREVACID) 30 mg capsule Take 1 capsule by mouth daily before breakfast. 1/2 hr before meal. 30 capsule 11 potassium chloride 20 mEq TbER Take 1 tablet by mouth once daily. 90 tablet 4 cholecalciferol, Vitamin D3, (VITAMIN D3) 1,250 mcg (50,000 unit) cap capsule Take 1 capsule by mouth one time a week. 12 capsule 3 ramipril (ALTACE) 10 mg capsule Take by mouth once daily. 60 capsule 0 tiZANidine (ZANAFLEX) 4 mg tablet Take 1 tablet by mouth every 8 hours as needed (muscle spasms). 30 tablet 1 oxybutynin ER (DITROPAN XL) 10 mg 24 hr tablet Take 1 tablet by mouth once daily. apixaban (ELIQUIS) 5 mg tab(s) Take 5 mg by mouth twice daily. mirabegron (MYRBETRIQ) 50 mg Tb24 Take 1 tablet by mouth once daily. 30 tablet 5 albuterol HFA (PROAIR HFA) 90 mcg/actuation inhaler [...] one(1) tablet two(2) times daily. 0 0 No current facility-administered medications for this visit. PAST SURGICAL HISTORY Procedure Laterality Date ANESTHESIA LUMBAR REGION NOS disc procedure, 2 levels APPENDECTOMY CABG, ARTERIAL, FOUR+ 02/26/2000 CARDIOVERSION N/A 03/21/2023 COLONOSCOPY 09/27/2004 COLONOSCOPY FLX DX W/COLLJ SPEC WHEN PFRMD 12/07/2014 Colonoscopy ESOPHAGOGASTRODUODENOSCOPY TRANSORAL DIAGNOSTIC 01/23/2012 EGD HEART SURGERY HX LIG/TRNSXJ FLP TUBE ABDL/VAG APPR UNI/BI NEUROPLASTY AND/TRANSPOS MEDIAN NRV CARPAL TUNNE 09/11/2014 Left CTR NEUROPLASTY AND/TRANSPOSITION ULNAR NERVE ELBOW 09/11/2014 Ulnar nerve decompression left elbow OOPHORECTOMY PARTIAL/TOTAL UNI/BI 10/19/2007 Ovarian cancer, [place] [facility] PAST SURGICAL HISTORY OF 05/28/1973 first [...] Mother Stroke Mother other (ceribral hemorige) Maternal Grandfath (more content not included)... [facility]12-21-2024 History of Present illness Narrative* Davina Flowers PA-C - 05/17/2024 11:22 AM EST This note was created using NoteWriter. Subjective Sandrine Rivers is a 83 year old female. HPI Patient presents with a chief complaint of urinary frequency, urgency and dysuria since yesterday. She has had some low back pain. No abdominal pain. No fevers or chills. No nausea or vomiting. No vaginal complaints. Has a history of recurrent UTIs. She has seen urology for this previously. Review of Systems Constitutional: Negative for fatigue and fever. HENT: Negative. Respiratory: Negative. Cardiovascular: Negative. Gastrointestinal: Negative. Genitourinary: Positive for dysuria, frequency and urgency. Negative for flank pain, hematuria and pelvic pain. Musculoskeletal: Positive for back pain. All other systems reviewed and are negative. [...] Current Outpatient Medications Medication Sig Dispense Refill spironolactone (ALDACTONE) 25 mg tablet once daily. cephALEXin (KEFLEX) 500 mg capsule Take 1 capsule by mouth two times a day for 7 days. 14 capsule 0 sucralfate (CARAFATE) 1 gram tablet Take 1 tablet by mouth before meals and at bedtime. 120 tablet 11 rosuvastatin (CRESTOR) 40 mg tablet Take 1 tablet by mouth once daily. 30 tablet 11 levothyroxine (LEVOXYL) 125 mcg tablet Take 1 tablet by mouth once daily. Take on empty stomach. For thyroid. 30 tablet 11 furosemide (LASIX) 40 mg tablet Take 1 tablet by mouth once daily. (Patient not taking: Reported on05/17/2024) 90 tablet 3 niacin ER (NIASPAN) 500 mg tablet Take 1 tablet by mouth two times a day. 60 tablet 11 hydroCHLOROthiazide (MICROZIDE) 12.5 mg capsule Take 1 capsule by mouth once daily. 90 capsule 3 lansoprazole (PREVACID) 30 mg capsule Take 1 capsule by mouth daily before breakfast. 1/2 hr beforemeal. 30 capsule 11 potassium chloride 20 mEq TbER Take 1 tablet by mouth once daily. 90 tablet 4 cholecalciferol, Vitamin D3, (VITAMIN D3) 1,250 mcg (50,000 unit) cap capsule Take 1 capsule by mouth one time a week. 12 capsule 3 ramipril (ALTACE) 10 mg capsule Take by mouth once daily. 60 capsule 0 tiZANidine (ZANAFLEX) 4 mg tablet Take 1 tablet by mouth every 8 hours as needed (muscle spasms). 30 tablet 1 oxybutynin ER (DITROPAN XL) 10 mg 24 hr tablet Take 1 tablet by mouth once daily. apixaban (ELIQUIS) 5 mg tab(s) Take 5 mg by mouth twice daily. mirabegron (MYRBETRIQ) 50 mg Tb24 Take 1 tablet by mouth once daily. 30 tablet 5 albuterol HFA (PROAIR HFA) 90 mcg/actuation inhaler [...] one(1) tablet two(2) times daily. 0 0 No current facility-administered medications for this visit. PAST SURGICAL HISTORY Procedure Laterality Date ANESTHESIA LUMBAR REGION NOS disc procedure, 2 levels APPENDECTOMY CABG, ARTERIAL, FOUR+ 02/26/2000 CARDIOVERSION N/A 03/21/2023 COLONOSCOPY 09/27/2004 COLONOSCOPY FLX DX W/COLLJ SPEC WHEN PFRMD 12/07/2014 Colonoscopy ESOPHAGOGASTRODUODENOSCOPY TRANSORAL DIAGNOSTIC 01/23/2012 EGD HEART SURGERY HX LIG/TRNSXJ FLP TUBE ABDL/VAG APPR UNI/BI NEUROPLASTY &/TRANSPOS MEDIAN NRV CARPAL TUNNE 09/11/2014 Left CTR NEUROPLASTY &/TRANSPOSITION ULNAR NERVE ELBOW 09/11/2014 Ulnar nerve decompression left elbow OOPHORECTOMY PARTIAL/TOTAL UNI/BI 10/19/2007 Ovarian cancer, [facility] PAST SURGICAL HISTORY OF 05/28/1973 first [...] Social History Tobacco Use Smoking status: Former Current packs/day: 0.00 Average packs/day: 0.5 packs/day for 30.0 years (15.0 ttl pk-yrs) Types: Cigarettes Start date: 03/14/1970 Quit date: 03/14/2000 Years since quittin.1 Smokeless tobacco: Never Tobacco comments: Parents smoked in childhood home. Spouse smoked pipe and cigar occasionally in home. Vaping Use Vaping status: Never Used Substance Use Topics Alcohol use: Yes Comment: Rarely. Drug use: No Objective BP 124/60 Pulse 71 Temp 36.3 C (97.3 F) Resp 18 Wt 84.6 kg (186 lb 8.2 oz) LMP 05/28/1990 SpO2 98% BMI 32.01 kg/m Physical Exam Vitals reviewed. Constitutional: Appearance: Normal appearance. HENT: Head: Normocephalic and atraumatic. Cardiovascular: Rate and Rhythm: Normal rate and regular rhythm. Heart sounds: Normal heart sounds. Pulmonary: Effort: Pulmonary effort is normal. Breath sounds: Normal breath sounds. Abdominal: General: Abdomen is flat. Palpations: Abdomen is soft. Tenderness: There is no abdominal tenderness. There is no right CVA tenderness, left CVA tendernessor guarding. Musculoskeletal: Cervical back: Neck supple. Skin: General: Skin is warm and dry. Neurological: Mental Status: She is alert. Assessment and Plan ASSESSMENT/PLAN: 1. Acute UTI - ICD9: 599.0, ICD10: N39.0 - UA positive for jose daniel esterase, hematuria, and proteinuria - Send urine for culture - Begin treatment with keflex for 7 days - Patient education for prevention given - UA DIP, URINE (POC) - URINE CULTURE Davina Flowers PA-C documented in this encounterUniversity Hospitals Health System11-18-2024 History of Present illness Narrative* Samantha Reyes MD - 04/14/2024 1:40 PM EST Chief Complaint Patient presents with: F/U 6 Month HPI Sandrine Rivers is a 83 year old female who presents here today for 6 month follow up. Uses cane, denies any falls. Taking Carafate 1 gram QID and Prevacid 30 mg daily for GERD and Gi issues. Taking Mybetriq 50 mg mg daily and Ditropan xl 10 mg daily for urinary incontinence. Follows with Urologist Dr. Parks. Hem/Onc: Hx of ovarian cancer. Previously followed with Dr. Landers, but is cancer free. Thyroid: Taking Synthroid 125 mcg once daily. Stable on this dosage and denies missing dosages often, maybe occasional. HTN: Checking BP at home, reports her readings vary. Last night her reading was 139/73, earlier that day 109-60's. Has been dealing with issues with chest pain, sob and dizziness. Have some issues with a-fib. Follows with [facility], who's been doing cardiac testing on her. Is on Altace 10mg daily, HCTZ 12.5 mg daily, Lasix 40 mg half pill BID and Potassium 20 mEq daily. In Cardio notesshe was to decrease Ramipril to 5 mg daily. CKD: monitored with labs. Vit D: Deficient, monitoring through routine labs. Takes Vit D 50,000 international unit(s) once weekly. Lipid/CAD: Taking Crestor 40 mg daily and niacin er 500 mg BID. Per last OV from Cardio she was to decrease her regimen to 20 mg daily. Tries to watch diet, working on losing weight. Started out at 220 lbs over a year ago, now 190 lbs. Denies much exercise due to her back and arthritis pain. Does try to walk as much as she can. A-fib/PE/DVT: Is on Eliquis 5 mg 1 pill BID. Notes some issues with afib acting up. Notes feeling tired and a pressure on the top/back of her head. Is following with Cardiology on her recent cardiac test results, has not yet heard from them in regards to this. Arthritis/Back pain - Reports increased arthritis pain. Also has back issues. Taking Tizanidine 4 mg prn and Tylenol 500 mg 2 tabs po prn. Using a cane with ambulating. HM - Shingles and RSV through Pharmacy due to Medicare Insurance. Past medical history, appointments, medications, allergies reviewed. [...] 2 levels APPENDECTOMY CABG, ARTERIAL, FOUR+ 02/26/2000 CARDIOVERSION N/A 03/21/2023 COLONOSCOPY 09/27/2004 COLONOSCOPY FLX DX W/COLLJ SPEC WHEN PFRMD 12/07/2014 Colonoscopy ESOPHAGOGASTRODUODENOSCOPY TRANSORAL DIAGNOSTIC 01/23/2012 EGD HEART SURGERY HX LIG/TRNSXJ FLP TUBE ABDL/VAG APPR UNI/BI NEUROPLASTY &/TRANSPOS MEDIAN NRV CARPAL TUNNE 09/11/2014 Left CTR NEUROPLASTY &/TRANSPOSITION ULNAR NERVE ELBOW 09/11/2014 Ulnar nerve decompression left elbow OOPHORECTOMY PARTIAL/TOTAL UNI/BI 10/19/2007 Ovarian cancer, [facility] PAST SURGICAL HISTORY OF 05/28/1973 first [...] Allergen Reactions Streptokinase Hives Poison Araceli Poison [place] Extract Itching Current Medications Current Outpatient Medications on File Prior to Visit Medication Sig potassium chloride 20 mEq TbER Take 1 tablet by mouth once daily. cholecalciferol, Vitamin D3, (VITAMIN D3) 1,250 mcg (50,000 unit) cap capsule Take 1 capsule by mouth one time a week. ramipril (ALTACE) 10 mg capsule Take by mouth once daily. tiZANidine (ZANAFLEX) 4 mg tablet Take 1 tablet by mouth every 8 hours as needed (muscle spasms). oxybutynin ER (DITROPAN XL) 10 mg 24 hr tablet Take 1 tablet by mouth once [...] Take 1 capsule by mouth once daily. lansoprazole (PREVACID) 30 mg capsule Take 1 capsule by mouth daily before breakfast. 1/2 hr beforemeal. levothyroxine (LEVOXYL) 125 mcg tablet Take 1 tablet by mouth once daily. Take on empty stomach. For thyroid. apixaban (ELIQUIS) 5 mg tab(s) Take 5 [...] Social History Tobacco Use Smoking status: Former Current packs/day: 0.00 Average packs/day: 0.5 packs/day for 30.0 years (15.0 ttl pk-yrs) Types: Cigarettes Start date: 03/14/1970 Quit date: 03/14/2000 Years since quittin.1 Smokeless tobacco: Never Tobacco comments: Parents smoked in childhood home. Spouse smoked pipe and cigar occasionally in home. Vaping Use Vaping status: Never Used Substance Use Topics Alcohol use: Yes Comment: Rarely. Drug use: No EXAM: BP 108/62 (BP Site: Left Arm, BP Position: Sitting, BP Cuff Size: Large Adult) Pulse 88 Resp 18 Wt 86.2 kg (190 lb 0.6 oz) LMP 05/28/1990 BMI 32.62 kg/m General Appearance: Well appearing, alert, in no acute distress, well-hydrated, well nourished., Obese, and using a cane. Neck: Supple, no adenopathy; thyroid symmetric, normal size, no bruits. Lungs: Lungs clear to auscultation. No wheezing, rhonchi, rales.. Heart: RRR without murmur, gallop, or rubs. No ectopy. Afib heard [place] Maintenance List Shingrix Vaccine(2 of 3) due on 02/09/2012 RSV Vaccine(1 - 1-dose 75+ series) Never done Covid-19 Vaccine( season) due on 04/22/2024 LDL Cholesterol due on 10/01/2024 Depression Screening due on 10/10/2024 Anxiety Screening due on 10/10/2024 DTaP,Tdap,Td Vaccine(3 - Td or Tdap) due on 07/13/2026 Diabetes Screening due on 10/01/2026 Bone Density Screening Completed Influenza Vaccine Completed Advance Directive Discussion Completed Pneumococcal Vaccine: 65+ Completed HPV Vaccine Aged Out Colorectal Cancer Screening Discontinued Data reviewed External cardiac tests ASSESSMENT/PLAN: 1. Essential hypertension, benign - ICD9: 401.1, ICD10: I10 (primary diagnosis) - Controlled - Recommend home blood pressure monitoring, to bring results to next visit - Encouraged sodium restriction, DASH or Mediterranean diet - Recommend regular aerobic exercise - COMPREHENSIVE METABOLIC PANEL - LIPID PANEL BASIC 2. Hyperlipidemia, unspecified hyperlipidemia type - ICD9: 272.4, ICD10: E78.5 - Controlled - Counseled on healthy diet and regular exercise - COMPREHENSIVE METABOLIC PANEL - LIPID PANEL BASIC 3. Atrial fibrillation, unspecified type (HCC) - ICD9: 427.31, ICD10: I48.91 4. Deep vein thrombosis (DVT) of lower extremity, unspecified chronicity, unspecified laterality, unspecified vein (HCC) - ICD9: 453.40, ICD10: I82.409 5. Atherosclerosis of 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 coronary artery of 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 angina pectoris - ICD9: 414.01, ICD10: I25.10 - LIPID PANEL BASIC 6. Hypothyroidism, unspecified type - ICD9: 244.9, ICD10: E03.9 - THYROID STIMULATING HORMONE 7. Chronic kidney disease, stage 3a (HCC) - ICD9: 585.3, ICD10: N18.31 - COMPREHENSIVE METABOLIC PANEL 8. Gastroesophageal reflux disease, unspecified whether esophagitis present - ICD9: 530.81, ICD10: K21.9 9. Urinary incontinence, unspecified type - ICD9: 788.30, ICD10: R32 - Continue current medication regimen. - cont f/u with Urology. 10. Vitamin D deficiency - ICD9: 268.9, ICD10: E55.9 - Await results - Continue current medication regimen. - VITAMIN D 25 HYDROXY 6 mo f/u. Labs currently in process, will await results and put in new orders. I agree with the Chief Complaint, ROS, and Past Histories independently gathered by the clinical technician support association and the remaining scribed note accurately describes my personal service to the patient. Medical Decision Making: Problems: Moderate: 2+ stable chronic illnesses Risk: Moderate: Drug management Medical Decision Making Level: 4 - Moderate Samantha Reyes MD The documentation for this note was completed by Deborah Carlisle MA acting as scribe for Samantha Reyes MD. April 14, 2024 1:50 PM. Deborah Carlisle MA documented in this encounterUniversity Hospitals Health System11-18-2024 NoteHNO ID: [id number] Author: SAMANTHA REYES MD Service: ? Author Type: Physician Type: Progress Notes Filed: 04/14/2024 18:45 Note Text: Chief Complaint Patient presents with: F/U 6 Month HPI Sandrine Rivers is a 83 year old female who presents here today for 6 month follow up. Uses cane, denies any falls. Taking Carafate 1 gram QID and Prevacid 30 mg daily for GERD and Gi issues. Taking Mybetriq 50 mg mg daily and Ditropan xl 10 mg daily for urinary incontinence. Follows with Urologist Dr. Parks. Hem/Onc: Hx of ovarian cancer. Previously followed with Dr. Landers, but is cancer free. Thyroid: Taking Synthroid 125 mcg once daily. Stable on this dosage and denies missing dosages often, maybe occasional. HTN: Checking BP at home, reports her readings vary. Last night her reading was 139/73, earlier that day 109-60's. Has been dealing with issues with chest pain, sob and dizziness. Have some issues with a-fib. Follows with [facility], who's been doing cardiac testing on her. Is on Altace 10 mg daily, HCTZ 12.5 mg daily, Lasix 40 mg half pill BID and Potassium 20 mEq daily. In Cardio notes she was to decrease Ramipril to 5 mg daily. CKD: monitored with labs. Vit D: Deficient, monitoring through routine labs. Takes Vit D 50,000 international unit(s) once weekly. Lipid/CAD: Taking Crestor 40 mg daily and niacin er 500 mg BID. Per last OV from Cardio she was to decrease her regimen to 20 mg daily. Tries to watch diet, working on losing weight. Started out at 220 lbs over a year ago, now 190 lbs. Denies much exercise due to her back and arthritis pain. Does try to walk as much as she can. A-fib/PE/DVT: Is on Eliquis 5 mg 1 pill BID. Notes some issues with afib acting up. Notes feeling tired and a pressure on the top/back of her head. Is following with Cardiology on her recent cardiac test results, has not yet heard from them in regards to this. Arthritis/Back pain - Reports increased arthritis pain. Also has back issues. Taking Tizanidine 4 mg prn and Tylenol 500 mg 2 tabs po prn. Using a cane with ambulating. HM - Shingles and RSV through Pharmacy due to Medicare Insurance. Past medical history, appointments, medications, allergies reviewed. [...] 2 levels APPENDECTOMY CABG, ARTERIAL, FOUR+ 02/26/2000 CARDIOVERSION N/A 03/21/2023 COLONOSCOPY 09/27/2004 COLONOSCOPY FLX DX W/COLLJ SPEC WHEN PFRMD 12/07/2014 Colonoscopy ESOPHAGOGASTRODUODENOSCOPY TRANSORAL DIAGNOSTIC 01/23/2012 EGD HEART SURGERY HX LIG/TRNSXJ FLP TUBE ABDL/VAG APPR UNI/BI NEUROPLASTY AND/TRANSPOS MEDIAN NRV CARPAL TUNNE 09/11/2014 Left CTR NEUROPLASTY AND/TRANSPOSITION ULNAR NERVE ELBOW 09/11/2014 Ulnar nerve decompression left elbow OOPHORECTOMY PARTIAL/TOTAL UNI/BI 10/19/2007 Ovarian cancer, [facility] PAST SURGICAL HISTORY OF 05/28/1973 first [...] Allergen Reactions Streptokinase Hives Poison Araceli Poison [place] Extract Itching Current Medications Current Outpatient Medications on File Prior to Visit Medication Sig potassium chloride 20 mEq TbER Take 1 tablet by mouth once daily. cholecalciferol, Vitamin D3, (VITAMIN D3) 1,250 mcg (50,000 unit) cap capsule Take 1 capsule by mouth one time a week. ramipril (ALTACE) 10 mg capsule Take by mouth once daily. tiZANidine (ZANAFLEX) 4 mg tablet Take 1 tablet by mouth every 8 hours as needed (muscle spasms). oxybutyn (more content not included)...[facility]11-07-2024 Telephone encounter Note* Telephone Encounter - Charles Chavez APRN.[employer] - 04/03/2024 10:41 AM EST The following approved medication requests have been transmitted electronically. Requested Prescriptions Pending Prescriptions Disp Refills sucralfate (CARAFATE) 1 gram tablet 120 tablet 11 Sig: Take 1 tablet by mouth before meals and at bedtime. rosuvastatin (CRESTOR) 40 mg tablet 30 tablet 11 Sig: Take 1 tablet by mouth once daily. levothyroxine (LEVOXYL) 125 mcg tablet 30 tablet 11 Sig: Take 1 tablet by mouth once daily. Take on empty stomach. For thyroid. furosemide (LASIX) 40 mg tablet 90 tablet 3 Sig: Take 1 tablet by mouth once daily. niacin ER (NIASPAN) 500 mg tablet 60 tablet 11 Sig: Take 1 tablet by mouth two times a day. hydroCHLOROthiazide (MICROZIDE) 12.5 mg capsule 90 capsule 3 Sig: Take 1 capsule by mouth once daily. lansoprazole (PREVACID) 30 mg capsule 30 capsule 11 Sig: Take 1 capsule by mouth daily before breakfast. 1/2 hr before meal. Charles Chavez APRN.CNP [facility]11-07-2024 Miscellaneous Notes* Telephone Encounter - Charles Chavez APRN.CNP - 04/03/2024 10:41 AM EST The following approved medication requests have been transmitted electronically. Requested Prescriptions Pending Prescriptions Disp Refills sucralfate (CARAFATE) 1 gram tablet 120 tablet 11 Sig: Take 1 tablet by mouth before meals and at bedtime. rosuvastatin (CRESTOR) 40 mg tablet 30 tablet 11 Sig: Take 1 tablet by mouth once daily. levothyroxine (LEVOXYL) 125 mcg tablet 30 tablet 11 Sig: Take 1 tablet by mouth once daily. Take on empty stomach. For thyroid. furosemide (LASIX) 40 mg tablet 90 tablet 3 Sig: Take 1 tablet by mouth once daily. niacin ER (NIASPAN) 500 mg tablet 60 tablet 11 Sig: Take 1 tablet by mouth two times a day. hydroCHLOROthiazide (MICROZIDE) 12.5 mg capsule 90 capsule 3 Sig: Take 1 capsule by mouth once daily. lansoprazole (PREVACID) 30 mg capsule 30 capsule 11 Sig: Take 1 capsule by mouth daily before breakfast. 1/2 hr before meal. Charles Chavez APRN.CNP * Telephone Encounter - Laurie Jain - 04/03/2024 8:29 AM EST Prescription Refill Information The patient has been identified by name and date of : Yes Caregiver verified no other encounters exist for this prescription request: Yes Caregiver confirmed with patient/requestor that no other refills are due, in the near future, with this provider at this time: Yes The last office visit in the department: 10/11/23 Does the patient have a future office visit with this provider/department: Yes Requested Prescriptions Pending Prescriptions Disp Refills sucralfate (CARAFATE) 1 gram tablet 120 tablet 11 Sig: Take 1 tablet by mouth before meals and at bedtime. rosuvastatin (CRESTOR) 40 mg tablet 30 tablet 11 Sig: Take 1 tablet by mouth once daily. levothyroxine (LEVOXYL) 125 mcg tablet 30 tablet 11 Sig: Take 1 tablet by mouth once daily. Take on empty stomach. For thyroid. furosemide (LASIX) 40 mg tablet 90 tablet 3 Sig: Take 1 tablet by mouth once daily. niacin ER (NIASPAN) 500 mg tablet 60 tablet 11 Sig: Take 1 tablet by mouth two times a day. hydroCHLOROthiazide (MICROZIDE) 12.5 mg capsule 90 capsule 3 Sig: Take 1 capsule by mouth once daily. lansoprazole (PREVACID) 30 mg capsule 30 capsule 11 Sig: Take 1 capsule by mouth daily before breakfast. 1/2 hr before meal. Laurie Vega April 03, 2024 8:30 AM documented in this encounterUniversity Hospitals Health System11-07-2024 Telephone encounter Note * Telephone Encounter - Laurie Jain - 04/03/2024 8:29 AM EST Prescription Refill Information The patient has been identified by name and date of : Yes Caregiver verified no other encounters exist for this prescription request: Yes Caregiver confirmed with patient/requestor that no other refills are due, in the near future, with this provider at this time: Yes The last office visit in the department: 10/11/23 Does the patient have a future office visit with this provider/department: Yes Requested Prescriptions Pending Prescriptions Disp Refills sucralfate (CARAFATE) 1 gram tablet 120 tablet 11 Sig: Take 1 tablet by mouth before meals and at bedtime. rosuvastatin (CRESTOR) 40 mg tablet 30 tablet 11 Sig: Take 1 tablet by mouth once daily. levothyroxine (LEVOXYL) 125 mcg tablet 30 tablet 11 Sig: Take 1 tablet by mouth once daily. Take on empty stomach. For thyroid. furosemide (LASIX) 40 mg tablet 90 tablet 3 Sig: Take 1 tablet by mouth once daily. niacin ER (NIASPAN) 500 mg tablet 60 tablet 11 Sig: Take 1 tablet by mouth two times a day. hydroCHLOROthiazide (MICROZIDE) 12.5 mg capsule 90 capsule 3 Sig: Take 1 capsule by mouth once daily. lansoprazole (PREVACID) 30 mg capsule 30 capsule 11 Sig: Take 1 capsule by mouth daily before breakfast. 1/2 hr before meal. Laurie Vega April 03, 2024 8:30 AM [facility] Telephone encounter Note* Telephone Encounter - Jenna Ochoa - 03/27/2024 10:22 AM EDT Patient had 1 refill on her bottle so she did not need to call us. Thank you. Jenna Vega [facility] Miscellaneous Notes* Telephone Encounter - Jenna Ochoa - 03/27/2024 10:22 AM EDT Patient had 1 refill on her bottle so she did not need to call us. Thank you. Jenna Vega documented in this encounterUniversity Hospitals Health System10-24-2024 Telephone encounter Note * Telephone Encounter - Jenna Ochoa - 03/20/2024 8:57 AM EDT Prescription Refill Information The patient has been identified by name and date of : Yes Caregiver verified no other encounters exist for this prescription request: Yes Caregiver confirmed with patient/requestor that no other refills are due, in the near future, with this provider at this time: Yes The last office visit in the department: 10-11-23 Does the patient have a future office visit with this provider/department: Yes Requested Prescriptions Pending Prescriptions Disp Refills potassium chloride 20 mEq TbER 90 tablet 4 Sig: Take 1 tablet by mouth once daily. cholecalciferol, Vitamin D3, (VITAMIN D3) 1,250 mcg (50,000 unit) cap capsule 12 capsule 3 Sig: Take 1 capsule by mouth one time a week. Jenna Vega March 20, 2024 8:58 AM [facility] Miscellaneous Notes* Telephone Encounter - Jenna Ochoa - 03/20/2024 8:57 AM EDT Prescription Refill Information The patient has been identified by name and date of : Yes Caregiver verified no other encounters exist for this prescription request: Yes Caregiver confirmed with patient/requestor that no other refills are due, in the near future, with this provider at this time: Yes The last office visit in the department: 10-11-23 Does the patient have a future office visit with this provider/department: Yes Requested Prescriptions Pending Prescriptions Disp Refills potassium chloride 20 mEq TbER 90 tablet 4 Sig: Take 1 tablet by mouth once daily. cholecalciferol, Vitamin D3, (VITAMIN D3) 1,250 mcg (50,000 unit) cap capsule 12 capsule 3 Sig: Take 1 capsule by mouth one time a week. Jenna Vega March 20, 2024 8:58 AM documented in this encounterUniversity Hospitals Health System10-03-2024 Telephone encounter Note * Telephone Encounter - Samantha Reyes MD - 02/28/2024 4:34 PM EDT Noted Samantha Reyes MD [facility] Miscellaneous Notes* Telephone Encounter - Samantha Reyes MD - 02/28/2024 4:34 PM EDT Noted Samantha Reyes MD * Telephone Encounter - Alina Sanon LPN - 02/28/2024 12:37 PM EDT Pt calling with concerns about her BP. She reports the following readings: 02/26/24 121/65 02/27/24 108/61 AM 117/64 PM 02/28/24 112/62 Pt states she feels fine no concerns. Explained to pt that I did not see anything abnormal readings. Pt states understanding. Pt reports that her temp was 88.8, we discussed the accuracy of her thermometer & she states she has had it for some time now. Pt has an appt 04/14/24 with pcp. Pt will monitor her BP & will call with any concerns. Pt received covid & flu vaccines 02/26/24 at the pharmacy. Pt's imms record updated in chart. Alina Sanon LPN documented in this encounterUniversity Hospitals Health System10-03-2024 Telephone encounter Note * Telephone Encounter - Alina Sanon LPN - 02/28/2024 12:37 PM EDT Pt calling with concerns about her BP. She reports the following readings: 02/26/24 121/65 02/27/24 108/61 AM 117/64 PM 02/28/24 112/62 Pt states she feels fine no concerns. Explained to pt that I did not see anything abnormal readings. Pt states understanding. Pt reports that her temp was 88.8, we discussed the accuracy of her thermometer & she states she has had it for some time now. Pt has an appt 04/14/24 with pcp. Pt will monitor her BP & will call with any concerns. Pt received covid & flu vaccines 02/26/24 at the pharmacy. Pt's imms record updated in chart. Alina Sanon LPN [facility] Note* Letter - Coordinator, Mammography - 10/12/2023 8:35 AM EDT October 12, 2023 PID: [id number] Sandrine Rivers [id number] [place] [address] Dear Ms. Rivers, We are pleased to inform you that the results of your recent breast imaging exam on 10/11/2023 are normal. Early detection of cancer is very important. We also understand recommendations regarding breast cancer screening are controversial. Please discuss with your primary care provider which strategy is best for you and whether a mammogram is right for you. Your imaging studies and report will be kept [facility] at [facility] as part of your permanent medical record and are available for your continuing care. Thank you for allowing us to help in meeting your health care needs. Sincerely, Dr. Cooper Interpreting Radiologist [facility] (Normal over 40) [facility]05-17-20[facility] Miscellaneous Notes* Letter - Coordinator, Mammography - 10/12/2023 8:35 AM EDT October 12, 2023 PID: [id number] Sandrine Rivers [id number] [place] [address] Dear Ms. Rivers, We are pleased to inform you that the results of your recent breast imaging exam on 10/11/2023 are normal. Early detection of cancer is very important. We also understand recommendations regarding breast cancer screening are controversial. Please discuss with your primary care provider which strategy is best for you and whether a mammogram is right for you. Your imaging studies and report will be [facility] at [facility] as part of your permanent medical record and are available for your continuing care. Thank you for allowing us to help in meeting your health care needs. Sincerely, Dr. Cooper Interpreting Radiologist [facility] (Normal over 40) documented in this encounterUniversity Hospitals Health System05-16-2024 History of Present illness Narrative* Maureen Amezcua [place] [facility] [place] - 10/11/2023 11:10 AM EDT Radiology Service Progress Note PATIENT NAME: Sandrine Rivers DATE OF SERVICE: October 11, 2023 TIME: 11:14 AM PATIENT IDENTITY VERIFICATION COMPLETED USING TWO (2) IDENTIFIERS: Name and Date of confirmedby patient verbally. FALL SCREENING: Has the patient had 2 falls in the last year or 1 fall with injury or currently using an Ambulatory Assistive Device (Walker, Cane, Wheelchair, Crutches, etc.)? No PATIENT GENDER DATA: Female. status: : No status: NO. PATIENT RELEVANT IMPLANT DATA REVIEWED: Not Applicable PATIENT PRESENTS WITH AN IMPLANTABLE OR ATTACHED GIS GEOGRAPHER: No RADIOLOGY DEPARTMENT: Mammography PERIPHERAL IV DATA: Not applicable SIGNED BY: Abiodun Blanchard October 11, 2023 11:14 AM documented in this encounterUniversity Hospitals Health System05-16-2024 History of Present illness Narrative* Samantha Reyes MD - 10/11/2023 9:40 AM EDT Chief Complaint Patient presents with: 6 Month Exam HPI Sandrine Rivers is a 83 year old female who presents here today for a 6 month follow up. Her has dementia and tends to be kelley at times. No falls, uses a cane. Has an advanced directive. Behavioral health screening; denies feeling depressed or hopeless, anxious, etc. Was seen acutely by Charles Chavez CNP for acute midline back pain. Uses Tizanidine and Tylenol prn. Chronic GI issues and GERD. Takes Carafate 1 gram QID and Prevacid 30 mg once daily. Takes Hmuodihe80 mg once daily and Ditropan XL 10 mg once daily for urinary incontinence. Follows with Dr. Parks. HTN: Checks BP at home, this has been good. Denies any chest pain. Has reported dizziness and sob in the past with moving too quickly. On current regimen Altace 10 mg once daily, HCTZ 12.5 mg once daily, Lasix 40 mg 0.5 tab po bid and Potassium 20 mEq once daily. Follows with Cardio, [facility]. Afib/PE/DVT: Takes Eliquis 5 mg 1 tab po bid. Previous cardioversion done last year, no issues since that time. CKD: Monitoring through routine labs. Lipid/CAD: Tries to watch her diet. Denies much exercise. Currently taking Crestor 40 mg once dailyand Niacin ER 500 mg bid. Follows with [facility]. Thyroid: Taking Synthroid 125 mcg once daily. Stable on this dosage. Denies any missed dosages. Shehas been feeling more tired than normal for her. She states at around 5 pm she sits in her chair and starts falling asleep. She goes to bed at 10 PM and gets up around 7-8 AM. Vit D: Deficient, monitoring through routine labs. Takes Vit D 50,000 international unit(s) once weekly. Hem/Onc: Hx of ovarian cancer. Previously followed with Dr. Landers, but is cancer free. MonitoringCBC. Does not need to continue with Hem/On Dr. Landers. Getting mammograms every 2 years. No further intervention at this time Past medical history, appointments, medications, allergies reviewed. [...] 2 levels APPENDECTOMY CABG, ARTERIAL, FOUR+ 02/26/2000 CARDIOVERSION N/A 03/21/2023 COLONOSCOPY 09/27/2004 COLONOSCOPY FLX DX W/COLLJ SPEC WHEN PFRMD 12/07/2014 Colonoscopy ESOPHAGOGASTRODUODENOSCOPY TRANSORAL DIAGNOSTIC 01/23/2012 EGD HEART SURGERY HX LIG/TRNSXJ FLP TUBE ABDL/VAG APPR UNI/BI NEUROPLASTY &/TRANSPOS MEDIAN NRV CARPAL TUNNE 09/11/2014 Left CTR NEUROPLASTY &/TRANSPOSITION ULNAR NERVE ELBOW 09/11/2014 Ulnar nerve decompression left elbow OOPHORECTOMY PARTIAL/TOTAL UNI/BI 10/19/2007 Ovarian cancer, [facility] PAST SURGICAL HISTORY OF 05/28/1973 first [...] Allergen Reactions Streptokinase Hives Poison Araceli Poison [place] Extract Itching Current Medications Current Outpatient Medications on File Prior to Visit Medication Sig rosuvastatin (CRESTOR) 20 mg tablet Take 1 tablet by mouth once daily. tiZANidine (ZANAFLEX) 4 mg tablet Take 1 tablet by mouth every 8 hours as needed (muscle spasms). oxybutynin ER (DITROPAN XL) 10 mg 24 hr tablet Take 1 tablet by mouth once daily. sucralfate (CARAFATE) 1 gram tablet Take 1 tablet by mouth before meals and at bedtime. rosuvastatin (CRESTOR) 40 mg tablet Take 1 tablet by mouth once daily. (Patient not taking: Reported on 08/24/2023) niacin ER (NIASPAN) 500 mg tablet Take 1 tablet by mouth two times a day. furosemide (LASIX) 40 mg tablet Take 1 tablet by mouth once daily. hydroCHLOROthiazide (MICROZIDE) 12.5 mg capsule Take 1 capsule by mouth once daily. potassium chloride 20 mEq TbER Take 1 tablet by mouth once daily. ramipril (ALTACE) 10 mg capsule Take two (2) by mouth once daily. (Patient taking differently: Takeby mouth once daily.) lansoprazole (PREVACID) 30 mg capsule Take 1 capsule by mouth daily before breakfast. 1/2 hr beforemeal. levothyroxine (LEVOXYL) 125 mcg tablet Take 1 tablet by mouth once daily. Take on empty stomach. For thyroid. cholecalciferol, Vitamin D3, (VITAMIN D3) 1,250 mcg (50,000 unit) cap capsule Take 1 capsule by mouth one time a week. apixaban (ELIQUIS) 5 mg tab(s) Take 5 [...] 03/14/2000 Years since quittin.5 Smokeless tobacco: Never Tobacco comments: Parents smoked in childhood home. Spouse smoked pipe and cigar occasionally in home. Vaping Use Vaping Use: Never used Substance Use Topics Alcohol use: Yes Comment: Rarely. Drug use: No EXAM: BP 124/74 Pulse 68 Resp 16 Wt 87.4 kg (192 lb 9.6 oz) LMP 05/28/1990 BMI 33.06 kg/m General Appearance: Well appearing, alert, in no acute distress, well-hydrated, well nourished.. Lungs: Lungs clear to auscultation. No wheezing, rhonchi, rales.. Heart: RRR without murmur, gallop, or rubs. No ectopy. Health Maintenance List RSV Vaccine(1 - 1-dose 60+ series) Never done Shingrix Vaccine(2 of 3) due on 02/09/2012 Advance Directive Discussion due on 05/28/2023 Behavioral Health Screening Never done Covid-19 Vaccine() due on 08/27/2023 LDL Cholesterol due on 10/01/2024 DTaP,Tdap,Td Vaccine(3 - Td or Tdap) due on 07/13/2026 Diabetes Screening due on 10/01/2026 Bone Density Screening Completed Influenza Vaccine Completed Pneumococcal Vaccine: 65+ Completed HPV Vaccine Aged Out Colorectal Cancer Screening Discontinued Data reviewed Appointment on 10/02/2023 Component Date Value Protein, Total 10/02/2023 6.4 Albumin 10/02/2023 4.0 Calcium, Total 10/02/2023 10.4 (H) Bilirubin, Total 10/02/2023 0.4 Alkaline Phosphatase 10/02/2023 41 AST 10/02/2023 24 ALT 10/02/2023 11 Glucose 10/02/2023 84 BUN 10/02/2023 19 Creatinine 10/02/2023 1.12 (H) Sodium 10/02/2023 141 Potassium 10/02/2023 4.6 Chloride 10/02/2023 105 CO2 10/02/2023 25 Anion Gap 10/02/2023 11 Estimated Glomerular Sylvain* 10/02/2023 49 (L) Cholesterol, Total 10/02/2023 158 Triglyceride 10/02/2023 253 (H) HDL Cholesterol 10/02/2023 43 Non HDL Cholesterol 10/02/2023 115 Fasting Time 10/02/2023 12 VLDL Cholesterol 10/02/2023 51 (H) TC:HDL Ratio 10/02/2023 3.67 LDL Cholesterol 10/02/2023 64 LDL:HDL Ratio 10/02/2023 1.49 TSH 10/02/2023 3.040 WBC 10/02/2023 7.46 RBC 10/02/2023 4.13 Hemoglobin 10/02/2023 11.7 Hematocrit 10/02/2023 38.3 MCV 10/02/2023 92.7 MCH 10/02/2023 28.3 MCHC 10/02/2023 30.5 RDW-CV 10/02/2023 13.2 Platelet Count 10/02/2023 277 MPV 10/02/2023 11.1 Neutrophils % 10/02/2023 47.9 Abs Neut 10/02/2023 3.57 Lymphocytes % 10/02/2023 38.7 Abs Lymph 10/02/2023 2.89 Monocytes % 10/02/2023 10.7 Abs [place] 10/02/2023 0.80 Eosinophils % 10/02/2023 1.6 Abs Eosin 10/02/2023 0.12 Basophils % 10/02/2023 0.7 Abs Baso 10/02/2023 0.05 Immature Granulocytes % 10/02/2023 0.4 Abs Immature Gran 10/02/2023 0.03 NRBC 10/02/2023 0.0 Absolute nRBC 10/02/2023 <0.01 Diff Type 10/02/2023 Auto Vitamin D 25 Hydroxy 10/02/2023 68.3 ASSESSMENT/PLAN: 1. Essential hypertension, benign - ICD9: 401.1, ICD10: I10 (primary diagnosis) - Controlled - Continue current medications - Recommend home blood pressure monitoring, to bring results to next visit - Encouraged sodium restriction, DASH or Mediterranean diet - Recommend regular aerobic exercise - Discussed need for and benefit of weight loss. BMI 33.06 kg/(m^2) 2. Atrial fibrillation, unspecified type (HCC) - ICD9: 427.31, ICD10: I48.91 Stable Continue current medications. Continue with Cardio 3. Chronic kidney disease, stage 3a (HCC) - ICD9: 585.3, ICD10: N18.31 Stable Continue current medications. Continue to monitor labs 4. Need for vaccination - ICD9: V05.9, ICD10: Z23 COVID vaccine given 5. Encounter for screening mammogram for malignant neoplasm of breast - ICD9: V76.12, ICD10: Z12.31 - Encouraged monthly BSE - Follow up for annual exam in one year. 6. Atherosclerosis of 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 coronary artery of 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 angina pectoris - ICD9: 414.01, ICD10: I25.10 Continue current medications. Continue with Cardio 7. Gastroesophageal reflux disease, unspecified whether esophagitis present - ICD9: 530.81, ICD10: K21.9 Controlled Continue current medications. 8. Hypothyroidism, unspecified type - ICD9: 244.9, ICD10: E03.9 - Instructed patient on importance of taking on an empty stomach either first thing in the morning or at bedtime. Stable Continue current medications. 9. Obesity, Class II, BMI 35-39.9 - ICD9: 278.00, ICD10: E66.9 Continue with diet and exercise 10. Vitamin D deficiency - ICD9: 268.9, ICD10: E55.9 Continue current medications. Follow up in 6 months with fasting labs prior. I agree with the Chief Complaint, ROS, and Past Histories independently gathered by the clinical technician support association and the remaining scribed note accurately describes my personal service to the patient. Medical Decision Making: Problems: Moderate: 2+ stable chronic illnesses Data: Unique test result(s) reviewed: 3+ Unique test(s) ordered: 3+ Risk: Moderate: Drug management Medical Decision Making Level: 4 - Moderate Samantha Reyes MD The documentation for this note was completed by Julia Patel MA acting as scribe for Samantha Reyes MD. October 11, 2023 9:32 AM. Julia Patel MA documented in this encounterUniversity Hospitals Health System11-14-2023 History of Present illness Narrative* Samantha Reyes MD - 04/10/2023 3:00 PM EST Chief Complaint Patient presents with: F/U 6 [...] cancer, follow up as she is cancer free. Monitoring CBC. HTN: Taking Altace 10 mg 2 pills once daily and HCTZ 12.5 mg daily. Notes no chest pain today, did have on 04/08/23. Occasional dizziness and sob when moving too quickly. Has appt with [facility] this week for follow up. Checks BP occ at home, reports it's been doing real good. Also takingLasix 40 mg daily (0.5 tab bid) and Potassium 20 mEq once daily. CKD - Stable, slightly elevated. Monitoring through routine labs. Thyroid: Taking Synthroid 125 mcg daily. No missed dosages. A-fib/PE/DVT: Taking Eliquis 5 mg BID. Cardioversion done in Jun and doing well since. Also had cardioversion done on 03/21/23. Overall feels that she's doing well. Did go to ED on 04/08/23 for chestpain. Lipid/CAD: Follows with [facility]. Tries to watch diet but denies much exercise. Taking Crestor 40 mg daily and Niacin ER 500 mg BID. Has lost weight since her last visit. Vit D - Taking Vit D3 50,000 international unit(s) once weekly. Pt also seen at [facility] ED on 04/08/23 for chest pain, which may have been related to reflux which pt felt she may have had. Also seen in ED on 03/21/23 for afib and had to be converted. Just changed Drug [facility] to [facility]. HM - Will be getting Covid vaccines through Pharmacy. Shingles/RSV through Pharmacy due to Medicareinsurance. Past medical history, appointments, medications, allergies reviewed. [...] elbow OOPHORECTOMY PARTIAL/TOTAL UNI/BI 10/19/2007 Ovarian cancer, [facility] PAST SURGICAL HISTORY OF 05/28/1973 first [...] Allergen Reactions Streptokinase Hives Poison Araceli Poison [place] Extract Itching Streptokinesis [Oth* hives Current Medications [...] by mouth daily before breakfast. 1/2 hr beforemeal. levothyroxine (LEVOXYL) 125 mcg tablet Take 1 [...] in no acute distress, well-hydrated, well nourished. andObese. Neck: Supple, no adenopathy; thyroid symmetric, normal size, no bruits. Lungs: Lungs clear to auscultation. No wheezing, rhonchi, rales.. Heart: RRR without murmur, gallop, or rubs. No ectopy. Health Maintenance List RSV Vaccine(1 - 1-dose 60+ series) Never done Shingrix Vaccine(2 of 3) due on 02/09/2012 Covid-19 Vaccine(2022- season) due on 01/26/2023 LDL Cholesterol due [...] Continue current medication regimen. 8. Atherosclerosis of 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 coronary artery of 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 angina pectoris - ICD9: 414.01, [...] Past Histories independently gathered by the clinical technician support association and the remaining scribed note accurately describes [...] PM. Deborah Carlisle Ma documented in this encounterUniversity Hospitals Health System11-12-2023 Discharge summary Author Marizol Frey [facility] April 08, 2023 11:51pm Note Date/Time April 08, 2023 9:31pm [facility] Medical Records Department [address] [place] [address] Emergency Department Summary 04/08/23 MR#: [id number] Acct: [id number] Name: SANDRINE RIVERS Rep #:[id number] : 1940 82 From: Marizol Frey MD PCP: Dr. Samantha Reyes MD Status:RE G ER Location: ED HPI History of Present Illness Chief Complaint: Chest Pain Informant: patient Onset/Context/Timing Onset: Today Narrative Narrative: Patient presents secondary to chest pain. She states she was puttering around the house today and had some intermittent chest pain but did not think much of it. About an hour and a half prior to arrival she got rather sharp significant pain in the lower sternal area. She states it started to ease up slightly but then worsened again. She asked her to get her nitro for her. After taking 1 sublingual nitro symptoms seem to improve. She did feel slightly shortof breath at the time. She has a history of pulmonary embolism and is on Eliquis. She denies missing any doses. She also has a history of coronary disease with prior bypass surgery and cardiac stent. Patient does note that shehas had increased gas and increased reflux today. [facility] Medical History (Updated 04/08/23 @ 23:[address] Marizol Frey MD) Anticoagulant long-term use Atherosclerotic heart disease of 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 coronary artery without angina pectoris Chest pain Dyspnea on exertion Essential hypertension Fatigue GERD (gastroesophageal reflux disease) History of acute myocardial infarction of anterolateral wall (02/2000) History of cardioversion History of DVT (deep vein thrombosis) Hypothyroid ivc filter retreval Left-sided pyelonephritis Other mcc (current) drug therapy Ovarian cancer Overactive bladder Paroxysmal atrial fibrillation Pericardial effusion Pulmonary emboli Pure hypercholesterolemia Small bowel obstruction Stress incontinence Wide-complex tachycardia Home Medications mirabegron 50 mg tablet,extended release 24 hr 50 mg PO DAILY 10/04/21 [History Last Taken Unknown] lansoprazole 30 mg capsule,delayed release 30 mg PO DAILY 02/03/22 [History Last Taken Unknown] aspirin 81 mg tablet,delayed release (Adult Low Dose Aspirin) 81 mg PO DAILY 08/11/22 [History Last Taken Unknown] niacin 500 mg tablet,extended release 24 hr 500 mg PO BID #180 tabs 01/19/23 [Rx Last Taken Unknown] cholecalciferol (vitamin D3) 1,250 mcg (50,000 unit) capsule 1,250 mcg PO PSPWFM59/07/23 [History Last Taken Unknown] levothyroxine 125 mcg tablet 125 mcg PO DAILY 02/01/23 [History Last Taken Unknown] oxybutynin chloride 10 mg tablet,extended release 24 hr 10 mg PO DAILY 02/01/23 [History Last Taken Unknown] sucralfate 1 gram tablet 1 g PO QACHS 02/01/23 [History Last Taken Unknown] apixaban 5 mg tablet (Eliquis) 5 mg PO BID #60 tabs 03/15/23 [Rx Last Taken Unknown] atenolol 50 mg tablet 50 mg PO BID Heart/BP #180 tabs 03/15/23 [Rx Last Taken Unknown] furosemide 40 mg tablet (Lasix) 40 mg PO DAILY PRN edema #90 tabs 03/15/23 [Rx Last Taken Unknown] hydrochlorothiazide 25 mg tablet 25 mg PO DAILY this is a dose increase #90 tabs10/19/23 [Rx Last Taken Unknown] nitroglycerin 0.4 mg sublingual tablet 0.4 mg sublingual Q5M PRN Chest Pain #25 tabs 03/15/23 [Rx Last Taken Unknown] potassium chloride 20 mEq tablet,extended release 20 meq PO DAILY #90 tabs 03/15/23 [Rx Last Taken Unknown] ramipril 10 mg capsule 10 mg PO DAILY Check with primary doctor #90 caps 03/15/23 [Rx Last Taken Unknown] rosuvastatin 40 mg tablet 40 mg PO QHS cholesterol #90 tabs 03/15/23 [Rx Last Taken Unknown] Allergy/AdvReac Type Severity Reaction Status Date / Time poison araceli extract Allergy Itching Verified 04/08/23 20:30 poison oak extract Allergy Itching Verified 04/08/23 20:30 streptokinase [Streptokinase] AdvReac Severe Hives Verified 04/08/23 20:30 Family History Brother Hypertension Cancer Mother CVA (cerebral vascular accident) Hypertension Surgical History H/O coronary artery bypass surgery (~02/2000) History of back surgery History of hysterectomy History of thyroidectomy Hx of appendectomy Stented coronary artery (10/18/07) Social History Smoking Status: Former smoker how long ago did patient quit smokin years ago alcohol intake: current alcohol intake frequency: holidays/special occasions only Alcohol type: wine substance use type: does not use caffeine: No what type of physical activity do you participate in: none seatbelt use: always ROS ROS ED Constitutional Constitutional ED: Denies chills or fever(s) Eyes Eyes: Denies change in vision or discharge from eye(s) ENT ENT ED: Denies discharge from eye(s), rhinorrhea or sore throat Cardiovascular Cardiovascular: Reports chest pain; Denies palpitations Respiratory/Chest Respiratory/Chest: Reports dyspnea; Denies cough Gastrointestinal Gastrointestinal: Denies abdominal pain, nausea or vomiting Genitourinary Genitourinary ED: Denies dysuria Musculoskeletal Musculoskeletal: Denies back pain or extremity pain Integumentary Denies Abrasions or rash Neurologic Neurologic: Denies headache(s) or weakness Psychiatric Psychiatric: Denies anxiety or depression Allergic/Immunologic Allergic/Immunologic ED: Denies lip swelling or urticaria EXAM Physical Exam Const Vital Signs: 04/08/23 20:29 04/08/23 20:47 04/08/23 21:52 Temperature 97.9 F Temperature Source Temporal Pulse Rate 59 L Respiratory Rate 16 Respiratory Effort Normal Non-Labored Blood Pressure 129/52 H Blood Pressure Mean 77 Pulse Ox 97 95 Oxygen Delivery Method Room Air Venturi Mask 04/08/23 21:52 Temperature Temperature Source Pulse Rate 52 L Respiratory Rate 17 Respiratory Effort Blood Pressure 121/57 H Blood Pressure Mean 78 Pulse Ox 95 Oxygen Delivery Method Room Air Positive well nourished and well developed General Appearance ED: well developed HEENT Reports moist mucous membranes Eyes EOMs intact bilaterally Chest Wall inspection of chest normal and palpation of chest normal Resp normal respiratory effort and clear to auscultation bilaterally Cardio regular rate and regular rhythm GI soft to palpation and non-tender Extremity normal to inspection Neuro oriented x3 and no sensory deficits noted Sensorium / Orientation: alert Motor Exam: strength 5/5 throughout Psych mental status grossly normal Skin no rashes or lesions noted MDM MDM MDM Narrative Medical decision making narrative: Patient placed on monitor and storage bin tender. IV line established. Patient did take 1 baby aspirin this morning. 3 additional baby aspirin given at this time. Labwork obtained to evaluate for leukocytosis, anemia, and electrolyte derangement. EKG obtained to evaluate for cardiac arrhythmia/ischemia. Chest x-ray obtained to evaluate for acute lung pathology, cardiac size, or mediastinal abnormality. History & Record Review Discussion w/independent historian: Patient and Significant other Additional record(s) reviewed:: Prior ED visit and Prior labs Lab Data Attestation: I reviewed the patient's lab results. Labs: Laboratory Results - last 24 hr 04/08/23 04/08/23 20:45 23:10 WBC 7.0 RBC 4.25 Hgb 11.9 L Hct 38.2 MCV 89.9 MCH 28.0 MCHC 31.2 L RDW Std Deviation 40.6 RDW Coeff of [place] 12.3 Plt Count 269 MPV 10.7 Immature Gran % (Auto) 0.300 Neut % (Auto) 48.9 Lymph % (Auto) 38.8 [place] % (Auto) 10.0 Eos % (Auto) 1.4 Baso % (Auto) 0.6 Absolute Neuts (auto) 3.4 Absolute Lymphs (auto) 2.72 Nucleated RBC % 0 Sodium 139 Potassium 3.5 Chloride 105 Carbon Dioxide 32.0 Anion Gap 2 L BUN 25 H Creatinine 1.19 H Estim Creat Clear Calc 31.47 Est GFR (MDRD) Af Amer 56 L Est GFR (MDRD) Non-Af 46 L BUN/Creatinine Ratio 21.0 H Glucose 100 Calcium 9.5 Troponin I High Sens 14 13 Radiography Chest X-Ray - ED: 1 View, Read by ED Physician and Chronic Changes Diagnostic Testing: Clinical Impression(s) from Imaging Studies Chest X-Ray 04/08/23 19:55 IMPRESSION: There are no acute findings. Electronically Signed: Vladimir Loza MD at 21:16 EST , EKG Initial EKG: Attestation: I personally reviewed and interpreted this EKG as follows: Interpretation: Sinus Bradycardia (Sinus bradycardia 59 bpm. Chronic changes noted, no acute change when compared to prior study March 21, 2023) Treatment and Re-Evaluation :: Patient has been comfortable with no recurrent chest pain here. CBC was normal white count at 7.0 with a hemoglobin 11.9. Chemistry studies unremarkable with a BUN of 25 and a creatinine 1.19. Initial troponin is 14 with a 2-hour repeat of 13. Portable chest x-ray per my interpretation was chronic changes with no acute findings. EKG reveals no ischemia with chronic changes. At this time patient will be discharged to home with close follow-up instructions. Return instructions given. Patient is comfortable with the plan. Discharge Plan Triage Chief Complaint: Chest Pain ED Provider: Marizol Frey Dx/Rx/DC Orders Clinical Impression: Chest pain Instructions: ED Chest Pain, Uncertain Cause Prescriptions: No Action Myrbetriq 50 mg tablet extended release 24 hr 50 mg PO DAILY Patient Comments: TAKE 1 TABLET BY MOUTH EVERY DAY aspirin [Adult Low Dose Aspirin] 81 mg tablet,delayed release (DR/EC) 81 mg PO DAILY oxybutynin chloride 10 mg tablet extended release 24hr 10 mg PO DAILY Patient Comments: TAKE 1 TABLET BY MOUTH EVERY DAY sucralfate 1 gram tablet 1 g PO QACHS Patient Comments: TAKE 1 TABLET BY MOUTH BEFORE MEALS AND AT BEDTIME cholecalciferol (vitamin D3) 1,250 mcg (50,000 unit) capsule 1,250 mcg PO QMONTH levothyroxine 125 mcg tablet 125 mcg PO DAILY Patient Comments: TAKE 1 TABLET BY MOUTH ONCE DAILY. TAKE ON EMPTY STOMACH. FOR THYROID. lansoprazole 30 mg capsule,delayed release(DR/EC) 30 mg PO DAILY Patient Comments: TAKE 1 CAPSULE BY MOUTH DAILY BEFORE BREAKFAST. 1/2 HR BEFORE MEAL. niacin 500 mg tablet extended release 24 hr 500 mg PO BID Qty: 180 3RF Eliquis 5 mg tablet 5 mg PO BID Qty: 60 11RF atenolol 50 mg tablet 50 mg PO BID Qty: 180 3RF furosemide [Lasix] 40 mg tablet 40 mg PO DAILY PRN (Reason: edema) Qty: 90 3RF hydrochlorothiazide 25 mg tablet 25 mg PO DAILY Qty: 90 3RF potassium chloride 20 mEq tablet extended release 20 meq PO DAILY Qty: 90 3RF ramipril 10 mg capsule 10 mg PO DAILY Qty: 90 3RF rosuvastatin 40 mg tablet 40 mg PO QHS Qty: 90 3RF nitroglycerin 0.4 mg tablet, sublingual 0.4 mg SUBLINGUAL Q5M PRN (Reason: Chest Pain) Qty: 25 3RF Primary Care Provider: Samantha Reyes Referrals: Samantha Reyes MD [Primary Care Provider] - 1-2 Weeks Disposition Disposition: Home, Self Care What to do if you have Problems For any increased pain, shortness of breath, bleeding, nausea or vomiting, chestpain, or any unexpected problems, contact your Primary Care Provider. Call [facility] ([phone]) or report to the closest Emergency Room. Call 911 if necessary. 04/08/23 [id number] <Electronically signed by Marizol Frey MD> Cosigner Signature (if applicable): CC: Dr. Samantha Reyes MD ~ Signed [facility] Work Phone: [phone] 684-517210-25-2023 Discharge summary Author Patrick Schneider [facility] March 21, 2023 2:01pm Note Date/Time March 21, 2023 9 :56am [facility] [address] [place] [address] Emergency Department Summary 03/21/23 MR#: [id number] Acct: [id number] Name: SANDRINE RIVERS Rep #:[id number] : 1940 82 From: Patrick Schneider MD PCP: Dr. Samantha Reyes MD Status:RE G ER Location: ED HPI History of Present Illness Chief Complaint: Shortness of Breath Informant: patient and family Narrative Narrative: Patient presents with concern for being in atrial fibrillation again. Patient has a long history of intermittent A-fib. She has been cardioverted many times. But she states it never takes. She is on Eliquis. She is takingit as prescribed. She is also on atenolol for rate control. She states the last couple days she has noticed that she has decreased energy especially with activity. She gets a little short of breath with exertion. But sitting still she feels fine. She does not feel palpitations or chest pain or pressure. No fevers or chills. No coughing. She does not feel sick at all but she does havedyspnea on exertion which is her typical symptom of atrial fibrillation [facility] Medical History (Updated 03/21/23 @ 14:[address] 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 Ovarian cancer Overactive bladder Paroxysmal atrial fibrillation Pericardial effusion Pulmonary emboli Pure hypercholesterolemia Small bowel obstruction Stress incontinence Wide-complex tachycardia Home Medications mirabegron 50 mg tablet,extended release 24 hr 50 mg PO DAILY 10/04/21 [History Last Taken Unknown] lansoprazole 30 mg capsule,delayed release 30 mg PO DAILY 02/03/22 [History Last Taken Unknown] aspirin 81 mg tablet,delayed release (Adult Low Dose Aspirin) 81 mg PO DAILY 08/11/22 [History Last Taken Unknown] niacin 500 mg tablet,extended release 24 hr 500 mg PO BID #180 tabs 01/19/23 [Rx Last Taken Unknown] cholecalciferol (vitamin D3) 1,250 mcg (50,000 unit) capsule 1,250 mcg PO BLGRXM29/07/23 [History Last Taken Unknown] levothyroxine 125 mcg tablet 125 mcg PO DAILY 02/01/23 [History Last Taken Unknown] oxybutynin chloride 10 mg tablet,extended release 24 hr 10 mg PO DAILY 02/01/23 [History Last Taken Unknown] sucralfate 1 gram tablet 1 g PO QACHS 02/01/23 [History Last Taken Unknown] apixaban 5 mg tablet (Eliquis) 5 mg PO BID #60 tabs 03/15/23 [Rx Last Taken Unknown] atenolol 50 mg tablet 50 mg PO BID Heart/BP #180 tabs 03/15/23 [Rx Last Taken Unknown] furosemide 40 mg tablet (Lasix) 40 mg PO DAILY PRN edema #90 tabs 03/15/23 [Rx Last Taken Unknown] hydrochlorothiazide 25 mg tablet 25 mg PO DAILY this is a dose increase #90 tabs1 [Rx Last Taken Unknown] nitroglycerin 0.4 mg sublingual tablet 0.4 mg sublingual Q5M PRN Chest Pain #25 tabs 03/15/23 [Rx Last Taken Unknown] potassium chloride 20 mEq tablet,extended release 20 meq PO DAILY #90 tabs 03/15/23 [Rx Last Taken Unknown] ramipril 10 mg capsule 10 mg PO DAILY Check with primary doctor #90 caps 03/15/23 [Rx Last Taken Unknown] rosuvastatin 40 mg tablet 40 mg PO QHS cholesterol #90 tabs 03/15/23 [Rx Last Taken Unknown] Allergy/AdvReac Type Severity Reaction Status Date / Time poison araceli extract Allergy Itching Verified 03/21/23 09:28 poison oak extract Allergy Itching Verified 03/21/23 09:28 streptokinase [Streptokinase] AdvReac Severe Hives Verified 03/21/23 09:28 Family History Brother Hypertension Cancer Mother CVA (cerebral vascular accident) Hypertension Surgical History H/O coronary artery bypass surgery (~02/2000) History of back surgery History of hysterectomy History of thyroidectomy Hx of appendectomy Stented coronary artery (10/18/07) Social History Smoking Status: Former smoker how long ago did patient quit smokin years ago alcohol intake: current alcohol intake frequency: holidays/special occasions only Alcohol type: wine substance use type: does not use caffeine: No what type of physical activity do you participate in: none seatbelt use: always ROS ROS ED ROS Narrative A complete review of systems was performed and is negative except as documented in the history of present illness. Some specific details below. Constitutional: No recent fevers or chills. Malaise. EYE: No discharge, visual complaints, or pain. ENT: No difficulty swallowing. No swelling. No pain. No reflux symptoms. CV: 3 of atrial fibrillation. But she has no chest pain. She does not actually have palpitations Respiratory: See history of present illness. Coughing. At rest she feels fine. GI: No abdominal pain. No nausea vomiting diarrhea. No blood in stool. : No frequency dysuria or hematuria. Musculoskeletal: No recent trauma. No pains. No swelling. Skin: No rash. Nondiaphoretic. Neuro: No focal weakness or numbness. Endocrine: No polyuria or polydipsia. EXAM Physical Exam Narrative Exam Narrative: CONSTITUTIONAL: Patient is nontoxic in appearance. The patient looks comfortable. Work of breathing looks normal. HEENT: No notable trauma. Mucous membranes moist. EYES: No conjunctival injection. No proptosis. No pallor NECK:No JVD. No stridor. CARDIOVASCULAR: Regular rate. Irregularly irregular rhythm. No notable murmur. No JVD. The monitor, she appears to be in atrial fibrillation with an overall rate at about 75?80. No ventricular ectopy is noted. RESPIRATORY: No respiratory distress. Breathing is unlabored. No wheezes. No rhonchi. No rales. No pain with a deep breath. No chest wall tenderness. Overall, her lungs sound very clear and normal. Saturations are normal at 99% on room air showing no hypoxia GASTROINTESTINAL: Not distended. Bowel sounds are normal. No tenderness. No guarding. No rebound. No palpable mass. No bruit is heard. GENITOURINARY: No tenderness over the bladder. No CVA tenderness. MUSCULOSKELETAL: Atraumatic. No peripheral edema. NEUROLOGICAL: Patient is alert and appropriate. No focal deficit noted. SKIN: No noted rashes. No diaphoresis. PSYCHIATRIC: Patient is calm. Mood is appropriate. Const Vital Signs: 03/21/23 09:26 03/21/23 09:38 03/21/23 09:38 Temperature 97.0 F L Temperature Source Temporal Pulse Rate 77 75 Pulse Rate [1 (Initial Baseline)] Pulse Rate [2] Respiratory Rate 18 20 H Respiratory Rate [1 (Initial Baseline)] Respiratory Rate [2] Respiratory Effort Short of Breath Labored Respiratory Depth Normal Respiratory Pattern Normal Blood Pressure 110/71 Blood Pressure [1 (Initial Baseline)] Blood Pressure [2] Blood Pressure Mean 84 Pulse Ox 99 95 Oxygen Delivery Method Room Air Room Air Room Air Oxygen Delivery Method [1 (Initial Baseline)] Oxygen Delivery Method [2] Oxygen Flow Rate (L/min) [2] 03/21/23 09:56 03/21/23 13:19 03/21/23 13:19 Temperature Temperature Source Pulse Rate 73 Pulse Rate [1 (Initial Baseline)] 73 Pulse Rate [2] 64 Respiratory Rate 22 H Respiratory Rate [1 (Initial Baseline)] 19 H Respiratory Rate [2] 20 H Respiratory Effort Respiratory Depth Respiratory Pattern Blood Pressure 123/70 H Blood Pressure [1 (Initial Baseline)] 117/88 H Blood Pressure [2] 120/65 Blood Pressure Mean Pulse Ox 95 98 Oxygen Delivery Method Room Air Nasal Cannula Oxygen Delivery Method [1 (Initial Baseline)] Nasal Cannula Oxygen Delivery Method [2] Nasal Cannula Oxygen Flow Rate (L/min) [2] 3 03/21/23 10:26 03/21/23 11:26 03/21/23 12:26 Temperature Temperature Source Pulse Rate 72 64 Pulse Rate [1 (Initial Baseline)] Pulse Rate [2] Respiratory Rate 18 Respiratory Rate [1 (Initial Baseline)] Respiratory Rate [2] Respiratory Effort Respiratory Depth Respiratory Pattern Blood Pressure Blood Pressure [1 (Initial Baseline)] Blood Pressure [2] Blood Pressure Mean Pulse Ox Oxygen Delivery Method Oxygen Delivery Method [1 (Initial Baseline)] Oxygen Delivery Method [2] Oxygen Flow Rate (L/min) [2] 03/21/23 13:26 03/21/23 13:35 03/21/23 13:40 Temperature Temperature Source Pulse Rate Pulse Rate [1 (Initial Baseline)] Pulse Rate [2] Respiratory Rate Respiratory Rate [1 (Initial Baseline)] Respiratory Rate [2] Respiratory Effort Respiratory Depth Respiratory Pattern Blood Pressure 120/65 Blood Pressure [1 (Initial Baseline)] Blood Pressure [2] Blood Pressure Mean 83 Pulse Ox Oxygen Delivery Method Room Air Room Air Oxygen Delivery Method [1 (Initial Baseline)] Oxygen Delivery Method [2] Oxygen Flow Rate (L/min) [2] MDM MDM MDM Narrative Medical decision making narrative: My independent interpretation of the patient's single view AP chest x-ray shows prior surgery but no acute process. Final reading is no acute cardiopulmonary process identified. Patient CBC is overall normal. Patient's electrolytes show some mildly low potassium at 3.4. BUN and creatinine are slightly up but not markedly above her baseline. She is given some IV fluids here. Her BUN to creatinine ratio was higher than normal consistent with some dehydration. His troponin is normal at 14. Patient is still in atrial fibrillation. She states she has been shocked multiple times. We discussed this as an option. She is not tachycardic but she is very symptomatic with her atrial fibrillation. She is on Eliquis and has been taking it regularly twice a day for over a year. We discussed risk benefits and options and proceeded to agree with the cardioversion as a plan. Last meal was last night. She has not ate or even drank coffee today. No history of allergies or complications with anesthesia or cardioversion. She has a Mallampati of 1?2. She does have dentures. See procedure note regarding cardioversion and procedural sedation. I discussed the case with Dr. Naik. He will follow-up with the patient. Lab Data Attestation: I reviewed the patient's lab results. Labs: Laboratory Results - last 24 hr 03/21/23 09:40 WBC 7.5 RBC 4.46 Hgb 12.3 Hct 39.2 MCV 87.9 MCH 27.6 MCHC 31.4 L RDW Std Deviation 40.0 RDW Coeff of Burke 12.5 Plt Count 269 MPV 11.0 Immature Gran % (Auto) 0.300 Neut % (Auto) 47.0 Lymph % (Auto) 42.2 H [place] % (Auto) 9.0 Eos % (Auto) 1.1 Baso % (Auto) 0.4 Absolute Neuts (auto) 3.5 Absolute Lymphs (auto) 3.16 Nucleated RBC % 0 Sodium 141 Potassium 3.4 L Chloride 107 Carbon Dioxide 26.0 Anion Gap 8 BUN 46 H Creatinine 1.44 H Estim Creat Clear Calc 26.01 Est GFR (MDRD) Af Amer 45 L Est GFR (MDRD) Non-Af 37 L BUN/Creatinine Ratio 31.9 H Glucose 115 H Calcium 10.2 H Troponin I High Sens 14 Radiography Diagnostic Testing: Clinical Impression(s) from Imaging Studies Chest X-Ray 03/21/23 09:47 IMPRESSION: No acute cardiopulmonary process identified. Electronically Signed: Shell Rodriguez MD at 10:29 EDT , EKG Initial EKG: Comments: My independent interpretation of the patient's EKG shows atrial fibrillation with controlled rate at 69. No ventricular ectopy. QRS duration and QTc are normal. Procedures Procedural Sedation 1 (Initial Baseline): Consent Signed: Yes Any Problems With Anesthesia: No You/Your family experience fever (hyperthermia) w/anesthesia: No Sedation medication: Propofol Dose: 50 Route: IV (50 mg propofol total IV.) Total Moderate Sedation Units: 7 Maliampati Score: Class II ASA Classification: II Comment:: Patient was sedated with 50 of Diprivan. We discussed risk benefits options. and daughter stayed in the room. She was cardioverted on synchronized cardioversion with 200 J a single time. She went back into normal sinus rhythm. She tolerated the procedure well. I stayed in the room until she was awake. Discharge Plan Triage Chief Complaint: Shortness of Breath ED Provider: Patrick Schneider Dx/Rx/DC Orders Clinical Impression: Dyspnea on exertion, Atrial fibrillation, Elevated serum creatinine, Dehydration, Encounter for cardioversion procedure Instructions: ED AFIB, ED Cardioversion, Electrical Prescriptions: No Action Myrbetriq 50 mg tablet extended release 24 hr 50 mg PO DAILY Patient Comments: TAKE 1 TABLET BY MOUTH EVERY DAY aspirin [Adult Low Dose Aspirin] 81 mg tablet,delayed release (DR/EC) 81 mg PO DAILY oxybutynin chloride 10 mg tablet extended release 24hr 10 mg PO DAILY Patient Comments: TAKE 1 TABLET BY MOUTH EVERY DAY sucralfate 1 gram tablet 1 g PO QACHS Patient Comments: TAKE 1 TABLET BY MOUTH BEFORE MEALS AND AT BEDTIME cholecalciferol (vitamin D3) 1,250 mcg (50,000 unit) capsule 1,250 mcg PO QMONTH levothyroxine 125 mcg tablet 125 mcg PO DAILY Patient Comments: TAKE 1 TABLET BY MOUTH ONCE DAILY. TAKE ON EMPTY STOMACH. FOR THYROID. lansoprazole 30 mg capsule,delayed release(DR/EC) 30 mg PO DAILY Patient Comments: TAKE 1 CAPSULE BY MOUTH DAILY BEFORE BREAKFAST. 1/2 HR BEFORE MEAL. niacin 500 mg tablet extended release 24 hr 500 mg PO BID Qty: 180 3RF Eliquis 5 mg tablet 5 mg PO BID Qty: 60 11RF atenolol 50 mg tablet 50 mg PO BID Qty: 180 3RF furosemide [Lasix] 40 mg tablet 40 mg PO DAILY PRN (Reason: edema) Qty: 90 3RF hydrochlorothiazide 25 mg tablet 25 mg PO DAILY Qty: 90 3RF potassium chloride 20 mEq tablet extended release 20 meq PO DAILY Qty: 90 3RF ramipril 10 mg capsule 10 mg PO DAILY Qty: 90 3RF rosuvastatin 40 mg tablet 40 mg PO QHS Qty: 90 3RF nitroglycerin 0.4 mg tablet, sublingual 0.4 mg SUBLINGUAL Q5M PRN (Reason: Chest Pain) Qty: 25 3RF Primary Care Provider: Samantha Reyes Referrals: Gorge Naik MD [Med Staff - Active Staff] - 3-5 Days Samantha Reyes MD [Primary Care Provider] - Disposition Disposition: Home, Self Care What to do if you have Problems For any increased pain, shortness of breath, bleeding, nausea or vomiting, chestpain, or any unexpected problems, contact your Primary Care Provider. Call [facility] ([phone]) or report to the closest Emergency Room. Call 911 if necessary. 03/21/23 1401 <Electronically signed by Patrick Schneider MD> Cosigner Signature (if applicable): CC: Dr. Samantha Reyes MD ~ Signed [facility] Work Phone: [phone] 360-388610-19-2023 Miscellaneous Notes* Telephone Encounter - Sharath Donohue LPN - 03/15/2023 8:47 AM EDT Spoke with pt and information listed below given. Pt verbalizes understanding. Sharath Donohue LPN * Telephone Encounter - Samantha Reyes MD - 03/15/2023 8:46 AM EDT OK to refill as ordered Samantha Reyes MD * Telephone Encounter - Sandrine Vincent RN - 03/14/2023 1:16 PM EDT Patient has been identified by name and [...] time a week. Patient requests scripts to [facility], [facility]. Date of last office visit [...] you. Sandrine Vincent RN. documented in this encounterUniversity Hospitals Health System09-20-2023 Miscellaneous Notes* Telephone Encounter - Dulce Maria Hart APRN.CNP - 02/14/2023 8:46 AM EDT Reach out and speak with patient. She states she feels 110 percent better. Patient encouraged to follow up with PCP if sx return. * Telephone Encounter - Dulce Maria Hart APRN.CNP - 02/13/2023 6:45 PM EDT Urine culture reveals bacterial growth. Initial sensitivity does not make notion related to macrobid. A request was made, and returned same result. Please call patient and inquire as to whether her sx are improving. Ensure she has follow up with Dr. Reyes or one of cohorts. documented in this encounterUniversity Hospitals Health System09-15-2023 History of Present illness Narrative* Derick Atkins MD - 02/09/2023 9:06 AM EDT Patient presents with: Urinary Frequency: burning with [...] 1 capsule by mouth once daily. (Patient takingdifferently: Take 25 mg by mouth once daily.) rosuvastatin (CRESTOR) 40 mg tablet Take 1 tablet by mouth once daily. ramipril (ALTACE) 10 mg capsule Take two (2) by mouth once daily. sucralfate (CARAFATE) 1 gram tablet Take 1 tablet by mouth before meals and at bedtime. lansoprazole (PREVACID) 30 mg capsule Take 1 capsule by mouth daily before breakfast. 1/2 hr beforemeal. niacin ER (NIASPAN) 500 mg tablet Take [...] Allergen Reactions Streptokinase Hives Poison Araceli Poison [place] Extract Itching Streptokinesis [Oth* hives VITALS: BP 132/78 Pulse 86 Temp 36.1 C (96.9 F) Resp 16 Wt 91.2 kg (201 lb) LMP 05/28/1990 PbO946% BMI 34.50 kg/m PHYSICAL EXAM: GEN: NAD [...] CAP Derick Atkins MD documented in this encounterUniversity Hospitals Health System09-01-2023 Miscellaneous Notes* Telephone Encounter - Charles Chavez APRN.COMMUNICATION [employer]NALS INTELLIGENCE - 01/26/2023 1:46 PM EDT The following approved medication requests have been transmitted electronically. Requested Prescriptions Pending Prescriptions Disp Refills levothyroxine (LEVOXYL) 125 mcg tablet 30 tablet 11 Sig: Take 1 tablet by mouth once daily. Take on empty stomach. For thyroid. Charles Chavez APRN.CNP * Telephone Encounter - Hitesh Anita - 01/26/2023 1:32 PM EDT Patient has been identified by name and [...] For thyroid. Please review and advise. Anita Hitesh documented in this encounterUniversity Hospitals Health System07-10-2023 Miscellaneous Notes* Telephone Encounter - Yee Montalvo MA - 12/04/2022 2:41 PM EDT Order & face sheet printed & faxed to Dr. Parks's office. Patient notified. Yee Montalvo MA * Telephone Encounter - Charles Chavez APRN.CNP - 12/04/2022 2:01 PM EDT Please let the patient know that I have placed a referral. She will need to call to schedule appointment. Charles Chavez APRN.CNP * Telephone Encounter - Ruby Morris RN - 12/04/2022 1:21 PM EDT Patient calls and states that she had previously seen a urologist that has moved up to [place]. Patient states that she does not want to travel that far. Patient asking if provider can write a urology referral. Patient would like referral to be sent to Dr. Parks's office. Please review and advise, Ruby Morrsi RN documented in this encounterUniversity Hospitals Health System04-28-2023 Miscellaneous Notes* Telephone Encounter - Lani Goff - 09/22/2022 1:12 PM EDT Patient had appt with La Nena Toscano on 08/21/2022. Thank you. Lani Goff * Telephone Encounter - La Nena Toscano APRN.CNP - 02/08/2022 1:19 PM EDT Calculated Creatinine Clearance, 47 mL/min. Will need follow up appointment in next 6 months. La Nena Toscano APRN.CNP * Telephone Encounter - Lani Goff - 02/08/2022 1:00 PM EDT Requested Prescriptions Pending Prescriptions Disp Refills mirabegron (MYRBETRIQ) 50 mg Tb24 30 tablet 5 Sig: Take 1 tablet by mouth once daily. Patient was calling wanting the above medication refilled at [facility] in [place]. Please advise. Thank you. Lani Goff documented in this encounterUniversity Hospitals Health System04-01-2023 History of Present illness Narrative* Kyree Mckinnon MD - 08/26/2022 10:02 AM EDT Chief Complaint Patient presents with: Covid Positive [...] licensure. The patient's identity and physical location wereverified at the time of this visit. Either the patient or their legal it sales representative has been informed of the risks and benefits of -- and alternatives to -- treatment through a remote evaluation andconsents to proceed with the evaluation remotely. OLY Rivers is a 82 year old female who presents here today for Above Complaints. Patient has been fully vaccinated for COVID. Considered high risk based on age, heart disease, HTN. Patient evaluated in [facility] yesterday for 3 days of cough, sore throat, congestion, chills, rhinorrhea.Tested positive for COVID and was discharged home [...] bypass status Pulmonary embolism (HCC) hx in -1999 Snoring Symptomatic menopausal or female climacteric states [...] elbow OOPHORECTOMY PARTIAL/TOTAL UNI/BI 10/19/2007 Ovarian cancer, [facility] PAST SURGICAL HISTORY OF 05/28/1973 first [...] Allergen Reactions Streptokinase Hives Poison Araceli Poison [place] Extract Itching Streptokinesis [Oth* hives Current Medications [...] 1 capsule by mouth once daily. (Patient takingdifferently: Take 25 mg by mouth once daily.) [...] by mouth daily before breakfast. 1/2 hr beforemeal. niacin ER (NIASPAN) 500 mg tablet Take [...] appropriate examination, counseling and educating the patient/family/caregiver, andordering medications, tests, or procedures. Kyree Mckinnon MD documented in this encounterUniversity Hospitals Health System03-31-2023 History of Present illness Narrative* Davina Flowers PA-C - 08/25/2022 10:05 AM EDT This note was created using [employer]. Subjective Sandrine Rivers is a 82 year [...] She has tried some Carranza's cough drops [id number]. Review of Systems Constitutional: Positive for chills. [...] 1 capsule by mouth once daily. (Patient takingdifferently: Take 25 mg by mouth once daily.) [...] by mouth daily before breakfast. 1/2 hr beforemeal. 30 capsule 11 niacin ER (NIASPAN) 500 [...] elbow OOPHORECTOMY PARTIAL/TOTAL UNI/BI 10/19/2007 Ovarian cancer, [facility] PAST SURGICAL HISTORY OF 05/28/1973 first [...] ROUTINE - XR CHEST 2V FRONTAL/LAT Davina Flowers PA-C documented in this encounterUniversity Hospitals Health System03-31-2023 History of Present illness Narrative* Steph Escalera RT(R) - 08/25/2022 9:50 AM EDT Radiology Service Progress Note PATIENT NAME: Sandrine Rivers DATE OF SERVICE: August 25, 2022 TIME: 9:50 AM PATIENT IDENTITY VERIFICATION COMPLETED USING TWO (2) IDENTIFIERS: Name and Date of confirmedby patient verbally. FALL SCREENING: Has the patient [...] RT Barron(R) August 25, 2022 9:50 AM documented in this encounterUniversity Hospitals Health System03-27-2023 History of Present illness Narrative* La Nena Toscano APRN.COMMUNICATION SIGNALS INTELLIGENCE - 08/21/2022 2:00 PM EDT Female Pelvic Medicine & Reconstructive Surgery Follow-Up [...] to go less frequently. States she can golonger between voids at the end of the day. Has rare episodes of urinary leakage, especially if shewaits to use restroom. Is up about 2 [...] no Pain: no Abnormal Vaginal Discharge: no HUMAN RESOURCES OFFICE ASSISTANT HISTORY: Last pap: Date:unknown, s/p hysterectomy for ovarian cancer; Last mammogram: Her last mammogram was 2021. She has no history of an abnormal mammogram LMP: Patient's last menstrual period was 05/28/1990.; Menopause yes: Menstrual history: Menarche: 13; Deliveries: I have confirmed and edited as necessary, the PFSH obtained by others. La Nena Toscano APRN.COMMUNICATION [employer]NALS INTELLIGENCE [place] offered: Patient declines. 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 * Telephone Encounter - La Nena Toscano APRN.CNP - 08/14/2022 9:42 AM EDT Chart reviewed. Labs obtained on 08/11/2022. CrCl calculated to be 55 mL/min. In need of LFTs. Order placed. La Nena Toscano APRN.CNP * Telephone Encounter - Karey Elias RN - 08/14/2022 8:30 AM EDT Last encounter, Myrbetriq refill 02/08/22: Calculated Creatinine Clearance, 47 mL/min. Will need follow up appointment in next 6 months. La Nena Toscano APRN.CNP No appts scheduled. Phone call placed to patient- advised of need for f/u appt prior to refill. Patient accepts appointment on 08/21 at 2:00. Message routed to [employer] to schedule. Message routed to La Nena Toscano CNP to advise if labs needed prior to visit. * Telephone Encounter - Nalini Ernandez - 08/11/2022 3:55 PM EDT Patient phones requesting refills as follows: Requested Prescriptions Pending Prescriptions Disp Refills mirabegron (MYRBETRIQ) 50 mg Tb24 30 tablet 5 Sig: Take 1 tablet by mouth once daily. Please review and advise. Nalini Ernandez documented in this encounterUniversity Hospitals Health System12-15-2022 Miscellaneous Notes* Telephone Encounter - Charles Chavez APRN.CNP - 05/11/2022 10:19 AM EST The following approved medication requests have been transmitted electronically. Requested Prescriptions Pending Prescriptions Disp Refills potassium chloride 20 mEq TbER 90 tablet 4 Sig: Take 1 tablet by mouth once daily. Charels Chavez APRN.CNP * Telephone Encounter - ADALBERTO Lang - 05/11/2022 10:11 AM EST DEANN 04/04/22 Appointment scheduled 10/05/22 Please advise. Thank you. ADALBERTO Lang * Telephone Encounter - Faby Nicole - 05/11/2022 10:08 AM ESTSummary: Refill Patient has been identified by name [...] and advise. Faby Nicole documented in this encounterUniversity Hospitals Health System11-01-2022 Miscellaneous Notes* Telephone Encounter - Deborah Cralisle Ma - 03/28/2022 3:37 PM EDT Pt called and notified of message below. Pt states that Dr. Waite gave her the exact instructions and advised her to have rechecked in 1 week. She plans on getting this done at [facility]. Asked pt who's managing her INR and she's uncertain who is. Dr. Waite is carefully watching herso she can be cardioverted. Notified pt that [...] CARDIO MANAGING INR PRESENTLY. Deborah Carlisle Ma * Telephone Encounter - Samantha Reyes MD - 03/28/2022 3:22 PM EDT INR low at 1.8 Go to 5 mg //Sunday and 2.5 mg all other days Recheck in 1 week Samantha Reyes MD * Telephone Encounter - Deborah Carlisle Ma - 03/28/2022 12:42 PM EDT Last INR: INR (POCT) 1.8 03/28/2022 Current dose of coumadin is: 5 mg /Sunday and 2.5 mg all other days. Last date of dose change: 02/03/22. Previous INR (date and result): 2.6 on 03/07/22 Additional Clinical Information or narrative: yes: pt had recent cardioversion procedure. This INR test was ordered by Dr. Waite. Deborah Carlisle Ma documented in this encounterUniversity Hospitals Health System10-14-2022 Miscellaneous Notes* Telephone Encounter - Faby Pastrana - 03/10/2022 9:06 AM EDT Patient has been identified by name and [...] Not applicable Please advise. Thank you. Faby Pasrtana documented in this encounterUniversity Hospitals Health System10-12-2022 Miscellaneous Notes* Telephone Encounter - Yee Montalvo MA - 03/08/2022 7:02 AM EDT The following approved medication requests have been transmitted electronically. Requested Prescriptions Signed Prescriptions Disp Refills warfarin (COUMADIN) 5 mg tablet 30 tablet 11 Si mg Mon, Wed, Fri, Sat, 2.5 mg all other days or as directed Authorizing Provider: SAMANTHA REYES MA * Telephone Encounter - Samantha Reyes MD - 03/07/2022 6:10 PM EDT OK to refill as ordered Samantha Reyes MD * Telephone Encounter - eKra Glover RN - 03/03/2022 11:51 AM EDT [facility] reports patient is out of coumadin and needs refill, but pcp office tells them they sentan rx for a years supply. Noted on chart, the only coumadin listed, appears as historical med and was not sent. Re-pended. documented in this encounterUniversity Hospitals Health System10-11-2022 History of Present illness Narrative* Shila Weiss RN - 03/07/2022 11:31 AM EDT patient had inr completed at [facility] patients inr is 2.6 (patients inr range [...] up inr on 03/14/22 documented in this encounterUniversity Hospitals Health System10-04-2022 History of Present illness Narrative* Shila Weiss RN - 02/28/2022 2:22 PM EDT patient had inr completed at [facility] patients inr is 3.0 (patients inr range [...] schedule patient for cardioversion documented in this encounterUniversity Hospitals Health System09-29-2022 Miscellaneous Notes* Telephone Encounter - Shannon Leung LPN - 02/23/2022 2:00 PM EDT Patient is feeling better and I told her if symptoms get worse to follow up with her PCP.Shannon Leung LPN * Telephone Encounter - Sylwia Mcleod APRN.CNP - 02/23/2022 1:55 PM EDT Patient is on the correct antibiotic according to culture please make sure symptoms are getting better if not patient needs to follow-up thank you documented in this encounterUniversity Hospitals Health System09-28-2022 History of Present illness Narrative* Samantha Reyes MD - 02/22/2022 2:11 PM EDT I agree with the advice given; stay same and recheck in 1 week Samantha Reyes MD * Shila Weiss RN - 02/21/2022 1:22 PM EDT patient had inr completed at [facility] patients inr is 2.5 (patients inr range [...] up inr on 02/28/22 documented in this encounterUniversity Hospitals Health System09-27-2022 Instructions* Patient Instructions* Avtar Mccartney APRN.MIKA - 02/21/2022 12:27 PM EDT URINARY TRACT [...] Take exactly as directed. Be sure to takeall the medication prescribed, even if your symptoms disappear. If you stop treatment early, the infection may not be fully treated and the symptoms could come back again. 2. Get plenty of rest. You may take acetaminophen for fever and aches. 3. Drink 6 to 8 glasses of fluids, especially water, every day. This helps wash out germs from yoururinary tract. Cranberry juice or other sources of [...] medication or fluids down. documented in this encounterUniversity Hospitals Health System09-27-2022 History of Present illness Narrative* Avtar Mccartney APRN.CNP - 02/21/2022 12:25 PM EDT Subjective HPI A nontoxic appearing female presents to urgent care with chief complaint of possible UTI. Duration of symptoms 1 day. Associated symptoms dysuria, frequency, and urgency. Patient has history of UTIs in past with similar signs and symptoms. Positive urine cultures were E. coli and Enterococcus faecalis. patient denies the use of any [id number] medications or home remedies for symptom management. [...] elbow OOPHORECTOMY PARTIAL/TOTAL UNI/BI 10/19/2007 Ovarian cancer, [facility] PAST SURGICAL HISTORY OF 05/28/1973 first [...] Dr Shea ALLERGIES Streptokinase, Poison Araceli, Poison [place] Extract, and Streptokinesis [Other] MEDICATIONS levothyroxine (LEVOXYL) [...] by mouth daily before breakfast. 1/2 hr beforemeal. niacin ER (NIASPAN) 500 mg tablet Take [...] Wt 95.7 kg (211 lb) LMP 05/28/1990 [id number]% BMI 36.22 kg/m Review of Systems Constitutional: [...] care was discussed with patient. Patient verbalizes understa nding and agrees to plan of care. This note was generated using [employer] software. It may contain errors in wording, punctuation, or spelling. Avtar Mccartney APRN.MIKA documented in this encounterUniversity Hospitals Health System09-20-2022 History of Present illness Narrative* Samantha Reyes MD - 02/14/2022 3:22 PM EDT Noted I agree with the advice given Samantha Reyes MD * Shila Weiss RN - 02/14/2022 2:10 PM EDT patient had inr completed at [facility] patients inr is 2.6 (patients inr range [...] a 1 week follow up inr on 02/21/22 documented in this encounterUniversity Hospitals Health System09-20-2022 Miscellaneous Notes* Telephone Encounter - Asha Moore Ma - 02/14/2022 10:03 AM EDT Patient notified of new dosage instructions with understanding. She will keep her upcoming appointment. Asha Moore Ma * Telephone Encounter - Samantha Reyes MD - 02/13/2022 6:08 PM EDT Her TSH is low at 0.17, which indicates that her dose of thyroid medicine is too high. I would liketo change her to levothyroxine 125 mcg daily; order done. She has appt on 04/04, so we can discuss it further at that time Samantha Reyes MD * Telephone Encounter - Sandrine Vincent RN - 02/09/2022 3:41 PM EDT Patient calling to request PCP review lab results done @ [facility] on 02/09. Results in Epic. Dr. Waite's office told her that her TSH was off and she needs to talk to her PCP about this. Sandrine Vincent RN documented in this encounterUniversity Hospitals Health System09-09-2022 Miscellaneous Notes* Telephone Encounter - Laurie Hills LPN - 02/03/2022 5:10 PM EDT Pt. informed. Laurie Hills LPN * Telephone Encounter - Gabe Matthews DO - 02/03/2022 5:02 PM EDT Increase dose of coumadin to 5 mg on , Sunday and 2.5 mg other days of the week, recheck INR 1week Gabe Matthews DO * Telephone Encounter - Julia Patel Ma - 02/03/2022 9:45 AM EDT Last INR: INR (POCT) 1.7 02/03/2022 Current dose of coumadin is: 5 mg Thurs, 2.5 mg all other days. Last date of dose change: 01/02/22. Previous INR (date and result): 02/01/22 INR: 1.7 Additional Clinical Information or narrative: no documented in this encounterUniversity Hospitals Health System09-08-2022 Miscellaneous Notes* Addendum Note - Avtar Garcia MD - 02/02/2022 4:12 PM EDTAddended by: AVTAR GARCIA on: 02/02/2022 04:12 PM Modules accepted: Orders documented in this encounterUniversity Hospitals Health System09-08-2022 History of Present illness Narrative* Josefina Mcleod MA - 02/02/2022 3:42 PM EDT Contacted patient and advise to come to lab to have blood drawn for INR. She voiced understanding. Josefina Mcleod MA * Josefina Mcleod MA - 02/01/2022 5:20 PM EDT Patient notified and voiced understanding. Tried to scheduled with coumadin nurse for Sunday would not allow. Was going to check with nurse. Coumadin nurse is out. Patient will need to come to the lab. Will need order. I will advise patient to come early so that we can get results back earlier in the day. Josefina Mcleod MA * Avtar Garcia MD - 02/01/2022 4:59 PM EDT Let patient know Macrobid can cause her INR ti increase. I do not want to change her dosing at thistime. However I want her to get a repeat INR this Sunday. * Shila Weiss RN - 02/01/2022 12:29 PM EDT patient had inr completed at [facility] patients inr is 1.7 (patients inr range [...] up inr on 02/14/22 documented in this encounterUniversity Hospitals Health System09-07-2022 History of Present illness Narrative* Derick Atkins MD - 02/01/2022 11:24 AM EDT Patient presents with: Urinary Frequency: burning with [...] bypass status Pulmonary embolism (HCC) hx in -1999 Snoring Symptomatic menopausal or female climacteric states [...] elbow OOPHORECTOMY PARTIAL/TOTAL UNI/BI 10/19/2007 Ovarian cancer, [facility] PAST SURGICAL HISTORY OF 05/28/1973 first [...] by mouth daily before breakfast. 1/2 hr beforemeal. niacin ER (NIASPAN) 500 mg tablet Take [...] Wt 96.6 kg (213 lb) LMP 05/28/1990 EhR503% BMI 36.56 kg/m PHYSICAL EXAM: GEN: NAD [...] CAP Derick Atkins MD documented in this encounterUniversity Hospitals Health System08-25-2022 History of Present illness Narrative* Steph Escalera, RT(R) - 01/19/2022 1:40 PM EDT Radiology Service Progress Note PATIENT NAME: Sandrine Rivers DATE OF SERVICE: January 19, 2022 TIME: 1:40 PM PATIENT IDENTITY VERIFICATION COMPLETED USING TWO (2) IDENTIFIERS: Name and Date of confirmedby patient verbally. FALL SCREENING: Has the patient had 2 falls in the last year or 1 fall with injury or currently using an Ambulatory Assistive Device (Walker, Cane, Wheelchair, Crutches, etc.)? No PATIENT GENDER DATA: Female. status: : No status: NO. PATIENT RELEVANT IMPLANT DATA REVIEWED: Not Applicable RADIOLOGY DEPARTMENT: General X-ray: Exam(s) Completed: Lower Extremity X- Ray(s): Knee, AP / Lat / Tunne / Merchant Left and Wt. Bearing PERIPHERAL IV DATA: Not applicable SIGNED BY: RT Barron(R) January 19, 2022 1:40 PM documented in this encounterUniversity Hospitals Health System08-25-2022 History of Present illness Narrative* Sylwia Mcleod APRN.COMMUNICATION SIGNALS INTELLIGENCE - 01/19/2022 1:35 PM EDT Images from the original note were not included. Subjective Patient came in with complaints of falling on her left knee. She tripped over a cord her had in front of the door. She does have some bruising due to being on blood thinners. She is having nopain at all. Family is concerned about injury. Patient is okay with getting xray to rule out any fractures. The history is provided by the patient. No language therapist was used. Fall Review of Systems Constitutional: [...] elbow OOPHORECTOMY PARTIAL/TOTAL UNI/BI 10/19/2007 Ovarian cancer, [facility] PAST SURGICAL HISTORY OF 05/28/1973 first [...] by mouth daily before breakfast. 1/2 hr beforemeal. niacin ER (NIASPAN) 500 mg tablet Take [...] report. No evidence of fracture or dislocation. Chief Vendor Quality: CHAPINCITO Transcribe Date/Time: Jan 19 2022 1:58P Dictated by : AMARA DE PAZ MD Patient was updated and will follow up if anything changes. Sylwia Mcleod APRN.COMMUNICATION SIGNALS INTELLIGENCE documented in this encounterUniversity Hospitals Health System08-15-2022 History of Present illness Narrative* Deborah Carlisle Ma - 01/09/2022 2:41 PM EDT Call to pt and notified her of message below. Pt verbalized understanding. Tracker updated. Deborah Carlisle Ma * Samantha Reyes MD - 01/09/2022 2:04 PM EDT Stay on 5mg Mon,Thurs and 2.5mg all other days Recheck in 2 weeks as planned Samantha Reyes MD * Shila Weiss RN - 01/09/2022 10:51 AM EDT patient had inr completed at [facility] patients inr is 1.4 (patients inr range [...] up inr on 01/23/22 documented in this encounterUniversity Hospitals Health System08-08-2022 History of Present illness Narrative* Deborah Carlisle Ma - 01/02/2022 2:35 PM EDT Tracker updated. Deborah Carlisle Ma * Samantha Reyes MD - 01/02/2022 2:22 PM EDT Discussed at appt; hold for three days, then go to 5 mg Mon and Thurs, 2.5 mg all other days Recheck in 1 week as planned Samantha Reyes MD * Shila Weiss RN - 01/02/2022 11:07 AM EDT patient had inr completed at [facility] patients inr is 4.5 (patients inr range [...] [facility] patient has been scheduled for a 1 week inr follow up on 01/09/22 documented in this encounterUniversity Hospitals Health System08-08-2022 History of Present illness Narrative* Samantha Reyes MD - 01/02/2022 9:00 AM EDT Chief Complaint Patient presents with: 6 Month Exam HPI Sandrine Rivers is a 81 year old female who presents here today for a 6 month follow up. Pt here today for a 6 month follow up. Was seen in September for an acute visit. Follows with Dr. Freire for eye exams. Denies any stomach or bowel issues. Does follow with [employer] due to incontinence. See's Dr. Sheba Cortez. [...] for her. Follows with Dr. Waite at [facility]. Was seen on 10/17/21 due to sob [...] on daily Coumadin. She was in the [facility] ER in November for chest pains,was in a-fib. She was told her heart was fine. Was sent home. INR today 4.5, changed dosage to: Hold coumadin x 3 days then go back to 5 mg Sun & , 2.5 mg all other days. Pain: Having some issues with abdominal pain off and on x 3-4 months but more constant the past 2-3weeks. Feels pressure in the mid upper abdomen, a bloating sensation. Does use Carafate. She statesshe is not taking Prevacid any longer. No [...] elbow OOPHORECTOMY PARTIAL/TOTAL UNI/BI 10/19/2007 Ovarian cancer, [facility] PAST SURGICAL HISTORY OF 05/28/1973 first [...] by mouth daily before breakfast. 1/2 hr beforemeal. nitroglycerin(NITROQUICK 0.4 MG SUBLINGUAL TAB) ASPIRIN 81 [...] in no acute distress, well-hydrated, well nourished. andObese. Lungs: Lungs clear to auscultation. No wheezing, [...] Goal of BP <130/80 2. Atherosclerosis of 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 coronary artery of 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 angina pectoris - ICD9: 414.01, ICD10: I25.10 Continue current medications. Continue with [employer]-Dr. Waite 3. Atrial fibrillation, unspecified type (HCC) [...] Past Histories independently gathered by the clinical technician support association and the remaining scribed note accurately describes [...] AM. Julia Patel Ma documented in this encounterUniversity Hospitals Health System08-05-2022 Miscellaneous Notes* Telephone Encounter - Charles Chavez APRN.CNP - 12/30/2021 9:39 AM EDT Filled in other TE. Charles Chavez APRN.CNP documented in this encounterUniversity Hospitals Health System08-05-2022 Miscellaneous Notes* Telephone Encounter - Charles Chavez APRN.CNP - 12/30/2021 9:38 AM EDT The following approved medication requests have been transmitted electronically. Pending Prescriptions Disp Refills NIACIN ER 500 MG TABLET,EXTENDED RELEASE 24 HR 60 tablet 11 Sig: Take 1 tablet by mouth twice daily. KATELYN: No Charles Chavez APRN.CNP * Telephone Encounter - Jenna Vega - 12/30/2021 9:08 AM EDT Patient has been identified by name and date of : Yes Pending Prescriptions Disp Refills NIACIN ER 500 MG TABLET,EXTENDED RELEASE 24 HR 60 tablet 11 Sig: Take 1 tablet by mouth twice daily. KATELYN: No DEANN-10/17/21 Labs- NOV-01/02/22 med filled 12/17/20 RX INSTRUCTIONS: Patient aware RX will be sent to pharmacy. No need to notify patient. Jenna Donohue Pss documented in this encounterUniversity Hospitals Health System07-29-2022 Miscellaneous Notes* Telephone Encounter - Charles Chavez APRN.CNP - 12/23/2021 10:56 AM EDT The following approved medication requests have been transmitted electronically. Pending Prescriptions Disp Refills CHOLECALCIFEROL (VITAMIN D3) 1,250 MCG (50,000 UNIT) CAPSULE 12 capsule 3 Sig: TAKE 1 CAPSULE BY MOUTH ONCE A WEEK KATELYN: Yes Charles Chavez APRN.CNP * Telephone Encounter - Latoya Chapa [facility] - 12/23/2021 9:31 AM EDT Patient has been identified by name and date of : Yes Pending Prescriptions Disp Refills CHOLECALCIFEROL (VITAMIN D3) 1,250 MCG (50,000 UNIT) CAPSULE 12 capsule 3 Sig: TAKE 1 CAPSULE BY MOUTH ONCE A WEEK KATELYN: Yes DEANN-10/17/21 Labs-10/18/21 NOV-01/02/22 med filled 10/22/20 RX INSTRUCTIONS: Patient aware RX will be sent to pharmacy. No need to notify patient. Latoya Chapa [id number] documented in this encounterUniversity Hospitals Health System07-29-2022 Miscellaneous Notes* Telephone Encounter - Latoya Chapa [facility] - 12/23/2021 9:34 AM EDT This was a duplicate request for a refill Opened in error Electronically signed by [facility]oya [facility] at 12/23/2021 9:34 AM EDT documented in this encounterUniversity Hospitals Health System07-21-2022 History of Present illness Narrative* Julia Patel Ma - 12/15/2021 10:46 AM EDT Pt notified and repeated instructions back. Tracker and med list updated. Julia Patel Ma * Samantha Reyes MD - 12/15/2021 10:39 AM EDT Go to 5 mg Mon, Wed, Fri, Sat; 2.5mg all other days Recheck as planned on 01/02 Samantha Reyes MD * Shila Weiss RN - 12/15/2021 10:20 AM EDT patient had inr completed at [facility] patients inr is 1.5 (patients inr range [...] pcp also this day documented in this encounterUniversity Hospitals Health System07-15-2022 Miscellaneous Notes* Telephone Encounter - Charles Chavez APRN.CNP - 12/09/2021 10:06 AM EDT The following approved medication requests have been transmitted electronically. Pending Prescriptions Disp Refills FUROSEMIDE 40 MG TABLET 90 tablet 3 Sig: Take 1 tablet by mouth once daily. KATELYN: No Charles Chavez APRN.CNP * Telephone Encounter - Jaylin Berkowitz LPN - 12/09/2021 9:52 AM EDT Patient phones requesting refills as follows: Pending Prescriptions Disp Refills FUROSEMIDE 40 MG TABLET 90 tablet 3 Sig: Take 1 tablet by mouth once daily. KATELYN: No DEANN-10/17/21 Lab-10/18/21Mar/01/02/22 med filled 10/11/21 Please review and advise. Jaylin Berkowitz LPN * Telephone Encounter - Laurie Vega - 12/09/2021 9:32 AM EDT Put in dispensing and refills documented in this encounterUniversity Hospitals Health System06-29-2022 Miscellaneous Notes* Telephone Encounter - Julia Patel Ma - 11/23/2021 3:43 PM EDT Pt dropped of disc that had chest imaging done at [facility]. Records printed off and sent to scanning. Message left notifying pt that disc is at [facility] for pick out hand. Julia Patle Ma documented in this encounterUniversity Hospitals Health System06-28-2022 Miscellaneous Notes* Telephone Encounter - Sharath Donohue LPN - 11/22/2021 2:03 PM EDT Spoke with pt and information listed below given. Pt verbalizes understanding. Pt states the medication is helping and she already has a follow up scheduled. Sharath Donohue LPN * Telephone Encounter - Anila Wilkes - 11/22/2021 12:31 PM EDT Left message for patient to return call. Anila Wilkes * Telephone Encounter - Anila Wilkes - 11/22/2021 12:30 PM EDT ----- Message from Odessa Sanchez APRN.MIKA sent at 11/22/2021 12:17 PM EDT ----- Urine culture did not show clear evidence of infection. The sample may have been contaminated with skin bacteria during collection. She may continue to take antibiotic if it has been helpful. Recommend follow up with PCP to ensure hematuria has resolved. Odessa Sanchez CNP documented in this encounterUniversity Hospitals Health System06-27-2022 History of Present illness Narrative* Odessa Sanchez APRN.MIKA - 11/21/2021 11:35 AM EDT Subjective Sandrine Rivers is an 81 year old female who presents with urinary frequency, urgency, and burning for3 days. Denies fever, chills, flank pain, or [...] elbow OOPHORECTOMY PARTIAL/TOTAL UNI/BI 10/19/2007 Ovarian cancer, [facility] PAST SURGICAL HISTORY OF 05/28/1973 first [...] by mouth daily before breakfast. 1/2 hr beforemeal. nitroglycerin(NITROQUICK 0.4 MG SUBLINGUAL TAB) ASPIRIN 81 [...] MG CAPSULE DENZEL Goldsmith student TEACHING PROVIDER (Physician/PA/CARTON CATCHER) NOTE OF PERSONAL INVOLVEMENT IN CARE: I have personally seen and examined the patient and performed the medical decision-making components. I have reviewed the Advanced Practice Registered Nurse (CARTON CATCHER) Student's documentation and verified the findings in the note as written. Any additions or changes are noted in bold/italics. Signature: Odessa Sanchez Date: 11/21/2021 Time: 11:40 AM documented in this encounterUniversity Hospitals Health System06-27-2022 Instructions* Patient Instructions* Marce Palmer - 11/21/2021 11:31 AM EDT [...] from front to back documented in this encounterUniversity Hospitals Health System06-20-2022 Miscellaneous Notes* Telephone Encounter - ADALBERTO Lang - 11/14/2021 12:10 PM EDT TC to patient who verbalizes understanding of providers message below. ADALBERTO Lang * Telephone Encounter - Samantha Reyes MD - 11/14/2021 11:39 AM EDT I would suggest that she take both the Carafate and the Protonix Samantha Reyes MD * Telephone Encounter - Indira Alcala RN - 11/14/2021 9:31 AM EDT Pt called in and reports she was at the hospital over the weekend she was having such chest pain she thought it was her heart. She reports they told her it could be her acid reflux or asthma or COPD,and they added Protonix 40 mg for her but she hasn't had a chance to pick it up yet. Pt wanted to know if she should stop taking the Carafate, take the two together, or take them at different times. Pt was asked if she wanted to make and ER f/u, and she said she has an appointment in December. Pleasecall and advise. documented in this encounterUniversity Hospitals Health System06-16-2022 History of Present illness Narrative* Samantha Reyes MD - 11/10/2021 11:24 AM EDT I agree with the advice given; stay same and recheck in 2 weeks Samantha Reyes MD * Shila Weiss RN - 11/10/2021 10:43 AM EDT patient had inr completed at [facility] patients inr is 2.6 (patients inr range [...] reading since dose change documented in this encounterUniversity Hospitals Health System05-23-2022 History of Present illness Narrative* Samantha Reyes MD - 10/17/2021 4:40 PM EDT Chief Complaint Patient presents with: Shortness of [...] exertion. She had CXR done 10/11/[address] [facility], Dr. Gorman told pt that the xrresults showed COPD and advised her to follow [...] lot. Denies any noticeable swelling in extremities. Doeshave some abdominal pain/soreness when trying to take [...] elbow OOPHORECTOMY PARTIAL/TOTAL UNI/BI 10/19/2007 Ovarian cancer, [facility] PAST SURGICAL HISTORY OF 05/28/1973 first [...] by mouth daily before breakfast. 1/2 hr beforemeal. nitroglycerin(NITROQUICK 0.4 MG SUBLINGUAL TAB) ASPIRIN 81 [...] in no acute distress, well-hydrated, well nourished. andObese. Lungs: Lungs clear to auscultation. No wheezing, [...] Aged Out Data reviewed Outside labs from [facility] - Cardio ASSESSMENT/PLAN: 1. SOB (shortness of [...] Past Histories independently gathered by the clinical technician support association and the remaining scribed note accurately describes [...] PM. Deborah Carlisle Ma documented in this encounterUniversity Hospitals Health System05-19-2022 Miscellaneous Notes* Telephone Encounter - Samantha Reyes MD - 10/13/2021 3:23 PM EDT Noted Samantha Reyes MD * Telephone Encounter - Sandrine Vincent RN - 10/13/2021 1:02 PM EDT Patient was seen by her lens inspector, Dr. Gaurang Gorman for new onset shortness of breath with exertion. She had a CXR done on 10/[address] [facility]. She states Dr. Gorman notified her of result showing COPD and instructed her to follow up with PCP. She says she is also scheduled for ECHO and stress test in October. Appointment scheduled with PCP on Sunday, 10/17 for follow up. Sandrine Vincent RN documented in this encounterUniversity Hospitals Health System05-16-2022 History of Present illness Narrative* Samantha Reyes MD - 10/10/2021 11:43 AM EDT I agree with the advice given; stay same and recheck in 2 weeks Samantha Reyes MD * Shila Weiss RN - 10/10/2021 11:02 AM EDT patient had inr completed at [facility] [place] patients inr is 2.9 (patients inr range [...] reading since dose change documented in this encounterUniversity Hospitals Health System05-12-2022 Miscellaneous Notes* Telephone Encounter - Jaylin Berkowitz LPN - 10/06/2021 11:55 AM EDT Patient notified of results, verbalizes understanding of instructions. Jaylin Berkowitz LPN * Telephone Encounter - Samantha Reyes MD - 10/06/2021 11:34 AM EDT Please notify patient that her lab work from last month looks OK; follow up in Dec as scheduled Samantha Reyes MD documented in this encounterUniversity Hospitals Health System05-02-2022 History of Present illness Narrative* Deborah Carlisle Ma - 09/26/2021 2:56 PM EDT Pt called and notified of PCP's recommendation below and verbalized understanding. Tracker updated. Deborah Carlisle Ma * Samantha Reyes MD - 09/26/2021 1:29 PM EDT Go to 5mg Mon,Weds, Fri; 2.5mg all other days Recheck in 2 weeks as planned Samantha Reyes MD * Shila Weiss RN - 09/26/2021 11:59 AM EDT patient had inr completed at [facility] [place] [place] patients inr is 1.8 (patients inr range [...] up inr on 10/10/21 documented in this encounterUniversity Hospitals Health System04-25-2022 History of Present illness Narrative* Julia Patel Ma - 09/19/2021 1:33 PM EDT Pt notified and voiced understanding, repeated instructions back. Tracker and med list updated. Julia Patel Ma * Samantha Reyes MD - 09/19/2021 11:36 AM EDT Go to 5 mg on Mon and Thurs; 2.5 mg all other days Recheck in 1 week as planned Samantha Reyes MD * Shila Weiss RN - 09/19/2021 11:28 AM EDT patient had inr completed at [facility] [place] [place] patients inr is 1.7 (patients inr range is 2.0-3.0) patient is currently taking 5mg Mon and 2.5mg all other days patients last dose change was on 09/12/21 due to a low level of 1.8 (dose at that time was 5mg Fri and 2.5mg Sat Sun only due high level on 09/02/21 for 5.3 and dose was 5mg Mon,Wed,Fri and 2.5mg all other [...] up inr on 09/26/21 documented in this encounterUniversity Hospitals Health System04-20-2022 History of Present illness Narrative* Rachel Busch APRN.[employer] - 09/14/2021 11:30 AM EDT UROGYN TELEPHONE VISIT PROGRESS NOTE This is [...] is doing great on this medication. It hasresolved her incontinence. Denies UI, urgency or frequency at the current time. Denies side effectsfrom medication. Denies voiding dysfunction (She did have recent UTI which caused some emptying issues, but flow has returned to normal after taking antibiotics). When pt requested Myrbetriq refill, I declined to refill it because last BP on file in [facility] from 09/09/21 was 156/102. Pt had UTI [...] minutes Rachel Busch APRN.MIKA documented in this encounterUniversity Hospitals Health System04-18-2022 History of Present illness Narrative* Zunilda Baker LPN - 09/12/2021 4:51 PM EDT Pt notified of results, new coumadin dose, and recheck date. Appt scheduled. Anticoag tracker updated. Zunilda Baker LPN * Samantha Reyes MD - 09/12/2021 3:00 PM EDT Go to 5 mg on Sunday; 2.5 mg all other days Recheck in 1 week rather than 2 weeks Samantha Reeys MD * Shila Weiss RN - 09/12/2021 2:13 PM EDT patient had inr completed at [facility] patients inr is 1.8 (patients inr range is 2.0-3.0) patient is currently taking 5mg Fri and 2.5mg Sat,Sun only at this time patients last dose change was on 09/02/21 due to a high level of 5.3 (dose at that time was 5mg Sun,Sun,Sun and 2.5mg all other days) patient has [...] up inr on 09/26/21 documented in this encounterUniversity Hospitals Health System04-18-2022 Nurse Note* Zunilda Baker LPN - 09/12/2021 4:50 PM EDT Pt notified of new dose and recheck date. Appt scheduled for same. Zunilda Baker LPN documented in this encounterUniversity Hospitals Health System04-15-2022 Miscellaneous Notes* Telephone Encounter - Bekah Mayer LPN - 09/09/2021 2:51 PM EDT Patient notified and voiced her understanding. * Telephone Encounter - Ana Rosa Barnhart Ma - 09/09/2021 2:31 PM EDT Left vm for patient to call office back Ana Rosa Barnhart Ma * Telephone Encounter - Avtar Garcia MD - 09/09/2021 2:17 PM EDT Advise patient to take 5 mg of coumadin today and 2.5 mg Sun and Sunday. Needs INR on Sunday09/12/2021 * Telephone Encounter - Brook Martinez Ma - 09/09/2021 1:50 PM EDT Last INR: INR (POCT) 1.4 09/09/2021 Current dose of coumadin is: pt was holding coumadin for 3 days (09/02-09/04) and then 2.5 mg daily. Last date of dose change: 09/02/21. Previous INR (date and result): 5.3 on 09/02/21 Additional Clinical Information or narrative: no Pt's pcp out this afternoon, will send to DOC. documented in this encounterUniversity Hospitals Health System04-15-2022 Miscellaneous Notes* Telephone Encounter - Laurie Moody RN - 09/09/2021 1:59 PM EDT Attempted to reach patient x 2. Phone hangs up. Laurie Moody RN * Telephone Encounter - Laurie Moody RN - 09/09/2021 1:41 PM EDT Nurse triage VM - Patient of [place] needs refill, did not mention what one. documented in this encounterUniversity Hospitals Health System04-15-2022 History of Present illness Narrative* Davina Flowers PA-C - 09/09/2021 1:05 PM EDT This note was created using [employer]. Subjective Sandrine Rivers is a 81 year old female. HPI Patient presents with a chief complaint of urinary frequency and pain. She has had some suprapubic discomfort as well. This had started 3 or 4 days ago. She denies vomiting or fever. She has had UTIspreviously and this feels similar. She has some [...] bypass status Pulmonary embolism (HCC) hx in 10-2000 Snoring Symptomatic menopausal or female climacteric states [...] by mouth daily before breakfast. 1/2 hr beforemeal. 30 capsule 5 nitroglycerin(NITROQUICK 0.4 MG SUBLINGUAL [...] elbow OOPHORECTOMY PARTIAL/TOTAL UNI/BI 10/19/2007 Ovarian cancer, [facility] PAST SURGICAL HISTORY OF 05/28/1973 first [...] is no right CVA tenderness, left CVA tendernessor guarding. Musculoskeletal: Cervical back: Neck supple. Skin: General: Skin is warm and dry. Neurological: Mental Status: She is alert. Assessment and Plan ASSESSMENT/PLAN: 1. Dysuria - ICD9: 788.1, ICD10: R30.0 acute - UA positive for jose daniel esterase, hematuria and proteinuria - Send urine for culture - Begin treatment with keflex for 7 days - UA DIP, URINE (POC) - URINE CULTURE Davina Flowers PA-C documented in this encounterUniversity Hospitals Health System04-08-2022 History of Present illness Narrative* Julia Patel Ma - 09/02/2021 12:50 PM EDT Pt notified and voiced understanding. Tracker and med list updated. Julia Patel Ma * Samantha Reyes MD - 09/02/2021 10:01 AM EDT Hold coumadin for 3 days, then go to 2.5 mg daily Recheck in 1 week as planned Samantha Reyes MD * Shila Weiss RN - 09/02/2021 9:57 AM EDT patient had inr completed at [facility] [place] patients inr is 5.3 (patients inr range [...] is closed next week documented in this encounterUniversity Hospitals Health System04-08-2022 Miscellaneous Notes* Telephone Encounter - Samantha Reyes MD - 09/02/2021 10:17 AM EDT Order filed Samantha Reyes MD * Telephone Encounter - Shila Weiss RN - 09/02/2021 10:00 AM EDT patients orders for coumadin clinic inr's has at this time. new order has been pended for approval if possible so that patient can continue to get inr's completed thru the coumadin clinic. coumadin clinic nurse only needs called if order can not be approved. documented in this encounterUniversity Hospitals Health System11-08-2021 History of Present illness Narrative* Steph Escalera RT(R) - 04/04/2021 10:50 AM EST Radiology Service Progress Note PATIENT NAME: Sandrine Rivers DATE OF SERVICE: April 04, 2021 TIME: 10:51 AM PATIENT IDENTITY VERIFICATION COMPLETED USING TWO (2) IDENTIFIERS: Name and Date of confirmedby patient verbally. FALL SCREENING: Has the patient had 2 falls in the last year or 1 fall with injury or currently using an Ambulatory Assistive Device (Walker, Cane, Wheelchair, Crutches, etc.)? No PATIENT GENDER DATA: Female. status: : No status: NO. PATIENT RELEVANT IMPLANT DATA REVIEWED: Not Applicable RADIOLOGY DEPARTMENT: General X-ray: Exam(s) Completed: Lower Extremity X- Ray(s): Knee, AP / Lat / Tunne / Merchant Left and Wt. Bearing PERIPHERAL IV DATA: Not applicable SIGNED BY: RT Barron(R) April 04, 2021 10:51 AM documented in this encounterUniversity Hospitals Health System04-20-2021 History of Present illness Narrative* Yadi HopkinsRtMatilde Heredia - 09/14/2020 10:50 AM EDT Radiology Service Progress Note PATIENT NAME: Sandrine Rivers DATE OF SERVICE: September 14, 2020 TIME: 10:55 AM PATIENT IDENTITY VERIFICATION COMPLETED USING TWO (2) IDENTIFIERS: Name and Date of confirmedby patient verbally. FALL SCREENING: Has the patient had 2 falls in the last year or 1 fall with injury or currently using an Ambulatory Assistive Device (Walker, Cane, Wheelchair, Crutches, etc.)? Yes, Patient High Riskfor Falls What interventions were put in place to prevent falls during this visit? Instructed Patient to Callfor Help if Needed, Offered Assistance with Transfers/Clothing and Increased Observations by Caregivers PATIENT GENDER DATA: Female. status: : No status: NO. PATIENT RELEVANT IMPLANT DATA REVIEWED: Yes RADIOLOGY DEPARTMENT: General X-ray: Exam(s) Completed: Spine X-Ray(s): Cervical AP / LAT / OBL Upper Extremity X-Ray(s): Shoulder, AP / TRUE AP right : PERIPHERAL IV DATA: Not applicable SIGNED BY: RT Juventino September 14, 2020 10:55 AM [facility] [place] [facility]* Diagnosis Personal history of venous thrombosis and embolism- Primary documented in this encounter [facility]* Diagnosis Personal history of venous thrombosis and embolism Atrial fibrillation, unspecified type (HCC) documented in this encounter [facility]* Diagnosis Dysuria- Primary documented in this encounter [facility] note* Diagnosis Personal history of venous thrombosis and embolism documented in this encounter [facility] note* Diagnosis Personal history of venous thrombosis and embolism documented in this encounter [facility] note* Diagnosis Urge incontinence- Primary documented in this encounter [facility] note* Diagnosis Onset Date Resolution Status Ovarian cancer chronic Ovarian cancer [facility] Work Phone: Evaluation note* Diagnosis Personal history of venous thrombosis and embolism documented in this encounter [facility]* Diagnosis Personal history of venous thrombosis and embolism [facility] Diagnosis Onset Date Resolution Status Ovarian cancer chronic Ovarian cancer chronic Chest heaviness acute Dyspnea acute Fatigue acute Atherosclerotic heart diseas e of 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 coronary artery without angina pectoris chronic Essential hypertension chron ic Paroxysmal atrial fibrillation chronic Pure hypercholesterolemia [facility] Work Phone: Evaluation note* Diagnosis SOB (shortness of breath)- Primary Shortness of breath Atrial fibrillation, unspecified type (HCC) Atherosclerosis of 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 coronary artery of 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 angina pectoris Essential hypertension, benign Hypothyroidism, unspecified type [facility]* Diagnosis Onset Date Resolution Status Chest heaviness acute Dyspnea acute Fatigue acute Atherosclerotic heart diseas e of 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 coronary artery without angina pectoris chronic Essential hypertension chron ic Paroxysmal atrial fibrillation chronic Pure hypercholesterolemia [facility] Work Phone: Evaluation note* Diagnosis Painful urination- Primary Dysuria Acute cystitis with hematuria Acute cystitis [facility]* Diagnosis Personal history of venous thrombosis and embolism Atrial fibrillation, unspecified type (HCC) documented in this encounter [facility]* Diagnosis Essential hypertension, benign- Primary Atherosclerosis of 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 coronary artery of 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 angina pectoris Atrial fibrillation, unspecified type (HCC) Gastroesophageal reflux disease, unspecified whether esophagitis present Hypothyroidism, unspecified type Obesity, Class II, BMI 35-39.9 Obesity, unspecified documented in this encounter [facility] SystemEvaluation [facility]* Diagnosis Onset Date Resolution Status Chest heaviness acute Dyspnea acute Fatigue acute Atherosclerotic heart diseas e of 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 coronary artery without angina pectoris chronic Essential hypertension chron ic Paroxysmal atrial fibrillation chronic Pure hypercholesterolemia [facility] Dyspnea acute Fatigue acute Atherosclerotic heart diseas e of 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 coronary artery without angina pectoris chronic Essential hypertension chron ic Paroxysmal atrial fibrillation chronic Pure hypercholesterolemia [facility] Work Phone: Evaluation note* Diagnosis Fall, initial encounter- Primary [facility] Diagnosis Urinary frequency- Primary Burning with urination Dysuria documented in this encounter [facility] SystemEvaluation [facility]* Diagnosis Onset Date Resolution Status Dyspnea acute Fatigue acute Atherosclerotic heart diseas e of 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 coronary artery without angina pectoris chronic Essential hypertension chron ic Paroxysmal atrial fibrillation chronic Pure hypercholesterolemia [facility] Work Phone: Evaluation note* Diagnosis Onset Date Resolution Status Dyspnea acute Fatigue acute Atherosclerotic heart diseas e of 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 coronary artery without angina pectoris chronic Essential hypertension chron ic Paroxysmal atrial fibrillation chronic Pure hypercholesterolemia ch ronic Dyspnea acute Fatigue acute Atherosclerotic heart diseas e of 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 coronary artery without angina pectoris chronic Essential hypertension chron ic Paroxysmal atrial fibrillation chronic Pure hypercholesterolemia [facility] Work Phone: Evaluation note* Diagnosis Hypothyroidism, unspecified type documented in this encounter [facility]* Diagnosis Personal history of venous thrombosis and embolism documented in this encounter [facility]* Diagnosis Urinary frequency- Primary documented in this encounter [facility]* Diagnosis Personal history of venous thrombosis and embolism documented in this encounter [facility]Evaluation [facility]* Diagnosis Onset Date Resolution Status Dyspnea acute Fatigue acute Atherosclerotic heart diseas e of 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 coronary artery without angina pectoris chronic Essential hypertension chron ic Paroxysmal atrial fibrillation chronic Pure hypercholesterolemia ch ronic Dyspnea acute Fatigue acute Atherosclerotic heart diseas e of 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 coronary artery without angina pectoris chronic Essential hypertension chron ic Paroxysmal atrial fibrillation chronic Pure hypercholesterolemia ch [place]onic Dyspnea acute Fatigue acute Atherosclerotic heart diseas e of 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 coronary artery without angina pectoris chronic Essential hypertension chron ic Paroxysmal atrial fibrillation chronic Pure hypercholesterolemia [facility] Work Phone: Evaluation note* Diagnosis Personal history of venous thrombosis and embolism Atrial fibrillation, unspecified type (HCC) documented in this encounter [facility]* Diagnosis Onset Date Resolution Status Dyspnea acute Fatigue acute Atherosclerotic heart diseas e of 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 coronary artery without angina pectoris chronic Essential hypertension chron ic Paroxysmal atrial fibrillation chronic Pure hypercholesterolemia ch [facility]onic Dyspnea acute Fatigue acute Atherosclerotic heart diseas e of 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 coronary artery without angina pectoris chronic Essential hypertension chron ic Paroxysmal atrial fibrillation chronic Pure hypercholesterolemia ch [facility]onic Dyspnea acute Atherosclerotic heart diseas e of 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 coronary artery without angina pectoris chronic Essential hypertension chron ic Paroxysmal atrial fibrillation chronic Pure hypercholesterolemia [facility] Work Phone: Evaluation note* Diagnosis Onset Date Resolution Status Dyspnea acute Fatigue acute Atherosclerotic heart diseas e of 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 coronary artery without angina pectoris chronic Essential hypertension chron ic Paroxysmal atrial fibrillation chronic Pure hypercholesterolemia ch ronic Dyspnea acute Atherosclerotic heart diseas e of 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 coronary artery without angina pectoris chronic Essential hypertension chron ic Paroxysmal atrial fibrillation chronic Pure hypercholesterolemia ch [place]onic Dyspnea acute Atherosclerotic heart diseas e of 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 coronary artery without angina pectoris chronic Essential hypertension chron ic Paroxysmal atrial fibrillation chronic Pure hypercholesterolemia [facility] Work Phone: Evaluation note* Diagnosis Onset Date Resolution Status Dyspnea acute Atherosclerotic heart diseas e of 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 coronary artery without angina pectoris chronic Essential hypertension chron ic Paroxysmal atrial fibrillation chronic Pure hypercholesterolemia ch [place] Dyspnea acute Atherosclerotic heart diseas e of 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 coronary artery without angina pectoris chronic Essential hypertension chron ic Paroxysmal atrial fibrillation chronic Pure hypercholesterolemia ch ronic Ovarian cancer chronic Paroxysmal atrial fibrillation [facility] Work Phone: Evaluation note* Diagnosis Encounter for long-term (current) use of medications- Primary Encounter for long-term (current) use of other medications documented in this encounter [facility]* Diagnosis Onset Date Resolution Status Dyspnea acute Atherosclerotic heart diseas e of 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 coronary artery without angina pectoris chronic Essential hypertension chron ic Paroxysmal atrial fibrillation chronic Pure hypercholesterolemia ch ronic Dyspnea acute Atherosclerotic heart diseas e of 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 coronary artery without angina pectoris chronic Essential hypertension chron ic Paroxysmal atrial fibrillation chronic Pure hypercholesterolemia ch ronic Ovarian cancer chronic Paroxysmal atrial fibrillation chronic Dyspnea acute Atherosclerotic heart diseas e of 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 coronary artery without angina pectoris chronic Essential hypertension chron ic Paroxysmal atrial fibrillation chronic Pure hypercholesterolemia [facility] Work Phone: Evaluation note* Diagnosis 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 Mixed incontinence urge and stress (male)(female) [facility] Diagnosis Viral URI with cough- Primary Acute upper respiratory infections of unspecified site [facility] Diagnosis COVID-19- Primary documented in this encounter [facility]* Diagnosis Urinary incontinence, unspecified type- Primary documented in this encounter [facility]* Diagnosis Onset Date Resolution Status Atrial fibrillation chronic Coronary artery disease 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 Dyslipidemia chronic H/O coronary artery bypass surgery 1999 chronic History of pulmonary embolism chronic Hypertension chronic Stented coronary artery October 18, 2007 [facility] Work Phone: evaluation note* Diagnosis Urinary frequency- Primary documented in this encounter [facility]* Diagnosis Atherosclerosis of 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 coronary artery of 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 angina pectoris Hyperlipidemia, unspecified hyperlipidemia type Essential hypertension, benign documented in this encounter [facility]* Diagnosis Essential hypertension, benign- Primary Hyperlipidemia, unspecified hyperlipidemia type Chronic kidney disease, stage 3a (HCC) Hypothyroidism, unspecified type Gastroesophageal reflux disease, unspecified whether esophagitis present Vitamin D deficiency Unspecified vitamin D deficiency Urinary incontinence, unspecified type Atherosclerosis of 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 coronary artery of 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 angina pectoris Atrial fibrillation, unspecified type (HCC) Deep vein thrombosis (DVT) of lower extremity, unspecified chronicity, unspecified laterality, unspecified vein (HCC) Malignant neoplasm of ovary, unspecified laterality (HCC) documented in this encounter [facility] noteNo assessment information availableWDayton Osteopathic [facility] Work Phone: Evaluation note* Diagnosis Essential hypertension, benign- Primary Atrial fibrillation, unspecified type (HCC) Chronic kidney disease, stage 3a (HCC) Need for vaccination Need for prophylactic vaccination and inoculation against unspecified single disease Encounter for screening mammogram for malignant neoplasm of breast Other screening mammogram Atherosclerosis of 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 coronary artery of 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 angina pectoris Gastroesophageal reflux disease, unspecified whether esophagitis present Hypothyroidism, unspecified type Obesity, Class II, BMI 35-39.9 Obesity, unspecified Vitamin D deficiency Unspecified vitamin D deficiency documented in this encounter [facility]* Diagnosis Encounter for screening mammogram for malignant neoplasm of breast Other screening mammogram documented in this encounter [facility]* Diagnosis Viral URI with cough Acute upper respiratory infections of unspecified site documented in this encounter [facility]* Diagnosis Fall, initial encounter documented [facility] this [facility] [facility] Diagnosis Acute pain of right shoulder [facility] Diagnosis Atherosclerosis of 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 coronary artery of 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 angina pectoris Hyperlipidemia, unspecified hyperlipidemia type Essential hypertension, benign [facility] Diagnosis Essential hypertension, benign- Primary Hyperlipidemia, unspecified hyperlipidemia type Atrial fibrillation, unspecified type (HCC) Deep vein thrombosis (DVT) of lower extremity, unspecified chronicity, unspecified laterality, unspecified vein (HCC) Atherosclerosis of 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 coronary artery of 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 angina pectoris Hypothyroidism, unspecified type Chronic kidney disease, stage 3a (HCC) Gastroesophageal reflux disease, unspecified whether esophagitis present Urinary incontinence, unspecified type Vitamin D deficiency Unspecified vitamin D deficiency documented in this encounter [facility] note* Diagnosis Acute UTI- Primary Urinary tract infection, site not specified documented in this encounter [facility] note* Diagnosis Nonrheumatic aortic (valve) stenosis- Primary documented in this encounter [facility] note* Diagnosis Acute on chronic systolic heart failure (HCC)- Primary Acute on chronic systolic heart failure Left ventricular hypertrophy Cardiomegaly Typical atrial flutter (HCC) Essential hypertension Unspecified essential hypertension 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 Paroxysmal atrial fibrillation (HCC) Atrial fibrillation Chronic diastolic heart failure (HCC) Chronic diastolic heart failure S/P CABG (coronary artery bypass graft) Postsurgical aortocoronary bypass status Mixed hyperlipidemia documented in this encounter [facility] note* Diagnosis Chronic HFrEF (heart failure with reduced ejection fraction) (HCC)- Primary Chronic HFrEF (heart failure with reduced ejection fraction) (HCC)- Primary Persistent atrial fibrillation (HCC) Atrial fibrillation 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 documented in this encounter [facility] note* Diagnosis Typical atrial flutter (HCC) Persistent atrial fibrillation (HCC) Atrial fibrillation Chronic HFrEF (heart failure with reduced ejection fraction) (HCC)- Primary Persistent atrial fibrillation (HCC) Atrial fibrillation 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 documented in this encounter [facility] note* Diagnosis Atrial fibrillation, unspecified type (HCC)- Primary Atrial fibrillation, unspecified type (HCC) Hyponatremia Hyposmolality and/or hyponatremia Chronic HFrEF (heart failure with reduced ejection fraction) (HCC)- Primary Persistent atrial fibrillation (HCC) Atrial fibrillation 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 documented in this encounter [facility] note* Diagnosis Persistent atrial fibrillation (HCC)- Primary Atrial fibrillation Acute on chronic systolic heart failure (HCC) Acute on chronic systolic heart failure Atrial flutter, unspecified type (HCC) Chronic HFrEF (heart failure with reduced ejection fraction) ([facility]) Essential hypertension Unspecified essential hypertension 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 S/P CABG (coronary artery bypass graft) Postsurgical aortocoronary bypass status [facility] Diagnosis Palpitation- Primary Palpitations documented in this encounter [facility] note* Diagnosis Persistent atrial fibrillation (HCC)- Primary Atrial fibrillation Palpitation Palpitations Systolic heart failure, chronic (HCC) 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 documented in this encounter [facility] note* Diagnosis Persistent atrial fibrillation (HCC)- Primary Atrial fibrillation documented in this encounter [facility] note* Diagnosis Abnormal EKG- Primary Nonspecific abnormal electrocardiogram (ECG) (EKG) Persistent atrial fibrillation (HCC) Atrial fibrillation documented in this encounter [facility] Discharge instructions* Attachments The following attachments cannot be sent through Care Everywhere. * [facility] CV CARDIOVERSION DISCHARGE * Atrial Fibrillation ([place]) * Cardioversion Discharge Instructions ([place]) [facility] Diagnostic Procedure Only (Urgent) - Closed Specialty Diagnoses / Procedures Referred By Serene vidales Referred To Contact XR IMAGING Diagnoses Fall, initial encounter Procedures XR KNEE GENERAL 4V AP BOTH/PA BOTH/LAT/MERC LEFT RADIOLOGIC EXAM KNEE COMPLETE 4/MORE VIEWS Sylwia Mcleod APRN.CNP [address] [place] [address] Xr Imaging Referral ID Status Reason Start Date Expiration Date V isits Requested Visits Authorized [id number] Closed Auto-Generate d Referral 01/19/2022 02/18/2023 1 1 [facility] for referral (narrative)* Diagnostic Procedure Only (Routine) - Closed Specialty Diagnoses / Procedures Referred By Serene vidales Referred To Contact BR IMAGING Diagnoses Encounter for screening mammogram for malignant neoplasm of breast Procedures HERMELINDA SCREENING SCREENING MAMMOGRAPHY BI 2-VIEW BREAST INC Samantha Bautista MD [address] [place] [address] Br Imaging [address] [place] [address] Referral ID Status Reason Start Date Expiration Date V isits Requested Visits Authorized [id number] Closed Auto-Generate d Referral 10/11/2023 11/09/2024 1 1 [facility] for referral (narrative)* Diagnostic Procedure Only (Urgent) - Closed Specialty Diagnoses / Procedures Referred By Contac t Referred To Contact XR IMAGING Diagnoses Fall, initial encounter Procedures XR KNEE GENERAL 4V AP BOTH/PA BOTH/LAT/MERC LEFT RADIOLOGIC EXAM KNEE COMPLETE 4/MORE VIEWS Sylwia Mcleod APRN.[employer] [address] [place] [address] [place] [address] Referral ID Status Reason Start Date Expiration Date V isits Requested Visits Authorized [id number] Closed Auto-Generate d Referral 01/19/2022 02/18/2023 1 1 [facility] for referral (narrative)No reason for referral [facility] N[facility]* Diagnostic Procedure Only (Routine) - Closed Specialty Diagnoses / Procedures Referred By Contac t Referred To Contact BR IMAGING Diagnoses Encounter for screening mammogram for malignant neoplasm of breast Procedures HERMELINDA SCREENING SCREENING MAMMOGRAPHY BI 2-VIEW BREAST INC CAD Samantha Reyes MD [address] [place] [address] Br Imaging [address] [place] [address] Referral ID Status Reason Start Date Expiration Date V isits Requested Visits Authorized [id number] Closed Auto-Generate d Referral 10/11/2023 11/09/2024 1 1 [facility] for visit Narrative* Diagnostic Procedure Only (Urgent) - Closed Specialty Diagnoses / Procedures Referred By Contac t Referred To Contact XR IMAGING Diagnoses Fall, initial encounter Procedures XR KNEE GENERAL 4V AP BOTH/PA BOTH/LAT/MERC LEFT RADIOLOGIC EXAM KNEE COMPLETE 4/MORE VIEWS Sylwia Mcleod APRN.[employer] [address] [place] [address] [place] [address] Referral ID Status Reason Start Date Expiration Date V isits Requested Visits Authorized [id number] Closed Auto-Generate d Referral 01/19/2022 02/18/2023 1 1 [facility] for visit Narrative* Diagnostic Procedure Only (Urgent) - Closed Specialty Diagnoses / Procedures Referred By Contac t Referred To Contact XR IMAGING Diagnoses Acute pain of left knee Procedures XR KNEE GENERAL 4V AP BOTH/PA BOTH/LAT/MERC LT KNEE AP-WGT/LAT/MERCHANT Liss Rucker PA-C [address] [place] [address] [place] [address] Referral ID Status Reason Start Date Expiration Date V isits Requested Visits Authorized [id number] Closed Auto-Generate d Referral 04/04/2021 05/04/2022 1 1 [facility] for visit Narrative* Cardiology (Routine) - Closed Specialty Diagnoses / Procedures Referred By Contac t Referred To Contact Cardiology Diagnoses Typical atrial flutter (HCC) Procedures Cardioversion external Maggie Huggins MD [address] [place] [id number] Phone: tel: fax: Referral ID Status Reason Start Date Expiration Date Visits Re quested Visits Authorized [id number] Closed 11/11/2024 11/06/2025 1 1 [facility] for visit Narrative* Auth/Cert (Routine) Specialty Diagnoses / Procedures Referred By Serene t Referred To Contact Diagnoses Atrial fibrillation, unspecified type (HCC) Procedures .. Richie Whitney MD [address] [place] [address] Phone: tel: fax: [facility] EM[facility]PT [address] [place] [phone] Phone: tel: Referral ID Status Reason Start Date Expiration Date Visits Re quested Visits Authorized [id number] 1 1 [facility] [place] Summary Purpose Family History No Family History Records Found Relationship Condition Age at Onset Recorded Date/T emmanuel brother Hypertension Unknown Malignant neoplasm Unknown mother Cerebrovascular accident (CVA) Unknown Hypertension Unknown Relationship Condition Age at Onset Recorded Date/T emmanuel Not Specified Presence of stent in coronary artery Unk nown Lightheadedness Unknown 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 Unknown History of anterolat eral myocardial infarction Unknown Atherosclerosis of n ative coronary artery without angina pectoris Unknown Paroxysmal atrial fibrillation Unknown History of coronary artery bypass surgery Unknown brother Hypertension Unknown Malignant neoplasm Unknown mother Cerebrovascular accident (CVA) Unknown Hypertension Unknown Advance Directives No Advanced Directives Records Found Advance Directive Response Recorded Date/ Time Advance Directives Yes January 2:57pm Living Will Yes July 14, 2:44am Power of Men'S Designer Yes July 14, 2019 2:44am Advance Directive Response Recorded Date/ Time Name of Medical Power of Men'S Designer Jamir Silvestre November 10, 2021 10:58pm Advance Directives Yes January 2:57pm Living Will Yes November 10, 2021 10:58pm Power of Men'S Designer Yes November 10 10:58pm Advance Directive Response Recorded Date/ Time Name of Medical Power of Men'S Designer Jamir Rivers November 10, 2021 10:58pm Name of Medical Power of Men'S Designer JAMIR RIVERS- February 03, 2022 11:24am Advance Directives Yes January 2:57pm Living Will Yes February 03 022 11:24am Power of Men'S Designer Yes February 03, 2022 11:24am Advance Directive Response Recorded Date/ Time Name of Medical Power of Men'S Designer JAMIR RIVERS- February 03, 2022 11:24am Advance Directives No March 20, 2022 7:53am Living Will No March 20 7:53am Power of Men'S Designer No March 20, 2022 7:53am Advance Directive Response Recorded Date/ Time Name of Medical Power of Men'S Designer JAMIR RIVERS- February 03, 2022 10:24am Advance Directives No March 20, 2022 6:53am Living Will No March 20 6:53am Power of Men'S Designer No March 20, 2022 6:53am Advance Directive Response Recorded Date/ Time Advance Directives No March 20, 2022 6:53am Living Will No March 20 6:53am Power of Men'S Designer No March 20, 2022 6:53am Advance Directive Response Recorded Date/ Time Advance Directives on File No 2022 10:58am Name of Medical Power of Men'S Designer jamir jones usband July 11, 2022 10:58am Advance Directives Yes June 10:58am Living Will Yes July 11 10:58am Power of Men'S Designer Yes July 11, 2022 10:58am Advance Directive Response Recorded Date/ Time Advance Directives on File No Hossein sarkar 2022 11:58am Name of Medical Power of Men'S Designer jamir jones usband July 11, 2022 11:58am Advance Directives Yes June 11:58am Living Will Yes July 11 11:58am Power of Men'S Designer Yes July 11, 2022 11:58am Advance Directive Response Recorded Date/ Time Advance Directives Yes June 11:58am Living Will Yes July 11 11:58am Power of Men'S Designer Yes July 11, 2022 11:58am Advance Directive Response Recorded Date/ Time Name of Medical Power of Men'S Designer RIVERA -SPOUSE March 21, 2023 9:38am Advance Directives Yes June 11:58am Living Will Yes March 21 9:38am Power of Men'S Designer Yes March 21, 2023 9:38am Advance Directive Response Recorded Date/ Time Name of Medical Power of Men'S Designer RIVERA -SPOUSE March 21, 2023 8:38am Advance Directives Yes June 10:58am Living Will No April 08 9:51pm Power of Men'S Designer No April 08, 2023 9:51pm Advance Directive Response Recorded Date/ Time Advance Directives Yes June 11:58am Living Will No April 08 10:51pm Power of Men'S Designer No April 08, 2023 10:51pm Advance Directive Response Recorded Date/ Time Living Will No September 15, 2024 8:29am Do you have a Healthcare Power of Men'S Designer? No September 15, 2024 8:29am Advance Directives on File Yes October 022024 7:31am Living Will Yes October 02, 2024 7: 31am Do you have a Healthcare Power of Men'S Designer? Yes October 02, 2024 7:31am Name of Medical Power of Men'S Designer jamir October 02, 2024 7:31am Advance Directives Yes October 02, 2024 7:31am Advance Directive Response Recorded Date/ Time Living Will No September 15, 2024 8:29am Do you have a Healthcare Power of Men'S Designer? No September 15, 2024 8:29am Advance Directives on File Yes October 022024 7:31am Living Will Yes October 02, 2024 7: 31am Do you have a Healthcare Power of Men'S Designer? Yes October 02, 2024 7:31am Name of Medical Power of Men'S Designer jamir October 02, 2024 7:31am Advance Directives Yes October 02, 2024 7:31am Do you have a Healthcare Power of Men'S Designer? 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 Patient Housing Liaison Expl anation Advance Directives and Living Will 01/22/2025 not on file Date Activated Date Inactivated Comments 01/21/2025 3:55 PM Chief Complaint and Reason for Visit Chief Complaint 1YR LABS ONC/HEM SCREENING Reason for Visit Ovarian cancer Ovarian cancer Chief Complaint 1YR LABS ONC/HEM SCREENING 6 M FU E ORDERS Reason for Visit Ovarian cancer Ovarian cancer Chest heaviness Dyspnea Fatigue Atherosclerotic heart disease of 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 coronary artery without angina pectoris Essential hypertension Paroxysmal atrial fibrillation Pure hypercholesterolemia Chief Complaint SCREENING 6 M FU E ORDERS CAD LEXISCAN Reason for Visit Chest heaviness Dyspnea Fatigue Atherosclerotic heart disease of 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 coronary artery without angina pectoris Essential hypertension Paroxysmal atrial fibrillation Pure hypercholesterolemia Chief Complaint 6 M FU E ORDERS CAD LEXISCAN chest pain 3 M FU E ORDER Reason for Visit Chest heaviness Dyspnea Fatigue Atherosclerotic heart disease of 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 coronary artery without angina pectoris Essential hypertension Paroxysmal atrial fibrillation Pure hypercholesterolemia Dyspnea Fatigue Atherosclerotic heart disease of 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 coronary artery without angina pectoris Essential hypertension Paroxysmal atrial fibrillation Pure hypercholesterolemia Chief Complaint 6 M FU E ORDERS CAD LEXISCAN chest pain 3 M FU E ORDER DYSPNEA DYSPNEA Reason for Visit Chest heaviness Dyspnea Fatigue Atherosclerotic heart disease of 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 coronary artery without angina pectoris Essential hypertension Paroxysmal atrial fibrillation Pure hypercholesterolemia Dyspnea Fatigue Atherosclerotic heart disease of 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 coronary artery without angina pectoris Essential hypertension Paroxysmal atrial fibrillation Pure hypercholesterolemia Chief Complaint CAD LEXISCAN chest pain 3 M FU E ORDER DYSPNEA DYSPNEA STAT LABS CCF sob Reason for Visit Dyspnea Fatigue Atherosclerotic heart disease of 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 coronary artery without angina pectoris Essential hypertension Paroxysmal atrial fibrillation Pure hypercholesterolemia Chief Complaint CAD LEXISCAN chest pain 3 M FU E ORDER DYSPNEA DYSPNEA STAT LABS CCF sob 6 wk FU E ORDER Reason for Visit Dyspnea Fatigue Atherosclerotic heart disease of 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 coronary artery without angina pectoris Essential hypertension Paroxysmal atrial fibrillation Pure hypercholesterolemia Dyspnea Fatigue Atherosclerotic heart disease of 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 coronary artery without angina pectoris Essential hypertension Paroxysmal atrial fibrillation Pure hypercholesterolemia Chief Complaint 3 M FU E ORDER DYSPNEA DYSPNEA STAT LABS CCF sob 6 wk FU E ORDER 6 wk FU ATRIAL FIBRILLATION Reason for Visit Dyspnea Fatigue Atherosclerotic heart disease of 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 coronary artery without angina pectoris Essential hypertension Paroxysmal atrial fibrillation Pure hypercholesterolemia Dyspnea Fatigue Atherosclerotic heart disease of 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 coronary artery without angina pectoris Essential hypertension Paroxysmal atrial fibrillation Pure hypercholesterolemia Dyspnea Fatigue Atherosclerotic heart disease of 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 coronary artery without angina pectoris Essential hypertension Paroxysmal atrial fibrillation Pure hypercholesterolemia Chief Complaint 3 M FU E ORDER DYSPNEA DYSPNEA STAT LABS CCF sob 6 wk FU E ORDER 6 wk FU ATRIAL FIBRILLATION NEED ORDER Reason for Visit Dyspnea Fatigue Atherosclerotic heart disease of 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 coronary artery without angina pectoris Essential hypertension Paroxysmal atrial fibrillation Pure hypercholesterolemia Dyspnea Fatigue Atherosclerotic heart disease of 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 coronary artery without angina pectoris Essential hypertension Paroxysmal atrial fibrillation Pure hypercholesterolemia Dyspnea Fatigue Atherosclerotic heart disease of 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 coronary artery without angina pectoris Essential hypertension Paroxysmal atrial fibrillation Pure hypercholesterolemia Chief Complaint 3 M FU E ORDER DYSPNEA DYSPNEA STAT LABS CCF sob 6 wk FU E ORDER 6 wk FU ATRIAL FIBRILLATION NEED ORDER INT LABS Reason for Visit Dyspnea Fatigue Atherosclerotic heart disease of 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 coronary artery without angina pectoris Essential hypertension Paroxysmal atrial fibrillation Pure hypercholesterolemia Dyspnea Fatigue Atherosclerotic heart disease of 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 coronary artery without angina pectoris Essential hypertension Paroxysmal atrial fibrillation Pure hypercholesterolemia Dyspnea Fatigue Atherosclerotic heart disease of 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 coronary artery without angina pectoris Essential hypertension Paroxysmal atrial fibrillation Pure hypercholesterolemia Chief Complaint STAT LABS CCF sob 6 wk FU E ORDER 6 wk FU ATRIAL FIBRILLATION NEED ORDER INT LABS INT LABS 6 M FU Reason for Visit Dyspnea Fatigue Atherosclerotic heart disease of 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 coronary artery without angina pectoris Essential hypertension Paroxysmal atrial fibrillation Pure hypercholesterolemia Dyspnea Fatigue Atherosclerotic heart disease of 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 coronary artery without angina pectoris Essential hypertension Paroxysmal atrial fibrillation Pure hypercholesterolemia Dyspnea Atherosclerotic heart disease of 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 coronary artery without angina pectoris Essential hypertension Paroxysmal atrial fibrillation Pure hypercholesterolemia Chief Complaint 6 wk FU ATRIAL FIBRILLATION NEED ORDER INT LABS INT LABS 6 M FU 1 MO (UPDATE H&P) E ORDER NEED ORDER FROM DOE MARTINEZ Reason for Visit Dyspnea Fatigue Atherosclerotic heart disease of 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 coronary artery without angina pectoris Essential hypertension Paroxysmal atrial fibrillation Pure hypercholesterolemia Dyspnea Atherosclerotic heart disease of 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 coronary artery without angina pectoris Essential hypertension Paroxysmal atrial fibrillation Pure hypercholesterolemia Dyspnea Atherosclerotic heart disease of 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 coronary artery without angina pectoris Essential hypertension Paroxysmal atrial fibrillation Pure hypercholesterolemia Chief Complaint ATRIAL FIBRILLATION NEED ORDER INT LABS INT LABS 6 M FU 1 MO (UPDATE H&P) E ORDER NEED ORDER FROM DOE MARTINEZ 1YR LABS Atrial fibrillation AFIB Atrial fibrillation Atrial fibrillation Reason for Visit Dyspnea Atherosclerotic heart disease of 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 coronary artery without angina pectoris Essential hypertension Paroxysmal atrial fibrillation Pure hypercholesterolemia Dyspnea Atherosclerotic heart disease of 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 coronary artery without angina pectoris Essential hypertension Paroxysmal atrial fibrillation Pure hypercholesterolemia Ovarian cancer Paroxysmal atrial fibrillation Chief Complaint NEED ORDER INT LABS INT LABS 6 M FU 1 MO (UPDATE H&P) E ORDER NEED ORDER FROM DOE MARTINEZ 1YR LABS Atrial fibrillation AFIB Atrial fibrillation Atrial fibrillation 1 wk s/p DCCV E ORDER EORDER Reason for Visit Dyspnea Atherosclerotic heart disease of 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 coronary artery without angina pectoris Essential hypertension Paroxysmal atrial fibrillation Pure hypercholesterolemia Dyspnea Atherosclerotic heart disease of 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 coronary artery without angina pectoris Essential hypertension Paroxysmal atrial fibrillation Pure hypercholesterolemia Ovarian cancer Paroxysmal atrial fibrillation Chief Complaint INT LABS INT LABS 6 M FU 1 MO (UPDATE H&P) E ORDER NEED ORDER FROM DOE MARTINEZ 1YR LABS Atrial fibrillation AFIB Atrial fibrillation Atrial fibrillation 1 wk s/p DCCV E ORDER EORDER Reason for Visit Dyspnea Atherosclerotic heart disease of 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 coronary artery without angina pectoris Essential hypertension Paroxysmal atrial fibrillation Pure hypercholesterolemia Dyspnea Atherosclerotic heart disease of 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 coronary artery without angina pectoris Essential hypertension Paroxysmal atrial fibrillation Pure hypercholesterolemia Ovarian cancer Paroxysmal atrial fibrillation Chief Complaint INT LABS INT LABS 6 M FU 1 MO (UPDATE H&P) E ORDER NEED ORDER FROM DOE MARTINEZ 1YR LABS Atrial fibrillation AFIB Atrial fibrillation Atrial fibrillation 1 wk s/p DCCV E ORDER EORDER E ORDER Reason for Visit Dyspnea Atherosclerotic heart disease of 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 coronary artery without angina pectoris Essential hypertension Paroxysmal atrial fibrillation Pure hypercholesterolemia Dyspnea Atherosclerotic heart disease of 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 coronary artery without angina pectoris Essential hypertension Paroxysmal atrial fibrillation Pure hypercholesterolemia Ovarian cancer Paroxysmal atrial fibrillation Chief Complaint INT LABS INT LABS 6 M FU 1 MO (UPDATE H&P) E ORDER NEED ORDER FROM DOE MARTINEZ 1YR LABS Atrial fibrillation AFIB Atrial fibrillation Atrial fibrillation 1 wk s/p DCCV E ORDER EORDER E ORDER 6 wk FU s/p Cardiovert E ORDER Reason for Visit Dyspnea Atherosclerotic heart disease of 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 coronary artery without angina pectoris Essential hypertension Paroxysmal atrial fibrillation Pure hypercholesterolemia Dyspnea Atherosclerotic heart disease of 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 coronary artery without angina pectoris Essential hypertension Paroxysmal atrial fibrillation Pure hypercholesterolemia Ovarian cancer Paroxysmal atrial fibrillation Dyspnea Atherosclerotic heart disease of 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 coronary artery without angina pectoris Essential hypertension Paroxysmal atrial fibrillation Pure hypercholesterolemia Chief Complaint 6 m fu PREV PFM PT E ORDERS Reason for Visit Atrial fibrillation Coronary artery disease Dyslipidemia H/O coronary artery bypass surgery History of pulmonary embolism Hypertension Stented coronary artery Chief Complaint 6 m fu PREV PFM PT E ORDERS sob Reason for Visit Atrial fibrillation Coronary artery disease Dyslipidemia H/O coronary artery bypass surgery History of pulmonary embolism Hypertension Stented coronary artery Chief Complaint 6 m fu PREV PFM PT E ORDERS sob CHEST PAIN Reason for Visit Atrial fibrillation Coronary artery disease Dyslipidemia H/O coronary artery bypass surgery History of pulmonary embolism Hypertension Stented coronary artery Chief Complaint EORDER Chief Complaint Admit Date 6 M FU September 09, 2024 1:4 4pm CHEST PAIN,STARK,CAD September 16, 2024 7:2 3am CHEST PAIN, UNSPECIFIED October 01, 2024 1: 12pm CHEST PAIN, STARK, CAD October 02, 2024 7:12a m Reason for Visit Admit Date Coronary artery disease September 09, 2024 1:44pm Essential hypertension September 09, 2024 1:44pm History of acute myocardial infarction o f anterolateral wall September 09, 2024 1:44pm Paroxysmal atrial fibrillation August 1:44pm Pure hypercholesterolemia September 09 1:44pm Chief Complaint Admit Date 6 M FU September 09, 2024 1:4 4pm CHEST PAIN,STARK,CAD September 16, 2024 7:2 3am CHEST PAIN, UNSPECIFIED October 01, 2024 1: 12pm CHEST PAIN, STARK, CAD October 02, 2024 7:12a m SOB October 06, 2024 12:09 pm Health Concerns Infection Onset Date Last Indicated [...] unspecified type Procedures CONSULT TO UROLOGY Charles Chavez, [employer] [address] [place] [address] Referral ID Status Reason Start Date Expiration Date Visits Requested Visits Authorized [id number] Ref Not Required PCP Requested Referral 12/04/2022 12/04/2023 1 1 Additional Source Comments INFORMATION SOURCE (unrecogn ized section and content) DATE CREATED AUTHOR 06/05/2019 [facility] DATE CREATED AUTHOR AUTHOR'S ORGANIZ ATION 04/08/2020 [facility] DATE CREATED AUTHOR AUTHOR'S ORGANIZ ATION 10/23/2024 [facility] DATE CREATED AUTHOR AUTHOR'S ORGANIZ ATION 12/04/2024 [facility] DATE CREATED AUTHOR AUTHOR'S ORGANIZ ATION 12/09/2024 [facility] DATE CREATED AUTHOR AUTHOR'S ORGANIZ ATION 12/10/2024 [facility] DATE CREATED AUTHOR AUTHOR'S ORGANIZ ATION 01/22/2025 [facility] DATE CREATED AUTHOR [facility] Comments (unrecognize d section and content) In the event this informatio n is protected by the Federal Confidentiality of Alcohol and Drug Abuse Patient Records regulations: The Federal rules restrict any use of the information to criminally investigate or prosecute any alcohol or drug abuse patient.[facility] the event this information is protected by the Federal Confidentiality of Alcohol and Drug Abuse Patient Records regulations: The Federal rules restrict any use of the information to criminally investigate or prosecute any alcohol or drug abuse patient.[facility] SystemIn the event this information is protected by the Federal Confidentiality of Alcohol and Drug Abuse Patient Records regulations: The Federal rules restrict any use of the information to criminally investigate or prosecute any alcohol or drug abuse patient.[facility] SystemIn the event this information is protected by the Federal Confidentiality of Alcohol and Drug Abuse Patient Records regulations: The Federal rules restrict any use of the information to criminally investigate or prosecute any alcohol or drug abuse patient.[facility] SystemIn the event this information is protected by the Federal Confidentiality of Alcohol and Drug Abuse Patient Records regulations: The Federal rules restrict any use of the information to criminally investigate or prosecute any alcohol or drug abuse patient.[facility] SystemIn the event this information is protected by the Federal Confidentiality of Alcohol and Drug Abuse Patient Records regulations: The Federal rules restrict any use of the information to criminally investigate or prosecute any alcohol or drug abuse patient.[facility] SystemIn the event this information is protected by the Federal Confidentiality of Alcohol and Drug Abuse Patient Records regulations: The Federal rules restrict any use of the information to criminally investigate or prosecute any alcohol or drug abuse patient.[facility] SystemIn the event this information is protected by the Federal Confidentiality of Alcohol and Drug Abuse Patient Records regulations: The Federal rules restrict any use of the information to criminally investigate or prosecute any alcohol or drug abuse patient.[facility] SystemIn the event this information is protected by the Federal Confidentiality of Alcohol and Drug Abuse Patient Records regulations: The Federal rules restrict any use of the information to criminally investigate or prosecute any alcohol or drug abuse patient.[facility] SystemIn the event this information is protected by the Federal Confidentiality of Alcohol and Drug Abuse Patient Records regulations: The Federal rules restrict any use of the information to criminally investigate or prosecute any alcohol or drug abuse patient.[facility] SystemIn the event this information is protected by the Federal Confidentiality of Alcohol and Drug Abuse Patient Records regulations: The Federal rules restrict any use of the information to criminally investigate or prosecute any alcohol or drug abuse patient.[facility] SystemIn the event this information is protected by the Federal Confidentiality of Alcohol and Drug Abuse Patient Records regulations: The Federal rules restrict any use of the information to criminally investigate or prosecute any alcohol or drug abuse patient.[facility] SystemIn the event this information is protected by the Federal Confidentiality of Alcohol and Drug Abuse Patient Records regulations: The Federal rules restrict any use of the information to criminally investigate or prosecute any alcohol or drug abuse patient.[facility] SystemIn the event this information is protected by the Federal Confidentiality of Alcohol and Drug Abuse Patient Records regulations: The Federal rules restrict any use of the information to criminally investigate or prosecute any alcohol or drug abuse patient.[facility] SystemIn the event this information is protected by the Federal Confidentiality of Alcohol and Drug Abuse Patient Records regulations: The Federal rules restrict any use of the information to criminally investigate or prosecute any alcohol or drug abuse patient.[facility] SystemIn the event this information is protected by the Federal Confidentiality of Alcohol and Drug Abuse Patient Records regulations: The Federal rules restrict any use of the information to criminally investigate or prosecute any alcohol or drug abuse patient.[facility] SystemIn the event this information is protected by the Federal Confidentiality of Alcohol and Drug Abuse Patient Records regulations: The Federal rules restrict any use of the information to criminally investigate or prosecute any alcohol or drug abuse patient.[facility] SystemIn the event this information is protected by the Federal Confidentiality of Alcohol and Drug Abuse Patient Records regulations: The Federal rules restrict any use of the information to criminally investigate or prosecute any alcohol or drug abuse patient.[facility] SystemIn the event this information is protected by the Federal Confidentiality of Alcohol and Drug Abuse Patient Records regulations: The Federal rules restrict any use of the information to criminally investigate or prosecute any alcohol or drug abuse patient.[facility] SystemIn the event this information is protected by the Federal Confidentiality of Alcohol and Drug Abuse Patient Records regulations: The Federal rules restrict any use of the information to criminally investigate or prosecute any alcohol or drug abuse patient.[facility] SystemIn the event this information is protected by the Federal Confidentiality of Alcohol and Drug Abuse Patient Records regulations: The Federal rules restrict any use of the information to criminally investigate or prosecute any alcohol or drug abuse patient.[facility] SystemIn the event this information is protected by the Federal Confidentiality of Alcohol and Drug Abuse Patient Records regulations: The Federal rules restrict any use of the information to criminally investigate or prosecute any alcohol or drug abuse patient.[facility] SystemIn the event this information is protected by the Federal Confidentiality of Alcohol and Drug Abuse Patient Records regulations: The Federal rules restrict any use of the information to criminally investigate or prosecute any alcohol or drug abuse patient.[facility] SystemIn the event this information is protected by the Federal Confidentiality of Alcohol and Drug Abuse Patient Records regulations: The Federal rules restrict any use of the information to criminally investigate or prosecute any alcohol or drug abuse patient.[facility] SystemIn the event this information is protected by the Federal Confidentiality of Alcohol and Drug Abuse Patient Records regulations: The Federal rules restrict any use of the information to criminally investigate or prosecute any alcohol or drug abuse patient.[facility] SystemIn the event this information is protected by the Federal Confidentiality of Alcohol and Drug Abuse Patient Records regulations: The Federal rules restrict any use of the information to criminally investigate or prosecute any alcohol or drug abuse patient.[facility] SystemIn the event this information is protected by the Federal Confidentiality of Alcohol and Drug Abuse Patient Records regulations: The Federal rules restrict any use of the information to criminally investigate or prosecute any alcohol or drug abuse patient.[facility] SystemIn the event this information is protected by the Federal Confidentiality of Alcohol and Drug Abuse Patient Records regulations: The Federal rules restrict any use of the information to criminally investigate or prosecute any alcohol or drug abuse patient.[facility] SystemIn the event this information is protected by the Federal Confidentiality of Alcohol and Drug Abuse Patient Records regulations: The Federal rules restrict any use of the information to criminally investigate or prosecute any alcohol or drug abuse patient.[facility] SystemIn the event this information is protected by the Federal Confidentiality of Alcohol and Drug Abuse Patient Records regulations: The Federal rules restrict any use of the information to criminally investigate or prosecute any alcohol or drug abuse patient.[facility] SystemIn the event this information is protected by the Federal Confidentiality of Alcohol and Drug Abuse Patient Records regulations: The Federal rules restrict any use of the information to criminally investigate or prosecute any alcohol or drug abuse patient.[facility] SystemIn the event this information is protected by the Federal Confidentiality of Alcohol and Drug Abuse Patient Records regulations: The Federal rules restrict any use of the information to criminally investigate or prosecute any alcohol or drug abuse patient.[facility] SystemIn the event this information is protected by the Federal Confidentiality of Alcohol and Drug Abuse Patient Records regulations: The Federal rules restrict any use of the information to criminally investigate or prosecute any alcohol or drug abuse patient.[facility] SystemIn the event this information is protected by the Federal Confidentiality of Alcohol and Drug Abuse Patient Records regulations: The Federal rules restrict any use of the information to criminally investigate or prosecute any alcohol or drug abuse patient.[facility] SystemIn the event this information is protected by the Federal Confidentiality of Alcohol and Drug Abuse Patient Records regulations: The Federal rules restrict any use of the information to criminally investigate or prosecute any alcohol or drug abuse patient.[facility] SystemIn the event this information is protected by the Federal Confidentiality of Alcohol and Drug Abuse Patient Records regulations: The Federal rules restrict any use of the information to criminally investigate or prosecute any alcohol or drug abuse patient.[facility] SystemIn the event this information is protected by the Federal Confidentiality of Alcohol and Drug Abuse Patient Records regulations: The Federal rules restrict any use of the information to criminally investigate or prosecute any alcohol or drug abuse patient.[facility] SystemIn the event this information is protected by the Federal Confidentiality of Alcohol and Drug Abuse Patient Records regulations: The Federal rules restrict any use of the information to criminally investigate or prosecute any alcohol or drug abuse patient.[facility] SystemIn the event this information is protected by the Federal Confidentiality of Alcohol and Drug Abuse Patient Records regulations: The Federal rules restrict any use of the information to criminally investigate or prosecute any alcohol or drug abuse patient.[facility] SystemIn the event this information is protected by the Federal Confidentiality of Alcohol and Drug Abuse Patient Records regulations: The Federal rules restrict any use of the information to criminally investigate or prosecute any alcohol or drug abuse patient.[facility] SystemIn the event this information is protected by the Federal Confidentiality of Alcohol and Drug Abuse Patient Records regulations: The Federal rules restrict any use of the information to criminally investigate or prosecute any alcohol or drug abuse patient.[facility] SystemIn the event this information is protected by the Federal Confidentiality of Alcohol and Drug Abuse Patient Records regulations: The Federal rules restrict any use of the information to criminally investigate or prosecute any alcohol or drug abuse patient.[facility] SystemIn the event this information is protected by the Federal Confidentiality of Alcohol and Drug Abuse Patient Records regulations: The Federal rules restrict any use of the information to criminally investigate or prosecute any alcohol or drug abuse patient.[facility] SystemIn the event this information is protected by the Federal Confidentiality of Alcohol and Drug Abuse Patient Records regulations: The Federal rules restrict any use of the information to criminally investigate or prosecute any alcohol or drug abuse patient.[facility] SystemIn the event this information is protected by the Federal Confidentiality of Alcohol and Drug Abuse Patient Records regulations: The Federal rules restrict any use of the information to criminally investigate or prosecute any alcohol or drug abuse patient.[facility] SystemIn the event this information is protected by the Federal Confidentiality of Alcohol and Drug Abuse Patient Records regulations: The Federal rules restrict any use of the information to criminally investigate or prosecute any alcohol or drug abuse patient.[facility] SystemIn the event this information is protected by the Federal Confidentiality of Alcohol and Drug Abuse Patient Records regulations: The Federal rules restrict any use of the information to criminally investigate or prosecute any alcohol or drug abuse patient.[facility] SystemIn the event this information is protected by the Federal Confidentiality of Alcohol and Drug Abuse Patient Records regulations: The Federal rules restrict any use of the information to criminally investigate or prosecute any alcohol or drug abuse patient.[facility] SystemIn the event this information is protected by the Federal Confidentiality of Alcohol and Drug Abuse Patient Records regulations: The Federal rules restrict any use of the information to criminally investigate or prosecute any alcohol or drug abuse patient.[facility] SystemIn the event this information is protected by the Federal Confidentiality of Alcohol and Drug Abuse Patient Records regulations: The Federal rules restrict any use of the information to criminally investigate or prosecute any alcohol or drug abuse patient.[facility] SystemIn the event this information is protected by the Federal Confidentiality of Alcohol and Drug Abuse Patient Records regulations: The Federal rules restrict any use of the information to criminally investigate or prosecute any alcohol or drug abuse patient.[facility] SystemIn the event this information is protected by the Federal Confidentiality of Alcohol and Drug Abuse Patient Records regulations: The Federal rules restrict any use of the information to criminally investigate or prosecute any alcohol or drug abuse patient.[facility] SystemIn the event this information is protected by the Federal Confidentiality of Alcohol and Drug Abuse Patient Records regulations: The Federal rules restrict any use of the information to criminally investigate or prosecute any alcohol or drug abuse patient.[facility] SystemIn the event this information is protected by the Federal Confidentiality of Alcohol and Drug Abuse Patient Records regulations: The Federal rules restrict any use of the information to criminally investigate or prosecute any alcohol or drug abuse patient.[facility] SystemIn the event this information is protected by the Federal Confidentiality of Alcohol and Drug Abuse Patient Records regulations: The Federal rules restrict any use of the information to criminally investigate or prosecute any alcohol or drug abuse patient.[facility] SystemIn the event this information is protected by the Federal Confidentiality of Alcohol and Drug Abuse Patient Records regulations: The Federal rules restrict any use of the information to criminally investigate or prosecute any alcohol or drug abuse patient.[facility] SystemIn the event this information is protected by the Federal Confidentiality of Alcohol and Drug Abuse Patient Records regulations: The Federal rules restrict any use of the information to criminally investigate or prosecute any alcohol or drug abuse patient.[facility] SystemIn the event this information is protected by the Federal Confidentiality of Alcohol and Drug Abuse Patient Records regulations: The Federal rules restrict any use of the information to criminally investigate or prosecute any alcohol or drug abuse patient.[facility] SystemIn the event this information is protected by the Federal Confidentiality of Alcohol and Drug Abuse Patient Records regulations: The Federal rules restrict any use of the information to criminally investigate or prosecute any alcohol or drug abuse patient.[facility] SystemIn the event this information is protected by the Federal Confidentiality of Alcohol and Drug Abuse Patient Records regulations: The Federal rules restrict any use of the information to criminally investigate or prosecute any alcohol or drug abuse patient.[facility] SystemIn the event this information is protected by the Federal Confidentiality of Alcohol and Drug Abuse Patient Records regulations: The Federal rules restrict any use of the information to criminally investigate or prosecute any alcohol or drug abuse patient.[facility] SystemIn the event this information is protected by the Federal Confidentiality of Alcohol and Drug Abuse Patient Records regulations: The Federal rules restrict any use of the information to criminally investigate or prosecute any alcohol or drug abuse patient.[facility] SystemIn the event this information is protected by the Federal Confidentiality of Alcohol and Drug Abuse Patient Records regulations: The Federal rules restrict any use of the information to criminally investigate or prosecute any alcohol or drug abuse patient.[facility] SystemIn the event this information is protected by the Federal Confidentiality of Alcohol and Drug Abuse Patient Records regulations: The Federal rules restrict any use of the information to criminally investigate or prosecute any alcohol or drug abuse patient.[facility] SystemIn the event this information is protected by the Federal Confidentiality of Alcohol and Drug Abuse Patient Records regulations: The Federal rules restrict any use of the information to criminally investigate or prosecute any alcohol or drug abuse patient.[facility] SystemIn the event this information is protected by the Federal Confidentiality of Alcohol and Drug Abuse Patient Records regulations: The Federal rules restrict any use of the information to criminally investigate or prosecute any alcohol or drug abuse patient.[facility] SystemIn the event this information is protected by the Federal Confidentiality of Alcohol and Drug Abuse Patient Records regulations: The Federal rules restrict any use of the information to criminally investigate or prosecute any alcohol or drug abuse patient.[facility] SystemIn the event this information is protected by the Federal Confidentiality of Alcohol and Drug Abuse Patient Records regulations: The Federal rules restrict any use of the information to criminally investigate or prosecute any alcohol or drug abuse patient.[facility] SystemIn the event this information is protected by the Federal Confidentiality of Alcohol and Drug Abuse Patient Records regulations: The Federal rules restrict any use of the information to criminally investigate or prosecute any alcohol or drug abuse patient.[facility] SystemIn the event this information is protected by the Federal Confidentiality of Alcohol and Drug Abuse Patient Records regulations: The Federal rules restrict any use of the information to criminally investigate or prosecute any alcohol or drug abuse patient.[facility] SystemIn the event this information is protected by the Federal Confidentiality of Alcohol and Drug Abuse Patient Records regulations: The Federal rules restrict any use of the information to criminally investigate or prosecute any alcohol or drug abuse patient.[facility] Reason for Visit (unrecogniz ed section and content) Reason Comments Orders protime Reason Comments Anticoagulation Reason Comments Refill Request [...] Request 03/14/2023 Reason Comments F/U 6 Month Reason Comments 6 Month Exam Reason Onset Date Comments Refill Request 03/20/2024 Reason Onset Date Comments Refill Request 04/03/2024 Reason Comments UTI Burning, urgency, fr equency, low back pain x1 day Reason Comments Follow-up Cardiomyopathy Specialty Diagnoses / Procedures Referred By Contac t Referred To Contact Cardiology Diagnoses Cardiomyopathy, unspecified (HCC) Procedures NC OFFICE/OUTPATIENT ESTABLISHED MOD MDM 30 MIN Krys Cedillo MD [address] [facility] [address] [place] [id number] Phone: tel: fax: Maggie Huggins MD [address] [place] [address] Phone: tel: fax: Referral ID Status Reason Start Date Expiration Date Visits Re quested Visits Authorized [id number] Closed 10/10/2024 10/10/2025 1 1 Reason Onset Date Comments Labs Only 11/17/2024 Labs completed Reason Onset Date Comments Procedure 11/11/2024 Reason Onset Date Comments Dizziness 11/28/2024 Reason Onset Date Comments Error (VOID this visit) 11/28/2024 Reason Comments Irregular Heart Beat Pt was at dr. Lexus love and having an episode of afib. Hx of afib, takes blood thinner, recent cardioversion Reason Comments Follow-up Atrial Fibrillation Congestive Heart Failure Reason Onset Date Comments Other 12/03/2024 Transfer of care Reason Comments handicap placard renewal rx Reason Comments Initial Visit (Intake) Specialty Diagnoses / Procedures Referred By Serene vidales Referred To Contact Cardiology Diagnoses Palpitation Maggie Huggins MD [address] [place] [address] Phone: tel: fax: Referral ID Status Reason Start Date Expiration Date Visits Re quested Visits Authorized [id number] Closed 12/08/2024 12/08/2025 1 1 Reason Comments Initial Visit (Intake) Afib discuss Rhyt hm control Specialty Diagnoses / Procedures Referred By Serene vidales Referred To Contact Cardiology Diagnoses Persistent atrial fibrillation (HCC) Davida Rosa MD [address] [place] [address] Phone: tel: fax: [facility] [address] [place] [address], 3rd [place] [address] Phone: tel: fax: Referral ID Status Reason Start Date Expiration Date Visits Re quested Visits Authorized [id number] Closed 01/05/2025 01/05/2026 1 1 Care Teams (unrecognized sec tion and content) Non Destructive Evaluation Technician Relationship Specialty Start Date End Date Samantha Reyes MD [address] [place], [place] [id number] PCP - General 12/04/07 Non Destructive Evaluation Technician Relationship Specialty Start Date End Date Samantha Reyes MD [address] [place], [place] [id number] PCP - General 12/04/07 Non Destructive Evaluation Technician Relationship Specialty Start Date End Date Samantha Reyes MD [address] [place] [address] PCP - General 12/04/07 Non Destructive Evaluation Technician Relationship Specialty Start Date End Date Samantha Reyes MD [address] [place] [address] PCP - General 12/04/07 Non Destructive Evaluation Technician Relationship Specialty Start Date End Date Samantha Reyes MD [address] [place] [address] PCP - General 12/04/07 Non Destructive Evaluation Technician Relationship Specialty Start Date End Date Samantha Reyes MD [address] [place] [address] PCP - General 12/04/07 Non Destructive Evaluation Technician Relationship Specialty Start Date End Date Samantha Reyes MD [address] [place] [address] PCP - General 12/04/07 Non Destructive Evaluation Technician Relationship Specialty Start Date End Date Samantha Reyes MD [address] [place] [address] PCP - General 12/04/07 Non Destructive Evaluation Technician Relationship Specialty Start Date End Date Samantha Reyes MD [address] [place] [address] PCP - General 12/04/07 Non Destructive Evaluation Technician Relationship Specialty Start Date End Date Samantha Reyes MD [address] [place] [address] PCP - General 12/04/07 Non Destructive Evaluation Technician Relationship Specialty Start Date End Date Samantha Reyes MD [address] [place] [address] PCP - General 12/04/07 Non Destructive Evaluation Technician Relationship Specialty Start Date End Date Samantha Reyes MD [address] [place] [address] PCP - General 12/04/07 Non Destructive Evaluation Technician Relationship Specialty Start Date End Date Samantha Reyes MD [address] [place] [address] PCP - General 12/04/07 Non Destructive Evaluation Technician Relationship Specialty Start Date End Date Samantha Reyes MD [address] [place] [address] PCP - General 12/04/07 Team Status: Active Member Role Status Dates Dr. Samantha Reyes MD Family Provider Active Dr. Samantha Reyes MD Primary Care Provider Active Team Status: Inactive Member Role Status Dates Dr. Samantha Reyes MD Primary Care Provider, Referr ing Provider Active Doe Martinez NETWORK OPERATIONS ANALYST, NETWORK OPERATIONS ANALYST-C Attending Provider Active Team Status: Active Member Role Status Dates Dr. Samantha Reyes MD Primary Care Provider, Attend ing Provider Active Team Status: Inactive Member Role Status Dates Dr. Samantha Reyes MD Primary Care Provider Active Dr. Reed Waite MD Attending Provider, Referring Provider Active Team Status: Inactive Member Role Status Dates Dr. Samantha Reyes MD Primary Care Provider Active Dr. Reed Waite MD Attending Provider Active Dr. Reed Waite MD Referring Provider Active Team Status: Inactive Member Role Status Dates Dr. Samantha Reyes MD Primary Care Provider Active Dr. Reed Waite MD Attending Provider Active Team Status: Inactive Member Role Status Dates Dr. Samantha Reyes MD Primary Care Provider Active Doe Martinez NETWORK OPERATIONS ANALYST, NETWORK OPERATIONS ANALYST-C Attending Provider Active Team Status: Active Member Role Status Dates Dr. Samantha Reyes MD Primary Care Provider Active Doe Martinez NETWORK OPERATIONS ANALYST, NETWORK OPERATIONS ANALYST-C Attending Provider Active Dr. Keegan German MD Other Provider Active Team Status: Inactive Member Role Status Dates Dr. Samantha Reyes MD Primary Care Provider, Referr ing Provider Active Dr. Keegan German MD Attending Provider Active Team Status: Active Member Role Status Dates Dr. Samantha Reyes MD Primary Care Provider Active Dr. Reed Waite MD Attending Provid er, Referring Provider, Other Provider Active Team Status: Active Member Role Status Dates Dr. Samantha Reyes MD Primary Care Provider Active Dr. Reed Waite MD Referring Provider, Other Prov ider Active Dr. Santiago Peña MD Attending Provider Active Team Status: Inactive Member Role Status Dates Dr. Samantha Reyes MD Primary Care Provider Active Doe Martinez NETWORK OPERATIONS ANALYST, NETWORK OPERATIONS ANALYST-C Attending Provider Active Dr. Keegan German MD Other Provider Active Team Status: Inactive Member Role Status Dates Dr. Samantha Reyes MD Primary Care Provider Active Dr. Keegan German MD Attending Provider Active Team Status: Inactive Member Role Status Dates Dr. Samantha Reyes MD Primary Care Provider, Referr ing Provider Active Nancy Leblanc Attending Provider Active Team Status: Active Member Role Status Dates Dr. Samantha Reyes MD Primary Care Provider Active Doe Martinez NETWORK OPERATIONS ANALYST, NETWORK OPERATIONS ANALYST-C Attending Provider Active Team Status: Inactive Member Role Status Dates Dr. Samantha Reyes MD Primary Care Provider Active Doe Martinez NETWORK OPERATIONS ANALYST, NETWORK OPERATIONS ANALYST-C Attending Provider, Referring P rovider Active Non Destructive Evaluation Technician Relationship Specialty Start Date End Date Samantha Reyes MD [address] [place] [address] PCP - General 12/04/07 Non Destructive Evaluation Technician Relationship Specialty Start Date End Date Samantha Reyes MD [address] [place], [place] [address] PCP - General 12/04/07 Team Status: Inactive Member Role Status Dates Dr. Samantha Reyes MD Primary Care Provider, Referr ing Provider Active Dr. Gorge Naik MD Attending Provider Active Team Status: Inactive Member Role Status Dates Dr. Samantha Reyes MD Primary Care Provider Active Dr. Gorge Naik MD Attending Provider, Referring Pr ovider Active Non Destructive Evaluation Technician Relationship Specialty Start Date End Date Samantha Reyes MD [address] [place] [address] PCP - General 12/04/07 Non Destructive Evaluation Technician Relationship Specialty Start Date End Date Samantha Reyes MD [address] [place] [address] PCP - General 12/04/07 Non Destructive Evaluation Technician Relationship Specialty Start Date End Date Samantha Reyes MD [address] [place] [address] PCP - General 12/04/07 Team Status: Inactive Member Role Status Dates Dr. Samantha Reyes MD Primary Care Provider Active Dr. Patrick Schneider MD Emergency Provider Active Team Status: Inactive Member Role Status Dates Dr. Samantha Reyes MD Primary Care Provider Active Dr. Patrick Schneider MD Attending Provider, Emergency Provider Active Team Status: Inactive Member Role Status Dates Dr. Samantha Reyes MD Primary Care Provider Active Dr. Marizol Frey MD Emergency Provider Active Non Destructive Evaluation Technician Relationship Specialty Start Date End Date Samantha Reyes MD [address] [place] [address] PCP - General 12/04/07 Non Destructive Evaluation Technician Relationship Specialty Start Date End Date Samantha Reyes MD [address] [place] [address] PCP - General 12/04/07 Team Status: Inactive Member Role Status Dates Dr. Samantha Reyes MD Primary Care Provider Active Shila VANN, [place] Attending Provider, Referr ing Provider Active Non Destructive Evaluation Technician Relationship Specialty Start Date End Date Samantha Reyes MD [address] [place] [address] PCP - General 12/04/07 Non Destructive Evaluation Technician Relationship Specialty Start Date End Date Samantha Reyes MD [address] [place] [address] PCP - General 12/04/07 Non Destructive Evaluation Technician Relationship Specialty Start Date End Date Samantha Reyes MD [address] [place] [address] PCP - General 12/04/07 Non Destructive Evaluation Technician Relationship Specialty Start Date End Date Samantha Reyes MD [address] [place] [address] PCP - General 12/04/07 Non Destructive Evaluation Technician Relationship Specialty Start Date End Date Samantha Reyes MD [address] [place] [address] PCP - General 12/04/07 Non Destructive Evaluation Technician Relationship Specialty Start Date End Date Samantha Reyes MD [address] [place] [address] PCP - General 12/04/07 Non Destructive Evaluation Technician Relationship Specialty Start Date End Date Samantha Reyes MD [address] [place] [address] PCP - General 12/04/07 Non Destructive Evaluation Technician Relationship Specialty Start Date End Date Samantha Reyes MD [address] [place] [address] PCP - General 12/04/07 Non Destructive Evaluation Technician Relationship Specialty Start Date End Date Samantha Reyes MD [address] [place] [address] PCP - General 12/04/07 Non Destructive Evaluation Technician Relationship Specialty Start Date End Date Samantha Reyes MD [address] [place] [address] PCP - General 12/04/07 Faby Snell, CARTON CATCHER.COMMUNICATION SIGNALS INTELLIGENCE [address] [place], [place] [id number] [facility] 05/04/24 Charles Chavez, CARTON CATCHER.COMMUNICATION SIGNALS INTELLIGENCE [address] [place], [place] [address] [facility] 05/13/24 Team Status: Active Member Role Status Dates Dr. Samantha Reyes MD Primary Care Provider Active Team Status: Inactive Member Role Status Dates Dr. Samantha Reyes MD Primary Care Provider Active Start: September 09, 2024 End: September 09, 2024 Dr. Samantha Reyes MD Referring Provider Active Start: September 09, 2024 End: September 09, 2024 Dr. Gorge Naik MD Attending Provider Active Start: September 09, 2024 End: September 09, 2024 Team Status: Inactive Member Role Status Dates Dr. Samantha Reyes MD Primary Care Provider Active Start: September 16, 2024 End: September 16, 2024 Dr. Gorge Naik MD Attending Provider Active Start: September 16, 2024 End: September 16, 2024 Dr. Gorge Naik MD Referring Provider Active Start: September 16, 2024 End: September 16, 2024 Team Status: Active Member Role Status Dates Dr. Samantha Reyes MD Primary Care Provider Active Start: October 01, 2024 Dr. Gorge Naki MD Attending Provider Active Start: October 01, 2024 Dr. Gorge Naik MD Referring Provider Active Start: October 01, 2024 Team Status: Active Member Role Status Dates Dr. Samantha Reyes MD Primary Care Provider Active Start: October 01, 2024 Dr. Gorge Naik MD Attending Provider Active Start: October 01, 2024 Team Status: Inactive Member Role Status Dates Dr. Samantha Reyes MD Primary Care Provider Active Start: October 02, 2024 End: October 02, 2024 Dr. Gorge Naik MD Attending Provider Active Start: October 02, 2024 End: October 02, 2024 Dr. Gorge Naik MD Referring Provider Active Start: October 02, 2024 End: October 02, 2024 Team Status: Inactive Member Role Status Dates Dr. Samantha Reyes MD Primary Care Provider Active Start: October 01, 2024 End: October 01, 2024 Dr. Gorge Naik MD Attending Provider Active Start: October 01, 2024 End: October 01, 2024 Dr. Gorge Naik MD Referring Provider Active Start: October 01, 2024 End: October 01, 2024 Non Destructive Evaluation Technician Relationship Specialty Start Date End Date Samantha Reyes MD [address] [place] [address] PCP - General 12/04/07 Faby Snell, CARTON CATCHER.COMMUNICATION SIGNALS INTELLIGENCE [address] [place] [address] Sql Database Administrator Family Medicine 05/04/24 Charles Chavez, CARTON CATCHER.[employer]UN[employer]NALS INTELLIGENCE [address] [place] [address] Sql Database Administrator Family Medicine 05/13/24 Non Destructive Evaluation Technician Relationship Specialty Start Date End Date Samantha Reyes [address] [place] [address] PCP - General Family Medicine 10/10/24 Non Destructive Evaluation Technician Relationship Specialty Start Date End Date Samantha Reyes [address] [place] [address] PCP - General Family Medicine 10/10/24 Non Destructive Evaluation Technician Relationship Specialty Start Date End Date Samantha Reyes [address] [place] [address] PCP - General Family Medicine 10/10/24 Team Status: Inactive Member Role Status Dates Dr. Samantha Reyes MD Primary Care Provider Active Start: October 06, 2024 End: October 06, 2024 Dr. Valdez Toney MD Attending Provider Active Start: October 06, 2024 End: October 06, 2024 Dr. Valdez Toney MD Emergency Provider Active Start: October 06, 2024 End: October 06, 2024 Team Status: Inactive Member Role Status Dates Dr. Samantha Reyes MD Primary Care Provider Active Start: November 17, 2024 End: November 17, 2024 YUDY CHESTER Attending Provider Active Star t: November 17, 2024 End: November 17, 2024 YUDY CHESTER Referring Provider Active Star t: November 17, 2024 End: November 17, 2024 Non Destructive Evaluation Technician Relationship Specialty Start Date End Date Samantha Reyes [address] [place] [address] PCP - General Family Medicine 10/10/24 Non Destructive Evaluation Technician Relationship Specialty Start Date End Date Samantha Reyes [address] [place] [address] PCP - General Family Medicine 10/10/24 Non Destructive Evaluation Technician Relationship Specialty Start Date End Date Samantha Reyes [address] [place] [address] PCP - General Family Medicine 10/10/24 Non Destructive Evaluation Technician Relationship Specialty Start Date End Date Samantha Reyes [address] [place] [address] PCP - General Family Medicine 10/10/24 Non Destructive Evaluation Technician Relationship Specialty Start Date End Date Samantha Reyes [address] [place] [address] PCP - General Family Medicine 10/10/24 Non Destructive Evaluation Technician Relationship Specialty Start Date End Date Samantha Reyes [address] [place] [address] PCP - General Family Medicine 10/10/24 Non Destructive Evaluation Technician Relationship Specialty Start Date End Date Samantha Reyes [address] [place], [place] [address] PCP - General Family Medicine 10/10/24 Non Destructive Evaluation Technician Relationship Specialty Start Date End Date Samantha Reyes [address] [place] [address] PCP - General Family Medicine 10/10/24 Non Destructive Evaluation Technician Relationship Specialty Start Date End Date Samantha Reyes MD [address] [place] [address] PCP - General 12/04/07 Charles Chavez APRN.CNP [address] [place] [id number] Sql Database Administrator Family Medicine 05/13/24 Non Destructive Evaluation Technician Relationship Specialty Start Date End Date Samantha Reyes MD [address] [place] [address] PCP - General Family Medicine 01/05/25 Non Destructive Evaluation Technician Relationship Specialty Start Date End Date Samantha Reyes MD [address] [place] [address] PCP - General Family Medicine 01/05/25 Non Destructive Evaluation Technician Relationship Specialty Start Date End Date Samantha Reyes MD [address] [place] [address] PCP - General Family Medicine 01/05/25 Non Destructive Evaluation Technician Relationship Specialty Start Date End Date Samantha Reyes MD [address] [place] [address] PCP - General Family Medicine 01/05/25 Goals (unrecognized section and content) Goals may be documented in a n alternate sectionGoals may be documented in an alternate sectionGoals may be documented in an alternate sectionGoals may be documented in an alternate sectionGoals may be documented in an alternate sectionGoals may be documented in an alternate sectionGoals may be documented in an alternate sectionGoals may be documented in an alternate sectionGoals may be documented in an alternate sectionGoals may be documented in an alternate sectionGoals may be documented in an alternate sectionGoals may be documented in an alternate sectionGoals may be documented in an alternate sectionGoals may be documented in an alternate sectionGoals may be documented in an alternate sectionGoals may be documented in an alternate sectionGoals may be documented in an alternate sectionGoals may be documented in an alternate sectionGoals may be documented in an alternate sectionGoals may be documented in an alternate sectionGoals may be documented in an alternate sectionGoals may be documented in an alternate sectionGoals may be documented in an alternate sectionGoals may be documented in an alternate sectionGoals may be documented in an alternate sectionGoals may be documented in an alternate sectionGoals may be documented in an alternate section Scheduled Active and Recently Administ ered Medications (unrecognized section and content) Medication Order 11/29/2024 11/30/2024 12/01/2024 sodium chloride 0.9 % bolus 500 mL (COMPLETED) 500 mL, IntraVENous, at 500 mL/hr, Administer over 1 Hours, Once, On Sun12/01/24 at 1810, For 1 dose 1833 (New Bag - Prov ider: Naima Medley LPN)[id number] (Stopped - Provider: Riya Mckeon RN) FOR RECORDS PERTAINING TO PATIENTS WHO ARE [...] BE BASED ON THE PRIMARY CLINICAL RECORDS. [facility]. provides no warranty or guarantee of the accuracy or completeness of information in this document.
[2025-02-08 18:55] VITALS: BMI 26.4
[2025-02-08] MEDS: 0.9% Normal Saline (1000mL) 1,000 ML 1000 ML IV (18:58)
[2025-02-08 19:14] LABS: Hematocrit 39.5 % (37-47); Hemoglobin 12.3 g/dL (12.0-15.0); Immature Granulocytes Count 0.080 X10^3/uL (0.0-0.0); Mean Corp Hgb Conc 31.1 g/dL (32-36); Mean Corpuscular Volume 89.6 fL (81-99); Mean Platelet Vol. 11.4 fl (6.2-12.0); NRBC Flagged by Analyzer 0 % (0-5); Platelet Count 256 K/mm3 (150-450); RBC Distribution Width CV 14.1 % (11.6-14.6); RBC Distribution Width SD 46.4 fl (35.1-43.9); Red Blood Count 4.41 M/mm3 (4.2-5.4); White Blood Count 8.4 K/mm3 (4.4-11.0)
--- NOTE | 2025-02-08 19:15 | RAD_ITS ---
PROCEDURE: CHEST PA AND LATERAL 02/08/2025 REASON FOR EXAM: WEAKNESS TECHNIQUE: Procedure Code: RADCXR Modality: DX Procedure: CHEST PA AND LATERAL COMPARISON: 10/06/2024 FINDINGS: LUNGS AND PLEURA: No focal airspace consolidations. Calcified granulomas bilaterally. No pleural effusion or pneumothorax. The cardiac silhouette is mildly enlarged. The mediastinal contour is normal. 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 AORTA: Calcified thoracic aorta. BONES: No acute osseous abnormality. RAD/Chest PA and Lateral IMPRESSION: NO ACUTE FINDINGS. Reading Location: [id number]
--- NOTE | 2025-02-08 19:15 | RAD_ITS ---
PROCEDURE: KNEE 4 OR MORE VIEWS 02/08/2025 REASON FOR EXAM: LEFT KNEE TRAUMA. Left knee swelling and bruising. TECHNIQUE: Procedure Code: RADKN Modality: DX Procedure: KNEE 4 OR MORE VIEWS Laterality: Left COMPARISON: None. FINDINGS: BONES: No acute fracture or focal osseous lesion. JOINTS: No evidence of joint effusion. Suprapatellar calcific deposits on the lateral view no dislocation. Mild narrowing of the medial compartment and patellofemoral joint. 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 SOFT TISSUES: Vascular calcifications noted. RAD/Knee 4 or More Views IMPRESSION: DEGENERATIVE OSTEOARTHROSIS. NO ACUTE FINDINGS. Reading Location: [id number]
[2025-02-08 19:35] LABS: Troponin T High Sensitivity 44 ng/L (<=14)
[2025-02-08 19:36] LABS: AST(SGOT) 50 U/L (<=31); Alanine Aminotransfer ALT/SGPT 55 U/L (<=34); Albumin, Serum 3.7 g/dL (3.4-4.8); Alkaline Phosphatase 55 U/L (35-104); Anion Gap 15 (5-15); BUN 36 mg/dL (4-19); BUN/Creat Ratio 14.2 RATIO (10-20); Calcium,Total 11.4 mg/dL (7.6-11.0); Carbon Dioxide 16.9 mmol/L (21.0-32.0); Chloride 98 mmol/L (98-108); Estimated Creatinine Clearance 15.92 ml/min (50-250); Globulin 2.6 g/dL (2.2-4.2); Glucose 135 mg/dL (70-99); Potassium 4.5 mmol/L (3.3-5.1)
[2025-02-08 19:50] VITALS: PULSE 79; RESP 16; O2SAT 100
[2025-02-08 19:50] LABS: Mucous, Urine 0 SEEN /hpf (<or=2+); Red Blood Cells-Urine 0 SEEN /hpf (0-5); Squamous Epithelial Cells - UA 0 SEEN /hpf (5-10)
[2025-02-08 19:53] LABS: Color, Urine Yellow (Yellow); Glucose, Dipstick Normal (Normal); Ketone-Dipstick Negative (Negative); Leukocyte Esterase-Dipstick 500 /ul (Negative); Nitrite-Dipstick Negative (Negative); Occult Blood-Urine 150 /ul (Negative); Protein-Dipstick 100 mg/dl (Negative); Specific Gravity, Urine 1.015 (1.002-1.030); Urine Bilirubin Dipstick Negative (Negative)
[2025-02-08 21:00] VITALS: BP 96/57; PULSE 80; RESP 19; O2SAT 99
--- NOTE | 2025-02-08 21:01 | PCM.HP.STD ---
[facility] - General General Date of Admission: 02/08/25 Date of Service: 02/08/25 Chief Complaint: Generalized Weakness and Falls. HPI Narrative SANDRINE RIVERS, is a 84 F with a past medical history of essential hypertension; on amlodipine, carvedilol twice daily, ramipril, metoprolol twice daily, spironolactone and hydrochlorothiazide, hyperlipidemia; on rosuvastatin plus niacin, hypothyroidism; on levothyroxine, overweight; with BMI of 26.4 this admission, former tobacco abuse (quit ~2005), chronic atrial fibrillation (with history of DCCV 2022); on apixaban twice daily, CAD; s/p CABG (1999) with subsequent stents () on BASA and as needed SL NTG, history of aortic stenosis with chronic systolic CHF; LVEF ~35% (10/2024), history of pericardial effusion, history of wide-complex tachycardia, history of DVT/PE; not on anticoagulation and s/p IVC filter with subsequent retrieval, CKD; stage IIIb, OAB; with stress-incontinent on oxybutynin, history of ovarian cancer, history of SBO, GERD on sucralfate AC/HS and OA; s/p back surgery who presents to [facility] ER complaining of generalized weakness and falls. Ms. Rivers reports her symptoms began approximately 1 week prior to admission with a gradual-onset of progressively worsening generalized weakness resulting in multiple falls in that timeframe with patient stating she is falling almost once daily. She denies LOC or significant head injury with her falls. She went on to states she fell in her pantry with a EMS dispatched and paramedics came to help her get up but she declined admission at that time. She admits to persistent mild Left knee pain made worse with activity with bruising. She denies recent illness, fever, chills, runny nose, sore throat, ear pain, abdominal pain, nausea, vomiting, diarrhea, constipation, dysuria, hematuria, headache or rash - but she does admit she has a prescheduled appointment in February at [facility] for possible cardiac ablation. In the ER she was noted to have laboratory evidence of Acute Cystitis; without hematuria complicated by suspected MARYLOU; with elevated serum creatinine of 2.52 mg/dL and eGFR of 18 mL/min (up from her baseline of 2.04 mg/dL with eGFR 24 mL/min on 11/17/2024) in addition to Hypercalcemia of 11.4 mg/dL and mild Hyponatremia of 130 mmol/L both present on admission compounded by clinical evidence of Generalized Weakness with Ambulatory Dysfunction and Frequent Falls. She was then admitted to the PCU for ongoing care for status is expected to extend beyond 2 midnights. [facility] Medical History Aortic stenosis Atrial fibrillation Dyslipidemia Hypertension Coronary artery disease History of cardioversion Anticoagulant long-term use Fatigue Chest heaviness Dyspnea Overactive bladder Pure hypercholesterolemia Essential hypertension Small bowel obstruction Chest pain Chest pain due to CAD Left-sided pyelonephritis History of acute myocardial infarction of anterolateral wall (02/2000) History of pulmonary embolism History of DVT (deep vein thrombosis) Paroxysmal atrial fibrillation Atherosclerotic heart disease of [place] coronary artery without angina pectoris Ovarian cancer ivc filter retreval Pericardial effusion Hypothyroid GERD (gastroesophageal reflux disease) Stress incontinence Pulmonary emboli 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 Ovarian cancer Dyspnea on exertion Wide-complex tachycardia Home Medications ?Medication ?Instructions ?Recorded ?Last Taken ?Type mirabegron 50 mg tablet,extended 50 mg PO DAILY 10/04/21 Unknown History release 24 hr aspirin 81 mg tablet,delayed 81 mg PO DAILY 08/11/22 10/02/24 History release (Adult Low Dose Aspirin) niacin 500 mg tablet,extended 500 mg PO BID #180 tabs 01/19/23 Unknown Rx release 24 hr levothyroxine 125 mcg tablet 125 mcg PO DAILY 02/01/23 Unknown History sucralfate 1 gram tablet 1 g PO QACHS 02/01/23 Unknown History nitroglycerin 0.4 mg sublingual 0.4 mg sublingual Q5M PRN Chest 03/15/23 Unknown Rx tablet Pain #25 tabs calcium carbonate (Calcium 600) 600 mg PO DAILY 04/13/23 Unknown History acetaminophen 500 mg capsule 500 mg PO Q6H PRN fever or pain 08/22/23 Unknown History oxybutynin chloride 10 mg 10 mg PO QDAY 08/22/23 Unknown History tablet,extended release 24 hr cholecalciferol (vitamin D3) 1,250 1,250 mcg PO QWEEK 03/24/24 Unknown History mcg (50,000 unit) capsule spironolactone 25 mg tablet 25 mg PO QDAY #30 tabs 04/22/24 Unknown Rx apixaban 5 mg tablet (Eliquis) 5 mg PO BID 10/02/24 09/29/24 History amiodarone 200 mg tablet 200 mg PO BID 02/08/25 Unknown History potassium chloride 20 mEq 20 meq PO DAILY nausea 02/08/25 Unknown History tablet,extended release(part/cryst) ramipril 1.25 mg capsule 5 mg PO DAILY 02/08/25 Unknown History rosuvastatin 40 mg tablet 40 mg PO DAILY 02/08/25 Unknown History Allergy/AdvReac Type Severity Reaction Status Date / Time poison niya extract Allergy Itching Verified 02/08/25 17:51 poison oak extract Allergy Itching Verified 02/08/25 17:51 streptokinase (Streptokinase) AdvReac Severe Hives Verified 02/08/25 17:51 Family History Brother Hypertension Cancer Mother CVA (cerebral vascular accident) Hypertension Other Anticoagulant long-term use Atherosclerotic heart disease of [place] coronary artery without angina pectoris Atrial fibrillation H/O coronary artery bypass surgery History of acute myocardial infarction of anterolateral wall Lightheadedness Paroxysmal atrial fibrillation Stented coronary artery Surgical History Stented coronary artery (10/18/07) H/O coronary artery bypass surgery (~02/2000) History of back surgery Hx of appendectomy History of hysterectomy History of thyroidectomy Social History Smoking Status: Former smoker how long ago did patient quit smokin years ago alcohol intake: current alcohol intake frequency: holidays/special occasions only Alcohol type: wine substance use type: does not use caffeine: No what type of physical activity do you participate in: none seatbelt use: always ROS ROS Narrative Review of Systems: Constitutional: Patient denies fever or chills. Eyes: Patient denies change in vision or discharge from eyes. ENT: Patient denies runny nose, sore throat or ear pain. Resp: Patient denies shortness of breath or cough. CV: Patient denies chest pain, palpitations, heart racing or lower extremity edema. GI: Patient denies abdominal pain, nausea, vomiting, diarrhea or constipation. : Patient denies dysuria or hematuria. MSK: Patient admits to generalized weakness but she denies arthralgias or myalgias. Skin: Patient denies rash, abscess, wounds or jaundice. Psych: Patient denies symptoms of uncontrolled depression or anxiety. Neuro: Patient denies headache, paresthesias or focal neurologic deficits. Allergy: Patient denies lip swelling, tongue swelling or urticaria. Hematology: Patient admits to easy bleeding and bruisability on apixaban. Endocrinology: Patient denies polyuria, polydipsia, polyphagia or heat/cold intolerance. 14 point ROS otherwise negative except for positives noted above in HPI. Vital Signs Vital Signs Vital Signs: 02/08/25 17:50 02/08/25 18:55 02/08/25 19:50 Temperature 97.8 F Temperature Source Oral Pulse Rate 86 79 Respiratory Rate 16 16 Respiratory Effort Normal Respiratory Pattern Normal Blood Pressure 95/67 Blood Pressure Mean 76 Pulse Ox 98 100 Oxygen Delivery Method Room Air Room Air Weight Weight: 153 lb 9.6 oz Body Mass Index (BMI) 26.4 Physical Exam Const alert, oriented x3, no apparent distress and average body habitus General Appearance: cooperative HEENT normocephalic, head/scalp atraumatic, hearing grossly normal bilaterally and moist oral mucous membranes Eyes PERRL, EOMs intact bilaterally and conjunctivae normal Neck no lymphadenopathy, supple and no JVD Resp normal respiratory effort, no retractions, no use of accessory muscles and clear to auscultation bilaterally Cardio regular rate and regular rhythm GI normal to inspection, nondistended, normoactive bowel sounds, soft to palpation, non-tender and non-distended Extremity no clubbing, cyanosis or edema Extremity Narrative: Mild tenderness to palpation of the Left knee with bruising after recent fall. Skin Skin Narrative: Patient has bruising of the Left knee but no rash. Neuro oriented x3, CN's II-XII intact bilaterally, moves all extremities and no focal motor deficits Sensorium / Orientation: awake, alert, oriented to person, oriented to place and oriented to time Speech: speech normal Psych affect normal Results Medical Records Data Attestation: I reviewed the patient's medical records Lab / Micro Data Attestation: I reviewed the patient's lab results. 02/09/25 04:37 02/09/25 04:37 Labs: Laboratory Results - last 24 hr 02/08/25 18:55: WBC 8.4, RBC 4.41, Hgb 12.3, Hct 39.5, MCV 89.6, MCH 27.9, MCHC 31.1 L, RDW Std Deviation 46.4 H, RDW Coeff of [place] 14.1, Plt Count 256, MPV 11.4, Immature Gran % (Auto) 1.000 H, Neut % (Auto) 66.5, Lymph % (Auto) 18.4 L, [place] % (Auto) 12.1 H, Eos % (Auto) 1.3, Baso % (Auto) 0.7, Absolute Neuts (auto) 5.6, Absolute Lymphs (auto) 1.55, Nucleated RBC % 0, Sodium 130 L, Potassium 4.5, Chloride 98, Carbon Dioxide 16.9 L, Anion Gap 15, BUN 36 H, Creatinine 2.52 H, Estim Creat Clear Calc 15.92 L, Est GFR (MDRD) Non-Af 18 L, BUN/Creatinine Ratio 14.2, Glucose 135 H, Lactic Acid 1.6, Calcium 11.4 H, Total Bilirubin 0.51, AST 50 H, ALT 55 H, Alkaline Phosphatase 55, Troponin T High Sens 44 H D, Total Protein 6.3, Albumin 3.7, Globulin 2.6, Albumin/Globulin Ratio 1.4 02/08/25 19:40: Urine Color Yellow, Urine Clarity Turbid, Urine pH 6.0, Ur Specific [place] 1.015, Urine Protein 100 H, Urine Glucose (UA) Normal, Urine Ketones Negative, Urine Occult Blood 150 H, Urine Nitrite Negative, Urine Bilirubin Negative, Urine Urobilinogen Normal, Ur Leukocyte Esterase 500 H Rhythm Strip Rhythm Strip: Atrial flutter Rate: 83 Ectopy: None Imaging Radiology Impression Chest X-Ray 02/08/25 19:15 IMPRESSION: NO ACUTE FINDINGS. Reading Location: [facility] Knee X-Ray 02/08/25 19:15 IMPRESSION: DEGENERATIVE OSTEOARTHROSIS. NO ACUTE FINDINGS. Reading Location: [facility] Assessment & Plan Assessment/Plan (1) Acute cystitis without hematuria: (2) Acute kidney injury: (3) Hypercalcemia: (4) Hyponatremia: (5) Generalized weakness: (6) Ambulatory dysfunction: (7) Frequent falls: (8) Atrial fibrillation: QUALIFIERS: Atrial fibrillation type: unspecified Qualified Code(s): I48.91 - Unspecified atrial fibrillation (9) Anticoagulant long-term use: (10) Overweight (BMI 25.0-29.9): PLAN: Plan 1. Acute Cystitis; without hematuria - Admit to PCU. Start empiric therapy with IV ceftriaxone and await culture & sensitivity data. Give acetaminophen as needed for pain or fever. 2. MARYLOU; in the setting of CKD; stage IIIb with elevated serum creatinine of 2.52 mg/dL and eGFR of 18 mL/min (up from her baseline of 2.04 mg/dL with eGFR 24 mL/min on 11/17/2024) complicating #1 - Gently volume resuscitate and recheck renal indices daily to follow trend for hopeful improvement. We will avoid potentially nephrotoxic agents. 3. Hypercalcemia of 11.4 mg/dL compounding #1 & #2 in the setting of previously known Ovarian Cancer and on Vitamin D/Calcium supplementation - Maintain NS IVF. Check urine and serum osmolality. Check CT scan of abdomen and pelvis to evaluate for recurrence. Finally, we will check vitamin D level to evaluate for possible hypervitaminosis D. 4. Hyponatremia of 130 mmol/L adding to the medical complexity of #1 - #3 - Give NS IVF and recheck level in AM to follow trend. Check urine and serum osmolality. Normal-range urine specific gravity 1.015 present on admission. 5. Generalized Weakness with Ambulatory Dysfunction and Frequent Falls due to #1 - #4 - PT/OT and Case Management consult and treat on-rounds in a.m. for further recommendations with help appreciated in advance. 6. Chronic atrial fibrillation (with history of DCCV 2022); on apixaban twice daily with potential pending ablation in February adding to the medical complexity of #1 - #5 - Maintain apixaban for now. 7. Overweight; with BMI of 26.4 this admission adding to the burden of disease outlined from #1 - #6 - Weight loss will be recommended. Check TSH. 8. History of aortic stenosis with chronic systolic CHF; LVEF ~35% (10/2024) - Noted. 9. History of pericardial effusion - Noted with CT pending for #3 to evaluate for potential recurrence. 10. CAD; s/p CABG (1999) with subsequent stents (2005/2007) on BASA and as needed SL NTG - Stable. Maintain BASA and prn SL NTG as previous. 11. Essential hypertension; on amlodipine, carvedilol twice daily, ramipril, metoprolol twice daily, spironolactone and hydrochlorothiazide - Hold scheduled antihypertensives with the patient having systolic blood pressure ~97 mmHg present on admission. We will also hold diuretics until further notice to prevent worsening of MARYLOU outlined in #2. 12. Hyperlipidemia; on rosuvastatin plus niacin - Continue present therapy and check Lipid Profile. 13. Hypothyroidism; on levothyroxine - Resume levothyroxine and check TSH. 14. Former tobacco abuse (quit ~2005) - Noted. 15. History of wide-complex tachycardia - Noted with no evidence of recurrence at this time. 16. History of DVT/PE; not on anticoagulation and s/p IVC filter with subsequent retrieval - Noted. 17. OAB; with stress-incontinent on oxybutynin - Resume oxybutynin as previous. 18. History of SBO - Noted with no signs of recurrence at this time. 19. GERD on sucralfate AC/HS - Maintain current treatment. 20. OA; s/p back surgery - Give acetaminophen prn for pain or fever. 21. DVT prophylaxis - Patient already on apixaban for #6 which will be continued. Total time: Approximately (but not less than) 75 minutes. Charges/Coding Visit Charges Inpatient E&M: 46681 Init Hosp L3
[2025-02-08 21:02] VITALS: BP 96/57; PULSE 78; RESP 14; TEMP 36.6; O2SAT 100
[2025-02-08 21:31] LABS: Troponin T High Sens 2 HR 41 ng/L (<=14)
--- OUTSIDE RECORDS SUMMARY | 2025-02-08 21:49 | XMS RPT_ITS | CCD ---
Author Organization [facility] CliniSy[facility]v Care Team Providers Care Dope Edger Name Role Phone Bernice Valero Unavailable Unavailable Nathaniel, RN, Yaima Ann Unavailable Unavailabl e Bernice Valero Unavailable Unavailable Nathaniel RN, Yaima nAn Unavailable Unavailabl e Antonia CODY, Shila Cline Unavailable [phone] Renate Issa Unavailable Unavailable Renate Issa Unavailable Unavailable Samantha Reyes MD Primary Care Provider [phone] Dr. Samantha Reyes Primary Care Provider [phone] Dr. Samantha Reyes Referring Provider [phone] Dr. Keegan German Attending Provider Bryant INTERNAL AUDIT CONSULTANT, INTERNAL AUDIT CONSULTANT-C Doe Attending Provider Dr. Samantha Reyes Primary Care Provider [phone] Dr. Samantha Reyes Referring Provider [phone] Dr. Reed Waite Attending Provider [phone] Samantha Reyes MD Primary Care Provider Bryant INTERNAL AUDIT CONSULTANT, INTERNAL AUDIT CONSULTANT-C Doe Referring Provider Bryant INTERNAL AUDIT CONSULTANT, INTERNAL AUDIT CONSULTANT-C Doe Other Provider [phone] Dr. Jesus Snyder Attending Provider Dr. Samantha Reyes Primary Care Provider [phone] Dr. Samantha Reyes Referring Provider [phone] Bryant LONGORIA, INTERNAL AUDIT CONSULTANT-C Doe Attending Provider Samantha Reyes MD Primary Care Provider [phone] Dr. Samantha Reyes Primary Care Provider [phone] Dr. Samantha Reyes Attending Provider [phone] Dr. Samantha Reyes Primary Care Provider [phone] Dr. Samantha Reyes Referring Provider [phone] Bryant LONGORIA NP-Frankie Carpio Attending Provider Bryant INTERNAL AUDIT CONSULTANT, INTERNAL AUDIT CONSULTANT-Frankie Carpio Referring Provider Bryant LONGORIA, INTERNAL AUDIT CONSULTANT-Frankie Carpio Other Provider [phone] Dr. Jesus Snyder Attending Provider Dr. Samantha Reyes Attending Provider [phone] Samantha Reyes MD Primary Care Provider Dr. Samantha Reyes Primary Care Provider [phone] Dr. Samantha Reyes Referring Provider [phone] Bryant LONGORIA NP-Frankie Carpio Attending Provider Dr. Samantha Reyes Primary Care Provider [phone] Dr. Samantha Reyes Attending Provider [phone] Dr. Samantha Reyes Referring Provider [phone] Bryant LONGORIA NP-Frankie Carpio Attending Provider Dr. Samantha Reyes Primary Care Provider [phone] 104/68 HR 99. Early was 96/49 with HR 91 R Paged AYAZ [place] non destructive testing technician. He advised it could be BP related. Was advised to monitor increase fluids and call back if HR goes above 120 Patient updated. Advised to call back with the above and if anything like increased SOB CP or feeling like passing out. Advised ED for severe symptoms. Reason for Disposition Patient sounds very sick or weak to the triager Protocols used: Dizziness - [id number] T [facility] 11-28-2024 Miscellaneous Notes S Patient calling concerned [...] with HR 91 R Paged AYAZ [place] non destructive testing technician. He advised it could be BP related. Was advised to monitor increase fluids and call back if HR goes above 120 Patient updated. Advised to call back with the above and if anything like increased SOB CP or feeling like passing out. Advised ED for severe symptoms. Reason for Disposition Patient sounds very sick or weak to the triager Protocols used: Dizziness - [id number] documented in this encounter [facility] 11-24-2024 Note Patient: Sandrine hamilton Procedure Summary Date: 11/24/24 Room / Location: [facility] Cath/EP Lab Anesthesia Start: 1303 Anesthesia Stop: [...] opportunity for questions and acknowledgement of understanding. [facility] 11-24-2024 Note Airway Date/Time: 11/24/2024 1:15 PM Reason: scheduled Airway not difficult General Information and Staff Patient location during procedure: Procedural Resident/PRECISION MARKET INSIGHTS: Samantha Mena APRN - PRECISION MARKET INSIGHTS Performed: PRECISION MARKET INSIGHTS Patient Condition Indications for airway management: anesthesia Patient position: sniffing MILS maintained throughout Sedation level: Asleep Final Airway Details Preoxygenated: yes Final airway type: mask ETT size (mm): 7.0 Ventilation between attempts: none Number of attempts at approach: 1 Number of other approaches attempted: 0 [facility] 11-24-2024 Note Patient: Sandrine Bennett joy Procedure Summary Date: 11/24/24 Room / Location: [facility] Cath/EP Lab Anesthesia Start: 1303 Anesthesia Stop: 1326 Procedure: CARDIOVERSION EXTERNAL Diagnosis: Typical atrial flutter (HCC) Scheduled Providers: Oh Aguirre MD Responsible Provider: Mendoza Johnston MD Anesthesia Type: MAC ASA Status: 3 Anesthesia Type: No value filed. Vitals Arleen/86ue Taken Time BP 86/55 11/24/24 13:26 Temp [...] once all PACU criteria has been met. [facility] 11-24-2024 Note Patient: Sandrine Bennett joy Procedure Information Anesthesia Start Date/Time: 11/24/24 1303 Scheduled providers: Oh Aguirre MD Procedure: CARDIOVERSION EXTERNAL Location: [facility] Cath/EP Lab Relevant Problems No relevant active [...] Father Unknown Heart attack Sister Stroke Sister [facility] 11-24-2024 Attending History and physical note H&P [...] for: FERRITIN HIV: No results found for: [id number] EKG: See Report Echo: See Report EF: No components found for: LVEF, LVEFMODE Diagnosis Plan 1. Acute on chronic systolic heart failure (HCC) 2. Left ventricular hypertrophy ECG 12 lead - CLINIC PERFORMED 3. Typical atrial flutter (HCC) Cardioversion external Basic metabolic panel NT PRO BNP Basic metabolic panel NT PRO BNP 4. Essential hypertension 5. Coronary artery disease involving [place] coronary artery of [place] heart without angina pectoris 6. Paroxysmal atrial [...] STEVEN/MD in 2 weeks CAD s/p recent [facility] that showed stable CAD -aspirin, rosuvastatin, Eliquis [...] mouth daily. cholecalciferol (Vitamin D-3) 1.25 MG (27734 UT) capsule Take 50,000 Units by mouth [...] No current facility-administered medications for this visit. [facility] 11-24-2024 History and physical note H&P reviewed. [...] for: FERRITIN HIV: No results found for: [id number] EKG: See Report Echo: See Report EF: No components found for: LVEF, LVEFMODE Diagnosis Plan 1. Acute on chronic systolic heart failure (HCC) 2. Left ventricular hypertrophy ECG 12 lead - CLINIC PERFORMED 3. Typical atrial flutter (HCC) Cardioversion external Basic metabolic panel NT PRO BNP Basic metabolic panel NT PRO BNP 4. Essential hypertension 5. Coronary artery disease involving [place] coronary artery of [place] heart without angina pectoris 6. Paroxysmal atrial [...] STEVEN/MD in 2 weeks CAD s/p recent [facility] that showed stable CAD -aspirin, rosuvastatin, Eliquis [...] mouth daily. cholecalciferol (Vitamin D-3) 1.25 MG (00730 UT) capsule Take 50,000 Units by mouth [...] for this visit. documented in this encounter [facility] 11-24-2024 Miscellaneous Notes Date: 11/24/2024 Location: [facility] Cardiology Thin Log Name: Sandrine Rivers, : 1940, Diagnosis Persistent atrial fibrillation. CV: 200 J biphasic shock AP pads Afib -> NSR documented in this encounter [facility] 11-24-2024 Note H&P reviewed. The pa tient was examined and there are no changes to the H&P. [facility] 11-24-2024 Procedure note Date: 11/24/2024 Location: [facility] Cardiology Thin Log Name: Sandrine Rivers, : 1940, Diagnosis Persistent atrial fibrillation. CV: 200 J biphasic shock AP pads Afib -> NSR [facility] 11-19-2024 Note INSTRUCTIONS FOR PRO CEDURE Type of Procedure: CARDIOVERSION Date of Procedure: 11/24 Time of Procedure: 1:00PM CHECK IN TIME: 11:30AM Procedure Military Education Coordinator: Dr. Aguirre Please report to [address] [facility]. You may use operations staff specialist security parking at this entrance or use the parking deck. The charge is $6-7. Report to the registration desk at the [facility]. Prep for Procedure Nothing to eat or drink for 8 hours prior to arrival Bring a list of your medications (be sure to include the dosages) If on Bi-Pap or C-Pap bring unit with you (be sure to empty water out) Bring a designated driver material handler to drive you home Please leave unnecessary valuables at home Please wear loose fitting, 2-piece, comfortable clothing Medications May take regular AM medications with sip of water 2 hours prior to arrival Please HOLD medications: Spironolactone Please call office with any questions! [facility] 11-19-2024 Telephone encounter Note INSTRUCTIONS FOR PROCEDURE Type of Procedure: CARDIOVERSION Date of Procedure: 11/24 Time of Procedure: 1:00PM CHECK IN TIME: 11:30AM Procedure Military Education Coordinator: Dr. Aguirre Please report to [address] [place] [address]. You may use operations staff specialist security parking at this entrance or use the parking deck. The charge is $6-7. Report to the registration desk at the [facility]. Prep for Procedure Nothing to eat or drink for 8 hours prior to arrival Bring a list of your medications (be sure to include the dosages) If on Bi-Pap or C-Pap bring unit with you (be sure to empty water out) Bring a designated driver material handler to drive you home Please leave unnecessary valuables at home Please wear loose fitting, 2-piece, comfortable clothing Medications May take regular AM medications with sip of water 2 hours prior to arrival Please HOLD medications: Spironolactone Please call office with any questions! [facility] 11-19-2024 Miscellaneous Notes INSTRUCTIONS FOR PROCEDURE Type of Procedure: CARDIOVERSION Date of Procedure: 11/24 Time of Procedure: 1:00PM CHECK IN TIME: 11:30AM Procedure Military Education Coordinator: Dr. Aguirre Please report to [address] [facility]. You may use operations staff specialist security parking at this entrance or use the parking deck. The charge is $6-7. Report to the registration desk at the [facility]. Prep for Procedure Nothing to eat or drink for 8 hours prior to arrival Bring a list of your medications (be sure to include the dosages) If on Bi-Pap or C-Pap bring unit with you (be sure to empty water out) Bring a designated driver material handler to drive you home Please leave unnecessary [...] order slip & will get done at [facility] OP lab. Please call daughter, Leeroy, with instructions at [phone] documented in this encounter [facility] 11-19-2024 Telephone encounter Note Requested to see [...] on Sunday. Recheck labs in 2 weeks. [facility] 11-19-2024 Telephone encounter Note Patient coming in today 11/19 for EKG check. Will complete teach during visit. [facility] 11-17-2024 Telephone encounter Note Pt called to report she completed her labs at [facility]. Thank you. Will have to request copy. Thank you [facility] 11-17-2024 Miscellaneous Notes Pt called to report she completed her labs at [facility]. Thank you. Will have to request copy. Thank you documented in this encounter [facility] 11-11-2024 Telephone encounter Note Pt scheduled for DCC with Dr Aguirre on 11/24 @ 1p. Ravinder will call pt with teach. Pt has lab order slip & will get done at [facility] OP lab. Please call daughter, Leeroy, with instructions at [phone] [facility] 11-11-2024 History of Present illness Narrative CARDIOLOGY [...] for: FERRITIN HIV: No results found for: [id number] EKG: See Report Echo: See Report EF: No components found for: LVEF, LVEFMODE Diagnosis Plan 1. Acute on chronic systolic heart failure (HCC) 2. Left ventricular hypertrophy ECG 12 lead - CLINIC PERFORMED 3. Typical atrial flutter (HCC) Cardioversion external Basic metabolic panel NT PRO BNP Basic metabolic panel NT PRO BNP 4. Essential hypertension 5. Coronary artery disease involving [place] coronary artery of [place] heart without angina pectoris 6. Paroxysmal atrial [...] STEVEN/MD in 2 weeks CAD s/p recent [facility] that showed stable CAD -aspirin, rosuvastatin, Eliquis [...] mouth daily. cholecalciferol (Vitamin D-3) 1.25 MG (63159 UT) capsule Take 50,000 Units by mouth [...] for this visit. documented in this encounter [facility] 11-11-2024 Instructions Maggie Huggins MD - 11/11/2024 10:30 AM EDT Stop taking Ramipril Stop taking Hydrochlorothiazide Stop taking Carvedilol Start Entresto 24-26mg twice a day on (wash-out of ramipril for 48 hours) Start Amiodarone 200mg twice a day for 2 weeks then reduce to once a day Cardioversion in 2 weeks documented in this encounter [facility] 11-11-2024 Note CARDIOLOGY HF PROGRE SS [...] for: FERRITIN HIV: No results found for: [id number] EKG: See Report Echo: See Report EF: No components found for: LVEF, LVEFMODE Diagnosis Plan 1. Acute on chronic systolic heart failure (HCC) 2. Left ventricular hypertrophy ECG 12 lead - CLINIC PERFORMED 3. Typical atrial flutter (HCC) Cardioversion external Basic metabolic panel NT PRO BNP Basic metabolic panel NT PRO BNP 4. Essential hypertension 5. Coronary artery disease involving [place] coronary artery of [place] heart without angina pectoris 6. Paroxysmal atrial fibrillation (HCC) 7. Chronic diastolic heart failure (HCC) 8. S/P CABG (coronary artery bypass graft) 9. Mixed hyperlipidemia Heart Failure Assessment NYHA class III-A - There is limitation of physical activity. The patient is comfortable at rest, but ord (more content not included)... [facility] 11-11-2024 Note CARDIOLOGY HF PROGRE SS NOTE [...] light-headedness. Negative for syncope. Vital Signs: Vitals: 06/17/25 1036 BP: 98/60 BP Location: Left arm [...] for: FERRITIN HIV: No results found for: [id number] EKG: See Report Echo: See Report EF: No components found for: LVEF, LVEFMODE Diagnosis Plan 1. Acute on chronic systolic heart failure (HCC) 2. Left ventricular hypertrophy ECG 12 lead - CLINIC PERFORMED 3. Typical atrial flutter (HCC) Cardioversion external Basic metabolic panel NT PRO BNP Basic metabolic panel NT PRO BNP 4. Essential hypertension 5. Coronary artery disease involving [place] coronary artery of [place] heart without angina pectoris 6. Paroxysmal atrial fibrillation (HCC) 7. Chronic diastolic heart failure (HCC) 8. S/P CABG (coronary artery bypass graft) 9. Mixed hyperlipidemia Heart Failure Assessment NYHA class III-A - There is limitation of physical activity. The patient is comfortable at rest, but ord (more content not included)... [facility] 10-15-2024 Note HNO ID: [id number] Author: KALEN ANN APRN.GREY TENDER Service: ? Author Type: Nurse Practitioner Type: Progress Notes Filed: 10/15/2024 10:02 Note Text: -Spoke with the patient in detail, she prefers to go to [place] for her tricuspid work up at this time, she has an apt. In October. I told her to let us know if she needs to come back, we can process her referral accordingly for her TR. She verbalized understanding. Kalen Ann APRN.GREY TENDER [facility] 10-14-2024 Note HNO ID: [id number] Author: SAMANTHA REYES MD Service: ? Author [...] Have some issues with a-fib. Follows with [facility], who's been doing cardiac testing [...] and September for dizziness and SOB to [facility]. Had heart cath done in September for angina. She is scheduled to see Cardio in [place] for further evaluation. CKD: monitored with labs. Vit D: Deficient, monitoring through routine labs. Takes Vit D 50,000 international unit(s) once weekly. Lipid/CAD: Recent heart cath done at [facility] by Cardiology on 10/02/24. Taking Crestor 40 [...] elbow OOPHORECTOMY PARTIAL/TOTAL UNI/BI 10/19/2007 Ovarian cancer, [place] [facility] PAST SURGICAL HISTORY OF 05/28/1973 first [...] Allergen Reactions Streptokinase Hives Poison Araceli Poison [place] Extract Itching Current Medications Current Outpatient Medications on File Prior to Visit Medication Sig spironolactone (ALDACTONE) 25 mg tablet once daily. sucralfate (CARAFATE) 1 gram tablet Take 1 tab (more content not included)... 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 Patient verbalizes understanding. Ame Donohue LPN [facility]12-23-2024 Miscellaneous Notes* Telephone Encounter - Ame Donohue LPN - 05/19/2024 12:06 PM EST Patient notified with results. Patient verbalizes understanding. Ame Donohue LPN * Telephone Encounter - Odessa Sanchez APRN.CNP - 05/19/2024 11:48 AM EST I left a message for patient to return call to office. Culture showed bacterial growth which is resistant to the prescribed antibiotic. I sent a new prescription to her pharmacy-Cipro- which she should take twice a day x 5 times. She should stop taking the cephalexin. Odessa Sanchez APRN.CNP documented [facility] Telephone encounter Note * Telephone Encounter - Odessa Sanchez APRN.CNP - 05/19/2024 11:48 AM EST I left a message for patient to return call to office. Culture showed bacterial growth which is resistant to the prescribed antibiotic. I sent a new prescription to her pharmacy-Cipro- which she should take twice a day x 5 times. She should stop taking the cephalexin. Odessa Sanchez APRN.CNP [facility]12-21-2024 NoteHNO ID: [id number] Author: DAVINA FLOWERS PA-C Service: ? Author Type: Physician Yacht Master Type: Progress Notes Filed: 05/17/2024 11:23 Note Text: This note was created using 5 Star Quarterback[employer]. Subjective Sandrine Rivers is a 83 year [...] elbow OOPHORECTOMY PARTIAL/TOTAL UNI/BI 10/19/2007 Ovarian cancer, [place] [facility] PAST SURGICAL HISTORY OF 05/28/1973 first [...] hemorige) Maternal Grandfath (more content not included)... [facility]12-21-2024 History of Present illness Narrative* Davina Flowers PA-C - 05/17/2024 11:22 AM EST This note was created using [employer] Star Quarterback[employer]. Subjective Sandrine Rivers is a 83 year [...] elbow OOPHORECTOMY PARTIAL/TOTAL UNI/BI 10/19/2007 Ovarian cancer, [place] [facility] PAST SURGICAL HISTORY OF 05/28/1973 first [...] CULTURE Davina Flowers PA-C documented in [facility] History of Present illness Narrative* Samantha Reyes [...] Have some issues with a-fib. Follows with [facility], who's been doing cardiac testing [...] elbow OOPHORECTOMY PARTIAL/TOTAL UNI/BI 10/19/2007 Ovarian cancer, [place] [facility] PAST SURGICAL HISTORY OF 05/28/1973 first [...] Allergen Reactions Streptokinase Hives Poison Araceli Poison [place] Extract Itching Current Medications Current Outpatient Medications [...] gallop, or rubs. No ectopy. Afib heard Health Maintenance List Shingrix Vaccine(2 of 3) due [...] ICD9: 453.40, ICD10: I82.409 5. Atherosclerosis of [place] coronary artery of [place] heart without angina pectoris - ICD9: 414.01, [...] Past Histories independently gathered by the clinical technical support representative and the remaining scribed note accurately describes my personal service to the patient. Medical Decision Making: Problems: Moderate: 2+ stable chronic illnesses Risk: Moderate: Drug management Medical Decision Making Level: 4 - Moderate Samantha Reyes MD The documentation for this note was completed by Deborah aCrlisle MA acting as scribe for Samantha Reyes MD. April 14, 2024 1:50 PM. Deborah Carlisle MA documented in this encounterProtest[facility]11-18-2024 NoteHNO ID: [id number] Author: SAMANTHA REYES MD Service: ? Author [...] Have some issues with a-fib. Follows with [facility], who's been doing cardiac testing [...] elbow OOPHORECTOMY PARTIAL/TOTAL UNI/BI 10/19/2007 Ovarian cancer, [place] [facility] [facility] PAST SURGICAL HISTORY OF 05/28/1973 first [...] Allergen Reactions Streptokinase Hives Poison Araceli Poison [place] Extract Itching Current Medications Current Outpatient Medications [...] needed (muscle spasms). oxybutyn (more content not included)...[facility]11-07-2024 Telephone encounter Note* Telephone Encounter - Charles Chavez APRN.GREY TENDER - 04/03/2024 10:41 AM EST The following [...] 1/2 hr before meal. Charles Chavez APRN.CNP [facility]11-07-2024 Miscellaneous Notes* Telephone Encounter - Charles Chavez [...] 03, 2024 8:30 AM documented in this encounterProtest[facility]11-07-2024 Telephone encounter Note * Telephone Encounter - [...] Laurie Vega April 03, 2024 8:30 AM [facility]10-31-2024 Telephone encounter Note* Telephone Encounter - Jenna Ochoa - 03/27/2024 10:22 AM EDT Patient had 1 refill on her bottle so she did not need to call us. Thank you. Jenna Vega [facility]10-31-2024 Miscellaneous Notes* Telephone Encounter - Jenna Ochoa - 03/27/2024 10:22 AM EDT Patient had 1 refill on her bottle so she did not need to call us. Thank you. Jenna Vega documented in this encounterProtest[facility]10-24-2024 Telephone encounter Note * Telephone Encounter - [...] Jenna Vega March 20, 2024 8:58 AM [facility]10-24-2024 Miscellaneous Notes* Telephone Encounter - Jenna Ochoa [...] 20, 2024 8:58 AM documented in this encounterProtest[facility]10-03-2024 Telephone encounter Note * Telephone Encounter - Samantha Reyes MD - 02/28/2024 4:34 PM EDT Noted Samantha Reyes MD [facility]10-03-2024 Miscellaneous Notes* Telephone Encounter - Samantha Reyes [...] chart. Alina Sanon LPN documented in this encounterProtest[facility]10-03-2024 Telephone encounter Note * Telephone Encounter - [...] record updated in chart. Alina Sanon LPN [facility]05-17-2024 Note* Letter - Coordinator, [facility] - 10/12/2023 8:35 AM EDT October 12, 2023 PID: [id number] Sandrine Rivers [id number] [place] [address] Dear Ms. Rivers, We are pleased to [...] report will be kept on file at [facility] as part of your permanent medical record and are available for your continuing care. Thank you for allowing us to help in meeting your health care needs. Sincerely, Dr. Cooper Interpreting Radiologist [facility] (Normal over 40) [facility]05-17-2024 Miscellaneous Notes* Letter - Coordinator, Mammography - 10/12/2023 8:35 AM EDT October 12, 2023 PID: [id number] Sandrine Rivers [id number] [place] [address] Dear Ms. Rivers, We are pleased to [...] report will be kept on file at [facility] as part of your permanent medical record and are available for your continuing care. Thank you for allowing us to help in meeting your health care needs. Sincerely, Dr. Cooper Interpreting Radiologist [facility] (Normal over 40) documented in this encounterProtestant [facility]acon[facility]05-16-2024 History of Present illness Narrative* Maureen Amezcua, Mammo Tech - 10/11/2023 11:10 AM EDT Radiology Service [...] PATIENT PRESENTS WITH AN IMPLANTABLE OR ATTACHED SCAN COORDINATOR: No RADIOLOGY DEPARTMENT: Mammography PERIPHERAL IV DATA: Not applicable SIGNED BY: Maureen Amezcua [employer]ers App October 11, 2023 11:14 AM documented in this encounterProtestant [facility]acon[facility]05-16-2024 History of Present illness Narrative* Samantha Reyes [...] and Prevacid 30 mg once daily. Takes Kswtaese69 mg once daily and Ditropan XL 10 [...] 20 mEq once daily. Follows with Cardio, [facility]. Afib/PE/DVT: Takes Eliquis 5 mg [...] elbow OOPHORECTOMY PARTIAL/TOTAL UNI/BI 10/19/2007 Ovarian cancer, [facility] PAST SURGICAL HISTORY OF 05/28/1973 first [...] Allergen Reactions Streptokinase Hives Poison Araceli Poison [place] Extract Itching Current Medications Current Outpatient Medications [...] 05/28/2023 Behavioral Health Screening Never done Covid-19 Vaccine(2022- season) due on 08/27/2023 LDL Cholesterol due on [...] 10/02/2023 2.89 Monocytes % 10/02/2023 10.7 Abs Eaton 10/02/2023 0.80 Eosinophils % 10/02/2023 1.6 Abs [...] exam in one year. 6. Atherosclerosis of [place] coronary artery of [place] heart without angina pectoris - ICD9: 414.01, [...] Past Histories independently gathered by the clinical technical support representative and the remaining scribed note accurately describes [...] AM. Julia Patel MA documented in this encounterProtestant Deaconess Hospital11-14-2023 History of Present illness Narrative* Samantha Reyes [...] when moving too quickly. Has appt with [facility] this week [...] on 04/08/23 for chestpain. Lipid/CAD: Follows with [facility] Coordinator at [facility]. Tries to watch diet but denies much exercise. Taking Crestor 40 mg daily and Niacin ER 500 mg BID. Has lost weight since her last visit. Vit D - Taking Vit D3 50,000 international unit(s) once weekly. Pt also seen at [facility] ED on 04/08/23 for chest pain, which may have been related to reflux which pt felt she may have had. Also seen in ED on 03/21/23 for afib and had to be converted. Just changed Drug Stores to [facility]. HM - Will be [...] elbow OOPHORECTOMY PARTIAL/TOTAL UNI/BI 10/19/2007 Ovarian cancer, [facility] PAST SURGICAL HISTORY OF 05/28/1973 first [...] Allergen Reactions Streptokinase Hives Poison Araceli Poison [place] Extract Itching Streptokinesis [Oth* hives Current Medications [...] Continue current medication regimen. 8. Atherosclerosis of [place] coronary artery of [place] heart without angina pectoris - ICD9: 414.01, [...] Past Histories independently gathered by the clinical technical support representative and the remaining scribed note accurately describes [...] PM. Deborah Carlisle Ma documented in this encounterProtestant Deaconess Hospital11-12-2023 Discharge summary Author Marizol Frey [facility] April 08, 2023 11:51pm Note Date/Time April 08, 2023 9:31pm [facility] Medical Records Department [address] [place] [address] Emergency Department Summary 04/08/23 MR#: [id number] Acct: [id number] Name: SANDRINE RIVERS Rep #:[id number] : 1940 82 From: Marizol Frey MD [...] had increased gas and increased reflux today. [facility] Medical History (Updated 04/08/23 @ 23:[address] Marizol Frey MD) Anticoagulant long-term use Atherosclerotic heart disease of [place] coronary artery without angina pectoris Chest pain Dyspnea on exertion Essential hypertension Fatigue GERD (gastroesophageal reflux disease) History of acute myocardial infarction of anterolateral wall (02/2000) History of cardioversion History of DVT (deep vein thrombosis) Hypothyroid ivc filter retreval Left-sided pyelonephritis Other moth exterminator (current) drug therapy Ovarian cancer Overactive bladder [...] mcg (50,000 unit) capsule 1,250 mcg PO AMXBDQ63/07/23 [History Last Taken Unknown] levothyroxine 125 mcg [...] Medical decision making narrative: Patient placed on cardiac cath technologist. IV line established. Patient did take 1 [...] % (Auto) 48.9 Lymph % (Auto) 38.8 Eaton % (Auto) 10.0 Eos % (Auto) 1.4 [...] Signed: Vladimir Loza MD at 21:16 EST Reading Location ID and State: [facility] / [place] , Service support , EKG Initial EKG: Attestation: I personally [...] your Primary Care Provider. Call [facility] ([phone]) or report to the closest Emergency Room. Call 911 if necessary. 04/08/23 7233 <Electronically signed by Marizol Frey MD> Cosigner Signature (if applicable): CC: Dr. Samantha Reyes MD ~ Signed [facility] Work Phone: 1(691) 469-211310-25-2023 Discharge summary Author Patrick Schneider [facility] March 21, 2023 2:01pm Note Date/Time March 21, 2023 9 :56am [facility] Medical Records Department [address] [place] [address] Emergency Department Summary 03/21/23 MR#: [id number] Acct: [id number] Name: SANDRINE RIVERS Rep #:[id number] : 1940 82 From: Patrick Schneider MD [...] is her typical symptom of atrial fibrillation [facility] Medical History (Updated 03/21/23 @ 14:[address] Patrick Schneider MD) Anticoagulant long-term use Atherosclerotic heart disease of [place] coronary artery without angina pectoris Chest pain DVT (deep venous thrombosis) Dyspnea on exertion Essential hypertension Fatigue GERD (gastroesophageal reflux disease) History of acute myocardial infarction of anterolateral wall (02/2000) History of cardioversion History of DVT (deep vein thrombosis) Hypothyroid ivc filter retreval Left-sided pyelonephritis Other moth exterminator (current) drug therapy Ovarian cancer Overactive bladder [...] mcg (50,000 unit) capsule 1,250 mcg PO KAWWDW02/07/23 [History Last Taken Unknown] levothyroxine 125 mcg [...] (Auto) 47.0 Lymph % (Auto) 42.2 H Eaton % (Auto) 9.0 Eos % (Auto) 1.1 [...] your Primary Care Provider. Call [facility] ([phone]) or report to the closest Emergency Room. Call 911 if necessary. 03/21/23 1401 <Electronically signed by Patrick Schneider MD> Cosigner Signature (if applicable): CC: Dr. Samantha Reyes MD ~ Signed [facility] Work Phone: 1(660) 907-307010-19-2023 Miscellaneous Notes* Telephone Encounter - Ame Donohue LPN - 03/15/2023 8:47 AM EDT Spoke with pt and information listed below given. Pt verbalizes understanding. Ame Donohue LPN * Telephone Encounter - Samantha Reyes MD - 03/15/2023 8:46 AM EDT OK to refill as ordered Samantha Reyes MD * Telephone Encounter - Carlton Sandrine M, RN - 03/14/2023 1:16 PM EDT Patient [...] time a week. Patient requests scripts to [facility], [facility]. Date of last office [...] you. Sandrine Vincent RN. documented in this encounterProtestant Deaconess Hospital09-20-2023 Miscellaneous Notes* Telephone Encounter - Dulce Maria [...] or one of cohorts. documented in this encounterProtestant Deaconess Hospital09-15-2023 History of Present illness Narrative* Derick Atkins [...] Allergen Reactions Streptokinase Hives Poison Araceli Poison [place] Extract Itching Streptokinesis [Oth* hives VITALS: BP 132/78 Pulse 86 Temp 36.1 C (96.9 F) Resp 16 Wt 91.2 kg (201 lb) LMP 05/28/1990 [id number]% BMI 34.50 kg/m PHYSICAL EXAM: GEN: NAD [...] CAP Derick Atkins MD documented in this encounterProtestant Deaconess Hospital09-01-2023 Miscellaneous Notes* Telephone Encounter - Charles Chavez APRN.CNP - 01/26/2023 1:46 PM EDT The following approved medication requests have been transmitted electronically. Requested Prescriptions Pending Prescriptions Disp Refills levothyroxine (LEVOXYL) 125 mcg tablet 30 tablet 11 Sig: Take 1 tablet by mouth once daily. Take on empty stomach. For thyroid. Charles Chavez APRN.CNP * Telephone Encounter - Antia Proctor - 01/26/2023 1:32 PM EDT Patient has [...] For thyroid. Please review and advise. Anita Gonzalezr documented in this encounterProtestant Deaconess Hospital07-10-2023 Miscellaneous Notes* Telephone Encounter - Yee Montalvo [...] a urologist that has moved up to [place]. Patient states that she does not want to travel that far. Patient asking if provider can write a urology referral. Patient would like referral to be sent to Dr. Parks's office. Please review and advise, Ruby Morris RN documented in this encounterProtestant Deaconess Hospital04-28-2023 Miscellaneous Notes* Telephone Encounter - Lani Goff [...] calling wanting the above medication refilled at [facility] in [place]. Please advise. Thank you. Lani Goff documented in this encounterProtestant Deaconess Hospital04-01-2023 History of Present illness Narrative* Kyree Mckinnon [...] visit. Either the patient or their legal outreach representative has been informed of the risks and benefits of -- and alternatives to -- treatment through a remote evaluation andconsents to proceed with the evaluation remotely. HPI [...] elbow OOPHORECTOMY PARTIAL/TOTAL UNI/BI 10/19/2007 Ovarian [facility], [facility] PAST SURGICAL HISTORY OF 05/28/1973 first [...] Allergen Reactions Streptokinase Hives Poison Araceli Poison [place] Extract Itching Streptokinesis [Oth* hives Current Medications [...] procedures. Kyree Mckinnon MD documented in this encounterProtestant Deaconess Hospital03-31-2023 History of Present illness Narrative* Davina Flowers PA-C - 08/25/2022 10:05 AM EDT This note was created using [employer]. Subjective Sandrine Rivers is a 82 year [...] She has tried some Carranza's cough drops [id number]. Review of Systems Constitutional: Positive for chills. [...] elbow OOPHORECTOMY PARTIAL/TOTAL UNI/BI 10/19/2007 Ovarian [facility], [facility] PAST SURGICAL HISTORY OF 05/28/1973 first [...] FRONTAL/LAT Davina Flowers PA-C documented in this encounterProtestant Deaconess Hospital03-31-2023 History of Present illness Narrative* Steph Escalera RT(Manasa) - 08/25/2022 9:50 AM EDT Radiology Service [...] IV DATA: Not applicable SIGNED BY: RT Barron(Manasa) August 25, 2022 9:50 AM documented in this encounterProtestant Deaconess Hospital03-27-2023 History of Present illness Narrative* La Nena Toscano APRN.GREY TENDER - 08/21/2022 2:00 PM EDT Female Pelvic [...] no Pain: no Abnormal Vaginal Discharge: no BUFFERER HISTORY: Last pap: Date:unknown, s/p hysterectomy for ovarian cancer; Last mammogram: Her last mammogram was 2021. She has no history of an abnormal mammogram LMP: Patient's last menstrual period was 05/28/1990.; Menopause yes: Menstrual history: Menarche: 13; Deliveries: I have confirmed and edited as necessary, the PFSH obtained by others. La Nena Toscano APRN.MIKA Clamp Operator offered: Patient declines. OBJECTIVE: BP 122/70 Pulse [...] diuretics - Patient to inquire with cardiology assisted plans for diuretic use and will contact [...] La Nena Toscano APRN.CNP documented in this encounterProtestant Deaconess Hospital03-20-2023 Miscellaneous Notes* Telephone Encounter - Karey Elias RN - 08/14/2022 11:33 AM EDT Patient advised of need for lab work, she verbalized understanding and will go to [facility] lab tomorrow. * Telephone Encounter - La [...] on 08/21 at 2:00. Message routed to [employer] to schedule. Message routed to La Nena [...] and advise. Nalini Ernandez documented in this encounterProtestant Deaconess Hospital12-15-2022 Miscellaneous Notes* Telephone Encounter - Charles Chavez APRN.CNP - 05/11/2022 10:19 AM EST The following approved medication requests have been transmitted electronically. Requested Prescriptions Pending Prescriptions Disp Refills potassium chloride 20 mEq TbER 90 tablet 4 Sig: Take 1 tablet by mouth once daily. Charles Chavez APRN.CNP * Telephone Encounter - ADALBERTO [...] and advise. Faby Nicole documented in this encounterProtestant Deaconess Hospital11-01-2022 Miscellaneous Notes* Telephone Encounter - Deborah Carlisle Ma - 03/28/2022 3:37 PM EDT Pt called and notified of message below. Pt states that Dr. Waite gave her the exact instructions and advised her to have rechecked in 1 week. She plans on getting this done at [facility]. Asked pt who's managing her INR [...] Waite. Deborah Carlisle Ma documented in this encounterProtestant Deaconess Hospital10-14-2022 Miscellaneous Notes* Telephone Encounter - Faby Pastrana [...] Thank you. Faby Pastrana documented in this encounterProtestant Deaconess Hospital10-12-2022 Miscellaneous Notes* Telephone Encounter - Yee Montalvo [...] Samantha Reyes MD * Telephone Encounter - Marissa Glover RN - 03/03/2022 11:51 AM EDT NICOLE Hernadez reports patient is out of coumadin and needs refill, but pcp office tells them they sentan rx for a years supply. Noted on chart, the only coumadin listed, appears as historical med and was not sent. Re-pended. documented in this encounterProtestant Deaconess Hospital10-11-2022 History of Present illness Narrative* Shila Weiss RN - 03/07/2022 11:31 AM EDT patient had inr completed at [facility] patients inr is 2.6 (patients inr [...] up inr on 03/14/22 documented in this encounterProtestant Deaconess Hospital10-04-2022 History of Present illness Narrative* Shila Weiss RN - 02/28/2022 2:22 PM EDT patient had inr completed at [facility] patients inr is 3.0 (patients inr [...] schedule patient for cardioversion documented in this encounterProtestant Deaconess Hospital09-29-2022 Miscellaneous Notes* Telephone Encounter - Shannon Leung [...] to follow-up thank you documented in this encounterProtestant Deaconess Hospital09-28-2022 History of Present illness Narrative* Samantha Reyes MD - 02/22/2022 2:11 PM EDT I agree with the advice given; stay same and recheck in 1 week Samantha Reyes MD * Shila Weiss RN - 02/21/2022 1:22 PM EDT patient had inr completed at [facility] patients inr is 2.5 (patients inr [...] up inr on 02/28/22 documented in this encounterProtestant Deaconess Hospital09-27-2022 Instructions* Patient Instructions* Avtar Mccartney APRN.MIKA - [...] medication or fluids down. documented in this encounterProtestant Deaconess Hospital09-27-2022 History of Present illness Narrative* Avtar Mccartney [...] faecalis. patient denies the use of any [id number] medications or home remedies for symptom management. [...] elbow OOPHORECTOMY PARTIAL/TOTAL UNI/BI 10/19/2007 Ovarian cancer, [facility] PAST SURGICAL HISTORY OF 05/28/1973 first [...] Dr Shea ALLERGIES Streptokinase, Poison Araceli, Poison [place] Extract, and Streptokinesis [Other] MEDICATIONS levothyroxine (LEVOXYL) [...] Wt 95.7 kg (211 lb) LMP 05/28/1990 DgW483% BMI 36.22 kg/m Review of Systems Constitutional: [...] of care. This note was generated using [employer] 3D software. It may contain errors in wording, punctuation, or spelling. Avtar Mccartney APRN.MIKA documented in this encounterProtestant Deaconess Hospital09-20-2022 History of Present illness Narrative* Samantha Reyes MD - 02/14/2022 3:22 PM EDT Noted I agree with the advice given Samantha Reyes MD * Shila Weiss RN - 02/14/2022 2:10 PM EDT patient had inr completed at [facility] patients inr is 2.6 (patients inr [...] up inr on 02/21/22 documented in this encounterProtestant Deaconess Hospital09-20-2022 Miscellaneous Notes* Telephone Encounter - Asha Moore [...] request PCP review lab results done @ [facility] on 02/09. Results in Epic. Dr. Waite's office told her that her TSH was off and she needs to talk to her PCP about this. Sandrine Vincent RN documented in this encounterProtestant Deaconess Hospital09-09-2022 Miscellaneous Notes* Telephone Encounter - Laurie Hills [...] Current dose of coumadin is: 5 mg , 2.5 mg all other days. Last date of dose change: 01/02/22. Previous INR (date and result): 02/01/22 INR: 1.7 Additional Clinical Information or narrative: no documented in this encounterProtestant Deaconess Hospital09-08-2022 Miscellaneous Notes* Addendum Note - Avtar Garcia MD - 02/02/2022 4:12 PM EDTAddended by: AVTAR GARCIA on: 02/02/2022 04:12 PM Modules accepted: Orders documented in this encounterProtestant Deaconess Hospital09-08-2022 History of Present illness Narrative* Josefina Mcleod [...] PM EDT patient had inr completed at [facility] patients inr is 1.7 (patients inr [...] up inr on 02/14/22 documented in this encounterProtestant Deaconess Hospital09-07-2022 History of Present illness Narrative* Derick Atkins [...] elbow OOPHORECTOMY PARTIAL/TOTAL UNI/BI 10/19/2007 Ovarian cancer, [facility] PAST SURGICAL HISTORY OF 05/28/1973 first [...] Wt 96.6 kg (213 lb) LMP 05/28/1990 [id number]% BMI 36.56 kg/m PHYSICAL EXAM: GEN: NAD [...] CAP Derick Atkins MD documented in this encounterProtestant Deaconess Hospital08-25-2022 History of Present illness Narrative* Steph Escalera, [...] 19, 2022 1:40 PM documented in this encounterProtestant Deaconess Hospital08-25-2022 History of Present illness Narrative* Sylwia Mcleod APRN.GREY TENDER - 01/19/2022 1:35 PM EDT Images from [...] history is provided by the patient. No stamp maker was used. Fall Review of Systems Constitutional: [...] elbow OOPHORECTOMY PARTIAL/TOTAL UNI/BI 10/19/2007 Ovarian cancer, [facility] PAST SURGICAL HISTORY OF 05/28/1973 first [...] report. No evidence of fracture or dislocation. Educational Assistant: CHAPINCITO Transcribe Date/Time: Jan 19 2022 1:58P Dictated by : NICK DE PAZ MD Patient was updated and will follow up if anything changes. Sylwia Mcleod APRN.MIKA documented in this encounterProtestant Deaconess Hospital08-15-2022 History of Present illness Narrative* Deborah Carlisle [...] AM EDT patient had inr completed at [facility] patients inr is 1.4 (patients inr [...] up inr on 01/23/22 documented in this encounterProtestant Deaconess Hospital08-08-2022 History of Present illness Narrative* Deborah Carlisle [...] AM EDT patient had inr completed at [facility] patients inr is 4.5 (patients inr [...] has been instructed to discuss results at appt patient has been scheduled for a 1 week inr follow up on 01/09/22 documented in this encounterProtestant Deaconess Hospital08-08-2022 History of Present illness Narrative* Samantha Reyes [...] stomach or bowel issues. Does follow with BUFFERER due to incontinence. See's Dr. Sheba Cortez. [...] for her. Follows with Dr. Waite at [facility]. Was seen on 10/17/21 due to sob [...] on daily Coumadin. She was in the [facility] ER in November for chest pains,was in a-fib. She was told her heart was fine. Was sent home. INR today 4.5, changed dosage to: Hold coumadin x 3 days then go back to 5 mg Mon & TH, 2.5 mg all other days. Pain: Having [...] elbow OOPHORECTOMY PARTIAL/TOTAL UNI/BI 10/19/2007 Ovarian cancer, [facility] PAST SURGICAL HISTORY OF 05/28/1973 first [...] Goal of BP <130/80 2. Atherosclerosis of [place] coronary artery of [place] heart without angina pectoris - ICD9: 414.01, ICD10: I25.10 Continue current medications. Continue with Military Education Coordinator-Dr. Waite 3. Atrial fibrillation, unspecified type (HCC) - ICD9: 427.31, ICD10: I48.91 INR high today Hold coumadin x 3 days then go back to 5 mg /, 2.5 mg all other days. 4. Gastroesophageal [...] Past Histories independently gathered by the clinical technical support representative and the remaining scribed note accurately describes [...] AM. Julia Patel Ma documented in this [facility]08-05-2022 Miscellaneous Notes* Telephone Encounter - Charles Chavez APRN.CNP - 12/30/2021 9:39 AM EDT Filled in other TE. Charles Chavez APRN.CNP documented in this encounterProtestant Deaconess Hospital08-05-2022 Miscellaneous Notes* Telephone Encounter - Charles Chavez [...] patient. Jenna Donohue Pss documented in this [facility]07-29-2022 Miscellaneous Notes* Telephone Encounter - Charles Chavez APRN.CNP - 12/23/2021 10:56 AM EDT The following approved medication requests have been transmitted electronically. Pending Prescriptions Disp Refills CHOLECALCIFEROL (VITAMIN D3) 1,250 MCG (50,000 UNIT) CAPSULE 12 capsule 3 Sig: TAKE 1 CAPSULE BY MOUTH ONCE A WEEK KATELYN: Yes Charles Chavez APRN.CNP * [facility] 9:31 AM EDT Patient has been identified by name and date of : Yes Pending Prescriptions Disp Refills CHOLECALCIFEROL (VITAMIN D3) 1,250 MCG (50,000 UNIT) CAPSULE 12 capsule 3 Sig: TAKE 1 CAPSULE BY MOUTH ONCE A WEEK KATELYN: Yes DEANN-10/17/21 Labs-10/18/21 NOV-01/02/22 med filled 10/22/20 RX INSTRUCTIONS: Patient aware RX will be sent to pharmacy. No need to notify patient. [place] [id number] documented in this encounterProtestant Deaconess Hospital07-29-2022 Miscellaneous Notes* Telephone Encounter - [facility] - 12/23/2021 9:34 AM EDT This was a duplicate request for a refill Opened in error documented in this encounterProtestant Deaconess Hospital07-21-2022 History of Present illness Narrative* Julia Patel [...] AM EDT patient had inr completed at [facility] patients inr is 1.5 (patients inr [...] pcp also this day documented in this encounterProtestant Deaconess Hospital07-15-2022 Miscellaneous Notes* Telephone Encounter - Charles Chavez [...] by mouth once daily. KATELYN: No DEANN-10/17/21 Lab-10/18/21 NOV/01/02/22 med filled 10/11/21 Please review and advise. Jaylin Berkowitz LPN * Telephone Encounter - Laurie Torres Pss - 12/09/2021 9:32 AM EDT Put in dispensing and refills documented in this encounterProtestant Deaconess Hospital06-29-2022 Miscellaneous Notes* Telephone Encounter - Julia Patel Ma - 11/23/2021 3:43 PM EDT Pt dropped of disc that had chest imaging done at [facility]. Records printed off and sent to scanning. Message left notifying pt that disc is at [facility] for cook pickled meat. Julia Patel Ma documented in this encounterProtestant Deaconess Hospital06-28-2022 Miscellaneous Notes* Telephone Encounter - Ame Donohue LPN - 11/22/2021 2:03 PM EDT Spoke with pt and information listed below given. Pt verbalizes understanding. Pt states the medication is helping and she already has a follow up scheduled. Ame Donohue LPN * Telephone Encounter - Anila Wilkes - 11/22/2021 12:31 PM EDT Left message for patient to return call. Anila Wilkes * Telephone Encounter - Anila Wilkes - 11/22/2021 12:30 PM EDT ----- Message from Odessa Sanchez APRN.GREY TENDER sent at 11/22/2021 12:17 PM EDT ----- Urine culture did not show clear evidence of infection. The sample may have been contaminated with skin bacteria during collection. She may continue to take antibiotic if it has been helpful. Recommend follow up with PCP to ensure hematuria has resolved. Odessa Sanchez CNP documented in this encounterProtestant Deaconess Hospital06-27-2022 History of Present illness Narrative* Odessa Sanchez [...] elbow OOPHORECTOMY PARTIAL/TOTAL UNI/BI 10/19/2007 Ovarian cancer, [facility] PAST SURGICAL HISTORY OF 05/28/1973 first [...] warfarin (COUMADIN) 5 mg tablet 5 mg Mon/Th, 2.5 mg all other days or as [...] MG CAPSULE DENZEL Goldsmith student TEACHING PROVIDER (Physician/PA/[employer]) NOTE OF PERSONAL INVOLVEMENT IN CARE: I have personally seen and examined the patient and performed the medical decision-making components. I have reviewed the Advanced Practice Registered Nurse ([employer]) Student's documentation and verified the findings in the note as written. Any additions or changes are noted in bold/italics. Signature: Odessa Sanchez Date: 11/21/2021 Time: 11:40 AM documented in this encounterProtestant Deaconess Hospital06-27-2022 Instructions* Patient Instructions* Marce Palmer - 11/21/2021 [...] from front to back documented in this encounterProtestant Deaconess Hospital06-20-2022 Miscellaneous Notes* Telephone Encounter - ADALBERTO Lang [...] December. Pleasecall and advise. documented in this encounterProtestant Deaconess Hospital06-16-2022 History of Present illness Narrative* Samantha Reyes MD - 11/10/2021 11:24 AM EDT I agree with the advice given; stay same and recheck in 2 weeks Samantha Reyes MD * Shila Weiss RN - 11/10/2021 10:43 AM EDT patient had inr completed at [facility] patients inr is 2.6 (patients inr [...] reading since dose change documented in this encounterProtestant Deaconess Hospital05-23-2022 History of Present illness Narrative* Samantha Reyes [...] exertion. She had CXR done 10/11/21 at [facility], Dr. Gorman told pt that the xrresults [...] elbow OOPHORECTOMY PARTIAL/TOTAL UNI/BI 10/19/2007 Ovarian cancer, [facility] PAST SURGICAL HISTORY OF 05/28/1973 first [...] Aged Out Data reviewed Outside labs from [facility] - Cardio ASSESSMENT/PLAN: 1. SOB (shortness [...] Past Histories independently gathered by the clinical technical support representative and the remaining scribed note accurately describes [...] PM. Deborah Carlisle Ma documented in this encounterProtest[facility]05-19-2022 Miscellaneous Notes* Telephone Encounter - Samantha Reyes MD - 10/13/2021 3:23 PM EDT Noted Samantha Reyes MD * Telephone Encounter - Sandrine Vincent RN - 10/13/2021 1:02 PM EDT Patient was seen by her dimethylaniline sulfator operator, Dr. Gaurang Gorman for new onset shortness of breath with exertion. She had a CXR done on 10/11 @ [facility]. She states Dr. Gorman notified her of result showing COPD and instructed her to follow up with PCP. She says she is also scheduled for ECHO and stress test in October. Appointment scheduled with PCP on Sunday, 10/17 for follow up. Sandrine Vincent RN documented in this encounterProtestant [facility]acon[facility]05-16-2022 History of Present illness Narrative* Samantha Reyes MD - 10/10/2021 11:43 AM EDT I agree with the advice given; stay same and recheck in 2 weeks Samantha Reyes MD * Shila Weiss RN - 10/10/2021 11:02 AM EDT patient had inr completed at [facility] patients inr is 2.9 (patients inr [...] reading since dose change documented in this encounterProtestant [facility]acon[facility]05-12-2022 Miscellaneous Notes* Telephone Encounter - Jaylin Berkowitz LPN - 10/06/2021 11:55 AM EDT Patient notified of results, verbalizes understanding of instructions. Jaylin Berkowitz LPN * Telephone Encounter - Samantha Reyes MD - 10/06/2021 11:34 AM EDT Please notify patient that her lab work from last month looks OK; follow up in Dec as scheduled Samantha Reyes MD documented in this encounterProtestant [facility]acon[facility]05-02-2022 History of Present illness Narrative* Deborah Carlisle [...] AM EDT patient had inr completed at [facility] patients inr is 1.8 (patients inr [...] up inr on 10/10/21 documented in this encounterProtestant Deacon[facility]04-25-2022 History of Present illness Narrative* Julia Patel Ma - 09/19/2021 1:33 PM EDT Pt notified and voiced understanding, repeated instructions back. Tracker and med list updated. Julia Patel Ma * Samantha Reyes MD - 09/19/2021 11:36 AM EDT Go to 5 mg on Mon and Th; 2.5 mg all other days Recheck in 1 week as planned Samantha Reyes MD * Shila Weiss RN - 09/19/2021 11:28 AM EDT patient had inr completed at [facility] patients inr is 1.7 (patients inr [...] up inr on 09/26/21 documented in this encounterProtestant Deacon[facility]04-20-2022 History of Present illness Narrative* Rachel Busch APRN.CNP - 09/14/2021 11:30 AM EDT UROGYN TELEPHONE [...] it because last BP on file in [facility] from 09/09/21 was 156/102. Pt had [...] minutes Rachel Busch APRN.MIKA documented in this encounterProtestant Deacon[facility] Hospital04-18-2022 History of Present illness Narrative* Zunilda Baker LPN - 09/12/2021 4:51 PM EDT Pt notified of results, new coumadin dose, and recheck date. Appt scheduled. Anticoag tracker updated. Zunilda Baker LPN * Samantha Reyes MD - 09/12/2021 3:00 PM EDT Go to 5 mg on Sunday; 2.5 mg all other days Recheck in 1 week rather than 2 weeks Samantha Reyes MD * Shila Weiss RN - 09/12/2021 2:13 PM EDT patient had inr completed at [facility] patients inr is 1.8 (patients inr [...] up inr on 09/26/21 documented in this encounterProtestant Deacon[facility] Hospital04-18-2022 Nurse Note* Zunilda Baker LPN - 09/12/2021 4:50 PM EDT Pt notified of new dose and recheck date. Appt scheduled for same. Zunilda Baker LPN documented in this encounterProtestant Deacon[facility] Hospital04-15-2022 Miscellaneous Notes* Telephone Encounter - Bekah Mayer LPN - 09/09/2021 2:51 PM EDT Patient notified and voiced her understanding. * Telephone Encounter - Ana Rosa Barnhart Ma - 09/09/2021 2:31 PM EDT Left vm for patient to call office back Ana Rosa Barnhart Ma * Telephone Encounter - Avatr Garcia MD - 09/09/2021 2:17 PM EDT [...] will send to DOC. documented in this encounterProtestant Deaconess Hospital04-15-2022 Miscellaneous Notes* Telephone Encounter - Laurie Moody RN - 09/09/2021 1:59 PM EDT Attempted to reach patient x 2. Phone hangs up. Laurie Moody RN * Telephone Encounter - Laurie Moody RN - 09/09/2021 1:41 PM EDT Nurse triage VM - Patient of [place] needs refill, did not mention what one. documented in this encounterProtestant Deaconess Hospital04-15-2022 History of Present illness Narrative* Davina Flowers PA-C - 09/09/2021 1:05 PM EDT This note was created using [employer]back[employer]. Subjective Sandrine Rivers is a 81 year [...] elbow OOPHORECTOMY PARTIAL/TOTAL UNI/BI 10/19/2007 Ovarian cancer, [facility] PAST SURGICAL HISTORY OF 05/28/1973 first [...] DIP, URINE (POC) - URINE CULTURE Davina R Athy, PA-C documented in this encounterProtestant Deaconess Hospital04-08-2022 History of Present illness Narrative* Julia Patel [...] AM EDT patient had inr completed at [facility] patients inr is 5.3 (patients inr [...] is closed next week documented in this encounterProtestant Deaconess Hospital04-08-2022 Miscellaneous Notes* Telephone Encounter - Samantha Reyes [...] can not be approved. documented in this encounterProtestant Deaconess Hospital11-08-2021 History of Present illness Narrative* Steph Escalera [...] 04, 2021 10:51 AM documented in this encounterProtestant Deaconess Hospital04-20-2021 History of Present illness Narrative* Yadi Hopkins (Rt), Tech - 09/14/2020 10:50 AM EDT Radiology Service [...] 14, 2020 10:55 AM [facility] Diagnosis Personal history of venous thrombosis and embolism- Primary documented in this encounter [facility]* Diagnosis Personal history of venous thrombosis and embolism Atrial fibrillation, unspecified type (HCC) documented in this encounter [facility] note* Diagnosis Dysuria- Primary documented in this encounter [facility] note* Diagnosis Personal history of venous thrombosis and embolism documented in this encounter [facility] note* Diagnosis Personal history of venous thrombosis and embolism documented in this encounter [facility]* Diagnosis Urge incontinence- Primary [facility]* Diagnosis Onset Date Resolution Status Ovarian cancer chronic Ovarian cancer [facility] Work Phone: Evaluation note* Diagnosis Personal history of venous thrombosis and embolism documented in this encounter [facility] note* Diagnosis Personal history of venous thrombosis and embolism documented [facility] encounter [facility]* Diagnosis Onset Date Resolution Status Ovarian cancer chronic Ovarian cancer chronic Chest heaviness acute Dyspnea acute Fatigue acute Atherosclerotic heart diseas e of [place] coronary artery without angina pectoris chronic Essential hypertension chron ic Paroxysmal atrial fibrillation chronic Pure hypercholesterolemia [facility] Work Phone: Evaluation note* Diagnosis SOB (shortness of breath)- Primary Shortness of breath Atrial fibrillation, unspecified type (HCC) Atherosclerosis of [place] coronary artery of [place] heart without angina pectoris Essential hypertension, benign Hypothyroidism, unspecified type documented [facility] encounter [facility]* Diagnosis Onset Date Resolution Status Chest heaviness acute Dyspnea acute Fatigue acute Atherosclerotic heart diseas e of [place] coronary artery without angina pectoris chronic Essential hypertension chron ic Paroxysmal atrial fibrillation chronic Pure hypercholesterolemia [facility] Work Phone: Evaluation note* Diagnosis Painful urination- Primary Dysuria Acute cystitis with hematuria Acute cystitis documented in this encounter [facility]* Diagnosis Personal history of venous thrombosis and embolism Atrial fibrillation, unspecified type (HCC) documented [facility] this encounter [facility]* Diagnosis Essential hypertension, benign- Primary Atherosclerosis of [place] coronary artery of [place] heart without angina pectoris Atrial fibrillation, unspecified type (HCC) Gastroesophageal reflux disease, unspecified whether esophagitis present Hypothyroidism, unspecified type Obesity, Class II, BMI 35-39.9 Obesity, unspecified [facility] Diagnosis Onset Date Resolution Status Chest heaviness acute Dyspnea acute Fatigue acute Atherosclerotic heart diseas e of [place] coronary artery without angina pectoris chronic Essential hypertension chron ic Paroxysmal atrial fibrillation chronic Pure hypercholesterolemia [facility] Dyspnea acute Fatigue acute Atherosclerotic heart diseas e of [place] coronary artery without angina pectoris chronic Essential hypertension chron ic Paroxysmal atrial fibrillation chronic Pure hypercholesterolemia [facility] Work Phone: Evaluation note* Diagnosis Fall, initial encounter- Primary [facility]* Diagnosis Urinary frequency- Primary Burning with urination Dysuria documented [facility] this encounter [facility]* Diagnosis Onset Date Resolution Status Dyspnea acute Fatigue acute Atherosclerotic heart diseas e of [place] coronary artery without angina pectoris chronic Essential hypertension chron ic Paroxysmal atrial fibrillation chronic Pure hypercholesterolemia [facility] Work Phone: Evaluation note* Diagnosis Onset Date Resolution Status Dyspnea acute Fatigue acute Atherosclerotic heart diseas e of [place] coronary artery without angina pectoris chronic Essential hypertension chron ic Paroxysmal atrial fibrillation chronic Pure hypercholesterolemia ch [facility] Dyspnea acute Fatigue acute Atherosclerotic heart diseas e of [place] coronary artery without angina pectoris chronic Essential hypertension chron ic Paroxysmal atrial fibrillation chronic Pure hypercholesterolemia [facility] Work Phone: Evaluation note* Diagnosis Hypothyroidism, unspecified type documented [facility] this encounter [facility]* Diagnosis Personal history of venous thrombosis and embolism [facility]* Diagnosis Urinary frequency- Primary documented [facility] this encounter [facility]* Diagnosis Personal history of venous thrombosis and embolism documented [facility] this encounter [facility]* Diagnosis Onset Date Resolution Status Dyspnea acute Fatigue acute Atherosclerotic heart diseas e of [place] coronary artery without angina pectoris chronic Essential hypertension chron ic Paroxysmal atrial fibrillation chronic Pure hypercholesterolemia ch [place] Dyspnea acute Fatigue acute Atherosclerotic heart diseas e of [place] coronary artery without angina pectoris chronic Essential hypertension chron ic Paroxysmal atrial fibrillation chronic Pure hypercholesterolemia [facility] [place] Dyspnea acute Fatigue acute Atherosclerotic heart diseas e of [place] coronary artery without angina pectoris chronic Essential hypertension chron ic Paroxysmal atrial fibrillation chronic Pure hypercholesterolemia [facility] Work Phone: Evaluation note* Diagnosis Personal history of venous thrombosis and embolism Atrial fibrillation, unspecified type (HCC) documented in this encounter [facility]* Diagnosis Onset Date Resolution Status Dyspnea acute Fatigue acute Atherosclerotic heart diseas e of [place] coronary artery without angina pectoris chronic Essential hypertension chron ic Paroxysmal atrial fibrillation chronic Pure hypercholesterolemia [facility] [place] Dyspnea acute Fatigue acute Atherosclerotic heart diseas e of [place] coronary artery without angina pectoris chronic Essential hypertension chron ic Paroxysmal atrial fibrillation chronic Pure hypercholesterolemia [facility] Dyspnea acute Atherosclerotic heart diseas e of [place] coronary artery without angina pectoris chronic Essential hypertension chron ic Paroxysmal atrial fibrillation chronic Pure hypercholesterolemia [facility] Work Phone: Evaluation note* Diagnosis Onset Date Resolution Status Dyspnea acute Fatigue acute Atherosclerotic heart diseas e of [place] coronary artery without angina pectoris chronic Essential hypertension chron ic Paroxysmal atrial fibrillation chronic Pure hypercholesterolemia ch [place] Dyspnea acute Atherosclerotic heart diseas e of [place] coronary artery without angina pectoris chronic Essential hypertension chron ic Paroxysmal atrial fibrillation chronic Pure hypercholesterolemia ch [place] Dyspnea acute Atherosclerotic heart diseas e of [place] coronary artery without angina pectoris chronic Essential hypertension chron ic Paroxysmal atrial fibrillation chronic Pure hypercholesterolemia [facility] Work Phone: Evaluation note* Diagnosis Onset Date Resolution Status Dyspnea acute Atherosclerotic heart diseas e of [place] coronary artery without angina pectoris chronic Essential hypertension chron ic Paroxysmal atrial fibrillation chronic [facility] acute Atherosclerotic heart diseas e of [place] coronary artery without angina pectoris chronic Essential hypertension chron ic Paroxysmal atrial fibrillation chronic Pure hypercholesterolemia [facility] Ovarian cancer chronic Paroxysmal atrial fibrillation [facility] Work Phone: Evaluation note* Diagnosis Encounter for long-term (current) use of medications- Primary Encounter for long-term (current) use of other medications documented [facility] this encounter [facility]* Diagnosis Onset Date Resolution Status Dyspnea acute Atherosclerotic heart diseas e of [place] coronary artery without angina pectoris chronic Essential hypertension chron ic Paroxysmal atrial fibrillation chronic [facility]olesterolemia [facility] Dyspnea acute Atherosclerotic heart diseas e of [place] coronary artery without angina pectoris chronic Essential hypertension chron ic Paroxysmal atrial fibrillation chronic Pure hypercholesterolemia [facility] Ovarian cancer chronic Paroxysmal atrial fibrillation chronic Dyspnea acute Atherosclerotic heart diseas e of [place] coronary artery without angina pectoris chronic Essential hypertension chron ic Paroxysmal atrial fibrillation chronic Pure hypercholesterolemia [facility] Work Phone: Evaluation note* Diagnosis 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 Mixed incontinence urge and stress (male)(female) documented [facility] encounter [facility]* Diagnosis Viral URI with cough- Primary Acute upper respiratory infections of unspecified site documented [facility] encounter [facility]* Diagnosis COVID-19- Primary [facility]* Diagnosis Urinary incontinence, unspecified type- Primary [facility]* Diagnosis Onset Date Resolution Status Atrial fibrillation chronic Coronary artery disease 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 Dyslipidemia chronic H/O coronary artery bypass surgery 1999 chronic History of pulmonary embolism chronic Hypertension chronic Stented coronary artery October 18, 2007 [facility] Work Phone: Evaluation note* Diagnosis Urinary frequency- Primary documented [facility] encounter [facility]* Diagnosis Atherosclerosis of [place] coronary artery of [place] heart without angina pectoris Hyperlipidemia, unspecified hyperlipidemia type Essential hypertension, benign documented [facility] encounter [facility]* Diagnosis Essential hypertension, benign- Primary Hyperlipidemia, unspecified hyperlipidemia type Chronic kidney disease, stage 3a (HCC) Hypothyroidism, unspecified type Gastroesophageal reflux disease, unspecified whether esophagitis present Vitamin D deficiency Unspecified vitamin D deficiency Urinary incontinence, unspecified type Atherosclerosis of [place] coronary artery of [place] heart without angina pectoris Atrial fibrillation, unspecified type (HCC) Deep vein thrombosis (DVT) of lower extremity, unspecified chronicity, unspecified laterality, unspecified vein (HCC) Malignant neoplasm of ovary, unspecified laterality (HCC) documented in this encounter [facility] noteNo assessment information availableWThe [facility] Work Phone: Evaluation note* Diagnosis Essential hypertension, benign- Primary Atrial fibrillation, unspecified type (HCC) Chronic kidney disease, stage 3a (HCC) Need for vaccination Need for prophylactic vaccination and inoculation against unspecified single disease Encounter for screening mammogram for malignant neoplasm of breast Other screening mammogram Atherosclerosis of [place] coronary artery of [place] heart without angina pectoris Gastroesophageal reflux disease, unspecified whether esophagitis present Hypothyroidism, unspecified type Obesity, Class II, BMI 35-39.9 Obesity, unspecified Vitamin D deficiency Unspecified vitamin D deficiency documented in this encounter [facility] note* Diagnosis Encounter for screening mammogram for malignant neoplasm of breast Other screening mammogram documented in this encounter [facility] note* Diagnosis Viral URI with cough Acute upper respiratory infections of unspecified site documented in this encounter [facility] note* Diagnosis Fall, initial encounter documented in this encounter [facility] note* Diagnosis Acute pain of right shoulder documented in this encounter [facility] note* Diagnosis Atherosclerosis of [place] coronary artery of [place] heart without angina pectoris Hyperlipidemia, unspecified hyperlipidemia type Essential hypertension, benign documented in this encounter [facility] note* Diagnosis Essential hypertension, benign- Primary Hyperlipidemia, unspecified hyperlipidemia type Atrial fibrillation, unspecified type (HCC) Deep vein thrombosis (DVT) of lower extremity, unspecified chronicity, unspecified laterality, unspecified vein (HCC) Atherosclerosis of [place] coronary artery of [place] heart without angina pectoris Hypothyroidism, unspecified type Chronic kidney disease, stage 3a (HCC) Gastroesophageal reflux disease, unspecified whether esophagitis present Urinary incontinence, unspecified type Vitamin D deficiency Unspecified vitamin D deficiency documented in this encounter [facility] note* Diagnosis Acute UTI- Primary Urinary tract infection, site not specified documented in this encounter [facility] note* Diagnosis Nonrheumatic aortic (valve) stenosis- Primary documented in this encounter [facility] note* Diagnosis Acute on chronic systolic heart failure (HCC)- Primary Acute on chronic systolic heart failure Left ventricular hypertrophy Cardiomegaly Typical atrial flutter (HCC) Essential hypertension Unspecified essential hypertension Coronary artery disease involving [place] coronary artery of [place] heart without angina pectoris Paroxysmal atrial fibrillation (HCC) Atrial fibrillation Chronic diastolic heart failure (HCC) Chronic diastolic heart failure S/P CABG (coronary artery bypass graft) Postsurgical aortocoronary bypass status Mixed hyperlipidemia documented in this encounter [facility] note* Diagnosis Chronic HFrEF (heart failure with reduced ejection fraction) (HCC)- Primary Chronic HFrEF (heart failure with reduced ejection fraction) (HCC)- Primary Persistent atrial fibrillation (HCC) Atrial fibrillation Coronary artery disease involving [place] coronary artery of [place] heart without angina pectoris documented in this encounter [facility] note* Diagnosis Typical atrial flutter (HCC) Persistent atrial fibrillation (HCC) Atrial fibrillation Chronic HFrEF (heart failure with reduced ejection fraction) (HCC)- Primary Persistent atrial fibrillation (HCC) Atrial fibrillation Coronary artery disease involving [place] coronary artery of [place] heart without angina pectoris documented in this encounter [facility] note* Diagnosis Atrial fibrillation, unspecified type (HCC)- Primary Atrial fibrillation, unspecified type (HCC) Hyponatremia Hyposmolality and/or hyponatremia Chronic HFrEF (heart failure with reduced ejection fraction) (HCC)- Primary Persistent atrial fibrillation (HCC) Atrial fibrillation Coronary artery disease involving [place] coronary artery of [place] heart without angina pectoris documented in this encounter [facility] note* Diagnosis Persistent atrial fibrillation (HCC)- Primary Atrial fibrillation Acute on chronic systolic heart failure (HCC) Acute on chronic systolic heart failure Atrial flutter, unspecified type (HCC) Chronic HFrEF (heart failure with reduced ejection fraction) (HCC) Essential hypertension Unspecified essential hypertension Coronary artery disease involving [place] coronary artery of [place] heart without angina pectoris S/P CABG (coronary artery bypass graft) Postsurgical aortocoronary bypass status documented in this encounter [facility] note* Diagnosis Palpitation- Primary Palpitations documented in this encounter [facility] note* Diagnosis Persistent atrial fibrillation (HCC)- Primary Atrial fibrillation Palpitation Palpitations Systolic heart failure, chronic (HCC) Coronary artery disease involving [place] coronary artery of [place] heart without angina pectoris [facility] Diagnosis Persistent atrial fibrillation (HCC)- Primary Atrial fibrillation [facility] Diagnosis Abnormal EKG- Primary Nonspecific abnormal electrocardiogram (ECG) (EKG) Persistent atrial fibrillation (HCC) Atrial fibrillation [facility]* Attachments The following attachments cannot be sent through Care Everywhere. * [facility] CV CARDIOVERSION DISCHARGE * Atrial Fibrillation (Tongan) * Cardioversion Discharge Instructions (Tongan) [facility] (narrative)* Diagnostic Procedure Only (Urgent) - Closed Specialty Diagnoses / Procedures Referred By Contac t Referred To Contact XR IMAGING Diagnoses Fall, initial encounter Procedures XR KNEE GENERAL 4V AP BOTH/PA BOTH/LAT/MERC LEFT RADIOLOGIC EXAM KNEE COMPLETE 4/MORE VIEWS Sylwia Mcleod APRN.CNP [address] [place] [address] Xr Imaging Referral ID Status Reason Start Date Expiration Date V isits Requested Visits Authorized [id number] Closed Auto-Generate d Referral 01/19/2022 02/18/2023 1 1 [facility] for referral (narrative)* Diagnostic Procedure Only (Routine) - Closed Specialty Diagnoses / Procedures Referred By Serene vidales Referred To Contact BR IMAGING Diagnoses Encounter for screening mammogram for malignant neoplasm of breast Procedures HERMELINDA SCREENING SCREENING MAMMOGRAPHY BI 2-VIEW BREAST INC CAD Samantha Reyes MD [address] [place] [address] [facility] Imaging [address] [place] [address] Referral ID Status Reason Start Date Expiration Date V isits Requested Visits Authorized [id number] Closed Auto-Generate d Referral 10/11/2023 11/09/2024 1 1 [facility] for referral (narrative)* Diagnostic Procedure Only (Urgent) - Closed Specialty Diagnoses / Procedures Referred By Contac t Referred To Contact XR IMAGING Diagnoses Fall, initial encounter Procedures XR KNEE GENERAL 4V AP BOTH/PA BOTH/LAT/MERC LEFT RADIOLOGIC EXAM KNEE COMPLETE 4/MORE VIEWS Sywlia Mcleod APRN.CNP [address] [place] [address] [place] [address] Referral ID Status Reason Start Date Expiration Date V isits Requested Visits Authorized [id number] Closed Auto-Generate d Referral 01/19/2022 02/18/2023 1 1 [facility] for referral (narrative)No reason for referral information availableWThe [facility] Work Phone: Reason for visit Narrative* Diagnostic Procedure Only (Routine) - Closed Specialty Diagnoses / Procedures Referred By Contac t Referred To Contact BR IMAGING Diagnoses Encounter for screening mammogram for malignant neoplasm of breast Procedures HERMELINDA SCREENING SCREENING MAMMOGRAPHY BI 2-VIEW BREAST INC Samantha Bautista MD [address] [place] [address] Br Imaging [address] [place] [address] Referral ID Status Reason Start Date Expiration Date V isits Requested Visits Authorized [id number] Closed Auto-Generate d Referral 10/11/2023 11/09/2024 1 1 [facility] for visit Narrative* Diagnostic Procedure Only (Urgent) - Closed Specialty Diagnoses / Procedures Referred By Contac t Referred To Contact XR IMAGING Diagnoses Fall, initial encounter Procedures XR KNEE GENERAL 4V AP BOTH/PA BOTH/LAT/MERC LEFT RADIOLOGIC EXAM KNEE COMPLETE 4/MORE VIEWS Sylwia Mcleod APRN.GREY [employer]ER [address] [place] [address] [place] [address] Referral ID Status Reason Start Date Expiration Date V isits Requested Visits Authorized [id number] Closed Auto-Generate d Referral 01/19/2022 02/18/2023 1 1 [facility] for visit Narrative* Diagnostic Procedure Only (Urgent) - Closed Specialty Diagnoses / Procedures Referred By Contac t Referred To Contact XR IMAGING Diagnoses Acute pain of left knee Procedures XR KNEE GENERAL 4V AP BOTH/PA BOTH/LAT/MERC LT KNEE AP-WGT/LAT/MERCHANT Chaim Liss L, PA-C [address] [place] [address] [facility] [id number] Referral ID Status Reason Start Date Expiration Date V isits Requested Visits Authorized [id number] Closed Auto-Generate d Referral 04/04/2021 05/04/2022 1 1 [facility] for visit Narrative* Cardiology (Routine) - Closed Specialty Diagnoses / Procedures Referred By Contac t Referred To Contact Cardiology Diagnoses Typical atrial flutter (HCC) Procedures Cardioversion external Maggie Huggins MD [address] [place] [id number] Phone: tel: fax: Referral ID Status Reason Start Date Expiration Date Visits Re quested Visits Authorized [id number] Closed 11/11/2024 11/06/2025 1 1 [facility] for visit Narrative* Auth/Cert (Routine) Specialty Diagnoses / Procedures Referred By Contmadonna t Referred To Contact Diagnoses Atrial fibrillation, unspecified type (HCC) Procedures .. Richie Whitney MD [address] [place] [address] Phone: tel: fax: LOC[facility] [address] [place] [phone] Phone: tel: Referral ID Status Reason Start Date Expiration Date Visits Re quested Visits Authorized [id number] 1 1 [facility] Summary Purpose Family History No Family History Records Found Relationship Condition Age at Onset Recorded Date/T emmanuel brother Hypertension Unknown Malignant neoplasm Unknown mother Cerebrovascular accident (CVA) Unknown Hypertension Unknown Relationship Condition Age at Onset Recorded Date/T emmanuel Not Specified Presence of stent in coronary artery Unk nown Lightheadedness Unknown Atrial fibrillation Unknown longterm current us e of anticoagulant therapy Unknown [...] Yes January 2:57pm Living Will Yes July 14 020 2:44am Power of Plaster Lather Yes July 14, 2019 2:44am Advance Directive Response Recorded Date/ Time Name of Medical Power of Plaster Lather Jamir Rivers November 10, 2021 10:58pm Advance Directives Yes January 2:57pm Living Will Yes November 10, 2021 10:58pm Power of Plaster Lather Yes November 10 10:58pm Advance Directive Response Recorded Date/ Time Name of Medical Power of Plaster Lather Jamir Rivers November 10, 2021 10:58pm Name of Medical Power of Plaster Lather JAMIR RIVERS- HENRRY February 03, 2022 11:24am Advance Directives Yes January 2:57pm Living Will Yes February 03 11:24am Power of Plaster Lather Yes February 03, 2022 11:24am Advance Directive Response Recorded Date/ Time Name of Medical Power of Plaster Lather JAMIR RIVERS- HENRRY February 03, 2022 11:24am Advance Directives No March 20, 2022 7:53am Living Will No March 20 7:53am Power of Plaster Lather No March 20, 2022 7:53am Advance Directive Response Recorded Date/ Time Name of Medical Power of Plaster Lather JAMIR RIVERS- HENRRY February 03, 2022 10:24am Advance Directives No March 20, 2022 6:53am Living Will No March 20 6:53am Power of Plaster Lather No March 20, 2022 6:53am Advance Directive Response Recorded Date/ Time Advance Directives No March 20, 2022 6:53am Living Will No March 20 6:53am Power of Plaster Lather No March 20, 2022 6:53am Advance Directive Response Recorded Date/ Time Advance Directives on File No 2022 10:58am Name of Medical Power of Plaster Lather jamir jones usband July 11, 2022 10:58am Advance Directives Yes June 10:58am Living Will Yes July 11, 023 10:58am Power of Plaster Lather Yes July 11, 2022 10:58am Advance Directive Response Recorded Date/ Time Advance Directives on File No 2022 11:58am Name of Medical Power of Plaster Lather jamir rivers-amara usband July 11, 2022 11:58am Advance Directives Yes June 11:58am Living Will Yes July 11, 023 11:58am Power of Plaster Lather Yes July 11, 2022 11:58am Advance Directive Response Recorded Date/ Time Advance Directives Yes June 11:58am Living Will Yes July 11, 023 11:58am Power of Plaster Lather Yes July 11, 2022 11:58am Advance Directive Response Recorded Date/ Time Name of Medical Power of Plaster Lather RIVERA -SPOUSE March 21, 2023 9:38am Advance Directives Yes June 11:58am Living Will Yes March 21 9:38am Power of Plaster Lather Yes March 21, 2023 9:38am Advance Directive Response Recorded Date/ Time Name of Medical Power of Plaster Lather RIVERA -SPOUSE March 21, 2023 8:38am Advance Directives Yes June 10:58am Living Will No April 08 9:51pm Power of Plaster Lather No April 08, 2023 9:51pm Advance Directive Response Recorded Date/ Time Advance Directives Yes June 11:58am Living Will No April 08 10:51pm Power of Plaster Lather No April 08, 2023 10:51pm Advance Directive Response Recorded Date/ Time Living Will No September 15, 2024 8:29am Do you have a Healthcare Power of Plaster Lather? No September 15, 2024 8:29am Advance Directives on File Yes October 022024 7:31am Living Will Yes October 02, 2024 7: 31am Do you have a Healthcare Power of Plaster Lather? Yes October 02, 2024 7:31am Name of Medical Power of Plaster Lather jamir October 02, 2024 7:31am Advance Directives Yes October 02, 2024 7:31am Advance Directive Response Recorded Date/ Time Living Will No September 15, 2024 8:29am Do you have a Healthcare Power of Plaster Lather? No September 15, 2024 8:29am Advance Directives on File Yes October 022024 7:31am Living Will Yes October 02, 2024 7: 31am Do you have a Healthcare Power of Plaster Lather? Yes October 02, 2024 7:31am Name of Medical Power of Plaster Lather jamir October 02, 2024 7:31am Advance Directives Yes October 02, 2024 7:31am Do you have a Healthcare Power of Plaster Lather? 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 Advance Directives and Living Will [...] heaviness Dyspnea Fatigue Atherosclerotic heart disease of [place] coronary artery without angina pectoris Essential hypertension Paroxysmal atrial fibrillation Pure hypercholesterolemia Chief Complaint SCREENING 6 M FU E ORDERS CAD LEXISCAN Reason for Visit Chest heaviness Dyspnea Fatigue Atherosclerotic heart disease of [place] coronary artery without angina pectoris Essential hypertension Paroxysmal atrial fibrillation Pure hypercholesterolemia Chief Complaint 6 M FU E ORDERS CAD LEXISCAN chest pain 3 M FU E ORDER Reason for Visit Chest heaviness Dyspnea Fatigue Atherosclerotic heart disease of [place] coronary artery without angina pectoris Essential hypertension Paroxysmal atrial fibrillation Pure hypercholesterolemia Dyspnea Fatigue Atherosclerotic heart disease of [place] coronary artery without angina pectoris Essential hypertension Paroxysmal atrial fibrillation Pure hypercholesterolemia Chief Complaint 6 M FU E ORDERS CAD LEXISCAN chest pain 3 M FU E ORDER DYSPNEA DYSPNEA Reason for Visit Chest heaviness Dyspnea Fatigue Atherosclerotic heart disease of [place] coronary artery without angina pectoris Essential hypertension Paroxysmal atrial fibrillation Pure hypercholesterolemia Dyspnea Fatigue Atherosclerotic heart disease of [place] coronary artery without angina pectoris Essential hypertension Paroxysmal atrial fibrillation Pure hypercholesterolemia Chief Complaint CAD LEXISCAN chest pain 3 M FU E ORDER DYSPNEA DYSPNEA STAT LABS CCF sob Reason for Visit Dyspnea Fatigue Atherosclerotic heart disease of [place] coronary artery without angina pectoris Essential hypertension Paroxysmal atrial fibrillation Pure hypercholesterolemia Chief Complaint CAD LEXISCAN chest pain 3 M FU E ORDER DYSPNEA DYSPNEA STAT LABS CCF sob 6 wk FU E ORDER Reason for Visit Dyspnea Fatigue Atherosclerotic heart disease of [place] coronary artery without angina pectoris Essential hypertension Paroxysmal atrial fibrillation Pure hypercholesterolemia Dyspnea Fatigue Atherosclerotic heart disease of [place] coronary artery without angina pectoris Essential hypertension Paroxysmal atrial fibrillation Pure hypercholesterolemia Chief Complaint 3 M FU E ORDER DYSPNEA DYSPNEA STAT LABS CCF sob 6 wk FU E ORDER 6 wk FU ATRIAL FIBRILLATION Reason for Visit Dyspnea Fatigue Atherosclerotic heart disease of [place] coronary artery without angina pectoris Essential hypertension Paroxysmal atrial fibrillation Pure hypercholesterolemia Dyspnea Fatigue Atherosclerotic heart disease of [place] coronary artery without angina pectoris Essential hypertension Paroxysmal atrial fibrillation Pure hypercholesterolemia Dyspnea Fatigue Atherosclerotic heart disease of [place] coronary artery without angina pectoris Essential hypertension Paroxysmal atrial fibrillation Pure hypercholesterolemia Chief Complaint 3 M FU E ORDER DYSPNEA DYSPNEA STAT LABS CCF sob 6 wk FU E ORDER 6 wk FU ATRIAL FIBRILLATION NEED ORDER Reason for Visit Dyspnea Fatigue Atherosclerotic heart disease of [place] coronary artery without angina pectoris Essential hypertension Paroxysmal atrial fibrillation Pure hypercholesterolemia Dyspnea Fatigue Atherosclerotic heart disease of [place] coronary artery without angina pectoris Essential hypertension Paroxysmal atrial fibrillation Pure hypercholesterolemia Dyspnea Fatigue Atherosclerotic heart disease of [place] coronary artery without angina pectoris Essential hypertension Paroxysmal atrial fibrillation Pure hypercholesterolemia Chief Complaint 3 M FU E ORDER DYSPNEA DYSPNEA STAT LABS CCF sob 6 wk FU E ORDER 6 wk FU ATRIAL FIBRILLATION NEED ORDER INT LABS Reason for Visit Dyspnea Fatigue Atherosclerotic heart disease of [place] coronary artery without angina pectoris Essential hypertension Paroxysmal atrial fibrillation Pure hypercholesterolemia Dyspnea Fatigue Atherosclerotic heart disease of [place] coronary artery without angina pectoris Essential hypertension Paroxysmal atrial fibrillation Pure hypercholesterolemia Dyspnea Fatigue Atherosclerotic heart disease of [place] coronary artery without angina pectoris Essential hypertension Paroxysmal atrial fibrillation Pure hypercholesterolemia Chief Complaint STAT LABS CCF sob 6 wk FU E ORDER 6 wk FU ATRIAL FIBRILLATION NEED ORDER INT LABS INT LABS 6 M FU Reason for Visit Dyspnea Fatigue Atherosclerotic heart disease of [place] coronary artery without angina pectoris Essential hypertension Paroxysmal atrial fibrillation Pure hypercholesterolemia Dyspnea Fatigue Atherosclerotic heart disease of [place] coronary artery without angina pectoris Essential hypertension Paroxysmal atrial fibrillation Pure hypercholesterolemia Dyspnea Atherosclerotic heart disease of [place] coronary artery without angina pectoris Essential hypertension Paroxysmal atrial fibrillation Pure hypercholesterolemia Chief Complaint 6 wk FU ATRIAL FIBRILLATION NEED ORDER INT LABS INT LABS 6 M FU 1 MO (UPDATE H&P) E ORDER NEED ORDER FROM DOE MARTINEZ Reason for Visit Dyspnea Fatigue Atherosclerotic heart disease of [place] coronary artery without angina pectoris Essential hypertension Paroxysmal atrial fibrillation Pure hypercholesterolemia Dyspnea Atherosclerotic heart disease of [place] coronary artery without angina pectoris Essential hypertension Paroxysmal atrial fibrillation Pure hypercholesterolemia Dyspnea Atherosclerotic heart disease of [place] coronary artery without angina pectoris Essential hypertension Paroxysmal atrial fibrillation Pure hypercholesterolemia Chief Complaint ATRIAL FIBRILLATION NEED ORDER INT LABS INT LABS 6 M FU 1 MO (UPDATE H&P) E ORDER NEED ORDER FROM DOE MARTINEZ 1YR LABS Atrial fibrillation AFIB Atrial fibrillation Atrial fibrillation Reason for Visit Dyspnea Atherosclerotic heart disease of [place] coronary artery without angina pectoris Essential hypertension Paroxysmal atrial fibrillation Pure hypercholesterolemia Dyspnea Atherosclerotic heart disease of [place] coronary artery without angina pectoris Essential hypertension Paroxysmal atrial fibrillation Pure hypercholesterolemia Ovarian cancer Paroxysmal atrial fibrillation Chief Complaint NEED ORDER INT LABS INT LABS 6 M FU 1 MO (UPDATE H&P) E ORDER NEED ORDER FROM DOE MARTINEZ 1YR LABS Atrial fibrillation AFIB Atrial fibrillation Atrial fibrillation 1 wk s/p DCCV E ORDER EORDER Reason for Visit Dyspnea Atherosclerotic heart disease of [place] coronary artery without angina pectoris Essential hypertension Paroxysmal atrial fibrillation Pure hypercholesterolemia Dyspnea Atherosclerotic heart disease of [place] coronary artery without angina pectoris Essential hypertension Paroxysmal atrial fibrillation Pure hypercholesterolemia Ovarian cancer Paroxysmal atrial fibrillation Chief Complaint INT LABS INT LABS 6 M FU 1 MO (UPDATE H&P) E ORDER NEED ORDER FROM DOE MARTINEZ 1YR LABS Atrial fibrillation AFIB Atrial fibrillation Atrial fibrillation 1 wk s/p DCCV E ORDER EORDER Reason for Visit Dyspnea Atherosclerotic heart disease of [place] coronary artery without angina pectoris Essential hypertension Paroxysmal atrial fibrillation Pure hypercholesterolemia Dyspnea Atherosclerotic heart disease of [place] coronary artery without angina pectoris Essential hypertension Paroxysmal atrial fibrillation Pure hypercholesterolemia Ovarian cancer Paroxysmal atrial fibrillation Chief Complaint INT LABS INT LABS 6 M FU 1 MO (UPDATE H&P) E ORDER NEED ORDER FROM DOE MARTINEZ 1YR LABS Atrial fibrillation AFIB Atrial fibrillation Atrial fibrillation 1 wk s/p DCCV E ORDER EORDER E ORDER Reason for Visit Dyspnea Atherosclerotic heart disease of [place] coronary artery without angina pectoris Essential hypertension Paroxysmal atrial fibrillation Pure hypercholesterolemia Dyspnea Atherosclerotic heart disease of [place] coronary artery without angina pectoris Essential hypertension [...] for Visit Dyspnea Atherosclerotic heart disease of [place] coronary artery without angina pectoris Essential hypertension Paroxysmal atrial fibrillation Pure hypercholesterolemia Dyspnea Atherosclerotic heart disease of [place] coronary artery without angina pectoris Essential hypertension Paroxysmal atrial fibrillation Pure hypercholesterolemia Ovarian cancer Paroxysmal atrial fibrillation Dyspnea Atherosclerotic heart disease of [place] coronary artery without angina pectoris Essential hypertension [...] Referred By Serene t Referred To Contact Urology Diagnoses Urinary incontinence, unspecified type Procedures CONSULT TO UROLOGY Charles Chavez, BERRY.GREY TENDER [address] [place] [address] Referral ID Status Reason Start Date Expiration Date Visits Requested Visits Authorized [id number] Ref Not Required PCP Requested Referral 12/04/2022 12/04/2023 1 1 Additional Source Comments INFORMATION SOURCE (unrecogn ized section and content) DATE CREATED AUTHOR 06/05/2019 Chrissy Jones [facility] DATE CREATED AUTHOR AUTHOR'S ORGANIZ ATION [facility] DATE CREATED AUTHOR AUTHOR'S ORGANIZ ATION 10/23/2024 [facility] DATE CREATED AUTHOR AUTHOR'S ORGANIZ ATION 12/04/2024 [facility] DATE CREATED AUTHOR AUTHOR'S ORGANIZ ATION 12/09/2024 [facility] DATE CREATED AUTHOR AUTHOR'S ORGANIZ ATION 12/10/2024 [facility] DATE CREATED AUTHOR AUTHOR'S ORGANIZ ATION 01/22/2025 [facility] DATE CREATED AUTHOR AUTHOR'S ORGANIZ ATION 02/03/2025 [facility] al Source Comments (unrecognize d section and content) In the event this informatio n is protected by the Federal Confidentiality of Alcohol and Drug Abuse Patient Records regulations: The Federal rules restrict any use of the information to criminally investigate or prosecute any alcohol or drug abuse patient.[facility] the event this information is protected by the Federal Confidentiality of Alcohol and Drug Abuse Patient Records regulations: The Federal rules restrict any use of the information to criminally investigate or prosecute any alcohol or drug abuse patient.[facility] the event this information is protected by the Federal Confidentiality of Alcohol and Drug Abuse Patient Records regulations: The Federal rules restrict any use of the information to criminally investigate or prosecute any alcohol or drug abuse patient.[facility] the event this information is protected by the Federal Confidentiality of Alcohol and Drug Abuse Patient Records regulations: The Federal rules restrict any use of the information to criminally investigate or prosecute any alcohol or drug abuse patient.[facility] the event this information is protected by the Federal Confidentiality of Alcohol and Drug Abuse Patient Records regulations: The Federal rules restrict any use of the information to criminally investigate or prosecute any alcohol or drug abuse patient.[facility] the event this information is protected by the Federal Confidentiality of Alcohol and Drug Abuse Patient Records regulations: The Federal rules restrict any use of the information to criminally investigate or prosecute any alcohol or drug abuse patient.[facility] the event this information is protected by the Federal Confidentiality of Alcohol and Drug Abuse Patient Records regulations: The Federal rules restrict any use of the information to criminally investigate or prosecute any alcohol or drug abuse patient.[facility] the event this information is protected by the Federal Confidentiality of Alcohol and Drug Abuse Patient Records regulations: The Federal rules restrict any use of the information to criminally investigate or prosecute any alcohol or drug abuse patient.[facility] the event this information is protected by the Federal Confidentiality of Alcohol and Drug Abuse Patient Records regulations: The Federal rules restrict any use of the information to criminally investigate or prosecute any alcohol or drug abuse patient.[facility] the event this information is protected by the Federal Confidentiality of Alcohol and Drug Abuse Patient Records regulations: The Federal rules restrict any use of the information to criminally investigate or prosecute any alcohol or drug abuse patient.[facility] the event this information is protected by the Federal Confidentiality of Alcohol and Drug Abuse Patient Records regulations: The Federal rules restrict any use of the information to criminally investigate or prosecute any alcohol or drug abuse patient.[facility] the event this information is protected by the Federal Confidentiality of Alcohol and Drug Abuse Patient Records regulations: The Federal rules restrict any use of the information to criminally investigate or prosecute any alcohol or drug abuse patient.[facility] the event this information is protected by the Federal Confidentiality of Alcohol and Drug Abuse Patient Records regulations: The Federal rules restrict any use of the information to criminally investigate or prosecute any alcohol or drug abuse patient.[facility] the event this information is protected by the Federal Confidentiality of Alcohol and Drug Abuse Patient Records regulations: The Federal rules restrict any use of the information to criminally investigate or prosecute any alcohol or drug abuse patient.[facility] the event this information is protected by the Federal Confidentiality of Alcohol and Drug Abuse Patient Records regulations: The Federal rules restrict any use of the information to criminally investigate or prosecute any alcohol or drug abuse patient.[facility] Hospital[facility] the event this information is protected by the Federal Confidentiality of Alcohol and Drug Abuse Patient Records regulations: The Federal rules restrict any use of the information to criminally investigate or prosecute any alcohol or drug abuse patient.[facility] HospitalIn the event this information is protected by the Federal Confidentiality of Alcohol and Drug Abuse Patient Records regulations: The Federal rules restrict any use of the information to criminally investigate or prosecute any alcohol or drug abuse patient.[facility] HospitalIn the event this information is protected by the Federal Confidentiality of Alcohol and Drug Abuse Patient Records regulations: The Federal rules restrict any use of the information to criminally investigate or prosecute any alcohol or drug abuse patient.[facility] HospitalIn the event this information is protected by the Federal Confidentiality of Alcohol and Drug Abuse Patient Records regulations: The Federal rules restrict any use of the information to criminally investigate or prosecute any alcohol or drug abuse patient.[facility] HospitalIn the event this information is protected by the Federal Confidentiality of Alcohol and Drug Abuse Patient Records regulations: The Federal rules restrict any use of the information to criminally investigate or prosecute any alcohol or drug abuse patient.[facility] HospitalIn the event this information is protected by the Federal Confidentiality of Alcohol and Drug Abuse Patient Records regulations: The Federal rules restrict any use of the information to criminally investigate or prosecute any alcohol or drug abuse patient.[facility] HospitalIn the event this information is protected by the Federal Confidentiality of Alcohol and Drug Abuse Patient Records regulations: The Federal rules restrict any use of the information to criminally investigate or prosecute any alcohol or drug abuse patient.[facility] HospitalIn the event this information is protected by the Federal Confidentiality of Alcohol and Drug Abuse Patient Records regulations: The Federal rules restrict any use of the information to criminally investigate or prosecute any alcohol or drug abuse patient.[facility] HospitalIn the event this information is protected by the Federal Confidentiality of Alcohol and Drug Abuse Patient Records regulations: The Federal rules restrict any use of the information to criminally investigate or prosecute any alcohol or drug abuse patient.[facility] HospitalIn the event this information is protected by the Federal Confidentiality of Alcohol and Drug Abuse Patient Records regulations: The Federal rules restrict any use of the information to criminally investigate or prosecute any alcohol or drug abuse patient.[facility] HospitalIn the event this information is protected by the Federal Confidentiality of Alcohol and Drug Abuse Patient Records regulations: The Federal rules restrict any use of the information to criminally investigate or prosecute any alcohol or drug abuse patient.[facility] HospitalIn the event this information is protected by the Federal Confidentiality of Alcohol and Drug Abuse Patient Records regulations: The Federal rules restrict any use of the information to criminally investigate or prosecute any alcohol or drug abuse patient.[facility] HospitalIn the event this information is protected by the Federal Confidentiality of Alcohol and Drug Abuse Patient Records regulations: The Federal rules restrict any use of the information to criminally investigate or prosecute any alcohol or drug abuse patient.[facility] HospitalIn the event this information is protected by the Federal Confidentiality of Alcohol and Drug Abuse Patient Records regulations: The Federal rules restrict any use of the information to criminally investigate or prosecute any alcohol or drug abuse patient.[facility] HospitalIn the event this information is protected by the Federal Confidentiality of Alcohol and Drug Abuse Patient Records regulations: The Federal rules restrict any use of the information to criminally investigate or prosecute any alcohol or drug abuse patient.[facility] HospitalIn the event this information is protected by the Federal Confidentiality of Alcohol and Drug Abuse Patient Records regulations: The Federal rules restrict any use of the information to criminally investigate or prosecute any alcohol or drug abuse patient.[facility] HospitalIn the event this information is protected by the Federal Confidentiality of Alcohol and Drug Abuse Patient Records regulations: The Federal rules restrict any use of the information to criminally investigate or prosecute any alcohol or drug abuse patient.[facility] HospitalIn the event this information is protected by the Federal Confidentiality of Alcohol and Drug Abuse Patient Records regulations: The Federal rules restrict any use of the information to criminally investigate or prosecute any alcohol or drug abuse patient.[facility] HospitalIn the event this information is protected by the Federal Confidentiality of Alcohol and Drug Abuse Patient Records regulations: The Federal rules restrict any use of the information to criminally investigate or prosecute any alcohol or drug abuse patient.[facility] HospitalIn the event this information is protected by the Federal Confidentiality of Alcohol and Drug Abuse Patient Records regulations: The Federal rules restrict any use of the information to criminally investigate or prosecute any alcohol or drug abuse patient.[facility] HospitalIn the event this information is protected by the Federal Confidentiality of Alcohol and Drug Abuse Patient Records regulations: The Federal rules restrict any use of the information to criminally investigate or prosecute any alcohol or drug abuse patient.[facility] HospitalIn the event this information is protected by the Federal Confidentiality of Alcohol and Drug Abuse Patient Records regulations: The Federal rules restrict any use of the information to criminally investigate or prosecute any alcohol or drug abuse patient.[facility] HospitalIn the event this information is protected by the Federal Confidentiality of Alcohol and Drug Abuse Patient Records regulations: The Federal rules restrict any use of the information to criminally investigate or prosecute any alcohol or drug abuse patient.[facility] HospitalIn the event this information is protected by the Federal Confidentiality of Alcohol and Drug Abuse Patient Records regulations: The Federal rules restrict any use of the information to criminally investigate or prosecute any alcohol or drug abuse patient.[facility] HospitalIn the event this information is protected by the Federal Confidentiality of Alcohol and Drug Abuse Patient Records regulations: The Federal rules restrict any use of the information to criminally investigate or prosecute any alcohol or drug abuse patient.[facility] HospitalIn the event this information is protected by the Federal Confidentiality of Alcohol and Drug Abuse Patient Records regulations: The Federal rules restrict any use of the information to criminally investigate or prosecute any alcohol or drug abuse patient.[facility] HospitalIn the event this information is protected by the Federal Confidentiality of Alcohol and Drug Abuse Patient Records regulations: The Federal rules restrict any use of the information to criminally investigate or prosecute any alcohol or drug abuse patient.[facility] HospitalIn the event this information is protected by the Federal Confidentiality of Alcohol and Drug Abuse Patient Records regulations: The Federal rules restrict any use of the information to criminally investigate or prosecute any alcohol or drug abuse patient.[facility] HospitalIn the event this information is protected by the Federal Confidentiality of Alcohol and Drug Abuse Patient Records regulations: The Federal rules restrict any use of the information to criminally investigate or prosecute any alcohol or drug abuse patient.[facility] HospitalIn the event this information is protected by the Federal Confidentiality of Alcohol and Drug Abuse Patient Records regulations: The Federal rules restrict any use of the information to criminally investigate or prosecute any alcohol or drug abuse patient.[facility] HospitalIn the event this information is protected by the Federal Confidentiality of Alcohol and Drug Abuse Patient Records regulations: The Federal rules restrict any use of the information to criminally investigate or prosecute any alcohol or drug abuse patient.[facility] HospitalIn the event this information is protected by the Federal Confidentiality of Alcohol and Drug Abuse Patient Records regulations: The Federal rules restrict any use of the information to criminally investigate or prosecute any alcohol or drug abuse patient.[facility] HospitalIn the event this information is protected by the Federal Confidentiality of Alcohol and Drug Abuse Patient Records regulations: The Federal rules restrict any use of the information to criminally investigate or prosecute any alcohol or drug abuse patient.[facility] HospitalIn the event this information is protected by the Federal Confidentiality of Alcohol and Drug Abuse Patient Records regulations: The Federal rules restrict any use of the information to criminally investigate or prosecute any alcohol or drug abuse patient.[facility] HospitalIn the event this information is protected by the Federal Confidentiality of Alcohol and Drug Abuse Patient Records regulations: The Federal rules restrict any use of the information to criminally investigate or prosecute any alcohol or drug abuse patient.[facility] HospitalIn the event this information is protected by the Federal Confidentiality of Alcohol and Drug Abuse Patient Records regulations: The Federal rules restrict any use of the information to criminally investigate or prosecute any alcohol or drug abuse patient.[facility] HospitalIn the event this information is protected by the Federal Confidentiality of Alcohol and Drug Abuse Patient Records regulations: The Federal rules restrict any use of the information to criminally investigate or prosecute any alcohol or drug abuse patient.[facility] HospitalIn the event this information is protected by the Federal Confidentiality of Alcohol and Drug Abuse Patient Records regulations: The Federal rules restrict any use of the information to criminally investigate or prosecute any alcohol or drug abuse patient.[facility] HospitalIn the event this information is protected by the Federal Confidentiality of Alcohol and Drug Abuse Patient Records regulations: The Federal rules restrict any use of the information to criminally investigate or prosecute any alcohol or drug abuse patient.[facility] HospitalIn the event this information is protected by the Federal Confidentiality of Alcohol and Drug Abuse Patient Records regulations: The Federal rules restrict any use of the information to criminally investigate or prosecute any alcohol or drug abuse patient.[facility] HospitalIn the event this information is protected by the Federal Confidentiality of Alcohol and Drug Abuse Patient Records regulations: The Federal rules restrict any use of the information to criminally investigate or prosecute any alcohol or drug abuse patient.[facility] HospitalIn the event this information is protected by the Federal Confidentiality of Alcohol and Drug Abuse Patient Records regulations: The Federal rules restrict any use of the information to criminally investigate or prosecute any alcohol or drug abuse patient.[facility] HospitalIn the event this information is protected by the Federal Confidentiality of Alcohol and Drug Abuse Patient Records regulations: The Federal rules restrict any use of the information to criminally investigate or prosecute any alcohol or drug abuse patient.[facility] HospitalIn the event this information is protected by the Federal Confidentiality of Alcohol and Drug Abuse Patient Records regulations: The Federal rules restrict any use of the information to criminally investigate or prosecute any alcohol or drug abuse patient.[facility] HospitalIn the event this information is protected by the Federal Confidentiality of Alcohol and Drug Abuse Patient Records regulations: The Federal rules restrict any use of the information to criminally investigate or prosecute any alcohol or drug abuse patient.[facility] HospitalIn the event this information is protected by the Federal Confidentiality of Alcohol and Drug Abuse Patient Records regulations: The Federal rules restrict any use of the information to criminally investigate or prosecute any alcohol or drug abuse patient.[facility] the event this information is protected by the Federal Confidentiality of Alcohol and Drug Abuse Patient Records regulations: The Federal rules restrict any use of the information to criminally investigate or prosecute any alcohol or drug abuse patient.[facility] HospitalIn the event this information is protected by the Federal Confidentiality of Alcohol and Drug Abuse Patient Records regulations: The Federal rules restrict any use of the information to criminally investigate or prosecute any alcohol or drug abuse patient.[facility] HospitalIn the event this information is protected by the Federal Confidentiality of Alcohol and Drug Abuse Patient Records regulations: The Federal rules restrict any use of the information to criminally investigate or prosecute any alcohol or drug abuse patient.[facility] HospitalIn the event this information is protected by the Federal Confidentiality of Alcohol and Drug Abuse Patient Records regulations: The Federal rules restrict any use of the information to criminally investigate or prosecute any alcohol or drug abuse patient.[facility] HospitalIn the event this information is protected by the Federal Confidentiality of Alcohol and Drug Abuse Patient Records regulations: The Federal rules restrict any use of the information to criminally investigate or prosecute any alcohol or drug abuse patient.[facility] HospitalIn the event this information is protected by the Federal Confidentiality of Alcohol and Drug Abuse Patient Records regulations: The Federal rules restrict any use of the information to criminally investigate or prosecute any alcohol or drug abuse patient.[facility] HospitalIn the event this information is protected by the Federal Confidentiality of Alcohol and Drug Abuse Patient Records regulations: The Federal rules restrict any use of the information to criminally investigate or prosecute any alcohol or drug abuse patient.[facility] HospitalIn the event this information is protected by the Federal Confidentiality of Alcohol and Drug Abuse Patient Records regulations: The Federal rules restrict any use of the information to criminally investigate or prosecute any alcohol or drug abuse patient.[facility] HospitalIn the event this information is protected by the Federal Confidentiality of Alcohol and Drug Abuse Patient Records regulations: The Federal rules restrict any use of the information to criminally investigate or prosecute any alcohol or drug abuse patient.[facility] HospitalIn the event this information is protected by the Federal Confidentiality of Alcohol and Drug Abuse Patient Records regulations: The Federal rules restrict any use of the information to criminally investigate or prosecute any alcohol or drug abuse patient.[facility] Reason for Visit (unrecogniz ed section and [...] Contact Cardiology Diagnoses Cardiomyopathy, unspecified (HCC) Procedures HI OFFICE/OUTPATIENT ESTABLISHED MOD MDM 30 MIN Azar Cedillo MD [address] [facility] [address] [place] [address] Phone: tel: fax: Maggie Huggins MD [address] [place] [address] Phone: tel: fax: Referral ID Status Reason Start Date Expiration Date Visits Re quested Visits Authorized [id number] Closed 10/10/2024 10/10/2025 1 1 Reason Onset Date Comments Labs Only 11/17/2024 Labs completed Reason Onset Date Comments Procedure 11/11/2024 Reason Onset Date Comments Dizziness 11/28/2024 Reason Onset Date Comments Error (VOID this visit) 11/28/2024 Reason Comments Irregular Heart Beat Pt was at dr. Lexus orozco and having an episode of afib. Hx of afib, takes blood thinner, recent cardioversion Reason Comments Follow-up Atrial Fibrillation Congestive Heart Failure Reason Onset Date Comments Other 12/03/2024 Transfer of care Reason Comments handicap placard renewal rx Reason Comments Initial Visit (Intake) Specialty Diagnoses / Procedures Referred By Contmadonna t Referred To Contact Cardiology Diagnoses Palpitation Maggie Huggins MD [address] [place] [address] Phone: tel: fax: Referral ID Status Reason Start Date Expiration Date Visits Re quested Visits Authorized [id number] Closed 12/08/2024 12/08/2025 1 1 Reason Comments Initial Visit (Intake) Afib discuss Rhyt hm control Specialty Diagnoses / Procedures Referred By Contac t Referred To Contact Cardiology Diagnoses Persistent atrial fibrillation (HCC) Davida Rosa MD [address] [place] [address] Phone: tel: fax: [facility] [address] [place] [address], 3rd [place] [address] Phone: tel: fax: Referral ID Status Reason Start Date Expiration Date Visits Re quested Visits Authorized [id number] Closed 01/05/2025 01/05/2026 1 1 Care Teams (unrecognized sec tion and content) Dope Edger Relationship Specialty Start Date End Date Samantha Reyes MD [address] [place] [address] PCP - General 12/04/07 Dope Edger Relationship Specialty Start Date End Date Samantha Reyes MD [address] [place] [address] PCP - General 12/04/07 Dope Edger Relationship Specialty Start Date End Date Samantha Reyes MD [address] [place] [address] PCP - General 12/04/07 Dope Edger Relationship Specialty Start Date End Date Samantha Reyes MD [address] [place] [address] PCP - General 12/04/07 Dope Edger Relationship Specialty Start Date End Date Samantha Reyes MD [address] [place] [address] PCP - General 12/04/07 Dope Edger Relationship Specialty Start Date End Date Samantha Reyes MD [address] [place] [address] PCP - General 12/04/07 Dope Edger Relationship Specialty Start Date End Date Samantha Reyes MD [address] [place] [address] PCP - General 12/04/07 Dope Edger Relationship Specialty Start Date End Date Samantha Reyes MD [address] [place] [address] PCP - General 12/04/07 Dope Edger Relationship Specialty Start Date End Date Samantha Reyes MD [address] [place] [address] PCP - General 12/04/07 Dope Edger Relationship Specialty Start Date End Date Samantha Reyes MD [address] [facility] [place] [address] PCP - General 12/04/07 Dope Edger Relationship Specialty Start Date End Date Samantha Reyes MD [address] [place] [address] PCP - General 12/04/07 Dope Edger Relationship Specialty Start Date End Date Samantha Reyes MD [address] [place] [address] PCP - General 12/04/07 Dope Edger Relationship Specialty Start Date End Date Samantha Reyes MD [address] [place] [address] PCP - General 12/04/07 Dope Edger Relationship Specialty Start Date End Date Samantha Reyes MD [address] [place] [address] PCP - General 12/04/07 Team Status: Active Member Role Status Dates Dr. Samantha Reyes MD Family Provider Active Dr. Samantha Reyes MD Primary Care Provider Active Team Status: Inactive Member Role Status Dates Dr. Samantha Reyes MD Primary Care Provider, Referr ing Provider Active Doe Martinez INTERNAL AUDIT CONSULTANT, INTERNAL AUDIT CONSULTANT-C Attending Provider Active Team Status: Active Member [...] MD Primary Care Provider Active Doe Martinez INTERNAL AUDIT CONSULTANT, INTERNAL AUDIT CONSULTANT-C Attending Provider Active Team Status: Active Member Role Status Dates Dr. Samantha Reyes MD Primary Care Provider Active Doe Martinez INTERNAL AUDIT CONSULTANT, INTERNAL AUDIT CONSULTANT-C Attending Provider Active Dr. Keegan German MD [...] MD Primary Care Provider Active Doe Martinez INTERNAL AUDIT CONSULTANT, INTERNAL AUDIT CONSULTANT-C Attending Provider Active Dr. Keegan German MD [...] MD Primary Care Provider Active Doe Martinez INTERNAL AUDIT CONSULTANT, INTERNAL AUDIT CONSULTANT-C Attending Provider Active Team Status: Inactive Member Role Status Dates Dr. Samantha Reyes MD Primary Care Provider Active Doe Martinez INTERNAL AUDIT CONSULTANT, INTERNAL AUDIT CONSULTANT-C Attending Provider, Referring P rovider Active Dope Edger Relationship Specialty Start Date End Date Samantha Reyes MD [address] [place] [address] PCP - General 12/04/07 Dope Edger Relationship Specialty Start Date End Date Samantha Reyes MD [address] [place] [address] PCP - General 12/04/07 Team Status: Inactive Member Role Status Dates Dr. Samantha Reyes MD Primary Care Provider, Referr ing Provider Active Dr. Gorge Naik MD Attending Provider Active Team Status: Inactive Member Role Status Dates Dr. Samantha Reyes MD Primary Care Provider Active Dr. Gorge Naik MD Attending Provider, Referring Pr ovider Active Dope Edger Relationship Specialty Start Date End Date Samantha Reyes MD [address] [place] [address] PCP - General 12/04/07 Dope Edger Relationship Specialty Start Date End Date Samantha Reyes MD [address] [place] [address] PCP - General 12/04/07 Dope Edger Relationship Specialty Start Date End Date Samantha Reyes MD [address] [place] [address] PCP - General 12/04/07 Team Status: Inactive [...] Dr. Marizol Frey MD Emergency Provider Active Dope Edger Relationship Specialty Start Date End Date Samantha Reyes MD [address] [place] [address] PCP - General 12/04/07 Dope Edger Relationship Specialty Start Date End Date Samantha Reyes MD [address] [place] [address] PCP - General 12/04/07 Team Status: Inactive Member Role Status Dates Dr. Samantha Reyes MD Primary Care Provider Active Shila Michael PA, PA Attending Provider, Referr ing Provider Active Dope Edger Relationship Specialty Start Date End Date Samantha Reyes MD [address] [place] [address] PCP - General 12/04/07 Dope Edger Relationship Specialty Start Date End Date Samantha Reyes MD [address] [place] [address] PCP - General 12/04/07 Dope Edger Relationship Specialty Start Date End Date Samantha Reyes MD [address] [place] [address] PCP - General 12/04/07 Dope Edger Relationship Specialty Start Date End Date Samantha Reyes MD [address] [place] [address] PCP - General 12/04/07 Dope Edger Relationship Specialty Start Date End Date Samantha Reyes MD [address] [place] [address] PCP - General 12/04/07 Dope Edger Relationship Specialty Start Date End Date Samantha Reyes MD [address] [place] [address] PCP - General 12/04/07 Dope Edger Relationship Specialty Start Date End Date Samantha Reyes MD [address] [place] [address] PCP - General 12/04/07 Dope Edger Relationship Specialty Start Date End Date Samantha Reyes MD [address] [place] [address] PCP - General 12/04/07 Dope Edger Relationship Specialty Start Date End Date Samantha Reyes MD [address] [place] [address] PCP - General 12/04/07 Dope Edger Relationship Specialty Start Date End Date Samantha Reyes MD [address] [place] [address] PCP - General 12/04/07 Faby Snell APRN.GREY TENDER [address] [place] [address] Assurance Sourcing Manager Family Medicine 05/04/24 Charles Chavez APRN.GREY TENDER [address] [place] [address] Assurance Sourcing Manager Family Medicine 05/13/24 Team Status: Active Member Role Status [...] October 01, 2024 End: October 01, 2024 Dope Edger Relationship Specialty Start Date End Date Samantha Reyes MD [address] [place] [address] PCP - General 12/04/07 Faby Snell, [employer].GREY TENDER [address] [place] [address] Assurance Sourcing Manager Family Medicine 05/04/24 Charles Chavez [employer].GREY TENDER [address] [place] [address] Assurance Sourcing Manager Family Medicine 05/13/24 Dope Edger Relationship Specialty Start Date End Date Samantha Reyes [address] [place] [address] PCP - General Family Medicine 10/10/24 Dope Edger Relationship Specialty Start Date End Date Samantha Reyes [address] [place] [address] PCP - General Family Medicine 10/10/24 Dope Edger Relationship Specialty Start Date End Date Samantha Reyes [address] [place] [address] PCP - General Family Medicine 10/10/24 Team [...] November 17, 2024 End: November 17, 2024 Dope Edger Relationship Specialty Start Date End Date MyrnaSamantha cleary [address] [place] [address] PCP - General Family Medicine 10/10/24 Dope Edger Relationship Specialty Start Date End Date Myrnamadiha Samantha [address] [place] [address] PCP - General Family Medicine 10/10/24 Dope Edger Relationship Specialty Start Date End Date Samantha Reyes [address] [place] [address] PCP - General Family Medicine 10/10/24 Dope Edger Relationship Specialty Start Date End Date MyrnamadihaSamantha [address] [place] [address] PCP - General Family Medicine 10/10/24 Dope Edger Relationship Specialty Start Date End Date MyrnamadihaSamantha [address] [place] [address] PCP - General Family Medicine 10/10/24 Dope Edger Relationship Specialty Start Date End Date Samantha Reyes [address] [place] [address] PCP - General Family Medicine 10/10/24 Dope Edger Relationship Specialty Start Date End Date Samantha Reyes [address] [place] [address] PCP - General Family Medicine 10/10/24 Dope Edger Relationship Specialty Start Date End Date Samantha Reyes [address] [facility], [place] [address] PCP - General Family Medicine 10/10/24 Dope Edger Relationship Specialty Start Date End Date Samantha Reyes MD [address] [facility], [place] [address] PCP - General 12/04/07 Charles Chavez, BERRY.GREY TENDER [address] [facility], [place] [address] Assurance Sourcing Manager Family Medicine 05/13/24 Dope Edger Relationship Specialty Start Date End Date Samantha Reyes MD [address] [facility] [address] [place] [address] PCP - General Family Medicine 01/05/25 Dope Edger Relationship Specialty Start Date End Date Samantha Reyes MD [address] [facility] [address] [place] [address], [place] [id number] PCP - General Family Medicine 01/05/25 Dope Edger Relationship Specialty Start Date End Date Samantha Reyes MD [address] [facility] [address] [place] [id number] PCP - General Family Medicine 01/05/25 Dope Edger Relationship Specialty Start Date End Date Samantha Reyes MD [address] [facility] [address] [place] [id number] PCP - General Family Medicine 01/05/25 Goals [...] BE BASED ON THE PRIMARY CLINICAL RECORDS. [employer] provides no warranty or guarantee of the accuracy or completeness of information in this document.
[2025-02-08 21:54] VITALS: BMI 26.1
[2025-02-08] MEDS: 0.9% Saline Lock 10 ML Syringe IV (22:45)
[2025-02-08] MEDS: 0.9% Normal Saline (1000mL) 1,000 ML 100 ML IV (22:45)
[2025-02-08] MEDS: Niacin SA 500 MG Tablet PO (22:46)
[2025-02-08] MEDS: APIXABAN 5 MG TABLET PO (22:47)
[2025-02-08] MEDS: Lactobacillis Acidophilus 1 CAP PO (22:47)
[2025-02-08 22:54] LABS: Troponin T High Sens 4 HR 42 ng/L (<=14)
[2025-02-08 23:00] VITALS: BP 108/69; BP 109/73; BP 85/50; PULSE 113; PULSE 79; PULSE 80; PULSE 92
[2025-02-08 23:03] LABS: Magnesium 1.5 mg/dL (1.5-2.2)
[2025-02-09 00:13] LABS: Osmolality, Urine 385 mOsm/KG
[2025-02-09 00:13] LABS: Osmolality, Serum 287 mOsm/KG (280-301)
[2025-02-09 02:30] VITALS: BP 82/53; PULSE 78; RESP 13; TEMP 36.4; O2SAT 94
[2025-02-09 05:29] VITALS: BMI 25.9
[2025-02-09 05:39] LABS: Hematocrit 31.3 % (37-47); Hemoglobin 10.2 g/dL (12.0-15.0); Immature Granulocytes Count 0.050 X10^3/uL (0.0-0.0); Mean Corp Hgb Conc 32.6 g/dL (32-36); Mean Corpuscular Volume 87.4 fL (81-99); Mean Platelet Vol. 11.6 fl (6.2-12.0); NRBC Flagged by Analyzer 0 % (0-5); Platelet Count 225 K/mm3 (150-450); RBC Distribution Width CV 14.2 % (11.6-14.6); RBC Distribution Width SD 45.8 fl (35.1-43.9); Red Blood Count 3.58 M/mm3 (4.2-5.4); White Blood Count 7.9 K/mm3 (4.4-11.0)
[2025-02-09 06:06] LABS: AST(SGOT) 37 U/L (<=31); Alanine Aminotransfer ALT/SGPT 45 U/L (<=34); Albumin, Serum 3.3 g/dL (3.4-4.8); Alkaline Phosphatase 49 U/L (35-104); Anion Gap 10 (5-15); BUN 32 mg/dL (4-19); BUN/Creat Ratio 14.0 RATIO (10-20); Calcium,Total 10.0 mg/dL (7.6-11.0); Carbon Dioxide 20.6 mmol/L (21.0-32.0); Chloride 104 mmol/L (98-108); Cholesterol 90 mg/dL (<=200); Estimated Creatinine Clearance 17.39 ml/min (50-250); Globulin 1.9 g/dL (2.2-4.2); Glucose 104 mg/dL (70-99); Low Density Lipoprotein Calc. 26 mg/dL; Potassium 3.8 mmol/L (3.3-5.1); Triglycerides 98 mg/dL; Very Low Density Lipoprotein 20 mg/dL (5-40); cholesterol:hdl ratio screen 2.06
[2025-02-09 07:12] LABS: Free T3 1.3 pg/mL (2.18-3.98)
[2025-02-09 09:15] VITALS: BP 92/68; PULSE 78; RESP 18; TEMP 36.8; O2SAT 100
[2025-02-09] MEDS: Aspirin E.C. 81 MG Tablet PO (09:20)
[2025-02-09] MEDS: Lactobacillis Acidophilus 1 CAP PO ×4 (09:21→20:34)
[2025-02-09] MEDS: Potassium Chloride Oral Tablet 20 MEQ PO (09:21)
[2025-02-09] MEDS: APIXABAN 5 MG TABLET PO ×2 (09:22→20:34)
[2025-02-09] MEDS: Niacin SA 500 MG Tablet PO ×2 (09:22→20:34)
[2025-02-09] MEDS: 0.9% Normal Saline (1000mL) 1,000 ML 100 ML IV ×2 (11:51→21:50)
[2025-02-09] MEDS: 0.9% Saline Lock 10 ML Syringe IV (11:53)
[2025-02-09] MEDS: Ensure Plus High Protein 120 ML LIQUID PO (11:55)
--- NOTE | 2025-02-09 12:30 | PN_ITS ---
Subjective Subjective Patient seen and examined. She had no complaints. She denied any fever, chills, cough, chest pain, palpitations, dizziness, nausea, vomiting or any other symptoms. Review of systems otherwise negative. Objective Data Objective Data Vital Signs: Vital Signs Temp Pulse Resp BP Pulse Ox O2 Del Method 98.3 F 78 18 92/68 100 Room Air 02/09/25 09:15 02/09/25 09:15 02/09/25 09:15 02/09/25 09:15 02/09/25 09:02/09/25 10:00 Oxygen Delivery Method Room Air Weight: 151 lb 0.266 oz Body Mass Index (BMI) 25.9 Intake & Output: Intake and Output for Last 24 Hours 02/07/25 02/08/25 02/09/25 23:59 23:59 23:59 Intake Total 1410 / 1410 1360 / 1360 Output Total 350 / 350 Balance 1410 / 1410 1010 / 1010 Medical Nutrition Assessment Dietitian: Malnutrition Criteria Met Start: 02/09/25 10:08 Freq: Status: Active Protocol: Document 02/09/25 10:08 SB (Rec: 02/09/25 10:09 SB [id number]) Nutrition Malnutrition Evidence of Yes Malnutrition Exists Malnutrition (severe Chronic ): Evidenced By Suboptimal Energy Intake (Severe),Weight Loss (Severe) Clinical Problem Chronic Disease or Condition Related Malnutrition Etiology severe related to inadequate oral intake Signs/Symptoms as evidenced by PO meeting <50% of estimated nutrition needs x 3-4 months and 13% unintentional weight loss x 4 months. Status Active Problem Recommendation Dietitian Adjust to liberal regular diet to optimize oral intake. Recommendations/ Will order 120ml EPHP 4x daily with medpass, prefers Changes vanilla. Will monitor weight trends. Lab / Micro Data 02/09/25 04:37 02/09/25 04:37 Labs: Laboratory Results - last 24 hr 02/08/25 18:55: WBC 8.4, RBC 4.41, Hgb 12.3, Hct 39.5, MCV 89.6, MCH 27.9, MCHC 31.1 L, RDW Std Deviation 46.4 H, RDW Coeff of Burke 14.1, Plt Count 256, MPV 11.4, Immature Gran % (Auto) 1.000 H, Neut % (Auto) 66.5, Lymph % (Auto) 18.4 L, Irwin % (Auto) 12.1 H, Eos % (Auto) 1.3, Baso % (Auto) 0.7, Absolute Neuts (auto) 5.6, Absolute Lymphs (auto) 1.55, Nucleated RBC % 0, Sodium 130 L, Potassium 4.5, Chloride 98, Carbon Dioxide 16.9 L, Anion Gap 15, BUN 36 H, Creatinine 2.52 H, Estim Creat Clear Calc 15.92 L, Est GFR (MDRD) Non-Af 18 L, BUN/Creatinine Ratio 14.2, Glucose 135 H, Lactic Acid 1.6, Calcium 11.4 H, Total Bilirubin 0.51, AST 50 H, ALT 55 H, Alkaline Phosphatase 55, Troponin T High Sens 44 H D, Total Protein 6.3, Albumin 3.7, Globulin 2.6, Albumin/Globulin Ratio 1.4 02/08/25 19:40: Urine Color Yellow, Urine Clarity Turbid, Urine pH 6.0, Ur Specific [place] 1.015, Urine Protein 100 H, Urine Glucose (UA) Normal, Urine Ketones Negative, Urine Occult Blood 150 H, Urine Nitrite Negative, Urine Bilirubin Negative, Urine Urobilinogen Normal, Ur Leukocyte Esterase 500 H, Urine RBC 0 SEEN, Urine WBC >100 SEEN, Ur Squamous Epith Cells 0 SEEN, Urine Bacteria 0 SEEN, Urine Mucus 0 SEEN, Urine Osmolality 385 02/08/25 20:55: Troponin T Hi Sens 2 Hr 41 H 02/08/25 22:20: Serum Osmolality 287, Magnesium 1.5, Troponin T Hi Sens 4Hr 42 H , TSH 0.167 L 02/09/25 04:37: WBC 7.9, RBC 3.58 L, Hgb 10.2 L, Hct 31.3 L, MCV 87.4, MCH 28.5, MCHC 32.6, RDW Std Deviation 45.8 H, RDW Coeff of Burke 14.2, Plt Count 225, MPV 11.6, Immature Gran % (Auto) 0.600, Neut % (Auto) 63.0, Lymph % (Auto) 19.8, M horace % (Auto) 13.1 H, Eos % (Auto) 2.9, Baso % (Auto) 0.6, Absolute Neuts (auto) 5.0, Absolute Lymphs (auto) 1.57, Nucleated RBC % 0, Sodium 135, Potassium 3.8, Chloride 104, Carbon Dioxide 20.6 L, Anion Gap 10, BUN 32 H, Creatinine 2.29 H, Estim Creat Clear Calc 17.39 L, Est GFR (MDRD) Non-Af 21 L, BUN/Creatinine Ratio 14.0, Glucose 104 H, Calcium 10.0, Phosphorus 2.9, Total Bilirubin 0.35, AST 37 H, ALT 45 H, Alkaline Phosphatase 49, Total Protein 5.2 L, Albumin 3.3 L, G lobulin 1.9 L, Albumin/Globulin Ratio 1.8, Triglycerides 98, Cholesterol 90, LDL Cholesterol, Calc 26, VLDL Cholesterol 20, HDL Cholesterol 44, Cholesterol/HDL Ratio 2.06, Free T4 2.50 H, Free T3 pg/dL 1.3 L Radiography Diagnostic Testing: Radiology Impression Chest X-Ray 02/08/25 19:15 IMPRESSION: NO ACUTE FINDINGS. Reading Location: [facility] Knee X-Ray 02/08/25 19:15 IMPRESSION: DEGENERATIVE OSTEOARTHROSIS. NO ACUTE FINDINGS. Reading Location: [facility] Rhythm Strip Rhythm Strip: Atrial flutter Rate: 83 Ectopy: None Physical Exam Const alert, oriented x3 and no apparent distress General Appearance: cooperative HEENT normocephalic, head/scalp atraumatic, moist oral mucous membranes and oropharynx normal Eyes EOMs intact bilaterally Neck supple and no JVD Lymph Lymphatic: no lymphedema noted Resp normal respiratory effort, normal air movement and clear to auscultation bilaterally Cardio regular rate, regular rhythm, S1 normal heart sound, S2 normal heart sound and no murmurs GI normal to inspection, nondistended, normoactive bowel sounds, soft to palpation, non-tender and non-distended Extremity normal capillary refill General Extremity: no tenderness to palpation of joints or extremities Skin General Skin Exam: no breakdown Neuro no focal motor deficits and no sensory deficits noted Motor Exam: general weakness Psych thought process normal and cooperative Appearance: appropriate Assessment & Plan Assessment/Plan (1) Hypercalcemia: (2) Generalized weakness: (3) Ambulatory dysfunction: PLAN: Plan #Debility and weakness due to recurrent falls * PT OT on board. Fall precautions. #UTI: Urine cultures pending. On IV ceftriaxone #MARYLOU on CKD: Creatinine is 2.29 today. Baseline creatinine is around 1.15. Was 2.52 yesterday so is trending down. Continue gentle hydration with IV fluid. #Hypercalcemia: Improving. This in the setting of known ovarian cancer. Calcium is down to 10 today. #GERD: On PPI #Heart failure with reduced ejection fraction: Has known EF of 35%. On ramipril and spironolactone #CAD, s/p CABG and then stents: On aspirin and high intensity statin #A-fib: Heart DC cardioversion in 2022. On Eliquis. 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 Not anticoagulated due to history of falls #Hypothyroidism: On Synthroid #Hypertension: on spironolactone and ramipril which are on hold due to MARYLOU DVT prophylaxis: Already on Eliquis Charges/Coding Visit Charges Inpatient E&M: 49493 Subs Hosp L2
--- NOTE | 2025-02-09 13:28 | CASEMGMT ---
[place] Assessment: Face to Face with pt for initial transition planning/care coordination assessment. RN LIZ introduced self and role at [facility], pt voices understanding and consents to assessment. Pt is A&O x4 and answers all questions appropriately at this time. Pt in the room, pt agreeable to DC planning assessment with in the room. Care providers, pharmacy, and demographics verified/updated. Strata: 3 Admitting Dx: UTI, MARYLOU, Hypercalcemia and Hyponatremia with generalized weakness and falls. PCP: mAy Specialists: Shelley Vp Of Marketing Preferred Pharmacy: [facility] Benef[facility]: yes LNOK: , Jose Angel Living Arrangements: Pt lives with in a 1 level home with 2 steps to enter. ADLs: Pt reports I with ADLs and IADLs. Transportation: Pt drives self and denies concerns with transportation. DME: Walker, Cane, Shower Chair. HHC/SNF: Previously used HHC, does not recall agency. 6 clicks = 20. Pt states no concerns with going home at time of dc. Pt states no further concerns/needs. CM to follow. Advised pt to ask CM if any further question/concerns/needs arise, voices understanding. Pt Goal: Home Plan: Home, follow for safe DC plan. Jami CODY CM
--- NOTE | 2025-02-09 13:44 | CHAPLAIN ---
Type of Pastoral Visit _x__ Initial Visit ___ Follow-up Visit ___ On-call Visit ___ General Patient Visit ___ Spiritual Assessment ___ Family Conference ___ Bereavement ___ Rapid Response ___ Code Blue ___ Other (describe below) Pastoral Care Referral From _x__ Patient ___ Family ___ Nurse ___ Physician ___ [place] ___ Chief Dispatcher ___ Other (describe below) Sacrament/Intervention _x__ Active listening ___ Anointing ___ Christianity ___ Bereavement ___ Communion ___ Aura exploration ___ _x__ Life review _x__ Prayer ___ Reconciliation ___ Sacrament of Sick ___ Supportive presence ___ Wedding ___ Other (describe below) Pastoral Comments patient and spouse of 65 years are together in the room; pt is talkative and repeats what has transpired over last hours and how much better she is feeling now; pt expects to be in hospital one more night and agrees with about coming and about staying for improved health; pt gives some life review and an accounting of her children and family; pt states that she believes in prayer and prayer is offered for her now; pt is not connected to a particular yazidism but welcomes presence and prayers for continued health
[2025-02-09 13:55] VITALS: BP 97/73; PULSE 84; RESP 16; TEMP 36.3; O2SAT 100
[2025-02-09 18:30] VITALS: BP 118/63; PULSE 84; RESP 16; TEMP 36.5; O2SAT 100
[2025-02-09 20:30] VITALS: BP 109/64; PULSE 96; RESP 18; TEMP 36.6; O2SAT 100
[2025-02-10 00:30] VITALS: BP 106/65; PULSE 82; RESP 17; TEMP 36.7; O2SAT 96
[2025-02-10 03:10] VITALS: BMI 25.4
[2025-02-10 06:55] VITALS: O2SAT 94
[2025-02-10 07:13] LABS: Hematocrit 30.8 % (37-47); Hemoglobin 9.9 g/dL (12.0-15.0); Immature Granulocytes Count 0.060 X10^3/uL (0.0-0.0); Mean Corp Hgb Conc 32.1 g/dL (32-36); Mean Corpuscular Volume 88.5 fL (81-99); Mean Platelet Vol. 11.5 fl (6.2-12.0); NRBC Flagged by Analyzer 0 % (0-5); Platelet Count 217 K/mm3 (150-450); RBC Distribution Width CV 14.4 % (11.6-14.6); RBC Distribution Width SD 46.7 fl (35.1-43.9); Red Blood Count 3.48 M/mm3 (4.2-5.4); White Blood Count 6.9 K/mm3 (4.4-11.0)
[2025-02-10 07:40] LABS: Anion Gap 10 (5-15); BUN 22 mg/dL (4-19); BUN/Creat Ratio 12.1 RATIO (10-20); Calcium,Total 9.4 mg/dL (7.6-11.0); Carbon Dioxide 20.5 mmol/L (21.0-32.0); Chloride 108 mmol/L (98-108); Estimated Creatinine Clearance 21.60 ml/min (50-250); Glucose 94 mg/dL (70-99); Potassium 4.3 mmol/L (3.3-5.1)
[2025-02-10] MEDS: Aspirin E.C. 81 MG Tablet PO (08:07)
[2025-02-10] MEDS: 0.9% Saline Lock 10 ML Syringe IV (08:07)
[2025-02-10] MEDS: Potassium Chloride Oral Tablet 20 MEQ PO (08:07)
[2025-02-10] MEDS: Lactobacillis Acidophilus 1 CAP PO ×2 (08:13→13:28)
[2025-02-10] MEDS: Niacin SA 500 MG Tablet PO (08:13)
[2025-02-10] MEDS: APIXABAN 5 MG TABLET PO (08:14)
[2025-02-10 08:18] VITALS: BP 133/68; PULSE 80; PULSE 89; RESP 16; TEMP 36.6; O2SAT 98
--- NOTE | 2025-02-10 12:31 | CASEMGMT ---
Dr Crain reports that the pt will likely DC today. ESCOBAR CM to the pt's room at this time to solidify DC planning. Pt's at the bedside. Pt states that she feels safe returning home today. Pt states that she has great support through her and her daughter who lives close. Pt denies the need for HH or OP Tx. Pt denies the need for any additional therapy or resources. Pt denies any further questions or concerns at this time.
[2025-02-10 13:04] VITALS: BP 95/61; PULSE 93; RESP 18; TEMP 36.7; O2SAT 95
--- NOTE | 2025-02-10 15:07 | PCM.DC.SUM ---
Providers Date of Admission: 02/08/25 Date of Discharge: 02/10/25 Primary Care Physician: Dr. Rolf Reyes MD Reason For Visit: UTI, MARYLOU, HYPERCALCEMIA AND HYPONATREMIA WITH GEN Diagnosis Discharge Diagnosis (1) Hypercalcemia: Status: Acute Code(s): E83.52 - Hypercalcemia (2) Generalized weakness: Status: Acute Code(s): R53.1 - Weakness (3) Ambulatory dysfunction: Status: Acute Code(s): R26.2 - Difficulty in walking, not elsewhere classified Plan #Debility and weakness due to recurrent falls PT OT on board. Fall precautions. #UTI: Urine cultures pending. On IV ceftriaxone #MARYLOU on CKD: Creatinine is 2.29 today. Baseline creatinine is around 1.15. Was 2.52 yesterday so is trending down. Continue gentle hydration with IV fluid. #Hypercalcemia: Improving. This in the setting of known ovarian cancer. Calcium is down to 10 today. #GERD: On PPI #Heart failure with reduced ejection fraction: Has known EF of 35%. On ramipril and spironolactone #CAD, s/p CABG and then stents: On aspirin and high intensity statin #A-fib: Heart DC cardioversion in 2022. On Eliquis. 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 Not anticoagulated due to history of falls #Hypothyroidism: On Synthroid #Hypertension: on spironolactone and ramipril which are on hold due to MARYLOU DVT prophylaxis: Already on Eliquis Medications at Discharge Home Medications mirabegron 50 mg tablet,extended release 24 hr 50 mg PO DAILY 10/04/21 aspirin 81 mg tablet,delayed release (Adult Low Dose Aspirin) 81 mg PO DAILY 08/11/22 niacin 500 mg tablet,extended release 24 hr 500 mg PO BID #180 tabs 01/19/23 levothyroxine 125 mcg tablet 125 mcg PO DAILY 02/01/23 sucralfate 1 gram tablet 1 g PO QACHS 02/01/23 nitroglycerin 0.4 mg sublingual tablet 0.4 mg sublingual Q5M PRN Chest Pain #25 tabs 03/15/23 calcium carbonate (Calcium 600) 600 mg PO DAILY 04/13/23 acetaminophen 500 mg capsule 500 mg PO Q6H PRN fever or pain 08/22/23 oxybutynin chloride 10 mg tablet,extended release 24 hr 10 mg PO QDAY 08/22/23 apixaban 5 mg tablet (Eliquis) 5 mg PO BID 10/02/24 amiodarone 200 mg tablet 200 mg PO BID 02/08/25 potassium chloride 20 mEq tablet,extended release(part/cryst) 20 meq PO DAILY nausea 02/08/25 ramipril 1.25 mg capsule 5 mg PO DAILY 02/08/25 rosuvastatin 40 mg tablet 40 mg PO DAILY 02/08/25 cefdinir 300 mg capsule 300 mg PO DAILY #5 caps 02/10/25 Hospital Course Operations None Procedures None Summary of Care Provided Minutes Spent on Discharge: 40 Hospital Course: Patient is an 84-year-old female with a extensive past medical history as outlined who was admitted through the ED on 02/08/2025 with complaint of generalized weakness and falls. Her symptoms are started about a week prior to admission. She says she was falling daily and frequently. She denied any head injury or falls. She also complained of mild left knee pain made worse with activity. She does have a history of A-fib and says she was scheduled to follow-up in [facility] in February for possible cardiac ablation. On admission labs were significant for UTI and also MARYLOU as creatinine was up to 2.52. Her calcium was also elevated at 11.4 and sodium was 130. Patient was on oral vitamin D at home and this was thought to be the cause of her elevated calcium. She was admitted and managed for debility and weakness due to mechanical fall in the setting of MARYLOU and UTI. Her vitamin D supplementation was discontinued and she was started on IV ceftriaxone. She was hydrated with IV fluids and her calcium trended downwards. Her creatinine continued to trend downwards and was 1.83 at time of discharge. Patient felt much better and did work well with therapy. Her urine cultures grew mixed gram-positive organisms. She was discharged home on 02/10/2025 on p.o. cefdinir for 5-day course. She is follow-up with her primary care doctor within 1 to 2 weeks. Her vitamin D supplementation was stopped at time of discharge. Of note her spironolactone was stopped due to her impaired kidney function though her low-dose lisinopril 2.5 mg daily was continued in light of her heart failure with reduced ejection fraction. Patient seen and examined prior to discharge. She felt much better and was looking forward to going home. Review of systems otherwise negative. Labs and vitals reviewed. Home medication reviewed and reconciled. Physical Exam Const alert, oriented x3, no apparent distress and average body habitus General Appearance: cooperative and comfortable Orientation / Consciousness: awake Exam Limitations: no limitations HEENT normocephalic, head/scalp atraumatic, hearing grossly normal bilaterally, moist oral mucous membranes and oropharynx normal Mouth: oral and palatal mucosa normal Eyes PERRL, EOMs intact bilaterally and conjunctivae normal Neck no lymphadenopathy, supple and no JVD Lymph Lymphatic: no lymphedema noted Resp normal respiratory effort, normal air movement, no retractions, no use of accessory muscles and clear to auscultation bilaterally Cardio regular rate, regular rhythm, S1 normal heart sound, S2 normal heart sound and no murmurs GI normal to inspection, nondistended, normoactive bowel sounds, soft to palpation, non-tender and non-distended Extremity normal to inspection, full ROM, normal capillary refill and no clubbing, cyanosis or edema General Extremity: no tenderness to palpation of joints or extremities Skin no rashes or lesions noted General Skin Exam: no breakdown Neuro oriented x3, CN's II-XII intact bilaterally, moves all extremities, no focal motor deficits and no sensory deficits noted Sensorium / Orientation: awake, alert, oriented to person, oriented to place and oriented to time Speech: speech normal Motor Exam: general weakness Psych thought process normal, cooperative and affect normal Appearance: appropriate Medical Records Data Medical Nutrition Assessment Dietitian: Malnutrition Criteria Met Start: 02/09/25 10:08 Freq: Status: Active Protocol: Document 02/09/25 10:08 SB (Rec: 02/09/25 10:09 [id number]) Nutrition Malnutrition Evidence of Yes Malnutrition Exists Malnutrition (severe Chronic ): Evidenced By Suboptimal Energy Intake (Severe),Weight Loss (Severe) Clinical Problem Chronic Disease or Condition Related Malnutrition Etiology severe related to inadequate oral intake Signs/Symptoms as evidenced by PO meeting <50% of estimated nutrition needs x 3-4 months and 13% unintentional weight loss x 4 months. Status Active Problem Recommendation Dietitian Adjust to liberal regular diet to optimize oral intake. Recommendations/ Will order 120ml EPHP 4x daily with medpass, prefers Changes vanilla. Will monitor weight trends. Weight / BMI Weight Weight: 148 lb 9.465 oz Body Mass Index (BMI) 25.4 ABG / Lab / Microbiology Data 02/10/25 05:30 02/10/25 05:30 Laboratory: Laboratory Results - last 24 hr 02/10/25 05:30: WBC 6.9, RBC 3.48 L, Hgb 9.9 L, Hct 30.8 L, MCV 88.5, MCH 28.4, MCHC 32.1, RDW Std Deviation 46.7 H, RDW Coeff of Burke 14.4, Plt Count 217, MPV 11.5, Immature Gran % (Auto) 0.900, Neut % (Auto) 61.5, Lymph % (Auto) 21.5, Addison % (Auto) 11.6 H, Eos % (Auto) 3.9, Baso % (Auto) 0.6, Absolute Neuts (auto) 4.2, Absolute Lymphs (auto) 1.48, Nucleated RBC % 0, Sodium 139, Potassium 4.3, Chloride 108, Carbon Dioxide 20.5 L, Anion Gap 10, BUN 22 H, Creatinine 1.83 H, Estim Creat Clear Calc 21.60 L, Est GFR (MDRD) Non-Af 27 L, BUN/Creatinine Ratio 12.1, Glucose 94, Calcium 9.4, Phosphorus 2.3 L Microbiology: Microbiology 02/08/25 19:40 Urine, Clean Catch Urine Culture - Final Mixed Gram Positive Organisms D/C Instructions Discharge Activity: Return to Normal Activity Weight Bearing Status: Weight bearing as tolerated Call your doctor if you observe: Fever of 101 or Higher, Shortness of breath, Dizziness, Swelling in the ankles and Chest pain DC O2, CPAP, BIPAP Needs Home O2 Discharge instructions: No DC home with Oxygen: No Meaningful Use Info Meaningful Use Meaningful Use Diagnoses (Choose all that apply): None applicable Discharge Plan Admission Admit Date/Time: 02/08/25 21:33 Primary Reason for Your Visit: hypercalcemia, UTI, MARYLOU on CKD Attending Provider: Valerie Crain Primary Care Provider: Rolf Reyes Consulting Providers: Mervin Keith Instructions Patient Instructions: Urinary Tract Infections in Women, ED UTIs Women Additional Instructions / Restrictions: spironolactone stopped due to impaired kidney function. Lisinopril low dose of 5mg continued due to HFrEF. Will need to follow up with PCP for follow up BMP within 1 week to determine resuming spironolactone Discharge Orders/Prescriptions Prescriptions: New cefdinir 300 mg capsule 300 mg PO DAILY Qty: 5 0RF Continued mirabegron 50 mg tablet extended release 24 hr 50 mg PO DAILY Patient Comments: TAKE 1 TABLET BY MOUTH EVERY DAY aspirin [Adult Low Dose Aspirin] 81 mg tablet,delayed release (DR/EC) 81 mg PO DAILY sucralfate 1 gram tablet 1 g PO QACHS Patient Comments: TAKE 1 TABLET BY MOUTH BEFORE MEALS AND AT BEDTIME levothyroxine 125 mcg tablet 125 mcg PO DAILY Patient Comments: TAKE 1 TABLET BY MOUTH ONCE DAILY. TAKE ON EMPTY STOMACH. FOR THYROID. calcium carbonate [Calcium 600] 600 mg calcium (1,500 mg) tablet 600 mg PO DAILY oxybutynin chloride 10 mg tablet extended release 24hr 10 mg PO QDAY acetaminophen 500 mg capsule 500 mg PO Q6H PRN (Reason: fever or pain) Eliquis 5 mg tablet 5 mg PO BID Rx Instructions: restart tomorrow 10/03/24 potassium chloride 20 mEq tablet,ER particles/crystals 20 meq PO DAILY ramipril 1.25 mg capsule 5 mg PO DAILY rosuvastatin 40 mg tablet 40 mg PO DAILY amiodarone 200 mg tablet 200 mg PO BID niacin 500 mg tablet extended release 24 hr 500 mg PO BID Qty: 180 3RF nitroglycerin 0.4 mg tablet, sublingual 0.4 mg SUBLINGUAL Q5M PRN (Reason: Chest Pain) Qty: 25 3RF Discontinued cholecalciferol (vitamin D3) 1,250 mcg (50,000 unit) capsule 1,250 mcg PO QWEEK spironolactone 25 mg tablet 25 mg PO QDAY Qty: 30 11RF Referrals / Follow Up: Rolf Reyes MD [Primary Care Provider, Family Practice] - 02/13/25 9:40 am Referral Note: APPOINTMENT WITH [facility] Disposition Disposition (needs filled in before D/C Order can be placed): Home, Self Care Charges/Coding Visit Charges Inpatient E&M: 43263 Disch Hosp >30min
[2025-02-12 12:08] LABS: Vitamin D 1,25-Dihydroxy 56.1 pg/mL (24.8-81.5)
== END 2025-02-10 16:04 | disposition home or self-care (01) | DRG 682 ==
LOC: ED 20:40 → PCU 21:44
PROVIDERS: Admitting Provider Internal Medicine; Emergency Provider Emergency Medicine; PCP Family Medicine; Visit Provider Student in an Organized Health Care Education/Training Program
DX: N17.9 Acute kidney failure, unspecified (principal); E43 Unspecified severe protein-calorie malnutrition; I13.0 Hypertensive heart and chronic kidney disease with heart failure and stage 1 through stage 4 chronic kidney disease, or unspecified chronic kidney disease; I50.22 Chronic systolic (congestive) heart failure; I48.20 Chronic atrial fibrillation, unspecified; E87.1 Hypo-osmolality and hyponatremia; N39.0 Urinary tract infection, site not specified; E86.0 Dehydration; N18.32 Chronic kidney disease, stage 3b; E89.0 Postprocedural hypothyroidism; E83.52 Hypercalcemia; E78.00 Pure hypercholesterolemia, unspecified; K21.9 Gastro-esophageal reflux disease without esophagitis; I25.10 Atherosclerotic heart disease of native coronary artery without angina pectoris; I95.9 Hypotension, unspecified; S80.02XA Contusion of left knee, initial encounter; W19.XXXA Unspecified fall, initial encounter; T45.2X5A Adverse effect of vitamins, initial encounter; E66.3 Overweight; N32.81 Overactive bladder; N39.3 Stress incontinence (female) (male); Z68.26 Body mass index [BMI] 26.0-26.9, adult; R26.89 Other abnormalities of gait and mobility; R53.81 Other malaise; R29.6 Repeated falls; Z68.25 Body mass index [BMI] 25.0-25.9, adult; Z79.01 Long term (current) use of anticoagulants; Z79.82 Long term (current) use of aspirin; Z79.890 Hormone replacement therapy; Z79.899 Other long term (current) drug therapy; Z87.891 Personal history of nicotine dependence; Z86.711 Personal history of pulmonary embolism; Z86.718 Personal history of other venous thrombosis and embolism; Z95.1 Presence of aortocoronary bypass graft; Z95.5 Presence of coronary angioplasty implant and graft
CPT/HCPCS: 36415; 71046; 73564; 80048; 80053; 80061; 81001; 82652; 83605; 83735; 83930; 83935; 84100; 84439; 84443; 84481; 84484; 85025; 87086; 87088; 93005; 94668; 97162; 97166; 97802; 99285; A4216